=== PATIENT | female | born 1935 | race Asian ===

== ENCOUNTER 2016-10-10 00:41 | Inpatient (IN) | payer MEDICARE, MEDICAID ==
[~2016-10-10] VITALS: Ht 160 cm; Wt 68.0 kg
[2016-10-10] VITALS (8 sets, daily range): BP systolic 123–155; BP diastolic 56–77
[2016-10-10] MEDS ORDERED: MONTELUKAST SOD10 MG ORAL (00:53)
[2016-10-10] MEDS ORDERED: LABETALOL HCL100 MG ORAL (00:53)
[2016-10-10] MEDS ORDERED: VALSARTAN-HCTZ1 EAC1 ORAL (00:53)
[2016-10-10] MEDS ORDERED: AMLODIPINE BESYL5 MG ORAL (00:53)
[2016-10-10] MEDS ORDERED: DEXILANT60 MG ORAL (00:53)
[2016-10-10] MEDS ORDERED: ATORVASTATIN CA20 MG ORAL (00:53)
[2016-10-10] MEDS ORDERED: LEVOCETIRIZINE D5 MG ORAL (00:53)
[2016-10-10] MEDS ORDERED: PHENYTOIN SODI100 MG ORAL (00:53)
[2016-10-10] MEDS ORDERED: Solu-MEDROL 125mg Inj IVP ONE (01:00)
[2016-10-10] MEDS ORDERED: Albuterol ud Inhalation HHN ONE ×2 (01:00→06:00)
[2016-10-10] MEDS ORDERED: Ipratropium 0.02% Inh Soln 2.5ml UD HHN ONE (01:00)
--- NOTE | 2016-10-10 01:02 | Emergency Room Report ---
History of Present Illness General Chief Complaint: Upper Respiratory Illness Source: Patient Present Illness HPI The patient presents with one month of upper respiratory symptomatology. She's had a productive cough wheezing. She states she saw her Dr. last couple days. In addition to that she been vomiting and feels dehydrated this time. She denies any diabetes. She is not taking medication for the wheezing. She has not been eating and getting weak. No chest pain, palpitations, rashes. No headache. Some dizziness. No depression. H/O seizures. Allergies: Coded Allergies: VANCOMYCIN (Verified Allergy, Unknown, red eyes, itchying, 10/10/16) Patient History Past Medical History: see triage record Social History: Denies: smoking Social History Narrative from home Reviewed Nursing Documentation: PMH: Agreed, PSxH: Agreed Nursing Documentation-PMH Hx Hypertension: Yes Hx Asthma: Yes Hx Seizures: Yes Review of Systems All Other Systems: negative except mentioned in HPI Physical Exam Vital Signs Date Time Temp Pulse Resp B/P Pulse Ox O2 Delivery O2 Flow Rate FiO2 10/10/16 00:41 98.8 80 18 155/77 94 Room Air Sp02 EP Interpretation: reviewed, abnormal - Low as interpreted by me General Appearance: well appearing, no apparent distress, GCS 15 Head: normocephalic Eyes: bilateral eye PERRL, bilateral eye normal inspection ENT: dry mucus membranes Neck: supple Respiratory: chest non-tender, rales - L base, wheezing, expiration, inspiration Cardiovascular #1: regular rate, rhythm Cardiovascular #2: 2+ radial (R) Gastrointestinal: normal inspection, normal bowel sounds, non tender, no mass, non-distended Musculoskeletal: back normal, gait/station normal, normal range of motion Neurologic: alert, oriented x3, grossly normal Psychiatric: mood/affect normal Skin: normal inspection, warm/dry Medical Decision Making Diagnostic Impression: Primary Impression: Pneumonia with L effusion Additional Impressions: Bronchospasm Hypokalemia UTI (urinary tract infection) Qualified Codes: N30.00 - Acute cystitis without hematuria Dehydration ER Course The patient presents with several months worth of upper respiratory symptomatology. She has evidence of bronchospasm now. Differential includes pneumonia, COPD with exacerbation, asthma, bronchiolitis amongst others. Emergent evaluation is undertaken to exclude acute myocardial infarction. Vision said to be treated with breathing treatments Symmetrel and we will evaluate her for possible pneumonia. Will also check a dilantin level. Chest x-ray shows left-sided effusion and possible infiltrate. Patient will be treated with antibiotics. EKG is unremarkable. K low. Treated with oral potassium. Improved with treatment. Admit telemetry Dr. Ferrer. Wheezing again. Will repeat albuterol. Laboratory Tests Test 10/10/16 01:30 10/10/16 01:42 Urine Color Yellow Urine Appearance Clear Urine pH 5.0 (4.5-8.0) Urine Specific [place] 1.010 (1.005-1.035) Urine Protein Negative (NEGATIVE) Urine Glucose (UA) Negative (NEGATIVE) Urine Ketones Negative (NEGATIVE) Urine Occult Blood 1+ (NEGATIVE) H Urine Nitrite Negative (NEGATIVE) Urine Bilirubin Negative (NEGATIVE) Urine Urobilinogen Normal MG/DL (0.0-1.0) Urine Leukocyte Esterase 1+ (NEGATIVE) H Urine RBC 2-4 /HPF (0 - 2) H Urine WBC 5-10 /HPF (0 - 2) H Urine Squamous Epithelial Cells Many /LPF (NONE/OCC) H Urine Bacteria Few /HPF (NONE) White Blood Count 9.0 K/UL (4.8-10.8) Red Blood Count 4.26 M/UL (4.20-5.40) Hemoglobin 13.3 G/DL (12.0-16.0) Hematocrit 38.5 % (37.0-47.0) Mean Corpuscular Volume 91 FL (80-99) Mean Corpuscular Hemoglobin 31.1 PG (27.0-31.0) H Mean Corpuscular Hemoglobin Concent 34.4 G/DL (32.0-36.0) Red Cell Distribution Width 12.6 % (11.6-14.8) Platelet Count 173 K/UL (150-450) Mean Platelet Volume 7.5 FL (6.5-10.1) Neutrophils (%) (Auto) 69.0 % (45.0-75.0) Lymphocytes (%) (Auto) 19.9 % (20.0-45.0) L Monocytes (%) (Auto) 6.9 % (1.0-10.0) Eosinophils (%) (Auto) 4.0 % (0.0-3.0) H Basophils (%) (Auto) 0.3 % (0.0-2.0) Prothrombin Time 10.2 SEC (9.30-11.50) Prothrombin Time INR 1.0 (0.9-1.1) PTT 25 SEC (23-33) Sodium Level 134 mEQ/L (135-145) L Potassium Level 3.1 mEQ/L (3.4-4.9) L Chloride Level 92 mEQ/L (98-107) L Carbon Dioxide Level 26 mEQ/L (20-30) Anion Gap 16 (5-15) H Blood Urea Nitrogen 21 mg/dL (7-23) Creatinine 0.7 mg/dL (0.5-0.9) Estimate Glomerular Filtration Rate mL/min (>60) Glucose Level 104 mg/dL (74-106) Lactic Acid Level 1.40 mmol/L (0.66-2.22) Calcium Level 7.9 mg/dL (8.6-10.2) L Total Bilirubin 0.4 mg/dL (0.0-1.2) Aspartate Amino Transferase (AST) 16 U/L (5-40) Alanine Aminotransferase (ALT) 17 U/L (3-33) Alkaline Phosphatase 84 U/L (35-104) Total Creatine Kinase 202 U/L (26-140) H Troponin I < 0.30 ng/mL (<=0.30) Pro-B-Type Natriuretic Peptide 36 pg/mL (0-450) Total Protein 6.9 g/dL (6.6-8.7) Albumin 4.0 g/dL (3.5-5.2) Globulin 2.9 g/dL Albumin/Globulin Ratio 1.3 (1.0-2.7) Phenytoin (Dilantin) Level 9.4 ug/mL (10-20) L Microbiology Date/Time Source Procedure Growth Status 10/10/16 01:45 Nasal Nares Influenza Types A,B Antigen (LOWELL) - Final Complete EKG Diagnostic Results Rate: normal Rhythm: NSR ST Segments: no acute changes Rhythm Strip Diag. Results EP Interpretation: yes Rhythm: NSR, no PVC's, no ectopy Chest X-Ray Diagnostic Results EP Interpretation: Yes Findings: no pneumothorax, other - L effusion and possible infiltrate Number of Views: 1 Status: improved Reevaluation Impression Last Vital Signs Date Time Temp Pulse Resp B/P Pulse Ox O2 Delivery O2 Flow Rate FiO2 10/10/16 16:00 98.0 69 20 123/57 97 Room Air Disposition: ADMITTED INPATIENT Condition: Serious David Balderas M.D. Oct 10, 2016 01:02
[2016-10-10 01:50] LABS: APPEARANCE,URINE CLEAR; KETONES,URINE NEGATIVE (NEGATIVE); LEUKOCYTE ESTERASE ,URINE 1+ (NEGATIVE); NITRITE,URINE NEGATIVE (NEGATIVE); PROTEIN,URINE NEGATIVE (NEGATIVE); UROBILINOGEN,URINE NORMAL MG/DL (0.0-1.0)
[2016-10-10 01:51] LABS: BACTERIA,URINE FEW /HPF; SQUAMOUS EPITHELIAL CELL,UR MANY /LPF (NONE/OCC)
[2016-10-10] MEDS ORDERED: Azithromycin 500 MG in D5W 275 ML IVPB ONE (02:00)
[2016-10-10] MEDS ORDERED: cefTRIAXone 1 GM in NS 55 ML IVPB ONE (02:00)
[2016-10-10 02:06] LABS: BASOPHILS % (AUTO) 0.3 % (0.0-2.0); LYMPHOCYTES % (AUTO) 19.9 % (20.0-45.0); MEAN CORPUSCULAR HEMOGLOBIN 31.1 PG (27.0-31.0); MEAN CORPUSCULAR HGB CONC 34.4 G/DL (32.0-36.0); MEAN CORPUSCULAR VOLUME 91 FL (80-99); MEAN PLATELET VOLUME 7.5 FL (6.5-10.1); MONOCYTES % (AUTO) 6.9 % (1.0-10.0); PLATELET COUNT 173 K/UL (150-450); RED BLOOD COUNT 4.26 M/UL (4.20-5.40); RED CELL DISTRIBUTION WIDTH 12.6 % (11.6-14.8)
[2016-10-10 02:16] LABS: PROTHROMBIN TIME 10.2 SEC (9.30-11.50)
[2016-10-10 02:20] LABS: ALANINE AMINOTRANSFERASE 17 U/L (3-33); ALBUMIN/GLOBULIN RATIO 1.3 (1.0-2.7); ANION GAP 16 (5-15); ASPARTATE AMINO TRANSFERASE 16 U/L (5-40); CALCIUM 7.9 mg/dL (8.6-10.2); CARBON DIOXIDE 26 mEQ/L (20-30); CHLORIDE 92 mEQ/L (98-107); CREATININE 0.7 mg/dL (0.5-0.9); HEMOLYSIS 60; POTASSIUM 3.1 mEQ/L (3.4-4.9); SODIUM 134 mEQ/L (135-145); TOTAL PROTEIN 6.9 g/dL (6.6-8.7); TROPONIN I < 0.30 ng/mL (<=0.30)
[2016-10-10] MEDS ORDERED: KCl 10% 40mEq/30ml liquid ORAL STA (02:24)
[2016-10-10] MEDS ORDERED: Azithromycin Inj IV ONE (02:56)
[2016-10-10] MEDS ORDERED: Promethazine/Codeine 5ml UD ORAL PRN (08:30)
[2016-10-10] MEDS ORDERED: Nitroglycerin Subl 0.4mg tab (Bottle Of 25) SL PRN (08:30)
[2016-10-10] MEDS ORDERED: Miralax 17gm pkt ORAL PRN (08:30)
[2016-10-10] MEDS ORDERED: DuoNeb 0.5-3(2.5)mg/3ml neb HHN PRN (08:30)
[2016-10-10] MEDS ORDERED: Mylanta II UD 30ml ORAL PRN (08:30)
[2016-10-10] MEDS: Phenytoin 100mg cap ORAL SCH ×3 (09:11→17:10)
[2016-10-10] MEDS: Heparin 5000 units/ml inj SUBQ SCH ×2 (09:12→20:22)
--- NOTE | 2016-10-10 10:16 | Diagnostic Imaging Report ---
Indication: COPD shortness of breath Technique: One view of the chest Comparison: none Findings: The heart is mildly enlarged. There is some atelectasis at the right lung base. No definite acute infiltrates, effusions, congestion. Left basilar opacity likely reflects prominent pericardial fat. The aorta is tortuous calcified and slightly ectatic Impression: Bibasilar atelectasis No acute process otherwise. Borderline cardiomegaly
[2016-10-10] MEDS ORDERED: Cefepime HCl 1 GM in D5W 55 ML IV SCH (11:00)
[2016-10-10] MEDS ORDERED: Vancomycin 1250mg/D5W 275ml IVPB ONE ×2 (12:00)
--- NOTE | 2016-10-10 13:28 | Consultation ---
History of Present Illness General Date patient seen: Oct 10, 2016 Chief Complaint: Upper Respiratory Illness Referring physician: Dr. Ferrer Reason for Consultation: dyspnea Present Illness HPI 81 year old female with hx of Asthma, HTN, presented to ER with CC of increasing shortness of breath, pt has taken some antibiotics without any effect. She was diagnosed to have acute exacerbation of asthma and bronchitis and is admitted for further work up. Allergies: Coded Allergies: No Known Allergies (Unverified , 10/10/16) Medication History Scheduled Amlodipine Besylate* (Amlodipine Besylate*), 5 MG ORAL DAILY, (Reported) Atorvastatin Calcium* (Atorvastatin Calcium*), 20 MG ORAL BEDTIME, (Reported) Dexlansoprazole (Dexilant), 60 MG ORAL DAILY, (Reported) Labetalol Hcl* (Normodyne*), 100 MG ORAL EVERY 12 HOURS, (Reported) Levocetirizine Dihydrochloride (Levocetirizine Dihydrochloride), 5 MG ORAL DAILY , (Reported) Montelukast Sodium* (Montelukast Sodium*), 10 MG ORAL DAILY, (Reported) Phenytoin Sodium Extended* (Phenytoin Sodium Extended*), 100 MG ORAL THREE TIMES A DAY, (Reported) Valsartan/Hydrochlorothiazide 160-12.5 (Valsartan-Hctz 160-12.5 Mg Tab), 1 TAB ORAL DAILY, (Reported) Patient History Healthcare decision maker pt alert and oriented Resuscitation status Full Code Advanced Directive on File Past Medical/Surgical History Past Medical/Surgical History: (1) HTN (hypertension) (2) Asthma Review of Systems Constitutional: Reports: no symptoms Eye: Reports: no symptoms Respiratory: Reports: no symptoms Physical Exam General Appearance: WD/WN, no apparent distress Lines, tubes and drains: peripheral, central line HEENT: normocephalic, atraumatic Neck: non-tender, normal alignment Respiratory/Chest: chest wall non-tender, lungs clear Cardiovascular/Chest: normal peripheral pulses Abdomen: normal bowel sounds Genitourinary/Rectal: normal genital exam Extremities: normal range of motion Skin Exam: normal pigmentation Last 24 Hour Vital Signs Date Time Temp Pulse Resp B/P Pulse Ox O2 Delivery O2 Flow Rate FiO2 10/10/16 11:23 98.2 73 18 124/56 94 Room Air 10/10/16 10:18 72 16 98 Room Air 10/10/16 09:10 82 127/64 10/10/16 09:10 82 127/64 10/10/16 08:13 97.9 82 18 127/64 92 Room Air 10/10/16 07:35 98.2 75 16 130/62 96 Room Air 10/10/16 06:32 98.2 75 16 130/62 96 Room Air 10/10/16 06:30 72 16 95 Room Air 10/10/16 06:30 72 16 Room Air 10/10/16 05:00 97.8 75 20 128/61 96 Room Air 10/10/16 03:00 97.8 70 16 128/58 96 Room Air 10/10/16 01:30 69 16 96 Room Air 10/10/16 01:29 72 16 Room Air 10/10/16 01:06 69 16 96 Room Air 10/10/16 01:05 69 16 Room Air 10/10/16 01:00 98.8 68 18 155/77 94 Room Air 10/10/16 01:00 68 18 Room Air 10/10/16 00:41 98.8 80 18 155/77 94 Room Air Intake and Output 10/09/16 10/10/16 19:00 07:00 Intake Total 1330 ml Balance 1330 ml Intake IV Total 1330 ml Laboratory Tests Test 10/10/16 01:30 10/10/16 01:42 Urine Color Yellow Urine Appearance Clear Urine pH 5.0 (4.5-8.0) Urine Specific [place] 1.010 (1.005-1.035) Urine Protein Negative (NEGATIVE) Urine Glucose (UA) Negative (NEGATIVE) Urine Ketones Negative (NEGATIVE) Urine Occult Blood 1+ (NEGATIVE) H Urine Nitrite Negative (NEGATIVE) Urine Bilirubin Negative (NEGATIVE) Urine Urobilinogen Normal MG/DL (0.0-1.0) Urine Leukocyte Esterase 1+ (NEGATIVE) H Urine RBC 2-4 /HPF (0 - 2) H Urine WBC 5-10 /HPF (0 - 2) H Urine Squamous Epithelial Cells Many /LPF (NONE/OCC) H Urine Bacteria Few /HPF (NONE) White Blood Count 9.0 K/UL (4.8-10.8) Red Blood Count 4.26 M/UL (4.20-5.40) Hemoglobin 13.3 G/DL (12.0-16.0) Hematocrit 38.5 % (37.0-47.0) Mean Corpuscular Volume 91 FL (80-99) Mean Corpuscular Hemoglobin 31.1 PG (27.0-31.0) H Mean Corpuscular Hemoglobin Concent 34.4 G/DL (32.0-36.0) Red Cell Distribution Width 12.6 % (11.6-14.8) Platelet Count 173 K/UL (150-450) Mean Platelet Volume 7.5 FL (6.5-10.1) Neutrophils (%) (Auto) 69.0 % (45.0-75.0) Lymphocytes (%) (Auto) 19.9 % (20.0-45.0) L Monocytes (%) (Auto) 6.9 % (1.0-10.0) Eosinophils (%) (Auto) 4.0 % (0.0-3.0) H Basophils (%) (Auto) 0.3 % (0.0-2.0) Prothrombin Time 10.2 SEC (9.30-11.50) Prothromb Time International Ratio 1.0 (0.9-1.1) Activated Partial Thromboplast Time 25 SEC (23-33) Sodium Level 134 mEQ/L (135-145) L Potassium Level 3.1 mEQ/L (3.4-4.9) L Chloride Level 92 mEQ/L (98-107) L Carbon Dioxide Level 26 mEQ/L (20-30) Anion Gap 16 (5-15) H Blood Urea Nitrogen 21 mg/dL (7-23) Creatinine 0.7 mg/dL (0.5-0.9) Estimat Glomerular Filtration Rate mL/min (>60) Glucose Level 104 mg/dL (74-106) Lactic Acid Level 1.40 mmol/L (0.66-2.22) Calcium Level 7.9 mg/dL (8.6-10.2) L Total Bilirubin 0.4 mg/dL (0.0-1.2) Aspartate Amino Transf (AST/SGOT) 16 U/L (5-40) Alanine Aminotransferase (ALT/SGPT) 17 U/L (3-33) Alkaline Phosphatase 84 U/L (35-104) Total Creatine Kinase 202 U/L (26-140) H Troponin I < 0.30 ng/mL (<=0.30) Pro-B-Type Natriuretic Peptide 36 pg/mL (0-450) Total Protein 6.9 g/dL (6.6-8.7) Albumin 4.0 g/dL (3.5-5.2) Globulin 2.9 g/dL Albumin/Globulin Ratio 1.3 (1.0-2.7) Phenytoin (Dilantin) Level 9.4 ug/mL (10-20) L Microbiology Date/Time Source Procedure Growth Status 10/10/16 01:45 Nasal Nares Influenza Types A,B Antigen (LOWELL) - Final Complete Height (Feet): 5 Height (Inches): 3.00 Weight (Pounds): 150 Medications Current Medications Medications (Trade) Dose Ordered Sig/[place] Route PRN Reason Start Time Stop Time Status Last Admin Dose Admin Acetaminophen (Tylenol) 650 mg Q4H PRN ORAL fever 10/10/16 08:30 11/09/16 08:29 Al Hydroxide/Mg Hydroxide (Mylanta II) 30 ml Q6H PRN ORAL dyspepsia 10/10/16 08:30 11/09/16 08:29 Albuterol/ Ipratropium 3 ml 3 ml EVERY 4 HOURS PRN HHN Shortness of Breath 10/10/16 08:30 10/15/16 08:29 Amlodipine Besylate (Norvasc) 5 mg DAILY ORAL 10/10/16 09:00 11/09/16 08:59 10/10/16 09:10 Atorvastatin Calcium (Lipitor) 20 mg BEDTIME ORAL 10/10/16 21:00 11/09/16 20:59 Cefepime HCl/ Dextrose (Maxipime/D5W) 55 ml @ 110 mls/hr EVERY 12 HOURS IV 10/10/16 11:00 10/17/16 10:59 10/10/16 11:39 Dextrose/ Electrolytes 1,000 ml @ 50 mls/hr Q20H IV 10/10/16 10:00 11/09/16 09:59 10/10/16 09:51 Heparin Sodium (Porcine) (Heparin 5000 units/ml) 5,000 units EVERY 12 HOURS SUBQ 10/10/16 09:00 11/09/16 08:59 10/10/16 09:12 Labetalol HCl (Normodyne) 100 mg EVERY 12 HOURS ORAL 10/10/16 09:00 11/09/16 08:59 10/10/16 09:10 Nitroglycerin (Ntg) 0.4 mg Q5M PRN SL Prn Chest Pain 10/10/16 08:30 11/09/16 08:29 Ondansetron HCl (Zofran) 4 mg Q6H PRN IVP Nausea & Vomiting 10/10/16 08:30 11/09/16 08:29 Phenytoin (Dilantin) 100 mg THREE TIMES A DAY ORAL 10/10/16 09:00 11/09/16 08:59 10/10/16 12:35 Polyethylene Glycol (Miralax) 17 gm DAILYPRN PRN ORAL Constipation 10/10/16 08:30 11/09/16 08:29 Promethazine HCl/ Codeine (Phenergan with Codeine) 5 ml Q4H PRN ORAL For Cough 10/10/16 08:30 11/09/16 08:29 Temazepam (Restoril) 15 mg HSPRN PRN ORAL Insomnia 10/10/16 08:30 10/17/16 08:29 Vancomycin HCl 1.25 gm/Dextrose 275 ml @ 183.333 mls/hr ONCE ONCE IVPB 10/10/16 12:00 10/10/16 13:29 10/10/16 12:32 Vancomycin HCl 1 ea 1 ea DAILY PRN MISC Per rx protocol 10/10/16 08:30 11/09/16 08:29 Vancomycin HCl/ Dextrose (Vancomycin/D5W) 275 ml @ 183.708 mls/hr Q24H IVPB 10/11/16 10:00 10/16/16 09:59 Assessment/Plan Problem List: (1) Acute asthma exacerbation ICD Codes: J45.901 - Unspecified asthma with (acute) exacerbation SNOMED: 873862197 (2) Bronchitis ICD Codes: J40 - Bronchitis, not specified as acute or chronic SNOMED: 43519944 (3) HTN (hypertension) ICD Codes: I10 - Essential (primary) hypertension SNOMED: 69837070 Assessment/Plan respiratory treatment check sputum Iv steroids IV antibiotics monitor BP dvt prophylaxis DEEPAK VALERIO Oct 10, 2016 13:28
[2016-10-10] MEDS: DiphenhydrAMINE 50mg/ml Inj IVP PRN (15:09)
--- NOTE | 2016-10-10 16:10 | History & Physical ---
History and Physical History & Physicial H&P dictated # [id number] JESS LONG M.D. Oct 10, 2016 16:10
[2016-10-10] MEDS ORDERED: Solu-MEDROL 125mg Inj IVP SCH (18:00)
[2016-10-10] MEDS: Albuterol ud Inhalation HHN SCH (19:45)
[2016-10-10] MEDS ORDERED: Atorvastatin 20mg tab ORAL SCH (21:00)
--- NOTE | 2016-10-10 21:19 | History and Physical Report ---
DATE OF ADMISSION: 10/10/2016 REASON FOR ADMISSION: Shortness of breath/upper respiratory infection. HISTORY OF PRESENT ILLNESS: This is an 81-year-old female with history of asthma and hemorrhagic CVA, who presented to the emergency room with shortness of breath, productive cough, and wheezing. The patient states that over the last month her asthma has been getting worse. She has a lot of allergic reactions including itchiness and congestion. She states that yesterday she was having worsening cough with shortness of breath. She does not take any albuterol for her asthma. She denies any chest pain, palpitations, or rashes. She does complain of shortness of breath. Upon arrival to the emergency room, she had a chest x-ray does nonrevealing. She was admitted for asthma exacerbation, started initially on vancomycin and cefepime. However, developed allergic reaction, so vancomycin was held. PAST MEDICAL HISTORY: Includes hemorrhagic CVA, hypertension, hyperlipidemia, GERD, asthma, and hemorrhoids. PAST SURGICAL HISTORY: Appendectomy. MEDICATIONS: Include amlodipine 5 mg daily, atorvastatin 20 mg daily, labetalol 100 mg p.o. b.i.d., Dilantin 100 mg t.i.d., valsartan/hydrochlorothiazide 160/12.5 mg, Dexilant 60 mg daily, and montelukast 10 mg daily. SOCIAL HISTORY: The patient does not smoke, drink alcohol, or use any drugs. FAMILY HISTORY: Noncontributory. PHYSICAL EXAMINATION: VITAL SIGNS: Temperature today is 98.2 degrees, pulse 73, respiratory rate 18, blood pressure 124/56, and O2 saturation 94% on room air. GENERAL: No acute distress. The patient is alert, awake, and oriented. She is coughing. HEENT: Normocephalic/atraumatic. NECK: Supple. No JVD. LUNGS: Bilateral mild wheezing expiratory. No rhonchi, crackles, rales. CARDIOVASCULAR: Regular rate and rhythm. Normal S1, S2. ABDOMEN: Soft, nontender, and nondistended. EXTREMITIES: A+1 lower extremity edema. No clubbing or cyanosis. SKIN: The patient has onychomycosis of the toenails. There is no rash. NEUROLOGIC: The patient move all extremities without any focal deficits. PSYCHIATRIC: Appropriate mood and affect. LABORATORY AND DIAGNOSTIC DATA: Chest x-ray shows no infiltrate. CBC, white count is 9, hemoglobin 13.3, and platelet count 173,000. Chemistry, sodium 134, potassium 3.1, chloride 92, CO2 26, anion gap 16, BUN 21, and creatinine 0.7. LFTs are within normal limits. Phenytoin 9.4. UA is negative. Influenza nares is negative. ASSESSMENT AND PLAN: 1. Asthma exacerbation. 2. History of cerebrovascular accident, hemorrhagic. 3. Hypertension. 4. Hyperlipidemia. 5. Gastroesophageal reflux disease. 6. Hemorrhoids. PLAN: 1. Admit the patient to inpatient telemetry for today and possibly med/surg tomorrow. 2. Influenza screen was negative. 3. We will stop her cefepime and vancomycin even there is no clear infiltrate in her lungs are all wheezy. She has no white count or fever. Therefore, I doubt patient has pneumonia. This is most likely viral in etiology. 4. Solu-Medrol 60 mg IV daily. 5. Pulmonary consult with Dr. Juares. 6. Albuterol nebulizers q.6 hours PRN sob 7. Resume home medications. 8. Podiatry to see the patient for onychomycosis. TIME SPENT: Time spent on dictation greater than 35 minutes. David Ferrer MD DR: Hayden JOB#: [id number] CC: RANULFO
[2016-10-11 00:33] VITALS: BP 144/78
[2016-10-11 04:15] VITALS: BP 143/76
[2016-10-11] MEDS ORDERED: PHENYTOIN SODI100 MG ORAL ×2 (07:30)
[2016-10-11] MEDS ORDERED: VALSARTAN-HCTZ1 EAC1 ORAL (07:30)
[2016-10-11] MEDS ORDERED: LYRICA50 MG ORAL (07:30)
[2016-10-11] MEDS ORDERED: DEXILANT60 MG ORAL (07:30)
[2016-10-11] MEDS: Albuterol ud Inhalation HHN SCH ×2 (07:55→13:24)
[2016-10-11 08:05] VITALS: BP 141/79
[2016-10-11] MEDS: Phenytoin 100mg cap ORAL SCH ×2 (08:38→14:00)
[2016-10-11] MEDS: Heparin 5000 units/ml inj SUBQ SCH (08:39)
[2016-10-11] MEDS ORDERED: Solu-MEDROL 125mg Inj IVP SCH (09:00)
[2016-10-11] MEDS ORDERED: Vancomycin 1gm/D5W 275ml IVPB SCH ×2 (10:00)
[2016-10-11] MEDS: DiphenhydrAMINE 50mg/ml Inj IVP PRN (10:32)
[2016-10-11 11:29] VITALS: BP 151/93
--- NOTE | 2016-10-11 12:16 | Pulmonology Progress Note ---
Assessment/Plan Problems: (1) Acute asthma exacerbation (2) Bronchitis (3) HTN (hypertension) Assessment/Plan improving wants to go home couldn't sleep well last night less cough, less phlegmn Subjective ROS Limited/Unobtainable: No Interval Events: less short of breath Allergies: Coded Allergies: VANCOMYCIN (Verified Allergy, Unknown, red eyes, itchying, 10/10/16) Objective Last 24 Hour Vital Signs Date Time Temp Pulse Resp B/P Pulse Ox O2 Delivery O2 Flow Rate FiO2 10/11/16 11:29 97.9 70 18 151/93 93 Room Air 10/11/16 08:38 73 141/79 10/11/16 08:38 73 141/79 10/11/16 08:05 97.9 73 18 141/79 95 Room Air 10/11/16 08:00 74 10/11/16 07:57 87 18 100 Room Air 10/11/16 07:46 84 18 95 Room Air 10/11/16 04:15 97.2 68 20 143/76 95 Room Air 10/11/16 04:00 74 10/11/16 00:33 97.9 71 20 144/78 95 Room Air 10/11/16 00:00 71 10/10/16 20:20 74 115/62 10/10/16 20:00 98.1 68 20 127/60 96 Room Air 10/10/16 20:00 68 10/10/16 19:48 69 18 100 Room Air 10/10/16 19:47 71 18 Room Air 10/10/16 19:47 65 18 99 Room Air 10/10/16 16:00 70 10/10/16 16:00 98.0 69 20 123/57 97 Room Air Intake and Output 10/10/16 10/11/16 19:00 07:00 Intake Total 1076.6 ml 810 ml Balance 1076.6 ml 810 ml Intake Oral 200 ml 260 ml IV Total 876.6 ml 550 ml # Voids 3 General Appearance: WD/WN HEENT: normocephalic, atraumatic Respiratory/Chest: chest wall non-tender, lungs clear Breasts: no masses Cardiovascular: normal peripheral pulses, normal rate Abdomen: normal bowel sounds, soft, non tender Genitourinary: normal external genitalia Extremities: no clubbing Neurologic/Psychiatric: 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 grossly normal, no motor/sensory deficits Microbiology Date/Time Source Procedure Growth Status 10/10/16 01:45 Blood Blood Culture - Preliminary NO GROWTH AFTER 24 HOURS Resulted 10/10/16 01:45 Blood Blood Culture - Preliminary NO GROWTH AFTER 24 HOURS Resulted 10/10/16 08:45 Sputum Gram Stain - Final Resulted 10/10/16 08:45 Sputum Culture - Preliminary Gram Negative Bacillus 1 Resulted 10/10/16 01:45 Nasal Nares Influenza Types A,B Antigen (LOWELL) - Final Complete Laboratory Tests 10/11/16 04:30: Urine Legionella Antigen [Pending] Current Medications Medications (Trade) Dose Ordered Sig/[place] Route PRN Reason Start Time Stop Time Status Last Admin Dose Admin Acetaminophen (Tylenol) 650 mg Q4H PRN ORAL fever 10/10/16 08:30 11/09/16 08:29 Al Hydroxide/Mg Hydroxide (Mylanta II) 30 ml Q6H PRN ORAL dyspepsia 10/10/16 08:30 11/09/16 08:29 10/11/16 04:16 Albuterol Sulfate (Proventil) 2.5 mg TIDRT HHN 10/10/16 19:00 10/15/16 18:59 10/11/16 07:55 Albuterol/ Ipratropium (DuoNeb 0.5-3(2.5)mg/3ml) 3 ml EVERY 4 HOURS PRN HHN Shortness of Breath 10/10/16 08:30 10/15/16 08:29 Amlodipine Besylate (Norvasc) 5 mg DAILY ORAL 10/10/16 09:00 11/09/16 08:59 10/11/16 08:38 Atorvastatin Calcium (Lipitor) 20 mg BEDTIME ORAL 10/10/16 21:00 11/09/16 20:59 10/10/16 20:20 Azithromycin (Zithromax) 500 mg QPM ORAL 10/11/16 16:30 10/18/16 16:29 Dextrose/ Electrolytes (D5NS W/KCl 20meq 1000ml) 1,000 ml @ 50 mls/hr Q20H IV 10/10/16 10:00 11/09/16 09:59 10/11/16 06:31 Diphenhydramine HCl (Benadryl) 25 mg Q6H PRN IVP Itching 10/10/16 15:00 11/09/16 14:59 10/11/16 10:32 Heparin Sodium (Porcine) (Heparin 5000 units/ml) 5,000 units EVERY 12 HOURS SUBQ 10/10/16 09:00 11/09/16 08:59 10/11/16 08:39 Labetalol HCl (Normodyne) 100 mg EVERY 12 HOURS ORAL 10/10/16 09:00 11/09/16 08:59 10/11/16 08:38 Methylprednisolone Sodium Succinate (Solu-MEDROL) 60 mg DAILY IVP 10/11/16 09:00 11/10/16 08:59 10/11/16 08:37 Nitroglycerin (Ntg) 0.4 mg Q5M PRN SL Prn Chest Pain 10/10/16 08:30 11/09/16 08:29 Ondansetron HCl (Zofran) 4 mg Q6H PRN IVP Nausea & Vomiting 10/10/16 08:30 11/09/16 08:29 Phenytoin (Dilantin) 100 mg THREE TIMES A DAY ORAL 10/10/16 09:00 11/09/16 08:59 10/11/16 08:38 Polyethylene Glycol (Miralax) 17 gm DAILYPRN PRN ORAL Constipation 10/10/16 08:30 11/09/16 08:29 Promethazine HCl/ Codeine (Phenergan with Codeine) 5 ml Q4H PRN ORAL For Cough 10/10/16 08:30 11/09/16 08:29 Temazepam 15 mg 15 mg HSPRN PRN ORAL Insomnia 10/10/16 08:30 10/17/16 08:29 DEEPAK VALERIO Oct 11, 2016 12:16
[2016-10-11] MEDS ORDERED: PREDNISONE5 M4 PO (12:18)
--- NOTE | 2016-10-11 13:14 | Discharge Summary ---
Discharge Summary Hospital Course Date of Admission Oct 10, 2016 at 01:58 Date of Discharge Admitting Diagnosis pneumonia HPI Megan Harmon is a 81 year old female who was admitted on Oct 10, 2016 at 01:58 for Asthma exacerbation [id number] Discharge Condition Upon Discharge: stable Discharge Disposition Patient was discharged to HOME Discharge Diagnoses: JESS LONG M.D. Oct 11, 2016 13:14
[2016-10-11] MEDS ORDERED: Azithromycin 250mg tab ORAL SCH (16:30)
--- NOTE | 2016-10-11 20:19 | Cardiology Report ---
APPROVED REPORT EKG Measurement Heart [id number] [place] [id number] Normal sinus rhythm Normal ECG
--- NOTE | 2016-10-12 03:37 | Discharge Summary ---
DATE OF ADMISSION: 10/10/2016 DATE OF DISCHARGE: 10/11/2016 REASON FOR ADMISSION: Asthma exacerbation. PROCEDURES DONE HERE: None. SIGNIFICANT FINDINGS: None. BRIEF HOSPITAL COURSE AND SUMMARY: This is an 81-year-old female with history of asthma and hemorrhagic CVA who presented to the emergency room with shortness of breath, cough, and wheezing. Her chest x-ray is unrevealing. She was started on Solu-Medrol as well as azithromycin. She initially had vancomycin, which she had allergic reaction to. Her shortness of breath has significantly improved. She is stable for discharge. DISCHARGE CONDITION: Stable. DISCHARGE INSTRUCTIONS: The patient to follow up with PCP. The patient to return to the hospital for worsening condition. The patient to ambulate as tolerated. The patient to be on albuterol as well as prednisone taper as well as Protonix. DISCHARGE DIAGNOSES: 1. Asthma exacerbation. 2. History of cerebrovascular accident. 3. Hypertension. 4. Hyperlipidemia. 5. Gastroesophageal reflux disease. TIME SPENT ON DISCHARGE: Greater than 35 minutes. David Ferrer MD DR: DIANA JOB#: [id number] CC:
== END 2016-10-11 14:58 | disposition home or self-care (01) | DRG 203 ==
LOC: EDBD 00:41 → EMR 01:16 → 2E 01:58 → EDBEDREQ 05:47 → 2E 09:14
DX: J45.901 Unspecified asthma with (acute) exacerbation (principal); E86.0 Dehydration; E87.6 Hypokalemia; K21.9 Gastro-esophageal reflux disease without esophagitis; I10 Essential (primary) hypertension; E78.5 Hyperlipidemia, unspecified; B35.1 Tinea unguium; Z86.73 Personal history of transient ischemic attack (TIA), and cerebral infarction without residual deficits; T78.40XA Allergy, unspecified, initial encounter; T36.8X5A Adverse effect of other systemic antibiotics, initial encounter; Y92.238 Other place in hospital as the place of occurrence of the external cause
CPT/HCPCS: 36415; 71010; 80053; 80185; 81003; 82164; 82550; 83605; 83880; 84484; 85025; 85610; 85730; 86710; 87040; 87070; 87181; 87205; 93005; 94640; 94664

== ENCOUNTER 2017-09-27 17:52 | Emergency (ER) | payer MEDICARE, MEDICAID ==
[~2017-09-27] VITALS: Ht 160 cm; Wt 59.0 kg
[~2017-09-27 17:52] MED LIST: AMLODIPINE BESYL5 MG ORAL; ATORVASTATIN CA20 MG ORAL; DEXILANT60 MG ORAL; LABETALOL HCL100 MG ORAL; LEVOCETIRIZINE D5 MG ORAL; LYRICA50 MG ORAL; MONTELUKAST SOD10 MG ORAL; PHENYTOIN SODI100 MG ORAL; PREDNISONE5 M4 PO; VALSARTAN-HCTZ1 EAC1 ORAL
[2017-09-27 18:15] VITALS: BP 147/76
[2017-09-27] MEDS ORDERED: Ipratropium 0.02% Inh Soln 2.5ml UD HHN ONE (18:30)
[2017-09-27] MEDS ORDERED: Albuterol ud Inhalation HHN ONE ×2 (18:30→20:15)
--- NOTE | 2017-09-27 18:34 | Emergency Room Report ---
History of Present Illness General Chief Complaint: Upper Respiratory Illness Source: Patient, EMS Present Illness HPI 82-year-old female but in by ambulance for shortness of breath for one day, history of asthma. Patient was using home nebulizer medication without much improvement. Denies recent fever, chills, chest pain. Allergies: Coded Allergies: VANCOMYCIN (Verified Allergy, Unknown, red eyes, itchying, 10/10/16) Patient History Past Medical History: asthma Past Surgical History: none Pertinent Family History: none Social History: Denies: smoking, alcohol use, drug use Now: No Immunizations: UTD Reviewed Nursing Documentation: PMH: Agreed, PSxH: Agreed Nursing Documentation-PMH Past Medical History: No History, Except For Hx Hypertension: Yes Hx Asthma: Yes Hx Cancer: No Hx Gastrointestinal Problems: No Hx Cerebrovascular Accident: Yes Hx Seizures: Yes Review of Systems All Other Systems: negative except mentioned in HPI Physical Exam Vital Signs Date Time Temp Pulse Resp B/P (MAP) Pulse Ox O2 Delivery O2 Flow Rate FiO2 09/27/17 17:49 98.4 90 22 150/90 100 Room Air Sp02 EP Interpretation: reviewed, normal General Appearance: normal inspection, well appearing, no apparent distress, alert, GCS 15, non-toxic Head: normocephalic, atraumatic Eyes: bilateral eye PERRL, bilateral eye EOMI ENT: normal ENT inspection, hearing grossly normal, normal pharynx, no angioedema, normal voice, TMs + canals normal, uvula midline, moist mucus membranes Neck: normal inspection, full range of motion, supple, thyroid normal, no meningismus, no bony tend Respiratory: normal inspection, lungs clear, normal breath sounds, no rhonchi, no respiratory distress, no retraction, no accessory muscle use, decreased breath sounds, speaking full sentences, wheezing Cardiovascular #1: regular rate, rhythm, no edema, no JVD, normal capillary refill Gastrointestinal: normal inspection, normal bowel sounds, non tender, soft, no mass, no peritonitis, non-distended, no guarding, no hernia, no pulsatile mass Genitourinary: no CVA tenderness Musculoskeletal: normal inspection, back normal, normal range of motion, no calf tenderness, pelvis stable, Sea's Sign negative Neurologic: normal inspection, alert, oriented x3, responsive, insurance investigator III-XII nml as tested, motor strength/tone normal, cerebellar normal, normal gait, speech normal Psychiatric: normal inspection, judgement/insight normal, mood/affect normal, no suicidal/homicidal ideation, no delusions Skin: normal inspection, normal color, no rash Lymphatic: normal inspection, no adenopathy Medical Decision Making Diagnostic Impression: Primary Impression: Acute asthma exacerbation Qualified Codes: J45.21 - Mild intermittent asthma with (acute) exacerbation Additional Impression: Hypokalemia ER Course patient with mild acute asthma exacerbation Vital signs stable, afebrile, not tachypnea, not tachycardic, not hypoxic Chest x-ray negative for pneumonia Improved after duo nebs and prednisone no leukocytosis or evidence of acute pneumonia mild hypokalemia was repleted orally serial vital signs stable Likely acute bronchitis as exacerbating asthma Refilled medications ER course: Patient has remained stable during ED stay. Disposition: Patient is to be discharged to home. Prescriptions given are ventolin, prednisone Patient is instructed to follow up with their primary care doctor within 1-2 days. Strict return precautions discussed with patient such as fever, chills, worsening/severe pain, nausea, vomiting, which may indicate severe illness. Patient verbalizes understanding and agrees with plan. Please note that this Emergency Department Report was dictated using [employer] developer technology software, occasionally this can lead to erroneous entry secondary to interpretation by the dictation equipment Rhythm Strip Diag. Results EP Interpretation: yes Rate: 69 Rhythm: NSR, no PVC's, no ectopy Chest X-Ray Diagnostic Results Chest X-Ray Diagnostic Results : Chest X-Ray Ordered: Yes # of Views/Limited/Complete: 1 View Indication: Shortness of Breath EP Interpretation: Yes Interpretation: no consolidation, no effusion, no pneumothorax, no acute cardiopulmonary disease Impression: No acute disease Electronically Signed by: Dr Cristina Sharif MD Last Vital Signs Date Time Temp Pulse Resp B/P (MAP) Pulse Ox O2 Delivery O2 Flow Rate FiO2 09/27/17 18:30 76 25 Room Air 09/27/17 17:49 98.4 150/90 100 Status: improved Disposition: HOME, SELF-CARE Scripts Prednisone* (PREDNISONE*) 20 Mg Tablet 20 MG ORAL DAILY for 3 Days, #6 TAB 0 Refills Prov: CRISTINA SHARIF M.D. 09/27/17 Albuterol Sulfate (VENTOLIN HFA) 18 Gm Hfa.aer.ad 1 PUFF INH EVERY 6 HOURS for cough, SOB, #18 GM 0 Refills Prov: CRISTINA SHARIF M.D. 09/27/17 CRISTINA SHARIF M.D. Sep 27, 2017 18:34
[2017-09-27 19:20] LABS: BASOPHILS % (AUTO) 0.5 % (0.0-2.0); EOSINOPHILS % (AUTO) 12.5 % (0.0-3.0); HEMOGLOBIN 13.3 G/DL (12.0-16.0); LYMPHOCYTES % (AUTO) 29.3 % (20.0-45.0); MEAN CORPUSCULAR VOLUME 90 FL (80-99); MONOCYTES % (AUTO) 8.1 % (1.0-10.0); NEUTROPHILS % (AUTO) 49.6 % (45.0-75.0); PLATELET COUNT 222 K/UL (150-450); RED BLOOD COUNT 4.34 M/UL (4.20-5.40); RED CELL DISTRIBUTION WIDTH 11.9 % (11.6-14.8); WHITE BLOOD COUNT 9.3 K/UL (4.8-10.8)
[2017-09-27 19:22] LABS: ANION GAP 8 mmol/L (5-15); BLOOD UREA NITROGEN 15 mg/dL (7-18); CALCIUM 9.1 MG/DL (8.5-10.1); CARBON DIOXIDE 31 MMOL/L (21-32); CHLORIDE 98 MMOL/L (98-107); CREATININE 0.7 MG/DL (0.55-1.30); POTASSIUM 3.3 MMOL/L (3.5-5.1); SODIUM 137 MMOL/L (136-145)
[2017-09-27 19:37] LABS: ALANINE AMINOTRANSFERASE 20 U/L (12-78); ALBUMIN 3.5 G/DL (3.4-5.0); ALBUMIN/GLOBULIN RATIO 0.9 (1.0-2.7); ALKALINE PHOSPHATASE 74 U/L (46-116); ASPARTATE AMINO TRANSFERASE 12 U/L (15-37); BILIRUBIN,TOTAL 0.2 MG/DL (0.2-1.0); CKMB 2.2 NG/ML (0.0-3.6); CREATINE KINASE 228 U/L (26-308)
[2017-09-27] MEDS ORDERED: VENTOLIN HFA18 GM INH (20:00)
[2017-09-27] MEDS ORDERED: PREDNISONE20 MG ORAL (20:00)
[2017-09-27 21:05] VITALS: BP 145/78
[2017-09-27 21:25] VITALS: BP 145/78
--- NOTE | 2017-09-28 09:05 | Diagnostic Imaging Report ---
Indication: Reason For Exam: SOB Technique: One view of the chest Comparison: 10/10/2016 Findings: No acute infiltrates, effusions, or congestion. Tortuous calcified aorta. Normal heart size. Upper mediastinum unremarkable. No significant interim change Impression: No acute process.
--- NOTE | 2017-10-08 16:57 | Cardiology Report ---
APPROVED REPORT EKG Measurement Heart [id number] [id number] Normal sinus rhythm with sinus arrhythmia Septal infarct, age undetermined Abnormal ECG
== END 2017-09-27 21:25 | disposition home or self-care (01) ==
LOC: EDBD 17:52 → EMR 18:25
DX: J45.901 Unspecified asthma with (acute) exacerbation (principal); E87.6 Hypokalemia; I10 Essential (primary) hypertension; Z86.73 Personal history of transient ischemic attack (TIA), and cerebral infarction without residual deficits
CPT/HCPCS: 36415; 71045; 80053; 82550; 82553; 84484; 85025; 93005; 94640; 94664; 99284; J7512; J8499

== ENCOUNTER 2017-10-05 09:56 | Inpatient (IN) | payer MEDICARE, MEDICAID ==
[~2017-10-05] VITALS: Ht 160 cm; Wt 66.7 kg
[~2017-10-05 09:56] MED LIST changes: +PREDNISONE20 MG ORAL; +VENTOLIN HFA18 GM INH
[2017-10-05] MEDS: Ipratropium 0.02% Inh Soln 2.5ml UD HHN SCH ×3 (10:08→10:28)
[2017-10-05] MEDS: Albuterol ud Inhalation HHN SCH ×3 (10:08→10:28)
[2017-10-05 10:45] LABS: EOSINOPHILS % (AUTO) 8.8 % (0.0-3.0); HEMATOCRIT 41.6 % (37.0-47.0); HEMOGLOBIN 14.2 G/DL (12.0-16.0); LYMPHOCYTES % (AUTO) 24.6 % (20.0-45.0); MEAN CORPUSCULAR VOLUME 91 FL (80-99); MONOCYTES % (AUTO) 8.7 % (1.0-10.0); PLATELET COUNT 242 K/UL (150-450); RED BLOOD COUNT 4.55 M/UL (4.20-5.40); RED CELL DISTRIBUTION WIDTH 12.5 % (11.6-14.8); WHITE BLOOD COUNT 10.1 K/UL (4.8-10.8)
[2017-10-05 11:08] LABS: ANION GAP 5 mmol/L (5-15); BLOOD UREA NITROGEN 14 mg/dL (7-18); CALCIUM 8.9 MG/DL (8.5-10.1); CARBON DIOXIDE 30 MMOL/L (21-32); CHLORIDE 99 MMOL/L (98-107); CREATININE 0.5 MG/DL (0.55-1.30); POTASSIUM 3.8 MMOL/L (3.5-5.1); SODIUM 134 MMOL/L (136-145)
[2017-10-05 11:24] LABS: ALANINE AMINOTRANSFERASE 24 U/L (12-78); ALBUMIN 3.6 G/DL (3.4-5.0); ALBUMIN/GLOBULIN RATIO 0.9 (1.0-2.7); ALKALINE PHOSPHATASE 93 U/L (46-116); ASPARTATE AMINO TRANSFERASE 17 U/L (15-37); BILIRUBIN,TOTAL 0.5 MG/DL (0.2-1.0); CKMB 1.8 NG/ML (0.0-3.6); CREATINE KINASE 198 U/L (26-308)
[2017-10-05 11:43] VITALS: BP_SYST 106; BP_DIAS 25; BP_DIAS 52
--- NOTE | 2017-10-05 12:16 | Diagnostic Imaging Report ---
Indication: Dyspnea Technique: XRAY Chest 1v Comparison: 09/27/2017 Findings: Heart size and mediastinal contours are stable. Atherosclerotic calcification and tortuosity of the aorta again noted. There is no definite focal airspace consolidation, pleural effusion or pneumothorax. Nodular densities in the left upper lung may be related to overlying ribs versus calcified granulomas. Remote fracture deformities of some right-sided ribs. No acute osseous abnormality is seen. Impression: No radiographic evidence of acute cardiopulmonary disease. No significant change compared to the prior exam. Stable nodular densities in the left upper lung may be related to overlying ribs or calcified granulomas.
--- NOTE | 2017-10-05 12:31 | Emergency Room Report ---
History of Present Illness General Chief Complaint: Dyspnea/Respdistress Source: Patient, Medical Record, EMS Present Illness HPI 82-year-old female brought in by EMS for shortness of breath since this morning per EMS, patient had reduced air movement and wheezing on exam Was given an albuterol and Epi injection prior to arrival with improvement She has history of asthma states home medications were working Denies recent cough, fever chills Allergies: Coded Allergies: VANCOMYCIN (Verified Allergy, Unknown, red eyes, itchying, 10/10/16) Patient History Past Medical History: asthma Past Surgical History: none Pertinent Family History: none Social History: Denies: smoking, alcohol use, drug use Now: No Immunizations: UTD Reviewed Nursing Documentation: PMH: Agreed, PSxH: Agreed Nursing Documentation-PMH Hx Hypertension: Yes Hx Asthma: Yes Hx Cancer: No Hx Gastrointestinal Problems: No Hx Cerebrovascular Accident: Yes Hx Seizures: Yes Review of Systems All Other Systems: negative except mentioned in HPI Physical Exam Vital Signs Date Time Temp Pulse Resp B/P (MAP) Pulse Ox O2 Delivery O2 Flow Rate FiO2 10/05/17 09:50 72 20 98 Facial 15.0 35 10/05/17 09:52 98.1 155/80 Sp02 EP Interpretation: reviewed, normal General Appearance: normal inspection, well appearing, alert, GCS 15, non-toxic , mild distress Head: normocephalic, atraumatic Eyes: bilateral eye PERRL, bilateral eye EOMI ENT: normal ENT inspection, hearing grossly normal, normal pharynx, no angioedema, normal voice, TMs + canals normal, uvula midline, moist mucus membranes Neck: normal inspection, full range of motion, supple, thyroid normal, no meningismus, no bony tend Respiratory: normal inspection, no retraction, no accessory muscle use, speaking full sentences, wheezing Cardiovascular #1: regular rate, rhythm, no edema, no JVD, normal capillary refill Gastrointestinal: normal inspection, normal bowel sounds, non tender, soft, no mass, no peritonitis, non-distended, no guarding, no hernia, no pulsatile mass Genitourinary: no CVA tenderness Musculoskeletal: normal inspection, back normal, normal range of motion, no calf tenderness, pelvis stable, Sea's Sign negative Neurologic: normal inspection, alert, oriented x3, responsive, sorter upholstery parts III-XII nml as tested, motor strength/tone normal, cerebellar normal, normal gait, speech normal Psychiatric: normal inspection, judgement/insight normal, mood/affect normal, no suicidal/homicidal ideation, no delusions Skin: normal inspection, normal color, no rash Lymphatic: normal inspection, no adenopathy Medical Decision Making Diagnostic Impression: Primary Impression: Acute asthma exacerbation Qualified Codes: J45.41 - Moderate persistent asthma with (acute) exacerbation ER Course 82-year-old female with asthma exacerbation Vital signs stable, not hypoxic Was wheezing on arrival likely improvement from initial assessment by EMS Improved further with BiPAP, albuterol and magnesium ABG shows normal pH, mild hypercapnia at 50, no hypoxia Labs: No leukocytosis, no metabolic abnormalities ECG is nonischemic Chest x-ray does not show pneumonia or other infectious process Admission offer to Dr. Ferrer as previous admitting hospitalist in Oct 2016 at noon. he responded at 1230pm to endorsed to Dr Garcia which was done EKG Diagnostic Results Rate: normal Rhythm: NSR ST Segments: no acute changes ASA given to the pt in ED: No Rhythm Strip Diag. Results EP Interpretation: yes Rate: 65 Rhythm: NSR, no PVC's, no ectopy Chest X-Ray Diagnostic Results Chest X-Ray Diagnostic Results : Chest X-Ray Ordered: Yes # of Views/Limited/Complete: 1 View Indication: Shortness of Breath EP Interpretation: Yes Interpretation: no consolidation, no effusion, no pneumothorax, no acute cardiopulmonary disease Impression: No acute disease Electronically Signed by: Dr Cristina Sharif MD Last Vital Signs Date Time Temp Pulse Resp B/P (MAP) Pulse Ox O2 Delivery O2 Flow Rate FiO2 10/05/17 12:15 98.1 68 18 106/52 97 Bi-pap 15.0 35 Status: improved Disposition: ADMITTED INPATIENT Condition: Serious Referrals: NON PHYSICIAN (PCP) CRISTINA SHARIF M.D. Oct 05, 2017 12:31
[2017-10-05 13:00] VITALS: BP 142/87
[2017-10-05] MEDS ORDERED: LORazepam Inj 2mg/ml 1ml IV PRN (13:00)
[2017-10-05] MEDS ORDERED: Albuterol/Ipratropium 3ml neb HHN PRN (13:00)
[2017-10-05] MEDS ORDERED: Ketorolac 30mg Inj IV PRN (13:00)
[2017-10-05] MEDS ORDERED: Promethazine/Codeine 5ml UD ORAL PRN (13:00)
[2017-10-05] MEDS ORDERED: Nitroglycerin Subl 0.4mg tab SL PRN (13:00)
[2017-10-05] MEDS ORDERED: Morphine Sulfate 2mg/ml Inj IVP PRN (13:00)
[2017-10-05 13:02] LABS: APPEARANCE,URINE CLEAR; BILIRUBIN, URINE NEGATIVE (NEGATIVE); COLOR,URINE PALE YELLOW; GLUCOSE, URINE (UA) 1+ (NEGATIVE); KETONES,URINE NEGATIVE (NEGATIVE); LEUKOCYTE ESTERASE ,URINE NEGATIVE (NEGATIVE); NITRITE,URINE NEGATIVE (NEGATIVE); PH,URINE 7 (4.5-8.0); PROTEIN,URINE NEGATIVE (NEGATIVE); UROBILINOGEN,URINE NORMAL MG/DL (0.0-1.0)
[2017-10-05] MEDS ORDERED: Piperacillin/Tazobactam 2.25 GM in D5W 55 ML IV SCH (15:00)
[2017-10-05] MEDS ORDERED: Pneumococcal Vaccine 25mcg/0.5ml IM ONE (15:00)
[2017-10-05] MEDS ORDERED: Flu Vaccine Quadrivalent 0.5ml IM ONE (15:00)
[2017-10-05] MEDS: Piperacillin/Tazobactam 2.25 GM in NS 55 ML IV SCH ×2 (15:44→21:18)
[2017-10-05 16:00] VITALS: BP 131/69
[2017-10-05] MEDS: Solu-MEDROL 125mg Inj IV SCH (17:29)
--- NOTE | 2017-10-05 18:22 | History & Physical ---
History and Physical History & Physicial Dictated for Int Med-Dr Garcia no. [id number]. RICKIE SERRATO Oct 05, 2017 18:21
[2017-10-05 20:00] VITALS: BP 133/67
[2017-10-05] MEDS ORDERED: Atorvastatin 20mg tab ORAL SCH (21:00)
[2017-10-05] MEDS: Theophylline ER 100mg ORAL SCH (21:20)
[2017-10-05] MEDS: Lyrica 50mg cap ORAL SCH (21:20)
[2017-10-05] MEDS: Heparin 5000 units/ml inj SUBQ SCH (21:21)
--- NOTE | 2017-10-05 21:56 | Consultation ---
History of Present Illness General Date patient seen: Oct 05, 2017 Chief Complaint: Dyspnea/Respdistress Referring physician: Dr. levy Reason for Consultation: dyspnea Present Illness HPI 82-year-old female wth hx of asthma, HTN, brought in by EMS for shortness of breath by EMS, patient had reduced air movement and wheezing on exam Was given an albuterol and Epi injection prior to arrival with some improvement. she was in respiratory distress and needed to be admitted to [facility] for further management. Allergies: Coded Allergies: VANCOMYCIN (Verified Allergy, Unknown, red eyes, itchying, 10/10/16) Medication History Scheduled Albuterol Sulfate (Ventolin Hfa), 1 PUFF INH EVERY 6 HOURS Amlodipine Besylate* (Amlodipine Besylate*), 5 MG ORAL DAILY, (Reported) Aspirin* (Aspir 81*), 81 MG ORAL DAILY, (Reported) Atorvastatin Calcium* (Atorvastatin Calcium*), 20 MG ORAL BEDTIME, (Reported) Clopidogrel* (Clopidogrel*), 75 MG ORAL DAILY, (Reported) Dexlansoprazole (Dexilant), 60 MG ORAL QHS, (Reported) Labetalol Hcl* (Normodyne*), 100 MG ORAL EVERY 12 HOURS, (Reported) Levocetirizine Dihydrochloride (Levocetirizine Dihydrochloride), 5 MG ORAL DAILY , (Reported) Montelukast Sodium* (Montelukast Sodium*), 10 MG ORAL DAILY, (Reported) Phenytoin Sodium Extended* (Phenytoin Sodium Extended*), 100 MG ORAL DAILY, ( Reported) Phenytoin Sodium Extended* (Phenytoin Sodium Extended*), 200 MG ORAL BEDTIME, ( Reported) Prednisone (Prednisone), 20 MG PO DAILY Prednisone* (Prednisone*), 20 MG ORAL DAILY Pregabalin (Lyrica), 50 MG ORAL Q12HR, (Reported) Valsartan/Hydrochlorothiazide 160-12.5 (Valsartan-Hctz 160-12.5 Mg Tab), 1 TAB ORAL Q12HR, (Reported) Patient History Healthcare decision maker Resuscitation status Full Code Advanced Directive on File N/A Past Medical/Surgical History Past Medical/Surgical History: (1) HTN (hypertension) (2) Asthma Review of Systems Respiratory: Reports: wheezing All Other Systems: negative except mentioned in HPI Physical Exam General Appearance: WD/WN Lines, tubes and drains: peripheral HEENT: normocephalic, atraumatic, PERRL Neck: non-tender Respiratory/Chest: chest wall non-tender, lungs clear Breasts: no masses Cardiovascular/Chest: normal rate Abdomen: normal bowel sounds, non tender Genitourinary/Rectal: normal genital exam Extremities: normal range of motion, no calf tenderness Skin Exam: normal pigmentation Neurologic: career development facilitator II-XII grossly normal Last 24 Hour Vital Signs Date Time Temp Pulse Resp B/P (MAP) Pulse Ox O2 Delivery O2 Flow Rate FiO2 10/05/17 16:00 65 10/05/17 16:00 97.3 65 20 131/69 98 Nasal Cannula 2.0 10/05/17 13:00 98.2 64 20 142/87 96 Nasal Cannula 2.0 10/05/17 12:15 98.1 68 18 106/52 97 Bi-pap 15.0 35 10/05/17 12:13 15.0 35 10/05/17 11:44 65 18 Bi-pap 15.0 35 10/05/17 11:43 98.1 68 20 106/52 97 Bi-pap 15.0 35 10/05/17 10:50 65 18 98 Bi-pap 15.0 35 10/05/17 10:30 68 16 99 Facial 15.0 35 10/05/17 09:55 35 10/05/17 09:55 77 22 99 Bi-pap 15.0 35 10/05/17 09:55 77 22 Bi-pap 15.0 35 10/05/17 09:52 98.1 78 16 155/80 98 Non-Rebreather 10/05/17 09:50 72 20 98 Facial 15.0 35 Laboratory Tests Test 10/05/17 10:13 10/05/17 11:25 10/05/17 19:13 White Blood Count 10.1 K/UL (4.8-10.8) Red Blood Count 4.55 M/UL (4.20-5.40) Hemoglobin 14.2 G/DL (12.0-16.0) Hematocrit 41.6 % (37.0-47.0) Mean Corpuscular Volume 91 FL (80-99) Mean Corpuscular Hemoglobin 31.2 PG (27.0-31.0) H Mean Corpuscular Hemoglobin Concent 34.2 G/DL (32.0-36.0) Red Cell Distribution Width 12.5 % (11.6-14.8) Platelet Count 242 K/UL (150-450) Mean Platelet Volume 7.3 FL (6.5-10.1) Neutrophils (%) (Auto) 57.0 % (45.0-75.0) Lymphocytes (%) (Auto) 24.6 % (20.0-45.0) Monocytes (%) (Auto) 8.7 % (1.0-10.0) Eosinophils (%) (Auto) 8.8 % (0.0-3.0) H Basophils (%) (Auto) 1.0 % (0.0-2.0) Urine Color Pale yellow Urine Appearance Clear Urine pH 7 (4.5-8.0) Urine Specific [place] 1.005 (1.005-1.035) Urine Protein Negative (NEGATIVE) Urine Glucose (UA) 1+ (NEGATIVE) H Urine Ketones Negative (NEGATIVE) Urine Occult Blood Negative (NEGATIVE) Urine Nitrite Negative (NEGATIVE) Urine Bilirubin Negative (NEGATIVE) Urine Urobilinogen Normal MG/DL (0.0-1.0) Urine Leukocyte Esterase Negative (NEGATIVE) Urine RBC 0-2 /HPF (0 - 2) Urine WBC 0 /HPF (0 - 2) Urine Squamous Epithelial Cells Occasional /LPF Urine Bacteria Occasional /HPF (NONE) Sodium Level 134 MMOL/L (136-145) L Potassium Level 3.8 MMOL/L (3.5-5.1) Chloride Level 99 MMOL/L (98-107) Carbon Dioxide Level 30 MMOL/L (21-32) Anion Gap 5 mmol/L (5-15) Blood Urea Nitrogen 14 mg/dL (7-18) Creatinine 0.5 MG/DL (0.55-1.30) L Estimat Glomerular Filtration Rate mL/min (>60) Glucose Level 189 MG/DL (74-106) H Calcium Level 8.9 MG/DL (8.5-10.1) Total Bilirubin 0.5 MG/DL (0.2-1.0) Aspartate Amino Transf (AST/SGOT) 17 U/L (15-37) Alanine Aminotransferase (ALT/SGPT) 24 U/L (12-78) Alkaline Phosphatase 93 U/L (46-116) Total Creatine Kinase 198 U/L (26-308) Creatine Kinase MB 1.8 NG/ML (0.0-3.6) Creatine Kinase MB Relative Index 0.9 Troponin I 0.000 ng/mL (0.000-0.056) Pro-B-Type Natriuretic Peptide 37 pg/mL (0-125) Total Protein 7.6 G/DL (6.4-8.2) Albumin 3.6 G/DL (3.4-5.0) Globulin 4.0 g/dL Albumin/Globulin Ratio 0.9 (1.0-2.7) L Arterial Blood pH 7.358 (7.350-7.450) 7.413 (7.350-7.450) Arterial Blood Partial Pressure CO2 56.1 mmHg (35.0-45.0) *H 44.6 mmHg (35.0-45.0) Arterial Blood Partial Pressure O2 110.3 mmHg (75.0-100.0) H 113.7 mmHg (75.0-100.0) H Arterial Blood HCO3 30.8 mmol/L (22.0-26.0) H 27.8 mmol/L (22.0-26.0) H Arterial Blood Oxygen Saturation 97.7 % (92.0-98.0) 98.1 % (92.0-98.0) H Arterial Blood Base Excess 4.0 2.7 Mk Test Positive Positive Height (Feet): 5 Height (Inches): 3.00 Weight (Pounds): 147 Medications Current Medications Medications (Trade) Dose Ordered Sig/[place] Route PRN Reason Start Time Stop Time Status Last Admin Dose Admin Albuterol/ Ipratropium (Albuterol/ Ipratropium) 3 ml Q4H PRN HHN dyspnea 10/05/17 13:00 10/10/17 12:59 Amlodipine Besylate (Norvasc) 5 mg DAILY ORAL 10/06/17 09:00 11/05/17 08:59 Atorvastatin Calcium (Lipitor) 20 mg BEDTIME ORAL 10/05/17 21:00 11/04/17 20:59 10/05/17 21:20 Dextrose (Dextrose 50%) STAT PRN IV Hypoglycemia 10/05/17 13:00 11/04/17 12:59 Heparin Sodium (Porcine) (Heparin 5000 units/ml) 5,000 units EVERY 12 HOURS SUBQ 10/05/17 21:00 11/04/17 20:59 10/05/17 21:21 Ketorolac Tromethamine (Toradol 30mg) 30 mg Q8H PRN IV moderate pain 4-6 10/05/17 13:00 10/10/17 12:59 Lorazepam (Ativan 2mg/ml 1ml) 0.5 mg Q4H PRN IV For Anxiety 10/05/17 13:00 10/12/17 12:59 Methylprednisolone Sodium Succinate (Solu-MEDROL) 60 mg EVERY 6 HOURS IV 10/05/17 18:00 11/04/17 17:59 10/05/17 17:29 Morphine Sulfate (Morphine Sulfate) 2 mg Q4H PRN IVP severe pain 7-10 10/05/17 13:00 10/12/17 12:59 Nitroglycerin (Ntg) 0.4 mg Q5M X 3 DOSES PRN SL Prn Chest Pain 10/05/17 13:00 11/04/17 12:59 Ondansetron HCl (Zofran) 4 mg Q6H PRN IVP Nausea & Vomiting 10/05/17 13:00 11/04/17 12:59 Phenytoin (Dilantin) 100 mg DAILY ORAL 10/06/17 09:00 11/05/17 08:59 Piperacillin Sod/ Tazobactam Sod 2.25 gm/Sodium Chloride 55 ml @ 110 mls/hr EVERY 8 HOURS IV 10/05/17 16:00 10/12/17 15:59 10/05/17 21:18 Pregabalin (Lyrica) 50 mg Q12HR ORAL 10/05/17 21:00 11/04/17 20:59 10/05/17 21:20 Promethazine HCl/ Codeine (Phenergan with Codeine) 5 ml Q6H PRN ORAL cough 10/05/17 13:00 11/04/17 12:59 Temazepam (Restoril) 15 mg HSPRN PRN ORAL Insomnia 10/05/17 13:00 10/12/17 12:59 Theophylline (Fabrice-Dur) 100 mg EVERY 12 HOURS ORAL 10/05/17 21:00 11/04/17 20:59 10/05/17 21:20 Assessment/Plan Problem List: (1) Acute asthma exacerbation ICD Codes: J45.901 - Unspecified asthma with (acute) exacerbation SNOMED: 698918554 Qualifiers: Qualified Codes: J45.41 - Moderate persistent asthma with (acute) exacerbation (2) Bronchitis ICD Codes: J40 - Bronchitis, not specified as acute or chronic SNOMED: 85858414 (3) HTN (hypertension) ICD Codes: I10 - Essential (primary) hypertension SNOMED: 86164539 Assessment/Plan respiratory treatment IV steroids/ IV abx check sputum f/u pulse oximeter monitor BP DEEPAK VALERIO Oct 05, 2017 21:56
[2017-10-05] MEDS ORDERED: Piperacillin/Tazobactam 2.25 GM in NS 55 ML IV SCH (22:00)
[2017-10-06] VITALS: BP 124/66
[2017-10-06] MEDS: Solu-MEDROL 125mg Inj IV SCH ×4 (00:02→18:36)
[2017-10-06 04:00] VITALS: BP 163/88
[2017-10-06] MEDS: Piperacillin/Tazobactam 2.25 GM in NS 55 ML IV SCH ×3 (05:19→22:03)
[2017-10-06 06:03] LABS: BASOPHILS % (AUTO) 0.2 % (0.0-2.0); EOSINOPHILS % (AUTO) 0.1 % (0.0-3.0); HEMATOCRIT 40.3 % (37.0-47.0); HEMOGLOBIN 13.8 G/DL (12.0-16.0); LYMPHOCYTES % (AUTO) 13.4 % (20.0-45.0); MEAN CORPUSCULAR VOLUME 92 FL (80-99); MONOCYTES % (AUTO) 1.5 % (1.0-10.0); NEUTROPHILS % (AUTO) 84.8 % (45.0-75.0); PLATELET COUNT 205 K/UL (150-450); RED BLOOD COUNT 4.39 M/UL (4.20-5.40); RED CELL DISTRIBUTION WIDTH 12.3 % (11.6-14.8); WHITE BLOOD COUNT 7.4 K/UL (4.8-10.8)
[2017-10-06 06:20] LABS: ANION GAP 3 mmol/L (5-15); BLOOD UREA NITROGEN 16 mg/dL (7-18); CALCIUM 8.8 MG/DL (8.5-10.1); CARBON DIOXIDE 34 MMOL/L (21-32); CHLORIDE 100 MMOL/L (98-107); CREATININE 0.8 MG/DL (0.55-1.30); POTASSIUM 3.9 MMOL/L (3.5-5.1); SODIUM 137 MMOL/L (136-145)
[2017-10-06 08:00] VITALS: BP 151/79
[2017-10-06] MEDS: Theophylline ER 100mg ORAL SCH ×2 (08:57→22:13)
[2017-10-06] MEDS: Lyrica 50mg cap ORAL SCH ×2 (08:58→22:02)
[2017-10-06] MEDS: Heparin 5000 units/ml inj SUBQ SCH ×2 (08:59→22:04)
[2017-10-06] MEDS ORDERED: Phenytoin 100mg cap ORAL SCH ×3 (09:00→21:00)
[2017-10-06] MEDS ORDERED: ASPIR 8181 MG ORAL (09:58)
[2017-10-06] MEDS ORDERED: CLOPIDOGREL75 MG ORAL (09:58)
[2017-10-06 12:00] VITALS: BP 139/69
--- NOTE | 2017-10-06 12:56 | History and Physical Report ---
DATE OF ADMISSION: 10/05/2017 CHIEF COMPLAINT: The patient is an 82-year-old female, who presents with chief complaint of shortness of breath. HISTORY OF PRESENT ILLNESS: The patient was admitted to [facility] from for asthma exacerbation. Please see history and physical and discharge summary dictated at that time. The patient complains of two-day history of shortness of breath. The patient presented to [facility] today, 10/05/2017. The patient complained of one-day history of shortness of breath. The patient denied cough or fever. The patient was admitted for probable asthma exacerbation. REVIEW OF SYSTEMS: CONSTITUTIONAL: The patient denies weight loss or weight gain. The patient denies fevers or chills. HEENT: The patient denies ear or throat pain. The patient denies headache. CARDIOVASCULAR: The patient denies palpitations or chest pain. CHEST: The patient complains of shortness of breath as above. The patient complains of wheezes. ABDOMEN: The patient denies nausea, vomiting, diarrhea, or constipation. GENITOURINARY: The patient denies dysuria or increased frequency of urination. NEUROMUSCULAR: The patient denies seizures or generalized weakness. PAST MEDICAL HISTORY: Significant for: 1. Asthma. 2. Hemorrhagic cerebrovascular accident. 3. Hypertension. 4. Hypercholesterolemia. 5. Gastroesophageal reflux disease. 6. Hemorrhoids. PAST SURGICAL HISTORY: Significant for appendectomy. CURRENT MEDICATIONS: 1. Albuterol metered-dose inhaler two puffs p.o. q.6 hours p.r.n. 2. Amlodipine 5 mg p.o. daily. 3. Atorvastatin 20 mg p.o. nightly. 4. Dexilant 60 mg p.o. daily. 5. Labetalol 100 mg one tablet p.o. twice daily. 6. Zyrtec 5 mg p.o. daily. 7. Singulair 10 mg p.o. daily. 8. Dilantin 100 mg p.o. daily, Dilantin 100 mg 2 tablets p.o. nightly. 9. Prednisone 20 mg p.o. daily. 10. Lyrica 50 mg p.o. twice daily. 11. Valsartan/hydrochlorothiazide 160/12.5 one tablet p.o. twice daily. ALLERGIES: VANCOMYCIN. SOCIAL HISTORY: The patient is single. The patient denies tobacco or alcohol use. PHYSICAL EXAMINATION: VITAL SIGNS: Temperature 98.1, respirations 18, pulse 68, blood pressure 106/52. GENERAL: The patient is a well-developed and well-nourished female, who is in moderate respiratory distress. HEENT: Eyes, pupils equal and responsive to light and accommodation. Extraocular movements are intact. NECK: Supple without lymphadenopathy. CHEST: Diffuse wheezes bilaterally with crackles in bilateral bases. CARDIOVASCULAR: Regular rhythm and rate. S1, S2 normal without murmurs, rubs, or gallops. ABDOMEN: Soft, nontender, nondistended. Positive bowel sounds. No evidence of hepatosplenomegaly. Currently, no rebound or guarding noted. EXTREMITIES: Negative for clubbing, cyanosis, or edema. RECTAL: Refused. GENITAL: Refused. NEUROLOGIC: Cranial nerves II trough XII are grossly intact without focal deficits. Motor strength is 5/5 bilaterally intact. Deep tendon reflexes are 2+, plantar. LABORATORY STUDIES: WBC 10.1, hemoglobin 14.2, hematocrit 41.6, platelets 142,000. Sodium 134, potassium 3.8, chloride 99, CO2 30, BUN 14, creatinine 0.5, glucose 189. Troponin 0.0. Chest x-ray revealed no evidence of acute cardiopulmonary disease. Arterial blood gases revealed pH 7.358, pCO2 56.1, pO2 110.3, bicarbonate 30.8, oxygen saturation 97.7, and base excess positive 4.0. ASSESSMENT: This is an 82-year-old female with: 1. Shortness of breath. 2. Probable asthma exacerbation. 3. Cerebrovascular disease. 4. Hypertension. 5. Hypercholesterolemia. 6. Gastroesophageal reflux disease. TREATMENT: 1. Shortness of breath/asthma exacerbation. Pulmonary consultation has been obtained with Dr. Luis A Juares. The patient has been placed empirically on intravenous Zosyn. The patient is also receiving Solu-Medrol intravenously q.6 hours. The patient is currently on DuoNeb nebulized q.4 hours p.r.n. 2. Cerebrovascular disease. The patient is status post hemorrhagic cerebrovascular accident. 3. Hypertension. Continue amlodipine and valsartan/hydrochlorothiazide as above. 4. Hypercholesterolemia. Continue atorvastatin as above. 5. Gastroesophageal reflux disease. Continue Dexilant as above. 6. History of seizure disorder. Continue Dilantin as above. Hank Toure M.D. DR: Roxy JOB#: [id number] CC:
--- NOTE | 2017-10-06 13:25 | Pulmonology Progress Note ---
Assessment/Plan Problems: (1) Acute asthma exacerbation (2) Bronchitis (3) HTN (hypertension) Assessment/Plan improving taper steroids check electroltyes titrate fio2 check cultures dvt prophylaxis med/surg Subjective ROS Limited/Unobtainable: No Constitutional: Reports: no symptoms HEENT: Repors: no symptoms Allergies: Coded Allergies: VANCOMYCIN (Verified Allergy, Unknown, red eyes, itchying, 10/10/16) Objective Last 24 Hour Vital Signs Date Time Temp Pulse Resp B/P (MAP) Pulse Ox O2 Delivery O2 Flow Rate FiO2 10/06/17 12:10 77 18 99 Nasal Cannula 2.0 28 10/06/17 12:05 75 20 97 Nasal Cannula 2.0 28 10/06/17 12:00 97.0 76 20 139/69 98 Nasal Cannula 2.0 10/06/17 12:00 88 10/06/17 08:57 79 151/79 10/06/17 08:00 97.7 83 20 151/79 99 Nasal Cannula 2.0 10/06/17 08:00 79 10/06/17 05:11 83 10/06/17 04:00 96.3 82 18 163/88 97 Nasal Cannula 2.0 10/06/17 00:00 97.9 73 17 124/66 98 Nasal Cannula 2.0 10/05/17 22:40 69 19 97 Facial 35 10/05/17 22:00 15.0 35 10/05/17 20:00 97.9 69 20 133/67 98 Nasal Cannula 2.0 10/05/17 20:00 69 10/05/17 16:00 65 10/05/17 16:00 97.3 65 20 131/69 98 Nasal Cannula 2.0 Intake and Output 10/05/17 10/06/17 19:00 07:00 Intake Total 395 ml 110 ml Output Total 800 ml Balance -405 ml 110 ml Intake Oral 240 ml IV Total 55 ml 110 ml Other 100 ml Output Urine Total 800 ml # Voids 1 General Appearance: WD/WN HEENT: normocephalic Breasts: no masses Cardiovascular: normal peripheral pulses Abdomen: normal bowel sounds, no organomegaly Genitourinary: normal external genitalia Extremities: no clubbing Laboratory Tests 10/05/17 19:13: Arterial Blood pH 7.413, Arterial Blood Partial Pressure CO2 44.6, Arterial Blood Partial Pressure O2 113.7H, Arterial Blood HCO3 27.8H, Arterial Blood Oxygen Saturation 98.1H, Arterial Blood Base Excess 2.7, Mk Test Positive 10/06/17 04:55: White Blood Count 7.4, Red Blood Count 4.39, Hemoglobin 13.8, Hematocrit 40.3, Mean Corpuscular Volume 92, Mean Corpuscular Hemoglobin 31.5H, Mean Corpuscular Hemoglobin Concent 34.3, Red Cell Distribution Width 12.3, Platelet Count 205, Mean Platelet Volume 7.5, Neutrophils (%) (Auto) 84.8H, Lymphocytes (%) (Auto) 13.4L, Monocytes (%) (Auto) 1.5, Eosinophils (%) (Auto) 0.1, Basophils (%) (Auto ) 0.2, Sodium Level 137, Potassium Level 3.9, Chloride Level 100, Carbon Dioxide Level 34H, Anion Gap 3L, Blood Urea Nitrogen 16, Creatinine 0.8#, Estimat Glomerular Filtration Rate , Glucose Level 131H, Calcium Level 8.8 Current Medications Medications (Trade) Dose Ordered Sig/Mecca Route PRN Reason Start Time Stop Time Status Last Admin Dose Admin Albuterol/ Ipratropium (Albuterol/ Ipratropium) 3 ml Q4H PRN HHN dyspnea 10/05/17 13:00 10/10/17 12:59 10/06/17 12:05 Amlodipine Besylate (Norvasc) 5 mg DAILY ORAL 10/06/17 09:00 11/05/17 08:59 10/06/17 08:57 Atorvastatin Calcium (Lipitor) 20 mg BEDTIME ORAL 10/05/17 21:00 11/04/17 20:59 10/05/17 21:20 Dextrose (Dextrose 50%) STAT PRN IV Hypoglycemia 10/05/17 13:00 11/04/17 12:59 Heparin Sodium (Porcine) (Heparin 5000 units/ml) 5,000 units EVERY 12 HOURS SUBQ 10/05/17 21:00 11/04/17 20:59 10/06/17 08:59 Ketorolac Tromethamine (Toradol 30mg) 30 mg Q8H PRN IV moderate pain 4-6 10/05/17 13:00 10/10/17 12:59 Lorazepam (Ativan 2mg/ml 1ml) 0.5 mg Q4H PRN IV For Anxiety 10/05/17 13:00 10/12/17 12:59 Methylprednisolone Sodium Succinate (Solu-MEDROL) 60 mg EVERY 6 HOURS IV 10/05/17 18:00 11/04/17 17:59 10/06/17 11:45 Morphine Sulfate (Morphine Sulfate) 2 mg Q4H PRN IVP severe pain 7-10 10/05/17 13:00 10/12/17 12:59 Nitroglycerin (Ntg) 0.4 mg Q5M X 3 DOSES PRN SL Prn Chest Pain 10/05/17 13:00 11/04/17 12:59 Ondansetron HCl (Zofran) 4 mg Q6H PRN IVP Nausea & Vomiting 10/05/17 13:00 11/04/17 12:59 Phenytoin (Dilantin) 100 mg DAILY ORAL 10/06/17 09:00 11/05/17 08:59 10/06/17 08:57 Piperacillin Sod/ Tazobactam Sod 2.25 gm/Sodium Chloride 55 ml @ 110 mls/hr EVERY 8 HOURS IV 10/05/17 16:00 10/12/17 15:59 10/06/17 05:19 Pregabalin (Lyrica) 50 mg Q12HR ORAL 10/05/17 21:00 11/04/17 20:59 10/06/17 08:58 Promethazine HCl/ Codeine (Phenergan with Codeine) 5 ml Q6H PRN ORAL cough 10/05/17 13:00 11/04/17 12:59 Temazepam (Restoril) 15 mg HSPRN PRN ORAL Insomnia 10/05/17 13:00 10/12/17 12:59 Theophylline (Fabrice-Dur) 100 mg EVERY 12 HOURS ORAL 10/05/17 21:00 11/04/17 20:59 10/06/17 08:57 DEEPAK VALERIO Oct 06, 2017 13:25
[2017-10-06 16:00] VITALS: BP 133/71
[2017-10-06] MEDS ORDERED: Nitroglycerin Subl 0.4mg tab SL PRN (17:30)
--- NOTE | 2017-10-06 18:06 | Internal Med Progress Note ---
Subjective Date of Service: Oct 06, 2017 Physician Name Rickie Toure Attending Physician Shlomo Garcia MD Current Medications Medications (Trade) Dose Ordered Sig/Mecca Route PRN Reason Start Time Stop Time Status Last Admin Dose Admin Albuterol/ Ipratropium (Albuterol/ Ipratropium) 3 ml Q4H PRN HHN dyspnea 10/06/17 21:00 10/10/17 12:59 UNV Amlodipine Besylate (Norvasc) 5 mg DAILY ORAL 10/07/17 09:00 11/05/17 08:59 UNV Atorvastatin Calcium (Lipitor) 20 mg BEDTIME ORAL 10/06/17 21:00 11/04/17 20:59 UNV Dextrose (Dextrose 50%) STAT PRN IV Hypoglycemia 10/07/17 13:00 11/04/17 12:59 UNV Heparin Sodium (Porcine) (Heparin 5000 units/ml) 5,000 units EVERY 12 HOURS SUBQ 10/06/17 21:00 11/04/17 20:59 UNV Ketorolac Tromethamine (Toradol 30mg) 30 mg Q8H PRN IV moderate pain 4-6 10/06/17 21:00 10/10/17 12:59 UNV Lorazepam (Ativan 2mg/ml 1ml) 0.5 mg Q4H PRN IV For Anxiety 10/06/17 21:00 10/12/17 12:59 UNV Methylprednisolone Sodium Succinate (Solu-MEDROL) 60 mg EVERY 6 HOURS IV 10/06/17 18:00 11/04/17 17:59 UNV Morphine Sulfate (Morphine Sulfate) 2 mg Q4H PRN IVP severe pain 7-10 10/06/17 21:00 10/12/17 12:59 UNV Nitroglycerin (Ntg) 0.4 mg Q5M X 3 DOSES PRN SL Prn Chest Pain 10/06/17 17:30 11/04/17 12:59 UNV Ondansetron HCl (Zofran) 4 mg Q6H PRN IVP Nausea & Vomiting 10/06/17 19:00 11/04/17 12:59 UNV Phenytoin (Dilantin) 100 mg Q12HR ORAL 10/06/17 21:00 11/05/17 20:59 UNV Piperacillin Sod/ Tazobactam Sod 2.25 gm/Sodium Chloride 55 ml @ 110 mls/hr EVERY 8 HOURS IV 10/06/17 22:00 10/13/17 21:59 UNV Pregabalin (Lyrica) 50 mg Q12HR ORAL 10/06/17 21:00 11/04/17 20:59 UNV Promethazine HCl/ Codeine (Phenergan with Codeine) 5 ml Q6H PRN ORAL cough 10/06/17 19:00 11/04/17 12:59 UNV Temazepam (Restoril) 15 mg HSPRN PRN ORAL Insomnia 10/07/17 13:00 10/12/17 12:59 UNV Theophylline (Fabrice-Dur) 100 mg EVERY 12 HOURS ORAL 10/06/17 21:00 11/04/17 20:59 UNV Allergies: Coded Allergies: VANCOMYCIN (Verified Allergy, Unknown, red eyes, itchying, 10/10/16) ROS Limited/Unobtainable: No Constitutional: Reports: no symptoms HEENT: Reports: no symptoms Cardiovascular: Reports: no symptoms Respiratory: Reports: shortness of breath Gastrointestinal/Abdominal: Reports: no symptoms Genitourinary: Reports: no symptoms Neurologic/Psychiatric: Reports: no symptoms Subjective 82 YO F admitted with shortness of breath. Now asthma exacerbation. Cover for Int Med-Dr Garcia. WALTER Objective Last Vital Signs Date Time Temp Pulse Resp B/P (MAP) Pulse Ox O2 Delivery O2 Flow Rate FiO2 10/06/17 16:00 97.7 88 20 133/71 97 Nasal Cannula 2.0 10/06/17 12:10 28 General Appearance: WD/WN, alert, mild distress EENT: PERRL/EOMI, normal ENT inspection Neck: non-tender, normal alignment, supple Cardiovascular: normal peripheral pulses, normal rate, regular rhythm, no gallop/murmur, no JVD Respiratory/Chest: chest wall non-tender, respiratory distress, crackles/rales , rhonchi - bilaterally, expiratory wheezing Abdomen: normal bowel sounds, non tender, soft, no organomegaly, no mass Extremities: normal range of motion, non-tender 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, no motor/sensory deficits Skin: normal pigmentation, warm/dry Laboratory Tests Test 10/05/17 19:13 10/06/17 04:55 Arterial Blood pH 7.413 (7.350-7.450) Arterial Blood Partial Pressure CO2 44.6 mmHg (35.0-45.0) Arterial Blood Partial Pressure O2 113.7 mmHg (75.0-100.0) H Arterial Blood HCO3 27.8 mmol/L (22.0-26.0) H Arterial Blood Oxygen Saturation 98.1 % (92.0-98.0) H Arterial Blood Base Excess 2.7 Mk Test Positive White Blood Count 7.4 K/UL (4.8-10.8) Red Blood Count 4.39 M/UL (4.20-5.40) Hemoglobin 13.8 G/DL (12.0-16.0) Hematocrit 40.3 % (37.0-47.0) Mean Corpuscular Volume 92 FL (80-99) Mean Corpuscular Hemoglobin 31.5 PG (27.0-31.0) H Mean Corpuscular Hemoglobin Concent 34.3 G/DL (32.0-36.0) Red Cell Distribution Width 12.3 % (11.6-14.8) Platelet Count 205 K/UL (150-450) Mean Platelet Volume 7.5 FL (6.5-10.1) Neutrophils (%) (Auto) 84.8 % (45.0-75.0) H Lymphocytes (%) (Auto) 13.4 % (20.0-45.0) L Monocytes (%) (Auto) 1.5 % (1.0-10.0) Eosinophils (%) (Auto) 0.1 % (0.0-3.0) Basophils (%) (Auto) 0.2 % (0.0-2.0) Sodium Level 137 MMOL/L (136-145) Potassium Level 3.9 MMOL/L (3.5-5.1) Chloride Level 100 MMOL/L (98-107) Carbon Dioxide Level 34 MMOL/L (21-32) H Anion Gap 3 mmol/L (5-15) L Blood Urea Nitrogen 16 mg/dL (7-18) Creatinine 0.8 MG/DL (0.55-1.30) # Estimat Glomerular Filtration Rate mL/min (>60) Glucose Level 131 MG/DL (74-106) H Calcium Level 8.8 MG/DL (8.5-10.1) Microbiology Date/Time Source Procedure Growth Status 10/06/17 03:00 Sputum Gram Stain - Final Resulted 10/06/17 03:00 Sputum Sputum Culture Pending Resulted Intake and Output 10/05/17 10/06/17 19:00 07:00 Intake Total 395 ml 110 ml Output Total 800 ml Balance -405 ml 110 ml Intake Oral 240 ml IV Total 55 ml 110 ml Other 100 ml Output Urine Total 800 ml # Voids 1 Assessment/Plan Problem List: (1) SOB (shortness of breath) (2) Hypercholesteremia Assessment & Plan: Cont atorvastatin (3) GERD (gastroesophageal reflux disease) (4) Seizure disorder (5) Acute asthma exacerbation Assessment & Plan: See pulmonary note. Cont IV steroids and theodur (6) HTN (hypertension) Assessment & Plan: Cont RICKIE Shields Oct 06, 2017 18:06
[2017-10-06] MEDS: Promethazine/Codeine 5ml UD ORAL PRN (18:34)
[2017-10-06 20:20] VITALS: BP 132/69
[2017-10-06] MEDS ORDERED: Morphine Sulfate 2mg/ml Inj IVP PRN (21:00)
[2017-10-06] MEDS ORDERED: Atorvastatin 20mg tab ORAL SCH (21:00)
[2017-10-06] MEDS ORDERED: LORazepam Inj 2mg/ml 1ml IV PRN (21:00)
[2017-10-06] MEDS ORDERED: Ketorolac 30mg Inj IV PRN (21:00)
[2017-10-06] MEDS: Phenytoin 100mg cap ORAL SCH (22:01)
[2017-10-07] VITALS: BP 112/55
[2017-10-07] MEDS: Solu-MEDROL 125mg Inj IV SCH ×2 (01:13→06:00)
[2017-10-07] MEDS: Albuterol/Ipratropium 3ml neb HHN PRN ×3 (01:50→23:07)
[2017-10-07 04:00] VITALS: BP 155/65
[2017-10-07] MEDS: Piperacillin/Tazobactam 2.25 GM in NS 55 ML IV SCH ×3 (06:00→21:47)
[2017-10-07 08:00] VITALS: BP 157/76
--- NOTE | 2017-10-07 09:03 | Pulmonology Progress Note ---
Assessment/Plan Assessment/Plan ASSESSMENT Acute hypercapnic hypoxemic RF requiring BiPAP-initially, resolved Acute asthma exacerbation acute bronchitis HTN GERD high cholesterol cerebrovascular disease, with hx of hemorrhagic stroke seizure disorder PLAN OF CARE [place] floor O2 titrate, HHN and CPT IV steroids and taper empiric abx sputum cx negative fup with CXR trial of Theophylline a/tussive prn BP management with CCB continue statin DVT prophylaxis seizure precautions continue Dilantin slowly improving on dc will need inhaler maintenance and prn case discussed and evaluated by supervising physician Subjective Allergies: Coded Allergies: VANCOMYCIN (Verified Allergy, Unknown, red eyes, itchying, 10/10/16) Subjective afebrile, no leukocytosis, still cough and some wheezing Objective Last 24 Hour Vital Signs Date Time Temp Pulse Resp B/P (MAP) Pulse Ox O2 Delivery O2 Flow Rate FiO2 10/07/17 08:00 97.6 91 20 157/76 96 10/07/17 04:00 97.3 81 18 155/65 97 Nasal Cannula 2.0 10/07/17 02:07 81 20 97 Nasal Cannula 2.0 28 10/07/17 01:49 81 20 97 Nasal Cannula 2.0 28 10/07/17 01:49 28 10/07/17 00:00 98.3 76 18 112/55 97 Nasal Cannula 2.0 10/06/17 20:20 97.9 81 20 132/69 97 Nasal Cannula 2.0 10/06/17 20:01 88 20 97 Facial 2.0 28 10/06/17 16:00 97.7 88 20 133/71 97 Nasal Cannula 2.0 10/06/17 12:10 77 18 99 Nasal Cannula 2.0 28 10/06/17 12:05 75 20 97 Nasal Cannula 2.0 28 10/06/17 12:00 97.0 76 20 139/69 98 Nasal Cannula 2.0 10/06/17 12:00 88 Intake and Output 10/06/17 10/07/17 19:00 07:00 Intake Total 415 ml 240 ml Output Total 600 ml Balance -185 ml 240 ml Intake Oral 360 ml 240 ml IV Total 55 ml Output Urine Total 600 ml # Voids 3 General Appearance: no acute distress, other - Awake, alert, elderly female in NAD HEENT: normocephalic, atraumatic, mucous membranes moist, PERRL Respiratory/Chest: chest wall non-tender, expiratory wheezing - fewexp wheezes Cardiovascular: normal rate, no JVD Abdomen: normal bowel sounds, soft, non tender Extremities: no edema, pedal pulses normal Neurologic/Psychiatric: no motor/sensory deficits, alert, responsive Musculoskeletal: atrophy - BLE Microbiology Date/Time Source Procedure Growth Status 10/06/17 03:00 Sputum Gram Stain - Final Resulted 10/06/17 03:00 Sputum Sputum Culture Pending Resulted Current Medications Medications (Trade) Dose Ordered Sig/Mecca Route PRN Reason Start Time Stop Time Status Last Admin Dose Admin Albuterol/ Ipratropium (Albuterol/ Ipratropium) 3 ml Q4H PRN HHN dyspnea 10/06/17 18:30 10/10/17 18:29 10/07/17 01:50 Amlodipine Besylate (Norvasc) 5 mg DAILY ORAL 10/07/17 09:00 11/05/17 08:59 Atorvastatin Calcium (Lipitor) 20 mg BEDTIME ORAL 10/06/17 21:00 11/04/17 20:59 10/06/17 22:02 Dextrose (Dextrose 50%) STAT PRN IV Hypoglycemia 10/06/17 18:56 11/05/17 18:55 Heparin Sodium (Porcine) (Heparin 5000 units/ml) 5,000 units EVERY 12 HOURS SUBQ 10/06/17 21:00 11/04/17 20:59 10/06/17 22:04 Ketorolac Tromethamine (Toradol 30mg) 30 mg Q8H PRN IV moderate pain 4-6 10/06/17 21:00 10/10/17 12:59 Lorazepam (Ativan 2mg/ml 1ml) 0.5 mg Q4H PRN IV For Anxiety 10/06/17 21:00 10/12/17 12:59 Methylprednisolone Sodium Succinate (Solu-MEDROL) 60 mg EVERY 6 HOURS IV 10/06/17 18:30 11/04/17 18:29 10/07/17 06:00 Morphine Sulfate (Morphine Sulfate) 2 mg Q4H PRN IVP severe pain 7-10 10/06/17 21:00 10/12/17 12:59 Nitroglycerin (Ntg) 0.4 mg Q5M X 3 DOSES PRN SL Prn Chest Pain 10/06/17 17:30 11/04/17 12:59 Ondansetron HCl (Zofran) 4 mg Q6H PRN IVP Nausea & Vomiting 10/06/17 19:00 11/04/17 12:59 Phenytoin (Dilantin) 100 mg Q12HR ORAL 10/06/17 21:00 11/05/17 20:59 10/06/17 22:01 Piperacillin Sod/ Tazobactam Sod 2.25 gm/Sodium Chloride 55 ml @ 110 mls/hr EVERY 8 HOURS IV 10/06/17 22:00 10/13/17 23:59 10/07/17 06:00 Pregabalin (Lyrica) 50 mg Q12HR ORAL 10/06/17 21:00 11/04/17 20:59 10/06/17 22:02 Promethazine HCl/ Codeine (Phenergan with Codeine) 5 ml Q6H PRN ORAL cough 10/06/17 18:30 11/04/17 18:29 10/06/17 18:34 Temazepam (Restoril) 15 mg HSPRN PRN ORAL Insomnia 10/07/17 13:00 10/12/17 12:59 Theophylline (Fabrice-Dur) 100 mg EVERY 12 HOURS ORAL 10/06/17 21:00 11/04/17 20:59 10/06/17 22:13 Frantz MolinaJessica jordan NP Oct 07, 2017 09:02
[2017-10-07] MEDS: Phenytoin 100mg cap ORAL SCH ×2 (09:09→21:47)
[2017-10-07] MEDS: Theophylline ER 100mg ORAL SCH ×2 (09:09→20:28)
[2017-10-07] MEDS: Lyrica 50mg cap ORAL SCH ×2 (09:10→20:30)
[2017-10-07] MEDS: Heparin 5000 units/ml inj SUBQ SCH ×2 (09:16→20:34)
[2017-10-07] MEDS: Promethazine/Codeine 5ml UD ORAL PRN ×2 (09:22→21:47)
[2017-10-07 12:00] VITALS: BP 159/67
[2017-10-07] MEDS ORDERED: Solu-MEDROL 40mg Inj IVP SCH (14:00)
--- NOTE | 2017-10-07 14:39 | Internal Med Progress Note ---
Subjective Date of Service: Oct 07, 2017 Physician Name Rickie Toure Attending Physician Shlomo Garcia MD Current Medications Medications (Trade) Dose Ordered Sig/Mecca Route PRN Reason Start Time Stop Time Status Last Admin Dose Admin Albuterol/ Ipratropium (Albuterol/ Ipratropium) 3 ml Q4H PRN HHN dyspnea 10/06/17 18:30 10/10/17 18:29 10/07/17 01:50 Amlodipine Besylate (Norvasc) 5 mg DAILY ORAL 10/07/17 09:00 11/05/17 08:59 10/07/17 09:09 Atorvastatin Calcium (Lipitor) 20 mg BEDTIME ORAL 10/06/17 21:00 11/04/17 20:59 10/06/17 22:02 Dextrose (Dextrose 50%) STAT PRN IV Hypoglycemia 10/06/17 18:56 11/05/17 18:55 Docusate Sodium (Colace) 100 mg TWICE A DAY ORAL 10/07/17 18:00 11/06/17 17:59 Heparin Sodium (Porcine) (Heparin 5000 units/ml) 5,000 units EVERY 12 HOURS SUBQ 10/06/17 21:00 11/04/17 20:59 10/07/17 09:16 Ketorolac Tromethamine (Toradol 30mg) 30 mg Q8H PRN IV moderate pain 4-6 10/06/17 21:00 10/10/17 12:59 Lorazepam (Ativan 2mg/ml 1ml) 0.5 mg Q4H PRN IV For Anxiety 10/06/17 21:00 10/12/17 12:59 Methylprednisolone Sodium Succinate (Solu-MEDROL) 60 mg EVERY 8 HOURS IVP 10/07/17 14:00 11/04/17 18:29 Morphine Sulfate (Morphine Sulfate) 2 mg Q4H PRN IVP severe pain 7-10 10/06/17 21:00 10/12/17 12:59 Nitroglycerin (Ntg) 0.4 mg Q5M X 3 DOSES PRN SL Prn Chest Pain 10/06/17 17:30 11/04/17 12:59 Ondansetron HCl (Zofran) 4 mg Q6H PRN IVP Nausea & Vomiting 10/06/17 19:00 11/04/17 12:59 Phenytoin (Dilantin) 100 mg Q12HR ORAL 10/06/17 21:00 11/05/17 20:59 10/07/17 09:09 Piperacillin Sod/ Tazobactam Sod 2.25 gm/Sodium Chloride 55 ml @ 110 mls/hr EVERY 8 HOURS IV 10/06/17 22:00 10/13/17 23:59 10/07/17 06:00 Pregabalin (Lyrica) 50 mg Q12HR ORAL 10/06/17 21:00 11/04/17 20:59 10/07/17 09:10 Promethazine HCl/ Codeine (Phenergan with Codeine) 5 ml Q6H PRN ORAL cough 10/06/17 18:30 11/04/17 18:29 10/07/17 09:22 Temazepam (Restoril) 15 mg HSPRN PRN ORAL Insomnia 10/07/17 13:00 10/12/17 12:59 Theophylline (Fabrice-Dur) 100 mg EVERY 12 HOURS ORAL 10/06/17 21:00 11/04/17 20:59 10/07/17 09:09 Allergies: Coded Allergies: VANCOMYCIN (Verified Allergy, Unknown, red eyes, itchying, 10/10/16) ROS Limited/Unobtainable: No Constitutional: Reports: no symptoms HEENT: Reports: no symptoms Cardiovascular: Reports: no symptoms Respiratory: Reports: shortness of breath, wheezing Gastrointestinal/Abdominal: Reports: no symptoms Genitourinary: Reports: no symptoms Neurologic/Psychiatric: Reports: no symptoms Subjective 82 YO F admitted with shortness of breath. Now asthma exacerbation. Cover for Int Med-Dr Garcia. WALTER Objective Last Vital Signs Date Time Temp Pulse Resp B/P (MAP) Pulse Ox O2 Delivery O2 Flow Rate FiO2 10/07/17 12:00 97.7 78 19 159/67 97 10/07/17 04:00 Nasal Cannula 2.0 10/07/17 02:07 28 Microbiology Date/Time Source Procedure Growth Status 10/06/17 03:00 Sputum Gram Stain - Final Resulted 10/06/17 03:00 Sputum Sputum Culture - Preliminary NORMAL UPPER RESPIRATORY SRUTHI AT 24 ... Resulted 10/05/17 12:20 Nasal Nares MRSA Culture - Final NO METHICILLIN RESISTANT STAPH AUREUS... Complete 10/05/17 12:20 Rectum VRE Culture - Final NO VANCOMYCIN RESISTANT ENTEROCOCCUS ... Complete Intake and Output 10/06/17 10/07/17 19:00 07:00 Intake Total 415 ml 240 ml Output Total 600 ml Balance -185 ml 240 ml Intake Oral 360 ml 240 ml IV Total 55 ml Output Urine Total 600 ml # Voids 3 Objective General Appearance: WD/WN, alert, mild distress EENT: PERRL/EOMI, normal ENT inspection Neck: non-tender, normal alignment, supple Cardiovascular: normal peripheral pulses, normal rate, regular rhythm, no gallop/murmur, no JVD Respiratory/Chest: chest wall non-tender, respiratory distress, crackles/rales , rhonchi - bilaterally, expiratory wheezing Abdomen: normal bowel sounds, non tender, soft, no organomegaly, no mass Extremities: normal range of motion, non-tender 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 Cont IV steroids and theodur (6) HTN (hypertension) Assessment & Plan: Cont norvasc (7) Bronchitis Assessment & Plan: Continue RICKIE Giles Oct 07, 2017 14:39
[2017-10-07] MEDS ORDERED: Imdur 30mg tab ORAL SCH (15:15)
[2017-10-07 16:00] VITALS: BP 148/70
[2017-10-07] MEDS: hydroCHLOROthiazide 12.5mg TAB ORAL SCH (16:00)
[2017-10-07] MEDS ORDERED: Tubing IV Secondary IV ONE (16:18)
[2017-10-07] MEDS: Imdur 30mg tab ORAL SCH (16:27)
[2017-10-07] MEDS: Montelukast 10mg tablet ORAL SCH (16:27)
[2017-10-07] MEDS: Docusate 100mg cap ORAL SCH (18:02)
[2017-10-07 20:18] VITALS: BP 133/79
[2017-10-07] MEDS: Atorvastatin 20mg tab ORAL SCH (20:29)
[2017-10-08 00:24] VITALS: BP 130/82
[2017-10-08] MEDS ORDERED: Solu-MEDROL 40mg Inj IVP SCH (03:00)
[2017-10-08] MEDS: Albuterol/Ipratropium 3ml neb HHN PRN ×3 (03:12→16:25)
[2017-10-08 04:30] VITALS: BP 134/67
[2017-10-08] MEDS: Promethazine/Codeine 5ml UD ORAL PRN ×2 (05:53→20:05)
[2017-10-08] MEDS: Piperacillin/Tazobactam 2.25 GM in NS 55 ML IV SCH ×3 (05:53→22:13)
[2017-10-08 08:22] VITALS: BP 114/69
[2017-10-08] MEDS: hydroCHLOROthiazide 12.5mg TAB ORAL SCH (08:27)
[2017-10-08] MEDS: Docusate 100mg cap ORAL SCH ×2 (08:28→18:00)
[2017-10-08] MEDS: Irbesartan 150mg tablet ORAL SCH (08:28)
[2017-10-08] MEDS: Phenytoin 100mg cap ORAL SCH ×2 (08:32→20:01)
[2017-10-08] MEDS: Lyrica 50mg cap ORAL SCH ×2 (08:36→20:02)
[2017-10-08] MEDS: Theophylline ER 100mg ORAL SCH ×2 (08:42→20:02)
[2017-10-08] MEDS: Heparin 5000 units/ml inj SUBQ SCH ×2 (08:44→20:02)
[2017-10-08] MEDS: Imdur 30mg tab ORAL SCH (11:35)
[2017-10-08 12:04] VITALS: BP 149/73
[2017-10-08] MEDS ORDERED: NS 275ml ONE (13:50)
[2017-10-08] MEDS ORDERED: Tubing IV Secondary IV ONE (13:50)
--- NOTE | 2017-10-08 14:00 | Pulmonology Progress Note ---
Assessment/Plan Assessment/Plan ASSESSMENT Acute hypercapnic hypoxemic RF requiring BiPAP-initially, resolved Acute asthma exacerbation acute bronchitis HTN GERD high cholesterol cerebrovascular disease, with hx of hemorrhagic stroke seizure disorder PLAN OF CARE [place] floor O2 titrate, HHN and CPT IV steroids and taper empiric abx sputum cx negative fup with CXR trial of Theophylline a/tussive prn BP management with CCB continue statin DVT prophylaxis seizure precautions continue Dilantin slowly improving on dc will need inhalers maintenance and prn dc plan for tomorrow scripts left in the chart case discussed and evaluated by supervising physician Subjective Allergies: Coded Allergies: VANCOMYCIN (Verified Allergy, Unknown, red eyes, itchying, 10/10/16) Subjective afebrile, no leukocytosis, still cough and occasional wheezing Objective Last 24 Hour Vital Signs Date Time Temp Pulse Resp B/P (MAP) Pulse Ox O2 Delivery O2 Flow Rate FiO2 10/08/17 12:04 98.3 90 18 149/73 97 10/08/17 11:36 90 139/69 10/08/17 11:35 139/69 10/08/17 10:26 83 20 97 Nasal Cannula 3.0 32 10/08/17 10:25 32 10/08/17 10:25 89 20 96 Room Air 3.0 32 10/08/17 08:33 89 114/69 10/08/17 08:28 114/69 10/08/17 08:22 98.1 89 21 114/69 96 10/08/17 04:30 97.9 82 20 134/67 94 10/08/17 03:12 81 20 96 Nasal Cannula 2.0 28 10/08/17 03:07 35 10/08/17 03:07 92 20 95 Room Air 21 10/08/17 00:24 97.7 90 19 130/82 95 10/07/17 23:06 21 10/07/17 23:05 93 19 97 Room Air 21 10/07/17 20:18 97.5 93 19 133/79 95 10/07/17 16:27 81 148/70 10/07/17 16:27 148/70 10/07/17 16:17 79 18 98 Nasal Cannula 2.0 28 10/07/17 16:07 81 20 97 Nasal Cannula 2.0 28 10/07/17 16:00 98.1 84 19 148/70 97 Intake and Output 10/07/17 10/08/17 19:00 07:00 Intake Total 830 ml 775 ml Balance 830 ml 775 ml Intake Oral 830 ml 720 ml IV Total 55 ml # Voids 4 4 # Bowel Movements 1 Objective General Appearance: no acute distress, other - Awake, alert, elderly female in NAD HEENT: normocephalic, atraumatic, mucous membranes moist, PERRL Respiratory/Chest: chest wall non-tender, expiratory wheezing - fewexp wheezes Cardiovascular: normal rate, no JVD Abdomen: normal bowel sounds, soft, non tender Extremities: no edema, pedal pulses normal Neurologic/Psychiatric: no motor/sensory deficits, alert, responsive Musculoskeletal: atrophy - BLE Microbiology Date/Time Source Procedure Growth Status 10/06/17 03:00 Sputum Gram Stain - Final Complete 10/06/17 03:00 Sputum Sputum Culture - Final NORMAL UPPER RESPIRATORY SRUTHI PRESENT Complete Current Medications Medications (Trade) Dose Ordered Sig/[place] Route PRN Reason Start Time Stop Time Status Last Admin Dose Admin Albuterol/ Ipratropium (Albuterol/ Ipratropium) 3 ml Q4H PRN HHN dyspnea 10/06/17 18:30 10/10/17 18:29 10/08/17 10:24 Amlodipine Besylate (Norvasc) 5 mg DAILY ORAL 10/07/17 09:00 11/05/17 08:59 10/08/17 08:33 Atorvastatin Calcium (Lipitor) 40 mg BEDTIME ORAL 10/07/17 21:00 11/06/17 20:59 10/07/17 20:29 Dextrose (Dextrose 50%) STAT PRN IV Hypoglycemia 10/06/17 18:56 11/05/17 18:55 Docusate Sodium (Colace) 100 mg TWICE A DAY ORAL 10/07/17 18:00 11/06/17 17:59 10/08/17 08:28 Heparin Sodium (Porcine) (Heparin 5000 units/ml) 5,000 units EVERY 12 HOURS SUBQ 10/06/17 21:00 11/04/17 20:59 10/08/17 08:44 Hydrochlorothiazide (Hydrodiuril) 12.5 mg DAILY ORAL 10/07/17 16:00 11/06/17 15:59 10/08/17 08:27 Irbesartan (Avapro) 150 mg DAILY ORAL 10/08/17 09:00 11/07/17 08:59 10/08/17 08:28 Isosorbide Mononitrate (Imdur) 30 mg DAILY@1100 ORAL 10/07/17 15:21 11/06/17 15:20 10/08/17 11:35 Ketorolac Tromethamine (Toradol 30mg) 30 mg Q8H PRN IV moderate pain 4-6 10/06/17 21:00 10/10/17 12:59 Labetalol HCl (Normodyne) 100 mg DAILY@1100 ORAL 10/07/17 15:21 11/06/17 15:20 10/08/17 11:36 Lorazepam (Ativan 2mg/ml 1ml) 0.5 mg Q4H PRN IV For Anxiety 10/06/17 21:00 10/12/17 12:59 Methylprednisolone Sodium Succinate (Solu-MEDROL) 60 mg Q12H IVP 10/08/17 03:00 11/07/17 02:59 10/08/17 02:51 Montelukast Sodium (Singulair) 10 mg QPM ORAL 10/07/17 16:30 11/06/17 16:29 10/07/17 16:27 Morphine Sulfate (Morphine Sulfate) 2 mg Q4H PRN IVP severe pain 7-10 10/06/17 21:00 10/12/17 12:59 Nitroglycerin (Ntg) 0.4 mg Q5M X 3 DOSES PRN SL Prn Chest Pain 10/06/17 17:30 11/04/17 12:59 Ondansetron HCl (Zofran) 4 mg Q6H PRN IVP Nausea & Vomiting 10/06/17 19:00 11/04/17 12:59 Pantoprazole (Protonix) 40 mg DAILY ORAL 10/08/17 09:00 11/07/17 08:59 10/08/17 08:32 Phenytoin (Dilantin) 100 mg Q12HR ORAL 10/06/17 21:00 11/05/17 20:59 10/08/17 08:32 Piperacillin Sod/ Tazobactam Sod 2.25 gm/Sodium Chloride 55 ml @ 110 mls/hr EVERY 8 HOURS IV 10/06/17 22:00 10/13/17 23:59 10/08/17 05:53 Pregabalin (Lyrica) 50 mg Q12HR ORAL 10/06/17 21:00 11/04/17 20:59 10/08/17 08:36 Promethazine HCl/ Codeine (Phenergan with Codeine) 5 ml Q6H PRN ORAL cough 10/06/17 18:30 11/04/17 18:29 10/08/17 05:53 Temazepam (Restoril) 15 mg HSPRN PRN ORAL Insomnia 10/07/17 13:00 10/12/17 12:59 Theophylline (Fabrice-Dur) 100 mg EVERY 12 HOURS ORAL 10/06/17 21:00 11/04/17 20:59 10/08/17 08:42 [facility]New[facility]Jessica Salcedo NP Oct 08, 2017 14:00
--- NOTE | 2017-10-08 16:12 | Internal Med Progress Note ---
Subjective Date of Service: Oct 08, 2017 Physician Name Serrato,Rickie Attending Physician Shlomo Garcia MD Current Medications Medications (Trade) Dose Ordered Sig/Mecca Route PRN Reason Start Time Stop Time Status Last Admin Dose Admin Albuterol/ Ipratropium (Albuterol/ Ipratropium) 3 ml Q4H PRN HHN dyspnea 10/06/17 18:30 10/10/17 18:29 10/08/17 10:24 Amlodipine Besylate (Norvasc) 5 mg DAILY ORAL 10/07/17 09:00 11/05/17 08:59 10/08/17 08:33 Atorvastatin Calcium (Lipitor) 40 mg BEDTIME ORAL 10/07/17 21:00 11/06/17 20:59 10/07/17 20:29 Dextrose (Dextrose 50%) STAT PRN IV Hypoglycemia 10/06/17 18:56 11/05/17 18:55 Diphenhydramine HCl (Benadryl) 25 mg Q6H PRN ORAL Itching 10/08/17 14:45 11/07/17 14:44 10/08/17 14:58 Docusate Sodium (Colace) 100 mg TWICE A DAY ORAL 10/07/17 18:00 11/06/17 17:59 10/08/17 08:28 Heparin Sodium (Porcine) (Heparin 5000 units/ml) 5,000 units EVERY 12 HOURS SUBQ 10/06/17 21:00 11/04/17 20:59 10/08/17 08:44 Hydrochlorothiazide (Hydrodiuril) 12.5 mg DAILY ORAL 10/07/17 16:00 11/06/17 15:59 10/08/17 08:27 Irbesartan (Avapro) 150 mg DAILY ORAL 10/08/17 09:00 11/07/17 08:59 10/08/17 08:28 Isosorbide Mononitrate (Imdur) 30 mg DAILY@1100 ORAL 10/07/17 15:21 11/06/17 15:20 10/08/17 11:35 Ketorolac Tromethamine (Toradol 30mg) 30 mg Q8H PRN IV moderate pain 4-6 10/06/17 21:00 10/10/17 12:59 Labetalol HCl (Normodyne) 100 mg DAILY@1100 ORAL 10/07/17 15:21 3/5/18 15:20 10/08/17 11:36 Lorazepam (Ativan 2mg/ml 1ml) 0.5 mg Q4H PRN IV For Anxiety 10/06/17 21:00 10/12/17 12:59 Methylprednisolone Sodium Succinate (Solu-MEDROL) 60 mg DAILY IVP 10/09/17 09:00 11/07/17 02:59 Montelukast Sodium (Singulair) 10 mg QPM ORAL 10/07/17 16:30 11/06/17 16:29 10/07/17 16:27 Morphine Sulfate (Morphine Sulfate) 2 mg Q4H PRN IVP severe pain 7-10 10/06/17 21:00 10/12/17 12:59 Nitroglycerin (Ntg) 0.4 mg Q5M X 3 DOSES PRN SL Prn Chest Pain 10/06/17 17:30 11/04/17 12:59 Ondansetron HCl (Zofran) 4 mg Q6H PRN IVP Nausea & Vomiting 10/06/17 19:00 11/04/17 12:59 Pantoprazole (Protonix) 40 mg DAILY ORAL 10/08/17 09:00 11/07/17 08:59 10/08/17 08:32 Phenytoin (Dilantin) 100 mg Q12HR ORAL 10/06/17 21:00 11/05/17 20:59 10/08/17 08:32 Piperacillin Sod/ Tazobactam Sod 2.25 gm/Sodium Chloride 55 ml @ 110 mls/hr EVERY 8 HOURS IV 10/06/17 22:00 10/13/17 23:59 10/08/17 13:54 Pregabalin (Lyrica) 50 mg Q12HR ORAL 10/06/17 21:00 11/04/17 20:59 10/08/17 08:36 Promethazine HCl/ Codeine (Phenergan with Codeine) 5 ml Q6H PRN ORAL cough 10/06/17 18:30 11/04/17 18:29 10/08/17 05:53 Temazepam (Restoril) 15 mg HSPRN PRN ORAL Insomnia 10/07/17 13:00 10/12/17 12:59 Theophylline (Fabrice-Dur) 100 mg EVERY 12 HOURS ORAL 10/06/17 21:00 11/04/17 20:59 10/08/17 08:42 Allergies: Coded Allergies: VANCOMYCIN (Verified Allergy, Unknown, red eyes, itchying, 10/10/16) ROS Limited/Unobtainable: No Constitutional: Reports: no symptoms HEENT: Reports: no symptoms Cardiovascular: Reports: no symptoms Respiratory: Reports: shortness of breath Gastrointestinal/Abdominal: Reports: no symptoms Genitourinary: Reports: no symptoms Neurologic/Psychiatric: Reports: no symptoms Subjective 82 YO F admitted with shortness of breath. Now asthma exacerbation. Cover for Int Med-Dr Garcia. Objective Last Vital Signs Date Time Temp Pulse Resp B/P (MAP) Pulse Ox O2 Delivery O2 Flow Rate FiO2 10/08/17 12:04 98.3 90 18 149/73 97 10/08/17 10:26 Nasal Cannula 3.0 32 Microbiology Date/Time Source Procedure Growth Status 10/06/17 03:00 Sputum Gram Stain - Final Complete 10/06/17 03:00 Sputum Sputum Culture - Final NORMAL UPPER RESPIRATORY SRUTHI PRESENT Complete Intake and Output 10/07/17 10/08/17 19:00 07:00 Intake Total 830 ml 775 ml Balance 830 ml 775 ml Intake Oral 830 ml 720 ml IV Total 55 ml # Voids 4 4 # Bowel Movements 1 Objective General Appearance: WD/WN, alert, mild distress EENT: PERRL/EOMI, normal ENT inspection Neck: non-tender, normal alignment, supple Cardiovascular: normal peripheral pulses, normal rate, regular rhythm, no gallop/murmur, no JVD Respiratory/Chest: chest wall non-tender, respiratory distress, crackles/rales , rhonchi - bilaterally, expiratory wheezing Abdomen: normal bowel sounds, non tender, soft, no organomegaly, no mass Extremities: normal range of motion, non-tender 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 Cont IV steroids and theodur (6) HTN (hypertension) Assessment & Plan: Cont norvasc (7) Bronchitis Assessment & Plan: Continue zosyn Status: progressing Assessment/Plan Discharge planning RICKIE SERRATO Oct 08, 2017 16:12
[2017-10-08 16:23] VITALS: BP 138/71
[2017-10-08] MEDS: Montelukast 10mg tablet ORAL SCH (16:43)
--- NOTE | 2017-10-08 16:56 | Cardiology Report ---
APPROVED REPORT EKG Measurement Heart [id number] [place] 148P40 [id number] Normal sinus rhythm Septal infarct, age undetermined Rightward axis Abnormal ECG
[2017-10-08 20:00] VITALS: BP 139/65
[2017-10-08] MEDS: Atorvastatin 20mg tab ORAL SCH (20:01)
[2017-10-09] VITALS: BP 137/74
[2017-10-09 04:00] VITALS: BP 138/67
[2017-10-09] MEDS: Piperacillin/Tazobactam 2.25 GM in NS 55 ML IV SCH (06:42)
[2017-10-09 08:00] VITALS: BP 160/81
[2017-10-09] MEDS: Theophylline ER 100mg ORAL SCH ×2 (08:16→08:35)
[2017-10-09] MEDS: Phenytoin 100mg cap ORAL SCH (08:17)
[2017-10-09] MEDS: Docusate 100mg cap ORAL SCH ×2 (08:17→08:34)
[2017-10-09] MEDS: hydroCHLOROthiazide 12.5mg TAB ORAL SCH (08:17)
[2017-10-09] MEDS: Lyrica 50mg cap ORAL SCH (08:18)
[2017-10-09 08:19] VITALS: BP 160/81
[2017-10-09] MEDS: Solu-MEDROL 40mg Inj IVP SCH ×2 (08:19→08:34)
[2017-10-09] MEDS: Irbesartan 150mg tablet ORAL SCH (08:19)
[2017-10-09] MEDS: Heparin 5000 units/ml inj SUBQ SCH (08:20)
--- NOTE | 2017-10-09 09:47 | Diagnostic Imaging Report ---
Indication: Shortness of breath Technique: One view of the chest Comparison: none Findings: Granulomas consultations are seen in both lung apices. There is slight chronic-appearing thickening of the left lateral pleural space. No definite acute infiltrates, effusions, or congestion. Normal heart size. Tortuous calcified aorta. Old healed right rib fracture deformities are again demonstrated. Findings are unchanged Impression: Evidence of old granulomatous disease No definite acute process
[2017-10-09] MEDS ORDERED: ADVAIR 250-501 EACH INH (10:50)
[2017-10-09] MEDS ORDERED: MEDROL4 MG ORAL (10:50)
[2017-10-09] MEDS ORDERED: LEVAQUIN250 M1 ORAL (10:50)
[2017-10-09] MEDS ORDERED: RA COUGH-COLD237 ML PO (10:50)
[2017-10-09] MEDS: Imdur 30mg tab ORAL SCH (11:00)
--- NOTE | 2017-10-09 11:38 | Internal Med Progress Note ---
Subjective Date of Service: Oct 09, 2017 Physician Name SerratoRickie Attending Physician Shlomo Garcia MD Current Medications Medications (Trade) Dose Ordered Sig/Mecca Route PRN Reason Start Time Stop Time Status Last Admin Dose Admin Albuterol/ Ipratropium (Albuterol/ Ipratropium) 3 ml Q4H PRN HHN dyspnea 10/06/17 18:30 10/10/17 18:29 10/08/17 16:25 Amlodipine Besylate (Norvasc) 5 mg DAILY ORAL 10/07/17 09:00 11/05/17 08:59 10/09/17 08:19 Atorvastatin Calcium (Lipitor) 40 mg BEDTIME ORAL 10/07/17 21:00 11/06/17 20:59 10/08/17 20:01 Dextrose (Dextrose 50%) STAT PRN IV Hypoglycemia 10/06/17 18:56 11/05/17 18:55 Diphenhydramine HCl (Benadryl) 25 mg Q6H PRN ORAL Itching 10/08/17 14:45 11/07/17 14:44 10/08/17 14:58 Docusate Sodium (Colace) 100 mg TWICE A DAY ORAL 10/07/17 18:00 11/06/17 17:59 10/08/17 08:28 Heparin Sodium (Porcine) (Heparin 5000 units/ml) 5,000 units EVERY 12 HOURS SUBQ 10/06/17 21:00 11/04/17 20:59 10/08/17 20:02 Hydrochlorothiazide (Hydrodiuril) 12.5 mg DAILY ORAL 10/07/17 16:00 11/06/17 15:59 10/09/17 08:17 Irbesartan (Avapro) 150 mg DAILY ORAL 10/08/17 09:00 11/07/17 08:59 10/09/17 08:19 Isosorbide Mononitrate (Imdur) 30 mg DAILY@1100 ORAL 10/07/17 15:21 11/06/17 15:20 10/08/17 11:35 Ketorolac Tromethamine (Toradol 30mg) 30 mg Q8H PRN IV moderate pain 4-6 10/06/17 21:00 10/10/17 12:59 Labetalol HCl (Normodyne) 100 mg DAILY@1100 ORAL 10/07/17 15:21 3/5/18 15:20 10/08/17 11:36 Lorazepam (Ativan 2mg/ml 1ml) 0.5 mg Q4H PRN IV For Anxiety 10/06/17 21:00 10/12/17 12:59 Methylprednisolone Sodium Succinate (Solu-MEDROL) 60 mg DAILY IVP 10/09/17 09:00 11/07/17 02:59 Montelukast Sodium (Singulair) 10 mg QPM ORAL 10/07/17 16:30 11/06/17 16:29 10/08/17 16:43 Morphine Sulfate (Morphine Sulfate) 2 mg Q4H PRN IVP severe pain 7-10 10/06/17 21:00 10/12/17 12:59 Nitroglycerin (Ntg) 0.4 mg Q5M X 3 DOSES PRN SL Prn Chest Pain 10/06/17 17:30 11/04/17 12:59 Ondansetron HCl (Zofran) 4 mg Q6H PRN IVP Nausea & Vomiting 10/06/17 19:00 11/04/17 12:59 Pantoprazole (Protonix) 40 mg DAILY ORAL 10/08/17 09:00 11/07/17 08:59 10/08/17 08:32 Phenytoin (Dilantin) 100 mg Q12HR ORAL 10/06/17 21:00 11/05/17 20:59 10/09/17 08:17 Piperacillin Sod/ Tazobactam Sod 2.25 gm/Sodium Chloride 55 ml @ 110 mls/hr EVERY 8 HOURS IV 10/06/17 22:00 10/13/17 23:59 10/09/17 06:42 Pregabalin (Lyrica) 50 mg Q12HR ORAL 10/06/17 21:00 11/04/17 20:59 10/09/17 08:18 Promethazine HCl/ Codeine (Phenergan with Codeine) 5 ml Q6H PRN ORAL cough 10/06/17 18:30 11/04/17 18:29 10/08/17 20:05 Temazepam (Restoril) 15 mg HSPRN PRN ORAL Insomnia 10/07/17 13:00 10/12/17 12:59 Theophylline (Fabrice-Dur) 100 mg EVERY 12 HOURS ORAL 10/06/17 21:00 11/04/17 20:59 10/08/17 20:02 Allergies: Coded Allergies: VANCOMYCIN (Verified Allergy, Unknown, red eyes, itchying, 10/10/16) ROS Limited/Unobtainable: No Constitutional: Reports: no symptoms HEENT: Reports: no symptoms Cardiovascular: Reports: no symptoms Respiratory: Reports: no symptoms Gastrointestinal/Abdominal: Reports: no symptoms Genitourinary: Reports: no symptoms Neurologic/Psychiatric: Reports: no symptoms Subjective 82 YO F admitted with shortness of breath. Now asthma exacerbation. Cover for Int Med-Dr Garcia. Await discharge home today Objective Last Vital Signs Date Time Temp Pulse Resp B/P (MAP) Pulse Ox O2 Delivery O2 Flow Rate FiO2 10/09/17 08:19 160/81 10/09/17 08:19 96 10/09/17 08:00 98.7 18 98 10/08/17 16:26 Nasal Cannula 3.0 32 Intake and Output 10/08/17 10/09/17 19:00 07:00 Intake Total 480 ml Balance 480 ml Intake Oral 480 ml # Voids 3 Objective General Appearance: WD/WN, alert, mild distress EENT: PERRL/EOMI, normal ENT inspection Neck: non-tender, normal alignment, supple Cardiovascular: normal peripheral pulses, normal rate, regular rhythm, no gallop/murmur, no JVD Respiratory/Chest: chest wall non-tender, respiratory distress, crackles/rales , rhonchi - bilaterally, expiratory wheezing Abdomen: normal bowel sounds, non tender, soft, no organomegaly, no mass Extremities: normal range of motion, non-tender 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 Cont IV steroids and theodur (6) HTN (hypertension) Assessment & Plan: Cont norvasc (7) Bronchitis Assessment & Plan: Continue oral levaquin on discharge Status: stable Assessment/Plan Discharge home today [facility] RICKIE SERRATO Oct 09, 2017 11:38
--- NOTE | 2017-10-09 15:35 | Pulmonology Progress Note ---
Assessment/Plan Problems: (1) Acute asthma exacerbation (2) Bronchitis (3) HTN (hypertension) Assessment/Plan improving titrate fio2 check cultures dvt prophylaxis med/surg dc home today Subjective ROS Limited/Unobtainable: No Constitutional: Reports: no symptoms HEENT: Repors: no symptoms Allergies: Coded Allergies: VANCOMYCIN (Verified Allergy, Unknown, red eyes, itchying, 10/10/16) Objective Last 24 Hour Vital Signs Date Time Temp Pulse Resp B/P (MAP) Pulse Ox O2 Delivery O2 Flow Rate FiO2 10/09/17 08:19 160/81 10/09/17 08:19 96 160/81 10/09/17 08:00 98.7 96 18 160/81 98 10/09/17 04:00 98.0 71 18 138/67 100 10/09/17 00:00 98.1 76 20 137/74 98 10/08/17 20:00 98.0 81 21 139/65 97 10/08/17 16:26 86 20 98 Nasal Cannula 3.0 32 10/08/17 16:26 32 10/08/17 16:23 98.3 80 22 138/71 97 10/08/17 16:23 86 20 96 Nasal Cannula 3.0 32 Intake and Output 10/08/17 10/09/17 19:00 07:00 Intake Total 480 ml Balance 480 ml Intake Oral 480 ml # Voids 3 General Appearance: WD/WN HEENT: normocephalic Respiratory/Chest: chest wall non-tender, lungs clear Breasts: no masses Cardiovascular: normal peripheral pulses Abdomen: normal bowel sounds, soft, non tender Genitourinary: normal external genitalia Extremities: no cyanosis Skin: no rash 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
--- NOTE | 2017-10-11 13:42 | Discharge Summary ---
Discharge Summary Hospital Course Date of Admission Oct 05, 2017 at 10:42 Date of Discharge Oct 09, 2017 at 11:45 Admitting Diagnosis ASTHMA EXACERBATION HPI Megan Harmon is a 82 year old female who was admitted on Oct 05, 2017 at 10:42 for Asthma Exacerbation Hospital Course dc summary #[id number] Discharge Medications New Medications: Fluticasone/Salmeterol (Advair 250-50 Diskus) 1 Each Blst.w.dev 1 PUFF INH EVERY 12 HOURS, #1 EA Guaifen/Dextromethorphan/PE (Ra Cough-Cold Mucus Rlf Cf Liq) 237 Ml Liquid 10 ML PO Q6HR PRN, #1 ML Levofloxacin* (Levaquin*) 250 Mg Tablet 250 MG ORAL DAILY, #4 TAB Methylprednisolone* (Medrol*) 4 Mg Tablet 4 MG ORAL DAILY, #10 TAB 0 Refills Continued Medications: Albuterol Sulfate (Ventolin Hfa) 18 Gm Hfa.aer.ad 1 PUFF INH EVERY 6 HOURS for cough, SOB, #18 GM 0 Refills Amlodipine Besylate* (Amlodipine Besylate*) 5 Mg Tablet 5 MG ORAL DAILY, TAB Aspirin* (Aspir 81*) 81 Mg Tablet. 81 MG ORAL DAILY, TAB Atorvastatin Calcium* (Atorvastatin Calcium*) 20 Mg Tablet 20 MG ORAL BEDTIME, TAB Clopidogrel* (Clopidogrel*) 75 Mg Tablet 75 MG ORAL DAILY, TAB Dexlansoprazole (Dexilant) 60 Mg Cap.bp 60 MG ORAL QHS, CAP Montelukast Sodium* (Montelukast Sodium*) 10 Mg Tablet 10 MG ORAL DAILY, TAB Phenytoin Sodium Extended* (Phenytoin Sodium Extended*) 100 Mg Capsule 100 MG ORAL BEDTIME, #60 CAP 0 Refills Pregabalin (Lyrica) 50 Mg Capsule 50 MG ORAL Q12HR, CAP Discharge Condition Upon Discharge: stable Discharge Disposition Patient was discharged to Home with Home Health(06) Discharge Diagnoses: Frantz (Abel)Jessica NP Oct 11, 2017 13:42
--- NOTE | 2017-10-12 03:02 | Discharge Summary 2 SIG ---
DATE OF ADMISSION: 10/05/2017 DATE OF DISCHARGE: 10/09/2017 REASON FOR ADMISSION: 82 years old female with a history of asthma and hypertension, presented to the emergency department by paramedics due to the shortness of breath. The patient had wheezing on exam and reduced air movement. She was given epinephrine injection as well as the bronchodilator prior to arrival by assistant wrestling coach with some improvement. However, she still was in respiratory distress upon arrival and needed to be admitted to [facility] for further management. The patient initially with acute hypercapnic hypoxemic respiratory failure requiring BiPAP. There was no leukocytosis. Stable vital signs. Troponin negative. Chest x-ray revealed stable nodular density in the left upper lung, possibly related to calcified granuloma. The patient was admitted with diagnosis of acute respiratory failure, asthma exacerbation, bronchitis, and hypertension. HOSPITAL COURSE: The patient admitted. Pulmonary consult was requested. The patient initially presented with acute hypercapnic hypoxemic respiratory failure requiring BiPAP, which resolved. The patient was able to be weaned from the BiPAP down to initially oxygen via nasal cannula and then to the room air. The patient was on the IV steroids, which were gradually tapered and changed to Medrol Dosepak upon discharge. The patient was on empiric antibiotics. Sputum culture was negative. Antitussives provided as needed. The patient was followed up with chest x-ray. Trial of theophylline started. Follow up chest x-ray revealed evidence of old granulomatous disease, but no acute changes. Blood pressure was managed with calcium-channel steph. Statin was continued. DVT prophylaxis provided. Seizure precautions provided. The patient was observed for any paroxysmal event. Dilantin was continued. No seizure activity noted. The patient was slowly improving. The patient was stable for discharge home. Follow up with the primary care provider. FINAL DIAGNOSES: 1. Acute hypercapnic hypoxemic respiratory failure requiring BiPAP initially, resolved. 2. Acute asthma exacerbation. 3. Acute bronchitis. 4. Hypertension. 5. Gastroesophageal reflux disease. 6. High cholesterol. 7. 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 8. Seizure disorder. DISCHARGE MEDICATIONS: See medication reconciliation list. DISCHARGE INSTRUCTIONS: The patient was discharged home with home health services. Follow up with primary medical doctor next week. Shlomo Garcia M.D. Jessica Landry N.P. (Vanchtein) DR: GWEN JOB#: [id number] CC: RANULFO
== END 2017-10-09 11:45 | disposition home health service (06) | DRG 202 ==
LOC: EDBD 09:56 → EDBEDREQ 10:24 → EMR 10:37 → 2W 10:42 → EDBEDREQ 11:08 → 2W 12:52 → 3E 10-06 17:39
PROC: 5A09357 Assistance with Respiratory Ventilation, Less than 24 Consecutive Hours, Continuous Positive Airway Pressure (ICD-10-PCS; principal; 2017-10-05)
DX: J45.901 Unspecified asthma with (acute) exacerbation (principal); J96.01 Acute respiratory failure with hypoxia; J96.02 Acute respiratory failure with hypercapnia; J20.9 Acute bronchitis, unspecified; G40.909 Epilepsy, unspecified, not intractable, without status epilepticus; I10 Essential (primary) hypertension; Z86.73 Personal history of transient ischemic attack (TIA), and cerebral infarction without residual deficits; E78.00 Pure hypercholesterolemia, unspecified; K21.9 Gastro-esophageal reflux disease without esophagitis; Z88.1 Allergy status to other antibiotic agents; Z23 Encounter for immunization
CPT/HCPCS: 36415; 36600; 71045; 80048; 80053; 81001; 82550; 82553; 82803; 83880; 84484; 85025; 87070; 87081; 87205; 90630; 90732; 93005; 94640; 94660; 94664; 99285; J7620

== ENCOUNTER 2018-02-03 00:22 | Inpatient (IN) | payer MEDICARE, MEDICAID ==
[2018-02-03] VITALS (8 sets, daily range): BP systolic 119–146; BP diastolic 50–81
[~2018-02-03] VITALS: Ht 157.5 cm; Wt 65.3 kg
[~2018-02-03 00:22] MED LIST changes: +ADVAIR 250-501 EACH INH; +ASPIR 8181 MG ORAL; +CLOPIDOGREL75 MG ORAL; +LEVAQUIN250 M1 ORAL; +MEDROL4 MG ORAL; +RA COUGH-COLD237 ML PO
[2018-02-03] MEDS ORDERED: Solu-MEDROL 125mg Inj IVP ONE (00:30)
[2018-02-03] MEDS ORDERED: Albuterol ud Inhalation HHN ONE ×2 (00:30→01:45)
[2018-02-03] MEDS ORDERED: Ipratropium 0.02% Inh Soln 2.5ml UD HHN ONE (00:30)
[2018-02-03 00:48] LABS: BASOPHILS % (AUTO) 0.4 % (0.0-2.0); EOSINOPHILS % (AUTO) 11.2 % (0.0-3.0); HEMOGLOBIN 13.7 G/DL (12.0-16.0); LYMPHOCYTES % (AUTO) 36.4 % (20.0-45.0); MEAN CORPUSCULAR VOLUME 89 FL (80-99); MONOCYTES % (AUTO) 8.8 % (1.0-10.0); NEUTROPHILS % (AUTO) 43.2 % (45.0-75.0); PLATELET COUNT 177 K/UL (150-450); RED BLOOD COUNT 4.39 M/UL (4.20-5.40); RED CELL DISTRIBUTION WIDTH 11.6 % (11.6-14.8); WHITE BLOOD COUNT 5.9 K/UL (4.8-10.8)
[2018-02-03 00:59] LABS: ANION GAP 4 mmol/L (5-15); BLOOD UREA NITROGEN 22 mg/dL (7-18); CALCIUM 8.8 MG/DL (8.5-10.1); CARBON DIOXIDE 34 MMOL/L (21-32); CHLORIDE 101 MMOL/L (98-107); CREATININE 0.8 MG/DL (0.55-1.30); POTASSIUM 3.6 MMOL/L (3.5-5.1); SODIUM 139 MMOL/L (136-145)
[2018-02-03 01:13] LABS: APPEARANCE,URINE CLEAR; BILIRUBIN, URINE NEGATIVE (NEGATIVE); COLOR,URINE PALE YELLOW; GLUCOSE, URINE (UA) NEGATIVE (NEGATIVE); KETONES,URINE NEGATIVE (NEGATIVE); LEUKOCYTE ESTERASE ,URINE NEGATIVE (NEGATIVE); NITRITE,URINE NEGATIVE (NEGATIVE); PH,URINE 7 (4.5-8.0); PROTEIN,URINE 3+ (NEGATIVE); UROBILINOGEN,URINE NORMAL MG/DL (0.0-1.0)
[2018-02-03 01:21] LABS: ALANINE AMINOTRANSFERASE 27 U/L (12-78); ALBUMIN 3.5 G/DL (3.4-5.0); ALBUMIN/GLOBULIN RATIO 0.8 (1.0-2.7); ALKALINE PHOSPHATASE 97 U/L (46-116); ASPARTATE AMINO TRANSFERASE 17 U/L (15-37); BILIRUBIN,TOTAL 0.3 MG/DL (0.2-1.0); CKMB 1.7 NG/ML (0.0-3.6); CREATINE KINASE 226 U/L (26-308)
--- NOTE | 2018-02-03 02:13 | Emergency Room Report ---
History of Present Illness General Chief Complaint: Dyspnea/Respdistress Source: Patient, Medical Record, EMS Present Illness HPI Is an 83-year-old Croatian speaking female presents with chief complaint shortness of breath and respiratory distress. She has a history of asthma and was admitted here in October for the same. She presents with shortness of breath that started tonight. No relief with her inhaler. Worse with exertion. Better with rest. EMS gave her breathing treatment and put on oxygen. Per team leader, she was saturating at high 80 percentile. Allergies: Coded Allergies: VANCOMYCIN (Verified Allergy, Unknown, red eyes, itchying, 10/10/16) Patient History Past Medical History: see triage record, old chart reviewed, HTN, asthma Past Surgical History: other Pertinent Family History: none Social History: Denies: smoking Now: No Immunizations: other Reviewed Nursing Documentation: PMH: Agreed; PSxH: Agreed Nursing Documentation-PMH Hx Cardiac Problems: Yes Hx Hypertension: Yes Hx Asthma: Yes Hx Cancer: No Hx Gastrointestinal Problems: No Hx Neurological Problems: Yes Hx Cerebrovascular Accident: Yes - 1995 Hx Seizures: Yes Review of Systems Eye: Denies: eye pain, blurred vision ENT: Denies: ear pain, nose congestion, throat swelling Respiratory: Reports: cough, shortness of breath, wheezing Cardiovascular: Denies: chest pain, palpitations Gastrointestinal: Denies: abdominal pain, diarrhea, nausea, vomiting Musculoskeletal: Denies: back pain, joint pain Skin: Denies: rash Neurological: Denies: headache, numbness Endocrine: Denies: increased thirst, increased urine Hematologic/Lymphatic: Denies: easy bruising All Other Systems: negative except mentioned in HPI Physical Exam Vital Signs Date Time Temp Pulse Resp B/P (MAP) Pulse Ox O2 Delivery O2 Flow Rate FiO2 02/03/18 00:11 98.0 72 24 168/84 93 Room Air 98.1 02/03/18 00:26 2.0 28 vitals with high blood pressure Sp02 EP Interpretation: abnormal General Appearance: moderate distress Head: normocephalic, atraumatic Eyes: bilateral eye PERRL, bilateral eye EOMI ENT: hearing grossly normal, normal pharynx Neck: full range of motion, supple, no meningismus Respiratory: chest non-tender, respiratory distress, decreased breath sounds, wheezing Cardiovascular #1: regular rate, rhythm, no murmur Gastrointestinal: normal bowel sounds, non tender, no mass, no organomegaly, no bruit, non-distended Musculoskeletal: back normal, normal range of motion Psychiatric: mood/affect normal Skin: warm/dry Procedures Critical Care Time Critical Care Time Critical care is mandated in this patient who presented with respiratory distress secondary to status asthmaticus. Patient require my urgent intervention to attenuate the risks of respiratory collapse which may lead to cardiovascular collapse and . Critical care time is 35 minutes excluding any reportable procedure. Critical care time included evaluation, multiple reevaluation, looking at old charts, interpreting laboratory and diagnostic data , discussing case with patient and family and consultants, and charting. Medical Decision Making Diagnostic Impression: Primary Impression: Status asthmaticus Qualified Codes: J45.52 - Severe persistent asthma with status asthmaticus Additional Impressions: Hypertension Qualified Codes: I10 - Essential (primary) hypertension Proteinuria Qualified Codes: R80.9 - Proteinuria, unspecified ER Course This patient presents with status asthmaticus. No evidence of bacterial infection. No evidence of ACS, PE, dissection at this moment in time. Labs unremarkable. She is improved greatly but still slightly wheezing. Will admit for further treatment. I contacted Dr. Garcia for admission. Lab Results Impression labs unremarkable EKG Diagnostic Results Rate: normal Rhythm: NSR ST Segments: no acute changes Rhythm Strip Diag. Results Rhythm Strip Time: 02:13 EP Interpretation: yes Rate: 79 Rhythm: NSR, no PVC's, no ectopy Chest X-Ray Diagnostic Results Chest X-Ray Diagnostic Results : Chest X-Ray Ordered: Yes # of Views/Limited/Complete: 1 View Indication: Shortness of Breath EP Interpretation: Yes Interpretation: no consolidation, no effusion, no pneumothorax, no acute cardiopulmonary disease Impression: No acute disease Electronically Signed by: Dandre Brown MD Last Vital Signs Date Time Temp Pulse Resp B/P (MAP) Pulse Ox O2 Delivery O2 Flow Rate FiO2 02/03/18 01:50 68 18 98 Nasal Cannula 2.0 28 02/03/18 00:30 98.2 143/54 98.2 Status: improved Disposition: ADMITTED INPATIENT Condition: Serious DANDRE BROWN M.D. Feb 03, 2018 02:13
[2018-02-03] MEDS ORDERED: UNOBMED (02:56)
--- NOTE | 2018-02-03 05:37 | Diagnostic Imaging Report ---
EXAM: XR Chest, 1 View CLINICAL HISTORY: SOB TECHNIQUE: Frontal view of the chest. COMPARISON: 10/09/17 FINDINGS: Cardiac and mediastinal silhouette appear stable in appearance. No interval consolidation, overt edema or other significant interval change. Old fractures, old granulomatous disease and other unchanged findings. IMPRESSION: No consolidation or other significant interval change allowing for differences in technique.
[2018-02-03] MEDS ORDERED: Morphine Sulfate 4mg/ml Inj IVP PRN (06:15)
[2018-02-03] MEDS ORDERED: Miralax 17gm pkt ORAL PRN (06:15)
[2018-02-03] MEDS ORDERED: Milk of Magnesia 30ml Ud ORAL PRN (06:15)
[2018-02-03] MEDS ORDERED: Acetaminophen 650 MG SUPP RECTAL PRN ×2 (06:15)
[2018-02-03] MEDS ORDERED: Zolpidem 5mg tab ORAL PRN (06:15)
[2018-02-03] MEDS ORDERED: Albuterol/Ipratropium 3ml neb INH PRN (06:15)
[2018-02-03] MEDS ORDERED: Albuterol/Ipratropium 3ml neb INH SCH (07:00)
[2018-02-03] MEDS: Aspirin EC 81mg tab ORAL SCH (08:40)
[2018-02-03] MEDS: Phenytoin 100mg cap ORAL SCH (08:41)
[2018-02-03] MEDS: Montelukast 10mg tablet ORAL SCH (08:41)
[2018-02-03] MEDS: Solu-MEDROL 125mg Inj IV SCH ×3 (08:44→21:40)
[2018-02-03] MEDS: Docusate 100mg cap ORAL SCH ×2 (08:44→20:31)
[2018-02-03] MEDS: Lyrica 50mg cap ORAL SCH ×2 (08:45→20:48)
[2018-02-03] MEDS ORDERED: Advair 250/50 Inhaler - 14 dose INH SCH (09:00)
[2018-02-03] MEDS ORDERED: Aspirin Baby 81mg ORAL SCH (09:00)
--- NOTE | 2018-02-03 09:54 | Consultation ---
History of Present Illness General Date patient seen: Feb 03, 2018 Chief Complaint: Dyspnea/Respdistress Present Illness HPI 83-year-old Khmer speaking female with hx of asthma, HTN presented to ER with chief complaint shortness of breath and respiratory distress that started last night. No relief with her inhaler. Worse with exertion. Better with rest. EMS gave her breathing treatment and put on oxygen. 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 On arrival to ER she was in respiratory distress. She received Solumedrol 125 mg and Magnesium. She improved somewhat. She is admitted to telemetry for further w/u. Allergies: Coded Allergies: VANCOMYCIN (Verified Allergy, Unknown, red eyes, itchying, 10/10/16) Medication History Scheduled Albuterol Sulfate (Ventolin Hfa), 1 PUFF INH EVERY 6 HOURS Amlodipine Besylate* (Amlodipine Besylate*), 5 MG ORAL DAILY, (Reported) Aspirin* (Aspir 81*), 81 MG ORAL DAILY, (Reported) Atorvastatin Calcium* (Atorvastatin Calcium*), 20 MG ORAL BEDTIME, (Reported) Clopidogrel* (Clopidogrel*), 75 MG ORAL DAILY, (Reported) Dexlansoprazole (Dexilant), 60 MG ORAL QHS, (Reported) Fluticasone/Salmeterol (Advair 250-50 Diskus), 1 PUFF INH EVERY 12 HOURS Labetalol Hcl* (Normodyne*), 100 MG ORAL EVERY 12 HOURS, (Reported) Levocetirizine Dihydrochloride (Levocetirizine Dihydrochloride), 5 MG ORAL DAILY , (Reported) Levofloxacin* (Levaquin*), 250 MG ORAL DAILY Methylprednisolone* (Medrol*), 4 MG ORAL DAILY Montelukast Sodium* (Montelukast Sodium*), 10 MG ORAL DAILY, (Reported) Phenytoin Sodium Extended* (Phenytoin Sodium Extended*), 100 MG ORAL DAILY, ( Reported) Phenytoin Sodium Extended* (Phenytoin Sodium Extended*), 100 MG ORAL BEDTIME, ( Reported) Pregabalin (Lyrica), 50 MG ORAL Q12HR, (Reported) Valsartan/Hydrochlorothiazide 160-12.5 (Valsartan-Hctz 160-12.5 Mg Tab), 1 TAB ORAL Q12HR, (Reported) Scheduled PRN Guaifen/Dextromethorphan/PE (Ra Cough-Cold Mucus Rlf Cf Liq), 10 ML PO Q6HR PRN Miscellaneous Medications Unable to Obtain Medications (Unable To Obtain Meds), (Reported) Patient History Healthcare decision maker Resuscitation status Full Code Advanced Directive on File No Past Medical/Surgical History Past Medical/Surgical History: (1) Hypertension (2) Status asthmaticus Review of Systems Respiratory: Reports: cough, shortness of breath, wheezing All Other Systems: negative except mentioned in HPI Physical Exam General Appearance: WD/WN, mild distress HEENT: normocephalic, atraumatic Neck: non-tender, normal alignment Respiratory/Chest: chest wall non-tender, lungs clear Cardiovascular/Chest: normal peripheral pulses Abdomen: normal bowel sounds Skin Exam: normal pigmentation Neurologic: 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 II-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 grossly normal Last 24 Hour Vital Signs Date Time Temp Pulse Resp B/P (MAP) Pulse Ox O2 Delivery O2 Flow Rate FiO2 02/03/18 08:45 76 134/73 02/03/18 08:45 76 134/73 02/03/18 08:44 79 16 99 Nasal Cannula 2.0 28 02/03/18 08:34 76 16 96 Nasal Cannula 2.0 28 02/03/18 08:11 98.1 76 20 134/73 96 Nasal Cannula 2.0 98.1 02/03/18 04:47 97.9 73 20 146/81 98 Nasal Cannula 2.0 97.9 02/03/18 03:55 98.2 72 18 128/61 97 Nasal Cannula 2.0 98.2 02/03/18 03:40 98.2 72 18 128/61 97 Nasal Cannula 2.0 98.2 02/03/18 02:05 98.1 74 17 130/68 99 Nasal Cannula 2.0 98.1 02/03/18 01:50 68 18 98 Nasal Cannula 2.0 28 02/03/18 01:40 61 19 96 Nasal Cannula 2.0 28 02/03/18 00:49 79 22 99 Nasal Cannula 2.0 28 02/03/18 00:32 72 21 97 Nasal Cannula 2.0 28 02/03/18 00:30 72 21 Nasal Cannula 2.0 02/03/18 00:30 98.2 72 21 143/54 93 Nasal Cannula 2.0 98.2 02/03/18 00:26 72 21 Nasal Cannula 2.0 28 02/03/18 00:11 98.0 72 24 168/84 93 Room Air 98.1 Intake and Output 02/02/18 02/03/18 19:00 07:00 Intake Total 200 ml Balance 200 ml IV Total 200 ml # Voids 2 Laboratory Tests Test 02/03/18 00:35 02/03/18 01:00 White Blood Count 5.9 K/UL (4.8-10.8) Red Blood Count 4.39 M/UL (4.20-5.40) Hemoglobin 13.7 G/DL (12.0-16.0) Hematocrit 39.0 % (37.0-47.0) Mean Corpuscular Volume 89 FL (80-99) Mean Corpuscular Hemoglobin 31.2 PG (27.0-31.0) H Mean Corpuscular Hemoglobin Concent 35.1 G/DL (32.0-36.0) Red Cell Distribution Width 11.6 % (11.6-14.8) Platelet Count 177 K/UL (150-450) Mean Platelet Volume 7.0 FL (6.5-10.1) Neutrophils (%) (Auto) 43.2 % (45.0-75.0) L Lymphocytes (%) (Auto) 36.4 % (20.0-45.0) Monocytes (%) (Auto) 8.8 % (1.0-10.0) Eosinophils (%) (Auto) 11.2 % (0.0-3.0) H Basophils (%) (Auto) 0.4 % (0.0-2.0) Sodium Level 139 MMOL/L (136-145) Potassium Level 3.6 MMOL/L (3.5-5.1) Chloride Level 101 MMOL/L (98-107) Carbon Dioxide Level 34 MMOL/L (21-32) H Anion Gap 4 mmol/L (5-15) L Blood Urea Nitrogen 22 mg/dL (7-18) H Creatinine 0.8 MG/DL (0.55-1.30) Estimat Glomerular Filtration Rate mL/min (>60) Glucose Level 120 MG/DL (74-106) H Calcium Level 8.8 MG/DL (8.5-10.1) Total Bilirubin 0.3 MG/DL (0.2-1.0) Aspartate Amino Transf (AST/SGOT) 17 U/L (15-37) Alanine Aminotransferase (ALT/SGPT) 27 U/L (12-78) Alkaline Phosphatase 97 U/L (46-116) Total Creatine Kinase 226 U/L (26-308) Creatine Kinase MB 1.7 NG/ML (0.0-3.6) Creatine Kinase MB Relative Index 0.7 Troponin I 0.000 ng/mL (0.000-0.056) Pro-B-Type Natriuretic Peptide 73 pg/mL (0-125) Total Protein 7.9 G/DL (6.4-8.2) Albumin 3.5 G/DL (3.4-5.0) Globulin 4.4 g/dL Albumin/Globulin Ratio 0.8 (1.0-2.7) L Urine Color Pale yellow Urine Appearance Clear Urine pH 7 (4.5-8.0) Urine Specific [place] 1.010 (1.005-1.035) Urine Protein 3+ (NEGATIVE) H Urine Glucose (UA) Negative (NEGATIVE) Urine Ketones Negative (NEGATIVE) Urine Occult Blood 1+ (NEGATIVE) H Urine Nitrite Negative (NEGATIVE) Urine Bilirubin Negative (NEGATIVE) Urine Urobilinogen Normal MG/DL (0.0-1.0) Urine Leukocyte Esterase Negative (NEGATIVE) Urine RBC 0-2 /HPF (0 - 2) Urine WBC 0-2 /HPF (0 - 2) Urine Squamous Epithelial Cells Occasional /LPF Urine Bacteria Occasional /HPF (NONE) Height (Feet): 5 Height (Inches): 2.00 Weight (Pounds): 144 Medications Current Medications Medications (Trade) Dose Ordered Sig/[place] Route PRN Reason Start Time Stop Time Status Last Admin Dose Admin Acetaminophen (Tylenol) 650 mg Q4H PRN ORAL Mild Pain (Pain Scale 1-3) 02/03/18 06:15 03/05/18 06:14 Acetaminophen (Tylenol) 650 mg Q4H PRN ORAL fever 02/03/18 06:15 03/05/18 06:14 Acetaminophen (Tylenol) 650 mg Q4H PRN RECTAL Mild Pain (Pain Scale 1-3) 02/03/18 06:15 03/05/18 06:14 Acetaminophen (Tylenol) 650 mg Q4H PRN RECTAL fever 02/03/18 06:15 03/05/18 06:14 Albuterol/ Ipratropium (Albuterol/ Ipratropium) 3 ml Q4H PRN INH Shortness of Breath 02/03/18 06:15 02/08/18 06:14 Albuterol/ Ipratropium (Albuterol/ Ipratropium) 3 ml Q8HRT INH 02/03/18 07:00 02/08/18 06:59 02/03/18 08:34 Amlodipine Besylate (Norvasc) 5 mg DAILY ORAL 02/03/18 09:00 03/05/18 08:59 02/03/18 08:45 Aspirin (Ecotrin) 81 mg DAILY ORAL 02/03/18 09:00 03/05/18 08:59 02/03/18 08:40 Atorvastatin Calcium (Lipitor) 20 mg BEDTIME ORAL 02/03/18 21:00 03/05/18 20:59 Bisacodyl (Dulcolax) 10 mg DAILYPRN PRN RECTAL Constipation 02/03/18 06:15 03/05/18 06:14 Clopidogrel Bisulfate (Plavix) 75 mg DAILY ORAL 02/03/18 09:00 03/05/18 08:59 02/03/18 08:43 Dextrose (Dextrose 50%) 25 ml STAT PRN IV Hypoglycemia 02/03/18 06:15 03/05/18 06:14 Dextrose (Dextrose 50%) 50 ml STAT PRN IV Hypoglycemia 02/03/18 06:15 03/05/18 06:14 Docusate Sodium (Colace) 100 mg EVERY 12 HOURS ORAL 02/03/18 09:00 03/05/18 08:59 02/03/18 08:44 Heparin Sodium (Porcine) (Heparin 5000 units/ml) 5,000 units EVERY 8 HOURS SUBQ 02/03/18 14:00 03/05/18 13:59 Insulin Aspart (NovoLOG) BEFORE MEALS AND HS SUBQ 02/03/18 11:30 03/05/18 11:29 Labetalol HCl (Normodyne) 100 mg EVERY 12 HOURS ORAL 02/03/18 09:00 03/05/18 08:59 02/03/18 08:45 Levofloxacin 50 ml @ 50 mls/hr Q24H IVPB 02/04/18 08:00 02/11/18 07:59 Magnesium Hydroxide (Mom) 30 ml HSPRN PRN ORAL Constipation 02/03/18 06:15 03/05/18 06:14 Methylprednisolone Sodium Succinate (Solu-MEDROL) 80 mg EVERY 8 HOURS IV 02/03/18 07:30 03/05/18 07:29 02/03/18 08:44 Montelukast Sodium (Singulair) 10 mg DAILY ORAL 02/03/18 09:00 03/05/18 08:59 02/03/18 08:41 Morphine Sulfate (Morphine Sulfate) 4 mg Q4H PRN IVP Severe Pain (Pain Scale 7-10) 02/03/18 06:15 02/10/18 06:14 Ondansetron HCl (Zofran) 4 mg Q6H PRN IVP Nausea & Vomiting 02/03/18 06:15 03/05/18 06:14 Pantoprazole (Protonix) 40 mg DAILY ORAL 02/03/18 09:00 03/05/18 08:59 02/03/18 08:43 Phenytoin (Dilantin) 100 mg BEDTIME ORAL 02/03/18 21:00 03/05/18 20:59 Phenytoin (Dilantin) 100 mg DAILY ORAL 02/03/18 09:00 03/05/18 08:59 02/03/18 08:41 Polyethylene Glycol (Miralax) 17 gm DAILYPRN PRN ORAL Constipation 02/03/18 06:15 03/05/18 06:14 Pregabalin (Lyrica) 50 mg Q12HR ORAL 02/03/18 09:00 03/05/18 08:59 02/03/18 08:45 Salmeterol Xinafoate/ Fluticasone (Advair 250/50 Diskus) 1 puffs EVERY 12 HOURS INH 02/03/18 09:00 03/05/18 08:59 UNV Zolpidem Tartrate (Ambien) 5 mg DAILYPRN PRN ORAL Insomnia 02/03/18 06:15 02/10/18 06:14 Assessment/Plan Problem List: (1) Acute respiratory failure ICD Codes: J96.00 - Acute respiratory failure, unspecified whether with hypoxia or hypercapnia SNOMED: 95956249 (2) Acute asthma exacerbation ICD Codes: J45.901 - Unspecified asthma with (acute) exacerbation SNOMED: 035997920 (3) HTN (hypertension) ICD Codes: I10 - Essential (primary) hypertension SNOMED: 44644135 Assessment/Plan respiratory treatment IV steroids check sputum iv abx titrate fio2 to sat of 92% avoid B-blockers for BP control, dc Labetolol. dvt prophylaxis sputum induction for c/s Luis A Juares MD Feb 03, 2018 09:54
[2018-02-03] MEDS ORDERED: Promethazine/Codeine 5ml UD ORAL PRN (10:00)
[2018-02-03] MEDS: Albuterol/Ipratropium 3ml neb HHN SCH ×4 (12:02→20:38)
[2018-02-03] MEDS: NovoLOG Insulin Flexpen SUBQ SCH ×3 (12:39→20:50)
--- NOTE | 2018-02-03 13:25 | History & Physical ---
History and Physical History & Physicial Dictated for Int Med-Dr Garcia no. [id number]. Hank Toure MD Feb 03, 2018 13:25
[2018-02-03] MEDS: Heparin 5000 units/ml inj SUBQ SCH ×2 (14:27→21:42)
--- NOTE | 2018-02-03 16:22 | Consultation ---
History of Present Illness General Date patient seen: Feb 03, 2018 Chief Complaint: Dyspnea/Respdistress Present Illness HPI 83-year-old Portuguese speaking female with hx of asthma, HTN presented to ER with chief complaint shortness of breath and respiratory distress Initial troponin negative, CXR clear. Allergies: Coded Allergies: VANCOMYCIN (Verified Allergy, Unknown, red eyes, itchying, 10/10/16) Medication History Scheduled Albuterol Sulfate (Ventolin Hfa), 1 PUFF INH EVERY 6 HOURS Amlodipine Besylate* (Amlodipine Besylate*), 5 MG ORAL DAILY, (Reported) Aspirin* (Aspir 81*), 81 MG ORAL DAILY, (Reported) Atorvastatin Calcium* (Atorvastatin Calcium*), 20 MG ORAL BEDTIME, (Reported) Clopidogrel* (Clopidogrel*), 75 MG ORAL DAILY, (Reported) Dexlansoprazole (Dexilant), 60 MG ORAL QHS, (Reported) Fluticasone/Salmeterol (Advair 250-50 Diskus), 1 PUFF INH EVERY 12 HOURS Labetalol Hcl* (Normodyne*), 100 MG ORAL EVERY 12 HOURS, (Reported) Levocetirizine Dihydrochloride (Levocetirizine Dihydrochloride), 5 MG ORAL DAILY , (Reported) Levofloxacin* (Levaquin*), 250 MG ORAL DAILY Methylprednisolone* (Medrol*), 4 MG ORAL DAILY Montelukast Sodium* (Montelukast Sodium*), 10 MG ORAL DAILY, (Reported) Phenytoin Sodium Extended* (Phenytoin Sodium Extended*), 100 MG ORAL DAILY, ( Reported) Phenytoin Sodium Extended* (Phenytoin Sodium Extended*), 100 MG ORAL BEDTIME, ( Reported) Pregabalin (Lyrica), 50 MG ORAL Q12HR, (Reported) Valsartan/Hydrochlorothiazide 160-12.5 (Valsartan-Hctz 160-12.5 Mg Tab), 1 TAB ORAL Q12HR, (Reported) Scheduled PRN Guaifen/Dextromethorphan/PE (Ra Cough-Cold Mucus Rlf Cf Liq), 10 ML PO Q6HR PRN Miscellaneous Medications Unable to Obtain Medications (Unable To Obtain Meds), (Reported) Patient History Limited by: language barrier History Provided By: Medical Record Healthcare decision maker Resuscitation status Full Code Advanced Directive on File No Review of Systems Constitutional: Reports: no symptoms Eye: Reports: no symptoms ENT: Reports: no symptoms Respiratory: Reports: shortness of breath Cardiovascular: Reports: no symptoms Gastrointestinal: Reports: no symptoms Genitourinary: Reports: no symptoms Musculoskeletal: Reports: no symptoms Skin: Reports: no symptoms Psychiatric: Reports: no symptoms Neurological: Reports: no symptoms Endocrine: Reports: no symptoms Hematologic/Lymphatic: Reports: no symptoms Physical Exam General Appearance: no apparent distress Lines, tubes and drains: peripheral HEENT: normocephalic Neck: non-tender Respiratory/Chest: chest wall non-tender, expiratory wheezing Breasts: no masses Cardiovascular/Chest: normal peripheral pulses Abdomen: normal bowel sounds Last 24 Hour Vital Signs Date Time Temp Pulse Resp B/P (MAP) Pulse Ox O2 Delivery O2 Flow Rate FiO2 02/03/18 16:05 76 20 98 Room Air 2.0 28 02/03/18 16:00 98.2 84 20 135/65 97 Nasal Cannula 2.0 98.2 02/03/18 15:57 72 16 95 Nasal Cannula 288.0 28 02/03/18 12:11 70 16 98 Nasal Cannula 28 02/03/18 12:00 98.2 74 20 119/51 95 Nasal Cannula 2.0 98.2 02/03/18 11:57 69 16 96 Nasal Cannula 2.0 02/03/18 08:45 76 134/73 02/03/18 08:45 76 134/73 02/03/18 08:44 79 16 99 Nasal Cannula 2.0 02/03/18 08:34 76 16 96 Nasal Cannula 2.0 02/03/18 08:11 98.1 76 20 134/73 96 Nasal Cannula 2.0 98.1 02/03/18 08:00 69 02/03/18 04:47 97.9 73 20 146/81 98 Nasal Cannula 2.0 97.9 02/03/18 03:55 98.2 72 18 128/61 97 Nasal Cannula 2.0 98.2 02/03/18 03:40 98.2 72 18 128/61 97 Nasal Cannula 2.0 98.2 02/03/18 02:05 98.1 74 17 130/68 99 Nasal Cannula 2.0 98.1 02/03/18 01:50 68 18 98 Nasal Cannula 2.0 28 6/2/18 01:40 61 19 96 Nasal Cannula 2.0 28 02/03/18 00:49 79 22 99 Nasal Cannula 2.0 28 02/03/18 00:32 72 21 97 Nasal Cannula 2.0 28 02/03/18 00:30 72 21 Nasal Cannula 2.0 02/03/18 00:30 98.2 72 21 143/54 93 Nasal Cannula 2.0 98.2 02/03/18 00:26 72 21 Nasal Cannula 2.0 28 02/03/18 00:11 98.0 72 24 168/84 93 Room Air 98.1 Intake and Output 02/02/18 02/03/18 19:00 07:00 Intake Total 200 ml Balance 200 ml IV Total 200 ml # Voids 2 Laboratory Tests Test 02/03/18 00:35 02/03/18 01:00 White Blood Count 5.9 K/UL (4.8-10.8) Red Blood Count 4.39 M/UL (4.20-5.40) Hemoglobin 13.7 G/DL (12.0-16.0) Hematocrit 39.0 % (37.0-47.0) Mean Corpuscular Volume 89 FL (80-99) Mean Corpuscular Hemoglobin 31.2 PG (27.0-31.0) H Mean Corpuscular Hemoglobin Concent 35.1 G/DL (32.0-36.0) Red Cell Distribution Width 11.6 % (11.6-14.8) Platelet Count 177 K/UL (150-450) Mean Platelet Volume 7.0 FL (6.5-10.1) Neutrophils (%) (Auto) 43.2 % (45.0-75.0) L Lymphocytes (%) (Auto) 36.4 % (20.0-45.0) Monocytes (%) (Auto) 8.8 % (1.0-10.0) Eosinophils (%) (Auto) 11.2 % (0.0-3.0) H Basophils (%) (Auto) 0.4 % (0.0-2.0) Sodium Level 139 MMOL/L (136-145) Potassium Level 3.6 MMOL/L (3.5-5.1) Chloride Level 101 MMOL/L (98-107) Carbon Dioxide Level 34 MMOL/L (21-32) H Anion Gap 4 mmol/L (5-15) L Blood Urea Nitrogen 22 mg/dL (7-18) H Creatinine 0.8 MG/DL (0.55-1.30) Estimat Glomerular Filtration Rate mL/min (>60) Glucose Level 120 MG/DL (74-106) H Calcium Level 8.8 MG/DL (8.5-10.1) Total Bilirubin 0.3 MG/DL (0.2-1.0) Aspartate Amino Transf (AST/SGOT) 17 U/L (15-37) Alanine Aminotransferase (ALT/SGPT) 27 U/L (12-78) Alkaline Phosphatase 97 U/L (46-116) Total Creatine Kinase 226 U/L (26-308) Creatine Kinase MB 1.7 NG/ML (0.0-3.6) Creatine Kinase MB Relative Index 0.7 Troponin I 0.000 ng/mL (0.000-0.056) Pro-B-Type Natriuretic Peptide 73 pg/mL (0-125) Total Protein 7.9 G/DL (6.4-8.2) Albumin 3.5 G/DL (3.4-5.0) Globulin 4.4 g/dL Albumin/Globulin Ratio 0.8 (1.0-2.7) L Urine Color Pale yellow Urine Appearance Clear Urine pH 7 (4.5-8.0) Urine Specific [place] 1.010 (1.005-1.035) Urine Protein 3+ (NEGATIVE) H Urine Glucose (UA) Negative (NEGATIVE) Urine Ketones Negative (NEGATIVE) Urine Occult Blood 1+ (NEGATIVE) H Urine Nitrite Negative (NEGATIVE) Urine Bilirubin Negative (NEGATIVE) Urine Urobilinogen Normal MG/DL (0.0-1.0) Urine Leukocyte Esterase Negative (NEGATIVE) Urine RBC 0-2 /HPF (0 - 2) Urine WBC 0-2 /HPF (0 - 2) Urine Squamous Epithelial Cells Occasional /LPF Urine Bacteria Occasional /HPF (NONE) Height (Feet): 5 Height (Inches): 2.00 Weight (Pounds): 144 Medications Current Medications Medications (Trade) Dose Ordered Sig/[place] Route PRN Reason Start Time Stop Time Status Last Admin Dose Admin Acetaminophen (Tylenol) 650 mg Q4H PRN RECTAL Mild Pain (Pain Scale 1-3) 02/03/18 06:15 03/05/18 06:14 Acetaminophen (Tylenol) 650 mg Q4H PRN RECTAL fever 02/03/18 06:15 03/05/18 06:14 Albuterol/ Ipratropium (Albuterol/ Ipratropium) 3 ml Q4H PRN INH Shortness of Breath 02/03/18 06:15 02/08/18 06:14 Albuterol/ Ipratropium (Albuterol/ Ipratropium) 3 ml Q6HRT HHN 02/03/18 13:00 02/08/18 12:59 02/03/18 15:56 Amlodipine Besylate (Norvasc) 5 mg DAILY ORAL 02/03/18 09:00 03/05/18 08:59 02/03/18 08:45 Aspirin (Ecotrin) 81 mg DAILY ORAL 02/03/18 09:00 03/05/18 08:59 02/03/18 08:40 Atorvastatin Calcium (Lipitor) 20 mg BEDTIME ORAL 02/03/18 21:00 03/05/18 20:59 Bisacodyl (Dulcolax) 10 mg DAILYPRN PRN RECTAL Constipation 02/03/18 06:15 03/05/18 06:14 Clopidogrel Bisulfate (Plavix) 75 mg DAILY ORAL 02/03/18 09:00 03/05/18 08:59 02/03/18 08:43 Dextrose (Dextrose 50%) 25 ml STAT PRN IV Hypoglycemia 02/03/18 06:15 03/05/18 06:14 Dextrose (Dextrose 50%) 50 ml STAT PRN IV Hypoglycemia 02/03/18 06:15 03/05/18 06:14 Docusate Sodium (Colace) 100 mg EVERY 12 HOURS ORAL 02/03/18 09:00 03/05/18 08:59 02/03/18 08:44 Heparin Sodium (Porcine) (Heparin 5000 units/ml) 5,000 units EVERY 8 HOURS SUBQ 02/03/18 14:00 03/05/18 13:59 02/03/18 14:27 Insulin Aspart (NovoLOG) BEFORE MEALS AND HS SUBQ 02/03/18 11:30 03/05/18 11:29 02/03/18 12:39 Levalbuterol HCl (Xopenex) 1.25 mg TIDRT HHN 02/03/18 13:00 02/08/18 12:59 Levofloxacin 50 ml @ 50 mls/hr Q24H IVPB 02/04/18 08:00 02/11/18 07:59 Magnesium Hydroxide (Mom) 30 ml HSPRN PRN ORAL Constipation 02/03/18 06:15 03/05/18 06:14 Methylprednisolone Sodium Succinate (Solu-MEDROL) 80 mg EVERY 8 HOURS IV 02/03/18 07:30 03/05/18 07:29 02/03/18 14:26 Montelukast Sodium (Singulair) 10 mg DAILY ORAL 02/03/18 09:00 03/05/18 08:59 02/03/18 08:41 Morphine Sulfate (Morphine Sulfate) 4 mg Q4H PRN IVP Severe Pain (Pain Scale 7-10) 02/03/18 06:15 02/10/18 06:14 Ondansetron HCl (Zofran) 4 mg Q6H PRN IVP Nausea & Vomiting 02/03/18 06:15 03/05/18 06:14 Pantoprazole (Protonix) 40 mg DAILY ORAL 02/03/18 09:00 03/05/18 08:59 02/03/18 08:43 Phenytoin (Dilantin) 100 mg BEDTIME ORAL 02/03/18 21:00 03/05/18 20:59 Phenytoin (Dilantin) 100 mg DAILY ORAL 02/03/18 09:00 03/05/18 08:59 02/03/18 08:41 Polyethylene Glycol (Miralax) 17 gm DAILYPRN PRN ORAL Constipation 02/03/18 06:15 03/05/18 06:14 Pregabalin (Lyrica) 50 mg Q12HR ORAL 02/03/18 09:00 03/05/18 08:59 02/03/18 08:45 Promethazine HCl/ Codeine (Phenergan with Codeine) 5 ml Q4H PRN ORAL For Cough 02/03/18 10:00 03/05/18 09:59 02/03/18 12:38 Theophylline (Fabrice-Dur) 100 mg EVERY 12 HOURS ORAL 02/03/18 21:00 03/05/18 20:59 Zolpidem Tartrate (Ambien) 5 mg DAILYPRN PRN ORAL Insomnia 02/03/18 06:15 02/10/18 06:14 Assessment/Plan Status: stable Assessment/Plan Aggressive pulmonary toilet Steroids Albutero/atrovent Azithromycin No evidence of ACS - troponin negative, no chest pain currently Recommend outpatient echocardiogram to evaluate for hypertensive heart disease and diastolic dysfunction NO signs of acute heart failure to warrant diuretics Continue anti - hypertensive therapy David Hollingsworth M.D. Feb 03, 2018 16:22
--- NOTE | 2018-02-03 17:31 | History and Physical Report ---
DATE OF ADMISSION: 02/03/2018 CHIEF COMPLAINT: The patient is an 83-year-old female who presents with chief complaint of shortness of breath. HISTORY OF PRESENT ILLNESS: The patient was admitted to [facility] in October 2017. The patient was diagnosed with acute asthma exacerbation. The patient was in respiratory failure at that time. The patient was placed on BiPAP and was subsequently discharged. The patient states history of present illness began yesterday. The patient began to experience shortness of breath. The patient denies cough. The patient states she has been short of breath since the last time she was admitted to [facility]. The patient presented to [facility]. Oxygen saturation was found to be 80%. The patient was admitted with acute on chronic asthma exacerbation. PAST MEDICAL HISTORY: CONSTITUTIONAL: The patient denies weight loss or weight gain. The patient denies fevers or chills. HEENT: The patient denies ear or throat pain. The patient denies headache. CARDIOVASCULAR: The patient denies palpitations or chest pain. CHEST: The patient complains of wheezes as above. The patient complains of shortness of breath as above. The patient denies cough. ABDOMEN: The patient denies nausea, vomiting, diarrhea, or constipation. GENITOURINARY: The patient denies dysuria or increased frequency of urination. NEUROMUSCULAR: The patient denies seizures or generalized weakness. PAST MEDICAL HISTORY: Significant for 1. Asthma. 2. History of hemorrhagic cerebrovascular accident. 3. Hypertension. 4. Hypercholesterolemia. 5. Gastroesophageal reflux disease. 6. History of hemorrhoid. 7. Seizure disorder. 8. Coronary artery disease, status post stent placement in November 2017 per the patient. PAST SURGICAL HISTORY: Significant for: 1. Appendectomy. 2. Cardiac catheterization in November 2017 as above with stent placement x1. CURRENT MEDICATIONS: 1. Amlodipine 5 mg one tablet p.o. daily. 2. Aspirin 81 mg one tablet p.o. daily. 3. Atorvastatin 20 mg p.o. daily. 4. Clopidogrel 75 mg p.o. daily. 5. Dexilant 60 mg p.o. at bedtime. 6. Advair 250/50 one puff p.o. twice daily. 7. Labetalol 100 mg p.o. twice daily. 8. Medrol Dosepak. 9. Singulair 10 mg p.o. daily. 10. Dilantin 100 mg p.o. daily. 11. 12. Lyrica 50 mg p.o. twice daily. 13. Valsartan/hydrochlorothiazide 160/12.5 one tab p.o. twice daily. ALLERGIES: Vancomycin. SOCIAL HISTORY: The patient is single. The patient lives alone. The patient denies tobacco or alcohol use. PHYSICAL EXAMINATION: VITAL SIGNS: Temperature 98.1, respirations 20, pulse 76, blood pressure 134/73. GENERAL: The patient is well-developed and well-nourished female, in no apparent distress. HEENT: Eyes are pupils are equal and responsive to light and accommodation. Extraocular movements are intact. NECK: Supple without lymphadenopathy. CHEST: Scattered wheezes heard bilateral in lung perez. Otherwise, without rales. CARDIOVASCULAR: Regular rhythm and rate. S1 and S2 normal without murmurs, rubs, or gallops. ABDOMEN: Soft, nontender, and nondistended. Positive bowel sounds. No evidence of hepatosplenomegaly. Currently no rebound or guarding noted. EXTREMITIES: Negative for clubbing, cyanosis, or edema. RECTAL/GENITAL: Refused. NEUROLOGIC: Cranial nerves II to XII are grossly intact without focal deficits. Motor strength is 5/5 bilaterally. Deep tendon reflexes are 2+ plantar. LABORATORY STUDIES: WBC 5.9, hemoglobin 13.7, hematocrit 39.0, platelets 177,000. Sodium 139, potassium 3.6, chloride 101, CO2 34, BUN 22, creatinine 0.8, glucose 120. Troponin 0.0. Urinalysis was within normal limits. A chest x-ray was reported as no acute disease. ASSESSMENT: This is an 83-year-old female. 1. Shortness of breath. 2. Hypoxia. 3. Hypertension. 4. Asthma. 5. Coronary artery disease. 6. Cerebrovascular disease. 7. Hypercholesterolemia. 8. Gastroesophageal reflux disease. 9. Seizure disorder. TREATMENT: 1. Shortness of breath/hypoxia. A Pulmonary consultation has been obtained with Dr. Luis A Juares. The patient has been placed empirically on albuterol nebulized q.4 h p.r.n. The patient has been placed empirically on intravenous Levaquin for possible acute bronchitis. Continue albuterol as above. The patient will be offered DuoNeb nebulized q.4 h p.r.n. 2. Coronary artery disease. The patient is status post stent placement in November 2017 as above. 3. Cerebrovascular disease, status post hemorrhagic stroke. 4. Hypercholesterolemia. Continue Lipitor as above. 5. Gastroesophageal reflux disease. Continue Protonix as above. 6. Seizure disorder. Continue Dilantin as above. Dilantin level is pending. Hank Toure M.D. DR: Guanako JOB#: [id number] CC:
[2018-02-03] MEDS: Theophylline ER 100mg ORAL SCH (20:31)
[2018-02-03] MEDS: Levalbuterol Inh UD 1.25mg/0.5ml HHN SCH ×2 (20:38→20:39)
[2018-02-03] MEDS ORDERED: Phenytoin 100mg cap ORAL SCH (21:00)
[2018-02-03] MEDS ORDERED: Atorvastatin 20mg tab ORAL SCH (21:00)
--- NOTE | 2018-02-03 23:13 | Consultation ---
History of Present Illness General Date patient seen: Feb 03, 2018 Chief Complaint: Dyspnea/Respdistress Present Illness HPI 83-year-old female with hx of anxiety and episodes of panic attacks who was admitted with chief complaint of shortness of breath. The pt has anxiety and stated that she gets chest tightness and inability to breath at times. the pt has hx of asthma. the pt is croatian however speaks pashto. the pt stated that she gets more chest pain at night and arm numbness Allergies: Coded Allergies: VANCOMYCIN (Verified Allergy, Unknown, red eyes, itchying, 10/10/16) Medication History Scheduled Albuterol Sulfate (Ventolin Hfa), 1 PUFF INH EVERY 6 HOURS Amlodipine Besylate* (Amlodipine Besylate*), 5 MG ORAL DAILY, (Reported) Aspirin* (Aspir 81*), 81 MG ORAL DAILY, (Reported) Atorvastatin Calcium* (Atorvastatin Calcium*), 20 MG ORAL BEDTIME, (Reported) Clopidogrel* (Clopidogrel*), 75 MG ORAL DAILY, (Reported) Dexlansoprazole (Dexilant), 60 MG ORAL QHS, (Reported) Fluticasone/Salmeterol (Advair 250-50 Diskus), 1 PUFF INH EVERY 12 HOURS Labetalol Hcl* (Normodyne*), 100 MG ORAL EVERY 12 HOURS, (Reported) Levocetirizine Dihydrochloride (Levocetirizine Dihydrochloride), 5 MG ORAL DAILY , (Reported) Levofloxacin* (Levaquin*), 250 MG ORAL DAILY Methylprednisolone* (Medrol*), 4 MG ORAL DAILY Montelukast Sodium* (Montelukast Sodium*), 10 MG ORAL DAILY, (Reported) Phenytoin Sodium Extended* (Phenytoin Sodium Extended*), 100 MG ORAL DAILY, ( Reported) Phenytoin Sodium Extended* (Phenytoin Sodium Extended*), 100 MG ORAL BEDTIME, ( Reported) Pregabalin (Lyrica), 50 MG ORAL Q12HR, (Reported) Valsartan/Hydrochlorothiazide 160-12.5 (Valsartan-Hctz 160-12.5 Mg Tab), 1 TAB ORAL Q12HR, (Reported) Scheduled PRN Guaifen/Dextromethorphan/PE (Ra Cough-Cold Mucus Rlf Cf Liq), 10 ML PO Q6HR PRN Miscellaneous Medications Unable to Obtain Medications (Unable To Obtain Meds), (Reported) Patient History Limited by: medical condition History Provided By: Patient, Medical Record, PMD Healthcare decision maker Resuscitation status Full Code Advanced Directive on File No Past Medical/Surgical History Past Medical/Surgical History: (1) Hypercholesteremia (2) Proteinuria (3) Status asthmaticus (4) Hypertension (5) Acute respiratory failure (6) HTN (hypertension) (7) Acute asthma exacerbation (8) Hypoxemia (9) CAD (coronary artery disease) (10) SOB (shortness of breath) (11) Seizure disorder (12) GERD (gastroesophageal reflux disease) (13) Bronchitis (14) Hemorrhagic stroke (15) Asthma (16) Hemoptysis Review of Systems Psychiatric: Reports: prior hx, anxiety, depressed feelings, emotional problems Physical Exam General Appearance: no apparent distress, alert Neurologic: oriented x 3, responsive, depressed affect Last 24 Hour Vital Signs Date Time Temp Pulse Resp B/P (MAP) Pulse Ox O2 Delivery O2 Flow Rate FiO2 02/03/18 20:00 80 02/03/18 20:00 76 20 96 Nasal Cannula 2.0 28 02/03/18 20:00 Nasal Cannula 2.0 28 02/03/18 20:00 78 20 97 Nasal Cannula 2.0 28 02/03/18 20:00 78 20 98 Nasal Cannula 2.0 28 02/03/18 20:00 76 18 95 Nasal Cannula 2.0 28 02/03/18 20:00 98.5 79 24 125/50 94 Nasal Cannula 2.0 98.5 02/03/18 20:00 97 Nasal Cannula 2.0 28 02/03/18 16:05 76 20 98 Room Air 2.0 28 02/03/18 16:00 81 02/03/18 16:00 98.2 84 20 135/65 97 Nasal Cannula 2.0 98.2 02/03/18 15:57 72 16 95 Nasal Cannula 288.0 28 02/03/18 12:11 70 16 98 Nasal Cannula 28 02/03/18 12:00 74 02/03/18 12:00 98.2 74 20 119/51 95 Nasal Cannula 2.0 98.2 02/03/18 11:57 69 16 96 Nasal Cannula 2.0 28 02/03/18 08:45 76 134/73 02/03/18 08:45 76 134/73 02/03/18 08:44 79 16 99 Nasal Cannula 2.0 28 02/03/18 08:34 76 16 96 Nasal Cannula 2.0 28 02/03/18 08:11 98.1 76 20 134/73 96 Nasal Cannula 2.0 98.1 02/03/18 08:00 69 02/03/18 04:47 97.9 73 20 146/81 98 Nasal Cannula 2.0 97.9 02/03/18 03:55 98.2 72 18 128/61 97 Nasal Cannula 2.0 98.2 02/03/18 03:40 98.2 72 18 128/61 97 Nasal Cannula 2.0 98.2 02/03/18 02:05 98.1 74 17 130/68 99 Nasal Cannula 2.0 98.1 02/03/18 01:50 68 18 98 Nasal Cannula 2.0 28 02/03/18 01:40 61 19 96 Nasal Cannula 2.0 28 02/03/18 00:49 79 22 99 Nasal Cannula 2.0 28 02/03/18 00:32 72 21 97 Nasal Cannula 2.0 28 02/03/18 00:30 72 21 Nasal Cannula 2.0 02/03/18 00:30 98.2 72 21 143/54 93 Nasal Cannula 2.0 98.2 02/03/18 00:26 72 21 Nasal Cannula 2.0 28 02/03/18 00:11 98.0 72 24 168/84 93 Room Air 98.1 Intake and Output 02/02/18 02/03/18 19:00 07:00 Intake Total 200 ml Balance 200 ml IV Total 200 ml # Voids 2 Laboratory Tests Test 02/03/18 00:35 02/03/18 01:00 White Blood Count 5.9 K/UL (4.8-10.8) Red Blood Count 4.39 M/UL (4.20-5.40) Hemoglobin 13.7 G/DL (12.0-16.0) Hematocrit 39.0 % (37.0-47.0) Mean Corpuscular Volume 89 FL (80-99) Mean Corpuscular Hemoglobin 31.2 PG (27.0-31.0) H Mean Corpuscular Hemoglobin Concent 35.1 G/DL (32.0-36.0) Red Cell Distribution Width 11.6 % (11.6-14.8) Platelet Count 177 K/UL (150-450) Mean Platelet Volume 7.0 FL (6.5-10.1) Neutrophils (%) (Auto) 43.2 % (45.0-75.0) L Lymphocytes (%) (Auto) 36.4 % (20.0-45.0) Monocytes (%) (Auto) 8.8 % (1.0-10.0) Eosinophils (%) (Auto) 11.2 % (0.0-3.0) H Basophils (%) (Auto) 0.4 % (0.0-2.0) Sodium Level 139 MMOL/L (136-145) Potassium Level 3.6 MMOL/L (3.5-5.1) Chloride Level 101 MMOL/L (98-107) Carbon Dioxide Level 34 MMOL/L (21-32) H Anion Gap 4 mmol/L (5-15) L Blood Urea Nitrogen 22 mg/dL (7-18) H Creatinine 0.8 MG/DL (0.55-1.30) Estimat Glomerular Filtration Rate mL/min (>60) Glucose Level 120 MG/DL (74-106) H Calcium Level 8.8 MG/DL (8.5-10.1) Total Bilirubin 0.3 MG/DL (0.2-1.0) Aspartate Amino Transf (AST/SGOT) 17 U/L (15-37) Alanine Aminotransferase (ALT/SGPT) 27 U/L (12-78) Alkaline Phosphatase 97 U/L (46-116) Total Creatine Kinase 226 U/L (26-308) Creatine Kinase MB 1.7 NG/ML (0.0-3.6) Creatine Kinase MB Relative Index 0.7 Troponin I 0.000 ng/mL (0.000-0.056) Pro-B-Type Natriuretic Peptide 73 pg/mL (0-125) Total Protein 7.9 G/DL (6.4-8.2) Albumin 3.5 G/DL (3.4-5.0) Globulin 4.4 g/dL Albumin/Globulin Ratio 0.8 (1.0-2.7) L Urine Color Pale yellow Urine Appearance Clear Urine pH 7 (4.5-8.0) Urine Specific [place] 1.010 (1.005-1.035) Urine Protein 3+ (NEGATIVE) H Urine Glucose (UA) Negative (NEGATIVE) Urine Ketones Negative (NEGATIVE) Urine Occult Blood 1+ (NEGATIVE) H Urine Nitrite Negative (NEGATIVE) Urine Bilirubin Negative (NEGATIVE) Urine Urobilinogen Normal MG/DL (0.0-1.0) Urine Leukocyte Esterase Negative (NEGATIVE) Urine RBC 0-2 /HPF (0 - 2) Urine WBC 0-2 /HPF (0 - 2) Urine Squamous Epithelial Cells Occasional /LPF Urine Bacteria Occasional /HPF (NONE) Height (Feet): 5 Height (Inches): 2.00 Weight (Pounds): 144 Medications Current Medications Medications (Trade) Dose Ordered Sig/Mecca Route PRN Reason Start Time Stop Time Status Last Admin Dose Admin Acetaminophen (Tylenol) 650 mg Q4H PRN RECTAL Mild Pain (Pain Scale 1-3) 02/03/18 06:15 03/05/18 06:14 Acetaminophen (Tylenol) 650 mg Q4H PRN RECTAL fever 02/03/18 06:15 03/05/18 06:14 Albuterol/ Ipratropium (Albuterol/ Ipratropium) 3 ml Q4H PRN INH Shortness of Breath 02/03/18 06:15 02/08/18 06:14 Albuterol/ Ipratropium (Albuterol/ Ipratropium) 3 ml Q6HRT HHN 02/03/18 13:00 02/08/18 12:59 02/03/18 20:38 Amlodipine Besylate (Norvasc) 5 mg DAILY ORAL 02/03/18 09:00 03/05/18 08:59 02/03/18 08:45 Aspirin (Ecotrin) 81 mg DAILY ORAL 02/03/18 09:00 03/05/18 08:59 02/03/18 08:40 Atorvastatin Calcium (Lipitor) 20 mg BEDTIME ORAL 02/03/18 21:00 03/05/18 20:59 02/03/18 20:31 Bisacodyl (Dulcolax) 10 mg DAILYPRN PRN RECTAL Constipation 02/03/18 06:15 03/05/18 06:14 Clopidogrel Bisulfate (Plavix) 75 mg DAILY ORAL 02/03/18 09:00 03/05/18 08:59 02/03/18 08:43 Dextrose (Dextrose 50%) 25 ml STAT PRN IV Hypoglycemia 02/03/18 06:15 03/05/18 06:14 Dextrose (Dextrose 50%) 50 ml STAT PRN IV Hypoglycemia 02/03/18 06:15 03/05/18 06:14 Docusate Sodium (Colace) 100 mg EVERY 12 HOURS ORAL 02/03/18 09:00 03/05/18 08:59 02/03/18 20:31 Heparin Sodium (Porcine) (Heparin 5000 units/ml) 5,000 units EVERY 8 HOURS SUBQ 02/03/18 14:00 03/05/18 13:59 02/03/18 21:42 Insulin Aspart (NovoLOG) BEFORE MEALS AND HS SUBQ 02/03/18 11:30 03/05/18 11:29 02/03/18 20:50 Levalbuterol HCl (Xopenex) 1.25 mg TIDRT HHN 02/03/18 13:00 02/08/18 12:59 02/03/18 20:39 Levofloxacin 50 ml @ 50 mls/hr Q24H IVPB 02/04/18 08:00 02/11/18 07:59 Magnesium Hydroxide (Mom) 30 ml HSPRN PRN ORAL Constipation 02/03/18 06:15 03/05/18 06:14 Methylprednisolone Sodium Succinate (Solu-MEDROL) 80 mg EVERY 8 HOURS IV 02/03/18 07:30 03/05/18 07:29 02/03/18 21:40 Montelukast Sodium (Singulair) 10 mg DAILY ORAL 02/03/18 09:00 03/05/18 08:59 02/03/18 08:41 Morphine Sulfate (Morphine Sulfate) 4 mg Q4H PRN IVP Severe Pain (Pain Scale 7-10) 02/03/18 06:15 02/10/18 06:14 Ondansetron HCl (Zofran) 4 mg Q6H PRN IVP Nausea & Vomiting 02/03/18 06:15 03/05/18 06:14 Pantoprazole (Protonix) 40 mg DAILY ORAL 02/03/18 09:00 03/05/18 08:59 02/03/18 08:43 Phenytoin (Dilantin) 100 mg BEDTIME ORAL 02/03/18 21:00 03/05/18 20:59 02/03/18 20:31 Phenytoin (Dilantin) 100 mg DAILY ORAL 02/03/18 09:00 03/05/18 08:59 02/03/18 08:41 Polyethylene Glycol (Miralax) 17 gm DAILYPRN PRN ORAL Constipation 02/03/18 06:15 03/05/18 06:14 Pregabalin (Lyrica) 50 mg Q12HR ORAL 02/03/18 09:00 03/05/18 08:59 02/03/18 20:48 Promethazine HCl/ Codeine (Phenergan with Codeine) 5 ml Q4H PRN ORAL For Cough 02/03/18 10:00 03/05/18 09:59 02/03/18 12:38 Theophylline (Fabrice-Dur) 100 mg EVERY 12 HOURS ORAL 02/03/18 21:00 03/05/18 20:59 02/03/18 20:31 Zolpidem Tartrate (Ambien) 5 mg DAILYPRN PRN ORAL Insomnia 02/03/18 06:15 02/10/18 06:14 Assessment/Plan Assessment/Plan Panic attack anxiety d/o Prozac 20mg qam Ativan prn Sherin Holm M.D. Feb 03, 2018 23:13
[2018-02-04] VITALS (7 sets, daily range): BP systolic 108–165; BP diastolic 66–95
[2018-02-04] MEDS: Albuterol/Ipratropium 3ml neb HHN SCH ×4 (03:08→19:43)
[2018-02-04] MEDS: Solu-MEDROL 125mg Inj IV SCH ×3 (05:46→21:53)
[2018-02-04] MEDS: NovoLOG Insulin Flexpen SUBQ SCH ×3 (05:47→21:54)
[2018-02-04] MEDS: Heparin 5000 units/ml inj SUBQ SCH ×3 (05:49→22:00)
[2018-02-04] MEDS ORDERED: Levofloxacin 250mg/D5W 50ml IVPB SCH (08:00)
[2018-02-04] MEDS: Levalbuterol Inh UD 1.25mg/0.5ml HHN SCH (08:17)
[2018-02-04] MEDS: Aspirin EC 81mg tab ORAL SCH (08:40)
[2018-02-04] MEDS: Lyrica 50mg cap ORAL SCH ×2 (08:40→21:52)
[2018-02-04] MEDS: Theophylline ER 100mg ORAL SCH ×2 (08:40→21:51)
[2018-02-04] MEDS: Docusate 100mg cap ORAL SCH ×2 (08:40→21:50)
[2018-02-04] MEDS: Montelukast 10mg tablet ORAL SCH (08:40)
[2018-02-04] MEDS: Phenytoin 100mg cap ORAL SCH ×2 (08:41→21:50)
--- NOTE | 2018-02-04 10:00 | Pulmonology Progress Note ---
Assessment/Plan Problems: (1) Acute respiratory failure (2) Acute asthma exacerbation (3) HTN (hypertension) Assessment/Plan keep the same dose of sterids 80 q8 respiratory therapy sputum has GNR, sensitivity pending monitor BP med/surg dvt prophylaxis. Subjective ROS Limited/Unobtainable: No Interval Events: still coughing a lot Allergies: Coded Allergies: VANCOMYCIN (Verified Allergy, Unknown, red eyes, itchying, 10/10/16) Objective Last 24 Hour Vital Signs Date Time Temp Pulse Resp B/P (MAP) Pulse Ox O2 Delivery O2 Flow Rate FiO2 02/04/18 08:41 85 165/83 02/04/18 08:27 86 18 98 Nasal Cannula 2.0 28 02/04/18 08:27 86 18 98 Nasal Cannula 2.0 28 02/04/18 08:17 85 18 95 Room Air 02/04/18 08:17 85 18 95 Room Air 02/04/18 08:15 95 Room Air 02/04/18 04:00 76 02/04/18 04:00 97.7 72 20 149/75 96 Nasal Cannula 2.0 97.7 02/04/18 01:30 78 18 97 Nasal Cannula 2.0 28 02/04/18 01:30 82 20 99 Nasal Cannula 2.0 28 02/04/18 00:00 97.6 99 20 108/66 97 Nasal Cannula 2.0 97.6 02/04/18 00:00 73 02/03/18 20:00 80 02/03/18 20:00 76 20 96 Nasal Cannula 2.0 28 02/03/18 20:00 Nasal Cannula 2.0 28 02/03/18 20:00 78 20 97 Nasal Cannula 2.0 28 02/03/18 20:00 78 20 98 Nasal Cannula 2.0 28 02/03/18 20:00 76 18 95 Nasal Cannula 2.0 28 02/03/18 20:00 98.5 79 24 125/50 94 Nasal Cannula 2.0 98.5 02/03/18 20:00 97 Nasal Cannula 2.0 28 02/03/18 16:05 76 20 98 Room Air 2.0 28 02/03/18 16:00 81 02/03/18 16:00 98.2 84 20 135/65 97 Nasal Cannula 2.0 98.2 02/03/18 15:57 72 16 95 Nasal Cannula 288.0 28 02/03/18 12:11 70 16 98 Nasal Cannula 28 02/03/18 12:00 74 02/03/18 12:00 98.2 74 20 119/51 95 Nasal Cannula 2.0 98.2 02/03/18 11:57 69 16 96 Nasal Cannula 2.0 28 Intake and Output 02/03/18 02/04/18 19:00 07:00 Intake Total 720 ml 300 ml Balance 720 ml 300 ml Intake Oral 720 ml 300 ml # Voids 2 General Appearance: WD/WN HEENT: normocephalic, atraumatic Respiratory/Chest: lungs clear, normal breath sounds, crackles/rales Breasts: no masses Cardiovascular: normal peripheral pulses, normal rate Abdomen: normal bowel sounds, soft, non tender Skin: no rash Neurologic/Psychiatric: supervisor tubing II-XII grossly normal Microbiology Date/Time Source Procedure Growth Status 02/03/18 12:00 Sputum Gram Stain Pending Resulted 02/03/18 12:00 Sputum Culture - Preliminary Gram Negative Bacillus 1 Usual Respiratory Vandana Resulted Current Medications Medications (Trade) Dose Ordered Sig/Mecca Route PRN Reason Start Time Stop Time Status Last Admin Dose Admin Acetaminophen (Tylenol) 650 mg Q4H PRN RECTAL Mild Pain (Pain Scale 1-3) 02/03/18 06:15 03/05/18 06:14 Acetaminophen (Tylenol) 650 mg Q4H PRN RECTAL fever 02/03/18 06:15 03/05/18 06:14 Albuterol/ Ipratropium (Albuterol/ Ipratropium) 3 ml Q4H PRN INH Shortness of Breath 02/03/18 06:15 02/08/18 06:14 Albuterol/ Ipratropium (Albuterol/ Ipratropium) 3 ml Q6HRT HHN 02/03/18 13:00 02/08/18 12:59 02/04/18 08:17 Amlodipine Besylate (Norvasc) 5 mg DAILY ORAL 02/03/18 09:00 03/05/18 08:59 02/04/18 08:41 Aspirin (Ecotrin) 81 mg DAILY ORAL 02/03/18 09:00 03/05/18 08:59 02/04/18 08:40 Atorvastatin Calcium (Lipitor) 20 mg BEDTIME ORAL 02/03/18 21:00 03/05/18 20:59 02/03/18 20:31 Bisacodyl (Dulcolax) 10 mg DAILYPRN PRN RECTAL Constipation 02/03/18 06:15 03/05/18 06:14 Clopidogrel Bisulfate (Plavix) 75 mg DAILY ORAL 02/03/18 09:00 03/05/18 08:59 02/04/18 08:41 Dextrose (Dextrose 50%) 25 ml STAT PRN IV Hypoglycemia 02/03/18 06:15 03/05/18 06:14 Dextrose (Dextrose 50%) 50 ml STAT PRN IV Hypoglycemia 02/03/18 06:15 03/05/18 06:14 Docusate Sodium (Colace) 100 mg EVERY 12 HOURS ORAL 02/03/18 09:00 03/05/18 08:59 02/04/18 08:40 Heparin Sodium (Porcine) (Heparin 5000 units/ml) 5,000 units EVERY 8 HOURS SUBQ 02/03/18 14:00 03/05/18 13:59 02/04/18 05:49 Insulin Aspart (NovoLOG) BEFORE MEALS AND HS SUBQ 02/03/18 11:30 03/05/18 11:29 02/04/18 05:47 Levalbuterol HCl (Xopenex) 1.25 mg TIDRT HHN 02/03/18 13:00 02/08/18 12:59 02/04/18 08:17 Levofloxacin 50 ml @ 50 mls/hr Q24H IVPB 02/04/18 08:00 02/11/18 07:59 02/04/18 08:43 Magnesium Hydroxide (Mom) 30 ml HSPRN PRN ORAL Constipation 02/03/18 06:15 03/05/18 06:14 Methylprednisolone Sodium Succinate (Solu-MEDROL) 80 mg EVERY 8 HOURS IV 02/03/18 07:30 03/05/18 07:29 02/04/18 05:46 Montelukast Sodium (Singulair) 10 mg DAILY ORAL 02/03/18 09:00 03/05/18 08:59 02/04/18 08:40 Morphine Sulfate (Morphine Sulfate) 4 mg Q4H PRN IVP Severe Pain (Pain Scale 7-10) 02/03/18 06:15 02/10/18 06:14 Ondansetron HCl (Zofran) 4 mg Q6H PRN IVP Nausea & Vomiting 02/03/18 06:15 03/05/18 06:14 Pantoprazole (Protonix) 40 mg DAILY ORAL 02/03/18 09:00 03/05/18 08:59 02/04/18 08:40 Phenytoin (Dilantin) 100 mg BEDTIME ORAL 02/03/18 21:00 03/05/18 20:59 02/03/18 20:31 Phenytoin (Dilantin) 100 mg DAILY ORAL 02/03/18 09:00 03/05/18 08:59 02/04/18 08:41 Polyethylene Glycol (Miralax) 17 gm DAILYPRN PRN ORAL Constipation 02/03/18 06:15 03/05/18 06:14 Pregabalin (Lyrica) 50 mg Q12HR ORAL 02/03/18 09:00 03/05/18 08:59 02/04/18 08:40 Promethazine HCl/ Codeine (Phenergan with Codeine) 5 ml Q4H PRN ORAL For Cough 02/03/18 10:00 03/05/18 09:59 02/03/18 12:38 Theophylline (Fabrice-Dur) 100 mg EVERY 12 HOURS ORAL 02/03/18 21:00 03/05/18 20:59 02/04/18 08:40 Zolpidem Tartrate (Ambien) 5 mg DAILYPRN PRN ORAL Insomnia 02/03/18 06:15 02/10/18 06:14 Luis A Juares MD Feb 04, 2018 10:00
[2018-02-04] MEDS ORDERED: Miralax 17gm pkt ORAL PRN (12:00)
[2018-02-04] MEDS ORDERED: Acetaminophen 650 MG SUPP RECTAL PRN ×2 (12:00)
[2018-02-04] MEDS ORDERED: Promethazine/Codeine 5ml UD ORAL PRN (12:00)
[2018-02-04] MEDS ORDERED: Morphine Sulfate 4mg/ml Inj IVP PRN (12:00)
[2018-02-04] MEDS ORDERED: Levalbuterol Inh UD 1.25mg/0.5ml HHN SCH (13:00)
--- NOTE | 2018-02-04 15:03 | Internal Med Progress Note ---
Subjective Date of Service: Feb 04, 2018 Physician Name Hank Toure Attending Physician Shlomo Garcia MD Current Medications Medications (Trade) Dose Ordered Sig/Mecca Route PRN Reason Start Time Stop Time Status Last Admin Dose Admin Acetaminophen (Tylenol) 650 mg Q4H PRN RECTAL Mild Pain (Pain Scale 1-3) 02/04/18 12:00 03/05/18 11:59 Acetaminophen (Tylenol) 650 mg Q4H PRN RECTAL T>100.5 02/04/18 12:00 03/05/18 11:59 Albuterol/ Ipratropium (Albuterol/ Ipratropium) 3 ml Q4H PRN INH Shortness of Breath 02/04/18 12:00 02/08/18 11:59 Albuterol/ Ipratropium (Albuterol/ Ipratropium) 3 ml Q6HRT HHN 02/04/18 13:00 02/08/18 12:59 02/04/18 13:57 Amlodipine Besylate (Norvasc) 5 mg DAILY ORAL 02/05/18 09:00 03/05/18 08:59 Aspirin (Ecotrin) 81 mg DAILY ORAL 02/05/18 09:00 03/05/18 08:59 Atorvastatin Calcium (Lipitor) 20 mg BEDTIME ORAL 02/04/18 21:00 03/05/18 20:59 Bisacodyl (Dulcolax) 10 mg DAILYPRN PRN RECTAL Constipation 02/04/18 12:00 03/06/18 11:59 Clopidogrel Bisulfate (Plavix) 75 mg DAILY ORAL 02/05/18 09:00 03/05/18 08:59 Dextrose (Dextrose 50%) 25 ml STAT PRN IV Hypoglycemia 02/04/18 12:00 03/06/18 11:59 Dextrose (Dextrose 50%) 50 ml STAT PRN IV Hypoglycemia 02/04/18 12:00 03/06/18 11:59 Docusate Sodium (Colace) 100 mg EVERY 12 HOURS ORAL 02/04/18 21:00 03/05/18 08:59 Heparin Sodium (Porcine) (Heparin 5000 units/ml) 5,000 units EVERY 8 HOURS SUBQ 02/04/18 14:00 03/05/18 13:59 02/04/18 14:54 Insulin Aspart (NovoLOG) BEFORE MEALS AND HS SUBQ 02/04/18 16:30 03/05/18 11:29 Levofloxacin 50 ml @ 50 mls/hr Q24H IVPB 02/05/18 08:00 02/11/18 07:59 Magnesium Hydroxide (Mom) 30 ml HSPRN PRN ORAL Constipation 02/04/18 21:00 03/06/18 20:59 Methylprednisolone Sodium Succinate (Solu-MEDROL) 80 mg EVERY 8 HOURS IV 02/04/18 14:00 03/05/18 07:29 02/04/18 14:52 Montelukast Sodium (Singulair) 10 mg DAILY ORAL 02/05/18 09:00 03/05/18 08:59 Morphine Sulfate (Morphine Sulfate) 4 mg Q4H PRN IVP Severe Pain (Pain Scale 7-10) 02/04/18 12:00 02/10/18 11:59 Ondansetron HCl (Zofran) 4 mg Q6H PRN IVP Nausea & Vomiting 02/04/18 12:15 03/05/18 06:14 Pantoprazole (Protonix) 40 mg DAILY ORAL 02/05/18 09:00 03/05/18 08:59 Phenytoin (Dilantin) 100 mg Q12HR ORAL 02/04/18 21:00 03/06/18 20:59 Polyethylene Glycol (Miralax) 17 gm DAILYPRN PRN ORAL Constipation 02/04/18 12:00 03/06/18 11:59 Pregabalin (Lyrica) 50 mg Q12HR ORAL 02/04/18 21:00 03/05/18 08:59 Promethazine HCl/ Codeine (Phenergan with Codeine) 5 ml Q4H PRN ORAL For Cough 02/04/18 12:00 03/05/18 11:59 Theophylline (Fabrice-Dur) 100 mg EVERY 12 HOURS ORAL 02/04/18 21:00 03/05/18 20:59 Zolpidem Tartrate (Ambien) 5 mg HSPRN PRN ORAL Insomnia 02/04/18 21:00 02/11/18 20:59 Allergies: Coded Allergies: VANCOMYCIN (Verified Allergy, Unknown, red eyes, itchying, 10/10/16) ROS Limited/Unobtainable: No Constitutional: Reports: no symptoms HEENT: Reports: no symptoms Cardiovascular: Reports: no symptoms Respiratory: Reports: shortness of breath Gastrointestinal/Abdominal: Reports: no symptoms Genitourinary: Reports: no symptoms Neurologic/Psychiatric: Reports: no symptoms Subjective 83 YO F admitted with shortness of breath and hypoxia. Now asthma exacerbation with bronchitis. Cover for Int Med-Dr Garcia Objective Last Vital Signs Date Time Temp Pulse Resp B/P (MAP) Pulse Ox O2 Delivery O2 Flow Rate FiO2 02/04/18 13:57 96 20 96 Nasal Cannula 2.0 02/04/18 12:00 97.7 151/74 97.7 02/04/18 08:27 28 General Appearance: WD/WN, no apparent distress, alert EENT: PERRL/EOMI, normal ENT inspection Neck: non-tender, normal alignment, supple, normal inspection Cardiovascular: normal peripheral pulses, normal rate, regular rhythm, no gallop/murmur, no JVD Respiratory/Chest: chest wall non-tender, respiratory distress, crackles/rales , expiratory wheezing Abdomen: normal bowel sounds, non tender, soft, no organomegaly, no mass Extremities: normal range of motion, non-tender Neurologic: cognos architect II-XII grossly normal, no motor/sensory deficits Skin: normal pigmentation, warm/dry Microbiology Date/Time Source Procedure Growth Status 02/03/18 12:00 Sputum Gram Stain - Final Resulted 02/03/18 12:00 Sputum Culture - Preliminary Gram Negative Bacillus 1 Usual Respiratory Vandana Resulted Intake and Output 02/03/18 02/04/18 19:00 07:00 Intake Total 720 ml 300 ml Balance 720 ml 300 ml Intake Oral 720 ml 300 ml # Voids 2 Assessment/Plan Problem List: (1) Hemorrhagic stroke (2) Hypoxemia (3) CAD (coronary artery disease) (4) SOB (shortness of breath) Assessment & Plan: Due to asthma (5) Asthma (6) HTN (hypertension) (7) Acute asthma exacerbation Assessment & Plan: See pulmonary note. Cont IV solumedrol (8) Bronchitis Assessment & Plan: Continue levaquin (9) GERD (gastroesophageal reflux disease) (10) Seizure disorder Assessment & Plan: Continue dilantin Status: progressing Hank Toure MD Feb 04, 2018 15:03
--- NOTE | 2018-02-04 16:53 | Cardiology Report ---
APPROVED REPORT EKG Measurement Heart [id number] FL [id number] Normal sinus rhythm Normal ECG
--- NOTE | 2018-02-04 19:09 | Cardiology Progress Note ---
Assessment/Plan Assessment/Plan Aggressive pulmonary toilet Steroids Albutero/atrovent Azithromycin No evidence of ACS - troponin negative, no chest pain currently Recommend outpatient echocardiogram to evaluate for hypertensive heart disease and diastolic dysfunction NO signs of acute heart failure to warrant diuretics Continue anti - hypertensive therapy Subjective Respiratory: Reports: no symptoms Gastrointestinal/Abdominal: Reports: no symptoms Genitourinary: Reports: no symptoms Subjective No acute events overnight Objective Last 24 Hour Vital Signs Date Time Temp Pulse Resp B/P (MAP) Pulse Ox O2 Delivery O2 Flow Rate FiO2 02/04/18 17:06 78 155/85 02/04/18 16:00 97.3 84 20 162/95 94 Room Air 97.3 02/04/18 14:07 92 20 96 Nasal Cannula 2.0 28 02/04/18 13:57 96 20 96 Nasal Cannula 2.0 02/04/18 12:00 97.7 86 20 151/74 96 Room Air 97.7 02/04/18 08:41 85 165/83 02/04/18 08:27 86 18 98 Nasal Cannula 2.0 28 02/04/18 08:27 86 18 98 Nasal Cannula 2.0 28 02/04/18 08:17 85 18 95 Room Air 02/04/18 08:17 85 18 95 Room Air 02/04/18 08:15 95 Room Air 02/04/18 08:00 97.3 71 20 165/80 96 Nasal Cannula 2.0 97.3 02/04/18 08:00 70 02/04/18 04:00 76 02/04/18 04:00 97.7 72 20 149/75 96 Nasal Cannula 2.0 97.7 02/04/18 01:30 78 18 97 Nasal Cannula 2.0 28 02/04/18 01:30 82 20 99 Nasal Cannula 2.0 28 02/04/18 00:00 97.6 99 20 108/66 97 Nasal Cannula 2.0 97.6 02/04/18 00:00 73 02/03/18 20:00 80 02/03/18 20:00 76 20 96 Nasal Cannula 2.0 28 02/03/18 20:00 Nasal Cannula 2.0 28 02/03/18 20:00 78 20 97 Nasal Cannula 2.0 28 02/03/18 20:00 78 20 98 Nasal Cannula 2.0 28 02/03/18 20:00 76 18 95 Nasal Cannula 2.0 28 02/03/18 20:00 98.5 79 24 125/50 94 Nasal Cannula 2.0 98.5 02/03/18 20:00 97 Nasal Cannula 2.0 28 General Appearance: no apparent distress EENT: PERRL/EOMI Neck: non-tender Cardiovascular: normal peripheral pulses Respiratory/Chest: chest wall non-tender Abdomen: normal bowel sounds Extremities: normal range of motion 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 Feb 04, 2018 19:09
[2018-02-04] MEDS ORDERED: Phenytoin 100mg cap ORAL SCH (21:00)
[2018-02-04] MEDS ORDERED: Zolpidem 5mg tab ORAL PRN (21:00)
[2018-02-04] MEDS: Atorvastatin 20mg tab ORAL SCH (21:51)
[2018-02-05 00:10] VITALS: BP 135/75
[2018-02-05] MEDS: Albuterol/Ipratropium 3ml neb HHN SCH ×4 (01:00→18:00)
[2018-02-05] MEDS: Albuterol/Ipratropium 3ml neb INH PRN (03:14)
[2018-02-05] MEDS: NovoLOG Insulin Flexpen SUBQ SCH ×4 (06:30→21:23)
[2018-02-05] MEDS: Solu-MEDROL 125mg Inj IV SCH ×3 (06:39→21:14)
[2018-02-05] MEDS: Milk of Magnesia 30ml Ud ORAL PRN (06:39)
[2018-02-05 08:00] VITALS: BP 154/74
[2018-02-05] MEDS: Docusate 100mg cap ORAL SCH ×2 (08:29→21:14)
[2018-02-05] MEDS: Phenytoin 100mg cap ORAL SCH ×2 (08:29→21:13)
[2018-02-05] MEDS: Theophylline ER 100mg ORAL SCH ×2 (08:29→21:13)
[2018-02-05] MEDS: Montelukast 10mg tablet ORAL SCH (08:30)
[2018-02-05] MEDS: Lyrica 50mg cap ORAL SCH ×2 (08:31→21:13)
[2018-02-05] MEDS ORDERED: Aspirin EC 81mg tab ORAL SCH (09:00)
--- NOTE | 2018-02-05 11:35 | Internal Med Progress Note ---
Subjective Date of Service: Feb 05, 2018 Physician Name Hank Toure Attending Physician Shlomo Garcia MD Current Medications Medications (Trade) Dose Ordered Sig/Mecca Route PRN Reason Start Time Stop Time Status Last Admin Dose Admin Acetaminophen (Tylenol) 650 mg Q4H PRN RECTAL Mild Pain (Pain Scale 1-3) 02/04/18 12:00 03/05/18 11:59 Acetaminophen (Tylenol) 650 mg Q4H PRN RECTAL T>100.5 02/04/18 12:00 03/05/18 11:59 Albuterol/ Ipratropium (Albuterol/ Ipratropium) 3 ml Q4H PRN INH Shortness of Breath 02/04/18 12:00 02/08/18 11:59 02/05/18 03:14 Albuterol/ Ipratropium (Albuterol/ Ipratropium) 3 ml Q6HRT HHN 02/04/18 13:00 02/08/18 12:59 02/05/18 07:29 Amlodipine Besylate (Norvasc) 5 mg DAILY ORAL 02/05/18 09:00 03/05/18 08:59 02/05/18 08:30 Aspirin (Ecotrin) 81 mg DAILY ORAL 02/05/18 09:00 03/05/18 08:59 Atorvastatin Calcium (Lipitor) 20 mg BEDTIME ORAL 02/04/18 21:00 03/05/18 20:59 02/04/18 21:51 Bisacodyl (Dulcolax) 10 mg DAILYPRN PRN RECTAL Constipation 02/04/18 12:00 03/06/18 11:59 Dextrose (Dextrose 50%) 25 ml STAT PRN IV Hypoglycemia 02/04/18 12:00 03/06/18 11:59 Dextrose (Dextrose 50%) 50 ml STAT PRN IV Hypoglycemia 02/04/18 12:00 03/06/18 11:59 Docusate Sodium (Colace) 100 mg EVERY 12 HOURS ORAL 02/04/18 21:00 03/05/18 08:59 02/05/18 08:29 Insulin Aspart (NovoLOG) BEFORE MEALS AND HS SUBQ 02/04/18 16:30 03/05/18 11:29 02/04/18 21:54 Levofloxacin 50 ml @ 50 mls/hr Q24H IVPB 02/05/18 08:00 02/11/18 07:59 02/05/18 08:29 Magnesium Hydroxide (Mom) 30 ml HSPRN PRN ORAL Constipation 02/04/18 21:00 03/06/18 20:59 02/05/18 06:39 Methylprednisolone Sodium Succinate (Solu-MEDROL) 80 mg EVERY 8 HOURS IV 02/04/18 14:00 03/05/18 07:29 02/05/18 06:39 Montelukast Sodium (Singulair) 10 mg DAILY ORAL 02/05/18 09:00 03/05/18 08:59 02/05/18 08:30 Morphine Sulfate (Morphine Sulfate) 4 mg Q4H PRN IVP Severe Pain (Pain Scale 7-10) 02/04/18 12:00 02/10/18 11:59 Ondansetron HCl (Zofran) 4 mg Q6H PRN IVP Nausea & Vomiting 02/04/18 12:15 03/05/18 06:14 Pantoprazole (Protonix) 40 mg DAILY ORAL 02/05/18 09:00 03/05/18 08:59 02/05/18 08:30 Phenytoin (Dilantin) 100 mg Q12HR ORAL 02/04/18 21:00 03/06/18 20:59 02/05/18 08:29 Polyethylene Glycol (Miralax) 17 gm DAILYPRN PRN ORAL Constipation 02/04/18 12:00 03/06/18 11:59 Pregabalin (Lyrica) 50 mg Q12HR ORAL 02/04/18 21:00 03/05/18 08:59 02/05/18 08:31 Promethazine HCl/ Codeine (Phenergan with Codeine) 5 ml Q4H PRN ORAL For Cough 02/04/18 12:00 03/05/18 11:59 Theophylline (Fabrice-Dur) 100 mg EVERY 12 HOURS ORAL 02/04/18 21:00 03/05/18 20:59 02/05/18 08:29 Zolpidem Tartrate (Ambien) 5 mg HSPRN PRN ORAL Insomnia 02/04/18 21:00 02/11/18 20:59 Allergies: Coded Allergies: VANCOMYCIN (Verified Allergy, Unknown, red eyes, itchying, 10/10/16) ROS Limited/Unobtainable: No Constitutional: Reports: no symptoms HEENT: Reports: no symptoms Cardiovascular: Reports: no symptoms Respiratory: Reports: shortness of breath, other - hemoptysis Gastrointestinal/Abdominal: Reports: no symptoms Genitourinary: Reports: no symptoms Neurologic/Psychiatric: Reports: no symptoms Subjective 83 YO F admitted with shortness of breath and hypoxia. Now asthma exacerbation with bronchitis. Staff reports hemoptysis. Cover for Int Med-Dr Garcia Objective Last Vital Signs Date Time Temp Pulse Resp B/P (MAP) Pulse Ox O2 Delivery O2 Flow Rate FiO2 02/05/18 08:30 84 154/74 02/05/18 08:00 98.6 18 96 Room Air 98.6 02/05/18 07:40 2.0 28 Microbiology Date/Time Source Procedure Growth Status 02/03/18 12:00 Sputum Gram Stain - Final Complete 02/03/18 12:00 Sputum Culture - Final Escherichia Coli Usual Upper Respiratory Vandana Complete Intake and Output 02/04/18 02/05/18 19:00 07:00 Intake Total 460 ml Balance 460 ml Intake Oral 460 ml # Voids 1 2 Objective General Appearance: WD/WN, no apparent distress, alert EENT: PERRL/EOMI, normal ENT inspection Neck: non-tender, normal alignment, supple, normal inspection Cardiovascular: normal peripheral pulses, normal rate, regular rhythm, no gallop/murmur, no JVD Respiratory/Chest: chest wall non-tender, respiratory distress, crackles/rales , expiratory wheezing Abdomen: normal bowel sounds, non tender, soft, no organomegaly, no mass Extremities: normal range of motion, non-tender 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 See cardiology note. (4) SOB (shortness of breath) Assessment & Plan: Due to asthma (5) Asthma (6) HTN (hypertension) (7) Acute asthma exacerbation Assessment & Plan: See pulmonary note. Cont IV solumedrol (8) Bronchitis Assessment & Plan: Sputum culture=E. Coli. .Discontinue levaquin-resistant. Start ceftriaxone. Await ID consult. Repeat CXR (9) GERD (gastroesophageal reflux disease) (10) Seizure disorder Assessment & Plan: Continue dilantin (11) Hemoptysis Assessment & Plan: Repeat CXR. D/C levaquin; start ceftriaxone Status: not improved Hank Toure MD Feb 05, 2018 11:35
[2018-02-05 11:49] VITALS: BP 127/90
--- NOTE | 2018-02-05 12:44 | General Progress Note ---
Assessment/Plan Assessment/Plan Panic attack anxiety d/o Prozac 20mg qam Ativan pr Subjective Date patient seen: Feb 05, 2018 Neurologic/Psychiatric: Reports: anxiety, depressed, emotional problems Allergies: Coded Allergies: VANCOMYCIN (Verified Allergy, Unknown, red eyes, itchying, 10/10/16) Objective Last 24 Hour Vital Signs Date Time Temp Pulse Resp B/P (MAP) Pulse Ox O2 Delivery O2 Flow Rate FiO2 02/05/18 11:49 98.3 79 18 127/90 97 Nasal Cannula 2.0 98.3 02/05/18 08:30 84 154/74 02/05/18 08:00 98.6 84 18 154/74 96 Room Air 98.6 02/05/18 07:40 87 20 98 Nasal Cannula 2.0 02/05/18 07:29 95 Nasal Cannula 2.0 02/05/18 07:29 85 18 95 Nasal Cannula 2.0 02/05/18 03:28 87 20 97 Nasal Cannula 2.0 02/05/18 03:27 28 02/05/18 03:15 85 20 95 Nasal Cannula 2.0 02/05/18 01:30 Room Air 02/05/18 01:30 Room Air 02/05/18 00:10 98.3 74 18 135/75 93 Room Air 98.3 02/04/18 20:00 98.1 78 19 149/74 94 98.1 02/04/18 19:54 86 18 97 Nasal Cannula 2.0 02/04/18 19:44 85 18 96 Room Air 02/04/18 19:44 95 Room Air 02/04/18 17:06 78 155/85 02/04/18 16:00 97.3 84 20 162/95 94 Room Air 97.3 02/04/18 14:07 92 20 96 Nasal Cannula 2.0 02/04/18 13:57 96 20 96 Nasal Cannula 2.0 Intake and Output 02/04/18 02/05/18 19:00 07:00 Intake Total 460 ml Balance 460 ml Intake Oral 460 ml # Voids 1 2 Height (Feet): 5 Height (Inches): 2.00 Weight (Pounds): 144 General Appearance: no apparent distress, alert Neurologic: oriented x 3, responsive, depressed affect Sherin Holm M.D. Feb 05, 2018 12:44
[2018-02-05] MEDS ORDERED: LORazepam 1mg tab ORAL PRN (13:00)
[2018-02-05] MEDS: cefTRIAXone 1 GM in D5W 110 ML IVPB SCH (13:58)
--- NOTE | 2018-02-05 14:24 | Pulmonology Progress Note ---
Assessment/Plan Problems: (1) Acute respiratory failure (2) Acute asthma exacerbation (3) HTN (hypertension) Assessment/Plan keep the same dose of sterids 80 q8 respiratory therapy add lidocain inhalation sputum has GNR, sensitivity pending monitor BP med/surg dvt prophylaxis. Subjective ROS Limited/Unobtainable: No Interval Events: still lots of cough with hemoptysis Allergies: Coded Allergies: VANCOMYCIN (Verified Allergy, Unknown, red eyes, itchying, 10/10/16) Objective Last 24 Hour Vital Signs Date Time Temp Pulse Resp B/P (MAP) Pulse Ox O2 Delivery O2 Flow Rate FiO2 02/05/18 13:26 Nasal Cannula 2.0 28 02/05/18 13:26 Nasal Cannula 2.0 28 02/05/18 11:49 98.3 79 18 127/90 97 Nasal Cannula 2.0 98.3 02/05/18 08:30 84 154/74 02/05/18 08:00 98.6 84 18 154/74 96 Room Air 98.6 02/05/18 07:40 87 20 98 Nasal Cannula 2.0 28 02/05/18 07:29 95 Nasal Cannula 2.0 28 02/05/18 07:29 85 18 95 Nasal Cannula 2.0 28 02/05/18 03:28 87 20 97 Nasal Cannula 2.0 28 02/05/18 03:27 28 02/05/18 03:15 85 20 95 Nasal Cannula 2.0 28 02/05/18 01:30 Room Air 02/05/18 01:30 Room Air 02/05/18 00:10 98.3 74 18 135/75 93 Room Air 98.3 02/04/18 20:00 98.1 78 19 149/74 94 98.1 02/04/18 19:54 86 18 97 Nasal Cannula 2.0 28 02/04/18 19:44 85 18 96 Room Air 02/04/18 19:44 95 Room Air 02/04/18 17:06 78 155/85 02/04/18 16:00 97.3 84 20 162/95 94 Room Air 97.3 Intake and Output 02/04/18 02/05/18 19:00 07:00 Intake Total 460 ml Balance 460 ml Intake Oral 460 ml # Voids 1 2 General Appearance: WD/WN HEENT: normocephalic, atraumatic Respiratory/Chest: chest wall non-tender, crackles/rales, expiratory wheezing Cardiovascular: normal peripheral pulses, normal rate Abdomen: normal bowel sounds, soft, non tender Genitourinary: normal external genitalia Extremities: no clubbing Skin: no rash Microbiology Date/Time Source Procedure Growth Status 02/03/18 12:00 Sputum Gram Stain - Final Complete 02/03/18 12:00 Sputum Culture - Final Escherichia Coli Usual Upper Respiratory Vandana Complete Current Medications Medications (Trade) Dose Ordered Sig/Mecca Route PRN Reason Start Time Stop Time Status Last Admin Dose Admin Acetaminophen (Tylenol) 650 mg Q4H PRN RECTAL Mild Pain (Pain Scale 1-3) 02/04/18 12:00 03/05/18 11:59 Acetaminophen (Tylenol) 650 mg Q4H PRN RECTAL T>100.5 02/04/18 12:00 03/05/18 11:59 Albuterol/ Ipratropium (Albuterol/ Ipratropium) 3 ml Q4H PRN INH Shortness of Breath 02/04/18 12:00 02/08/18 11:59 02/05/18 03:14 Albuterol/ Ipratropium (Albuterol/ Ipratropium) 3 ml Q6HRT HHN 02/04/18 13:00 02/08/18 12:59 02/05/18 07:29 Amlodipine Besylate (Norvasc) 5 mg DAILY ORAL 02/05/18 09:00 03/05/18 08:59 02/05/18 08:30 Aspirin (Ecotrin) 81 mg DAILY ORAL 02/05/18 09:00 03/05/18 08:59 Atorvastatin Calcium (Lipitor) 20 mg BEDTIME ORAL 02/04/18 21:00 03/05/18 20:59 02/04/18 21:51 Bisacodyl (Dulcolax) 10 mg DAILYPRN PRN RECTAL Constipation 02/04/18 12:00 03/06/18 11:59 Ceftriaxone Sodium 1 gm/ Dextrose 110 ml @ 220 mls/hr Q24H IVPB 02/05/18 14:00 02/12/18 13:59 02/05/18 13:58 Dextrose (Dextrose 50%) 25 ml STAT PRN IV Hypoglycemia 02/04/18 12:00 03/06/18 11:59 Dextrose (Dextrose 50%) 50 ml STAT PRN IV Hypoglycemia 02/04/18 12:00 03/06/18 11:59 Docusate Sodium (Colace) 100 mg EVERY 12 HOURS ORAL 02/04/18 21:00 03/05/18 08:59 02/05/18 08:29 Fluoxetine HCl (PROzac) 20 mg DAILY ORAL 02/05/18 13:00 03/07/18 12:59 Insulin Aspart (NovoLOG) BEFORE MEALS AND HS SUBQ 02/04/18 16:30 03/05/18 11:29 02/05/18 11:39 Lorazepam (Ativan) 1 mg Q6H PRN ORAL For Anxiety 02/05/18 13:00 02/12/18 12:59 Magnesium Hydroxide (Mom) 30 ml HSPRN PRN ORAL Constipation 02/04/18 21:00 03/06/18 20:59 02/05/18 06:39 Methylprednisolone Sodium Succinate (Solu-MEDROL) 80 mg EVERY 8 HOURS IV 02/04/18 14:00 03/05/18 07:29 02/05/18 13:57 Montelukast Sodium (Singulair) 10 mg DAILY ORAL 02/05/18 09:00 03/05/18 08:59 02/05/18 08:30 Morphine Sulfate (Morphine Sulfate) 4 mg Q4H PRN IVP Severe Pain (Pain Scale 7-10) 02/04/18 12:00 02/10/18 11:59 Ondansetron HCl (Zofran) 4 mg Q6H PRN IVP Nausea & Vomiting 02/04/18 12:15 03/05/18 06:14 Pantoprazole (Protonix) 40 mg DAILY ORAL 02/05/18 09:00 03/05/18 08:59 02/05/18 08:30 Phenytoin (Dilantin) 100 mg Q12HR ORAL 02/04/18 21:00 03/06/18 20:59 02/05/18 08:29 Polyethylene Glycol (Miralax) 17 gm DAILYPRN PRN ORAL Constipation 02/04/18 12:00 03/06/18 11:59 Pregabalin (Lyrica) 50 mg Q12HR ORAL 02/04/18 21:00 03/05/18 08:59 02/05/18 08:31 Promethazine HCl/ Codeine (Phenergan with Codeine) 5 ml Q4H PRN ORAL For Cough 02/04/18 12:00 03/05/18 11:59 Theophylline (Fabrice-Dur) 100 mg EVERY 12 HOURS ORAL 02/04/18 21:00 03/05/18 20:59 02/05/18 08:29 Zolpidem Tartrate (Ambien) 5 mg HSPRN PRN ORAL Insomnia 02/04/18 21:00 02/11/18 20:59 Luis A Juares MD Feb 05, 2018 14:24
[2018-02-05] MEDS ORDERED: Lidocaine 1% MPF 10mg/ml 5ml HHN PRN (14:30)
--- NOTE | 2018-02-05 14:40 | Diagnostic Imaging Report ---
Indication: Shortness of breath Technique: One view of the chest Comparison: 02/03/2018 Findings: There is scalloping of the right hemidiaphragm. Better inspiration currently. The heart size is upper limits normal. The aorta is tortuous and calcified. Calcific fibronodular scarring is again demonstrated in the left lung apex Impression: No acute process
[2018-02-05 16:00] VITALS: BP 161/90
--- NOTE | 2018-02-05 18:54 | Infectious Diseases Prog Note ---
Assessment/Plan Assessment/Plan Full consult dictated: A) 1) e.coli uri/bronchitis, no pna on chest x-ray 2) copd/asthma 3) pmh noted P) 1) change to rocephin 2) can change to oral once clinically improves 3) thank you Subjective Allergies: Coded Allergies: VANCOMYCIN (Verified Allergy, Unknown, red eyes, itchying, 10/10/16) Objective Vital Signs Last 24 Hour Vital Signs Date Time Temp Pulse Resp B/P (MAP) Pulse Ox O2 Delivery O2 Flow Rate FiO2 02/05/18 18:11 84 20 98 Nasal Cannula 2.0 28 02/05/18 18:00 82 20 92 Room Air 21 02/05/18 16:00 98.5 76 18 161/90 92 Room Air 98.5 02/05/18 13:26 Nasal Cannula 2.0 28 02/05/18 13:26 Nasal Cannula 2.0 28 02/05/18 11:49 98.3 79 18 127/90 97 Nasal Cannula 2.0 98.3 02/05/18 08:30 84 154/74 02/05/18 08:00 98.6 84 18 154/74 96 Room Air 98.6 02/05/18 07:40 87 20 98 Nasal Cannula 2.0 28 02/05/18 07:29 95 Nasal Cannula 2.0 28 02/05/18 07:29 85 18 95 Nasal Cannula 2.0 28 02/05/18 03:28 87 20 97 Nasal Cannula 2.0 28 02/05/18 03:27 28 02/05/18 03:15 85 20 95 Nasal Cannula 2.0 28 02/05/18 01:30 Room Air 02/05/18 01:30 Room Air 02/05/18 00:10 98.3 74 18 135/75 93 Room Air 98.3 02/04/18 20:00 98.1 78 19 149/74 94 98.1 02/04/18 19:54 86 18 97 Nasal Cannula 2.0 28 02/04/18 19:44 85 18 96 Room Air 02/04/18 19:44 95 Room Air Height (Feet): 5 Height (Inches): 2.00 Weight (Pounds): 144 Microbiology Date/Time Source Procedure Growth Status 02/03/18 12:00 Sputum Gram Stain - Final Complete 02/03/18 12:00 Sputum Culture - Final Escherichia Coli Usual Upper Respiratory Vandana Complete Current Medications Medications (Trade) Dose Ordered Sig/Mecca Route PRN Reason Start Time Stop Time Status Last Admin Dose Admin Acetaminophen (Tylenol) 650 mg Q4H PRN RECTAL Mild Pain (Pain Scale 1-3) 02/04/18 12:00 03/05/18 11:59 Acetaminophen (Tylenol) 650 mg Q4H PRN RECTAL T>100.5 02/04/18 12:00 03/05/18 11:59 Albuterol/ Ipratropium (Albuterol/ Ipratropium) 3 ml Q4H PRN INH Shortness of Breath 02/04/18 12:00 02/08/18 11:59 02/05/18 03:14 Albuterol/ Ipratropium (Albuterol/ Ipratropium) 3 ml Q6HRT HHN 02/04/18 13:00 02/08/18 12:59 02/05/18 18:00 Amlodipine Besylate (Norvasc) 5 mg DAILY ORAL 02/05/18 09:00 03/05/18 08:59 02/05/18 08:30 Atorvastatin Calcium (Lipitor) 20 mg BEDTIME ORAL 02/04/18 21:00 03/05/18 20:59 02/04/18 21:51 Bisacodyl (Dulcolax) 10 mg DAILYPRN PRN RECTAL Constipation 02/04/18 12:00 03/06/18 11:59 Ceftriaxone Sodium 1 gm/ Dextrose 110 ml @ 220 mls/hr Q24H IVPB 02/05/18 14:00 02/12/18 13:59 02/05/18 13:58 Clonidine HCl (Catapres Tab) 0.1 mg Q6H PRN ORAL SBP>160 02/05/18 17:30 03/07/18 17:29 Dextrose (Dextrose 50%) 25 ml STAT PRN IV Hypoglycemia 02/04/18 12:00 03/06/18 11:59 Dextrose (Dextrose 50%) 50 ml STAT PRN IV Hypoglycemia 02/04/18 12:00 03/06/18 11:59 Docusate Sodium (Colace) 100 mg EVERY 12 HOURS ORAL 02/04/18 21:00 03/05/18 08:59 02/05/18 08:29 Fluoxetine HCl (PROzac) 20 mg DAILY ORAL 02/05/18 13:00 03/07/18 12:59 Insulin Aspart (NovoLOG) BEFORE MEALS AND HS SUBQ 02/04/18 16:30 03/05/18 11:29 02/05/18 16:58 Lidocaine (Xylocaine 1% MPF 5ml) 10 ml EVERY 4 HOURS PRN HHN cough 02/05/18 14:30 03/07/18 14:29 Lorazepam (Ativan) 1 mg Q6H PRN ORAL For Anxiety 02/05/18 13:00 02/12/18 12:59 Magnesium Hydroxide (Mom) 30 ml HSPRN PRN ORAL Constipation 02/04/18 21:00 03/06/18 20:59 02/05/18 06:39 Methylprednisolone Sodium Succinate (Solu-MEDROL) 80 mg EVERY 8 HOURS IV 02/04/18 14:00 03/05/18 07:29 02/05/18 13:57 Montelukast Sodium (Singulair) 10 mg DAILY ORAL 02/05/18 09:00 03/05/18 08:59 02/05/18 08:30 Morphine Sulfate (Morphine Sulfate) 4 mg Q4H PRN IVP Severe Pain (Pain Scale 7-10) 02/04/18 12:00 02/10/18 11:59 Ondansetron HCl (Zofran) 4 mg Q6H PRN IVP Nausea & Vomiting 02/04/18 12:15 03/05/18 06:14 Pantoprazole (Protonix) 40 mg DAILY ORAL 02/05/18 09:00 03/05/18 08:59 02/05/18 08:30 Phenytoin (Dilantin) 100 mg Q12HR ORAL 02/04/18 21:00 03/06/18 20:59 02/05/18 08:29 Polyethylene Glycol (Miralax) 17 gm DAILYPRN PRN ORAL Constipation 02/04/18 12:00 03/06/18 11:59 Pregabalin (Lyrica) 50 mg Q12HR ORAL 02/04/18 21:00 03/05/18 08:59 02/05/18 08:31 Promethazine HCl/ Codeine (Phenergan with Codeine) 5 ml Q4H PRN ORAL For Cough 02/04/18 12:00 03/05/18 11:59 Theophylline (Fabrice-Dur) 100 mg EVERY 12 HOURS ORAL 02/04/18 21:00 03/05/18 20:59 02/05/18 08:29 Zolpidem Tartrate (Ambien) 5 mg HSPRN PRN ORAL Insomnia 02/04/18 21:00 02/11/18 20:59 Teofilo Rosenberg MD Feb 05, 2018 18:54
[2018-02-05 21:00] VITALS: BP 152/93
[2018-02-05] MEDS: Atorvastatin 20mg tab ORAL SCH (21:14)
--- NOTE | 2018-02-05 22:30 | Consultation ---
DATE OF CONSULTATION: 02/05/2018 INFECTIOUS DISEASE CONSULTATION ATTENDING PHYSICIAN: Shlomo Garcia M.D. CONSULTING PHYSICIAN: Teofilo Rosenberg M.D. REFERRING PHYSICIAN: Hank Toure M.D. REASON FOR CONSULTATION: Respiratory infection secondary to E. coli, hemoptysis, cough and congestion. The patient's chief complaint coming into the hospital is status asthmaticus. HISTORY OF PRESENT ILLNESS: This is a 83-year-old female, who comes into [facility] with congestion and shortness of breath. The patient's chest x-ray shows no obvious pneumonia. She has had 2 chest x-rays with no consolidation. Sputum culture was obtained and it was noted that she has E. coli. She was initially I believe on Levaquin, which E. coli is resistant to. Because of the respiratory infection, Infectious Disease consultation was requested. The patient was started on Rocephin 1 g IV q.24 h. today and case was communicated with Dr. Toure. Case was discussed with the patient and the RN. MAR was noted. Orders were noted. Notes were reviewed. PAST MEDICAL HISTORY: The patient has a past medical history of asthma, hemorrhagic CVA, hypertension, hypercholesteremia, GERD, history of hemorrhoids, seizures, coronary artery disease, history of appendectomy, and history of cardiac catheterization. MEDICATIONS: Outside medications were noted and reconciliated. She was on amlodipine, aspirin, atorvastatin, clopidogrel, Dexilant, Advair, labetalol, Medrol, singular, Dilantin, Lyrica, losartan and hydrochlorothiazide. Medications here upon reviewing the MAR, she is on following medications. She is on Rocephin. She was on Levaquin. She is on clonidine, Prozac, Ativan, Norvasc, Singulair, Lipitor and Protonix. She is on Colace, MOM, Dilantin, Lyrica, theophylline, Ambien, NovoLog insulin, methylprednisolone, Zofran, Tylenol, bisacodyl and albuterol. ALLERGIES: Vancomycin. SOCIAL HISTORY: Negative for smoking, alcohol, or drug abuse. FAMILY HISTORY: Noncontributory. Negative for exposure to tuberculosis or cancer. REVIEW OF SYSTEMS: CONSTITUTIONAL: She has generalized fatigue, but no focal weakness. She has no fever, chills, or night sweats. No mention of weight loss. HEAD AND NECK: No head pain, neck pain, thrush, dysphagia, sinus tenderness, or neck stiffness. CARDIAC: No chest pain or palpitations. GASTROINTESTINAL: No nausea, vomiting, or diarrhea. PULMONARY: She came with cough, congestion, shortness of breath, and some hemoptysis. SKIN: No rash or itching. EXTREMITIES: No extremity pain. NEUROLOGIC: No seizures. No dysuria or frequency. Antonio. No CVA tenderness. PHYSICAL EXAMINATION: GENERAL: Alert, responsive, no acute distress. VITAL SIGNS: Temperature is 98.5 degrees, pulse rate 84, respiratory rate 20, saturation 98% on room air and blood pressure 161/90. HEAD AND NECK: Oral, no thrush. Eye exam, no icterus. Neck is supple. No JVD. Normocephalic. No facial droop. No neck stiffness. Neck is supple. HEART: Regular. No gallop or murmur. No friction rub. ABDOMEN: Soft. Positive bowel sounds. Nontender. No organomegaly. LUNGS: Few bilateral rhonchi. No definite rales. She has some wheezing. SKIN: No rash. MUSCULOSKELETAL: No effusion. Legs are without cellulitis. PERIPHERAL VASCULAR: No cyanosis or gangrene. GENITOURINARY: She has no Antonio. No CVA tenderness. LINE SITES: Without phlebitis. NEUROLOGIC: Intact. Nonfocal. Alert and oriented. LABORATORY AND DIAGNOSTIC DATA: Creatinine is 0.8. White count is 5.9 and hemoglobin 13.7. UA was leukocyte esterase negative. Sputum culture grew out E. coli, sensitivities were noted. It was sensitive to Rocephin, cefazolin and Bactrim, resistant to Levaquin. Chest x-ray was done twice on 02/03/2018 and 02/05/2018, both showed no acute process. No consolidation. No acute disease. Notes reviewed. Report was noted. ASSESSMENT AND PLAN: 1. The patient has upper respiratory infection, bronchitis secondary to Escherichia coli with congestion, shortness of breath and hemoptysis. She also has exacerbation of asthma and respiratory failure and asthma exacerbation. It is unclear if she has history of underlying chronic obstructive pulmonary disease. She is on theophylline, but per the records, there is no chronic obstructive pulmonary disease. It is more definitive diagnosis of asthma at this time. At this time, based on the Escherichia coli upper respiratory infection, bronchitis, and respiratory infection, the patient will be transitioned to Rocephin and Levaquin was discontinued since the Escherichia coli was resistant to Levaquin. Continue Rocephin 1 g IV q.24 h. Continue steroids and pulmonary treatment. If the patient continues to improve, at that time can transition to oral antibiotics. Because of her age, I favor something like Ceftin 500 mg p.o. b.i.d. for another 5 days upon discharge. One can also give Bactrim or Keflex, however, Keflex's frequent dosing and Bactrim can have [employer] side effects in the elderly and also can cause hyperkalemia and renal insufficiency in elderly. Continue Rocephin for now. Continue pulmonary treatment. Continue steroids. This is day #1 of Rocephin. 2. The patient has asthma exacerbation. Continue pulmonary treatment. 3. The patient has a history of hypertension. Blood pressure treatment per primary and consultants. 4. History of hemorrhagic cerebrovascular accident. 5. Hypercholesteremia and hyperlipidemia. 6. History of hemorrhoids. 7. Seizures. 8. Coronary artery disease. 9. History of cardiac catheterization. 10. History of appendectomy. 11. Gastroesophageal reflux disease. 12. Past medical history as noted. 13. Allergies to vancomycin. 14. Social history is negative. 15. Family history noncontributory. 16. MAR was noted. 17. Case discussed with RN. 18. Case communicated with Dr. Toure. 19. Continue treatment per primary consultants. 20. Notes and records were noted . Orders were entered. ADDENDUM: The patient looks like she does have history of psychiatric disease and is being seen by Psychiatry for panic attacks and anxiety. Teofilo Rosenberg M.D. DR: AJIDA JOB#: [id number] CC:
[2018-02-06] VITALS: BP 153/84
[2018-02-06] MEDS: Albuterol/Ipratropium 3ml neb HHN SCH ×4 (00:52→20:01)
[2018-02-06] MEDS: Albuterol/Ipratropium 3ml neb INH PRN (01:55)
[2018-02-06] MEDS: NovoLOG Insulin Flexpen SUBQ SCH ×4 (06:30→20:02)
[2018-02-06 08:00] VITALS: BP 151/79
[2018-02-06] MEDS: Montelukast 10mg tablet ORAL SCH (08:40)
[2018-02-06] MEDS: Lyrica 50mg cap ORAL SCH ×2 (08:40→20:00)
[2018-02-06] MEDS: Docusate 100mg cap ORAL SCH ×2 (08:40→19:59)
[2018-02-06] MEDS: Theophylline ER 100mg ORAL SCH ×2 (08:40→19:59)
[2018-02-06] MEDS: Phenytoin 100mg cap ORAL SCH ×2 (08:40→19:59)
--- NOTE | 2018-02-06 11:05 | Diagnostic Imaging Report ---
Indication: Dyspnea Technique: One view of the chest Comparison: 02/05/2018 Findings: There is fibronodular scarring in the left lung apex again demonstrated. Lungs and pleural spaces otherwise remain clear. Heart size is normal. Hiatal hernia, scalloping of the right hemidiaphragm are unchanged. Impression: No acute process
[2018-02-06] MEDS: HydrOXYzine tab 25 MG TAB ORAL PRN (11:41)
[2018-02-06 12:00] VITALS: BP 156/76
[2018-02-06] MEDS: cefTRIAXone 1 GM in D5W 110 ML IVPB SCH (14:21)
--- NOTE | 2018-02-06 14:32 | Pulmonology Progress Note ---
Assessment/Plan Problems: (1) Acute respiratory failure (2) Acute asthma exacerbation (3) HTN (hypertension) Assessment/Plan taper sterids respiratory therapy on lidocain inhalation sputum has GNR, E. Coli, sensitive to Ceftriaxone. monitor BP med/surg dvt prophylaxis. Subjective ROS Limited/Unobtainable: No Interval Events: less cough Constitutional: Reports: no symptoms HEENT: Repors: no symptoms Respiratory: Reports: other Allergies: Coded Allergies: VANCOMYCIN (Verified Allergy, Unknown, red eyes, itchying, 10/10/16) Objective Last 24 Hour Vital Signs Date Time Temp Pulse Resp B/P (MAP) Pulse Ox O2 Delivery O2 Flow Rate FiO2 02/06/18 13:18 95 20 98 Nasal Cannula 2.0 28 02/06/18 13:07 99 21 96 Nasal Cannula 2.0 28 02/06/18 08:41 102 151/79 02/06/18 08:00 98.0 102 19 151/79 93 Room Air 98.0 02/06/18 06:57 87 20 100 Room Air 02/06/18 06:46 93 Room Air 02/06/18 06:45 Room Air 21 02/06/18 06:45 96 21 93 Room Air 21 02/06/18 01:50 88 20 97 Room Air 02/06/18 01:50 36 02/06/18 00:52 Room Air 21 02/06/18 00:52 Room Air 21 02/06/18 00:00 98.4 87 17 153/84 93 Room Air 98.4 02/05/18 21:00 98.0 76 18 152/93 92 Room Air 98.0 02/05/18 19:07 97 Room Air 02/05/18 18:11 84 20 98 Nasal Cannula 2.0 28 02/05/18 18:00 82 20 92 Room Air 21 02/05/18 16:00 98.5 76 18 161/90 92 Room Air 98.5 Intake and Output 02/05/18 02/06/18 19:00 07:00 Intake Total 880 ml Balance 880 ml Intake Oral 720 ml IV Total 160 ml # Voids 5 2 # Bowel Movements 1 General Appearance: cachetic HEENT: normocephalic, atraumatic Respiratory/Chest: chest wall non-tender, lungs clear Cardiovascular: normal peripheral pulses, no JVD Abdomen: normal bowel sounds Genitourinary: normal external genitalia Extremities: no cyanosis Skin: no rash Current Medications Medications (Trade) Dose Ordered Sig/Mecca Route PRN Reason Start Time Stop Time Status Last Admin Dose Admin Acetaminophen (Tylenol) 650 mg Q4H PRN RECTAL Mild Pain (Pain Scale 1-3) 02/04/18 12:00 03/05/18 11:59 Acetaminophen (Tylenol) 650 mg Q4H PRN RECTAL T>100.5 02/04/18 12:00 03/05/18 11:59 Albuterol/ Ipratropium (Albuterol/ Ipratropium) 3 ml Q4H PRN INH Shortness of Breath 02/04/18 12:00 02/08/18 11:59 02/06/18 01:55 Albuterol/ Ipratropium (Albuterol/ Ipratropium) 3 ml Q6HRT HHN 02/04/18 13:00 02/08/18 12:59 02/06/18 13:07 Amlodipine Besylate (Norvasc) 5 mg DAILY ORAL 02/05/18 09:00 03/05/18 08:59 02/06/18 08:41 Atorvastatin Calcium (Lipitor) 20 mg BEDTIME ORAL 02/04/18 21:00 03/05/18 20:59 02/05/18 21:14 Bisacodyl (Dulcolax) 10 mg DAILYPRN PRN RECTAL Constipation 02/04/18 12:00 03/06/18 11:59 Ceftriaxone Sodium 1 gm/ Dextrose 110 ml @ 220 mls/hr Q24H IVPB 02/05/18 14:00 02/12/18 13:59 02/06/18 14:21 Clonidine HCl (Catapres Tab) 0.1 mg Q6H PRN ORAL SBP>160 02/05/18 17:30 03/07/18 17:29 Dextrose (Dextrose 50%) 25 ml STAT PRN IV Hypoglycemia 02/04/18 12:00 03/06/18 11:59 Dextrose (Dextrose 50%) 50 ml STAT PRN IV Hypoglycemia 02/04/18 12:00 03/06/18 11:59 Docusate Sodium (Colace) 100 mg EVERY 12 HOURS ORAL 02/04/18 21:00 03/05/18 08:59 02/06/18 08:40 Fluoxetine HCl (PROzac) 20 mg DAILY ORAL 02/05/18 13:00 03/07/18 12:59 02/06/18 08:41 Hydroxyzine HCl (Atarax) 25 mg Q6H PRN ORAL Itching 02/06/18 12:00 03/08/18 11:59 02/06/18 11:41 Insulin Aspart (NovoLOG) BEFORE MEALS AND HS SUBQ 02/04/18 16:30 03/05/18 11:29 02/05/18 21:23 Lidocaine (Xylocaine 1% MPF 5ml) 10 ml EVERY 4 HOURS PRN HHN cough 02/05/18 14:30 03/07/18 14:29 Lorazepam (Ativan) 1 mg Q6H PRN ORAL For Anxiety 02/05/18 13:00 02/12/18 12:59 02/05/18 21:30 Magnesium Hydroxide (Mom) 30 ml HSPRN PRN ORAL Constipation 02/04/18 21:00 03/06/18 20:59 02/05/18 06:39 Montelukast Sodium (Singulair) 10 mg DAILY ORAL 02/05/18 09:00 03/05/18 08:59 02/06/18 08:40 Morphine Sulfate (Morphine Sulfate) 4 mg Q4H PRN IVP Severe Pain (Pain Scale 7-10) 02/04/18 12:00 02/10/18 11:59 Ondansetron HCl (Zofran) 4 mg Q6H PRN IVP Nausea & Vomiting 02/04/18 12:15 03/05/18 06:14 Pantoprazole (Protonix) 40 mg DAILY ORAL 02/05/18 09:00 03/05/18 08:59 02/06/18 08:40 Phenytoin (Dilantin) 100 mg Q12HR ORAL 02/04/18 21:00 03/06/18 20:59 02/06/18 08:40 Polyethylene Glycol (Miralax) 17 gm DAILYPRN PRN ORAL Constipation 02/04/18 12:00 03/06/18 11:59 Prednisone (predniSONE) 40 mg DAILY ORAL 02/06/18 09:00 03/08/18 08:59 02/06/18 08:41 Pregabalin (Lyrica) 50 mg Q12HR ORAL 02/04/18 21:00 03/05/18 08:59 02/06/18 08:40 Promethazine HCl/ Codeine (Phenergan with Codeine) 5 ml Q4H PRN ORAL For Cough 02/04/18 12:00 03/05/18 11:59 Theophylline (Fabrice-Dur) 100 mg EVERY 12 HOURS ORAL 02/04/18 21:00 03/05/18 20:59 02/06/18 08:40 Zolpidem Tartrate (Ambien) 5 mg HSPRN PRN ORAL Insomnia 02/04/18 21:00 02/11/18 20:59 Luis A Juares MD Feb 06, 2018 14:32
--- NOTE | 2018-02-06 15:01 | General Progress Note ---
Assessment/Plan Status: stable, progressing Assessment/Plan Panic attack anxiety d/o Prozac 20mg qam Ativan pr Subjective Date patient seen: Feb 06, 2018 Neurologic/Psychiatric: Reports: anxiety, depressed, emotional problems Allergies: Coded Allergies: VANCOMYCIN (Verified Allergy, Unknown, red eyes, itchying, 10/10/16) Subjective the pt is less anxious took all her meds Objective Last 24 Hour Vital Signs Date Time Temp Pulse Resp B/P (MAP) Pulse Ox O2 Delivery O2 Flow Rate FiO2 02/06/18 13:18 95 20 98 Nasal Cannula 2.0 28 02/06/18 13:07 99 21 96 Nasal Cannula 2.0 28 02/06/18 08:41 102 151/79 02/06/18 08:00 98.0 102 19 151/79 93 Room Air 98.0 02/06/18 06:57 87 20 100 Room Air 02/06/18 06:46 93 Room Air 02/06/18 06:45 Room Air 02/06/18 06:45 96 21 93 Room Air 02/06/18 01:50 88 20 97 Room Air 02/06/18 01:50 36 02/06/18 00:52 Room Air 21 02/06/18 00:52 Room Air 02/06/18 00:00 98.4 87 17 153/84 93 Room Air 98.4 02/05/18 21:00 98.0 76 18 152/93 92 Room Air 98.0 02/05/18 19:07 97 Room Air 02/05/18 18:11 84 20 98 Nasal Cannula 2.0 28 02/05/18 18:00 82 20 92 Room Air 02/05/18 16:00 98.5 76 18 161/90 92 Room Air 98.5 Intake and Output 02/05/18 02/06/18 19:00 07:00 Intake Total 880 ml Balance 880 ml Intake Oral 720 ml IV Total 160 ml # Voids 5 2 # Bowel Movements 1 Height (Feet): 5 Height (Inches): 2.00 Weight (Pounds): 144 General Appearance: no apparent distress, alert Neurologic: oriented x 3, responsive, depressed affect Sherin Holm M.D. Feb 06, 2018 15:01
[2018-02-06 16:00] VITALS: BP 154/77
--- NOTE | 2018-02-06 17:32 | Internal Med Progress Note ---
Subjective Date of Service: Feb 06, 2018 Physician Name TejalHank Attending Physician Shlomo Garcia MD Current Medications Medications (Trade) Dose Ordered Sig/Mecca Route PRN Reason Start Time Stop Time Status Last Admin Dose Admin Acetaminophen (Tylenol) 650 mg Q4H PRN RECTAL Mild Pain (Pain Scale 1-3) 02/04/18 12:00 03/05/18 11:59 Acetaminophen (Tylenol) 650 mg Q4H PRN RECTAL T>100.5 02/04/18 12:00 03/05/18 11:59 Albuterol/ Ipratropium (Albuterol/ Ipratropium) 3 ml Q4H PRN INH Shortness of Breath 02/04/18 12:00 02/08/18 11:59 02/06/18 01:55 Albuterol/ Ipratropium (Albuterol/ Ipratropium) 3 ml Q6HRT HHN 02/04/18 13:00 02/08/18 12:59 02/06/18 13:07 Amlodipine Besylate (Norvasc) 5 mg DAILY ORAL 02/05/18 09:00 03/05/18 08:59 02/06/18 08:41 Atorvastatin Calcium (Lipitor) 20 mg BEDTIME ORAL 02/04/18 21:00 03/05/18 20:59 02/05/18 21:14 Bisacodyl (Dulcolax) 10 mg DAILYPRN PRN RECTAL Constipation 02/04/18 12:00 03/06/18 11:59 Ceftriaxone Sodium 1 gm/ Dextrose 110 ml @ 220 mls/hr Q24H IVPB 02/05/18 14:00 02/12/18 13:59 02/06/18 14:21 Clonidine HCl (Catapres Tab) 0.1 mg Q6H PRN ORAL SBP>160 02/05/18 17:30 03/07/18 17:29 Dextrose (Dextrose 50%) 25 ml STAT PRN IV Hypoglycemia 02/04/18 12:00 03/06/18 11:59 Dextrose (Dextrose 50%) 50 ml STAT PRN IV Hypoglycemia 02/04/18 12:00 03/06/18 11:59 Docusate Sodium (Colace) 100 mg EVERY 12 HOURS ORAL 02/04/18 21:00 03/05/18 08:59 02/06/18 08:40 Fluoxetine HCl (PROzac) 20 mg DAILY ORAL 02/05/18 13:00 03/07/18 12:59 02/06/18 08:41 Hydroxyzine HCl (Atarax) 25 mg Q6H PRN ORAL Itching 02/06/18 12:00 03/08/18 11:59 02/06/18 11:41 Insulin Aspart (NovoLOG) BEFORE MEALS AND HS SUBQ 02/04/18 16:30 03/05/18 11:29 02/05/18 21:23 Lidocaine (Xylocaine 1% MPF 5ml) 10 ml EVERY 4 HOURS PRN HHN cough 02/05/18 14:30 03/07/18 14:29 Lorazepam (Ativan) 1 mg Q6H PRN ORAL For Anxiety 02/05/18 13:00 02/12/18 12:59 02/05/18 21:30 Magnesium Hydroxide (Mom) 30 ml HSPRN PRN ORAL Constipation 02/04/18 21:00 03/06/18 20:59 02/05/18 06:39 Montelukast Sodium (Singulair) 10 mg DAILY ORAL 02/05/18 09:00 03/05/18 08:59 02/06/18 08:40 Morphine Sulfate (Morphine Sulfate) 4 mg Q4H PRN IVP Severe Pain (Pain Scale 7-10) 02/04/18 12:00 02/10/18 11:59 Ondansetron HCl (Zofran) 4 mg Q6H PRN IVP Nausea & Vomiting 02/04/18 12:15 03/05/18 06:14 Pantoprazole (Protonix) 40 mg DAILY ORAL 02/05/18 09:00 03/05/18 08:59 02/06/18 08:40 Phenytoin (Dilantin) 100 mg Q12HR ORAL 02/04/18 21:00 03/06/18 20:59 02/06/18 08:40 Polyethylene Glycol (Miralax) 17 gm DAILYPRN PRN ORAL Constipation 02/04/18 12:00 03/06/18 11:59 Prednisone (predniSONE) 40 mg DAILY ORAL 02/06/18 09:00 03/08/18 08:59 02/06/18 08:41 Pregabalin (Lyrica) 50 mg Q12HR ORAL 02/04/18 21:00 03/05/18 08:59 02/06/18 08:40 Promethazine HCl/ Codeine (Phenergan with Codeine) 5 ml Q4H PRN ORAL For Cough 02/04/18 12:00 03/05/18 11:59 Theophylline (Fabrice-Dur) 100 mg EVERY 12 HOURS ORAL 02/04/18 21:00 03/05/18 20:59 02/06/18 08:40 Zolpidem Tartrate (Ambien) 5 mg HSPRN PRN ORAL Insomnia 02/04/18 21:00 02/11/18 20:59 Allergies: Coded Allergies: VANCOMYCIN (Verified Allergy, Unknown, red eyes, itchying, 10/10/16) ROS Limited/Unobtainable: No Constitutional: Reports: no symptoms HEENT: Reports: no symptoms Cardiovascular: Reports: no symptoms Respiratory: Reports: no symptoms Gastrointestinal/Abdominal: Reports: no symptoms Genitourinary: Reports: no symptoms Neurologic/Psychiatric: Reports: no symptoms Subjective 83 YO F admitted with shortness of breath and hypoxia. Now asthma exacerbation with bronchitis. Staff reports hemoptysis. Cover for Int Alex-Dr Garcia Objective Last Vital Signs Date Time Temp Pulse Resp B/P (MAP) Pulse Ox O2 Delivery O2 Flow Rate FiO2 02/06/18 13:18 95 20 98 Nasal Cannula 2.0 28 02/06/18 12:00 98.9 156/76 98.9 Intake and Output 02/05/18 02/06/18 19:00 07:00 Intake Total 880 ml Balance 880 ml Intake Oral 720 ml IV Total 160 ml # Voids 5 2 # Bowel Movements 1 Objective General Appearance: WD/WN, no apparent distress, alert EENT: PERRL/EOMI, normal ENT inspection Neck: non-tender, normal alignment, supple, normal inspection Cardiovascular: normal peripheral pulses, normal rate, regular rhythm, no gallop/murmur, no JVD Respiratory/Chest: chest wall non-tender, respiratory distress, crackles/rales , expiratory wheezing Abdomen: normal bowel sounds, non tender, soft, no organomegaly, no mass Extremities: normal range of motion, non-tender 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 See cardiology note. (4) SOB (shortness of breath) Assessment & Plan: Due to asthma (5) Asthma (6) HTN (hypertension) (7) Acute asthma exacerbation Assessment & Plan: See pulmonary note. Cont IV solumedrol (8) Bronchitis Assessment & Plan: Sputum culture=E. Coli. Discontinue levaquin-resistant. Continueceftriaxone-see ID consult. Repeat CXR (9) GERD (gastroesophageal reflux disease) (10) Seizure disorder Assessment & Plan: Continue dilantin (11) Hemoptysis Assessment & Plan: Repeat CXR. Continue ceftriaxone per ID Status: progressing Assessment/Plan discharge planning: home health Hank Toure MD Feb 06, 2018 17:32
[2018-02-06 20:00] VITALS: BP 166/91
[2018-02-06] MEDS: Atorvastatin 20mg tab ORAL SCH (20:01)
[2018-02-07] MEDS: Albuterol/Ipratropium 3ml neb HHN SCH ×3 (01:00→11:57)
[2018-02-07] MEDS: Milk of Magnesia 30ml Ud ORAL PRN (01:43)
[2018-02-07] MEDS: Albuterol/Ipratropium 3ml neb INH PRN (04:39)
[2018-02-07] MEDS: NovoLOG Insulin Flexpen SUBQ SCH ×2 (06:09→12:16)
[2018-02-07 08:00] VITALS: BP 149/85
[2018-02-07] MEDS: Theophylline ER 100mg ORAL SCH (08:25)
[2018-02-07] MEDS: Docusate 100mg cap ORAL SCH (08:26)
[2018-02-07] MEDS: Montelukast 10mg tablet ORAL SCH (08:26)
[2018-02-07] MEDS: Lyrica 50mg cap ORAL SCH (08:26)
[2018-02-07] MEDS: Phenytoin 100mg cap ORAL SCH (08:26)
--- NOTE | 2018-02-07 10:49 | Internal Med Progress Note ---
Subjective Date of Service: Feb 07, 2018 Physician Name Toure,Hank Attending Physician Shlomo Garcia MD Current Medications Medications (Trade) Dose Ordered Sig/Mecca Route PRN Reason Start Time Stop Time Status Last Admin Dose Admin Acetaminophen (Tylenol) 650 mg Q4H PRN RECTAL Mild Pain (Pain Scale 1-3) 02/04/18 12:00 03/05/18 11:59 Acetaminophen (Tylenol) 650 mg Q4H PRN RECTAL T>100.5 02/04/18 12:00 03/05/18 11:59 Albuterol/ Ipratropium (Albuterol/ Ipratropium) 3 ml Q4H PRN INH Shortness of Breath 02/04/18 12:00 02/08/18 11:59 02/07/18 04:39 Albuterol/ Ipratropium (Albuterol/ Ipratropium) 3 ml Q6HRT HHN 02/04/18 13:00 02/08/18 12:59 02/07/18 01:00 Amlodipine Besylate (Norvasc) 5 mg DAILY ORAL 02/05/18 09:00 03/05/18 08:59 02/07/18 08:26 Atorvastatin Calcium (Lipitor) 20 mg BEDTIME ORAL 02/04/18 21:00 03/05/18 20:59 02/06/18 20:01 Bisacodyl (Dulcolax) 10 mg DAILYPRN PRN RECTAL Constipation 02/04/18 12:00 03/06/18 11:59 Ceftriaxone Sodium 1 gm/ Dextrose 110 ml @ 220 mls/hr Q24H IVPB 02/05/18 14:00 02/12/18 13:59 02/06/18 14:21 Clonidine HCl (Catapres Tab) 0.1 mg Q6H PRN ORAL SBP>160 02/05/18 17:30 03/07/18 17:29 Dextrose (Dextrose 50%) 25 ml STAT PRN IV Hypoglycemia 02/04/18 12:00 03/06/18 11:59 Dextrose (Dextrose 50%) 50 ml STAT PRN IV Hypoglycemia 02/04/18 12:00 03/06/18 11:59 Docusate Sodium (Colace) 100 mg EVERY 12 HOURS ORAL 02/04/18 21:00 03/05/18 08:59 02/07/18 08:26 Fluoxetine HCl (PROzac) 20 mg DAILY ORAL 02/05/18 13:00 03/07/18 12:59 02/07/18 08:26 Hydroxyzine HCl (Atarax) 25 mg Q6H PRN ORAL Itching 02/06/18 12:00 03/08/18 11:59 02/06/18 11:41 Insulin Aspart (NovoLOG) BEFORE MEALS AND HS SUBQ 02/04/18 16:30 03/05/18 11:29 02/06/18 17:38 Lidocaine (Xylocaine 1% MPF 5ml) 10 ml EVERY 4 HOURS PRN HHN cough 02/05/18 14:30 03/07/18 14:29 Lorazepam (Ativan) 1 mg Q6H PRN ORAL For Anxiety 02/05/18 13:00 02/12/18 12:59 02/05/18 21:30 Magnesium Hydroxide (Mom) 30 ml HSPRN PRN ORAL Constipation 02/04/18 21:00 03/06/18 20:59 02/07/18 01:43 Montelukast Sodium (Singulair) 10 mg DAILY ORAL 02/05/18 09:00 03/05/18 08:59 02/07/18 08:26 Morphine Sulfate (Morphine Sulfate) 4 mg Q4H PRN IVP Severe Pain (Pain Scale 7-10) 02/04/18 12:00 02/10/18 11:59 Ondansetron HCl (Zofran) 4 mg Q6H PRN IVP Nausea & Vomiting 02/04/18 12:15 03/05/18 06:14 Pantoprazole (Protonix) 40 mg DAILY ORAL 02/05/18 09:00 03/05/18 08:59 02/07/18 08:25 Phenytoin (Dilantin) 100 mg Q12HR ORAL 02/04/18 21:00 03/06/18 20:59 02/07/18 08:26 Polyethylene Glycol (Miralax) 17 gm DAILYPRN PRN ORAL Constipation 02/04/18 12:00 03/06/18 11:59 02/06/18 19:44 Prednisone (predniSONE) 40 mg DAILY ORAL 02/06/18 09:00 03/08/18 08:59 02/07/18 08:27 Pregabalin (Lyrica) 50 mg Q12HR ORAL 02/04/18 21:00 03/05/18 08:59 02/07/18 08:26 Promethazine HCl/ Codeine (Phenergan with Codeine) 5 ml Q4H PRN ORAL For Cough 02/04/18 12:00 03/05/18 11:59 Theophylline (Fabrice-Dur) 100 mg EVERY 12 HOURS ORAL 02/04/18 21:00 03/05/18 20:59 02/07/18 08:25 Zolpidem Tartrate (Ambien) 5 mg HSPRN PRN ORAL Insomnia 02/04/18 21:00 02/11/18 20:59 Allergies: Coded Allergies: VANCOMYCIN (Verified Allergy, Unknown, red eyes, itchying, 10/10/16) ROS Limited/Unobtainable: No Constitutional: Reports: no symptoms HEENT: Reports: no symptoms Cardiovascular: Reports: no symptoms Respiratory: Reports: no symptoms Gastrointestinal/Abdominal: Reports: no symptoms Genitourinary: Reports: no symptoms Neurologic/Psychiatric: Reports: no symptoms Subjective 83 YO F admitted with shortness of breath and hypoxia. Now asthma exacerbation with bronchitis. Staff reports hemoptysis. Cover for Int Med-Dr Garcia. Await discharge home Objective Last Vital Signs Date Time Temp Pulse Resp B/P (MAP) Pulse Ox O2 Delivery O2 Flow Rate FiO2 02/07/18 08:26 92 149/85 02/07/18 07:58 Nasal Cannula 2.0 28 02/07/18 07:58 94 02/07/18 07:58 20 02/06/18 20:00 98.6 98.6 Intake and Output 02/06/18 02/07/18 19:00 07:00 Intake Total 110 ml Balance 110 ml IV Total 110 ml # Voids 2 Objective General Appearance: WD/WN, no apparent distress, alert EENT: PERRL/EOMI, normal ENT inspection Neck: non-tender, normal alignment, supple, normal inspection Cardiovascular: normal peripheral pulses, normal rate, regular rhythm, no gallop/murmur, no JVD Respiratory/Chest: chest wall non-tender, respiratory distress, crackles/rales , expiratory wheezing Abdomen: normal bowel sounds, non tender, soft, no organomegaly, no mass Extremities: normal range of motion, non-tender 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 See cardiology note. (4) SOB (shortness of breath) Assessment & Plan: Due to asthma (5) Asthma (6) HTN (hypertension) (7) Acute asthma exacerbation Assessment & Plan: See pulmonary note. Cont IV solumedrol (8) Bronchitis Assessment & Plan: Sputum culture=E. Coli. Discontinue levaquin-resistant. Continueceftriaxone-see ID consult. Repeat CXR (9) GERD (gastroesophageal reflux disease) (10) Seizure disorder Assessment & Plan: Continue dilantin (11) Hemoptysis Assessment & Plan: Repeat CXR. Continue ceftriaxone per ID Status: progressing Assessment/Plan discharge planning: home health. Ceftin 500 mg BID Hank Toure MD Feb 07, 2018 10:49
[2018-02-07] MEDS ORDERED: CEFUROXIME500 MG PO (11:19)
[2018-02-07] MEDS ORDERED: ATARAX25 MG ORAL (11:19)
[2018-02-07 12:00] VITALS: BP 154/91
--- NOTE | 2018-02-07 12:22 | General Progress Note ---
Assessment/Plan Status: stable, progressing Assessment/Plan Panic attack anxiety d/o Prozac 20mg qam Ativan prn Subjective Date patient seen: Feb 07, 2018 Neurologic/Psychiatric: Reports: anxiety, depressed, emotional problems Allergies: Coded Allergies: VANCOMYCIN (Verified Allergy, Unknown, red eyes, itchying, 10/10/16) Subjective the pt is less anxious took all her meds however not sleeping well Objective Last 24 Hour Vital Signs Date Time Temp Pulse Resp B/P (MAP) Pulse Ox O2 Delivery O2 Flow Rate FiO2 02/07/18 12:05 81 20 95 Nasal Cannula 2.0 28 02/07/18 11:57 79 18 95 Room Air 21 02/07/18 08:26 92 149/85 02/07/18 08:00 98.1 78 19 149/85 94 Room Air 98.1 02/07/18 07:58 Nasal Cannula 2.0 28 02/07/18 07:58 94 Nasal Cannula 2.0 28 02/07/18 07:58 Nasal Cannula 2.0 02/07/18 07:58 75 20 94 Nasal Cannula 2.0 02/07/18 04:47 95 20 97 Nasal Cannula 2.0 28 02/07/18 04:38 28 02/07/18 04:37 96 22 95 Nasal Cannula 2.0 28 02/07/18 01:18 84 20 96 Nasal Cannula 2.0 02/07/18 01:07 78 22 94 Nasal Cannula 2.0 02/06/18 20:45 Nasal Cannula 2.0 28 02/06/18 20:20 85 18 96 Room Air 2.0 02/06/18 20:08 96 Nasal Cannula 2.0 02/06/18 20:07 82 20 93 Room Air 02/06/18 20:00 98.6 81 19 166/91 94 Room Air 98.6 02/06/18 16:00 98.1 92 18 154/77 98 Room Air 98.1 02/06/18 13:18 95 20 98 Nasal Cannula 2.0 02/06/18 13:07 99 21 96 Nasal Cannula 2.0 28 Intake and Output 02/06/18 02/07/18 19:00 07:00 Intake Total 110 ml Balance 110 ml IV Total 110 ml # Voids 2 Height (Feet): 5 Height (Inches): 2.00 Weight (Pounds): 144 General Appearance: no apparent distress, alert Neurologic: oriented x 3, responsive, depressed affect Sherin Holm M.D. Feb 07, 2018 12:22
--- NOTE | 2018-02-07 12:40 | Pulmonology Progress Note ---
Assessment/Plan Problems: (1) Acute respiratory failure (2) Acute asthma exacerbation (3) HTN (hypertension) Assessment/Plan taper sterids change to oral check sputum titrate fio2 to sat of 92% respiratory therapy on lidocain inhalation sputum has GNR, E. Coli, sensitive to Ceftriaxone. monitor BP med/surg dvt prophylaxis. Subjective ROS Limited/Unobtainable: No Interval Events: less cough Constitutional: Reports: no symptoms HEENT: Repors: no symptoms Respiratory: Reports: no symptoms Allergies: Coded Allergies: VANCOMYCIN (Verified Allergy, Unknown, red eyes, itchying, 10/10/16) Objective Last 24 Hour Vital Signs Date Time Temp Pulse Resp B/P (MAP) Pulse Ox O2 Delivery O2 Flow Rate FiO2 02/07/18 12:05 81 20 95 Nasal Cannula 2.0 28 02/07/18 11:57 79 18 95 Room Air 21 02/07/18 08:26 92 149/85 02/07/18 08:00 98.1 78 19 149/85 94 Room Air 98.1 02/07/18 07:58 Nasal Cannula 2.0 28 02/07/18 07:58 94 Nasal Cannula 2.0 28 02/07/18 07:58 Nasal Cannula 2.0 02/07/18 07:58 75 20 94 Nasal Cannula 2.0 28 02/07/18 04:47 95 20 97 Nasal Cannula 2.0 02/07/18 04:38 28 02/07/18 04:37 96 22 95 Nasal Cannula 2.0 28 02/07/18 01:18 84 20 96 Nasal Cannula 2.0 28 02/07/18 01:07 78 22 94 Nasal Cannula 2.0 02/06/18 20:45 Nasal Cannula 2.0 28 02/06/18 20:20 85 18 96 Room Air 2.0 02/06/18 20:08 96 Nasal Cannula 2.0 28 02/06/18 20:07 82 20 93 Room Air 21 02/06/18 20:00 98.6 81 19 166/91 94 Room Air 98.6 02/06/18 16:00 98.1 92 18 154/77 98 Room Air 98.1 02/06/18 13:18 95 20 98 Nasal Cannula 2.0 28 02/06/18 13:07 99 21 96 Nasal Cannula 2.0 28 Intake and Output 02/06/18 02/07/18 19:00 07:00 Intake Total 110 ml Balance 110 ml IV Total 110 ml # Voids 2 General Appearance: WD/WN HEENT: atraumatic Respiratory/Chest: chest wall non-tender Cardiovascular: normal peripheral pulses, normal rate Abdomen: soft, non tender, no organomegaly, no scars Genitourinary: normal external genitalia Extremities: no clubbing Skin: no rash Current Medications Medications (Trade) Dose Ordered Sig/[place] Route PRN Reason Start Time Stop Time Status Last Admin Dose Admin Acetaminophen (Tylenol) 650 mg Q4H PRN RECTAL Mild Pain (Pain Scale 1-3) 02/04/18 12:00 03/05/18 11:59 Acetaminophen (Tylenol) 650 mg Q4H PRN RECTAL T>100.5 02/04/18 12:00 03/05/18 11:59 Albuterol/ Ipratropium (Albuterol/ Ipratropium) 3 ml Q4H PRN INH Shortness of Breath 02/04/18 12:00 02/08/18 11:59 02/07/18 04:39 Albuterol/ Ipratropium (Albuterol/ Ipratropium) 3 ml Q6HRT HHN 02/04/18 13:00 02/08/18 12:59 02/07/18 11:57 Amlodipine Besylate (Norvasc) 5 mg DAILY ORAL 02/05/18 09:00 03/05/18 08:59 02/07/18 08:26 Atorvastatin Calcium (Lipitor) 20 mg BEDTIME ORAL 02/04/18 21:00 03/05/18 20:59 02/06/18 20:01 Bisacodyl (Dulcolax) 10 mg DAILYPRN PRN RECTAL Constipation 02/04/18 12:00 03/06/18 11:59 Ceftriaxone Sodium 1 gm/ Dextrose 110 ml @ 220 mls/hr Q24H IVPB 02/05/18 14:00 02/12/18 13:59 02/06/18 14:21 Clonidine HCl (Catapres Tab) 0.1 mg Q6H PRN ORAL SBP>160 02/05/18 17:30 03/07/18 17:29 Dextrose (Dextrose 50%) 25 ml STAT PRN IV Hypoglycemia 02/04/18 12:00 03/06/18 11:59 Dextrose (Dextrose 50%) 50 ml STAT PRN IV Hypoglycemia 02/04/18 12:00 03/06/18 11:59 Docusate Sodium (Colace) 100 mg EVERY 12 HOURS ORAL 02/04/18 21:00 03/05/18 08:59 02/07/18 08:26 Fluoxetine HCl (PROzac) 20 mg DAILY ORAL 02/05/18 13:00 03/07/18 12:59 02/07/18 08:26 Hydroxyzine HCl (Atarax) 25 mg Q6H PRN ORAL Itching 02/06/18 12:00 03/08/18 11:59 02/06/18 11:41 Insulin Aspart (NovoLOG) BEFORE MEALS AND HS SUBQ 02/04/18 16:30 03/05/18 11:29 02/07/18 12:16 Lidocaine (Xylocaine 1% MPF 5ml) 10 ml EVERY 4 HOURS PRN HHN cough 02/05/18 14:30 03/07/18 14:29 Lorazepam (Ativan) 1 mg Q6H PRN ORAL For Anxiety 02/05/18 13:00 02/12/18 12:59 02/05/18 21:30 Magnesium Hydroxide (Mom) 30 ml HSPRN PRN ORAL Constipation 02/04/18 21:00 03/06/18 20:59 02/07/18 01:43 Montelukast Sodium (Singulair) 10 mg DAILY ORAL 02/05/18 09:00 03/05/18 08:59 02/07/18 08:26 Morphine Sulfate (Morphine Sulfate) 4 mg Q4H PRN IVP Severe Pain (Pain Scale 7-10) 02/04/18 12:00 02/10/18 11:59 Ondansetron HCl (Zofran) 4 mg Q6H PRN IVP Nausea & Vomiting 02/04/18 12:15 03/05/18 06:14 Pantoprazole (Protonix) 40 mg DAILY ORAL 02/05/18 09:00 03/05/18 08:59 02/07/18 08:25 Phenytoin (Dilantin) 100 mg Q12HR ORAL 02/04/18 21:00 03/06/18 20:59 02/07/18 08:26 Polyethylene Glycol (Miralax) 17 gm DAILYPRN PRN ORAL Constipation 02/04/18 12:00 03/06/18 11:59 02/06/18 19:44 Prednisone (predniSONE) 40 mg DAILY ORAL 02/06/18 09:00 03/08/18 08:59 02/07/18 08:27 Pregabalin (Lyrica) 50 mg Q12HR ORAL 02/04/18 21:00 03/05/18 08:59 02/07/18 08:26 Promethazine HCl/ Codeine (Phenergan with Codeine) 5 ml Q4H PRN ORAL For Cough 02/04/18 12:00 03/05/18 11:59 Theophylline (Fabrice-Dur) 100 mg EVERY 12 HOURS ORAL 02/04/18 21:00 03/05/18 20:59 02/07/18 08:25 Zolpidem Tartrate (Ambien) 5 mg HSPRN PRN ORAL Insomnia 02/04/18 21:00 02/11/18 20:59 Luis A Juares MD Feb 07, 2018 12:40
[2018-02-07] MEDS ORDERED: PREDNISONE10 M2 PO (13:34)
[2018-02-07] MEDS ORDERED: PROZAC20 MG ORAL (13:35)
--- NOTE | 2018-02-07 13:52 | Infectious Diseases Prog Note ---
Assessment/Plan Assessment/Plan ASSESSMENT AND PLAN: 1. e.coli uri/bronchitis, some congestion, no pna on chest x-ray - rocephin - day # 3 - watch clinically - can change to oral ceftin soon - plan on 7 day treatment course 2. The patient has asthma exacerbation. Continue pulmonary treatment. 3. The patient has a history of hypertension. Blood pressure treatment per primary and consultants. 4. History of hemorrhagic cerebrovascular accident. 5. Hypercholesteremia and hyperlipidemia. 6. History of hemorrhoids. 7. Seizures. 8. Coronary artery disease. 9. History of cardiac catheterization. 10. History of appendectomy. 11. Gastroesophageal reflux disease. 12. Past medical history as noted, anxiety, panic attacks 13. Allergies to vancomycin. 14. Social history is negative. 15. Family history noncontributory. 16. MAR was noted. 17. Case discussed with RN. 18. Case communicated with Dr. Toure. 19. Continue treatment per primary consultants. 20. Notes and records were noted . Orders were entered. Subjective Constitutional: Denies: fever, fatigue HEENT: Denies: dysphagia, congestion Respiratory: Denies: shortness of breath Cardiovascular: Denies: chest pain Gastrointestinal/Abdominal: Denies: nausea, vomiting, diarrhea Genitourinary: Reports: other - no castellanos, no cva pain; Denies: dysuria, hematuria, frequency Neurologic: Denies: headache Psychiatric: Denies: depression Skin: Denies: rash Hematologic: Denies: bleeding Musculoskeletal: Denies: pain Allergies: Coded Allergies: VANCOMYCIN (Verified Allergy, Unknown, red eyes, itchying, 10/10/16) Objective Vital Signs Last 24 Hour Vital Signs Date Time Temp Pulse Resp B/P (MAP) Pulse Ox O2 Delivery O2 Flow Rate FiO2 02/07/18 12:05 81 20 95 Nasal Cannula 2.0 28 02/07/18 12:00 98.8 92 20 154/91 95 Room Air 98.8 02/07/18 11:57 79 18 95 Room Air 21 02/07/18 08:26 92 149/85 02/07/18 08:00 98.1 78 19 149/85 94 Room Air 98.1 02/07/18 07:58 Nasal Cannula 2.0 28 02/07/18 07:58 94 Nasal Cannula 2.0 28 02/07/18 07:58 Nasal Cannula 2.0 02/07/18 07:58 75 20 94 Nasal Cannula 2.0 02/07/18 04:47 95 20 97 Nasal Cannula 2.0 02/07/18 04:38 28 02/07/18 04:37 96 22 95 Nasal Cannula 2.0 02/07/18 01:18 84 20 96 Nasal Cannula 2.0 02/07/18 01:07 78 22 94 Nasal Cannula 2.0 02/06/18 20:45 Nasal Cannula 2.0 02/06/18 20:20 85 18 96 Room Air 2.0 02/06/18 20:08 96 Nasal Cannula 2.0 02/06/18 20:07 82 20 93 Room Air 02/06/18 20:00 98.6 81 19 166/91 94 Room Air 98.6 02/06/18 16:00 98.1 92 18 154/77 98 Room Air 98.1 Height (Feet): 5 Height (Inches): 2.00 Weight (Pounds): 144 General Appearance: no acute distress HEENT: normocephalic, atraumatic, anicteric, mucous membranes moist Respiratory/Chest: lungs clear, normal breath sounds, no respiratory distress, no accessory muscle use Cardiovascular: normal rate, regular rhythm, no gallop/murmur, no JVD Abdomen: normal bowel sounds, soft, non tender, no organomegaly, non distended Genitourinary: other - no castellanos Extremities: no cyanosis Skin: no rash 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 Lungs and pleural spaces otherwise remain clear. Heart size is normal. Hiatal hernia, scalloping of the right hemidiaphragm are unchanged. Impression: No acute process Microbiology Date/Time Source Procedure Growth Status 02/03/18 12:00 Sputum Gram Stain - Final Complete 02/03/18 12:00 Sputum Culture - Final Escherichia Coli Usual Upper Respiratory Vandana Complete wbc - 5.9 hgb - 13.7 cr - 0.8 Current Medications Medications (Trade) Dose Ordered Sig/[place] Route PRN Reason Start Time Stop Time Status Last Admin Dose Admin Acetaminophen (Tylenol) 650 mg Q4H PRN RECTAL Mild Pain (Pain Scale 1-3) 02/04/18 12:00 03/05/18 11:59 Acetaminophen (Tylenol) 650 mg Q4H PRN RECTAL T>100.5 02/04/18 12:00 03/05/18 11:59 Albuterol/ Ipratropium (Albuterol/ Ipratropium) 3 ml Q4H PRN INH Shortness of Breath 02/04/18 12:00 02/08/18 11:59 02/07/18 04:39 Albuterol/ Ipratropium (Albuterol/ Ipratropium) 3 ml Q6HRT HHN 02/04/18 13:00 02/08/18 12:59 02/07/18 11:57 Amlodipine Besylate (Norvasc) 5 mg DAILY ORAL 02/05/18 09:00 03/05/18 08:59 02/07/18 08:26 Atorvastatin Calcium (Lipitor) 20 mg BEDTIME ORAL 02/04/18 21:00 03/05/18 20:59 02/06/18 20:01 Bisacodyl (Dulcolax) 10 mg DAILYPRN PRN RECTAL Constipation 02/04/18 12:00 03/06/18 11:59 Ceftriaxone Sodium 1 gm/ Dextrose 110 ml @ 220 mls/hr Q24H IVPB 02/05/18 14:00 02/12/18 13:59 02/06/18 14:21 Clonidine HCl (Catapres Tab) 0.1 mg Q6H PRN ORAL SBP>160 02/05/18 17:30 03/07/18 17:29 Dextrose (Dextrose 50%) 25 ml STAT PRN IV Hypoglycemia 02/04/18 12:00 03/06/18 11:59 Dextrose (Dextrose 50%) 50 ml STAT PRN IV Hypoglycemia 02/04/18 12:00 03/06/18 11:59 Docusate Sodium (Colace) 100 mg EVERY 12 HOURS ORAL 02/04/18 21:00 03/05/18 08:59 02/07/18 08:26 Fluoxetine HCl (PROzac) 20 mg DAILY ORAL 02/05/18 13:00 03/07/18 12:59 02/07/18 08:26 Hydroxyzine HCl (Atarax) 25 mg Q6H PRN ORAL Itching 02/06/18 12:00 03/08/18 11:59 02/06/18 11:41 Insulin Aspart (NovoLOG) BEFORE MEALS AND HS SUBQ 02/04/18 16:30 03/05/18 11:29 02/07/18 12:16 Lidocaine (Xylocaine 1% MPF 5ml) 10 ml EVERY 4 HOURS PRN HHN cough 02/05/18 14:30 03/07/18 14:29 Lorazepam (Ativan) 1 mg Q6H PRN ORAL For Anxiety 02/05/18 13:00 02/12/18 12:59 02/05/18 21:30 Magnesium Hydroxide (Mom) 30 ml HSPRN PRN ORAL Constipation 02/04/18 21:00 03/06/18 20:59 02/07/18 01:43 Montelukast Sodium (Singulair) 10 mg DAILY ORAL 02/05/18 09:00 03/05/18 08:59 02/07/18 08:26 Morphine Sulfate (Morphine Sulfate) 4 mg Q4H PRN IVP Severe Pain (Pain Scale 7-10) 02/04/18 12:00 02/10/18 11:59 Ondansetron HCl (Zofran) 4 mg Q6H PRN IVP Nausea & Vomiting 02/04/18 12:15 03/05/18 06:14 Pantoprazole (Protonix) 40 mg DAILY ORAL 02/05/18 09:00 03/05/18 08:59 02/07/18 08:25 Phenytoin (Dilantin) 100 mg Q12HR ORAL 02/04/18 21:00 03/06/18 20:59 02/07/18 08:26 Polyethylene Glycol (Miralax) 17 gm DAILYPRN PRN ORAL Constipation 02/04/18 12:00 03/06/18 11:59 02/06/18 19:44 Prednisone (predniSONE) 40 mg DAILY ORAL 02/06/18 09:00 03/08/18 08:59 02/07/18 08:27 Pregabalin (Lyrica) 50 mg Q12HR ORAL 02/04/18 21:00 03/05/18 08:59 02/07/18 08:26 Promethazine HCl/ Codeine (Phenergan with Codeine) 5 ml Q4H PRN ORAL For Cough 02/04/18 12:00 03/05/18 11:59 Theophylline (Fabrice-Dur) 100 mg EVERY 12 HOURS ORAL 02/04/18 21:00 03/05/18 20:59 02/07/18 08:25 Zolpidem Tartrate (Ambien) 5 mg HSPRN PRN ORAL Insomnia 02/04/18 21:00 02/11/18 20:59 Teofilo Rosenberg MD Feb 07, 2018 13:52
[2018-02-07] MEDS: cefTRIAXone 1 GM in D5W 110 ML IVPB SCH (14:02)
[2018-02-07] MEDS: HydrOXYzine tab 25 MG TAB ORAL PRN (14:02)
--- NOTE | 2018-02-08 07:41 | Discharge Summary ---
Discharge Summary Discharge Summary _ DATE OF ADMISSION: 02/03/2018 DATE OF DISCHARGE: 02/07/2018 CONSULTANTS: Dr. Teofilo Juares BRIEF HOSPITAL COURSE: Patient is an 83-year-old female, who presented to ED with chief complaint of shortness of breath. She was admitted to [facility] on October 2017 and at that time, she was in respiratory failure and was placed on BiPAP. She was diagnosed with acute asthma exacerbation and was subsequently discharged. Her current symptoms started the day prior to admission, when she began to experience shortness of breath. She denied cough. There was no relief with use of inhaler, dyspnea was worse with exertion. She denied any shortness of breath since last admission to [place]. Per paramedics, O2 saturation was found to be low at 80%, she was given nebulizer treatments. On arrival to ED, she was still slightly wheezing, O2 saturation was 93% on room air. She had a chest x-ray done that showed no acute disease, no consolidation, no effusion, no pneumothorax, no acute cardiopulmonary disease. EKG was in normal sinus rhythm. Blood work was unremarkable. She was then admitted for evaluation of shortness of breath. She was seen by medical records custodian, she was continued on nebulizer treatments and was started empirically on intravenous Levaquin for possible acute bronchitis. She was started on IV Solu-Medrol 80 mg every 8 hours. She was given morphine 10 mg daily and was continued on Advair twice a day and Fabrice-Dur Patient has history of anxiety and panic attacks. Psychiatric evaluation was done she was given Prozac 20 mg every morning and Ativan prn. Sputum culture with growth of Escherichia coli. Infectious disease specialist was consulted. Levaquin was discontinued and she was given Rocephin. There was noted hemoptysis reported by staff, aspirin was discontinued. She was also given lidocaine inhalation. Sputum culture was sensitive to ceftriaxone. There was no evidence of acute coronary syndrome, troponins were negative and there was no chest pain. She was recommended outpatient echocardiogram to evaluate for hypertensive heart disease and diastolic dysfunction. There was no sign of acute heart failure No indication for diuretics. She was continued on amlodipine and Lipitor. Repeat chest x-ray showed improvement. IV steroids was tapered to oral. She was eventually cleared for discharge home to continue antibiotics. FINAL DIAGNOSES: Acute asthma exacerbation Acute bronchitis with Escherichia coli Coronary artery disease Hypertension Hemorrhagic stroke Seizure disorder Hemoptysis DISPOSITION: Patient was discharged home with home health. DISCHARGE MEDICATIONS: Refer to Discharge Medication List. Continue with cefuroxime 500 mg every 12 hours for 5 more days. DISCHARGE INSTRUCTIONS: Follow up with PCP in a week. I have been assigned to dictate discharge summary on this account, and I was not involved in the patient's management. Vernell Russo NP Feb 08, 2018 07:41
== END 2018-02-07 16:40 | disposition home health service (06) | DRG 189 ==
LOC: EDBD 00:22 → EMR 02:13 → 2E 02:18 → EDBEDREQ 02:52 → 4E 02-04 11:40
DX: J96.01 Acute respiratory failure with hypoxia (principal); J45.901 Unspecified asthma with (acute) exacerbation; R04.2 Hemoptysis; I10 Essential (primary) hypertension; J20.9 Acute bronchitis, unspecified; I25.10 Atherosclerotic heart disease of native coronary artery without angina pectoris; G40.909 Epilepsy, unspecified, not intractable, without status epilepticus; F41.0 Panic disorder [episodic paroxysmal anxiety]; K21.9 Gastro-esophageal reflux disease without esophagitis; E78.00 Pure hypercholesterolemia, unspecified; B96.20 Unspecified Escherichia coli [E. coli] as the cause of diseases classified elsewhere; Z16.39 Resistance to other specified antimicrobial drug; Z95.5 Presence of coronary angioplasty implant and graft; Z86.73 Personal history of transient ischemic attack (TIA), and cerebral infarction without residual deficits
CPT/HCPCS: 36415; 71045; 80053; 81003; 82550; 82553; 82962; 83880; 84484; 85025; 87070; 87181; 87205; 93005; 94640; 94664; 94760; J1815; J7620

== ENCOUNTER 2018-03-21 20:40 | Inpatient (IN) | payer MEDICARE, MEDICAID ==
[~2018-03-21] VITALS: Ht 154.9 cm; Wt 68.9 kg
[~2018-03-21 20:40] MED LIST changes: +ATARAX25 MG ORAL; +CEFUROXIME500 MG PO; +PREDNISONE10 M2 PO; +PROZAC20 MG ORAL; +UNOBMED
[2018-03-21 20:45] VITALS: BP 188/98
[2018-03-21] MEDS ORDERED: Albuterol ud Inhalation HHN ONE (21:00)
[2018-03-21] MEDS ORDERED: Ipratropium 0.02% Inh Soln 2.5ml UD HHN ONE (21:00)
[2018-03-21 21:44] LABS: BASOPHILS % (AUTO) 0.4 % (0.0-2.0); EOSINOPHILS % (AUTO) 2.8 % (0.0-3.0); HEMATOCRIT 37.3 % (37.0-47.0); HEMOGLOBIN 12.7 G/DL (12.0-16.0); LYMPHOCYTES % (AUTO) 18.2 % (20.0-45.0); MEAN CORPUSCULAR VOLUME 91 FL (80-99); MONOCYTES % (AUTO) 6.2 % (1.0-10.0); NEUTROPHILS % (AUTO) 72.5 % (45.0-75.0); PLATELET COUNT 188 K/UL (150-450); RED BLOOD COUNT 4.12 M/UL (4.20-5.40); RED CELL DISTRIBUTION WIDTH 12.4 % (11.6-14.8); WHITE BLOOD COUNT 10.2 K/UL (4.8-10.8)
[2018-03-21 21:57] LABS: ANION GAP 5 mmol/L (5-15); BLOOD UREA NITROGEN 21 mg/dL (7-18); CALCIUM 8.7 MG/DL (8.5-10.1); CARBON DIOXIDE 32 MMOL/L (21-32); CHLORIDE 101 MMOL/L (98-107); CREATININE 0.8 MG/DL (0.55-1.30); POTASSIUM 3.1 MMOL/L (3.5-5.1); SODIUM 138 MMOL/L (136-145)
[2018-03-21 22:02] LABS: ALANINE AMINOTRANSFERASE 29 U/L (12-78); ALBUMIN 3.5 G/DL (3.4-5.0); ALBUMIN/GLOBULIN RATIO 0.9 (1.0-2.7); ALKALINE PHOSPHATASE 92 U/L (46-116); ASPARTATE AMINO TRANSFERASE 15 U/L (15-37); BILIRUBIN,TOTAL 0.4 MG/DL (0.2-1.0)
--- NOTE | 2018-03-21 22:24 | Emergency Room Report ---
History of Present Illness General Chief Complaint: Dyspnea/Respdistress Source: Patient, EMS Present Illness HPI This patient has a history of severe asthma/COPD. She states that about 4 days ago she developed a cough and congestion. She states that she has progressively become short of breath over the past 4 days. She states she has tried her inhalers and nebulizer machine without relief. She has a history of severe asthma and respiratory failure. She denies fever or chills. She denies nausea or vomiting. She has no other complaints. Allergies: Coded Allergies: VANCOMYCIN (Verified Allergy, Unknown, red eyes, itchying, 10/10/16) Patient History Past Medical History: see triage record, HTN, asthma, seizures Social History: Denies: smoking, alcohol use, drug use Last Menstrual Period: NA Reviewed Nursing Documentation: PMH: Agreed; PSxH: Agreed Nursing Documentation-PMH Hx Cardiac Problems: Yes Hx Hypertension: Yes Hx Asthma: Yes Hx Cancer: No Hx Gastrointestinal Problems: No Hx Neurological Problems: Yes Hx Cerebrovascular Accident: Yes Hx Seizures: Yes Review of Systems All Other Systems: negative except mentioned in HPI Physical Exam Vital Signs Date Time Temp Pulse Resp B/P (MAP) Pulse Ox O2 Delivery O2 Flow Rate FiO2 03/21/18 20:29 98.1 89 18 188/98 99 Room Air 98.1 03/21/18 21:00 21 Sp02 EP Interpretation: reviewed, normal General Appearance: alert, GCS 15, non-toxic, moderate distress Head: normocephalic, atraumatic Eyes: bilateral eye normal inspection, bilateral eye PERRL ENT: hearing grossly normal, normal pharynx, no angioedema, normal voice Neck: full range of motion, supple/symm/no masses Respiratory: chest non-tender, respiratory distress, accessory muscle use, wheezing, expiration Cardiovascular #1: regular rate, rhythm, no edema Gastrointestinal: normal bowel sounds, non tender, soft, non-distended, no guarding, no rebound Rectal: deferred Musculoskeletal: back normal, gait/station normal, normal range of motion, non- tender Neurologic: alert, oriented x3, responsive, motor strength/tone normal, sensory intact, speech normal Psychiatric: judgement/insight normal, memory normal, mood/affect normal, no suicidal/homicidal ideation Skin: normal color, no rash, warm/dry, well hydrated Medical Decision Making Diagnostic Impression: Primary Impression: Acute asthma exacerbation ER Course This patient presents with a severe asthma exacerbation and status asthmaticus. She is a history of respiratory failure. On arrival, the patient was in respiratory distress using accessory muscles and hypoxemic. The patient was given albuterol, Atrovent and steroids and placed on oxygen. She did improve but continued to have wheezing on exam. I'm concerned that this patient historically has decompensated and developed respiratory failure, so I felt that this patient should be admitted to the ICU step down for very close respiratory monitoring. This patient is critically ill. This patient required complex medical decision- making, aggressive intervention, extensive laboratory workup and monitoring. Critical care time: 40 minutes. Laboratory Tests Test 03/21/18 21:24 03/21/18 22:03 White Blood Count 10.2 K/UL (4.8-10.8) Red Blood Count 4.12 M/UL (4.20-5.40) L Hemoglobin 12.7 G/DL (12.0-16.0) Hematocrit 37.3 % (37.0-47.0) Mean Corpuscular Volume 91 FL (80-99) Mean Corpuscular Hemoglobin 30.9 PG (27.0-31.0) Mean Corpuscular Hemoglobin Concent 34.2 G/DL (32.0-36.0) Red Cell Distribution Width 12.4 % (11.6-14.8) Platelet Count 188 K/UL (150-450) Mean Platelet Volume 6.3 FL (6.5-10.1) L Neutrophils (%) (Auto) 72.5 % (45.0-75.0) Lymphocytes (%) (Auto) 18.2 % (20.0-45.0) L Monocytes (%) (Auto) 6.2 % (1.0-10.0) Eosinophils (%) (Auto) 2.8 % (0.0-3.0) Basophils (%) (Auto) 0.4 % (0.0-2.0) Sodium Level 138 MMOL/L (136-145) Potassium Level 3.1 MMOL/L (3.5-5.1) L Chloride Level 101 MMOL/L (98-107) Carbon Dioxide Level 32 MMOL/L (21-32) Anion Gap 5 mmol/L (5-15) Blood Urea Nitrogen 21 mg/dL (7-18) H Creatinine 0.8 MG/DL (0.55-1.30) Estimate Glomerular Filtration Rate mL/min (>60) Glucose Level 116 MG/DL (74-106) H Calcium Level 8.7 MG/DL (8.5-10.1) Total Bilirubin 0.4 MG/DL (0.2-1.0) Aspartate Amino Transferase (AST) 15 U/L (15-37) Alanine Aminotransferase (ALT) 29 U/L (12-78) Alkaline Phosphatase 92 U/L (46-116) Total Protein 7.6 G/DL (6.4-8.2) Albumin 3.5 G/DL (3.4-5.0) Globulin 4.1 g/dL Albumin/Globulin Ratio 0.9 (1.0-2.7) L Urine Color Pending Urine Appearance Pending Urine pH Pending Urine Specific [place] Pending Urine Protein Pending Urine Glucose (UA) Pending Urine Ketones Pending Urine Occult Blood Pending Urine Nitrite Pending Urine Bilirubin Pending Urine Urobilinogen Pending Urine Leukocyte Esterase Pending EKG Diagnostic Results Rate: normal Rhythm: NSR ST Segments: no acute changes Rhythm Strip Diag. Results EP Interpretation: yes Rate: 80's Rhythm: NSR, no PVC's, no ectopy Chest X-Ray Diagnostic Results Chest X-Ray Diagnostic Results : Chest X-Ray Ordered: Yes # of Views/Limited/Complete: 1 View Indication: Shortness of Breath Interpretation: no consolidation, no effusion, no pneumothorax, no acute cardiopulmonary disease Impression: No acute disease Last Vital Signs Date Time Temp Pulse Resp B/P (MAP) Pulse Ox O2 Delivery O2 Flow Rate FiO2 03/21/18 21:01 86 18 98 Room Air 21 03/21/18 20:45 98.1 188/98 98.1 Disposition: ADMITTED INPATIENT Condition: Critical Referrals: NON PHYSICIAN (PCP) Tammy Tam DO Mar 21, 2018 22:24
[2018-03-21 22:31] VITALS: BP 120/58
[2018-03-21 22:35] LABS: APPEARANCE,URINE CLEAR; BILIRUBIN, URINE NEGATIVE (NEGATIVE); COLOR,URINE PALE YELLOW; GLUCOSE, URINE (UA) NEGATIVE (NEGATIVE); KETONES,URINE NEGATIVE (NEGATIVE); LEUKOCYTE ESTERASE ,URINE 1+ (NEGATIVE); NITRITE,URINE NEGATIVE (NEGATIVE); PH,URINE 5 (4.5-8.0); PROTEIN,URINE 3+ (NEGATIVE); UROBILINOGEN,URINE NORMAL MG/DL (0.0-1.0)
[2018-03-21] MEDS ORDERED: MONTELUKAST SODI4 M1 ORAL (22:41)
[2018-03-21] MEDS ORDERED: LORATADINE10 M1 PO (22:41)
[2018-03-21] MEDS ORDERED: DIOVAN80 MG ORAL (22:41)
[2018-03-21] MEDS ORDERED: LABETALOL H5 MG/1 M1 IV (22:41)
[2018-03-21] MEDS ORDERED: LIPITOR80 MG ORAL (22:41)
[2018-03-21] MEDS ORDERED: DEXILANT60 MG ORAL (22:41)
[2018-03-21] MEDS ORDERED: ISOSORBIDE1 G1 MC (22:41)
[2018-03-21 23:45] VITALS: BP 140/77
[2018-03-22 04:00] VITALS: BP 158/75
[2018-03-22] MEDS ORDERED: Ketorolac 30mg Inj IV PRN (07:30)
[2018-03-22] MEDS ORDERED: Morphine Sulfate 2mg/ml Inj IVP PRN (07:30)
[2018-03-22] MEDS ORDERED: LORazepam Inj 2mg/ml 1ml IV PRN (07:30)
[2018-03-22] MEDS ORDERED: Nitroglycerin Subl 0.4mg tab SL PRN (07:30)
[2018-03-22 08:00] VITALS: BP 159/79
--- NOTE | 2018-03-22 09:11 | Diagnostic Imaging Report ---
Indication: Shortness of breath Technique: One view of the chest Comparison: 02/06/2018 Findings: The heart is borderline enlarged. The aorta is tortuous. There are degenerative changes of the thoracic spine. There is scarring are seen in the left lung apex, unchanged. There is mild central bronchial wall thickening. There is slight blunting of left costophrenic sulcus again demonstrated. Retrocardiac opacity probably represents a hiatal hernia. Impression: Small left pleural effusion versus scarring of the left costophrenic sulcus, unchanged since 02/06/2018 No acute process otherwise Chronic changes, as described Borderline cardiomegaly Hiatal hernia
[2018-03-22] MEDS: Promethazine/Codeine 5ml UD ORAL PRN ×2 (09:22→21:58)
[2018-03-22] MEDS: Lyrica 50mg cap ORAL SCH ×2 (09:23→20:52)
[2018-03-22] MEDS: Theophylline ER 100mg ORAL SCH ×2 (09:23→20:50)
[2018-03-22] MEDS: Heparin 5000 units/ml inj SUBQ SCH ×2 (09:24→20:53)
[2018-03-22] MEDS: Albuterol/Ipratropium 3ml neb HHN PRN ×2 (09:27→16:04)
--- NOTE | 2018-03-22 10:11 | Consultation ---
History of Present Illness General Date patient seen: Mar 22, 2018 Chief Complaint: Dyspnea/Respdistress Present Illness HPI 83-year-old Kiswahili speaking female with hx of asthma, HTN, with recent hospitalization at [facility] presented to ER with chief complaint shortness of breath and respiratory distress No relief with her inhaler. Worse with exertion. EMS gave her breathing treatment and put on oxygen. Per target developer, she was saturating at high 80 percentile. On arrival to ER she was in respiratory distress. She received prednisone. She improved somewhat. She is admitted to telemetry for further w/u. Allergies: Coded Allergies: VANCOMYCIN (Verified Allergy, Unknown, red eyes, itchying, 10/10/16) Medication History Scheduled Albuterol Sulfate (Ventolin Hfa), 1 PUFF INH EVERY 6 HOURS Amlodipine Besylate* (Amlodipine Besylate*), 2.5 MG ORAL DAILY, (Reported) Atorvastatin (Lipitor), 40 MG ORAL DAILY, (Reported) Cefuroxime Axetil* (Cefuroxime*), 500 MG PO Q12HR Clopidogrel* (Clopidogrel*), 75 MG ORAL DAILY, (Reported) Dexlansoprazole (Dexilant), 60 MG ORAL QHS, (Reported) Dexlansoprazole (Dexilant), 60 MG ORAL DAILY, (Reported) Fluoxetine Hcl* (Prozac*), 20 MG ORAL DAILY, (Reported) Fluticasone/Salmeterol (Advair 250-50 Diskus), 1 PUFF INH EVERY 12 HOURS Labetalol Hcl* (Labetalol Hcl*), 100 MG IV DAILY, (Reported) Levocetirizine Dihydrochloride (Levocetirizine Dihydrochloride), 5 MG ORAL DAILY , (Reported) Loratadine (Loratadine), 10 MG PO DAILY, (Reported) Montelukast Sodium (Montelukast Sodium), 10 MG ORAL DAILY, (Reported) Montelukast Sodium* (Montelukast Sodium*), 10 MG ORAL DAILY, (Reported) Phenytoin Sodium Extended* (Phenytoin Sodium Extended*), 100 MG ORAL DAILY, ( Reported) Phenytoin Sodium Extended* (Phenytoin Sodium Extended*), 100 MG ORAL BEDTIME, ( Reported) Pregabalin (Lyrica), 50 MG ORAL Q12HR, (Reported) Valsartan (Diovan), 12.5 MG ORAL DAILY, (Reported) Valsartan/Hydrochlorothiazide 160-12.5 (Valsartan-Hctz 160-12.5 Mg Tab), 1 TAB ORAL Q12HR, (Reported) Scheduled PRN Hydroxyzine HCl (Hydroxyzine HCl), 25 MG ORAL Q6H PRN Miscellaneous Medications Isosorbide (Isosorbide), 30 MG MC, (Reported) Prednisone (Prednisone), 40 MG PO, (Reported) Patient History Healthcare decision maker Resuscitation status Full Code Advanced Directive on File Past Medical/Surgical History Past Medical/Surgical History: (1) HTN (hypertension) (2) CAD (coronary artery disease) (3) Hemorrhagic stroke Review of Systems All Other Systems: negative except mentioned in HPI Physical Exam General Appearance: WD/WN Lines, tubes and drains: peripheral HEENT: normocephalic Neck: non-tender, normal alignment Respiratory/Chest: chest wall non-tender, lungs clear Cardiovascular/Chest: normal peripheral pulses, normal rate Abdomen: normal bowel sounds Genitourinary/Rectal: normal genital exam Extremities: normal range of motion Skin Exam: normal pigmentation Neurologic: exercise manager II-XII grossly normal Last 24 Hour Vital Signs Date Time Temp Pulse Resp B/P (MAP) Pulse Ox O2 Delivery O2 Flow Rate FiO2 03/22/18 09:38 84 18 95 Room Air 21 03/22/18 09:27 84 18 95 Room Air 21 03/22/18 09:23 77 159/79 03/22/18 08:00 Room Air 03/22/18 08:00 98.6 82 19 159/79 (105) 95 98.6 03/22/18 08:00 77 03/22/18 04:00 Room Air 03/22/18 04:00 78 03/22/18 04:00 98.2 96 20 158/75 (102) 93 98.2 03/22/18 00:56 Room Air 03/22/18 00:00 92 03/22/18 00:00 Room Air 03/21/18 23:45 98.1 85 20 140/77 (98) 94 98.1 03/21/18 23:43 97.2 89 19 120/58 96 Room Air 21 97.2 03/21/18 22:31 97.2 89 19 120/58 96 Room Air 21 97.2 03/21/18 21:01 86 18 98 Room Air 21 03/21/18 21:00 86 20 Room Air 21 03/21/18 20:45 89 18 Room Air 03/21/18 20:45 98.1 84 18 188/98 99 Room Air 98.1 03/21/18 20:29 98.1 89 18 188/98 99 Room Air 98.1 Intake and Output 03/21/18 03/22/18 19:00 07:00 Intake Total 110 ml Balance 110 ml Intake Oral 110 ml # Voids 5 Laboratory Tests Test 03/21/18 21:24 03/21/18 22:03 White Blood Count 10.2 K/UL (4.8-10.8) Red Blood Count 4.12 M/UL (4.20-5.40) L Hemoglobin 12.7 G/DL (12.0-16.0) Hematocrit 37.3 % (37.0-47.0) Mean Corpuscular Volume 91 FL (80-99) Mean Corpuscular Hemoglobin 30.9 PG (27.0-31.0) Mean Corpuscular Hemoglobin Concent 34.2 G/DL (32.0-36.0) Red Cell Distribution Width 12.4 % (11.6-14.8) Platelet Count 188 K/UL (150-450) Mean Platelet Volume 6.3 FL (6.5-10.1) L Neutrophils (%) (Auto) 72.5 % (45.0-75.0) Lymphocytes (%) (Auto) 18.2 % (20.0-45.0) L Monocytes (%) (Auto) 6.2 % (1.0-10.0) Eosinophils (%) (Auto) 2.8 % (0.0-3.0) Basophils (%) (Auto) 0.4 % (0.0-2.0) Sodium Level 138 MMOL/L (136-145) Potassium Level 3.1 MMOL/L (3.5-5.1) L Chloride Level 101 MMOL/L (98-107) Carbon Dioxide Level 32 MMOL/L (21-32) Anion Gap 5 mmol/L (5-15) Blood Urea Nitrogen 21 mg/dL (7-18) H Creatinine 0.8 MG/DL (0.55-1.30) Estimat Glomerular Filtration Rate mL/min (>60) Glucose Level 116 MG/DL (74-106) H Calcium Level 8.7 MG/DL (8.5-10.1) Total Bilirubin 0.4 MG/DL (0.2-1.0) Aspartate Amino Transf (AST/SGOT) 15 U/L (15-37) Alanine Aminotransferase (ALT/SGPT) 29 U/L (12-78) Alkaline Phosphatase 92 U/L (46-116) Total Protein 7.6 G/DL (6.4-8.2) Albumin 3.5 G/DL (3.4-5.0) Globulin 4.1 g/dL Albumin/Globulin Ratio 0.9 (1.0-2.7) L Urine Color Pale yellow Urine Appearance Clear Urine pH 5 (4.5-8.0) Urine Specific [place] 1.020 (1.005-1.035) Urine Protein 3+ (NEGATIVE) H Urine Glucose (UA) Negative (NEGATIVE) Urine Ketones Negative (NEGATIVE) Urine Occult Blood 2+ (NEGATIVE) H Urine Nitrite Negative (NEGATIVE) Urine Bilirubin Negative (NEGATIVE) Urine Urobilinogen Normal MG/DL (0.0-1.0) Urine Leukocyte Esterase 1+ (NEGATIVE) H Urine RBC 2-4 /HPF (0 - 2) H Urine WBC 2-4 /HPF (0 - 2) Urine Squamous Epithelial Cells Occasional /LPF Urine Bacteria Few /HPF (NONE) Height (Feet): 5 Height (Inches): 1.00 Weight (Pounds): 152 Medications Current Medications Medications (Trade) Dose Ordered Sig/[place] Route PRN Reason Start Time Stop Time Status Last Admin Dose Admin Albuterol/ Ipratropium (Albuterol/ Ipratropium) 3 ml Q4H PRN HHN dyspnea 03/22/18 07:30 03/27/18 07:29 03/22/18 09:27 Amlodipine Besylate (Norvasc) 2.5 mg DAILY ORAL 03/22/18 09:00 04/21/18 08:59 03/22/18 09:23 Clopidogrel Bisulfate (Plavix) 75 mg DAILY ORAL 03/22/18 09:00 04/21/18 08:59 03/22/18 09:23 Dextrose (Dextrose 50%) 25 ml STAT PRN IV Hypoglycemia 03/22/18 07:30 04/21/18 07:29 Dextrose (Dextrose 50%) 50 ml STAT PRN IV Hypoglycemia 03/22/18 07:45 04/21/18 07:44 Heparin Sodium (Porcine) (Heparin 5000 units/ml) 5,000 units EVERY 12 HOURS SUBQ 03/22/18 09:00 04/21/18 08:59 03/22/18 09:24 Lorazepam (Ativan 2mg/ml 1ml) 0.5 mg Q4H PRN IV For Anxiety 03/22/18 07:30 03/29/18 07:29 Methylprednisolone Sodium Succinate (Solu-MEDROL) 60 mg EVERY 6 HOURS IV 03/22/18 12:00 04/21/18 11:59 Nitroglycerin (Ntg) 0.4 mg Q5M X 3 DOSES PRN SL Prn Chest Pain 03/22/18 07:30 04/21/18 07:29 Ondansetron HCl (Zofran) 4 mg Q6H PRN IVP Nausea & Vomiting 03/22/18 07:30 04/21/18 07:29 Phenytoin (Dilantin) 100 mg BEDTIME ORAL 03/22/18 21:00 04/21/18 20:59 Piperacillin Sod/ Tazobactam Sod 3.375 gm/Dextrose 110 ml @ 27.5 mls/hr EVERY 8 HOURS IVPB 03/22/18 14:00 03/29/18 13:59 Pregabalin (Lyrica) 50 mg Q12HR ORAL 03/22/18 09:00 04/21/18 08:59 03/22/18 09:23 Promethazine HCl/ Codeine (Phenergan with Codeine) 5 ml Q6H PRN ORAL cough 03/22/18 07:30 04/21/18 07:29 03/22/18 09:22 Temazepam (Restoril) 15 mg HSPRN PRN ORAL Insomnia 03/22/18 07:30 03/29/18 07:29 Theophylline (Fabrice-Dur) 100 mg EVERY 12 HOURS ORAL 03/22/18 09:00 04/21/18 08:59 03/22/18 09:23 Assessment/Plan Problem List: (1) Acute respiratory failure ICD Codes: J96.00 - Acute respiratory failure, unspecified whether with hypoxia or hypercapnia SNOMED: 81145052 (2) Acute asthma exacerbation ICD Codes: J45.901 - Unspecified asthma with (acute) exacerbation SNOMED: 909133527 (3) CAD (coronary artery disease) ICD Codes: I25.10 - Atherosclerotic heart disease of [place] coronary artery without angina pectoris SNOMED: 62460225 (4) HTN (hypertension) ICD Codes: I10 - Essential (primary) hypertension SNOMED: 09169703 Assessment/Plan respiratory treatment iv steroids iv abx check sputum check electrolytes antitussives check electrolytes. dvt prophylaxis Luis A Juares MD Mar 22, 2018 10:11
[2018-03-22 11:52] VITALS: BP 128/67
[2018-03-22] MEDS ORDERED: Sennosides 8.6mg ORAL SCH (12:00)
[2018-03-22] MEDS: Solu-MEDROL 125mg Inj IV SCH ×3 (12:03→23:50)
--- NOTE | 2018-03-22 12:27 | Consultation ---
History of Present Illness General Date patient seen: Mar 22, 2018 Chief Complaint: Dyspnea/Respdistress Present Illness HPI 83 female with history of severe asthma/COPD and anxiety she is taking Prozac outside of the hospital . She states that about 4 days ago she developed a cough and congestion. The pt was pacing all night the pt sitting in chair and stated that she is forgetful however was able to answer the questions appropriately Allergies: Coded Allergies: VANCOMYCIN (Verified Allergy, Unknown, red eyes, itchying, 10/10/16) Medication History Scheduled Albuterol Sulfate (Ventolin Hfa), 1 PUFF INH EVERY 6 HOURS Amlodipine Besylate* (Amlodipine Besylate*), 2.5 MG ORAL DAILY, (Reported) Atorvastatin (Lipitor), 40 MG ORAL DAILY, (Reported) Cefuroxime Axetil* (Cefuroxime*), 500 MG PO Q12HR Clopidogrel* (Clopidogrel*), 75 MG ORAL DAILY, (Reported) Dexlansoprazole (Dexilant), 60 MG ORAL QHS, (Reported) Dexlansoprazole (Dexilant), 60 MG ORAL DAILY, (Reported) Fluoxetine Hcl* (Prozac*), 20 MG ORAL DAILY, (Reported) Fluticasone/Salmeterol (Advair 250-50 Diskus), 1 PUFF INH EVERY 12 HOURS Labetalol Hcl* (Labetalol Hcl*), 100 MG IV DAILY, (Reported) Levocetirizine Dihydrochloride (Levocetirizine Dihydrochloride), 5 MG ORAL DAILY , (Reported) Loratadine (Loratadine), 10 MG PO DAILY, (Reported) Montelukast Sodium (Montelukast Sodium), 10 MG ORAL DAILY, (Reported) Montelukast Sodium* (Montelukast Sodium*), 10 MG ORAL DAILY, (Reported) Phenytoin Sodium Extended* (Phenytoin Sodium Extended*), 100 MG ORAL DAILY, ( Reported) Phenytoin Sodium Extended* (Phenytoin Sodium Extended*), 100 MG ORAL BEDTIME, ( Reported) Pregabalin (Lyrica), 50 MG ORAL Q12HR, (Reported) Valsartan (Diovan), 12.5 MG ORAL DAILY, (Reported) Valsartan/Hydrochlorothiazide 160-12.5 (Valsartan-Hctz 160-12.5 Mg Tab), 1 TAB ORAL Q12HR, (Reported) Scheduled PRN Hydroxyzine HCl (Hydroxyzine HCl), 25 MG ORAL Q6H PRN Miscellaneous Medications Isosorbide (Isosorbide), 30 MG MC, (Reported) Prednisone (Prednisone), 40 MG PO, (Reported) Patient History Limited by: medical condition History Provided By: Patient, Medical Record, PMD Healthcare decision maker Resuscitation status Full Code Advanced Directive on File Past Medical/Surgical History Past Medical/Surgical History: (1) Hypoxemia (2) SOB (shortness of breath) (3) Seizure disorder (4) GERD (gastroesophageal reflux disease) (5) Bronchitis (6) Asthma (7) Hemoptysis (8) Hypercholesteremia (9) Acute asthma exacerbation (10) COPD exacerbation (11) CAD (coronary artery disease) (12) Hemorrhagic stroke (13) HTN (hypertension) (14) Acute respiratory failure Review of Systems Psychiatric: Reports: prior hx, anxiety, depressed feelings, emotional problems Physical Exam General Appearance: no apparent distress, alert Neurologic: oriented x 3, responsive, depressed affect Last 24 Hour Vital Signs Date Time Temp Pulse Resp B/P (MAP) Pulse Ox O2 Delivery O2 Flow Rate FiO2 03/22/18 11:52 98.1 86 19 128/67 (87) 96 98.1 03/22/18 09:38 84 18 95 Room Air 21 03/22/18 09:27 84 18 95 Room Air 21 03/22/18 09:23 77 159/79 03/22/18 08:00 Room Air 03/22/18 08:00 98.6 82 19 159/79 (105) 95 98.6 03/22/18 08:00 77 03/22/18 04:00 Room Air 03/22/18 04:00 78 03/22/18 04:00 98.2 96 20 158/75 (102) 93 98.2 03/22/18 00:56 Room Air 03/22/18 00:00 92 03/22/18 00:00 Room Air 03/21/18 23:45 98.1 85 20 140/77 (98) 94 98.1 03/21/18 23:43 97.2 89 19 120/58 96 Room Air 21 97.2 03/21/18 22:31 97.2 89 19 120/58 96 Room Air 21 97.2 03/21/18 21:01 86 18 98 Room Air 21 03/21/18 21:00 86 20 Room Air 21 03/21/18 20:45 89 18 Room Air 03/21/18 20:45 98.1 84 18 188/98 99 Room Air 98.1 03/21/18 20:29 98.1 89 18 188/98 99 Room Air 98.1 Intake and Output 03/21/18 03/22/18 19:00 07:00 Intake Total 110 ml Balance 110 ml Intake Oral 110 ml # Voids 5 Laboratory Tests Test 03/21/18 21:24 03/21/18 22:03 White Blood Count 10.2 K/UL (4.8-10.8) Red Blood Count 4.12 M/UL (4.20-5.40) L Hemoglobin 12.7 G/DL (12.0-16.0) Hematocrit 37.3 % (37.0-47.0) Mean Corpuscular Volume 91 FL (80-99) Mean Corpuscular Hemoglobin 30.9 PG (27.0-31.0) Mean Corpuscular Hemoglobin Concent 34.2 G/DL (32.0-36.0) Red Cell Distribution Width 12.4 % (11.6-14.8) Platelet Count 188 K/UL (150-450) Mean Platelet Volume 6.3 FL (6.5-10.1) L Neutrophils (%) (Auto) 72.5 % (45.0-75.0) Lymphocytes (%) (Auto) 18.2 % (20.0-45.0) L Monocytes (%) (Auto) 6.2 % (1.0-10.0) Eosinophils (%) (Auto) 2.8 % (0.0-3.0) Basophils (%) (Auto) 0.4 % (0.0-2.0) Sodium Level 138 MMOL/L (136-145) Potassium Level 3.1 MMOL/L (3.5-5.1) L Chloride Level 101 MMOL/L (98-107) Carbon Dioxide Level 32 MMOL/L (21-32) Anion Gap 5 mmol/L (5-15) Blood Urea Nitrogen 21 mg/dL (7-18) H Creatinine 0.8 MG/DL (0.55-1.30) Estimat Glomerular Filtration Rate mL/min (>60) Glucose Level 116 MG/DL (74-106) H Calcium Level 8.7 MG/DL (8.5-10.1) Total Bilirubin 0.4 MG/DL (0.2-1.0) Aspartate Amino Transf (AST/SGOT) 15 U/L (15-37) Alanine Aminotransferase (ALT/SGPT) 29 U/L (12-78) Alkaline Phosphatase 92 U/L (46-116) Total Protein 7.6 G/DL (6.4-8.2) Albumin 3.5 G/DL (3.4-5.0) Globulin 4.1 g/dL Albumin/Globulin Ratio 0.9 (1.0-2.7) L Urine Color Pale yellow Urine Appearance Clear Urine pH 5 (4.5-8.0) Urine Specific [place] 1.020 (1.005-1.035) Urine Protein 3+ (NEGATIVE) H Urine Glucose (UA) Negative (NEGATIVE) Urine Ketones Negative (NEGATIVE) Urine Occult Blood 2+ (NEGATIVE) H Urine Nitrite Negative (NEGATIVE) Urine Bilirubin Negative (NEGATIVE) Urine Urobilinogen Normal MG/DL (0.0-1.0) Urine Leukocyte Esterase 1+ (NEGATIVE) H Urine RBC 2-4 /HPF (0 - 2) H Urine WBC 2-4 /HPF (0 - 2) Urine Squamous Epithelial Cells Occasional /LPF Urine Bacteria Few /HPF (NONE) Microbiology Date/Time Source Procedure Growth Status 03/22/18 00:00 Rectum Received Height (Feet): 5 Height (Inches): 1.00 Weight (Pounds): 152 Medications Current Medications Medications (Trade) Dose Ordered Sig/[place] Route PRN Reason Start Time Stop Time Status Last Admin Dose Admin Albuterol/ Ipratropium (Albuterol/ Ipratropium) 3 ml Q4H PRN HHN dyspnea 03/22/18 07:30 03/27/18 07:29 03/22/18 09:27 Amlodipine Besylate (Norvasc) 2.5 mg DAILY ORAL 03/22/18 09:00 04/21/18 08:59 03/22/18 09:23 Cetirizine HCl (ZyrTEC) 10 mg DAILY ORAL 03/23/18 09:00 04/22/18 08:59 Cetirizine HCl (ZyrTEC) 10 mg ONCE ORAL 03/22/18 12:00 03/22/18 13:00 03/22/18 12:03 Clopidogrel Bisulfate (Plavix) 75 mg DAILY ORAL 03/22/18 09:00 04/21/18 08:59 03/22/18 09:23 Dextrose (Dextrose 50%) 25 ml STAT PRN IV Hypoglycemia 03/22/18 07:30 04/21/18 07:29 Dextrose (Dextrose 50%) 50 ml STAT PRN IV Hypoglycemia 03/22/18 07:45 04/21/18 07:44 Docusate Sodium (Colace) 100 mg THREE TIMES A DAY ORAL 03/22/18 13:00 04/21/18 12:59 Heparin Sodium (Porcine) (Heparin 5000 units/ml) 5,000 units EVERY 12 HOURS SUBQ 03/22/18 09:00 04/21/18 08:59 03/22/18 09:24 Lactulose (Cephulac) 30 gm THREE TIMES A DAY ORAL 03/22/18 13:00 04/21/18 12:59 Lorazepam (Ativan 2mg/ml 1ml) 0.5 mg Q4H PRN IV For Anxiety 03/22/18 07:30 03/29/18 07:29 Methylprednisolone Sodium Succinate (Solu-MEDROL) 60 mg EVERY 6 HOURS IV 03/22/18 12:00 04/21/18 11:59 03/22/18 12:03 Mineral Oil (Fleet's Mineral Oil Enema) 133 ml EVERY OTHER DAY RECTAL 03/24/18 09:00 04/23/18 08:59 Nitroglycerin (Ntg) 0.4 mg Q5M X 3 DOSES PRN SL Prn Chest Pain 03/22/18 07:30 04/21/18 07:29 Ondansetron HCl (Zofran) 4 mg Q6H PRN IVP Nausea & Vomiting 03/22/18 07:30 04/21/18 07:29 Phenytoin (Dilantin) 100 mg BEDTIME ORAL 03/22/18 21:00 04/21/18 20:59 Piperacillin Sod/ Tazobactam Sod 3.375 gm/Dextrose 110 ml @ 27.5 mls/hr EVERY 8 HOURS IVPB 03/22/18 14:00 03/29/18 13:59 Polyethylene Glycol (Miralax) 17 gm BEDTIME ORAL 03/22/18 21:00 04/21/18 20:59 Pregabalin (Lyrica) 50 mg Q12HR ORAL 03/22/18 09:00 04/21/18 08:59 03/22/18 09:23 Promethazine HCl/ Codeine (Phenergan with Codeine) 5 ml Q6H PRN ORAL cough 03/22/18 07:30 04/21/18 07:29 03/22/18 09:22 Sennosides (Senokot) 1 tab DAILY ORAL 03/23/18 09:00 04/22/18 08:59 Sennosides (Senokot) 1 tab ONCE ORAL 03/22/18 12:00 03/22/18 13:00 03/22/18 12:03 Temazepam (Restoril) 15 mg HSPRN PRN ORAL Insomnia 03/22/18 07:30 03/29/18 07:29 Theophylline (Fabrice-Dur) 100 mg EVERY 12 HOURS ORAL 03/22/18 09:00 04/21/18 08:59 03/22/18 09:23 Assessment/Plan Assessment/Plan Anxiety d/o MDD prozac 20mg qam ativan prn Sherin Holm MD Mar 22, 2018 12:27
[2018-03-22] MEDS: Docusate 100mg cap ORAL SCH ×2 (12:57→17:49)
[2018-03-22] MEDS: Lactulose 20gm/30ml UDC ORAL SCH ×2 (12:58→17:50)
[2018-03-22] MEDS: Piperacillin/Tazobactam 3.375 GM in D5W 110 ML IVPB SCH ×2 (13:59→21:58)
[2018-03-22 16:00] VITALS: BP 147/75
--- NOTE | 2018-03-22 16:11 | History & Physical ---
History and Physical History & Physicial Dictated for Int Med-Dr Garcia no. [id number]. Hank Toure MD Mar 22, 2018 16:11
[2018-03-22] MEDS: Albuterol/Ipratropium 3ml neb HHN SCH ×2 (19:37→23:12)
[2018-03-22 20:00] VITALS: BP 165/88
--- NOTE | 2018-03-22 20:15 | History and Physical Report ---
DATE OF ADMISSION: 03/21/2018 CHIEF COMPLAINT: The patient is an 83-year-old, female, with history of asthma who presents with chief complaint of shortness of breath. HISTORY OF PRESENT ILLNESS: Began in 02/2018. The patient was admitted to [facility] from 02/03/2018 through 02/07/2018. Please see history and physical and discharge summary dictated at that time. The patient presented to [place] emergency room complaining of a four-day history of cough and congestion. The patient denies fevers or chills. The patient has a history of asthma. The patient is admitted for cough and congestion and asthma exacerbation. PAST MEDICAL HISTORY: Significant for 1. Asthma. 2. History of hemorrhagic cerebrovascular accident. 3. Hypertension. 4. Hypercholesterolemia. 5. Gastroesophageal reflux disease. 6. History of hemorrhoids. 7. Seizure disorder. 8. Coronary artery disease, status post stent placement in 11/2017. PAST SURGICAL HISTORY: Significant for 1. Appendectomy. 2. Cardiac catheterization in 11/2017 with one stent placed. CURRENT MEDICATIONS: 1. Albuterol metered-dose inhaler two puffs p.o. q.i.d. p.r.n. 2. Amlodipine 2.5 mg p.o. daily. 3. Atorvastatin 40 mg p.o. daily. 4. Clopidogrel 75 mg p.o. daily. 5. Dexilant 60 mg p.o. daily. 6. Prozac 20 mg p.o. daily. 7. Advair 250/50 one puff p.o. twice daily. 8. Atarax 25 mg p.o. q.6 h. p.r.n. itching. 9. Labetalol 100 mg. 10. Zyrtec 5 mg p.o. daily. 11. Singulair 10 mg p.o. daily. 12. Dilantin 100 mg p.o. twice daily. 13. Prednisone taper. 14. Lyrica 50 mg p.o. twice daily. 15. Valsartan 80 mg p.o. daily. 16. Hydrochlorothiazide 12.5 mg p.o. daily. ALLERGIES: Vancomycin. SOCIAL HISTORY: The patient is single. The patient lives alone. The patient denies tobacco or alcohol use. REVIEW OF SYSTEMS: CONSTITUTIONAL: The patient denies weight loss or weight gain. The patient denies fevers or chills. HEENT: The patient denies ear or throat pain. The patient denies headache. CARDIOVASCULAR: The patient denies palpitations or chest pain. CHEST: The patient complains of shortness of breath as above. The patient denies wheezes. ABDOMEN: The patient denies nausea, vomiting, diarrhea, or constipation. GENITOURINARY: The patient denies dysuria or increased frequency of urination. NEUROMUSCULAR: The patient denies seizures or generalized weakness. PHYSICAL EXAMINATION: GENERAL: The patient is a well-developed and well-nourished female, in no apparent distress. VITAL SIGNS: Temperature 98.6 degrees, respirations 19, pulse 82, and blood pressure 159/79. HEENT: Eyes, pupils equal and responsive to light and accommodation. Extraocular movements are intact. NECK: Supple without lymphadenopathy. CHEST: Lungs are clear to auscultation bilaterally without wheezes or rales. CARDIOVASCULAR: Regular rhythm and rate. S1 and S2 are normal without murmurs, rubs, or gallops. ABDOMEN: Soft, nontender, and nondistended. Positive bowel sounds. No evidence of hepatosplenomegaly. Currently, no rebound or guarding noted. EXTREMITIES: Negative for clubbing, cyanosis, or edema. RECTAL: Refused. GENITAL: Refused. NEUROLOGIC: Cranial nerves II through XII are grossly intact without focal deficits. Motor strength is 5/5 bilaterally. Deep tendon reflexes are 2+ plantar. LABORATORY AND DIAGNOSTIC DATA: WBC 10.3, hemoglobin 12.7, hematocrit 37.3 and platelets 188,000. Sodium 138, potassium 3.1, chloride 101, CO2 32, BUN 29, creatinine 0.8 and glucose 116. Chest x-ray was reported as no acute disease. ASSESSMENT: This is an 83-year-old female. 1. Dyspnea. 2. Asthma, acute exacerbation. 3. Hypertension. 4. Coronary artery disease. 5. Cerebrovascular disease. 6. Hypercholesterolemia. 7. Gastroesophageal reflux disease. 8. Seizure disorder. TREATMENT: 1. Dyspnea/asthma exacerbation. A Pulmonary consultation has been obtained with Dr. Luis A Juares. The patient is currently receiving DuoNeb scheduled every four hours. The patient is currently on intravenous Solu-Medrol. We will follow recommendations of Pulmonary, Dr. Luis A Juares. 2. Hypertension. Continue amlodipine as above. 3. History of coronary artery disease, status post stent placement. 4. Cerebrovascular disease. 5. Hypercholesterolemia. Continue Lipitor as above. 6. Gastroesophageal reflux disease. 7. Seizure disorder. Continue Dilantin as above. Hank Toure M.D. DR: NICOLE JOB#: [id number] CC:
[2018-03-22] MEDS ORDERED: Miralax 17gm pkt ORAL SCH (21:00)
[2018-03-22] MEDS ORDERED: Phenytoin 100mg cap ORAL SCH (21:00)
[2018-03-23] VITALS: BP 149/77
[2018-03-23] MEDS: Albuterol/Ipratropium 3ml neb HHN SCH ×7 (03:00→22:32)
[2018-03-23 04:00] VITALS: BP 147/102
[2018-03-23] MEDS: Promethazine/Codeine 5ml UD ORAL PRN ×3 (06:06→22:50)
[2018-03-23] MEDS: Solu-MEDROL 125mg Inj IV SCH ×4 (06:06→23:42)
[2018-03-23] MEDS: Piperacillin/Tazobactam 3.375 GM in D5W 110 ML IVPB SCH ×3 (06:06→22:33)
[2018-03-23 08:00] VITALS: BP 152/89
[2018-03-23] MEDS: Lyrica 50mg cap ORAL SCH ×2 (08:57→22:29)
[2018-03-23] MEDS: Theophylline ER 100mg ORAL SCH ×2 (08:58→22:27)
[2018-03-23] MEDS: Docusate 100mg cap ORAL SCH ×3 (08:58→17:04)
[2018-03-23] MEDS: Heparin 5000 units/ml inj SUBQ SCH ×2 (08:59→22:32)
[2018-03-23] MEDS: Lactulose 20gm/30ml UDC ORAL SCH ×3 (08:59→17:04)
[2018-03-23] MEDS ORDERED: Sennosides 8.6mg ORAL SCH (09:00)
--- NOTE | 2018-03-23 10:29 | Pulmonology Progress Note ---
Assessment/Plan Problems: (1) Acute respiratory failure (2) Acute asthma exacerbation (3) CAD (coronary artery disease) (4) HTN (hypertension) Assessment/Plan add lidocain inhalation for persistent cough continue steroids check sputum monitor respiratory rate check cxr Subjective ROS Limited/Unobtainable: No Constitutional: Reports: no symptoms HEENT: Repors: no symptoms Respiratory: Reports: no symptoms Cardiovascular: Reports: no symptoms Allergies: Coded Allergies: VANCOMYCIN (Verified Allergy, Unknown, red eyes, itchying, 10/10/16) Uncoded Allergies: Canned Food (Allergy, Unknown, 03/22/18) Nausea/Vomitting/Indigestion Objective Last 24 Hour Vital Signs Date Time Temp Pulse Resp B/P (MAP) Pulse Ox O2 Delivery O2 Flow Rate FiO2 03/23/18 08:56 89 152/89 03/23/18 07:17 86 20 99 Room Air 21 03/23/18 07:06 84 20 96 Room Air 21 03/23/18 04:00 Room Air 03/23/18 04:00 98.3 80 20 147/102 (117) 95 98.3 03/23/18 03:44 78 03/23/18 03:30 89 20 97 Room Air 21 03/23/18 03:30 88 18 94 Room Air 21 03/23/18 00:00 97.8 74 20 149/77 (101) 95 97.8 03/23/18 00:00 Room Air 03/22/18 23:53 90 03/22/18 23:16 91 18 98 Room Air 21 03/22/18 23:15 85 18 95 Room Air 21 03/22/18 20:00 97.6 80 20 165/88 (113) 97 97.6 03/22/18 20:00 Room Air 03/22/18 19:52 88 03/22/18 19:38 87 18 97 Room Air 21 03/22/18 19:38 89 18 98 Room Air 21 03/22/18 16:17 83 03/22/18 16:11 86 18 96 Room Air 21 03/22/18 16:06 86 18 96 Room Air 21 03/22/18 16:00 Room Air 03/22/18 16:00 98.1 89 18 147/75 (99) 96 98.1 03/22/18 12:00 80 7/19/18 12:00 Room Air 03/22/18 11:52 98.1 86 19 128/67 (87) 96 98.1 Intake and Output 03/22/18 03/23/18 19:00 07:00 Intake Total 660.0 ml 310.0 ml Balance 660.0 ml 310.0 ml Intake Oral 550 ml 200 ml IV Total 110.0 ml 110.0 ml # Voids 6 2 # Bowel Movements 2 General Appearance: WD/WN HEENT: normocephalic, atraumatic Respiratory/Chest: chest wall non-tender, lungs clear Breasts: no masses Cardiovascular: normal peripheral pulses Abdomen: normal bowel sounds, soft, non tender Genitourinary: normal external genitalia Extremities: no cyanosis Skin: no rash 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 Lymphatic: no neck adenopathy Microbiology Date/Time Source Procedure Growth Status 03/21/18 21:24 Blood Blood Culture - Preliminary NO GROWTH AFTER 24 HOURS Resulted 03/21/18 21:18 Blood Blood Culture - Preliminary NO GROWTH AFTER 24 HOURS Resulted 03/22/18 00:00 Rectum Received Current Medications Medications (Trade) Dose Ordered Sig/Mecca Route PRN Reason Start Time Stop Time Status Last Admin Dose Admin Albuterol/ Ipratropium (Albuterol/ Ipratropium) 3 ml Q4HRT HHN 03/22/18 19:00 03/27/18 18:59 03/23/18 07:06 Amlodipine Besylate (Norvasc) 2.5 mg DAILY ORAL 03/22/18 09:00 04/21/18 08:59 03/23/18 08:56 Cetirizine HCl (ZyrTEC) 10 mg DAILY ORAL 03/23/18 09:00 04/22/18 08:59 03/23/18 08:58 Clopidogrel Bisulfate (Plavix) 75 mg DAILY ORAL 03/22/18 09:00 04/21/18 08:59 03/23/18 08:56 Dextrose (Dextrose 50%) 25 ml STAT PRN IV Hypoglycemia 03/22/18 07:30 04/21/18 07:29 Dextrose (Dextrose 50%) 50 ml STAT PRN IV Hypoglycemia 03/22/18 07:45 04/21/18 07:44 Docusate Sodium (Colace) 100 mg THREE TIMES A DAY ORAL 03/22/18 13:00 04/21/18 12:59 03/23/18 08:58 Fluoxetine HCl (PROzac) 20 mg DAILY ORAL 03/22/18 12:30 04/21/18 12:29 03/23/18 08:57 Heparin Sodium (Porcine) (Heparin 5000 units/ml) 5,000 units EVERY 12 HOURS SUBQ 03/22/18 09:00 04/21/18 08:59 03/23/18 08:59 Lactulose (Cephulac) 30 gm THREE TIMES A DAY ORAL 03/22/18 13:00 04/21/18 12:59 03/23/18 08:59 Lidocaine (Xylocaine 1% MPF 5ml) 10 ml EVERY 4 HOURS PRN HHN cough 03/23/18 10:30 04/22/18 10:29 UNV Lorazepam (Ativan 2mg/ml 1ml) 0.5 mg Q4H PRN IV For Anxiety 03/22/18 07:30 03/29/18 07:29 Methylprednisolone Sodium Succinate (Solu-MEDROL) 60 mg EVERY 6 HOURS IV 03/22/18 12:00 04/21/18 11:59 03/23/18 06:06 Mineral Oil (Fleet's Mineral Oil Enema) 133 ml EVERY OTHER DAY RECTAL 03/24/18 09:00 04/23/18 08:59 Nitroglycerin (Ntg) 0.4 mg Q5M X 3 DOSES PRN SL Prn Chest Pain 03/22/18 07:30 04/21/18 07:29 Ondansetron HCl (Zofran) 4 mg Q6H PRN IVP Nausea & Vomiting 03/22/18 07:30 04/21/18 07:29 Phenytoin (Dilantin) 100 mg BEDTIME ORAL 03/22/18 21:00 04/21/18 20:59 03/22/18 20:50 Piperacillin Sod/ Tazobactam Sod 3.375 gm/Dextrose 110 ml @ 27.5 mls/hr EVERY 8 HOURS IVPB 03/22/18 14:00 03/29/18 13:59 03/23/18 06:06 Polyethylene Glycol (Miralax) 17 gm BEDTIME ORAL 03/22/18 21:00 04/21/18 20:59 03/22/18 20:52 Pregabalin (Lyrica) 50 mg Q12HR ORAL 03/22/18 09:00 04/21/18 08:59 03/23/18 08:57 Promethazine HCl/ Codeine (Phenergan with Codeine) 5 ml Q6H PRN ORAL cough 03/22/18 07:30 04/21/18 07:29 03/23/18 06:06 Sennosides (Senokot) 1 tab DAILY ORAL 03/23/18 09:00 04/22/18 08:59 03/23/18 08:56 Temazepam (Restoril) 15 mg HSPRN PRN ORAL Insomnia 03/22/18 07:30 03/29/18 07:29 Theophylline (Fabrice-Dur) 100 mg EVERY 12 HOURS ORAL 03/22/18 09:00 04/21/18 08:59 03/23/18 08:58 Luis A Juares MD Mar 23, 2018 10:29
[2018-03-23 12:13] VITALS: BP 151/84
[2018-03-23] MEDS ORDERED: Lidocaine 1% MPF 10mg/ml 5ml HHN PRN ×2 (13:00→14:00)
--- NOTE | 2018-03-23 13:01 | General Progress Note ---
Assessment/Plan Status: stable Assessment/Plan Anxiety d/o MDD prozac 20mg qam ativan prn Subjective Date patient seen: Mar 23, 2018 Neurologic/Psychiatric: Reports: anxiety, depressed, emotional problems Allergies: Coded Allergies: VANCOMYCIN (Verified Allergy, Unknown, red eyes, itchying, 10/10/16) Uncoded Allergies: Canned Food (Allergy, Unknown, 03/22/18) Nausea/Vomitting/Indigestion Objective Last 24 Hour Vital Signs Date Time Temp Pulse Resp B/P (MAP) Pulse Ox O2 Delivery O2 Flow Rate FiO2 03/23/18 12:13 98.3 84 20 151/84 (106) 95 98.3 03/23/18 12:00 Room Air 03/23/18 11:22 88 18 99 Room Air 21 03/23/18 11:12 86 20 92 Room Air 21 03/23/18 08:56 89 152/89 03/23/18 08:00 98.2 89 20 152/89 (110) 95 98.2 03/23/18 08:00 84 03/23/18 08:00 Room Air 03/23/18 07:17 86 20 99 Room Air 21 03/23/18 07:06 84 20 96 Room Air 21 03/23/18 04:00 Room Air 03/23/18 04:00 98.3 80 20 147/102 (117) 95 98.3 03/23/18 03:44 78 03/23/18 03:30 89 20 97 Room Air 21 03/23/18 03:30 88 18 94 Room Air 21 03/23/18 00:00 97.8 74 20 149/77 (101) 95 97.8 03/23/18 00:00 Room Air 03/22/18 23:53 90 03/22/18 23:16 91 18 98 Room Air 21 03/22/18 23:15 85 18 95 Room Air 21 03/22/18 20:00 97.6 80 20 165/88 (113) 97 97.6 03/22/18 20:00 Room Air 03/22/18 19:52 88 03/22/18 19:38 87 18 97 Room Air 21 03/22/18 19:38 89 18 98 Room Air 21 03/22/18 16:17 83 03/22/18 16:11 86 18 96 Room Air 21 03/22/18 16:06 86 18 96 Room Air 21 03/22/18 16:00 Room Air 03/22/18 16:00 98.1 89 18 147/75 (99) 96 98.1 Intake and Output 03/22/18 03/23/18 19:00 07:00 Intake Total 660.0 ml 310.0 ml Balance 660.0 ml 310.0 ml Intake Oral 550 ml 200 ml IV Total 110.0 ml 110.0 ml # Voids 6 2 # Bowel Movements 2 Height (Feet): 5 Height (Inches): 1.00 Weight (Pounds): 152 General Appearance: no apparent distress, alert Neurologic: oriented x 3, responsive, depressed affect Sherin Holm MD Mar 23, 2018 13:01
[2018-03-23] MEDS ORDERED: LORazepam Inj 2mg/ml 1ml IV PRN (14:00)
[2018-03-23] MEDS ORDERED: Nitroglycerin Subl 0.4mg tab SL PRN (14:00)
--- NOTE | 2018-03-23 14:41 | Diagnostic Imaging Report ---
Indication: Cough Technique: One view of the chest Comparison: 03/21/2018 Findings: Normal heart size. There is retrocardiac hiatal hernia again demonstrated. The lungs and pleural spaces are clear. There are degenerative changes of the thoracic spine. There is a calcified granuloma in the left lung apex. There is no significant interim change Impression: No acute process. Findings as noted
[2018-03-23 16:00] VITALS: BP 177/89
--- NOTE | 2018-03-23 16:32 | Internal Med Progress Note ---
Subjective Date of Service: Mar 23, 2018 Physician Name Hank Toure Attending Physician Shlomo Garcia MD Current Medications Medications (Trade) Dose Ordered Sig/Mecca Route PRN Reason Start Time Stop Time Status Last Admin Dose Admin Albuterol/ Ipratropium (Albuterol/ Ipratropium) 3 ml Q4HRT HHN 03/23/18 15:00 03/27/18 18:59 Amlodipine Besylate (Norvasc) 2.5 mg DAILY ORAL 03/24/18 09:00 04/21/18 08:59 Cetirizine HCl (ZyrTEC) 10 mg DAILY ORAL 03/24/18 09:00 04/22/18 08:59 Clopidogrel Bisulfate (Plavix) 75 mg DAILY ORAL 03/24/18 09:00 04/21/18 08:59 Dextrose (Dextrose 50%) 25 ml STAT PRN IV Hypoglycemia 03/23/18 14:00 04/22/18 13:59 Dextrose (Dextrose 50%) 50 ml STAT PRN IV Hypoglycemia 03/23/18 14:00 04/22/18 13:59 Docusate Sodium (Colace) 100 mg THREE TIMES A DAY ORAL 03/23/18 14:00 04/21/18 13:59 03/23/18 14:52 Fluoxetine HCl (PROzac) 20 mg DAILY ORAL 03/24/18 09:00 04/21/18 12:29 Heparin Sodium (Porcine) (Heparin 5000 units/ml) 5,000 units EVERY 12 HOURS SUBQ 03/23/18 21:00 04/21/18 08:59 Lactulose (Cephulac) 30 gm THREE TIMES A DAY ORAL 03/23/18 14:00 04/21/18 13:59 Lidocaine (Xylocaine 1% MPF 5ml) 10 ml Q4H PRN HHN cough 03/23/18 14:00 04/22/18 13:59 Lorazepam (Ativan 2mg/ml 1ml) 0.5 mg Q4H PRN IV For Anxiety 03/23/18 14:00 03/29/18 13:59 Methylprednisolone Sodium Succinate (Solu-MEDROL) 60 mg EVERY 6 HOURS IV 03/23/18 18:00 04/21/18 11:59 Mineral Oil (Fleet's Mineral Oil Enema) 133 ml EVERY OTHER DAY RECTAL 03/24/18 09:00 04/23/18 08:59 Nitroglycerin (Ntg) 0.4 mg Q5M X 3 DOSES PRN SL Prn Chest Pain 03/23/18 14:00 04/21/18 13:59 Ondansetron HCl (Zofran) 4 mg Q6H PRN IVP Nausea & Vomiting 03/23/18 14:00 04/21/18 13:59 Phenytoin (Dilantin) 100 mg BEDTIME ORAL 03/23/18 21:00 04/21/18 20:59 Piperacillin Sod/ Tazobactam Sod 3.375 gm/Dextrose 110 ml @ 27.5 mls/hr EVERY 8 HOURS IVPB 03/23/18 14:00 03/29/18 13:59 03/23/18 14:55 Polyethylene Glycol (Miralax) 17 gm BEDTIME ORAL 03/23/18 21:00 04/21/18 20:59 Pregabalin (Lyrica) 50 mg Q12HR ORAL 03/23/18 21:00 04/21/18 08:59 Promethazine HCl/ Codeine (Phenergan with Codeine) 5 ml Q6H PRN ORAL cough 03/23/18 14:00 04/21/18 13:59 03/23/18 15:05 Sennosides (Senokot) 1 tab DAILY ORAL 03/24/18 09:00 04/22/18 08:59 Temazepam (Restoril) 15 mg HSPRN PRN ORAL Insomnia 03/24/18 21:00 03/29/18 20:59 Theophylline (Fabrice-Dur) 100 mg EVERY 12 HOURS ORAL 03/23/18 21:00 04/21/18 08:59 Allergies: Coded Allergies: VANCOMYCIN (Verified Allergy, Unknown, red eyes, itchying, 10/10/16) Uncoded Allergies: Canned Food (Allergy, Unknown, 03/22/18) Nausea/Vomitting/Indigestion ROS Limited/Unobtainable: No Constitutional: Reports: no symptoms HEENT: Reports: no symptoms Cardiovascular: Reports: no symptoms Respiratory: Reports: shortness of breath Gastrointestinal/Abdominal: Reports: no symptoms Genitourinary: Reports: no symptoms Neurologic/Psychiatric: Reports: no symptoms Subjective 83 YO F admitted with asthma exacerbation. Cover for Int Med-Dr Garcia Objective Last Vital Signs Date Time Temp Pulse Resp B/P (MAP) Pulse Ox O2 Delivery O2 Flow Rate FiO2 03/23/18 12:13 98.3 84 20 151/84 (106) 95 98.3 03/23/18 12:00 Room Air 03/23/18 11:22 21 General Appearance: WD/WN, no apparent distress, alert EENT: PERRL/EOMI, normal ENT inspection Neck: non-tender, normal alignment, supple, normal inspection Cardiovascular: normal peripheral pulses, normal rate, regular rhythm, no gallop/murmur, no JVD Respiratory/Chest: chest wall non-tender, respiratory distress, crackles/rales , rhonchi - bilaterally, expiratory wheezing Abdomen: normal bowel sounds, non tender, soft, no organomegaly, no mass Extremities: normal range of motion 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, no motor/sensory deficits Skin: normal pigmentation, warm/dry Microbiology Date/Time Source Procedure Growth Status 03/21/18 21:24 Blood Blood Culture - Preliminary NO GROWTH AFTER 24 HOURS Resulted 03/21/18 21:18 Blood Blood Culture - Preliminary NO GROWTH AFTER 24 HOURS Resulted 03/22/18 00:00 Rectum Received Intake and Output 03/22/18 03/23/18 19:00 07:00 Intake Total 660.0 ml 310.0 ml Balance 660.0 ml 310.0 ml Intake Oral 550 ml 200 ml IV Total 110.0 ml 110.0 ml # Voids 6 2 # Bowel Movements 2 Assessment/Plan Problem List: (1) Cerebral vascular disease (2) Acute asthma exacerbation (3) HTN (hypertension) Assessment & Plan: Uncontrolled. (4) CAD (coronary artery disease) (5) SOB (shortness of breath) Assessment & Plan: Asthma exacerbation-See pulmonary note. (6) GERD (gastroesophageal reflux disease) (7) Hypercholesteremia (8) Bronchitis Assessment & Plan: Continue zosyn. (9) Seizure Assessment & Plan: Continue Dilantin. Status: progressing Hank Toure MD Mar 23, 2018 16:32
--- NOTE | 2018-03-23 16:58 | Cardiology Report ---
APPROVED REPORT EKG Measurement Heart [id number] Normal sinus rhythm Normal ECG
[2018-03-23 20:00] VITALS: BP 149/87
[2018-03-23] MEDS: Miralax 17gm pkt ORAL SCH (22:29)
[2018-03-23] MEDS: Phenytoin 100mg cap ORAL SCH (22:29)
[2018-03-24] VITALS (7 sets, daily range): BP systolic 146–180; BP diastolic 76–98
[2018-03-24] MEDS: Albuterol/Ipratropium 3ml neb HHN SCH ×5 (03:25→19:17)
[2018-03-24] MEDS: Solu-MEDROL 125mg Inj IV SCH ×4 (06:03→23:28)
[2018-03-24] MEDS: Piperacillin/Tazobactam 3.375 GM in D5W 110 ML IVPB SCH ×3 (06:04→21:38)
[2018-03-24] MEDS: Docusate 100mg cap ORAL SCH ×3 (08:21→18:05)
[2018-03-24] MEDS: Heparin 5000 units/ml inj SUBQ SCH ×2 (08:23→20:43)
[2018-03-24] MEDS: Sennosides 8.6mg ORAL SCH (08:27)
[2018-03-24] MEDS: Theophylline ER 100mg ORAL SCH ×2 (08:28→20:39)
[2018-03-24] MEDS: Lyrica 50mg cap ORAL SCH ×2 (08:35→20:39)
[2018-03-24] MEDS: Fleet's Mineral Oil Enema RECTAL SCH (08:37)
[2018-03-24] MEDS: Lactulose 20gm/30ml UDC ORAL SCH ×3 (08:40→17:01)
[2018-03-24] MEDS ORDERED: Fleet's Mineral Oil Enema RECTAL SCH (09:00)
[2018-03-24] MEDS: Promethazine/Codeine 5ml UD ORAL PRN ×2 (12:35→20:38)
--- NOTE | 2018-03-24 13:26 | Internal Med Progress Note ---
Subjective Date of Service: Mar 24, 2018 Physician Name Hank Toure Attending Physician Shlomo Garcia MD Current Medications Medications (Trade) Dose Ordered Sig/Mecca Route PRN Reason Start Time Stop Time Status Last Admin Dose Admin Albuterol/ Ipratropium (Albuterol/ Ipratropium) 3 ml Q4HRT HHN 03/23/18 15:00 03/27/18 18:59 03/24/18 10:58 Amlodipine Besylate (Norvasc) 2.5 mg DAILY ORAL 03/24/18 09:00 04/21/18 08:59 03/24/18 08:35 Cetirizine HCl (ZyrTEC) 10 mg DAILY ORAL 03/24/18 09:00 04/22/18 08:59 03/24/18 08:37 Clonidine HCl (Catapres Tab) 0.1 mg Q6H PRN ORAL For High Blood Pressure 03/23/18 16:58 04/22/18 16:57 03/23/18 17:08 Clopidogrel Bisulfate (Plavix) 75 mg DAILY ORAL 03/24/18 09:00 04/21/18 08:59 03/24/18 08:22 Dextrose (Dextrose 50%) 25 ml STAT PRN IV Hypoglycemia 03/23/18 14:00 04/22/18 13:59 Dextrose (Dextrose 50%) 50 ml STAT PRN IV Hypoglycemia 03/23/18 14:00 04/22/18 13:59 Docusate Sodium (Colace) 100 mg THREE TIMES A DAY ORAL 03/23/18 14:00 04/21/18 13:59 03/24/18 12:35 Fluoxetine HCl (PROzac) 20 mg DAILY ORAL 03/24/18 09:00 04/21/18 12:29 03/24/18 08:27 Heparin Sodium (Porcine) (Heparin 5000 units/ml) 5,000 units EVERY 12 HOURS SUBQ 03/23/18 21:00 04/21/18 08:59 03/24/18 08:23 Lactulose (Cephulac) 30 gm THREE TIMES A DAY ORAL 03/23/18 14:00 04/21/18 13:59 Lidocaine (Xylocaine 1% MPF 5ml) 10 ml Q4H PRN HHN cough 03/23/18 14:00 04/22/18 13:59 Lorazepam (Ativan 2mg/ml 1ml) 0.5 mg Q4H PRN IV For Anxiety 03/23/18 14:00 03/29/18 13:59 Methylprednisolone Sodium Succinate (Solu-MEDROL) 60 mg EVERY 6 HOURS IV 03/23/18 18:00 04/21/18 11:59 03/24/18 12:35 Mineral Oil (Fleet's Mineral Oil Enema) 133 ml EVERY OTHER DAY RECTAL 03/24/18 09:00 04/23/18 08:59 Nitroglycerin (Ntg) 0.4 mg Q5M X 3 DOSES PRN SL Prn Chest Pain 03/23/18 14:00 04/21/18 13:59 Ondansetron HCl (Zofran) 4 mg Q6H PRN IVP Nausea & Vomiting 03/23/18 14:00 04/21/18 13:59 Phenytoin (Dilantin) 100 mg BEDTIME ORAL 03/23/18 21:00 04/21/18 20:59 03/23/18 22:29 Piperacillin Sod/ Tazobactam Sod 3.375 gm/Dextrose 110 ml @ 27.5 mls/hr EVERY 8 HOURS IVPB 03/23/18 14:00 03/29/18 13:59 03/24/18 13:05 Polyethylene Glycol (Miralax) 17 gm BEDTIME ORAL 03/23/18 21:00 04/21/18 20:59 03/23/18 22:29 Pregabalin (Lyrica) 50 mg Q12HR ORAL 03/23/18 21:00 04/21/18 08:59 03/24/18 08:35 Promethazine HCl/ Codeine (Phenergan with Codeine) 5 ml Q6H PRN ORAL cough 03/23/18 14:00 04/21/18 13:59 03/24/18 12:35 Sennosides (Senokot) 1 tab DAILY ORAL 03/24/18 09:00 04/22/18 08:59 03/24/18 08:27 Temazepam (Restoril) 15 mg HSPRN PRN ORAL Insomnia 03/24/18 21:00 03/29/18 20:59 Theophylline (Fabrice-Dur) 100 mg EVERY 12 HOURS ORAL 03/23/18 21:00 04/21/18 08:59 03/24/18 08:28 Allergies: Coded Allergies: VANCOMYCIN (Verified Allergy, Unknown, red eyes, itchying, 10/10/16) Uncoded Allergies: Canned Food (Allergy, Unknown, 03/22/18) Nausea/Vomitting/Indigestion ROS Limited/Unobtainable: No Constitutional: Reports: no symptoms HEENT: Reports: no symptoms Cardiovascular: Reports: no symptoms Respiratory: Reports: cough, shortness of breath Gastrointestinal/Abdominal: Reports: no symptoms Genitourinary: Reports: no symptoms Neurologic/Psychiatric: Reports: no symptoms Subjective 83 YO F admitted with asthma exacerbation. Cover for Int Med-Dr Garcia Objective Last Vital Signs Date Time Temp Pulse Resp B/P (MAP) Pulse Ox O2 Delivery O2 Flow Rate FiO2 03/24/18 11:42 98.4 20 146/98 (114) 92 98.4 03/24/18 11:05 80 Room Air 21 Microbiology Date/Time Source Procedure Growth Status 03/21/18 21:24 Blood Blood Culture - Preliminary NO GROWTH AFTER 48 HOURS Resulted 03/21/18 21:18 Blood Blood Culture - Preliminary NO GROWTH AFTER 48 HOURS Resulted 03/22/18 08:15 Sputum Induced Gram Stain - Final Resulted 03/22/18 08:15 Sputum Induced Sputum Culture - Preliminary NORMAL UPPER RESPIRATORY SRUTHI AT 24 ... Resulted 03/22/18 00:00 Nasal Nares MRSA Culture - Final NO METHICILLIN RESISTANT STAPH AUREUS... Complete 03/22/18 10:46 Rectum - Final NO CARBAPENEM-RESISTANT ENTEROBACTERI... Complete 03/22/18 00:00 Rectum VRE Culture - Final NO VANCOMYCIN RESISTANT ENTEROCOCCUS ... Complete Intake and Output 03/23/18 03/24/18 19:00 07:00 Intake Total 915.0 ml Balance 915.0 ml Intake Oral 860 ml IV Total 55.0 ml # Voids 3 # Bowel Movements 1 Objective General Appearance: WD/WN, no apparent distress, alert EENT: PERRL/EOMI, normal ENT inspection Neck: non-tender, normal alignment, supple, normal inspection Cardiovascular: normal peripheral pulses, normal rate, regular rhythm, no gallop/murmur, no JVD Respiratory/Chest: chest wall non-tender, respiratory distress, crackles/rales , rhonchi - bilaterally, expiratory wheezing Abdomen: normal bowel sounds, non tender, soft, no organomegaly, no mass Extremities: normal range of motion 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 (6) GERD (gastroesophageal reflux disease) (7) Hypercholesteremia (8) Bronchitis Assessment & Plan: Continue zosyn. (9) Seizure Assessment & Plan: Continue Dilantin. Status: not improved Hank Toure MD Mar 24, 2018 13:26
--- NOTE | 2018-03-24 18:23 | Pulmonology Progress Note ---
Assessment/Plan Problems: (1) Acute respiratory failure (2) Acute asthma exacerbation (3) CAD (coronary artery disease) (4) HTN (hypertension) Assessment/Plan doing better on lidocain inhalation for persistent cough continue steroids check sputum monitor respiratory rate Subjective ROS Limited/Unobtainable: No Constitutional: Reports: no symptoms HEENT: Repors: no symptoms Respiratory: Reports: no symptoms Allergies: Coded Allergies: VANCOMYCIN (Verified Allergy, Unknown, red eyes, itchying, 10/10/16) Uncoded Allergies: Canned Food (Allergy, Unknown, 03/22/18) Nausea/Vomitting/Indigestion Objective Last 24 Hour Vital Signs Date Time Temp Pulse Resp B/P (MAP) Pulse Ox O2 Delivery O2 Flow Rate FiO2 03/24/18 15:26 82 20 98 Room Air 21 03/24/18 15:21 98.6 84 20 146/83 (104) 95 98.6 03/24/18 15:19 80 20 93 Room Air 21 03/24/18 11:42 98.4 20 146/98 (114) 92 98.4 03/24/18 11:05 80 20 99 Room Air 21 03/24/18 10:58 82 20 94 Room Air 21 03/24/18 09:00 Room Air 03/24/18 08:35 103 150/79 03/24/18 08:02 98.8 103 20 150/79 (102) 93 98.8 103 03/24/18 08:01 78 20 98 Room Air 21 03/24/18 08:00 78 20 Room Air 03/24/18 07:52 78 20 93 Room Air 21 03/24/18 04:00 99.4 72 21 160/79 (106) 93 99.4 03/24/18 03:37 79 20 99 Room Air 21 03/24/18 03:25 84 20 92 Room Air 03/24/18 00:00 98.7 72 18 156/76 (102) 94 98.7 03/23/18 22:42 77 20 96 Room Air 21 03/23/18 22:32 79 20 93 Room Air 21 03/23/18 21:00 Room Air 03/23/18 20:00 98.4 87 21 149/87 (107) 93 98.4 03/23/18 19:32 89 22 96 Room Air 21 03/23/18 19:23 89 25 94 Room Air 21 Intake and Output 03/23/18 03/24/18 19:00 07:00 Intake Total 915.0 ml Balance 915.0 ml Intake Oral 860 ml IV Total 55.0 ml # Voids 3 # Bowel Movements 1 Objective General Appearance: WD/WN HEENT: normocephalic, atraumatic Respiratory/Chest: chest wall non-tender, lungs clear Breasts: no masses Cardiovascular: normal peripheral pulses Abdomen: normal bowel sounds, soft, non tender Genitourinary: normal external genitalia Extremities: no cyanosis Skin: no rash 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 Resulted 03/22/18 00:00 Nasal Nares MRSA Culture - Final NO METHICILLIN RESISTANT STAPH AUREUS... Complete 03/22/18 10:46 Rectum - Final NO CARBAPENEM-RESISTANT ENTEROBACTERI... Complete 03/22/18 00:00 Rectum VRE Culture - Final NO VANCOMYCIN RESISTANT ENTEROCOCCUS ... Complete Current Medications Medications (Trade) Dose Ordered Sig/Mecca Route PRN Reason Start Time Stop Time Status Last Admin Dose Admin Albuterol/ Ipratropium (Albuterol/ Ipratropium) 3 ml Q4HRT HHN 03/23/18 15:00 03/27/18 18:59 03/24/18 15:19 Amlodipine Besylate (Norvasc) 2.5 mg DAILY ORAL 03/24/18 09:00 04/21/18 08:59 03/24/18 08:35 Cetirizine HCl (ZyrTEC) 10 mg DAILY ORAL 03/24/18 09:00 04/22/18 08:59 03/24/18 08:37 Clonidine HCl (Catapres Tab) 0.1 mg Q6H PRN ORAL For High Blood Pressure 03/23/18 16:58 04/22/18 16:57 03/23/18 17:08 Clopidogrel Bisulfate (Plavix) 75 mg DAILY ORAL 03/24/18 09:00 04/21/18 08:59 03/24/18 08:22 Dextrose (Dextrose 50%) 25 ml STAT PRN IV Hypoglycemia 03/23/18 14:00 04/22/18 13:59 Dextrose (Dextrose 50%) 50 ml STAT PRN IV Hypoglycemia 03/23/18 14:00 04/22/18 13:59 Docusate Sodium (Colace) 100 mg THREE TIMES A DAY ORAL 03/23/18 14:00 04/21/18 13:59 03/24/18 18:05 Fluoxetine HCl (PROzac) 20 mg DAILY ORAL 03/24/18 09:00 04/21/18 12:29 03/24/18 08:27 Heparin Sodium (Porcine) (Heparin 5000 units/ml) 5,000 units EVERY 12 HOURS SUBQ 03/23/18 21:00 04/21/18 08:59 03/24/18 08:23 Lactulose (Cephulac) 30 gm THREE TIMES A DAY ORAL 03/23/18 14:00 04/21/18 13:59 Lidocaine (Xylocaine 1% MPF 5ml) 10 ml Q4H PRN HHN cough 03/23/18 14:00 04/22/18 13:59 Lorazepam (Ativan 2mg/ml 1ml) 0.5 mg Q4H PRN IV For Anxiety 03/23/18 14:00 03/29/18 13:59 Methylprednisolone Sodium Succinate (Solu-MEDROL) 60 mg EVERY 6 HOURS IV 03/23/18 18:00 04/21/18 11:59 03/24/18 18:05 Mineral Oil (Fleet's Mineral Oil Enema) 133 ml EVERY OTHER DAY RECTAL 03/24/18 09:00 04/23/18 08:59 Nitroglycerin (Ntg) 0.4 mg Q5M X 3 DOSES PRN SL Prn Chest Pain 03/23/18 14:00 04/21/18 13:59 Ondansetron HCl (Zofran) 4 mg Q6H PRN IVP Nausea & Vomiting 03/23/18 14:00 04/21/18 13:59 Phenytoin (Dilantin) 100 mg BEDTIME ORAL 03/23/18 21:00 04/21/18 20:59 03/23/18 22:29 Piperacillin Sod/ Tazobactam Sod 3.375 gm/Dextrose 110 ml @ 27.5 mls/hr EVERY 8 HOURS IVPB 03/23/18 14:00 03/29/18 13:59 03/24/18 13:05 Polyethylene Glycol (Miralax) 17 gm BEDTIME ORAL 03/23/18 21:00 04/21/18 20:59 03/23/18 22:29 Pregabalin (Lyrica) 50 mg Q12HR ORAL 03/23/18 21:00 04/21/18 08:59 03/24/18 08:35 Promethazine HCl/ Codeine (Phenergan with Codeine) 5 ml Q6H PRN ORAL cough 03/23/18 14:00 04/21/18 13:59 03/24/18 12:35 Sennosides (Senokot) 1 tab DAILY ORAL 03/24/18 09:00 04/22/18 08:59 03/24/18 08:27 Temazepam (Restoril) 15 mg HSPRN PRN ORAL Insomnia 03/24/18 21:00 03/29/18 20:59 Theophylline (Fabrice-Dur) 100 mg EVERY 12 HOURS ORAL 03/23/18 21:00 04/21/18 08:59 03/24/18 08:28 Luis A Juares MD Mar 24, 2018 18:23
[2018-03-24] MEDS: Phenytoin 100mg cap ORAL SCH (20:39)
[2018-03-24] MEDS: Miralax 17gm pkt ORAL SCH (20:39)
[2018-03-25] VITALS: BP 155/78
[2018-03-25] MEDS: Albuterol/Ipratropium 3ml neb HHN SCH ×7 (00:02→23:41)
[2018-03-25 04:00] VITALS: BP 149/67
[2018-03-25] MEDS: Piperacillin/Tazobactam 3.375 GM in D5W 110 ML IVPB SCH ×3 (05:40→21:23)
[2018-03-25] MEDS: Solu-MEDROL 125mg Inj IV SCH ×4 (05:40→23:21)
[2018-03-25 07:44] VITALS: BP 139/76
[2018-03-25] MEDS: Promethazine/Codeine 5ml UD ORAL PRN (08:23)
[2018-03-25] MEDS: Docusate 100mg cap ORAL SCH ×3 (08:24→16:53)
[2018-03-25] MEDS: Lyrica 50mg cap ORAL SCH ×2 (08:24→21:23)
[2018-03-25] MEDS: Lactulose 20gm/30ml UDC ORAL SCH ×3 (08:25→16:52)
[2018-03-25] MEDS: Heparin 5000 units/ml inj SUBQ SCH ×2 (08:28→21:24)
[2018-03-25] MEDS: Sennosides 8.6mg ORAL SCH (08:30)
[2018-03-25] MEDS: Theophylline ER 100mg ORAL SCH ×2 (08:30→21:23)
[2018-03-25 11:15] VITALS: BP 147/77
--- NOTE | 2018-03-25 12:25 | Pulmonology Progress Note ---
Assessment/Plan Problems: (1) Acute respiratory failure (2) Acute asthma exacerbation (3) CAD (coronary artery disease) (4) HTN (hypertension) Assessment/Plan no new complains lidocain inhalation for persistent cough doing better check sputum monitor respiratory rate check cxr Subjective ROS Limited/Unobtainable: No Constitutional: Reports: no symptoms HEENT: Repors: no symptoms Respiratory: Reports: no symptoms Allergies: Coded Allergies: VANCOMYCIN (Verified Allergy, Unknown, red eyes, itchying, 10/10/16) Uncoded Allergies: Canned Food (Allergy, Unknown, 03/22/18) Nausea/Vomitting/Indigestion Objective Last 24 Hour Vital Signs Date Time Temp Pulse Resp B/P (MAP) Pulse Ox O2 Delivery O2 Flow Rate FiO2 03/25/18 11:15 98.3 105 20 147/77 (100) 94 98.3 03/25/18 08:59 Room Air 03/25/18 08:24 91 139/76 03/25/18 08:14 91 22 98 Room Air 21 03/25/18 07:59 102 20 91 Room Air 21 03/25/18 07:44 99.1 101 20 139/76 (97) 95 99.1 03/25/18 04:00 98.5 98 21 149/67 (94) 96 98.5 03/25/18 03:29 87 22 100 Room Air 21 03/25/18 03:20 91 22 98 Room Air 21 03/25/18 00:00 97.9 101 20 155/78 (103) 94 97.9 03/24/18 23:29 82 18 98 Room Air 21 03/24/18 23:21 88 20 96 Room Air 21 03/24/18 21:10 78 150/78 (102) 03/24/18 21:00 Room Air 03/24/18 20:00 97.9 90 19 180/92 (121) 94 97.9 03/24/18 20:00 180/92 03/24/18 19:18 89 18 98 Room Air 21 03/24/18 19:12 94 22 97 Room Air 21 03/24/18 15:26 82 20 98 Room Air 21 03/24/18 15:21 98.6 84 20 146/83 (104) 95 98.6 03/24/18 15:19 80 20 93 Room Air 21 Intake and Output 03/24/18 03/25/18 19:00 07:00 Intake Total 1125.0 ml 310.0 ml Balance 1125.0 ml 310.0 ml Intake Oral 960 ml 200 ml IV Total 165.0 ml 110.0 ml # Voids 3 4 Objective General Appearance: WD/WN HEENT: normocephalic, atraumatic Respiratory/Chest: chest wall non-tender, lungs clear Breasts: no masses Cardiovascular: normal peripheral pulses Abdomen: normal bowel sounds, soft, non tender Genitourinary: normal external genitalia Extremities: no cyanosis Skin: no rash 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 Lymphatic: no neck adenopathy Current Medications Medications (Trade) Dose Ordered Sig/Mecca Route PRN Reason Start Time Stop Time Status Last Admin Dose Admin Albuterol/ Ipratropium (Albuterol/ Ipratropium) 3 ml Q4HRT HHN 03/23/18 15:00 03/27/18 18:59 03/25/18 07:58 Amlodipine Besylate (Norvasc) 2.5 mg DAILY ORAL 03/24/18 09:00 04/21/18 08:59 03/25/18 08:24 Cetirizine HCl (ZyrTEC) 10 mg DAILY ORAL 03/24/18 09:00 04/22/18 08:59 03/25/18 08:24 Clonidine HCl (Catapres Tab) 0.1 mg Q6H PRN ORAL For High Blood Pressure 03/23/18 16:58 04/22/18 16:57 03/24/18 20:00 Clopidogrel Bisulfate (Plavix) 75 mg DAILY ORAL 03/24/18 09:00 04/21/18 08:59 03/25/18 08:24 Dextrose (Dextrose 50%) 25 ml STAT PRN IV Hypoglycemia 03/23/18 14:00 04/22/18 13:59 Dextrose (Dextrose 50%) 50 ml STAT PRN IV Hypoglycemia 03/23/18 14:00 04/22/18 13:59 Docusate Sodium (Colace) 100 mg THREE TIMES A DAY ORAL 03/23/18 14:00 04/21/18 13:59 03/25/18 11:55 Fluoxetine HCl (PROzac) 20 mg DAILY ORAL 03/24/18 09:00 04/21/18 12:29 03/25/18 08:25 Heparin Sodium (Porcine) (Heparin 5000 units/ml) 5,000 units EVERY 12 HOURS SUBQ 03/23/18 21:00 04/21/18 08:59 03/25/18 08:28 Lactulose (Cephulac) 30 gm THREE TIMES A DAY ORAL 03/23/18 14:00 04/21/18 13:59 03/25/18 11:55 Lidocaine (Xylocaine 1% MPF 5ml) 10 ml Q4H PRN HHN cough 03/23/18 14:00 04/22/18 13:59 Lorazepam (Ativan 2mg/ml 1ml) 0.5 mg Q4H PRN IV For Anxiety 03/23/18 14:00 03/29/18 13:59 Methylprednisolone Sodium Succinate (Solu-MEDROL) 60 mg EVERY 6 HOURS IV 03/23/18 18:00 04/21/18 11:59 03/25/18 11:56 Mineral Oil (Fleet's Mineral Oil Enema) 133 ml EVERY OTHER DAY RECTAL 03/24/18 09:00 04/23/18 08:59 Nitroglycerin (Ntg) 0.4 mg Q5M X 3 DOSES PRN SL Prn Chest Pain 03/23/18 14:00 04/21/18 13:59 Ondansetron HCl (Zofran) 4 mg Q6H PRN IVP Nausea & Vomiting 03/23/18 14:00 04/21/18 13:59 03/25/18 04:09 Phenytoin (Dilantin) 100 mg BEDTIME ORAL 03/23/18 21:00 04/21/18 20:59 03/24/18 20:39 Piperacillin Sod/ Tazobactam Sod 3.375 gm/Dextrose 110 ml @ 27.5 mls/hr EVERY 8 HOURS IVPB 03/23/18 14:00 03/29/18 13:59 03/25/18 05:40 Polyethylene Glycol (Miralax) 17 gm BEDTIME ORAL 03/23/18 21:00 04/21/18 20:59 03/23/18 22:29 Pregabalin (Lyrica) 50 mg Q12HR ORAL 03/23/18 21:00 04/21/18 08:59 03/25/18 08:24 Promethazine HCl/ Codeine (Phenergan with Codeine) 5 ml Q6H PRN ORAL cough 03/23/18 14:00 04/21/18 13:59 03/25/18 08:23 Sennosides (Senokot) 1 tab DAILY ORAL 03/24/18 09:00 04/22/18 08:59 03/25/18 08:30 Temazepam (Restoril) 15 mg HSPRN PRN ORAL Insomnia 03/24/18 21:00 03/29/18 20:59 Theophylline (Fabrice-Dur) 100 mg EVERY 12 HOURS ORAL 03/23/18 21:00 04/21/18 08:59 03/25/18 08:30 Luis A Juares MD Mar 25, 2018 12:25
--- NOTE | 2018-03-25 15:29 | Internal Med Progress Note ---
Subjective Date of Service: Mar 25, 2018 Physician Name Hank Toure Attending Physician Shlomo Garcia MD Current Medications Medications (Trade) Dose Ordered Sig/Mecca Route PRN Reason Start Time Stop Time Status Last Admin Dose Admin Albuterol/ Ipratropium (Albuterol/ Ipratropium) 3 ml Q4HRT HHN 03/23/18 15:00 03/27/18 18:59 03/25/18 13:45 Amlodipine Besylate (Norvasc) 2.5 mg DAILY ORAL 03/24/18 09:00 04/21/18 08:59 03/25/18 08:24 Cetirizine HCl (ZyrTEC) 10 mg DAILY ORAL 03/24/18 09:00 04/22/18 08:59 03/25/18 08:24 Clonidine HCl (Catapres Tab) 0.1 mg Q6H PRN ORAL For High Blood Pressure 03/23/18 16:58 04/22/18 16:57 03/24/18 20:00 Clopidogrel Bisulfate (Plavix) 75 mg DAILY ORAL 03/24/18 09:00 04/21/18 08:59 03/25/18 08:24 Dextrose (Dextrose 50%) 25 ml STAT PRN IV Hypoglycemia 03/23/18 14:00 04/22/18 13:59 Dextrose (Dextrose 50%) 50 ml STAT PRN IV Hypoglycemia 03/23/18 14:00 04/22/18 13:59 Docusate Sodium (Colace) 100 mg THREE TIMES A DAY ORAL 03/23/18 14:00 04/21/18 13:59 03/25/18 11:55 Fluoxetine HCl (PROzac) 20 mg DAILY ORAL 03/24/18 09:00 04/21/18 12:29 03/25/18 08:25 Heparin Sodium (Porcine) (Heparin 5000 units/ml) 5,000 units EVERY 12 HOURS SUBQ 03/23/18 21:00 04/21/18 08:59 03/25/18 08:28 Lactulose (Cephulac) 30 gm THREE TIMES A DAY ORAL 03/23/18 14:00 04/21/18 13:59 03/25/18 11:55 Lidocaine (Xylocaine 1% MPF 5ml) 10 ml Q4H PRN HHN cough 03/23/18 14:00 04/22/18 13:59 Lorazepam (Ativan 2mg/ml 1ml) 0.5 mg Q4H PRN IV For Anxiety 03/23/18 14:00 03/29/18 13:59 Methylprednisolone Sodium Succinate (Solu-MEDROL) 60 mg EVERY 6 HOURS IV 03/23/18 18:00 04/21/18 11:59 03/25/18 11:56 Mineral Oil (Fleet's Mineral Oil Enema) 133 ml EVERY OTHER DAY RECTAL 03/24/18 09:00 04/23/18 08:59 Nitroglycerin (Ntg) 0.4 mg Q5M X 3 DOSES PRN SL Prn Chest Pain 03/23/18 14:00 04/21/18 13:59 Ondansetron HCl (Zofran) 4 mg Q6H PRN IVP Nausea & Vomiting 03/23/18 14:00 04/21/18 13:59 03/25/18 04:09 Phenytoin (Dilantin) 100 mg BEDTIME ORAL 03/23/18 21:00 04/21/18 20:59 03/24/18 20:39 Piperacillin Sod/ Tazobactam Sod 3.375 gm/Dextrose 110 ml @ 27.5 mls/hr EVERY 8 HOURS IVPB 03/23/18 14:00 03/29/18 13:59 03/25/18 13:17 Polyethylene Glycol (Miralax) 17 gm BEDTIME ORAL 03/23/18 21:00 04/21/18 20:59 03/23/18 22:29 Pregabalin (Lyrica) 50 mg Q12HR ORAL 03/23/18 21:00 04/21/18 08:59 03/25/18 08:24 Promethazine HCl/ Codeine (Phenergan with Codeine) 5 ml Q6H PRN ORAL cough 03/23/18 14:00 04/21/18 13:59 03/25/18 08:23 Sennosides (Senokot) 1 tab DAILY ORAL 03/24/18 09:00 04/22/18 08:59 03/25/18 08:30 Temazepam (Restoril) 15 mg HSPRN PRN ORAL Insomnia 03/24/18 21:00 03/29/18 20:59 Theophylline (Fabrice-Dur) 100 mg EVERY 12 HOURS ORAL 03/23/18 21:00 8/18/18 08:59 03/25/18 08:30 Allergies: Coded Allergies: VANCOMYCIN (Verified Allergy, Unknown, red eyes, itchying, 10/10/16) Uncoded Allergies: Canned Food (Allergy, Unknown, 03/22/18) Nausea/Vomitting/Indigestion ROS Limited/Unobtainable: No Constitutional: Reports: no symptoms HEENT: Reports: no symptoms Cardiovascular: Reports: no symptoms Respiratory: Reports: cough, shortness of breath Gastrointestinal/Abdominal: Reports: no symptoms Genitourinary: Reports: no symptoms Neurologic/Psychiatric: Reports: no symptoms Subjective 83 YO F admitted with asthma exacerbation. Cover for Int Med-Dr Garcia Objective Last Vital Signs Date Time Temp Pulse Resp B/P (MAP) Pulse Ox O2 Delivery O2 Flow Rate FiO2 03/25/18 13:45 92 22 92 Room Air 21 03/25/18 11:15 98.3 147/77 (100) 98.3 Intake and Output 03/24/18 03/25/18 19:00 07:00 Intake Total 1125.0 ml 310.0 ml Balance 1125.0 ml 310.0 ml Intake Oral 960 ml 200 ml IV Total 165.0 ml 110.0 ml # Voids 3 4 Objective General Appearance: WD/WN, no apparent distress, alert EENT: PERRL/EOMI, normal ENT inspection Neck: non-tender, normal alignment, supple, normal inspection Cardiovascular: normal peripheral pulses, normal rate, regular rhythm, no gallop/murmur, no JVD Respiratory/Chest: chest wall non-tender, respiratory distress, crackles/rales , rhonchi - bilaterally, expiratory wheezing Abdomen: normal bowel sounds, non tender, soft, no organomegaly, no mass Extremities: normal range of motion 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 (6) GERD (gastroesophageal reflux disease) (7) Hypercholesteremia (8) Bronchitis Assessment & Plan: Continue zosyn. (9) Seizure Assessment & Plan: Continue Dilantin. Status: progressing Hank Toure MD Mar 25, 2018 15:29
[2018-03-25 16:00] VITALS: BP 154/84
[2018-03-25 20:00] VITALS: BP 158/91
[2018-03-25] MEDS: Miralax 17gm pkt ORAL SCH (21:00)
[2018-03-25] MEDS: Phenytoin 100mg cap ORAL SCH (21:23)
[2018-03-26] VITALS (7 sets, daily range): BP systolic 136–168; BP diastolic 69–91
[2018-03-26] MEDS: Albuterol/Ipratropium 3ml neb HHN SCH ×5 (04:01→19:47)
[2018-03-26] MEDS: Solu-MEDROL 125mg Inj IV SCH ×4 (06:06→23:43)
[2018-03-26] MEDS: Piperacillin/Tazobactam 3.375 GM in D5W 110 ML IVPB SCH ×3 (06:06→22:25)
[2018-03-26] MEDS: Theophylline ER 100mg ORAL SCH ×2 (08:13→20:28)
[2018-03-26] MEDS: Lyrica 50mg cap ORAL SCH ×2 (08:14→20:29)
[2018-03-26] MEDS: Heparin 5000 units/ml inj SUBQ SCH ×2 (08:18→20:31)
[2018-03-26] MEDS: Fleet's Mineral Oil Enema RECTAL SCH (08:19)
[2018-03-26] MEDS: Docusate 100mg cap ORAL SCH ×3 (08:20→17:00)
[2018-03-26] MEDS: Sennosides 8.6mg ORAL SCH (08:20)
[2018-03-26] MEDS: Lactulose 20gm/30ml UDC ORAL SCH ×3 (08:20→17:00)
[2018-03-26] MEDS: Promethazine/Codeine 5ml UD ORAL PRN (08:23)
--- NOTE | 2018-03-26 12:33 | Internal Med Progress Note ---
Subjective Date of Service: Mar 26, 2018 Physician Name Hank Toure Attending Physician Shlomo Garcia MD Current Medications Medications (Trade) Dose Ordered Sig/Mecca Route PRN Reason Start Time Stop Time Status Last Admin Dose Admin Albuterol/ Ipratropium (Albuterol/ Ipratropium) 3 ml Q4HRT HHN 03/23/18 15:00 03/27/18 18:59 03/26/18 09:18 Amlodipine Besylate (Norvasc) 2.5 mg DAILY ORAL 03/24/18 09:00 04/21/18 08:59 03/26/18 08:13 Cetirizine HCl (ZyrTEC) 10 mg DAILY ORAL 03/24/18 09:00 04/22/18 08:59 03/26/18 08:23 Clonidine HCl (Catapres Tab) 0.1 mg Q6H PRN ORAL For High Blood Pressure 03/23/18 16:58 04/22/18 16:57 03/24/18 20:00 Clopidogrel Bisulfate (Plavix) 75 mg DAILY ORAL 03/24/18 09:00 04/21/18 08:59 03/26/18 08:14 Dextrose (Dextrose 50%) 25 ml STAT PRN IV Hypoglycemia 03/23/18 14:00 04/22/18 13:59 Dextrose (Dextrose 50%) 50 ml STAT PRN IV Hypoglycemia 03/23/18 14:00 04/22/18 13:59 Docusate Sodium (Colace) 100 mg THREE TIMES A DAY ORAL 03/23/18 14:00 04/21/18 13:59 03/25/18 11:55 Fluoxetine HCl (PROzac) 20 mg DAILY ORAL 03/24/18 09:00 04/21/18 12:29 03/26/18 08:14 Heparin Sodium (Porcine) (Heparin 5000 units/ml) 5,000 units EVERY 12 HOURS SUBQ 03/23/18 21:00 04/21/18 08:59 03/26/18 08:18 Lactulose (Cephulac) 30 gm THREE TIMES A DAY ORAL 03/23/18 14:00 04/21/18 13:59 03/25/18 11:55 Lidocaine (Xylocaine 1% MPF 5ml) 10 ml Q4H PRN HHN cough 03/23/18 14:00 04/22/18 13:59 Lorazepam (Ativan 2mg/ml 1ml) 0.5 mg Q4H PRN IV For Anxiety 03/23/18 14:00 03/29/18 13:59 Methylprednisolone Sodium Succinate (Solu-MEDROL) 60 mg EVERY 6 HOURS IV 03/23/18 18:00 04/21/18 11:59 03/26/18 06:06 Mineral Oil (Fleet's Mineral Oil Enema) 133 ml EVERY OTHER DAY RECTAL 03/24/18 09:00 04/23/18 08:59 Nitroglycerin (Ntg) 0.4 mg Q5M X 3 DOSES PRN SL Prn Chest Pain 03/23/18 14:00 04/21/18 13:59 Ondansetron HCl (Zofran) 4 mg Q6H PRN IVP Nausea & Vomiting 03/23/18 14:00 04/21/18 13:59 03/25/18 04:09 Phenytoin (Dilantin) 100 mg BEDTIME ORAL 03/23/18 21:00 04/21/18 20:59 03/25/18 21:23 Piperacillin Sod/ Tazobactam Sod 3.375 gm/Dextrose 110 ml @ 27.5 mls/hr EVERY 8 HOURS IVPB 03/23/18 14:00 03/29/18 13:59 03/26/18 06:06 Polyethylene Glycol (Miralax) 17 gm BEDTIME ORAL 03/23/18 21:00 04/21/18 20:59 03/23/18 22:29 Pregabalin (Lyrica) 50 mg Q12HR ORAL 03/23/18 21:00 04/21/18 08:59 03/26/18 08:14 Promethazine HCl/ Codeine (Phenergan with Codeine) 5 ml Q6H PRN ORAL cough 03/23/18 14:00 04/21/18 13:59 03/26/18 08:23 Sennosides (Senokot) 1 tab DAILY ORAL 03/24/18 09:00 04/22/18 08:59 03/25/18 08:30 Temazepam (Restoril) 15 mg HSPRN PRN ORAL Insomnia 03/24/18 21:00 03/29/18 20:59 Theophylline (Fabrice-Dur) 100 mg EVERY 12 HOURS ORAL 03/23/18 21:00 8/18/18 08:59 03/26/18 08:13 Allergies: Coded Allergies: VANCOMYCIN (Verified Allergy, Unknown, red eyes, itchying, 10/10/16) Uncoded Allergies: Canned Food (Allergy, Unknown, 03/22/18) Nausea/Vomitting/Indigestion ROS Limited/Unobtainable: No Constitutional: Reports: no symptoms HEENT: Reports: no symptoms Cardiovascular: Reports: no symptoms Respiratory: Reports: cough, shortness of breath Gastrointestinal/Abdominal: Reports: no symptoms Genitourinary: Reports: no symptoms Neurologic/Psychiatric: Reports: no symptoms Subjective 83 YO F admitted with asthma exacerbation. Cover for Int Med-Dr Garcia Objective Last Vital Signs Date Time Temp Pulse Resp B/P (MAP) Pulse Ox O2 Delivery O2 Flow Rate FiO2 03/26/18 12:00 99.5 100 20 168/89 (115) 100 99.5 03/26/18 08:00 Room Air 03/26/18 07:10 21 Intake and Output 03/25/18 03/26/18 19:00 07:00 Intake Total 720 ml 497.5 ml Balance 720 ml 497.5 ml Intake Oral 720 ml 360 ml IV Total 137.5 ml # Voids 6 3 # Bowel Movements 2 4 Objective General Appearance: WD/WN, no apparent distress, alert EENT: PERRL/EOMI, normal ENT inspection Neck: non-tender, normal alignment, supple, normal inspection Cardiovascular: normal peripheral pulses, normal rate, regular rhythm, no gallop/murmur, no JVD Respiratory/Chest: chest wall non-tender, respiratory distress, crackles/rales , rhonchi - bilaterally, expiratory wheezing Abdomen: normal bowel sounds, non tender, soft, no organomegaly, no mass Extremities: normal range of motion 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 (6) GERD (gastroesophageal reflux disease) (7) Hypercholesteremia (8) Bronchitis Assessment & Plan: Continue zosyn. (9) Seizure Assessment & Plan: Continue Dilantin. Status: stable Assessment/Plan Discharge planning: Home with home health today Hank Toure MD Mar 26, 2018 12:33
[2018-03-26] MEDS ORDERED: LEVAQUIN500 MG ORAL (12:37)
--- NOTE | 2018-03-26 14:28 | Pulmonology Progress Note ---
Assessment/Plan Problems: (1) Acute respiratory failure (2) Acute asthma exacerbation (3) CAD (coronary artery disease) (4) HTN (hypertension) Assessment/Plan dc planning no new complains lidocain inhalation for persistent cough doing better check sputum monitor respiratory rate Subjective ROS Limited/Unobtainable: No Constitutional: Reports: no symptoms HEENT: Repors: no symptoms Respiratory: Reports: no symptoms Allergies: Coded Allergies: VANCOMYCIN (Verified Allergy, Unknown, red eyes, itchying, 10/10/16) Uncoded Allergies: Canned Food (Allergy, Unknown, 03/22/18) Nausea/Vomitting/Indigestion Objective Last 24 Hour Vital Signs Date Time Temp Pulse Resp B/P (MAP) Pulse Ox O2 Delivery O2 Flow Rate FiO2 03/26/18 12:51 102 20 92 Room Air 21 03/26/18 12:20 168/89 03/26/18 12:00 99.5 100 20 168/89 (115) 100 99.5 03/26/18 08:13 83 154/91 03/26/18 08:00 Room Air 03/26/18 08:00 98.2 97 20 150/89 (109) 98 98.2 03/26/18 07:10 100 20 99 Room Air 21 03/26/18 07:00 104 20 99 Room Air 21 03/26/18 04:00 98.6 83 19 154/91 (112) 92 98.6 03/26/18 03:59 94 22 99 Room Air 21 03/26/18 03:53 92 22 96 Room Air 21 03/26/18 00:00 98.3 79 19 136/78 (97) 91 98.3 03/25/18 23:51 90 20 100 Room Air 21 03/25/18 23:41 98 22 96 Room Air 21 03/25/18 21:00 Room Air 03/25/18 20:00 98.8 93 20 158/91 (113) 92 98.8 03/25/18 19:39 93 20 99 Room Air 21 03/25/18 19:32 97 22 96 Room Air 21 03/25/18 16:00 99.0 106 20 154/84 (107) 92 99.0 Intake and Output 03/25/18 03/26/18 19:00 07:00 Intake Total 720 ml 497.5 ml Balance 720 ml 497.5 ml Intake Oral 720 ml 360 ml IV Total 137.5 ml # Voids 6 3 # Bowel Movements 2 4 Objective General Appearance: WD/WN HEENT: normocephalic, atraumatic Respiratory/Chest: chest wall non-tender, lungs clear Breasts: no masses Cardiovascular: normal peripheral pulses Abdomen: normal bowel sounds, soft, non tender Genitourinary: normal external genitalia Extremities: no cyanosis Skin: no rash 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 Lymphatic: no neck adenopathy Current Medications Medications (Trade) Dose Ordered Sig/Mecca Route PRN Reason Start Time Stop Time Status Last Admin Dose Admin Albuterol/ Ipratropium (Albuterol/ Ipratropium) 3 ml Q4HRT HHN 03/23/18 15:00 03/27/18 18:59 03/26/18 12:53 Amlodipine Besylate (Norvasc) 2.5 mg DAILY ORAL 03/24/18 09:00 04/21/18 08:59 03/26/18 08:13 Cetirizine HCl (ZyrTEC) 10 mg DAILY ORAL 03/24/18 09:00 04/22/18 08:59 03/26/18 08:23 Clonidine HCl (Catapres Tab) 0.1 mg Q6H PRN ORAL For High Blood Pressure 03/23/18 16:58 04/22/18 16:57 03/26/18 12:20 Clopidogrel Bisulfate (Plavix) 75 mg DAILY ORAL 03/24/18 09:00 04/21/18 08:59 03/26/18 08:14 Dextrose (Dextrose 50%) 25 ml STAT PRN IV Hypoglycemia 03/23/18 14:00 04/22/18 13:59 Dextrose (Dextrose 50%) 50 ml STAT PRN IV Hypoglycemia 03/23/18 14:00 04/22/18 13:59 Docusate Sodium (Colace) 100 mg THREE TIMES A DAY ORAL 03/23/18 14:00 04/21/18 13:59 03/25/18 11:55 Fluoxetine HCl (PROzac) 20 mg DAILY ORAL 03/24/18 09:00 04/21/18 12:29 03/26/18 08:14 Heparin Sodium (Porcine) (Heparin 5000 units/ml) 5,000 units EVERY 12 HOURS SUBQ 03/23/18 21:00 04/21/18 08:59 03/26/18 08:18 Lactulose (Cephulac) 30 gm THREE TIMES A DAY ORAL 03/23/18 14:00 04/21/18 13:59 03/25/18 11:55 Lidocaine (Xylocaine 1% MPF 5ml) 10 ml Q4H PRN HHN cough 03/23/18 14:00 04/22/18 13:59 Lorazepam (Ativan 2mg/ml 1ml) 0.5 mg Q4H PRN IV For Anxiety 03/23/18 14:00 03/29/18 13:59 Methylprednisolone Sodium Succinate (Solu-MEDROL) 60 mg EVERY 6 HOURS IV 03/23/18 18:00 04/21/18 11:59 03/26/18 12:20 Mineral Oil (Fleet's Mineral Oil Enema) 133 ml EVERY OTHER DAY RECTAL 03/24/18 09:00 04/23/18 08:59 Nitroglycerin (Ntg) 0.4 mg Q5M X 3 DOSES PRN SL Prn Chest Pain 03/23/18 14:00 04/21/18 13:59 Ondansetron HCl (Zofran) 4 mg Q6H PRN IVP Nausea & Vomiting 03/23/18 14:00 04/21/18 13:59 03/25/18 04:09 Phenytoin (Dilantin) 100 mg BEDTIME ORAL 03/23/18 21:00 04/21/18 20:59 03/25/18 21:23 Piperacillin Sod/ Tazobactam Sod 3.375 gm/Dextrose 110 ml @ 27.5 mls/hr EVERY 8 HOURS IVPB 03/23/18 14:00 03/29/18 13:59 03/26/18 13:37 Polyethylene Glycol (Miralax) 17 gm BEDTIME ORAL 03/23/18 21:00 04/21/18 20:59 03/23/18 22:29 Pregabalin (Lyrica) 50 mg Q12HR ORAL 03/23/18 21:00 04/21/18 08:59 03/26/18 08:14 Promethazine HCl/ Codeine (Phenergan with Codeine) 5 ml Q6H PRN ORAL cough 03/23/18 14:00 04/21/18 13:59 03/26/18 08:23 Sennosides (Senokot) 1 tab DAILY ORAL 03/24/18 09:00 04/22/18 08:59 03/25/18 08:30 Temazepam (Restoril) 15 mg HSPRN PRN ORAL Insomnia 03/24/18 21:00 03/29/18 20:59 Theophylline (Fabrice-Dur) 100 mg EVERY 12 HOURS ORAL 03/23/18 21:00 04/21/18 08:59 03/26/18 08:13 Luis A Juares MD Mar 26, 2018 14:28
--- NOTE | 2018-03-26 16:11 | General Progress Note ---
Assessment/Plan Status: stable, progressing Assessment/Plan Anxiety d/o MDD prozac 20mg qam ativan prn Subjective Date patient seen: Mar 26, 2018 Neurologic/Psychiatric: Reports: anxiety, depressed, emotional problems Allergies: Coded Allergies: VANCOMYCIN (Verified Allergy, Unknown, red eyes, itchying, 10/10/16) Uncoded Allergies: Canned Food (Allergy, Unknown, 03/22/18) Nausea/Vomitting/Indigestion Objective Last 24 Hour Vital Signs Date Time Temp Pulse Resp B/P (MAP) Pulse Ox O2 Delivery O2 Flow Rate FiO2 03/26/18 13:00 149/69 (95) 03/26/18 12:51 102 20 92 Room Air 21 03/26/18 12:20 168/89 03/26/18 12:00 99.5 100 20 168/89 (115) 100 99.5 03/26/18 08:13 83 154/91 03/26/18 08:00 Room Air 03/26/18 08:00 98.2 97 20 150/89 (109) 98 98.2 03/26/18 07:10 100 20 99 Room Air 21 03/26/18 07:00 104 20 99 Room Air 21 03/26/18 04:00 98.6 83 19 154/91 (112) 92 98.6 03/26/18 03:59 94 22 99 Room Air 21 03/26/18 03:53 92 22 96 Room Air 21 03/26/18 00:00 98.3 79 19 136/78 (97) 91 98.3 03/25/18 23:51 90 20 100 Room Air 21 03/25/18 23:41 98 22 96 Room Air 21 03/25/18 21:00 Room Air 03/25/18 20:00 98.8 93 20 158/91 (113) 92 98.8 03/25/18 19:39 93 20 99 Room Air 21 03/25/18 19:32 97 22 96 Room Air 21 Intake and Output 03/25/18 03/26/18 19:00 07:00 Intake Total 720 ml 497.5 ml Balance 720 ml 497.5 ml Intake Oral 720 ml 360 ml IV Total 137.5 ml # Voids 6 3 # Bowel Movements 2 4 Height (Feet): 5 Height (Inches): 1.00 Weight (Pounds): 152 General Appearance: no apparent distress, alert Neurologic: oriented x 3, responsive, depressed affect Sherin Holm MD Mar 26, 2018 16:11
[2018-03-26] MEDS: Miralax 17gm pkt ORAL SCH (20:27)
[2018-03-26] MEDS: Phenytoin 100mg cap ORAL SCH (20:28)
[2018-03-27] VITALS: BP 165/89
[2018-03-27] MEDS: Albuterol/Ipratropium 3ml neb HHN SCH ×5 (00:01→15:48)
[2018-03-27 04:00] VITALS: BP 158/91
[2018-03-27] MEDS: Piperacillin/Tazobactam 3.375 GM in D5W 110 ML IVPB SCH ×2 (05:59→13:49)
[2018-03-27 08:00] VITALS: BP 130/67
[2018-03-27] MEDS: Theophylline ER 100mg ORAL SCH (08:28)
[2018-03-27] MEDS: Lactulose 20gm/30ml UDC ORAL SCH ×2 (08:29→13:00)
[2018-03-27] MEDS: Lyrica 50mg cap ORAL SCH (08:29)
[2018-03-27] MEDS: Docusate 100mg cap ORAL SCH ×2 (08:29→13:00)
[2018-03-27] MEDS: Solu-MEDROL 125mg Inj IV SCH ×2 (08:30→13:46)
[2018-03-27] MEDS: Sennosides 8.6mg ORAL SCH (08:31)
[2018-03-27] MEDS: Heparin 5000 units/ml inj SUBQ SCH (08:31)
[2018-03-27 12:00] VITALS: BP 157/88
--- NOTE | 2018-03-27 13:51 | Pulmonology Progress Note ---
Assessment/Plan Problems: (1) Acute respiratory failure (2) Acute asthma exacerbation (3) CAD (coronary artery disease) (4) HTN (hypertension) Assessment/Plan dc planning for tday no new complains lidocain inhalation for persistent cough doing better check sputum monitor respiratory rate Subjective ROS Limited/Unobtainable: No Constitutional: Reports: no symptoms HEENT: Repors: no symptoms Respiratory: Reports: no symptoms Allergies: Coded Allergies: VANCOMYCIN (Verified Allergy, Unknown, red eyes, itchying, 10/10/16) Uncoded Allergies: Canned Food (Allergy, Unknown, 03/22/18) Nausea/Vomitting/Indigestion Objective Last 24 Hour Vital Signs Date Time Temp Pulse Resp B/P (MAP) Pulse Ox O2 Delivery O2 Flow Rate FiO2 03/27/18 12:00 98.1 82 18 157/88 (111) 96 98.1 03/27/18 11:29 85 18 99 Room Air 21 03/27/18 11:20 93 18 98 Room Air 21 03/27/18 09:00 Room Air 03/27/18 08:28 91 130/67 03/27/18 08:04 88 20 99 Room Air 21 03/27/18 08:00 98.1 91 18 130/67 (88) 95 98.1 03/27/18 07:52 90 18 97 Room Air 21 03/27/18 04:00 98.8 83 19 158/91 (113) 92 98.8 03/27/18 03:29 Room Air 21 03/27/18 03:29 Room Air 21 03/27/18 00:00 97.9 80 20 165/89 (114) 96 97.9 03/26/18 23:29 101 20 100 Room Air 21 03/26/18 23:24 93 18 98 Room Air 21 03/26/18 21:00 Room Air 03/26/18 20:00 98.0 85 19 156/85 (108) 98 98.0 03/26/18 19:20 95 22 100 Room Air 21 03/26/18 19:11 88 18 99 Room Air 21 03/26/18 16:14 98.6 92 20 152/80 (104) 97 98.6 03/26/18 15:20 99 20 100 Room Air 21 03/26/18 15:20 89 20 99 Room Air 21 Intake and Output 03/26/18 03/27/18 19:00 07:00 Intake Total 1392.5 ml 137.5 ml Balance 1392.5 ml 137.5 ml Intake Oral 1200 ml IV Total 192.5 ml 137.5 ml # Voids 6 3 # Bowel Movements 3 Objective General Appearance: WD/WN HEENT: normocephalic, atraumatic Respiratory/Chest: chest wall non-tender, lungs clear Breasts: no masses Cardiovascular: normal peripheral pulses Abdomen: normal bowel sounds, soft, non tender Genitourinary: normal external genitalia Extremities: no cyanosis Skin: no rash 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 Lymphatic: no neck adenopathy Current Medications Medications (Trade) Dose Ordered Sig/Mecca Route PRN Reason Start Time Stop Time Status Last Admin Dose Admin Al Hydroxide/Mg Hydroxide (Mylanta) 30 ml Q8H PRN ORAL Abdominal cramps 03/27/18 03:15 04/26/18 03:14 Albuterol/ Ipratropium (Albuterol/ Ipratropium) 3 ml Q4HRT HHN 03/23/18 15:00 03/27/18 18:59 03/27/18 11:28 Amlodipine Besylate (Norvasc) 2.5 mg DAILY ORAL 03/24/18 09:00 04/21/18 08:59 03/27/18 08:28 Cetirizine HCl (ZyrTEC) 10 mg DAILY ORAL 03/24/18 09:00 04/22/18 08:59 03/27/18 08:27 Clonidine HCl (Catapres Tab) 0.1 mg Q6H PRN ORAL For High Blood Pressure 03/23/18 16:58 04/22/18 16:57 03/26/18 12:20 Clopidogrel Bisulfate (Plavix) 75 mg DAILY ORAL 03/24/18 09:00 04/21/18 08:59 03/27/18 08:29 Dextrose (Dextrose 50%) 25 ml STAT PRN IV Hypoglycemia 03/23/18 14:00 04/22/18 13:59 Dextrose (Dextrose 50%) 50 ml STAT PRN IV Hypoglycemia 03/23/18 14:00 04/22/18 13:59 Docusate Sodium (Colace) 100 mg THREE TIMES A DAY ORAL 03/23/18 14:00 04/21/18 13:59 03/27/18 08:29 Fluoxetine HCl (PROzac) 20 mg DAILY ORAL 03/24/18 09:00 04/21/18 12:29 03/27/18 08:28 Heparin Sodium (Porcine) (Heparin 5000 units/ml) 5,000 units EVERY 12 HOURS SUBQ 03/23/18 21:00 04/21/18 08:59 03/27/18 08:31 Lactulose (Cephulac) 30 gm THREE TIMES A DAY ORAL 03/23/18 14:00 04/21/18 13:59 03/25/18 11:55 Lidocaine (Xylocaine 1% MPF 5ml) 10 ml Q4H PRN HHN cough 03/23/18 14:00 04/22/18 13:59 Lorazepam (Ativan 2mg/ml 1ml) 0.5 mg Q4H PRN IV For Anxiety 03/23/18 14:00 03/29/18 13:59 Methylprednisolone Sodium Succinate (Solu-MEDROL) 60 mg EVERY 6 HOURS IV 03/23/18 18:00 04/21/18 11:59 03/27/18 13:46 Mineral Oil (Fleet's Mineral Oil Enema) 133 ml EVERY OTHER DAY RECTAL 03/24/18 09:00 04/23/18 08:59 Nitroglycerin (Ntg) 0.4 mg Q5M X 3 DOSES PRN SL Prn Chest Pain 03/23/18 14:00 04/21/18 13:59 Ondansetron HCl (Zofran) 4 mg Q6H PRN IVP Nausea & Vomiting 03/23/18 14:00 04/21/18 13:59 03/25/18 04:09 Pantoprazole (Protonix) 40 mg DAILY ORAL 03/27/18 09:00 04/26/18 08:59 03/27/18 08:28 Phenytoin (Dilantin) 100 mg BEDTIME ORAL 03/23/18 21:00 04/21/18 20:59 03/26/18 20:28 Piperacillin Sod/ Tazobactam Sod 3.375 gm/Dextrose 110 ml @ 27.5 mls/hr EVERY 8 HOURS IVPB 03/23/18 14:00 03/29/18 13:59 03/27/18 13:49 Polyethylene Glycol (Miralax) 17 gm BEDTIME ORAL 03/23/18 21:00 04/21/18 20:59 03/23/18 22:29 Pregabalin (Lyrica) 50 mg Q12HR ORAL 03/23/18 21:00 04/21/18 08:59 03/27/18 08:29 Promethazine HCl/ Codeine (Phenergan with Codeine) 5 ml Q6H PRN ORAL cough 03/23/18 14:00 04/21/18 13:59 03/26/18 08:23 Sennosides (Senokot) 1 tab DAILY ORAL 03/24/18 09:00 04/22/18 08:59 03/27/18 08:31 Temazepam (Restoril) 15 mg HSPRN PRN ORAL Insomnia 03/24/18 21:00 03/29/18 20:59 Theophylline (Fabrice-Dur) 100 mg EVERY 12 HOURS ORAL 03/23/18 21:00 04/21/18 08:59 03/27/18 08:28 Luis A Juares MD Mar 27, 2018 13:51
[2018-03-27] MEDS ORDERED: PROTONIX40 MG ORAL (15:22)
[2018-03-27] MEDS ORDERED: MEDROL4 M1 PO (15:24)
[2018-03-27] MEDS ORDERED: PROMETHAZINE-C118 M1 ORAL (15:24)
--- NOTE | 2018-03-27 15:51 | General Progress Note ---
Assessment/Plan Status: stable, progressing Assessment/Plan Anxiety d/o MDD prozac 20mg qam ativan prn Subjective Date patient seen: Mar 27, 2018 Neurologic/Psychiatric: Reports: anxiety, emotional problems Allergies: Coded Allergies: VANCOMYCIN (Verified Allergy, Unknown, red eyes, itchying, 10/10/16) Uncoded Allergies: Canned Food (Allergy, Unknown, 03/22/18) Nausea/Vomitting/Indigestion Subjective the pt is forgetful. she came with prozac and was agitated in [place]. tajik speaking speaks some bengali Objective Last 24 Hour Vital Signs Date Time Temp Pulse Resp B/P (MAP) Pulse Ox O2 Delivery O2 Flow Rate FiO2 03/27/18 12:00 98.1 82 18 157/88 (111) 96 98.1 03/27/18 11:29 85 18 99 Room Air 03/27/18 11:20 93 18 98 Room Air 03/27/18 09:00 Room Air 03/27/18 08:28 91 130/67 03/27/18 08:04 88 20 99 Room Air 03/27/18 08:00 98.1 91 18 130/67 (88) 95 98.1 03/27/18 07:52 90 18 97 Room Air 03/27/18 04:00 98.8 83 19 158/91 (113) 92 98.8 03/27/18 03:29 Room Air 21 03/27/18 03:29 Room Air 03/27/18 00:00 97.9 80 20 165/89 (114) 96 97.9 03/26/18 23:29 101 20 100 Room Air 03/26/18 23:24 93 18 98 Room Air 21 03/26/18 21:00 Room Air 03/26/18 20:00 98.0 85 19 156/85 (108) 98 98.0 03/26/18 19:20 95 22 100 Room Air 03/26/18 19:11 88 18 99 Room Air 03/26/18 16:14 98.6 92 20 152/80 (104) 97 98.6 Intake and Output 03/26/18 03/27/18 19:00 07:00 Intake Total 1392.5 ml 137.5 ml Balance 1392.5 ml 137.5 ml Intake Oral 1200 ml IV Total 192.5 ml 137.5 ml # Voids 6 3 # Bowel Movements 3 Height (Feet): 5 Height (Inches): 1.00 Weight (Pounds): 152 General Appearance: no apparent distress, alert Neurologic: oriented x 3, responsive, depressed affect Sherin Holm MD Mar 27, 2018 15:51
[2018-03-27 16:00] VITALS: BP 144/82
[2018-03-27 16:03] VITALS: BP 157/88
--- NOTE | 2018-03-27 16:43 | Internal Med Progress Note ---
Subjective Date of Service: Mar 27, 2018 Physician Name Hank Toure Attending Physician Shlomo Garcia MD Current Medications Medications (Trade) Dose Ordered Sig/Mecca Route PRN Reason Start Time Stop Time Status Last Admin Dose Admin Al Hydroxide/Mg Hydroxide (Mylanta) 30 ml Q8H PRN ORAL Abdominal cramps 03/27/18 03:15 04/26/18 03:14 Albuterol/ Ipratropium (Albuterol/ Ipratropium) 3 ml Q4HRT HHN 03/23/18 15:00 03/27/18 18:59 03/27/18 15:48 Amlodipine Besylate (Norvasc) 2.5 mg DAILY ORAL 03/24/18 09:00 04/21/18 08:59 03/27/18 08:28 Clonidine HCl (Catapres Tab) 0.1 mg Q6H PRN ORAL For High Blood Pressure 03/23/18 16:58 04/22/18 16:57 03/27/18 16:03 Clopidogrel Bisulfate (Plavix) 75 mg DAILY ORAL 03/24/18 09:00 04/21/18 08:59 03/27/18 08:29 Dextrose (Dextrose 50%) 25 ml STAT PRN IV Hypoglycemia 03/23/18 14:00 04/22/18 13:59 Dextrose (Dextrose 50%) 50 ml STAT PRN IV Hypoglycemia 03/23/18 14:00 04/22/18 13:59 Docusate Sodium (Colace) 100 mg THREE TIMES A DAY ORAL 03/23/18 14:00 04/21/18 13:59 03/27/18 08:29 Fluoxetine HCl (PROzac) 20 mg DAILY ORAL 03/24/18 09:00 04/21/18 12:29 03/27/18 08:28 Heparin Sodium (Porcine) (Heparin 5000 units/ml) 5,000 units EVERY 12 HOURS SUBQ 03/23/18 21:00 04/21/18 08:59 03/27/18 08:31 Hydroxyzine HCl (Atarax) 25 mg Q6H PRN ORAL Itching 03/27/18 16:45 04/26/18 16:44 UNV Lactulose (Cephulac) 30 gm THREE TIMES A DAY ORAL 03/23/18 14:00 04/21/18 13:59 03/25/18 11:55 Lidocaine (Xylocaine 1% MPF 5ml) 10 ml Q4H PRN HHN cough 03/23/18 14:00 04/22/18 13:59 Lorazepam (Ativan 2mg/ml 1ml) 0.5 mg Q4H PRN IV For Anxiety 03/23/18 14:00 03/29/18 13:59 Methylprednisolone Sodium Succinate (Solu-MEDROL) 60 mg EVERY 6 HOURS IV 03/23/18 18:00 04/21/18 11:59 03/27/18 13:46 Mineral Oil (Fleet's Mineral Oil Enema) 133 ml EVERY OTHER DAY RECTAL 03/24/18 09:00 04/23/18 08:59 Nitroglycerin (Ntg) 0.4 mg Q5M X 3 DOSES PRN SL Prn Chest Pain 03/23/18 14:00 04/21/18 13:59 Ondansetron HCl (Zofran) 4 mg Q6H PRN IVP Nausea & Vomiting 03/23/18 14:00 04/21/18 13:59 03/25/18 04:09 Pantoprazole (Protonix) 40 mg DAILY ORAL 03/27/18 09:00 04/26/18 08:59 03/27/18 08:28 Phenytoin (Dilantin) 100 mg BEDTIME ORAL 03/23/18 21:00 04/21/18 20:59 03/26/18 20:28 Piperacillin Sod/ Tazobactam Sod 3.375 gm/Dextrose 110 ml @ 27.5 mls/hr EVERY 8 HOURS IVPB 03/23/18 14:00 03/29/18 13:59 03/27/18 13:49 Polyethylene Glycol (Miralax) 17 gm BEDTIME ORAL 03/23/18 21:00 04/21/18 20:59 03/23/18 22:29 Pregabalin (Lyrica) 50 mg Q12HR ORAL 03/23/18 21:00 04/21/18 08:59 03/27/18 08:29 Promethazine HCl/ Codeine (Phenergan with Codeine) 5 ml Q6H PRN ORAL cough 03/23/18 14:00 04/21/18 13:59 03/26/18 08:23 Sennosides (Senokot) 1 tab DAILY ORAL 03/24/18 09:00 04/22/18 08:59 03/27/18 08:31 Temazepam (Restoril) 15 mg HSPRN PRN ORAL Insomnia 03/24/18 21:00 03/29/18 20:59 Theophylline (Fabrice-Dur) 100 mg EVERY 12 HOURS ORAL 03/23/18 21:00 04/21/18 08:59 03/27/18 08:28 Allergies: Coded Allergies: VANCOMYCIN (Verified Allergy, Unknown, red eyes, itchying, 10/10/16) Uncoded Allergies: Canned Food (Allergy, Unknown, 03/22/18) Nausea/Vomitting/Indigestion ROS Limited/Unobtainable: No Constitutional: Reports: no symptoms HEENT: Reports: no symptoms Cardiovascular: Reports: no symptoms Respiratory: Reports: shortness of breath Gastrointestinal/Abdominal: Reports: no symptoms Genitourinary: Reports: no symptoms Neurologic/Psychiatric: Reports: no symptoms Subjective 83 YO F admitted with asthma exacerbation. Cover for Int Med-Dr Garcia. Await discharge home Objective Last Vital Signs Date Time Temp Pulse Resp B/P (MAP) Pulse Ox O2 Delivery O2 Flow Rate FiO2 03/27/18 16:03 157/88 03/27/18 15:46 89 18 99 Room Air 21 03/27/18 12:00 98.1 98.1 Intake and Output 03/26/18 03/27/18 19:00 07:00 Intake Total 1392.5 ml 137.5 ml Balance 1392.5 ml 137.5 ml Intake Oral 1200 ml IV Total 192.5 ml 137.5 ml # Voids 6 3 # Bowel Movements 3 Objective General Appearance: WD/WN, no apparent distress, alert EENT: PERRL/EOMI, normal ENT inspection Neck: non-tender, normal alignment, supple, normal inspection Cardiovascular: normal peripheral pulses, normal rate, regular rhythm, no gallop/murmur, no JVD Respiratory/Chest: chest wall non-tender, respiratory distress, crackles/rales , rhonchi - bilaterally, expiratory wheezing Abdomen: normal bowel sounds, non tender, soft, no organomegaly, no mass Extremities: normal range of motion 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 (6) GERD (gastroesophageal reflux disease) (7) Hypercholesteremia (8) Bronchitis Assessment & Plan: Continue zosyn. (9) Seizure Assessment & Plan: Continue Dilantin. Assessment/Plan Discharge planning: Home with home health today Hank Toure MD Mar 27, 2018 16:43
[2018-03-27] MEDS ORDERED: HydrOXYzine tab 25 MG TAB ORAL PRN (16:45)
--- NOTE | 2018-03-28 11:37 | Discharge Summary ---
Discharge Summary Discharge Summary _ DATE OF ADMISSION: 03/21/2018 DATE OF DISCHARGE: 03/27/2018 REASON FOR ADMISSION: 83 years old female with past medical history significant for asthma/COPD, hypertension, coronary artery disease, seizure disorder, CVA, GERD presented with cough and congestion as well as shortness of breath. Shortness of breath got progressively worse over the last 4 days. Patient tried home inhalers and nebulizing machine without relief. Upon examination patient demonstrated expiratory wheezes, moderate respiratory distress, and use of accessory muscles. Blood pressure was elevated 188/94. Laboratory workup revealed no leukocytosis stable hemoglobin and hematocrit ECG revealed normal sinus rhythm, no acute ischemic changes. Chest x-ray revealed no acute cardiopulmonary pathology. Patient admitted with diagnoses of acute respiratory failure, asthma exacerbation, hypertension, coronary artery disease, cerebrovascular disease seizure disorder [facility]: pulmonary Dr. Juares psychiatrist [facility]: Patient admitted. Irrigation System Operator closely followed. Supplemental oxygen provided as needed to keep pulse oximetry above 92%. Pulmonary toilet provided around the clock and as needed. Patient started on IV steroids with gradual tapering. Patient started on empiric antibiotic. Trial of theophylline was initiated. Sputum culture was negative , blood culture were negative . Follow-up chest x-ray revealed no acute cardiopulmonary pathology . Patient provided with antitussive as needed. Lidocaine inhalation as needed was added to oral antitussive for persistent cough. DVT and GI prophylaxis provided. Antiplatelet therapy with Plavix was continued. Blood pressure was managed with calcium channel steph and clonidine on as needed basis. Blood pressure stabilized. Bowel regimen instituted. Supportive care provided. Seizure precautions were maintained. No evidence of seizure activity while in the hospital. Dilantin was continued. Psychiatrist seen and evaluated the patient , and diagnosed patient with major depressive disorder and anxiety disorder . Patient was started on Prozac. Patient clinically improved and was stable for discharge home with home health services to follow FINAL DIAGNOSES: Acute respiratory failure Acute asthma exacerbation Hypertension Coronary artery disease GERD Seizure disorder Cerebrovascular disease with history of CVA Major depressive disorder Anxiety DISCHARGE MEDICATIONS: See Medication Reconciliation list. DISCHARGE INSTRUCTIONS: Patient was discharged home with home health services; follow-up with primary care provider in one week I have been assigned to dictate discharge summary for this account. I was not involved in the patient's management. Jessica Landry NP Mar 28, 2018 11:36
== END 2018-03-27 18:10 | disposition home health service (06) | DRG 202 ==
LOC: EDBD 20:40 → EMR 21:00 → 2W 21:41 → EDBEDREQ 21:43 → 2W 03-22 02:03 → 4W 03-23 12:30
DX: J45.901 Unspecified asthma with (acute) exacerbation (principal); J96.00 Acute respiratory failure, unspecified whether with hypoxia or hypercapnia; Z88.1 Allergy status to other antibiotic agents; G40.909 Epilepsy, unspecified, not intractable, without status epilepticus; I10 Essential (primary) hypertension; I25.10 Atherosclerotic heart disease of native coronary artery without angina pectoris; Z95.5 Presence of coronary angioplasty implant and graft; E78.00 Pure hypercholesterolemia, unspecified; K21.9 Gastro-esophageal reflux disease without esophagitis; Z86.73 Personal history of transient ischemic attack (TIA), and cerebral infarction without residual deficits; F41.9 Anxiety disorder, unspecified; F32.9 Major depressive disorder, single episode, unspecified; Z66 Do not resuscitate
CPT/HCPCS: 36415; 71045; 80053; 81003; 85025; 87040; 87070; 87081; 87205; 93005; 94640; 94664; 99285; J2405; J7620

== ENCOUNTER 2018-05-22 03:15 | Inpatient (IN) | payer MEDICARE, MEDICAID ==
[~2018-05-22] VITALS: Ht 147.3 cm; Wt 54.4 kg
[~2018-05-22 03:15] MED LIST changes: +DIOVAN80 MG ORAL; +ISOSORBIDE1 G1 MC; +LABETALOL H5 MG/1 M1 IV; +LEVAQUIN500 MG ORAL; +LIPITOR80 MG ORAL; +LORATADINE10 M1 PO; +MEDROL4 M1 PO; +MONTELUKAST SODI4 M1 ORAL; +PROMETHAZINE-C118 M1 ORAL; +PROTONIX40 MG ORAL
[2018-05-22] MEDS ORDERED: Sodium Chloride 500ML 500 ML IV ONE (03:22)
[2018-05-22] MEDS ORDERED: Solu-MEDROL 125mg Inj IVP ONE (03:30)
[2018-05-22 03:55] LABS: BASOPHILS % (AUTO) 0.7 % (0.0-2.0); EOSINOPHILS % (AUTO) 5.8 % (0.0-3.0); HEMATOCRIT 40.3 % (37.0-47.0); HEMOGLOBIN 13.8 G/DL (12.0-16.0); LYMPHOCYTES % (AUTO) 27.3 % (20.0-45.0); MEAN CORPUSCULAR VOLUME 91 FL (80-99); MONOCYTES % (AUTO) 9.7 % (1.0-10.0); NEUTROPHILS % (AUTO) 56.5 % (45.0-75.0); PLATELET COUNT 225 K/UL (150-450); RED BLOOD COUNT 4.45 M/UL (4.20-5.40); RED CELL DISTRIBUTION WIDTH 11.9 % (11.6-14.8); WHITE BLOOD COUNT 7.2 K/UL (4.8-10.8)
[2018-05-22 03:57] VITALS: BP 179/64
[2018-05-22] MEDS: Albuterol ud Inhalation HHN SCH ×2 (04:01→04:02)
[2018-05-22] MEDS: Ipratropium 0.02% Inh Soln 2.5ml UD HHN SCH ×2 (04:01→04:02)
[2018-05-22 04:06] LABS: ANION GAP 10 mmol/L (5-15); BLOOD UREA NITROGEN 29 mg/dL (7-18); CALCIUM 9.2 MG/DL (8.5-10.1); CARBON DIOXIDE 28 MMOL/L (21-32); CHLORIDE 104 MMOL/L (98-107); CREATININE 0.7 MG/DL (0.55-1.30); POTASSIUM 3.5 MMOL/L (3.5-5.1); SODIUM 142 MMOL/L (136-145)
--- NOTE | 2018-05-22 04:09 | Emergency Room Report ---
History of Present Illness General Chief Complaint: Dyspnea/Respdistress Source: Patient, EMS Present Illness HPI 83-year-old female presents to ED for evaluation for shortness of breath. History of asthma. Per EMS patient was wheezing and he started breathing treatments. Patient states she feels a little better but still feels very short of breath. States symptoms started yesterday. States she's been using her inhaler at home without significant relief. Denies cough. Denies chest pain. Denies fevers or chills. Denies sick contacts or recent travel. No other aggravating relieving factors. Denies any other associated symptoms Allergies: Coded Allergies: VANCOMYCIN (Verified Allergy, Unknown, red eyes, itchying, 10/10/16) Uncoded Allergies: Canned Food (Allergy, Unknown, 03/22/18) Nausea/Vomitting/Indigestion Patient History Past Medical History: HTN, asthma, CVA/TIA Past Surgical History: none Pertinent Family History: none Social History: Denies: smoking, alcohol use, drug use Now: No Immunizations: UTD Reviewed Nursing Documentation: PMH: Agreed; PSxH: Agreed Nursing Documentation-PMH Hx Cardiac Problems: Yes Hx Hypertension: Yes Hx Asthma: Yes Hx Cancer: No Hx Gastrointestinal Problems: No Hx Neurological Problems: Yes Hx Cerebrovascular Accident: Yes Hx Seizures: Yes Review of Systems All Other Systems: negative except mentioned in HPI Physical Exam Vital Signs Date Time Temp Pulse Resp B/P (MAP) Pulse Ox O2 Delivery O2 Flow Rate FiO2 05/22/18 03:15 80 22 Room Air 05/22/18 03:15 97.8 188/86 91 97.9 05/22/18 03:45 21 Sp02 EP Interpretation: reviewed, normal General Appearance: alert, GCS 15, non-toxic, mild distress Head: normocephalic, atraumatic Eyes: bilateral eye normal inspection, bilateral eye PERRL ENT: hearing grossly normal, normal pharynx, no angioedema, normal voice Neck: full range of motion, supple/symm/no masses Respiratory: chest non-tender, normal breath sounds, speaking full sentences, wheezing Cardiovascular #1: regular rate, rhythm, no edema Cardiovascular #2: 2+ carotid (R), 2+ carotid (L), 2+ radial (R), 2+ radial (L) , 2+ dorsalis pedis (R), 2+ dorsalis pedis (L) Gastrointestinal: normal bowel sounds, non tender, soft, non-distended, no guarding, no rebound Rectal: deferred Genitourinary: normal inspection, no CVA tenderness Musculoskeletal: back normal, gait/station normal, normal range of motion, non- tender Neurologic: alert, oriented x3, responsive, motor strength/tone normal, sensory intact, speech normal Psychiatric: judgement/insight normal, memory normal, mood/affect normal, no suicidal/homicidal ideation Reflexes: 3+ bicep (R), 3+ bicep (L), 3+ tricep (R), 3+ tricep (L), 3+ knee (R) , 3+ knee (L) Skin: normal color, no rash, warm/dry, well hydrated Lymphatic: no adenopathy Medical Decision Making Diagnostic Impression: Primary Impression: Acute asthma exacerbation Qualified Codes: J45.901 - Unspecified asthma with (acute) exacerbation ER Course Hospital Course 83-year-old F presenting to ED with SOB. h/o asthma Differential diagnoses include: Pneumonia, CHF exacerbation, pneumothorax, fluid overload Clinical course Patient placed on stretcher. 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 After initial history and physical, I ordered nebulizer treatments. I ordered labs, IV fluids, EKG, chest x-ray, blood cultures, UA. Labs - no leukocytosis noted, hemoglobin/hematocrit stable, electrolytes okay, lactate okay, troponins negative ABG - no acidosis, no hypoxemia or hypercapnia CXR - hyperinflated lungs. no infiltrates EKG - NSR, no acute ischemic changes interpreted by me patient continues to feel SOB. given magnesium Case discussed with Dr. Garcia and he agreed to the patient to his service for further care and support I feel this is a highly complex case requiring extensive working including EKG/ Rhythm strip, Xray/CT/US, Blood/urine lab work, repeat exams while in ED, and administration of strong opiates/narcotics for pain control, admission to hospital or close patient follow up. Diagnosis - acute asthma exacerbation Patient admitted to telemetry in serious condition Labs Test 05/22/18 03:29 05/22/18 03:30 Arterial Blood pH 7.404 (7.350-7.450) Arterial Blood Partial Pressure CO2 46.8 mmHg (35.0-45.0) Arterial Blood Partial Pressure O2 213.0 mmHg (75.0-100.0) Arterial Blood HCO3 28.6 mmol/L (22.0-26.0) Arterial Blood Oxygen Saturation 99.0 % (92.0-98.0) Arterial Blood Base Excess 3.2 Mk Test Positive White Blood Count 7.2 K/UL (4.8-10.8) Red Blood Count 4.45 M/UL (4.20-5.40) Hemoglobin 13.8 G/DL (12.0-16.0) Hematocrit 40.3 % (37.0-47.0) Mean Corpuscular Volume 91 FL (80-99) Mean Corpuscular Hemoglobin 31.0 PG (27.0-31.0) Mean Corpuscular Hemoglobin Concent 34.2 G/DL (32.0-36.0) Red Cell Distribution Width 11.9 % (11.6-14.8) Platelet Count 225 K/UL (150-450) Mean Platelet Volume 6.4 FL (6.5-10.1) Neutrophils (%) (Auto) 56.5 % (45.0-75.0) Lymphocytes (%) (Auto) 27.3 % (20.0-45.0) Monocytes (%) (Auto) 9.7 % (1.0-10.0) Eosinophils (%) (Auto) 5.8 % (0.0-3.0) Basophils (%) (Auto) 0.7 % (0.0-2.0) Sodium Level 142 MMOL/L (136-145) Potassium Level 3.5 MMOL/L (3.5-5.1) Chloride Level 104 MMOL/L (98-107) Carbon Dioxide Level 28 MMOL/L (21-32) Anion Gap 10 mmol/L (5-15) Blood Urea Nitrogen 29 mg/dL (7-18) Creatinine 0.7 MG/DL (0.55-1.30) Estimat Glomerular Filtration Rate mL/min (>60) Glucose Level 124 MG/DL (74-106) Lactic Acid Level 0.50 mmol/L (0.4-2.0) Calcium Level 9.2 MG/DL (8.5-10.1) Total Bilirubin 0.2 MG/DL (0.2-1.0) Aspartate Amino Transf (AST/SGOT) 14 U/L (15-37) Alanine Aminotransferase (ALT/SGPT) 25 U/L (12-78) Alkaline Phosphatase 101 U/L (46-116) Total Creatine Kinase 145 U/L (26-308) Creatine Kinase MB 2.3 NG/ML (0.0-3.6) Creatine Kinase MB Relative Index 1.5 Troponin I 0.006 ng/mL (0.000-0.056) Pro-B-Type Natriuretic Peptide 51 pg/mL (0-125) Total Protein 7.4 G/DL (6.4-8.2) Albumin 3.4 G/DL (3.4-5.0) Globulin 4.0 g/dL Albumin/Globulin Ratio 0.9 (1.0-2.7) EKG Diagnostic Results Rate: normal Rhythm: NSR ST Segments: no acute changes ASA given to the pt in ED: No Rhythm Strip Diag. Results EP Interpretation: yes Rhythm: NSR, no PVC's, no ectopy Chest X-Ray Diagnostic Results Chest X-Ray Diagnostic Results : Chest X-Ray Ordered: Yes # of Views/Limited/Complete: 1 View Indication: Shortness of Breath EP Interpretation: Yes Interpretation: no consolidation, no effusion, no pneumothorax, no acute cardiopulmonary disease Impression: No acute disease Electronically Signed by: Electronically signed by Bhavesh Roldan MD Last Vital Signs Date Time Temp Pulse Resp B/P (MAP) Pulse Ox O2 Delivery O2 Flow Rate FiO2 05/22/18 04:04 74 20 Room Air 21 05/22/18 03:57 98.0 179/64 100 98.0 Status: improved Disposition: ADMITTED INPATIENT Condition: Serious Referrals: NON PHYSICIAN (PCP) Bhavesh Roldan MD May 22, 2018 04:09
[2018-05-22 04:33] LABS: ALANINE AMINOTRANSFERASE 25 U/L (12-78); ALBUMIN 3.4 G/DL (3.4-5.0); ALBUMIN/GLOBULIN RATIO 0.9 (1.0-2.7); ALKALINE PHOSPHATASE 101 U/L (46-116); ASPARTATE AMINO TRANSFERASE 14 U/L (15-37); BILIRUBIN,TOTAL 0.2 MG/DL (0.2-1.0); CKMB 2.3 NG/ML (0.0-3.6); CREATINE KINASE 145 U/L (26-308)
[2018-05-22 04:40] VITALS: BP 194/112
[2018-05-22] MEDS ORDERED: Promethazine/Codeine 5ml UD ORAL PRN ×2 (07:30)
[2018-05-22] MEDS ORDERED: Albuterol/Ipratropium 3ml neb HHN PRN ×2 (07:30→19:30)
[2018-05-22] MEDS ORDERED: LORazepam Inj 2mg/ml 1ml IV PRN ×2 (07:30→18:00)
[2018-05-22] MEDS ORDERED: Nitroglycerin Subl 0.4mg tab SL PRN ×2 (07:30→17:30)
[2018-05-22] MEDS ORDERED: Morphine Sulfate 2mg/ml Inj IVP PRN ×2 (07:30→18:00)
[2018-05-22] MEDS ORDERED: Ketorolac 30mg Inj IV PRN ×2 (07:30→18:00)
[2018-05-22 08:00] VITALS: BP 172/90
[2018-05-22] MEDS ORDERED: HydrOXYzine tab 25mg tab ORAL PRN ×2 (08:15→18:00)
[2018-05-22] MEDS ORDERED: Norco 5mg/325mg tab ORAL PRN ×2 (08:15→18:00)
[2018-05-22] MEDS ORDERED: Lyrica 50mg cap ORAL SCH (09:00)
[2018-05-22] MEDS ORDERED: Montelukast 10mg tablet ORAL SCH (09:00)
[2018-05-22] MEDS ORDERED: Theophylline ER 100mg ORAL SCH (09:00)
[2018-05-22] MEDS ORDERED: Piperacillin/Tazobactam 3.375 GM in D5W 110 ML IVPB SCH (09:00)
[2018-05-22] MEDS ORDERED: Heparin 5000 units/ml inj SUBQ SCH (09:00)
--- NOTE | 2018-05-22 10:22 | Consultation ---
History of Present Illness General Date patient seen: May 22, 2018 Chief Complaint: Dyspnea/Respdistress Present Illness HPI 83-year-old female with history of HTN, asthma, CVA/TIA presents to ED for evaluation for shortness of breath. Per EMS patient was wheezing and he started breathing treatments. Patient states she feels a little better but still feels very short of breath. States she's been using her inhaler at home without significant relief. Denies cough. Denies chest pain. Denies fevers or chills. Denies sick contacts or recent travel. Pt is admitted to telemetry for further treatment. Allergies: Coded Allergies: VANCOMYCIN (Verified Allergy, Unknown, red eyes, itchying, 10/10/16) Uncoded Allergies: Canned Food (Allergy, Unknown, 03/22/18) Nausea/Vomitting/Indigestion Medication History Scheduled Albuterol Sulfate (Ventolin Hfa), 1 PUFF INH EVERY 6 HOURS Amlodipine Besylate* (Amlodipine Besylate*), 2.5 MG ORAL DAILY, (Reported) Atorvastatin (Lipitor), 40 MG ORAL DAILY, (Reported) Clopidogrel* (Clopidogrel*), 75 MG ORAL DAILY, (Reported) Dexlansoprazole (Dexilant), 60 MG ORAL QHS, (Reported) Dexlansoprazole (Dexilant), 60 MG ORAL DAILY, (Reported) Fluoxetine Hcl* (Prozac*), 20 MG ORAL DAILY, (Reported) Fluticasone/Salmeterol (Advair 250-50 Diskus), 1 PUFF INH EVERY 12 HOURS Labetalol Hcl* (Labetalol Hcl*), 100 MG IV DAILY, (Reported) Levocetirizine Dihydrochloride (Levocetirizine Dihydrochloride), 5 MG ORAL DAILY , (Reported) Levofloxacin* (Levaquin*), 500 MG ORAL DAILY Loratadine (Loratadine), 10 MG PO DAILY, (Reported) Montelukast Sodium (Montelukast Sodium), 10 MG ORAL DAILY, (Reported) Montelukast Sodium* (Montelukast Sodium*), 10 MG ORAL DAILY, (Reported) Pantoprazole* (Protonix*), 40 MG ORAL DAILY, (Reported) Phenytoin Sodium Extended* (Phenytoin Sodium Extended*), 100 MG ORAL DAILY, ( Reported) Phenytoin Sodium Extended* (Phenytoin Sodium Extended*), 100 MG ORAL BEDTIME, ( Reported) Pregabalin (Lyrica), 50 MG ORAL Q12HR, (Reported) Valsartan/Hydrochlorothiazide 160-12.5 (Valsartan-Hctz 160-12.5 Mg Tab), 1 TAB ORAL Q12HR, (Reported) Scheduled PRN Codeine/Promethazine Hcl* (Promethazine-Codeine Syrup*), 5 ML ORAL Q8HR PRN for For Cough, (Reported) Hydroxyzine HCl (Hydroxyzine HCl), 25 MG ORAL Q6H PRN Miscellaneous Medications Isosorbide (Isosorbide), 30 MG MC, (Reported) Methylprednisolone (Medrol), 4 MG PO, (Reported) Prednisone (Prednisone), 40 MG PO, (Reported) Patient History Healthcare decision maker Resuscitation status Full Code Advanced Directive on File Past Medical/Surgical History Past Medical/Surgical History: (1) Cerebral vascular disease (2) Seizure disorder (3) CAD (coronary artery disease) (4) Hemorrhagic stroke Review of Systems Respiratory: Reports: shortness of breath, wheezing All Other Systems: negative except mentioned in HPI Physical Exam General Appearance: WD/WN Lines, tubes and drains: peripheral HEENT: normocephalic, atraumatic Neck: non-tender, normal alignment Respiratory/Chest: chest wall non-tender, lungs clear, decreased breath sounds , expiratory wheezing, inspiratory wheezing Cardiovascular/Chest: normal peripheral pulses, normal rate Abdomen: normal bowel sounds Genitourinary/Rectal: normal genital exam Extremities: normal range of motion Last 24 Hour Vital Signs Date Time Temp Pulse Resp B/P (MAP) Pulse Ox O2 Delivery O2 Flow Rate FiO2 05/22/18 09:23 82 172/90 05/22/18 08:00 97.7 82 20 172/90 (117) 94 97.7 05/22/18 06:49 Nasal Cannula 2.0 05/22/18 04:59 98.0 72 20 179/64 100 Room Air 21 98.0 05/22/18 04:40 96.8 80 24 194/112 (139) 94 96.8 05/22/18 04:40 Nasal Cannula 2.0 05/22/18 04:20 82 20 100 Room Air 21 05/22/18 04:10 80 20 98 Room Air 21 05/22/18 04:10 80 20 99 Room Air 21 05/22/18 04:04 74 20 Room Air 21 05/22/18 03:57 98.0 72 22 179/64 100 Simple Mask 98.0 05/22/18 03:55 76 20 97 Room Air 21 05/22/18 03:55 76 20 98 Room Air 21 05/22/18 03:45 74 20 95 Room Air 21 05/22/18 03:15 97.8 80 22 188/86 91 Room Air 97.9 05/22/18 03:15 80 22 Room Air Intake and Output 05/21/18 05/22/18 19:00 07:00 Output Total 0 ml Balance 0 ml Output Urine Total 0 ml Laboratory Tests Test 05/22/18 03:29 05/22/18 03:30 Arterial Blood pH 7.404 (7.350-7.450) Arterial Blood Partial Pressure CO2 46.8 mmHg (35.0-45.0) H Arterial Blood Partial Pressure O2 213.0 mmHg (75.0-100.0) H Arterial Blood HCO3 28.6 mmol/L (22.0-26.0) H Arterial Blood Oxygen Saturation 99.0 % (92.0-98.0) H Arterial Blood Base Excess 3.2 Mk Test Positive White Blood Count 7.2 K/UL (4.8-10.8) Red Blood Count 4.45 M/UL (4.20-5.40) Hemoglobin 13.8 G/DL (12.0-16.0) Hematocrit 40.3 % (37.0-47.0) Mean Corpuscular Volume 91 FL (80-99) Mean Corpuscular Hemoglobin 31.0 PG (27.0-31.0) Mean Corpuscular Hemoglobin Concent 34.2 G/DL (32.0-36.0) Red Cell Distribution Width 11.9 % (11.6-14.8) Platelet Count 225 K/UL (150-450) Mean Platelet Volume 6.4 FL (6.5-10.1) L Neutrophils (%) (Auto) 56.5 % (45.0-75.0) Lymphocytes (%) (Auto) 27.3 % (20.0-45.0) Monocytes (%) (Auto) 9.7 % (1.0-10.0) Eosinophils (%) (Auto) 5.8 % (0.0-3.0) H Basophils (%) (Auto) 0.7 % (0.0-2.0) Sodium Level 142 MMOL/L (136-145) Potassium Level 3.5 MMOL/L (3.5-5.1) Chloride Level 104 MMOL/L (98-107) Carbon Dioxide Level 28 MMOL/L (21-32) Anion Gap 10 mmol/L (5-15) Blood Urea Nitrogen 29 mg/dL (7-18) H Creatinine 0.7 MG/DL (0.55-1.30) Estimat Glomerular Filtration Rate mL/min (>60) Glucose Level 124 MG/DL (74-106) H Lactic Acid Level 0.50 mmol/L (0.4-2.0) Calcium Level 9.2 MG/DL (8.5-10.1) Total Bilirubin 0.2 MG/DL (0.2-1.0) Aspartate Amino Transf (AST/SGOT) 14 U/L (15-37) L Alanine Aminotransferase (ALT/SGPT) 25 U/L (12-78) Alkaline Phosphatase 101 U/L (46-116) Total Creatine Kinase 145 U/L (26-308) Creatine Kinase MB 2.3 NG/ML (0.0-3.6) Creatine Kinase MB Relative Index 1.5 Troponin I 0.006 ng/mL (0.000-0.056) Pro-B-Type Natriuretic Peptide 51 pg/mL (0-125) Total Protein 7.4 G/DL (6.4-8.2) Albumin 3.4 G/DL (3.4-5.0) Globulin 4.0 g/dL Albumin/Globulin Ratio 0.9 (1.0-2.7) L Height (Feet): 4 Height (Inches): 10.00 Weight (Pounds): 120 Medications Current Medications Medications (Trade) Dose Ordered Sig/[place] Route PRN Reason Start Time Stop Time Status Last Admin Dose Admin Acetaminophen (Tylenol) 650 mg Q6H PRN ORAL Mild Pain/Temp > 100.5 05/22/18 08:15 06/21/18 08:14 Acetaminophen/ Hydrocodone Bitart ([place] 5/325) 1 tab Q6H PRN ORAL Breakthrough Pain 05/22/18 08:15 05/29/18 08:14 Albuterol/ Ipratropium (Albuterol/ Ipratropium) 3 ml Q4H PRN HHN dyspnea 05/22/18 07:30 05/27/18 07:29 Albuterol/ Ipratropium (Albuterol/ Ipratropium) 3 ml Q8HRT HHN 05/22/18 15:00 05/27/18 14:59 Amlodipine Besylate (Norvasc) 2.5 mg DAILY ORAL 05/22/18 09:00 06/21/18 08:59 05/22/18 09:23 Atorvastatin Calcium (Lipitor) 40 mg QHS ORAL 05/22/18 21:00 06/21/18 20:59 Clonidine HCl (Catapres Tab) 0.1 mg Q4H PRN ORAL For High Blood Pressure 05/22/18 08:15 06/21/18 08:14 Clopidogrel Bisulfate (Plavix) 75 mg DAILY ORAL 05/22/18 09:00 06/21/18 08:59 05/22/18 09:23 Dextrose (Dextrose 50%) 25 ml STAT PRN IV Hypoglycemia 05/22/18 07:30 06/21/18 07:29 Dextrose (Dextrose 50%) 50 ml STAT PRN IV Hypoglycemia 05/22/18 07:45 06/21/18 07:44 Heparin Sodium (Porcine) (Heparin 5000 units/ml) 5,000 units EVERY 12 HOURS SUBQ 05/22/18 09:00 06/21/18 08:59 05/22/18 09:25 Hydroxyzine HCl (Atarax) 25 mg Q6H PRN ORAL Itching 05/22/18 08:15 06/21/18 08:14 Ketorolac Tromethamine (Toradol 30mg) 30 mg Q8H PRN IV moderate pain 4-6 05/22/18 07:30 05/27/18 07:29 Lorazepam (Ativan 2mg/ml 1ml) 0.5 mg Q4H PRN IV For Anxiety 05/22/18 07:30 05/29/18 07:29 Methylprednisolone Sodium Succinate (Solu-MEDROL) 60 mg EVERY 6 HOURS IV 05/22/18 12:00 06/21/18 11:59 Montelukast Sodium (Singulair) 10 mg DAILY ORAL 05/22/18 09:00 06/21/18 08:59 05/22/18 09:22 Morphine Sulfate (Morphine Sulfate) 2 mg Q4H PRN IVP severe pain 7-10 05/22/18 07:30 05/29/18 07:29 Nitroglycerin (Ntg) 0.4 mg Q5M X 3 DOSES PRN SL Prn Chest Pain 05/22/18 07:30 06/21/18 07:29 Non-Formulary Medication (Non-Formulary Med) 1 ea DAILY ORAL 05/22/18 09:00 06/21/18 08:59 UNV Ondansetron HCl (Zofran) 4 mg Q6H PRN IVP Nausea & Vomiting 05/22/18 07:30 06/21/18 07:29 Pantoprazole (Protonix) 40 mg DAILY ORAL 05/22/18 09:00 06/21/18 08:59 05/22/18 09:22 Phenytoin (Dilantin) 100 mg BEDTIME ORAL 05/22/18 21:00 06/21/18 20:59 Piperacillin Sod/ Tazobactam Sod 3.375 gm/Dextrose 110 ml @ 27.5 mls/hr EVERY 8 HOURS IVPB 05/22/18 09:00 05/27/18 08:59 05/22/18 09:23 Pregabalin (Lyrica) 50 mg Q12HR ORAL 05/22/18 09:00 06/21/18 08:59 05/22/18 09:22 Promethazine HCl/ Codeine (Phenergan with Codeine) 5 ml Q6H PRN ORAL cough 05/22/18 07:30 06/21/18 07:29 Temazepam (Restoril) 15 mg HSPRN PRN ORAL Insomnia 05/22/18 07:30 05/29/18 07:29 Theophylline (Fabrice-Dur) 100 mg EVERY 12 HOURS ORAL 05/22/18 09:00 06/21/18 08:59 05/22/18 09:22 Assessment/Plan Problem List: (1) Acute respiratory failure ICD Codes: J96.00 - Acute respiratory failure, unspecified whether with hypoxia or hypercapnia SNOMED: 99374289 (2) Acute asthma exacerbation ICD Codes: J45.901 - Unspecified asthma with (acute) exacerbation SNOMED: 728445198 Qualifiers: Qualified Codes: J45.901 - Unspecified asthma with (acute) exacerbation (3) CAD (coronary artery disease) ICD Codes: I25.10 - Atherosclerotic heart disease of [place] coronary artery without angina pectoris SNOMED: 11579581 (4) Cerebral vascular disease ICD Codes: I67.9 - Cerebrovascular disease, unspecified SNOMED: 74919571 Assessment/Plan respiratory treatment iv steroids check sputum check electrolytes iv abx dvt prophylaxis watch BP symptomatic treatment Luis A Juares MD May 22, 2018 10:22
--- NOTE | 2018-05-22 10:26 | Diagnostic Imaging Report ---
Indication: Shortness of breath Technique: One view of the chest Comparison: 03/23/2018 Findings: There is some scarring in the left lung apex. The heart size is normal. There is mild blunting of the bilateral costophrenic sulci. The lungs and pleural spaces otherwise clear. Impression: Possible small bilateral pleural effusions No acute process otherwise
--- NOTE | 2018-05-22 11:05 | Consultation ---
History of Present Illness General Date patient seen: May 22, 2018 Chief Complaint: Dyspnea/Respdistress Present Illness HPI 83-year-old female presents to ED for evaluation for shortness of breath. the pt has hx of anxiety and depression. the pt is A[place]i speaking understands Sami. the pt has anxiety and forgetfulness. Allergies: Coded Allergies: VANCOMYCIN (Verified Allergy, Unknown, red eyes, itchying, 10/10/16) Uncoded Allergies: Canned Food (Allergy, Unknown, 03/22/18) Nausea/Vomitting/Indigestion Medication History Scheduled Albuterol Sulfate (Ventolin Hfa), 1 PUFF INH EVERY 6 HOURS Amlodipine Besylate* (Amlodipine Besylate*), 2.5 MG ORAL DAILY, (Reported) Atorvastatin (Lipitor), 40 MG ORAL DAILY, (Reported) Clopidogrel* (Clopidogrel*), 75 MG ORAL DAILY, (Reported) Dexlansoprazole (Dexilant), 60 MG ORAL QHS, (Reported) Dexlansoprazole (Dexilant), 60 MG ORAL DAILY, (Reported) Fluoxetine Hcl* (Prozac*), 20 MG ORAL DAILY, (Reported) Fluticasone/Salmeterol (Advair 250-50 Diskus), 1 PUFF INH EVERY 12 HOURS Labetalol Hcl* (Labetalol Hcl*), 100 MG IV DAILY, (Reported) Levocetirizine Dihydrochloride (Levocetirizine Dihydrochloride), 5 MG ORAL DAILY , (Reported) Levofloxacin* (Levaquin*), 500 MG ORAL DAILY Loratadine (Loratadine), 10 MG PO DAILY, (Reported) Montelukast Sodium (Montelukast Sodium), 10 MG ORAL DAILY, (Reported) Montelukast Sodium* (Montelukast Sodium*), 10 MG ORAL DAILY, (Reported) Pantoprazole* (Protonix*), 40 MG ORAL DAILY, (Reported) Phenytoin Sodium Extended* (Phenytoin Sodium Extended*), 100 MG ORAL DAILY, ( Reported) Phenytoin Sodium Extended* (Phenytoin Sodium Extended*), 100 MG ORAL BEDTIME, ( Reported) Pregabalin (Lyrica), 50 MG ORAL Q12HR, (Reported) Valsartan/Hydrochlorothiazide 160-12.5 (Valsartan-Hctz 160-12.5 Mg Tab), 1 TAB ORAL Q12HR, (Reported) Scheduled PRN Codeine/Promethazine Hcl* (Promethazine-Codeine Syrup*), 5 ML ORAL Q8HR PRN for For Cough, (Reported) Hydroxyzine HCl (Hydroxyzine HCl), 25 MG ORAL Q6H PRN Miscellaneous Medications Isosorbide (Isosorbide), 30 MG MC, (Reported) Methylprednisolone (Medrol), 4 MG PO, (Reported) Prednisone (Prednisone), 40 MG PO, (Reported) Patient History Limited by: medical condition History Provided By: Patient, Medical Record, PMD Healthcare decision maker Resuscitation status Full Code Advanced Directive on File Past Medical/Surgical History Past Medical/Surgical History: (1) HTN (hypertension) (2) Acute respiratory failure (3) GERD (gastroesophageal reflux disease) (4) Hemoptysis (5) Hypercholesteremia (6) Bronchitis (7) COPD exacerbation (8) Acute asthma exacerbation (9) CAD (coronary artery disease) (10) Seizure disorder (11) Hemorrhagic stroke (12) Cerebral vascular disease Review of Systems Psychiatric: Reports: prior hx, anxiety, depressed feelings, emotional problems Physical Exam General Appearance: alert, mild distress Neurologic: oriented x 3, responsive, depressed affect Last 24 Hour Vital Signs Date Time Temp Pulse Resp B/P (MAP) Pulse Ox O2 Delivery O2 Flow Rate FiO2 05/22/18 10:55 76 20 Nasal Cannula 4.0 36 05/22/18 10:54 76 20 98 Nasal Cannula 4.0 36 05/22/18 09:23 82 172/90 05/22/18 08:00 97.7 82 20 172/90 (117) 94 97.7 05/22/18 08:00 81 05/22/18 06:49 Nasal Cannula 2.0 05/22/18 04:59 98.0 72 20 179/64 100 Room Air 21 98.0 05/22/18 04:40 96.8 80 24 194/112 (139) 94 96.8 05/22/18 04:40 Nasal Cannula 2.0 05/22/18 04:20 82 20 100 Room Air 21 05/22/18 04:10 80 20 98 Room Air 21 05/22/18 04:10 80 20 99 Room Air 21 05/22/18 04:04 74 20 Room Air 21 05/22/18 03:57 98.0 72 22 179/64 100 Simple Mask 98.0 05/22/18 03:55 76 20 97 Room Air 21 05/22/18 03:55 76 20 98 Room Air 21 05/22/18 03:45 74 20 95 Room Air 21 05/22/18 03:15 97.8 80 22 188/86 91 Room Air 97.9 05/22/18 03:15 80 22 Room Air Intake and Output 05/21/18 05/22/18 19:00 07:00 Output Total 0 ml Balance 0 ml Output Urine Total 0 ml Laboratory Tests Test 05/22/18 03:29 05/22/18 03:30 Arterial Blood pH 7.404 (7.350-7.450) Arterial Blood Partial Pressure CO2 46.8 mmHg (35.0-45.0) H Arterial Blood Partial Pressure O2 213.0 mmHg (75.0-100.0) H Arterial Blood HCO3 28.6 mmol/L (22.0-26.0) H Arterial Blood Oxygen Saturation 99.0 % (92.0-98.0) H Arterial Blood Base Excess 3.2 Mk Test Positive White Blood Count 7.2 K/UL (4.8-10.8) Red Blood Count 4.45 M/UL (4.20-5.40) Hemoglobin 13.8 G/DL (12.0-16.0) Hematocrit 40.3 % (37.0-47.0) Mean Corpuscular Volume 91 FL (80-99) Mean Corpuscular Hemoglobin 31.0 PG (27.0-31.0) Mean Corpuscular Hemoglobin Concent 34.2 G/DL (32.0-36.0) Red Cell Distribution Width 11.9 % (11.6-14.8) Platelet Count 225 K/UL (150-450) Mean Platelet Volume 6.4 FL (6.5-10.1) L Neutrophils (%) (Auto) 56.5 % (45.0-75.0) Lymphocytes (%) (Auto) 27.3 % (20.0-45.0) Monocytes (%) (Auto) 9.7 % (1.0-10.0) Eosinophils (%) (Auto) 5.8 % (0.0-3.0) H Basophils (%) (Auto) 0.7 % (0.0-2.0) Sodium Level 142 MMOL/L (136-145) Potassium Level 3.5 MMOL/L (3.5-5.1) Chloride Level 104 MMOL/L (98-107) Carbon Dioxide Level 28 MMOL/L (21-32) Anion Gap 10 mmol/L (5-15) Blood Urea Nitrogen 29 mg/dL (7-18) H Creatinine 0.7 MG/DL (0.55-1.30) Estimat Glomerular Filtration Rate mL/min (>60) Glucose Level 124 MG/DL (74-106) H Lactic Acid Level 0.50 mmol/L (0.4-2.0) Calcium Level 9.2 MG/DL (8.5-10.1) Total Bilirubin 0.2 MG/DL (0.2-1.0) Aspartate Amino Transf (AST/SGOT) 14 U/L (15-37) L Alanine Aminotransferase (ALT/SGPT) 25 U/L (12-78) Alkaline Phosphatase 101 U/L (46-116) Total Creatine Kinase 145 U/L (26-308) Creatine Kinase MB 2.3 NG/ML (0.0-3.6) Creatine Kinase MB Relative Index 1.5 Troponin I 0.006 ng/mL (0.000-0.056) Pro-B-Type Natriuretic Peptide 51 pg/mL (0-125) Total Protein 7.4 G/DL (6.4-8.2) Albumin 3.4 G/DL (3.4-5.0) Globulin 4.0 g/dL Albumin/Globulin Ratio 0.9 (1.0-2.7) L Height (Feet): 4 Height (Inches): 10.00 Weight (Pounds): 120 Medications Current Medications Medications (Trade) Dose Ordered Sig/[place] Route PRN Reason Start Time Stop Time Status Last Admin Dose Admin Acetaminophen (Tylenol) 650 mg Q6H PRN ORAL Mild Pain/Temp > 100.5 05/22/18 08:15 06/21/18 08:14 Acetaminophen/ Hydrocodone Bitart ([place] 5/325) 1 tab Q6H PRN ORAL Breakthrough Pain 05/22/18 08:15 05/29/18 08:14 Albuterol/ Ipratropium (Albuterol/ Ipratropium) 3 ml Q4H PRN HHN dyspnea 05/22/18 07:30 05/27/18 07:29 Albuterol/ Ipratropium (Albuterol/ Ipratropium) 3 ml Q8HRT HHN 05/22/18 15:00 05/27/18 14:59 05/22/18 10:50 Amlodipine Besylate (Norvasc) 2.5 mg DAILY ORAL 05/22/18 09:00 06/21/18 08:59 05/22/18 09:23 Atorvastatin Calcium (Lipitor) 40 mg QHS ORAL 05/22/18 21:00 06/21/18 20:59 Clonidine HCl (Catapres Tab) 0.1 mg Q4H PRN ORAL For High Blood Pressure 05/22/18 08:15 06/21/18 08:14 Clopidogrel Bisulfate (Plavix) 75 mg DAILY ORAL 05/22/18 09:00 06/21/18 08:59 05/22/18 09:23 Dextrose (Dextrose 50%) 25 ml STAT PRN IV Hypoglycemia 05/22/18 07:30 06/21/18 07:29 Dextrose (Dextrose 50%) 50 ml STAT PRN IV Hypoglycemia 05/22/18 07:45 06/21/18 07:44 Heparin Sodium (Porcine) (Heparin 5000 units/ml) 5,000 units EVERY 12 HOURS SUBQ 05/22/18 09:00 06/21/18 08:59 05/22/18 09:25 Hydroxyzine HCl (Atarax) 25 mg Q6H PRN ORAL Itching 05/22/18 08:15 06/21/18 08:14 Ketorolac Tromethamine (Toradol 30mg) 30 mg Q8H PRN IV moderate pain 4-6 05/22/18 07:30 05/27/18 07:29 Lorazepam (Ativan 2mg/ml 1ml) 0.5 mg Q4H PRN IV For Anxiety 05/22/18 07:30 05/29/18 07:29 Methylprednisolone Sodium Succinate (Solu-MEDROL) 60 mg EVERY 6 HOURS IV 05/22/18 12:00 06/21/18 11:59 Montelukast Sodium (Singulair) 10 mg DAILY ORAL 05/22/18 09:00 06/21/18 08:59 05/22/18 09:22 Morphine Sulfate (Morphine Sulfate) 2 mg Q4H PRN IVP severe pain 7-10 05/22/18 07:30 05/29/18 07:29 Nitroglycerin (Ntg) 0.4 mg Q5M X 3 DOSES PRN SL Prn Chest Pain 05/22/18 07:30 06/21/18 07:29 Non-Formulary Medication (Non-Formulary Med) 1 ea DAILY ORAL 05/22/18 09:00 06/21/18 08:59 UNV Ondansetron HCl (Zofran) 4 mg Q6H PRN IVP Nausea & Vomiting 05/22/18 07:30 06/21/18 07:29 Pantoprazole (Protonix) 40 mg DAILY ORAL 05/22/18 09:00 06/21/18 08:59 05/22/18 09:22 Phenytoin (Dilantin) 100 mg BEDTIME ORAL 05/22/18 21:00 06/21/18 20:59 Piperacillin Sod/ Tazobactam Sod 3.375 gm/Dextrose 110 ml @ 27.5 mls/hr EVERY 8 HOURS IVPB 05/22/18 09:00 05/27/18 08:59 05/22/18 09:23 Pregabalin (Lyrica) 50 mg Q12HR ORAL 05/22/18 09:00 06/21/18 08:59 05/22/18 09:22 Promethazine HCl/ Codeine (Phenergan with Codeine) 5 ml Q6H PRN ORAL cough 05/22/18 07:30 06/21/18 07:29 Temazepam (Restoril) 15 mg HSPRN PRN ORAL Insomnia 05/22/18 07:30 05/29/18 07:29 Theophylline (Fabrice-Dur) 100 mg EVERY 12 HOURS ORAL 05/22/18 09:00 06/21/18 08:59 05/22/18 09:22 Assessment/Plan Problem List: (1) Anxiety ICD Codes: F41.9 - Anxiety disorder, unspecified SNOMED: 01226098 (2) MDD (major depressive disorder), recurrent episode, moderate ICD Codes: F33.1 - Major depressive disorder, recurrent, moderate SNOMED: 53681518, 302461133 (3) Vascular dementia ICD Codes: F01.50 - Vascular dementia without behavioral disturbance SNOMED: 852124230 Assessment/Plan Prozac 20mg qam the pt has capacity to make decisions provided raven/Sherin Mcfarland MD May 22, 2018 11:05
[2018-05-22 12:00] VITALS: BP 139/79
[2018-05-22] MEDS: Solu-MEDROL 125mg Inj IV SCH ×4 (13:18→23:36)
[2018-05-22] MEDS ORDERED: Piperacillin/Tazobactam 2.25 GM in D5W 55 ML IV SCH (14:00)
--- NOTE | 2018-05-22 14:13 | Cardiology Report ---
APPROVED REPORT EKG Measurement Heart [id number] Normal sinus rhythm with sinus arrhythmia Rightward axis Borderline ECG
[2018-05-22] MEDS ORDERED: Albuterol/Ipratropium 3ml neb HHN SCH (15:00)
[2018-05-22 16:00] VITALS: BP 142/72
--- NOTE | 2018-05-22 17:04 | History & Physical ---
History and Physical History & Physicial Dictated for Int Med-Dr Garcia no. [id number]. Hank Toure MD May 22, 2018 17:04
--- NOTE | 2018-05-22 18:30 | History and Physical Report ---
DATE OF ADMISSION: 05/22/2018 CHIEF COMPLAINT: The patient is an 83-year-old [place] female, who presents with a chief complaint of shortness of breath. HISTORY OF PRESENT ILLNESS: The patient was admitted to [facility] in March of 2018. Please see history and physical and discharge summary dictated at that time. The patient has a history of asthma. The patient states she began to experience shortness of breath yesterday, 05/21/2018. The patient states "my oxygen machine was not working." The patient dialed 911. The patient was transported to [facility] via EMS. The patient is admitted for shortness of breath and acute exacerbation of asthma. PAST MEDICAL HISTORY: Significant for, 1. Asthma. 2. History of hemorrhagic cerebrovascular accident. 3. Hypertension. 4. Hypercholesterolemia. 5. Gastroesophageal reflux disease. 6. Seizure disorder. 7. Coronary artery disease, status post stent placement in November of 2017. PAST SURGICAL HISTORY: Significant for, 1. Appendectomy. 2. Cardiac catheterization in November of 2017 with one stent placed. CURRENT MEDICATIONS: 1. Albuterol metered-dose inhaler two puffs p.o. q.i.d. p.r.n. 2. Amlodipine 5 mg p.o. daily. 3. Atorvastatin 80 mg p.o. daily. 4. Clopidogrel 75 mg p.o. daily. 5. Dexilant 60 mg p.o. daily. 6. Prozac 20 mg p.o. daily. 7. Advair 250/50 one puff p.o. twice daily. 8. Hydroxyzine 25 mg p.o. q.6 hours. 9. Isosorbide 30 mg daily. 10. Labetalol, Zyrtec, and Xyzal 5 mg p.o. daily. 11. Singulair 10 mg p.o. daily. 12. Protonix 40 mg p.o. daily. 13. Dilantin 100 mg p.o. at bedtime. 14. Prednisone p.r.n. 15. Lyrica 50 mg p.o. twice daily. 16. Valsartan/hydrochlorothiazide 160/12.5 one tab p.o. q.12 hours. ALLERGIES: Vancomycin. SOCIAL HISTORY: The patient is a . The patient is single. The patient lives alone. The patient denies tobacco or alcohol use. REVIEW OF SYSTEMS: CONSTITUTIONAL: The patient denies weight loss or weight gain. The patient denies fevers or chills. HEENT: The patient denies ear or throat pain. The patient denies headache. CARDIOVASCULAR: The patient denies palpitations or chest pain. CHEST: The patient complains of shortness of breath as above. The patient complains of wheezes. ABDOMEN: The patient denies nausea, vomiting, diarrhea, or constipation. GENITOURINARY: The patient denies dysuria or increased frequency of urination. NEUROMUSCULAR: The patient denies seizures or generalized weakness. PHYSICAL EXAMINATION: VITAL SIGNS: Temperature 97.5, respirations 20, pulse 85, and blood pressure 139/79. GENERAL: The patient is a well-developed and well-nourished female, in no apparent distress. HEENT: Eyes, pupils equal and responsive to light and accommodation. Extraocular movements are intact. NECK: Supple without lymphadenopathy. CHEST: Few scattered wheezes in bilateral bases. Otherwise, clear to auscultation without wheezes or rales. CARDIOVASCULAR: Regular rhythm and rate. S1 and S2 are normal without murmurs, rubs, or gallops. ABDOMEN: Soft, nontender, and nondistended. Positive bowel sounds. No evidence of hepatosplenomegaly. Currently, no rebound or guarding noted. EXTREMITIES: Negative for clubbing, cyanosis, or edema. RECTAL/GENITAL: Refused. NEUROLOGIC: Cranial nerves II through XII are grossly intact without focal deficits. Motor strength is 5/5 bilaterally. Deep tendon reflexes are 2+ plantar. LABORATORY STUDIES: WBC 7.3, hemoglobin 13.8, hematocrit 40.3, and platelets 225,000. Sodium 142, potassium 3.5, chloride 104, CO2 20, BUN 29, creatinine 0.7, and glucose 124. Troponin 0.006. Chest x-ray is reported as no acute disease. ASSESSMENT: This is an 83-year-old female. 1. Shortness of breath. 2. Asthma exacerbation. 3. Cerebrovascular disease. 4. Hypertension. 5. Hypercholesterolemia. 6. Gastroesophageal reflux disease. 7. Seizure disorder. 8. Coronary artery disease. TREATMENT: 1. Shortness of breath/asthma exacerbation. The patient has been placed empirically on intravenous Zosyn. The patient will receive albuterol nebulized q.6 hours p.r.n. We will follow recommendations of Pulmonary, Dr. Luis A Juares. 2. Hypertension. Continue valsartan/hydrochlorothiazide as above. 3. Hypercholesterolemia. Continue Lipitor as above. 4. Gastroesophageal reflux disease. Continue Protonix as above. 5. Seizure disorder. Continue Dilantin as above. Dilantin level is pending. 6. Coronary artery disease. Continue isosorbide mononitrate as above. Hank Toure M.D. DR: YAO JOB#: [id number] CC:
[2018-05-22 20:00] VITALS: BP 140/58
[2018-05-22] MEDS ORDERED: Atorvastatin 20mg tab ORAL SCH (21:00)
[2018-05-22] MEDS ORDERED: Phenytoin 100mg cap ORAL SCH (21:00)
[2018-05-22] MEDS: Phenytoin 100mg cap ORAL SCH (21:02)
[2018-05-22] MEDS: Lyrica 50mg cap ORAL SCH (21:18)
[2018-05-22] MEDS: Theophylline ER 100mg ORAL SCH (21:18)
[2018-05-22] MEDS: Atorvastatin 20mg tab ORAL SCH (21:19)
[2018-05-22] MEDS: Heparin 5000 units/ml inj SUBQ SCH (21:21)
[2018-05-22] MEDS: Piperacillin/Tazobactam 3.375 GM in D5W 110 ML IVPB SCH (22:11)
[2018-05-22] MEDS: Albuterol/Ipratropium 3ml neb HHN SCH (23:29)
[2018-05-23] VITALS (7 sets, daily range): BP systolic 124–161; BP diastolic 65–84
[2018-05-23] MEDS: Promethazine/Codeine 5ml UD ORAL PRN ×3 (01:23→20:07)
[2018-05-23] MEDS: Solu-MEDROL 125mg Inj IV SCH ×3 (06:25→21:13)
[2018-05-23] MEDS: Piperacillin/Tazobactam 3.375 GM in D5W 110 ML IVPB SCH ×3 (06:25→21:13)
[2018-05-23] MEDS: Albuterol/Ipratropium 3ml neb HHN SCH ×3 (07:43→23:15)
[2018-05-23] MEDS ORDERED: Imdur 30mg tab ORAL SCH (09:00)
[2018-05-23] MEDS: Montelukast 10mg tablet ORAL SCH (10:03)
[2018-05-23] MEDS: Lyrica 50mg cap ORAL SCH ×2 (10:04→20:06)
[2018-05-23] MEDS: Imdur 30mg tab ORAL SCH (10:05)
[2018-05-23] MEDS: Theophylline ER 100mg ORAL SCH ×2 (10:06→20:05)
[2018-05-23] MEDS: Heparin 5000 units/ml inj SUBQ SCH ×2 (10:18→20:07)
--- NOTE | 2018-05-23 12:51 | Pulmonology Progress Note ---
Assessment/Plan Problems: (1) Acute respiratory failure (2) Acute asthma exacerbation (3) CAD (coronary artery disease) (4) Cerebral vascular disease Assessment/Plan improving slowly taper steroids slowly check sputum cultures on Theophylline dvt prophylaxis check labs in am Subjective ROS Limited/Unobtainable: No Constitutional: Reports: no symptoms HEENT: Repors: no symptoms Respiratory: Reports: no symptoms Allergies: Coded Allergies: VANCOMYCIN (Verified Allergy, Unknown, red eyes, itchying, 10/10/16) Uncoded Allergies: Canned Food (Allergy, Unknown, 03/22/18) Nausea/Vomitting/Indigestion Objective Last 24 Hour Vital Signs Date Time Temp Pulse Resp B/P (MAP) Pulse Ox O2 Delivery O2 Flow Rate FiO2 05/23/18 10:05 159/82 05/23/18 10:05 77 159/82 05/23/18 08:00 98.2 77 20 159/82 (107) 97 98.2 05/23/18 07:55 83 18 98 Nasal Cannula 2.0 28 05/23/18 07:48 84 18 96 Nasal Cannula 2.0 28 05/23/18 07:48 Nasal Cannula 2.0 28 05/23/18 07:48 96 Nasal Cannula 2.0 28 05/23/18 04:00 97.5 82 18 155/83 (107) 96 97.5 05/23/18 00:00 98.1 80 18 124/65 (84) 98 98.1 05/22/18 23:30 80 20 99 Nasal Cannula 2.0 28 05/22/18 23:29 78 18 98 Nasal Cannula 2.0 28 05/22/18 21:00 Nasal Cannula 2.0 05/22/18 20:00 98.0 90 18 140/58 (85) 98 98.0 05/22/18 19:19 Nasal Cannula 2.0 28 05/22/18 19:19 95 Nasal Cannula 2.0 28 05/22/18 19:17 70 20 Nasal Cannula 2.0 28 05/22/18 16:00 97.9 76 20 142/72 (95) 95 97.9 05/22/18 16:00 77 05/22/18 15:27 84 20 98 Nasal Cannula 2.0 28 05/22/18 15:16 81 20 98 Nasal Cannula 2.0 28 Intake and Output 05/22/18 05/23/18 19:00 07:00 Intake Total 710.0 ml 410.0 ml Balance 710.0 ml 410.0 ml Intake Oral 600 ml 300 ml IV Total 110.0 ml 110.0 ml # Voids 3 General Appearance: WD/WN HEENT: normocephalic, atraumatic Respiratory/Chest: crackles/rales, expiratory wheezing Breasts: no masses Cardiovascular: normal peripheral pulses, normal rate Abdomen: normal bowel sounds, soft, non tender Genitourinary: normal external genitalia Extremities: no clubbing Microbiology Date/Time Source Procedure Growth Status 05/22/18 03:40 Blood Blood Culture - Preliminary NO GROWTH AFTER 24 HOURS Resulted 05/22/18 03:30 Blood Blood Culture - Preliminary NO GROWTH AFTER 24 HOURS Resulted 05/22/18 10:45 Sputum Gram Stain - Final Resulted 05/22/18 10:45 Sputum Sputum Culture Pending Resulted Current Medications Medications (Trade) Dose Ordered Sig/[place] Route PRN Reason Start Time Stop Time Status Last Admin Dose Admin Acetaminophen (Tylenol) 650 mg Q6H PRN ORAL Mild Pain/Temp > 100.5 05/22/18 18:00 06/21/18 17:59 Acetaminophen/ Hydrocodone Bitart ([place] 5/325) 1 tab Q6H PRN ORAL Breakthrough Pain 05/22/18 18:00 05/29/18 17:59 Albuterol/ Ipratropium (Albuterol/ Ipratropium) 3 ml Q4H PRN HHN dyspnea 05/22/18 19:30 05/27/18 07:29 Albuterol/ Ipratropium (Albuterol/ Ipratropium) 3 ml Q8HRT HHN 05/22/18 23:00 05/27/18 14:59 05/23/18 07:43 Amlodipine Besylate (Norvasc) 2.5 mg DAILY ORAL 05/23/18 09:00 06/21/18 08:59 05/23/18 10:05 Atorvastatin Calcium (Lipitor) 40 mg QHS ORAL 05/22/18 21:00 06/21/18 20:59 05/22/18 21:19 Clonidine HCl (Catapres Tab) 0.1 mg Q4H PRN ORAL For High Blood Pressure 05/22/18 18:00 06/21/18 17:59 Clopidogrel Bisulfate (Plavix) 75 mg DAILY ORAL 05/23/18 09:00 06/21/18 08:59 05/23/18 10:05 Dextrose (Dextrose 50%) 25 ml STAT PRN IV Hypoglycemia 05/22/18 18:00 06/21/18 17:59 Dextrose (Dextrose 50%) 50 ml STAT PRN IV Hypoglycemia 05/22/18 18:00 06/21/18 17:59 Heparin Sodium (Porcine) (Heparin 5000 units/ml) 5,000 units EVERY 12 HOURS SUBQ 05/22/18 21:00 06/21/18 08:59 05/23/18 10:18 Hydroxyzine HCl (Atarax) 25 mg Q6H PRN ORAL Itching 05/22/18 18:00 06/21/18 17:59 Isosorbide Mononitrate (Imdur) 30 mg DAILY ORAL 05/23/18 09:00 06/22/18 08:59 05/23/18 10:05 Ketorolac Tromethamine (Toradol 30mg) 30 mg Q8H PRN IV moderate pain 4-6 05/22/18 18:00 05/27/18 17:59 Lorazepam (Ativan 2mg/ml 1ml) 0.5 mg Q4H PRN IV For Anxiety 05/22/18 18:00 05/29/18 17:59 Methylprednisolone Sodium Succinate (Solu-MEDROL) 60 mg EVERY 6 HOURS IV 05/22/18 18:00 06/21/18 11:59 05/23/18 06:25 Montelukast Sodium (Singulair) 10 mg DAILY ORAL 05/23/18 09:00 06/21/18 08:59 05/23/18 10:03 Morphine Sulfate (Morphine Sulfate) 2 mg Q4H PRN IVP severe pain 7-10 05/22/18 18:00 05/29/18 17:59 Nitroglycerin (Ntg) 0.4 mg Q5M X 3 DOSES PRN SL Prn Chest Pain 05/22/18 17:30 06/21/18 07:29 Ondansetron HCl (Zofran) 4 mg Q6H PRN IVP Nausea & Vomiting 05/22/18 18:00 06/21/18 17:59 Pantoprazole (Protonix) 40 mg DAILY ORAL 05/23/18 09:00 06/21/18 08:59 05/23/18 10:05 Phenytoin (Dilantin) 100 mg BEDTIME ORAL 05/22/18 21:00 06/21/18 20:59 05/22/18 21:02 Piperacillin Sod/ Tazobactam Sod 3.375 gm/Dextrose 110 ml @ 27.5 mls/hr EVERY 8 HOURS IVPB 05/22/18 22:00 05/27/18 08:59 05/23/18 06:25 Pregabalin (Lyrica) 50 mg Q12HR ORAL 05/22/18 21:00 06/21/18 08:59 05/23/18 10:04 Promethazine HCl/ Codeine (Phenergan with Codeine) 5 ml Q6H PRN ORAL cough 05/22/18 18:00 06/21/18 17:59 05/23/18 01:23 Temazepam (Restoril) 15 mg HSPRN PRN ORAL Insomnia 05/22/18 21:00 05/29/18 20:59 Theophylline (Fabrice-Dur) 100 mg EVERY 12 HOURS ORAL 05/22/18 21:00 06/21/18 08:59 05/23/18 10:06 Luis A Juares MD May 23, 2018 12:51
--- NOTE | 2018-05-23 18:05 | Internal Med Progress Note ---
Subjective Date of Service: May 23, 2018 Physician Name Toure,Hank Attending Physician Shlomo Garcia MD Current Medications Medications (Trade) Dose Ordered Sig/[place] Route PRN Reason Start Time Stop Time Status Last Admin Dose Admin Acetaminophen (Tylenol) 650 mg Q6H PRN ORAL Mild Pain/Temp > 100.5 05/22/18 18:00 06/21/18 17:59 Acetaminophen/ Hydrocodone Bitart ([place] 5/325) 1 tab Q6H PRN ORAL Breakthrough Pain 05/22/18 18:00 05/29/18 17:59 Albuterol/ Ipratropium (Albuterol/ Ipratropium) 3 ml Q4H PRN HHN dyspnea 05/22/18 19:30 05/27/18 07:29 Albuterol/ Ipratropium (Albuterol/ Ipratropium) 3 ml Q8HRT HHN 05/22/18 23:00 05/27/18 14:59 05/23/18 15:15 Amlodipine Besylate (Norvasc) 2.5 mg DAILY ORAL 05/23/18 09:00 06/21/18 08:59 05/23/18 10:05 Atorvastatin Calcium (Lipitor) 40 mg QHS ORAL 05/22/18 21:00 06/21/18 20:59 05/22/18 21:19 Clonidine HCl (Catapres Tab) 0.1 mg Q4H PRN ORAL For High Blood Pressure 05/22/18 18:00 06/21/18 17:59 Clopidogrel Bisulfate (Plavix) 75 mg DAILY ORAL 05/23/18 09:00 06/21/18 08:59 05/23/18 10:05 Dextrose (Dextrose 50%) 25 ml STAT PRN IV Hypoglycemia 05/22/18 18:00 06/21/18 17:59 Dextrose (Dextrose 50%) 50 ml STAT PRN IV Hypoglycemia 05/22/18 18:00 06/21/18 17:59 Heparin Sodium (Porcine) (Heparin 5000 units/ml) 5,000 units EVERY 12 HOURS SUBQ 05/22/18 21:00 06/21/18 08:59 05/23/18 10:18 Hydroxyzine HCl (Atarax) 25 mg Q6H PRN ORAL Itching 05/22/18 18:00 06/21/18 17:59 Isosorbide Mononitrate (Imdur) 30 mg DAILY ORAL 05/23/18 09:00 06/22/18 08:59 05/23/18 10:05 Lorazepam (Ativan 2mg/ml 1ml) 0.5 mg Q4H PRN IV For Anxiety 05/22/18 18:00 05/29/18 17:59 Methylprednisolone Sodium Succinate (Solu-MEDROL) 60 mg EVERY 8 HOURS IV 05/23/18 14:00 06/21/18 11:59 05/23/18 14:02 Montelukast Sodium (Singulair) 10 mg DAILY ORAL 05/23/18 09:00 06/21/18 08:59 05/23/18 10:03 Morphine Sulfate (Morphine Sulfate) 2 mg Q4H PRN IVP severe pain 7-10 05/22/18 18:00 05/29/18 17:59 Nitroglycerin (Ntg) 0.4 mg Q5M X 3 DOSES PRN SL Prn Chest Pain 05/22/18 17:30 06/21/18 07:29 Ondansetron HCl (Zofran) 4 mg Q6H PRN IVP Nausea & Vomiting 05/22/18 18:00 06/21/18 17:59 Pantoprazole (Protonix) 40 mg DAILY ORAL 05/23/18 09:00 06/21/18 08:59 05/23/18 10:05 Phenytoin (Dilantin) 100 mg BEDTIME ORAL 05/22/18 21:00 06/21/18 20:59 05/22/18 21:02 Piperacillin Sod/ Tazobactam Sod 3.375 gm/Dextrose 110 ml @ 27.5 mls/hr EVERY 8 HOURS IVPB 05/22/18 22:00 05/27/18 08:59 05/23/18 14:06 Pregabalin (Lyrica) 50 mg Q12HR ORAL 05/22/18 21:00 06/21/18 08:59 05/23/18 10:04 Promethazine HCl/ Codeine (Phenergan with Codeine) 5 ml Q6H PRN ORAL cough 05/22/18 18:00 06/21/18 17:59 05/23/18 14:02 Temazepam (Restoril) 15 mg HSPRN PRN ORAL Insomnia 05/22/18 21:00 05/29/18 20:59 Theophylline (Fabrice-Dur) 100 mg EVERY 12 HOURS ORAL 05/22/18 21:00 06/21/18 08:59 05/23/18 10:06 Allergies: Coded Allergies: VANCOMYCIN (Verified Allergy, Unknown, red eyes, itchying, 10/10/16) Uncoded Allergies: Canned Food (Allergy, Unknown, 03/22/18) Nausea/Vomitting/Indigestion ROS Limited/Unobtainable: No Constitutional: Reports: no symptoms HEENT: Reports: no symptoms Cardiovascular: Reports: no symptoms Respiratory: Reports: shortness of breath Gastrointestinal/Abdominal: Reports: no symptoms Genitourinary: Reports: no symptoms Neurologic/Psychiatric: Reports: no symptoms Subjective 83 YO F admitted with shortness of breath. Now asthma exacerbation with bronchitis. Cover for [facility]-Dr Garcia. Objective Last Vital Signs Date Time Temp Pulse Resp B/P (MAP) Pulse Ox O2 Delivery O2 Flow Rate FiO2 05/23/18 16:00 98.7 79 19 149/69 (95) 95 98.7 05/23/18 15:23 Nasal Cannula 2.0 28 Microbiology Date/Time Source Procedure Growth Status 05/22/18 03:40 Blood Blood Culture - Preliminary NO GROWTH AFTER 24 HOURS Resulted 05/22/18 03:30 Blood Blood Culture - Preliminary NO GROWTH AFTER 24 HOURS Resulted 05/22/18 10:45 Sputum Gram Stain - Final Resulted 05/22/18 10:45 Sputum Sputum Culture Pending Resulted Intake and Output 05/22/18 05/23/18 19:00 07:00 Intake Total 710.0 ml 410.0 ml Balance 710.0 ml 410.0 ml Intake Oral 600 ml 300 ml IV Total 110.0 ml 110.0 ml # Voids 3 Objective PHYSICAL EXAMINATION: GENERAL: The patient is a well-developed and well-nourished female, in no apparent distress. HEENT: Eyes, pupils equal and responsive to light and accommodation. Extraocular movements are intact. NECK: Supple without lymphadenopathy. CHEST: Few scattered wheezes in bilateral bases. Otherwise, clear to auscultation without wheezes or rales. CARDIOVASCULAR: Regular rhythm and rate. S1 and S2 are normal without murmurs, rubs, or gallops. ABDOMEN: Soft, nontender, and nondistended. Positive bowel sounds. No evidence of hepatosplenomegaly. Currently, no rebound or guarding noted. EXTREMITIES: Negative for clubbing, cyanosis, or edema. RECTAL/GENITAL: Refused. NEUROLOGIC: Cranial nerves II through XII are grossly intact without focal deficits. Motor strength is 5/5 bilaterally. Deep tendon reflexes are 2+ plantar Assessment/Plan Problem List: (1) Hypercholesterolemia (2) Shortness of breath (3) Bronchitis Assessment & Plan: See pulmonary note. Continue zosyn (4) Cerebral vascular disease (5) Hemorrhagic stroke (6) HTN (hypertension) Assessment & Plan: stable on amlodipine (7) Acute asthma exacerbation Assessment & Plan: continue albuterol nebs and IV solumedrol-see pulmonary note. (8) GERD (gastroesophageal reflux disease) (9) Seizure disorder Assessment & Plan: Continur dilantin (10) CAD (coronary artery disease) Assessment & Plan: continue isosorbide Status: progressing Hank Toure MD May 23, 2018 18:05
[2018-05-23] MEDS: Atorvastatin 20mg tab ORAL SCH (20:05)
[2018-05-23] MEDS: Phenytoin 100mg cap ORAL SCH (20:05)
--- NOTE | 2018-05-23 22:02 | General Progress Note ---
Assessment/Plan Problem List: (1) Anxiety ICD Codes: F41.9 - Anxiety disorder, unspecified SNOMED: 76211570 (2) MDD (major depressive disorder), recurrent episode, moderate ICD Codes: F33.1 - Major depressive disorder, recurrent, moderate SNOMED: 22908952, 353103468 (3) Vascular dementia ICD Codes: F01.50 - Vascular dementia without behavioral disturbance SNOMED: 546080120 Status: stable, progressing Assessment/Plan Prozac 20mg qam the pt has capacity to make decisions provided ro/st Subjective Neurologic/Psychiatric: Reports: anxiety, depressed, emotional problems Allergies: Coded Allergies: VANCOMYCIN (Verified Allergy, Unknown, red eyes, itchying, 10/10/16) Uncoded Allergies: Canned Food (Allergy, Unknown, 03/22/18) Nausea/Vomitting/Indigestion Objective Last 24 Hour Vital Signs Date Time Temp Pulse Resp B/P (MAP) Pulse Ox O2 Delivery O2 Flow Rate FiO2 05/23/18 20:23 98.3 88 20 153/77 (102) 96 98.3 05/23/18 19:06 Nasal Cannula 2.0 28 05/23/18 19:06 97 Nasal Cannula 2.0 28 05/23/18 16:00 98.7 79 19 149/69 (95) 95 98.7 05/23/18 15:23 82 18 99 Nasal Cannula 2.0 28 05/23/18 15:15 79 18 97 Nasal Cannula 2.0 28 05/23/18 12:50 83 147/84 (105) 05/23/18 12:00 98.5 84 20 161/81 (107) 96 98.5 05/23/18 10:05 159/82 05/23/18 10:05 77 159/82 05/23/18 09:00 Nasal Cannula 2.0 05/23/18 08:00 98.2 77 20 159/82 (107) 97 98.2 05/23/18 07:55 83 18 98 Nasal Cannula 2.0 28 05/23/18 07:48 84 18 96 Nasal Cannula 2.0 28 05/23/18 07:48 Nasal Cannula 2.0 28 05/23/18 07:48 96 Nasal Cannula 2.0 28 05/23/18 04:00 97.5 82 18 155/83 (107) 96 97.5 05/23/18 00:00 98.1 80 18 124/65 (84) 98 98.1 05/22/18 23:30 80 20 99 Nasal Cannula 2.0 28 05/22/18 23:29 78 18 98 Nasal Cannula 2.0 28 Intake and Output 05/22/18 05/23/18 19:00 07:00 Intake Total 710.0 ml 410.0 ml Balance 710.0 ml 410.0 ml Intake Oral 600 ml 300 ml IV Total 110.0 ml 110.0 ml # Voids 3 Height (Feet): 4 Height (Inches): 10.00 Weight (Pounds): 120 General Appearance: no apparent distress, alert Neurologic: oriented x 3, responsive, depressed affect Sherin Holm MD May 23, 2018 22:02
[2018-05-24 00:36] VITALS: BP 158/79
[2018-05-24] MEDS: Promethazine/Codeine 5ml UD ORAL PRN ×3 (03:56→18:17)
[2018-05-24 04:36] VITALS: BP 157/82
[2018-05-24] MEDS: Piperacillin/Tazobactam 3.375 GM in D5W 110 ML IVPB SCH ×3 (05:05→20:55)
[2018-05-24] MEDS: Solu-MEDROL 125mg Inj IV SCH ×2 (05:06→20:54)
[2018-05-24] MEDS ORDERED: Miralax 17gm pkt ORAL PRN (07:00)
[2018-05-24] MEDS: Albuterol/Ipratropium 3ml neb HHN SCH ×3 (07:55→23:38)
[2018-05-24 08:00] VITALS: BP 173/86
[2018-05-24] MEDS: Imdur 30mg tab ORAL SCH (09:07)
[2018-05-24] MEDS: Heparin 5000 units/ml inj SUBQ SCH ×2 (09:07→20:56)
[2018-05-24] MEDS: Lyrica 50mg cap ORAL SCH ×2 (09:08→20:53)
[2018-05-24] MEDS: Theophylline ER 100mg ORAL SCH ×2 (09:08→20:53)
[2018-05-24] MEDS: Montelukast 10mg tablet ORAL SCH (09:08)
[2018-05-24] MEDS ORDERED: Fleet's Enema 133ml RECTAL SCH (10:00)
--- NOTE | 2018-05-24 11:06 | Pulmonology Progress Note ---
Assessment/Plan Problems: (1) Acute respiratory failure (2) Acute asthma exacerbation (3) CAD (coronary artery disease) (4) Cerebral vascular disease Assessment/Plan improving slowly taper steroids slowly, further check sputum cultures, michele and normal carol on Theophylline dvt prophylaxis check labs in am Subjective ROS Limited/Unobtainable: No Constitutional: Reports: no symptoms HEENT: Repors: no symptoms Respiratory: Reports: no symptoms Allergies: Coded Allergies: VANCOMYCIN (Verified Allergy, Unknown, red eyes, itchying, 10/10/16) Uncoded Allergies: Canned Food (Allergy, Unknown, 03/22/18) Nausea/Vomitting/Indigestion Objective Last 24 Hour Vital Signs Date Time Temp Pulse Resp B/P (MAP) Pulse Ox O2 Delivery O2 Flow Rate FiO2 05/24/18 09:08 94 169/95 05/24/18 09:07 169/95 05/24/18 09:00 Nasal Cannula 2.0 05/24/18 08:01 85 20 97 Nasal Cannula 2.0 28 05/24/18 08:00 98.6 88 20 173/86 (115) 94 98.6 05/24/18 07:58 173/86 05/24/18 07:56 84 20 94 Room Air 21 05/24/18 07:56 Room Air 21 05/24/18 07:55 94 Room Air 21 05/24/18 04:36 98.0 87 20 157/82 (107) 96 98.0 05/24/18 00:36 98.0 86 19 158/79 (105) 94 98.0 05/23/18 23:24 83 18 99 Nasal Cannula 2.0 28 05/23/18 23:15 86 18 94 Nasal Cannula 2.0 28 05/23/18 21:00 Nasal Cannula 2.0 05/23/18 20:23 98.3 88 20 153/77 (102) 96 98.3 05/23/18 19:06 Nasal Cannula 2.0 28 05/23/18 19:06 97 Nasal Cannula 2.0 28 05/23/18 16:00 98.7 79 19 149/69 (95) 95 98.7 05/23/18 15:23 82 18 99 Nasal Cannula 2.0 28 05/23/18 15:15 79 18 97 Nasal Cannula 2.0 28 05/23/18 12:50 83 147/84 (105) 05/23/18 12:00 98.5 84 20 161/81 (107) 96 98.5 Intake and Output 05/23/18 05/24/18 19:00 07:00 Intake Total 910.0 ml 360 ml Output Total 0 ml Balance 910.0 ml 360 ml Intake Oral 800 ml 360 ml IV Total 110.0 ml Stool Total 0 ml # Voids 5 3 # Bowel Movements 1 1 General Appearance: WD/WN HEENT: normocephalic, atraumatic Respiratory/Chest: chest wall non-tender, lungs clear Breasts: no masses Cardiovascular: normal peripheral pulses, normal rate Abdomen: normal bowel sounds, soft, non tender Extremities: no cyanosis Microbiology Date/Time Source Procedure Growth Status 05/22/18 03:40 Blood Blood Culture - Preliminary NO GROWTH AFTER 48 HOURS Resulted 05/22/18 03:30 Blood Blood Culture - Preliminary NO GROWTH AFTER 48 HOURS Resulted 05/22/18 10:45 Sputum Gram Stain - Final Complete 05/22/18 10:45 Sputum Culture - Final Michele Albicans Usual Respiratory Carol Complete Current Medications Medications (Trade) Dose Ordered Sig/[place] Route PRN Reason Start Time Stop Time Status Last Admin Dose Admin Acetaminophen (Tylenol) 650 mg Q6H PRN ORAL Mild Pain/Temp > 100.5 05/22/18 18:00 06/21/18 17:59 Acetaminophen/ Hydrocodone Bitart ([place] 5/325) 1 tab Q6H PRN ORAL Breakthrough Pain 05/22/18 18:00 05/29/18 17:59 Albuterol/ Ipratropium (Albuterol/ Ipratropium) 3 ml Q4H PRN HHN dyspnea 05/22/18 19:30 05/27/18 07:29 Albuterol/ Ipratropium (Albuterol/ Ipratropium) 3 ml Q8HRT HHN 05/22/18 23:00 05/27/18 14:59 05/24/18 07:55 Amlodipine Besylate (Norvasc) 2.5 mg DAILY ORAL 05/23/18 09:00 06/21/18 08:59 05/24/18 09:08 Atorvastatin Calcium (Lipitor) 40 mg QHS ORAL 05/22/18 21:00 06/21/18 20:59 05/23/18 20:05 Clonidine HCl (Catapres Tab) 0.1 mg Q4H PRN ORAL For High Blood Pressure 05/22/18 18:00 06/21/18 17:59 05/24/18 07:58 Clopidogrel Bisulfate (Plavix) 75 mg DAILY ORAL 05/23/18 09:00 06/21/18 08:59 05/24/18 09:07 Dextrose (Dextrose 50%) 25 ml STAT PRN IV Hypoglycemia 05/22/18 18:00 06/21/18 17:59 Dextrose (Dextrose 50%) 50 ml STAT PRN IV Hypoglycemia 05/22/18 18:00 06/21/18 17:59 Heparin Sodium (Porcine) (Heparin 5000 units/ml) 5,000 units EVERY 12 HOURS SUBQ 05/22/18 21:00 06/21/18 08:59 05/24/18 09:07 Hydroxyzine HCl (Atarax) 25 mg Q6H PRN ORAL Itching 05/22/18 18:00 06/21/18 17:59 Isosorbide Mononitrate (Imdur) 30 mg DAILY ORAL 05/23/18 09:00 06/22/18 08:59 05/24/18 09:07 Lorazepam (Ativan 2mg/ml 1ml) 0.5 mg Q4H PRN IV For Anxiety 05/22/18 18:00 05/29/18 17:59 Methylprednisolone Sodium Succinate (Solu-MEDROL) 60 mg EVERY 8 HOURS IV 05/23/18 14:00 06/21/18 11:59 05/24/18 05:06 Montelukast Sodium (Singulair) 10 mg DAILY ORAL 05/23/18 09:00 06/21/18 08:59 05/24/18 09:08 Morphine Sulfate (Morphine Sulfate) 2 mg Q4H PRN IVP severe pain 7-10 05/22/18 18:00 05/29/18 17:59 Nitroglycerin (Ntg) 0.4 mg Q5M X 3 DOSES PRN SL Prn Chest Pain 05/22/18 17:30 06/21/18 07:29 Ondansetron HCl (Zofran) 4 mg Q6H PRN IVP Nausea & Vomiting 05/22/18 18:00 06/21/18 17:59 Pantoprazole (Protonix) 40 mg DAILY ORAL 05/23/18 09:00 06/21/18 08:59 05/24/18 09:07 Phenytoin (Dilantin) 100 mg BEDTIME ORAL 05/22/18 21:00 06/21/18 20:59 05/23/18 20:05 Piperacillin Sod/ Tazobactam Sod 3.375 gm/Dextrose 110 ml @ 27.5 mls/hr EVERY 8 HOURS IVPB 05/22/18 22:00 05/27/18 08:59 05/24/18 05:05 Polyethylene Glycol (Miralax) 17 gm DAILY PRN ORAL Constipation 05/24/18 07:00 06/23/18 06:59 05/24/18 07:51 Pregabalin (Lyrica) 50 mg Q12HR ORAL 05/22/18 21:00 06/21/18 08:59 05/24/18 09:08 Promethazine HCl/ Codeine (Phenergan with Codeine) 5 ml Q6H PRN ORAL cough 05/22/18 18:00 06/21/18 17:59 05/24/18 10:33 Sodium Phosphate (Fleet's Sodium Phosl Enema) 133 ml ONCE RECTAL 05/24/18 10:00 05/24/18 12:00 05/24/18 09:49 Temazepam (Restoril) 15 mg HSPRN PRN ORAL Insomnia 05/22/18 21:00 05/29/18 20:59 Theophylline (Fabrice-Dur) 100 mg EVERY 12 HOURS ORAL 05/22/18 21:00 06/21/18 08:59 05/24/18 09:08 Luis A Juares MD May 24, 2018 11:06
[2018-05-24 12:00] VITALS: BP 132/69
[2018-05-24] MEDS: Sennosides 8.6mg ORAL SCH (14:11)
[2018-05-24 16:00] VITALS: BP 118/70
--- NOTE | 2018-05-24 16:10 | Internal Med Progress Note ---
Subjective Date of Service: May 24, 2018 Physician Name TejalHank Attending Physician Shlomo Garcia MD Current Medications Medications (Trade) Dose Ordered Sig/[place] Route PRN Reason Start Time Stop Time Status Last Admin Dose Admin Acetaminophen (Tylenol) 650 mg Q6H PRN ORAL Mild Pain/Temp > 100.5 05/22/18 18:00 06/21/18 17:59 Acetaminophen/ Hydrocodone Bitart ([place] 5/325) 1 tab Q6H PRN ORAL Breakthrough Pain 05/22/18 18:00 05/29/18 17:59 Albuterol/ Ipratropium (Albuterol/ Ipratropium) 3 ml Q4H PRN HHN dyspnea 05/22/18 19:30 05/27/18 07:29 Albuterol/ Ipratropium (Albuterol/ Ipratropium) 3 ml Q8HRT HHN 05/22/18 23:00 05/27/18 14:59 05/24/18 14:54 Amlodipine Besylate (Norvasc) 2.5 mg DAILY ORAL 05/23/18 09:00 06/21/18 08:59 05/24/18 09:08 Atorvastatin Calcium (Lipitor) 40 mg QHS ORAL 05/22/18 21:00 06/21/18 20:59 05/23/18 20:05 Clonidine HCl (Catapres Tab) 0.1 mg Q4H PRN ORAL For High Blood Pressure 05/22/18 18:00 06/21/18 17:59 05/24/18 07:58 Clopidogrel Bisulfate (Plavix) 75 mg DAILY ORAL 05/23/18 09:00 06/21/18 08:59 05/24/18 09:07 Dextrose (Dextrose 50%) 25 ml STAT PRN IV Hypoglycemia 05/22/18 18:00 06/21/18 17:59 Dextrose (Dextrose 50%) 50 ml STAT PRN IV Hypoglycemia 05/22/18 18:00 06/21/18 17:59 Heparin Sodium (Porcine) (Heparin 5000 units/ml) 5,000 units EVERY 12 HOURS SUBQ 05/22/18 21:00 06/21/18 08:59 05/24/18 09:07 Hydroxyzine HCl (Atarax) 25 mg Q6H PRN ORAL Itching 05/22/18 18:00 06/21/18 17:59 Isosorbide Mononitrate (Imdur) 30 mg DAILY ORAL 05/23/18 09:00 06/22/18 08:59 05/24/18 09:07 Lorazepam (Ativan 2mg/ml 1ml) 0.5 mg Q4H PRN IV For Anxiety 05/22/18 18:00 05/29/18 17:59 Methylprednisolone Sodium Succinate (Solu-MEDROL) 60 mg EVERY 12 HOURS IV 05/24/18 21:00 06/21/18 11:59 Montelukast Sodium (Singulair) 10 mg DAILY ORAL 05/23/18 09:00 06/21/18 08:59 05/24/18 09:08 Morphine Sulfate (Morphine Sulfate) 2 mg Q4H PRN IVP severe pain 7-10 05/22/18 18:00 05/29/18 17:59 Nitroglycerin (Ntg) 0.4 mg Q5M X 3 DOSES PRN SL Prn Chest Pain 05/22/18 17:30 06/21/18 07:29 Ondansetron HCl (Zofran) 4 mg Q6H PRN IVP Nausea & Vomiting 05/22/18 18:00 06/21/18 17:59 Pantoprazole (Protonix) 40 mg DAILY ORAL 05/23/18 09:00 06/21/18 08:59 05/24/18 09:07 Phenytoin (Dilantin) 100 mg BEDTIME ORAL 05/22/18 21:00 06/21/18 20:59 05/23/18 20:05 Piperacillin Sod/ Tazobactam Sod 3.375 gm/Dextrose 110 ml @ 27.5 mls/hr EVERY 8 HOURS IVPB 05/22/18 22:00 05/27/18 08:59 05/24/18 14:57 Polyethylene Glycol (Miralax) 17 gm DAILY PRN ORAL Constipation 05/24/18 07:00 06/23/18 06:59 05/24/18 07:51 Pregabalin (Lyrica) 50 mg Q12HR ORAL 05/22/18 21:00 06/21/18 08:59 05/24/18 09:08 Promethazine HCl/ Codeine (Phenergan with Codeine) 5 ml Q6H PRN ORAL cough 05/22/18 18:00 06/21/18 17:59 05/24/18 10:33 Sennosides (Senokot) 1 tab DAILY ORAL 05/24/18 13:00 06/23/18 12:59 05/24/18 14:11 Temazepam (Restoril) 15 mg HSPRN PRN ORAL Insomnia 05/22/18 21:00 05/29/18 20:59 Theophylline (Fabrice-Dur) 100 mg EVERY 12 HOURS ORAL 05/22/18 21:00 06/21/18 08:59 05/24/18 09:08 Allergies: Coded Allergies: VANCOMYCIN (Verified Allergy, Unknown, red eyes, itchying, 10/10/16) Uncoded Allergies: Canned Food (Allergy, Unknown, 03/22/18) Nausea/Vomitting/Indigestion ROS Limited/Unobtainable: No Constitutional: Reports: no symptoms HEENT: Reports: no symptoms Cardiovascular: Reports: no symptoms Respiratory: Reports: shortness of breath Gastrointestinal/Abdominal: Reports: no symptoms Genitourinary: Reports: no symptoms Neurologic/Psychiatric: Reports: no symptoms Subjective 83 YO F admitted with shortness of breath. Now asthma exacerbation with bronchitis. Cover for Int Med-Dr Garcia. Objective Last Vital Signs Date Time Temp Pulse Resp B/P (MAP) Pulse Ox O2 Delivery O2 Flow Rate FiO2 05/24/18 15:01 86 20 98 Nasal Cannula 2.0 28 05/24/18 12:00 98.4 132/69 (90) 98.4 Microbiology Date/Time Source Procedure Growth Status 05/22/18 03:40 Blood Blood Culture - Preliminary NO GROWTH AFTER 48 HOURS Resulted 05/22/18 03:30 Blood Blood Culture - Preliminary NO GROWTH AFTER 48 HOURS Resulted 05/22/18 10:45 Sputum Gram Stain - Final Complete 05/22/18 10:45 Sputum Culture - Final Suha Albicans Usual Respiratory Vandana Complete Intake and Output 05/23/18 05/24/18 19:00 07:00 Intake Total 910.0 ml 360 ml Output Total 0 ml Balance 910.0 ml 360 ml Intake Oral 800 ml 360 ml IV Total 110.0 ml Stool Total 0 ml # Voids 5 3 # Bowel Movements 1 1 Objective PHYSICAL EXAMINATION: GENERAL: The patient is a well-developed and well-nourished female, in no apparent distress. HEENT: Eyes, pupils equal and responsive to light and accommodation. Extraocular movements are intact. NECK: Supple without lymphadenopathy. CHEST: Few scattered wheezes in bilateral bases. Otherwise, clear to auscultation without wheezes or rales. CARDIOVASCULAR: Regular rhythm and rate. S1 and S2 are normal without murmurs, rubs, or gallops. ABDOMEN: Soft, nontender, and nondistended. Positive bowel sounds. No evidence of hepatosplenomegaly. Currently, no rebound or guarding noted. EXTREMITIES: Negative for clubbing, cyanosis, or edema. RECTAL/GENITAL: Refused. NEUROLOGIC: Cranial nerves II through XII are grossly intact without focal deficits. Motor strength is 5/5 bilaterally. Deep tendon reflexes are 2+ plantar Assessment/Plan Problem List: (1) Hypercholesterolemia (2) Shortness of breath (3) Bronchitis Assessment & Plan: See pulmonary note. Continue zosyn (4) Cerebral vascular disease (5) Hemorrhagic stroke (6) HTN (hypertension) Assessment & Plan: stable on amlodipine (7) Acute asthma exacerbation Assessment & Plan: continue albuterol nebs and IV solumedrol-see pulmonary note. (8) GERD (gastroesophageal reflux disease) (9) Seizure disorder Assessment & Plan: Continur dilantin (10) CAD (coronary artery disease) Assessment & Plan: continue isosorbide Status: progressing Hank Toure MD May 24, 2018 16:10
[2018-05-24 20:00] VITALS: BP 131/74
[2018-05-24] MEDS: Atorvastatin 20mg tab ORAL SCH (20:54)
[2018-05-24] MEDS: Phenytoin 100mg cap ORAL SCH (20:54)
[2018-05-25] VITALS: BP 154/89
[2018-05-25] MEDS: Promethazine/Codeine 5ml UD ORAL PRN ×3 (00:03→13:56)
[2018-05-25 04:00] VITALS: BP 172/89
[2018-05-25] MEDS: Piperacillin/Tazobactam 3.375 GM in D5W 110 ML IVPB SCH ×3 (06:17→22:08)
[2018-05-25 08:00] VITALS: BP 129/73
[2018-05-25] MEDS: Albuterol/Ipratropium 3ml neb HHN SCH ×3 (08:01→22:38)
[2018-05-25] MEDS: Montelukast 10mg tablet ORAL SCH (08:36)
[2018-05-25] MEDS: Lyrica 50mg cap ORAL SCH ×2 (08:37→22:08)
[2018-05-25] MEDS: Theophylline ER 100mg ORAL SCH ×2 (08:37→22:10)
[2018-05-25] MEDS: Imdur 30mg tab ORAL SCH (08:37)
[2018-05-25] MEDS: Sennosides 8.6mg ORAL SCH (08:37)
[2018-05-25] MEDS: Heparin 5000 units/ml inj SUBQ SCH ×2 (08:38→22:11)
[2018-05-25] MEDS: Solu-MEDROL 125mg Inj IV SCH (08:38)
[2018-05-25 12:00] VITALS: BP 126/80
--- NOTE | 2018-05-25 12:19 | Pulmonology Progress Note ---
Assessment/Plan Problems: (1) Bacteremia (2) Acute respiratory failure (3) Acute asthma exacerbation (4) CAD (coronary artery disease) (5) Cerebral vascular disease Assessment/Plan ID evaluation for bacteremia improving slowly taper steroids slowly, further to 40 today IV check sputum cultures, michele and normal carol on Theophylline dvt prophylaxis check labs in am Subjective ROS Limited/Unobtainable: No Interval Events: still coughin, Allergies: Coded Allergies: VANCOMYCIN (Verified Allergy, Unknown, red eyes, itchying, 10/10/16) Uncoded Allergies: Canned Food (Allergy, Unknown, 03/22/18) Nausea/Vomitting/Indigestion Objective Last 24 Hour Vital Signs Date Time Temp Pulse Resp B/P (MAP) Pulse Ox O2 Delivery O2 Flow Rate FiO2 05/25/18 09:00 Nasal Cannula 2.0 05/25/18 08:37 129/73 05/25/18 08:37 76 129/73 05/25/18 08:10 76 20 100 Nasal Cannula 2.0 28 05/25/18 08:08 Nasal Cannula 2.0 28 05/25/18 08:08 97 Nasal Cannula 2.0 28 05/25/18 08:02 83 20 97 Nasal Cannula 2.0 28 05/25/18 08:00 97.7 81 18 129/73 (91) 100 97.7 05/25/18 06:17 172/89 05/25/18 04:00 98.1 79 18 172/89 (116) 95 98.1 05/25/18 00:00 97.4 86 18 154/89 (110) 97 97.4 05/24/18 23:42 75 20 99 Nasal Cannula 2.0 28 05/24/18 23:39 89 20 96 Nasal Cannula 2.0 28 05/24/18 21:00 Nasal Cannula 2.0 05/24/18 20:00 98.1 90 18 131/74 (93) 94 98.1 05/24/18 18:55 Nasal Cannula 2.0 28 05/24/18 18:55 97 Nasal Cannula 2.0 28 05/24/18 16:00 98.8 87 20 118/70 (86) 97 98.8 05/24/18 15:01 86 20 98 Nasal Cannula 2.0 28 05/24/18 15:00 85 20 97 Nasal Cannula 2.0 28 Intake and Output 05/24/18 05/25/18 19:00 07:00 Intake Total 1170.0 ml 420 ml Balance 1170.0 ml 420 ml Intake Oral 1060 ml 420 ml IV Total 110.0 ml # Voids 6 4 # Bowel Movements 2 General Appearance: WD/WN HEENT: normocephalic, atraumatic Respiratory/Chest: chest wall non-tender, lungs clear Cardiovascular: normal peripheral pulses, normal rate Abdomen: normal bowel sounds, soft, non tender Genitourinary: normal external genitalia Extremities: no clubbing Neurologic/Psychiatric: domain architect II-XII grossly normal Lymphatic: no groin adenopathy Current Medications Medications (Trade) Dose Ordered Sig/[place] Route PRN Reason Start Time Stop Time Status Last Admin Dose Admin Acetaminophen (Tylenol) 650 mg Q6H PRN ORAL Mild Pain/Temp > 100.5 05/22/18 18:00 06/21/18 17:59 Acetaminophen/ Hydrocodone Bitart ([place] 5/325) 1 tab Q6H PRN ORAL Breakthrough Pain 05/22/18 18:00 05/29/18 17:59 Albuterol/ Ipratropium (Albuterol/ Ipratropium) 3 ml Q4H PRN HHN dyspnea 05/22/18 19:30 05/27/18 07:29 Albuterol/ Ipratropium (Albuterol/ Ipratropium) 3 ml Q8HRT HHN 05/22/18 23:00 05/27/18 14:59 05/25/18 08:01 Amlodipine Besylate (Norvasc) 2.5 mg DAILY ORAL 05/23/18 09:00 06/21/18 08:59 05/25/18 08:37 Atorvastatin Calcium (Lipitor) 40 mg QHS ORAL 05/22/18 21:00 06/21/18 20:59 05/24/18 20:54 Clonidine HCl (Catapres Tab) 0.1 mg Q4H PRN ORAL For High Blood Pressure 05/22/18 18:00 06/21/18 17:59 05/25/18 06:17 Clopidogrel Bisulfate (Plavix) 75 mg DAILY ORAL 05/23/18 09:00 06/21/18 08:59 05/25/18 08:36 Dextrose (Dextrose 50%) 25 ml STAT PRN IV Hypoglycemia 05/22/18 18:00 06/21/18 17:59 Dextrose (Dextrose 50%) 50 ml STAT PRN IV Hypoglycemia 05/22/18 18:00 06/21/18 17:59 Heparin Sodium (Porcine) (Heparin 5000 units/ml) 5,000 units EVERY 12 HOURS SUBQ 05/22/18 21:00 06/21/18 08:59 05/25/18 08:38 Hydroxyzine HCl (Atarax) 25 mg Q6H PRN ORAL Itching 05/22/18 18:00 06/21/18 17:59 Isosorbide Mononitrate (Imdur) 30 mg DAILY ORAL 05/23/18 09:00 06/22/18 08:59 05/25/18 08:37 Lorazepam (Ativan 2mg/ml 1ml) 0.5 mg Q4H PRN IV For Anxiety 05/22/18 18:00 05/29/18 17:59 Methylprednisolone Sodium Succinate (Solu-MEDROL) 60 mg EVERY 12 HOURS IV 05/24/18 21:00 06/21/18 11:59 05/25/18 08:38 Montelukast Sodium (Singulair) 10 mg DAILY ORAL 05/23/18 09:00 06/21/18 08:59 05/25/18 08:36 Morphine Sulfate (Morphine Sulfate) 2 mg Q4H PRN IVP severe pain 7-10 05/22/18 18:00 05/29/18 17:59 Nitroglycerin (Ntg) 0.4 mg Q5M X 3 DOSES PRN SL Prn Chest Pain 05/22/18 17:30 06/21/18 07:29 Ondansetron HCl (Zofran) 4 mg Q6H PRN IVP Nausea & Vomiting 05/22/18 18:00 06/21/18 17:59 Pantoprazole (Protonix) 40 mg DAILY ORAL 05/23/18 09:00 06/21/18 08:59 05/25/18 08:37 Phenytoin (Dilantin) 100 mg BEDTIME ORAL 05/22/18 21:00 06/21/18 20:59 05/24/18 20:54 Piperacillin Sod/ Tazobactam Sod 3.375 gm/Dextrose 110 ml @ 27.5 mls/hr EVERY 8 HOURS IVPB 05/22/18 22:00 05/27/18 08:59 05/25/18 06:17 Polyethylene Glycol (Miralax) 17 gm DAILY PRN ORAL Constipation 05/24/18 07:00 06/23/18 06:59 05/24/18 07:51 Pregabalin (Lyrica) 50 mg Q12HR ORAL 05/22/18 21:00 06/21/18 08:59 05/25/18 08:37 Promethazine HCl/ Codeine (Phenergan with Codeine) 5 ml Q6H PRN ORAL cough 05/22/18 18:00 06/21/18 17:59 05/25/18 06:17 Sennosides (Senokot) 1 tab DAILY ORAL 05/24/18 13:00 06/23/18 12:59 05/25/18 08:37 Temazepam (Restoril) 15 mg HSPRN PRN ORAL Insomnia 05/22/18 21:00 05/29/18 20:59 Theophylline (Fabrice-Dur) 100 mg EVERY 12 HOURS ORAL 05/22/18 21:00 06/21/18 08:59 05/25/18 08:37 Luis A Juares MD May 25, 2018 12:19
--- NOTE | 2018-05-25 12:59 | General Progress Note ---
Assessment/Plan Problem List: (1) Anxiety ICD Codes: F41.9 - Anxiety disorder, unspecified SNOMED: 56347318 (2) MDD (major depressive disorder), recurrent episode, moderate ICD Codes: F33.1 - Major depressive disorder, recurrent, moderate SNOMED: 56322177, 285591135 (3) Vascular dementia ICD Codes: F01.50 - Vascular dementia without behavioral disturbance SNOMED: 213627680 Assessment/Plan Prozac 20mg qam the pt has capacity to make decisions provided ro/st Subjective Date patient seen: May 25, 2018 Neurologic/Psychiatric: Reports: anxiety, depressed, emotional problems Allergies: Coded Allergies: VANCOMYCIN (Verified Allergy, Unknown, red eyes, itchying, 10/10/16) Uncoded Allergies: Canned Food (Allergy, Unknown, 03/22/18) Nausea/Vomitting/Indigestion Objective Last 24 Hour Vital Signs Date Time Temp Pulse Resp B/P (MAP) Pulse Ox O2 Delivery O2 Flow Rate FiO2 05/25/18 12:00 98.2 87 18 126/80 (95) 95 98.2 05/25/18 09:00 Nasal Cannula 2.0 05/25/18 08:37 129/73 05/25/18 08:37 76 129/73 05/25/18 08:10 76 20 100 Nasal Cannula 2.0 05/25/18 08:08 Nasal Cannula 2.0 28 05/25/18 08:08 97 Nasal Cannula 2.0 05/25/18 08:02 83 20 97 Nasal Cannula 2.0 05/25/18 08:00 97.7 81 18 129/73 (91) 100 97.7 05/25/18 06:17 172/89 05/25/18 04:00 98.1 79 18 172/89 (116) 95 98.1 05/25/18 00:00 97.4 86 18 154/89 (110) 97 97.4 05/24/18 23:42 75 20 99 Nasal Cannula 2.0 28 05/24/18 23:39 89 20 96 Nasal Cannula 2.0 28 05/24/18 21:00 Nasal Cannula 2.0 05/24/18 20:00 98.1 90 18 131/74 (93) 94 98.1 05/24/18 18:55 Nasal Cannula 2.0 28 05/24/18 18:55 97 Nasal Cannula 2.0 28 05/24/18 16:00 98.8 87 20 118/70 (86) 97 98.8 05/24/18 15:01 86 20 98 Nasal Cannula 2.0 28 05/24/18 15:00 85 20 97 Nasal Cannula 2.0 28 Intake and Output 05/24/18 05/25/18 19:00 07:00 Intake Total 1170.0 ml 420 ml Balance 1170.0 ml 420 ml Intake Oral 1060 ml 420 ml IV Total 110.0 ml # Voids 6 4 # Bowel Movements 2 Height (Feet): 4 Height (Inches): 10.00 Weight (Pounds): 120 General Appearance: no apparent distress, alert Neurologic: oriented x 3, responsive, depressed affect Sherin Holm MD May 25, 2018 12:59
--- NOTE | 2018-05-25 13:00 | Psych Consult Progress Note ---
Psych Consult Progress Note Consult (1) Anxiety ICD Codes: F41.9 - Anxiety disorder, unspecified SNOMED: 70027139 (2) MDD (major depressive disorder), recurrent episode, moderate ICD Codes: F33.1 - Major depressive disorder, recurrent, moderate SNOMED: 48989134, 090741709 (3) Vascular dementia ICD Codes: F01.50 - Vascular dementia without behavioral disturbance SNOMED: 789448027 Assessment/Plan Prozac 20mg qam the pt has capacity to make decisions provided ro/st Vital Signs Last 24 Hour Vital Signs Date Time Temp Pulse Resp B/P (MAP) Pulse Ox O2 Delivery O2 Flow Rate FiO2 05/25/18 12:00 98.2 87 18 126/80 (95) 95 98.2 05/25/18 09:00 Nasal Cannula 2.0 05/25/18 08:37 129/73 05/25/18 08:37 76 129/73 05/25/18 08:10 76 20 100 Nasal Cannula 2.0 28 05/25/18 08:08 Nasal Cannula 2.0 28 05/25/18 08:08 97 Nasal Cannula 2.0 28 05/25/18 08:02 83 20 97 Nasal Cannula 2.0 28 05/25/18 08:00 97.7 81 18 129/73 (91) 100 97.7 05/25/18 06:17 172/89 05/25/18 04:00 98.1 79 18 172/89 (116) 95 98.1 05/25/18 00:00 97.4 86 18 154/89 (110) 97 97.4 05/24/18 23:42 75 20 99 Nasal Cannula 2.0 28 05/24/18 23:39 89 20 96 Nasal Cannula 2.0 28 05/24/18 21:00 Nasal Cannula 2.0 05/24/18 20:00 98.1 90 18 131/74 (93) 94 98.1 05/24/18 18:55 Nasal Cannula 2.0 28 05/24/18 18:55 97 Nasal Cannula 2.0 28 05/24/18 16:00 98.8 87 20 118/70 (86) 97 98.8 05/24/18 15:01 86 20 98 Nasal Cannula 2.0 28 05/24/18 15:00 85 20 97 Nasal Cannula 2.0 28 Medications Current Medications Medications (Trade) Dose Ordered Sig/[place] Route PRN Reason Start Time Stop Time Status Last Admin Dose Admin Acetaminophen (Tylenol) 650 mg Q6H PRN ORAL Mild Pain/Temp > 100.5 05/22/18 18:00 06/21/18 17:59 Acetaminophen/ Hydrocodone Bitart ([place] 5/325) 1 tab Q6H PRN ORAL Breakthrough Pain 05/22/18 18:00 05/29/18 17:59 Albuterol/ Ipratropium (Albuterol/ Ipratropium) 3 ml Q4H PRN HHN dyspnea 05/22/18 19:30 05/27/18 07:29 Albuterol/ Ipratropium (Albuterol/ Ipratropium) 3 ml Q8HRT HHN 05/22/18 23:00 05/27/18 14:59 05/25/18 08:01 Amlodipine Besylate (Norvasc) 2.5 mg DAILY ORAL 05/23/18 09:00 06/21/18 08:59 05/25/18 08:37 Atorvastatin Calcium (Lipitor) 40 mg QHS ORAL 05/22/18 21:00 06/21/18 20:59 05/24/18 20:54 Clonidine HCl (Catapres Tab) 0.1 mg Q4H PRN ORAL For High Blood Pressure 05/22/18 18:00 06/21/18 17:59 05/25/18 06:17 Clopidogrel Bisulfate (Plavix) 75 mg DAILY ORAL 05/23/18 09:00 06/21/18 08:59 05/25/18 08:36 Dextrose (Dextrose 50%) 25 ml STAT PRN IV Hypoglycemia 05/22/18 18:00 06/21/18 17:59 Dextrose (Dextrose 50%) 50 ml STAT PRN IV Hypoglycemia 05/22/18 18:00 06/21/18 17:59 Heparin Sodium (Porcine) (Heparin 5000 units/ml) 5,000 units EVERY 12 HOURS SUBQ 05/22/18 21:00 06/21/18 08:59 05/25/18 08:38 Hydroxyzine HCl (Atarax) 25 mg Q6H PRN ORAL Itching 05/22/18 18:00 06/21/18 17:59 Isosorbide Mononitrate (Imdur) 30 mg DAILY ORAL 05/23/18 09:00 06/22/18 08:59 05/25/18 08:37 Lorazepam (Ativan 2mg/ml 1ml) 0.5 mg Q4H PRN IV For Anxiety 05/22/18 18:00 05/29/18 17:59 Methylprednisolone Sodium Succinate (Solu-MEDROL) 40 mg EVERY 12 HOURS IVP 05/25/18 21:00 06/21/18 11:59 Montelukast Sodium (Singulair) 10 mg DAILY ORAL 05/23/18 09:00 06/21/18 08:59 05/25/18 08:36 Morphine Sulfate (Morphine Sulfate) 2 mg Q4H PRN IVP severe pain 7-10 05/22/18 18:00 05/29/18 17:59 Nitroglycerin (Ntg) 0.4 mg Q5M X 3 DOSES PRN SL Prn Chest Pain 05/22/18 17:30 06/21/18 07:29 Ondansetron HCl (Zofran) 4 mg Q6H PRN IVP Nausea & Vomiting 05/22/18 18:00 06/21/18 17:59 Pantoprazole (Protonix) 40 mg DAILY ORAL 05/23/18 09:00 06/21/18 08:59 05/25/18 08:37 Phenytoin (Dilantin) 100 mg BEDTIME ORAL 05/22/18 21:00 06/21/18 20:59 05/24/18 20:54 Piperacillin Sod/ Tazobactam Sod 3.375 gm/Dextrose 110 ml @ 27.5 mls/hr EVERY 8 HOURS IVPB 05/22/18 22:00 05/27/18 08:59 05/25/18 06:17 Polyethylene Glycol (Miralax) 17 gm DAILY PRN ORAL Constipation 05/24/18 07:00 06/23/18 06:59 05/24/18 07:51 Pregabalin (Lyrica) 50 mg Q12HR ORAL 05/22/18 21:00 06/21/18 08:59 05/25/18 08:37 Promethazine HCl/ Codeine (Phenergan with Codeine) 5 ml Q6H PRN ORAL cough 05/22/18 18:00 06/21/18 17:59 05/25/18 06:17 Promethazine HCl/ Codeine (Phenergan with Codeine) 10 ml BEDTIME ORAL 05/25/18 21:00 06/24/18 20:59 Sennosides (Senokot) 1 tab DAILY ORAL 05/24/18 13:00 06/23/18 12:59 05/25/18 08:37 Temazepam (Restoril) 15 mg HSPRN PRN ORAL Insomnia 05/22/18 21:00 05/29/18 20:59 Theophylline (Fabrice-Dur) 100 mg EVERY 12 HOURS ORAL 05/22/18 21:00 06/21/18 08:59 05/25/18 08:37 Problems: (1) Anxiety (2) MDD (major depressive disorder), recurrent episode, moderate (3) Vascular dementia Sherin Holm MD May 25, 2018 13:00
--- NOTE | 2018-05-25 17:48 | Internal Med Progress Note ---
Subjective Date of Service: May 25, 2018 Physician Name TejalHank Attending Physician Shlomo Garcia MD Current Medications Medications (Trade) Dose Ordered Sig/[place] Route PRN Reason Start Time Stop Time Status Last Admin Dose Admin Acetaminophen (Tylenol) 650 mg Q6H PRN ORAL Mild Pain/Temp > 100.5 05/22/18 18:00 06/21/18 17:59 Acetaminophen/ Hydrocodone Bitart ([place] 5/325) 1 tab Q6H PRN ORAL Breakthrough Pain 05/22/18 18:00 05/29/18 17:59 Albuterol/ Ipratropium (Albuterol/ Ipratropium) 3 ml Q4H PRN HHN dyspnea 05/22/18 19:30 05/27/18 07:29 Albuterol/ Ipratropium (Albuterol/ Ipratropium) 3 ml Q8HRT HHN 05/22/18 23:00 05/27/18 14:59 05/25/18 14:22 Amlodipine Besylate (Norvasc) 2.5 mg DAILY ORAL 05/23/18 09:00 06/21/18 08:59 05/25/18 08:37 Atorvastatin Calcium (Lipitor) 40 mg QHS ORAL 05/22/18 21:00 06/21/18 20:59 05/24/18 20:54 Clonidine HCl (Catapres Tab) 0.1 mg Q4H PRN ORAL For High Blood Pressure 05/22/18 18:00 06/21/18 17:59 05/25/18 06:17 Clopidogrel Bisulfate (Plavix) 75 mg DAILY ORAL 05/23/18 09:00 06/21/18 08:59 05/25/18 08:36 Dextrose (Dextrose 50%) 25 ml STAT PRN IV Hypoglycemia 05/22/18 18:00 06/21/18 17:59 Dextrose (Dextrose 50%) 50 ml STAT PRN IV Hypoglycemia 05/22/18 18:00 06/21/18 17:59 Heparin Sodium (Porcine) (Heparin 5000 units/ml) 5,000 units EVERY 12 HOURS SUBQ 05/22/18 21:00 06/21/18 08:59 05/25/18 08:38 Hydroxyzine HCl (Atarax) 25 mg Q6H PRN ORAL Itching 05/22/18 18:00 06/21/18 17:59 Isosorbide Mononitrate (Imdur) 30 mg DAILY ORAL 05/23/18 09:00 06/22/18 08:59 05/25/18 08:37 Lorazepam (Ativan 2mg/ml 1ml) 0.5 mg Q4H PRN IV For Anxiety 05/22/18 18:00 05/29/18 17:59 Methylprednisolone Sodium Succinate (Solu-MEDROL) 40 mg EVERY 12 HOURS IVP 05/25/18 21:00 06/21/18 11:59 Montelukast Sodium (Singulair) 10 mg DAILY ORAL 05/23/18 09:00 06/21/18 08:59 05/25/18 08:36 Morphine Sulfate (Morphine Sulfate) 2 mg Q4H PRN IVP severe pain 7-10 05/22/18 18:00 05/29/18 17:59 Nitroglycerin (Ntg) 0.4 mg Q5M X 3 DOSES PRN SL Prn Chest Pain 05/22/18 17:30 06/21/18 07:29 Ondansetron HCl (Zofran) 4 mg Q6H PRN IVP Nausea & Vomiting 05/22/18 18:00 06/21/18 17:59 Pantoprazole (Protonix) 40 mg DAILY ORAL 05/23/18 09:00 06/21/18 08:59 05/25/18 08:37 Phenytoin (Dilantin) 100 mg BEDTIME ORAL 05/22/18 21:00 06/21/18 20:59 05/24/18 20:54 Piperacillin Sod/ Tazobactam Sod 3.375 gm/Dextrose 110 ml @ 27.5 mls/hr EVERY 8 HOURS IVPB 05/22/18 22:00 05/27/18 08:59 05/25/18 13:56 Polyethylene Glycol (Miralax) 17 gm DAILY PRN ORAL Constipation 05/24/18 07:00 06/23/18 06:59 05/24/18 07:51 Pregabalin (Lyrica) 50 mg Q12HR ORAL 05/22/18 21:00 06/21/18 08:59 05/25/18 08:37 Promethazine HCl/ Codeine (Phenergan with Codeine) 5 ml Q6H PRN ORAL cough 05/22/18 18:00 06/21/18 17:59 05/25/18 13:56 Promethazine HCl/ Codeine (Phenergan with Codeine) 10 ml BEDTIME ORAL 05/25/18 21:00 06/24/18 20:59 Sennosides (Senokot) 1 tab DAILY ORAL 05/24/18 13:00 06/23/18 12:59 05/25/18 08:37 Temazepam (Restoril) 15 mg HSPRN PRN ORAL Insomnia 05/22/18 21:00 05/29/18 20:59 Theophylline (Fabrice-Dur) 100 mg EVERY 12 HOURS ORAL 05/22/18 21:00 06/21/18 08:59 05/25/18 08:37 Allergies: Coded Allergies: VANCOMYCIN (Verified Allergy, Unknown, red eyes, itchying, 10/10/16) Uncoded Allergies: Canned Food (Allergy, Unknown, 03/22/18) Nausea/Vomitting/Indigestion ROS Limited/Unobtainable: No Constitutional: Reports: no symptoms HEENT: Reports: no symptoms Cardiovascular: Reports: no symptoms Respiratory: Reports: shortness of breath Gastrointestinal/Abdominal: Reports: no symptoms Genitourinary: Reports: no symptoms Neurologic/Psychiatric: Reports: no symptoms Subjective 83 YO F admitted with shortness of breath. Now asthma exacerbation with bronchitis. Cover for [facility] Alex-Dr Garcia. Objective Last Vital Signs Date Time Temp Pulse Resp B/P (MAP) Pulse Ox O2 Delivery O2 Flow Rate FiO2 05/25/18 14:32 84 20 100 Nasal Cannula 2.0 28 05/25/18 12:00 98.2 126/80 (95) 98.2 Intake and Output 05/24/18 05/25/18 19:00 07:00 Intake Total 1170.0 ml 420 ml Balance 1170.0 ml 420 ml Intake Oral 1060 ml 420 ml IV Total 110.0 ml # Voids 6 4 # Bowel Movements 2 Objective PHYSICAL EXAMINATION: GENERAL: The patient is a well-developed and well-nourished female, in no apparent distress. HEENT: Eyes, pupils equal and responsive to light and accommodation. Extraocular movements are intact. NECK: Supple without lymphadenopathy. CHEST: Few scattered wheezes in bilateral bases. Otherwise, clear to auscultation without wheezes or rales. CARDIOVASCULAR: Regular rhythm and rate. S1 and S2 are normal without murmurs, rubs, or gallops. ABDOMEN: Soft, nontender, and nondistended. Positive bowel sounds. No evidence of hepatosplenomegaly. Currently, no rebound or guarding noted. EXTREMITIES: Negative for clubbing, cyanosis, or edema. RECTAL/GENITAL: Refused. NEUROLOGIC: Cranial nerves II through XII are grossly intact without focal deficits. Motor strength is 5/5 bilaterally. Deep tendon reflexes are 2+ plantar Assessment/Plan Problem List: (1) Hypercholesterolemia (2) Shortness of breath (3) Bronchitis Assessment & Plan: See pulmonary note. Continue zosyn (4) Cerebral vascular disease (5) Hemorrhagic stroke (6) HTN (hypertension) Assessment & Plan: stable on amlodipine (7) Acute asthma exacerbation Assessment & Plan: continue albuterol nebs and IV solumedrol-see pulmonary note. (8) GERD (gastroesophageal reflux disease) (9) Seizure disorder Assessment & Plan: Continue dilantin (10) CAD (coronary artery disease) Assessment & Plan: continue isosorbide Status: progressing Hank Toure MD May 25, 2018 17:48
[2018-05-25 20:00] VITALS: BP 158/86
[2018-05-25] MEDS: Phenytoin 100mg cap ORAL SCH (22:07)
[2018-05-25] MEDS: Promethazine/Codeine 5ml UD ORAL SCH (22:07)
[2018-05-25] MEDS: Atorvastatin 20mg tab ORAL SCH (22:08)
[2018-05-25] MEDS: Solu-MEDROL 40mg Inj IVP SCH (22:09)
[2018-05-26] VITALS: BP 169/82
[2018-05-26 04:00] VITALS: BP 180/85
[2018-05-26] MEDS: Piperacillin/Tazobactam 3.375 GM in D5W 110 ML IVPB SCH (05:51)
[2018-05-26] MEDS: Albuterol/Ipratropium 3ml neb HHN SCH ×3 (07:18→23:05)
--- NOTE | 2018-05-26 07:49 | Consultation ---
History of Present Illness General Date patient seen: May 26, 2018 Chief Complaint: Dyspnea/Respdistress Reason for Consultation: Bacteremia Present Illness HPI Ms Harmon is a 83 yo female with PMHx of Asthma and CVA who presented from home on 05/22/18 with SOB. She was treated with solumedrol, breathing treatments and abx. He CXR and sputum cultures show no evidence of PNA and she has been on minimal O2. Currently she reports CP, N/V/D or fever. She says that she is at her breathing baseline which is intermittent O2 at home. She does say that the cough has continued and that she still has some sputum. ID consulted for positive blood culture PMHx/PSHx Asthma. Hx of CVA Hypertension. Hypercholesterolemia. GERD Seizure disorder. CAD SP stent in November of 2017. Appendectomy. SocHx No E/T/D FamHx Not contributory Allergies: Coded Allergies: VANCOMYCIN (Verified Allergy, Unknown, red eyes, itchying, 10/10/16) Uncoded Allergies: Canned Food (Allergy, Unknown, 03/22/18) Nausea/Vomitting/Indigestion Medication History Scheduled Albuterol Sulfate (Ventolin Hfa), 1 PUFF INH EVERY 6 HOURS Amlodipine Besylate* (Amlodipine Besylate*), 2.5 MG ORAL DAILY, (Reported) Atorvastatin (Lipitor), 40 MG ORAL DAILY, (Reported) Clopidogrel* (Clopidogrel*), 75 MG ORAL DAILY, (Reported) Dexlansoprazole (Dexilant), 60 MG ORAL QHS, (Reported) Dexlansoprazole (Dexilant), 60 MG ORAL DAILY, (Reported) Fluoxetine Hcl* (Prozac*), 20 MG ORAL DAILY, (Reported) Fluticasone/Salmeterol (Advair 250-50 Diskus), 1 PUFF INH EVERY 12 HOURS Labetalol Hcl* (Labetalol Hcl*), 100 MG IV DAILY, (Reported) Levocetirizine Dihydrochloride (Levocetirizine Dihydrochloride), 5 MG ORAL DAILY , (Reported) Levofloxacin* (Levaquin*), 500 MG ORAL DAILY Loratadine (Loratadine), 10 MG PO DAILY, (Reported) Montelukast Sodium (Montelukast Sodium), 10 MG ORAL DAILY, (Reported) Montelukast Sodium* (Montelukast Sodium*), 10 MG ORAL DAILY, (Reported) Pantoprazole* (Protonix*), 40 MG ORAL DAILY, (Reported) Phenytoin Sodium Extended* (Phenytoin Sodium Extended*), 100 MG ORAL DAILY, ( Reported) Phenytoin Sodium Extended* (Phenytoin Sodium Extended*), 100 MG ORAL BEDTIME, ( Reported) Pregabalin (Lyrica), 50 MG ORAL Q12HR, (Reported) Valsartan/Hydrochlorothiazide 160-12.5 (Valsartan-Hctz 160-12.5 Mg Tab), 1 TAB ORAL Q12HR, (Reported) Scheduled PRN Codeine/Promethazine Hcl* (Promethazine-Codeine Syrup*), 5 ML ORAL Q8HR PRN for For Cough, (Reported) Hydroxyzine HCl (Hydroxyzine HCl), 25 MG ORAL Q6H PRN Miscellaneous Medications Isosorbide (Isosorbide), 30 MG MC, (Reported) Methylprednisolone (Medrol), 4 MG PO, (Reported) Prednisone (Prednisone), 40 MG PO, (Reported) Patient History Healthcare decision maker Resuscitation status Full Code Advanced Directive on File Review of Systems All Other Systems: negative except mentioned in HPI Physical Exam Last 24 Hour Vital Signs Date Time Temp Pulse Resp B/P (MAP) Pulse Ox O2 Delivery O2 Flow Rate FiO2 05/26/18 07:28 84 16 98 Nasal Cannula 2.0 05/26/18 07:19 Nasal Cannula 2.0 05/26/18 07:19 79 18 97 Nasal Cannula 2.0 05/26/18 07:19 97 Nasal Cannula 2.0 05/26/18 04:49 180/85 05/26/18 04:00 97.1 83 17 180/85 (116) 96 97.1 05/26/18 00:22 169/82 05/26/18 00:00 97.6 80 17 169/82 (111) 95 97.6 05/25/18 22:48 83 16 98 Room Air 21 05/25/18 22:38 81 18 95 Room Air 21 05/25/18 21:00 Nasal Cannula 2.0 05/25/18 20:00 97.4 75 18 158/86 (110) 95 97.4 05/25/18 19:42 Nasal Cannula 2.0 28 05/25/18 19:42 97 Nasal Cannula 2.0 28 05/25/18 14:32 84 20 100 Nasal Cannula 2.0 28 05/25/18 14:23 89 20 96 Nasal Cannula 2.0 28 05/25/18 12:00 98.2 87 18 126/80 (95) 95 98.2 05/25/18 09:00 Nasal Cannula 2.0 05/25/18 08:37 129/73 05/25/18 08:37 76 129/73 05/25/18 08:10 76 20 100 Nasal Cannula 2.0 28 05/25/18 08:08 Nasal Cannula 2.0 28 05/25/18 08:08 97 Nasal Cannula 2.0 28 05/25/18 08:02 83 20 97 Nasal Cannula 2.0 05/25/18 08:00 97.7 81 18 129/73 (91) 100 97.7 Intake and Output 05/25/18 05/26/18 19:00 07:00 Intake Total 820.0 ml Balance 820.0 ml Intake Oral 600 ml IV Total 220.0 ml # Voids 4 Height (Feet): 4 Height (Inches): 10.00 Weight (Pounds): 120 Medications Current Medications Medications (Trade) Dose Ordered Sig/[place] Route PRN Reason Start Time Stop Time Status Last Admin Dose Admin Acetaminophen (Tylenol) 650 mg Q6H PRN ORAL Mild Pain/Temp > 100.5 05/22/18 18:00 06/21/18 17:59 Acetaminophen/ Hydrocodone Bitart ([place] 5/325) 1 tab Q6H PRN ORAL Breakthrough Pain 05/22/18 18:00 05/29/18 17:59 Albuterol/ Ipratropium (Albuterol/ Ipratropium) 3 ml Q4H PRN HHN dyspnea 05/22/18 19:30 05/27/18 07:29 Albuterol/ Ipratropium (Albuterol/ Ipratropium) 3 ml Q8HRT HHN 05/22/18 23:00 05/27/18 14:59 05/26/18 07:18 Amlodipine Besylate (Norvasc) 2.5 mg DAILY ORAL 05/23/18 09:00 06/21/18 08:59 05/25/18 08:37 Atorvastatin Calcium (Lipitor) 40 mg QHS ORAL 05/22/18 21:00 06/21/18 20:59 05/25/18 22:08 Clonidine HCl (Catapres Tab) 0.1 mg Q4H PRN ORAL For High Blood Pressure 05/22/18 18:00 06/21/18 17:59 05/26/18 04:49 Clopidogrel Bisulfate (Plavix) 75 mg DAILY ORAL 05/23/18 09:00 06/21/18 08:59 05/25/18 08:36 Dextrose (Dextrose 50%) 25 ml STAT PRN IV Hypoglycemia 05/22/18 18:00 06/21/18 17:59 Dextrose (Dextrose 50%) 50 ml STAT PRN IV Hypoglycemia 05/22/18 18:00 06/21/18 17:59 Heparin Sodium (Porcine) (Heparin 5000 units/ml) 5,000 units EVERY 12 HOURS SUBQ 05/22/18 21:00 06/21/18 08:59 05/25/18 22:11 Hydroxyzine HCl (Atarax) 25 mg Q6H PRN ORAL Itching 05/22/18 18:00 06/21/18 17:59 Isosorbide Mononitrate (Imdur) 30 mg DAILY ORAL 05/23/18 09:00 06/22/18 08:59 05/25/18 08:37 Lorazepam (Ativan 2mg/ml 1ml) 0.5 mg Q4H PRN IV For Anxiety 05/22/18 18:00 05/29/18 17:59 05/26/18 04:49 Methylprednisolone Sodium Succinate (Solu-MEDROL) 40 mg EVERY 12 HOURS IVP 05/25/18 21:00 06/21/18 11:59 05/25/18 22:09 Montelukast Sodium (Singulair) 10 mg DAILY ORAL 05/23/18 09:00 06/21/18 08:59 05/25/18 08:36 Morphine Sulfate (Morphine Sulfate) 2 mg Q4H PRN IVP severe pain 7-10 05/22/18 18:00 05/29/18 17:59 Nitroglycerin (Ntg) 0.4 mg Q5M X 3 DOSES PRN SL Prn Chest Pain 05/22/18 17:30 06/21/18 07:29 Ondansetron HCl (Zofran) 4 mg Q6H PRN IVP Nausea & Vomiting 05/22/18 18:00 06/21/18 17:59 Pantoprazole (Protonix) 40 mg DAILY ORAL 05/23/18 09:00 06/21/18 08:59 05/25/18 08:37 Phenytoin (Dilantin) 100 mg BEDTIME ORAL 05/22/18 21:00 06/21/18 20:59 05/25/18 22:07 Piperacillin Sod/ Tazobactam Sod 3.375 gm/Dextrose 110 ml @ 27.5 mls/hr EVERY 8 HOURS IVPB 05/22/18 22:00 05/27/18 08:59 05/26/18 05:51 Polyethylene Glycol (Miralax) 17 gm DAILY PRN ORAL Constipation 05/24/18 07:00 06/23/18 06:59 05/24/18 07:51 Pregabalin (Lyrica) 50 mg Q12HR ORAL 05/22/18 21:00 06/21/18 08:59 05/25/18 22:08 Promethazine HCl/ Codeine (Phenergan with Codeine) 5 ml Q6H PRN ORAL cough 05/22/18 18:00 06/21/18 17:59 05/25/18 13:56 Promethazine HCl/ Codeine (Phenergan with Codeine) 10 ml BEDTIME ORAL 05/25/18 21:00 06/24/18 20:59 05/25/18 22:07 Sennosides (Senokot) 1 tab DAILY ORAL 05/24/18 13:00 06/23/18 12:59 05/25/18 08:37 Temazepam (Restoril) 15 mg HSPRN PRN ORAL Insomnia 05/22/18 21:00 05/29/18 20:59 Theophylline (Fabrice-Dur) 100 mg EVERY 12 HOURS ORAL 05/22/18 21:00 06/21/18 08:59 05/25/18 22:10 Objective Narrative Gen: NAD, well appearing, alert HEENT: NCAT, MMM, EOMI, PERRL, No Oral lesion, no scleral icterus NECK: full range of motion, supple, no meningismus, No LAD, No JVD LUNGS: Tight lung with poor air flow. Some wheezing B/L CARDS: RRR, S1, S2, No M/R/G ABD: Soft, NT, ND, No R/G, + BS, No HSM, No Masses : Deferred Ext: C/C/E, Pulses 2+ B/L (DP, Rad): NEURO: A/O x 4, Strength and Sensation Grossly intact PSYCH: mood/affect normal SKIN: warm/dry, erythema of right aaron where patient has been scratching Assessment/Plan Assessment/Plan 83 yo female with PMHx of Asthma and CVA who presented from home on 05/22/18 with SOB. Bacteremia Likely contaminant 05/22/18 Blood Cx GPC sets Respiratory distress Resolved Likely Asthma exacerbation +/- Bronchitis or viral URI vs less likely CXR Possible small bilateral pleural effusions. No acute process otherwise Asthma. Hx of CVA Hypertension. Hypercholesterolemia. GERD Seizure disorder. CAD SP stent in November of 2017. Plan: - D/C Zosyn #4 - Start Azithromycin and Ceftriaxone Could D/C on short course of Levofloxacin to cover any bacterial infection - (End date 05/30/18) - f/u Blood Cultures - Breathing Treatments - Supportive care Thank you for this consult. We will continue to follow the patient during this hospitalization. David Temple MD May 26, 2018 07:48
[2018-05-26 08:00] VITALS: BP 156/89
[2018-05-26] MEDS: Heparin 5000 units/ml inj SUBQ SCH (09:00)
[2018-05-26] MEDS: Solu-MEDROL 40mg Inj IVP SCH (09:00)
[2018-05-26] MEDS: Theophylline ER 100mg ORAL SCH ×2 (09:00→20:14)
[2018-05-26] MEDS: Montelukast 10mg tablet ORAL SCH (09:01)
[2018-05-26] MEDS: Sennosides 8.6mg ORAL SCH (09:02)
[2018-05-26] MEDS: Lyrica 50mg cap ORAL SCH ×2 (09:02→20:14)
[2018-05-26] MEDS: Imdur 30mg tab ORAL SCH (09:02)
--- NOTE | 2018-05-26 09:53 | Pulmonology Progress Note ---
Assessment/Plan Assessment/Plan ASSESSMENT acute respiratory failure acute asthma exacerbation cerebrovascular disease with history of hemorrhagic stroke Seizure disorder Hypertension Hypercholesterolemia CAD vascular dementia major depressive disorder anxiety disorder PLAN OF CARE Med Surg floor O2 to keep pulse ox above 92%, pulmonary toilet, IV steroids taper down HHN with bronchodilators ATC + prn add Budesonide inh q 12 abx, sputum cx+ Suha CXR negative trial of theophylline antitussive prn fup with CXR DVT prophylaxis BP with CCB a/PLT Rx with Plavix + statin GI prophylaxis seizure precautions , Dilantin bowel regimen supportive care psych follows , Prozac case discussed and evaluated by supervising physician Subjective Allergies: Coded Allergies: VANCOMYCIN (Verified Allergy, Unknown, red eyes, itchying, 10/10/16) Uncoded Allergies: Canned Food (Allergy, Unknown, 03/22/18) Nausea/Vomitting/Indigestion Subjective still with cough, congestion, wheezing on supplemental oxygem no chest pain, no fever Objective Last 24 Hour Vital Signs Date Time Temp Pulse Resp B/P (MAP) Pulse Ox O2 Delivery O2 Flow Rate FiO2 05/26/18 09:02 156/89 05/26/18 09:01 76 156/89 05/26/18 08:00 97.6 76 22 156/89 (111) 98 97.6 05/26/18 07:28 84 16 98 Nasal Cannula 2.0 05/26/18 07:19 Nasal Cannula 2.0 28 05/26/18 07:19 79 18 97 Nasal Cannula 2.0 28 05/26/18 07:19 97 Nasal Cannula 2.0 05/26/18 04:49 180/85 05/26/18 04:00 97.1 83 17 180/85 (116) 96 97.1 05/26/18 00:22 169/82 05/26/18 00:00 97.6 80 17 169/82 (111) 95 97.6 05/25/18 22:48 83 16 98 Room Air 21 05/25/18 22:38 81 18 95 Room Air 21 05/25/18 21:00 Nasal Cannula 2.0 05/25/18 20:00 97.4 75 18 158/86 (110) 95 97.4 05/25/18 19:42 Nasal Cannula 2.0 05/25/18 19:42 97 Nasal Cannula 2.0 05/25/18 14:32 84 20 100 Nasal Cannula 2.0 28 05/25/18 14:23 89 20 96 Nasal Cannula 2.0 28 05/25/18 12:00 98.2 87 18 126/80 (95) 95 98.2 Intake and Output 05/25/18 05/26/18 19:00 07:00 Intake Total 820.0 ml Balance 820.0 ml Intake Oral 600 ml IV Total 220.0 ml # Voids 4 General Appearance: no acute distress, other - elderly alert predominantly Indonesian with some [place] speaking female HEENT: normocephalic, atraumatic, anicteric, mucous membranes moist Respiratory/Chest: expiratory wheezing - bilaterallly Cardiovascular: normal rate Abdomen: normal bowel sounds, soft, non tender, non distended Extremities: no edema, pedal pulses normal Neurologic/Psychiatric: alert, responsive, normal mood/affect Current Medications Medications (Trade) Dose Ordered Sig/[place] Route PRN Reason Start Time Stop Time Status Last Admin Dose Admin Acetaminophen (Tylenol) 650 mg Q6H PRN ORAL Mild Pain/Temp > 100.5 05/22/18 18:00 06/21/18 17:59 Acetaminophen/ Hydrocodone Bitart ([place] 5/325) 1 tab Q6H PRN ORAL Breakthrough Pain 05/22/18 18:00 05/29/18 17:59 Albuterol/ Ipratropium (Albuterol/ Ipratropium) 3 ml Q4H PRN HHN dyspnea 05/22/18 19:30 05/27/18 07:29 Albuterol/ Ipratropium (Albuterol/ Ipratropium) 3 ml Q8HRT HHN 05/22/18 23:00 05/27/18 14:59 05/26/18 07:18 Amlodipine Besylate (Norvasc) 2.5 mg DAILY ORAL 05/23/18 09:00 06/21/18 08:59 05/26/18 09:01 Atorvastatin Calcium (Lipitor) 40 mg QHS ORAL 05/22/18 21:00 06/21/18 20:59 05/25/18 22:08 Clonidine HCl (Catapres Tab) 0.1 mg Q4H PRN ORAL For High Blood Pressure 05/22/18 18:00 06/21/18 17:59 05/26/18 04:49 Clopidogrel Bisulfate (Plavix) 75 mg DAILY ORAL 05/23/18 09:00 06/21/18 08:59 05/26/18 09:01 Dextrose (Dextrose 50%) 25 ml STAT PRN IV Hypoglycemia 05/22/18 18:00 06/21/18 17:59 Dextrose (Dextrose 50%) 50 ml STAT PRN IV Hypoglycemia 05/22/18 18:00 06/21/18 17:59 Heparin Sodium (Porcine) (Heparin 5000 units/ml) 5,000 units EVERY 12 HOURS SUBQ 05/22/18 21:00 06/21/18 08:59 05/25/18 22:11 Hydroxyzine HCl (Atarax) 25 mg Q6H PRN ORAL Itching 05/22/18 18:00 06/21/18 17:59 Isosorbide Mononitrate (Imdur) 30 mg DAILY ORAL 05/23/18 09:00 06/22/18 08:59 05/26/18 09:02 Lorazepam (Ativan 2mg/ml 1ml) 0.5 mg Q4H PRN IV For Anxiety 05/22/18 18:00 05/29/18 17:59 05/26/18 04:49 Methylprednisolone Sodium Succinate (Solu-MEDROL) 40 mg EVERY 12 HOURS IVP 05/25/18 21:00 06/21/18 11:59 05/26/18 09:00 Montelukast Sodium (Singulair) 10 mg DAILY ORAL 05/23/18 09:00 06/21/18 08:59 05/26/18 09:01 Morphine Sulfate (Morphine Sulfate) 2 mg Q4H PRN IVP severe pain 7-10 05/22/18 18:00 05/29/18 17:59 Nitroglycerin (Ntg) 0.4 mg Q5M X 3 DOSES PRN SL Prn Chest Pain 05/22/18 17:30 06/21/18 07:29 Ondansetron HCl (Zofran) 4 mg Q6H PRN IVP Nausea & Vomiting 05/22/18 18:00 06/21/18 17:59 Pantoprazole (Protonix) 40 mg DAILY ORAL 05/23/18 09:00 06/21/18 08:59 05/26/18 09:01 Phenytoin (Dilantin) 100 mg BEDTIME ORAL 05/22/18 21:00 06/21/18 20:59 05/25/18 22:07 Piperacillin Sod/ Tazobactam Sod 3.375 gm/Dextrose 110 ml @ 27.5 mls/hr EVERY 8 HOURS IVPB 05/22/18 22:00 05/27/18 08:59 05/26/18 05:51 Polyethylene Glycol (Miralax) 17 gm DAILY PRN ORAL Constipation 05/24/18 07:00 06/23/18 06:59 05/24/18 07:51 Pregabalin (Lyrica) 50 mg Q12HR ORAL 05/22/18 21:00 06/21/18 08:59 05/26/18 09:02 Promethazine HCl/ Codeine (Phenergan with Codeine) 5 ml Q6H PRN ORAL cough 05/22/18 18:00 06/21/18 17:59 05/25/18 13:56 Promethazine HCl/ Codeine (Phenergan with Codeine) 10 ml BEDTIME ORAL 05/25/18 21:00 06/24/18 20:59 05/25/18 22:07 Sennosides (Senokot) 1 tab DAILY ORAL 05/24/18 13:00 06/23/18 12:59 05/26/18 09:02 Temazepam (Restoril) 15 mg HSPRN PRN ORAL Insomnia 05/22/18 21:00 05/29/18 20:59 Theophylline (Fabrice-Dur) 100 mg EVERY 12 HOURS ORAL 05/22/18 21:00 06/21/18 08:59 05/26/18 09:00 Jessica Landry NP May 26, 2018 09:53
[2018-05-26] MEDS: cefTRIAXone 1 GM in D5W 55 ML IVPB SCH (11:59)
[2018-05-26 12:00] VITALS: BP 144/68
--- NOTE | 2018-05-26 15:02 | Internal Med Progress Note ---
Subjective Date of Service: May 26, 2018 Physician Name Toure,Hank Attending Physician Shlomo Garcia MD Current Medications Medications (Trade) Dose Ordered Sig/[place] Route PRN Reason Start Time Stop Time Status Last Admin Dose Admin Acetaminophen (Tylenol) 650 mg Q6H PRN ORAL Mild Pain/Temp > 100.5 05/22/18 18:00 06/21/18 17:59 Acetaminophen/ Hydrocodone Bitart ([place] 5/325) 1 tab Q6H PRN ORAL Breakthrough Pain 05/22/18 18:00 05/29/18 17:59 Albuterol/ Ipratropium (Albuterol/ Ipratropium) 3 ml Q4H PRN HHN dyspnea 05/22/18 19:30 05/27/18 07:29 Albuterol/ Ipratropium (Albuterol/ Ipratropium) 3 ml Q8HRT HHN 05/22/18 23:00 05/27/18 14:59 05/26/18 07:18 Amlodipine Besylate (Norvasc) 2.5 mg DAILY ORAL 05/23/18 09:00 06/21/18 08:59 05/26/18 09:01 Atorvastatin Calcium (Lipitor) 40 mg QHS ORAL 05/22/18 21:00 06/21/18 20:59 05/25/18 22:08 Budesonide (Pulmicort) 0.25 mg Q12HRT HHN 05/26/18 22:00 06/25/18 21:59 Ceftriaxone Sodium 1 gm/ Dextrose 55 ml @ 110 mls/hr Q24H IVPB 05/26/18 12:00 06/02/18 11:59 05/26/18 11:59 Clonidine HCl (Catapres Tab) 0.1 mg Q4H PRN ORAL For High Blood Pressure 05/22/18 18:00 06/21/18 17:59 05/26/18 04:49 Clopidogrel Bisulfate (Plavix) 75 mg DAILY ORAL 05/23/18 09:00 06/21/18 08:59 05/26/18 09:01 Dextrose (Dextrose 50%) 25 ml STAT PRN IV Hypoglycemia 05/22/18 18:00 06/21/18 17:59 Dextrose (Dextrose 50%) 50 ml STAT PRN IV Hypoglycemia 05/22/18 18:00 06/21/18 17:59 Doxycycline Monohydrate (Vibramycin) 100 mg EVERY 12 HOURS ORAL 05/26/18 21:00 06/02/18 20:59 Heparin Sodium (Porcine) (Heparin 5000 units/ml) 5,000 units EVERY 12 HOURS SUBQ 05/22/18 21:00 06/21/18 08:59 05/25/18 22:11 Hydroxyzine HCl (Atarax) 25 mg Q6H PRN ORAL Itching 05/22/18 18:00 06/21/18 17:59 05/26/18 11:04 Isosorbide Mononitrate (Imdur) 30 mg DAILY ORAL 05/23/18 09:00 06/22/18 08:59 05/26/18 09:02 Lorazepam (Ativan 2mg/ml 1ml) 0.5 mg Q4H PRN IV For Anxiety 05/22/18 18:00 05/29/18 17:59 05/26/18 04:49 Methylprednisolone Sodium Succinate (Solu-MEDROL) 40 mg DAILY IVP 05/27/18 09:00 06/21/18 11:59 Montelukast Sodium (Singulair) 10 mg DAILY ORAL 05/23/18 09:00 06/21/18 08:59 05/26/18 09:01 Morphine Sulfate (Morphine Sulfate) 2 mg Q4H PRN IVP severe pain 7-10 05/22/18 18:00 05/29/18 17:59 Nitroglycerin (Ntg) 0.4 mg Q5M X 3 DOSES PRN SL Prn Chest Pain 05/22/18 17:30 06/21/18 07:29 Ondansetron HCl (Zofran) 4 mg Q6H PRN IVP Nausea & Vomiting 05/22/18 18:00 06/21/18 17:59 Pantoprazole (Protonix) 40 mg DAILY ORAL 05/23/18 09:00 06/21/18 08:59 05/26/18 09:01 Phenytoin (Dilantin) 100 mg BEDTIME ORAL 05/22/18 21:00 06/21/18 20:59 05/25/18 22:07 Polyethylene Glycol (Miralax) 17 gm DAILY PRN ORAL Constipation 05/24/18 07:00 06/23/18 06:59 05/24/18 07:51 Pregabalin (Lyrica) 50 mg Q12HR ORAL 05/22/18 21:00 06/21/18 08:59 05/26/18 09:02 Promethazine HCl/ Codeine (Phenergan with Codeine) 5 ml Q6H PRN ORAL cough 05/22/18 18:00 06/21/18 17:59 05/25/18 13:56 Promethazine HCl/ Codeine (Phenergan with Codeine) 10 ml BEDTIME ORAL 05/25/18 21:00 06/24/18 20:59 05/25/18 22:07 Sennosides (Senokot) 1 tab DAILY ORAL 05/24/18 13:00 06/23/18 12:59 05/26/18 09:02 Temazepam (Restoril) 15 mg HSPRN PRN ORAL Insomnia 05/22/18 21:00 05/29/18 20:59 Theophylline (Fabrice-Dur) 100 mg EVERY 12 HOURS ORAL 05/22/18 21:00 06/21/18 08:59 05/26/18 09:00 Allergies: Coded Allergies: VANCOMYCIN (Verified Allergy, Unknown, red eyes, itchying, 10/10/16) Uncoded Allergies: Canned Food (Allergy, Unknown, 03/22/18) Nausea/Vomitting/Indigestion ROS Limited/Unobtainable: No Constitutional: Reports: no symptoms HEENT: Reports: no symptoms Cardiovascular: Reports: no symptoms Respiratory: Reports: shortness of breath Gastrointestinal/Abdominal: Reports: no symptoms Genitourinary: Reports: no symptoms Neurologic/Psychiatric: Reports: no symptoms Subjective 83 YO F admitted with shortness of breath. Now asthma exacerbation with bronchitis. Cover for Int Alex-Dr Garcia. Objective Last Vital Signs Date Time Temp Pulse Resp B/P (MAP) Pulse Ox O2 Delivery O2 Flow Rate FiO2 05/26/18 12:00 97.9 82 22 144/68 (93) 95 97.9 05/26/18 09:00 Nasal Cannula 2.0 05/26/18 07:28 28 Intake and Output 05/25/18 05/26/18 19:00 07:00 Intake Total 820.0 ml Balance 820.0 ml Intake Oral 600 ml IV Total 220.0 ml # Voids 4 Objective PHYSICAL EXAMINATION: GENERAL: The patient is a well-developed and well-nourished female, in no apparent distress. HEENT: Eyes, pupils equal and responsive to light and accommodation. Extraocular movements are intact. NECK: Supple without lymphadenopathy. CHEST: Few scattered wheezes in bilateral bases. Otherwise, clear to auscultation without wheezes or rales. CARDIOVASCULAR: Regular rhythm and rate. S1 and S2 are normal without murmurs, rubs, or gallops. ABDOMEN: Soft, nontender, and nondistended. Positive bowel sounds. No evidence of hepatosplenomegaly. Currently, no rebound or guarding noted. EXTREMITIES: Negative for clubbing, cyanosis, or edema. RECTAL/GENITAL: Refused. NEUROLOGIC: Cranial nerves II through XII are grossly intact without focal deficits. Motor strength is 5/5 bilaterally. Deep tendon reflexes are 2+ plantar Assessment/Plan Problem List: (1) Hypercholesterolemia (2) Shortness of breath (3) Bronchitis Assessment & Plan: See pulmonary note. Continue zosyn (4) Cerebral vascular disease (5) Hemorrhagic stroke (6) HTN (hypertension) Assessment & Plan: stable on amlodipine (7) Acute asthma exacerbation Assessment & Plan: continue albuterol nebs and IV solumedrol-see pulmonary note. (8) GERD (gastroesophageal reflux disease) (9) Seizure disorder Assessment & Plan: Continue dilantin (10) CAD (coronary artery disease) Assessment & Plan: continue isosorbide Status: progressing Hank Toure MD May 26, 2018 15:02
[2018-05-26 16:00] VITALS: BP 142/70
[2018-05-26 20:00] VITALS: BP 129/77
[2018-05-26] MEDS: Phenytoin 100mg cap ORAL SCH (20:14)
[2018-05-26] MEDS: Atorvastatin 20mg tab ORAL SCH (20:15)
[2018-05-26] MEDS: Promethazine/Codeine 5ml UD ORAL SCH (20:15)
[2018-05-26] MEDS: Budesonide HHN 0.25mg/2ml ud HHN SCH (23:05)
[2018-05-27] VITALS: BP 124/64
[2018-05-27 04:00] VITALS: BP 155/91
[2018-05-27] MEDS: Albuterol/Ipratropium 3ml neb HHN SCH ×2 (07:56→22:53)
[2018-05-27 08:00] VITALS: BP 164/81
--- NOTE | 2018-05-27 08:16 | Pulmonology Progress Note ---
Assessment/Plan Assessment/Plan ASSESSMENT acute respiratory failure acute asthma exacerbation cerebrovascular disease with history of hemorrhagic stroke Seizure disorder Hypertension Hypercholesterolemia CAD vascular dementia major depressive disorder anxiety disorder PLAN OF CARE Med Surg floor O2 to keep pulse ox above 92%, pulmonary toilet, IV steroids taper down and change to oral medrol dose pack in am HHN with bronchodilators ATC + prn continue Budesonide inh q 12 abx, sputum cx+ Suha CXR negative trial of theophylline antitussive prn fup CXR this am - no acute CP disease DVT prophylaxis BP with CCB a/PLT Rx with Plavix + statin GI prophylaxis seizure precautions , Dilantin bowel regimen supportive care psych follows , Prozac dc plan case discussed and evaluated by supervising physician Subjective Allergies: Coded Allergies: VANCOMYCIN (Verified Allergy, Unknown, red eyes, itchying, 10/10/16) Uncoded Allergies: Canned Food (Allergy, Unknown, 03/22/18) Nausea/Vomitting/Indigestion Subjective still with congestion and wheezing, but improving on supplemental oxygem no chest pain, no fever Objective Last 24 Hour Vital Signs Date Time Temp Pulse Resp B/P (MAP) Pulse Ox O2 Delivery O2 Flow Rate FiO2 05/27/18 08:08 79 20 99 Nasal Cannula 2.0 28 05/27/18 08:00 91 20 98 Nasal Cannula 2.0 28 05/27/18 07:58 Nasal Cannula 2.0 28 05/27/18 07:57 98 Nasal Cannula 2.0 28 05/27/18 04:00 97.5 85 18 155/91 (112) 97 97.5 05/27/18 00:00 98.0 81 19 124/64 (84) 97 98.0 05/26/18 23:37 86 20 99 Nasal Cannula 2.0 28 05/26/18 23:30 84 18 97 Nasal Cannula 2.0 28 05/26/18 23:16 78 18 99 Nasal Cannula 2.0 28 05/26/18 23:12 28 05/26/18 23:08 74 18 96 Nasal Cannula 2.0 28 05/26/18 21:00 Nasal Cannula 2.0 05/26/18 20:00 98.7 81 22 129/77 (94) 97 98.7 05/26/18 19:15 97 Room Air 21 05/26/18 19:15 Room Air 21 9/22/18 16:00 97.9 87 22 142/70 (94) 94 97.9 05/26/18 15:26 85 20 99 Room Air 21 05/26/18 15:17 85 20 96 Room Air 21 05/26/18 12:00 97.9 82 22 144/68 (93) 95 97.9 05/26/18 09:02 156/89 05/26/18 09:01 76 156/89 05/26/18 09:00 Nasal Cannula 2.0 Intake and Output 05/26/18 05/27/18 19:00 07:00 Intake Total 840 ml 200 ml Balance 840 ml 200 ml Intake Oral 840 ml 200 ml # Voids 6 2 # Bowel Movements 1 1 Objective General Appearance: no acute distress, elderly alert predominantly Green[place]ic with some Albanian speaking female HEENT: normocephalic, atraumatic, anicteric, mucous membranes moist Respiratory/Chest: bilateral expiratory wheezes Cardiovascular: normal rate Abdomen: normal bowel sounds, soft, non tender, non distended Extremities: no edema, pedal pulses normal Neurologic/Psychiatric: alert, oriented , responsive, normal mood/affect Current Medications Medications (Trade) Dose Ordered Sig/[place] Route PRN Reason Start Time Stop Time Status Last Admin Dose Admin Acetaminophen (Tylenol) 650 mg Q6H PRN ORAL Mild Pain/Temp > 100.5 05/22/18 18:00 06/21/18 17:59 Acetaminophen/ Hydrocodone Bitart ([place] 5/325) 1 tab Q6H PRN ORAL Breakthrough Pain 05/22/18 18:00 05/29/18 17:59 Albuterol/ Ipratropium (Albuterol/ Ipratropium) 3 ml Q8HRT [facility] 05/22/18 23:00 05/27/18 14:59 05/27/18 07:56 Amlodipine Besylate (Norvasc) 2.5 mg DAILY ORAL 05/23/18 09:00 06/21/18 08:59 05/26/18 09:01 Atorvastatin Calcium (Lipitor) 40 mg QHS ORAL 05/22/18 21:00 06/21/18 20:59 05/26/18 20:15 Budesonide (Pulmicort) 0.25 mg Q12HRT [facility] 05/26/18 22:00 06/25/18 21:59 05/26/18 23:05 Ceftriaxone Sodium 1 gm/ Dextrose 55 ml @ 110 mls/hr Q24H IVPB 05/26/18 12:00 06/02/18 11:59 05/26/18 11:59 Clonidine HCl (Catapres Tab) 0.1 mg Q4H PRN ORAL For High Blood Pressure 05/22/18 18:00 06/21/18 17:59 05/26/18 04:49 Clopidogrel Bisulfate (Plavix) 75 mg DAILY ORAL 05/23/18 09:00 06/21/18 08:59 05/26/18 09:01 Dextrose (Dextrose 50%) 25 ml STAT PRN IV Hypoglycemia 05/22/18 18:00 06/21/18 17:59 Dextrose (Dextrose 50%) 50 ml STAT PRN IV Hypoglycemia 05/22/18 18:00 06/21/18 17:59 Doxycycline Monohydrate (Vibramycin) 100 mg EVERY 12 HOURS ORAL 05/26/18 21:00 06/02/18 20:59 05/26/18 20:15 Hydroxyzine HCl (Atarax) 25 mg Q6H PRN ORAL Itching 05/22/18 18:00 06/21/18 17:59 05/26/18 11:04 Isosorbide Mononitrate (Imdur) 30 mg DAILY ORAL 05/23/18 09:00 06/22/18 08:59 05/26/18 09:02 Lorazepam (Ativan 2mg/ml 1ml) 0.5 mg Q4H PRN IV For Anxiety 05/22/18 18:00 05/29/18 17:59 05/26/18 04:49 Methylprednisolone Sodium Succinate (Solu-MEDROL) 40 mg DAILY IVP 05/27/18 09:00 06/21/18 11:59 Montelukast Sodium (Singulair) 10 mg DAILY ORAL 05/23/18 09:00 06/21/18 08:59 05/26/18 09:01 Morphine Sulfate (Morphine Sulfate) 2 mg Q4H PRN IVP severe pain 7-10 05/22/18 18:00 05/29/18 17:59 Nitroglycerin (Ntg) 0.4 mg Q5M X 3 DOSES PRN SL Prn Chest Pain 05/22/18 17:30 06/21/18 07:29 Ondansetron HCl (Zofran) 4 mg Q6H PRN IVP Nausea & Vomiting 05/22/18 18:00 06/21/18 17:59 Pantoprazole (Protonix) 40 mg DAILY ORAL 05/23/18 09:00 06/21/18 08:59 05/26/18 09:01 Phenytoin (Dilantin) 100 mg BEDTIME ORAL 05/22/18 21:00 06/21/18 20:59 05/26/18 20:14 Polyethylene Glycol (Miralax) 17 gm DAILY PRN ORAL Constipation 05/24/18 07:00 06/23/18 06:59 05/24/18 07:51 Pregabalin (Lyrica) 50 mg Q12HR ORAL 05/22/18 21:00 06/21/18 08:59 05/26/18 20:14 Promethazine HCl/ Codeine (Phenergan with Codeine) 5 ml Q6H PRN ORAL cough 05/22/18 18:00 06/21/18 17:59 05/25/18 13:56 Promethazine HCl/ Codeine (Phenergan with Codeine) 10 ml BEDTIME ORAL 05/25/18 21:00 06/24/18 20:59 05/26/18 20:15 Sennosides (Senokot) 1 tab DAILY ORAL 05/24/18 13:00 06/23/18 12:59 05/26/18 09:02 Temazepam (Restoril) 15 mg HSPRN PRN ORAL Insomnia 05/22/18 21:00 05/29/18 20:59 Theophylline (Fabrice-Dur) 100 mg EVERY 12 HOURS ORAL 05/22/18 21:00 06/21/18 08:59 05/26/18 20:14 Jessica Landry [id number] ADMINISTRATOR May 27, 2018 08:15
[2018-05-27] MEDS: Montelukast 10mg tablet ORAL SCH (08:59)
[2018-05-27] MEDS: Imdur 30mg tab ORAL SCH (09:00)
[2018-05-27] MEDS ORDERED: Solu-MEDROL 40mg Inj IVP SCH (09:00)
[2018-05-27] MEDS: Sennosides 8.6mg ORAL SCH (09:00)
[2018-05-27] MEDS: Lyrica 50mg cap ORAL SCH ×2 (09:01→20:54)
[2018-05-27] MEDS: Theophylline ER 100mg ORAL SCH ×2 (09:04→20:55)
--- NOTE | 2018-05-27 09:28 | Diagnostic Imaging Report ---
INDICATION: Shortness of breath COMPARISON: Chest x-ray dated 05/12/18 FINDINGS: Single frontal view demonstrates prominent heart size. Atherosclerotic vascular disease. The lungs are clear. No pleural effusions. The visualized osseous structures are within normal limits. IMPRESSION: Prominent heart size. Atherosclerotic vascular disease.
[2018-05-27] MEDS: Budesonide HHN 0.25mg/2ml ud HHN SCH ×2 (09:50→22:52)
[2018-05-27] MEDS: cefTRIAXone 1 GM in D5W 55 ML IVPB SCH (11:27)
[2018-05-27 12:00] VITALS: BP 149/80
--- NOTE | 2018-05-27 14:08 | Internal Med Progress Note ---
Subjective Physician Name Shlomo Garcia Attending Physician Shlomo Garcia MD Current Medications Medications (Trade) Dose Ordered Sig/[place] Route PRN Reason Start Time Stop Time Status Last Admin Dose Admin Acetaminophen (Tylenol) 650 mg Q6H PRN ORAL Mild Pain/Temp > 100.5 05/22/18 18:00 06/21/18 17:59 Acetaminophen/ Hydrocodone Bitart ([place] 5/325) 1 tab Q6H PRN ORAL Breakthrough Pain 05/22/18 18:00 05/29/18 17:59 Albuterol/ Ipratropium (Albuterol/ Ipratropium) 3 ml Q8HRT HHN 05/22/18 23:00 05/27/18 14:59 05/27/18 07:56 Amlodipine Besylate (Norvasc) 2.5 mg DAILY ORAL 05/23/18 09:00 06/21/18 08:59 05/27/18 09:00 Atorvastatin Calcium (Lipitor) 40 mg QHS ORAL 05/22/18 21:00 06/21/18 20:59 05/26/18 20:15 Budesonide (Pulmicort) 0.25 mg Q12HRT HHN 05/26/18 22:00 06/25/18 21:59 05/27/18 09:50 Ceftriaxone Sodium 1 gm/ Dextrose 55 ml @ 110 mls/hr Q24H IVPB 05/26/18 12:00 06/02/18 11:59 05/27/18 11:27 Clonidine HCl (Catapres Tab) 0.1 mg Q4H PRN ORAL For High Blood Pressure 05/22/18 18:00 06/21/18 17:59 05/26/18 04:49 Clopidogrel Bisulfate (Plavix) 75 mg DAILY ORAL 05/23/18 09:00 06/21/18 08:59 05/27/18 09:00 Dextrose (Dextrose 50%) 25 ml STAT PRN IV Hypoglycemia 05/22/18 18:00 06/21/18 17:59 Dextrose (Dextrose 50%) 50 ml STAT PRN IV Hypoglycemia 05/22/18 18:00 06/21/18 17:59 Doxycycline Monohydrate (Vibramycin) 100 mg EVERY 12 HOURS ORAL 05/26/18 21:00 06/02/18 20:59 05/27/18 09:00 Hydroxyzine HCl (Atarax) 25 mg Q6H PRN ORAL Itching 05/22/18 18:00 06/21/18 17:59 05/26/18 11:04 Isosorbide Mononitrate (Imdur) 30 mg DAILY ORAL 05/23/18 09:00 06/22/18 08:59 05/27/18 09:00 Lorazepam (Ativan 2mg/ml 1ml) 0.5 mg Q4H PRN IV For Anxiety 05/22/18 18:00 05/29/18 17:59 05/26/18 04:49 Methylprednisolone (Medrol) 4 mg ACBREAKFAST ORAL 05/28/18 06:30 06/27/18 06:29 Montelukast Sodium (Singulair) 10 mg DAILY ORAL 05/23/18 09:00 06/21/18 08:59 05/27/18 08:59 Morphine Sulfate (Morphine Sulfate) 2 mg Q4H PRN IVP severe pain 7-10 05/22/18 18:00 05/29/18 17:59 Nitroglycerin (Ntg) 0.4 mg Q5M X 3 DOSES PRN SL Prn Chest Pain 05/22/18 17:30 06/21/18 07:29 Ondansetron HCl (Zofran) 4 mg Q6H PRN IVP Nausea & Vomiting 05/22/18 18:00 06/21/18 17:59 Pantoprazole (Protonix) 40 mg DAILY ORAL 05/23/18 09:00 06/21/18 08:59 05/27/18 09:00 Phenytoin (Dilantin) 100 mg BEDTIME ORAL 05/22/18 21:00 06/21/18 20:59 05/26/18 20:14 Polyethylene Glycol (Miralax) 17 gm DAILY PRN ORAL Constipation 05/24/18 07:00 06/23/18 06:59 05/24/18 07:51 Pregabalin (Lyrica) 50 mg Q12HR ORAL 05/22/18 21:00 06/21/18 08:59 05/27/18 09:01 Promethazine HCl/ Codeine (Phenergan with Codeine) 5 ml Q6H PRN ORAL cough 05/22/18 18:00 06/21/18 17:59 05/25/18 13:56 Promethazine HCl/ Codeine (Phenergan with Codeine) 10 ml BEDTIME ORAL 05/25/18 21:00 06/24/18 20:59 05/26/18 20:15 Sennosides (Senokot) 1 tab DAILY ORAL 05/24/18 13:00 06/23/18 12:59 05/27/18 09:00 Temazepam (Restoril) 15 mg HSPRN PRN ORAL Insomnia 05/22/18 21:00 05/29/18 20:59 Theophylline (Fabrice-Dur) 100 mg EVERY 12 HOURS ORAL 05/22/18 21:00 06/21/18 08:59 05/27/18 09:04 Allergies: Coded Allergies: VANCOMYCIN (Verified Allergy, Unknown, red eyes, itchying, 10/10/16) Uncoded Allergies: Canned Food (Allergy, Unknown, 03/22/18) Nausea/Vomitting/Indigestion Subjective awake, alert, responsive, sitting up on chair, + coughing Objective Last Vital Signs Date Time Temp Pulse Resp B/P (MAP) Pulse Ox O2 Delivery O2 Flow Rate FiO2 05/27/18 09:58 89 20 98 Nasal Cannula 2.0 28 05/27/18 09:00 164/81 05/27/18 08:00 98.4 98.4 Intake and Output 05/26/18 05/27/18 19:00 07:00 Intake Total 840 ml 200 ml Balance 840 ml 200 ml Intake Oral 840 ml 200 ml # Voids 6 2 # Bowel Movements 1 1 Objective General: No acute distress, awake and alert HEENT: NCAT, sclera anicteric, PERRL, EOMI. Neck: Supple, no significant jugular venous distention, Lungs: Good inspiratory effort, Decrease breath sound at bases, no Wheeze or Rales. Heart: Regular rate and rhythm, normal S1/S2, no murmurs Abdomen: soft, nontender, nondistended. Normoactive bowel sounds. / Rectal: Refused and deferred. Extremities: No Cyanosis , clubbing or edema. Neuro: A&O x 3, Able to move all extremities Skin: warm, no rashes or lesions Psych: Normal mood and affect Assessment/Plan Assessment/Plan (1) Hypercholesterolemia (2) Shortness of breath (3) Bronchitis (4) Cerebral vascular disease (5) Hemorrhagic stroke (6) HTN (hypertension) (7) Acute asthma exacerbation (8) GERD (gastroesophageal reflux disease) (9) Seizure disorder (10) CAD (coronary artery disease) Plan: switch Solumedral IV to prednisone Abx: Rocephin and Doxycycline DC home in AM with HH. refuse blood work Shlomo Garcia MD May 27, 2018 14:08
[2018-05-27 16:00] VITALS: BP 135/65
[2018-05-27] MEDS: Albuterol/Ipratropium 3ml neb HHN PRN (17:55)
[2018-05-27 20:00] VITALS: BP 123/61
[2018-05-27] MEDS: Promethazine/Codeine 5ml UD ORAL SCH (20:54)
[2018-05-27] MEDS: Phenytoin 100mg cap ORAL SCH (20:54)
[2018-05-27] MEDS: Atorvastatin 20mg tab ORAL SCH (20:55)
--- NOTE | 2018-05-27 21:26 | General Progress Note ---
Assessment/Plan Problem List: (1) Anxiety ICD Codes: F41.9 - Anxiety disorder, unspecified SNOMED: 43096610 (2) MDD (major depressive disorder), recurrent episode, moderate ICD Codes: F33.1 - Major depressive disorder, recurrent, moderate SNOMED: 62768778, 982822233 (3) Vascular dementia ICD Codes: F01.50 - Vascular dementia without behavioral disturbance SNOMED: 196723041 Assessment/Plan Prozac 20mg qam the pt has capacity to make decisions provided ro/st Subjective Date patient seen: May 27, 2018 Neurologic/Psychiatric: Reports: anxiety, depressed, emotional problems Allergies: Coded Allergies: VANCOMYCIN (Verified Allergy, Unknown, red eyes, itchying, 10/10/16) Uncoded Allergies: Canned Food (Allergy, Unknown, 03/22/18) Nausea/Vomitting/Indigestion Objective Last 24 Hour Vital Signs Date Time Temp Pulse Resp B/P (MAP) Pulse Ox O2 Delivery O2 Flow Rate FiO2 05/27/18 19:23 85 20 Room Air 21 05/27/18 19:22 95 Room Air 21 05/27/18 19:22 Room Air 21 05/27/18 18:01 92 20 97 Room Air 05/27/18 17:54 86 20 97 Nasal Cannula 2.0 05/27/18 16:00 98.1 88 18 135/65 (88) 98 98.1 05/27/18 15:03 Nasal Cannula 2.0 05/27/18 15:02 Nasal Cannula 2.0 05/27/18 12:00 98.4 89 18 149/80 (103) 95 98.4 05/27/18 09:58 89 20 98 Nasal Cannula 2.0 28 05/27/18 09:51 88 20 98 Nasal Cannula 2.0 28 05/27/18 09:00 164/81 05/27/18 09:00 79 164/81 05/27/18 09:00 Nasal Cannula 2.0 05/27/18 08:08 79 20 99 Nasal Cannula 2.0 28 05/27/18 08:00 91 20 98 Nasal Cannula 2.0 28 05/27/18 08:00 98.4 89 18 164/81 (108) 96 98.4 05/27/18 07:58 Nasal Cannula 2.0 28 05/27/18 07:57 98 Nasal Cannula 2.0 28 05/27/18 04:00 97.5 85 18 155/91 (112) 97 97.5 05/27/18 00:00 98.0 81 19 124/64 (84) 97 98.0 05/26/18 23:37 86 20 99 Nasal Cannula 2.0 28 05/26/18 23:30 84 18 97 Nasal Cannula 2.0 28 05/26/18 23:16 78 18 99 Nasal Cannula 2.0 28 05/26/18 23:12 28 05/26/18 23:08 74 18 96 Nasal Cannula 2.0 28 Intake and Output 05/26/18 05/27/18 19:00 07:00 Intake Total 840 ml 200 ml Balance 840 ml 200 ml Intake Oral 840 ml 200 ml # Voids 6 2 # Bowel Movements 1 1 Height (Feet): 4 Height (Inches): 10.00 Weight (Pounds): 120 General Appearance: no apparent distress, alert Neurologic: oriented x 3, responsive, depressed affect Sherin Holm MD May 27, 2018 21:26
[2018-05-28] VITALS: BP 134/71
[2018-05-28 05:20] VITALS: BP 174/99
[2018-05-28] MEDS: Albuterol/Ipratropium 3ml neb HHN PRN (05:42)
[2018-05-28 06:26] VITALS: BP 129/67
[2018-05-28] MEDS: Albuterol/Ipratropium 3ml neb HHN SCH (07:08)
[2018-05-28 08:00] VITALS: BP 146/77
--- NOTE | 2018-05-28 08:28 | Infectious Diseases Prog Note ---
Assessment/Plan Assessment/Plan 83 yo female with PMHx of Asthma and CVA who presented from home on 05/22/18 with SOB. Bacteremia Likely contaminant 05/22/18 Blood Cx GPC sets Respiratory distress Resolved Likely Asthma exacerbation +/- Bronchitis or viral URI vs less likely CXR Possible small bilateral pleural effusions. No acute process otherwise Asthma. Hx of CVA Hypertension. Hypercholesterolemia. GERD Seizure disorder. CAD SP stent in November of 2017. Plan: - Doxycycline #2/5 and Ceftriaxone #2/5 Could D/C on short course of Levofloxacin to cover any bacterial infection - (End date 05/30/18) - 05/26 Zosyn #4 - Breathing Treatments - Supportive care We will continue to follow the patient during this hospitalization. Subjective Allergies: Coded Allergies: VANCOMYCIN (Verified Allergy, Unknown, red eyes, itchying, 10/10/16) Uncoded Allergies: Canned Food (Allergy, Unknown, 03/22/18) Nausea/Vomitting/Indigestion Subjective Patient on RA No new complaints Objective Vital Signs Last 24 Hour Vital Signs Date Time Temp Pulse Resp B/P (MAP) Pulse Ox O2 Delivery O2 Flow Rate FiO2 05/28/18 08:09 Room Air 05/28/18 08:00 97.4 91 19 146/77 (100) 97.4 05/28/18 07:16 87 18 98 Room Air 21 05/28/18 07:14 Room Air 21 05/28/18 07:14 94 Room Air 21 05/28/18 07:08 89 20 94 Room Air 21 05/28/18 06:26 88 18 129/67 (87) 97 05/28/18 05:43 94 22 99 Nasal Cannula 3.0 36 05/28/18 05:40 174/99 05/28/18 05:35 92 20 97 Nasal Cannula 2.0 28 05/28/18 05:20 98.0 90 21 174/99 (124) 96 98.0 05/28/18 00:00 97.2 87 18 134/71 (92) 100 97.2 05/27/18 22:57 88 20 99 Nasal Cannula 2.0 28 05/27/18 22:56 86 20 99 Nasal Cannula 2.0 28 05/27/18 22:43 86 20 98 Nasal Cannula 2.0 28 05/27/18 22:42 76 20 97 Nasal Cannula 2.0 28 05/27/18 21:00 Nasal Cannula 2.0 05/27/18 20:00 98.1 90 18 123/61 (81) 99 98.1 05/27/18 19:23 85 20 Room Air 21 05/27/18 19:22 95 Room Air 21 05/27/18 19:22 Room Air 21 05/27/18 18:01 92 20 97 Room Air 21 05/27/18 17:54 86 20 97 Nasal Cannula 2.0 28 05/27/18 16:00 98.1 88 18 135/65 (88) 98 98.1 05/27/18 15:03 Nasal Cannula 2.0 28 05/27/18 15:02 Nasal Cannula 2.0 28 05/27/18 12:00 98.4 89 18 149/80 (103) 95 98.4 05/27/18 09:58 89 20 98 Nasal Cannula 2.0 28 05/27/18 09:51 88 20 98 Nasal Cannula 2.0 28 05/27/18 09:00 164/81 05/27/18 09:00 79 164/81 05/27/18 09:00 Nasal Cannula 2.0 Height (Feet): 4 Height (Inches): 10.00 Weight (Pounds): 120 Objective Gen: NAD, well appearing HEENT: NCAT, MMM, EOMI, LUNGS: Tight lung with poor air flow. Mild wheezing B/L CARDS: RRR, S1, S2, No M/R/G ABD: Soft, NT, ND, No R/G, + BS, No HSM, No Masses Ext: C/C/E, Pulses 2+ B/L (DP, Rad): NEURO: A/O x 4, Strength and Sensation Grossly intact PSYCH: mood/affect normal Current Medications Medications (Trade) Dose Ordered Sig/[place] Route PRN Reason Start Time Stop Time Status Last Admin Dose Admin Acetaminophen (Tylenol) 650 mg Q6H PRN ORAL Mild Pain/Temp > 100.5 05/22/18 18:00 06/21/18 17:59 Acetaminophen/ Hydrocodone Bitart ([place] 5/325) 1 tab Q6H PRN ORAL Breakthrough Pain 05/22/18 18:00 05/29/18 17:59 Albuterol/ Ipratropium (Albuterol/ Ipratropium) 3 ml Q4H PRN HHN Shortness of Breath 05/27/18 17:45 06/01/18 17:44 05/28/18 05:42 Albuterol/ Ipratropium (Albuterol/ Ipratropium) 3 ml Q8HRT HHN 05/27/18 23:00 06/01/18 22:59 05/28/18 07:08 Amlodipine Besylate (Norvasc) 2.5 mg DAILY ORAL 05/23/18 09:00 06/21/18 08:59 05/27/18 09:00 Atorvastatin Calcium (Lipitor) 40 mg QHS ORAL 05/22/18 21:00 06/21/18 20:59 05/27/18 20:55 Budesonide (Pulmicort) 0.25 mg Q12HRT HHN 05/26/18 22:00 06/25/18 21:59 05/27/18 22:52 Ceftriaxone Sodium 1 gm/ Dextrose 55 ml @ 110 mls/hr Q24H IVPB 05/26/18 12:00 06/02/18 11:59 05/27/18 11:27 Clonidine HCl (Catapres Tab) 0.1 mg Q4H PRN ORAL For High Blood Pressure 05/22/18 18:00 06/21/18 17:59 05/28/18 05:40 Clopidogrel Bisulfate (Plavix) 75 mg DAILY ORAL 05/23/18 09:00 06/21/18 08:59 05/27/18 09:00 Dextrose (Dextrose 50%) 25 ml STAT PRN IV Hypoglycemia 05/22/18 18:00 06/21/18 17:59 Dextrose (Dextrose 50%) 50 ml STAT PRN IV Hypoglycemia 05/22/18 18:00 06/21/18 17:59 Doxycycline Monohydrate (Vibramycin) 100 mg EVERY 12 HOURS ORAL 05/26/18 21:00 06/02/18 20:59 05/27/18 20:54 Hydroxyzine HCl (Atarax) 25 mg Q6H PRN ORAL Itching 05/22/18 18:00 06/21/18 17:59 05/26/18 11:04 Isosorbide Mononitrate (Imdur) 30 mg DAILY ORAL 05/23/18 09:00 06/22/18 08:59 05/27/18 09:00 Lorazepam (Ativan 2mg/ml 1ml) 0.5 mg Q4H PRN IV For Anxiety 05/22/18 18:00 05/29/18 17:59 05/26/18 04:49 Montelukast Sodium (Singulair) 10 mg DAILY ORAL 05/23/18 09:00 06/21/18 08:59 05/27/18 08:59 Morphine Sulfate (Morphine Sulfate) 2 mg Q4H PRN IVP severe pain 7-10 05/22/18 18:00 05/29/18 17:59 Nitroglycerin (Ntg) 0.4 mg Q5M X 3 DOSES PRN SL Prn Chest Pain 05/22/18 17:30 06/21/18 07:29 Ondansetron HCl (Zofran) 4 mg Q6H PRN IVP Nausea & Vomiting 05/22/18 18:00 06/21/18 17:59 Pantoprazole (Protonix) 40 mg DAILY ORAL 05/23/18 09:00 06/21/18 08:59 05/27/18 09:00 Phenytoin (Dilantin) 100 mg BEDTIME ORAL 05/22/18 21:00 06/21/18 20:59 05/27/18 20:54 Polyethylene Glycol (Miralax) 17 gm DAILY PRN ORAL Constipation 05/24/18 07:00 06/23/18 06:59 05/24/18 07:51 Prednisone (predniSONE) 40 mg DAILY ORAL 05/28/18 09:00 06/27/18 08:59 Pregabalin (Lyrica) 50 mg Q12HR ORAL 05/22/18 21:00 06/21/18 08:59 05/27/18 20:54 Promethazine HCl/ Codeine (Phenergan with Codeine) 5 ml Q6H PRN ORAL cough 05/22/18 18:00 06/21/18 17:59 05/25/18 13:56 Promethazine HCl/ Codeine (Phenergan with Codeine) 10 ml BEDTIME ORAL 05/25/18 21:00 06/24/18 20:59 05/27/18 20:54 Sennosides (Senokot) 1 tab DAILY ORAL 05/24/18 13:00 06/23/18 12:59 05/27/18 09:00 Temazepam (Restoril) 15 mg HSPRN PRN ORAL Insomnia 05/22/18 21:00 05/29/18 20:59 Theophylline (Fabrice-Dur) 100 mg EVERY 12 HOURS ORAL 05/22/18 21:00 06/21/18 08:59 05/27/18 20:55 David Temple MD May 28, 2018 08:27
[2018-05-28] MEDS: Sennosides 8.6mg ORAL SCH (08:33)
[2018-05-28] MEDS: Lyrica 50mg cap ORAL SCH (08:33)
[2018-05-28] MEDS: Montelukast 10mg tablet ORAL SCH (08:33)
[2018-05-28] MEDS: Theophylline ER 100mg ORAL SCH (08:34)
[2018-05-28 08:35] VITALS: BP 146/76
[2018-05-28] MEDS: Imdur 30mg tab ORAL SCH (08:35)
[2018-05-28] MEDS: Budesonide HHN 0.25mg/2ml ud HHN SCH (09:35)
[2018-05-28] MEDS ORDERED: LEVOFLOXACIN250 MG ORAL ×2 (10:43→10:44)
--- NOTE | 2018-05-28 11:47 | Pulmonology Progress Note ---
Assessment/Plan Problems: (1) Bacteremia (2) Acute respiratory failure (3) Acute asthma exacerbation (4) CAD (coronary artery disease) (5) Cerebral vascular disease Assessment/Plan wants to go home improving slowly taper steroids slowly, further to 40 today IV check sputum cultures, michele and normal carol on Theophylline dvt prophylaxis dc planning Subjective ROS Limited/Unobtainable: No Constitutional: Reports: no symptoms HEENT: Repors: no symptoms Respiratory: Reports: no symptoms Allergies: Coded Allergies: VANCOMYCIN (Verified Allergy, Unknown, red eyes, itchying, 10/10/16) Uncoded Allergies: Canned Food (Allergy, Unknown, 03/22/18) Nausea/Vomitting/Indigestion Objective Last 24 Hour Vital Signs Date Time Temp Pulse Resp B/P (MAP) Pulse Ox O2 Delivery O2 Flow Rate FiO2 05/28/18 09:49 84 20 100 Nasal Cannula 2.0 05/28/18 09:35 86 20 95 Nasal Cannula 2.0 05/28/18 08:35 146/76 05/28/18 08:34 91 146/77 05/28/18 08:09 Room Air 05/28/18 08:00 97.4 91 19 146/77 (100) 97.4 05/28/18 07:16 87 18 98 Room Air 21 05/28/18 07:14 Room Air 21 05/28/18 07:14 94 Room Air 21 05/28/18 07:08 89 20 94 Room Air 21 05/28/18 06:26 88 18 129/67 (87) 97 05/28/18 05:43 94 22 99 Nasal Cannula 3.0 36 05/28/18 05:40 174/99 05/28/18 05:35 92 20 97 Nasal Cannula 2.0 28 05/28/18 05:20 98.0 90 21 174/99 (124) 96 98.0 05/28/18 00:00 97.2 87 18 134/71 (92) 100 97.2 05/27/18 22:57 88 20 99 Nasal Cannula 2.0 28 05/27/18 22:56 86 20 99 Nasal Cannula 2.0 28 05/27/18 22:43 86 20 98 Nasal Cannula 2.0 28 05/27/18 22:42 76 20 97 Nasal Cannula 2.0 28 05/27/18 21:00 Nasal Cannula 2.0 05/27/18 20:00 98.1 90 18 123/61 (81) 99 98.1 05/27/18 19:23 85 20 Room Air 21 05/27/18 19:22 95 Room Air 21 05/27/18 19:22 Room Air 21 05/27/18 18:01 92 20 97 Room Air 21 05/27/18 17:54 86 20 97 Nasal Cannula 2.0 28 05/27/18 16:00 98.1 88 18 135/65 (88) 98 98.1 05/27/18 15:03 Nasal Cannula 2.0 28 05/27/18 15:02 Nasal Cannula 2.0 28 05/27/18 12:00 98.4 89 18 149/80 (103) 95 98.4 Intake and Output 05/27/18 05/28/18 19:00 07:00 Intake Total 400 ml 300 ml Balance 400 ml 300 ml Intake Oral 400 ml 300 ml # Voids 2 2 General Appearance: WD/WN HEENT: normocephalic Respiratory/Chest: chest wall non-tender, lungs clear Cardiovascular: normal peripheral pulses, normal rate Abdomen: normal bowel sounds, soft, non tender Genitourinary: normal external genitalia 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 Current Medications Medications (Trade) Dose Ordered Sig/[place] Route PRN Reason Start Time Stop Time Status Last Admin Dose Admin Acetaminophen (Tylenol) 650 mg Q6H PRN ORAL Mild Pain/Temp > 100.5 05/22/18 18:00 06/21/18 17:59 Acetaminophen/ Hydrocodone Bitart ([place] 5/325) 1 tab Q6H PRN ORAL Breakthrough Pain 05/22/18 18:00 05/29/18 17:59 Albuterol/ Ipratropium (Albuterol/ Ipratropium) 3 ml Q4H PRN HHN Shortness of Breath 05/27/18 17:45 06/01/18 17:44 05/28/18 05:42 Albuterol/ Ipratropium (Albuterol/ Ipratropium) 3 ml Q8HRT HHN 05/27/18 23:00 06/01/18 22:59 05/28/18 07:08 Amlodipine Besylate (Norvasc) 2.5 mg DAILY ORAL 05/23/18 09:00 06/21/18 08:59 05/28/18 08:34 Atorvastatin Calcium (Lipitor) 40 mg QHS ORAL 05/22/18 21:00 06/21/18 20:59 05/27/18 20:55 Budesonide (Pulmicort) 0.25 mg Q12HRT HHN 05/26/18 22:00 06/25/18 21:59 05/28/18 09:35 Ceftriaxone Sodium 1 gm/ Dextrose 55 ml @ 110 mls/hr Q24H IVPB 05/26/18 12:00 06/02/18 11:59 05/27/18 11:27 Clonidine HCl (Catapres Tab) 0.1 mg Q4H PRN ORAL For High Blood Pressure 05/22/18 18:00 06/21/18 17:59 05/28/18 05:40 Clopidogrel Bisulfate (Plavix) 75 mg DAILY ORAL 05/23/18 09:00 06/21/18 08:59 05/28/18 08:35 Dextrose (Dextrose 50%) 25 ml STAT PRN IV Hypoglycemia 05/22/18 18:00 06/21/18 17:59 Dextrose (Dextrose 50%) 50 ml STAT PRN IV Hypoglycemia 05/22/18 18:00 06/21/18 17:59 Doxycycline Monohydrate (Vibramycin) 100 mg EVERY 12 HOURS ORAL 05/26/18 21:00 06/02/18 20:59 05/28/18 08:33 Hydroxyzine HCl (Atarax) 25 mg Q6H PRN ORAL Itching 05/22/18 18:00 06/21/18 17:59 05/26/18 11:04 Isosorbide Mononitrate (Imdur) 30 mg DAILY ORAL 05/23/18 09:00 06/22/18 08:59 05/28/18 08:35 Lorazepam (Ativan 2mg/ml 1ml) 0.5 mg Q4H PRN IV For Anxiety 05/22/18 18:00 05/29/18 17:59 05/26/18 04:49 Montelukast Sodium (Singulair) 10 mg DAILY ORAL 05/23/18 09:00 06/21/18 08:59 05/28/18 08:33 Morphine Sulfate (Morphine Sulfate) 2 mg Q4H PRN IVP severe pain 7-10 05/22/18 18:00 05/29/18 17:59 Nitroglycerin (Ntg) 0.4 mg Q5M X 3 DOSES PRN SL Prn Chest Pain 05/22/18 17:30 06/21/18 07:29 Ondansetron HCl (Zofran) 4 mg Q6H PRN IVP Nausea & Vomiting 05/22/18 18:00 06/21/18 17:59 Pantoprazole (Protonix) 40 mg DAILY ORAL 05/23/18 09:00 06/21/18 08:59 05/28/18 08:33 Phenytoin (Dilantin) 100 mg BEDTIME ORAL 05/22/18 21:00 06/21/18 20:59 05/27/18 20:54 Polyethylene Glycol (Miralax) 17 gm DAILY PRN ORAL Constipation 05/24/18 07:00 06/23/18 06:59 05/24/18 07:51 Prednisone (predniSONE) 40 mg DAILY ORAL 05/28/18 09:00 06/27/18 08:59 05/28/18 08:35 Pregabalin (Lyrica) 50 mg Q12HR ORAL 05/22/18 21:00 06/21/18 08:59 05/28/18 08:33 Promethazine HCl/ Codeine (Phenergan with Codeine) 5 ml Q6H PRN ORAL cough 05/22/18 18:00 06/21/18 17:59 05/25/18 13:56 Promethazine HCl/ Codeine (Phenergan with Codeine) 10 ml BEDTIME ORAL 05/25/18 21:00 06/24/18 20:59 05/27/18 20:54 Sennosides (Senokot) 1 tab DAILY ORAL 05/24/18 13:00 06/23/18 12:59 05/28/18 08:33 Temazepam (Restoril) 15 mg HSPRN PRN ORAL Insomnia 05/22/18 21:00 05/29/18 20:59 Theophylline (Fabrice-Dur) 100 mg EVERY 12 HOURS ORAL 05/22/18 21:00 06/21/18 08:59 05/28/18 08:34 Luis A Juares MD May 28, 2018 11:47
[2018-05-28] MEDS: cefTRIAXone 1 GM in D5W 55 ML IVPB SCH (12:00)
--- NOTE | 2018-05-28 12:00 | General Progress Note ---
Assessment/Plan Problem List: (1) Anxiety ICD Codes: F41.9 - Anxiety disorder, unspecified SNOMED: 95108521 (2) MDD (major depressive disorder), recurrent episode, moderate ICD Codes: F33.1 - Major depressive disorder, recurrent, moderate SNOMED: 49099334, 001127257 (3) Vascular dementia ICD Codes: F01.50 - Vascular dementia without behavioral disturbance SNOMED: 142973016 Status: stable Assessment/Plan Prozac 20mg qam the pt has capacity to make decisions provided ro/st Subjective Date patient seen: May 28, 2018 Neurologic/Psychiatric: Reports: anxiety, depressed, emotional problems Allergies: Coded Allergies: VANCOMYCIN (Verified Allergy, Unknown, red eyes, itchying, 10/10/16) Uncoded Allergies: Canned Food (Allergy, Unknown, 03/22/18) Nausea/Vomitting/Indigestion Subjective the pt cont to have anxiety and worried about her medical condition Objective Last 24 Hour Vital Signs Date Time Temp Pulse Resp B/P (MAP) Pulse Ox O2 Delivery O2 Flow Rate FiO2 05/28/18 09:49 84 20 100 Nasal Cannula 2.0 28 05/28/18 09:35 86 20 95 Nasal Cannula 2.0 05/28/18 08:35 146/76 05/28/18 08:34 91 146/77 05/28/18 08:09 Room Air 05/28/18 08:00 97.4 91 19 146/77 (100) 97.4 05/28/18 07:16 87 18 98 Room Air 21 05/28/18 07:14 Room Air 21 05/28/18 07:14 94 Room Air 05/28/18 07:08 89 20 94 Room Air 21 05/28/18 06:26 88 18 129/67 (87) 97 05/28/18 05:43 94 22 99 Nasal Cannula 3.0 36 05/28/18 05:40 174/99 05/28/18 05:35 92 20 97 Nasal Cannula 2.0 28 05/28/18 05:20 98.0 90 21 174/99 (124) 96 98.0 05/28/18 00:00 97.2 87 18 134/71 (92) 100 97.2 05/27/18 22:57 88 20 99 Nasal Cannula 2.0 28 05/27/18 22:56 86 20 99 Nasal Cannula 2.0 28 9/23/18 22:43 86 20 98 Nasal Cannula 2.0 05/27/18 22:42 76 20 97 Nasal Cannula 2.0 05/27/18 21:00 Nasal Cannula 2.0 05/27/18 20:00 98.1 90 18 123/61 (81) 99 98.1 05/27/18 19:23 85 20 Room Air 05/27/18 19:22 95 Room Air 05/27/18 19:22 Room Air 05/27/18 18:01 92 20 97 Room Air 05/27/18 17:54 86 20 97 Nasal Cannula 2.0 05/27/18 16:00 98.1 88 18 135/65 (88) 98 98.1 05/27/18 15:03 Nasal Cannula 2.0 05/27/18 15:02 Nasal Cannula 2.0 05/27/18 12:00 98.4 89 18 149/80 (103) 95 98.4 Intake and Output 05/27/18 05/28/18 19:00 07:00 Intake Total 400 ml 300 ml Balance 400 ml 300 ml Intake Oral 400 ml 300 ml # Voids 2 2 Height (Feet): 4 Height (Inches): 10.00 Weight (Pounds): 120 General Appearance: no apparent distress, alert Neurologic: oriented x 3, responsive, depressed affect Sherin Homl MD May 28, 2018 12:00
[2018-05-28] MEDS ORDERED: LEVOFLOXACIN500 MG ORAL ×2 (12:50→12:52)
--- NOTE | 2018-05-28 16:59 | Internal Med Progress Note ---
Subjective Physician Name Shlomo Garcia Attending Physician Shlomo Garcia MD Allergies: Coded Allergies: VANCOMYCIN (Verified Allergy, Unknown, red eyes, itchying, 10/10/16) Uncoded Allergies: Canned Food (Allergy, Unknown, 03/22/18) Nausea/Vomitting/Indigestion Subjective awake, alert, responsive, sitting up on chair, less coughing Objective Last Vital Signs Date Time Temp Pulse Resp B/P (MAP) Pulse Ox O2 Delivery O2 Flow Rate FiO2 05/28/18 09:49 84 20 100 Nasal Cannula 2.0 28 05/28/18 08:35 146/76 05/28/18 08:00 97.4 97.4 Intake and Output 05/27/18 05/28/18 19:00 07:00 Intake Total 400 ml 300 ml Balance 400 ml 300 ml Intake Oral 400 ml 300 ml # Voids 2 2 Objective General: No acute distress, awake and alert HEENT: NCAT, sclera anicteric, PERRL, EOMI. Neck: Supple, no significant jugular venous distention, Lungs: Good inspiratory effort, Decrease breath sound at bases, no Wheeze or Rales. Heart: Regular rate and rhythm, normal S1/S2, no murmurs Abdomen: soft, nontender, nondistended. Normoactive bowel sounds. / Rectal: Refused and deferred. Extremities: No Cyanosis , clubbing or edema. Neuro: A&O x 3, Able to move all extremities Skin: warm, no rashes or lesions Psych: Normal mood and affect Assessment/Plan Assessment/Plan (1) Hypercholesterolemia (2) Shortness of breath (3) Bronchitis (4) Cerebral vascular disease (5) Hemorrhagic stroke (6) HTN (hypertension) (7) Acute asthma exacerbation (8) GERD (gastroesophageal reflux disease) (9) Seizure disorder (10) CAD (coronary artery disease) Plan: On prednisone Abx: Rocephin and Doxycycline DC home today with HH. Shlomo Garcia MD May 28, 2018 16:59
--- NOTE | 2018-05-30 10:01 | Discharge Summary ---
Discharge Summary Discharge Summary _ DATE OF ADMISSION: 05/22/2018 DATE OF DISCHARGE: 05/28/2018 REASON FOR ADMISSION: 83 years old female with past medical history of hypertension, asthma, cerebrovascular disease with history of hemorrhagic stroke, hypertension, seizure disorder, hypercholesterolemia, coronary artery disease, status post stent placement in November 2017, GERD, presented to emergency department for evaluation due to shortness of breath. Per felt washing machine tender patient was wheezing. Nebulizing treatment with bronchodilator was started en route. Patient reported feeling slightly better , however she continued to be short of breath. Patient also reported using inhaler at home without significant relief. She reports occasional dry cough, but no chest pain, no fever, no chills. Upon evaluation patient required supplemental oxygen. Blood pressure was elevated 188/86. No fever . Laboratory workup revealed no leukocytosis ,stable hemoglobin and hematocrit. Troponin negative. EKG revealed normal sinus rhythm, no acute ischemic changes. Lactic acid 0.5. Stable electrolytes , renal parameters and LFT. Chest x-ray revealed hyperinflated lungs , no acute process, possible small bilateral pleural effusion. Patient admitted with diagnoses of acute respiratory failure, acute asthma exacerbation, coronary artery disease, hypertension, cerebrovascular disease, seizure disorder, GERD, hypercholesterolemia. CONSULTANTS: pulmonary Dr. Juares ID specialist Dr. Prado psychiatrist [facility] COURSE: Patient initially admitted to telemetry floor. Supplemental oxygen provided to keep pulse oximetry above 92%. Patient started on IV steroids , which gradually tapered down and changed to oral Medrol Dosepak upon discharge Nebulizing treatment provided with bronchodilators around the clock and as needed. Patient started on inhaled steroids with budesonide every 12 hours. Patient started on empiric antibiotics. Trial of theophylline was started. Antitussive provided as needed. Singular was continued. Sputum culture was positive for Suha. Blood culture revealed 1 out of 4 Staphylococcus coagulase negative. Infectious disease specialist and apple checker closely followed. According to infectious disease specialist, blood culture was likely contaminant. Recommended continue prophylactic antibiotics upon discharge to complete the course. Follow-up chest x-ray revealed no acute process. DVT prophylaxis provided. Blood pressure was managed with calcium channel steph and remained stable. Antiplatelet therapy with Plavix provided . Statin was continued. Seizure precautions were maintained. Dilantin was continued. No evidence of seizure activity while in the hospital. GI prophylaxis provided. Bowel regimen instituted. Supportive care provided. Psychiatrist closely followed and diagnosed patient with major depressive disorder and anxiety . Psychiatrist started patient on Prozac. Patient slowly improved. Patient was stable and for discharge home with home health services to follow FINAL DIAGNOSES: Acute respiratory failure-resolved Acute asthma exacerbation Bronchitis Cerebrovascular disease with history of hemorrhagic stroke Hypertension Seizure disorder Hypercholesterolemia Coronary artery disease with history of stent placement in November 2017 GERD Vascular dementia Major depressive disorder Anxiety disorder DISCHARGE MEDICATIONS: See Medication Reconciliation list. DISCHARGE INSTRUCTIONS: Patient was discharged home with home health services. Follow up with primary care provider in one week. I have been assigned to dictate discharge summary for this account. I was not involved in the patient's management. Jessica Landry NP May 30, 2018 10:01
== END 2018-05-28 14:47 | disposition home or self-care (01) | DRG 202 ==
LOC: EDBD 03:15 → EMR 03:20 → 2E 03:42 → EDBEDREQ 03:59 → 3E 17:25
DX: J45.901 Unspecified asthma with (acute) exacerbation (principal); J96.00 Acute respiratory failure, unspecified whether with hypoxia or hypercapnia; I10 Essential (primary) hypertension; Z88.1 Allergy status to other antibiotic agents; Z86.73 Personal history of transient ischemic attack (TIA), and cerebral infarction without residual deficits; K21.9 Gastro-esophageal reflux disease without esophagitis; E78.00 Pure hypercholesterolemia, unspecified; G40.909 Epilepsy, unspecified, not intractable, without status epilepticus; I25.10 Atherosclerotic heart disease of native coronary artery without angina pectoris; Z95.5 Presence of coronary angioplasty implant and graft; J40 Bronchitis, not specified as acute or chronic; F01.50 Vascular dementia, unspecified severity, without behavioral disturbance, psychotic disturbance, mood disturbance, and anxiety; F32.9 Major depressive disorder, single episode, unspecified; F41.9 Anxiety disorder, unspecified
CPT/HCPCS: 36415; 36600; 71045; 80053; 82550; 82553; 82803; 83605; 83880; 84484; 85025; 87040; 87070; 87181; 87205; 93005; 94640; 94664; 94760; 96365; 96375; 99285; J7620

== ENCOUNTER 2018-08-15 11:37 | Inpatient (IN) | payer MEDICARE, MEDICAID ==
[~2018-08-15] VITALS: Ht 157.5 cm; Wt 68.0 kg
[~2018-08-15 11:37] MED LIST changes: +LEVOFLOXACIN250 MG ORAL; +LEVOFLOXACIN500 MG ORAL
[2018-08-15] MEDS ORDERED: Ipratropium 0.02% Inh Soln 2.5ml UD HHN ONE (11:45)
[2018-08-15] MEDS ORDERED: Solu-MEDROL 125mg Inj IVP ONE (11:45)
[2018-08-15] MEDS ORDERED: Albuterol ud Inhalation HHN ONE (11:45)
[2018-08-15 11:47] VITALS: BP 159/95
[2018-08-15] MEDS ORDERED: LOSARTAN-HCTZ1 EACH ORAL (11:52)
[2018-08-15 12:12] LABS: BASOPHILS % (AUTO) 0.5 % (0.0-2.0); EOSINOPHILS % (AUTO) 4.9 % (0.0-3.0); HEMATOCRIT 38.6 % (37.0-47.0); HEMOGLOBIN 13.2 G/DL (12.0-16.0); LYMPHOCYTES % (AUTO) 28.1 % (20.0-45.0); MEAN CORPUSCULAR VOLUME 89 FL (80-99); MONOCYTES % (AUTO) 8.6 % (1.0-10.0); PLATELET COUNT 246 K/UL (150-450); RED BLOOD COUNT 4.32 M/UL (4.20-5.40); RED CELL DISTRIBUTION WIDTH 12.1 % (11.6-14.8); WHITE BLOOD COUNT 6.6 K/UL (4.8-10.8)
--- NOTE | 2018-08-15 12:12 | Emergency Room Report ---
History of Present Illness General Chief Complaint: Asthma Source: Patient, Medical Record Present Illness HPI Patient presents with complaints of shortness of breath Reports chest heaviness as well Patient has significant asthma and has had previous hospitalizations Denies any vomiting or diarrhea and eyes any fevers chills she has had some increased cough Heaviness on the chest is 3 out of 10 denies any radiation Denies any change with her inhaler at home Allergies: Coded Allergies: VANCOMYCIN (Verified Allergy, Unknown, red eyes, itchying, 10/10/16) Uncoded Allergies: Canned Food (Allergy, Unknown, 03/22/18) Nausea/Vomitting/Indigestion Patient History Past Medical History: see triage record Pertinent Family History: none Reviewed Nursing Documentation: PMH: Agreed; PSxH: Agreed Nursing Documentation-PMH Past Medical History: No History, Except For Hx Cardiac Problems: Yes - cardiomegaly, ribs fx Hx Hypertension: Yes Hx Asthma: Yes Hx Cancer: No Hx Gastrointestinal Problems: No Hx Neurological Problems: Yes Hx Cerebrovascular Accident: Yes Hx Seizures: Yes Review of Systems All Other Systems: negative except mentioned in HPI Physical Exam Vital Signs Date Time Temp Pulse Resp B/P (MAP) Pulse Ox O2 Delivery O2 Flow Rate FiO2 08/15/18 11:47 97.7 98 24 159/95 94 Room Air 08/15/18 12:02 21 Sp02 EP Interpretation: reviewed, normal General Appearance: moderate distress - Short of breath Head: normocephalic, atraumatic Eyes: bilateral eye PERRL, bilateral eye EOMI ENT: hearing grossly normal, normal pharynx Neck: supple Respiratory: wheezing - And tachypneic Cardiovascular #1: regular rate, rhythm, no edema Gastrointestinal: soft, no mass Musculoskeletal: normal inspection Neurologic: alert, oriented x3, responsive Skin: normal color, no rash Procedures Critical Care Time Critical Care Time 40 minutes for multiple re-evaluations initial presentation concerning for respiratory failure, not including any procedural time Medical Decision Making Diagnostic Impression: Primary Impression: Dyspnea Additional Impressions: Acute asthma Acute asthma exacerbation ER Course Patient is a fairly complex patient with multiple differential to consideration including but not limited to cardiac cardiopulmonary and vascular emergencies Patient upon arrival initially is mildly tachypneic and appears short of breath given the wheezing and history of asthma acute breathing treatments are initiated EKG does not show any obvious ST elevations Consideration for pulmonary embolism is made however patient has a history of asthma After acute intervention patient has started to feel better And at this time will require further inpatient care Labs Test 08/15/18 11:55 08/16/18 05:15 White Blood Count 6.6 K/UL (4.8-10.8) Red Blood Count 4.32 M/UL (4.20-5.40) Hemoglobin 13.2 G/DL (12.0-16.0) Hematocrit 38.6 % (37.0-47.0) Mean Corpuscular Volume 89 FL (80-99) Mean Corpuscular Hemoglobin 30.5 PG (27.0-31.0) Mean Corpuscular Hemoglobin Concent 34.1 G/DL (32.0-36.0) Red Cell Distribution Width 12.1 % (11.6-14.8) Platelet Count 246 K/UL (150-450) Mean Platelet Volume 6.3 FL (6.5-10.1) Neutrophils (%) (Auto) 58.0 % (45.0-75.0) Lymphocytes (%) (Auto) 28.1 % (20.0-45.0) Monocytes (%) (Auto) 8.6 % (1.0-10.0) Eosinophils (%) (Auto) 4.9 % (0.0-3.0) Basophils (%) (Auto) 0.5 % (0.0-2.0) Sodium Level 140 MMOL/L (136-145) Potassium Level 3.0 MMOL/L (3.5-5.1) Chloride Level 100 MMOL/L (98-107) Carbon Dioxide Level 33 MMOL/L (21-32) Anion Gap 8 mmol/L (5-15) Blood Urea Nitrogen 15 mg/dL (7-18) Creatinine 0.9 MG/DL (0.55-1.30) Estimat Glomerular Filtration Rate mL/min (>60) Glucose Level 189 MG/DL (74-106) Calcium Level 8.7 MG/DL (8.5-10.1) Total Bilirubin 0.3 MG/DL (0.2-1.0) Aspartate Amino Transf (AST/SGOT) 11 U/L (15-37) Alanine Aminotransferase (ALT/SGPT) 27 U/L (12-78) Alkaline Phosphatase 136 U/L (46-116) Total Creatine Kinase 125 U/L (26-308) Creatine Kinase MB 2.1 NG/ML (0.0-3.6) Creatine Kinase MB Relative Index 1.6 Troponin I 0.032 ng/mL (0.000-0.056) Pro-B-Type Natriuretic Peptide 76 pg/mL (0-125) Total Protein 7.7 G/DL (6.4-8.2) Albumin 3.5 G/DL (3.4-5.0) Globulin 4.2 g/dL Albumin/Globulin Ratio 0.8 (1.0-2.7) Lipase 86 U/L (73-393) EKG Diagnostic Results Rate: tachycardiac Rhythm: other ST Segments: other - Nonspecific ST T-wave changes Rhythm Strip Diag. Results EP Interpretation: yes Rate: 88 Rhythm: NSR, no PVC's, no ectopy Chest X-Ray Diagnostic Results Chest X-Ray Diagnostic Results : Chest X-Ray Ordered: Yes # of Views/Limited/Complete: 1 View Indication: Chest Pain EP Interpretation: Yes Interpretation: no consolidation, no pneumothorax, other - Small right effusion Impression: Other - Small right effusion Electronically Signed by: Epifanio Lebron DO Last Vital Signs Date Time Temp Pulse Resp B/P (MAP) Pulse Ox O2 Delivery O2 Flow Rate FiO2 08/15/18 12:02 88 12 97 Room Air 21 08/15/18 11:47 97.7 159/95 Status: improved Disposition: ADMITTED INPATIENT Condition: Serious Epifanio Lebron DO Aug 15, 2018 12:12
[2018-08-15 12:22] LABS: ANION GAP 8 mmol/L (5-15); BLOOD UREA NITROGEN 15 mg/dL (7-18); CALCIUM 8.7 MG/DL (8.5-10.1); CARBON DIOXIDE 33 MMOL/L (21-32); CHLORIDE 100 MMOL/L (98-107); CREATININE 0.9 MG/DL (0.55-1.30); SODIUM 140 MMOL/L (136-145)
[2018-08-15 12:35] LABS: ALANINE AMINOTRANSFERASE 27 U/L (12-78); ALBUMIN 3.5 G/DL (3.4-5.0); ALBUMIN/GLOBULIN RATIO 0.8 (1.0-2.7); ALKALINE PHOSPHATASE 136 U/L (46-116); ASPARTATE AMINO TRANSFERASE 11 U/L (15-37); BILIRUBIN,TOTAL 0.3 MG/DL (0.2-1.0); CKMB 2.1 NG/ML (0.0-3.6); CREATINE KINASE 125 U/L (26-308)
[2018-08-15 12:40] VITALS: BP 132/64
--- NOTE | 2018-08-15 12:44 | Diagnostic Imaging Report ---
Indication: Shortness of breath Technique: One view of the chest Comparison: 05/27/2018 Findings: There is currently slight blunting of right costophrenic sulcus. Lungs and pleural spaces are otherwise clear. The heart is borderline enlarged. The aorta is tortuous and calcified. There is suggestion of some scarring at the left lung apex. Retrocardiac hiatal hernia is again demonstrated. Impression: Likely small right pleural effusion Cardiomegaly Hiatal hernia
[2018-08-15 15:10] VITALS: BP 153/79
[2018-08-15 16:00] VITALS: BP 157/85
[2018-08-15] MEDS ORDERED: Ketorolac 30mg Inj IV PRN (17:15)
[2018-08-15] MEDS ORDERED: Nitroglycerin Subl 0.4mg tab SL PRN (17:15)
[2018-08-15] MEDS ORDERED: LORazepam Inj 2mg/ml 1ml IV PRN (17:15)
[2018-08-15] MEDS ORDERED: Morphine Sulfate 2mg/ml Inj IVP PRN (17:15)
[2018-08-15] MEDS: Solu-MEDROL 125mg Inj IV SCH ×2 (18:04→23:20)
[2018-08-15] MEDS: Piperacillin/Tazobactam 3.375 GM in D5W 110 ML IVPB SCH (18:21)
--- NOTE | 2018-08-15 19:52 | History & Physical ---
History and Physical History & Physicial Dictated for Int Med-Dr Garcia no. [id number]. Hank Toure MD Aug 15, 2018 19:52
[2018-08-15 20:00] VITALS: BP 148/78
[2018-08-15] MEDS: Theophylline ER 100mg ORAL SCH (21:20)
[2018-08-15] MEDS: Heparin 5000 units/ml inj SUBQ SCH (21:21)
[2018-08-15] MEDS: Promethazine/Codeine 5ml UD ORAL PRN (22:48)
[2018-08-15] MEDS: Albuterol/Ipratropium 3ml neb HHN PRN (23:01)
[2018-08-15 23:18] VITALS: BP 131/70
--- NOTE | 2018-08-16 01:45 | History and Physical Report ---
DATE OF ADMISSION: 08/15/2018 CHIEF COMPLAINT: The patient is an 83-year-old Telugu female, who presents with complaint of shortness of breath. HISTORY OF PRESENT ILLNESS: The patient was admitted to [facility] from 05/22/2018 to 05/28/2018. The patient was admitted for asthma exacerbation. The patient presented to [facility] emergency room complaining of a two-day history of shortness of breath. The patient states she had some chest tightness and heaviness as well. The patient denies any fevers or chills. The patient does complain of cough. The patient is admitted for shortness of breath to rule out acute exacerbation of asthma versus pneumonia. REVIEW OF SYSTEMS: CONSTITUTIONAL: The patient denies weight loss or weight gain. The patient denies fevers or chills. HEENT: The patient denies ear or throat pain. The patient denies headache. CARDIOVASCULAR: The patient complains of chest tightness as above. The patient denies palpitations. CHEST: The patient complains of shortness of breath as above. The patient denies wheezes. ABDOMEN: The patient denies nausea, vomiting, diarrhea, or constipation. GENITOURINARY: The patient denies dysuria or increased frequency of urination. NEUROMUSCULAR: The patient denies seizures or generalized weakness. PAST MEDICAL HISTORY: Significant for: 1. Asthma. 2. History of hemorrhagic cerebrovascular accident. 3. Hypertension. 4. Hypercholesterolemia. 5. Gastroesophageal reflux disease. 6. Seizure disorder. 7. Coronary artery disease, status post stent placement in November of 2017. PAST SURGICAL HISTORY: Significant for: 1. Appendectomy. 2. Cardiac catheterization in November 2017 with one stent placed. CURRENT MEDICATIONS: 1. Albuterol metered-dose inhaler two puffs p.o. q.i.d. p.r.n. 2. Amlodipine 2.5 mg p.o. daily. 3. Atorvastatin 40 mg p.o. daily. 4. Clopidogrel 75 mg p.o. daily. 5. Dexilant 60 mg p.o. daily. 6. Prozac 20 mg p.o. daily. 7. Advair 250/50 one puff p.o. twice daily. 8. Hydroxyzine 25 mg p.o. q.6 hours p.r.n. 9. Labetalol. 10. Isosorbide 30 mg p.o. daily. 11. Zyrtec 5 mg p.o. daily. 12. Losartan/hydrochlorothiazide 100/12.5 one tablet p.o. daily. 13. Singulair 10 mg p.o. daily. 14. Protonix 40 mg p.o. daily. 15. Dilantin 100 mg p.o. twice daily. 16. Prednisone as needed p.r.n. 17. Lyrica 50 mg p.o. twice daily. 18. Valsartan/hydrochlorothiazide 160/12.5 one tablet p.o. q.12 hours. ALLERGIES: Vancomycin. SOCIAL HISTORY: The patient is a . The patient is single. The patient lives alone. The patient denies tobacco or alcohol use. PHYSICAL EXAMINATION: VITAL SIGNS: Temperature 98.0, respirations 14 to 25, pulse 90 to 96, blood pressure 132/64, and pulse ox 95% on room air. GENERAL: The patient is well-developed, well-nourished, thin appearing female, in no apparent distress. HEENT: Eyes, pupils equal and responsive to light and accommodation. Extraocular movements are intact. NECK: Supple without lymphadenopathy. CHEST: Diffuse wheezes in bilateral bases. Otherwise, clear to auscultation without rales. CARDIOVASCULAR: Regular rhythm and rate. S1-S2 are normal without murmurs, rubs, or gallops. ABDOMEN: Soft, nontender, and nondistended. Positive bowel sounds. No evidence of hepatosplenomegaly. Currently, no rebound or guarding noted. EXTREMITIES: Negative for clubbing, cyanosis, or edema. RECTAL/GENITAL: Refused. NEUROLOGIC: Cranial nerves II through XII are grossly intact without focal deficits. Motor strength is 5/5 bilaterally. Deep tendon reflexes are 2+ plantar. LABORATORY STUDIES: WBC 6.6, hemoglobin 13.2, hematocrit 38.6, and platelets 246,000. Sodium 140, potassium decreased 3.0, chloride 100, CO2 33, BUN 15, creatinine 0.9, and glucose 189. Troponin 0.032. Chest x-ray showed cardiomegaly and a small right pleural effusion. Otherwise, no acute disease. ASSESSMENT: This is an 83-year-old female. 1. Shortness of breath. 2. Pleuritic chest pain. 3. Acute exacerbation of asthma. 4. Cerebrovascular disease. 5. Hypertension. 6. Hypercholesterolemia. 7. Gastroesophageal reflux disease. 8. History of seizure disorder. 9. Coronary artery disease. TREATMENT: 1. Shortness of breath/asthma exacerbation. Pulmonary consultation will be obtained with Dr. Luis A Juares. The patient has been started on intravenous Solu-Medrol. The patient is currently receiving DuoNeb. We will follow recommendations of Pulmonary. 2. Cerebrovascular disease. The patient is status post hemorrhagic stroke. 3. Hypertension. Continue amlodipine as above. 4. Hypercholesteremia. Continue Lipitor as above. 5. Gastroesophageal reflux disease. Dexilant is non formulary at [facility]. The patient has been started on Protonix. 6. Seizure disorder. Continue Dilantin as above. 7. Coronary artery disease. Hank Toure M.D. DR: THERESA JOB#: [id number] CC:
[2018-08-16] MEDS: Piperacillin/Tazobactam 3.375 GM in D5W 110 ML IVPB SCH ×3 (02:06→17:58)
[2018-08-16] MEDS: Albuterol/Ipratropium 3ml neb HHN PRN ×2 (03:51→09:36)
[2018-08-16 04:00] VITALS: BP 135/66
[2018-08-16] MEDS: Promethazine/Codeine 5ml UD ORAL PRN (05:45)
[2018-08-16] MEDS: Solu-MEDROL 125mg Inj IV SCH ×3 (05:45→17:58)
[2018-08-16 07:25] LABS: ANION GAP 10 mmol/L (5-15); BLOOD UREA NITROGEN 20 mg/dL (7-18); CALCIUM 9.1 MG/DL (8.5-10.1); CARBON DIOXIDE 30 MMOL/L (21-32); CHLORIDE 100 MMOL/L (98-107); CREATININE 0.7 MG/DL (0.55-1.30); POTASSIUM 3.1 MMOL/L (3.5-5.1); SODIUM 140 MMOL/L (136-145)
[2018-08-16 07:31] LABS: BASOPHILS % (AUTO) 0.3 % (0.0-2.0); EOSINOPHILS % (AUTO) 0.1 % (0.0-3.0); HEMATOCRIT 39.6 % (37.0-47.0); HEMOGLOBIN 13.8 G/DL (12.0-16.0); LYMPHOCYTES % (AUTO) 21.4 % (20.0-45.0); MEAN CORPUSCULAR VOLUME 89 FL (80-99); MONOCYTES % (AUTO) 2.7 % (1.0-10.0); NEUTROPHILS % (AUTO) 75.6 % (45.0-75.0); PLATELET COUNT 243 K/UL (150-450); RED BLOOD COUNT 4.44 M/UL (4.20-5.40); RED CELL DISTRIBUTION WIDTH 12.3 % (11.6-14.8); WHITE BLOOD COUNT 6.3 K/UL (4.8-10.8)
[2018-08-16 08:00] VITALS: BP 146/72
[2018-08-16] MEDS: Theophylline ER 100mg ORAL SCH ×2 (08:10→21:38)
[2018-08-16] MEDS: Heparin 5000 units/ml inj SUBQ SCH ×2 (08:14→21:38)
[2018-08-16] MEDS ORDERED: Lyrica 50mg cap ORAL SCH ×2 (09:10→21:00)
[2018-08-16] MEDS ORDERED: Phenytoin 100mg cap ORAL SCH ×4 (09:30→21:00)
[2018-08-16] MEDS ORDERED: Imdur 30mg tab ORAL SCH (09:32)
--- NOTE | 2018-08-16 10:28 | Consultation ---
History of Present Illness General Date patient seen: Aug 16, 2018 Chief Complaint: Asthma Present Illness HPI 83-year-old female with history of HTN, asthma, CVA/TIA presents to ED for evaluation for shortness of breath. Per EMS patient was wheezing and they started her on breathing treatments. Patient states she feels a little better but still feels very short of breath. States she's been using her inhaler at home without significant relief. Denies cough. Denies chest pain. Denies fevers or chills. Denies sick contacts or recent travel. Pt is admitted to telemetry for further treatment. Allergies: Coded Allergies: VANCOMYCIN (Verified Allergy, Unknown, red eyes, itchying, 10/10/16) Uncoded Allergies: Canned Food (Allergy, Unknown, 03/22/18) Nausea/Vomitting/Indigestion Medication History Scheduled Albuterol Sulfate (Ventolin Hfa), 1 PUFF INH EVERY 6 HOURS Amlodipine Besylate* (Amlodipine Besylate*), 2.5 MG ORAL DAILY, (Reported) Atorvastatin (Lipitor), 40 MG ORAL DAILY, (Reported) Clopidogrel* (Clopidogrel*), 75 MG ORAL DAILY, (Reported) Dexlansoprazole (Dexilant), 60 MG ORAL QHS, (Reported) Dexlansoprazole (Dexilant), 60 MG ORAL DAILY, (Reported) Fluoxetine Hcl* (Prozac*), 20 MG ORAL DAILY, (Reported) Fluticasone/Salmeterol (Advair 250-50 Diskus), 1 PUFF INH EVERY 12 HOURS Labetalol Hcl* (Labetalol Hcl*), 100 MG IV DAILY, (Reported) Levocetirizine Dihydrochloride (Levocetirizine Dihydrochloride), 5 MG ORAL DAILY , (Reported) Levofloxacin (Levofloxacin*), 750 MG ORAL DAILY, (Reported) Loratadine (Loratadine), 10 MG PO DAILY, (Reported) Losartan/Hydrochlorothiazide (Losartan-Hctz 100-12.5 Mg Tab), 1 TAB ORAL DAILY, (Reported) Montelukast Sodium (Montelukast Sodium), 10 MG ORAL DAILY, (Reported) Montelukast Sodium* (Montelukast Sodium*), 10 MG ORAL DAILY, (Reported) Pantoprazole* (Protonix*), 40 MG ORAL DAILY, (Reported) Phenytoin Sodium Extended* (Phenytoin Sodium Extended*), 100 MG ORAL DAILY, ( Reported) Phenytoin Sodium Extended* (Phenytoin Sodium Extended*), 100 MG ORAL BEDTIME, ( Reported) Pregabalin (Lyrica), 50 MG ORAL Q12HR, (Reported) Valsartan/Hydrochlorothiazide 160-12.5 (Valsartan-Hctz 160-12.5 Mg Tab), 1 TAB ORAL Q12HR, (Reported) Scheduled PRN Codeine/Promethazine Hcl* (Promethazine-Codeine Syrup*), 5 ML ORAL Q8HR PRN for For Cough, (Reported) Hydroxyzine HCl (Hydroxyzine HCl), 25 MG ORAL Q6H PRN Miscellaneous Medications Isosorbide (Isosorbide), 30 MG MC, (Reported) Methylprednisolone (Medrol), 4 MG PO, (Reported) Prednisone (Prednisone), 40 MG PO, (Reported) Patient History Healthcare decision maker Resuscitation status Advanced Directive on File Past Medical/Surgical History Past Medical/Surgical History: (1) Anxiety (2) Vascular dementia (3) Cerebral vascular disease (4) CAD (coronary artery disease) (5) HTN (hypertension) Review of Systems All Other Systems: negative except mentioned in HPI Physical Exam General Appearance: WD/WN Lines, tubes and drains: peripheral HEENT: normocephalic, atraumatic Neck: non-tender, normal alignment Respiratory/Chest: rhonchi - left, rhonchi - right, expiratory wheezing, inspiratory wheezing Cardiovascular/Chest: normal peripheral pulses, normal rate Abdomen: normal bowel sounds, non tender Extremities: normal range of motion, non-tender Skin Exam: normal pigmentation Last 24 Hour Vital Signs Date Time Temp Pulse Resp B/P (MAP) Pulse Ox O2 Delivery O2 Flow Rate FiO2 08/16/18 10:04 92 20 Room Air 3.0 32 08/16/18 09:39 90 18 95 Nasal Cannula 3.0 32 08/16/18 09:34 146/72 08/16/18 09:14 96 146/72 08/16/18 09:00 Nasal Cannula 3.0 Nasal Cannula 3.0 08/16/18 08:00 98.7 96 20 146/72 (96) 98 08/16/18 04:02 103 18 99 Room Air 21 08/16/18 04:00 97.7 81 18 135/66 (89) 98 08/16/18 03:52 105 22 94 Room Air 21 08/16/18 03:42 105 08/15/18 23:23 87 08/15/18 23:18 98.0 85 18 131/70 (90) 97 08/15/18 23:11 97 18 99 Room Air 21 08/15/18 23:01 86 18 98 Room Air 21 08/15/18 21:00 Nasal Cannula 3.0 08/15/18 20:00 98.0 93 18 148/78 (101) 98 08/15/18 19:47 94 12 Room Air 21 08/15/18 19:00 89 08/15/18 16:00 97.9 97 21 157/85 (109) 94 08/15/18 16:00 96 08/15/18 15:38 Room Air Room Air 08/15/18 15:10 98.1 96 18 153/79 (103) 97 08/15/18 13:35 89 22 148/80 95 Room Air 08/15/18 12:40 98.0 96 25 132/64 95 Room Air 08/15/18 12:30 90 14 98 Room Air 21 08/15/18 12:02 88 12 97 Room Air 21 08/15/18 12:02 88 12 Room Air 21 08/15/18 11:47 98 24 Room Air 08/15/18 11:47 97.7 92 24 159/95 94 Room Air 08/15/18 11:47 97.7 98 24 159/95 94 Room Air Intake and Output 08/15/18 08/16/18 19:00 07:00 Intake Total 200 ml Output Total 0 ml Balance 200 ml Intake Oral 200 ml Output Urine Total 0 ml # Voids 3 # Bowel Movements 1 1 Laboratory Tests Test 08/15/18 11:55 08/16/18 05:15 White Blood Count 6.6 K/UL (4.8-10.8) 6.3 K/UL (4.8-10.8) Red Blood Count 4.32 M/UL (4.20-5.40) 4.44 M/UL (4.20-5.40) Hemoglobin 13.2 G/DL (12.0-16.0) 13.8 G/DL (12.0-16.0) Hematocrit 38.6 % (37.0-47.0) 39.6 % (37.0-47.0) Mean Corpuscular Volume 89 FL (80-99) 89 FL (80-99) Mean Corpuscular Hemoglobin 30.5 PG (27.0-31.0) 31.1 PG (27.0-31.0) H Mean Corpuscular Hemoglobin Concent 34.1 G/DL (32.0-36.0) 34.8 G/DL (32.0-36.0) Red Cell Distribution Width 12.1 % (11.6-14.8) 12.3 % (11.6-14.8) Platelet Count 246 K/UL (150-450) 243 K/UL (150-450) Mean Platelet Volume 6.3 FL (6.5-10.1) L 7.3 FL (6.5-10.1) Neutrophils (%) (Auto) 58.0 % (45.0-75.0) 75.6 % (45.0-75.0) H Lymphocytes (%) (Auto) 28.1 % (20.0-45.0) 21.4 % (20.0-45.0) Monocytes (%) (Auto) 8.6 % (1.0-10.0) 2.7 % (1.0-10.0) Eosinophils (%) (Auto) 4.9 % (0.0-3.0) H 0.1 % (0.0-3.0) Basophils (%) (Auto) 0.5 % (0.0-2.0) 0.3 % (0.0-2.0) Sodium Level 140 MMOL/L (136-145) 140 MMOL/L (136-145) Potassium Level 3.0 MMOL/L (3.5-5.1) L 3.1 MMOL/L (3.5-5.1) L Chloride Level 100 MMOL/L (98-107) 100 MMOL/L (98-107) Carbon Dioxide Level 33 MMOL/L (21-32) H 30 MMOL/L (21-32) Anion Gap 8 mmol/L (5-15) 10 mmol/L (5-15) Blood Urea Nitrogen 15 mg/dL (7-18) 20 mg/dL (7-18) H Creatinine 0.9 MG/DL (0.55-1.30) 0.7 MG/DL (0.55-1.30) Estimat Glomerular Filtration Rate mL/min (>60) mL/min (>60) Glucose Level 189 MG/DL (74-106) H 141 MG/DL (74-106) H Calcium Level 8.7 MG/DL (8.5-10.1) 9.1 MG/DL (8.5-10.1) Total Bilirubin 0.3 MG/DL (0.2-1.0) Aspartate Amino Transf (AST/SGOT) 11 U/L (15-37) L Alanine Aminotransferase (ALT/SGPT) 27 U/L (12-78) Alkaline Phosphatase 136 U/L (46-116) H Total Creatine Kinase 125 U/L (26-308) Creatine Kinase MB 2.1 NG/ML (0.0-3.6) Creatine Kinase MB Relative Index 1.6 Troponin I 0.032 ng/mL (0.000-0.056) Pro-B-Type Natriuretic Peptide 76 pg/mL (0-125) Total Protein 7.7 G/DL (6.4-8.2) Albumin 3.5 G/DL (3.4-5.0) Globulin 4.2 g/dL Albumin/Globulin Ratio 0.8 (1.0-2.7) L Lipase 86 U/L (73-393) Height (Feet): 5 Height (Inches): 2.00 Weight (Pounds): 150 Medications Current Medications Medications (Trade) Dose Ordered Sig/Mecca Route PRN Reason Start Time Stop Time Status Last Admin Dose Admin Albuterol/ Ipratropium (Albuterol/ Ipratropium) 3 ml Q4HRT HHN 08/16/18 11:00 08/21/18 10:59 Amlodipine Besylate (Norvasc) 2.5 mg DAILY ORAL 08/16/18 09:10 09/15/18 09:09 08/16/18 09:14 Atorvastatin Calcium (Lipitor) 40 mg BEDTIME ORAL 08/16/18 21:00 09/15/18 20:59 Dextrose (Dextrose 50%) 25 ml Q30M PRN IV Hypoglycemia 08/15/18 17:15 09/14/18 17:14 Dextrose (Dextrose 50%) 50 ml Q30M PRN IV Hypoglycemia 08/15/18 17:15 09/14/18 17:14 Heparin Sodium (Porcine) (Heparin 5000 units/ml) 5,000 units EVERY 12 HOURS SUBQ 08/15/18 21:00 09/14/18 20:59 08/16/18 08:14 Isosorbide Mononitrate (Imdur) 30 mg DAILY ORAL 08/16/18 09:32 09/15/18 09:31 08/16/18 09:34 Ketorolac Tromethamine (Toradol 30mg) 30 mg Q8H PRN IV moderate pain 4-6 08/15/18 17:15 08/20/18 17:14 08/16/18 03:49 Lorazepam (Ativan 2mg/ml 1ml) 0.5 mg Q4H PRN IV For Anxiety 08/15/18 17:15 08/22/18 17:14 Methylprednisolone Sodium Succinate (Solu-MEDROL) 60 mg EVERY 6 HOURS IV 08/15/18 18:00 09/14/18 17:59 08/16/18 05:45 Morphine Sulfate (Morphine Sulfate) 2 mg Q4H PRN IVP severe pain 7-10 08/15/18 17:15 08/22/18 17:14 Nitroglycerin (Ntg) 0.4 mg Q5M X 3 DOSES PRN SL Prn Chest Pain 08/15/18 17:15 09/14/18 17:14 Ondansetron HCl (Zofran) 4 mg Q6H PRN IVP Nausea & Vomiting 08/15/18 17:15 09/14/18 17:14 Phenytoin (Dilantin) 100 mg DAILY ORAL 08/16/18 09:30 09/15/18 09:29 08/16/18 09:34 Phenytoin (Dilantin) 200 mg QHS ORAL 08/16/18 21:00 09/15/18 20:59 Piperacillin Sod/ Tazobactam Sod 3.375 gm/Dextrose 110 ml @ 27.5 mls/hr Q8H IVPB 08/15/18 18:00 08/22/18 17:59 08/16/18 09:15 Pregabalin (Lyrica) 50 mg Q12HR ORAL 08/16/18 09:10 09/15/18 09:09 08/16/18 09:15 Promethazine HCl/ Codeine (Phenergan with Codeine) 5 ml Q6H PRN ORAL cough 08/15/18 17:15 09/14/18 17:14 08/16/18 05:45 Temazepam (Restoril) 15 mg HSPRN PRN ORAL Insomnia 08/15/18 17:15 08/22/18 17:14 Theophylline (Fabrice-Dur) 100 mg EVERY 12 HOURS ORAL 08/15/18 21:00 09/14/18 20:59 08/16/18 08:10 Assessment/Plan Problem List: (1) Acute asthma exacerbation ICD Codes: J45.901 - Unspecified asthma with (acute) exacerbation SNOMED: 262481574 (2) Acute respiratory failure ICD Codes: J96.00 - Acute respiratory failure, unspecified whether with hypoxia or hypercapnia SNOMED: 00968597 (3) HTN (hypertension) ICD Codes: I10 - Essential (primary) hypertension SNOMED: 60496421 (4) Seizure disorder ICD Codes: G40.909 - Epilepsy, unspecified, not intractable, without status epilepticus SNOMED: 156978646 (5) Vascular dementia ICD Codes: F01.50 - Vascular dementia without behavioral disturbance SNOMED: 556341966 (6) Anxiety ICD Codes: F41.9 - Anxiety disorder, unspecified SNOMED: 86536753 Assessment/Plan respiratory treatment Iv steroids iv abx check sputum check electrolytes dvt prophylaxis symptomatic treatment Luis A Juares MD Aug 16, 2018 10:28
[2018-08-16 12:00] VITALS: BP 124/58
[2018-08-16] MEDS: Albuterol/Ipratropium 3ml neb HHN SCH ×4 (12:11→23:48)
--- NOTE | 2018-08-16 12:24 | Consultation ---
History of Present Illness General Chief Complaint: Asthma Present Illness HPI 83-year-old [place] female, who presents with complaint of shortness of breath. the pt cont with anxiety and depressive sxs Allergies: Coded Allergies: VANCOMYCIN (Verified Allergy, Unknown, red eyes, itchying, 10/10/16) Uncoded Allergies: Canned Food (Allergy, Unknown, 03/22/18) Nausea/Vomitting/Indigestion Medication History Scheduled Albuterol Sulfate (Ventolin Hfa), 1 PUFF INH EVERY 6 HOURS Amlodipine Besylate* (Amlodipine Besylate*), 2.5 MG ORAL DAILY, (Reported) Atorvastatin (Lipitor), 40 MG ORAL DAILY, (Reported) Clopidogrel* (Clopidogrel*), 75 MG ORAL DAILY, (Reported) Dexlansoprazole (Dexilant), 60 MG ORAL QHS, (Reported) Dexlansoprazole (Dexilant), 60 MG ORAL DAILY, (Reported) Fluoxetine Hcl* (Prozac*), 20 MG ORAL DAILY, (Reported) Fluticasone/Salmeterol (Advair 250-50 Diskus), 1 PUFF INH EVERY 12 HOURS Labetalol Hcl* (Labetalol Hcl*), 100 MG IV DAILY, (Reported) Levocetirizine Dihydrochloride (Levocetirizine Dihydrochloride), 5 MG ORAL DAILY , (Reported) Levofloxacin (Levofloxacin*), 750 MG ORAL DAILY, (Reported) Loratadine (Loratadine), 10 MG PO DAILY, (Reported) Losartan/Hydrochlorothiazide (Losartan-Hctz 100-12.5 Mg Tab), 1 TAB ORAL DAILY, (Reported) Montelukast Sodium (Montelukast Sodium), 10 MG ORAL DAILY, (Reported) Montelukast Sodium* (Montelukast Sodium*), 10 MG ORAL DAILY, (Reported) Pantoprazole* (Protonix*), 40 MG ORAL DAILY, (Reported) Phenytoin Sodium Extended* (Phenytoin Sodium Extended*), 100 MG ORAL DAILY, ( Reported) Phenytoin Sodium Extended* (Phenytoin Sodium Extended*), 100 MG ORAL BEDTIME, ( Reported) Pregabalin (Lyrica), 50 MG ORAL Q12HR, (Reported) Valsartan/Hydrochlorothiazide 160-12.5 (Valsartan-Hctz 160-12.5 Mg Tab), 1 TAB ORAL Q12HR, (Reported) Scheduled PRN Codeine/Promethazine Hcl* (Promethazine-Codeine Syrup*), 5 ML ORAL Q8HR PRN for For Cough, (Reported) Hydroxyzine HCl (Hydroxyzine HCl), 25 MG ORAL Q6H PRN Miscellaneous Medications Isosorbide (Isosorbide), 30 MG MC, (Reported) Methylprednisolone (Medrol), 4 MG PO, (Reported) Prednisone (Prednisone), 40 MG PO, (Reported) Patient History Healthcare decision maker Resuscitation status Advanced Directive on File Review of Systems Psychiatric: Reports: prior hx, anxiety, depressed feelings, emotional problems Physical Exam General Appearance: no apparent distress, alert, overweight Neurologic: oriented x 3, responsive, depressed affect Last 24 Hour Vital Signs Date Time Temp Pulse Resp B/P (MAP) Pulse Ox O2 Delivery O2 Flow Rate FiO2 08/16/18 12:17 Nasal Cannula 2.0 28 08/16/18 12:17 96 Nasal Cannula 2.0 28 08/16/18 12:17 90 18 96 Nasal Cannula 28 08/16/18 10:04 92 20 Room Air 3.0 32 08/16/18 09:39 90 18 95 Nasal Cannula 3.0 32 08/16/18 09:34 146/72 08/16/18 09:14 96 146/72 08/16/18 09:00 Nasal Cannula 3.0 Nasal Cannula 3.0 08/16/18 08:00 98.7 96 20 146/72 (96) 98 08/16/18 04:02 103 18 99 Room Air 21 08/16/18 04:00 97.7 81 18 135/66 (89) 98 08/16/18 03:52 105 22 94 Room Air 21 08/16/18 03:42 105 08/15/18 23:23 87 08/15/18 23:18 98.0 85 18 131/70 (90) 97 08/15/18 23:11 97 18 99 Room Air 21 08/15/18 23:01 86 18 98 Room Air 21 08/15/18 21:00 Nasal Cannula 3.0 08/15/18 20:00 98.0 93 18 148/78 (101) 98 08/15/18 19:47 94 12 Room Air 21 08/15/18 19:00 89 08/15/18 16:00 97.9 97 21 157/85 (109) 94 08/15/18 16:00 96 08/15/18 15:38 Room Air Room Air 08/15/18 15:10 98.1 96 18 153/79 (103) 97 08/15/18 13:35 89 22 148/80 95 Room Air 08/15/18 12:40 98.0 96 25 132/64 95 Room Air 08/15/18 12:30 90 14 98 Room Air 21 Intake and Output 08/15/18 08/16/18 19:00 07:00 Intake Total 200 ml Output Total 0 ml Balance 200 ml Intake Oral 200 ml Output Urine Total 0 ml # Voids 3 # Bowel Movements 1 1 Laboratory Tests Test 08/16/18 05:15 White Blood Count 6.3 K/UL (4.8-10.8) Red Blood Count 4.44 M/UL (4.20-5.40) Hemoglobin 13.8 G/DL (12.0-16.0) Hematocrit 39.6 % (37.0-47.0) Mean Corpuscular Volume 89 FL (80-99) Mean Corpuscular Hemoglobin 31.1 PG (27.0-31.0) H Mean Corpuscular Hemoglobin Concent 34.8 G/DL (32.0-36.0) Red Cell Distribution Width 12.3 % (11.6-14.8) Platelet Count 243 K/UL (150-450) Mean Platelet Volume 7.3 FL (6.5-10.1) Neutrophils (%) (Auto) 75.6 % (45.0-75.0) H Lymphocytes (%) (Auto) 21.4 % (20.0-45.0) Monocytes (%) (Auto) 2.7 % (1.0-10.0) Eosinophils (%) (Auto) 0.1 % (0.0-3.0) Basophils (%) (Auto) 0.3 % (0.0-2.0) Sodium Level 140 MMOL/L (136-145) Potassium Level 3.1 MMOL/L (3.5-5.1) L Chloride Level 100 MMOL/L (98-107) Carbon Dioxide Level 30 MMOL/L (21-32) Anion Gap 10 mmol/L (5-15) Blood Urea Nitrogen 20 mg/dL (7-18) H Creatinine 0.7 MG/DL (0.55-1.30) Estimat Glomerular Filtration Rate mL/min (>60) Glucose Level 141 MG/DL (74-106) H Calcium Level 9.1 MG/DL (8.5-10.1) Phenytoin (Dilantin) Level 9.0 ug/mL (10-20) L Height (Feet): 5 Height (Inches): 2.00 Weight (Pounds): 150 Medications Current Medications Medications (Trade) Dose Ordered Sig/Mecca Route PRN Reason Start Time Stop Time Status Last Admin Dose Admin Albuterol/ Ipratropium (Albuterol/ Ipratropium) 3 ml Q4HRT HHN 08/16/18 11:00 08/21/18 10:59 08/16/18 12:11 Amlodipine Besylate (Norvasc) 2.5 mg DAILY ORAL 08/16/18 09:10 09/15/18 09:09 08/16/18 09:14 Atorvastatin Calcium (Lipitor) 40 mg BEDTIME ORAL 08/16/18 21:00 09/15/18 20:59 Clopidogrel Bisulfate (Plavix) 75 mg DAILY ORAL 08/17/18 09:00 09/16/18 08:59 Dextrose (Dextrose 50%) 25 ml Q30M PRN IV Hypoglycemia 08/15/18 17:15 09/14/18 17:14 Dextrose (Dextrose 50%) 50 ml Q30M PRN IV Hypoglycemia 08/15/18 17:15 09/14/18 17:14 Fluoxetine HCl (PROzac) 20 mg DAILY ORAL 08/17/18 09:00 09/16/18 08:59 Heparin Sodium (Porcine) (Heparin 5000 units/ml) 5,000 units EVERY 12 HOURS SUBQ 08/15/18 21:00 09/14/18 20:59 08/16/18 08:14 Isosorbide Mononitrate (Imdur) 30 mg DAILY ORAL 08/16/18 09:32 09/15/18 09:31 08/16/18 09:34 Ketorolac Tromethamine (Toradol 30mg) 30 mg Q8H PRN IV moderate pain 4-6 08/15/18 17:15 08/20/18 17:14 08/16/18 03:49 Lorazepam (Ativan 2mg/ml 1ml) 0.5 mg Q4H PRN IV For Anxiety 08/15/18 17:15 08/22/18 17:14 Methylprednisolone Sodium Succinate (Solu-MEDROL) 60 mg EVERY 6 HOURS IV 08/15/18 18:00 09/14/18 17:59 08/16/18 11:12 Montelukast Sodium (Singulair) 10 mg Q24H ORAL 08/17/18 16:00 09/16/18 15:59 Morphine Sulfate (Morphine Sulfate) 2 mg Q4H PRN IVP severe pain 7-10 08/15/18 17:15 08/22/18 17:14 Nitroglycerin (Ntg) 0.4 mg Q5M X 3 DOSES PRN SL Prn Chest Pain 08/15/18 17:15 09/14/18 17:14 Ondansetron HCl (Zofran) 4 mg Q6H PRN IVP Nausea & Vomiting 08/15/18 17:15 09/14/18 17:14 Phenytoin (Dilantin) 100 mg DAILY ORAL 08/16/18 09:30 09/15/18 09:29 08/16/18 09:34 Phenytoin (Dilantin) 200 mg QHS ORAL 08/16/18 21:00 09/15/18 20:59 Piperacillin Sod/ Tazobactam Sod 3.375 gm/Dextrose 110 ml @ 27.5 mls/hr Q8H IVPB 08/15/18 18:00 08/22/18 17:59 08/16/18 09:15 Pregabalin (Lyrica) 50 mg Q12HR ORAL 08/16/18 09:10 09/15/18 09:09 08/16/18 09:15 Promethazine HCl/ Codeine (Phenergan with Codeine) 5 ml Q6H PRN ORAL cough 08/15/18 17:15 09/14/18 17:14 08/16/18 05:45 Temazepam (Restoril) 15 mg HSPRN PRN ORAL Insomnia 08/15/18 17:15 08/22/18 17:14 Theophylline (Fabrice-Dur) 100 mg EVERY 12 HOURS ORAL 08/15/18 21:00 09/14/18 20:59 08/16/18 08:10 Assessment/Plan Problem List: (1) Anxiety ICD Codes: F41.9 - Anxiety disorder, unspecified SNOMED: 13334539 (2) MDD (major depressive disorder), recurrent episode, moderate ICD Codes: F33.1 - Major depressive disorder, recurrent, moderate SNOMED: 84599984, [id number] Assessment/Plan Prozac 20mg qam provided christal/Sherin Garcia MD Aug 16, 2018 12:24
--- NOTE | 2018-08-16 15:11 | Internal Med Progress Note ---
Subjective Physician Name Shlomo Garcia Attending Physician Shlomo Garcia MD Current Medications Medications (Trade) Dose Ordered Sig/Mecca Route PRN Reason Start Time Stop Time Status Last Admin Dose Admin Albuterol/ Ipratropium (Albuterol/ Ipratropium) 3 ml Q4HRT HHN 08/16/18 11:00 08/21/18 10:59 08/16/18 12:11 Amlodipine Besylate (Norvasc) 2.5 mg DAILY ORAL 08/16/18 09:10 09/15/18 09:09 08/16/18 09:14 Atorvastatin Calcium (Lipitor) 40 mg BEDTIME ORAL 08/16/18 21:00 09/15/18 20:59 Clopidogrel Bisulfate (Plavix) 75 mg DAILY ORAL 08/17/18 09:00 09/16/18 08:59 Dextrose (Dextrose 50%) 25 ml Q30M PRN IV Hypoglycemia 08/15/18 17:15 09/14/18 17:14 Dextrose (Dextrose 50%) 50 ml Q30M PRN IV Hypoglycemia 08/15/18 17:15 09/14/18 17:14 Fluoxetine HCl (PROzac) 20 mg DAILY ORAL 08/17/18 09:00 09/16/18 08:59 Heparin Sodium (Porcine) (Heparin 5000 units/ml) 5,000 units EVERY 12 HOURS SUBQ 08/15/18 21:00 09/14/18 20:59 08/16/18 08:14 Isosorbide Mononitrate (Imdur) 30 mg DAILY ORAL 08/16/18 09:32 09/15/18 09:31 08/16/18 09:34 Ketorolac Tromethamine (Toradol 30mg) 30 mg Q8H PRN IV moderate pain 4-6 08/15/18 17:15 08/20/18 17:14 08/16/18 03:49 Lorazepam (Ativan 2mg/ml 1ml) 0.5 mg Q4H PRN IV For Anxiety 08/15/18 17:15 08/22/18 17:14 Methylprednisolone Sodium Succinate (Solu-MEDROL) 60 mg EVERY 6 HOURS IV 08/15/18 18:00 09/14/18 17:59 08/16/18 11:12 Montelukast Sodium (Singulair) 10 mg Q24H ORAL 08/17/18 16:00 09/16/18 15:59 Morphine Sulfate (Morphine Sulfate) 2 mg Q4H PRN IVP severe pain 7-10 08/15/18 17:15 08/22/18 17:14 Nitroglycerin (Ntg) 0.4 mg Q5M X 3 DOSES PRN SL Prn Chest Pain 08/15/18 17:15 09/14/18 17:14 Ondansetron HCl (Zofran) 4 mg Q6H PRN IVP Nausea & Vomiting 08/15/18 17:15 09/14/18 17:14 Phenytoin (Dilantin) 100 mg DAILY ORAL 08/16/18 09:30 09/15/18 09:29 08/16/18 09:34 Phenytoin (Dilantin) 200 mg QHS ORAL 08/16/18 21:00 09/15/18 20:59 Piperacillin Sod/ Tazobactam Sod 3.375 gm/Dextrose 110 ml @ 27.5 mls/hr Q8H IVPB 08/15/18 18:00 08/22/18 17:59 08/16/18 09:15 Pregabalin (Lyrica) 50 mg Q12HR ORAL 08/16/18 09:10 09/15/18 09:09 08/16/18 09:15 Promethazine HCl/ Codeine (Phenergan with Codeine) 5 ml Q6H PRN ORAL cough 08/15/18 17:15 09/14/18 17:14 08/16/18 05:45 Temazepam (Restoril) 15 mg HSPRN PRN ORAL Insomnia 08/15/18 17:15 08/22/18 17:14 Theophylline (Fabrice-Dur) 100 mg EVERY 12 HOURS ORAL 08/15/18 21:00 09/14/18 20:59 08/16/18 08:10 Allergies: Coded Allergies: VANCOMYCIN (Verified Allergy, Unknown, red eyes, itchying, 10/10/16) Uncoded Allergies: Canned Food (Allergy, Unknown, 03/22/18) Nausea/Vomitting/Indigestion Subjective awake, alert, responsive, + SOB, + dry cough, C/O chest wall pain Objective Last Vital Signs Date Time Temp Pulse Resp B/P (MAP) Pulse Ox O2 Delivery O2 Flow Rate FiO2 12/13/18 12:24 99 18 97 Nasal Cannula 2.0 28 08/16/18 12:00 97.9 124/58 (80) Laboratory Tests Test 08/16/18 05:15 White Blood Count 6.3 K/UL (4.8-10.8) Red Blood Count 4.44 M/UL (4.20-5.40) Hemoglobin 13.8 G/DL (12.0-16.0) Hematocrit 39.6 % (37.0-47.0) Mean Corpuscular Volume 89 FL (80-99) Mean Corpuscular Hemoglobin 31.1 PG (27.0-31.0) H Mean Corpuscular Hemoglobin Concent 34.8 G/DL (32.0-36.0) Red Cell Distribution Width 12.3 % (11.6-14.8) Platelet Count 243 K/UL (150-450) Mean Platelet Volume 7.3 FL (6.5-10.1) Neutrophils (%) (Auto) 75.6 % (45.0-75.0) H Lymphocytes (%) (Auto) 21.4 % (20.0-45.0) Monocytes (%) (Auto) 2.7 % (1.0-10.0) Eosinophils (%) (Auto) 0.1 % (0.0-3.0) Basophils (%) (Auto) 0.3 % (0.0-2.0) Sodium Level 140 MMOL/L (136-145) Potassium Level 3.1 MMOL/L (3.5-5.1) L Chloride Level 100 MMOL/L (98-107) Carbon Dioxide Level 30 MMOL/L (21-32) Anion Gap 10 mmol/L (5-15) Blood Urea Nitrogen 20 mg/dL (7-18) H Creatinine 0.7 MG/DL (0.55-1.30) Estimat Glomerular Filtration Rate mL/min (>60) Glucose Level 141 MG/DL (74-106) H Calcium Level 9.1 MG/DL (8.5-10.1) Phenytoin (Dilantin) Level 9.0 ug/mL (10-20) L Intake and Output 08/15/18 08/16/18 19:00 07:00 Intake Total 200 ml Output Total 0 ml Balance 200 ml Intake Oral 200 ml Output Urine Total 0 ml # Voids 3 # Bowel Movements 1 1 Objective General: No acute distress, awake and alert HEENT: NCAT, sclera anicteric, PERRL, EOMI. Neck: Supple, no significant jugular venous distention, Lungs: Good inspiratory effort, Decrease breath sound on bases, + Wheeze or Rales. Heart: Regular rate and rhythm, normal S1/S2, no murmurs. Abdomen: soft, nontender, nondistended. Normoactive bowel sounds. / Rectal: Refused and deferred. Extremities: No Cyanosis , clubbing or edema. Neuro: A&O x 3, Able to move all extremities Skin: warm, no rashes or lesions Psych: Normal mood and affect Assessment/Plan Assessment/Plan 1. Shortness of breath with acute hypemia respiratory failure.. 2. Pleuritic chest pain. 3. Acute exacerbation of asthma. 4. Cerebrovascular disease. 5. Hypertension. 6. Hypercholesterolemia. 7. Gastroesophageal reflux disease. 8. History of seizure disorder. 9. Coronary artery disease. Plan: on Telemetry Neb Tx Abx: Zosyn Solumedral IV Pain control Full code Heparin SQ Shlomo Garcia MD Aug 16, 2018 15:11
[2018-08-16 16:00] VITALS: BP 105/61
[2018-08-16 18:50] VITALS: BP 123/70
[2018-08-16] MEDS ORDERED: Nitroglycerin Subl 0.4mg tab SL PRN (19:00)
[2018-08-16 20:00] VITALS: BP 124/72
[2018-08-16] MEDS ORDERED: LORazepam Inj 2mg/ml 1ml IV PRN (20:30)
[2018-08-16] MEDS ORDERED: Morphine Sulfate 2mg/ml Inj IVP PRN (20:30)
[2018-08-16] MEDS ORDERED: Ketorolac 30mg Inj IV PRN (20:30)
[2018-08-16] MEDS ORDERED: Atorvastatin 20mg tab ORAL SCH (21:00)
[2018-08-16] MEDS: Phenytoin 100mg cap ORAL SCH (21:36)
[2018-08-16] MEDS: Lyrica 50mg cap ORAL SCH (21:37)
[2018-08-16] MEDS: Atorvastatin 20mg tab ORAL SCH (21:39)
[2018-08-17] VITALS: BP 141/77
[2018-08-17] MEDS: Solu-MEDROL 125mg Inj IV SCH ×4 (00:47→22:00)
[2018-08-17] MEDS: Piperacillin/Tazobactam 3.375 GM in D5W 110 ML IVPB SCH ×3 (01:11→17:22)
[2018-08-17] MEDS: Albuterol/Ipratropium 3ml neb HHN SCH ×6 (03:25→23:16)
[2018-08-17 04:00] VITALS: BP 134/67
[2018-08-17 08:00] VITALS: BP 147/80
[2018-08-17] MEDS: Theophylline ER 100mg ORAL SCH ×2 (08:30→20:54)
[2018-08-17] MEDS: Imdur 30mg tab ORAL SCH (08:30)
[2018-08-17] MEDS: Lyrica 50mg cap ORAL SCH ×2 (08:30→20:54)
[2018-08-17] MEDS: Phenytoin 100mg cap ORAL SCH ×2 (08:31→20:55)
[2018-08-17] MEDS: Heparin 5000 units/ml inj SUBQ SCH ×2 (08:32→20:56)
[2018-08-17] MEDS ORDERED: Atorvastatin 80mg tab ORAL SCH (09:00)
[2018-08-17 11:14] LABS: ALANINE AMINOTRANSFERASE 28 U/L (12-78); ALBUMIN 3.6 G/DL (3.4-5.0); ALBUMIN/GLOBULIN RATIO 0.9 (1.0-2.7); ALKALINE PHOSPHATASE 113 U/L (46-116); ANION GAP 9 mmol/L (5-15); ASPARTATE AMINO TRANSFERASE 12 U/L (15-37); BILIRUBIN,TOTAL 0.2 MG/DL (0.2-1.0); BLOOD UREA NITROGEN 25 mg/dL (7-18); CALCIUM 8.8 MG/DL (8.5-10.1); CARBON DIOXIDE 29 MMOL/L (21-32); CHLORIDE 100 MMOL/L (98-107); CREATININE 0.9 MG/DL (0.55-1.30); POTASSIUM 3.5 MMOL/L (3.5-5.1); SODIUM 138 MMOL/L (136-145)
[2018-08-17 12:00] VITALS: BP 146/77
--- NOTE | 2018-08-17 15:00 | Internal Med Progress Note ---
Subjective Physician Name Shlomo Garcia Attending Physician Shlomo Garcia MD Current Medications Medications (Trade) Dose Ordered Sig/Mecca Route PRN Reason Start Time Stop Time Status Last Admin Dose Admin Albuterol/ Ipratropium (Albuterol/ Ipratropium) 3 ml Q4HRT HHN 08/16/18 20:30 08/21/18 20:29 08/17/18 10:59 Amlodipine Besylate (Norvasc) 2.5 mg DAILY ORAL 08/17/18 09:00 09/15/18 09:09 08/17/18 08:30 Atorvastatin Calcium (Lipitor) 40 mg BEDTIME ORAL 08/16/18 21:00 09/15/18 20:59 08/16/18 21:39 Clopidogrel Bisulfate (Plavix) 75 mg DAILY ORAL 08/17/18 09:00 09/16/18 08:59 08/17/18 08:30 Dextrose (Dextrose 50%) 25 ml Q30M PRN IV Hypoglycemia 08/16/18 19:15 09/14/18 17:14 Dextrose (Dextrose 50%) 50 ml Q30M PRN IV Hypoglycemia 08/16/18 19:15 09/14/18 17:14 Fluoxetine HCl (PROzac) 20 mg DAILY ORAL 08/17/18 09:00 09/16/18 08:59 08/17/18 08:29 Heparin Sodium (Porcine) (Heparin 5000 units/ml) 5,000 units EVERY 12 HOURS SUBQ 08/16/18 21:00 09/14/18 20:59 08/17/18 08:32 Isosorbide Mononitrate (Imdur) 30 mg DAILY ORAL 08/17/18 09:00 09/15/18 09:31 08/17/18 08:30 Ketorolac Tromethamine (Toradol 30mg) 30 mg Q8H PRN IV moderate pain 4-6 08/16/18 20:30 08/21/18 20:29 08/17/18 01:12 Lorazepam (Ativan 2mg/ml 1ml) 0.5 mg Q4H PRN IV For Anxiety 08/16/18 20:30 08/22/18 20:29 Methylprednisolone Sodium Succinate (Solu-MEDROL) 60 mg EVERY 6 HOURS IV 08/17/18 00:00 09/14/18 17:59 08/17/18 11:19 Montelukast Sodium (Singulair) 10 mg QPM ORAL 08/17/18 16:30 09/16/18 16:29 Morphine Sulfate (Morphine Sulfate) 2 mg Q4H PRN IVP severe pain 7-10 08/16/18 20:30 08/22/18 20:29 Nitroglycerin (Ntg) 0.4 mg Q5M X 3 DOSES PRN SL Prn Chest Pain 08/16/18 19:00 09/14/18 17:14 Ondansetron HCl (Zofran) 4 mg Q6H PRN IVP Nausea & Vomiting 08/16/18 20:30 09/14/18 20:29 08/17/18 01:11 Pantoprazole (Protonix) 40 mg DAILY ORAL 08/17/18 09:00 09/16/18 08:59 08/17/18 08:31 Phenytoin (Dilantin) 100 mg DAILY ORAL 08/17/18 09:00 09/15/18 09:29 08/17/18 08:31 Phenytoin (Dilantin) 200 mg QHS ORAL 08/16/18 21:00 09/15/18 20:59 08/16/18 21:36 Piperacillin Sod/ Tazobactam Sod 3.375 gm/Dextrose 110 ml @ 27.5 mls/hr Q8H IVPB 08/17/18 02:00 08/22/18 17:59 08/17/18 09:25 Pregabalin (Lyrica) 50 mg Q12HR ORAL 08/16/18 21:00 09/15/18 09:09 08/17/18 08:30 Promethazine HCl/ Codeine (Phenergan with Codeine) 5 ml Q6H PRN ORAL cough 08/16/18 20:30 09/14/18 20:29 Temazepam (Restoril) 15 mg HSPRN PRN ORAL Insomnia 08/16/18 20:30 08/23/18 20:29 Theophylline (Fabrice-Dur) 100 mg EVERY 12 HOURS ORAL 08/16/18 21:00 09/14/18 20:59 08/17/18 08:30 Allergies: Coded Allergies: VANCOMYCIN (Verified Allergy, Unknown, red eyes, itchying, 10/10/16) Uncoded Allergies: Canned Food (Allergy, Unknown, 03/22/18) Nausea/Vomitting/Indigestion Subjective awake, alert, responsive, + SOB, less dry cough, C/O less chest wall pain Objective Last Vital Signs Date Time Temp Pulse Resp B/P (MAP) Pulse Ox O2 Delivery O2 Flow Rate FiO2 08/17/18 11:01 96 17 93 Room Air 21 08/17/18 09:00 2.0 2.0 08/17/18 08:30 147/80 08/17/18 08:00 97.5 Laboratory Tests Test 08/17/18 10:30 Sodium Level 138 MMOL/L (136-145) Potassium Level 3.5 MMOL/L (3.5-5.1) Chloride Level 100 MMOL/L (98-107) Carbon Dioxide Level 29 MMOL/L (21-32) Anion Gap 9 mmol/L (5-15) Blood Urea Nitrogen 25 mg/dL (7-18) H Creatinine 0.9 MG/DL (0.55-1.30) Estimat Glomerular Filtration Rate mL/min (>60) Glucose Level 193 MG/DL (74-106) H Calcium Level 8.8 MG/DL (8.5-10.1) Phosphorus Level 3.0 MG/DL (2.5-4.9) Magnesium Level 1.9 MG/DL (1.8-2.4) Total Bilirubin 0.2 MG/DL (0.2-1.0) Aspartate Amino Transf (AST/SGOT) 12 U/L (15-37) L Alanine Aminotransferase (ALT/SGPT) 28 U/L (12-78) Alkaline Phosphatase 113 U/L (46-116) Total Protein 7.6 G/DL (6.4-8.2) Albumin 3.6 G/DL (3.4-5.0) Globulin 4.0 g/dL Albumin/Globulin Ratio 0.9 (1.0-2.7) L Microbiology Date/Time Source Procedure Growth Status 08/15/18 12:15 Blood Blood Culture - Preliminary NO GROWTH AFTER 24 HOURS Resulted 08/15/18 12:10 Blood Blood Culture - Preliminary NO GROWTH AFTER 24 HOURS Resulted 08/15/18 23:10 Sputum Gram Stain - Final Resulted 08/15/18 23:10 Sputum Sputum Culture - Preliminary Resulted Intake and Output 08/16/18 08/17/18 19:00 07:00 Intake Total 500 ml 350.0 ml Balance 500 ml 350.0 ml Intake Oral 500 ml 240 ml IV Total 110.0 ml # Voids 4 2 # Bowel Movements 1 1 Objective General: No acute distress, awake and alert HEENT: NCAT, sclera anicteric, PERRL, EOMI. Neck: Supple, no significant jugular venous distention, Lungs: Good inspiratory effort, Decrease breath sound on bases, + Wheeze / Coarse breath sound, No Rales. Heart: Regular rate and rhythm, normal S1/S2, no murmurs. Abdomen: soft, nontender, nondistended. Normoactive bowel sounds. / Rectal: Refused and deferred. Extremities: No Cyanosis , clubbing or edema. Neuro: A&O x 3, Able to move all extremities Skin: warm, no rashes or lesions Psych: Normal mood and affect Assessment/Plan Assessment/Plan 1. Shortness of breath with acute hypemia respiratory failure.. 2. Pleuritic chest pain. 3. Acute exacerbation of asthma. 4. Cerebrovascular disease. 5. Hypertension. 6. Hypercholesterolemia. 7. Gastroesophageal reflux disease. 8. History of seizure disorder. 9. Coronary artery disease. Plan: DC Telemetry yesterday Neb Tx Abx: Zosyn Solumedral IV Pain control Full code Heparin SQ Start Claritin and Mucinex Shlomo Garcia MD Aug 17, 2018 15:00
--- NOTE | 2018-08-17 15:37 | Pulmonology Progress Note ---
Assessment/Plan Problems: (1) Acute asthma exacerbation (2) Acute respiratory failure (3) HTN (hypertension) (4) Seizure disorder (5) Vascular dementia (6) Anxiety Assessment/Plan increase steroids to 120 Q8 add lidocan inhalation for persistent cough check electrolytes on Montelucast symptomatic treatment check wbc continue abx Subjective ROS Limited/Unobtainable: No Constitutional: Reports: no symptoms HEENT: Repors: no symptoms Respiratory: Reports: no symptoms Allergies: Coded Allergies: VANCOMYCIN (Verified Allergy, Unknown, red eyes, itchying, 10/10/16) Uncoded Allergies: Canned Food (Allergy, Unknown, 03/22/18) Nausea/Vomitting/Indigestion Objective Last 24 Hour Vital Signs Date Time Temp Pulse Resp B/P (MAP) Pulse Ox O2 Delivery O2 Flow Rate FiO2 08/17/18 11:01 96 17 93 Room Air 21 08/17/18 09:00 Nasal Cannula 2.0 Nasal Cannula 2.0 08/17/18 08:30 147/80 08/17/18 08:30 96 147/80 08/17/18 08:00 97.5 96 18 147/80 (102) 94 08/17/18 07:04 90 19 97 Room Air 21 08/17/18 06:53 89 17 93 Room Air 21 08/17/18 06:53 Room Air 21 08/17/18 06:53 93 Room Air 21 08/17/18 04:00 97.7 87 18 134/67 (89) 94 08/17/18 03:38 91 20 99 Nasal Cannula 2.0 08/17/18 03:27 103 20 96 Nasal Cannula 2.0 08/17/18 00:00 97.9 87 20 141/77 (98) 98 08/16/18 23:59 87 18 98 Nasal Cannula 2.0 28 08/16/18 23:48 88 18 95 Nasal Cannula 2.0 08/16/18 21:00 Nasal Cannula 2.0 Nasal Cannula 2.0 08/16/18 20:29 88 18 99 Nasal Cannula 2.0 28 08/16/18 20:19 87 18 98 Nasal Cannula 2.0 28 08/16/18 20:19 98 Nasal Cannula 2.0 28 08/16/18 20:19 Nasal Cannula 2.0 28 08/16/18 20:00 97.7 89 18 124/72 (89) 98 08/16/18 19:06 Nasal Cannula 22.0 Nasal Cannula 2.0 08/16/18 18:50 98.0 93 123/70 (87) 93 08/16/18 16:10 88 18 99 Nasal Cannula 2.0 28 08/16/18 16:00 84 08/16/18 16:00 97.8 96 22 105/61 (76) 98 08/16/18 15:50 83 18 98 Nasal Cannula 28 Intake and Output 08/16/18 08/17/18 19:00 07:00 Intake Total 500 ml 350.0 ml Balance 500 ml 350.0 ml Intake Oral 500 ml 240 ml IV Total 110.0 ml # Voids 4 2 # Bowel Movements 1 1 General Appearance: WD/WN HEENT: normocephalic, anicteric Respiratory/Chest: chest wall non-tender, lungs clear Breasts: no masses Cardiovascular: normal rate Abdomen: normal bowel sounds, no organomegaly Skin: no rash, no lesions Microbiology Date/Time Source Procedure Growth Status 08/15/18 12:15 Blood Blood Culture - Preliminary NO GROWTH AFTER 24 HOURS Resulted 08/15/18 12:10 Blood Blood Culture - Preliminary NO GROWTH AFTER 24 HOURS Resulted 08/15/18 23:10 Sputum Gram Stain - Final Resulted 08/15/18 23:10 Sputum Sputum Culture - Preliminary Resulted Laboratory Tests 08/17/18 10:30: Sodium Level 138, Potassium Level 3.5, Chloride Level 100, Carbon Dioxide Level 29, Anion Gap 9, Blood Urea Nitrogen 25H, Creatinine 0.9, Estimat Glomerular Filtration Rate , Glucose Level 193H, Calcium Level 8.8, Phosphorus Level 3.0, Magnesium Level 1.9, Total Bilirubin 0.2, Aspartate Amino Transf (AST/SGOT) 12L , Alanine Aminotransferase (ALT/SGPT) 28, Alkaline Phosphatase 113, Total Protein 7.6, Albumin 3.6, Globulin 4.0, Albumin/Globulin Ratio 0.9L Current Medications Medications (Trade) Dose Ordered Sig/[place] Route PRN Reason Start Time Stop Time Status Last Admin Dose Admin Albuterol/ Ipratropium (Albuterol/ Ipratropium) 3 ml Q4HRT HHN 08/16/18 20:30 08/21/18 20:29 08/17/18 10:59 Amlodipine Besylate (Norvasc) 2.5 mg DAILY ORAL 08/17/18 09:00 09/15/18 09:09 08/17/18 08:30 Atorvastatin Calcium (Lipitor) 40 mg BEDTIME ORAL 08/16/18 21:00 09/15/18 20:59 08/16/18 21:39 Clopidogrel Bisulfate (Plavix) 75 mg DAILY ORAL 08/17/18 09:00 09/16/18 08:59 08/17/18 08:30 Dextrose (Dextrose 50%) 25 ml Q30M PRN IV Hypoglycemia 08/16/18 19:15 09/14/18 17:14 Dextrose (Dextrose 50%) 50 ml Q30M PRN IV Hypoglycemia 08/16/18 19:15 09/14/18 17:14 Fluoxetine HCl (PROzac) 20 mg DAILY ORAL 08/17/18 09:00 09/16/18 08:59 08/17/18 08:29 Guaifenesin (Mucinex ER) 600 mg TWICE A DAY ORAL 08/17/18 18:00 09/16/18 17:59 Heparin Sodium (Porcine) (Heparin 5000 units/ml) 5,000 units EVERY 12 HOURS SUBQ 08/16/18 21:00 09/14/18 20:59 08/17/18 08:32 Isosorbide Mononitrate (Imdur) 30 mg DAILY ORAL 08/17/18 09:00 09/15/18 09:31 08/17/18 08:30 Ketorolac Tromethamine (Toradol 30mg) 30 mg Q8H PRN IV moderate pain 4-6 08/16/18 20:30 08/21/18 20:29 08/17/18 01:12 Loratadine (Claritin 10mg) 10 mg DAILY ORAL 08/17/18 14:54 09/16/18 14:53 Lorazepam (Ativan 2mg/ml 1ml) 0.5 mg Q4H PRN IV For Anxiety 08/16/18 20:30 08/22/18 20:29 Methylprednisolone Sodium Succinate (Solu-MEDROL) 60 mg EVERY 6 HOURS IV 08/17/18 00:00 09/14/18 17:59 08/17/18 11:19 Montelukast Sodium (Singulair) 10 mg QPM ORAL 08/17/18 16:30 09/16/18 16:29 Morphine Sulfate (Morphine Sulfate) 2 mg Q4H PRN IVP severe pain 7-10 08/16/18 20:30 08/22/18 20:29 Nitroglycerin (Ntg) 0.4 mg Q5M X 3 DOSES PRN SL Prn Chest Pain 08/16/18 19:00 09/14/18 17:14 Ondansetron HCl (Zofran) 4 mg Q6H PRN IVP Nausea & Vomiting 08/16/18 20:30 09/14/18 20:29 08/17/18 01:11 Pantoprazole (Protonix) 40 mg DAILY ORAL 08/17/18 09:00 09/16/18 08:59 08/17/18 08:31 Phenytoin (Dilantin) 100 mg DAILY ORAL 08/17/18 09:00 09/15/18 09:29 08/17/18 08:31 Phenytoin (Dilantin) 200 mg QHS ORAL 08/16/18 21:00 09/15/18 20:59 08/16/18 21:36 Piperacillin Sod/ Tazobactam Sod 3.375 gm/Dextrose 110 ml @ 27.5 mls/hr Q8H IVPB 08/17/18 02:00 08/22/18 17:59 08/17/18 09:25 Potassium Chloride (K-Dur) 40 meq ONCE ORAL 08/17/18 14:55 08/17/18 15:55 Pregabalin (Lyrica) 50 mg Q12HR ORAL 08/16/18 21:00 09/15/18 09:09 08/17/18 08:30 Promethazine HCl/ Codeine (Phenergan with Codeine) 5 ml Q6H PRN ORAL cough 08/16/18 20:30 09/14/18 20:29 Temazepam (Restoril) 15 mg HSPRN PRN ORAL Insomnia 08/16/18 20:30 08/23/18 20:29 Theophylline (Fabrice-Dur) 100 mg EVERY 12 HOURS ORAL 08/16/18 21:00 09/14/18 20:59 08/17/18 08:30 Luis A Juares MD Aug 17, 2018 15:37
[2018-08-17 16:00] VITALS: BP 142/77
[2018-08-17] MEDS ORDERED: Montelukast 10mg tablet ORAL SCH (16:00)
[2018-08-17] MEDS: Montelukast 10mg tablet ORAL SCH (17:23)
[2018-08-17] MEDS: guaiFENesin ER 600mg tab ORAL SCH (17:23)
[2018-08-17 20:00] VITALS: BP 149/81
[2018-08-17] MEDS: Atorvastatin 20mg tab ORAL SCH (20:54)
[2018-08-17] MEDS: Promethazine/Codeine 5ml UD ORAL PRN (22:18)
[2018-08-17] MEDS: Lidocaine 1% MPF 10mg/ml 5ml HHN SCH (23:00)
--- NOTE | 2018-08-17 23:28 | General Progress Note ---
Assessment/Plan Problem List: (1) Anxiety ICD Codes: F41.9 - Anxiety disorder, unspecified SNOMED: 73342760 (2) MDD (major depressive disorder), recurrent episode, moderate ICD Codes: F33.1 - Major depressive disorder, recurrent, moderate SNOMED: 66292336, [id number] Assessment/Plan prozac 20mg qam provided ro/st Subjective Date patient seen: Aug 17, 2018 Neurologic/Psychiatric: Reports: anxiety, depressed, emotional problems Allergies: Coded Allergies: VANCOMYCIN (Verified Allergy, Unknown, red eyes, itchying, 10/10/16) Uncoded Allergies: Canned Food (Allergy, Unknown, 03/22/18) Nausea/Vomitting/Indigestion Objective Last 24 Hour Vital Signs Date Time Temp Pulse Resp B/P (MAP) Pulse Ox O2 Delivery O2 Flow Rate FiO2 08/17/18 23:23 92 20 98 Room Air 21 08/17/18 23:15 90 18 96 Room Air 08/17/18 20:49 96 Room Air 21 08/17/18 20:49 Room Air 21 08/17/18 20:48 98 20 99 Room Air 21 08/17/18 20:37 94 18 97 Room Air 21 08/17/18 20:00 96.9 95 18 149/81 (103) 95 08/17/18 16:00 97.7 89 18 142/77 (98) 94 08/17/18 15:47 93 20 98 Room Air 21 08/17/18 15:36 92 18 94 Room Air 21 08/17/18 12:00 97.8 95 18 146/77 (100) 94 08/17/18 11:12 97 18 98 Room Air 08/17/18 11:01 96 17 93 Room Air 08/17/18 09:00 Nasal Cannula 2.0 Nasal Cannula 2.0 08/17/18 08:30 147/80 08/17/18 08:30 96 147/80 08/17/18 08:00 97.5 96 18 147/80 (102) 94 08/17/18 07:04 90 19 97 Room Air 08/17/18 06:53 89 17 93 Room Air 08/17/18 06:53 Room Air 08/17/18 06:53 93 Room Air 08/17/18 04:00 97.7 87 18 134/67 (89) 94 08/17/18 03:38 91 20 99 Nasal Cannula 2.0 28 08/17/18 03:27 103 20 96 Nasal Cannula 2.0 28 08/17/18 00:00 97.9 87 20 141/77 (98) 98 08/16/18 23:59 87 18 98 Nasal Cannula 2.0 28 08/16/18 23:48 88 18 95 Nasal Cannula 2.0 28 Intake and Output 08/16/18 08/17/18 19:00 07:00 Intake Total 500 ml 350.0 ml Balance 500 ml 350.0 ml Intake Oral 500 ml 240 ml IV Total 110.0 ml # Voids 4 2 # Bowel Movements 1 1 Laboratory Tests 08/17/18 10:30: Sodium Level 138, Potassium Level 3.5, Chloride Level 100, Carbon Dioxide Level 29, Anion Gap 9, Blood Urea Nitrogen 25H, Creatinine 0.9, Estimat Glomerular Filtration Rate , Glucose Level 193H, Calcium Level 8.8, Phosphorus Level 3.0, Magnesium Level 1.9, Total Bilirubin 0.2, Aspartate Amino Transf (AST/SGOT) 12L , Alanine Aminotransferase (ALT/SGPT) 28, Alkaline Phosphatase 113, Total Protein 7.6, Albumin 3.6, Globulin 4.0, Albumin/Globulin Ratio 0.9L Height (Feet): 5 Height (Inches): 2.00 Weight (Pounds): 150 General Appearance: alert Neurologic: oriented x 3, responsive, depressed affect Sherin Holm MD Aug 17, 2018 23:28
[2018-08-18] VITALS: BP 128/69
[2018-08-18] MEDS: Piperacillin/Tazobactam 3.375 GM in D5W 110 ML IVPB SCH ×3 (02:05→17:18)
[2018-08-18] MEDS: Albuterol/Ipratropium 3ml neb HHN SCH ×6 (03:00→23:00)
[2018-08-18 04:00] VITALS: BP 155/88
[2018-08-18] MEDS: Solu-MEDROL 125mg Inj IV SCH ×3 (05:20→21:47)
--- NOTE | 2018-08-18 07:07 | Pulmonology Progress Note ---
Assessment/Plan Assessment/Plan ASSESSMENT acute resp failure acute asthma exacerbation HTN seizure disorder vascular dementia hypokalemia anxiety disorder PLAN OF CARE MS floor O2 HHN IV steroids and taper Lidocaine for persistent cough empiric abx sputum cx negative blood cx negative CXR no acute CP pathology trial of theophylline a/tussive prn BP management with CCB continue a/PLT therapy with Plavix and statin DVT, GI prophylaxis seizure precautions, continue Dilantin fup with psych recs case discussed and evaluated by supervising physician Subjective Allergies: Coded Allergies: VANCOMYCIN (Verified Allergy, Unknown, red eyes, itchying, 10/10/16) Uncoded Allergies: Canned Food (Allergy, Unknown, 03/22/18) Nausea/Vomitting/Indigestion Subjective still wheezing and coughing mild leukocytosis Objective Last 24 Hour Vital Signs Date Time Temp Pulse Resp B/P (MAP) Pulse Ox O2 Delivery O2 Flow Rate FiO2 08/18/18 04:00 98.2 93 18 155/88 (110) 95 08/18/18 03:42 Room Air 21 08/18/18 03:41 Room Air 21 08/18/18 00:00 97.6 96 18 128/69 (88) 94 08/17/18 23:23 92 20 98 Room Air 21 08/17/18 23:15 90 18 96 Room Air 21 08/17/18 21:00 Nasal Cannula 2.0 Nasal Cannula 2.0 08/17/18 20:49 96 Room Air 21 08/17/18 20:49 Room Air 21 08/17/18 20:48 98 20 99 Room Air 21 08/17/18 20:37 94 18 97 Room Air 21 08/17/18 20:00 96.9 95 18 149/81 (103) 95 08/17/18 16:00 97.7 89 18 142/77 (98) 94 08/17/18 15:47 93 20 98 Room Air 21 08/17/18 15:36 92 18 94 Room Air 21 08/17/18 12:00 97.8 95 18 146/77 (100) 94 08/17/18 11:12 97 18 98 Room Air 21 08/17/18 11:01 96 17 93 Room Air 21 08/17/18 09:00 Nasal Cannula 2.0 Nasal Cannula 2.0 08/17/18 08:30 147/80 12/14/18 08:30 96 147/80 08/17/18 08:00 97.5 96 18 147/80 (102) 94 Intake and Output 08/17/18 08/18/18 18:59 06:59 Intake Total 575 ml 220.0 ml Balance 575 ml 220.0 ml Intake Oral 575 ml IV Total 220.0 ml # Voids 3 3 General Appearance: WD/WN, other - awake, alert, responsive elderly Amharic speaking female, able to speak in full sentences, but wheezing HEENT: normocephalic, atraumatic, anicteric, mucous membranes moist Respiratory/Chest: rhonchi - scattered rhonchi , expiratory wheezing Cardiovascular: normal rate, no JVD Abdomen: normal bowel sounds, soft, non tender Extremities: no edema Skin: rash Neurologic/Psychiatric: no motor/sensory deficits, alert, responsive Microbiology Date/Time Source Procedure Growth Status 08/15/18 12:15 Blood Blood Culture - Preliminary NO GROWTH AFTER 48 HOURS Resulted 08/15/18 12:10 Blood Blood Culture - Preliminary NO GROWTH AFTER 48 HOURS Resulted 08/15/18 23:10 Sputum Gram Stain - Final Resulted 08/15/18 23:10 Sputum Sputum Culture - Preliminary Resulted Laboratory Tests 08/17/18 10:30: Sodium Level 138, Potassium Level 3.5, Chloride Level 100, Carbon Dioxide Level 29, Anion Gap 9, Blood Urea Nitrogen 25H, Creatinine 0.9, Estimat Glomerular Filtration Rate , Glucose Level 193H, Calcium Level 8.8, Phosphorus Level 3.0, Magnesium Level 1.9, Total Bilirubin 0.2, Aspartate Amino Transf (AST/SGOT) 12L , Alanine Aminotransferase (ALT/SGPT) 28, Alkaline Phosphatase 113, Total Protein 7.6, Albumin 3.6, Globulin 4.0, Albumin/Globulin Ratio 0.9L 08/18/18 05:00: Sodium Level [Pending], Potassium Level [Pending], Chloride Level [Pending], Carbon Dioxide Level [Pending], Blood Urea Nitrogen [Pending], Creatinine [ Pending], Estimat Glomerular Filtration Rate [Pending], Glucose Level [Pending] , Calcium Level [Pending], Phosphorus Level [Pending], Magnesium Level [Pending] , Total Bilirubin [Pending], Aspartate Amino Transf (AST/SGOT) [Pending], Alanine Aminotransferase (ALT/SGPT) [Pending], Alkaline Phosphatase [Pending], Total Protein [Pending], Albumin [Pending], Globulin [Pending], White Blood Count [Pending], Red Blood Count [Pending], Hemoglobin [Pending], Hematocrit [ Pending], Mean Corpuscular Volume [Pending], Mean Corpuscular Hemoglobin [ Pending], Mean Corpuscular Hemoglobin Concent [Pending], Red Cell Distribution Width [Pending], Platelet Count [Pending], Mean Platelet Volume [Pending], Neutrophils (%) (Auto) [Pending], Lymphocytes (%) (Auto) [Pending], Monocytes (% ) (Auto) [Pending], Eosinophils (%) (Auto) [Pending], Basophils (%) (Auto) [ Pending] Current Medications Medications (Trade) Dose Ordered Sig/Mecca Route PRN Reason Start Time Stop Time Status Last Admin Dose Admin Albuterol/ Ipratropium (Albuterol/ Ipratropium) 3 ml Q4HRT HHN 08/16/18 20:30 08/21/18 20:29 08/17/18 23:16 Amlodipine Besylate (Norvasc) 2.5 mg DAILY ORAL 08/17/18 09:00 09/15/18 09:09 08/17/18 08:30 Atorvastatin Calcium (Lipitor) 40 mg BEDTIME ORAL 08/16/18 21:00 09/15/18 20:59 08/17/18 20:54 Clopidogrel Bisulfate (Plavix) 75 mg DAILY ORAL 08/17/18 09:00 09/16/18 08:59 08/17/18 08:30 Dextrose (Dextrose 50%) 25 ml Q30M PRN IV Hypoglycemia 08/16/18 19:15 09/14/18 17:14 Dextrose (Dextrose 50%) 50 ml Q30M PRN IV Hypoglycemia 08/16/18 19:15 09/14/18 17:14 Fluoxetine HCl (PROzac) 20 mg DAILY ORAL 08/17/18 09:00 09/16/18 08:59 08/17/18 08:29 Guaifenesin (Mucinex ER) 600 mg TWICE A DAY ORAL 08/17/18 18:00 09/16/18 17:59 08/17/18 17:23 Heparin Sodium (Porcine) (Heparin 5000 units/ml) 5,000 units EVERY 12 HOURS SUBQ 08/16/18 21:00 09/14/18 20:59 08/17/18 20:56 Isosorbide Mononitrate (Imdur) 30 mg DAILY ORAL 08/17/18 09:00 09/15/18 09:31 08/17/18 08:30 Lidocaine (Xylocaine 1% MPF 5ml) 10 ml Q8HRT HHN 08/17/18 23:00 09/16/18 22:59 Loratadine (Claritin 10mg) 10 mg DAILY ORAL 08/17/18 14:54 09/16/18 14:53 08/17/18 15:44 Lorazepam (Ativan 2mg/ml 1ml) 0.5 mg Q4H PRN IV For Anxiety 08/16/18 20:30 08/22/18 20:29 Methylprednisolone Sodium Succinate (Solu-MEDROL) 120 mg EVERY 8 HOURS IV 08/17/18 22:00 09/14/18 17:59 08/18/18 05:20 Montelukast Sodium (Singulair) 10 mg QPM ORAL 08/17/18 16:30 09/16/18 16:29 08/17/18 17:23 Morphine Sulfate (Morphine Sulfate) 2 mg Q4H PRN IVP severe pain 7-10 08/16/18 20:30 08/22/18 20:29 Nitroglycerin (Ntg) 0.4 mg Q5M X 3 DOSES PRN SL Prn Chest Pain 08/16/18 19:00 09/14/18 17:14 Ondansetron HCl (Zofran) 4 mg Q6H PRN IVP Nausea & Vomiting 08/16/18 20:30 09/14/18 20:29 08/17/18 01:11 Pantoprazole (Protonix) 40 mg DAILY ORAL 08/17/18 09:00 09/16/18 08:59 08/17/18 08:31 Phenytoin (Dilantin) 100 mg DAILY ORAL 08/17/18 09:00 09/15/18 09:29 08/17/18 08:31 Phenytoin (Dilantin) 200 mg QHS ORAL 08/16/18 21:00 09/15/18 20:59 08/17/18 20:55 Piperacillin Sod/ Tazobactam Sod 3.375 gm/Dextrose 110 ml @ 27.5 mls/hr Q8H IVPB 08/17/18 02:00 08/22/18 17:59 08/18/18 02:05 Pregabalin (Lyrica) 50 mg Q12HR ORAL 08/16/18 21:00 09/15/18 09:09 08/17/18 20:54 Promethazine HCl/ Codeine (Phenergan with Codeine) 5 ml Q6H PRN ORAL cough 08/16/18 20:30 09/14/18 20:29 08/17/18 22:18 Temazepam (Restoril) 15 mg HSPRN PRN ORAL Insomnia 08/16/18 20:30 08/23/18 20:29 Theophylline (Fabrice-Dur) 100 mg EVERY 12 HOURS ORAL 08/16/18 21:00 09/14/18 20:59 08/17/18 20:54 Jessica Landry NP Aug 18, 2018 07:07
[2018-08-18] MEDS: Lidocaine 1% MPF 10mg/ml 5ml HHN SCH ×3 (07:42→23:00)
[2018-08-18 07:55] LABS: ALANINE AMINOTRANSFERASE 35 U/L (12-78); ALBUMIN 3.5 G/DL (3.4-5.0); ALBUMIN/GLOBULIN RATIO 0.8 (1.0-2.7); ALKALINE PHOSPHATASE 106 U/L (46-116); ANION GAP 9 mmol/L (5-15); ASPARTATE AMINO TRANSFERASE 13 U/L (15-37); BILIRUBIN,TOTAL 0.3 MG/DL (0.2-1.0); BLOOD UREA NITROGEN 25 mg/dL (7-18); CALCIUM 8.7 MG/DL (8.5-10.1); CARBON DIOXIDE 27 MMOL/L (21-32); CHLORIDE 105 MMOL/L (98-107); CREATININE 0.9 MG/DL (0.55-1.30); PHOSPHORUS 2.9 MG/DL (2.5-4.9); POTASSIUM 4.3 MMOL/L (3.5-5.1); SODIUM 141 MMOL/L (136-145)
[2018-08-18 07:58] LABS: HEMATOCRIT 36.7 % (37.0-47.0); HEMOGLOBIN 12.7 G/DL (12.0-16.0); MEAN CORPUSCULAR VOLUME 90 FL (80-99); PLATELET COUNT 236 K/UL (150-450); RED BLOOD COUNT 4.06 M/UL (4.20-5.40); RED CELL DISTRIBUTION WIDTH 12.8 % (11.6-14.8); WHITE BLOOD COUNT 11.4 K/UL (4.8-10.8)
[2018-08-18 08:00] VITALS: BP 163/81
[2018-08-18] MEDS: guaiFENesin ER 600mg tab ORAL SCH ×2 (08:32→17:17)
[2018-08-18] MEDS: Imdur 30mg tab ORAL SCH (08:32)
[2018-08-18] MEDS: Lyrica 50mg cap ORAL SCH ×2 (08:32→21:46)
[2018-08-18] MEDS: Theophylline ER 100mg ORAL SCH ×2 (08:32→21:45)
[2018-08-18] MEDS: Phenytoin 100mg cap ORAL SCH ×2 (08:33→21:44)
[2018-08-18] MEDS: Heparin 5000 units/ml inj SUBQ SCH ×2 (08:44→21:53)
[2018-08-18] MEDS: Promethazine/Codeine 5ml UD ORAL PRN ×2 (10:30→17:17)
[2018-08-18 12:00] VITALS: BP 149/81
--- NOTE | 2018-08-18 14:41 | Internal Med Progress Note ---
Subjective Physician Name Shlomo Garcia Attending Physician Shlomo Garcia MD Current Medications Medications (Trade) Dose Ordered Sig/Mecca Route PRN Reason Start Time Stop Time Status Last Admin Dose Admin Albuterol/ Ipratropium (Albuterol/ Ipratropium) 3 ml Q4HRT N 08/16/18 20:30 08/21/18 20:29 08/18/18 10:13 Amlodipine Besylate (Norvasc) 2.5 mg DAILY ORAL 08/17/18 09:00 09/15/18 09:09 08/18/18 08:31 Atorvastatin Calcium (Lipitor) 40 mg BEDTIME ORAL 08/16/18 21:00 09/15/18 20:59 08/17/18 20:54 Clopidogrel Bisulfate (Plavix) 75 mg DAILY ORAL 08/17/18 09:00 09/16/18 08:59 08/18/18 08:32 Dextrose (Dextrose 50%) 25 ml Q30M PRN IV Hypoglycemia 08/16/18 19:15 09/14/18 17:14 Dextrose (Dextrose 50%) 50 ml Q30M PRN IV Hypoglycemia 08/16/18 19:15 09/14/18 17:14 Fluoxetine HCl (PROzac) 20 mg DAILY ORAL 08/17/18 09:00 09/16/18 08:59 08/18/18 08:32 Guaifenesin (Mucinex ER) 600 mg TWICE A DAY ORAL 08/17/18 18:00 09/16/18 17:59 08/18/18 08:32 Heparin Sodium (Porcine) (Heparin 5000 units/ml) 5,000 units EVERY 12 HOURS SUBQ 08/16/18 21:00 09/14/18 20:59 08/18/18 08:44 Isosorbide Mononitrate (Imdur) 30 mg DAILY ORAL 08/17/18 09:00 09/15/18 09:31 08/18/18 08:32 Lidocaine (Xylocaine 1% MPF 5ml) 10 ml Q8HRT N 08/17/18 23:00 09/16/18 22:59 Loratadine (Claritin 10mg) 10 mg DAILY ORAL 08/17/18 14:54 09/16/18 14:53 08/18/18 08:32 Lorazepam (Ativan 2mg/ml 1ml) 0.5 mg Q4H PRN IV For Anxiety 08/16/18 20:30 08/22/18 20:29 Methylprednisolone Sodium Succinate (Solu-MEDROL) 80 mg EVERY 8 HOURS IV 08/18/18 22:00 09/14/18 17:59 Montelukast Sodium (Singulair) 10 mg QPM ORAL 08/17/18 16:30 09/16/18 16:29 08/17/18 17:23 Morphine Sulfate (Morphine Sulfate) 2 mg Q4H PRN IVP severe pain 7-10 08/16/18 20:30 08/22/18 20:29 Nitroglycerin (Ntg) 0.4 mg Q5M X 3 DOSES PRN SL Prn Chest Pain 08/16/18 19:00 09/14/18 17:14 Ondansetron HCl (Zofran) 4 mg Q6H PRN IVP Nausea & Vomiting 08/16/18 20:30 09/14/18 20:29 08/17/18 01:11 Pantoprazole (Protonix) 40 mg DAILY ORAL 08/17/18 09:00 09/16/18 08:59 08/18/18 08:32 Phenytoin (Dilantin) 100 mg DAILY ORAL 08/17/18 09:00 09/15/18 09:29 08/18/18 08:33 Phenytoin (Dilantin) 200 mg QHS ORAL 08/16/18 21:00 09/15/18 20:59 08/17/18 20:55 Piperacillin Sod/ Tazobactam Sod 3.375 gm/Dextrose 110 ml @ 27.5 mls/hr Q8H IVPB 08/17/18 02:00 08/22/18 17:59 08/18/18 10:25 Pregabalin (Lyrica) 50 mg Q12HR ORAL 08/16/18 21:00 09/15/18 09:09 08/18/18 08:32 Promethazine HCl/ Codeine (Phenergan with Codeine) 5 ml Q6H PRN ORAL cough 08/16/18 20:30 09/14/18 20:29 08/18/18 10:30 Temazepam (Restoril) 15 mg HSPRN PRN ORAL Insomnia 08/16/18 20:30 08/23/18 20:29 Theophylline (Fabrice-Dur) 100 mg EVERY 12 HOURS ORAL 08/16/18 21:00 09/14/18 20:59 08/18/18 08:32 Allergies: Coded Allergies: VANCOMYCIN (Verified Allergy, Unknown, red eyes, itchying, 10/10/16) Uncoded Allergies: Canned Food (Allergy, Unknown, 03/22/18) Nausea/Vomitting/Indigestion Subjective awake, alert, responsive, less SOB, less dry cough, No chest wall pain Objective Last Vital Signs Date Time Temp Pulse Resp B/P (MAP) Pulse Ox O2 Delivery O2 Flow Rate FiO2 08/18/18 12:00 98.0 96 18 149/81 (103) 96 08/18/18 10:24 Room Air 21 08/18/18 09:00 2.0 2.0 Laboratory Tests Test 08/18/18 05:00 White Blood Count 11.4 K/UL (4.8-10.8) H Red Blood Count 4.06 M/UL (4.20-5.40) L Hemoglobin 12.7 G/DL (12.0-16.0) Hematocrit 36.7 % (37.0-47.0) L Mean Corpuscular Volume 90 FL (80-99) Mean Corpuscular Hemoglobin 31.2 PG (27.0-31.0) H Mean Corpuscular Hemoglobin Concent 34.6 G/DL (32.0-36.0) Red Cell Distribution Width 12.8 % (11.6-14.8) Platelet Count 236 K/UL (150-450) Mean Platelet Volume 6.7 FL (6.5-10.1) Neutrophils (%) (Auto) % (45.0-75.0) Lymphocytes (%) (Auto) % (20.0-45.0) Monocytes (%) (Auto) % (1.0-10.0) Eosinophils (%) (Auto) % (0.0-3.0) Basophils (%) (Auto) % (0.0-2.0) Differential Total Cells Counted 100 Neutrophils % (Manual) 88 % (45-75) H Lymphocytes % (Manual) 8 % (20-45) L Monocytes % (Manual) 4 % (1-10) Eosinophils % (Manual) 0 % (0-3) Basophils % (Manual) 0 % (0-2) Band Neutrophils 0 % (0-8) Platelet Estimate Adequate Platelet Morphology Normal Red Blood Cell Morphology Normal Sodium Level 141 MMOL/L (136-145) Potassium Level 4.3 MMOL/L (3.5-5.1) Chloride Level 105 MMOL/L (98-107) Carbon Dioxide Level 27 MMOL/L (21-32) Anion Gap 9 mmol/L (5-15) Blood Urea Nitrogen 25 mg/dL (7-18) H Creatinine 0.9 MG/DL (0.55-1.30) Estimat Glomerular Filtration Rate mL/min (>60) Glucose Level 146 MG/DL (74-106) H Calcium Level 8.7 MG/DL (8.5-10.1) Phosphorus Level 2.9 MG/DL (2.5-4.9) Magnesium Level 2.2 MG/DL (1.8-2.4) Total Bilirubin 0.3 MG/DL (0.2-1.0) Aspartate Amino Transf (AST/SGOT) 13 U/L (15-37) L Alanine Aminotransferase (ALT/SGPT) 35 U/L (12-78) Alkaline Phosphatase 106 U/L (46-116) Total Protein 7.8 G/DL (6.4-8.2) Albumin 3.5 G/DL (3.4-5.0) Globulin 4.3 g/dL Albumin/Globulin Ratio 0.8 (1.0-2.7) L Microbiology Date/Time Source Procedure Growth Status 08/15/18 23:10 Sputum Gram Stain - Final Complete 08/15/18 23:10 Sputum Sputum Culture - Final NORMAL UPPER RESPIRATORY SRUTHI PRESENT Complete Intake and Output 08/17/18 08/18/18 19:00 07:00 Intake Total 602.5 ml 192.5 ml Balance 602.5 ml 192.5 ml Intake Oral 575 ml IV Total 27.5 ml 192.5 ml # Voids 3 3 Objective General: No acute distress, awake and alert HEENT: NCAT, sclera anicteric, PERRL, EOMI. Neck: Supple, no significant jugular venous distention, Lungs: Good inspiratory effort, Decrease breath sound on bases, + Wheeze / Coarse breath sound, No Rales. Heart: Regular rate and rhythm, normal S1/S2, no murmurs. Abdomen: soft, nontender, nondistended. Normoactive bowel sounds. / Rectal: Refused and deferred. Extremities: No Cyanosis , clubbing or edema. Neuro: A&O x 3, Able to move all extremities Skin: warm, no rashes or lesions Psych: Normal mood and affect Assessment/Plan Assessment/Plan 1. Shortness of breath with acute hypemia respiratory failure.. 2. Pleuritic chest pain. 3. Acute exacerbation of asthma. 4. Cerebrovascular disease. 5. Hypertension. 6. Hypercholesterolemia. 7. Gastroesophageal reflux disease. 8. History of seizure disorder. 9. Coronary artery disease. Plan: Neb Tx Abx: Zosyn Solumedral IV Pain control Full code Heparin SQ On Claritin and Mucinex DC Home in AM Shlomo Garcia MD Aug 18, 2018 14:41
[2018-08-18 16:00] VITALS: BP 155/82
[2018-08-18] MEDS: Montelukast 10mg tablet ORAL SCH (17:17)
[2018-08-18 20:00] VITALS: BP 150/84
[2018-08-18] MEDS: Atorvastatin 20mg tab ORAL SCH (21:45)
[2018-08-19] VITALS: BP 146/84
[2018-08-19] MEDS: Piperacillin/Tazobactam 3.375 GM in D5W 110 ML IVPB SCH ×2 (02:34→10:34)
[2018-08-19] MEDS: Promethazine/Codeine 5ml UD ORAL PRN ×2 (02:47→08:26)
[2018-08-19] MEDS: Albuterol/Ipratropium 3ml neb HHN SCH ×3 (03:00→11:26)
[2018-08-19 04:00] VITALS: BP 156/89
[2018-08-19] MEDS: Solu-MEDROL 125mg Inj IV SCH (05:25)
[2018-08-19 07:29] LABS: HEMATOCRIT 37.9 % (37.0-47.0); MEAN CORPUSCULAR VOLUME 90 FL (80-99); PLATELET COUNT 241 K/UL (150-450); RED BLOOD COUNT 4.21 M/UL (4.20-5.40); RED CELL DISTRIBUTION WIDTH 12.4 % (11.6-14.8); WHITE BLOOD COUNT 10.6 K/UL (4.8-10.8)
[2018-08-19] MEDS: Lidocaine 1% MPF 10mg/ml 5ml HHN SCH (07:33)
[2018-08-19 08:00] VITALS: BP 161/79
[2018-08-19 08:03] LABS: ANION GAP 11 mmol/L (5-15); BLOOD UREA NITROGEN 17 mg/dL (7-18); CALCIUM 8.5 MG/DL (8.5-10.1); CARBON DIOXIDE 27 MMOL/L (21-32); CHLORIDE 103 MMOL/L (98-107); CREATININE 0.7 MG/DL (0.55-1.30); POTASSIUM 3.6 MMOL/L (3.5-5.1); SODIUM 141 MMOL/L (136-145)
[2018-08-19] MEDS: guaiFENesin ER 600mg tab ORAL SCH (08:16)
[2018-08-19] MEDS: Phenytoin 100mg cap ORAL SCH (08:16)
[2018-08-19] MEDS: Theophylline ER 100mg ORAL SCH (08:16)
[2018-08-19] MEDS: Lyrica 50mg cap ORAL SCH (08:17)
[2018-08-19] MEDS: Imdur 30mg tab ORAL SCH (08:17)
[2018-08-19] MEDS: Heparin 5000 units/ml inj SUBQ SCH (08:21)
--- NOTE | 2018-08-19 08:22 | Pulmonology Progress Note ---
Assessment/Plan Assessment/Plan ASSESSMENT acute resp failure acute asthma exacerbation HTN seizure disorder vascular dementia hypokalemia anxiety disorder PLAN OF CARE MS floor O2 HHN IV steroids and taper Lidocaine for persistent cough empiric abx sputum cx negative blood cx negative CXR no acute CP pathology trial of theophylline a/tussive prn BP management with CCB continue a/PLT therapy with Plavix and statin DVT, GI prophylaxis seizure precautions, continue Dilantin fup with psych recs case discussed and evaluated by supervising physician Subjective Allergies: Coded Allergies: VANCOMYCIN (Verified Allergy, Unknown, red eyes, itchying, 10/10/16) Uncoded Allergies: Canned Food (Allergy, Unknown, 03/22/18) Nausea/Vomitting/Indigestion Subjective still wheezing and coughing no leukocytosis, no fevers Objective Last 24 Hour Vital Signs Date Time Temp Pulse Resp B/P (MAP) Pulse Ox O2 Delivery O2 Flow Rate FiO2 08/19/18 07:43 Nasal Cannula 28 08/19/18 07:42 Nasal Cannula 2.0 08/19/18 07:41 96 Nasal Cannula 2.0 28 08/19/18 07:40 Nasal Cannula 2.0 28 08/19/18 04:00 97.8 80 20 156/89 (111) 96 08/19/18 03:22 Nasal Cannula 2.0 28 08/19/18 03:22 Nasal Cannula 2.0 28 08/19/18 00:00 97.8 81 19 146/84 (104) 94 08/18/18 23:00 Nasal Cannula 2.0 28 08/18/18 23:00 Nasal Cannula 2.0 28 08/18/18 20:00 97.0 89 19 150/84 (106) 97 08/18/18 19:46 Nasal Cannula 2.0 Nasal Cannula 2.0 08/18/18 19:45 83 18 99 Nasal Cannula 2.0 28 08/18/18 19:33 Room Air 21 08/18/18 19:33 88 18 94 Room Air 21 08/18/18 19:33 94 Room Air 21 08/18/18 16:00 99.0 92 18 155/82 (106) 97 08/18/18 15:27 Room Air 08/18/18 15:26 Room Air 08/18/18 12:00 98.0 96 18 149/81 (103) 96 08/18/18 10:24 80 18 98 Room Air 21 08/18/18 10:13 88 20 95 Room Air 21 08/18/18 09:00 Nasal Cannula 2.0 Nasal Cannula 2.0 08/18/18 08:32 163/81 08/18/18 08:31 95 163/81 Intake and Output 08/18/18 08/19/18 19:00 07:00 Intake Total 737.5 ml 565.0 ml Balance 737.5 ml 565.0 ml Intake Oral 600 ml 400 ml IV Total 137.5 ml 165.0 ml # Voids 3 2 Objective General Appearance: WD/WN, other - awake, alert, responsive elderly Spanish speaking female, able to speak in full sentences, but wheezing HEENT: normocephalic, atraumatic, anicteric, mucous membranes moist Respiratory/Chest: few scattered rhonchi , expiratory wheezes Cardiovascular: normal rate, no JVD Abdomen: normal bowel sounds, soft, non tender Extremities: no edema Skin: rash Neurologic/Psychiatric: no motor/sensory deficits, alert, responsive Laboratory Tests 08/19/18 05:25: White Blood Count 10.6, Red Blood Count 4.21, Hemoglobin 13.0, Hematocrit 37.9, Mean Corpuscular Volume 90, Mean Corpuscular Hemoglobin 31.0, Mean Corpuscular Hemoglobin Concent 34.4, Red Cell Distribution Width 12.4, Platelet Count 241, Mean Platelet Volume 7.2, Neutrophils (%) (Auto) , Lymphocytes (%) (Auto) , Monocytes (%) (Auto) , Eosinophils (%) (Auto) , Basophils (%) (Auto) , Neutrophils % (Manual) [Pending], Lymphocytes % (Manual) [Pending], Platelet Estimate [Pending], Platelet Morphology [Pending], Sodium Level 141, Potassium Level 3.6, Chloride Level 103, Carbon Dioxide Level 27, Anion Gap 11, Blood Urea Nitrogen 17, Creatinine 0.7, Estimat Glomerular Filtration Rate , Glucose Level 159H, Calcium Level 8.5 Current Medications Medications (Trade) Dose Ordered Sig/[place] Route PRN Reason Start Time Stop Time Status Last Admin Dose Admin Albuterol/ Ipratropium (Albuterol/ Ipratropium) 3 ml Q4HRT HHN 08/16/18 20:30 08/21/18 20:29 08/18/18 19:33 Amlodipine Besylate (Norvasc) 2.5 mg DAILY ORAL 08/17/18 09:00 09/15/18 09:09 08/18/18 08:31 Atorvastatin Calcium (Lipitor) 40 mg BEDTIME ORAL 08/16/18 21:00 09/15/18 20:59 08/18/18 21:45 Clopidogrel Bisulfate (Plavix) 75 mg DAILY ORAL 08/17/18 09:00 09/16/18 08:59 08/18/18 08:32 Dextrose (Dextrose 50%) 25 ml Q30M PRN IV Hypoglycemia 08/16/18 19:15 09/14/18 17:14 Dextrose (Dextrose 50%) 50 ml Q30M PRN IV Hypoglycemia 08/16/18 19:15 09/14/18 17:14 Fluoxetine HCl (PROzac) 20 mg DAILY ORAL 08/17/18 09:00 09/16/18 08:59 08/18/18 08:32 Guaifenesin (Mucinex ER) 600 mg TWICE A DAY ORAL 08/17/18 18:00 09/16/18 17:59 08/18/18 17:17 Heparin Sodium (Porcine) (Heparin 5000 units/ml) 5,000 units EVERY 12 HOURS SUBQ 08/16/18 21:00 09/14/18 20:59 08/18/18 21:53 Isosorbide Mononitrate (Imdur) 30 mg DAILY ORAL 08/17/18 09:00 09/15/18 09:31 08/18/18 08:32 Lidocaine (Xylocaine 1% MPF 5ml) 10 ml Q8HRT HHN 08/17/18 23:00 09/16/18 22:59 Loratadine (Claritin 10mg) 10 mg DAILY ORAL 08/17/18 14:54 09/16/18 14:53 08/18/18 08:32 Lorazepam (Ativan 2mg/ml 1ml) 0.5 mg Q4H PRN IV For Anxiety 08/16/18 20:30 08/22/18 20:29 Methylprednisolone Sodium Succinate (Solu-MEDROL) 80 mg EVERY 8 HOURS IV 08/18/18 22:00 09/14/18 17:59 08/19/18 05:25 Montelukast Sodium (Singulair) 10 mg QPM ORAL 08/17/18 16:30 09/16/18 16:29 08/18/18 17:17 Morphine Sulfate (Morphine Sulfate) 2 mg Q4H PRN IVP severe pain 7-10 08/16/18 20:30 08/22/18 20:29 Nitroglycerin (Ntg) 0.4 mg Q5M X 3 DOSES PRN SL Prn Chest Pain 08/16/18 19:00 09/14/18 17:14 Ondansetron HCl (Zofran) 4 mg Q6H PRN IVP Nausea & Vomiting 08/16/18 20:30 09/14/18 20:29 08/17/18 01:11 Pantoprazole (Protonix) 40 mg DAILY ORAL 08/17/18 09:00 09/16/18 08:59 08/18/18 08:32 Phenytoin (Dilantin) 100 mg DAILY ORAL 08/17/18 09:00 09/15/18 09:29 08/18/18 08:33 Phenytoin (Dilantin) 200 mg QHS ORAL 08/16/18 21:00 09/15/18 20:59 08/18/18 21:44 Piperacillin Sod/ Tazobactam Sod 3.375 gm/Dextrose 110 ml @ 27.5 mls/hr Q8H IVPB 08/17/18 02:00 08/22/18 17:59 08/19/18 02:34 Pregabalin (Lyrica) 50 mg Q12HR ORAL 08/16/18 21:00 09/15/18 09:09 08/18/18 21:46 Promethazine HCl/ Codeine (Phenergan with Codeine) 5 ml Q6H PRN ORAL cough 08/16/18 20:30 09/14/18 20:29 08/19/18 02:47 Temazepam (Restoril) 15 mg HSPRN PRN ORAL Insomnia 08/16/18 20:30 08/23/18 20:29 Theophylline (Fabrice-Dur) 100 mg EVERY 12 HOURS ORAL 08/16/18 21:00 09/14/18 20:59 08/18/18 21:45 Jessica Landry NP Aug 19, 2018 08:22
[2018-08-19 12:00] VITALS: BP 140/81
[2018-08-19] MEDS ORDERED: THEOPHYLLINE A100 MG ORAL (12:22)
[2018-08-19] MEDS ORDERED: DOXYCYCLINE HY100 M6 PO (12:22)
--- NOTE | 2018-08-19 12:24 | Internal Med Progress Note ---
Subjective Physician Name Shlomo Garcia Attending Physician Shlomo Garcia MD Current Medications Medications (Trade) Dose Ordered Sig/[place] Route PRN Reason Start Time Stop Time Status Last Admin Dose Admin Albuterol/ Ipratropium (Albuterol/ Ipratropium) 3 ml Q4HRT N 08/16/18 20:30 08/21/18 20:29 08/19/18 11:26 Amlodipine Besylate (Norvasc) 2.5 mg DAILY ORAL 08/17/18 09:00 09/15/18 09:09 08/19/18 08:16 Atorvastatin Calcium (Lipitor) 40 mg BEDTIME ORAL 08/16/18 21:00 09/15/18 20:59 08/18/18 21:45 Clopidogrel Bisulfate (Plavix) 75 mg DAILY ORAL 08/17/18 09:00 09/16/18 08:59 08/19/18 08:16 Dextrose (Dextrose 50%) 25 ml Q30M PRN IV Hypoglycemia 08/16/18 19:15 09/14/18 17:14 Dextrose (Dextrose 50%) 50 ml Q30M PRN IV Hypoglycemia 08/16/18 19:15 09/14/18 17:14 Fluoxetine HCl (PROzac) 20 mg DAILY ORAL 08/17/18 09:00 09/16/18 08:59 08/19/18 08:17 Guaifenesin (Mucinex ER) 600 mg TWICE A DAY ORAL 08/17/18 18:00 09/16/18 17:59 08/19/18 08:16 Heparin Sodium (Porcine) (Heparin 5000 units/ml) 5,000 units EVERY 12 HOURS SUBQ 08/16/18 21:00 09/14/18 20:59 08/19/18 08:21 Isosorbide Mononitrate (Imdur) 30 mg DAILY ORAL 08/17/18 09:00 09/15/18 09:31 08/19/18 08:17 Lidocaine (Xylocaine 1% MPF 5ml) 10 ml Q8HRT N 08/17/18 23:00 09/16/18 22:59 Loratadine (Claritin 10mg) 10 mg DAILY ORAL 08/17/18 14:54 09/16/18 14:53 08/19/18 08:16 Lorazepam (Ativan 2mg/ml 1ml) 0.5 mg Q4H PRN IV For Anxiety 08/16/18 20:30 08/22/18 20:29 Methylprednisolone Sodium Succinate (Solu-MEDROL) 60 mg EVERY 8 HOURS IV 08/19/18 14:00 09/14/18 17:59 Montelukast Sodium (Singulair) 10 mg QPM ORAL 08/17/18 16:30 09/16/18 16:29 08/18/18 17:17 Morphine Sulfate (Morphine Sulfate) 2 mg Q4H PRN IVP severe pain 7-10 08/16/18 20:30 08/22/18 20:29 Nitroglycerin (Ntg) 0.4 mg Q5M X 3 DOSES PRN SL Prn Chest Pain 08/16/18 19:00 09/14/18 17:14 Ondansetron HCl (Zofran) 4 mg Q6H PRN IVP Nausea & Vomiting 08/16/18 20:30 09/14/18 20:29 08/17/18 01:11 Pantoprazole (Protonix) 40 mg DAILY ORAL 08/17/18 09:00 09/16/18 08:59 08/19/18 08:16 Phenytoin (Dilantin) 100 mg DAILY ORAL 08/17/18 09:00 09/15/18 09:29 08/19/18 08:16 Phenytoin (Dilantin) 200 mg QHS ORAL 08/16/18 21:00 09/15/18 20:59 08/18/18 21:44 Piperacillin Sod/ Tazobactam Sod 3.375 gm/Dextrose 110 ml @ 27.5 mls/hr Q8H IVPB 08/17/18 02:00 08/22/18 17:59 08/19/18 10:34 Pregabalin (Lyrica) 50 mg Q12HR ORAL 08/16/18 21:00 09/15/18 09:09 08/19/18 08:17 Promethazine HCl/ Codeine (Phenergan with Codeine) 5 ml Q6H PRN ORAL cough 08/16/18 20:30 09/14/18 20:29 08/19/18 08:26 Temazepam (Restoril) 15 mg HSPRN PRN ORAL Insomnia 08/16/18 20:30 08/23/18 20:29 Theophylline (Fabrice-Dur) 100 mg EVERY 12 HOURS ORAL 08/16/18 21:00 09/14/18 20:59 08/19/18 08:16 Allergies: Coded Allergies: VANCOMYCIN (Verified Allergy, Unknown, red eyes, itchying, 10/10/16) Uncoded Allergies: Canned Food (Allergy, Unknown, 03/22/18) Nausea/Vomitting/Indigestion Subjective awake, alert, responsive, less SOB, less dry cough, C/O itching Objective Last Vital Signs Date Time Temp Pulse Resp B/P (MAP) Pulse Ox O2 Delivery O2 Flow Rate FiO2 08/19/18 11:40 73 18 100 Nasal Cannula 2.0 28 08/19/18 08:17 161/79 08/19/18 08:00 97.8 Laboratory Tests Test 08/19/18 05:25 White Blood Count 10.6 K/UL (4.8-10.8) Red Blood Count 4.21 M/UL (4.20-5.40) Hemoglobin 13.0 G/DL (12.0-16.0) Hematocrit 37.9 % (37.0-47.0) Mean Corpuscular Volume 90 FL (80-99) Mean Corpuscular Hemoglobin 31.0 PG (27.0-31.0) Mean Corpuscular Hemoglobin Concent 34.4 G/DL (32.0-36.0) Red Cell Distribution Width 12.4 % (11.6-14.8) Platelet Count 241 K/UL (150-450) Mean Platelet Volume 7.2 FL (6.5-10.1) Neutrophils (%) (Auto) % (45.0-75.0) Lymphocytes (%) (Auto) % (20.0-45.0) Monocytes (%) (Auto) % (1.0-10.0) Eosinophils (%) (Auto) % (0.0-3.0) Basophils (%) (Auto) % (0.0-2.0) Differential Total Cells Counted 100 Neutrophils % (Manual) 86 % (45-75) H Lymphocytes % (Manual) 10 % (20-45) L Monocytes % (Manual) 4 % (1-10) Eosinophils % (Manual) 0 % (0-3) Basophils % (Manual) 0 % (0-2) Band Neutrophils 0 % (0-8) Platelet Estimate Adequate Platelet Morphology Normal Red Blood Cell Morphology Normal Sodium Level 141 MMOL/L (136-145) Potassium Level 3.6 MMOL/L (3.5-5.1) Chloride Level 103 MMOL/L (98-107) Carbon Dioxide Level 27 MMOL/L (21-32) Anion Gap 11 mmol/L (5-15) Blood Urea Nitrogen 17 mg/dL (7-18) Creatinine 0.7 MG/DL (0.55-1.30) Estimat Glomerular Filtration Rate mL/min (>60) Glucose Level 159 MG/DL (74-106) H Calcium Level 8.5 MG/DL (8.5-10.1) Intake and Output 08/18/18 08/19/18 18:59 06:59 Intake Total 737.5 ml 565.0 ml Balance 737.5 ml 565.0 ml Intake Oral 600 ml 400 ml IV Total 137.5 ml 165.0 ml # Voids 3 2 Objective General: No acute distress, awake and alert HEENT: NCAT, sclera anicteric, PERRL, EOMI. Neck: Supple, no significant jugular venous distention, Lungs: Good inspiratory effort, Decrease breath sound on bases, less Wheeze / no more Coarse breath sound, No Rales. Heart: Regular rate and rhythm, normal S1/S2, no murmurs. Abdomen: soft, nontender, nondistended. Normoactive bowel sounds. / Rectal: Refused and deferred. Extremities: No Cyanosis , clubbing or edema. Neuro: A&O x 3, Able to move all extremities Skin: warm, no rashes or lesions Psych: Normal mood and affect Assessment/Plan Assessment/Plan 1. Shortness of breath with acute hypemia respiratory failure.. 2. Pleuritic chest pain. 3. Acute exacerbation of asthma. 4. Cerebrovascular disease. 5. Hypertension. 6. Hypercholesterolemia. 7. Gastroesophageal reflux disease. 8. History of seizure disorder. 9. Coronary artery disease. Plan: Neb Tx Abx: DC Zosyn, start Doxycycline Solumedral IV switch to Medrol dose pack Pain control Full code Heparin SQ On Claritin and Mucinex DC Home today Shlomo Garcia MD Aug 19, 2018 12:24
[2018-08-19] MEDS ORDERED: Solu-MEDROL 125mg Inj IV SCH (14:00)
--- NOTE | 2018-08-21 09:07 | Discharge Summary ---
Discharge Summary Discharge Summary _ Primary DATE OF ADMISSION: 08/15/2018 DATE OF DISCHARGE: 08/19/2018 DISCHARGED BY: Dr. Garcia REASON FOR ADMISSION: 83 years old female with past medical history of hypertension, asthma, CVA/TIA, seizure disorder, presented to emergency department for evaluation of shortness of breath. Per paramedics, patient was wheezing and started on breathing treatment with bronchodilator. In the emergency department the patient reported being very short of breath. She reported using her inhaler at home without significant relief. She denied chest pain. She denies fever chills. She denied cough. Upon evaluation patient was tachypneic and wheezing. Patient required supplemental oxygen to maintain proper oxygenation. Laboratory workup revealed no leukocytosis, stable hemoglobin and hematocrit. Troponin was negative. EKG revealed sinus rhythm, no acute ischemic changes. Potassium 3.0. Glucose 189. Chest x-ray revealed small right pleural effusion. Cardiomegaly. Hiatal hernia. No evidence of acute cardiopulmonary pathology. Patient admitted with diagnoses of respiratory failure, acute asthma exacerbation, hypertension, seizure disorder, vascular dementia, anxiety. CONSULTANTS: pulmonary Dr. Juares psychiatrist the [facility] COURSE: Patient admitted to medical surgical floor. Reshipping Clerk closely followed. Supplemental oxygen provided to keep pulse oximetry above 90%. Pulmonary toilet provided with nebulizing therapy around the clock and as needed. Patient was started on intravenous steroids with gradual tapering down. Patient was started on empiric antibiotic. Sputum culture was negative. Blood culture were negative. Lidocaine inhalation provided for persistent cough. Trial of theophylline started Antitussive provided as needed. Potassium was replaced. Magnesium was stable. Renal parameters and electrolytes were closely monitored. Blood pressure was managed with calcium channel steph. Antiplatelet therapy with Plavix and statin were continued. DVT and GI prophylaxis provided. Pain management was addressed as needed. Seizure precaution maintained. Dilantin continued. No evidence of seizure activity while in the hospital. Psychiatrist seen and evaluated the patietn, and started patient on Prozac. Reality orientation supportive therapy provided. Patient was slowly improving . Patietn was stable for discharge home with home health services. IV steroids changed to Medrol Dosepak upon discharge. FINAL DIAGNOSES: Acute respiratory failure Acute exacerbation of asthma Pleuritic chest pain Hypertension Hypercholesteremia GERD History of seizure disorder Hypokalemia Vascular dementia Anxiety disorder Major depressive disorder DISCHARGE MEDICATIONS: See Medication Reconciliation list. DISCHARGE INSTRUCTIONS: Patient was discharged home with home health services. Follow up with primary care provider in one week. Jessica Landry NP Aug 21, 2018 09:07
== END 2018-08-19 14:30 | disposition home or self-care (01) | DRG 202 ==
LOC: EMR 12:25 → 2E 12:32 → EDBEDREQ 13:03 → 2E 08-16 05:10 → 4E 08-16 18:59
DX: J45.901 Unspecified asthma with (acute) exacerbation (principal); J96.01 Acute respiratory failure with hypoxia; E78.00 Pure hypercholesterolemia, unspecified; K21.9 Gastro-esophageal reflux disease without esophagitis; Z86.73 Personal history of transient ischemic attack (TIA), and cerebral infarction without residual deficits; G40.909 Epilepsy, unspecified, not intractable, without status epilepticus; I10 Essential (primary) hypertension; I25.10 Atherosclerotic heart disease of native coronary artery without angina pectoris; Z95.5 Presence of coronary angioplasty implant and graft; Z88.1 Allergy status to other antibiotic agents; Z60.2 Problems related to living alone; R07.81 Pleurodynia; E87.6 Hypokalemia; F01.50 Vascular dementia, unspecified severity, without behavioral disturbance, psychotic disturbance, mood disturbance, and anxiety; F41.9 Anxiety disorder, unspecified
CPT/HCPCS: 36415; 71045; 80048; 80053; 80185; 82550; 82553; 82962; 83690; 83735; 83880; 84100; 84484; 85007; 85025; 87040; 87070; 87205; 93005; 94640; 94664; 94760; 96374; 99291; J2405; J7620; J8499

== ENCOUNTER 2018-09-18 15:31 | Inpatient (IN) | payer MEDICARE, MEDICAID ==
[~2018-09-18] VITALS: Ht 165.1 cm; Wt 62.6 kg
--- NOTE | 2018-09-18 15:25 | NUR ---
RESPIRATORY NOTE: Patient came into ER for respiratory distress. Audible wheezing was heard and use of accessory muscle. Patient was put on BIPAP 12/5, back up rate 16, FiO2: 100%. Tape is in place to prevent skin breakdown, patient is on face mask. Will continue to monitor patient.
[2018-09-18 15:31] VITALS: BP 150/79
[~2018-09-18 15:31] MED LIST changes: +DOXYCYCLINE HY100 M6 PO; +LOSARTAN-HCTZ1 EACH ORAL; +THEOPHYLLINE A100 MG ORAL
--- NOTE | 2018-09-18 15:35 | NUR ---
ED Nurse Note: patient biba from home c/o of respiratory distress, at time of arrival, patent is actively wheezing, patient was immediately put in trauma, patient was put on a bipap 12/5 back up rate of 16 at 100%. patient is alert and oriented x4, states that she does receive continous o2 treatment at home and today got worse.
--- NOTE | 2018-09-18 15:39 | Emergency Room Report ---
History of Present Illness General Chief Complaint: Dyspnea/Respdistress Source: Patient, EMS Present Illness HPI 83-year-old female with history of asthma, presenting with shortness of breath Per EMS, patient lives alone, had a physical therapist there who called 911 as patient having shortness of breath. Patient not giving clear history, reportedly the physical therapist says that she does not think that she uses her albuterol inhaler correctly. Patient not giving clear history at this time so no other history able to be obtained. No history of any heart attacks or heart disease in the past reportedly.. Patient now stating that she became acutely short of breath today, she is normally on oxygen at home, possible fever, and coughing. No chest pain currently Allergies: Coded Allergies: VANCOMYCIN (Verified Allergy, Unknown, red eyes, itchying, 10/10/16) Uncoded Allergies: Canned Food (Allergy, Unknown, 03/22/18) Nausea/Vomitting/Indigestion Patient History Past Medical History: see triage record Past Surgical History: none Pertinent Family History: none Reviewed Nursing Documentation: PMH: Agreed; PSxH: Agreed Nursing Documentation-PMH Hx Cardiac Problems: Yes - cardiomegaly, ribs fx Hx Hypertension: Yes Hx Asthma: Yes Hx Cancer: No Hx Gastrointestinal Problems: No Hx Neurological Problems: Yes Hx Cerebrovascular Accident: Yes Hx Seizures: Yes Review of Systems All Other Systems: negative except mentioned in HPI Physical Exam Vital Signs Date Time Temp Pulse Resp B/P (MAP) Pulse Ox O2 Delivery O2 Flow Rate FiO2 09/18/18 15:27 118 28 162/83 92 Room Air Sp02 EP Interpretation: reviewed, normal General Appearance: alert, severe distress, other - Appears extremity short of breath and unable to speak any sentences to give history Head: normocephalic, atraumatic Eyes: bilateral eye normal inspection, bilateral eye PERRL, bilateral eye EOMI ENT: normal ENT inspection, normal pharynx, normal voice, moist mucus membranes Neck: normal inspection, full range of motion, supple Respiratory: respiratory distress, accessory muscle use, wheezing Cardiovascular #1: no edema, tachycardia Cardiovascular #2: 2+ radial (R), 2+ radial (L) Gastrointestinal: normal inspection, non tender, soft, non-distended, no guarding Musculoskeletal: normal inspection, back normal, normal range of motion, non- tender Neurologic: alert, responsive Psychiatric: normal inspection, judgement/insight normal, memory normal Skin: normal inspection, normal color, no rash, warm/dry, well hydrated, normal turgor Procedures Critical Care Time Critical Care Time 40 minutes of critical care time performed in order to assess and manage the high probability of imminent of lifethreatening deterioration secondary to resp function excludes all billable procedures Medical Decision Making Diagnostic Impression: Primary Impression: Acute asthma exacerbation Additional Impression: Pleural effusion, left ER Course 83-year-old female with history of asthma p/w SOB DDX: Asthma exacerbation, pneumonia, upper respiratory infection/viral syndrome, ACS , CHF Plan: Combivent nebulizer treatment x 3, steroids, EKG, CXR ER Course: Patient's respiratory status has been closely monitored in the ED. Patient has been treated with combivent x 3, steroids. on bipap, now continuous albuterol Repeat lung auscultation reveals persistent wheezing. Disposition: Patient will be admitted to SDU Dw Dr Garcia Please note that this Emergency Department Report was dictated using [employer] forklift driver truck driver technology software, occasionally this can lead to erroneous entry secondary to interpretation by the dictation equipment. EKG Diagnostic Results EP Interpretation: Yes Rate tachycardic Rhythm: NSR ST Segments: No acute changes ASA given to patient: No Rhythm Strip EP Interpretation: Yes Rate:110 Rhythm: NSR, no PVCs, no ectopy Chest X-ray CXR: Ordered: Yes 1 view Indication: SOB EP interpretation: Yes Interpretation: L pleural effusion mild/mod Impression: L pleural effusion mild/mod Electronically signed by Darin Carpio MD Laboratory Tests Test 09/18/18 15:35 09/18/18 16:00 White Blood Count 11.7 K/UL (4.8-10.8) H Red Blood Count 4.47 M/UL (4.20-5.40) Hemoglobin 14.2 G/DL (12.0-16.0) Hematocrit 41.8 % (37.0-47.0) Mean Corpuscular Volume 94 FL (80-99) Mean Corpuscular Hemoglobin 31.7 PG (27.0-31.0) H Mean Corpuscular Hemoglobin Concent 33.9 G/DL (32.0-36.0) Red Cell Distribution Width 12.7 % (11.6-14.8) Platelet Count 272 K/UL (150-450) Mean Platelet Volume 6.2 FL (6.5-10.1) L Neutrophils (%) (Auto) 37.8 % (45.0-75.0) L Lymphocytes (%) (Auto) 46.7 % (20.0-45.0) H Monocytes (%) (Auto) 8.1 % (1.0-10.0) Eosinophils (%) (Auto) 6.7 % (0.0-3.0) H Basophils (%) (Auto) 0.8 % (0.0-2.0) Sodium Level 140 MMOL/L (136-145) Potassium Level 3.4 MMOL/L (3.5-5.1) L Chloride Level 103 MMOL/L (98-107) Carbon Dioxide Level 29 MMOL/L (21-32) Anion Gap 8 mmol/L (5-15) Blood Urea Nitrogen 22 mg/dL (7-18) H Creatinine 0.7 MG/DL (0.55-1.30) Estimate Glomerular Filtration Rate mL/min (>60) Glucose Level 192 MG/DL (74-106) H Lactic Acid Level 1.40 mmol/L (0.4-2.0) Calcium Level 9.0 MG/DL (8.5-10.1) Total Bilirubin Pending Aspartate Amino Transferase (AST) Pending Alanine Aminotransferase (ALT) Pending Alkaline Phosphatase Pending Total Creatine Kinase Pending Troponin I 0.015 ng/mL (0.000-0.056) Pro-B-Type Natriuretic Peptide Pending Total Protein Pending Albumin Pending Globulin Pending Urine Color Pale yellow Urine Appearance Clear Urine pH 6 (4.5-8.0) Urine Specific [place] 1.015 (1.005-1.035) Urine Protein 3+ (NEGATIVE) H Urine Glucose (UA) Negative (NEGATIVE) Urine Ketones Negative (NEGATIVE) Urine Blood 1+ (NEGATIVE) H Urine Nitrite Negative (NEGATIVE) Urine Bilirubin Negative (NEGATIVE) Urine Urobilinogen Normal MG/DL (0.0-1.0) Urine Leukocyte Esterase 1+ (NEGATIVE) H Urine RBC 2-4 /HPF (0 - 2) H Urine WBC 2-4 /HPF (0 - 2) Urine Squamous Epithelial Cells Occasional /LPF Urine Bacteria Occasional /HPF (NONE) Last Vital Signs Date Time Temp Pulse Resp B/P (MAP) Pulse Ox O2 Delivery O2 Flow Rate FiO2 09/18/18 15:27 118 28 162/83 92 Room Air Darin Carpio M.D. Sep 18, 2018 15:39
[2018-09-18] MEDS ORDERED: Solu-MEDROL 125mg Inj IVP ONE (15:45)
[2018-09-18] MEDS ORDERED: PAZEO2.5 ML OP (15:46)
[2018-09-18] MEDS ORDERED: VENTOLIN HFA18 GM INH (15:46)
[2018-09-18] MEDS ORDERED: RESTASIS1 EACH BOTH EYES (15:46)
[2018-09-18] MEDS ORDERED: bevespi (15:46)
[2018-09-18] MEDS: Albuterol/Ipratropium 3ml neb HHN SCH ×6 (15:51→19:00)
[2018-09-18 16:02] LABS: BASOPHILS % (AUTO) 0.8 % (0.0-2.0); EOSINOPHILS % (AUTO) 6.7 % (0.0-3.0); HEMATOCRIT 41.8 % (37.0-47.0); HEMOGLOBIN 14.2 G/DL (12.0-16.0); LYMPHOCYTES % (AUTO) 46.7 % (20.0-45.0); MEAN CORPUSCULAR VOLUME 94 FL (80-99); MONOCYTES % (AUTO) 8.1 % (1.0-10.0); NEUTROPHILS % (AUTO) 37.8 % (45.0-75.0); PLATELET COUNT 272 K/UL (150-450); RED BLOOD COUNT 4.47 M/UL (4.20-5.40); RED CELL DISTRIBUTION WIDTH 12.7 % (11.6-14.8); WHITE BLOOD COUNT 11.7 K/UL (4.8-10.8)
[2018-09-18 16:22] LABS: APPEARANCE,URINE CLEAR; BILIRUBIN, URINE NEGATIVE (NEGATIVE); COLOR,URINE PALE YELLOW; GLUCOSE, URINE (UA) NEGATIVE (NEGATIVE); KETONES,URINE NEGATIVE (NEGATIVE); LEUKOCYTE ESTERASE ,URINE 1+ (NEGATIVE); NITRITE,URINE NEGATIVE (NEGATIVE); PH,URINE 6 (4.5-8.0); PROTEIN,URINE 3+ (NEGATIVE); UROBILINOGEN,URINE NORMAL MG/DL (0.0-1.0)
[2018-09-18 16:24] LABS: ANION GAP 8 mmol/L (5-15); BLOOD UREA NITROGEN 22 mg/dL (7-18); CARBON DIOXIDE 29 MMOL/L (21-32); CHLORIDE 103 MMOL/L (98-107); CREATININE 0.7 MG/DL (0.55-1.30); POTASSIUM 3.4 MMOL/L (3.5-5.1); SODIUM 140 MMOL/L (136-145)
[2018-09-18 16:41] LABS: ALANINE AMINOTRANSFERASE 33 U/L (12-78); ALKALINE PHOSPHATASE 144 U/L (46-116); ASPARTATE AMINO TRANSFERASE 16 U/L (15-37); BILIRUBIN,TOTAL 0.2 MG/DL (0.2-1.0); CREATINE KINASE 143 U/L (26-308)
--- NOTE | 2018-09-18 17:10 | Diagnostic Imaging Report ---
Indication: Dyspnea Comparison: 08/15/2018 A single view chest radiograph was obtained. Findings: Cardiomegaly is again noted. Hiatal hernia is present. Lungs are clear. Bones are osteopenic. IMPRESSION: No acute findings. No change from the prior study.
--- NOTE | 2018-09-18 17:30 | NUR ---
TRANSFER TO FLOOR: Patient transferred to SDU as ordered, per Dr. Garcia . Report given to AMMY Barrios.
--- NOTE | 2018-09-18 17:35 | NUR ---
NURSE NOTES: Received report from Ignacio. pt sitting up in bed. c/o of SOB,wheezing, patient was placed on bipap12/5. patient was put on a bipap 12/5 100%, 02sat at 100%. patient is alert and oriented x3, wheezing and diminished breath sounds lower lobes. bed alarm on. call light in reach
[2018-09-18] MEDS ORDERED: LORazepam Inj 2mg/ml 1ml IV PRN (18:15)
[2018-09-18] MEDS ORDERED: Insulin Human Regular 100units/ml 3ml IV ONE (18:15)
[2018-09-18] MEDS ORDERED: Nitroglycerin Subl 0.4mg tab SL PRN (18:15)
[2018-09-18] MEDS ORDERED: Albuterol/Ipratropium 3ml neb HHN PRN (18:15)
[2018-09-18] MEDS ORDERED: Ketorolac 30mg Inj IV PRN (18:15)
[2018-09-18] MEDS ORDERED: Sodium Polystyrene Sulfonate 15gm Powder ORAL ONE (18:15)
[2018-09-18] MEDS ORDERED: Calcium Gluconate 1gm/10ml vial IVP ONE (18:15)
[2018-09-18] MEDS ORDERED: Morphine Sulfate 4mg/ml Inj (IV/IM USE ONLY) IVP PRN (18:15)
[2018-09-18] MEDS ORDERED: Promethazine/Codeine 5ml UD ORAL PRN ×2 (18:15→20:45)
[2018-09-18 20:00] VITALS: BP 112/61
--- NOTE | 2018-09-18 20:20 | NUR ---
NURSE NOTES: Received patient from AMMY Barrios. Will continue plan of care.
--- NOTE | 2018-09-18 20:27 | NUR ---
NURSE NOTES: MD Garcia here to see pt. ok to place order for doppler of lower extremities.
--- NOTE | 2018-09-18 20:27 | NUR ---
NURSE NOTES: pt resting in bed. repositioned. no c/o distress
--- NOTE | 2018-09-18 20:41 | History & Physical ---
History and Physical History & Physicial HISTORY AND PHYSICAL Patient: NA DELEON [facility] Rec #: [id number] Date of Service: 09/18/18 DATE OF ADMISSION: 09/18/18 CHIEF COMPLAINT: The patient is an 83-year-old [place] female, who presents with complaint of severe shortness of breath. HISTORY OF PRESENT ILLNESS: The patient was admitted to [facility] from 05/22/2018 to 05/28/2018. The patient was admitted for asthma exacerbation. The patient presented to [place] emergency room complaining of a day history of shortness of breath. The patient states she had some chest tightness and heaviness as well. The patient denies any fevers or chills. The patient does complain of cough. The patient is admitted for shortness of breath due to acute exacerbation of asthma. REVIEW OF SYSTEMS: CONSTITUTIONAL: The patient denies weight loss or weight gain. The patient denies fevers or chills. HEENT: The patient denies ear or throat pain. The patient denies headache. CARDIOVASCULAR: The patient complains of chest tightness as above. The patient denies palpitations. CHEST: The patient complains of shortness of breath as above. The patient denies wheezes. ABDOMEN: The patient denies nausea, vomiting, diarrhea, or constipation. GENITOURINARY: The patient denies dysuria or increased frequency of urination. NEUROMUSCULAR: The patient denies seizures or generalized weakness. PAST MEDICAL HISTORY: Significant for: 1. Asthma. 2. History of hemorrhagic cerebrovascular accident. 3. Hypertension. 4. Hypercholesterolemia. 5. Gastroesophageal reflux disease. 6. Seizure disorder. 7. Coronary artery disease, status post stent placement in November of 2017. PAST SURGICAL HISTORY: Significant for: 1. Appendectomy. 2. Cardiac catheterization in November 2017 with one stent placed. CURRENT MEDICATIONS: 1. Albuterol metered-dose inhaler two puffs p.o. q.i.d. p.r.n. 2. Amlodipine 2.5 mg p.o. daily. 3. Atorvastatin 40 mg p.o. daily. 4. Clopidogrel 75 mg p.o. daily. 5. Dexilant 60 mg p.o. daily. 6. Prozac 20 mg p.o. daily. 7. Advair 250/50 one puff p.o. twice daily. 8. Hydroxyzine 25 mg p.o. q.6 hours p.r.n. 9. Labetalol. 10. Isosorbide 30 mg p.o. daily. 11. Zyrtec 5 mg p.o. daily. 12. Losartan/hydrochlorothiazide 100/12.5 one tablet p.o. daily. 13. Singulair 10 mg p.o. daily. 14. Protonix 40 mg p.o. daily. 15. Dilantin 100 mg p.o. twice daily. 16. Prednisone as needed p.r.n. 17. Lyrica 50 mg p.o. twice daily. 18. Valsartan/hydrochlorothiazide 160/12.5 one tablet p.o. q.12 hours. ALLERGIES: Vancomycin. SOCIAL HISTORY: The patient is a . The patient is single. The patient lives alone. The patient denies tobacco or alcohol use. PHYSICAL EXAMINATION: Date Time Temp Pulse Resp B/P (MAP) Pulse Ox O2 Delivery O2 Flow Rate FiO2 09/18/18 19:27 7 18 96 Facial 40 09/18/18 18:02 Bi-pap 09/18/18 17:29 98.5 83 27 128/73 100 Bi-pap 09/18/18 17:00 90 24 98 Bi-pap 100 09/18/18 16:54 86 24 98 Facial 100 09/18/18 15:45 110 28 96 Bi-pap 100 09/18/18 15:33 101 29 Bi-pap 8.0 100 09/18/18 15:31 118 29 150/79 96 Bi-pap 100 09/18/18 15:27 118 28 162/83 92 Room Air 09/18/18 15:25 108 32 97 Facial 100 09/18/18 15:25 110 28 Simple Mask 8.0 GENERAL: The patient is well-developed, well-nourished, female, on BiPAP. HEENT: Eyes, pupils equal and responsive to light and accommodation. Extraocular movements are intact. Facial full mask. NECK: Supple without lymphadenopathy. CHEST: Diffuse wheezes in bilateral bases. decrease air at bases. CARDIOVASCULAR: Regular rhythm and rate. S1-S2 are normal without murmurs or gallops. ABDOMEN: Soft, nontender, and nondistended. Positive bowel sounds. no rebound or guarding noted. EXTREMITIES: Negative for clubbing, cyanosis, or edema. RECTAL/GENITAL: Refused. NEUROLOGIC: Cranial nerves II through XII are grossly intact without focal deficits. Motor strength is 5/5 bilaterally. LABORATORY STUDIES: Test 09/18/18 15:35 09/18/18 16:00 09/18/18 17:05 White Blood Count 11.7 K/UL (4.8-10.8) Red Blood Count 4.47 M/UL (4.20-5.40) Hemoglobin 14.2 G/DL (12.0-16.0) Hematocrit 41.8 % (37.0-47.0) Mean Corpuscular Volume 94 FL (80-99) Mean Corpuscular Hemoglobin 31.7 PG (27.0-31.0) Mean Corpuscular Hemoglobin Concent 33.9 G/DL (32.0-36.0) Red Cell Distribution Width 12.7 % (11.6-14.8) Platelet Count 272 K/UL (150-450) Mean Platelet Volume 6.2 FL (6.5-10.1) Neutrophils (%) (Auto) 37.8 % (45.0-75.0) Lymphocytes (%) (Auto) 46.7 % (20.0-45.0) Monocytes (%) (Auto) 8.1 % (1.0-10.0) Eosinophils (%) (Auto) 6.7 % (0.0-3.0) Basophils (%) (Auto) 0.8 % (0.0-2.0) Sodium Level 140 MMOL/L (136-145) Potassium Level 3.4 MMOL/L (3.5-5.1) Chloride Level 103 MMOL/L (98-107) Carbon Dioxide Level 29 MMOL/L (21-32) Anion Gap 8 mmol/L (5-15) Blood Urea Nitrogen 22 mg/dL (7-18) Creatinine 0.7 MG/DL (0.55-1.30) Estimat Glomerular Filtration Rate mL/min (>60) Glucose Level 192 MG/DL (74-106) Lactic Acid Level 1.40 mmol/L (0.4-2.0) Calcium Level 9.0 MG/DL (8.5-10.1) Total Bilirubin 0.2 MG/DL (0.2-1.0) Aspartate Amino Transf (AST/SGOT) 16 U/L (15-37) Alanine Aminotransferase (ALT/SGPT) 33 U/L (12-78) Alkaline Phosphatase 144 U/L (46-116) Total Creatine Kinase 143 U/L (26-308) Troponin I 0.015 ng/mL (0.000-0.056) Pro-B-Type Natriuretic Peptide 55 pg/mL (0-125) Total Protein 8.1 G/DL (6.4-8.2) Albumin 4.0 G/DL (3.4-5.0) Globulin 4.1 g/dL Albumin/Globulin Ratio 1.0 (1.0-2.7) Urine Color Pale yellow Urine Appearance Clear Urine pH 6 (4.5-8.0) Urine Specific [place] 1.015 (1.005-1.035) Urine Protein 3+ (NEGATIVE) Urine Glucose (UA) Negative (NEGATIVE) Urine Ketones Negative (NEGATIVE) Urine Blood 1+ (NEGATIVE) Urine Nitrite Negative (NEGATIVE) Urine Bilirubin Negative (NEGATIVE) Urine Urobilinogen Normal MG/DL (0.0-1.0) Urine Leukocyte Esterase 1+ (NEGATIVE) Urine RBC 2-4 /HPF (0 - 2) Urine WBC 2-4 /HPF (0 - 2) Urine Squamous Epithelial Cells Occasional /LPF Urine Bacteria Occasional /HPF (NONE) Arterial Blood pH 7.350 (7.350-7.450) Arterial Blood Partial Pressure CO2 51.7 mmHg (35.0-45.0) Arterial Blood Partial Pressure O2 489.7 mmHg (75.0-100.0) Arterial Blood HCO3 27.9 mmol/L (22.0-26.0) Arterial Blood Oxygen Saturation 99.5 % (95-100) Arterial Blood Base Excess 1.3 (-2-2) Mk Test Positive CXR: Findings: Cardiomegaly is again noted. Hiatal hernia is present. Lungs are clear. Bones are osteopenic. IMPRESSION: No acute findings. No change from the prior study. ASSESSMENT: This is an 83-year-old female. 1. Shortness of breath. 2. Acute Respiratory Failure on BiPAP. 3. Acute exacerbation of asthma. 4. Cerebrovascular disease. 5. Hypertension. 6. Hypercholesterolemia. 7. Gastroesophageal reflux disease. 8. History of seizure disorder. 9. Coronary artery disease. TREATMENT: 1. Shortness of breath most likely due to acute asthma exacerbation. Pulmonary consultation will be obtained with Dr. Luis A Juares. The patient has been started on intravenous Solu-Medrol. The patient is currently receiving DuoNeb. We will follow recommendations of Pulmonary. 2. Cerebrovascular disease. The patient is status post hemorrhagic stroke. 3. Hypertension. Continue amlodipine as above. 4. Hypercholesteremia. Continue Lipitor as above. 5. Gastroesophageal reflux disease. Dexilant is non formulary at [facility]. The patient has been started on Protonix. 6. Seizure disorder. Continue Dilantin as above. 7. Coronary artery disease. Shlomo Garcia M.D. Shlomo Garcia MD Sep 18, 2018 20:41
[2018-09-18] MEDS ORDERED: HydrOXYzine tab 25mg tab ORAL PRN (20:45)
[2018-09-18] MEDS ORDERED: Phenytoin 100mg cap ORAL SCH (21:00)
[2018-09-18] MEDS: Advair 250/50 Inhaler - 14 dose INH SCH (21:00)
[2018-09-18] MEDS: Lyrica 50mg cap ORAL SCH ×3 (21:00→23:54)
[2018-09-18] MEDS: Heparin 5000 units/ml inj SUBQ SCH (21:00)
[2018-09-18] MEDS: Theophylline ER 100mg ORAL SCH (21:00)
[2018-09-18] MEDS ORDERED: Piperacillin/Tazobactam 2.25 GM in D5W 55 ML IV SCH (22:00)
[2018-09-18] MEDS: Zoysn 3.37gm in NS 100ML IVPB SCH (22:19)
[2018-09-18] MEDS: Solu-MEDROL 125mg Inj IV SCH (23:56)
[2018-09-19] VITALS: BP 112/63
--- NOTE | 2018-09-19 02:11 | NUR ---
NURSE NOTES: Patient refuses bed bath and linen change, would like to do it later in the day. Will endorse to incoming nurse.
[2018-09-19 04:00] VITALS: BP 140/61
--- NOTE | 2018-09-19 04:16 | NUR ---
NURSE NOTES: Patient refuses lab draw this AM. Will endorse to the incoming nurse.
[2018-09-19] MEDS: Solu-MEDROL 125mg Inj IV SCH ×3 (05:45→17:41)
[2018-09-19] MEDS: Zoysn 3.37gm in NS 100ML IVPB SCH ×2 (05:45→14:00)
--- NOTE | 2018-09-19 06:29 | NUR ---
NURSE NOTES: Patient has been calling throughout the night. Attempted to move closer to nursing station for closer monitoring but she refused and insisted to stay in current room. All needs are met. Adivsed patient to keep calm and to limited movement due to shortness of breath upon exertion. Will keep monitoring.
--- NOTE | 2018-09-19 07:08 | NUR ---
HAND-OFF: Report given to AMMY HINOJOSA.
--- NOTE | 2018-09-19 07:09 | NUR ---
NURSE NOTES: Received patient from AMMY Churchill. Patient awake and sitting on the edge of the bed. Patient was on bipap 12/5 40%, but asked to be removed 5 minutes later. lunchroom monitor in placed. Able to ambulate to the bathroom. IV site Left Arm 22G asymptomatic. Per PM nurse, patient refuses AM labs. Will try to ask again later. Bed in lowest position with side rails up. Will continue to follow plan of care.
--- NOTE | 2018-09-19 07:28 | NUR ---
Patient alert and awake. Asked to be placed on BIPAP because SOB. Placed on BIPAP 12/5 40% FIO2. Asked to be taken off 5 minutes later. Placed on NC 4LPM.
[2018-09-19 08:00] VITALS: BP 147/81
--- NOTE | 2018-09-19 08:30 | NUR ---
NURSE NOTES: Attempted to ask patient again if we can draw labs from her, but she still refused.
--- NOTE | 2018-09-19 08:55 | NUR ---
NURSE NOTES: Informed Dr. Juares for patient's potassium of 3.4 from yesterday and patient did not receive anything for potassium. No new order. Also aware that patient refused AM labs today.
[2018-09-19] MEDS ORDERED: Montelukast 10mg tablet ORAL SCH (09:00)
[2018-09-19] MEDS ORDERED: Phenytoin 100mg cap ORAL SCH (09:00)
[2018-09-19] MEDS ORDERED: Atorvastatin 20mg tab ORAL SCH (09:00)
[2018-09-19] MEDS: Advair 250/50 Inhaler - 14 dose INH SCH ×2 (09:11→22:26)
[2018-09-19] MEDS: Theophylline ER 100mg ORAL SCH ×2 (09:18→21:26)
[2018-09-19] MEDS: Lyrica 50mg cap ORAL SCH ×3 (09:18→21:30)
[2018-09-19] MEDS: Heparin 5000 units/ml inj SUBQ SCH ×2 (09:22→21:30)
[2018-09-19 12:00] VITALS: BP 130/75
--- NOTE | 2018-09-19 12:57 | Internal Med Progress Note ---
Subjective Date of Service: Sep 19, 2018 Physician Name Hank Toure Attending Physician Shlomo Garcia MD Current Medications Medications (Trade) Dose Ordered Sig/[place] Route PRN Reason Start Time Stop Time Status Last Admin Dose Admin Albuterol/ Ipratropium (Albuterol/ Ipratropium) 3 ml Q4H PRN HHN dyspnea 09/18/18 18:15 09/23/18 18:14 09/19/18 02:55 Amlodipine Besylate (Norvasc) 2.5 mg DAILY ORAL 09/18/18 20:45 10/18/18 20:44 09/19/18 09:18 Atorvastatin Calcium (Lipitor) 40 mg DAILY ORAL 09/19/18 09:00 10/19/18 08:59 09/19/18 09:18 Clopidogrel Bisulfate (Plavix) 75 mg DAILY ORAL 09/19/18 09:00 10/19/18 08:59 09/19/18 09:18 Dextrose (Dextrose 50%) 25 ml Q30M PRN IV Hypoglycemia 09/18/18 18:15 10/18/18 18:14 Dextrose (Dextrose 50%) 50 ml Q30M PRN IV Hypoglycemia 09/18/18 18:15 10/18/18 18:14 Fluoxetine HCl (PROzac) 20 mg DAILY ORAL 09/19/18 09:00 10/19/18 08:59 09/19/18 09:18 Heparin Sodium (Porcine) (Heparin 5000 units/ml) 5,000 units EVERY 12 HOURS SUBQ 09/18/18 21:00 10/18/18 20:59 09/19/18 09:22 Hydroxyzine HCl (Atarax) 25 mg Q6H PRN ORAL Itching/Pruritis 09/18/18 20:45 10/18/18 20:44 Ketorolac Tromethamine (Toradol 30mg) 30 mg Q8H PRN IV moderate pain 4-6 09/18/18 18:15 09/23/18 18:14 Lorazepam (Ativan 2mg/ml 1ml) 0.5 mg Q4H PRN IV For Anxiety 09/18/18 18:15 09/25/18 18:14 Methylprednisolone Sodium Succinate (Solu-MEDROL) 60 mg EVERY 6 HOURS IV 09/19/18 00:00 10/19/18 00:00 09/19/18 11:24 Montelukast Sodium (Singulair) 10 mg DAILY ORAL 09/19/18 09:00 10/19/18 08:59 09/19/18 09:18 Morphine Sulfate (Morphine Sulfate) 2 mg Q4H PRN IVP severe pain 7-10 09/18/18 18:15 09/25/18 18:14 Nitroglycerin (Ntg) 0.4 mg Q5M X 3 DOSES PRN SL Prn Chest Pain 09/18/18 18:15 10/18/18 18:14 Ondansetron HCl (Zofran) 4 mg Q6H PRN IVP Nausea & Vomiting 09/18/18 18:15 10/18/18 18:14 Pantoprazole (Protonix) 40 mg DAILY ORAL 09/19/18 09:00 10/19/18 08:59 09/19/18 09:16 Phenytoin (Dilantin) 100 mg BEDTIME ORAL 09/18/18 21:00 10/18/18 20:59 09/18/18 22:21 Phenytoin (Dilantin) 100 mg DAILY ORAL 09/19/18 09:00 10/19/18 08:59 09/19/18 09:16 Piperacillin Sod/ Tazobactam Sod 3.375 gm/Sodium Chloride 110 ml @ 27.5 mls/hr EVERY 8 HOURS IVPB 09/18/18 22:00 09/23/18 21:59 09/19/18 05:45 Pregabalin (Lyrica) 50 mg Q12HR ORAL 09/18/18 21:00 10/18/18 20:59 09/19/18 09:18 Promethazine HCl/ Codeine (Phenergan with Codeine) 5 ml Q8H PRN ORAL For Cough 09/18/18 20:45 10/18/18 20:44 09/19/18 04:13 Salmeterol Xinafoate/ Fluticasone (Advair 250/50 Diskus) 1 puffs EVERY 12 HOURS INH 09/18/18 21:00 10/18/18 20:59 09/19/18 09:11 Temazepam (Restoril) 15 mg HSPRN PRN ORAL Insomnia 09/18/18 18:15 09/25/18 18:14 Theophylline (Fabrice-Dur) 100 mg EVERY 12 HOURS ORAL 09/18/18 21:00 10/18/18 20:59 09/19/18 09:18 Allergies: Coded Allergies: VANCOMYCIN (Verified Allergy, Unknown, red eyes, itchying, 10/10/16) Uncoded Allergies: Canned Food (Allergy, Unknown, 03/22/18) Nausea/Vomitting/Indigestion ROS Limited/Unobtainable: No Constitutional: Reports: no symptoms HEENT: Reports: no symptoms Cardiovascular: Reports: no symptoms Respiratory: Reports: shortness of breath Gastrointestinal/Abdominal: Reports: no symptoms Genitourinary: Reports: no symptoms Neurologic/Psychiatric: Reports: no symptoms Subjective 83 YO F with history of asthma admitted with shortness of breath. Cover for Int Med-Dr Garcia. WALTER Objective Last Vital Signs Date Time Temp Pulse Resp B/P (MAP) Pulse Ox O2 Delivery O2 Flow Rate FiO2 09/19/18 09:18 78 147/81 09/19/18 08:00 Nasal Cannula 5.0 09/19/18 08:00 98.4 25 94 09/19/18 06:51 40 General Appearance: WD/WN, no apparent distress, alert EENT: PERRL/EOMI, normal ENT inspection Neck: non-tender, normal alignment, supple, normal inspection Cardiovascular: normal peripheral pulses, normal rate, regular rhythm, no gallop/murmur, no JVD Respiratory/Chest: respiratory distress, crackles/rales, rhonchi - bilaterally , expiratory wheezing Abdomen: normal bowel sounds, non tender, soft, no organomegaly, no mass Extremities: normal range of motion, non-tender Neurologic: academic support assistant II-XII grossly normal, no motor/sensory deficits Skin: normal pigmentation, warm/dry Laboratory Tests Test 09/18/18 15:35 09/18/18 16:00 09/18/18 17:05 09/18/18 20:28 White Blood Count 11.7 K/UL (4.8-10.8) H Red Blood Count 4.47 M/UL (4.20-5.40) Hemoglobin 14.2 G/DL (12.0-16.0) Hematocrit 41.8 % (37.0-47.0) Mean Corpuscular Volume 94 FL (80-99) Mean Corpuscular Hemoglobin 31.7 PG (27.0-31.0) H Mean Corpuscular Hemoglobin Concent 33.9 G/DL (32.0-36.0) Red Cell Distribution Width 12.7 % (11.6-14.8) Platelet Count 272 K/UL (150-450) Mean Platelet Volume 6.2 FL (6.5-10.1) L Neutrophils (%) (Auto) 37.8 % (45.0-75.0) L Lymphocytes (%) (Auto) 46.7 % (20.0-45.0) H Monocytes (%) (Auto) 8.1 % (1.0-10.0) Eosinophils (%) (Auto) 6.7 % (0.0-3.0) H Basophils (%) (Auto) 0.8 % (0.0-2.0) Sodium Level 140 MMOL/L (136-145) Potassium Level 3.4 MMOL/L (3.5-5.1) L Chloride Level 103 MMOL/L (98-107) Carbon Dioxide Level 29 MMOL/L (21-32) Anion Gap 8 mmol/L (5-15) Blood Urea Nitrogen 22 mg/dL (7-18) H Creatinine 0.7 MG/DL (0.55-1.30) Estimat Glomerular Filtration Rate mL/min (>60) Glucose Level 192 MG/DL (74-106) H Lactic Acid Level 1.40 mmol/L (0.4-2.0) Calcium Level 9.0 MG/DL (8.5-10.1) Total Bilirubin 0.2 MG/DL (0.2-1.0) Aspartate Amino Transf (AST/SGOT) 16 U/L (15-37) Alanine Aminotransferase (ALT/SGPT) 33 U/L (12-78) Alkaline Phosphatase 144 U/L (46-116) H Total Creatine Kinase 143 U/L (26-308) Troponin I 0.015 ng/mL (0.000-0.056) Pro-B-Type Natriuretic Peptide 55 pg/mL (0-125) Total Protein 8.1 G/DL (6.4-8.2) Albumin 4.0 G/DL (3.4-5.0) Globulin 4.1 g/dL Albumin/Globulin Ratio 1.0 (1.0-2.7) Urine Color Pale yellow Urine Appearance Clear Urine pH 6 (4.5-8.0) Urine Specific [place] 1.015 (1.005-1.035) Urine Protein 3+ (NEGATIVE) H Urine Glucose (UA) Negative (NEGATIVE) Urine Ketones Negative (NEGATIVE) Urine Blood 1+ (NEGATIVE) H Urine Nitrite Negative (NEGATIVE) Urine Bilirubin Negative (NEGATIVE) Urine Urobilinogen Normal MG/DL (0.0-1.0) Urine Leukocyte Esterase 1+ (NEGATIVE) H Urine RBC 2-4 /HPF (0 - 2) H Urine WBC 2-4 /HPF (0 - 2) Urine Squamous Epithelial Cells Occasional /LPF Urine Bacteria Occasional /HPF (NONE) Arterial Blood pH 7.350 (7.350-7.450) 7.331 (7.350-7.450) Arterial Blood Partial Pressure CO2 51.7 mmHg (35.0-45.0) H 49.3 mmHg (35.0-45.0) H Arterial Blood Partial Pressure O2 489.7 mmHg (75.0-100.0) H 133.1 mmHg (75.0-100.0) H Arterial Blood HCO3 27.9 mmol/L (22.0-26.0) H 25.5 mmol/L (22.0-26.0) Arterial Blood Oxygen Saturation 99.5 % (95-100) 98.4 % (95-100) Arterial Blood Base Excess 1.3 (-2-2) -0.9 (-2-2) Mk Test Positive Positive Microbiology Date/Time Source Procedure Growth Status 09/18/18 16:00 Nasal Nares Influenza Types A,B Antigen (LOWELL) - Final Complete Intake and Output 09/18/18 09/19/18 19:00 07:00 Intake Total 144.40 ml Balance 144.40 ml Intake IV Total 144.40 ml # Voids 1 Assessment/Plan Problem List: (1) Dyspnea (2) Acute asthma exacerbation Assessment & Plan: See pulmonary note. Continue albuterol nebs, theophylline, singulair and solumedrol (3) HTN (hypertension) Assessment & Plan: continue norvasc (4) GERD (gastroesophageal reflux disease) Assessment & Plan: Continue protonix (5) Seizure disorder Assessment & Plan: Continue Dilantin (6) Hemorrhagic stroke (7) Cerebral vascular disease (8) MDD (major depressive disorder), recurrent episode, moderate Assessment & Plan: continue prozac (9) Bronchitis Assessment & Plan: Continue zosyn Status: progressing Hank Toure MD Sep 19, 2018 12:57
[2018-09-19] MEDS ORDERED: Lidocaine 1% MPF 10mg/ml 5ml HHN PRN ×2 (13:15→17:15)
--- NOTE | 2018-09-19 13:29 | Consultation ---
History of Present Illness General Date patient seen: Sep 19, 2018 Chief Complaint: Dyspnea/Respdistress Present Illness HPI 83-year-old female with history of HTN, asthma, CVA/TIA presents to ED for evaluation for shortness of breath. Per EMS patient was wheezing and they started her on breathing treatments. Patient states she feels a little better but still feels very short of breath. States she's been using her inhaler at home without significant relief. Denies cough. Denies chest pain. Denies fevers or chills. Denies sick contacts or recent travel. Pt is admitted to telemetry for further treatment. Allergies: Coded Allergies: VANCOMYCIN (Verified Allergy, Unknown, red eyes, itchying, 10/10/16) Uncoded Allergies: Canned Food (Allergy, Unknown, 03/22/18) Nausea/Vomitting/Indigestion Medication History Scheduled Albuterol Sulfate (Ventolin Hfa), 1 PUFF INH EVERY 6 HOURS Albuterol Sulfate (Ventolin Hfa), 1 PUFF INH EVERY 6 HOURS, (Reported) Amlodipine Besylate* (Amlodipine Besylate*), 2.5 MG ORAL DAILY, (Reported) Atorvastatin (Lipitor), 40 MG ORAL DAILY, (Reported) Clopidogrel* (Clopidogrel*), 75 MG ORAL DAILY, (Reported) Cyclosporine (Restasis), 1 DROP BOTH EYES EVERY 12 HOURS, (Reported) Dexlansoprazole (Dexilant), 60 MG ORAL QHS, (Reported) Dexlansoprazole (Dexilant), 60 MG ORAL DAILY, (Reported) Doxycycline Hyclate (Doxycycline Hyclate), 100 MG PO BID Fluoxetine Hcl* (Prozac*), 20 MG ORAL DAILY, (Reported) Fluticasone/Salmeterol (Advair 250-50 Diskus), 1 PUFF INH EVERY 12 HOURS Labetalol Hcl* (Labetalol Hcl*), 100 MG IV DAILY, (Reported) Levocetirizine Dihydrochloride (Levocetirizine Dihydrochloride), 5 MG ORAL DAILY , (Reported) Levofloxacin (Levofloxacin*), 750 MG ORAL DAILY, (Reported) Loratadine (Loratadine), 10 MG PO DAILY, (Reported) Losartan/Hydrochlorothiazide (Losartan-Hctz 100-12.5 Mg Tab), 1 TAB ORAL DAILY, (Reported) Montelukast Sodium (Montelukast Sodium), 10 MG ORAL DAILY, (Reported) Montelukast Sodium* (Montelukast Sodium*), 10 MG ORAL DAILY, (Reported) Pantoprazole* (Protonix*), 40 MG ORAL DAILY, (Reported) Phenytoin Sodium Extended* (Phenytoin Sodium Extended*), 100 MG ORAL DAILY, ( Reported) Phenytoin Sodium Extended* (Phenytoin Sodium Extended*), 100 MG ORAL BEDTIME, ( Reported) Pregabalin (Lyrica), 50 MG ORAL Q12HR, (Reported) Theophylline (Theodur*), 100 MG ORAL EVERY 12 HOURS Valsartan/Hydrochlorothiazide 160-12.5 (Valsartan-Hctz 160-12.5 Mg Tab), 1 TAB ORAL Q12HR, (Reported) Scheduled PRN Codeine/Promethazine Hcl* (Promethazine-Codeine Syrup*), 5 ML ORAL Q8HR PRN for For Cough, (Reported) Hydroxyzine HCl (Hydroxyzine HCl), 25 MG ORAL Q6H PRN Miscellaneous Medications Isosorbide (Isosorbide), 30 MG MC, (Reported) Methylprednisolone (Medrol), 4 MG PO, (Reported) Olopatadine HCl (Pazeo), 2.5 ML OP, (Reported) [bevespi], (Reported) Patient History Healthcare decision maker Resuscitation status Full Code Advanced Directive on File Past Medical/Surgical History Past Medical/Surgical History: (1) MDD (major depressive disorder), recurrent episode, moderate (2) Anxiety (3) Cerebral vascular disease (4) Seizure disorder (5) HTN (hypertension) Review of Systems All Other Systems: negative except mentioned in HPI Physical Exam General Appearance: WD/WN, no apparent distress Lines, tubes and drains: peripheral HEENT: normocephalic, atraumatic Neck: non-tender, normal alignment Respiratory/Chest: chest wall non-tender, rhonchi - left, rhonchi - right, expiratory wheezing Cardiovascular/Chest: normal peripheral pulses, normal rate Abdomen: normal bowel sounds, non tender Genitourinary/Rectal: normal genital exam Extremities: normal range of motion 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 grossly normal Lymphatic: anterior cervical Last 24 Hour Vital Signs Date Time Temp Pulse Resp B/P (MAP) Pulse Ox O2 Delivery O2 Flow Rate FiO2 1/16/19 12:00 Nasal Cannula 5.0 09/19/18 12:00 5.0 09/19/18 12:00 98.9 87 24 130/75 (93) 98 87 09/19/18 09:18 78 147/81 09/19/18 08:00 Nasal Cannula 5.0 09/19/18 08:00 98.4 78 25 147/81 (103) 94 78 09/19/18 08:00 5.0 09/19/18 07:33 82 09/19/18 06:51 86 27 96 Facial 40 09/19/18 04:00 98.8 83 20 140/61 (87) 95 83 09/19/18 04:00 Bi-pap 100.0 09/19/18 04:00 100 09/19/18 03:22 91 09/19/18 02:58 85 23 96 Bi-pap 40 09/19/18 02:50 120 32 96 Facial 42 09/19/18 02:50 120 32 96 Bi-pap 40 09/19/18 00:00 98.4 88 16 112/63 (79) 94 88 09/19/18 00:00 Bi-pap 100.0 09/18/18 23:25 104 09/18/18 20:45 7 128/73 09/18/18 20:01 84 09/18/18 20:00 98.0 79 16 112/61 (78) 95 79 09/18/18 20:00 100 09/18/18 20:00 Bi-pap 100.0 09/18/18 19:27 7 18 96 Facial 40 09/18/18 18:02 Bi-pap 09/18/18 17:29 98.5 83 27 128/73 100 Bi-pap 09/18/18 17:00 90 24 98 Bi-pap 100 09/18/18 16:54 86 24 98 Facial 100 09/18/18 15:45 110 28 96 Bi-pap 100 09/18/18 15:33 101 29 Bi-pap 8.0 100 09/18/18 15:31 118 29 150/79 96 Bi-pap 100 09/18/18 15:27 118 28 162/83 92 Room Air 09/18/18 15:25 108 32 97 Facial 100 09/18/18 15:25 110 28 Simple Mask 8.0 Intake and Output 09/18/18 09/19/18 19:00 07:00 Intake Total 144.40 ml Balance 144.40 ml Intake IV Total 144.40 ml # Voids 1 Laboratory Tests Test 09/18/18 15:35 09/18/18 16:00 09/18/18 17:05 09/18/18 20:28 White Blood Count 11.7 K/UL (4.8-10.8) H Red Blood Count 4.47 M/UL (4.20-5.40) Hemoglobin 14.2 G/DL (12.0-16.0) Hematocrit 41.8 % (37.0-47.0) Mean Corpuscular Volume 94 FL (80-99) Mean Corpuscular Hemoglobin 31.7 PG (27.0-31.0) H Mean Corpuscular Hemoglobin Concent 33.9 G/DL (32.0-36.0) Red Cell Distribution Width 12.7 % (11.6-14.8) Platelet Count 272 K/UL (150-450) Mean Platelet Volume 6.2 FL (6.5-10.1) L Neutrophils (%) (Auto) 37.8 % (45.0-75.0) L Lymphocytes (%) (Auto) 46.7 % (20.0-45.0) H Monocytes (%) (Auto) 8.1 % (1.0-10.0) Eosinophils (%) (Auto) 6.7 % (0.0-3.0) H Basophils (%) (Auto) 0.8 % (0.0-2.0) Sodium Level 140 MMOL/L (136-145) Potassium Level 3.4 MMOL/L (3.5-5.1) L Chloride Level 103 MMOL/L (98-107) Carbon Dioxide Level 29 MMOL/L (21-32) Anion Gap 8 mmol/L (5-15) Blood Urea Nitrogen 22 mg/dL (7-18) H Creatinine 0.7 MG/DL (0.55-1.30) Estimat Glomerular Filtration Rate mL/min (>60) Glucose Level 192 MG/DL (74-106) H Lactic Acid Level 1.40 mmol/L (0.4-2.0) Calcium Level 9.0 MG/DL (8.5-10.1) Total Bilirubin 0.2 MG/DL (0.2-1.0) Aspartate Amino Transf (AST/SGOT) 16 U/L (15-37) Alanine Aminotransferase (ALT/SGPT) 33 U/L (12-78) Alkaline Phosphatase 144 U/L (46-116) H Total Creatine Kinase 143 U/L (26-308) Troponin I 0.015 ng/mL (0.000-0.056) Pro-B-Type Natriuretic Peptide 55 pg/mL (0-125) Total Protein 8.1 G/DL (6.4-8.2) Albumin 4.0 G/DL (3.4-5.0) Globulin 4.1 g/dL Albumin/Globulin Ratio 1.0 (1.0-2.7) Urine Color Pale yellow Urine Appearance Clear Urine pH 6 (4.5-8.0) Urine Specific [place] 1.015 (1.005-1.035) Urine Protein 3+ (NEGATIVE) H Urine Glucose (UA) Negative (NEGATIVE) Urine Ketones Negative (NEGATIVE) Urine Blood 1+ (NEGATIVE) H Urine Nitrite Negative (NEGATIVE) Urine Bilirubin Negative (NEGATIVE) Urine Urobilinogen Normal MG/DL (0.0-1.0) Urine Leukocyte Esterase 1+ (NEGATIVE) H Urine RBC 2-4 /HPF (0 - 2) H Urine WBC 2-4 /HPF (0 - 2) Urine Squamous Epithelial Cells Occasional /LPF Urine Bacteria Occasional /HPF (NONE) Arterial Blood pH 7.350 (7.350-7.450) 7.331 (7.350-7.450) Arterial Blood Partial Pressure CO2 51.7 mmHg (35.0-45.0) H 49.3 mmHg (35.0-45.0) H Arterial Blood Partial Pressure O2 489.7 mmHg (75.0-100.0) H 133.1 mmHg (75.0-100.0) H Arterial Blood HCO3 27.9 mmol/L (22.0-26.0) H 25.5 mmol/L (22.0-26.0) Arterial Blood Oxygen Saturation 99.5 % (95-100) 98.4 % (95-100) Arterial Blood Base Excess 1.3 (-2-2) -0.9 (-2-2) Mk Test Positive Positive Microbiology Date/Time Source Procedure Growth Status 09/18/18 16:00 Nasal Nares Influenza Types A,B Antigen (LOWELL) - Final Complete Height (Feet): 5 Height (Inches): 5.00 Weight (Pounds): 138 Medications Current Medications Medications (Trade) Dose Ordered Sig/Mecca Route PRN Reason Start Time Stop Time Status Last Admin Dose Admin Albuterol/ Ipratropium (Albuterol/ Ipratropium) 3 ml Q4H PRN HHN dyspnea 09/18/18 18:15 09/23/18 18:14 09/19/18 02:55 Amlodipine Besylate (Norvasc) 2.5 mg DAILY ORAL 09/18/18 20:45 10/18/18 20:44 09/19/18 09:18 Atorvastatin Calcium (Lipitor) 40 mg DAILY ORAL 09/19/18 09:00 10/19/18 08:59 09/19/18 09:18 Clopidogrel Bisulfate (Plavix) 75 mg DAILY ORAL 09/19/18 09:00 10/19/18 08:59 09/19/18 09:18 Dextrose (Dextrose 50%) 25 ml Q30M PRN IV Hypoglycemia 09/18/18 18:15 10/18/18 18:14 Dextrose (Dextrose 50%) 50 ml Q30M PRN IV Hypoglycemia 09/18/18 18:15 10/18/18 18:14 Fluoxetine HCl (PROzac) 20 mg DAILY ORAL 09/19/18 09:00 10/19/18 08:59 09/19/18 09:18 Heparin Sodium (Porcine) (Heparin 5000 units/ml) 5,000 units EVERY 12 HOURS SUBQ 09/18/18 21:00 10/18/18 20:59 09/19/18 09:22 Hydroxyzine HCl (Atarax) 25 mg Q6H PRN ORAL Itching/Pruritis 09/18/18 20:45 10/18/18 20:44 Lidocaine (Xylocaine 1% MPF 5ml) 10 ml Q4H PRN HHN cough 09/19/18 13:15 10/19/18 13:14 Lorazepam (Ativan 2mg/ml 1ml) 0.5 mg Q4H PRN IV For Anxiety 09/18/18 18:15 09/25/18 18:14 Methylprednisolone Sodium Succinate (Solu-MEDROL) 60 mg EVERY 6 HOURS IV 09/19/18 00:00 10/19/18 00:00 09/19/18 11:24 Montelukast Sodium (Singulair) 10 mg DAILY ORAL 09/19/18 09:00 10/19/18 08:59 09/19/18 09:18 Nitroglycerin (Ntg) 0.4 mg Q5M X 3 DOSES PRN SL Prn Chest Pain 09/18/18 18:15 10/18/18 18:14 Ondansetron HCl (Zofran) 4 mg Q6H PRN IVP Nausea & Vomiting 09/18/18 18:15 10/18/18 18:14 Pantoprazole (Protonix) 40 mg DAILY ORAL 09/19/18 09:00 10/19/18 08:59 09/19/18 09:16 Phenytoin (Dilantin) 100 mg BEDTIME ORAL 09/18/18 21:00 10/18/18 20:59 09/18/18 22:21 Phenytoin (Dilantin) 100 mg DAILY ORAL 09/19/18 09:00 10/19/18 08:59 09/19/18 09:16 Piperacillin Sod/ Tazobactam Sod 3.375 gm/Sodium Chloride 110 ml @ 27.5 mls/hr EVERY 8 HOURS IVPB 09/18/18 22:00 09/23/18 21:59 09/19/18 05:45 Pregabalin (Lyrica) 50 mg Q12HR ORAL 09/18/18 21:00 10/18/18 20:59 09/19/18 09:18 Promethazine HCl/ Codeine (Phenergan with Codeine) 5 ml Q8H PRN ORAL For Cough 09/18/18 20:45 10/18/18 20:44 09/19/18 04:13 Salmeterol Xinafoate/ Fluticasone (Advair 250/50 Diskus) 1 puffs EVERY 12 HOURS INH 09/18/18 21:00 10/18/18 20:59 09/19/18 09:11 Temazepam (Restoril) 15 mg HSPRN PRN ORAL Insomnia 09/18/18 18:15 09/25/18 18:14 Theophylline (Fabrice-Dur) 100 mg EVERY 12 HOURS ORAL 09/18/18 21:00 10/18/18 20:59 09/19/18 09:18 Assessment/Plan Problem List: (1) Acute respiratory failure ICD Codes: J96.00 - Acute respiratory failure, unspecified whether with hypoxia or hypercapnia SNOMED: 28737380 (2) Acute asthma exacerbation ICD Codes: J45.901 - Unspecified asthma with (acute) exacerbation SNOMED: 328732994 (3) Bronchitis ICD Codes: J40 - Bronchitis, not specified as acute or chronic SNOMED: 76118426 (4) Seizure disorder ICD Codes: G40.909 - Epilepsy, unspecified, not intractable, without status epilepticus SNOMED: 404341119 (5) Anxiety ICD Codes: F41.9 - Anxiety disorder, unspecified SNOMED: 13966518 (6) HTN (hypertension) ICD Codes: I10 - Essential (primary) hypertension SNOMED: 94160263 Assessment/Plan Respiratory treatment check sputum IV steroids iv abx symptomatic treatment check electrolytes Luis A Juares MD Sep 19, 2018 13:29
--- NOTE | 2018-09-19 14:47 | NUR ---
CASE MANAGEMENT: REVIEW 83/F BIBA FROM HOME CC: DYSPNEA . RESP DISTRESS SI: ASTHMA EXACERBATION T 98.5 HR 110 BP 32 BP 162/83 SAT 96% BIPAP FIO2 100 WBC 11.7 K 3.4 ABG: PH 7.350 PCO2 51.7 PO2 489.7 HCO3 27.9 IS: SOLU MEDROL IV Q6HR PROTONIX PO QD PLAVIX PO QD INTERQUAL CRITERIA MET: PATIENT ADMITTED TO STEP DOWN 09/18/2018 DCP: PATIENT IS FROM HOME CASE MANAGEMENT: REVIEW SI: ASTHMA EXACERBATION T 98.9 HR 87 RR 24 BP 147/81 SAT 94% NC/5L IS: SOLU MEDROL IV Q6HR PROTONIX PO QD PLAVIX PO QD STEP DOWN STATUS DCP: PATIENT IS FROM HOME
--- NOTE | 2018-09-19 16:16 | Cardiology Report ---
APPROVED REPORT EKG Measurement Heart [id number] Sinus tachycardia Possible Left atrial enlargement Borderline ECG
[2018-09-19] MEDS ORDERED: Nitroglycerin Subl 0.4mg tab SL PRN (16:30)
--- NOTE | 2018-09-19 16:45 | NUR ---
TRANSFER TO FLOOR: Patient transferred to Telemetry , per Dr. Juares. Report given to AMMY Vega. Belongings given to patient and medications given to AMMY Vega. Patient stable and in no distress.
[2018-09-19 17:00] VITALS: BP 160/70
[2018-09-19] MEDS ORDERED: LORazepam Inj 2mg/ml 1ml IV PRN (18:15)
--- NOTE | 2018-09-19 19:21 | NUR ---
HAND-OFF: Report given to AMMY JONES.
--- NOTE | 2018-09-19 19:22 | NUR ---
NURSE NOTES: Received report from AMMY Vega. Patient in bed resting with no signs of acute distress noted. Respiration even and non labored on 3L NC. AOx4. Vitals signs stable. Bed in lowest position. Call light within reach. Will continue to monitor.
[2018-09-19 20:00] VITALS: BP 144/75
[2018-09-19] MEDS ORDERED: HydrOXYzine tab 25mg tab ORAL PRN (20:45)
--- NOTE | 2018-09-19 21:01 | Consultation ---
History of Present Illness General Chief Complaint: Dyspnea/Respdistress Present Illness HPI 83-year-old female with history of depression, anxiety and asthma, presenting with shortness of breath. The pt lives at home and while she was doing pt she started having sob. the pt endorses anxiety and depressive sxs. she takes prozac and ativan. the pt is forgetful however was able to answer the question, the pt is suicidal. compliant with meds Allergies: Coded Allergies: VANCOMYCIN (Verified Allergy, Unknown, red eyes, itchying, 10/10/16) Uncoded Allergies: Canned Food (Allergy, Unknown, 03/22/18) Nausea/Vomitting/Indigestion Medication History Scheduled Albuterol Sulfate (Ventolin Hfa), 1 PUFF INH EVERY 6 HOURS Albuterol Sulfate (Ventolin Hfa), 1 PUFF INH EVERY 6 HOURS, (Reported) Amlodipine Besylate* (Amlodipine Besylate*), 2.5 MG ORAL DAILY, (Reported) Atorvastatin (Lipitor), 40 MG ORAL DAILY, (Reported) Clopidogrel* (Clopidogrel*), 75 MG ORAL DAILY, (Reported) Cyclosporine (Restasis), 1 DROP BOTH EYES EVERY 12 HOURS, (Reported) Dexlansoprazole (Dexilant), 60 MG ORAL QHS, (Reported) Dexlansoprazole (Dexilant), 60 MG ORAL DAILY, (Reported) Doxycycline Hyclate (Doxycycline Hyclate), 100 MG PO BID Fluoxetine Hcl* (Prozac*), 20 MG ORAL DAILY, (Reported) Fluticasone/Salmeterol (Advair 250-50 Diskus), 1 PUFF INH EVERY 12 HOURS Labetalol Hcl* (Labetalol Hcl*), 100 MG IV DAILY, (Reported) Levocetirizine Dihydrochloride (Levocetirizine Dihydrochloride), 5 MG ORAL DAILY , (Reported) Levofloxacin (Levofloxacin*), 750 MG ORAL DAILY, (Reported) Loratadine (Loratadine), 10 MG PO DAILY, (Reported) Losartan/Hydrochlorothiazide (Losartan-Hctz 100-12.5 Mg Tab), 1 TAB ORAL DAILY, (Reported) Montelukast Sodium (Montelukast Sodium), 10 MG ORAL DAILY, (Reported) Montelukast Sodium* (Montelukast Sodium*), 10 MG ORAL DAILY, (Reported) Pantoprazole* (Protonix*), 40 MG ORAL DAILY, (Reported) Phenytoin Sodium Extended* (Phenytoin Sodium Extended*), 100 MG ORAL DAILY, ( Reported) Phenytoin Sodium Extended* (Phenytoin Sodium Extended*), 100 MG ORAL BEDTIME, ( Reported) Pregabalin (Lyrica), 50 MG ORAL Q12HR, (Reported) Theophylline (Theodur*), 100 MG ORAL EVERY 12 HOURS Valsartan/Hydrochlorothiazide 160-12.5 (Valsartan-Hctz 160-12.5 Mg Tab), 1 TAB ORAL Q12HR, (Reported) Scheduled PRN Codeine/Promethazine Hcl* (Promethazine-Codeine Syrup*), 5 ML ORAL Q8HR PRN for For Cough, (Reported) Hydroxyzine HCl (Hydroxyzine HCl), 25 MG ORAL Q6H PRN Miscellaneous Medications Isosorbide (Isosorbide), 30 MG MC, (Reported) Methylprednisolone (Medrol), 4 MG PO, (Reported) Olopatadine HCl (Pazeo), 2.5 ML OP, (Reported) [bevespi], (Reported) Patient History History Provided By: Patient, Medical Record, PMD Healthcare decision maker Resuscitation status Full Code Advanced Directive on File Past Medical/Surgical History Past Medical/Surgical History: (1) HTN (hypertension) (2) Acute respiratory failure (3) GERD (gastroesophageal reflux disease) (4) Hemoptysis (5) COPD exacerbation (6) Acute asthma exacerbation (7) CAD (coronary artery disease) (8) Seizure disorder (9) Hemorrhagic stroke (10) Cerebral vascular disease (11) Vascular dementia (12) Anxiety (13) MDD (major depressive disorder), recurrent episode, moderate (14) Bacteremia (15) Pleural effusion, left (16) Bronchitis Review of Systems Psychiatric: Reports: prior hx, anxiety, depressed feelings Physical Exam General Appearance: WD/WN, no apparent distress, alert Neurologic: oriented x 3, responsive, depressed affect Last 24 Hour Vital Signs Date Time Temp Pulse Resp B/P (MAP) Pulse Ox O2 Delivery O2 Flow Rate FiO2 09/19/18 20:36 98 Nasal Cannula 4.0 36 09/19/18 20:36 Nasal Cannula 4.0 36 09/19/18 17:01 Nasal Cannula 5.0 09/19/18 17:01 5.0 09/19/18 17:00 97.9 91 18 160/70 (100) 98 09/19/18 15:31 85 09/19/18 12:00 Nasal Cannula 5.0 09/19/18 12:00 5.0 09/19/18 12:00 98.9 87 24 130/75 (93) 98 87 09/19/18 11:24 84 09/19/18 09:18 78 147/81 09/19/18 08:00 Nasal Cannula 5.0 09/19/18 08:00 98.4 78 25 147/81 (103) 94 78 09/19/18 08:00 5.0 09/19/18 07:33 82 09/19/18 06:51 86 27 96 Facial 40 09/19/18 04:00 98.8 83 20 140/61 (87) 95 83 09/19/18 04:00 Bi-pap 100.0 09/19/18 04:00 100 09/19/18 03:22 91 09/19/18 02:58 85 23 96 Bi-pap 40 09/19/18 02:50 120 32 96 Facial 42 09/19/18 02:50 120 32 96 Bi-pap 40 09/19/18 00:00 98.4 88 16 112/63 (79) 94 88 09/19/18 00:00 Bi-pap 100.0 09/18/18 23:25 104 Intake and Output 09/18/18 09/19/18 19:00 07:00 Intake Total 144.40 ml Balance 144.40 ml IV Total 144.40 ml # Voids 1 Height (Feet): 5 Height (Inches): 5.00 Weight (Pounds): 138 Medications Current Medications Medications (Trade) Dose Ordered Sig/[place]cca Route PRN Reason Start Time Stop Time Status Last Admin Dose Admin Albuterol/ Ipratropium (Albuterol/ Ipratropium) 3 ml Q4H PRN HHN dyspnea 09/19/18 18:15 09/23/18 18:14 Amlodipine Besylate (Norvasc) 2.5 mg DAILY ORAL 09/20/18 09:00 10/18/18 20:44 Atorvastatin Calcium (Lipitor) 40 mg DAILY ORAL 09/20/18 09:00 10/19/18 08:59 Clopidogrel Bisulfate (Plavix) 75 mg DAILY ORAL 09/20/18 09:00 10/19/18 08:59 Dextrose (Dextrose 50%) 25 ml Q30M PRN IV Hypoglycemia 09/19/18 16:45 10/18/18 18:14 Dextrose (Dextrose 50%) 50 ml Q30M PRN IV Hypoglycemia 09/19/18 16:45 10/18/18 18:14 Fluoxetine HCl (PROzac) 20 mg DAILY ORAL 09/20/18 09:00 10/19/18 08:59 Heparin Sodium (Porcine) (Heparin 5000 units/ml) 5,000 units EVERY 12 HOURS SUBQ 09/19/18 21:00 10/18/18 20:59 Hydroxyzine HCl (Atarax) 25 mg Q6H PRN ORAL Itching/Pruritis 09/19/18 20:45 10/18/18 20:44 Lidocaine (Xylocaine 1% MPF 5ml) 10 ml Q4H PRN HHN cough 09/19/18 17:15 10/19/18 13:14 Lorazepam (Ativan 2mg/ml 1ml) 0.5 mg Q4H PRN IV For Anxiety 09/19/18 18:15 09/25/18 18:14 Methylprednisolone Sodium Succinate (Solu-MEDROL) 60 mg EVERY 6 HOURS IV 09/19/18 18:00 10/19/18 00:00 09/19/18 17:41 Montelukast Sodium (Singulair) 10 mg DAILY ORAL 09/20/18 09:00 10/19/18 08:59 Nitroglycerin (Ntg) 0.4 mg Q5M X 3 DOSES PRN SL Prn Chest Pain 09/19/18 16:30 10/18/18 18:14 Ondansetron HCl (Zofran) 4 mg Q6H PRN IVP Nausea & Vomiting 09/19/18 18:15 10/18/18 18:14 Pantoprazole (Protonix) 40 mg DAILY ORAL 09/20/18 09:00 10/19/18 08:59 Phenytoin (Dilantin) 100 mg BEDTIME ORAL 09/19/18 21:00 10/18/18 20:59 Phenytoin (Dilantin) 100 mg DAILY ORAL 09/20/18 09:00 10/19/18 08:59 Piperacillin Sod/ Tazobactam Sod 3.375 gm/Sodium Chloride 110 ml @ 27.5 mls/hr EVERY 8 HOURS IVPB 09/19/18 22:00 09/23/18 21:59 Pregabalin (Lyrica) 50 mg Q12HR ORAL 09/19/18 21:00 10/18/18 20:59 Promethazine HCl/ Codeine (Phenergan with Codeine) 5 ml Q8H PRN ORAL For Cough 09/19/18 20:45 10/18/18 20:44 Salmeterol Xinafoate/ Fluticasone (Advair 250/50 Diskus) 1 puffs EVERY 12 HOURS INH 09/19/18 21:00 10/18/18 20:59 Temazepam (Restoril) 15 mg HSPRN PRN ORAL Insomnia 09/19/18 18:15 09/25/18 18:14 Theophylline (Fabrice-Dur) 100 mg EVERY 12 HOURS ORAL 09/19/18 21:00 10/18/18 20:59 Assessment/Plan Problem List: (1) MDD (major depressive disorder), recurrent episode, moderate ICD Codes: F33.1 - Major depressive disorder, recurrent, moderate SNOMED: 31711851, [id number] (2) Anxiety ICD Codes: F41.9 - Anxiety disorder, unspecified SNOMED: 10856043 Assessment/Plan prozac 20mg qam ativan prn provided Sherin Corea MD Sep 19, 2018 21:01
[2018-09-19] MEDS: Phenytoin 100mg cap ORAL SCH (21:29)
[2018-09-19] MEDS: Piperacillin/Tazobactam 3.375 GM in NS 110 ML IVPB SCH (21:32)
--- NOTE | 2018-09-19 22:00 | NUR ---
NURSE NOTES: Patient demands to keep her home medication in her bedside. Dr. Garcia made aware and allowed the patient to keep her meds. Also, informed Dr. Garcia that patient demands to continue her home eye drops(Cyclosporine Q12H), and Albuterol sulfate 18gm inhaler Q6HR, Dr. Garcia allowed to continue requested home med.
[2018-09-20] VITALS: BP 138/77
[2018-09-20] MEDS: Solu-MEDROL 125mg Inj IV SCH ×4 (00:12→17:36)
[2018-09-20] MEDS ORDERED: Albuterol 90mcg Inhaler 8gm INH SCH (01:00)
[2018-09-20] MEDS: Albuterol/Ipratropium 3ml neb HHN PRN ×2 (03:45→14:18)
[2018-09-20 04:00] VITALS: BP 145/90
[2018-09-20] MEDS: Piperacillin/Tazobactam 3.375 GM in NS 110 ML IVPB SCH ×3 (05:53→22:00)
--- NOTE | 2018-09-20 07:10 | NUR ---
HAND-OFF: Report given to AMMY Burger.
--- NOTE | 2018-09-20 07:15 | NUR ---
NURSE NOTES: Pt received from AMMY Rodriguez alert and oriented x3 with no complaints or s/s of pain, SOB, or n/v. IV site asymptomatic and patent, running to Zosyn as per order. Per night nurse and anaesthesiologist, pt refused AM labs. Bed in lowest position, call light and belongings within reach.
[2018-09-20 08:00] VITALS: BP 148/69
[2018-09-20] MEDS: Advair 250/50 Inhaler - 14 dose INH SCH ×2 (08:56→21:45)
[2018-09-20] MEDS ORDERED: Cyclopentolate 1% Opth Sol 2ml BOTH EYES SCH (09:00)
[2018-09-20] MEDS ORDERED: Atorvastatin 20mg tab ORAL SCH ×2 (09:00→21:30)
[2018-09-20] MEDS ORDERED: Montelukast 10mg tablet ORAL SCH ×2 (09:00→21:30)
[2018-09-20] MEDS: Lyrica 50mg cap ORAL SCH (09:33)
[2018-09-20] MEDS: Theophylline ER 100mg ORAL SCH ×2 (09:33→20:52)
[2018-09-20] MEDS: Phenytoin 100mg cap ORAL SCH ×2 (09:34→20:52)
[2018-09-20] MEDS: Heparin 5000 units/ml inj SUBQ SCH ×2 (09:41→20:52)
[2018-09-20 12:00] VITALS: BP 134/64
--- NOTE | 2018-09-20 12:38 | Pulmonology Progress Note ---
Assessment/Plan Problems: (1) Acute respiratory failure (2) Acute asthma exacerbation (3) Bronchitis (4) Seizure disorder (5) Anxiety (6) HTN (hypertension) Assessment/Plan improving same dose steroids check sputum Lidocain inhalation check electrolytes Subjective ROS Limited/Unobtainable: No Constitutional: Reports: no symptoms HEENT: Repors: no symptoms Respiratory: Reports: no symptoms Allergies: Coded Allergies: VANCOMYCIN (Verified Allergy, Unknown, red eyes, itchying, 10/10/16) Uncoded Allergies: Canned Food (Allergy, Unknown, 03/22/18) Nausea/Vomitting/Indigestion Objective Last 24 Hour Vital Signs Date Time Temp Pulse Resp B/P (MAP) Pulse Ox O2 Delivery O2 Flow Rate FiO2 09/20/18 09:34 86 148/69 09/20/18 09:02 95 22 98 Nasal Cannula 3.0 32 09/20/18 09:00 Nasal Cannula 3.0 32 09/20/18 09:00 96 22 96 Room Air 21 09/20/18 09:00 98 Nasal Cannula 3.0 32 09/20/18 08:00 91 09/20/18 04:00 97.6 93 19 145/90 (108) 95 09/20/18 04:00 87 09/20/18 04:00 3.0 09/20/18 03:55 90 18 99 Nasal Cannula 3.0 32 09/20/18 03:45 93 18 99 Nasal Cannula 3.0 32 09/20/18 01:38 Nasal Cannula 3.0 32 09/20/18 01:38 Nasal Cannula 3.0 32 09/20/18 00:00 85 09/20/18 00:00 98.2 68 18 138/77 (97) 97 09/20/18 00:00 3.0 09/19/18 22:28 90 18 99 Nasal Cannula 3.0 32 09/19/18 22:26 86 18 99 Nasal Cannula 3.0 32 09/19/18 21:00 Nasal Cannula 3.0 09/19/18 20:36 98 Nasal Cannula 4.0 36 09/19/18 20:36 Nasal Cannula 4.0 36 09/19/18 20:00 79 09/19/18 20:00 3.0 09/19/18 20:00 98.3 73 18 144/75 (98) 97 09/19/18 17:01 Nasal Cannula 5.0 09/19/18 17:01 5.0 09/19/18 17:00 97.9 91 18 160/70 (100) 98 09/19/18 15:31 85 Intake and Output 09/19/18 09/20/18 18:59 06:59 Intake Total 603.1 ml 480 ml Balance 603.1 ml 480 ml Intake Oral 500 ml 480 ml IV Total 103.1 ml # Voids 2 HEENT: normocephalic, atraumatic Respiratory/Chest: chest wall non-tender, lungs clear Breasts: no masses Cardiovascular: normal peripheral pulses, normal rate Abdomen: normal bowel sounds, soft, non tender Genitourinary: normal external genitalia Extremities: no clubbing 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 Microbiology Date/Time Source Procedure Growth Status 09/18/18 15:35 Blood Blood Culture - Preliminary NO GROWTH AFTER 24 HOURS Resulted 09/18/18 15:20 Blood Blood Culture - Preliminary NO GROWTH AFTER 24 HOURS Resulted 09/18/18 16:00 Nasal Nares Influenza Types A,B Antigen (LOWELL) - Final Complete Current Medications Medications (Trade) Dose Ordered Sig/Mecca Route PRN Reason Start Time Stop Time Status Last Admin Dose Admin Albuterol/ Ipratropium (Albuterol/ Ipratropium) 3 ml Q4H PRN HHN dyspnea 09/19/18 18:15 09/23/18 18:14 09/20/18 03:45 Amlodipine Besylate (Norvasc) 2.5 mg DAILY ORAL 09/20/18 09:00 10/18/18 20:44 09/20/18 09:34 Atorvastatin Calcium (Lipitor) 40 mg DAILY ORAL 09/20/18 09:00 10/19/18 08:59 Clopidogrel Bisulfate (Plavix) 75 mg DAILY ORAL 09/20/18 09:00 10/19/18 08:59 09/20/18 09:33 Dextrose (Dextrose 50%) 25 ml Q30M PRN IV Hypoglycemia 09/19/18 16:45 10/18/18 18:14 Dextrose (Dextrose 50%) 50 ml Q30M PRN IV Hypoglycemia 09/19/18 16:45 10/18/18 18:14 Fluoxetine HCl (PROzac) 20 mg DAILY ORAL 09/20/18 09:00 10/19/18 08:59 09/20/18 09:33 Heparin Sodium (Porcine) (Heparin 5000 units/ml) 5,000 units EVERY 12 HOURS SUBQ 09/19/18 21:00 10/18/18 20:59 09/20/18 09:41 Hydroxyzine HCl (Atarax) 25 mg Q6H PRN ORAL Itching/Pruritis 09/19/18 20:45 10/18/18 20:44 Lidocaine (Xylocaine 1% MPF 5ml) 10 ml Q4H PRN HHN cough 09/19/18 17:15 10/19/18 13:14 Lorazepam (Ativan 2mg/ml 1ml) 0.5 mg Q4H PRN IV For Anxiety 09/19/18 18:15 09/25/18 18:14 Methylprednisolone Sodium Succinate (Solu-MEDROL) 60 mg EVERY 6 HOURS IV 09/19/18 18:00 10/19/18 00:00 09/20/18 05:53 Montelukast Sodium (Singulair) 10 mg DAILY ORAL 09/20/18 09:00 10/19/18 08:59 Nitroglycerin (Ntg) 0.4 mg Q5M X 3 DOSES PRN SL Prn Chest Pain 09/19/18 16:30 10/18/18 18:14 Ondansetron HCl (Zofran) 4 mg Q6H PRN IVP Nausea & Vomiting 09/19/18 18:15 10/18/18 18:14 Pantoprazole (Protonix) 40 mg DAILY ORAL 09/20/18 09:00 10/19/18 08:59 09/20/18 09:34 Phenytoin (Dilantin) 100 mg BEDTIME ORAL 09/19/18 21:00 10/18/18 20:59 09/19/18 21:29 Phenytoin (Dilantin) 100 mg DAILY ORAL 09/20/18 09:00 10/19/18 08:59 09/20/18 09:34 Piperacillin Sod/ Tazobactam Sod 3.375 gm/Sodium Chloride 110 ml @ 27.5 mls/hr EVERY 8 HOURS IVPB 09/19/18 22:00 09/23/18 21:59 09/20/18 05:53 Pregabalin (Lyrica) 50 mg Q12HR ORAL 09/19/18 21:00 10/18/18 20:59 09/20/18 09:33 Promethazine HCl/ Codeine (Phenergan with Codeine) 5 ml Q8H PRN ORAL For Cough 09/19/18 20:45 10/18/18 20:44 Salmeterol Xinafoate/ Fluticasone (Advair 250/50 Diskus) 1 puffs EVERY 12 HOURS INH 09/19/18 21:00 10/18/18 20:59 09/20/18 08:56 Temazepam (Restoril) 15 mg HSPRN PRN ORAL Insomnia 09/19/18 18:15 09/25/18 18:14 Theophylline (Fabrice-Dur) 100 mg EVERY 12 HOURS ORAL 09/19/18 21:00 10/18/18 20:59 09/20/18 09:33 Luis A Juares MD Sep 20, 2018 12:38
[2018-09-20 16:00] VITALS: BP 138/92
--- NOTE | 2018-09-20 16:40 | Internal Med Progress Note ---
Subjective Date of Service: Sep 20, 2018 Physician Name Hank Toure Attending Physician Shlomo Garcia MD Current Medications Medications (Trade) Dose Ordered Sig/Mecca Route PRN Reason Start Time Stop Time Status Last Admin Dose Admin Albuterol/ Ipratropium (Albuterol/ Ipratropium) 3 ml Q4H PRN HHN dyspnea 09/19/18 18:15 09/23/18 18:14 09/20/18 14:18 Amlodipine Besylate (Norvasc) 2.5 mg DAILY ORAL 09/20/18 09:00 10/18/18 20:44 09/20/18 09:34 Atorvastatin Calcium (Lipitor) 40 mg DAILY ORAL 09/20/18 09:00 10/19/18 08:59 Clopidogrel Bisulfate (Plavix) 75 mg DAILY ORAL 09/20/18 09:00 10/19/18 08:59 09/20/18 09:33 Dextrose (Dextrose 50%) 25 ml Q30M PRN IV Hypoglycemia 09/19/18 16:45 10/18/18 18:14 Dextrose (Dextrose 50%) 50 ml Q30M PRN IV Hypoglycemia 09/19/18 16:45 10/18/18 18:14 Fluoxetine HCl (PROzac) 20 mg DAILY ORAL 09/20/18 09:00 10/19/18 08:59 09/20/18 09:33 Heparin Sodium (Porcine) (Heparin 5000 units/ml) 5,000 units EVERY 12 HOURS SUBQ 09/19/18 21:00 10/18/18 20:59 09/20/18 09:41 Hydroxyzine HCl (Atarax) 25 mg Q6H PRN ORAL Itching/Pruritis 09/19/18 20:45 10/18/18 20:44 Lidocaine (Xylocaine 1% MPF 5ml) 10 ml Q4H PRN HHN cough 09/19/18 17:15 10/19/18 13:14 Lorazepam (Ativan 2mg/ml 1ml) 0.5 mg Q4H PRN IV For Anxiety 09/19/18 18:15 09/25/18 18:14 Methylprednisolone Sodium Succinate (Solu-MEDROL) 60 mg EVERY 6 HOURS IV 09/19/18 18:00 10/19/18 00:00 09/20/18 13:09 Montelukast Sodium (Singulair) 10 mg DAILY ORAL 09/20/18 09:00 10/19/18 08:59 Nitroglycerin (Ntg) 0.4 mg Q5M X 3 DOSES PRN SL Prn Chest Pain 09/19/18 16:30 10/18/18 18:14 Ondansetron HCl (Zofran) 4 mg Q6H PRN IVP Nausea & Vomiting 09/19/18 18:15 10/18/18 18:14 Pantoprazole (Protonix) 40 mg DAILY ORAL 09/20/18 09:00 10/19/18 08:59 09/20/18 09:34 Phenytoin (Dilantin) 100 mg BEDTIME ORAL 09/19/18 21:00 10/18/18 20:59 09/19/18 21:29 Phenytoin (Dilantin) 100 mg DAILY ORAL 09/20/18 09:00 10/19/18 08:59 09/20/18 09:34 Piperacillin Sod/ Tazobactam Sod 3.375 gm/Sodium Chloride 110 ml @ 27.5 mls/hr EVERY 8 HOURS IVPB 09/19/18 22:00 09/23/18 21:59 09/20/18 15:00 Pregabalin (Lyrica) 50 mg Q12HR ORAL 09/19/18 21:00 10/18/18 20:59 09/20/18 09:33 Promethazine HCl/ Codeine (Phenergan with Codeine) 5 ml Q8H PRN ORAL For Cough 09/19/18 20:45 10/18/18 20:44 Salmeterol Xinafoate/ Fluticasone (Advair 250/50 Diskus) 1 puffs EVERY 12 HOURS INH 09/19/18 21:00 10/18/18 20:59 09/20/18 08:56 Temazepam (Restoril) 15 mg HSPRN PRN ORAL Insomnia 09/19/18 18:15 09/25/18 18:14 Theophylline (Fabrice-Dur) 100 mg EVERY 12 HOURS ORAL 09/19/18 21:00 10/18/18 20:59 09/20/18 09:33 Allergies: Coded Allergies: VANCOMYCIN (Verified Allergy, Unknown, red eyes, itchying, 10/10/16) Uncoded Allergies: Canned Food (Allergy, Unknown, 03/22/18) Nausea/Vomitting/Indigestion Subjective 83 YO F with history of asthma admitted with shortness of breath. Cover for Int Med-Dr Garcia. Objective Last Vital Signs Date Time Temp Pulse Resp B/P (MAP) Pulse Ox O2 Delivery O2 Flow Rate FiO2 09/20/18 14:19 74 22 96 Room Air 21 09/20/18 09:34 148/69 09/20/18 09:02 3.0 09/20/18 08:00 98.5 Microbiology Date/Time Source Procedure Growth Status 09/18/18 15:35 Blood Blood Culture - Preliminary NO GROWTH AFTER 24 HOURS Resulted 09/18/18 15:20 Blood Blood Culture - Preliminary NO GROWTH AFTER 24 HOURS Resulted 09/18/18 16:00 Nasal Nares Influenza Types A,B Antigen (LOWELL) - Final Complete Intake and Output 09/19/18 09/20/18 19:00 07:00 Intake Total 575.6 ml 480 ml Balance 575.6 ml 480 ml Intake Oral 500 ml 480 ml IV Total 75.6 ml # Voids 2 Objective General Appearance: WD/WN, no apparent distress, alert EENT: PERRL/EOMI, normal ENT inspection Neck: non-tender, normal alignment, supple, normal inspection Cardiovascular: normal peripheral pulses, normal rate, regular rhythm, no gallop/murmur, no JVD Respiratory/Chest: respiratory distress, crackles/rales, rhonchi - bilaterally , expiratory wheezing Abdomen: normal bowel sounds, non tender, soft, no organomegaly, no mass Extremities: normal range of motion, non-tender 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 Continue albuterol nebs, theophylline, singulair and solumedrol (2) HTN (hypertension) Assessment & Plan: continue norvasc (3) GERD (gastroesophageal reflux disease) Assessment & Plan: Continue protonix (4) Seizure disorder Assessment & Plan: Continue Dilantin (5) Hemorrhagic stroke (6) Cerebral vascular disease (7) MDD (major depressive disorder), recurrent episode, moderate Assessment & Plan: continue prozac (8) Bronchitis Assessment & Plan: Continue zosyn Status: progressing Hank Toure MD Sep 20, 2018 16:40
--- NOTE | 2018-09-20 19:15 | NUR ---
HAND-OFF: Report given to Ileana Duran RN. Upon rounds, pt was found in the bathroom, washing her feet with towels and water on the floor. RNs asked pt if they could be able to help the patient for her safety but pt refused to accept help.
--- NOTE | 2018-09-20 19:30 | NUR ---
NURSE NOTES: Report received from Tao GIMENEZ. Pt is found in bathroom upon entering room. Pt is attempting to wash feet with towels and some water on the floor. Both nurses attempted to help pt and patient refused help. Pt is awake, alert, and oriented x4. Pt is on room air and breathing is even and unlabored. No acute distress noted. IV site is asymptomatic, patent, and intact. Pt has non-slip socks in place. Bed placed in lowest position with brake engaged and side rails up x2. Call light and side table placed within reach. Will continue to monitor.
[2018-09-20 20:00] VITALS: BP 164/104
--- NOTE | 2018-09-20 21:14 | NUR ---
NURSE NOTES: Pt stating that home medication reconciliation was not done correctly. Per patient, she takes Montelukast 10mg PO QHS, atorvastatin 40mg PO QHS, and phenytoin 200mg QHS and 100mg in AM. Pt is requesting that MD Garcia is contacted regarding ordering medications. MD Garcia notified of pt request and per MD, okay to continue all home medications as requested by patient. Orders noted and carried out.
[2018-09-20] MEDS ORDERED: Phenytoin 100mg cap ORAL SCH (21:30)
[2018-09-21] VITALS: BP 147/88
--- NOTE | 2018-09-21 00:13 | General Progress Note ---
Assessment/Plan Problem List: (1) MDD (major depressive disorder), recurrent episode, moderate ICD Codes: F33.1 - Major depressive disorder, recurrent, moderate SNOMED: 10323951, [id number] (2) Anxiety ICD Codes: F41.9 - Anxiety disorder, unspecified SNOMED: 33741880 Assessment/Plan prozac 20mg qam ativan prn provided ro.st Subjective Date patient seen: Sep 20, 2018 Neurologic/Psychiatric: Reports: anxiety, depressed, emotional problems Allergies: Coded Allergies: VANCOMYCIN (Verified Allergy, Unknown, red eyes, itchying, 10/10/16) Uncoded Allergies: Canned Food (Allergy, Unknown, 03/22/18) Nausea/Vomitting/Indigestion Objective Last 24 Hour Vital Signs Date Time Temp Pulse Resp B/P (MAP) Pulse Ox O2 Delivery O2 Flow Rate FiO2 09/20/18 21:46 88 20 96 Nasal Cannula 3.0 32 09/20/18 21:44 Nasal Cannula 3.0 32 09/20/18 21:44 88 20 96 Nasal Cannula 3.0 32 09/20/18 21:42 97 Nasal Cannula 3.0 32 09/20/18 21:00 Nasal Cannula 3.0 09/20/18 20:00 97.5 87 18 164/104 (124) 95 09/20/18 20:00 102 09/20/18 16:00 92 09/20/18 16:00 98.5 99 24 138/92 (107) 96 09/20/18 14:19 74 22 96 Room Air 21 09/20/18 12:00 101 09/20/18 12:00 98.5 91 20 134/64 (87) 98 09/20/18 09:34 86 148/69 09/20/18 09:02 95 22 98 Nasal Cannula 3.0 32 09/20/18 09:00 Nasal Cannula 3.0 32 09/20/18 09:00 Nasal Cannula 3.0 09/20/18 09:00 96 22 96 Room Air 21 09/20/18 09:00 98 Nasal Cannula 3.0 32 09/20/18 08:00 98.5 95 21 148/69 (95) 95 09/20/18 08:00 91 09/20/18 04:00 97.6 93 19 145/90 (108) 95 09/20/18 04:00 87 09/20/18 04:00 3.0 09/20/18 03:55 90 18 99 Nasal Cannula 3.0 32 09/20/18 03:45 93 18 99 Nasal Cannula 3.0 32 09/20/18 01:38 Nasal Cannula 3.0 32 09/20/18 01:38 Nasal Cannula 3.0 32 Intake and Output 09/20/18 09/21/18 19:00 07:00 Intake Total 137.5 ml Balance 137.5 ml IV Total 137.5 ml # Voids 3 Height (Feet): 5 Height (Inches): 5.00 Weight (Pounds): 138 General Appearance: no apparent distress, alert Neurologic: oriented x 3, responsive, depressed affect Sherin Holm MD Sep 21, 2018 00:13
--- NOTE | 2018-09-21 00:16 | NUR ---
HAND-OFF: Report given to Brigitte Monterroso RN. Pt is resting in bed in stable condition. No acute distress noted. Endorsed plan of care.
[2018-09-21] MEDS: Solu-MEDROL 125mg Inj IV SCH ×3 (00:30→13:31)
--- NOTE | 2018-09-21 00:54 | NUR ---
NURSE NOTES: patient received. patient in no acute distress at this time. patient resting at this time. patient A&O x4. patient appears to be in no pain at this time. patient IV intact and asymptomatic. bed in lowest position and locked. call light within reach will continue to monitor.
[2018-09-21] MEDS: Promethazine/Codeine 5ml UD ORAL PRN ×2 (01:04→13:31)
[2018-09-21 04:00] VITALS: BP 153/97
[2018-09-21] MEDS: Albuterol/Ipratropium 3ml neb HHN PRN ×2 (04:36→11:12)
[2018-09-21] MEDS: Piperacillin/Tazobactam 3.375 GM in NS 110 ML IVPB SCH ×2 (05:38→13:31)
--- NOTE | 2018-09-21 07:06 | NUR ---
HAND-OFF: Report given to AMMY hunt.
--- NOTE | 2018-09-21 07:23 | NUR ---
NURSE NOTES: Received report from AMMY Briggs. Patient sitting on chair, SR with HR 77, AO x4. No active s/s cardiac, respiratory distress noticed at this time. Denies pain at this time. Bed in lowest position, side rails up x2, call light within reach. IV site asymptomatic, patent, intact. Will continue to monitor.
[2018-09-21 08:00] VITALS: BP 170/82
[2018-09-21] MEDS: Lyrica 50mg cap ORAL SCH (08:18)
[2018-09-21] MEDS: Phenytoin 100mg cap ORAL SCH (08:20)
[2018-09-21] MEDS: Heparin 5000 units/ml inj SUBQ SCH (08:22)
[2018-09-21] MEDS: Theophylline ER 100mg ORAL SCH (08:24)
[2018-09-21] MEDS: Advair 250/50 Inhaler - 14 dose INH SCH (11:13)
--- NOTE | 2018-09-21 11:40 | General Progress Note ---
Assessment/Plan Problem List: (1) MDD (major depressive disorder), recurrent episode, moderate ICD Codes: F33.1 - Major depressive disorder, recurrent, moderate SNOMED: 65927074, 562231138 (2) Anxiety ICD Codes: F41.9 - Anxiety disorder, unspecified SNOMED: 82388789 Status: stable Assessment/Plan Prozac 20mg qam Ativan prn provided ro.st Subjective Neurologic/Psychiatric: Reports: anxiety, depressed Allergies: Coded Allergies: VANCOMYCIN (Verified Allergy, Unknown, red eyes, itchying, 10/10/16) Uncoded Allergies: Canned Food (Allergy, Unknown, 03/22/18) Nausea/Vomitting/Indigestion Subjective the pt is doing well. the pt is compliant with meds. has episodes of anxiety. walking around the room with IV pole Objective Last 24 Hour Vital Signs Date Time Temp Pulse Resp B/P (MAP) Pulse Ox O2 Delivery O2 Flow Rate FiO2 09/21/18 11:26 82 20 100 Room Air 21 09/21/18 11:20 81 20 98 Room Air 21 09/21/18 11:20 80 20 98 Nasal Cannula 3.0 32 09/21/18 11:18 Room Air 21 09/21/18 11:18 98 Room Air 21 09/21/18 11:18 80 20 98 Room Air 21 09/21/18 09:00 Nasal Cannula 3.0 09/21/18 08:19 89 171/82 09/21/18 08:00 98.8 89 20 170/82 (111) 93 09/21/18 04:43 77 20 99 Nasal Cannula 3.0 32 09/21/18 04:35 75 20 95 Room Air 21 09/21/18 04:00 79 09/21/18 04:00 97.0 72 16 153/97 (115) 92 09/21/18 00:00 99 09/21/18 00:00 98.1 82 17 147/88 (107) 98 09/20/18 21:46 88 20 96 Nasal Cannula 3.0 32 09/20/18 21:44 Nasal Cannula 3.0 32 09/20/18 21:44 88 20 96 Nasal Cannula 3.0 32 09/20/18 21:42 97 Nasal Cannula 3.0 32 09/20/18 21:00 Nasal Cannula 3.0 09/20/18 20:00 97.5 87 18 164/104 (124) 95 09/20/18 20:00 102 09/20/18 16:00 92 09/20/18 16:00 98.5 99 24 138/92 (107) 96 09/20/18 14:19 74 22 96 Room Air 21 09/20/18 12:00 101 09/20/18 12:00 98.5 91 20 134/64 (87) 98 Intake and Output 09/20/18 09/21/18 18:59 06:59 Intake Total 137.5 ml 300 ml Balance 137.5 ml 300 ml Intake Oral 300 ml IV Total 137.5 ml # Voids 3 3 Height (Feet): 5 Height (Inches): 5.00 Weight (Pounds): 138 General Appearance: no apparent distress, alert Neurologic: oriented x 3, responsive, depressed affect Sherin Holm MD Sep 21, 2018 11:39
[2018-09-21 12:00] VITALS: BP 155/79
--- NOTE | 2018-09-21 12:46 | Pulmonology Progress Note ---
Assessment/Plan Problems: (1) Acute respiratory failure (2) Acute asthma exacerbation (3) Bronchitis (4) Seizure disorder (5) Anxiety (6) HTN (hypertension) Assessment/Plan improving slowly, sttill wheezing same dose steroids check sputum still pending, Blood culture negative Lidocain inhalation check electrolytes med/surg Subjective ROS Limited/Unobtainable: No Interval Events: slightly better Allergies: Coded Allergies: VANCOMYCIN (Verified Allergy, Unknown, red eyes, itchying, 10/10/16) Uncoded Allergies: Canned Food (Allergy, Unknown, 03/22/18) Nausea/Vomitting/Indigestion Objective Last 24 Hour Vital Signs Date Time Temp Pulse Resp B/P (MAP) Pulse Ox O2 Delivery O2 Flow Rate FiO2 09/21/18 11:26 82 20 100 Room Air 21 09/21/18 11:20 81 20 98 Room Air 21 09/21/18 11:20 80 20 98 Nasal Cannula 3.0 32 09/21/18 11:18 Room Air 21 09/21/18 11:18 98 Room Air 21 09/21/18 11:18 80 20 98 Room Air 21 09/21/18 09:00 Nasal Cannula 3.0 09/21/18 08:19 89 171/82 09/21/18 08:00 98.8 89 20 170/82 (111) 93 09/21/18 04:43 77 20 99 Nasal Cannula 3.0 32 09/21/18 04:35 75 20 95 Room Air 21 09/21/18 04:00 79 09/21/18 04:00 97.0 72 16 153/97 (115) 92 09/21/18 00:00 99 09/21/18 00:00 98.1 82 17 147/88 (107) 98 09/20/18 21:46 88 20 96 Nasal Cannula 3.0 32 09/20/18 21:44 Nasal Cannula 3.0 32 09/20/18 21:44 88 20 96 Nasal Cannula 3.0 32 09/20/18 21:42 97 Nasal Cannula 3.0 32 09/20/18 21:00 Nasal Cannula 3.0 09/20/18 20:00 97.5 87 18 164/104 (124) 95 09/20/18 20:00 102 09/20/18 16:00 92 09/20/18 16:00 98.5 99 24 138/92 (107) 96 09/20/18 14:19 74 22 96 Room Air 21 Intake and Output 09/20/18 09/21/18 18:59 06:59 Intake Total 137.5 ml 300 ml Balance 137.5 ml 300 ml Intake Oral 300 ml IV Total 137.5 ml # Voids 3 3 General Appearance: WD/WN HEENT: normocephalic Respiratory/Chest: chest wall non-tender, lungs clear Cardiovascular: normal peripheral pulses, normal rate Abdomen: normal bowel sounds, soft, non tender Genitourinary: normal external genitalia Extremities: no cyanosis Microbiology Date/Time Source Procedure Growth Status 09/18/18 15:35 Blood Blood Culture - Preliminary NO GROWTH AFTER 48 HOURS Resulted 09/18/18 15:20 Blood Blood Culture - Preliminary NO GROWTH AFTER 48 HOURS Resulted 09/18/18 16:00 Nasal Nares Influenza Types A,B Antigen (LOWELL) - Final Complete Current Medications Medications (Trade) Dose Ordered Sig/[place] Route PRN Reason Start Time Stop Time Status Last Admin Dose Admin Albuterol/ Ipratropium (Albuterol/ Ipratropium) 3 ml Q4H PRN HHN dyspnea 09/19/18 18:15 09/23/18 18:14 09/21/18 11:12 Amlodipine Besylate (Norvasc) 2.5 mg DAILY ORAL 09/20/18 09:00 10/18/18 20:44 09/21/18 08:19 Atorvastatin Calcium (Lipitor) 40 mg BEDTIME ORAL 09/20/18 21:30 10/20/18 21:29 09/20/18 21:59 Clopidogrel Bisulfate (Plavix) 75 mg DAILY ORAL 09/20/18 09:00 10/19/18 08:59 09/21/18 08:19 Dextrose (Dextrose 50%) 25 ml Q30M PRN IV Hypoglycemia 09/19/18 16:45 10/18/18 18:14 Dextrose (Dextrose 50%) 50 ml Q30M PRN IV Hypoglycemia 09/19/18 16:45 10/18/18 18:14 Fluoxetine HCl (PROzac) 20 mg DAILY ORAL 09/20/18 09:00 10/19/18 08:59 09/21/18 08:19 Heparin Sodium (Porcine) (Heparin 5000 units/ml) 5,000 units EVERY 12 HOURS SUBQ 09/19/18 21:00 2/14/19 20:59 09/21/18 08:22 Hydroxyzine HCl (Atarax) 25 mg Q6H PRN ORAL Itching/Pruritis 09/19/18 20:45 10/18/18 20:44 Lidocaine (Xylocaine 1% MPF 5ml) 10 ml Q4H PRN HHN cough 09/19/18 17:15 10/19/18 13:14 Lorazepam (Ativan 2mg/ml 1ml) 0.5 mg Q4H PRN IV For Anxiety 09/19/18 18:15 09/25/18 18:14 Methylprednisolone Sodium Succinate (Solu-MEDROL) 60 mg EVERY 6 HOURS IV 09/19/18 18:00 10/19/18 00:00 09/21/18 05:38 Montelukast Sodium (Singulair) 10 mg QPM ORAL 09/20/18 21:30 10/20/18 21:29 09/20/18 21:59 Nitroglycerin (Ntg) 0.4 mg Q5M X 3 DOSES PRN SL Prn Chest Pain 09/19/18 16:30 10/18/18 18:14 Ondansetron HCl (Zofran) 4 mg Q6H PRN IVP Nausea & Vomiting 09/19/18 18:15 10/18/18 18:14 Pantoprazole (Protonix) 40 mg DAILY ORAL 09/20/18 09:00 10/19/18 08:59 09/21/18 08:19 Phenytoin (Dilantin) 100 mg DAILY ORAL 09/20/18 09:00 10/19/18 08:59 09/21/18 08:20 Phenytoin (Dilantin) 200 mg BEDTIME ORAL 09/21/18 21:00 10/18/18 20:59 Piperacillin Sod/ Tazobactam Sod 3.375 gm/Sodium Chloride 110 ml @ 27.5 mls/hr EVERY 8 HOURS IVPB 09/19/18 22:00 09/23/18 21:59 09/21/18 05:38 Pregabalin (Lyrica) 50 mg Q12HR ORAL 09/19/18 21:00 10/18/18 20:59 09/21/18 08:18 Promethazine HCl/ Codeine (Phenergan with Codeine) 5 ml Q8H PRN ORAL For Cough 09/19/18 20:45 10/18/18 20:44 09/21/18 01:04 Salmeterol Xinafoate/ Fluticasone (Advair 250/50 Diskus) 1 puffs EVERY 12 HOURS INH 09/19/18 21:00 10/18/18 20:59 09/21/18 11:13 Temazepam (Restoril) 15 mg HSPRN PRN ORAL Insomnia 09/19/18 18:15 09/25/18 18:14 Theophylline (Fabrice-Dur) 100 mg EVERY 12 HOURS ORAL 09/19/18 21:00 10/18/18 20:59 09/21/18 08:24 Luis A Juares MD Sep 21, 2018 12:46
[2018-09-21] MEDS ORDERED: Advair 250/50 Inhaler - 14 dose INH SCH (14:00)
--- NOTE | 2018-09-21 15:41 | Discharge Summary ---
Discharge Summary Hospital Course Date of Admission Sep 18, 2018 at 16:28 Date of Discharge Admitting Diagnosis ASTHMA EXACERBATION HPI Megan Harmon is a 83 year old female who was admitted on Sep 18, 2018 at 16: 28 for Asthma Exacerbation Hospital Course Last 24 Hour Vital Signs Date Time Temp Pulse Resp B/P (MAP) Pulse Ox O2 Delivery O2 Flow Rate FiO2 09/21/18 12:00 98.6 84 24 155/79 (104) 99 09/21/18 12:00 84 09/21/18 11:26 82 20 100 Room Air 21 09/21/18 11:20 81 20 98 Room Air 21 09/21/18 11:20 80 20 98 Nasal Cannula 3.0 32 09/21/18 11:18 Room Air 21 09/21/18 11:18 98 Room Air 21 09/21/18 11:18 80 20 98 Room Air 21 09/21/18 09:00 Nasal Cannula 3.0 09/21/18 08:19 89 171/82 09/21/18 08:00 92 09/21/18 08:00 98.8 89 20 170/82 (111) 93 09/21/18 04:43 77 20 99 Nasal Cannula 3.0 32 09/21/18 04:35 75 20 95 Room Air 21 09/21/18 04:00 79 09/21/18 04:00 97.0 72 16 153/97 (115) 92 09/21/18 00:00 99 09/21/18 00:00 98.1 82 17 147/88 (107) 98 09/20/18 21:46 88 20 96 Nasal Cannula 3.0 32 09/20/18 21:44 Nasal Cannula 3.0 32 09/20/18 21:44 88 20 96 Nasal Cannula 3.0 32 09/20/18 21:42 97 Nasal Cannula 3.0 32 09/20/18 21:00 Nasal Cannula 3.0 09/20/18 20:00 97.5 87 18 164/104 (124) 95 09/20/18 20:00 102 09/20/18 16:00 92 09/20/18 16:00 98.5 99 24 138/92 (107) 96 Physical Exam General: No acute distress, awake and alert HEENT: NCAT, sclera anicteric, PERRL, EOMI. Neck: Supple, no significant jugular venous distention, Lungs: Good inspiratory effort,, decrease Wheeze, No Rales. Heart: Regular rate and rhythm, normal S1/S2, no murmur Abdomen: soft, nontender, nondistended. Normoactive bowel sounds. / Rectal: Refused and deferred. Extremities: No Cyanosis , clubbing or edema. Neuro: A&O x 3, Able to move all extremities Skin: warm, no rashes or lesions Psych: Normal mood and affect Active Scripts Medications Dose Route/Sig Max Daily Dose Days Date Category Pazeo (Olopatadine HCl) 2.5 Ml Drops 2.5 Ml OP 09/18/18 Reported [bevespi] 09/18/18 Reported Ventolin Hfa (Albuterol Sulfate) 18 Gm Hfa.aer.ad 1 Puff INH EVERY 6 HOURS 09/18/18 Reported Restasis (Cyclosporine) 1 Each Droperette 1 Drop BOTH EYES EVERY 12 HOURS 09/18/18 Reported Doxycycline Hyclate 100 Mg Tablet 100 Mg PO BID 7 08/19/18 Rx Theodur* (Theophylline) 100 Mg Tab.er.12h 100 Mg ORAL EVERY 12 HOURS 30 08/19/18 Rx Losartan-Hctz 100-12.5 Mg Tab (HCTZ/Losartan Potassium) 1 Each Tablet 1 Tab ORAL DAILY 08/15/18 Reported Levofloxacin* (Levofloxacin) 500 Mg Tablet 750 Mg ORAL DAILY 05/28/18 Reported Medrol (Methylprednisolone) 4 Mg Tab.ds.pk 4 Mg PO 03/27/18 Reported Promethazine-Codeine Syrup* (Codeine/Promethazine Hcl*) 118 Ml Syrup 5 Ml ORAL Q8HR PRN 03/27/18 Reported Protonix* (Pantoprazole) 40 Mg Tablet.dr 40 Mg ORAL DAILY 03/27/18 Reported Loratadine 10 Mg Tab.rapdis 10 Mg PO DAILY 03/21/18 Reported Montelukast Sodium 4 Mg Gran.pack 10 Mg ORAL DAILY 03/21/18 Reported Dexilant (Dexlansoprazole) 60 Mg Cap.dr.bp 60 Mg ORAL DAILY 03/21/18 Reported Lipitor (Atorvastatin Calcium) 80 Mg Tablet 40 Mg ORAL DAILY 03/21/18 Reported Labetalol Hcl* (Labetalol HCl) 5 Mg/1 Ml Vial 100 Mg IV DAILY 03/21/18 Reported Isosorbide 1 Gm Powder 30 Mg MC 03/21/18 Reported Prozac* (Fluoxetine HCl) 20 Mg Capsule 20 Mg ORAL DAILY 02/07/18 Reported Hydroxyzine HCl 25 Mg Tablet 25 Mg ORAL Q6H PRN 30 02/07/18 Rx Advair 250-50 Diskus (Salmeterol Xinafoate/Fluticasone) 1 Each Blst.w.dev 1 Puff INH EVERY 12 HOURS 10/09/17 Rx Clopidogrel* (Clopidogrel Bisulfate) 75 Mg Tablet 75 Mg ORAL DAILY 10/06/17 Reported Ventolin Hfa (Albuterol Sulfate) 18 Gm Hfa.aer.ad 1 Puff INH EVERY 6 HOURS 09/27/17 Rx Dexilant (Dexlansoprazole) 60 Mg Cap.dr.bp 60 Mg ORAL QHS 10/11/16 Reported Valsartan-Hctz 160-12.5 Mg Tab (HCTZ/Valsartan) 1 Each Tablet 1 Tab ORAL Q12HR 10/11/16 Reported Lyrica (Pregabalin) 50 Mg Capsule 50 Mg ORAL Q12HR 10/11/16 Reported Phenytoin Sodium Extended* 100 Mg Capsule 100 Mg ORAL BEDTIME 10/11/16 Reported Phenytoin Sodium Extended* 100 Mg Capsule 100 Mg ORAL DAILY 10/11/16 Reported Levocetirizine Dihydrochloride (Levocetirizine) 5 Mg Tablet 5 Mg ORAL DAILY 10/10/16 Reported Montelukast Sodium* (Montelukast Sodium) 10 Mg Tablet 10 Mg ORAL DAILY 10/10/16 Reported Amlodipine Besylate* (Amlodipine Besylate) 5 Mg Tablet 2.5 Mg ORAL DAILY 10/10/16 Reported Discharge Discharge Disposition Patient was discharged to Shlomo Garcia MD Sep 21, 2018 15:41
[2018-09-21 16:00] VITALS: BP 150/78
--- NOTE | 2018-09-21 17:10 | NUR ---
NURSE NOTES: Patient discharged to home per Dr. Garcia. Patient's ID removed and placed in shredder. IV removed, cardiac technician returned to nurse monitoring. Patient taking taxi with voucher with lawn caretaker in stable condition. Patient discharged with all belongings, lawn caretaker at bed side.
[2018-09-21] MEDS ORDERED: Phenytoin 100mg cap ORAL SCH (21:00)
--- NOTE | 2018-09-21 22:15 | Discharge Summary ---
DATE OF ADMISSION: 09/18/2018 DATE OF DISCHARGE: 09/21/2018 BRIEF HISTORY AND HOSPITAL COURSE: This is an 83-year-old [place] female with past medical history significant for asthma, prior history of hemorrhagic CVA, hypertension, dyslipidemia, GERD, seizure disorder, coronary artery disease, who was presented to the hospital complaining about shortness of breath. Shortly after initial evaluation, the patient was admitted to the hospital with acute respiratory failure, on BiPAP. Throughout the hospital course, the patient was consulted with Dr. Juares from Pulmonary/Critical Care. Broad-spectrum antibiotics and Solu-Medrol were started. The patient's status gradually improved and was subsequently weaned off the BiPAP and discharged home today to be followed by as an outpatient. FINAL DIAGNOSES: 1. Acute respiratory failure. 2. Acute asthma exacerbation. 3. Hypertension. 4. GERD. 5. Seizure disorder. 6. Hemorrhagic stroke. 7. Major depression disorder. 8. Bronchitis. MEDICATIONS ON DISCHARGE: Continue discharge medication list. ACTIVITY: As tolerated. DIET: Would be cardiac diet. FOLLOWUP: The patient was advised to follow up with her primary doctor within one week. Shlomo Garcia M.D. DR: Abdirizak JOB#: [id number] CC:
--- NOTE | 2018-09-24 22:54 | Diagnostic Imaging Report ---
APPROVED REPORT CPT Code: 28167 Present Symptoms Shortness of breath RIGHT LEG: Venous imaging reveals a patent deep venous system. There is no evidence of thrombus within the femoral, popliteal or tibial segments. The greater saphenous vein is also within normal limits. Doppler indicates normal spontaneous flow within these segments. LEFT LEG: Venous imaging reveals recanalized chronic thrombus in the superficial femoral vein. Large collateral vein noted anterior to the superficial femoral artery. The remainder of the deep venous system is within normal limits. There is no evidence of thrombus in the common femoral, popliteal or calf veins. The greater saphenous vein is also within normal limits. Doppler indicates normal spontaneous flow within these segments. There is no evidence of acute deep vein thrombosis.
== END 2018-09-21 17:20 | disposition home or self-care (01) | DRG 202 ==
LOC: EDBD 15:31 → EMR 16:14 → 2W 16:28 → EDBEDREQ 16:45 → 2W 18:36 → 2E 09-19 16:32
PROC: 5A09357 Assistance with Respiratory Ventilation, Less than 24 Consecutive Hours, Continuous Positive Airway Pressure (ICD-10-PCS; principal; 2018-09-18)
DX: J45.901 Unspecified asthma with (acute) exacerbation (principal); J96.00 Acute respiratory failure, unspecified whether with hypoxia or hypercapnia; F33.1 Major depressive disorder, recurrent, moderate; I10 Essential (primary) hypertension; I25.10 Atherosclerotic heart disease of native coronary artery without angina pectoris; Z95.5 Presence of coronary angioplasty implant and graft; K21.9 Gastro-esophageal reflux disease without esophagitis; Z86.73 Personal history of transient ischemic attack (TIA), and cerebral infarction without residual deficits; E78.00 Pure hypercholesterolemia, unspecified; G40.909 Epilepsy, unspecified, not intractable, without status epilepticus; Z88.1 Allergy status to other antibiotic agents; Z60.2 Problems related to living alone; F32.9 Major depressive disorder, single episode, unspecified; J40 Bronchitis, not specified as acute or chronic
CPT/HCPCS: 36415; 36600; 71045; 80053; 81003; 82550; 82803; 83605; 83880; 84484; 85025; 86710; 87040; 93005; 93970; 94640; 94660; 94664; 94760; 96361; 96374; 99285; J7620

== ENCOUNTER 2018-11-18 20:06 | Inpatient (IN) | payer MEDICARE, MEDICAID ==
[~2018-11-18] VITALS: Ht 157.5 cm; Wt 65.3 kg
[~2018-11-18 20:06] MED LIST changes: +PAZEO2.5 ML OP; +RESTASIS1 EACH BOTH EYES; +bevespi
--- NOTE | 2018-11-18 20:13 | Emergency Room Report ---
History of Present Illness General Chief Complaint: Dyspnea/Respdistress Source: Patient Present Illness HPI Patient presents with one hour of dyspnea and chest pain. She history of COPD. Paramedics treated with albuterol and the field. She's doing somewhat better. She also complains about chest pain. Patient states the chest pain is more pleuritic. She does not rate serious it is. Nonradiating. He denies fevers or chills. She denies productive cough. No palpitations, diarrhea, dysuria, abdominal pain, depression, visual changes, headache. Patient has a history of seizures on Dilantin and Keppra. Status post hemorrhagic stroke. History of hypertension Allergies: Coded Allergies: VANCOMYCIN (Verified Allergy, Unknown, red eyes, itchying, 10/10/16) Uncoded Allergies: Canned Food (Allergy, Unknown, 03/22/18) Nausea/Vomitting/Indigestion Patient History Past Medical History: see triage record Past Surgical History: PTCA Social History: Denies: smoking Social History Narrative from home Now: No Reviewed Nursing Documentation: PMH: Agreed; PSxH: Agreed Nursing Documentation-PMH Hx Cardiac Problems: Yes Hx Hypertension: Yes Hx Asthma: Yes Hx Cancer: No Hx Gastrointestinal Problems: No Hx Neurological Problems: Yes Hx Cerebrovascular Accident: Yes Hx Seizures: Yes Review of Systems All Other Systems: negative except mentioned in HPI Physical Exam Vital Signs Date Time Temp Pulse Resp B/P (MAP) Pulse Ox O2 Delivery O2 Flow Rate FiO2 11/18/18 19:56 98.1 89 24 131/89 100 Room Air Sp02 EP Interpretation: reviewed, normal General Appearance: alert, GCS 15, mild distress, Chronically Ill Head: normocephalic Eyes: bilateral eye normal inspection, bilateral eye PERRL ENT: moist mucus membranes Neck: supple Respiratory: chest non-tender, wheezing, expiration Cardiovascular #1: regular rate, rhythm, no edema Cardiovascular #2: 2+ radial (R) Gastrointestinal: normal inspection, normal bowel sounds, non tender, no mass, non-distended Musculoskeletal: back normal, normal range of motion, no calf tenderness, Sea 's Sign negative Neurologic: alert, oriented x3, grossly normal Psychiatric: mood/affect normal Skin: normal inspection, warm/dry Medical Decision Making Diagnostic Impression: Primary Impression: COPD exacerbation Additional Impressions: Chest pain Qualified Codes: R07.9 - Chest pain, unspecified Hypokalemia ER Course Patient presents with dyspnea and bronchospasm and chest pain. Differential includes acute myocardial infarction, COPD exacerbation, pneumonia amongst others. She'll be evaluated with EKG, chest x-ray and labs. The patient will be treated with Solu-Medrol and breathing treatments. She may need to receive aspirin and nitrates. Patient feels better and refused breathing treatments here. EKG without injury. CXR COPD, no infiltrates. Normal WBC with eosinophilia. K is low. Dilantin slightly low. Troponin and lactate neg. Increased wheezing. Breathing treatments given. Some improvement. Admit tele Dr. Garcia. Laboratory Tests Test 11/18/18 20:35 White Blood Count 9.0 K/UL (4.8-10.8) Red Blood Count 4.27 M/UL (4.20-5.40) Hemoglobin 13.0 G/DL (12.0-16.0) Hematocrit 38.4 % (37.0-47.0) Mean Corpuscular Volume 90 FL (80-99) Mean Corpuscular Hemoglobin 30.5 PG (27.0-31.0) Mean Corpuscular Hemoglobin Concent 34.0 G/DL (32.0-36.0) Red Cell Distribution Width 12.4 % (11.6-14.8) Platelet Count 211 K/UL (150-450) Mean Platelet Volume 5.9 FL (6.5-10.1) L Neutrophils (%) (Auto) 52.9 % (45.0-75.0) Lymphocytes (%) (Auto) 33.0 % (20.0-45.0) Monocytes (%) (Auto) 8.1 % (1.0-10.0) Eosinophils (%) (Auto) 5.3 % (0.0-3.0) H Basophils (%) (Auto) 0.8 % (0.0-2.0) Prothrombin Time 10.1 SEC (9.30-11.50) Prothrombin Time INR 1.0 (0.9-1.1) PTT 26 SEC (23-33) Urine Color Pale yellow Urine Appearance Clear Urine pH 7 (4.5-8.0) Urine Specific Whiting 1.005 (1.005-1.035) Urine Protein 2+ (NEGATIVE) H Urine Glucose (UA) Negative (NEGATIVE) Urine Ketones Negative (NEGATIVE) Urine Blood 2+ (NEGATIVE) H Urine Nitrite Negative (NEGATIVE) Urine Bilirubin Negative (NEGATIVE) Urine Urobilinogen Normal MG/DL (0.0-1.0) Urine Leukocyte Esterase 1+ (NEGATIVE) H Urine RBC 5-10 /HPF (0 - 2) H Urine WBC 2-4 /HPF (0 - 2) Urine Squamous Epithelial Cells Few /LPF (NONE/OCC) Urine Bacteria Few /HPF (NONE) Sodium Level 140 MMOL/L (136-145) Potassium Level 2.9 MMOL/L (3.5-5.1) L Chloride Level 103 MMOL/L (98-107) Carbon Dioxide Level 29 MMOL/L (21-32) Anion Gap 8 mmol/L (5-15) Blood Urea Nitrogen 24 mg/dL (7-18) H Creatinine 0.7 MG/DL (0.55-1.30) Estimate Glomerular Filtration Rate mL/min (>60) Glucose Level 150 MG/DL (74-106) H Lactic Acid Level 1.70 mmol/L (0.4-2.0) Calcium Level 9.0 MG/DL (8.5-10.1) Total Bilirubin 0.2 MG/DL (0.2-1.0) Aspartate Amino Transferase (AST) 11 U/L (15-37) L Alanine Aminotransferase (ALT) 24 U/L (12-78) Alkaline Phosphatase 97 U/L (46-116) Total Creatine Kinase 168 U/L (26-308) Troponin I 0.040 ng/mL (0.000-0.056) Pro-B-Type Natriuretic Peptide 42 pg/mL (0-125) Total Protein 7.1 G/DL (6.4-8.2) Albumin 3.5 G/DL (3.4-5.0) Globulin 3.6 g/dL Albumin/Globulin Ratio 1.0 (1.0-2.7) Phenytoin (Dilantin) Level 7.4 ug/mL (10-20) L Microbiology Date/Time Source Procedure Growth Status 11/18/18 20:35 Nasal Nares Influenza Types A,B Antigen (LOWELL) - Final Complete EKG Diagnostic Results Rate: normal Rhythm: NSR ST Segments: no acute changes Rhythm Strip Diag. Results EP Interpretation: yes Rhythm: NSR, no PVC's, no ectopy Chest X-Ray Diagnostic Results Chest X-Ray Diagnostic Results : Chest X-Ray Ordered: Yes # of Views/Limited/Complete: 1 View Indication: Other EP Interpretation: Yes Interpretation: no consolidation, no effusion, no pneumothorax, other - COPD and inc cor Last Vital Signs Date Time Temp Pulse Resp B/P (MAP) Pulse Ox O2 Delivery O2 Flow Rate FiO2 11/19/18 01:48 72 20 96 Room Air 21 11/18/18 22:50 98.1 152/84 Status: improved Disposition: ADMITTED INPATIENT Condition: Serious David Balderas MD Nov 18, 2018 20:13
[2018-11-18] MEDS ORDERED: Ipratropium 0.02% Inh Soln 2.5ml UD HHN ONE (20:15)
[2018-11-18] MEDS ORDERED: Albuterol ud Inhalation HHN ONE (20:15)
[2018-11-18] MEDS ORDERED: Solu-MEDROL 125mg Inj IVP ONE (20:15)
[2018-11-18 20:20] VITALS: BP 131/89
--- NOTE | 2018-11-18 20:20 | NUR ---
ER Nurse Note: Pt BIBA from home c/o difficulty breathing since 1800. Pt stated she has hx of asthma and COPD but her medicaiton is not effective as before. Pt a&ox4, VSS, wheezes heard in lung with harsh wet cough. Pt on RA, O2 at 97%. ERMD at pt side, will continue to montior.
[2018-11-18] MEDS ORDERED: BACLOFEN10 MG ORAL (20:43)
[2018-11-18] MEDS ORDERED: ISOSORBIDE DINI30 MG ORAL (20:43)
[2018-11-18] MEDS ORDERED: BEVESPI (20:43)
[2018-11-18] MEDS ORDERED: CLOPIDOGREL75 MG ORAL (20:43)
[2018-11-18] MEDS ORDERED: LYRICA50 MG ORAL (20:43)
[2018-11-18] MEDS ORDERED: VENTOLIN HFA18 GM INH (20:43)
[2018-11-18 20:51] LABS: BASOPHILS % (AUTO) 0.8 % (0.0-2.0); EOSINOPHILS % (AUTO) 5.3 % (0.0-3.0); HEMATOCRIT 38.4 % (37.0-47.0); MEAN CORPUSCULAR VOLUME 90 FL (80-99); MONOCYTES % (AUTO) 8.1 % (1.0-10.0); NEUTROPHILS % (AUTO) 52.9 % (45.0-75.0); PLATELET COUNT 211 K/UL (150-450); RED BLOOD COUNT 4.27 M/UL (4.20-5.40); RED CELL DISTRIBUTION WIDTH 12.4 % (11.6-14.8)
--- NOTE | 2018-11-18 21:00 | NUR ---
ER Nurse Note: Pt refused breathing treatment; stating she has no difficulty breathing. ERMD aware. Pt calm, cooperative, VSS. Bedside commode provided; pt no difficulty voiding, urinated twice. [facility]
[2018-11-18 21:02] LABS: APPEARANCE,URINE CLEAR; BILIRUBIN, URINE NEGATIVE (NEGATIVE); COLOR,URINE PALE YELLOW; GLUCOSE, URINE (UA) NEGATIVE (NEGATIVE); KETONES,URINE NEGATIVE (NEGATIVE); LEUKOCYTE ESTERASE ,URINE 1+ (NEGATIVE); NITRITE,URINE NEGATIVE (NEGATIVE); PH,URINE 7 (4.5-8.0); PROTEIN,URINE 2+ (NEGATIVE); UROBILINOGEN,URINE NORMAL MG/DL (0.0-1.0)
[2018-11-18] MEDS ORDERED: Morphine Sulfate 2mg/ml Inj(IV/IM USE ONLY) IVP PRN (21:15)
[2018-11-18] MEDS ORDERED: LORazepam Inj 2mg/ml 1ml IV PRN (21:15)
[2018-11-18] MEDS ORDERED: Nitroglycerin Subl 0.4mg tab SL PRN (21:15)
[2018-11-18 21:20] LABS: ANION GAP 8 mmol/L (5-15); BLOOD UREA NITROGEN 24 mg/dL (7-18); CARBON DIOXIDE 29 MMOL/L (21-32); CHLORIDE 103 MMOL/L (98-107); CREATININE 0.7 MG/DL (0.55-1.30); POTASSIUM 2.9 MMOL/L (3.5-5.1); SODIUM 140 MMOL/L (136-145)
[2018-11-18 21:32] LABS: ALANINE AMINOTRANSFERASE 24 U/L (12-78); ALBUMIN 3.5 G/DL (3.4-5.0); ALKALINE PHOSPHATASE 97 U/L (46-116); ASPARTATE AMINO TRANSFERASE 11 U/L (15-37); BILIRUBIN,TOTAL 0.2 MG/DL (0.2-1.0); CREATINE KINASE 168 U/L (26-308)
[2018-11-18] MEDS ORDERED: Piperacillin/Tazobactam 2.25 GM in D5W 55 ML IV SCH (22:00)
--- NOTE | 2018-11-18 22:47 | NUR ---
NURSE NOTES: Kellie GIMENEZ called from ER to give report. Pending patient arrival to unit.
[2018-11-18 22:50] VITALS: BP 152/84
--- NOTE | 2018-11-18 22:50 | NUR ---
ER Nurse Note: Report given to Faustina GIMENEZ in tele for continuity of care. Pt a&ox4, VSS, no signs of distress. Pt left with all be belongings.
--- NOTE | 2018-11-18 23:30 | NUR ---
NURSE NOTES: Pt transferred from ER via gurney and independently ambulatory with staff supervision to [facility]. monitor technician applied. Belongings list checked with patient and transferring RN at bedside. Pt has $11 in fonseca that she declined to put in safe. Pt is awake, alert, and oriented x4. Pt is on room air and breathing is even and unlabored. No acute distress noted. IV site is asymptomatic, patent, and intact. Pt provided with orientation to surroundings and hospital policy. Bed placed in lowest position with brake engaged, side rails up x3, and bed alarm on. Call light and side table placed within reach.Will continue to monitor.
[2018-11-19] VITALS (7 sets, daily range): BP systolic 117–174; BP diastolic 65–99
[2018-11-19] MEDS: Solu-MEDROL 125mg Inj IV SCH ×4 (00:55→17:35)
[2018-11-19] MEDS: Albuterol/Ipratropium 3ml neb HHN PRN ×2 (01:32→15:15)
[2018-11-19] MEDS: Promethazine/Codeine 5ml UD ORAL PRN ×3 (03:23→22:52)
[2018-11-19] MEDS: Zoysn 3.37gm in NS 100ML IVPB SCH ×2 (05:52→14:32)
--- NOTE | 2018-11-19 07:29 | NUR ---
HAND-OFF: Report given to Corbin GIMENEZ. Pt is sitting up at bedside in stable condition. No acute distress noted. Endorsed plan of care.
--- NOTE | 2018-11-19 07:30 | NUR ---
NURSE NOTES: Received report from AMMY Tejeda. Patient is resting in bed and in semi- pierce position.No signs of acute distress at this time. Respiration even and non labored on room air. IV lines patent and intact. Bed in lowest position with two side rails up. Call light and bed side table within reach. Will continue to monitor.
[2018-11-19] MEDS ORDERED: Theophylline ER 100mg ORAL SCH ×2 (09:00→21:00)
[2018-11-19] MEDS ORDERED: Atorvastatin 20mg tab ORAL SCH (09:00)
[2018-11-19] MEDS ORDERED: Lyrica 50mg cap ORAL SCH (09:00)
[2018-11-19] MEDS ORDERED: Heparin 5000 units/ml inj SUBQ SCH (09:00)
[2018-11-19] MEDS: Phenytoin 100mg cap ORAL SCH ×2 (09:06→17:35)
--- NOTE | 2018-11-19 11:13 | Consultation ---
History of Present Illness General Date patient seen: Nov 19, 2018 Chief Complaint: Dyspnea/Respdistress Present Illness HPI 83-year-old female with history of HTN, asthma, CVA/TIA presents to ED for evaluation for shortness of breath. Per EMS patient was wheezing and they started her on breathing treatments. Patient states she feels a little better but still feels very short of breath. States she's been using her inhaler at home without significant relief. Denies cough. Denies chest pain. Denies fevers or chills. Denies sick contacts or recent travel. Pt is admitted to telemetry for further treatment. Allergies: Coded Allergies: VANCOMYCIN (Verified Allergy, Unknown, red eyes, itchying, 10/10/16) Uncoded Allergies: Canned Food (Allergy, Unknown, 03/22/18) Nausea/Vomitting/Indigestion Medication History Scheduled Albuterol Sulfate (Ventolin Hfa), 1 PUFF INH EVERY 6 HOURS Amlodipine Besylate* (Amlodipine Besylate*), 5 MG ORAL DAILY, (Reported) Atorvastatin (Lipitor), 40 MG ORAL DAILY, (Reported) Baclofen* (Baclofen*), 10 MG ORAL DAILY, (Reported) Clopidogrel* (Clopidogrel*), 75 MG ORAL DAILY, (Reported) Dexlansoprazole (Dexilant), 60 MG ORAL DAILY, (Reported) Isosorbide Dinitrate* (Isordil*), 30 MG ORAL DAILY, (Reported) Levocetirizine Dihydrochloride (Levocetirizine Dihydrochloride), 5 MG ORAL DAILY , (Reported) Levofloxacin (Levofloxacin*), 500 MG ORAL DAILY, (Reported) Losartan/Hydrochlorothiazide (Losartan-Hctz 100-12.5 Mg Tab), 1 TAB ORAL DAILY, (Reported) Montelukast Sodium* (Montelukast Sodium*), 10 MG ORAL DAILY, (Reported) Phenytoin Sodium Extended* (Phenytoin Sodium Extended*), 100 MG ORAL BID, ( Reported) Pregabalin (Lyrica), 50 MG ORAL DAILY, (Reported) Miscellaneous Medications [Bevespi], (Reported) Discontinued Medications Codeine/Promethazine Hcl* (Promethazine-Codeine Syrup*), 5 ML ORAL Q8HR PRN for For Cough, (Reported) Discontinued Reason: Pt stopped taking med Cyclosporine (Restasis), 1 DROP BOTH EYES EVERY 12 HOURS, (Reported) Discontinued Reason: Pt stopped taking med Fluoxetine Hcl* (Prozac*), 20 MG ORAL DAILY, (Reported) Discontinued Reason: Pt stopped taking med Fluticasone/Salmeterol (Advair 250-50 Diskus), 1 PUFF INH EVERY 12 HOURS Discontinued Reason: Pt stopped taking med Hydroxyzine HCl (Hydroxyzine HCl), 25 MG ORAL Q6H PRN Discontinued Reason: Pt stopped taking med Isosorbide (Isosorbide), 30 MG MC, (Reported) Discontinued Reason: Prescription changed Labetalol Hcl* (Labetalol Hcl*), 100 MG IV DAILY, (Reported) Discontinued Reason: Pt stopped taking med Loratadine (Loratadine), 10 MG PO DAILY, (Reported) Discontinued Reason: Pt stopped taking med Methylprednisolone (Medrol), 4 MG PO, (Reported) Discontinued Reason: Pt stopped taking med Olopatadine HCl (Pazeo), 2.5 ML OP, (Reported) Discontinued Reason: Pt stopped taking med Pantoprazole* (Protonix*), 40 MG ORAL DAILY, (Reported) Discontinued Reason: Pt stopped taking med Pregabalin (Lyrica), 50 MG ORAL Q12HR, (Reported) Discontinued Reason: Pt stopped taking med Theophylline (Theodur*), 100 MG ORAL EVERY 12 HOURS Discontinued Reason: Pt stopped taking med Valsartan/Hydrochlorothiazide 160-12.5 (Valsartan-Hctz 160-12.5 Mg Tab), 1 TAB ORAL Q12HR, (Reported) Discontinued Reason: Pt stopped taking med Patient History Healthcare decision maker N Resuscitation status Full Code Advanced Directive on File Past Medical/Surgical History Past Medical/Surgical History: (1) Allergic asthma (2) HTN (hypertension) (3) CAD (coronary artery disease) (4) Vascular dementia (5) Cerebral vascular disease (6) Hemorrhagic stroke Physical Exam General Appearance: WD/WN Lines, tubes and drains: peripheral HEENT: normocephalic, atraumatic Neck: non-tender, supple Respiratory/Chest: chest wall non-tender, rhonchi - left, rhonchi - right Breasts: no masses Cardiovascular/Chest: normal rate Abdomen: normal bowel sounds, non tender Genitourinary/Rectal: normal genital exam, normal rectal exam Extremities: normal range of motion Skin Exam: normal pigmentation Last 24 Hour Vital Signs Date Time Temp Pulse Resp B/P (MAP) Pulse Ox O2 Delivery O2 Flow Rate FiO2 11/19/18 09:05 101 174/99 11/19/18 08:00 98.0 101 18 174/99 (124) 95 11/19/18 04:00 92 11/19/18 04:00 98.4 90 18 128/65 (86) 94 11/19/18 01:48 72 20 96 Room Air 21 11/19/18 01:32 68 20 93 Room Air 21 11/19/18 00:00 97 11/19/18 00:00 98.2 91 16 117/72 (87) 93 11/19/18 00:00 Room Air 11/18/18 22:50 98.1 78 18 152/84 99 Room Air 11/18/18 22:50 98.1 78 18 152/86 99 Room Air 21 11/18/18 20:28 92 20 99 Room Air 21 11/18/18 20:21 94 22 Room Air 21 11/18/18 20:21 94 20 95 Room Air 21 11/18/18 20:20 98.1 78 22 131/89 100 Room Air 11/18/18 20:20 89 24 Room Air 11/18/18 19:56 98.1 89 24 131/89 100 Room Air Intake and Output 11/18/18 11/19/18 19:00 07:00 Intake Total 3100 ml Balance 3100 ml IV Total 3100 ml # Voids 4 Laboratory Tests Test 11/18/18 20:35 White Blood Count 9.0 K/UL (4.8-10.8) Red Blood Count 4.27 M/UL (4.20-5.40) Hemoglobin 13.0 G/DL (12.0-16.0) Hematocrit 38.4 % (37.0-47.0) Mean Corpuscular Volume 90 FL (80-99) Mean Corpuscular Hemoglobin 30.5 PG (27.0-31.0) Mean Corpuscular Hemoglobin Concent 34.0 G/DL (32.0-36.0) Red Cell Distribution Width 12.4 % (11.6-14.8) Platelet Count 211 K/UL (150-450) Mean Platelet Volume 5.9 FL (6.5-10.1) L Neutrophils (%) (Auto) 52.9 % (45.0-75.0) Lymphocytes (%) (Auto) 33.0 % (20.0-45.0) Monocytes (%) (Auto) 8.1 % (1.0-10.0) Eosinophils (%) (Auto) 5.3 % (0.0-3.0) H Basophils (%) (Auto) 0.8 % (0.0-2.0) Prothrombin Time 10.1 SEC (9.30-11.50) Prothromb Time International Ratio 1.0 (0.9-1.1) Activated Partial Thromboplast Time 26 SEC (23-33) Urine Color Pale yellow Urine Appearance Clear Urine pH 7 (4.5-8.0) Urine Specific [place] 1.005 (1.005-1.035) Urine Protein 2+ (NEGATIVE) H Urine Glucose (UA) Negative (NEGATIVE) Urine Ketones Negative (NEGATIVE) Urine Blood 2+ (NEGATIVE) H Urine Nitrite Negative (NEGATIVE) Urine Bilirubin Negative (NEGATIVE) Urine Urobilinogen Normal MG/DL (0.0-1.0) Urine Leukocyte Esterase 1+ (NEGATIVE) H Urine RBC 5-10 /HPF (0 - 2) H Urine WBC 2-4 /HPF (0 - 2) Urine Squamous Epithelial Cells Few /LPF (NONE/OCC) Urine Bacteria Few /HPF (NONE) Sodium Level 140 MMOL/L (136-145) Potassium Level 2.9 MMOL/L (3.5-5.1) L Chloride Level 103 MMOL/L (98-107) Carbon Dioxide Level 29 MMOL/L (21-32) Anion Gap 8 mmol/L (5-15) Blood Urea Nitrogen 24 mg/dL (7-18) H Creatinine 0.7 MG/DL (0.55-1.30) Estimat Glomerular Filtration Rate mL/min (>60) Glucose Level 150 MG/DL (74-106) H Lactic Acid Level 1.70 mmol/L (0.4-2.0) Calcium Level 9.0 MG/DL (8.5-10.1) Total Bilirubin 0.2 MG/DL (0.2-1.0) Aspartate Amino Transf (AST/SGOT) 11 U/L (15-37) L Alanine Aminotransferase (ALT/SGPT) 24 U/L (12-78) Alkaline Phosphatase 97 U/L (46-116) Total Creatine Kinase 168 U/L (26-308) Troponin I 0.040 ng/mL (0.000-0.056) Pro-B-Type Natriuretic Peptide 42 pg/mL (0-125) Total Protein 7.1 G/DL (6.4-8.2) Albumin 3.5 G/DL (3.4-5.0) Globulin 3.6 g/dL Albumin/Globulin Ratio 1.0 (1.0-2.7) Phenytoin (Dilantin) Level 7.4 ug/mL (10-20) L Microbiology Date/Time Source Procedure Growth Status 11/18/18 20:35 Nasal Nares Influenza Types A,B Antigen (LOWELL) - Final Complete Height (Feet): 5 Height (Inches): 2.00 Weight (Pounds): 138 Medications Current Medications Medications (Trade) Dose Ordered Sig/[place] Route PRN Reason Start Time Stop Time Status Last Admin Dose Admin Albuterol/ Ipratropium (Albuterol/ Ipratropium) 3 ml Q4H PRN HHN dyspnea 11/18/18 21:15 11/23/18 21:14 11/19/18 01:32 Amlodipine Besylate (Norvasc) 5 mg DAILY ORAL 11/19/18 09:00 12/19/18 08:59 11/19/18 09:05 Atorvastatin Calcium (Lipitor) 40 mg DAILY ORAL 11/19/18 09:00 12/19/18 08:59 11/19/18 09:06 Clopidogrel Bisulfate (Plavix) 75 mg DAILY ORAL 11/19/18 09:00 12/19/18 08:59 11/19/18 09:06 Dextrose (Dextrose 50%) 25 ml Q30M PRN IV Hypoglycemia 11/18/18 21:15 12/18/18 21:14 Dextrose (Dextrose 50%) 50 ml Q30M PRN IV Hypoglycemia 11/18/18 21:15 12/18/18 21:14 Heparin Sodium (Porcine) (Heparin 5000 units/ml) 5,000 units EVERY 12 HOURS SUBQ 11/19/18 09:00 12/19/18 08:59 11/19/18 09:12 Lorazepam (Ativan 2mg/ml 1ml) 0.5 mg Q4H PRN IV For Anxiety 11/18/18 21:15 11/25/18 21:14 Methylprednisolone Sodium Succinate (Solu-MEDROL) 60 mg EVERY 6 HOURS IV 11/19/18 00:00 12/19/18 00:00 11/19/18 05:51 Montelukast Sodium (Singulair) 10 mg QPM ORAL 11/19/18 16:30 12/19/18 16:29 Morphine Sulfate (Morphine Sulfate) 2 mg Q4H PRN IVP severe pain 7-10 11/18/18 21:15 11/25/18 21:14 Nitroglycerin (Ntg) 0.4 mg Q5M X 3 DOSES PRN SL Prn Chest Pain 11/18/18 21:15 12/18/18 21:14 Ondansetron HCl (Zofran) 4 mg Q6H PRN IVP Nausea & Vomiting 11/18/18 21:15 12/18/18 21:14 Phenytoin (Dilantin) 100 mg BID ORAL 11/19/18 09:00 12/19/18 08:59 11/19/18 09:06 Piperacillin Sod/ Tazobactam Sod 3.375 gm/Sodium Chloride 110 ml @ 27.5 mls/hr EVERY 8 HOURS IVPB 11/19/18 06:00 11/26/18 05:59 11/19/18 05:52 Pregabalin (Lyrica) 50 mg DAILY ORAL 11/19/18 09:00 12/19/18 08:59 11/19/18 09:07 Promethazine HCl/ Codeine (Phenergan with Codeine) 5 ml Q6H PRN ORAL cough 11/18/18 21:15 12/18/18 21:14 11/19/18 09:10 Temazepam (Restoril) 15 mg HSPRN PRN ORAL Insomnia 11/18/18 21:15 11/25/18 21:14 Theophylline (Fabrice-Dur) 100 mg EVERY 12 HOURS ORAL 11/19/18 09:00 12/19/18 08:59 11/19/18 09:05 Assessment/Plan Problem List: (1) Acute respiratory failure ICD Codes: J96.00 - Acute respiratory failure, unspecified whether with hypoxia or hypercapnia SNOMED: 66602064 (2) Acute asthma exacerbation ICD Codes: J45.901 - Unspecified asthma with (acute) exacerbation SNOMED: 262992884 (3) Allergic asthma ICD Codes: J45.909 - Unspecified asthma, uncomplicated SNOMED: 937943259, 576279404 (4) CAD (coronary artery disease) ICD Codes: I25.10 - Atherosclerotic heart disease of [place] coronary artery without angina pectoris SNOMED: 51465499 (5) HTN (hypertension) ICD Codes: I10 - Essential (primary) hypertension SNOMED: 33027554 (6) Cerebral vascular disease ICD Codes: I67.9 - Cerebrovascular disease, unspecified SNOMED: 30417011 Assessment/Plan respiratory treatment check sputum iv steroids iv abx lidocain inhalation to help wiht cough dvt prophylaxis med/surg Luis A Juares MD Nov 19, 2018 11:13
[2018-11-19] MEDS ORDERED: Lidocaine 1% MPF 10mg/ml 5ml HHN PRN ×3 (11:15→19:00)
[2018-11-19] MEDS ORDERED: Promethazine/Codeine 5ml UD ORAL PRN (11:30)
--- NOTE | 2018-11-19 11:58 | NUR ---
CASE MANAGEMENT:REVIEW 83 YR OLD FEMALE FROM HOME CC; SOB PMH: ASTHMA SI: COPD EXACERBATION. CHEST PAIN. 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
--- NOTE | 2018-11-19 14:29 | Diagnostic Imaging Report ---
Indication: Dyspnea Technique: One view of the chest Comparison: 09/18/2018 Findings: There is suggestion of 2 or more nodular opacities in the left midlung periphery, not clearly evident previously. Bilateral apical pleural and parenchymal scarring is again demonstrated. The heart is enlarged. Aorta is tortuous. The left pleural space, right lung and pleural space are clear other than the chronic appearing abnormalities. Impression: Questionable left lung nodules, not evident previously if real. Recommend follow-up chest radiographs, consideration for CT should lesion failed to resolve Biapical chronic pleural and parenchymal scarring Dr. Juares notified at the time of interpretation
[2018-11-19] MEDS ORDERED: Albuterol/Ipratropium 3ml neb HHN PRN (16:15)
[2018-11-19] MEDS ORDERED: Montelukast 10mg tablet ORAL SCH (16:30)
--- NOTE | 2018-11-19 16:47 | History & Physical ---
History and Physical History & Physicial Patient: NA [facility] Rec #: [id number] Date of Service: 11/18/18 DATE OF ADMISSION: 11/18/18 CHIEF COMPLAINT: The patient is an 83-year-old [place] female, who presents with complaint of severe shortness of breath and chest pain. HISTORY OF PRESENT ILLNESS: She has recurrent admission to [facility] due to asthma / COPD exacerbation. The patient presented to [place] emergency room complaining of shortness of breath and chest tightness for 0ne week. The patient states she had some chest congestion and heaviness. The patient denies any fevers or chills. The patient does complain of dry cough. The patient is admitted for shortness of breath due to acute exacerbation of COPD. REVIEW OF SYSTEMS: CONSTITUTIONAL: The patient denies weight loss or weight gain. The patient denies fevers or chills. HEENT: The patient denies ear or throat pain. The patient denies headache. CARDIOVASCULAR: The patient complains of chest tightness as above. The patient denies palpitations. CHEST: The patient complains of shortness of breath as above. The patient denies wheezes. ABDOMEN: The patient denies nausea, vomiting, diarrhea, or constipation. GENITOURINARY: The patient denies dysuria or increased frequency of urination. NEUROMUSCULAR: The patient denies seizures or generalized weakness. PAST MEDICAL HISTORY: Significant for: 1. Asthma. 2. History of hemorrhagic cerebrovascular accident. 3. Hypertension. 4. Hypercholesterolemia. 5. Gastroesophageal reflux disease. 6. Seizure disorder. 7. Coronary artery disease, status post stent placement in November of 2017. PAST SURGICAL HISTORY: Significant for: 1. Appendectomy. 2. Cardiac catheterization in November 2017 with one stent placed. CURRENT MEDICATIONS: 1. Albuterol metered-dose inhaler two puffs p.o. q.i.d. p.r.n. 2. Amlodipine 2.5 mg p.o. daily. 3. Atorvastatin 40 mg p.o. daily. 4. Clopidogrel 75 mg p.o. daily. 5. Dexilant 60 mg p.o. daily. 6. Prozac 20 mg p.o. daily. 7. Advair 250/50 one puff p.o. twice daily. 8. Hydroxyzine 25 mg p.o. q.6 hours p.r.n. 9. Labetalol. 10. Isosorbide 30 mg p.o. daily. 11. Zyrtec 5 mg p.o. daily. 12. Losartan/hydrochlorothiazide 100/12.5 one tablet p.o. daily. 13. Singulair 10 mg p.o. daily. 14. Protonix 40 mg p.o. daily. 15. Dilantin 100 mg p.o. twice daily. 16. Prednisone as needed p.r.n. 17. Lyrica 50 mg p.o. twice daily. 18. Valsartan/hydrochlorothiazide 160/12.5 one tablet p.o. q.12 hours. ALLERGIES: Vancomycin. SOCIAL HISTORY: The patient is a . The patient is single. The patient lives alone. The patient denies tobacco or alcohol use. PHYSICAL EXAMINATION: Last 24 Hour Vital Signs Date Time Temp Pulse Resp B/P (MAP) Pulse Ox O2 Delivery O2 Flow Rate FiO2 11/19/18 15:16 75 22 97 Room Air 11/19/18 15:04 71 18 94 Room Air 11/19/18 12:00 97.9 99 20 158/83 (108) 96 11/19/18 09:05 101 174/99 11/19/18 09:00 Room Air 11/19/18 08:00 98.0 101 18 174/99 (124) 95 11/19/18 08:00 94 11/19/18 04:00 92 11/19/18 04:00 98.4 90 18 128/65 (86) 94 11/19/18 01:48 72 20 96 Room Air 11/19/18 01:32 68 20 93 Room Air 11/19/18 00:00 97 11/19/18 00:00 98.2 91 16 117/72 (87) 93 11/19/18 00:00 Room Air 11/18/18 22:50 98.1 78 18 152/84 99 Room Air 11/18/18 22:50 98.1 78 18 152/86 99 Room Air 21 11/18/18 20:28 92 20 99 Room Air 21 11/18/18 20:21 94 22 Room Air 21 11/18/18 20:21 94 20 95 Room Air 21 11/18/18 20:20 98.1 78 22 131/89 100 Room Air 11/18/18 20:20 89 24 Room Air 11/18/18 19:56 98.1 89 24 131/89 100 Room Air GENERAL: The patient is well-developed, well-nourished, female, on BiPAP. HEENT: Eyes, pupils equal and responsive to light and accommodation. Extraocular movements are intact. Facial full mask. NECK: Supple without lymphadenopathy. CHEST: Diffuse wheezes in bilateral bases. decrease air at bases. CARDIOVASCULAR: Regular rhythm and rate. S1-S2 are normal without murmurs or gallops. ABDOMEN: Soft, nontender, and nondistended. Positive bowel sounds. no rebound or guarding noted. EXTREMITIES: Negative for clubbing, cyanosis, or edema. RECTAL/GENITAL: Refused. NEUROLOGIC: Cranial nerves II through XII are grossly intact without focal deficits. Motor strength is 5/5 bilaterally. LABORATORY STUDIES: Labs Test 11/18/18 20:35 White Blood Count 9.0 K/UL (4.8-10.8) Red Blood Count 4.27 M/UL (4.20-5.40) Hemoglobin 13.0 G/DL (12.0-16.0) Hematocrit 38.4 % (37.0-47.0) Mean Corpuscular Volume 90 FL (80-99) Mean Corpuscular Hemoglobin 30.5 PG (27.0-31.0) Mean Corpuscular Hemoglobin Concent 34.0 G/DL (32.0-36.0) Red Cell Distribution Width 12.4 % (11.6-14.8) Platelet Count 211 K/UL (150-450) Mean Platelet Volume 5.9 FL (6.5-10.1) Neutrophils (%) (Auto) 52.9 % (45.0-75.0) Lymphocytes (%) (Auto) 33.0 % (20.0-45.0) Monocytes (%) (Auto) 8.1 % (1.0-10.0) Eosinophils (%) (Auto) 5.3 % (0.0-3.0) Basophils (%) (Auto) 0.8 % (0.0-2.0) Prothrombin Time 10.1 SEC (9.30-11.50) Prothromb Time International Ratio 1.0 (0.9-1.1) Activated Partial Thromboplast Time 26 SEC (23-33) Urine Color Pale yellow Urine Appearance Clear Urine pH 7 (4.5-8.0) Urine Specific [place] 1.005 (1.005-1.035) Urine Protein 2+ (NEGATIVE) Urine Glucose (UA) Negative (NEGATIVE) Urine Ketones Negative (NEGATIVE) Urine Blood 2+ (NEGATIVE) Urine Nitrite Negative (NEGATIVE) Urine Bilirubin Negative (NEGATIVE) Urine Urobilinogen Normal MG/DL (0.0-1.0) Urine Leukocyte Esterase 1+ (NEGATIVE) Urine RBC 5-10 /HPF (0 - 2) Urine WBC 2-4 /HPF (0 - 2) Urine Squamous Epithelial Cells Few /LPF (NONE/OCC) Urine Bacteria Few /HPF (NONE) Sodium Level 140 MMOL/L (136-145) Potassium Level 2.9 MMOL/L (3.5-5.1) Chloride Level 103 MMOL/L (98-107) Carbon Dioxide Level 29 MMOL/L (21-32) Anion Gap 8 mmol/L (5-15) Blood Urea Nitrogen 24 mg/dL (7-18) Creatinine 0.7 MG/DL (0.55-1.30) Estimat Glomerular Filtration Rate mL/min (>60) Glucose Level 150 MG/DL (74-106) Lactic Acid Level 1.70 mmol/L (0.4-2.0) Calcium Level 9.0 MG/DL (8.5-10.1) Total Bilirubin 0.2 MG/DL (0.2-1.0) Aspartate Amino Transf (AST/SGOT) 11 U/L (15-37) Alanine Aminotransferase (ALT/SGPT) 24 U/L (12-78) Alkaline Phosphatase 97 U/L (46-116) Total Creatine Kinase 168 U/L (26-308) Troponin I 0.040 ng/mL (0.000-0.056) Pro-B-Type Natriuretic Peptide 42 pg/mL (0-125) Total Protein 7.1 G/DL (6.4-8.2) Albumin 3.5 G/DL (3.4-5.0) Globulin 3.6 g/dL Albumin/Globulin Ratio 1.0 (1.0-2.7) Phenytoin (Dilantin) Level 7.4 ug/mL (10-20) CXR: Impression: Questionable left lung nodules, not evident previously if real. Recommend follow-up chest radiographs, consideration for CT should lesion failed to resolve Biapical chronic pleural and parenchymal scarring ASSESSMENT: This is an 83-year-old female. Acute exacerbation of COPD. History of Cerebrovascular disease. Hypertension. Hypercholesterolemia. Gastroesophageal reflux disease. History of seizure disorder. Coronary artery disease. TREATMENT: 1. Shortness of breath most likely due to acute COPD exacerbation. Pulmonary consultation will be obtained with Dr. Luis A Juares. The patient has been started on intravenous Solu-Medrol and Zosyn IV. The patient is currently receiving DuoNeb. We will follow recommendations of Pulmonary. 2. Cerebrovascular disease. The patient is status post hemorrhagic stroke. 3. Hypertension. Continue amlodipine as above. 4. Hypercholesteremia. Continue Lipitor as above. 5. Gastroesophageal reflux disease. Dexilant is non formulary at [facility]. The patient has been started on Protonix. 6. Seizure disorder. Continue Dilantin as above. 7. Coronary artery disease. Shlomo Garcia M.D. Shlomo Garcia MD Nov 19, 2018 16:47
--- NOTE | 2018-11-19 18:00 | NUR ---
NURSE NOTES: Patient received from tele. Report received from Corbin GIMENEZ. Patient is awake alert and oriented x4, no acute distress noted. IV running Zosyn per order. Belongings checked and verified at bedside. Seizure and fall precautions maintained, bed rails padded. Side rails upx3, bed low and locked, call light in reach. Will continue to monitor.
--- NOTE | 2018-11-19 18:10 | NUR ---
TRANSFER TO FLOOR: Patient transferred to Med-surg, per Dr. Garcia's order. Report given to AMMY Diaz. Belongings checked with AMMY Diaz. Called the number given by family [phone] no answer, no answering service. Called the number for next of kin in chart was not correct number.Patient transferred in stable condition.
[2018-11-19] MEDS ORDERED: Nitroglycerin Subl 0.4mg tab SL PRN (18:30)
[2018-11-19] MEDS ORDERED: Albuterol/Ipratropium 3ml neb HHN SCH (19:00)
[2018-11-19] MEDS ORDERED: LORazepam Inj 2mg/ml 1ml IV PRN (19:00)
[2018-11-19] MEDS: Albuterol/Ipratropium 3ml neb HHN SCH (19:35)
--- NOTE | 2018-11-19 19:39 | NUR ---
HAND-OFF: Report given to Peggy AMAYA. Patient is in stable condition.
--- NOTE | 2018-11-19 19:39 | NUR ---
NURSE NOTES:Patent received from Emily Philip patient denies any pain at this time . no s/s of distress noted . RFA G#22 H/L Patent and intact . seizure precaution maintained side rails padded side rails up x3 . bed alarm on . call light within reach . bed in low position at all times . will continue to monitor .
[2018-11-19] MEDS: Theophylline ER 100mg ORAL SCH (21:11)
[2018-11-19] MEDS: Heparin 5000 units/ml inj SUBQ SCH (21:15)
[2018-11-19] MEDS: Piperacillin/Tazobactam 3.375 GM in NS 110 ML IVPB SCH (21:39)
[2018-11-19] MEDS: Morphine Sulfate 2mg/ml Inj(IV/IM USE ONLY) IVP PRN (21:40)
[2018-11-20] VITALS: BP 133/75
[2018-11-20] MEDS: Solu-MEDROL 125mg Inj IV SCH ×4 (00:55→17:14)
[2018-11-20] MEDS: Albuterol/Ipratropium 3ml neb HHN SCH ×4 (00:58→19:39)
[2018-11-20] MEDS: Morphine Sulfate 2mg/ml Inj(IV/IM USE ONLY) IVP PRN (02:41)
[2018-11-20] MEDS: Promethazine/Codeine 5ml UD ORAL PRN ×3 (03:24→22:06)
[2018-11-20 04:00] VITALS: BP 139/76
[2018-11-20] MEDS: Piperacillin/Tazobactam 3.375 GM in NS 110 ML IVPB SCH ×3 (07:31→21:05)
--- NOTE | 2018-11-20 07:45 | NUR ---
HAND-OFF: Report given to Alfreda PhilipPatient in stable condition .
[2018-11-20 08:00] VITALS: BP 138/63
[2018-11-20] MEDS: Phenytoin 100mg cap ORAL SCH ×2 (09:15→17:14)
[2018-11-20] MEDS: Theophylline ER 100mg ORAL SCH ×2 (09:15→21:05)
[2018-11-20] MEDS: Atorvastatin 20mg tab ORAL SCH (09:16)
[2018-11-20] MEDS: Lyrica 50mg cap ORAL SCH (09:18)
[2018-11-20] MEDS: Heparin 5000 units/ml inj SUBQ SCH ×2 (09:18→21:06)
--- NOTE | 2018-11-20 10:29 | NUR ---
NURSE NOTES: pt in bed with no sob nor in any form of distress noted. Breathing regular and unlabored. denies any pain at this time. will continue to monitor
--- NOTE | 2018-11-20 11:26 | Pulmonology Progress Note ---
Assessment/Plan Problems: (1) Acute respiratory failure (2) Acute asthma exacerbation (3) Allergic asthma (4) CAD (coronary artery disease) (5) HTN (hypertension) (6) Cerebral vascular disease Assessment/Plan slightly better same dose steroids on Lidocain inhalers to control cough respiratory treatment check sputum, still pending iv abx dvt prophylaxis med/surg Subjective ROS Limited/Unobtainable: No Constitutional: Reports: no symptoms Respiratory: Reports: no symptoms Allergies: Coded Allergies: VANCOMYCIN (Verified Allergy, Unknown, red eyes, itchying, 10/10/16) Uncoded Allergies: Canned Food (Allergy, Unknown, 03/22/18) Nausea/Vomitting/Indigestion Objective Last 24 Hour Vital Signs Date Time Temp Pulse Resp B/P (MAP) Pulse Ox O2 Delivery O2 Flow Rate FiO2 11/20/18 09:15 89 138/63 11/20/18 09:00 Room Air 11/20/18 08:21 89 19 97 Room Air 21 11/20/18 08:00 98.2 89 18 138/63 (88) 96 11/20/18 07:33 91 18 93 Room Air 21 11/20/18 04:00 98.2 88 18 139/76 (97) 96 11/20/18 03:11 98.3 11/20/18 01:08 96 18 99 Room Air 21 11/20/18 00:58 92 18 96 Room Air 21 11/20/18 00:00 98.0 84 18 133/75 (94) 95 11/19/18 21:00 Room Air 11/19/18 20:01 98.3 91 18 122/76 (91) 95 11/19/18 19:45 74 18 96 Room Air 21 11/19/18 19:35 76 18 93 Room Air 21 11/19/18 16:00 98.0 96 18 141/79 (99) 95 11/19/18 15:16 75 22 97 Room Air 21 11/19/18 15:04 71 18 94 Room Air 21 11/19/18 12:00 97.9 99 20 158/83 (108) 96 Intake and Output 11/19/18 11/20/18 18:59 06:59 Intake Total 480 ml 600 ml Balance 480 ml 600 ml Intake Oral 480 ml 600 ml # Voids 3 4 # Bowel Movements 1 General Appearance: WD/WN Respiratory/Chest: chest wall non-tender, crackles/rales, expiratory wheezing Cardiovascular: normal rate Abdomen: normal bowel sounds, no organomegaly Extremities: no clubbing Skin: no rash Microbiology Date/Time Source Procedure Growth Status 11/19/18 11:47 Sputum Gram Stain Pending Resulted 11/19/18 11:47 Sputum Sputum Culture - Preliminary NORMAL UPPER RESPIRATORY SRUTHI AT 24 ... Resulted 11/19/18 03:00 Sputum Gram Stain - Final Resulted 11/19/18 03:00 Sputum Sputum Culture - Preliminary NORMAL UPPER RESPIRATORY SRUTHI AT 24 ... Resulted 11/18/18 20:35 Nasal Nares Influenza Types A,B Antigen (LOWELL) - Final Complete Current Medications Medications (Trade) Dose Ordered Sig/Mecca Route PRN Reason Start Time Stop Time Status Last Admin Dose Admin Albuterol/ Ipratropium (Albuterol/ Ipratropium) 3 ml Q4H PRN HHN dyspnea 11/19/18 18:30 11/23/18 18:29 Albuterol/ Ipratropium (Albuterol/ Ipratropium) 3 ml Q6HRT HHN 11/19/18 19:00 11/24/18 18:59 11/20/18 07:33 Amlodipine Besylate (Norvasc) 5 mg DAILY ORAL 11/20/18 09:00 12/19/18 08:59 11/20/18 09:15 Atorvastatin Calcium (Lipitor) 40 mg DAILY ORAL 11/20/18 09:00 12/19/18 08:59 11/20/18 09:16 Clopidogrel Bisulfate (Plavix) 75 mg DAILY ORAL 11/20/18 09:00 12/19/18 08:59 11/20/18 09:15 Dextrose (Dextrose 50%) 25 ml Q30M PRN IV Hypoglycemia 11/19/18 18:45 12/18/18 21:14 Dextrose (Dextrose 50%) 50 ml Q30M PRN IV Hypoglycemia 11/19/18 18:45 12/18/18 21:14 Heparin Sodium (Porcine) (Heparin 5000 units/ml) 5,000 units EVERY 12 HOURS SUBQ 11/19/18 21:00 12/19/18 08:59 11/20/18 09:18 Lidocaine (Xylocaine 1% MPF 5ml) 10 ml Q6H PRN HHN cough 11/19/18 19:00 12/19/18 18:59 Lorazepam (Ativan 2mg/ml 1ml) 0.5 mg Q4H PRN IV For Anxiety 11/19/18 19:00 11/25/18 18:59 Methylprednisolone Sodium Succinate (Solu-MEDROL) 60 mg EVERY 6 HOURS IV 11/20/18 00:00 12/19/18 00:00 11/20/18 07:31 Montelukast Sodium (Singulair) 10 mg QPM ORAL 11/20/18 16:30 12/19/18 16:29 Morphine Sulfate (Morphine Sulfate) 2 mg Q4H PRN IVP Severe Pain (Pain Scale 7-10) 11/19/18 18:30 11/25/18 18:29 11/20/18 02:41 Nitroglycerin (Ntg) 0.4 mg Q5M X 3 DOSES PRN SL Prn Chest Pain 11/19/18 18:30 12/18/18 21:14 Ondansetron HCl (Zofran) 4 mg Q6H PRN IVP Nausea & Vomiting 11/19/18 18:30 12/18/18 18:29 Phenytoin (Dilantin) 100 mg BID ORAL 11/20/18 09:00 12/19/18 08:59 11/20/18 09:15 Piperacillin Sod/ Tazobactam Sod 3.375 gm/Sodium Chloride 110 ml @ 27.5 mls/hr EVERY 8 HOURS IVPB 11/19/18 22:00 11/26/18 05:59 11/20/18 07:31 Pregabalin (Lyrica) 50 mg DAILY ORAL 11/20/18 09:00 12/19/18 08:59 11/20/18 09:18 Promethazine HCl/ Codeine (Phenergan with Codeine) 5 ml Q4H PRN ORAL For Cough 11/19/18 18:30 12/19/18 18:29 11/20/18 03:24 Temazepam (Restoril) 15 mg HSPRN PRN ORAL Insomnia 11/19/18 21:15 11/25/18 21:14 11/19/18 21:11 Theophylline (Fabrice-Dur) 100 mg EVERY 12 HOURS ORAL 11/19/18 21:00 12/19/18 08:59 11/20/18 09:15 Luis A Juares MD 19, 2019 11:26
[2018-11-20 12:00] VITALS: BP 143/76
[2018-11-20 16:00] VITALS: BP 130/93
[2018-11-20] MEDS: Albuterol/Ipratropium 3ml neb HHN PRN (16:42)
[2018-11-20] MEDS: Montelukast 10mg tablet ORAL SCH (17:14)
--- NOTE | 2018-11-20 19:00 | NUR ---
NURSE NOTES: Received a report from AMMY Hewitt. Pt is in stable condition. AAOX4. Able to make needs known. No respiratory distress noted. No c/o pain/discomfort. IV site is patent and intact. Bed in lowest position. Call light within reach. Will continue to monitor.
--- NOTE | 2018-11-20 19:26 | NUR ---
HAND-OFF: Report given to AMMY Bean.
--- NOTE | 2018-11-20 19:40 | Internal Med Progress Note ---
Subjective Physician Name Shlomo Garcia Attending Physician Shlomo Garcia MD Current Medications Medications (Trade) Dose Ordered Sig/Mecca Route PRN Reason Start Time Stop Time Status Last Admin Dose Admin Albuterol/ Ipratropium (Albuterol/ Ipratropium) 3 ml Q4H PRN HHN dyspnea 11/19/18 18:30 11/23/18 18:29 11/20/18 16:42 Albuterol/ Ipratropium (Albuterol/ Ipratropium) 3 ml Q6HRT HHN 11/19/18 19:00 11/24/18 18:59 11/20/18 13:23 Amlodipine Besylate (Norvasc) 5 mg DAILY ORAL 11/20/18 09:00 12/19/18 08:59 11/20/18 09:15 Atorvastatin Calcium (Lipitor) 40 mg DAILY ORAL 11/20/18 09:00 12/19/18 08:59 11/20/18 09:16 Clopidogrel Bisulfate (Plavix) 75 mg DAILY ORAL 11/20/18 09:00 12/19/18 08:59 11/20/18 09:15 Dextrose (Dextrose 50%) 25 ml Q30M PRN IV Hypoglycemia 11/19/18 18:45 12/18/18 21:14 Dextrose (Dextrose 50%) 50 ml Q30M PRN IV Hypoglycemia 11/19/18 18:45 12/18/18 21:14 Heparin Sodium (Porcine) (Heparin 5000 units/ml) 5,000 units EVERY 12 HOURS SUBQ 11/19/18 21:00 12/19/18 08:59 11/20/18 09:18 Lidocaine (Xylocaine 1% MPF 5ml) 10 ml Q8HRT N 11/20/18 15:00 12/20/18 14:59 Lorazepam (Ativan 2mg/ml 1ml) 0.5 mg Q4H PRN IV For Anxiety 11/19/18 19:00 11/25/18 18:59 Methylprednisolone Sodium Succinate (Solu-MEDROL) 60 mg EVERY 6 HOURS IV 11/20/18 00:00 12/19/18 00:00 11/20/18 17:14 Montelukast Sodium (Singulair) 10 mg QPM ORAL 11/20/18 16:30 12/19/18 16:29 11/20/18 17:14 Morphine Sulfate (Morphine Sulfate) 2 mg Q4H PRN IVP Severe Pain (Pain Scale 7-10) 11/19/18 18:30 11/25/18 18:29 11/20/18 02:41 Nitroglycerin (Ntg) 0.4 mg Q5M X 3 DOSES PRN SL Prn Chest Pain 11/19/18 18:30 12/18/18 21:14 Ondansetron HCl (Zofran) 4 mg Q6H PRN IVP Nausea & Vomiting 11/19/18 18:30 12/18/18 18:29 Phenytoin (Dilantin) 100 mg BID ORAL 11/20/18 09:00 12/19/18 08:59 11/20/18 17:14 Piperacillin Sod/ Tazobactam Sod 3.375 gm/Sodium Chloride 110 ml @ 27.5 mls/hr EVERY 8 HOURS IVPB 11/19/18 22:00 11/26/18 05:59 11/20/18 13:44 Pregabalin (Lyrica) 50 mg DAILY ORAL 11/20/18 09:00 12/19/18 08:59 11/20/18 09:18 Promethazine HCl/ Codeine (Phenergan with Codeine) 5 ml Q4H PRN ORAL For Cough 11/19/18 18:30 12/19/18 18:29 11/20/18 17:14 Temazepam (Restoril) 15 mg HSPRN PRN ORAL Insomnia 11/19/18 21:15 11/25/18 21:14 11/19/18 21:11 Theophylline (Fabrice-Dur) 100 mg EVERY 12 HOURS ORAL 11/19/18 21:00 12/19/18 08:59 11/20/18 09:15 Allergies: Coded Allergies: VANCOMYCIN (Verified Allergy, Unknown, red eyes, itchying, 10/10/16) Uncoded Allergies: Canned Food (Allergy, Unknown, 03/22/18) Nausea/Vomitting/Indigestion Subjective Awake, alert, responsive, complained about shortness of breath, complaining about cough. Objective Last Vital Signs Date Time Temp Pulse Resp B/P (MAP) Pulse Ox O2 Delivery O2 Flow Rate FiO2 11/20/18 16:53 90 21 98 Room Air 21 11/20/18 16:00 98.5 130/93 (105) Microbiology Date/Time Source Procedure Growth Status 11/19/18 11:47 Sputum Gram Stain Pending Resulted 11/19/18 11:47 Sputum Sputum Culture - Preliminary NORMAL UPPER RESPIRATORY SRUTHI AT 24 ... Resulted 11/19/18 03:00 Sputum Gram Stain - Final Resulted 11/19/18 03:00 Sputum Sputum Culture - Preliminary NORMAL UPPER RESPIRATORY SRUTHI AT 24 ... Resulted 11/18/18 20:35 Nasal Nares Influenza Types A,B Antigen (LOWELL) - Final Complete Intake and Output 11/19/18 11/20/18 19:00 07:00 Intake Total 480 ml 600 ml Balance 480 ml 600 ml Intake Oral 480 ml 600 ml # Voids 3 4 # Bowel Movements 1 Objective General: No acute distress, awake and alert HEENT: NCAT, sclera anicteric, PERRL, EOMI. Neck: Supple, no significant jugular venous distention, Lungs: Good inspiratory effort, decreased air in the bases, expiratory wheezes in anterior as well as posterior field of the lung, no Rales. Heart: Regular rate and rhythm, normal S1/S2, no murmur. Abdomen: soft, nontender, nondistended. Normoactive bowel sounds. / Rectal: Refused and deferred. Extremities: No Cyanosis , clubbing or edema. Neuro: A&O x 3, Able to move all extremities Skin: warm, no rash. Assessment/Plan Assessment/Plan Acute asthma exacerbation. History of Cerebrovascular disease. Hypertension. Hypercholesterolemia. Gastroesophageal reflux disease. History of seizure disorder. Coronary artery disease. TREATMENT: 1. Shortness of breath most likely due to acute asthma exacerbation. Pulmonary recommendation with Dr. Luis A Juares. intravenous Solu-Medrol and Zosyn IV. The patient is currently receiving DuoNeb. 2. Cerebrovascular disease. The patient is status post hemorrhagic stroke. 3. Hypertension. Continue amlodipine. 4. Hypercholesteremia. Continue Lipitor.. 5. Gastroesophageal reflux disease. Continue Protonix. 6. Seizure disorder. Continue Dilantin as above. 7. Coronary artery disease. Start the patient on Mucinex 600 mg twice a day. Follow-up with the laboratory in AM. Prophylaxis with heparin subcu twice a day. CODE STATUS is full code. Shlomo Garcia MD Nov 20, 2018 19:40
[2018-11-20 20:00] VITALS: BP 144/72
[2018-11-20] MEDS: guaiFENesin ER 600mg tab ORAL SCH (21:05)
[2018-11-21] MEDS: Lidocaine 1% MPF 10mg/ml 5ml HHN SCH ×4 (00:02→23:08)
[2018-11-21] MEDS: Solu-MEDROL 125mg Inj IV SCH ×5 (00:15→23:30)
[2018-11-21] MEDS: Albuterol/Ipratropium 3ml neb HHN SCH ×4 (03:30→20:22)
[2018-11-21] MEDS: Piperacillin/Tazobactam 3.375 GM in NS 110 ML IVPB SCH ×3 (06:03→21:25)
--- NOTE | 2018-11-21 07:29 | NUR ---
HAND-OFF: Report given to AMMY Krause.
--- NOTE | 2018-11-21 07:39 | NUR ---
NURSE NOTES: Report received from AMMY Bean. Pt sitting in chair, eating breakfast, awake and talkative, A/O x4, no complaints of pain, call light within reach.
[2018-11-21 08:00] VITALS: BP 154/74
[2018-11-21] MEDS: guaiFENesin ER 600mg tab ORAL SCH ×2 (08:33→16:59)
[2018-11-21] MEDS: Theophylline ER 100mg ORAL SCH ×2 (08:33→21:24)
[2018-11-21] MEDS: Phenytoin 100mg cap ORAL SCH ×2 (08:33→16:59)
[2018-11-21] MEDS: Atorvastatin 20mg tab ORAL SCH (08:33)
[2018-11-21] MEDS: Lyrica 50mg cap ORAL SCH (08:35)
[2018-11-21] MEDS: Heparin 5000 units/ml inj SUBQ SCH ×2 (08:38→21:29)
[2018-11-21] MEDS: Promethazine/Codeine 5ml UD ORAL PRN (11:07)
[2018-11-21 12:00] VITALS: BP 152/77
--- NOTE | 2018-11-21 12:08 | Pulmonology Progress Note ---
Assessment/Plan Problems: (1) Acute respiratory failure (2) Acute asthma exacerbation (3) Allergic asthma (4) CAD (coronary artery disease) (5) HTN (hypertension) (6) Cerebral vascular disease Assessment/Plan sputum has michele repeatedly, she has been on steroids repeatedly, will start Diflucan and ask ID to see. slightly better same dose steroids on Lidocain inhalers to control cough respiratory treatment check sputum, still pending iv abx dvt prophylaxis med/surg Subjective ROS Limited/Unobtainable: No Interval Events: still coughing , slowly better Allergies: Coded Allergies: VANCOMYCIN (Verified Allergy, Unknown, red eyes, itchying, 10/10/16) Uncoded Allergies: Canned Food (Allergy, Unknown, 03/22/18) Nausea/Vomitting/Indigestion Objective Last 24 Hour Vital Signs Date Time Temp Pulse Resp B/P (MAP) Pulse Ox O2 Delivery O2 Flow Rate FiO2 11/21/18 09:00 Room Air 11/21/18 08:45 83 14 92 Room Air 21 11/21/18 08:33 94 154/74 11/21/18 08:20 Room Air 11/21/18 08:20 Room Air 11/21/18 08:00 97.8 94 16 154/74 (100) 95 11/21/18 03:40 82 20 98 Room Air 21 11/21/18 03:30 80 20 96 Room Air 21 11/21/18 01:00 87 18 99 Room Air 21 11/21/18 00:15 21 11/21/18 00:03 84 18 97 Room Air 21 11/20/18 21:00 Room Air 11/20/18 20:00 97.9 93 19 144/72 (96) 94 11/20/18 19:51 90 20 96 Room Air 21 11/20/18 19:39 86 20 95 Room Air 21 11/20/18 16:53 90 21 98 Room Air 21 11/20/18 16:42 92 24 97 Room Air 21 11/20/18 16:00 98.5 80 18 130/93 (105) 97 11/20/18 13:35 91 21 96 Room Air 21 11/20/18 13:24 93 21 94 Room Air 21 Intake and Output 11/20/18 11/21/18 18:59 06:59 Intake Total 672.5 ml 1110.0 ml Balance 672.5 ml 1110.0 ml Intake Oral 480 ml 1000 ml IV Total 192.5 ml 110.0 ml # Voids 4 5 # Bowel Movements 1 General Appearance: WD/WN HEENT: normocephalic, anicteric Respiratory/Chest: chest wall non-tender, normal breath sounds Breasts: no masses Cardiovascular: normal rate Abdomen: soft, non tender, non distended Extremities: no clubbing Skin: no rash 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 Lymphatic: no neck adenopathy Microbiology Date/Time Source Procedure Growth Status 11/19/18 11:47 Sputum Gram Stain - Final Resulted 11/19/18 11:47 Sputum Culture - Preliminary Michele Albicans Usual Respiratory Vandana Resulted 11/19/18 03:00 Sputum Gram Stain - Final Complete 11/19/18 03:00 Sputum Culture - Final Michele Albicans Usual Respiratory Vandana Complete 11/18/18 20:35 Nasal Nares Influenza Types A,B Antigen (LOWELL) - Final Complete Current Medications Medications (Trade) Dose Ordered Sig/Mecca Route PRN Reason Start Time Stop Time Status Last Admin Dose Admin Albuterol/ Ipratropium (Albuterol/ Ipratropium) 3 ml Q4H PRN HHN dyspnea 11/19/18 18:30 11/23/18 18:29 11/20/18 16:42 Albuterol/ Ipratropium (Albuterol/ Ipratropium) 3 ml Q6HRT HHN 11/19/18 19:00 11/24/18 18:59 11/21/18 03:30 Amlodipine Besylate (Norvasc) 5 mg DAILY ORAL 11/20/18 09:00 12/19/18 08:59 11/21/18 08:33 Atorvastatin Calcium (Lipitor) 40 mg DAILY ORAL 11/20/18 09:00 12/19/18 08:59 11/21/18 08:33 Clopidogrel Bisulfate (Plavix) 75 mg DAILY ORAL 11/20/18 09:00 12/19/18 08:59 11/21/18 08:33 Dextrose (Dextrose 50%) 25 ml Q30M PRN IV Hypoglycemia 11/19/18 18:45 12/18/18 21:14 Dextrose (Dextrose 50%) 50 ml Q30M PRN IV Hypoglycemia 11/19/18 18:45 12/18/18 21:14 Guaifenesin (Mucinex ER) 600 mg TWICE A DAY ORAL 11/20/18 19:45 12/20/18 19:44 11/21/18 08:33 Heparin Sodium (Porcine) (Heparin 5000 units/ml) 5,000 units EVERY 12 HOURS SUBQ 11/19/18 21:00 12/19/18 08:59 11/21/18 08:38 Lidocaine (Xylocaine 1% MPF 5ml) 10 ml Q8HRT HHN 11/20/18 15:00 12/20/18 14:59 11/21/18 08:39 Lorazepam (Ativan 2mg/ml 1ml) 0.5 mg Q4H PRN IV For Anxiety 11/19/18 19:00 11/25/18 18:59 Methylprednisolone Sodium Succinate (Solu-MEDROL) 60 mg EVERY 6 HOURS IV 11/20/18 00:00 12/19/18 00:00 11/21/18 11:07 Montelukast Sodium (Singulair) 10 mg QPM ORAL 11/20/18 16:30 12/19/18 16:29 11/20/18 17:14 Morphine Sulfate (Morphine Sulfate) 2 mg Q4H PRN IVP Severe Pain (Pain Scale 7-10) 11/19/18 18:30 11/25/18 18:29 11/20/18 02:41 Nitroglycerin (Ntg) 0.4 mg Q5M X 3 DOSES PRN SL Prn Chest Pain 11/19/18 18:30 12/18/18 21:14 Ondansetron HCl (Zofran) 4 mg Q6H PRN IVP Nausea & Vomiting 11/19/18 18:30 12/18/18 18:29 Phenytoin (Dilantin) 100 mg BID ORAL 11/20/18 09:00 12/19/18 08:59 11/21/18 08:33 Piperacillin Sod/ Tazobactam Sod 3.375 gm/Sodium Chloride 110 ml @ 27.5 mls/hr EVERY 8 HOURS IVPB 11/19/18 22:00 11/26/18 05:59 11/21/18 06:03 Pregabalin (Lyrica) 50 mg DAILY ORAL 11/20/18 09:00 12/19/18 08:59 11/21/18 08:35 Promethazine HCl/ Codeine (Phenergan with Codeine) 5 ml Q4H PRN ORAL For Cough 11/19/18 18:30 12/19/18 18:29 11/21/18 11:07 Temazepam (Restoril) 15 mg HSPRN PRN ORAL Insomnia 11/19/18 21:15 11/25/18 21:14 11/19/18 21:11 Theophylline (Fabrice-Dur) 100 mg EVERY 12 HOURS ORAL 11/19/18 21:00 12/19/18 08:59 11/21/18 08:33 Luis A Juares MD Nov 21, 2018 12:08
--- NOTE | 2018-11-21 14:06 | NUR ---
NURSE NOTES: Pt has home med Levocetirizine, our pharmacy does not carry this specific medication. Our pharmacy carries Centirizine instead. Pt stated she is willing to take the alternative. Asked Dr. Garcia, if he would like to order.
--- NOTE | 2018-11-21 15:54 | Diagnostic Imaging Report ---
Clinical Indication: Shortness of breath, asthma Technique: Spiral acquisition obtained through the chest. No IV contrast utilized, per high resolution protocol. Axial 5 x 5 mm slices were reconstructed. Axial 1 mm thick slices were reconstructed using high resolution algorithm at 10 mm intervals. Multiplanar reconstructions generated. Total dose length product 630.79 mGycm. CTDIvol(s) 18.33 mGy. Dose reduction achieved using automated exposure control Comparison: none Findings: Exam is limited due to respiratory motion artifact. Scarring with calcification is seen in the left lung apex. Subpleural calcified 3 mm nodule is seen in the periphery of the right upper lobe. There is minimal bronchial wall thickening involving the perihilar bronchi bilaterally. There is some calcific peribronchial scarring in the right lower lobe. On the high-resolution images, no generalized interstitial septal thickening, bronchiectasis, nodularity, or groundglass opacity demonstrated. There is no evidence of infiltrate, effusion, congestion, or mass demonstrated. The main pulmonary artery is ectatic, measuring up to 4 cm in diameter. The heart size is normal. No pericardial effusion. No mediastinal or hilar mass or adenopathy. Calcified granulomatous lymph nodes are noted. There is questionably a subcentimeter nodule in the right thyroid lobe. 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 There are coronary artery calcifications. No axillary or chest wall mass or adenopathy demonstrated. There is a 3.4 cm subcutaneous lesion in the upper posterior thoracic region midline, demonstrating high fluid attenuation. There are degenerative changes of the thoracic spine noted. The bones are otherwise unremarkable. There is a small hiatal hernia and equivocal minimal distal esophageal wall thickening. The included upper abdominal anatomy is remarkable for one or more granulomatous calcifications within the right hepatic lobe. Multiple right renal cysts are noted. The stomach appears to be filled with food Impression: Mild central bronchial wall thickening. Areas of parenchymal scarring with calcification as described above. Generalized interstitial process, bronchiectasis, or chronic fibrotic changes are not demonstrated. No acute pulmonary process demonstrated Ectatic main pulmonary artery, raises concern for pulmonary arterial hypertension In addition to the parenchymal calcifications, there is evidence of granulomas calcification within multiple the spinal lymph nodes in the right hepatic lobe 3.4 cm subcutaneous lesion in the upper posterior thoracic region, likely a sebaceous cyst. Correlate with clinical findings. Small hiatal hernia. Possible minimal distal esophageal wall thickening, could indicate esophagitis Subcentimeter right lobe thyroid nodule. 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
[2018-11-21 16:00] VITALS: BP 141/73
--- NOTE | 2018-11-21 16:15 | NUR ---
CASE MANAGEMENT:REVIEW 11/21/18 SI; RESPIRATORY FAILURE ASTHMA EXACERBATION. SPUTUM(+) CHRIS 98.2 87 20 138/84 98% ON RA IS: IV SOLUMEDROL Q6HRS IV ZOSYN Q8HRS ZYRTEC PO QD MUCINEX PO BID SINGULAR PO QPM NORVASC PO QD PLAVIX PO QD LYRICA PO QD MARCIAL-DUR PO Q12 DUONEB HHN Q6HRS RTC : MED/SURG STATUS 3 EAST DCP: PATIENT IS FROM HOME
[2018-11-21] MEDS: Montelukast 10mg tablet ORAL SCH (17:00)
[2018-11-21] MEDS ORDERED: XYLOCAINE MPF INJ (17:22)
--- NOTE | 2018-11-21 17:22 | NUR ---
NURSE NOTES: PT is requesting to have Lidocaine at home, same as she get here. Spoke to Dr. Garcia regarding pt's request. Dr. Garcia ordered for pt to have lidocaine vial at home. Order entered on [employer].
--- NOTE | 2018-11-21 18:01 | Internal Med Progress Note ---
Subjective Physician Name Shlomo Garcia Attending Physician Shlomo Garcia MD Current Medications Medications (Trade) Dose Ordered Sig/Mecca Route PRN Reason Start Time Stop Time Status Last Admin Dose Admin Albuterol/ Ipratropium (Albuterol/ Ipratropium) 3 ml Q4H PRN HHN dyspnea 11/19/18 18:30 11/23/18 18:29 11/20/18 16:42 Albuterol/ Ipratropium (Albuterol/ Ipratropium) 3 ml Q6HRT N 11/19/18 19:00 11/24/18 18:59 11/21/18 03:30 Amlodipine Besylate (Norvasc) 5 mg DAILY ORAL 11/20/18 09:00 12/19/18 08:59 11/21/18 08:33 Atorvastatin Calcium (Lipitor) 40 mg DAILY ORAL 11/20/18 09:00 12/19/18 08:59 11/21/18 08:33 Cetirizine HCl (ZyrTEC) 5 mg DAILY ORAL 11/22/18 09:00 12/22/18 08:59 Clopidogrel Bisulfate (Plavix) 75 mg DAILY ORAL 11/20/18 09:00 12/19/18 08:59 11/21/18 08:33 Dextrose (Dextrose 50%) 25 ml Q30M PRN IV Hypoglycemia 11/19/18 18:45 12/18/18 21:14 Dextrose (Dextrose 50%) 50 ml Q30M PRN IV Hypoglycemia 11/19/18 18:45 12/18/18 21:14 Guaifenesin (Mucinex ER) 600 mg TWICE A DAY ORAL 11/20/18 19:45 12/20/18 19:44 11/21/18 16:59 Heparin Sodium (Porcine) (Heparin 5000 units/ml) 5,000 units EVERY 12 HOURS SUBQ 11/19/18 21:00 12/19/18 08:59 11/21/18 08:38 Lidocaine (Xylocaine 1% MPF 5ml) 10 ml Q8HRT N 11/20/18 15:00 12/20/18 14:59 11/21/18 15:20 Lorazepam (Ativan 2mg/ml 1ml) 0.5 mg Q4H PRN IV For Anxiety 11/19/18 19:00 11/25/18 18:59 Methylprednisolone Sodium Succinate (Solu-MEDROL) 60 mg EVERY 6 HOURS IV 11/20/18 00:00 12/19/18 00:00 11/21/18 16:59 Montelukast Sodium (Singulair) 10 mg QPM ORAL 11/20/18 16:30 12/19/18 16:29 11/21/18 17:00 Morphine Sulfate (Morphine Sulfate) 2 mg Q4H PRN IVP Severe Pain (Pain Scale 7-10) 11/19/18 18:30 11/25/18 18:29 11/20/18 02:41 Nitroglycerin (Ntg) 0.4 mg Q5M X 3 DOSES PRN SL Prn Chest Pain 11/19/18 18:30 12/18/18 21:14 Ondansetron HCl (Zofran) 4 mg Q6H PRN IVP Nausea & Vomiting 11/19/18 18:30 12/18/18 18:29 Phenytoin (Dilantin) 100 mg BID ORAL 11/20/18 09:00 12/19/18 08:59 11/21/18 16:59 Piperacillin Sod/ Tazobactam Sod 3.375 gm/Sodium Chloride 110 ml @ 27.5 mls/hr EVERY 8 HOURS IVPB 11/19/18 22:00 11/26/18 05:59 11/21/18 13:02 Pregabalin (Lyrica) 50 mg DAILY ORAL 11/20/18 09:00 12/19/18 08:59 11/21/18 08:35 Promethazine HCl/ Codeine (Phenergan with Codeine) 5 ml Q4H PRN ORAL For Cough 11/19/18 18:30 12/19/18 18:29 11/21/18 11:07 Temazepam (Restoril) 15 mg HSPRN PRN ORAL Insomnia 11/19/18 21:15 11/25/18 21:14 11/19/18 21:11 Theophylline (Fabrice-Dur) 100 mg EVERY 12 HOURS ORAL 11/19/18 21:00 12/19/18 08:59 11/21/18 08:33 Allergies: Coded Allergies: VANCOMYCIN (Verified Allergy, Unknown, red eyes, itchying, 10/10/16) Uncoded Allergies: Canned Food (Allergy, Unknown, 03/22/18) Nausea/Vomitting/Indigestion Subjective Awake, alert, responsive, complained about less shortness of breath and cough, sitting up in a chair eating dinner, no acute distress. Objective Last Vital Signs Date Time Temp Pulse Resp B/P (MAP) Pulse Ox O2 Delivery O2 Flow Rate FiO2 11/21/18 16:20 75 16 98 Room Air 21 11/21/18 16:00 98.8 141/73 (95) 11/21/18 15:25 2.0 Microbiology Date/Time Source Procedure Growth Status 11/19/18 11:47 Sputum Gram Stain - Final Resulted 11/19/18 11:47 Sputum Culture - Preliminary Suha Albicans Usual Respiratory Vandana Resulted 11/19/18 03:00 Sputum Gram Stain - Final Complete 11/19/18 03:00 Sputum Culture - Final Suha Albicans Usual Respiratory Vandana Complete 11/18/18 20:35 Nasal Nares Influenza Types A,B Antigen (LOWELL) - Final Complete Intake and Output 11/20/18 11/21/18 19:00 07:00 Intake Total 672.5 ml 1110.0 ml Balance 672.5 ml 1110.0 ml Intake Oral 480 ml 1000 ml IV Total 192.5 ml 110.0 ml # Voids 4 5 # Bowel Movements 1 Objective General: No acute distress, awake and alert HEENT: NCAT, sclera anicteric, PERRL, EOMI. Neck: Supple, no significant jugular venous distention, Lungs: Good inspiratory effort, decreased air in the bases, expiratory wheezes in anterior as well as posterior field of the lung, no Rales. Heart: Regular rate and rhythm, normal S1/S2, no murmur. Abdomen: soft, nontender, nondistended. Normoactive bowel sounds. / Rectal: Refused and deferred. Extremities: No Cyanosis , clubbing or edema. Neuro: A&O x 3, Able to move all extremities Skin: warm, no rash. Assessment/Plan Assessment/Plan Acute asthma exacerbation. History of Cerebrovascular disease. Hypertension. Hypercholesterolemia. Gastroesophageal reflux disease. History of seizure disorder. Coronary artery disease. TREATMENT: 1. Shortness of breath most likely due to acute asthma exacerbation. Pulmonary recommendation with Dr. Luis A Juares. intravenous Solu-Medrol and Zosyn IV. The patient is currently receiving DuoNeb. 2. Cerebrovascular disease. The patient is status post hemorrhagic stroke. 3. Hypertension. Continue amlodipine. 4. Hypercholesteremia. Continue Lipitor.. 5. Gastroesophageal reflux disease. Continue Protonix. 6. Seizure disorder. Continue Dilantin as above. 7. Coronary artery disease. on Mucinex 600 mg twice a day. Follow-up with the laboratory in AM. Prophylaxis with heparin subcu twice a day. CODE STATUS is full code. DC Planning for Monday Shlomo Garcia MD Nov 21, 2018 18:01
--- NOTE | 2018-11-21 19:42 | NUR ---
HAND-OFF: Report given to AMMY Guzman.
--- NOTE | 2018-11-21 19:45 | NUR ---
NURSE NOTES: Received report from AMMY Krause. Received pt sitting in chair, AOX4, denies pain, no SOB at this time. no distress noted. IV R FA #24 patent and intact. Call light within reach. Will continue to monitor.
[2018-11-21 20:00] VITALS: BP 150/79
[2018-11-22] VITALS: BP 138/84
[2018-11-22] MEDS: Albuterol/Ipratropium 3ml neb HHN SCH ×4 (01:23→20:43)
[2018-11-22 04:00] VITALS: BP 158/80
[2018-11-22] MEDS: Piperacillin/Tazobactam 3.375 GM in NS 110 ML IVPB SCH ×2 (05:19→13:31)
[2018-11-22] MEDS: Solu-MEDROL 125mg Inj IV SCH ×3 (05:20→17:03)
--- NOTE | 2018-11-22 05:42 | NUR ---
NURSE NOTES: Pt refused am lab draw.
--- NOTE | 2018-11-22 07:00 | NUR ---
HAND-OFF: Report given to AMMY Krause. Pt in stable condition.
--- NOTE | 2018-11-22 07:16 | NUR ---
NURSE NOTES: Report received from AMMY Guzman. Pt in bathroom doing self-grooming care, talkative, no complaints of pain.
[2018-11-22 08:00] VITALS: BP 190/99
[2018-11-22] MEDS: Atorvastatin 20mg tab ORAL SCH (08:06)
[2018-11-22] MEDS: Theophylline ER 100mg ORAL SCH ×2 (08:06→20:40)
[2018-11-22] MEDS: Lyrica 50mg cap ORAL SCH (08:07)
[2018-11-22] MEDS: guaiFENesin ER 600mg tab ORAL SCH ×2 (08:07→17:03)
[2018-11-22] MEDS: Phenytoin 100mg cap ORAL SCH ×2 (08:07→17:03)
[2018-11-22] MEDS: Heparin 5000 units/ml inj SUBQ SCH ×2 (08:10→20:46)
[2018-11-22] MEDS: Lidocaine 1% MPF 10mg/ml 5ml HHN SCH ×3 (08:12→23:00)
[2018-11-22 12:00] VITALS: BP 143/75
--- NOTE | 2018-11-22 12:00 | Pulmonology Progress Note ---
Assessment/Plan Problems: (1) Acute respiratory failure (2) Acute asthma exacerbation (3) Allergic asthma (4) CAD (coronary artery disease) (5) HTN (hypertension) (6) Cerebral vascular disease Assessment/Plan CT chest reviewed, Central bronchial wall thickening slightly better same dose steroids, very responsive to steroids on Lidocain inhalers to control cough respiratory treatment check sputum, still pending iv abx dvt prophylaxis med/surg Subjective ROS Limited/Unobtainable: No Interval Events: less cough Constitutional: Reports: no symptoms HEENT: Repors: no symptoms Allergies: Coded Allergies: VANCOMYCIN (Verified Allergy, Unknown, red eyes, itchying, 10/10/16) Uncoded Allergies: Canned Food (Allergy, Unknown, 03/22/18) Nausea/Vomitting/Indigestion Objective Last 24 Hour Vital Signs Date Time Temp Pulse Resp B/P (MAP) Pulse Ox O2 Delivery O2 Flow Rate FiO2 11/22/18 09:40 100 22 98 Room Air 21 11/22/18 09:40 101 22 98 Room Air 21 11/22/18 09:00 Room Air 11/22/18 08:16 96 Nasal Cannula 2.0 28 11/22/18 08:16 Nasal Cannula 2.0 28 11/22/18 08:15 100 22 95 Room Air 21 11/22/18 08:14 101 22 96 Room Air 21 11/22/18 08:07 75 158/80 11/22/18 08:00 98.8 81 19 190/99 (129) 99 11/22/18 04:00 98.1 75 20 158/80 (106) 97 11/22/18 01:33 91 20 98 Room Air 21 11/22/18 01:23 81 20 95 Room Air 21 11/22/18 00:00 98.2 87 20 138/84 (102) 98 11/22/18 00:00 93 20 99 Room Air 21 11/21/18 23:08 78 18 93 Room Air 21 11/21/18 21:00 Room Air 11/21/18 20:32 88 20 98 Nasal Cannula 2.0 28 11/21/18 20:22 90 20 95 Nasal Cannula 2.0 28 11/21/18 20:22 Nasal Cannula 2.0 28 11/21/18 20:22 95 Nasal Cannula 2.0 28 11/21/18 20:00 98.1 81 20 150/79 (102) 97 11/21/18 16:20 75 16 98 Room Air 21 11/21/18 16:00 98.8 86 16 141/73 (95) 92 11/21/18 15:25 80 18 93 Nasal Cannula 2.0 28 11/21/18 12:30 Room Air 11/21/18 12:30 Room Air 11/21/18 12:00 97.2 94 18 152/77 (102) 94 Intake and Output 11/21/18 11/22/18 19:00 07:00 Intake Total 300 ml 377.5 ml Balance 300 ml 377.5 ml Intake Oral 300 ml 240 ml IV Total 137.5 ml # Voids 2 3 Objective General Appearance: WD/WN HEENT: normocephalic, anicteric Respiratory/Chest: chest wall non-tender, less rhonchi, small wheezing Breasts: no masses Cardiovascular: normal rate Abdomen: soft, non tender, non distended Extremities: no clubbing Skin: no rash 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 Lymphatic: no neck adenopathy Current Medications Medications (Trade) Dose Ordered Sig/Mecca Route PRN Reason Start Time Stop Time Status Last Admin Dose Admin Albuterol/ Ipratropium (Albuterol/ Ipratropium) 3 ml Q4H PRN HHN dyspnea 11/19/18 18:30 11/23/18 18:29 11/20/18 16:42 Albuterol/ Ipratropium (Albuterol/ Ipratropium) 3 ml Q6HRT HHN 11/19/18 19:00 11/24/18 18:59 11/22/18 08:12 Amlodipine Besylate (Norvasc) 5 mg DAILY ORAL 11/20/18 09:00 12/19/18 08:59 11/22/18 08:07 Atorvastatin Calcium (Lipitor) 40 mg DAILY ORAL 11/20/18 09:00 12/19/18 08:59 11/22/18 08:06 Cetirizine HCl (ZyrTEC) 5 mg DAILY ORAL 11/22/18 09:00 12/22/18 08:59 11/22/18 08:55 Clopidogrel Bisulfate (Plavix) 75 mg DAILY ORAL 11/20/18 09:00 12/19/18 08:59 11/22/18 08:06 Dextrose (Dextrose 50%) 25 ml Q30M PRN IV Hypoglycemia 11/19/18 18:45 12/18/18 21:14 Dextrose (Dextrose 50%) 50 ml Q30M PRN IV Hypoglycemia 11/19/18 18:45 12/18/18 21:14 Guaifenesin (Mucinex ER) 600 mg TWICE A DAY ORAL 11/20/18 19:45 12/20/18 19:44 11/22/18 08:07 Heparin Sodium (Porcine) (Heparin 5000 units/ml) 5,000 units EVERY 12 HOURS SUBQ 11/19/18 21:00 12/19/18 08:59 11/22/18 08:10 Lidocaine (Xylocaine 1% MPF 5ml) 10 ml Q8HRT HHN 11/20/18 15:00 12/20/18 14:59 11/22/18 08:12 Lorazepam (Ativan 2mg/ml 1ml) 0.5 mg Q4H PRN IV For Anxiety 11/19/18 19:00 11/25/18 18:59 Methylprednisolone Sodium Succinate (Solu-MEDROL) 60 mg EVERY 6 HOURS IV 11/20/18 00:00 12/19/18 00:00 11/22/18 11:50 Montelukast Sodium (Singulair) 10 mg QPM ORAL 11/20/18 16:30 12/19/18 16:29 11/21/18 17:00 Morphine Sulfate (Morphine Sulfate) 2 mg Q4H PRN IVP Severe Pain (Pain Scale 7-10) 11/19/18 18:30 11/25/18 18:29 11/20/18 02:41 Nitroglycerin (Ntg) 0.4 mg Q5M X 3 DOSES PRN SL Prn Chest Pain 11/19/18 18:30 12/18/18 21:14 Ondansetron HCl (Zofran) 4 mg Q6H PRN IVP Nausea & Vomiting 11/19/18 18:30 12/18/18 18:29 Phenytoin (Dilantin) 100 mg BID ORAL 11/20/18 09:00 12/19/18 08:59 11/22/18 08:07 Piperacillin Sod/ Tazobactam Sod 3.375 gm/Sodium Chloride 110 ml @ 27.5 mls/hr EVERY 8 HOURS IVPB 11/19/18 22:00 11/26/18 05:59 11/22/18 05:19 Pregabalin (Lyrica) 50 mg DAILY ORAL 11/20/18 09:00 12/19/18 08:59 11/22/18 08:07 Promethazine HCl/ Codeine (Phenergan with Codeine) 5 ml Q4H PRN ORAL For Cough 11/19/18 18:30 12/19/18 18:29 11/21/18 11:07 Temazepam (Restoril) 15 mg HSPRN PRN ORAL Insomnia 11/19/18 21:15 11/25/18 21:14 11/19/18 21:11 Theophylline (Fabrice-Dur) 100 mg EVERY 12 HOURS ORAL 11/19/18 21:00 12/19/18 08:59 11/22/18 08:06 Luis A Juares MD Nov 22, 2018 12:00
--- NOTE | 2018-11-22 13:15 | Consultation ---
History of Present Illness General Date patient seen: Nov 22, 2018 Chief Complaint: Dyspnea/Respdistress Present Illness HPI 83 y/o F with hx of HTN, asthma, HLD, GERD, Appendectomy, CAD s/p stent November 2017, seizures disorder, hemorriagic CVA, TIA presents to ED on 11/18 with SOB, wheezing with no relief at home with rescue inhaler. Denied cough, CP, f/c, sick contacts, recent travel, dysuria, TRAN. Allergies: Coded Allergies: VANCOMYCIN (Verified Allergy, Unknown, red eyes, itchying, 10/10/16) Uncoded Allergies: Canned Food (Allergy, Unknown, 03/22/18) Nausea/Vomitting/Indigestion Medication History Scheduled Albuterol Sulfate (Ventolin Hfa), 1 PUFF INH EVERY 6 HOURS Amlodipine Besylate* (Amlodipine Besylate*), 5 MG ORAL DAILY, (Reported) Atorvastatin (Lipitor), 40 MG ORAL DAILY, (Reported) Baclofen* (Baclofen*), 10 MG ORAL DAILY, (Reported) Clopidogrel* (Clopidogrel*), 75 MG ORAL DAILY, (Reported) Dexlansoprazole (Dexilant), 60 MG ORAL DAILY, (Reported) Isosorbide Dinitrate* (Isordil*), 30 MG ORAL DAILY, (Reported) Levocetirizine Dihydrochloride (Levocetirizine Dihydrochloride), 5 MG ORAL DAILY , (Reported) Levofloxacin (Levofloxacin*), 500 MG ORAL DAILY, (Reported) Lidocaine (Xylocaine-Mpf 1% Vial), 10 ML INJ Q8HR, (Reported) Losartan/Hydrochlorothiazide (Losartan-Hctz 100-12.5 Mg Tab), 1 TAB ORAL DAILY, (Reported) Montelukast Sodium* (Montelukast Sodium*), 10 MG ORAL DAILY, (Reported) Phenytoin Sodium Extended* (Phenytoin Sodium Extended*), 100 MG ORAL BID, ( Reported) Pregabalin (Lyrica), 50 MG ORAL DAILY, (Reported) Miscellaneous Medications [Bevespi], (Reported) Discontinued Medications Codeine/Promethazine Hcl* (Promethazine-Codeine Syrup*), 5 ML ORAL Q8HR PRN for For Cough, (Reported) Discontinued Reason: Pt stopped taking med Cyclosporine (Restasis), 1 DROP BOTH EYES EVERY 12 HOURS, (Reported) Discontinued Reason: Pt stopped taking med Fluoxetine Hcl* (Prozac*), 20 MG ORAL DAILY, (Reported) Discontinued Reason: Pt stopped taking med Fluticasone/Salmeterol (Advair 250-50 Diskus), 1 PUFF INH EVERY 12 HOURS Discontinued Reason: Pt stopped taking med Hydroxyzine HCl (Hydroxyzine HCl), 25 MG ORAL Q6H PRN Discontinued Reason: Pt stopped taking med Isosorbide (Isosorbide), 30 MG MC, (Reported) Discontinued Reason: Prescription changed Labetalol Hcl* (Labetalol Hcl*), 100 MG IV DAILY, (Reported) Discontinued Reason: Pt stopped taking med Loratadine (Loratadine), 10 MG PO DAILY, (Reported) Discontinued Reason: Pt stopped taking med Methylprednisolone (Medrol), 4 MG PO, (Reported) Discontinued Reason: Pt stopped taking med Olopatadine HCl (Pazeo), 2.5 ML OP, (Reported) Discontinued Reason: Pt stopped taking med Pantoprazole* (Protonix*), 40 MG ORAL DAILY, (Reported) Discontinued Reason: Pt stopped taking med Pregabalin (Lyrica), 50 MG ORAL Q12HR, (Reported) Discontinued Reason: Pt stopped taking med Theophylline (Theodur*), 100 MG ORAL EVERY 12 HOURS Discontinued Reason: Pt stopped taking med Valsartan/Hydrochlorothiazide 160-12.5 (Valsartan-Hctz 160-12.5 Mg Tab), 1 TAB ORAL Q12HR, (Reported) Discontinued Reason: Pt stopped taking med Patient History Healthcare decision maker N Resuscitation status Full Code Advanced Directive on File Patient History Narrative Pmhx: as above Shx: The patient is a . The patient is single. The patient lives alone. The patient denies tobacco or alcohol use. Fhx non contributory Review of Systems All Other Systems: negative except mentioned in HPI Physical Exam Physical Exam Narrative General Appearance: WD/WN Lines, tubes and drains: peripheral HEENT: normocephalic, atraumatic Neck: non-tender, supple Respiratory/Chest: chest wall non-tender, rhonchi - left, rhonchi - right Breasts: no masses Cardiovascular/Chest: normal rate Abdomen: normal bowel sounds, non tender Genitourinary/Rectal: normal genital exam, normal rectal exam Extremities: normal range of motion Skin Exam: normal pigmentation Last 24 Hour Vital Signs Date Time Temp Pulse Resp B/P (MAP) Pulse Ox O2 Delivery O2 Flow Rate FiO2 11/22/18 09:40 100 22 98 Room Air 21 11/22/18 09:40 101 22 98 Room Air 21 11/22/18 09:00 Room Air 11/22/18 08:16 96 Nasal Cannula 2.0 28 11/22/18 08:16 Nasal Cannula 2.0 28 11/22/18 08:15 100 22 95 Room Air 21 11/22/18 08:14 101 22 96 Room Air 21 11/22/18 08:07 75 158/80 11/22/18 08:00 98.8 81 19 190/99 (129) 99 11/22/18 04:00 98.1 75 20 158/80 (106) 97 11/22/18 01:33 91 20 98 Room Air 21 11/22/18 01:23 81 20 95 Room Air 11/22/18 00:00 98.2 87 20 138/84 (102) 98 11/22/18 00:00 93 20 99 Room Air 21 11/21/18 23:08 78 18 93 Room Air 21 11/21/18 21:00 Room Air 11/21/18 20:32 88 20 98 Nasal Cannula 2.0 28 11/21/18 20:22 90 20 95 Nasal Cannula 2.0 28 11/21/18 20:22 Nasal Cannula 2.0 28 11/21/18 20:22 95 Nasal Cannula 2.0 28 11/21/18 20:00 98.1 81 20 150/79 (102) 97 11/21/18 16:20 75 16 98 Room Air 21 11/21/18 16:00 98.8 86 16 141/73 (95) 92 11/21/18 15:25 80 18 93 Nasal Cannula 2.0 28 Intake and Output 11/21/18 11/22/18 18:59 06:59 Intake Total 300 ml 377.5 ml Balance 300 ml 377.5 ml Intake Oral 300 ml 240 ml IV Total 137.5 ml # Voids 2 3 Height (Feet): 5 Height (Inches): 2.00 Weight (Pounds): 144 Medications Current Medications Medications (Trade) Dose Ordered Sig/Mecca Route PRN Reason Start Time Stop Time Status Last Admin Dose Admin Albuterol/ Ipratropium (Albuterol/ Ipratropium) 3 ml Q4H PRN HHN dyspnea 11/19/18 18:30 11/23/18 18:29 11/20/18 16:42 Albuterol/ Ipratropium (Albuterol/ Ipratropium) 3 ml Q6HRT HHN 11/19/18 19:00 11/24/18 18:59 11/22/18 08:12 Amlodipine Besylate (Norvasc) 5 mg DAILY ORAL 11/20/18 09:00 12/19/18 08:59 11/22/18 08:07 Atorvastatin Calcium (Lipitor) 40 mg DAILY ORAL 11/20/18 09:00 12/19/18 08:59 11/22/18 08:06 Cetirizine HCl (ZyrTEC) 5 mg DAILY ORAL 11/22/18 09:00 12/22/18 08:59 11/22/18 08:55 Clopidogrel Bisulfate (Plavix) 75 mg DAILY ORAL 11/20/18 09:00 12/19/18 08:59 11/22/18 08:06 Dextrose (Dextrose 50%) 25 ml Q30M PRN IV Hypoglycemia 11/19/18 18:45 12/18/18 21:14 Dextrose (Dextrose 50%) 50 ml Q30M PRN IV Hypoglycemia 11/19/18 18:45 12/18/18 21:14 Guaifenesin (Mucinex ER) 600 mg TWICE A DAY ORAL 11/20/18 19:45 12/20/18 19:44 11/22/18 08:07 Heparin Sodium (Porcine) (Heparin 5000 units/ml) 5,000 units EVERY 12 HOURS SUBQ 11/19/18 21:00 12/19/18 08:59 11/22/18 08:10 Lidocaine (Xylocaine 1% MPF 5ml) 10 ml Q8HRT N 11/20/18 15:00 12/20/18 14:59 11/22/18 08:12 Lorazepam (Ativan 2mg/ml 1ml) 0.5 mg Q4H PRN IV For Anxiety 11/19/18 19:00 11/25/18 18:59 Methylprednisolone Sodium Succinate (Solu-MEDROL) 60 mg EVERY 6 HOURS IV 11/20/18 00:00 12/19/18 00:00 11/22/18 11:50 Montelukast Sodium (Singulair) 10 mg QPM ORAL 11/20/18 16:30 12/19/18 16:29 11/21/18 17:00 Morphine Sulfate (Morphine Sulfate) 2 mg Q4H PRN IVP Severe Pain (Pain Scale 7-10) 11/19/18 18:30 11/25/18 18:29 11/20/18 02:41 Nitroglycerin (Ntg) 0.4 mg Q5M X 3 DOSES PRN SL Prn Chest Pain 11/19/18 18:30 12/18/18 21:14 Ondansetron HCl (Zofran) 4 mg Q6H PRN IVP Nausea & Vomiting 11/19/18 18:30 12/18/18 18:29 Phenytoin (Dilantin) 100 mg BID ORAL 11/20/18 09:00 12/19/18 08:59 11/22/18 08:07 Piperacillin Sod/ Tazobactam Sod 3.375 gm/Sodium Chloride 110 ml @ 27.5 mls/hr EVERY 8 HOURS IVPB 11/19/18 22:00 11/26/18 05:59 11/22/18 05:19 Pregabalin (Lyrica) 50 mg DAILY ORAL 11/20/18 09:00 12/19/18 08:59 11/22/18 08:07 Promethazine HCl/ Codeine (Phenergan with Codeine) 5 ml Q4H PRN ORAL For Cough 11/19/18 18:30 12/19/18 18:29 11/21/18 11:07 Temazepam (Restoril) 15 mg HSPRN PRN ORAL Insomnia 11/19/18 21:15 11/25/18 21:14 11/19/18 21:11 Theophylline (Fabrice-Dur) 100 mg EVERY 12 HOURS ORAL 11/19/18 21:00 12/19/18 08:59 11/22/18 08:06 Assessment/Plan Assessment/Plan Abx: Zosyn 11/18- Assessment: Asthma exacerbation/acute bronchitis -CT chest: Mild central bronchial wall thickening. Areas of parenchymal scarring with calcification as described above. Generalized interstitial process , bronchiectasis, or chronic fibrotic changes are not demonstrated. No acute pulmonary process demonstrated. Ectatic main pulmonary artery, raises concern for pulmonary arterial hypertension. In addition to the parenchymal calcifications, there is evidence of granulomas calcification within multiple the spinal lymph nodes in the right hepatic lobe. 3.4 cm subcutaneous lesion in the upper posterior thoracic region, likely a sebaceous cyst. Correlate with clinical findings. -CXR: Questionable left lung nodules, not evident previously if real. Recommend follow-up chest radiographs, consideration for CT should lesion failed to resolve. Biapical chronic pleural and parenchymal scarring - -sp cx C. albicans; colonizer -Influenza sc neg Afebrile No leukocytosis -u/a neg HTN asthma HLD GERD Appendectomy CAD s/p stent November 2017 seizures disorder hemorrhagic CVA TIA Plan: -Switch Zosyn #5/7 to PO Levaquin -f.u cx -Monitor CBC/CMP, temperatures Thank you for this consultation. Will continue to follow along with you. Gilda Keene M.D. Nov 22, 2018 13:15
[2018-11-22] MEDS: Albuterol/Ipratropium 3ml neb HHN PRN (15:46)
[2018-11-22 16:00] VITALS: BP 158/85
[2018-11-22] MEDS: Montelukast 10mg tablet ORAL SCH (17:03)
--- NOTE | 2018-11-22 18:26 | Internal Med Progress Note ---
Subjective Date of Service: Nov 22, 2018 Physician Name Hank Toure Attending Physician Shlmoo Garcia MD Current Medications Medications (Trade) Dose Ordered Sig/Mecca Route PRN Reason Start Time Stop Time Status Last Admin Dose Admin Albuterol/ Ipratropium (Albuterol/ Ipratropium) 3 ml Q4H PRN HHN dyspnea 11/19/18 18:30 11/23/18 18:29 11/22/18 15:46 Albuterol/ Ipratropium (Albuterol/ Ipratropium) 3 ml Q6HRT HHN 11/19/18 19:00 11/24/18 18:59 11/22/18 08:12 Amlodipine Besylate (Norvasc) 5 mg DAILY ORAL 11/20/18 09:00 12/19/18 08:59 11/22/18 08:07 Atorvastatin Calcium (Lipitor) 40 mg DAILY ORAL 11/20/18 09:00 12/19/18 08:59 11/22/18 08:06 Cetirizine HCl (ZyrTEC) 5 mg DAILY ORAL 11/22/18 09:00 12/22/18 08:59 11/22/18 08:55 Clopidogrel Bisulfate (Plavix) 75 mg DAILY ORAL 11/20/18 09:00 12/19/18 08:59 11/22/18 08:06 Dextrose (Dextrose 50%) 25 ml Q30M PRN IV Hypoglycemia 11/19/18 18:45 12/18/18 21:14 Dextrose (Dextrose 50%) 50 ml Q30M PRN IV Hypoglycemia 11/19/18 18:45 12/18/18 21:14 Guaifenesin (Mucinex ER) 600 mg TWICE A DAY ORAL 11/20/18 19:45 12/20/18 19:44 11/22/18 17:03 Heparin Sodium (Porcine) (Heparin 5000 units/ml) 5,000 units EVERY 12 HOURS SUBQ 11/19/18 21:00 12/19/18 08:59 11/22/18 08:10 Levofloxacin (Levaquin) 250 mg DAILY ORAL 11/23/18 09:00 11/30/18 08:59 Lidocaine (Xylocaine 1% MPF 5ml) 10 ml Q8HRT HHN 11/20/18 15:00 12/20/18 14:59 11/22/18 15:46 Lorazepam (Ativan 2mg/ml 1ml) 0.5 mg Q4H PRN IV For Anxiety 11/19/18 19:00 11/25/18 18:59 Methylprednisolone Sodium Succinate (Solu-MEDROL) 60 mg EVERY 6 HOURS IV 11/20/18 00:00 12/19/18 00:00 11/22/18 17:03 Montelukast Sodium (Singulair) 10 mg QPM ORAL 11/20/18 16:30 12/19/18 16:29 11/22/18 17:03 Morphine Sulfate (Morphine Sulfate) 2 mg Q4H PRN IVP Severe Pain (Pain Scale 7-10) 11/19/18 18:30 11/25/18 18:29 11/20/18 02:41 Nitroglycerin (Ntg) 0.4 mg Q5M X 3 DOSES PRN SL Prn Chest Pain 11/19/18 18:30 12/18/18 21:14 Ondansetron HCl (Zofran) 4 mg Q6H PRN IVP Nausea & Vomiting 11/19/18 18:30 12/18/18 18:29 Phenytoin (Dilantin) 100 mg BID ORAL 11/20/18 09:00 12/19/18 08:59 11/22/18 17:03 Pregabalin (Lyrica) 50 mg DAILY ORAL 11/20/18 09:00 12/19/18 08:59 11/22/18 08:07 Promethazine HCl/ Codeine (Phenergan with Codeine) 5 ml Q4H PRN ORAL For Cough 11/19/18 18:30 12/19/18 18:29 11/21/18 11:07 Temazepam (Restoril) 15 mg HSPRN PRN ORAL Insomnia 11/19/18 21:15 11/25/18 21:14 11/19/18 21:11 Theophylline (Fabrice-Dur) 100 mg EVERY 12 HOURS ORAL 11/19/18 21:00 12/19/18 08:59 11/22/18 08:06 Allergies: Coded Allergies: VANCOMYCIN (Verified Allergy, Unknown, red eyes, itchying, 10/10/16) Uncoded Allergies: Canned Food (Allergy, Unknown, 03/22/18) Nausea/Vomitting/Indigestion ROS Limited/Unobtainable: No Constitutional: Reports: no symptoms HEENT: Reports: no symptoms Cardiovascular: Reports: no symptoms Respiratory: Reports: shortness of breath, wheezing Gastrointestinal/Abdominal: Reports: no symptoms Genitourinary: Reports: no symptoms Neurologic/Psychiatric: Reports: no symptoms Subjective 83 YO F admitted with shortness of breath, now acute asthma exacerbation. Cover for Int Med-Dr Garcia Objective Last Vital Signs Date Time Temp Pulse Resp B/P (MAP) Pulse Ox O2 Delivery O2 Flow Rate FiO2 11/22/18 17:10 89 22 98 Room Air 21 11/22/18 16:00 97.4 158/85 (109) 11/22/18 15:48 2.0 Intake and Output 11/21/18 11/22/18 19:00 07:00 Intake Total 300 ml 377.5 ml Balance 300 ml 377.5 ml Intake Oral 300 ml 240 ml IV Total 137.5 ml # Voids 2 3 Objective Objective General: No acute distress, awake and alert HEENT: NCAT, sclera anicteric, PERRL, EOMI. Neck: Supple, no significant jugular venous distention, Lungs: Good inspiratory effort, decreased air in the bases, expiratory wheezes in anterior as well as posterior field of the lung, no Rales. Heart: Regular rate and rhythm, normal S1/S2, no murmur. Abdomen: soft, nontender, nondistended. Normoactive bowel sounds. / Rectal: Refused and deferred. Extremities: No Cyanosis , clubbing or edema. Neuro: A&O x 3, Able to move all extremities Skin: warm, no rash. Assessment/Plan Assessment/Plan Assessment/Plan Assessment/Plan Assessment/Plan Acute asthma exacerbation. History of Cerebrovascular disease. Hypertension. Hypercholesterolemia. Gastroesophageal reflux disease. History of seizure disorder. Coronary artery disease. TREATMENT: 1. Shortness of breath most likely due to acute asthma exacerbation. Pulmonary recommendation with Dr. Luis A Juares. intravenous Solu-Medrol and Zosyn IV. The patient is currently receiving DuoNeb. 2. Cerebrovascular disease. The patient is status post hemorrhagic stroke. 3. Hypertension. Continue amlodipine. 4. Hypercholesteremia. Continue Lipitor.. 5. Gastroesophageal reflux disease. Continue Protonix. 6. Seizure disorder. Continue Dilantin as above. 7. Coronary artery disease. on Mucinex 600 mg twice a day. Follow-up with the laboratory in AM. Prophylaxis with heparin subcu twice a day. CODE STATUS is full code. DC Planning for Monday Hank Toure MD Nov 22, 2018 18:26
--- NOTE | 2018-11-22 19:13 | NUR ---
HAND-OFF: Report given to AMMY Guzman. Pt stable.
[2018-11-22 20:00] VITALS: BP 133/84
[2018-11-23] VITALS: BP 146/80
[2018-11-23] MEDS: Albuterol/Ipratropium 3ml neb HHN SCH ×3 (01:00→13:43)
[2018-11-23 04:00] VITALS: BP 148/93
[2018-11-23] MEDS: Solu-MEDROL 125mg Inj IV SCH ×3 (05:34→12:23)
--- NOTE | 2018-11-23 06:30 | NUR ---
NURSE NOTES: Pt refused am lab today.
--- NOTE | 2018-11-23 07:15 | NUR ---
NURSE NOTES: Report received from AMMY Guzman. Pt sitting in chair, able to ambulate to the bathroom with a walker. eating breakfast independently, awake and talkative, A/O x4, no complaints of pain/discomfort noted. unhappy with breakfast, ordered another meal for her. call light within reach.
--- NOTE | 2018-11-23 07:45 | NUR ---
HAND-OFF: Report given to MONIQUE Rodriguez. Pt in stable condition.
[2018-11-23 08:00] VITALS: BP 163/81
[2018-11-23] MEDS: Theophylline ER 100mg ORAL SCH (08:51)
[2018-11-23] MEDS: Phenytoin 100mg cap ORAL SCH (08:53)
[2018-11-23] MEDS: Atorvastatin 20mg tab ORAL SCH (08:53)
[2018-11-23] MEDS: guaiFENesin ER 600mg tab ORAL SCH (08:53)
[2018-11-23] MEDS: Lyrica 50mg cap ORAL SCH (08:55)
[2018-11-23 09:00] VITALS: BP 156/83
[2018-11-23] MEDS: Heparin 5000 units/ml inj SUBQ SCH (09:01)
[2018-11-23] MEDS: Lidocaine 1% MPF 10mg/ml 5ml HHN SCH ×2 (10:55→13:49)
[2018-11-23] MEDS ORDERED: MEDROL DOSEPAK4 MG ORAL (13:02)
[2018-11-23] MEDS ORDERED: Levofloxacin 250mg ORAL (13:03)
--- NOTE | 2018-11-23 13:04 | Pulmonology Progress Note ---
Assessment/Plan Problems: (1) Acute respiratory failure (2) Acute asthma exacerbation (3) Allergic asthma (4) CAD (coronary artery disease) (5) HTN (hypertension) (6) Cerebral vascular disease Assessment/Plan CT chest reviewed, Central bronchial wall thickening slightly better same dose steroids, very responsive to steroids on Lidocain inhalers to control cough respiratory treatment check sputum, still pending dvt prophylaxis med/surg Subjective ROS Limited/Unobtainable: No Constitutional: Reports: no symptoms HEENT: Repors: no symptoms Respiratory: Reports: no symptoms Allergies: Coded Allergies: VANCOMYCIN (Verified Allergy, Unknown, red eyes, itchying, 10/10/16) Uncoded Allergies: Canned Food (Allergy, Unknown, 03/22/18) Nausea/Vomitting/Indigestion Objective Last 24 Hour Vital Signs Date Time Temp Pulse Resp B/P (MAP) Pulse Ox O2 Delivery O2 Flow Rate FiO2 11/23/18 12:14 80 20 98 Room Air 21 11/23/18 12:14 80 20 98 Room Air 21 11/23/18 10:57 86 16 98 Nasal Cannula 2.0 28 11/23/18 10:55 Nasal Cannula 2.0 28 11/23/18 10:55 96 Nasal Cannula 2.0 28 11/23/18 09:05 Room Air 11/23/18 09:00 156/83 (107) 11/23/18 08:54 88 163/81 11/23/18 08:00 97.1 88 18 163/81 (108) 92 11/23/18 04:00 97.3 86 20 148/93 (111) 97 11/23/18 00:00 97.8 87 20 146/80 (102) 96 11/22/18 21:00 Room Air 11/22/18 20:40 75 20 97 Room Air 21 11/22/18 20:25 Nasal Cannula 2.0 28 11/22/18 20:24 96 Room Air 21 11/22/18 20:23 55 20 96 Room Air 21 11/22/18 20:00 97.8 90 20 133/84 (100) 95 11/22/18 17:10 89 22 98 Room Air 21 11/22/18 17:10 87 22 98 Room Air 21 11/22/18 16:00 97.4 91 16 158/85 (109) 93 3/21/19 15:48 89 22 98 Nasal Cannula 2.0 28 11/22/18 15:48 86 22 98 Nasal Cannula 28.0 28 Intake and Output 11/22/18 11/23/18 19:00 07:00 Intake Total 1092.5 ml 240 ml Balance 1092.5 ml 240 ml Intake Oral 900 ml 240 ml IV Total 192.5 ml # Voids 4 Objective General Appearance: WD/WN HEENT: normocephalic, anicteric Respiratory/Chest: chest wall non-tender, less rhonchi, small wheezing Breasts: no masses Cardiovascular: normal rate Abdomen: soft, non tender, non distended Extremities: no clubbing Skin: no rash Neurologic/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 II-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 grossly normal Lymphatic: no neck adenopathy Current Medications Medications (Trade) Dose Ordered Sig/Mecca Route PRN Reason Start Time Stop Time Status Last Admin Dose Admin Albuterol/ Ipratropium (Albuterol/ Ipratropium) 3 ml Q4H PRN HHN dyspnea 11/19/18 18:30 11/23/18 18:29 11/22/18 15:46 Albuterol/ Ipratropium (Albuterol/ Ipratropium) 3 ml Q6HRT HHN 11/19/18 19:00 11/24/18 18:59 11/23/18 10:55 Amlodipine Besylate (Norvasc) 5 mg DAILY ORAL 11/20/18 09:00 12/19/18 08:59 11/23/18 08:54 Atorvastatin Calcium (Lipitor) 40 mg DAILY ORAL 11/20/18 09:00 12/19/18 08:59 11/23/18 08:53 Cetirizine HCl (ZyrTEC) 5 mg DAILY ORAL 11/22/18 09:00 12/22/18 08:59 11/23/18 08:52 Clopidogrel Bisulfate (Plavix) 75 mg DAILY ORAL 11/20/18 09:00 12/19/18 08:59 11/23/18 08:53 Dextrose (Dextrose 50%) 25 ml Q30M PRN IV Hypoglycemia 11/19/18 18:45 12/18/18 21:14 Dextrose (Dextrose 50%) 50 ml Q30M PRN IV Hypoglycemia 11/19/18 18:45 12/18/18 21:14 Guaifenesin (Mucinex ER) 600 mg TWICE A DAY ORAL 11/20/18 19:45 12/20/18 19:44 11/23/18 08:53 Heparin Sodium (Porcine) (Heparin 5000 units/ml) 5,000 units EVERY 12 HOURS SUBQ 11/19/18 21:00 12/19/18 08:59 11/23/18 09:01 Levofloxacin (Levaquin) 250 mg DAILY ORAL 11/23/18 09:00 11/30/18 08:59 11/23/18 08:53 Lidocaine (Xylocaine 1% MPF 5ml) 10 ml Q8HRT HHN 11/20/18 15:00 12/20/18 14:59 11/23/18 10:55 Lorazepam (Ativan 2mg/ml 1ml) 0.5 mg Q4H PRN IV For Anxiety 11/19/18 19:00 11/25/18 18:59 Methylprednisolone Sodium Succinate (Solu-MEDROL) 60 mg EVERY 6 HOURS IV 11/20/18 00:00 12/19/18 00:00 11/23/18 12:23 Montelukast Sodium (Singulair) 10 mg QPM ORAL 11/20/18 16:30 12/19/18 16:29 11/22/18 17:03 Morphine Sulfate (Morphine Sulfate) 2 mg Q4H PRN IVP Severe Pain (Pain Scale 7-10) 11/19/18 18:30 11/25/18 18:29 11/20/18 02:41 Nitroglycerin (Ntg) 0.4 mg Q5M X 3 DOSES PRN SL Prn Chest Pain 11/19/18 18:30 12/18/18 21:14 Ondansetron HCl (Zofran) 4 mg Q6H PRN IVP Nausea & Vomiting 11/19/18 18:30 12/18/18 18:29 Phenytoin (Dilantin) 100 mg BID ORAL 11/20/18 09:00 12/19/18 08:59 11/23/18 08:53 Pregabalin (Lyrica) 50 mg DAILY ORAL 11/20/18 09:00 12/19/18 08:59 11/23/18 08:55 Promethazine HCl/ Codeine (Phenergan with Codeine) 5 ml Q4H PRN ORAL For Cough 11/19/18 18:30 12/19/18 18:29 11/21/18 11:07 Temazepam (Restoril) 15 mg HSPRN PRN ORAL Insomnia 11/19/18 21:15 11/25/18 21:14 11/19/18 21:11 Theophylline (Fabrice-Dur) 100 mg EVERY 12 HOURS ORAL 11/19/18 21:00 12/19/18 08:59 11/23/18 08:51 Luis A Juares MD Nov 23, 2018 13:04
--- NOTE | 2018-11-23 14:52 | Internal Med Progress Note ---
Subjective Physician Name Shlomo Garcia Attending Physician Shlomo Garcia MD Current Medications Medications (Trade) Dose Ordered Sig/Mecca Route PRN Reason Start Time Stop Time Status Last Admin Dose Admin Albuterol/ Ipratropium (Albuterol/ Ipratropium) 3 ml Q4H PRN HHN dyspnea 11/19/18 18:30 11/23/18 18:29 11/22/18 15:46 Albuterol/ Ipratropium (Albuterol/ Ipratropium) 3 ml Q6HRT HHN 11/19/18 19:00 11/24/18 18:59 11/23/18 13:43 Amlodipine Besylate (Norvasc) 5 mg DAILY ORAL 11/20/18 09:00 12/19/18 08:59 11/23/18 08:54 Atorvastatin Calcium (Lipitor) 40 mg DAILY ORAL 11/20/18 09:00 12/19/18 08:59 11/23/18 08:53 Cetirizine HCl (ZyrTEC) 5 mg DAILY ORAL 11/22/18 09:00 12/22/18 08:59 11/23/18 08:52 Clopidogrel Bisulfate (Plavix) 75 mg DAILY ORAL 11/20/18 09:00 12/19/18 08:59 11/23/18 08:53 Dextrose (Dextrose 50%) 25 ml Q30M PRN IV Hypoglycemia 11/19/18 18:45 12/18/18 21:14 Dextrose (Dextrose 50%) 50 ml Q30M PRN IV Hypoglycemia 11/19/18 18:45 12/18/18 21:14 Guaifenesin (Mucinex ER) 600 mg TWICE A DAY ORAL 11/20/18 19:45 12/20/18 19:44 11/23/18 08:53 Heparin Sodium (Porcine) (Heparin 5000 units/ml) 5,000 units EVERY 12 HOURS SUBQ 11/19/18 21:00 12/19/18 08:59 11/23/18 09:01 Levofloxacin (Levaquin) 250 mg DAILY ORAL 11/23/18 09:00 11/30/18 08:59 11/23/18 08:53 Lidocaine (Xylocaine 1% MPF 5ml) 10 ml Q8HRT HHN 11/20/18 15:00 12/20/18 14:59 11/23/18 10:55 Lorazepam (Ativan 2mg/ml 1ml) 0.5 mg Q4H PRN IV For Anxiety 11/19/18 19:00 11/25/18 18:59 Methylprednisolone Sodium Succinate (Solu-MEDROL) 60 mg EVERY 6 HOURS IV 11/20/18 00:00 12/19/18 00:00 11/23/18 12:23 Montelukast Sodium (Singulair) 10 mg QPM ORAL 11/20/18 16:30 12/19/18 16:29 11/22/18 17:03 Morphine Sulfate (Morphine Sulfate) 2 mg Q4H PRN IVP Severe Pain (Pain Scale 7-10) 11/19/18 18:30 11/25/18 18:29 11/20/18 02:41 Nitroglycerin (Ntg) 0.4 mg Q5M X 3 DOSES PRN SL Prn Chest Pain 11/19/18 18:30 12/18/18 21:14 Ondansetron HCl (Zofran) 4 mg Q6H PRN IVP Nausea & Vomiting 11/19/18 18:30 12/18/18 18:29 Phenytoin (Dilantin) 100 mg BID ORAL 11/20/18 09:00 12/19/18 08:59 11/23/18 08:53 Pregabalin (Lyrica) 50 mg DAILY ORAL 11/20/18 09:00 12/19/18 08:59 11/23/18 08:55 Promethazine HCl/ Codeine (Phenergan with Codeine) 5 ml Q4H PRN ORAL For Cough 11/19/18 18:30 12/19/18 18:29 11/21/18 11:07 Temazepam (Restoril) 15 mg HSPRN PRN ORAL Insomnia 11/19/18 21:15 11/25/18 21:14 11/19/18 21:11 Theophylline (Fabrice-Dur) 100 mg EVERY 12 HOURS ORAL 11/19/18 21:00 12/19/18 08:59 11/23/18 08:51 Allergies: Coded Allergies: VANCOMYCIN (Verified Allergy, Unknown, red eyes, itchying, 10/10/16) Uncoded Allergies: Canned Food (Allergy, Unknown, 03/22/18) Nausea/Vomitting/Indigestion Subjective Awake, alert, responsive, complained about less shortness of breath and cough, sitting up in a chair, no acute distress. Objective Last Vital Signs Date Time Temp Pulse Resp B/P (MAP) Pulse Ox O2 Delivery O2 Flow Rate FiO2 11/23/18 13:48 86 22 98 Nasal Cannula 28.0 28 11/23/18 09:00 156/83 (107) 11/23/18 08:00 97.1 Intake and Output 11/22/18 11/23/18 18:59 06:59 Intake Total 1092.5 ml 240 ml Balance 1092.5 ml 240 ml Intake Oral 900 ml 240 ml IV Total 192.5 ml # Voids 4 Objective General: No acute distress, awake and alert HEENT: NCAT, sclera anicteric, PERRL, EOMI. Neck: Supple, no significant jugular venous distention, Lungs: Good inspiratory effort, decreased air in the bases, less expiratory wheezes, no Rales. Heart: Regular rate and rhythm, normal S1/S2, no murmur. Abdomen: soft, nontender, nondistended. Normoactive bowel sounds. Extremities: No Cyanosis , clubbing or edema. Neuro: A&O x 3, Able to move all extremities Skin: warm, no rash. Assessment/Plan Assessment/Plan Acute asthma exacerbation. History of Cerebrovascular disease. Hypertension. Hypercholesterolemia. Gastroesophageal reflux disease. History of seizure disorder. Coronary artery disease. TREATMENT: 1. Shortness of breath most likely due to acute asthma exacerbation. Pulmonary recommendation with Dr. Luis A Juares. intravenous Solu-Medrol and Zosyn IV. The patient is currently receiving DuoNeb. 2. Cerebrovascular disease. The patient is status post hemorrhagic stroke. 3. Hypertension. Continue amlodipine. 4. Hypercholesteremia. Continue Lipitor.. 5. Gastroesophageal reflux disease. Continue Protonix. 6. Seizure disorder. Continue Dilantin as above. 7. Coronary artery disease. on Mucinex 600 mg twice a day. Follow-up with the laboratory in AM. Prophylaxis with heparin subcu twice a day. CODE STATUS is full code. DC home today. Shlomo Garcia MD Nov 23, 2018 14:52
--- NOTE | 2018-11-23 14:58 | NUR ---
NURSE NOTES: d/c home with instructions. picked up by caregiver, Whit Kahn. removed IV heplock. In stable condition. personal belongings noted. will cont to monitor.
--- NOTE | 2018-11-24 00:11 | Cardiology Report ---
APPROVED REPORT EKG Measurement Heart [id number] Normal sinus rhythm Septal infarct, age undetermined Abnormal ECG
--- NOTE | 2018-11-25 13:52 | Discharge Summary ---
Discharge Summary Discharge Summary _ DATE OF ADMISSION: 11/18/2018 DATE OF DISCHARGE: 11/23/2018 DISCHARGED BY: Dr. Garcia REASON FOR ADMISSION: 83 years old female with past medical history significant for asthma, hypertension, hypercholesterolemia, history of hemorrhagic cerebrovascular accident, GERD, seizure disorder, coronary artery disease, status post stent placement in November 2017, presented with complaint of severe shortness of breath and chest pain. Patient had recurrent admission for asthma /COPD exacerbation. Patient reported chest congestion, heaviness and tightness for 1 week. She denied fever and chills. She complained of dry cough. Laboratory workup revealed no leukocytosis, stable hemoglobin and hematocrit. Elevated eosinophil level noted. Potassium 2.9. Glucose 150. Troponin negative. EKG revealed normal sinus rhythm, no acute ischemic changes. Lactic acid within normal limits. Urinalysis revealed no evidence of UTI. Chest x-ray revealed questionable, if real, left lung nodules, not demonstrated previously. Biapical chronic pleural and parenchymal scaring demonstrated. After initial evaluation in emergency department, patient was admitted for acute asthma/COPD exacerbation. CONSULTANTS: pulmonary Dr. Juares ID specialist Dr. Keene [facility] COURSE: Patient admitted initially to telemetry floor. Supplemental oxygen provided to keep pulse oximetry above 90%. Pulmonary toilet provided with nebulizing therapy around the clock and as needed. Patient also received lidocaine inhalers for control of cough. CT of the chest revealed mild central bronchial wall thickening. Areas of parenchymal scaring with calcification noted. Bronchiectasis or chronic fibrotic changes were not demonstrated. No acute pulmonary process demonstrated. Patient was started on intravenous steroids with gradual tapering down. Patient was started on empiric antibiotics. Rapid influenza screen test was negative. Sputum culture revealed Suha. CXR revealed no acute cardiopulmonary pathology. Trial of theophylline started. DVT prophylaxis provided. Antitussive provided as needed. Zyrtec and Singulair continued. Patient also started on Mucinex. Patient was on PPI with Protonix Statin along with antiplatelet therapy continued. Blood pressure was managed with calcium channel steph and remained stable. Seizure precaution maintained. No evidence of seizure activity while in the hospital. Dilantin was continued. Hypokalemia was initially corrected. Renal parameters and electrolytes were closely monitored and remained stable. Patient slowly improved. Patient was stable for discharge home on Medrol Dosepak and oral antibiotic to complete the course as per ID specialist recommendation. FINAL DIAGNOSES: Acute respiratory failure Acute exacerbation of asthma /COPD Allergic asthma History of cerebrovascular disease Hypertension Hypercholesterolemia GERD Seizure disorder Coronary artery disease ,status post stent Hypokalemia -resolved DISCHARGE MEDICATIONS: See Medication Reconciliation list. DISCHARGE INSTRUCTIONS: Patient was discharged home. Follow up with primary care provider in one week. I have been assigned to dictate discharge summary for this account. I was not involved in the patient's management. Jessica Landry NP Nov 25, 2018 13:52
== END 2018-11-23 14:55 | disposition home or self-care (01) | DRG 190 ==
LOC: EDBD 20:06 → EMR 20:19 → EDBEDREQ 21:14 → 2E 21:34 → 3E 11-19 18:10
DX: J44.1 Chronic obstructive pulmonary disease with (acute) exacerbation (principal); J96.00 Acute respiratory failure, unspecified whether with hypoxia or hypercapnia; E87.6 Hypokalemia; Z86.73 Personal history of transient ischemic attack (TIA), and cerebral infarction without residual deficits; I10 Essential (primary) hypertension; E78.00 Pure hypercholesterolemia, unspecified; K21.9 Gastro-esophageal reflux disease without esophagitis; G40.909 Epilepsy, unspecified, not intractable, without status epilepticus; I25.10 Atherosclerotic heart disease of native coronary artery without angina pectoris; Z95.5 Presence of coronary angioplasty implant and graft; Z88.1 Allergy status to other antibiotic agents
CPT/HCPCS: 36415; 71045; 71250; 80053; 80185; 81003; 82550; 83605; 83880; 84484; 85025; 85610; 85730; 86710; 87070; 87205; 93005; 94640; 94664; 94760; 96361; 96374; 99285; J7620; J8499

== ENCOUNTER 2018-12-04 14:50 | Inpatient (IN) | payer MEDICARE, MEDICAID ==
[~2018-12-04] VITALS: Ht 157.5 cm; Wt 66.7 kg
[~2018-12-04 14:50] MED LIST changes: +BACLOFEN10 MG ORAL; +BEVESPI; +ISOSORBIDE DINI30 MG ORAL; +Levofloxacin 250mg ORAL; +MEDROL DOSEPAK4 MG ORAL; +XYLOCAINE MPF INJ
--- NOTE | 2018-12-04 15:01 | NUR ---
ED Nurse Note: PT WALKED IN TO ER TODAY FROM HOME. AOX4. PT C/O LEFT SIDED HEAD AND NECK PAIN, 06/13 AFTER A FALL X 3 DAYS AGO. PT STATES SHE DID HAVE HEAD TRAUMA BUT DENIES LOC. PT ALSO C/O LEFT SIDED ELBOW AND KNEE PAIN. SKIN CLEAN, DRY, AND INTACT BUT BRUISING NOTED TO LEFT ELBOW AND KNEE. FULL ROM OF EXTREMITIES, 5/5 MUSCLE STRENGTH, CIRCULATION AND SENSATION INTACT, CAP REFILL <3 SECONDS.
[2018-12-04 15:03] VITALS: BP 140/66
[2018-12-04] MEDS ORDERED: Acetaminophen 500mg (ES) tab ORAL ONE (15:15)
[2018-12-04] MEDS ORDERED: Albuterol/Ipratropium 3ml neb HHN ONE (15:15)
--- NOTE | 2018-12-04 15:18 | NUR ---
ED Nurse Note: RT CALLED FOR BREATHING TX.
--- NOTE | 2018-12-04 15:18 | Emergency Room Report ---
History of Present Illness General Chief Complaint: General Complaint Source: Patient Present Illness HPI Patient is an 83-year-old female brought in by family member after increased difficulty with breathing. Patient had recent fall approximately 3 days ago. Patient had prior history of stent placement and takes Plavix. She reports having pain to her head as well as to her neck. Patient additionally had some pain to her left knee. Patient reported tripping after walking downstairs. She denies any loss of consciousness. Patient prior history of asthma and reports having some increased difficulty with breathing.She was noted to be taking Dilantin for seizures. Allergies: Coded Allergies: VANCOMYCIN (Verified Allergy, Unknown, red eyes, itchying, 10/10/16) Uncoded Allergies: Canned Food (Allergy, Unknown, 03/22/18) Nausea/Vomitting/Indigestion Patient History Past Medical History: see triage record Now: No Reviewed Nursing Documentation: PMH: Agreed; PSxH: Agreed Nursing Documentation-PMH Past Medical History: No History, Except For Hx Cardiac Problems: Yes Hx Hypertension: Yes Hx Asthma: Yes Hx COPD: Yes Hx Cancer: No Hx Gastrointestinal Problems: Yes Hx Neurological Problems: Yes Hx Cerebrovascular Accident: Yes - Hemorrhagic stroke Hx Transient Ischemic Attacks: Yes Hx Seizures: Yes Hx Epilepsy: Yes Review of Systems All Other Systems: negative except mentioned in HPI Physical Exam Vital Signs Date Time Temp Pulse Resp B/P (MAP) Pulse Ox O2 Delivery O2 Flow Rate FiO2 12/04/18 14:55 98.4 87 20 139/80 95 12/04/18 15:03 Room Air Sp02 EP Interpretation: reviewed, normal General Appearance: normal inspection, well appearing, no apparent distress, alert, Chronically Ill Head: atraumatic ENT: normal ENT inspection, hearing grossly normal, normal voice Neck: normal inspection, supple, no bony tend, limited range of motion Respiratory: normal inspection, normal breath sounds, no respiratory distress, no retraction, wheezing Cardiovascular #1: regular rate, rhythm, no edema Gastrointestinal: normal inspection, normal bowel sounds, non tender, soft, no guarding, no hernia Genitourinary: no CVA tenderness Musculoskeletal: normal inspection, back normal, normal range of motion Neurologic: normal inspection, alert, oriented x3, responsive, 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 Differential diagnosis included was not limited to neck fracture, CVA, close head injury, syncopal episode, basilar ischemia. Because of complexity of patient's case laboratory testing and imaging studies were ordered.Laboratory studies were unremarkable. Patient was noted to have some cardiomegaly and vascular congestion on chest x-ray without evident fracture. Patient was noted to have some difficulty breathing was started on breathing treatment as well as given Lasix. EKG interpreted by me showed normal sinus rhythm with a rate of [address] or T wave changes. Patient's was given Tylenol for pain. She was noted to have some improvement difficulty breathing after Lasix. CT of the head read by radiology showed no evidence of acute intracranial hemorrhage CT of cervical spine showed multiple level degenerative changes without evident fracture. Left knee x-ray 3 views interpreted by radiology showed normal bony alignment without evident fracture and degenerative changes.Dr. Shlomo Garcia was contacted for inpatient management due to prior admission Labs Test 12/04/18 15:13 White Blood Count 8.9 K/UL (4.8-10.8) Red Blood Count 4.23 M/UL (4.20-5.40) Hemoglobin 12.6 G/DL (12.0-16.0) Hematocrit 37.4 % (37.0-47.0) Mean Corpuscular Volume 89 FL (80-99) Mean Corpuscular Hemoglobin 29.9 PG (27.0-31.0) Mean Corpuscular Hemoglobin Concent 33.7 G/DL (32.0-36.0) Red Cell Distribution Width 12.7 % (11.6-14.8) Platelet Count 217 K/UL (150-450) Mean Platelet Volume 5.7 FL (6.5-10.1) Neutrophils (%) (Auto) 68.7 % (45.0-75.0) Lymphocytes (%) (Auto) 20.1 % (20.0-45.0) Monocytes (%) (Auto) 7.3 % (1.0-10.0) Eosinophils (%) (Auto) 3.4 % (0.0-3.0) Basophils (%) (Auto) 0.5 % (0.0-2.0) Prothrombin Time 9.7 SEC (9.30-11.50) Prothromb Time International Ratio 0.9 (0.9-1.1) Activated Partial Thromboplast Time 25 SEC (23-33) Sodium Level 141 MMOL/L (136-145) Potassium Level 3.5 MMOL/L (3.5-5.1) Chloride Level 102 MMOL/L (98-107) Carbon Dioxide Level 30 MMOL/L (21-32) Anion Gap 9 mmol/L (5-15) Blood Urea Nitrogen 19 mg/dL (7-18) Creatinine 0.6 MG/DL (0.55-1.30) Estimat Glomerular Filtration Rate mL/min (>60) Glucose Level 116 MG/DL (74-106) Calcium Level 9.1 MG/DL (8.5-10.1) Total Bilirubin 0.2 MG/DL (0.2-1.0) Aspartate Amino Transf (AST/SGOT) 12 U/L (15-37) Alanine Aminotransferase (ALT/SGPT) 27 U/L (12-78) Alkaline Phosphatase 89 U/L (46-116) Troponin I 0.010 ng/mL (0.000-0.056) Total Protein 7.0 G/DL (6.4-8.2) Albumin 3.3 G/DL (3.4-5.0) Globulin 3.7 g/dL Albumin/Globulin Ratio 0.9 (1.0-2.7) Phenytoin (Dilantin) Level 10.7 ug/mL (10-20) EKG Diagnostic Results Rate: normal - 85 Rhythm: NSR ST Segments: no acute changes Last Vital Signs Date Time Temp Pulse Resp B/P (MAP) Pulse Ox O2 Delivery O2 Flow Rate FiO2 12/04/18 15:03 98.2 88 12 140/66 96 Room Air Status: improved Disposition: ADMITTED INPATIENT Condition: Stable Referrals: NON PHYSICIAN (PCP) Miko Pyle MD Dec 04, 2018 15:18
--- NOTE | 2018-12-04 15:25 | NUR ---
ED Nurse Note: RT AT BEDSIDE
[2018-12-04 15:39] LABS: ANION GAP 9 mmol/L (5-15); BASOPHILS % (AUTO) 0.5 % (0.0-2.0); BLOOD UREA NITROGEN 19 mg/dL (7-18); CALCIUM 9.1 MG/DL (8.5-10.1); CARBON DIOXIDE 30 MMOL/L (21-32); CHLORIDE 102 MMOL/L (98-107); CREATININE 0.6 MG/DL (0.55-1.30); EOSINOPHILS % (AUTO) 3.4 % (0.0-3.0); HEMATOCRIT 37.4 % (37.0-47.0); HEMOGLOBIN 12.6 G/DL (12.0-16.0); LYMPHOCYTES % (AUTO) 20.1 % (20.0-45.0); MEAN CORPUSCULAR VOLUME 89 FL (80-99); MONOCYTES % (AUTO) 7.3 % (1.0-10.0); NEUTROPHILS % (AUTO) 68.7 % (45.0-75.0); PLATELET COUNT 217 K/UL (150-450); POTASSIUM 3.5 MMOL/L (3.5-5.1); RED BLOOD COUNT 4.23 M/UL (4.20-5.40); RED CELL DISTRIBUTION WIDTH 12.7 % (11.6-14.8); SODIUM 141 MMOL/L (136-145); WHITE BLOOD COUNT 8.9 K/UL (4.8-10.8)
--- NOTE | 2018-12-04 15:41 | NUR ---
ED Nurse Note: PT TO CT AND XRAY VIA PAYAMRDEVORA.
[2018-12-04 15:44] LABS: ALANINE AMINOTRANSFERASE 27 U/L (12-78); ALBUMIN 3.3 G/DL (3.4-5.0); ALBUMIN/GLOBULIN RATIO 0.9 (1.0-2.7); ALKALINE PHOSPHATASE 89 U/L (46-116); ASPARTATE AMINO TRANSFERASE 12 U/L (15-37); BILIRUBIN,TOTAL 0.2 MG/DL (0.2-1.0); INR 0.9 (0.9-1.1)
--- NOTE | 2018-12-04 16:10 | NUR ---
ED Nurse Note: PT BACK FROM CT AND XRAY VIA AURY.
--- NOTE | 2018-12-04 16:37 | Diagnostic Imaging Report ---
Indications: Trauma, status post fall Technique: Spiral acquisitions obtained through the brain. Angled axial and coronal 5 x 5 mm slices were reconstructed. Total dose length product 1743.58 mGycm. CTDI vol(s) 70.38,15.88 mGy. Dose reduction achieved using automated exposure control Comparison: None. Findings: There is mild age-related enlargement of the ventricles and extra axial CSF spaces. There is minimal periventricular deep white matter low-attenuation consistent with chronic ischemic change. Old lacunar infarcts are seen in the bilateral basal ganglia. No acute intracranial hemorrhage or edema, mass effect, nor midline shift. Otherwise normal gutierrez-white differentiation. Unusual soft tissue calcifications are seen anterior to the upper nose. There is evidence of prior bilateral cataract surgery. There is minimal sinus mucosal disease noted. Intact calvarium Impression: Chronic and age-related changes, as described Old lacunar infarcts in the bilateral basal ganglia Negative for acute intracranial bleed or mass effect Unusual densities in the anterior upper nasal soft tissues. Could reflect posttraumatic foreign bodies but could be related to prior cosmetic procedures. Correlate with clinical history and findings Minimal sinus disease The CT scanner at [facility] is accredited by the [employer] and the scans are performed using protocols designed to limit radiation exposure to as low as reasonably achievable to attain images of sufficient resolution adequate for diagnostic evaluation.
--- NOTE | 2018-12-04 16:43 | Diagnostic Imaging Report ---
Indication: Trauma, Status post fall Technique: Spiral acquisitions obtained through the cervical spine. No IV contrast utilized. Multiplanar reconstructions were generated. Total dose length product 1743.58 mGycm. CTDIvol(s) 70.38,15.88 mGy. Dose reduction achieved using automated exposure control. Comparison: none Findings: There is some image degradation due to motion artifact. This could obscure pathology. There is slight posterior offset of C4 on C5. Otherwise normal bony alignment. The vertebral body heights are preserved. No acute fractures. No dislocations. At C3-4, there is mild to moderate degenerative disc narrowing. Posterior osteophytes result in borderline narrowing of the spinal canal. There is severe bilateral neural foraminal stenosis. At C4-5, there is moderate degenerative disc narrowing. Posterior osteophytes result in moderate narrowing of the spinal canal. There is severe narrowing of the bilateral neural foramina. At C5-6, the disc space is preserved. There is severe right and mild left neural foraminal stenosis. There is bilateral facet arthrosis at this level. At C6-7, the disc space is preserved. There is broad-based posterior disc protrusion results results in borderline narrowing of the spinal canal. The neural foramina are preserved. At C7-T1, there is a posterior osteophyte on the right which could impinge upon the right lateral recess. No significant disc bulge or protrusion, spinal stenosis, or neural foraminal narrowing. The included extraspinal soft tissues demonstrate a subcentimeter nodule in the right thyroid lobe Impression: Limited exam due to motion artifact. No gross acute bony trauma Fairly extensive degenerative changes as detailed on a level by level basis above Subcentimeter right lobe thyroid nodule. No further follow-up necessary. The CT scanner at [facility] is accredited by the [employer] and the scans are performed using protocols designed to limit radiation exposure to as low as reasonably achievable to attain images of sufficient resolution adequate for diagnostic evaluation.
--- NOTE | 2018-12-04 16:49 | Diagnostic Imaging Report ---
Indication: Shortness of breath Technique: One view of the chest Comparison: 11/18/2018 Findings: Heart is enlarged. There is mild interstitial congestion. Reticular chronic interstitial opacities are seen at the lung apices bilaterally, left greater than right. Impression: Cardiomegaly with evidence of mild interstitial congestion.
--- NOTE | 2018-12-04 16:50 | Diagnostic Imaging Report ---
Indication: Pain, 3 days status post fall Technique: 3 views of the left knee Comparison: None Findings: No acute fractures. No dislocations. No suprapatellar effusion. There is a superior pole patellar osteophyte. The joint spaces are preserved. There are vascular calcifications. Impression: No acute bony trauma Mild degenerative changes as described
--- NOTE | 2018-12-04 17:58 | NUR ---
ED Nurse Note: TELE UNIT CALLED FOR PT TRANSFER. REPORT GIVEN TO AMMY CHUN. ROOM STILL NEEDS TO BE CLEANED. TELE UNIT TO CALL BACK ONCE ROOM IS READY.
[2018-12-04] MEDS ORDERED: Solu-MEDROL 125mg Inj IVP ONE (18:00)
--- NOTE | 2018-12-04 18:20 | NUR ---
ED Nurse Note: TELE UNIT CALLED FOR ROOM STATUS. ROOM STILL NOT READY. TELE UNIT WILL CALL BACK WHEN ROOM IS READY.
[2018-12-04] MEDS ORDERED: Morphine Sulfate 2mg/ml Inj(IV/IM USE ONLY) IVP PRN (18:45)
[2018-12-04] MEDS ORDERED: LORazepam Inj 2mg/ml 1ml IV PRN (18:45)
[2018-12-04] MEDS ORDERED: Nitroglycerin Subl 0.4mg tab SL PRN (18:45)
--- NOTE | 2018-12-04 19:16 | NUR ---
ED Nurse Note: PT TAKEN UP TO TELE UNIT VIA GURNEY ON [employer] COMPENSATION SPECIALIST WITH ALL BELONGINGS ACCOMPANIED BY PRIMARY RN AND AMMY SCHULZ. VSS.
--- NOTE | 2018-12-04 19:17 | NUR ---
NURSE NOTES: Received patient from AMMY August. Patient VS stable at this time. Patient ambulatory with no assist. Patient alert and oriented and english speaking but understands cymraes. Patient denies pain at this time. Monitor placed on patient. Patient sitting in the chair at this time. Belongings verified.
--- NOTE | 2018-12-04 19:20 | NUR ---
HAND-OFF: Report given to AMMY Saini. Patient VS stable at this time with no sign of acute distress.
--- NOTE | 2018-12-04 19:23 | NUR ---
NURSE NOTES: Received report from AMMY Mckee. Patient sitting in bed awake showing no signs of acute distress. Respiration even and non labored on 2L nc. No SOB noted. IV line patent and intact. Bed in lowest position. Call light within reach. All needs attended and met. Will continue plan of care.
[2018-12-04 19:30] VITALS: BP 147/73
[2018-12-04] MEDS: Theophylline ER 100mg ORAL SCH (22:52)
[2018-12-04] MEDS: Piperacillin/Tazobactam 3.375 GM in D5W 110 ML IVPB SCH (22:52)
[2018-12-04] MEDS: Heparin 5000 units/ml inj SUBQ SCH (22:53)
[2018-12-05] VITALS: BP 136/66
[2018-12-05] MEDS: Solu-MEDROL 125mg Inj IV SCH ×4 (00:36→17:31)
[2018-12-05] MEDS: Piperacillin/Tazobactam 3.375 GM in D5W 110 ML IVPB SCH ×3 (06:10→21:34)
--- NOTE | 2018-12-05 07:05 | NUR ---
HAND-OFF: Report given to AMMY Grider.
--- NOTE | 2018-12-05 07:39 | NUR ---
NURSE NOTES: Received report from AMMY Rodriguez. Patient in bed resting, no active s/s cardiac, respiratory distress noticed at this time, denies pain at this time. Patient on room air, SR with HR 84, AOx4. Endorsed sputum culture collected. IV on left AC 20G asymptomatic, patent, intact. Bed in lowest position, side rails upx2, call light within reach. Will continue to monitor.
[2018-12-05 08:00] VITALS: BP 156/87
[2018-12-05] MEDS: Promethazine/Codeine 5ml UD ORAL PRN ×2 (08:39→21:09)
[2018-12-05] MEDS: Theophylline ER 100mg ORAL SCH ×2 (08:39→21:09)
[2018-12-05] MEDS: Montelukast 10mg tablet ORAL SCH (08:40)
[2018-12-05] MEDS: Lyrica 50mg cap ORAL SCH (08:41)
[2018-12-05] MEDS: Phenytoin 100mg cap ORAL SCH ×2 (08:41→17:31)
[2018-12-05] MEDS: Heparin 5000 units/ml inj SUBQ SCH ×2 (08:43→21:09)
--- NOTE | 2018-12-05 09:00 | NUR ---
NURSE NOTES: Asked patient regarding bruises on back. Per patient, patient got acupuncture and cupping on back left with bruises. No bleeding, no c/o pain. Will continue to monitor.
--- NOTE | 2018-12-05 11:26 | Consultation ---
History of Present Illness General Date patient seen: Dec 05, 2018 Chief Complaint: General Complaint Present Illness HPI 83-year-old female with history of HTN, asthma, CVA/TIA presents to ED for evaluation for shortness of breath. She had an episode of fall af few days ago which lead to severe back pain. she also had a Acupuncture procedure done on her back with sucking out some blood "cupping". Patient states she feels a little better but still feels very short of breath. States she's been using her inhaler at home without significant relief. Denies cough. Denies chest pain. she received one dose of Lasix and solumedrol in ER and admitted for further management. Allergies: Coded Allergies: VANCOMYCIN (Verified Allergy, Unknown, red eyes, itchying, 10/10/16) Uncoded Allergies: Canned Food (Allergy, Unknown, 03/22/18) Nausea/Vomitting/Indigestion Medication History Scheduled Albuterol Sulfate (Ventolin Hfa), 1 PUFF INH EVERY 6 HOURS Amlodipine Besylate* (Amlodipine Besylate*), 5 MG ORAL DAILY, (Reported) Atorvastatin (Lipitor), 40 MG ORAL DAILY, (Reported) Baclofen* (Baclofen*), 10 MG ORAL DAILY, (Reported) Clopidogrel* (Clopidogrel*), 75 MG ORAL DAILY, (Reported) Dexlansoprazole (Dexilant), 60 MG ORAL DAILY, (Reported) Isosorbide Dinitrate* (Isordil*), 30 MG ORAL DAILY, (Reported) Levocetirizine Dihydrochloride (Levocetirizine Dihydrochloride), 5 MG ORAL DAILY , (Reported) Levofloxacin (Levofloxacin*), 500 MG ORAL DAILY, (Reported) Lidocaine (Xylocaine-Mpf 1% Vial), 10 ML INJ Q8HR, (Reported) Losartan/Hydrochlorothiazide (Losartan-Hctz 100-12.5 Mg Tab), 1 TAB ORAL DAILY, (Reported) Methylprednisolone (Methylprednisolone*), 4 MG ORAL DIRECTED Montelukast Sodium* (Montelukast Sodium*), 10 MG ORAL DAILY, (Reported) Phenytoin Sodium Extended* (Phenytoin Sodium Extended*), 100 MG ORAL BID, ( Reported) Pregabalin (Lyrica), 50 MG ORAL DAILY, (Reported) [Levofloxacin 250mg], 250 MG ORAL DAILY Miscellaneous Medications [Bevespi], (Reported) Patient History Healthcare decision maker N Resuscitation status Full Code Advanced Directive on File Past Medical/Surgical History Past Medical/Surgical History: (1) Cerebral vascular disease (2) Hemorrhagic stroke (3) Seizure disorder (4) CAD (coronary artery disease) (5) GERD (gastroesophageal reflux disease) (6) HTN (hypertension) Review of Systems All Other Systems: negative except mentioned in HPI Physical Exam General Appearance: WD/WN Lines, tubes and drains: peripheral HEENT: normocephalic, atraumatic Neck: non-tender, normal alignment Respiratory/Chest: chest wall non-tender, lungs clear Breasts: no masses Cardiovascular/Chest: normal rate Abdomen: normal bowel sounds, non tender Extremities: normal range of motion Skin Exam: normal pigmentation Last 24 Hour Vital Signs Date Time Temp Pulse Resp B/P (MAP) Pulse Ox O2 Delivery O2 Flow Rate FiO2 12/05/18 09:00 Nasal Cannula 2.0 12/05/18 08:40 95 156/87 12/05/18 08:00 98.4 95 23 156/87 (110) 97 12/05/18 08:00 92 12/05/18 07:42 91 20 Nasal Cannula 2.0 28 12/05/18 04:00 84 12/05/18 00:00 98.2 91 18 136/66 (89) 98 12/05/18 00:00 86 12/04/18 21:00 Nasal Cannula 2.0 12/04/18 20:00 Nasal Cannula 2.0 12/04/18 20:00 84 18 Room Air 21 12/04/18 19:53 86 12/04/18 19:30 97.0 92 20 147/73 (97) 96 12/04/18 17:58 98.3 90 20 146/72 98 Room Air 12/04/18 15:38 80 16 100 Room Air 21 12/04/18 15:28 82 20 98 Room Air 21 12/04/18 15:03 98.2 88 12 140/66 96 Room Air 12/04/18 15:03 88 12 Room Air 12/04/18 14:55 98.4 87 20 139/80 95 Laboratory Tests Test 12/04/18 15:13 12/04/18 15:15 White Blood Count 8.9 K/UL (4.8-10.8) Red Blood Count 4.23 M/UL (4.20-5.40) Hemoglobin 12.6 G/DL (12.0-16.0) Hematocrit 37.4 % (37.0-47.0) Mean Corpuscular Volume 89 FL (80-99) Mean Corpuscular Hemoglobin 29.9 PG (27.0-31.0) Mean Corpuscular Hemoglobin Concent 33.7 G/DL (32.0-36.0) Red Cell Distribution Width 12.7 % (11.6-14.8) Platelet Count 217 K/UL (150-450) Mean Platelet Volume 5.7 FL (6.5-10.1) L Neutrophils (%) (Auto) 68.7 % (45.0-75.0) Lymphocytes (%) (Auto) 20.1 % (20.0-45.0) Monocytes (%) (Auto) 7.3 % (1.0-10.0) Eosinophils (%) (Auto) 3.4 % (0.0-3.0) H Basophils (%) (Auto) 0.5 % (0.0-2.0) Prothrombin Time 9.7 SEC (9.30-11.50) Prothromb Time International Ratio 0.9 (0.9-1.1) Activated Partial Thromboplast Time 25 SEC (23-33) Sodium Level 141 MMOL/L (136-145) Potassium Level 3.5 MMOL/L (3.5-5.1) Chloride Level 102 MMOL/L (98-107) Carbon Dioxide Level 30 MMOL/L (21-32) Anion Gap 9 mmol/L (5-15) Blood Urea Nitrogen 19 mg/dL (7-18) H Creatinine 0.6 MG/DL (0.55-1.30) Estimat Glomerular Filtration Rate mL/min (>60) Glucose Level 116 MG/DL (74-106) H Calcium Level 9.1 MG/DL (8.5-10.1) Total Bilirubin 0.2 MG/DL (0.2-1.0) Aspartate Amino Transf (AST/SGOT) 12 U/L (15-37) L Alanine Aminotransferase (ALT/SGPT) 27 U/L (12-78) Alkaline Phosphatase 89 U/L (46-116) Troponin I 0.010 ng/mL (0.000-0.056) Total Protein 7.0 G/DL (6.4-8.2) Albumin 3.3 G/DL (3.4-5.0) L Globulin 3.7 g/dL Albumin/Globulin Ratio 0.9 (1.0-2.7) L Phenytoin (Dilantin) Level 10.7 ug/mL (10-20) Pro-B-Type Natriuretic Peptide 70 pg/mL (0-125) Microbiology Date/Time Source Procedure Growth Status 12/04/18 17:41 Rectum Received Height (Feet): 5 Height (Inches): 2.00 Weight (Pounds): 147 Medications Current Medications Medications (Trade) Dose Ordered Sig/[place] Route PRN Reason Start Time Stop Time Status Last Admin Dose Admin Albuterol/ Ipratropium (Albuterol/ Ipratropium) 3 ml Q4H PRN HHN dyspnea 12/04/18 18:45 12/09/18 18:44 Amlodipine Besylate (Norvasc) 5 mg DAILY ORAL 12/05/18 09:00 01/04/19 08:59 12/05/18 08:40 Baclofen (Lioresal) 10 mg DAILY ORAL 12/05/18 09:00 01/04/19 08:59 12/05/18 08:39 Clopidogrel Bisulfate (Plavix) 75 mg DAILY ORAL 12/05/18 09:00 01/04/19 08:59 12/05/18 08:40 Dextrose (Dextrose 50%) 25 ml Q30M PRN IV Hypoglycemia 12/04/18 18:45 01/03/19 18:44 Dextrose (Dextrose 50%) 50 ml Q30M PRN IV Hypoglycemia 12/04/18 18:45 01/03/19 18:44 Heparin Sodium (Porcine) (Heparin 5000 units/ml) 5,000 units EVERY 12 HOURS SUBQ 12/04/18 21:00 01/03/19 20:59 12/05/18 08:43 Lorazepam (Ativan 2mg/ml 1ml) 0.5 mg Q4H PRN IV For Anxiety 12/04/18 18:45 12/11/18 18:44 Methylprednisolone Sodium Succinate (Solu-MEDROL) 60 mg EVERY 6 HOURS IV 12/05/18 00:00 01/04/19 00:00 12/05/18 06:10 Montelukast Sodium (Singulair) 10 mg DAILY ORAL 12/05/18 09:00 01/04/19 08:59 12/05/18 08:40 Morphine Sulfate (Morphine Sulfate) 2 mg Q4H PRN IVP severe pain 7-10 12/04/18 18:45 12/11/18 18:44 Nitroglycerin (Ntg) 0.4 mg Q5M X 3 DOSES PRN SL Prn Chest Pain 12/04/18 18:45 01/03/19 18:44 Ondansetron HCl (Zofran) 4 mg Q6H PRN IVP Nausea & Vomiting 12/04/18 18:45 01/03/19 18:44 Phenytoin (Dilantin) 100 mg BID ORAL 12/05/18 09:00 01/04/19 08:59 12/05/18 08:41 Piperacillin Sod/ Tazobactam Sod 3.375 gm/Dextrose 110 ml @ 27.5 mls/hr EVERY 8 HOURS IVPB 12/04/18 22:00 12/11/18 21:59 12/05/18 06:10 Pregabalin (Lyrica) 50 mg DAILY ORAL 12/05/18 09:00 01/04/19 08:59 12/05/18 08:41 Promethazine HCl/ Codeine (Phenergan with Codeine) 5 ml Q6H PRN ORAL cough 12/04/18 18:45 01/03/19 18:44 12/05/18 08:39 Temazepam (Restoril) 15 mg HSPRN PRN ORAL Insomnia 12/04/18 18:45 12/11/18 18:44 Theophylline (Fabrice-Dur) 100 mg EVERY 12 HOURS ORAL 12/04/18 21:00 01/03/19 20:59 12/05/18 08:39 Assessment/Plan Problem List: (1) Acute respiratory failure ICD Codes: J96.00 - Acute respiratory failure, unspecified whether with hypoxia or hypercapnia SNOMED: 82931682 (2) Acute asthma exacerbation ICD Codes: J45.901 - Unspecified asthma with (acute) exacerbation SNOMED: 840014734 (3) Seizure disorder ICD Codes: G40.909 - Epilepsy, unspecified, not intractable, without status epilepticus SNOMED: 750256413 (4) Cerebral vascular disease ICD Codes: I67.9 - Cerebrovascular disease, unspecified SNOMED: 43040519 (5) HTN (hypertension) ICD Codes: I10 - Essential (primary) hypertension SNOMED: 05680468 (6) CAD (coronary artery disease) ICD Codes: I25.10 - Atherosclerotic heart disease of [place] coronary artery without angina pectoris SNOMED: 74536676 Assessment/Plan respiratory treatment IV steroids iv abx titrate fio2 to sat of 92% continue theophylline. ID evaluation for the cellulitis of her back after "cupping" procedure. Luis A Juares MD Dec 05, 2018 11:26
--- NOTE | 2018-12-05 11:47 | NUR ---
CASE MANAGEMENT:REVIEW 83 YR OLD FEMALE FROM HOME TO ER CC: HEADACHE. LT KNEE PAIN. SOB. S/P FALL 3 DAYS AGO SI: CHF. KNEE CONTUSION 98.5 87 20 139/80 95% ON RA GLUCOSE+116 IS: DUONEB HHN TYLENOL PO X1 IV LASIX X1 IV SOLUMEDROL X1 CT HEAD AND C-SPINE : TO TELEMETRY PLAN: NEURO CHECKS Q4HRS
[2018-12-05 12:00] VITALS: BP 152/79
--- NOTE | 2018-12-05 12:57 | History & Physical ---
History and Physical History & Physicial Dictated for Int Med-Dr Garcia no. [id number]. Hank Toure MD Dec 05, 2018 12:57
[2018-12-05] MEDS: Albuterol/Ipratropium 3ml neb HHN PRN (15:30)
[2018-12-05 16:00] VITALS: BP 133/70
--- NOTE | 2018-12-05 19:41 | NUR ---
HAND-OFF: Report given to AMMY Ryan.
--- NOTE | 2018-12-05 19:42 | NUR ---
NURSE NOTES: Got report from Marni GIMENEZ. Pt in stable condition. Denies any pain. No s/s of distress noted. Pt resting in bed comfortably. Bed in low and locked position, call light within reach, bedside table within reach. Continue to monitor.
[2018-12-05 20:00] VITALS: BP 149/86
--- NOTE | 2018-12-05 20:00 | History and Physical Report ---
DATE OF ADMISSION: 12/04/2018 CHIEF COMPLAINT: The patient is an 83-year-old female, who presents with chief complaint of head pain. 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 The patient fell down 8 steps. The patient did not go to the emergency room. The patient struck her head and her left shoulder. The patient states head pain has gotten worse for the last three days. The patient states it became intractable on Monday. The patient presented to [facility]. The patient was admitted for head pain, status post fall to rule out subdural hematoma. REVIEW OF SYSTEMS: CONSTITUTIONAL: The patient denies weight loss or weight gain. The patient denies fevers or chills. HEENT: The patient denies ear or throat pain. The patient denies loss of consciousness. The patient does complain of headache as above. CHEST: The patient denies wheeze or shortness of breath. CARDIOVASCULAR: The patient denies palpitations or chest pain. GENITOURINARY: The patient denies dysuria or increased frequency of urination. GASTROINTESTINAL: The patient denies nausea, vomiting, diarrhea, or constipation. NEUROMUSCULAR: The patient denies seizures or generalized weakness. PAST MEDICAL HISTORY: Significant for: 1. Asthma. 2. History of hemorrhagic cerebrovascular accident. 3. Hypertension. 4. Hypercholesterolemia. 5. Gastroesophageal reflux disease. 6. Seizure disorder. 7. Coronary artery disease, status post stent placement in November of 2017. PAST SURGICAL HISTORY: Significant for: 1. Appendectomy. 2. Cardiac catheterization in November of 2017 with stent placement. CURRENT MEDICATIONS: 1. Albuterol metered-dose inhaler two puffs p.o. four times a day p.r.n. 2. Amlodipine 5 mg p.o. daily. 3. Lipitor 40 mg p.o. daily. 4. Plavix 75 mg p.o. daily. 5. Dexilant 60 mg p.o. daily. 6. Isordil 30 mg p.o. daily. 7. Losartan/hydrochlorothiazide 100/12.5 mg one tablet p.o. daily. 8. Singulair 10 mg p.o. nightly. 9. Dilantin 100 mg p.o. twice daily. 10. Lyrica 50 mg p.o. daily. ALLERGIES: 1. Vancomycin. 2. "Canned food." SOCIAL HISTORY: The patient is single and lives alone. The patient denies tobacco or alcohol use. PHYSICAL EXAMINATION: VITAL SIGNS: Temperature 98.2, respirations 18, pulse 91, and blood pressure 136/66. GENERAL: The patient is a well-developed and well-nourished female, in no apparent distress. HEENT: Eyes, pupils are equal and responsive to light and accommodation. Extraocular movements are intact. NECK: Supple without lymphadenopathy. CHEST: Lungs are clear to auscultation bilaterally without wheezes or rales. CARDIOVASCULAR: Regular rhythm and rate. S1 and S2 normal without murmurs, rubs, or gallops. ABDOMEN: Soft, nontender, and nondistended. Positive bowel sounds. No evidence of hepatosplenomegaly. Currently, no rebound or guarding noted. EXTREMITIES: Negative for clubbing, cyanosis, or edema. RECTAL/GENITAL: Refused. NEUROLOGIC: Cranial nerves II through XII are grossly intact without focal deficits. Motor strength is 5/5 bilaterally. Deep tendon reflexes are 2+ plantar. LABORATORY STUDIES: WBC 8.9, hemoglobin 12.6, hematocrit 37.4, and platelets 217,000. Sodium 141, potassium 3.5, chloride 102, CO2 30, BUN 19, and creatinine 0.6. Glucose 116. CT scan of the brain was reported as negative for acute intracranial bleed or mass effect. ASSESSMENT: This is an 83-year-old female with: 1. Headache. 2. Fall injury. 3. Asthma. 4. Hypertension. 5. Hypercholesterolemia. 6. Gastroesophageal reflux disease. 7. Seizure disorder. 8. Coronary artery disease. TREATMENT: 1. Headache. This probably is secondary to fall injury as above. A CT scan of the brain was reported as no acute disease. The patient is currently receiving pain medication. We will follow recommendations of Neurology. 2. Fall injury. 3. Asthma. Continue albuterol metered-dose inhaler as above. 4. Hypertension. Continue amlodipine and losartan/hydrochlorothiazide as above. 5. Hypercholesterolemia. Continue Lipitor as above. 6. Gastroesophageal reflux disease. Continue Protonix. 7. Seizure disorder. Continue Dilantin as above. 8. Coronary artery disease. The patient is status post stent placement. Hank Toure M.D. DR: MARKO JOB#: [id number] CC:
[2018-12-06 04:20] VITALS: BP 157/86
[2018-12-06] MEDS: Solu-MEDROL 125mg Inj IV SCH ×4 (06:31→17:25)
[2018-12-06] MEDS: Piperacillin/Tazobactam 3.375 GM in D5W 110 ML IVPB SCH ×3 (06:31→22:15)
--- NOTE | 2018-12-06 07:00 | NUR ---
HAND-OFF: Report given to Yung GIMENEZ. Endorsed plan of care.
--- NOTE | 2018-12-06 07:05 | NUR ---
NURSE NOTES: Report received from AMMY Ryan. Pt is sitting on the chair and eating breakfast. No signs and symptoms of distress at this time. she is on 2 liter Nasal Cannula, breathing even and unlabored. IV patent and zosyn is running. Bed is at lowest position, brakes engaged, side rails x2, bed alarm on, call light and bed side table within reach. Will continue to monitor and follow plan of care.
[2018-12-06 08:00] VITALS: BP 145/71
[2018-12-06] MEDS: Promethazine/Codeine 5ml UD ORAL PRN ×2 (08:58→22:15)
[2018-12-06] MEDS: Phenytoin 100mg cap ORAL SCH ×2 (08:59→17:25)
[2018-12-06] MEDS: Lyrica 50mg cap ORAL SCH (08:59)
[2018-12-06] MEDS: Montelukast 10mg tablet ORAL SCH (09:00)
[2018-12-06] MEDS: Theophylline ER 100mg ORAL SCH ×2 (09:00→20:17)
[2018-12-06] MEDS: Heparin 5000 units/ml inj SUBQ SCH ×2 (09:04→20:18)
--- NOTE | 2018-12-06 09:37 | Consultation ---
History of Present Illness General Date patient seen: Dec 06, 2018 Chief Complaint: General Complaint Referring physician: Asked to see patient by Dr. Juares Reason for Consultation: Back wounds Present Illness HPI Ms. Harmon is an 83 yo female with PMHx Asthma, CVA, HTN, HLD, GERD, CAD s/p stent and Seizures who presented to the ED on 12/04/18 after a fall. Her CT of her head and spine showed no fractures or bleeds. ID was consulted for back rash. The patient reports that she went for acupuncture and cupping on 12/01/18. The lesions are not painful. She is afebrile and had no leukocytosis. ID consulted for rash PMHx/PSHx CVA HTN HLD GERD CAD s/p stent Seizures SocHx No E/T/D FamHx Not contributory Allergies: Coded Allergies: VANCOMYCIN (Verified Allergy, Unknown, red eyes, itchying, 10/10/16) Uncoded Allergies: Canned Food (Allergy, Unknown, 03/22/18) Nausea/Vomitting/Indigestion Medication History Scheduled Albuterol Sulfate (Ventolin Hfa), 1 PUFF INH EVERY 6 HOURS Amlodipine Besylate* (Amlodipine Besylate*), 5 MG ORAL DAILY, (Reported) Atorvastatin (Lipitor), 40 MG ORAL DAILY, (Reported) Baclofen* (Baclofen*), 10 MG ORAL DAILY, (Reported) Clopidogrel* (Clopidogrel*), 75 MG ORAL DAILY, (Reported) Dexlansoprazole (Dexilant), 60 MG ORAL DAILY, (Reported) Isosorbide Dinitrate* (Isordil*), 30 MG ORAL DAILY, (Reported) Levocetirizine Dihydrochloride (Levocetirizine Dihydrochloride), 5 MG ORAL DAILY , (Reported) Levofloxacin (Levofloxacin*), 500 MG ORAL DAILY, (Reported) Lidocaine (Xylocaine-Mpf 1% Vial), 10 ML INJ Q8HR, (Reported) Losartan/Hydrochlorothiazide (Losartan-Hctz 100-12.5 Mg Tab), 1 TAB ORAL DAILY, (Reported) Methylprednisolone (Methylprednisolone*), 4 MG ORAL DIRECTED Montelukast Sodium* (Montelukast Sodium*), 10 MG ORAL DAILY, (Reported) Phenytoin Sodium Extended* (Phenytoin Sodium Extended*), 100 MG ORAL BID, ( Reported) Pregabalin (Lyrica), 50 MG ORAL DAILY, (Reported) [Levofloxacin 250mg], 250 MG ORAL DAILY Miscellaneous Medications [Bevespi], (Reported) Patient History Healthcare decision maker N Resuscitation status Full Code Advanced Directive on File Review of Systems ROS Narrative 12 point ROS negative except as note in the HPI. Physical Exam Last 24 Hour Vital Signs Date Time Temp Pulse Resp B/P (MAP) Pulse Ox O2 Delivery O2 Flow Rate FiO2 12/06/18 08:58 88 145/71 12/06/18 08:05 Nasal Cannula 2.0 28 12/06/18 08:04 98 Nasal Cannula 2.0 28 12/06/18 08:03 86 20 Nasal Cannula 2.0 28 12/06/18 08:00 97.3 88 23 145/71 (95) 98 12/06/18 04:20 82 12/06/18 04:20 97.5 87 20 157/86 (109) 95 12/06/18 00:00 86 12/05/18 21:00 Nasal Cannula 2.0 12/05/18 20:00 97.7 88 20 149/86 (107) 96 12/05/18 20:00 94 12/05/18 18:51 Nasal Cannula 2.0 28 12/05/18 18:51 88 18 Nasal Cannula 2.0 28 12/05/18 18:51 98 Nasal Cannula 2.0 28 12/05/18 16:00 98.3 93 22 133/70 (91) 94 12/05/18 16:00 82 12/05/18 15:30 88 18 97 Nasal Cannula 2.0 28 12/05/18 12:00 88 12/05/18 12:00 98.5 103 22 152/79 (103) 96 Height (Feet): 5 Height (Inches): 2.00 Weight (Pounds): 147 Medications Current Medications Medications (Trade) Dose Ordered Sig/Mecca Route PRN Reason Start Time Stop Time Status Last Admin Dose Admin Albuterol/ Ipratropium (Albuterol/ Ipratropium) 3 ml Q4H PRN HHN dyspnea 12/04/18 18:45 12/09/18 18:44 12/05/18 15:30 Amlodipine Besylate (Norvasc) 5 mg DAILY ORAL 12/05/18 09:00 01/04/19 08:59 12/06/18 08:58 Baclofen (Lioresal) 10 mg DAILY ORAL 12/05/18 09:00 01/04/19 08:59 12/06/18 09:00 Clopidogrel Bisulfate (Plavix) 75 mg DAILY ORAL 12/05/18 09:00 01/04/19 08:59 12/06/18 08:58 Dextrose (Dextrose 50%) 25 ml Q30M PRN IV Hypoglycemia 12/04/18 18:45 01/03/19 18:44 Dextrose (Dextrose 50%) 50 ml Q30M PRN IV Hypoglycemia 12/04/18 18:45 01/03/19 18:44 Heparin Sodium (Porcine) (Heparin 5000 units/ml) 5,000 units EVERY 12 HOURS SUBQ 12/04/18 21:00 01/03/19 20:59 12/06/18 09:04 Lorazepam (Ativan 2mg/ml 1ml) 0.5 mg Q4H PRN IV For Anxiety 12/04/18 18:45 12/11/18 18:44 Methylprednisolone Sodium Succinate (Solu-MEDROL) 60 mg EVERY 6 HOURS IV 12/05/18 00:00 01/04/19 00:00 12/06/18 06:31 Montelukast Sodium (Singulair) 10 mg DAILY ORAL 12/05/18 09:00 01/04/19 08:59 12/06/18 09:00 Morphine Sulfate (Morphine Sulfate) 2 mg Q4H PRN IVP severe pain 7-10 12/04/18 18:45 12/11/18 18:44 Nitroglycerin (Ntg) 0.4 mg Q5M X 3 DOSES PRN SL Prn Chest Pain 12/04/18 18:45 01/03/19 18:44 Ondansetron HCl (Zofran) 4 mg Q6H PRN IVP Nausea & Vomiting 12/04/18 18:45 01/03/19 18:44 Phenytoin (Dilantin) 100 mg BID ORAL 12/05/18 09:00 01/04/19 08:59 12/06/18 08:59 Piperacillin Sod/ Tazobactam Sod 3.375 gm/Dextrose 110 ml @ 27.5 mls/hr EVERY 8 HOURS IVPB 12/04/18 22:00 12/11/18 21:59 12/06/18 06:31 Pregabalin (Lyrica) 50 mg DAILY ORAL 12/05/18 09:00 01/04/19 08:59 12/06/18 08:59 Promethazine HCl/ Codeine (Phenergan with Codeine) 5 ml Q6H PRN ORAL cough 12/04/18 18:45 01/03/19 18:44 12/06/18 08:58 Temazepam (Restoril) 15 mg HSPRN PRN ORAL Insomnia 12/04/18 18:45 12/11/18 18:44 Theophylline (Fabrice-Dur) 100 mg EVERY 12 HOURS ORAL 12/04/18 21:00 01/03/19 20:59 12/06/18 09:00 Objective Narrative Gen: NAD, well appearing, alert HEENT: NCAT, MMM, EOMI, PERRL, No Oral lesion, no scleral icterus NECK: full range of motion, supple, no meningismus, No LAD, No JVD LUNGS: CTAB, No W/C, No Accessory muscle use CARDS: RRR, S1, S2, No M/R/G, ABD: Soft, NT, ND, No R/G, + BS, No HSM, No Masses : Deferred Ext: C/C/E, Pulses 2+ B/L (DP, Rad): NEURO: A/O x 4, Strength and Sensation Grossly intact PSYCH: Mood/affect normal SKIN: Warm/dry, Patient with multiple about 15 1cm scabs/skin lesions on her stomach and back. Not vesicular, No purulent drainage or cellulitis. Assessment/Plan Assessment/Plan 83 yo female with PMHx Asthma, CVA, HTN, HLD, GERD, CAD s/p stent and Seizures who presnted to the ED on 12/04/18 after a fall. Cupping and acupuncture lesions back and stomach Likely secondary to cupping and acupuncture Does not appear to be consistent in distribution or character with herpes infection. Does not appear to be infected Afebrile No leukocytosis Fall Hx of CVA HTN HLD GERD CAD s/p stent Hx of Seizures PLNA - Continue to monitor off abs - OK to D/C from an ID perspective Thank you for this consult. We will continue to follow the patient during this hospitalization. David Temple MD Dec 06, 2018 09:37
--- NOTE | 2018-12-06 11:58 | Pulmonology Progress Note ---
Assessment/Plan Problems: (1) Acute respiratory failure (2) Acute asthma exacerbation (3) Seizure disorder (4) Cerebral vascular disease (5) HTN (hypertension) (6) CAD (coronary artery disease) Assessment/Plan getting better c/o acid gastric pain ID recommendations continue same dose of steroids check sputum cultures start Carafate and Protonix dvt prophylaxis. Subjective ROS Limited/Unobtainable: No Constitutional: Reports: no symptoms HEENT: Repors: no symptoms Respiratory: Reports: no symptoms Allergies: Coded Allergies: VANCOMYCIN (Verified Allergy, Unknown, red eyes, itchying, 10/10/16) Uncoded Allergies: Canned Food (Allergy, Unknown, 03/22/18) Nausea/Vomitting/Indigestion Objective Last 24 Hour Vital Signs Date Time Temp Pulse Resp B/P (MAP) Pulse Ox O2 Delivery O2 Flow Rate FiO2 12/06/18 09:00 Nasal Cannula 2.0 12/06/18 08:58 88 145/71 12/06/18 08:05 Nasal Cannula 2.0 28 12/06/18 08:04 98 Nasal Cannula 2.0 28 12/06/18 08:03 86 20 Nasal Cannula 2.0 28 12/06/18 08:00 97.3 88 23 145/71 (95) 98 12/06/18 08:00 86 12/06/18 04:20 82 12/06/18 04:20 97.5 87 20 157/86 (109) 95 12/06/18 00:00 86 12/05/18 21:00 Nasal Cannula 2.0 12/05/18 20:00 97.7 88 20 149/86 (107) 96 12/05/18 20:00 94 12/05/18 18:51 Nasal Cannula 2.0 28 12/05/18 18:51 88 18 Nasal Cannula 2.0 28 12/05/18 18:51 98 Nasal Cannula 2.0 28 12/05/18 16:00 98.3 93 22 133/70 (91) 94 12/05/18 16:00 82 12/05/18 15:30 88 18 97 Nasal Cannula 2.0 28 12/05/18 12:00 88 12/05/18 12:00 98.5 103 22 152/79 (103) 96 General Appearance: WD/WN HEENT: normocephalic, atraumatic Respiratory/Chest: chest wall non-tender, lungs clear, normal breath sounds Breasts: no masses Cardiovascular: normal peripheral pulses Abdomen: normal bowel sounds, soft, non tender Extremities: no cyanosis, no clubbing Skin: no lesions 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 Lymphatic: no neck adenopathy Microbiology Date/Time Source Procedure Growth Status 12/04/18 17:41 Rectum Received Current Medications Medications (Trade) Dose Ordered Sig/Mecca Route PRN Reason Start Time Stop Time Status Last Admin Dose Admin Albuterol/ Ipratropium (Albuterol/ Ipratropium) 3 ml Q4H PRN HHN dyspnea 12/04/18 18:45 12/09/18 18:44 12/05/18 15:30 Amlodipine Besylate (Norvasc) 5 mg DAILY ORAL 12/05/18 09:00 01/04/19 08:59 12/06/18 08:58 Baclofen (Lioresal) 10 mg DAILY ORAL 12/05/18 09:00 01/04/19 08:59 12/06/18 09:00 Clopidogrel Bisulfate (Plavix) 75 mg DAILY ORAL 12/05/18 09:00 01/04/19 08:59 12/06/18 08:58 Dextrose (Dextrose 50%) 25 ml Q30M PRN IV Hypoglycemia 12/04/18 18:45 01/03/19 18:44 Dextrose (Dextrose 50%) 50 ml Q30M PRN IV Hypoglycemia 12/04/18 18:45 01/03/19 18:44 Heparin Sodium (Porcine) (Heparin 5000 units/ml) 5,000 units EVERY 12 HOURS SUBQ 12/04/18 21:00 01/03/19 20:59 12/06/18 09:04 Lorazepam (Ativan 2mg/ml 1ml) 0.5 mg Q4H PRN IV For Anxiety 12/04/18 18:45 12/11/18 18:44 Methylprednisolone Sodium Succinate (Solu-MEDROL) 60 mg EVERY 6 HOURS IV 12/05/18 00:00 01/04/19 00:00 12/06/18 06:31 Montelukast Sodium (Singulair) 10 mg DAILY ORAL 12/05/18 09:00 01/04/19 08:59 12/06/18 09:00 Morphine Sulfate (Morphine Sulfate) 2 mg Q4H PRN IVP severe pain 7-10 12/04/18 18:45 12/11/18 18:44 Nitroglycerin (Ntg) 0.4 mg Q5M X 3 DOSES PRN SL Prn Chest Pain 12/04/18 18:45 01/03/19 18:44 Ondansetron HCl (Zofran) 4 mg Q6H PRN IVP Nausea & Vomiting 12/04/18 18:45 01/03/19 18:44 Pantoprazole (Protonix) 40 mg EVERY 12 HOURS ORAL 12/06/18 21:00 01/05/19 20:59 UNV Phenytoin (Dilantin) 100 mg BID ORAL 12/05/18 09:00 01/04/19 08:59 12/06/18 08:59 Piperacillin Sod/ Tazobactam Sod 3.375 gm/Dextrose 110 ml @ 27.5 mls/hr EVERY 8 HOURS IVPB 12/04/18 22:00 12/11/18 21:59 12/06/18 06:31 Pregabalin (Lyrica) 50 mg DAILY ORAL 12/05/18 09:00 01/04/19 08:59 12/06/18 08:59 Promethazine HCl/ Codeine (Phenergan with Codeine) 5 ml Q6H PRN ORAL cough 12/04/18 18:45 01/03/19 18:44 12/06/18 08:58 Sucralfate (Carafate) 1 gm FOUR TIMES A DAY ORAL 12/06/18 13:00 01/05/19 12:59 UNV Temazepam (Restoril) 15 mg HSPRN PRN ORAL Insomnia 12/04/18 18:45 12/11/18 18:44 Theophylline (Fabrice-Dur) 100 mg EVERY 12 HOURS ORAL 12/04/18 21:00 01/03/19 20:59 12/06/18 09:00 Luis A Juares MD Dec 06, 2018 11:58
[2018-12-06 12:00] VITALS: BP 143/74
--- NOTE | 2018-12-06 12:00 | NUR ---
NURSE NOTES: Patient refused blood drawn (lab) three times, Dr. Juares aware.
[2018-12-06] MEDS: Sucralfate 1gm tab ORAL SCH ×3 (12:15→20:17)
--- NOTE | 2018-12-06 15:59 | Cardiology Report ---
APPROVED REPORT EXAM: Two-dimensional and M-mode echocardiogram with Doppler and color Doppler. INDICATION Left ventricular function M-Mode DIMENSIONS IVSd1.3 (0.7-1.1cm)Left Atrium (MM)3.9 (1.6-4.0cm) LVDd4.2 (3.5-5.6cm)Aortic Root3.4 (2.0-3.7cm) PWd1.2 (0.7-1.1cm)Aortic Cusp Exc.2.0 (1.5-2.0cm) LVDs2.6 (2.5-4.0cm) PWs1.3 cm Normal left ventricular chamber size, systolic function and wall motion. Left ventricular ejection fraction estimated to be 70 %. Mild left ventricular hypertrophy by 2D. Anterior Echo-free space, may be due to pericardial fat or effusion. Mild left atrial enlargement. Right cardiac chamber sizes are within normal limits. Focal aortic valve sclerosis with adequate cusp excursion. Thickened mitral valve leaflets with normal excursion. Mitral annulus and aortic root calcification. Pulmonic valve not well visualized. Normal tricuspid valve structure. IVC measured at 2.2 cm with physiologic collapse A color flow and spectral Doppler study was performed and revealed: Trace aortic regurgitation. tracemitral regurgitation. Mitral diastolic velocities suggest reduced left ventricular relaxation c/w mild LV diastolic dysfunction (Grade I). Trace tricuspid regurgitation. Tricuspid systolic velocities suggests peak right ventricular systolic pressure of 17 mmHg Modertae pulmonic regurgitation present.
[2018-12-06 16:00] VITALS: BP 133/77
[2018-12-06] MEDS: Albuterol/Ipratropium 3ml neb HHN PRN ×2 (16:08→20:07)
--- NOTE | 2018-12-06 18:59 | Internal Med Progress Note ---
Subjective Date of Service: Dec 06, 2018 Physician Name Hank Toure Attending Physician Shlomo Garcia MD Current Medications Medications (Trade) Dose Ordered Sig/Mecca Route PRN Reason Start Time Stop Time Status Last Admin Dose Admin Albuterol/ Ipratropium (Albuterol/ Ipratropium) 3 ml Q4H PRN HHN dyspnea 12/04/18 18:45 12/09/18 18:44 12/06/18 16:08 Amlodipine Besylate (Norvasc) 5 mg DAILY ORAL 12/05/18 09:00 01/04/19 08:59 12/06/18 08:58 Baclofen (Lioresal) 10 mg DAILY ORAL 12/05/18 09:00 01/04/19 08:59 12/06/18 09:00 Clopidogrel Bisulfate (Plavix) 75 mg DAILY ORAL 12/05/18 09:00 01/04/19 08:59 12/06/18 08:58 Dextrose (Dextrose 50%) 25 ml Q30M PRN IV Hypoglycemia 12/04/18 18:45 01/03/19 18:44 Dextrose (Dextrose 50%) 50 ml Q30M PRN IV Hypoglycemia 12/04/18 18:45 01/03/19 18:44 Heparin Sodium (Porcine) (Heparin 5000 units/ml) 5,000 units EVERY 12 HOURS SUBQ 12/04/18 21:00 01/03/19 20:59 12/06/18 09:04 Lorazepam (Ativan 2mg/ml 1ml) 0.5 mg Q4H PRN IV For Anxiety 12/04/18 18:45 12/11/18 18:44 Methylprednisolone Sodium Succinate (Solu-MEDROL) 60 mg EVERY 6 HOURS IV 12/05/18 00:00 01/04/19 00:00 12/06/18 17:25 Montelukast Sodium (Singulair) 10 mg DAILY ORAL 12/05/18 09:00 01/04/19 08:59 12/06/18 09:00 Morphine Sulfate (Morphine Sulfate) 2 mg Q4H PRN IVP severe pain 7-10 12/04/18 18:45 12/11/18 18:44 Nitroglycerin (Ntg) 0.4 mg Q5M X 3 DOSES PRN SL Prn Chest Pain 12/04/18 18:45 01/03/19 18:44 Ondansetron HCl (Zofran) 4 mg Q6H PRN IVP Nausea & Vomiting 12/04/18 18:45 01/03/19 18:44 Pantoprazole (Protonix) 40 mg EVERY 12 HOURS ORAL 12/06/18 21:00 01/05/19 20:59 Phenytoin (Dilantin) 100 mg BID ORAL 12/05/18 09:00 01/04/19 08:59 12/06/18 17:25 Piperacillin Sod/ Tazobactam Sod 3.375 gm/Dextrose 110 ml @ 27.5 mls/hr EVERY 8 HOURS IVPB 12/04/18 22:00 12/11/18 21:59 12/06/18 13:41 Pregabalin (Lyrica) 50 mg DAILY ORAL 12/05/18 09:00 01/04/19 08:59 12/06/18 08:59 Promethazine HCl/ Codeine (Phenergan with Codeine) 5 ml Q6H PRN ORAL cough 12/04/18 18:45 01/03/19 18:44 12/06/18 08:58 Sucralfate (Carafate) 1 gm FOUR TIMES A DAY ORAL 12/06/18 13:00 01/05/19 12:59 12/06/18 17:25 Temazepam (Restoril) 15 mg HSPRN PRN ORAL Insomnia 12/04/18 18:45 12/11/18 18:44 Theophylline (Fabrice-Dur) 100 mg EVERY 12 HOURS ORAL 12/04/18 21:00 01/03/19 20:59 12/06/18 09:00 Allergies: Coded Allergies: VANCOMYCIN (Verified Allergy, Unknown, red eyes, itchying, 10/10/16) Uncoded Allergies: Canned Food (Allergy, Unknown, 03/22/18) Nausea/Vomitting/Indigestion ROS Limited/Unobtainable: No Constitutional: Reports: no symptoms HEENT: Reports: no symptoms Cardiovascular: Reports: no symptoms Respiratory: Reports: no symptoms Gastrointestinal/Abdominal: Reports: no symptoms Genitourinary: Reports: no symptoms Neurologic/Psychiatric: Reports: no symptoms Subjective 83 YO F admitted with headache and fall injury. Cover for Int Alex-Dr Garcia Objective Last Vital Signs Date Time Temp Pulse Resp B/P (MAP) Pulse Ox O2 Delivery O2 Flow Rate FiO2 12/06/18 16:10 85 18 95 Room Air 21 12/06/18 16:00 98.5 133/77 (95) 12/06/18 09:00 2.0 Microbiology Date/Time Source Procedure Growth Status 12/04/18 17:41 Rectum Received Objective PHYSICAL EXAMINATION: GENERAL: The patient is a well-developed and well-nourished female, in no apparent distress. HEENT: Eyes, pupils are equal and responsive to light and accommodation. Extraocular movements are intact. NECK: Supple without lymphadenopathy. CHEST: Lungs are clear to auscultation bilaterally without wheezes or rales. CARDIOVASCULAR: Regular rhythm and rate. S1 and S2 normal without murmurs, rubs, or gallops. ABDOMEN: Soft, nontender, and nondistended. Positive bowel sounds. No evidence of hepatosplenomegaly. Currently, no rebound or guarding noted. EXTREMITIES: Negative for clubbing, cyanosis, or edema. RECTAL/GENITAL: Refused. NEUROLOGIC: Cranial nerves II through XII are grossly intact without focal deficits. Motor strength is 5/5 bilaterally. Deep tendon reflexes are 2+ plantar. Assessment/Plan Problem List: (1) Headache, post-traumatic, acute Assessment & Plan: CT brain =WNL. (2) Hypercholesterolemia (3) Acute asthma exacerbation Assessment & Plan: see pulmonary note. (4) HTN (hypertension) (5) Seizure disorder Assessment & Plan: Continue dilantin (6) GERD (gastroesophageal reflux disease) (7) Skin lesions Assessment & Plan: Due to acupuncture cupping procedure-see ID note. Status: progressing Hank Toure MD Dec 06, 2018 18:59
--- NOTE | 2018-12-06 19:05 | NUR ---
HAND-OFF: Report given to AMMY Saini.
--- NOTE | 2018-12-06 19:10 | NUR ---
NURSE NOTES: Received report from AMMY Mendosa. Patient sitting in chair awake showing no signs of acute distress. Respiration even and non labored on 2L NC. No sob noted. IV line patent and intact. Call light within reach. All needs attended and met. Will continue plan of care.
[2018-12-06 20:00] VITALS: BP 136/64
--- NOTE | 2018-12-06 20:45 | NUR ---
HAND-OFF: Report given to AMMY Lechuga. Patient transferred to [facility]. Patient stable
--- NOTE | 2018-12-06 23:15 | NUR ---
NURSE NOTES: Received patient from tele floor. Patient awake and able to verbalize needs, no c/o pain at this time, no s/s of acute distress. Patient ambulatory, aox3. Pt oriented to room, bed on lowest position, call light and belongings within reach. Chart and abx transferred with patient.
[2018-12-07] VITALS: BP 142/64
[2018-12-07] MEDS: Solu-MEDROL 125mg Inj IV SCH ×4 (00:01→18:00)
[2018-12-07 04:00] VITALS: BP 149/72
[2018-12-07] MEDS: Piperacillin/Tazobactam 3.375 GM in D5W 110 ML IVPB SCH (05:41)
--- NOTE | 2018-12-07 07:13 | NUR ---
HAND-OFF: Report given to AMMY Cunha.
--- NOTE | 2018-12-07 07:15 | NUR ---
NURSE NOTES: Patient is sitting up in chair eating breakfast. Stable and able to verbalize needs. Denies pain and SOB. Patient encouraged to use call light for assistance, verbalized understanding. Patient is in good spirits with call light within reach. All safety measures provided. Seizure precautions provided. Will continue to monitor.
--- NOTE | 2018-12-07 07:39 | Infectious Diseases Prog Note ---
Assessment/Plan Assessment/Plan Gen: NAD, well appearing, alert HEENT: NCAT, MMM, EOMI, PERRL, No Oral lesion, no scleral icterus NECK: full range of motion, supple, no meningismus, No LAD, No JVD LUNGS: CTAB, No W/C, No Accessory muscle use CARDS: RRR, S1, S2, No M/R/G, ABD: Soft, NT, ND, No R/G, + BS, No HSM, No Masses : Deferred Ext: C/C/E, Pulses 2+ B/L (DP, Rad): NEURO: A/O x 4, Strength and Sensation Grossly intact PSYCH: Mood/affect normal SKIN: Warm/dry, Patient with multiple about 15 1cm scabs/skin lesions on her stomach and back. Not vesicular, No purulent drainage or cellulitis. Assessment/Plan Assessment/Plan Assessment/Plan 83 yo female with PMHx Asthma, CVA, HTN, HLD, GERD, CAD s/p stent and Seizures who presnted to the ED on 12/04/18 after a fall. Cupping and acupuncture lesions back and stomach Likely secondary to cupping and acupuncture Does not appear to be consistent in distribution or character with herpes infection. Does not appear to be infected Afebrile No leukocytosis Fall Hx of CVA HTN HLD GERD CAD s/p stent Hx of Seizures PLNA - Continue to monitor off abx - 12/07/18 S/P Zosyn #4 - OK to D/C from an ID perspective Thank you for this consult. We will continue to follow the patient during this hospitalization. Subjective Allergies: Coded Allergies: VANCOMYCIN (Verified Allergy, Unknown, red eyes, itchying, 10/10/16) Uncoded Allergies: Canned Food (Allergy, Unknown, 03/22/18) Nausea/Vomitting/Indigestion Subjective Afebrile Doing well AVINASH Objective Vital Signs Last 24 Hour Vital Signs Date Time Temp Pulse Resp B/P (MAP) Pulse Ox O2 Delivery O2 Flow Rate FiO2 12/07/18 04:00 97.5 80 18 149/72 (97) 100 12/07/18 00:00 98.3 82 18 142/64 (90) 99 12/06/18 21:00 Nasal Cannula 2.0 12/06/18 20:15 87 18 100 Nasal Cannula 2.0 28 12/06/18 20:07 Nasal Cannula 2.0 28 12/06/18 20:07 85 20 Nasal Cannula 2.0 28 12/06/18 20:07 85 20 98 Nasal Cannula 2.0 28 12/06/18 20:07 98 Nasal Cannula 2.0 28 12/06/18 20:00 98.0 92 20 136/64 (88) 96 12/06/18 16:10 85 18 95 Room Air 21 12/06/18 16:00 98.5 89 21 133/77 (95) 95 12/06/18 16:00 99 12/06/18 12:00 79 12/06/18 12:00 98.0 80 20 143/74 (97) 98 12/06/18 09:00 Nasal Cannula 2.0 12/06/18 08:58 88 145/71 12/06/18 08:05 Nasal Cannula 2.0 28 12/06/18 08:04 98 Nasal Cannula 2.0 28 12/06/18 08:03 86 20 Nasal Cannula 2.0 28 12/06/18 08:00 97.3 88 23 145/71 (95) 98 12/06/18 08:00 86 Height (Feet): 5 Height (Inches): 2.00 Weight (Pounds): 147 Objective Gen: NAD, well appearing, alert HEENT: NCAT, MMM, EOMI LUNGS: CTAB, No W CARDS: RRR, S1, S2, No M/R/G, ABD: Soft, NT, ND, + BS SKIN: Warm/dry, Patient with multiple about 15 1cm scabs/skin lesions on her stomach and back. Not vesicular, No purulent drainage or cellulitis. Microbiology Date/Time Source Procedure Growth Status 12/04/18 17:41 Rectum Received Current Medications Medications (Trade) Dose Ordered Sig/Mecca Route PRN Reason Start Time Stop Time Status Last Admin Dose Admin Albuterol/ Ipratropium (Albuterol/ Ipratropium) 3 ml Q4H PRN HHN dyspnea 12/04/18 18:45 12/09/18 18:44 12/06/18 20:07 Amlodipine Besylate (Norvasc) 5 mg DAILY ORAL 12/05/18 09:00 01/04/19 08:59 12/06/18 08:58 Baclofen (Lioresal) 10 mg DAILY ORAL 12/05/18 09:00 01/04/19 08:59 12/06/18 09:00 Clopidogrel Bisulfate (Plavix) 75 mg DAILY ORAL 12/05/18 09:00 01/04/19 08:59 12/06/18 08:58 Dextrose (Dextrose 50%) 25 ml Q30M PRN IV Hypoglycemia 12/04/18 18:45 01/03/19 18:44 Dextrose (Dextrose 50%) 50 ml Q30M PRN IV Hypoglycemia 12/04/18 18:45 01/03/19 18:44 Heparin Sodium (Porcine) (Heparin 5000 units/ml) 5,000 units EVERY 12 HOURS SUBQ 12/04/18 21:00 01/03/19 20:59 12/06/18 20:18 Lorazepam (Ativan 2mg/ml 1ml) 0.5 mg Q4H PRN IV For Anxiety 12/04/18 18:45 12/11/18 18:44 Methylprednisolone Sodium Succinate (Solu-MEDROL) 60 mg EVERY 6 HOURS IV 12/05/18 00:00 01/04/19 00:00 12/07/18 05:13 Montelukast Sodium (Singulair) 10 mg DAILY ORAL 12/05/18 09:00 01/04/19 08:59 12/06/18 09:00 Morphine Sulfate (Morphine Sulfate) 2 mg Q4H PRN IVP severe pain 7-10 12/04/18 18:45 12/11/18 18:44 Nitroglycerin (Ntg) 0.4 mg Q5M X 3 DOSES PRN SL Prn Chest Pain 12/04/18 18:45 01/03/19 18:44 Ondansetron HCl (Zofran) 4 mg Q6H PRN IVP Nausea & Vomiting 12/04/18 18:45 01/03/19 18:44 Pantoprazole (Protonix) 40 mg EVERY 12 HOURS ORAL 12/06/18 21:00 01/05/19 20:59 12/06/18 20:17 Phenytoin (Dilantin) 100 mg BID ORAL 12/05/18 09:00 01/04/19 08:59 12/06/18 17:25 Piperacillin Sod/ Tazobactam Sod 3.375 gm/Dextrose 110 ml @ 27.5 mls/hr EVERY 8 HOURS IVPB 12/04/18 22:00 12/11/18 21:59 12/07/18 05:41 Pregabalin (Lyrica) 50 mg DAILY ORAL 12/05/18 09:00 01/04/19 08:59 12/06/18 08:59 Promethazine HCl/ Codeine (Phenergan with Codeine) 5 ml Q6H PRN ORAL cough 12/04/18 18:45 01/03/19 18:44 12/06/18 22:15 Sucralfate (Carafate) 1 gm FOUR TIMES A DAY ORAL 12/06/18 13:00 01/05/19 12:59 12/06/18 20:17 Temazepam (Restoril) 15 mg HSPRN PRN ORAL Insomnia 12/04/18 18:45 12/11/18 18:44 Theophylline (Fabrice-Dur) 100 mg EVERY 12 HOURS ORAL 12/04/18 21:00 01/03/19 20:59 12/06/18 20:17 David Temple MD Dec 07, 2018 07:39
[2018-12-07 08:00] VITALS: BP 167/90
[2018-12-07] MEDS: Heparin 5000 units/ml inj SUBQ SCH (08:49)
[2018-12-07] MEDS: Montelukast 10mg tablet ORAL SCH (08:50)
[2018-12-07] MEDS: Theophylline ER 100mg ORAL SCH (08:50)
[2018-12-07] MEDS: Sucralfate 1gm tab ORAL SCH ×3 (08:50→18:00)
[2018-12-07] MEDS: Lyrica 50mg cap ORAL SCH (08:50)
[2018-12-07] MEDS: Phenytoin 100mg cap ORAL SCH ×2 (08:51→18:00)
[2018-12-07 12:00] VITALS: BP 142/107
[2018-12-07] MEDS: Promethazine/Codeine 5ml UD ORAL PRN (12:33)
--- NOTE | 2018-12-07 15:39 | Pulmonology Progress Note ---
Assessment/Plan Problems: (1) Acute respiratory failure (2) Acute asthma exacerbation (3) Seizure disorder (4) Cerebral vascular disease (5) HTN (hypertension) (6) CAD (coronary artery disease) Assessment/Plan less short of breathgetting better c/o acid gastric pain ID recommendations continue same dose of steroids check sputum cultures start Carafate and Protonix all reviewed dvt prophylaxis. dc home Subjective ROS Limited/Unobtainable: No Constitutional: Reports: no symptoms HEENT: Repors: no symptoms Allergies: Coded Allergies: VANCOMYCIN (Verified Allergy, Unknown, red eyes, itchying, 10/10/16) Uncoded Allergies: Canned Food (Allergy, Unknown, 03/22/18) Nausea/Vomitting/Indigestion Objective Last 24 Hour Vital Signs Date Time Temp Pulse Resp B/P (MAP) Pulse Ox O2 Delivery O2 Flow Rate FiO2 12/07/18 12:00 97.9 81 17 142/107 (119) 95 12/07/18 09:00 Nasal Cannula 2.0 12/07/18 08:51 81 167/90 12/07/18 08:00 97.7 81 17 167/90 (115) 95 12/07/18 07:30 98 Room Air 21 12/07/18 07:30 84 20 Nasal Cannula 21 12/07/18 07:30 Room Air 21 12/07/18 04:00 97.5 80 18 149/72 (97) 100 12/07/18 00:00 98.3 82 18 142/64 (90) 99 12/06/18 21:00 Nasal Cannula 2.0 12/06/18 20:15 87 18 100 Nasal Cannula 2.0 28 12/06/18 20:07 Nasal Cannula 2.0 28 12/06/18 20:07 85 20 Nasal Cannula 2.0 28 12/06/18 20:07 85 20 98 Nasal Cannula 2.0 28 12/06/18 20:07 98 Nasal Cannula 2.0 28 12/06/18 20:00 98.0 92 20 136/64 (88) 96 12/06/18 16:10 85 18 95 Room Air 21 12/06/18 16:00 98.5 89 21 133/77 (95) 95 12/06/18 16:00 99 General Appearance: WD/WN HEENT: normocephalic, anicteric Respiratory/Chest: chest wall non-tender, lungs clear Breasts: no masses Cardiovascular: regular rhythm Abdomen: soft, non tender, no organomegaly Extremities: no clubbing Skin: no rash Microbiology Date/Time Source Procedure Growth Status 12/06/18 08:45 Sputum Gram Stain - Final Resulted 12/06/18 08:45 Sputum Sputum Culture - Preliminary NORMAL UPPER RESPIRATORY SRUTHI AT 24 ... Resulted 12/04/18 17:41 Nasal Nares MRSA Culture - Final NO METHICILLIN RESISTANT STAPH AUREUS... Complete 12/05/18 17:41 Rectum - Final NO CARBAPENEM-RESISTANT ENTEROBACTERI... Complete 12/04/18 17:41 Rectum VRE Culture - Final NO VANCOMYCIN RESISTANT ENTEROCOCCUS ... Complete Current Medications Medications (Trade) Dose Ordered Sig/Mecca Route PRN Reason Start Time Stop Time Status Last Admin Dose Admin Albuterol/ Ipratropium (Albuterol/ Ipratropium) 3 ml Q4H PRN HHN dyspnea 12/04/18 18:45 12/09/18 18:44 12/06/18 20:07 Amlodipine Besylate (Norvasc) 5 mg DAILY ORAL 12/05/18 09:00 01/04/19 08:59 12/07/18 08:51 Baclofen (Lioresal) 10 mg DAILY ORAL 12/05/18 09:00 01/04/19 08:59 12/07/18 08:50 Clopidogrel Bisulfate (Plavix) 75 mg DAILY ORAL 12/05/18 09:00 01/04/19 08:59 12/07/18 08:50 Dextrose (Dextrose 50%) 25 ml Q30M PRN IV Hypoglycemia 12/04/18 18:45 01/03/19 18:44 Dextrose (Dextrose 50%) 50 ml Q30M PRN IV Hypoglycemia 12/04/18 18:45 01/03/19 18:44 Heparin Sodium (Porcine) (Heparin 5000 units/ml) 5,000 units EVERY 12 HOURS SUBQ 12/04/18 21:00 01/03/19 20:59 12/07/18 08:49 Lorazepam (Ativan 2mg/ml 1ml) 0.5 mg Q4H PRN IV For Anxiety 12/04/18 18:45 12/11/18 18:44 Methylprednisolone Sodium Succinate (Solu-MEDROL) 60 mg EVERY 6 HOURS IV 12/05/18 00:00 01/04/19 00:00 12/07/18 12:31 Montelukast Sodium (Singulair) 10 mg DAILY ORAL 12/05/18 09:00 01/04/19 08:59 12/07/18 08:50 Morphine Sulfate (Morphine Sulfate) 2 mg Q4H PRN IVP severe pain 7-10 12/04/18 18:45 12/11/18 18:44 Nitroglycerin (Ntg) 0.4 mg Q5M X 3 DOSES PRN SL Prn Chest Pain 12/04/18 18:45 01/03/19 18:44 Ondansetron HCl (Zofran) 4 mg Q6H PRN IVP Nausea & Vomiting 12/04/18 18:45 01/03/19 18:44 Pantoprazole (Protonix) 40 mg EVERY 12 HOURS ORAL 12/06/18 21:00 01/05/19 20:59 12/07/18 08:50 Phenytoin (Dilantin) 100 mg BID ORAL 12/05/18 09:00 01/04/19 08:59 12/07/18 08:51 Pregabalin (Lyrica) 50 mg DAILY ORAL 12/05/18 09:00 01/04/19 08:59 12/07/18 08:50 Promethazine HCl/ Codeine (Phenergan with Codeine) 5 ml Q6H PRN ORAL cough 12/04/18 18:45 01/03/19 18:44 12/07/18 12:33 Sucralfate (Carafate) 1 gm FOUR TIMES A DAY ORAL 12/06/18 13:00 01/05/19 12:59 12/07/18 12:31 Temazepam (Restoril) 15 mg HSPRN PRN ORAL Insomnia 12/04/18 18:45 12/11/18 18:44 Theophylline (Fabrice-Dur) 100 mg EVERY 12 HOURS ORAL 12/04/18 21:00 01/03/19 20:59 12/07/18 08:50 Luis A Juares MD Dec 07, 2018 15:39
[2018-12-07 16:00] VITALS: BP 151/78
--- NOTE | 2018-12-07 17:14 | Internal Med Progress Note ---
Subjective Physician Name Shlomo Garcia Attending Physician Shlomo Garcia MD Current Medications Medications (Trade) Dose Ordered Sig/Mecca Route PRN Reason Start Time Stop Time Status Last Admin Dose Admin Albuterol/ Ipratropium (Albuterol/ Ipratropium) 3 ml Q4H PRN HHN dyspnea 12/04/18 18:45 12/09/18 18:44 12/06/18 20:07 Amlodipine Besylate (Norvasc) 5 mg DAILY ORAL 12/05/18 09:00 01/04/19 08:59 12/07/18 08:51 Baclofen (Lioresal) 10 mg DAILY ORAL 12/05/18 09:00 01/04/19 08:59 12/07/18 08:50 Clopidogrel Bisulfate (Plavix) 75 mg DAILY ORAL 12/05/18 09:00 01/04/19 08:59 12/07/18 08:50 Dextrose (Dextrose 50%) 25 ml Q30M PRN IV Hypoglycemia 12/04/18 18:45 01/03/19 18:44 Dextrose (Dextrose 50%) 50 ml Q30M PRN IV Hypoglycemia 12/04/18 18:45 01/03/19 18:44 Heparin Sodium (Porcine) (Heparin 5000 units/ml) 5,000 units EVERY 12 HOURS SUBQ 12/04/18 21:00 01/03/19 20:59 12/07/18 08:49 Lorazepam (Ativan 2mg/ml 1ml) 0.5 mg Q4H PRN IV For Anxiety 12/04/18 18:45 12/11/18 18:44 Methylprednisolone Sodium Succinate (Solu-MEDROL) 60 mg EVERY 6 HOURS IV 12/05/18 00:00 01/04/19 00:00 12/07/18 12:31 Montelukast Sodium (Singulair) 10 mg DAILY ORAL 12/05/18 09:00 01/04/19 08:59 12/07/18 08:50 Morphine Sulfate (Morphine Sulfate) 2 mg Q4H PRN IVP severe pain 7-10 12/04/18 18:45 12/11/18 18:44 Nitroglycerin (Ntg) 0.4 mg Q5M X 3 DOSES PRN SL Prn Chest Pain 12/04/18 18:45 01/03/19 18:44 Ondansetron HCl (Zofran) 4 mg Q6H PRN IVP Nausea & Vomiting 12/04/18 18:45 01/03/19 18:44 Pantoprazole (Protonix) 40 mg EVERY 12 HOURS ORAL 12/06/18 21:00 01/05/19 20:59 12/07/18 08:50 Phenytoin (Dilantin) 100 mg BID ORAL 12/05/18 09:00 01/04/19 08:59 12/07/18 08:51 Pregabalin (Lyrica) 50 mg DAILY ORAL 12/05/18 09:00 01/04/19 08:59 12/07/18 08:50 Promethazine HCl/ Codeine (Phenergan with Codeine) 5 ml Q6H PRN ORAL cough 12/04/18 18:45 01/03/19 18:44 12/07/18 12:33 Sucralfate (Carafate) 1 gm FOUR TIMES A DAY ORAL 12/06/18 13:00 01/05/19 12:59 12/07/18 12:31 Temazepam (Restoril) 15 mg HSPRN PRN ORAL Insomnia 12/04/18 18:45 12/11/18 18:44 Theophylline (Fabrice-Dur) 100 mg EVERY 12 HOURS ORAL 12/04/18 21:00 01/03/19 20:59 12/07/18 08:50 Allergies: Coded Allergies: VANCOMYCIN (Verified Allergy, Unknown, red eyes, itchying, 10/10/16) Uncoded Allergies: Canned Food (Allergy, Unknown, 03/22/18) Nausea/Vomitting/Indigestion Subjective awake, alert, responsive, NAD, less SOB, Less cough. Objective Last Vital Signs Date Time Temp Pulse Resp B/P (MAP) Pulse Ox O2 Delivery O2 Flow Rate FiO2 12/07/18 16:00 98.2 79 16 151/78 (102) 95 12/07/18 09:00 Nasal Cannula 2.0 12/07/18 07:30 21 Microbiology Date/Time Source Procedure Growth Status 12/06/18 08:45 Sputum Gram Stain - Final Resulted 12/06/18 08:45 Sputum Sputum Culture - Preliminary NORMAL UPPER RESPIRATORY SRUTHI AT 24 ... Resulted 12/04/18 17:41 Nasal Nares MRSA Culture - Final NO METHICILLIN RESISTANT STAPH AUREUS... Complete 12/05/18 17:41 Rectum - Final NO CARBAPENEM-RESISTANT ENTEROBACTERI... Complete 12/04/18 17:41 Rectum VRE Culture - Final NO VANCOMYCIN RESISTANT ENTEROCOCCUS ... Complete Intake and Output 12/06/18 12/07/18 19:00 07:00 # Voids 5 2 # Bowel Movements 1 1 Objective General: No acute distress, awake and alert HEENT: NCAT, sclera anicteric, PERRL, EOMI. Neck: Supple, no significant jugular venous distention, Lungs: Good inspiratory effort, less Wheeze No Rales. Heart: Regular rate and rhythm, normal S1/S2, no murmur. Abdomen: soft, nontender, nondistended. Normoactive bowel sounds, obesity. / Rectal: Refused and deferred. Extremities: No Cyanosis , clubbing or edema. Neuro: A&O x 3, Able to move all extremities Skin: warm, no rashes or lesions Psych: Normal mood and affect Assessment/Plan Assessment/Plan (1) Headache, post-traumatic, acute Assessment & Plan: CT brain =WNL. (2) Hypercholesterolemia (3) Acute asthma exacerbation Assessment & Plan: see pulmonary note. (4) HTN (hypertension) (5) Seizure disorder Assessment & Plan: Continue dilantin (6) GERD (gastroesophageal reflux disease) (7) Skin lesions Assessment & Plan: Due to acupuncture cupping procedure-see ID note. Plan: DC home today. Shlomo Garcia MD Dec 07, 2018 17:14
--- NOTE | 2018-12-07 18:30 | NUR ---
NURSE NOTES: Patient discharged home as ordered. Patient is AOx4, stable, denies pain or SOB. Patient was given thorough discharge instructions, verbalized understanding. No IV access. All belongings given to patient. Skin is clean, dry, and intact. Same bruising noted since admission. Patient assisted into private vehicle by RN without complications.
--- NOTE | 2018-12-10 10:35 | Discharge Summary ---
Discharge Summary Discharge Summary _ DATE OF ADMISSION: 12/2018 DATE OF DISCHARGE: 12/07/2018 DISCHARGED BY: Dr. Garcia REASON FOR ADMISSION: 83 years old female with past medical history of asthma/COPD, hypertension, history of CVA, seizure disorder, presented to the emergency department accompanied by the family member with increased difficulty of breathing. Patient reported recent fall about 3 days ago. Patient had a history of coronary artery disease, status post stent placement, currently on Plavix. Patient reported pain in her head and neck. Additionally patient reported pain in her left knee. Patient denied loss of consciousness or blackouts. She stated that she tripped while walking downstairs. Upon evaluation patient. N t required supplemental oxygen CT of the head revealed chronic age-related changes. Old lacunar infarcts in the bilateral basal ganglia. No acute intracranial bleeding or mass-effect noted. Cervical spine CT scan revealed evidence of fairly extensive degenerative changes. Subcentimeter right lobe thyroid nodules. No acute injury. X-ray of the left knee revealed no acute bony trauma. Mild degenerative changes noted. Chest x-ray revealed cardiomegaly with evidence of mild interstitial congestion. Laboratory workup revealed no leukocytosis, stable hemoglobin and hematocrit. BUN 19, creatinine 0.6. Glucose 116. Stable LFT. Albumin 3.3. Troponin negative. BNP 70. EKG revealed normal sinus rhythm no acute ischemic changes. Dilantin level therapeutic -10.7. Patient was admitted for further management. CONSULTANTS: pulmonary Dr. Blanquita GONZALEZ specialist Dr. Prado [facility]: Patient admitted. Supplemental oxygen provided as needed to keep pulse oximetry above 90%. Pulmonary toilet with bronchodilator provided. Patient started on IV steroids and empiric antibiotic. Singular at night continued. Antitussive provided as needed. DVT prophylaxis provided. Sputum culture was negative. Respiratory status was slowly improving. Patient will need to complete Medrol Dosepak at home upon discharge. Echocardiogram revealed preserved ejection fraction of 70% with mild left ventricular hypertrophy. No evidence of wall motion abnormality. Right ventricular systolic pressure of 17. Moderate pulmonic regurgitation. Pain management was addressed as needed. Fall precautions were maintained. Seizure precautions maintained. No evidence of seizure activity while in the hospital. Dilantin was continued. Blood pressure was managed with calcium channel steph and remained stable. Plavix continued. Stable hemoglobin and hematocrit. GI prophylaxis and Carafate continued. Supportive care provided. Infectious disease specialist closely followed. Patient with skin lesions on the back and stomach, likely secondary to cupping and acupuncture. Skin lesions did not appear to be consistent in distribution or characteristic of herpes infection and not seemed to be infected. Patient remained afebrile. No leukocytosis. Patient clinically stabilized. Patient was able to be weaned from the supplemental oxygen. Pulse oximetry stable on room air prior to discharge. Pain was controlled. Patient was stable for discharge home. FINAL DIAGNOSES: Acute asthma exacerbation Acute respiratory failure-resolved Left knee contusion, secondary to mechanical fall Acute posttraumatic headache. Hypercholesterolemia Hypertension Coronary artery disease, status post stent Seizure disorder Cerebrovascular disease GERD Skin lesions . DISCHARGE MEDICATIONS: See Medication Reconciliation list. DISCHARGE INSTRUCTIONS: Patient was discharged home . Follow up with primary care provider in one week. I have been assigned to dictate discharge summary for this account. I was not involved in the patient's management. Jessica Landry NP Dec 10, 2018 10:35
== END 2018-12-07 18:25 | disposition home or self-care (01) | DRG 202 ==
LOC: EMR 15:07 → 2E 17:25 → EDBEDREQ 17:41 → 2E 19:57 → 3E 12-06 20:40
DX: J45.901 Unspecified asthma with (acute) exacerbation (principal); J96.00 Acute respiratory failure, unspecified whether with hypoxia or hypercapnia; Z88.1 Allergy status to other antibiotic agents; K21.9 Gastro-esophageal reflux disease without esophagitis; I25.10 Atherosclerotic heart disease of native coronary artery without angina pectoris; Z95.5 Presence of coronary angioplasty implant and graft; E78.00 Pure hypercholesterolemia, unspecified; G40.909 Epilepsy, unspecified, not intractable, without status epilepticus; Z79.02 Long term (current) use of antithrombotics/antiplatelets; S80.02XA Contusion of left knee, initial encounter; W19.XXXA Unspecified fall, initial encounter; G44.309 Post-traumatic headache, unspecified, not intractable; Z86.73 Personal history of transient ischemic attack (TIA), and cerebral infarction without residual deficits; R21 Rash and other nonspecific skin eruption
CPT/HCPCS: 36415; 70450; 71045; 72125; 80053; 80185; 83880; 84484; 85025; 85610; 85730; 87070; 87081; 87205; 93005; 93306; 94640; 94664; 94760; 96374; 96375; 99285; J7620

== ENCOUNTER 2019-01-17 09:09 | Inpatient (IN) | payer MEDICARE, MEDICAID ==
[~2019-01-17] VITALS: Ht 157.5 cm; Wt 72.6 kg
[2019-01-17 09:10] VITALS: BP 125/72
[2019-01-17] MEDS ORDERED: Solu-MEDROL 125mg Inj IVP ONE (09:15)
[2019-01-17] MEDS: Albuterol ud Inhalation HHN SCH ×3 (09:21→10:12)
[2019-01-17] MEDS: Ipratropium 0.02% Inh Soln 2.5ml UD HHN SCH ×3 (09:21→10:12)
--- NOTE | 2019-01-17 09:23 | Emergency Room Report ---
History of Present Illness General Chief Complaint: Dyspnea/Respdistress Source: Patient, Medical Record Present Illness HPI 84yo F with h/o asthma, htn, sz, presents with dry cough, SOB since last night, minimal relief with home nebs. Denies f/c, chest pain, abdominal pain but does report abdominal and B/L LE swelling. She also reports L knee pain when standing for long periods. Allergies: Uncoded Allergies: Canned Food (Allergy, Unknown, 03/22/18) Nausea/Vomitting/Indigestion Patient History Past Medical History: see triage record Reviewed Nursing Documentation: PMH: Agreed; PSxH: Agreed Nursing Documentation-PMH Past Medical History: No History, Except For Hx Cardiac Problems: Yes Hx Hypertension: Yes Hx Asthma: Yes Hx COPD: Yes Hx Cancer: No Hx Gastrointestinal Problems: Yes Hx Neurological Problems: Yes Hx Cerebrovascular Accident: Yes Hx Transient Ischemic Attacks: Yes Hx Seizures: Yes Hx Epilepsy: Yes Review of Systems All Other Systems: negative except mentioned in HPI Physical Exam Vital Signs Date Time Temp Pulse Resp B/P (MAP) Pulse Ox O2 Delivery O2 Flow Rate FiO2 01/17/19 09:07 98.2 89 16 98 Room Air Sp02 EP Interpretation: reviewed, normal General Appearance: no apparent distress, alert, non-toxic Head: normocephalic Eyes: bilateral eye normal inspection, bilateral eye PERRL, bilateral eye EOMI ENT: normal ENT inspection, hearing grossly normal, normal pharynx, no angioedema, normal voice, moist mucus membranes Neck: normal inspection, full range of motion, supple, supple/symm/no masses Respiratory: chest non-tender, decreased breath sounds - diminished at B/L bases, accessory muscle use - + tachypnea, SCM prominence, supraclavicular retractions, wheezing, chest symmetrical, palpation of chest normal Cardiovascular #1: normal peripheral pulses, regular rate, rhythm, no gallop, no murmur, no rub, edema - 1+ B/L LE edema Cardiovascular #2: 2+ radial (R), 2+ radial (L), 2+ dorsalis pedis (R), 2+ dorsalis pedis (L) Gastrointestinal: normal inspection, non tender, soft, no mass, no guarding, no rebound Rectal: deferred Genitourinary: normal inspection, no CVA tenderness Musculoskeletal: back normal, gait/station normal, normal range of motion, non- tender, no calf tenderness, Sea's Sign negative, other - mild b/L knee effusions, no overlying erythema, +FROM Neurologic: alert, responsive, media monitor III-XII nml as tested, motor strength/tone normal, sensory intact, speech normal Psychiatric: judgement/insight normal, memory normal, mood/affect normal, no suicidal/homicidal ideation Skin: normal color, no rash, warm/dry, normal turgor Lymphatic: no adenopathy Medical Decision Making Diagnostic Impression: Primary Impression: Acute asthma exacerbation ER Course Patient given nebs, iv solumedrol, and still wheezy, but feels improvement. Presentation concerning for possible fluid overload, but mainly asthma as CXR shows no pulmonary edema. Patient also has chronic L knee pain, but likely arthritic in nature, exam with only small effusion, no sign of infection or fx/ dislocation. Will admit to Dr. Garcia on tele. EKG Diagnostic Results EKG Time: 09:18 EP Interpretation: no stemi Rate: normal Rhythm: NSR ST Segments: no acute changes ASA given to the pt in ED: Yes Rhythm Strip Diag. Results Rhythm Strip Time: 09:22 EP Interpretation: yes Rate: 91 Rhythm: NSR, no PVC's, no ectopy Chest X-Ray Diagnostic Results Chest X-Ray Diagnostic Results : Chest X-Ray Ordered: Yes # of Views/Limited/Complete: 1 View Indication: Shortness of Breath EP Interpretation: Yes Interpretation: no consolidation, no effusion, no pneumothorax, no acute cardiopulmonary disease Impression: No acute disease Electronically Signed by: Nicholas Francis MD Last Vital Signs Date Time Temp Pulse Resp B/P (MAP) Pulse Ox O2 Delivery O2 Flow Rate FiO2 01/17/19 09:07 98.2 89 16 98 Room Air Disposition: ADMITTED INPATIENT Condition: Stable NICHOLAS FRANCIS M.D January 17, 2019 09:23
[2019-01-17 09:55] LABS: BASOPHILS % (AUTO) 0.5 % (0.0-2.0); EOSINOPHILS % (AUTO) 2.3 % (0.0-3.0); HEMATOCRIT 41.6 % (37.0-47.0); HEMOGLOBIN 14.1 G/DL (12.0-16.0); LYMPHOCYTES % (AUTO) 21.3 % (20.0-45.0); MEAN CORPUSCULAR VOLUME 90 FL (80-99); NEUTROPHILS % (AUTO) 68.9 % (45.0-75.0); PLATELET COUNT 246 K/UL (150-450); RED BLOOD COUNT 4.64 M/UL (4.20-5.40); RED CELL DISTRIBUTION WIDTH 13.3 % (11.6-14.8)
[2019-01-17 10:18] LABS: ANION GAP 9 mmol/L (5-15); BLOOD UREA NITROGEN 18 mg/dL (7-18); CALCIUM 9.2 MG/DL (8.5-10.1); CARBON DIOXIDE 30 MMOL/L (21-32); CHLORIDE 101 MMOL/L (98-107); CREATININE 0.6 MG/DL (0.55-1.30); POTASSIUM 3.4 MMOL/L (3.5-5.1); SODIUM 140 MMOL/L (136-145)
[2019-01-17 10:29] LABS: ALANINE AMINOTRANSFERASE 30 U/L (12-78); ALBUMIN 3.8 G/DL (3.4-5.0); ALKALINE PHOSPHATASE 99 U/L (46-116); ASPARTATE AMINO TRANSFERASE 13 U/L (15-37); BILIRUBIN,TOTAL 0.3 MG/DL (0.2-1.0)
[2019-01-17] MEDS ORDERED: UNOBMED (10:38)
[2019-01-17] MEDS ORDERED: Nitroglycerin Subl 0.4mg tab SL PRN (10:45)
[2019-01-17] MEDS ORDERED: LORazepam Inj 2mg/ml 1ml IV PRN (10:45)
[2019-01-17] MEDS ORDERED: Morphine Sulfate 2mg/ml Inj(IV/IM USE ONLY) IVP PRN (10:45)
[2019-01-17] MEDS ORDERED: Promethazine/Codeine 5ml UD ORAL PRN (10:45)
--- NOTE | 2019-01-17 11:02 | Diagnostic Imaging Report ---
INDICATION: Knee Pain COMPARISON: None 3 views of the left knee were obtained. FINDINGS: No acute fracture, malalignment, or joint effusion are identified. Joint space is relatively well-maintained. Impression: Negative for acute injury
--- NOTE | 2019-01-17 11:05 | Diagnostic Imaging Report ---
Indication: Dyspnea Comparison: None A single view chest radiograph was obtained. Findings: Interstitium of the lung is prominent. Vascularity is prominent. The lungs are hyperinflated. There is suggestion of scarring in the apex of the left lung. The heart is enlarged. There is a hiatal hernia. Aorta is calcified. IMPRESSION: Mild CHF may be present. Correlate clinically COPD
[2019-01-17] MEDS: Solu-MEDROL 125mg Inj IV SCH ×3 (12:00→23:22)
--- NOTE | 2019-01-17 13:01 | Consultation ---
History of Present Illness General Date patient seen: January 17, 2019 Chief Complaint: Dyspnea/Respdistress Present Illness HPI 84-year-old female with history of HTN, asthma, CVA/TIA presents to ED for evaluation for shortness of breath. Patient states she feels a little better but still feels very short of breath. States she's been using her inhaler at home without significant relief. she has persistent cough. Denies chest pain. she received one dose of solumedrol in ER and admitted for further management. Allergies: Uncoded Allergies: Canned Food (Allergy, Unknown, 03/22/18) Nausea/Vomitting/Indigestion Medication History Scheduled Albuterol Sulfate (Ventolin Hfa), 1 PUFF INH EVERY 6 HOURS Amlodipine Besylate* (Amlodipine Besylate*), 5 MG ORAL DAILY, (Reported) Atorvastatin (Lipitor), 40 MG ORAL DAILY, (Reported) Baclofen* (Baclofen*), 10 MG ORAL DAILY, (Reported) Clopidogrel* (Clopidogrel*), 75 MG ORAL DAILY, (Reported) Dexlansoprazole (Dexilant), 60 MG ORAL DAILY, (Reported) Isosorbide Dinitrate* (Isordil*), 30 MG ORAL DAILY, (Reported) Levocetirizine Dihydrochloride (Levocetirizine Dihydrochloride), 5 MG ORAL DAILY , (Reported) Levofloxacin (Levofloxacin*), 500 MG ORAL DAILY, (Reported) Lidocaine (Xylocaine-Mpf 1% Vial), 10 ML INJ Q8HR, (Reported) Losartan/Hydrochlorothiazide (Losartan-Hctz 100-12.5 Mg Tab), 1 TAB ORAL DAILY, (Reported) Methylprednisolone (Methylprednisolone*), 4 MG ORAL DIRECTED Montelukast Sodium* (Montelukast Sodium*), 10 MG ORAL DAILY, (Reported) Phenytoin Sodium Extended* (Phenytoin Sodium Extended*), 100 MG ORAL BID, ( Reported) Pregabalin (Lyrica), 50 MG ORAL DAILY, (Reported) [Levofloxacin 250mg], 250 MG ORAL DAILY Miscellaneous Medications Unable to Obtain Medications (Unable To Obtain Meds), (Reported) [Bevespi], (Reported) Patient History Healthcare decision maker Resuscitation status Advanced Directive on File Past Medical/Surgical History Past Medical/Surgical History: (1) Allergic asthma (2) Vascular dementia (3) Cerebral vascular disease (4) Seizure disorder (5) CAD (coronary artery disease) (6) HTN (hypertension) Review of Systems All Other Systems: negative except mentioned in HPI Physical Exam General Appearance: WD/WN Lines, tubes and drains: peripheral HEENT: normocephalic, atraumatic Neck: non-tender, normal alignment Respiratory/Chest: chest wall non-tender, accessory muscle use, expiratory wheezing, inspiratory wheezing Cardiovascular/Chest: normal peripheral pulses, normal rate, regular rhythm Abdomen: normal bowel sounds, non tender Genitourinary/Rectal: normal genital exam, normal rectal exam Extremities: normal range of motion, non-tender Last 24 Hour Vital Signs Date Time Temp Pulse Resp B/P (MAP) Pulse Ox O2 Delivery O2 Flow Rate FiO2 01/17/19 10:51 101 20 100 Room Air 21 01/17/19 10:11 102 20 98 Room Air 21 01/17/19 10:08 104 20 100 Room Air 01/17/19 09:43 98 20 97 Room Air 21 01/17/19 09:39 95 20 97 Room Air 21 01/17/19 09:21 93 18 94 Room Air 21 01/17/19 09:21 96 18 Room Air 21 01/17/19 09:10 98.4 90 34 125/72 95 Room Air 01/17/19 09:10 90 34 Room Air 01/17/19 09:07 98.2 89 16 98 Room Air Laboratory Tests Test 01/17/19 09:25 White Blood Count 10.0 K/UL (4.8-10.8) Red Blood Count 4.64 M/UL (4.20-5.40) Hemoglobin 14.1 G/DL (12.0-16.0) Hematocrit 41.6 % (37.0-47.0) Mean Corpuscular Volume 90 FL (80-99) Mean Corpuscular Hemoglobin 30.3 PG (27.0-31.0) Mean Corpuscular Hemoglobin Concent 33.8 G/DL (32.0-36.0) Red Cell Distribution Width 13.3 % (11.6-14.8) Platelet Count 246 K/UL (150-450) Mean Platelet Volume 7.1 FL (6.5-10.1) Neutrophils (%) (Auto) 68.9 % (45.0-75.0) Lymphocytes (%) (Auto) 21.3 % (20.0-45.0) Monocytes (%) (Auto) 7.0 % (1.0-10.0) Eosinophils (%) (Auto) 2.3 % (0.0-3.0) Basophils (%) (Auto) 0.5 % (0.0-2.0) Sodium Level 140 MMOL/L (136-145) Potassium Level 3.4 MMOL/L (3.5-5.1) L Chloride Level 101 MMOL/L (98-107) Carbon Dioxide Level 30 MMOL/L (21-32) Anion Gap 9 mmol/L (5-15) Blood Urea Nitrogen 18 mg/dL (7-18) Creatinine 0.6 MG/DL (0.55-1.30) Estimat Glomerular Filtration Rate mL/min (>60) Glucose Level 102 MG/DL (74-106) Calcium Level 9.2 MG/DL (8.5-10.1) Total Bilirubin 0.3 MG/DL (0.2-1.0) Aspartate Amino Transf (AST/SGOT) 13 U/L (15-37) L Alanine Aminotransferase (ALT/SGPT) 30 U/L (12-78) Alkaline Phosphatase 99 U/L (46-116) Troponin I 0.000 ng/mL (0.000-0.056) Pro-B-Type Natriuretic Peptide 52 pg/mL (0-125) Total Protein 7.6 G/DL (6.4-8.2) Albumin 3.8 G/DL (3.4-5.0) Globulin 3.8 g/dL Albumin/Globulin Ratio 1.0 (1.0-2.7) Height (Feet): 5 Height (Inches): 2.00 Weight (Pounds): 160 Medications Current Medications Medications (Trade) Dose Ordered Sig/Mecca Route PRN Reason Start Time Stop Time Status Last Admin Dose Admin Albuterol/ Ipratropium (Albuterol/ Ipratropium) 3 ml Q4H PRN HHN dyspnea 01/17/19 10:45 01/22/19 10:44 Amlodipine Besylate (Norvasc) 5 mg DAILY ORAL 01/18/19 09:00 02/17/19 08:59 Baclofen (Lioresal) 10 mg DAILY ORAL 01/18/19 09:00 02/17/19 08:59 Clopidogrel Bisulfate (Plavix) 75 mg DAILY ORAL 01/18/19 09:00 02/17/19 08:59 Dextrose (Dextrose 50%) 25 ml Q30M PRN IV Hypoglycemia 01/17/19 10:45 02/16/19 10:44 Dextrose (Dextrose 50%) 50 ml Q30M PRN IV Hypoglycemia 01/17/19 10:45 02/16/19 10:44 Heparin Sodium (Porcine) (Heparin 5000 units/ml) 5,000 units EVERY 12 HOURS SUBQ 01/17/19 21:00 02/16/19 20:59 Lorazepam (Ativan 2mg/ml 1ml) 0.5 mg Q4H PRN IV For Anxiety 01/17/19 10:45 01/24/19 10:44 Methylprednisolone Sodium Succinate (Solu-MEDROL) 60 mg EVERY 6 HOURS IV 01/17/19 12:00 02/16/19 11:59 Montelukast Sodium (Singulair) 10 mg DAILY ORAL 01/18/19 09:00 02/17/19 08:59 Morphine Sulfate (Morphine Sulfate) 2 mg Q4H PRN IVP severe pain 7-10 01/17/19 10:45 01/24/19 10:44 Nitroglycerin (Ntg) 0.4 mg Q5M X 3 DOSES PRN SL Prn Chest Pain 01/17/19 10:45 02/16/19 10:44 Ondansetron HCl (Zofran) 4 mg Q6H PRN IVP Nausea & Vomiting 01/17/19 10:45 02/16/19 10:44 Phenytoin (Dilantin) 100 mg Q12HR ORAL 01/17/19 21:00 02/16/19 20:59 Piperacillin Sod/ Tazobactam Sod 3.375 gm/Dextrose 110 ml @ 27.5 mls/hr EVERY 8 HOURS IVPB 01/17/19 14:00 01/24/19 13:59 Pregabalin (Lyrica) 50 mg DAILY ORAL 01/18/19 09:00 02/17/19 08:59 Promethazine HCl/ Codeine (Phenergan with Codeine) 5 ml Q6H PRN ORAL cough 01/17/19 10:45 02/16/19 10:44 Temazepam (Restoril) 15 mg HSPRN PRN ORAL Insomnia 01/17/19 10:45 01/24/19 10:44 Theophylline (Fabrice-Dur) 100 mg EVERY 12 HOURS ORAL 01/17/19 21:00 02/16/19 20:59 Assessment/Plan Problem List: (1) Acute respiratory failure ICD Codes: J96.00 - Acute respiratory failure, unspecified whether with hypoxia or hypercapnia SNOMED: 19636266 (2) Acute asthma exacerbation ICD Codes: J45.901 - Unspecified asthma with (acute) exacerbation SNOMED: 040278317 (3) HTN (hypertension) ICD Codes: I10 - Essential (primary) hypertension SNOMED: 54995112 (4) GERD (gastroesophageal reflux disease) ICD Codes: K21.9 - Gastro-esophageal reflux disease without esophagitis SNOMED: 826153923 (5) Cerebral vascular disease ICD Codes: I67.9 - Cerebrovascular disease, unspecified SNOMED: 97958689 (6) CAD (coronary artery disease) ICD Codes: I25.10 - Atherosclerotic heart disease of [place] coronary artery without angina pectoris SNOMED: 45187928 Assessment/Plan: respiratory treatment high dose steroids with rapid taper check sputum antitussives iv abx monitor BP dvt prophylaxis. Luis A Juares MD January 17, 2019 13:01
[2019-01-17] MEDS: Piperacillin/Tazobactam 3.375 GM in D5W 110 ML IVPB SCH ×2 (15:20→21:33)
--- NOTE | 2019-01-17 18:10 | History & Physical ---
History and Physical History & Physicial Dictated for Int Med-Dr Garcia no. [id number]. Hank Toure MD January 17, 2019 18:10
[2019-01-17 20:00] VITALS: BP 129/59
[2019-01-17] MEDS: Phenytoin 100mg cap ORAL SCH (21:33)
[2019-01-17] MEDS: Theophylline ER 100mg ORAL SCH (21:33)
[2019-01-17] MEDS: Heparin 5000 units/ml inj SUBQ SCH (21:39)
[2019-01-18] VITALS: BP 109/51
--- NOTE | 2019-01-18 01:16 | History and Physical Report ---
DATE OF ADMISSION: 01/17/2019 CHIEF COMPLAINT: The patient is an 84-year-old [place] female, who presents with a chief complaint of cough and shortness of breath. HISTORY OF PRESENT ILLNESS: The patient was admitted to [facility] from 12/04/2018 to 12/05/2018. Please see history and physical and discharge summary dictated at that time. The patient has a history of asthma. The patient began to experience a nonproductive cough several days ago. The patient then began to develop shortness of breath on 01/16/2019. The patient tried home nebulizer treatments without relief. The patient presented to [place] emergency room. The patient is admitted for shortness of breath to rule out acute asthma exacerbation. REVIEW OF SYSTEMS: CONSTITUTIONAL: The patient denies weight loss or weight gain. The patient denies fever or chills. HEENT: The patient denies ear or throat pain. The patient denies headache. CARDIOVASCULAR: The patient denies palpitations or chest pain. CHEST: The patient complains of shortness of breath as above. The patient complains of nonproductive cough. The patient denies wheezes. ABDOMEN: The patient denies nausea, vomiting, diarrhea, or constipation. GENITOURINARY: The patient denies dysuria or increased frequency of urination. NEUROMUSCULAR: The patient denies seizures or generalized weakness. PAST MEDICAL HISTORY: Significant for, 1. Asthma. 2. History of hemorrhagic cerebrovascular accident. 3. Hypertension. 4. Hypercholesterolemia. 5. Gastroesophageal reflux disease. 6. Seizure disorder. 7. Coronary artery disease, status post stent placement in November of 2017. PAST SURGICAL HISTORY: Significant for, 1. Appendectomy. 2. Cardiac catheterization in November of 2017 with stent placement. CURRENT MEDICATIONS: 1. Albuterol metered-dose inhaler two puffs p.o. q.i.d. p.r.n. 2. Amlodipine 5 mg p.o. daily. 3. Atorvastatin 40 mg p.o. daily. 4. Baclofen 10 mg p.o. 3 times daily p.r.n.. 5. Clopidogrel 75 mg p.o. daily. 6. Dexilant 60 mg p.o. daily. 7. Isosorbide dinitrate 30 mg p.o. daily. 8. Xyzal 5 mg p.o. daily. 9. Losartan/hydrochlorothiazide 100/12.5 one tab p.o. daily. 10. Singulair 10 mg p.o. daily. 11. Phenytoin 100 mg p.o. twice daily. 12. Lyrica 50 mg p.o. daily. ALLERGIES: Vancomycin. SOCIAL HISTORY: The patient is single and lives alone. The patient denies tobacco or alcohol use. PHYSICAL EXAMINATION: VITAL SIGNS: Temperature 98.4, respirations 34, pulse 90, blood pressure 125/72, and oxygen saturation 95% on room air. GENERAL: The patient is well-developed and well-nourished female, in no apparent distress. HEENT: Eyes, pupils are equal and responsive to light and accommodation. Extraocular movements are intact. NECK: Supple without lymphadenopathy. CHEST: Lungs are clear to auscultation bilaterally without wheezes or rales. CARDIOVASCULAR: Regular rhythm and rate. S1 and S2 are normal without murmurs, rubs, or gallops. ABDOMEN: Soft, nontender, and nondistended. Positive bowel sounds. No evidence of hepatosplenomegaly. Currently, no rebound or guarding noted. EXTREMITIES: Negative for clubbing, cyanosis, or edema. RECTAL/GENITAL: Refused. NEUROLOGIC: Cranial nerves II through XII are grossly intact without focal deficits. Motor strength is 5/5 bilaterally. Deep tendon reflexes are 2+ plantar. IMAGING: Chest x-ray revealed prominent vascularity of the lungs consistent with congestive heart failure. LABORATORY STUDIES: WBC 10.0, hemoglobin 14.1, hematocrit 41.6, and platelets 246,000. Sodium 140, potassium 3.4, chloride 101, CO2 30, BUN 18, creatinine 0.6, and glucose 102. Troponin 0.0. ASSESSMENT: This is an 84-year-old female. 1. Shortness of breath. 2. Cough. 3. Acute exacerbation of asthma. 4. History of cerebrovascular accident. 5. Hypertension. 6. Hypercholesterolemia. 7. Gastroesophageal reflux disease. 8. Seizure disorder. 9. Coronary artery disease. TREATMENT: 1. Cough/shortness of breath/asthma. A Pulmonary consultation has been obtained with Dr. Luis A Juares. The patient has been placed empirically on Zosyn. The patient is also on intravenous Solu-Medrol. The patient is receiving DuoNeb every 4 hours p.r.n. 2. Hypertension. Continue amlodipine as above. 3. Hypercholesterolemia. Continue atorvastatin as above. 4. Gastroesophageal reflux disease. The patient has been continued on Protonix. 5. Seizure disorder. Continue Dilantin and Lyrica as above. 6. Coronary artery disease. Continue Plavix as above. Hank Toure M.D. DR: YAO JOB#: [id number] CC:
[2019-01-18] MEDS: Albuterol/Ipratropium 3ml neb HHN PRN ×2 (02:45→14:29)
[2019-01-18 03:58] VITALS: BP 152/81
[2019-01-18] MEDS: Piperacillin/Tazobactam 3.375 GM in D5W 110 ML IVPB SCH ×3 (06:12→22:00)
[2019-01-18] MEDS: Solu-MEDROL 125mg Inj IV SCH ×3 (06:16→19:11)
[2019-01-18 07:56] VITALS: BP 162/91
[2019-01-18] MEDS: Phenytoin 100mg cap ORAL SCH ×2 (08:15→20:07)
[2019-01-18] MEDS: Theophylline ER 100mg ORAL SCH ×2 (08:15→20:07)
[2019-01-18] MEDS: Heparin 5000 units/ml inj SUBQ SCH ×2 (08:18→20:07)
[2019-01-18] MEDS ORDERED: Lyrica 50mg cap ORAL SCH (09:00)
[2019-01-18] MEDS ORDERED: Montelukast 10mg tablet ORAL SCH (09:00)
--- NOTE | 2019-01-18 10:57 | Internal Med Progress Note ---
Subjective Physician Name Shlomo Garcia Attending Physician Shlomo Garcia MD Current Medications Medications (Trade) Dose Ordered Sig/Mecca Route PRN Reason Start Time Stop Time Status Last Admin Dose Admin Albuterol/ Ipratropium (Albuterol/ Ipratropium) 3 ml Q4H PRN HHN dyspnea 01/17/19 10:45 01/22/19 10:44 01/18/19 02:45 Amlodipine Besylate (Norvasc) 5 mg DAILY ORAL 01/18/19 09:00 02/17/19 08:59 01/18/19 08:15 Baclofen (Lioresal) 10 mg DAILY ORAL 01/18/19 09:00 02/17/19 08:59 01/18/19 08:14 Clopidogrel Bisulfate (Plavix) 75 mg DAILY ORAL 01/18/19 09:00 02/17/19 08:59 01/18/19 08:14 Dextrose (Dextrose 50%) 25 ml Q30M PRN IV Hypoglycemia 01/17/19 10:45 02/16/19 10:44 Dextrose (Dextrose 50%) 50 ml Q30M PRN IV Hypoglycemia 01/17/19 10:45 02/16/19 10:44 Heparin Sodium (Porcine) (Heparin 5000 units/ml) 5,000 units EVERY 12 HOURS SUBQ 01/17/19 21:00 02/16/19 20:59 01/18/19 08:18 Lorazepam (Ativan 2mg/ml 1ml) 0.5 mg Q4H PRN IV For Anxiety 01/17/19 10:45 01/24/19 10:44 Methylprednisolone Sodium Succinate (Solu-MEDROL) 60 mg EVERY 6 HOURS IV 01/17/19 12:00 02/16/19 11:59 01/18/19 06:16 Montelukast Sodium (Singulair) 10 mg DAILY ORAL 01/18/19 09:00 02/17/19 08:59 01/18/19 08:15 Morphine Sulfate (Morphine Sulfate) 2 mg Q4H PRN IVP severe pain 7-10 01/17/19 10:45 01/24/19 10:44 Nitroglycerin (Ntg) 0.4 mg Q5M X 3 DOSES PRN SL Prn Chest Pain 01/17/19 10:45 02/16/19 10:44 Ondansetron HCl (Zofran) 4 mg Q6H PRN IVP Nausea & Vomiting 01/17/19 10:45 02/16/19 10:44 Phenytoin (Dilantin) 100 mg Q12HR ORAL 01/17/19 21:00 02/16/19 20:59 01/18/19 08:15 Piperacillin Sod/ Tazobactam Sod 3.375 gm/Dextrose 110 ml @ 27.5 mls/hr EVERY 8 HOURS IVPB 01/17/19 14:00 01/24/19 13:59 01/18/19 06:12 Pregabalin (Lyrica) 50 mg DAILY ORAL 01/18/19 09:00 02/17/19 08:59 01/18/19 08:14 Promethazine HCl/ Codeine (Phenergan with Codeine) 5 ml Q6H PRN ORAL cough 01/17/19 10:45 02/16/19 10:44 Temazepam (Restoril) 15 mg HSPRN PRN ORAL Insomnia 01/17/19 10:45 01/24/19 10:44 Theophylline (Fabrice-Dur) 100 mg EVERY 12 HOURS ORAL 01/17/19 21:00 02/16/19 20:59 01/18/19 08:15 Allergies: Uncoded Allergies: Canned Food (Allergy, Unknown, 03/22/18) Nausea/Vomitting/Indigestion Subjective awake, alert, responsive, No CP, less SOB Objective Last Vital Signs Date Time Temp Pulse Resp B/P (MAP) Pulse Ox O2 Delivery O2 Flow Rate FiO2 01/18/19 09:11 97 Nasal Cannula 2.0 28 01/18/19 09:10 91 20 01/18/19 08:15 162/91 01/18/19 07:56 98.6 Intake and Output 01/17/19 01/18/19 18:59 06:59 Intake Total 240 ml Balance 240 ml Intake Oral 240 ml # Voids 3 3 Objective General: No acute distress, awake and alert HEENT: NCAT, sclera anicteric, PERRL, EOMI. Neck: Supple, no significant jugular venous distention, Lungs: Good inspiratory effort, decrease air at bases, no Wheeze or Rales. Heart: Regular rate and rhythm, normal S1/S2, no murmurs Abdomen: soft, nontender, nondistended. Normoactive bowel sounds. Extremities: No Cyanosis , clubbing or edema. Neuro: A&O x 3, Able to move all extremities Skin: warm, no rashes or lesions Psych: Normal mood and affect Assessment/Plan Assessment/Plan ASSESSMENT: This is an 84-year-old female. 1. Shortness of breath. 2. Cough. 3. Acute exacerbation of asthma. 4. History of cerebrovascular accident. 5. Hypertension. 6. Hypercholesterolemia. 7. Gastroesophageal reflux disease. 8. Seizure disorder. 9. Coronary artery disease. TREATMENT: 1. Cough/shortness of breath/asthma. A Pulmonary consultation has been obtained with Dr. Luis A Juares. The patient has been placed empirically on Zosyn. The patient is also on intravenous Solu-Medrol. The patient is receiving DuoNeb every 4 hours p.r.n. 2. Hypertension. Continue amlodipine as above. 3. Hypercholesterolemia. Continue atorvastatin as above. 4. Gastroesophageal reflux disease. The patient has been continued on Protonix. 5. Seizure disorder. Continue Dilantin and Lyrica as above. 6. Coronary artery disease. Continue Plavix as above. DC Telemetry, transfer to Med / surg Shlomo Garcia MD January 18, 2019 10:57
[2019-01-18 11:49] VITALS: BP 150/78
--- NOTE | 2019-01-18 12:07 | Pulmonology Progress Note ---
Assessment/Plan Problems: (1) Acute respiratory failure (2) Acute asthma exacerbation (3) HTN (hypertension) (4) GERD (gastroesophageal reflux disease) (5) Cerebral vascular disease (6) CAD (coronary artery disease) Assessment/Plan slightly better respiratory treatment high dose steroids with rapid taper check sputum antitussives iv abx monitor BP dvt prophylaxis. med/surg Subjective Constitutional: Reports: no symptoms HEENT: Repors: no symptoms Respiratory: Reports: no symptoms Allergies: Uncoded Allergies: Canned Food (Allergy, Unknown, 03/22/18) Nausea/Vomitting/Indigestion Objective Last 24 Hour Vital Signs Date Time Temp Pulse Resp B/P (MAP) Pulse Ox O2 Delivery O2 Flow Rate FiO2 01/18/19 11:49 98.3 89 18 150/78 (102) 94 01/18/19 09:11 97 Nasal Cannula 2.0 28 01/18/19 09:11 Nasal Cannula 2.0 28 01/18/19 09:10 91 20 Nasal Cannula 2.0 28 01/18/19 09:00 Room Air Room Air 01/18/19 08:15 96 162/91 01/18/19 08:00 87 01/18/19 07:56 98.6 96 18 162/91 (114) 94 01/18/19 04:00 84 01/18/19 03:58 98.6 84 20 152/81 (104) 100 01/18/19 02:51 82 20 100 Room Air 21 01/18/19 02:40 84 20 98 Room Air 21 01/18/19 00:00 97.8 85 20 109/51 (70) 100 01/18/19 00:00 86 01/17/19 21:52 89 20 Room Air 21 01/17/19 21:00 Room Air Room Air 01/17/19 20:00 95 01/17/19 20:00 98.9 89 20 129/59 (82) 98 01/17/19 15:17 88 01/17/19 12:19 103 Intake and Output 01/17/19 01/18/19 18:59 06:59 Intake Total 240 ml Balance 240 ml Intake Oral 240 ml # Voids 3 3 General Appearance: WD/WN HEENT: normocephalic, atraumatic Respiratory/Chest: chest wall non-tender, crackles/rales Cardiovascular: normal peripheral pulses, normal rate Abdomen: normal bowel sounds, soft, non tender Extremities: no cyanosis Skin: no lesions Neurologic/Psychiatric: diamond sizer and grader II-XII grossly normal Current Medications Medications (Trade) Dose Ordered Sig/Mecca Route PRN Reason Start Time Stop Time Status Last Admin Dose Admin Albuterol/ Ipratropium (Albuterol/ Ipratropium) 3 ml Q4H PRN HHN dyspnea 01/17/19 10:45 01/22/19 10:44 01/18/19 02:45 Amlodipine Besylate (Norvasc) 5 mg DAILY ORAL 01/18/19 09:00 02/17/19 08:59 01/18/19 08:15 Baclofen (Lioresal) 10 mg DAILY ORAL 01/18/19 09:00 02/17/19 08:59 01/18/19 08:14 Clopidogrel Bisulfate (Plavix) 75 mg DAILY ORAL 01/18/19 09:00 02/17/19 08:59 01/18/19 08:14 Dextrose (Dextrose 50%) 25 ml Q30M PRN IV Hypoglycemia 01/17/19 10:45 02/16/19 10:44 Dextrose (Dextrose 50%) 50 ml Q30M PRN IV Hypoglycemia 01/17/19 10:45 02/16/19 10:44 Heparin Sodium (Porcine) (Heparin 5000 units/ml) 5,000 units EVERY 12 HOURS SUBQ 01/17/19 21:00 02/16/19 20:59 01/18/19 08:18 Lorazepam (Ativan 2mg/ml 1ml) 0.5 mg Q4H PRN IV For Anxiety 01/17/19 10:45 01/24/19 10:44 Methylprednisolone Sodium Succinate (Solu-MEDROL) 60 mg EVERY 6 HOURS IV 01/17/19 12:00 02/16/19 11:59 01/18/19 11:39 Montelukast Sodium (Singulair) 10 mg DAILY ORAL 01/18/19 09:00 02/17/19 08:59 01/18/19 08:15 Morphine Sulfate (Morphine Sulfate) 2 mg Q4H PRN IVP severe pain 7-10 01/17/19 10:45 01/24/19 10:44 Nitroglycerin (Ntg) 0.4 mg Q5M X 3 DOSES PRN SL Prn Chest Pain 01/17/19 10:45 02/16/19 10:44 Ondansetron HCl (Zofran) 4 mg Q6H PRN IVP Nausea & Vomiting 01/17/19 10:45 02/16/19 10:44 Phenytoin (Dilantin) 100 mg Q12HR ORAL 01/17/19 21:00 02/16/19 20:59 01/18/19 08:15 Piperacillin Sod/ Tazobactam Sod 3.375 gm/Dextrose 110 ml @ 27.5 mls/hr EVERY 8 HOURS IVPB 01/17/19 14:00 01/24/19 13:59 01/18/19 06:12 Pregabalin (Lyrica) 50 mg DAILY ORAL 01/18/19 09:00 02/17/19 08:59 01/18/19 08:14 Promethazine HCl/ Codeine (Phenergan with Codeine) 5 ml Q6H PRN ORAL cough 01/17/19 10:45 02/16/19 10:44 Temazepam (Restoril) 15 mg HSPRN PRN ORAL Insomnia 01/17/19 10:45 01/24/19 10:44 Theophylline (Fabrice-Dur) 100 mg EVERY 12 HOURS ORAL 01/17/19 21:00 02/16/19 20:59 01/18/19 08:15 Luis A Juares MD January 18, 2019 12:06
[2019-01-18 15:38] VITALS: BP 147/74
[2019-01-18] MEDS ORDERED: Nitroglycerin Subl 0.4mg tab SL PRN (16:45)
[2019-01-18] MEDS ORDERED: LORazepam Inj 2mg/ml 1ml IV PRN (17:00)
[2019-01-18] MEDS ORDERED: Promethazine/Codeine 5ml UD ORAL PRN (17:00)
[2019-01-18] MEDS ORDERED: Albuterol/Ipratropium 3ml neb HHN PRN (18:45)
[2019-01-18] MEDS ORDERED: Albuterol/Ipratropium 3ml neb HHN SCH (19:00)
[2019-01-18] MEDS: Morphine Sulfate 2mg/ml Inj(IV/IM USE ONLY) IVP PRN (19:31)
[2019-01-18] MEDS: Albuterol/Ipratropium 3ml neb HHN SCH ×2 (19:35→23:00)
[2019-01-18 20:00] VITALS: BP 111/65
[2019-01-19] VITALS: BP 142/76
[2019-01-19] MEDS: Solu-MEDROL 125mg Inj IV SCH ×4 (00:24→22:03)
[2019-01-19] MEDS: Albuterol/Ipratropium 3ml neb HHN SCH ×6 (03:00→23:00)
[2019-01-19 04:00] VITALS: BP 154/78
[2019-01-19] MEDS: Piperacillin/Tazobactam 3.375 GM in D5W 110 ML IVPB SCH ×3 (05:08→22:03)
[2019-01-19 08:00] VITALS: BP 162/103
[2019-01-19] MEDS: Phenytoin 100mg cap ORAL SCH ×2 (08:07→20:19)
[2019-01-19] MEDS: Lyrica 50mg cap ORAL SCH (08:08)
[2019-01-19] MEDS: Theophylline ER 100mg ORAL SCH ×2 (08:08→20:19)
[2019-01-19] MEDS: Montelukast 10mg tablet ORAL SCH (08:09)
[2019-01-19] MEDS: Heparin 5000 units/ml inj SUBQ SCH ×2 (08:19→20:19)
[2019-01-19] MEDS ORDERED: Tubing IV Secondary IV ONE (10:33)
[2019-01-19] MEDS ORDERED: NS 275ml ONE (10:33)
--- NOTE | 2019-01-19 11:47 | Pulmonology Progress Note ---
Assessment/Plan Assessment/Plan ASSESSMENT Acute respiratory failure on admission -resolved Acute asthma exacerbation Cerebrovascular disease with history of CVA Seizure disorder Hypertensive urgency GERD Coronary artery disease PLAN OF CARE MS floor O2 to keep pulse oximetry above 90%. HHN ATC and prn CPT add inhaled steroid/Budesonide bid intravenous steroids with fast tapering down. sputum culture if able. empiric antibiotic. CXR revealed COPD, mild CHF may be present trial of theophylline started antitussive prn continue Singular GI prophylaxis BP management with amlodipine, increase to bid ( HTN urgency possibly due to steroids, monitor closely), holding parameters recent ECHO in December 2018 with pEF, no evidence of pulm HTN check lipid panel and HgA1c in am a/PLT therapy with Plavix seizure precaution , continue Dilantin bowel regimen supportive care case discussed and evaluated by supervising physician Subjective Allergies: Uncoded Allergies: Canned Food (Allergy, Unknown, 03/22/18) Nausea/Vomitting/Indigestion Subjective wheezing, no resp distress coughing BP elevated Objective Last 24 Hour Vital Signs Date Time Temp Pulse Resp B/P (MAP) Pulse Ox O2 Delivery O2 Flow Rate FiO2 01/19/19 10:58 87 18 99 Room Air 21 01/19/19 10:51 36 01/19/19 10:51 87 16 95 Room Air 21 01/19/19 09:00 Room Air Room Air 01/19/19 08:09 92 162/103 01/19/19 08:00 98.5 92 17 162/103 (122) 92 01/19/19 06:52 90 18 98 Room Air 21 01/19/19 06:50 86 18 Room Air 21 01/19/19 06:50 Room Air 21 01/19/19 06:50 96 Room Air 21 01/19/19 06:44 86 18 96 Room Air 21 01/19/19 06:44 36 01/19/19 04:00 97.8 70 20 154/78 (103) 96 01/19/19 03:06 Nasal Cannula 2.0 28 01/19/19 03:06 Nasal Cannula 2.0 28 01/19/19 00:00 97.8 83 20 142/76 (98) 96 01/18/19 23:10 Nasal Cannula 2.0 28 01/18/19 23:09 Nasal Cannula 2.0 28 01/18/19 21:00 Room Air Room Air 01/18/19 19:33 92 20 99 Room Air 21 01/18/19 19:24 Nasal Cannula 2.0 28 01/18/19 19:24 94 20 94 Room Air 21 01/18/19 19:23 94 Room Air 21 01/18/19 19:21 94 20 Room Air 01/18/19 16:00 96 01/18/19 15:38 98.8 94 18 147/74 (98) 96 01/18/19 14:47 102 20 100 Nasal Cannula 2.0 28 01/18/19 14:30 100 22 98 Nasal Cannula 2.0 28 01/18/19 12:00 86 01/18/19 11:49 98.3 89 18 150/78 (102) 94 Intake and Output 01/18/19 01/19/19 18:59 06:59 Intake Total 962.0 ml 350 ml Balance 962.0 ml 350 ml Intake Oral 797 ml 350 ml IV Total 165.0 ml # Voids 3 2 General Appearance: no acute distress, other - awake, alert, elderly female HEENT: normocephalic, atraumatic, anicteric, mucous membranes moist, PERRL Respiratory/Chest: expiratory wheezing - diffused exp wheezes Cardiovascular: normal peripheral pulses, normal rate, no JVD Abdomen: soft, non tender, non distended Extremities: no edema, pedal pulses normal Neurologic/Psychiatric: alert, responsive Musculoskeletal: atrophy - BLE Current Medications Medications (Trade) Dose Ordered Sig/Mecca Route PRN Reason Start Time Stop Time Status Last Admin Dose Admin Albuterol/ Ipratropium (Albuterol/ Ipratropium) 3 ml Q4H PRN N dyspnea 01/18/19 18:45 01/22/19 10:44 Albuterol/ Ipratropium (Albuterol/ Ipratropium) 3 ml Q4HRT HHN 01/18/19 19:00 01/23/19 18:59 01/19/19 10:58 Amlodipine Besylate (Norvasc) 5 mg DAILY ORAL 01/19/19 09:00 02/17/19 08:59 01/19/19 08:09 Baclofen (Lioresal) 10 mg DAILY ORAL 01/19/19 09:00 02/17/19 08:59 01/19/19 08:07 Clopidogrel Bisulfate (Plavix) 75 mg DAILY ORAL 01/19/19 09:00 02/17/19 08:59 01/19/19 08:07 Dextrose (Dextrose 50%) 25 ml Q30M PRN IV Hypoglycemia 01/18/19 16:45 02/16/19 10:44 Dextrose (Dextrose 50%) 50 ml Q30M PRN IV Hypoglycemia 01/18/19 16:45 02/16/19 10:44 Heparin Sodium (Porcine) (Heparin 5000 units/ml) 5,000 units EVERY 12 HOURS SUBQ 01/18/19 21:00 02/16/19 20:59 01/19/19 08:19 Lorazepam (Ativan 2mg/ml 1ml) 0.5 mg Q4H PRN IV For Anxiety 01/18/19 17:00 01/24/19 16:59 Methylprednisolone Sodium Succinate (Solu-MEDROL) 60 mg EVERY 6 HOURS IV 01/18/19 18:00 02/16/19 11:59 01/19/19 05:08 Montelukast Sodium (Singulair) 10 mg DAILY ORAL 01/19/19 09:00 02/17/19 08:59 01/19/19 08:09 Morphine Sulfate (Morphine Sulfate) 2 mg Q4H PRN IVP severe pain 7-10 01/18/19 17:00 01/24/19 16:59 01/18/19 19:31 Nitroglycerin (Ntg) 0.4 mg Q5M X 3 DOSES PRN SL Prn Chest Pain 01/18/19 16:45 02/16/19 10:44 Ondansetron HCl (Zofran) 4 mg Q6H PRN IVP Nausea & Vomiting 01/18/19 16:45 02/16/19 10:44 Phenytoin (Dilantin) 100 mg Q12HR ORAL 01/18/19 21:00 02/16/19 20:59 01/19/19 08:07 Piperacillin Sod/ Tazobactam Sod 3.375 gm/Dextrose 110 ml @ 27.5 mls/hr EVERY 8 HOURS IVPB 01/18/19 22:00 01/24/19 13:59 01/19/19 05:08 Pregabalin (Lyrica) 50 mg DAILY ORAL 01/19/19 09:00 02/17/19 08:59 5/18/19 08:08 Promethazine HCl/ Codeine (Phenergan with Codeine) 5 ml Q6H PRN ORAL cough 01/18/19 17:00 02/16/19 16:59 Temazepam (Restoril) 15 mg HSPRN PRN ORAL Insomnia 01/18/19 17:00 01/25/19 16:59 Theophylline (Fabrice-Dur) 100 mg EVERY 12 HOURS ORAL 01/18/19 21:00 02/16/19 20:59 01/19/19 08:08 Jessica Landry NP January 19, 2019 11:47
[2019-01-19 12:00] VITALS: BP 150/74
[2019-01-19] MEDS: Morphine Sulfate 2mg/ml Inj(IV/IM USE ONLY) IVP PRN ×3 (13:08→23:50)
--- NOTE | 2019-01-19 15:38 | Internal Med Progress Note ---
Subjective Date of Service: January 19, 2019 Physician Name Hank Toure Attending Physician Shlomo Garcia MD Current Medications Medications (Trade) Dose Ordered Sig/Mecca Route PRN Reason Start Time Stop Time Status Last Admin Dose Admin Albuterol/ Ipratropium (Albuterol/ Ipratropium) 3 ml Q4H PRN HHN dyspnea 01/18/19 18:45 01/22/19 10:44 Albuterol/ Ipratropium (Albuterol/ Ipratropium) 3 ml Q4HRT HHN 01/18/19 19:00 01/23/19 18:59 01/19/19 15:35 Amlodipine Besylate (Norvasc) 5 mg BID ORAL 01/19/19 18:00 02/17/19 08:59 Baclofen (Lioresal) 10 mg DAILY ORAL 01/19/19 09:00 02/17/19 08:59 01/19/19 08:07 Budesonide (Pulmicort) 0.25 mg EVERY 12 HOURS HHN 01/19/19 21:00 02/18/19 20:59 Clopidogrel Bisulfate (Plavix) 75 mg DAILY ORAL 01/19/19 09:00 02/17/19 08:59 01/19/19 08:07 Dextrose (Dextrose 50%) 25 ml Q30M PRN IV Hypoglycemia 01/18/19 16:45 02/16/19 10:44 Dextrose (Dextrose 50%) 50 ml Q30M PRN IV Hypoglycemia 01/18/19 16:45 02/16/19 10:44 Famotidine (Pepcid) 20 mg DAILY ORAL 01/20/19 09:00 02/19/19 08:59 Heparin Sodium (Porcine) (Heparin 5000 units/ml) 5,000 units EVERY 12 HOURS SUBQ 01/18/19 21:00 02/16/19 20:59 01/19/19 08:19 Lorazepam (Ativan 2mg/ml 1ml) 0.5 mg Q4H PRN IV For Anxiety 01/18/19 17:00 01/24/19 16:59 Methylprednisolone Sodium Succinate (Solu-MEDROL) 60 mg EVERY 8 HOURS IV 01/19/19 14:00 02/16/19 11:59 01/19/19 13:08 Montelukast Sodium (Singulair) 10 mg DAILY ORAL 01/19/19 09:00 02/17/19 08:59 01/19/19 08:09 Morphine Sulfate (Morphine Sulfate) 2 mg Q4H PRN IVP severe pain 7-10 01/18/19 17:00 01/24/19 16:59 01/19/19 13:08 Nitroglycerin (Ntg) 0.4 mg Q5M X 3 DOSES PRN SL Prn Chest Pain 01/18/19 16:45 02/16/19 10:44 Ondansetron HCl (Zofran) 4 mg Q6H PRN IVP Nausea & Vomiting 01/18/19 16:45 02/16/19 10:44 Phenytoin (Dilantin) 100 mg Q12HR ORAL 01/18/19 21:00 02/16/19 20:59 01/19/19 08:07 Piperacillin Sod/ Tazobactam Sod 3.375 gm/Dextrose 110 ml @ 27.5 mls/hr EVERY 8 HOURS IVPB 01/18/19 22:00 01/24/19 13:59 01/19/19 14:02 Pregabalin (Lyrica) 50 mg DAILY ORAL 01/19/19 09:00 02/17/19 08:59 01/19/19 08:08 Promethazine HCl/ Codeine (Phenergan with Codeine) 5 ml Q6H PRN ORAL cough 01/18/19 17:00 02/16/19 16:59 Temazepam (Restoril) 15 mg HSPRN PRN ORAL Insomnia 01/18/19 17:00 01/25/19 16:59 Theophylline (Fabrice-Dur) 100 mg EVERY 12 HOURS ORAL 01/18/19 21:00 02/16/19 20:59 01/19/19 08:08 Allergies: Uncoded Allergies: Canned Food (Allergy, Unknown, 03/22/18) Nausea/Vomitting/Indigestion ROS Limited/Unobtainable: No Constitutional: Reports: no symptoms HEENT: Reports: no symptoms Cardiovascular: Reports: no symptoms Respiratory: Reports: cough, shortness of breath Gastrointestinal/Abdominal: Reports: no symptoms Genitourinary: Reports: no symptoms Neurologic/Psychiatric: Reports: no symptoms Subjective 84 YO F admitted with shortness of breath and cough. Now asthma exacerbation and bronchitis. Cover for Int Med-DR Jsoe Objective Last Vital Signs Date Time Temp Pulse Resp B/P (MAP) Pulse Ox O2 Delivery O2 Flow Rate FiO2 01/19/19 15:34 88 18 99 Room Air 21 01/19/19 12:00 97.9 150/74 (99) 01/19/19 03:06 2.0 Intake and Output 01/18/19 01/19/19 18:59 06:59 Intake Total 962.0 ml 350 ml Balance 962.0 ml 350 ml Intake Oral 797 ml 350 ml IV Total 165.0 ml # Voids 3 2 Objective PHYSICAL EXAMINATION: GENERAL: The patient is well-developed and well-nourished female, in no apparent distress. HEENT: Eyes, pupils are equal and responsive to light and accommodation. Extraocular movements are intact. NECK: Supple without lymphadenopathy. CHEST: Lungs are clear to auscultation bilaterally without wheezes or rales. CARDIOVASCULAR: Regular rhythm and rate. S1 and S2 are normal without murmurs, rubs, or gallops. ABDOMEN: Soft, nontender, and nondistended. Positive bowel sounds. No evidence of hepatosplenomegaly. Currently, no rebound or guarding noted. EXTREMITIES: Negative for clubbing, cyanosis, or edema. RECTAL/GENITAL: Refused. NEUROLOGIC: Cranial nerves II through XII are grossly intact without focal deficits. Motor strength is 5/5 bilaterally. Deep tendon reflexes are 2+ plantar. Assessment/Plan Assessment/Plan Assessment/Plan ASSESSMENT: This is an 84-year-old female. 1. Shortness of breath. 2. Cough. 3. Acute exacerbation of asthma. 4. History of cerebrovascular accident. 5. Hypertension. 6. Hypercholesterolemia. 7. Gastroesophageal reflux disease. 8. Seizure disorder. 9. Coronary artery disease. TREATMENT: 1. Cough/shortness of breath/asthma. A Pulmonary consultation has been obtained with Dr. Luis A Juares. The patient has been placed empirically on Zosyn. The patient is also on intravenous Solu-Medrol. The patient is receiving DuoNeb every 4 hours p.r.n. 2. Hypertension. Continue amlodipine as above. 3. Hypercholesterolemia. Continue atorvastatin as above. 4. Gastroesophageal reflux disease. The patient has been continued on Protonix. 5. Seizure disorder. Continue Dilantin and Lyrica as above. 6. Coronary artery disease. Continue Plavix as above. January 18, 2019 10:57 Hank Toure MD January 19, 2019 15:38
[2019-01-19 16:00] VITALS: BP 115/84
[2019-01-19 20:00] VITALS: BP 156/81
[2019-01-19] MEDS: Budesonide HHN 0.25mg/2ml ud HHN SCH (21:00)
[2019-01-20] MEDS: Albuterol/Ipratropium 3ml neb HHN SCH ×6 (02:51→23:00)
[2019-01-20] MEDS: Solu-MEDROL 125mg Inj IV SCH ×2 (05:16→22:00)
[2019-01-20] MEDS: Piperacillin/Tazobactam 3.375 GM in D5W 110 ML IVPB SCH ×3 (05:18→22:00)
[2019-01-20 08:00] VITALS: BP 164/73
[2019-01-20] MEDS: Phenytoin 100mg cap ORAL SCH ×2 (08:43→21:59)
[2019-01-20] MEDS: Theophylline ER 100mg ORAL SCH ×2 (08:44→21:59)
[2019-01-20] MEDS: Lyrica 50mg cap ORAL SCH (08:44)
[2019-01-20] MEDS: Montelukast 10mg tablet ORAL SCH (08:44)
[2019-01-20] MEDS: DiphenhydrAMINE 50mg/ml Inj IVP PRN ×2 (08:45→17:14)
[2019-01-20] MEDS: Budesonide HHN 0.25mg/2ml ud HHN SCH ×2 (08:49→21:44)
--- NOTE | 2019-01-20 08:49 | Pulmonology Progress Note ---
Assessment/Plan Assessment/Plan ASSESSMENT Acute respiratory failure on admission -resolved Acute asthma exacerbation Cerebrovascular disease with history of CVA Seizure disorder Hypertensive urgency GERD Coronary artery disease PLAN OF CARE MS floor O2 to keep pulse oximetry above 90%. HHN ATC and prn CPT added inhaled steroid/Budesonide bid intravenous steroids with fast tapering down. sputum culture if able empiric antibiotic. CXR revealed COPD, mild CHF may be present trial of theophylline started antitussive prn continue Singular GI prophylaxis BP management with amlodipine, increase to bid ( HTN urgency possibly due to steroids, monitor closely), add Hydralazine prn recent ECHO in December 2018 with pEF, no evidence of pulm HTN check lipid panel and HgA1c in am-declined labs this am a/PLT therapy with Plavix seizure precaution , continue Dilantin bowel regimen supportive care case discussed and evaluated by supervising physician Subjective Allergies: Uncoded Allergies: Canned Food (Allergy, Unknown, 03/22/18) Nausea/Vomitting/Indigestion Subjective still wheezing, no resp distress coughing BP elevated Objective Last 24 Hour Vital Signs Date Time Temp Pulse Resp B/P (MAP) Pulse Ox O2 Delivery O2 Flow Rate FiO2 01/20/19 08:00 98.2 87 20 164/73 (103) 91 01/20/19 06:37 74 16 Room Air 21 01/20/19 06:33 Room Air 21 01/20/19 06:33 Room Air 21 01/20/19 06:32 Room Air 21 01/20/19 06:32 97 Room Air 21 01/20/19 02:51 Room Air 21 01/20/19 02:51 Room Air 21 01/19/19 23:01 Room Air 21 01/19/19 23:00 Room Air 21 01/19/19 21:38 Room Air 21 01/19/19 21:37 Room Air 21 01/19/19 21:00 Room Air Room Air 01/19/19 20:00 97.9 88 18 156/81 (106) 94 01/19/19 20:00 81 18 100 Room Air 21 01/19/19 19:57 Room Air 21 01/19/19 19:56 99 Room Air 21 01/19/19 19:49 78 18 98 Room Air 21 01/19/19 17:07 103 153/78 01/19/19 16:00 97.9 84 19 115/84 (94) 98 01/19/19 15:34 88 18 99 Room Air 21 01/19/19 15:26 86 18 96 Room Air 21 01/19/19 15:26 36 01/19/19 12:00 97.9 89 18 150/74 (99) 94 01/19/19 10:58 87 18 99 Room Air 21 01/19/19 10:51 36 01/19/19 10:51 87 16 95 Room Air 21 01/19/19 09:00 Room Air Room Air Intake and Output 01/19/19 01/20/19 19:00 07:00 Intake Total 465.0 ml 267.5 ml Balance 465.0 ml 267.5 ml Intake Oral 300 ml 240 ml IV Total 165.0 ml 27.5 ml # Voids 2 4 Objective General Appearance: no acute distress, other - awake, alert, elderly female HEENT: normocephalic, atraumatic, anicteric, mucous membranes moist, PERRL Respiratory/Chest: expiratory wheezing with diffused exp wheezes Cardiovascular: normal peripheral pulses, normal rate, no JVD Abdomen: soft, non tender, non distended Extremities: no edema, pedal pulses normal Neurologic/Psychiatric: alert, responsive Musculoskeletal: atrophy - BLE Current Medications Medications (Trade) Dose Ordered Sig/Mecca Route PRN Reason Start Time Stop Time Status Last Admin Dose Admin Albuterol/ Ipratropium (Albuterol/ Ipratropium) 3 ml Q4H PRN HHN dyspnea 01/18/19 18:45 01/22/19 10:44 Albuterol/ Ipratropium (Albuterol/ Ipratropium) 3 ml Q4HRT HHN 01/18/19 19:00 01/23/19 18:59 01/19/19 19:55 Amlodipine Besylate (Norvasc) 5 mg BID ORAL 01/19/19 18:00 02/17/19 08:59 01/19/19 17:07 Baclofen (Lioresal) 10 mg DAILY ORAL 01/19/19 09:00 02/17/19 08:59 01/19/19 08:07 Budesonide (Pulmicort) 0.25 mg EVERY 12 HOURS N 01/19/19 21:00 02/18/19 20:59 Clopidogrel Bisulfate (Plavix) 75 mg DAILY ORAL 01/19/19 09:00 02/17/19 08:59 01/19/19 08:07 Dextrose (Dextrose 50%) 25 ml Q30M PRN IV Hypoglycemia 01/18/19 16:45 02/16/19 10:44 Dextrose (Dextrose 50%) 50 ml Q30M PRN IV Hypoglycemia 01/18/19 16:45 02/16/19 10:44 Diphenhydramine HCl (Benadryl) 25 mg Q6H PRN IVP Itching 01/19/19 19:45 02/18/19 19:44 Famotidine (Pepcid) 20 mg DAILY ORAL 01/20/19 09:00 02/19/19 08:59 Heparin Sodium (Porcine) (Heparin 5000 units/ml) 5,000 units EVERY 12 HOURS SUBQ 01/18/19 21:00 02/16/19 20:59 01/19/19 20:19 Lorazepam (Ativan 2mg/ml 1ml) 0.5 mg Q4H PRN IV For Anxiety 01/18/19 17:00 01/24/19 16:59 Methylprednisolone Sodium Succinate (Solu-MEDROL) 60 mg EVERY 8 HOURS IV 01/19/19 14:00 02/16/19 11:59 01/20/19 05:16 Montelukast Sodium (Singulair) 10 mg DAILY ORAL 01/19/19 09:00 02/17/19 08:59 01/19/19 08:09 Morphine Sulfate (Morphine Sulfate) 2 mg Q4H PRN IVP severe pain 7-10 01/18/19 17:00 01/24/19 16:59 01/19/19 23:50 Nitroglycerin (Ntg) 0.4 mg Q5M X 3 DOSES PRN SL Prn Chest Pain 01/18/19 16:45 02/16/19 10:44 Ondansetron HCl (Zofran) 4 mg Q6H PRN IVP Nausea & Vomiting 01/18/19 16:45 02/16/19 10:44 Phenytoin (Dilantin) 100 mg Q12HR ORAL 01/18/19 21:00 02/16/19 20:59 01/19/19 20:19 Piperacillin Sod/ Tazobactam Sod 3.375 gm/Dextrose 110 ml @ 27.5 mls/hr EVERY 8 HOURS IVPB 01/18/19 22:00 01/24/19 13:59 01/20/19 05:18 Pregabalin (Lyrica) 50 mg DAILY ORAL 01/19/19 09:00 02/17/19 08:59 01/19/19 08:08 Promethazine HCl/ Codeine (Phenergan with Codeine) 5 ml Q6H PRN ORAL cough 01/18/19 17:00 02/16/19 16:59 Temazepam (Restoril) 15 mg HSPRN PRN ORAL Insomnia 01/18/19 17:00 01/25/19 16:59 Theophylline (Fabrice-Dur) 100 mg EVERY 12 HOURS ORAL 01/18/19 21:00 02/16/19 20:59 01/19/19 20:19 Jessica Landry NP January 20, 2019 08:49
[2019-01-20] MEDS: Heparin 5000 units/ml inj SUBQ SCH ×2 (08:55→22:08)
[2019-01-20] MEDS: Morphine Sulfate 2mg/ml Inj(IV/IM USE ONLY) IVP PRN (11:21)
[2019-01-20 12:00] VITALS: BP 150/81
--- NOTE | 2019-01-20 14:07 | Internal Med Progress Note ---
Subjective Date of Service: January 20, 2019 Physician Name Hank Toure Attending Physician Shlomo Garcia MD Current Medications Medications (Trade) Dose Ordered Sig/Mecca Route PRN Reason Start Time Stop Time Status Last Admin Dose Admin Albuterol/ Ipratropium (Albuterol/ Ipratropium) 3 ml Q4H PRN HHN dyspnea 01/18/19 18:45 01/22/19 10:44 Albuterol/ Ipratropium (Albuterol/ Ipratropium) 3 ml Q4HRT HHN 01/18/19 19:00 01/23/19 18:59 01/20/19 11:06 Amlodipine Besylate (Norvasc) 5 mg BID ORAL 01/19/19 18:00 02/17/19 08:59 01/20/19 08:45 Baclofen (Lioresal) 10 mg DAILY ORAL 01/19/19 09:00 02/17/19 08:59 01/20/19 08:44 Budesonide (Pulmicort) 0.25 mg EVERY 12 HOURS HHN 01/19/19 21:00 02/18/19 20:59 01/20/19 08:49 Clopidogrel Bisulfate (Plavix) 75 mg DAILY ORAL 01/19/19 09:00 02/17/19 08:59 01/20/19 08:43 Dextrose (Dextrose 50%) 25 ml Q30M PRN IV Hypoglycemia 01/18/19 16:45 02/16/19 10:44 Dextrose (Dextrose 50%) 50 ml Q30M PRN IV Hypoglycemia 01/18/19 16:45 02/16/19 10:44 Diphenhydramine HCl (Benadryl) 25 mg Q6H PRN IVP Itching 01/19/19 19:45 02/18/19 19:44 01/20/19 08:45 Famotidine (Pepcid) 20 mg DAILY ORAL 01/20/19 09:00 02/19/19 08:59 01/20/19 08:44 Heparin Sodium (Porcine) (Heparin 5000 units/ml) 5,000 units EVERY 12 HOURS SUBQ 01/18/19 21:00 02/16/19 20:59 01/20/19 08:55 Lorazepam (Ativan 2mg/ml 1ml) 0.5 mg Q4H PRN IV For Anxiety 01/18/19 17:00 01/24/19 16:59 Methylprednisolone Sodium Succinate (Solu-MEDROL) 60 mg EVERY 12 HOURS IV 01/20/19 21:00 02/19/19 20:59 Montelukast Sodium (Singulair) 10 mg DAILY ORAL 01/19/19 09:00 02/17/19 08:59 01/20/19 08:44 Morphine Sulfate (Morphine Sulfate) 2 mg Q4H PRN IVP severe pain 7-10 01/18/19 17:00 01/24/19 16:59 01/20/19 11:21 Nitroglycerin (Ntg) 0.4 mg Q5M X 3 DOSES PRN SL Prn Chest Pain 01/18/19 16:45 02/16/19 10:44 Ondansetron HCl (Zofran) 4 mg Q6H PRN IVP Nausea & Vomiting 01/18/19 16:45 02/16/19 10:44 Phenytoin (Dilantin) 100 mg Q12HR ORAL 01/18/19 21:00 02/16/19 20:59 01/20/19 08:43 Piperacillin Sod/ Tazobactam Sod 3.375 gm/Dextrose 110 ml @ 27.5 mls/hr EVERY 8 HOURS IVPB 01/18/19 22:00 01/24/19 13:59 01/20/19 05:18 Pregabalin (Lyrica) 50 mg DAILY ORAL 01/19/19 09:00 02/17/19 08:59 01/20/19 08:44 Promethazine HCl/ Codeine (Phenergan with Codeine) 5 ml Q6H PRN ORAL cough 01/18/19 17:00 02/16/19 16:59 Temazepam (Restoril) 15 mg HSPRN PRN ORAL Insomnia 01/18/19 17:00 01/25/19 16:59 Theophylline (Fabrice-Dur) 100 mg EVERY 12 HOURS ORAL 01/18/19 21:00 02/16/19 20:59 01/20/19 08:44 Allergies: Uncoded Allergies: Canned Food (Allergy, Unknown, 03/22/18) Nausea/Vomitting/Indigestion ROS Limited/Unobtainable: No Constitutional: Reports: no symptoms HEENT: Reports: no symptoms Cardiovascular: Reports: no symptoms Respiratory: Reports: shortness of breath Gastrointestinal/Abdominal: Reports: no symptoms Genitourinary: Reports: no symptoms Neurologic/Psychiatric: Reports: no symptoms Subjective 84 YO F admitted with shortness of breath and cough. Now asthma exacerbation and bronchitis. Cover for Int Med-DR Garcia Objective Last Vital Signs Date Time Temp Pulse Resp B/P (MAP) Pulse Ox O2 Delivery O2 Flow Rate FiO2 01/20/19 12:00 98.2 61 19 150/81 (104) 97 01/20/19 11:13 Room Air 21 01/19/19 03:06 2.0 Intake and Output 01/19/19 01/20/19 19:00 07:00 Intake Total 465.0 ml 267.5 ml Balance 465.0 ml 267.5 ml Intake Oral 300 ml 240 ml IV Total 165.0 ml 27.5 ml # Voids 2 4 Objective PHYSICAL EXAMINATION: GENERAL: The patient is well-developed and well-nourished female, in no apparent distress. HEENT: Eyes, pupils are equal and responsive to light and accommodation. Extraocular movements are intact. NECK: Supple without lymphadenopathy. CHEST: Lungs are clear to auscultation bilaterally without wheezes or rales. CARDIOVASCULAR: Regular rhythm and rate. S1 and S2 are normal without murmurs, rubs, or gallops. ABDOMEN: Soft, nontender, and nondistended. Positive bowel sounds. No evidence of hepatosplenomegaly. Currently, no rebound or guarding noted. EXTREMITIES: Negative for clubbing, cyanosis, or edema. RECTAL/GENITAL: Refused. NEUROLOGIC: Cranial nerves II through XII are grossly intact without focal deficits. Motor strength is 5/5 bilaterally. Deep tendon reflexes are 2+ plantar. Assessment/Plan Assessment/Plan Assessment/Plan ASSESSMENT: This is an 84-year-old female. 1. Shortness of breath. 2. Cough. 3. Acute exacerbation of asthma. 4. History of cerebrovascular accident. 5. Hypertension. 6. Hypercholesterolemia. 7. Gastroesophageal reflux disease. 8. Seizure disorder. 9. Coronary artery disease. TREATMENT: 1. Cough/shortness of breath/asthma. A Pulmonary consultation has been obtained with Dr. Luis A Juares. The patient has been placed empirically on Zosyn. The patient is also on intravenous Solu-Medrol. The patient is receiving DuoNeb every 4 hours p.r.n. 2. Hypertension. Continue amlodipine as above. 3. Hypercholesterolemia. Continue atorvastatin as above. 4. Gastroesophageal reflux disease. The patient has been continued on Protonix. 5. Seizure disorder. Continue Dilantin and Lyrica as above. 6. Coronary artery disease. Continue Plavix as above. January 18, 2019 10:57 Hank Toure MD January 20, 2019 14:07
[2019-01-20 16:00] VITALS: BP 146/75
[2019-01-20 20:00] VITALS: BP 155/86
[2019-01-20] MEDS: Atorvastatin 20mg tab ORAL SCH (21:59)
[2019-01-21] MEDS: DiphenhydrAMINE 50mg/ml Inj IVP PRN ×3 (00:11→20:46)
[2019-01-21] MEDS: Albuterol/Ipratropium 3ml neb HHN SCH ×6 (03:00→22:52)
[2019-01-21 04:00] VITALS: BP 153/78
[2019-01-21] MEDS: Piperacillin/Tazobactam 3.375 GM in D5W 110 ML IVPB SCH ×3 (06:55→22:00)
[2019-01-21 08:00] VITALS: BP 171/87
[2019-01-21] MEDS: Phenytoin 100mg cap ORAL SCH ×2 (08:30→20:46)
[2019-01-21] MEDS: Montelukast 10mg tablet ORAL SCH (08:30)
[2019-01-21] MEDS: Theophylline ER 100mg ORAL SCH ×2 (08:31→20:45)
[2019-01-21] MEDS: Lyrica 50mg cap ORAL SCH (08:31)
[2019-01-21] MEDS: Solu-MEDROL 125mg Inj IV SCH (08:32)
[2019-01-21] MEDS: Heparin 5000 units/ml inj SUBQ SCH ×2 (08:33→20:47)
[2019-01-21] MEDS: Budesonide HHN 0.25mg/2ml ud HHN SCH ×2 (09:41→21:26)
[2019-01-21] MEDS: Morphine Sulfate 2mg/ml Inj(IV/IM USE ONLY) IVP PRN (10:20)
[2019-01-21 12:00] VITALS: BP 153/103
--- NOTE | 2019-01-21 12:58 | Pulmonology Progress Note ---
Assessment/Plan Problems: (1) Chronic back pain (2) Acute respiratory failure (3) Acute asthma exacerbation (4) HTN (hypertension) (5) GERD (gastroesophageal reflux disease) (6) Cerebral vascular disease (7) CAD (coronary artery disease) Assessment/Plan slightly better respiratory treatment high dose steroids with rapid taper to qD today MRI of L spine today check sputum antitussives iv abx monitor BP dvt prophylaxis. med/surg Subjective ROS Limited/Unobtainable: No Constitutional: Reports: no symptoms HEENT: Repors: no symptoms Respiratory: Reports: no symptoms Allergies: Uncoded Allergies: Canned Food (Allergy, Unknown, 03/22/18) Nausea/Vomitting/Indigestion Objective Last 24 Hour Vital Signs Date Time Temp Pulse Resp B/P (MAP) Pulse Ox O2 Delivery O2 Flow Rate FiO2 01/21/19 11:53 88 22 100 Nasal Cannula 2.0 28 01/21/19 11:44 72 20 98 Nasal Cannula 2.0 28 01/21/19 09:43 94 20 100 Nasal Cannula 2.0 28 01/21/19 09:30 88 22 99 Room Air 21 01/21/19 09:00 Room Air Room Air 01/21/19 08:31 95 171/57 01/21/19 08:00 97.3 95 19 171/87 (115) 96 01/21/19 07:09 Nasal Cannula 2.0 28 01/21/19 07:09 Nasal Cannula 2.0 28 01/21/19 07:09 98 Nasal Cannula 2.0 28 01/21/19 07:09 68 18 Nasal Cannula 2.0 28 01/21/19 07:09 Nasal Cannula 2.0 28 01/21/19 04:00 98.6 98 20 153/78 (103) 97 01/21/19 03:34 Room Air 01/21/19 03:34 Room Air 01/20/19 23:46 Room Air 01/20/19 23:46 Room Air 21 01/20/19 21:54 92 18 99 Room Air 21 01/20/19 21:49 21 01/20/19 21:45 89 18 93 Room Air 21 01/20/19 21:00 Room Air Room Air 01/20/19 20:00 98.4 98 20 155/86 (109) 96 01/20/19 19:03 92 18 95 Room Air 21 01/20/19 19:03 Room Air 21 01/20/19 19:02 92 Room Air 21 01/20/19 19:01 90 18 Room Air 21 01/20/19 18:51 90 18 92 Room Air 21 01/20/19 17:14 76 146/75 01/20/19 16:00 97.9 76 18 146/75 (98) 96 01/20/19 15:39 Room Air 21 01/20/19 15:39 Room Air 21 Intake and Output 01/20/19 01/21/19 19:00 07:00 Intake Total 327.5 ml 450 ml Balance 327.5 ml 450 ml Intake Oral 300 ml 450 ml IV Total 27.5 ml # Voids 2 4 General Appearance: WD/WN HEENT: normocephalic, atraumatic Respiratory/Chest: chest wall non-tender, crackles/rales Breasts: no masses Cardiovascular: normal peripheral pulses, normal rate Abdomen: normal bowel sounds, soft, non tender Genitourinary: normal external genitalia Extremities: no clubbing Current Medications Medications (Trade) Dose Ordered Sig/Mecca Route PRN Reason Start Time Stop Time Status Last Admin Dose Admin Albuterol/ Ipratropium (Albuterol/ Ipratropium) 3 ml Q4H PRN HHN dyspnea 01/18/19 18:45 01/22/19 10:44 Albuterol/ Ipratropium (Albuterol/ Ipratropium) 3 ml Q4HRT HHN 01/18/19 19:00 01/23/19 18:59 01/21/19 11:44 Amlodipine Besylate (Norvasc) 5 mg BID ORAL 01/19/19 18:00 02/17/19 08:59 01/21/19 08:31 Atorvastatin Calcium (Lipitor) 40 mg BEDTIME ORAL 01/20/19 21:00 02/19/19 20:59 01/20/19 21:59 Baclofen (Lioresal) 10 mg DAILY ORAL 01/19/19 09:00 02/17/19 08:59 01/21/19 08:30 Budesonide (Pulmicort) 0.25 mg EVERY 12 HOURS HHN 01/19/19 21:00 02/18/19 20:59 01/21/19 09:41 Clopidogrel Bisulfate (Plavix) 75 mg DAILY ORAL 01/19/19 09:00 02/17/19 08:59 01/21/19 08:31 Dextrose (Dextrose 50%) 25 ml Q30M PRN IV Hypoglycemia 01/18/19 16:45 02/16/19 10:44 Dextrose (Dextrose 50%) 50 ml Q30M PRN IV Hypoglycemia 01/18/19 16:45 02/16/19 10:44 Diphenhydramine HCl (Benadryl) 25 mg Q6H PRN IVP Itching 01/19/19 19:45 02/18/19 19:44 01/21/19 10:47 Famotidine (Pepcid) 20 mg DAILY ORAL 01/20/19 09:00 02/19/19 08:59 01/21/19 08:30 Heparin Sodium (Porcine) (Heparin 5000 units/ml) 5,000 units EVERY 12 HOURS SUBQ 01/18/19 21:00 02/16/19 20:59 01/21/19 08:33 Lorazepam (Ativan 2mg/ml 1ml) 0.5 mg Q4H PRN IV For Anxiety 01/18/19 17:00 01/24/19 16:59 Methylprednisolone Sodium Succinate (Solu-MEDROL) 60 mg EVERY 12 HOURS IV 01/20/19 21:00 02/19/19 20:59 01/21/19 08:32 Montelukast Sodium (Singulair) 10 mg DAILY ORAL 01/19/19 09:00 02/17/19 08:59 01/21/19 08:30 Morphine Sulfate (Morphine Sulfate) 2 mg Q4H PRN IVP severe pain 7-10 01/18/19 17:00 01/24/19 16:59 01/21/19 10:20 Nitroglycerin (Ntg) 0.4 mg Q5M X 3 DOSES PRN SL Prn Chest Pain 01/18/19 16:45 02/16/19 10:44 Ondansetron HCl (Zofran) 4 mg Q6H PRN IVP Nausea & Vomiting 01/18/19 16:45 02/16/19 10:44 Phenytoin (Dilantin) 100 mg Q12HR ORAL 01/18/19 21:00 02/16/19 20:59 01/21/19 08:30 Piperacillin Sod/ Tazobactam Sod 3.375 gm/Dextrose 110 ml @ 27.5 mls/hr EVERY 8 HOURS IVPB 01/18/19 22:00 01/24/19 13:59 01/21/19 06:55 Pregabalin (Lyrica) 50 mg DAILY ORAL 01/19/19 09:00 02/17/19 08:59 01/21/19 08:31 Promethazine HCl/ Codeine (Phenergan with Codeine) 5 ml Q6H PRN ORAL cough 01/18/19 17:00 02/16/19 16:59 Temazepam (Restoril) 15 mg HSPRN PRN ORAL Insomnia 01/18/19 17:00 01/25/19 16:59 Theophylline (Fabrice-Dur) 100 mg EVERY 12 HOURS ORAL 01/18/19 21:00 02/16/19 20:59 01/21/19 08:31 Luis A Juares MD January 21, 2019 12:58
[2019-01-21] MEDS ORDERED: HYDROcodone/Acetamin 10/325 tab ORAL PRN (13:00)
--- NOTE | 2019-01-21 13:09 | Diagnostic Imaging Report ---
Indication: Dyspnea Comparison: 01/17/2019 A single view chest radiograph was obtained. Findings: Hiatal hernia is suspected. The heart is mildly enlarged. Lungs are hyperexpanded. No obvious infiltrate identified. Scarring in the left upper lobe suspected. Some calcifications in the left apex may be costal cartilage or calcified granulomata. Bones are osteopenic. Aorta is calcified. IMPRESSION: No acute findings. Old granulomatous disease versus cartilage calcification in the left lung apex Suspected COPD Hiatal hernia
--- NOTE | 2019-01-21 15:42 | Diagnostic Imaging Report ---
Indication: Back pain Technique: MRI examination of the lumbar spine was performed in a 1.5 Kady magnet. Sequences obtained include sagittal and axial T1 and T2 fast spin echo, and sagittal STIR. Comparison: none Findings: Conus medullaris is seen opposite L1. There is degenerative disc disease at multiple levels throughout the visualized lower thoracic and lumbar spine. This is characterized by narrowing and desiccation of the intervertebral discs, concentric wide-based disc bulges with accompanying endplate osteophytes. Hypertrophied facets at multiple levels demonstrated. There are cysts within the right kidney. Bone marrow signal normal. No paraspinous or paravertebral soft tissue edema or abnormal fluid collections identified. T12-L1 shows no significant central or neural foraminal stenosis. L1-2 shows a minimal retrolisthesis. Facet arthropathy is present. No significant central or foraminal stenosis appreciated. L2-3 shows mild central stenosis and narrowing of the lateral recess. There is mild bilateral foraminal stenosis. L3-4 shows narrowing of the central canal lateral recess. Mild to moderate foraminal stenosis demonstrated bilaterally. L4-5 shows a minimal anterolisthesis. There is central stenosis moderate in degree. There is a mild to moderate left foraminal stenosis and moderate to severe right foraminal stenosis. At S3 there is a ovoid cyst in the central part of the canal by 1.6 x 1 cm. L5-S1: Minimal anterolisthesis demonstrated. Mild to moderate bilateral foraminal stenosis demonstrated. No central canal narrowing identified. IMPRESSION: Moderate degenerative disease of the lumbar and visualized lower thoracic spine at the level the intervertebral discs and facets. L4-5 moderate central spinal stenosis and narrowing of the lateral recess. Moderate to severe right foraminal stenosis and mild to moderate left foraminal stenosis. L3-4: Mild central and lateral recess stenosis. Mild to moderate bilateral foraminal stenosis. L2-3: Mild central spinal stenosis and narrowed lateral recesses. Mild bilateral foraminal stenosis. L5-S1 mild to moderate bilateral foraminal stenosis. Multiple cysts in the right kidney S3 sacral Tarlov cyst
[2019-01-21 16:00] VITALS: BP 134/72
--- NOTE | 2019-01-21 19:09 | Internal Med Progress Note ---
Subjective Date of Service: January 21, 2019 Physician Name TejalHank Attending Physician Shlomo Garcia MD Current Medications Medications (Trade) Dose Ordered Sig/Mecca Route PRN Reason Start Time Stop Time Status Last Admin Dose Admin Acetaminophen/ Hydrocodone Bitart ([place] 10/325) 1 tab Q4H PRN ORAL For Pain 01/21/19 13:00 01/28/19 12:59 Albuterol/ Ipratropium (Albuterol/ Ipratropium) 3 ml Q4H PRN HHN dyspnea 01/18/19 18:45 01/22/19 10:44 Albuterol/ Ipratropium (Albuterol/ Ipratropium) 3 ml Q4HRT HHN 01/18/19 19:00 01/23/19 18:59 01/21/19 15:40 Amlodipine Besylate (Norvasc) 5 mg BID ORAL 01/19/19 18:00 02/17/19 08:59 01/21/19 18:05 Atorvastatin Calcium (Lipitor) 40 mg BEDTIME ORAL 01/20/19 21:00 02/19/19 20:59 01/20/19 21:59 Baclofen (Lioresal) 10 mg DAILY ORAL 01/19/19 09:00 02/17/19 08:59 01/21/19 08:30 Budesonide (Pulmicort) 0.25 mg EVERY 12 HOURS N 01/19/19 21:00 02/18/19 20:59 01/21/19 09:41 Clopidogrel Bisulfate (Plavix) 75 mg DAILY ORAL 01/19/19 09:00 02/17/19 08:59 01/21/19 08:31 Dextrose (Dextrose 50%) 25 ml Q30M PRN IV Hypoglycemia 01/18/19 16:45 02/16/19 10:44 Dextrose (Dextrose 50%) 50 ml Q30M PRN IV Hypoglycemia 01/18/19 16:45 02/16/19 10:44 Diphenhydramine HCl (Benadryl) 25 mg Q6H PRN IVP Itching 01/19/19 19:45 02/18/19 19:44 01/21/19 10:47 Famotidine (Pepcid) 20 mg DAILY ORAL 01/20/19 09:00 02/19/19 08:59 01/21/19 08:30 Heparin Sodium (Porcine) (Heparin 5000 units/ml) 5,000 units EVERY 12 HOURS SUBQ 01/18/19 21:00 02/16/19 20:59 01/21/19 08:33 Lorazepam (Ativan 2mg/ml 1ml) 0.5 mg Q4H PRN IV For Anxiety 01/18/19 17:00 01/24/19 16:59 Methylprednisolone Sodium Succinate (Solu-MEDROL) 60 mg DAILY IV 01/22/19 09:00 02/19/19 20:59 Montelukast Sodium (Singulair) 10 mg DAILY ORAL 01/19/19 09:00 02/17/19 08:59 01/21/19 08:30 Nitroglycerin (Ntg) 0.4 mg Q5M X 3 DOSES PRN SL Prn Chest Pain 01/18/19 16:45 02/16/19 10:44 Ondansetron HCl (Zofran) 4 mg Q6H PRN IVP Nausea & Vomiting 01/18/19 16:45 02/16/19 10:44 Phenytoin (Dilantin) 100 mg Q12HR ORAL 01/18/19 21:00 02/16/19 20:59 01/21/19 08:30 Piperacillin Sod/ Tazobactam Sod 3.375 gm/Dextrose 110 ml @ 27.5 mls/hr EVERY 8 HOURS IVPB 01/18/19 22:00 01/24/19 13:59 01/21/19 13:50 Pregabalin (Lyrica) 50 mg DAILY ORAL 01/19/19 09:00 02/17/19 08:59 01/21/19 08:31 Promethazine HCl/ Codeine (Phenergan with Codeine) 5 ml Q6H PRN ORAL cough 01/18/19 17:00 02/16/19 16:59 Temazepam (Restoril) 15 mg HSPRN PRN ORAL Insomnia 01/18/19 17:00 01/25/19 16:59 Theophylline (Fabrice-Dur) 100 mg EVERY 12 HOURS ORAL 01/18/19 21:00 02/16/19 20:59 01/21/19 08:31 Allergies: Uncoded Allergies: Canned Food (Allergy, Unknown, 03/22/18) Nausea/Vomitting/Indigestion ROS Limited/Unobtainable: No Constitutional: Reports: no symptoms HEENT: Reports: no symptoms Cardiovascular: Reports: no symptoms Respiratory: Reports: shortness of breath Gastrointestinal/Abdominal: Reports: no symptoms Genitourinary: Reports: no symptoms Neurologic/Psychiatric: Reports: no symptoms Subjective 84 YO F admitted with shortness of breath and cough. Now asthma exacerbation and bronchitis. Cover for Int Med-DR Garcia Objective Last Vital Signs Date Time Temp Pulse Resp B/P (MAP) Pulse Ox O2 Delivery O2 Flow Rate FiO2 01/21/19 18:05 94 151/114 01/21/19 16:00 99.2 18 96 01/21/19 15:55 Room Air 2.0 28 Intake and Output 01/20/19 01/21/19 18:59 06:59 Intake Total 327.5 ml 450 ml Balance 327.5 ml 450 ml Intake Oral 300 ml 450 ml IV Total 27.5 ml # Voids 2 4 Objective PHYSICAL EXAMINATION: GENERAL: The patient is well-developed and well-nourished female, in no apparent distress. HEENT: Eyes, pupils are equal and responsive to light and accommodation. Extraocular movements are intact. NECK: Supple without lymphadenopathy. CHEST: Lungs are clear to auscultation bilaterally without wheezes or rales. CARDIOVASCULAR: Regular rhythm and rate. S1 and S2 are normal without murmurs, rubs, or gallops. ABDOMEN: Soft, nontender, and nondistended. Positive bowel sounds. No evidence of hepatosplenomegaly. Currently, no rebound or guarding noted. EXTREMITIES: Negative for clubbing, cyanosis, or edema. RECTAL/GENITAL: Refused. NEUROLOGIC: Cranial nerves II through XII are grossly intact without focal deficits. Motor strength is 5/5 bilaterally. Deep tendon reflexes are 2+ plantar. Assessment/Plan Assessment/Plan Assessment/Plan ASSESSMENT: This is an 84-year-old female. 1. Shortness of breath. 2. Cough. 3. Acute exacerbation of asthma. 4. History of cerebrovascular accident. 5. Hypertension. 6. Hypercholesterolemia. 7. Gastroesophageal reflux disease. 8. Seizure disorder. 9. Coronary artery disease. TREATMENT: 1. Cough/shortness of breath/asthma. A Pulmonary consultation has been obtained with Dr. Luis A Juares. The patient has been placed empirically on Zosyn. The patient is on intravenous Solu-Medrol taper. The patient is receiving DuoNeb every 4 hours p.r.n. 2. Hypertension. Continue amlodipine as above. 3. Hypercholesterolemia. Continue atorvastatin as above. 4. Gastroesophageal reflux disease. The patient has been continued on Protonix. 5. Seizure disorder. Continue Dilantin and Lyrica as above. 6. Coronary artery disease. Continue Plavix as above. January 18, 2019 10:57 Hank Toure MD January 21, 2019 19:09
--- NOTE | 2019-01-21 19:48 | Cardiology Report ---
APPROVED REPORT EKG Measurement Heart [id number] Normal sinus rhythm with sinus arrhythmia Normal ECG
[2019-01-21] MEDS: Atorvastatin 20mg tab ORAL SCH (20:45)
[2019-01-22] MEDS: Albuterol/Ipratropium 3ml neb HHN SCH ×3 (03:42→11:45)
[2019-01-22] MEDS: Piperacillin/Tazobactam 3.375 GM in D5W 110 ML IVPB SCH ×2 (06:13→13:48)
[2019-01-22 07:56] VITALS: BP 165/75
[2019-01-22 08:00] VITALS: BP 125/70
[2019-01-22] MEDS: Lyrica 50mg cap ORAL SCH (08:21)
[2019-01-22] MEDS: Theophylline ER 100mg ORAL SCH (08:21)
[2019-01-22] MEDS: Montelukast 10mg tablet ORAL SCH (08:22)
[2019-01-22] MEDS: Phenytoin 100mg cap ORAL SCH (08:25)
[2019-01-22] MEDS: Heparin 5000 units/ml inj SUBQ SCH (08:30)
[2019-01-22] MEDS ORDERED: Solu-MEDROL 125mg Inj IV SCH (09:00)
[2019-01-22] MEDS: Budesonide HHN 0.25mg/2ml ud HHN SCH (09:29)
[2019-01-22 11:48] VITALS: BP 138/71
[2019-01-22] MEDS ORDERED: PULMICORT1 EA HHN (12:48)
--- NOTE | 2019-01-22 12:50 | Pulmonology Progress Note ---
Assessment/Plan Problems: (1) Chronic back pain (2) Acute respiratory failure (3) Acute asthma exacerbation (4) HTN (hypertension) (5) GERD (gastroesophageal reflux disease) (6) Cerebral vascular disease (7) CAD (coronary artery disease) Assessment/Plan slightly better respiratory treatment high dose steroids with rapid taper to qD today MRI of L spine done check sputum antitussives monitor BP dvt prophylaxis. med/surg dc home Subjective ROS Limited/Unobtainable: No Constitutional: Reports: no symptoms HEENT: Repors: no symptoms Respiratory: Reports: no symptoms Allergies: Uncoded Allergies: Canned Food (Allergy, Unknown, 03/22/18) Nausea/Vomitting/Indigestion Objective Last 24 Hour Vital Signs Date Time Temp Pulse Resp B/P (MAP) Pulse Ox O2 Delivery O2 Flow Rate FiO2 01/22/19 11:58 89 16 99 Nasal Cannula 2.0 01/22/19 11:48 98.0 93 15 138/71 (93) 95 01/22/19 11:45 81 16 95 Room Air 01/22/19 11:45 21 01/22/19 09:31 78 16 100 Room Air 21 01/22/19 09:19 75 16 98 Room Air 21 01/22/19 09:19 21 01/22/19 09:08 Room Air Room Air 01/22/19 08:24 100 125/70 01/22/19 08:17 98.1 01/22/19 08:00 98.1 100 15 125/70 (88) 95 01/22/19 07:44 81 18 98 Nasal Cannula 2.0 01/22/19 07:32 85 16 96 Room Air 01/22/19 07:32 96 Nasal Cannula 2.0 01/22/19 07:32 Room Air 21 01/22/19 07:32 21 01/22/19 03:52 87 18 98 Nasal Cannula 2.0 01/22/19 03:42 92 20 95 Room Air 01/21/19 22:53 Nasal Cannula 2.0 01/21/19 22:52 Nasal Cannula 2.0 01/21/19 21:36 83 20 100 Nasal Cannula 2.0 01/21/19 21:26 81 20 99 Nasal Cannula 2.0 01/21/19 21:00 Room Air Room Air 01/21/19 19:43 Nasal Cannula 2.0 01/21/19 19:43 84 20 97 Nasal Cannula 2.0 01/21/19 19:43 97 Nasal Cannula 2.0 01/21/19 19:38 84 18 99 Nasal Cannula 2.0 28 01/21/19 19:28 84 18 97 Nasal Cannula 2.0 28 01/21/19 18:05 94 151/114 01/21/19 16:00 99.2 87 18 134/72 (92) 96 01/21/19 15:55 94 18 100 Room Air 2.0 01/21/19 15:40 80 18 97 Room Air Intake and Output 01/21/19 01/22/19 19:00 07:00 Intake Total 800 ml 300 ml Balance 800 ml 300 ml Intake Oral 300 ml Other 800 ml # Voids 4 General Appearance: WD/WN HEENT: normocephalic, atraumatic, anicteric Respiratory/Chest: chest wall non-tender, lungs clear Breasts: no masses Cardiovascular: normal rate Genitourinary: normal external genitalia Extremities: no cyanosis 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 Lymphatic: no neck adenopathy Current Medications Medications (Trade) Dose Ordered Sig/[place] Route PRN Reason Start Time Stop Time Status Last Admin Dose Admin Acetaminophen/ Hydrocodone Bitart ([place] 10/325) 1 tab Q4H PRN ORAL For Pain 01/21/19 13:00 01/28/19 12:59 01/22/19 07:47 Albuterol/ Ipratropium (Albuterol/ Ipratropium) 3 ml Q4HRT N 01/18/19 19:00 01/23/19 18:59 01/22/19 11:45 Amlodipine Besylate (Norvasc) 5 mg BID ORAL 01/19/19 18:00 02/17/19 08:59 01/22/19 08:24 Atorvastatin Calcium (Lipitor) 40 mg BEDTIME ORAL 01/20/19 21:00 02/19/19 20:59 01/21/19 20:45 Baclofen (Lioresal) 10 mg DAILY ORAL 01/19/19 09:00 02/17/19 08:59 01/22/19 08:22 Budesonide (Pulmicort) 0.25 mg EVERY 12 HOURS N 01/19/19 21:00 6/17/19 20:59 01/22/19 09:29 Clopidogrel Bisulfate (Plavix) 75 mg DAILY ORAL 01/19/19 09:00 02/17/19 08:59 01/22/19 08:21 Dextrose (Dextrose 50%) 25 ml Q30M PRN IV Hypoglycemia 01/18/19 16:45 02/16/19 10:44 Dextrose (Dextrose 50%) 50 ml Q30M PRN IV Hypoglycemia 01/18/19 16:45 02/16/19 10:44 Diphenhydramine HCl (Benadryl) 25 mg Q6H PRN IVP Itching 01/19/19 19:45 02/18/19 19:44 01/21/19 20:46 Famotidine (Pepcid) 20 mg DAILY ORAL 01/20/19 09:00 02/19/19 08:59 01/22/19 08:22 Heparin Sodium (Porcine) (Heparin 5000 units/ml) 5,000 units EVERY 12 HOURS SUBQ 01/18/19 21:00 02/16/19 20:59 01/22/19 08:30 Lorazepam (Ativan 2mg/ml 1ml) 0.5 mg Q4H PRN IV For Anxiety 01/18/19 17:00 01/24/19 16:59 Methylprednisolone Sodium Succinate (Solu-MEDROL) 60 mg DAILY IV 01/22/19 09:00 02/19/19 20:59 01/22/19 08:22 Montelukast Sodium (Singulair) 10 mg DAILY ORAL 01/19/19 09:00 02/17/19 08:59 01/22/19 08:22 Nitroglycerin (Ntg) 0.4 mg Q5M X 3 DOSES PRN SL Prn Chest Pain 01/18/19 16:45 02/16/19 10:44 Ondansetron HCl (Zofran) 4 mg Q6H PRN IVP Nausea & Vomiting 01/18/19 16:45 02/16/19 10:44 Phenytoin (Dilantin) 100 mg Q12HR ORAL 01/18/19 21:00 02/16/19 20:59 01/22/19 08:25 Piperacillin Sod/ Tazobactam Sod 3.375 gm/Dextrose 110 ml @ 27.5 mls/hr EVERY 8 HOURS IVPB 01/18/19 22:00 01/24/19 13:59 01/22/19 06:13 Pregabalin (Lyrica) 50 mg DAILY ORAL 01/19/19 09:00 02/17/19 08:59 01/22/19 08:21 Promethazine HCl/ Codeine (Phenergan with Codeine) 5 ml Q6H PRN ORAL cough 01/18/19 17:00 02/16/19 16:59 Temazepam (Restoril) 15 mg HSPRN PRN ORAL Insomnia 01/18/19 17:00 01/25/19 16:59 Theophylline (Fabrice-Dur) 100 mg EVERY 12 HOURS ORAL 01/18/19 21:00 02/16/19 20:59 01/22/19 08:21 Luis A Juares MD January 22, 2019 12:50
[2019-01-22] MEDS ORDERED: NS 275ml ONE (14:41)
--- NOTE | 2019-01-25 07:50 | Discharge Summary ---
Discharge Summary Discharge Summary _ DATE OF ADMISSION: 01/17/2019 DATE OF DISCHARGE: 01/22/2019 DISCHARGED BY: Dr. Garcia REASON FOR ADMISSION: 84 years old female with past medical history of hypertension, asthma, cerebrovascular disease with history of CVA/TIA, presented to emergency department due to shortness of breath. Patient reported using inhaler at home/Ventolin without significant improvement. Patient reported persistent cough and wheezing, but no hemoptysis. She denied chest pain. Upon evaluation patient was placed on supplemental oxygen due to shortness of breath EKG revealed sinus rhythm, no acute ischemic changes. Chest x-ray revealed no acute cardiopulmonary pathology. Laboratory work-up revealed no leukocytosis, and stable hemoglobin hematocrit. Potassium 3.4. Troponin negative . Pro BNP 52 . Chest x-ray demonstrated COPD and possible mild CHF. X-ray of the left knee was done, since patient complained of pain in left knee , and revealed no evidence of acute injury . In ED patient received treatment with bronchodilator via HHN and loading dose of IV steroids. Patient subsequently was admitted for further management. CONSULTANTS: pulmonary Dr. Juares HOSPITAL COURSE: Patient admitted. Supplemental oxygen provided as needed to keep pulse oximetry above 90%. Pulmonary toilet provided with nebulizing therapy around the clock and as needed with bronchodilator. Inhaled budesonide added twice daily via HHN. Patient was started on intravenous steroids with tapering down and empiric antibiotics Sputum was not collected, since cough was nonproductive. Follow-up CXR revealed no acute findings. Old granulomatous disease versus cartilage calcification in the left lung apex. Suspected COPD. Hiatal hernia. Trial of theophylline started. Antitussive provided as needed. Singulair at nighttime continued. GI prophylaxis provided. Potassium repleted. Statin continued. Blood pressure was managed with calcium channel steph, and dose was uptitrated , since blood pressure was uncontrolled, possibly due to steroids. Hydralazine was added as needed. Blood pressure stabilized. Antiplatelet therapy with Plavix continued. Recent echo in December 2018 revealed preserved ejection fraction, no evidence of pulmonary hypertension. Seizure precautions maintained. Dilantin continued. No evidence of seizure activity while in the hospital. Bowel regimen instituted. Supportive care provided. Lumbar spine MRI revealed moderate degenerative disease of the lumbar and visualized lower thoracic spine. Pain management was addressed as needed. Patient clinically stabilized and was ready for discharge home. Prescription for Pulmicort provided. FINAL DIAGNOSES: Acute respiratory failure , on admission- resolved Acute asthma exacerbation Cerebrovascular disease with history of CVA Seizure disorder Hypertensive urgency -resolved GERD Coronary artery disease. Degenerative disease of the lumbar spine DISCHARGE MEDICATIONS: See Medication Reconciliation list. DISCHARGE INSTRUCTIONS: Patient was discharged home. Follow up with primary care provider in one week. Jessica Landry NP January 25, 2019 07:50
== END 2019-01-22 14:42 | disposition home or self-care (01) | DRG 189 ==
LOC: EDBD 09:09 → EMR 09:40 → 2E 10:11 → EDBEDREQ 10:37 → 3E 01-18 16:33
DX: J96.00 Acute respiratory failure, unspecified whether with hypoxia or hypercapnia (principal); J45.901 Unspecified asthma with (acute) exacerbation; I25.10 Atherosclerotic heart disease of native coronary artery without angina pectoris; Z95.5 Presence of coronary angioplasty implant and graft; I16.0 Hypertensive urgency; G40.909 Epilepsy, unspecified, not intractable, without status epilepticus; K21.9 Gastro-esophageal reflux disease without esophagitis; Z86.73 Personal history of transient ischemic attack (TIA), and cerebral infarction without residual deficits; E78.00 Pure hypercholesterolemia, unspecified; M47.9 Spondylosis, unspecified
CPT/HCPCS: 36415; 71045; 72148; 80053; 83880; 84484; 85025; 93005; 94640; 94664; 94760; 96374; 99285; J7620

== ENCOUNTER 2019-02-06 11:14 | Inpatient (IN) | payer MEDICARE, MEDICAID ==
[~2019-02-06] VITALS: Ht 162.6 cm; Wt 68.0 kg
[~2019-02-06 11:14] MED LIST changes: +NKM; +PULMICORT1 EA HHN
[2019-02-06] MEDS ORDERED: LABETALOL HCL100 MG ORAL (11:25)
[2019-02-06] MEDS ORDERED: AMOXAPINE25 MG ORAL (11:25)
[2019-02-06] MEDS ORDERED: Albuterol/Ipratropium 3ml neb HHN ONE ×2 (11:30→14:15)
[2019-02-06] MEDS ORDERED: Solu-MEDROL 125mg Inj IVP ONE (11:30)
--- NOTE | 2019-02-06 11:30 | NUR ---
ED Nurse Note: pt arrives from home with c/o feeling short of breath today. relates she is having a lot of congestion. white phlegm coughed up by pt. speaks full sentences well, but anxious affect. denies cp or n/v. pedal edema noted.
[2019-02-06 12:13] LABS: BASOPHILS % (AUTO) 0.7 % (0.0-2.0); EOSINOPHILS % (AUTO) 2.7 % (0.0-3.0); HEMATOCRIT 30.9 % (37.0-47.0); HEMOGLOBIN 10.6 G/DL (12.0-16.0); LYMPHOCYTES % (AUTO) 10.1 % (20.0-45.0); MEAN CORPUSCULAR VOLUME 90 FL (80-99); NEUTROPHILS % (AUTO) 81.6 % (45.0-75.0); PLATELET COUNT 135 K/UL (150-450); RED BLOOD COUNT 3.43 M/UL (4.20-5.40); RED CELL DISTRIBUTION WIDTH 12.5 % (11.6-14.8); WHITE BLOOD COUNT 8.1 K/UL (4.8-10.8)
[2019-02-06 12:22] LABS: ANION GAP 8 mmol/L (5-15); BLOOD UREA NITROGEN 26 mg/dL (7-18); CALCIUM 9.1 MG/DL (8.5-10.1); CARBON DIOXIDE 29 MMOL/L (21-32); CHLORIDE 102 MMOL/L (98-107); CREATININE 0.7 MG/DL (0.55-1.30); POTASSIUM 3.7 MMOL/L (3.5-5.1); SODIUM 139 MMOL/L (136-145)
--- NOTE | 2019-02-06 12:34 | Diagnostic Imaging Report ---
Indication: Dyspnea Comparison: 01/21/2019 A single view chest radiograph was obtained. Findings: The lungs are hyperexpanded. Cardiomegaly is present. No definite infiltrate identified. IMPRESSION: No change from prior study. Cardiomegaly. COPD
[2019-02-06 12:36] LABS: ALANINE AMINOTRANSFERASE 25 U/L (12-78); ALBUMIN 3.3 G/DL (3.4-5.0); ALBUMIN/GLOBULIN RATIO 0.8 (1.0-2.7); ALKALINE PHOSPHATASE 99 U/L (46-116); ASPARTATE AMINO TRANSFERASE 24 U/L (15-37); BILIRUBIN,TOTAL 0.4 MG/DL (0.2-1.0)
--- NOTE | 2019-02-06 13:00 | NUR ---
ED Nurse Note: RT here to administer hhn. pt remains without increased dyspnea.
--- NOTE | 2019-02-06 13:34 | Emergency Room Report ---
History of Present Illness General Chief Complaint: Dyspnea/Respdistress Source: Patient, Medical Record, EMS Present Illness HPI Patient is a 84-year-old female presented after increased difficulty with breathing. Patient acute onset of symptoms. Had prior history of COPD. Patient was noted to have shortness of breath at rest. She reports having some pain to her left knee. Patient was given a breathing treatment by EMS.Patient was noted to have worsening shortness of breath. She reports having some chest tightness. She denies any fever. Patient has been taking inhaler without improvement. Patient had worsening of symptoms this morning. Allergies: Uncoded Allergies: Canned Food (Allergy, Unknown, 03/22/18) Nausea/Vomitting/Indigestion Patient History Past Medical History: see triage record Reviewed Nursing Documentation: PMH: Agreed; PSxH: Agreed Nursing Documentation-PMH Past Medical History: No History, Except For Hx Cardiac Problems: Yes Hx Hypertension: Yes Hx Asthma: Yes Hx COPD: Yes Hx Cancer: No Hx Gastrointestinal Problems: Yes Hx Neurological Problems: Yes Hx Cerebrovascular Accident: Yes Hx Transient Ischemic Attacks: Yes Hx Seizures: Yes Hx Epilepsy: Yes Review of Systems All Other Systems: negative except mentioned in HPI Physical Exam Vital Signs Date Time Temp Pulse Resp B/P (MAP) Pulse Ox O2 Delivery O2 Flow Rate FiO2 02/06/19 11:07 98.4 92 20 136/72 (93) 99 Room Air 02/06/19 13:00 21 Sp02 EP Interpretation: reviewed, normal General Appearance: normal inspection, well appearing, no apparent distress, alert, GCS 15 Head: atraumatic ENT: normal ENT inspection, hearing grossly normal, normal voice Neck: normal inspection, full range of motion, supple, no bony tend Respiratory: normal inspection, no respiratory distress, no retraction, accessory muscle use, wheezing Cardiovascular #1: regular rate, rhythm, no edema Gastrointestinal: normal inspection, normal bowel sounds, non tender, soft, no guarding, no hernia Genitourinary: no CVA tenderness Musculoskeletal: normal inspection, back normal, normal range of motion Neurologic: normal inspection, alert, oriented x3, responsive, circuit manager III-XII nml as tested, speech normal Psychiatric: normal inspection, judgement/insight normal, mood/affect normal Skin: normal inspection, normal color, no rash Medical Decision Making Diagnostic Impression: Primary Impression: COPD exacerbation Additional Impressions: Chronic back pain Seizure disorder ER Course Presented for shortness of breath. Differential diagnosis include was not limited to COPD, pulmonary embolism, CHF among others. Because of complexity of patient's case laboratory testing and imaging studies were ordered. Chest x- ray 1 view read by radiology showed granulomatous disease versus cartilage calcification in the left lung apex as well as suspected COPD. Patient was given breathing treatments as well as IV steroids. She started on supple mental oxygen. She was noted to have some significant dyspnea. EKG interpreted by me showed normal sinus rhythm with a rate of [address] or T wave changes. Patient be admitted for further breathing treatments and management of COPD.Patient was discussed with Dr. Garcia for inpatient management due to continued difficulty breathing Labs Test 02/06/19 11:40 White Blood Count 8.1 K/UL (4.8-10.8) Red Blood Count 3.43 M/UL (4.20-5.40) Hemoglobin 10.6 G/DL (12.0-16.0) Hematocrit 30.9 % (37.0-47.0) Mean Corpuscular Volume 90 FL (80-99) Mean Corpuscular Hemoglobin 30.9 PG (27.0-31.0) Mean Corpuscular Hemoglobin Concent 34.3 G/DL (32.0-36.0) Red Cell Distribution Width 12.5 % (11.6-14.8) Platelet Count 135 K/UL (150-450) Mean Platelet Volume 6.1 FL (6.5-10.1) Neutrophils (%) (Auto) 81.6 % (45.0-75.0) Lymphocytes (%) (Auto) 10.1 % (20.0-45.0) Monocytes (%) (Auto) 5.0 % (1.0-10.0) Eosinophils (%) (Auto) 2.7 % (0.0-3.0) Basophils (%) (Auto) 0.7 % (0.0-2.0) Sodium Level 139 MMOL/L (136-145) Potassium Level 3.7 MMOL/L (3.5-5.1) Chloride Level 102 MMOL/L (98-107) Carbon Dioxide Level 29 MMOL/L (21-32) Anion Gap 8 mmol/L (5-15) Blood Urea Nitrogen 26 mg/dL (7-18) Creatinine 0.7 MG/DL (0.55-1.30) Estimat Glomerular Filtration Rate mL/min (>60) Glucose Level 100 MG/DL (74-106) Calcium Level 9.1 MG/DL (8.5-10.1) Total Bilirubin 0.4 MG/DL (0.2-1.0) Aspartate Amino Transf (AST/SGOT) 24 U/L (15-37) Alanine Aminotransferase (ALT/SGPT) 25 U/L (12-78) Alkaline Phosphatase 99 U/L (46-116) Troponin I 0.027 ng/mL (0.000-0.056) Pro-B-Type Natriuretic Peptide 91 pg/mL (0-125) Total Protein 7.4 G/DL (6.4-8.2) Albumin 3.3 G/DL (3.4-5.0) Globulin 4.1 g/dL Albumin/Globulin Ratio 0.8 (1.0-2.7) Last Vital Signs Date Time Temp Pulse Resp B/P (MAP) Pulse Ox O2 Delivery O2 Flow Rate FiO2 02/06/19 13:25 95 20 100 Room Air 21 02/06/19 11:07 98.4 136/72 (93) Status: unchanged Disposition: ADMITTED INPATIENT Condition: Serious Referrals: NON PHYSICIAN (PCP) Miko Pyle MD Feb 06, 2019 13:34
--- NOTE | 2019-02-06 14:07 | NUR ---
ED Nurse Note: PT reeval by , remains with wheezes throughout. pt anxious affect reassurance given. pt made aware of plan to be admit to hospital for further treatment.. remains a/ox4
[2019-02-06] MEDS ORDERED: LORazepam Inj 2mg/ml 1ml IV PRN (14:30)
[2019-02-06] MEDS ORDERED: Lidocaine 1% MPF 10mg/ml 5ml HHN PRN (14:30)
[2019-02-06] MEDS ORDERED: Nitroglycerin Subl 0.4mg tab SL PRN (14:30)
[2019-02-06] MEDS ORDERED: Morphine Sulfate 2mg/ml Inj(IV/IM USE ONLY) IVP PRN (14:30)
[2019-02-06 15:00] VITALS: BP 110/50
--- NOTE | 2019-02-06 15:00 | NUR ---
ED Nurse Note: pt given hhn by RT. pt tolerates well. remains at her normal mentation. pt desires to be sitting up at bs in chair as it feels easier for her.
[2019-02-06 16:00] VITALS: BP 113/55
[2019-02-06] MEDS: Zosyn 3.375gm q8h **Extended infusion IVPB SCH ×4 (16:41→23:43)
--- NOTE | 2019-02-06 16:52 | NUR ---
ED Nurse Note: report given to tele rn discharge. awaits pt. pt rleates iv site hurting with abx started. abx stopped and iv site d/c'd.
--- NOTE | 2019-02-06 17:15 | NUR ---
ED Nurse Note: pt transported to tele with acls protocol and rn.
--- NOTE | 2019-02-06 17:20 | NUR ---
NURSE NOTES: Patient transferred from Ed via gurney. Report received from Digna/AMMY. Patient awake and alert, No sign of distress/SOB noted at this time. Vitals are stable, Temp. 97.8, B/P 143/72, HR 101 RR 20, O2 stat 94%. Bed in low position and locked. Call light within reach. Will continue plan of care.
[2019-02-06] MEDS: Solu-MEDROL 125mg Inj IV SCH ×2 (18:44→23:42)
--- NOTE | 2019-02-06 19:40 | NUR ---
HAND-OFF: Report given to Yahir/RN, Patient awake and alert, No sign of distress, In stable condition. Endorsed plan of care.
--- NOTE | 2019-02-06 19:41 | NUR ---
NURSE NOTES: Got report from Love RN. Pt in stable condition. Denies any pain. No s/s of distress or discomfort noted. Pt resting in bed comfortably. Bed in low and locked position, call light within reach, bedside table within reach. Continue to monitor.
[2019-02-06 20:00] VITALS: BP 145/80
[2019-02-06] MEDS: Heparin 5000 units/ml inj SUBQ SCH (21:00)
[2019-02-06] MEDS: Theophylline ER 100mg ORAL SCH (21:07)
[2019-02-06] MEDS ORDERED: Piperacillin/Tazobactam 2.25 GM in D5W 55 ML IV SCH (22:00)
[2019-02-06] MEDS: Albuterol/Ipratropium 3ml neb HHN PRN (23:18)
[2019-02-07] VITALS (7 sets, daily range): BP systolic 121–179; BP diastolic 69–92
[2019-02-07] MEDS: Promethazine/Codeine 5ml UD ORAL PRN ×3 (04:10→20:41)
[2019-02-07] MEDS: Solu-MEDROL 125mg Inj IV SCH ×3 (06:22→18:13)
[2019-02-07] MEDS: Zosyn 3.375gm q8h **Extended infusion IVPB SCH ×6 (06:22→21:47)
[2019-02-07] MEDS: Albuterol/Ipratropium 3ml neb HHN PRN ×4 (06:55→20:02)
--- NOTE | 2019-02-07 07:00 | NUR ---
HAND-OFF: Report given to Rajinder GIMENEZ. Endorsed plan of care.
--- NOTE | 2019-02-07 07:15 | NUR ---
NURSE NOTES: Report received from Arin Garcia RN.Pt awake,alert oriented,,noted no resp distress on RA,no signs of pain or discomfort S-tach on the monitor,ambulates to the bathroom per self with steady gait,IV site to LFA inract,skin warm and dry,call muniz within reach at bedside,bed lock in lowest position,SR up will continue with plans of care.
[2019-02-07] MEDS: Theophylline ER 100mg ORAL SCH ×2 (08:26→20:33)
[2019-02-07] MEDS: Heparin 5000 units/ml inj SUBQ SCH ×2 (08:33→20:36)
--- NOTE | 2019-02-07 11:00 | NUR ---
NURSE NOTES: pt stable,sitting up on chair watching TV program,no resp distress noted .
--- NOTE | 2019-02-07 11:54 | Consultation ---
History of Present Illness General Chief Complaint: Dyspnea/Respdistress Present Illness HPI 84-year-old female with history of HTN, refractory asthma, CVA/TIA, seizures presents to ED for evaluation for shortness of breath. Her neighbor apparently called the paramedics. Patient states she feels a little better but still feels very short of breath. States she's been using her inhaler at home without significant relief. she has persistent cough. Denies chest pain. she received one dose of solumedrol in ER and admitted for further management. Allergies: Uncoded Allergies: Canned Food (Allergy, Unknown, 03/22/18) Nausea/Vomitting/Indigestion Medication History Scheduled Albuterol Sulfate (Ventolin Hfa), 1 PUFF INH EVERY 6 HOURS Amlodipine Besylate* (Amlodipine Besylate*), 5 MG ORAL DAILY, (Reported) Atorvastatin (Lipitor), 40 MG ORAL DAILY, (Reported) Baclofen* (Baclofen*), 10 MG ORAL DAILY, (Reported) Budesonide (Pulmicort), 0.25 MG HHN EVERY 12 HOURS Clopidogrel* (Clopidogrel*), 75 MG ORAL DAILY, (Reported) Dexlansoprazole (Dexilant), 60 MG ORAL DAILY, (Reported) Isosorbide Dinitrate* (Isordil*), 30 MG ORAL DAILY, (Reported) Labetalol Hcl* (Normodyne*), 100 MG ORAL EVERY 12 HOURS, (Reported) Levocetirizine Dihydrochloride (Levocetirizine Dihydrochloride), 5 MG ORAL DAILY , (Reported) Levofloxacin (Levofloxacin*), 500 MG ORAL DAILY, (Reported) Lidocaine (Xylocaine-Mpf 1% Vial), 10 ML INJ Q8HR, (Reported) Losartan/Hydrochlorothiazide (Losartan-Hctz 100-12.5 Mg Tab), 1 TAB ORAL DAILY, (Reported) Methylprednisolone (Methylprednisolone*), 4 MG ORAL DIRECTED Montelukast Sodium* (Montelukast Sodium*), 10 MG ORAL DAILY, (Reported) No Known Medications* (NKM - No Known Medications*), 0 ., (Reported) Phenytoin Sodium Extended* (Phenytoin Sodium Extended*), 100 MG ORAL BID, ( Reported) Pregabalin (Lyrica), 50 MG ORAL DAILY, (Reported) [Levofloxacin 250mg], 250 MG ORAL DAILY Miscellaneous Medications Amoxapine (Amoxapine), 25 MG ORAL, (Reported) Unable to Obtain Medications (Unable To Obtain Meds), (Reported) [Bevespi], (Reported) Patient History Healthcare decision maker N Resuscitation status Full Code Advanced Directive on File Past Medical/Surgical History Past Medical/Surgical History: (1) Chronic back pain (2) HTN (hypertension) (3) GERD (gastroesophageal reflux disease) (4) CAD (coronary artery disease) (5) Seizure disorder (6) Cerebral vascular disease (7) Vascular dementia (8) Allergic asthma Review of Systems Respiratory: Reports: shortness of breath, wheezing Physical Exam General Appearance: WD/WN, no apparent distress Lines, tubes and drains: peripheral HEENT: normocephalic, atraumatic Neck: non-tender, normal alignment Respiratory/Chest: chest wall non-tender, lungs clear Breasts: no masses Cardiovascular/Chest: normal peripheral pulses Abdomen: normal bowel sounds, non tender Genitourinary/Rectal: normal genital exam Extremities: normal range of motion Skin Exam: normal pigmentation Neurologic: research professor of biostatistics II-XII grossly normal Last 24 Hour Vital Signs Date Time Temp Pulse Resp B/P (MAP) Pulse Ox O2 Delivery O2 Flow Rate FiO2 02/07/19 11:02 80 20 95 Room Air 21 02/07/19 08:00 98.9 68 20 142/69 (93) 93 02/07/19 07:05 95 20 100 Room Air 21 02/07/19 06:56 84 20 95 Room Air 21 02/07/19 06:56 97 Room Air 21 02/07/19 04:20 98.0 85 20 137/85 (102) 96 02/07/19 04:19 98.1 93 20 156/78 (104) 96 02/07/19 04:00 84 02/07/19 00:58 Room Air 02/07/19 00:30 97.9 20 156/78 (104) 95 02/07/19 00:00 95 02/06/19 23:21 93 20 98 Nasal Cannula 2.0 28 02/06/19 23:18 97 Nasal Cannula 2.0 28 02/06/19 23:08 96 20 97 Nasal Cannula 2.0 28 02/06/19 20:00 99 02/06/19 20:00 98.0 20 145/80 (101) 96 02/06/19 17:51 Room Air 02/06/19 17:03 101 22 113/55 95 Room Air 02/06/19 16:00 101 22 113/55 95 Room Air 02/06/19 15:00 106 22 110/50 95 Simple Mask 10.0 02/06/19 13:25 95 20 100 Room Air 21 02/06/19 13:25 80 20 99 Room Air 21 02/06/19 13:15 84 20 95 Room Air 21 02/06/19 13:00 90 22 97 Room Air 21 02/06/19 13:00 90 22 97 Room Air 21 Intake and Output 02/06/19 02/07/19 19:00 07:00 Intake Total 350 ml Balance 350 ml Intake Oral 240 ml IV Total 110 ml # Voids 2 # Bowel Movements 1 Height (Feet): 5 Height (Inches): 4.00 Weight (Pounds): 150 Medications Current Medications Medications (Trade) Dose Ordered Sig/[place] Route PRN Reason Start Time Stop Time Status Last Admin Dose Admin Albuterol/ Ipratropium (Albuterol/ Ipratropium) 3 ml Q4H PRN HHN dyspnea 02/06/19 14:30 02/11/19 14:29 02/07/19 11:05 Dextrose (Dextrose 50%) 25 ml Q30M PRN IV Hypoglycemia 02/06/19 15:30 03/08/19 15:29 Dextrose (Dextrose 50%) 50 ml Q30M PRN IV Hypoglycemia 02/06/19 15:30 03/08/19 15:29 Heparin Sodium (Porcine) (Heparin 5000 units/ml) 5,000 units EVERY 12 HOURS SUBQ 02/06/19 21:00 03/08/19 20:59 02/07/19 08:33 Lidocaine (Xylocaine 1% MPF 5ml) 10 ml Q4H PRN HHN persistent cough 02/06/19 14:30 03/08/19 14:29 Lorazepam (Ativan 2mg/ml 1ml) 0.5 mg Q4H PRN IV For Anxiety 02/06/19 14:30 02/13/19 14:29 Methylprednisolone Sodium Succinate (Solu-MEDROL) 60 mg EVERY 6 HOURS IV 02/06/19 18:00 03/08/19 17:59 02/07/19 06:22 Morphine Sulfate (Morphine Sulfate) 2 mg Q4H PRN IVP Severe Pain (Pain Scale 7-10) 02/06/19 14:30 02/13/19 14:29 Nitroglycerin (Ntg) 0.4 mg Q5M X 3 DOSES PRN SL Prn Chest Pain 02/06/19 14:30 03/08/19 14:29 Ondansetron HCl (Zofran) 4 mg Q6H PRN IVP Nausea & Vomiting 02/06/19 14:30 03/08/19 14:29 Piperacillin Sod/ Tazobactam Sod 3.375 gm/Sodium Chloride 110 ml @ 27.5 mls/hr EVERY 8 HOURS IVPB 02/06/19 16:00 02/11/19 15:59 02/07/19 06:22 Promethazine HCl/ Codeine (Phenergan with Codeine) 5 ml Q6H PRN ORAL cough 02/06/19 14:30 03/08/19 14:29 02/07/19 04:10 Temazepam (Restoril) 15 mg HSPRN PRN ORAL Insomnia 02/06/19 21:00 02/13/19 20:59 02/06/19 21:07 Theophylline (Fabrice-Dur) 100 mg EVERY 12 HOURS ORAL 02/06/19 21:00 03/08/19 20:59 02/07/19 08:26 Assessment/Plan Problem List: (1) Acute asthma exacerbation ICD Codes: J45.901 - Unspecified asthma with (acute) exacerbation SNOMED: 507717800 (2) Acute respiratory failure ICD Codes: J96.00 - Acute respiratory failure, unspecified whether with hypoxia or hypercapnia SNOMED: 20089850 (3) Allergic asthma ICD Codes: J45.909 - Unspecified asthma, uncomplicated SNOMED: 011236040, 628005227 (4) Chronic back pain ICD Codes: M54.9 - Dorsalgia, unspecified; G89.29 - Other chronic pain SNOMED: 064898328 (5) Seizure disorder ICD Codes: G40.909 - Epilepsy, unspecified, not intractable, without status epilepticus SNOMED: 103217034 (6) Cerebral vascular disease ICD Codes: I67.9 - Cerebrovascular disease, unspecified SNOMED: 04570998 (7) GERD (gastroesophageal reflux disease) ICD Codes: K21.9 - Gastro-esophageal reflux disease without esophagitis SNOMED: 014170321 (8) CAD (coronary artery disease) ICD Codes: I25.10 - Atherosclerotic heart disease of [place] coronary artery without angina pectoris SNOMED: 03322663 (9) Vascular dementia ICD Codes: F01.50 - Vascular dementia without behavioral disturbance SNOMED: 620973456 (10) HTN (hypertension) ICD Codes: I10 - Essential (primary) hypertension SNOMED: 00907571 Assessment/Plan: respiratory treatment check sputum titrate fio2 to sat of 92% Lidocaine inhalation for severe cough taper steroids as pt improves dvt prophylaxis check electrolytes. Luis A Juares MD Feb 07, 2019 11:54
--- NOTE | 2019-02-07 13:41 | NUR ---
CASE MANAGEMENT:REVIEW 84 YR OLD FEMALE BIBA FROM HOME CC: SOB SI: COPD EXACERBATION 98.4 92 20 136/72 99% ON RA H/H-10.6/30.9 PLT-135 BUN+26 IS: HHN GIVEN EN ROUTE PLACED ON 10L/MASK DUONEB HHN X2 IV SOLUMEDROL CHEST XRAY : TO TELEMETRY UNIT INTERQUAL CRITERIA MET
--- NOTE | 2019-02-07 14:00 | NUR ---
NURSE NOTES: Pt c/o coughing, requested for a cough medic,no resp distress or sob noted,will continue to monitor pt.
--- NOTE | 2019-02-07 17:27 | NUR ---
NURSE NOTES: Pt taking a nap ,asleep in bed noted no resp distress.
--- NOTE | 2019-02-07 19:06 | NUR ---
: HAND-OFF: Report given to Myrtle Roldan RN,pt sitting up on chair no resp distress noted.
--- NOTE | 2019-02-07 19:07 | NUR ---
NURSE NOTES: Patient stable,no c/o pain,no respiratory distress noted,ambulatory stable,walking w/no assistance,SR on customer experience associate,tolerated r/air well,skin intact,IV on L wrist asymptomatic,intact 20 G SL,bed in a low safety position,call light within a reach,will continue to monitor and follow POC.
--- NOTE | 2019-02-07 19:07 | NUR ---
NURSE NOTES: Received bedside report from AMMY Dean.PAtient stable
--- NOTE | 2019-02-07 19:12 | History & Physical ---
History and Physical History & Physicial Dictated for Int Med-Dr Garcia no. [id number]. Hank Toure MD Feb 07, 2019 19:12
[2019-02-08] VITALS (7 sets, daily range): BP systolic 124–171; BP diastolic 63–91
--- NOTE | 2019-02-08 00:15 | History and Physical Report ---
DATE OF ADMISSION: 02/06/2019 CHIEF COMPLAINT: The patient is an 84-year-old female, who presents with a chief complaint of shortness of breath. HISTORY OF PRESENT ILLNESS: The patient has a history of asthma. The patient was admitted to [facility] on 01/17/2019 to 01/22/2019 for asthma exacerbation with bronchitis. The patient began to experience shortness of breath on 02/05/2019. It became worse on the morning of 02/06/2019. The patient presented to [place] emergency room. The patient was found to be short of breath at rest. The patient is admitted for shortness of breath and asthma exacerbation. REVIEW OF SYSTEMS: CONSTITUTIONAL: The patient denies weight loss or weight gain. The patient denies fevers or chills. HEENT: The patient denies ear or throat pain. The patient denies headache. CARDIOVASCULAR: The patient denies palpitations or chest pain. CHEST: The patient complains of shortness of breath as above. The patient complains of wheezing. ABDOMEN: The patient denies nausea, vomiting, diarrhea, or constipation. GENITOURINARY: The patient denies dysuria or increased frequency of urination. NEUROMUSCULAR: The patient denies seizures or generalized weakness. PAST MEDICAL HISTORY: Significant for: 1. Asthma. 2. History of hemorrhagic cerebrovascular accident. 3. Hypertension. 4. Hypercholesterolemia. 5. Gastroesophageal reflux disease. 6. Seizure disorder. 7. Coronary artery disease, status post stent placement in November of 2017. PAST SURGICAL HISTORY: Significant for: 1. Appendectomy. 2. Cardiac catheterization in November of 2017 with stent placement. CURRENT MEDICATIONS: 1. Albuterol metered-dose inhaler two puffs p.o. q.6 hours p.r.n. 2. Amlodipine 5 mg p.o. daily. 3. Amoxapine 25 mg p.o. daily. 4. Atorvastatin 40 mg p.o. daily. 5. Baclofen 10 mg p.o. daily. 6. Pulmicort nebulized twice daily. 7. Clopidogrel 75 mg p.o. daily. 8. Dexilant 60 mg p.o. daily. 9. Isordil 30 mg p.o. daily. 10. Labetalol 100 mg p.o. twice daily. 11. Zyrtec 5 mg p.o. daily. 12. Losartan/hydrochlorothiazide 100/12.5 one tablet p.o. daily. 13. Prednisone 4 mg p.o. daily. 14. Singulair 10 mg p.o. daily. 15. Dilantin 100 mg p.o. twice daily. 16. Lyrica 50 mg p.o. daily. ALLERGIES: No known drug allergies. SOCIAL HISTORY: The patient is single and lives alone. The patient denies tobacco use. The patient denies alcohol use. PHYSICAL EXAMINATION: VITAL SIGNS: Temperature 98.9, respirations 20, pulse 60, and blood pressure 142/69. GENERAL: The patient is a well-developed and well-nourished female, in no apparent distress. HEENT: Eyes, pupils are equal and responsive to light and accommodation. Extraocular movements are intact. NECK: Supple without lymphadenopathy. CHEST: Few diffuse wheezes in bilateral lung perez. Otherwise, clear to auscultation without rales. CARDIOVASCULAR: Regular rhythm and rate. S1, S2 are normal without murmurs, rubs, or gallops. ABDOMEN: Soft, nontender, and nondistended. Positive bowel sounds. No evidence of hepatosplenomegaly. Currently, no rebound or guarding noted. EXTREMITIES: Negative for clubbing, cyanosis, or edema. RECTAL/GENITAL: Refused. NEUROLOGIC: Cranial nerves II through XII are grossly intact without focal deficits. Motor strength is 5/5 bilaterally. Deep tendon reflexes are 2+ plantar. LABORATORY STUDIES: WBC 8.1, hemoglobin 10.6, hematocrit 30.9, and platelets 135,000. Sodium 139, potassium 3.7, chloride 102, CO2 29, BUN 26, creatinine 0.7, and glucose 100. Troponin 0.027. Chest x-ray is reported as no acute disease. ASSESSMENT: This is an 84-year-old female. 1. Shortness of breath. 2. Acute asthma exacerbation. 3. Cerebrovascular disease. 4. Hypertension. 5. Hypercholesterolemia. 6. Gastroesophageal reflux disease. 7. Seizure disorder. 8. Coronary artery disease. TREATMENT: 1. Shortness of breath/asthma. A Pulmonary consultation has been obtained with Dr. Luis A Juares. The patient is currently receiving Solu-Medrol intravenously. The patient has been placed on Zosyn for probable bronchitis. The patient is receiving albuterol/Atrovent nebulized q.4 hours p.r.n. We will follow recommendation of Pulmonary. 2. Cerebrovascular disease. 3. Hypertension. Continue losartan, hydrochlorothiazide, and amlodipine as above. 4. Hypercholesterolemia. Continue atorvastatin as above. 5. Gastroesophageal reflux disease. The patient has been placed on Protonix. 6. Seizure disorder. Continue Dilantin as above. 7. Coronary artery disease. Continue Plavix as above. Hank Toure M.D. DR: YAO JOB#: [id number] CC:
[2019-02-08] MEDS: Solu-MEDROL 125mg Inj IV SCH ×4 (00:17→17:32)
[2019-02-08] MEDS: Albuterol/Ipratropium 3ml neb HHN PRN ×5 (01:44→23:11)
--- NOTE | 2019-02-08 02:09 | NUR ---
RESPIRATORY NOTE: CPT was given to pt while on her breathing treatment. Did CPT on pt. dorsal side (upper, middle, lower) for 5 minutes. Pt. wanted 'CPT' on her butt and legs but was refused by RT. Explained to her what CPT means and how CPT is done. AMMY platt.
[2019-02-08] MEDS: Zosyn 3.375gm q8h **Extended infusion IVPB SCH ×2 (05:50)
--- NOTE | 2019-02-08 07:25 | NUR ---
HAND-OFF: Report given to AMMY Troy.Patient stable,sitting in a chair.
--- NOTE | 2019-02-08 07:47 | NUR ---
NURSE NOTES: Patient is alert and oriented. Patient is sitting up in chair. No reports of discomfort at the moment. Patient is on 2 liters oxygen via nasal cannula. Call light is within reach. Will continue to monitor.
[2019-02-08] MEDS: Theophylline ER 100mg ORAL SCH ×2 (08:25→20:49)
[2019-02-08] MEDS: Heparin 5000 units/ml inj SUBQ SCH ×2 (08:26→20:51)
--- NOTE | 2019-02-08 10:46 | NUR ---
NURSE NOTES: Patient noted with elevated BP 171/82. Dr. Juares notified. New order received.
--- NOTE | 2019-02-08 11:21 | NUR ---
NURSE NOTES: Patient transferred to 3E room 303-1. Report given to AMMY Villanueva for continuity of care.
--- NOTE | 2019-02-08 11:25 | NUR ---
NURSE NOTES: Patient transferred from [facility]. Patient a/o x 4, Frisian speaking lady. No respiratory distress noted. Pt keep O2 2l/min. Denies any pain at this time. Orientation for unit was given to pt. Bed in lowest position, call light within reach. Will continue to monitor.
[2019-02-08] MEDS ORDERED: Nitroglycerin Subl 0.4mg tab SL PRN (11:30)
[2019-02-08] MEDS ORDERED: LORazepam Inj 2mg/ml 1ml IV PRN (11:41)
[2019-02-08] MEDS ORDERED: Morphine Sulfate 2mg/ml Inj(IV/IM USE ONLY) IVP PRN (11:41)
[2019-02-08] MEDS ORDERED: Lidocaine 1% MPF 10mg/ml 5ml HHN PRN (11:41)
[2019-02-08] MEDS: Piperacillin/Tazobactam 3.375 GM in NS 110 ML IVPB SCH ×2 (14:06→22:04)
--- NOTE | 2019-02-08 15:03 | NUR ---
NURSE NOTES: Patient refused drawing lab and Dr. Juares is aware.
--- NOTE | 2019-02-08 15:04 | Pulmonology Progress Note ---
Assessment/Plan Problems: (1) Acute asthma exacerbation (2) Acute respiratory failure (3) Allergic asthma (4) Chronic back pain (5) Seizure disorder (6) Cerebral vascular disease (7) GERD (gastroesophageal reflux disease) (8) CAD (coronary artery disease) (9) Vascular dementia (10) HTN (hypertension) Assessment/Plan add dilantin and lyrica same dose of steroids respiratory treatment on theophylline titrate fio2 to sat of 92% dvt prophylaxis. Subjective ROS Limited/Unobtainable: No Constitutional: Reports: no symptoms HEENT: Repors: no symptoms Allergies: Uncoded Allergies: Canned Food (Allergy, Unknown, 03/22/18) Nausea/Vomitting/Indigestion Objective Last 24 Hour Vital Signs Date Time Temp Pulse Resp B/P (MAP) Pulse Ox O2 Delivery O2 Flow Rate FiO2 02/08/19 12:00 98.7 90 20 137/76 (96) 97 02/08/19 11:02 152/85 (107) 02/08/19 10:45 170/82 02/08/19 09:00 Room Air 02/08/19 08:30 98 18 100 Nasal Cannula 2.0 28 02/08/19 08:23 97 18 97 Nasal Cannula 2.0 28 02/08/19 08:22 97 Nasal Cannula 2.0 28 02/08/19 08:21 97 18 97 Nasal Cannula 2.0 28 02/08/19 08:00 98.7 97 20 171/84 (113) 98 02/08/19 08:00 98 02/08/19 04:05 82 02/08/19 04:00 98.4 89 18 165/91 (115) 97 02/08/19 01:59 72 20 98 Nasal Cannula 2.0 28 02/08/19 01:46 68 20 95 Nasal Cannula 2.0 28 02/08/19 00:00 95 02/08/19 00:00 97.4 92 18 153/87 (109) 98 02/07/19 20:04 95 Room Air 21 02/07/19 20:02 84 20 97 Nasal Cannula 2.0 28 02/07/19 20:00 98.6 95 20 179/92 (121) 97 02/07/19 19:07 95 02/07/19 16:00 105 02/07/19 16:00 98.9 84 20 152/79 (103) 93 02/07/19 15:05 92 20 100 Room Air 21 Intake and Output 02/07/19 02/08/19 19:00 07:00 Intake Total 280 ml 230.0 ml Balance 280 ml 230.0 ml Intake Oral 280 ml 120 ml IV Total 110.0 ml # Voids 3 General Appearance: WD/WN HEENT: normocephalic, atraumatic Respiratory/Chest: chest wall non-tender, lungs clear Breasts: no masses Cardiovascular: normal peripheral pulses Abdomen: normal bowel sounds, no organomegaly Genitourinary: normal external genitalia Skin: no rash 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 Complete 02/06/19 17:20 Rectal Mucosa VRE Culture - Final NO VANCOMYCIN RESISTANT ENTEROCOCCUS ... Complete 02/06/19 17:20 Rectal Mucosa - Final NO CARBAPENEM-RESISTANT ENTEROBACTERI... Complete Current Medications Medications (Trade) Dose Ordered Sig/Mecca Route PRN Reason Start Time Stop Time Status Last Admin Dose Admin Albuterol/ Ipratropium (Albuterol/ Ipratropium) 3 ml Q4H PRN HHN dyspnea 02/08/19 11:41 02/13/19 11:40 Clonidine HCl (Catapres Tab) 0.1 mg Q6H PRN ORAL For High Blood Pressure 02/08/19 11:40 03/10/19 11:39 Dextrose (Dextrose 50%) 25 ml Q30M PRN IV Hypoglycemia 02/08/19 11:30 03/08/19 15:29 Dextrose (Dextrose 50%) 50 ml Q30M PRN IV Hypoglycemia 02/08/19 11:30 03/08/19 15:29 Heparin Sodium (Porcine) (Heparin 5000 units/ml) 5,000 units EVERY 12 HOURS SUBQ 02/08/19 21:00 03/08/19 20:59 Lidocaine (Xylocaine 1% MPF 5ml) 10 ml Q4H PRN HHN persistent cough 02/08/19 11:41 03/10/19 11:40 Lorazepam (Ativan 2mg/ml 1ml) 0.5 mg Q4H PRN IV For Anxiety 02/08/19 11:41 02/15/19 11:40 Methylprednisolone Sodium Succinate (Solu-MEDROL) 60 mg EVERY 6 HOURS IV 02/08/19 12:00 03/08/19 17:59 02/08/19 12:03 Morphine Sulfate (Morphine Sulfate) 2 mg Q4H PRN IVP Severe Pain (Pain Scale 7-10) 02/08/19 11:41 02/15/19 11:40 Nitroglycerin (Ntg) 0.4 mg Q5M X 3 DOSES PRN SL Prn Chest Pain 02/08/19 11:30 03/08/19 14:29 Ondansetron HCl (Zofran) 4 mg Q6H PRN IVP Nausea & Vomiting 02/08/19 11:41 03/10/19 11:40 Piperacillin Sod/ Tazobactam Sod 3.375 gm/Sodium Chloride 110 ml @ 27.5 mls/hr EVERY 8 HOURS IVPB 02/08/19 14:00 02/11/19 15:59 02/08/19 14:06 Promethazine HCl/ Codeine (Phenergan with Codeine) 5 ml Q6H PRN ORAL cough 02/08/19 11:41 03/10/19 11:40 Temazepam (Restoril) 15 mg HSPRN PRN ORAL Insomnia 02/08/19 11:42 02/15/19 11:41 Theophylline (Fabrice-Dur) 100 mg EVERY 12 HOURS ORAL 02/08/19 21:00 03/08/19 20:59 Luis A Juares MD Feb 08, 2019 15:04
--- NOTE | 2019-02-08 15:31 | NUR ---
NURSE NOTES: Dr. Juares ordered artificial tear q4 prn for eye drop. Noted and carried out.
[2019-02-08] MEDS: Lyrica 50mg cap ORAL SCH (15:41)
--- NOTE | 2019-02-08 15:54 | NUR ---
NURSE NOTES: Patient wants to take montelukast 10mg daily, dexilant 60mg daily, plavix 75mg daily, amlodipine [address]mg daily[address] Juares was notified and ordered continue meds.
[2019-02-08] MEDS: Montelukast 10mg tablet ORAL SCH (16:24)
[2019-02-08] MEDS: Promethazine/Codeine 5ml UD ORAL PRN (16:24)
--- NOTE | 2019-02-08 16:27 | NUR ---
CASE MANAGEMENT:REVIEW 02/08/19 SI: ACUTE ASTHMA EXACERBATION 98.7 90 20 137/76 97% ON 2L/NC IS: IV ZOSYN Q8HRS IV SOLUMEDROL Q6HRS NORVASC PO QD PLAVIX PO QD PROTONIX PO QD HEPARIN SQ Q12 MARCIAL-DUR PO Q12 DILANTIN PO Q12 : TRANSFER FROM TELEMETRY TO MED[facility]
--- NOTE | 2019-02-08 19:35 | NUR ---
HAND-OFF: Report given to AMMY Gudino. Patient is stable.
[2019-02-08] MEDS: Phenytoin 100mg cap ORAL SCH (20:49)
[2019-02-09] VITALS (7 sets, daily range): BP systolic 125–165; BP diastolic 77–95
[2019-02-09] MEDS: Solu-MEDROL 125mg Inj IV SCH ×5 (00:49→23:28)
[2019-02-09] MEDS: Promethazine/Codeine 5ml UD ORAL PRN ×3 (01:33→18:30)
[2019-02-09] MEDS: Albuterol/Ipratropium 3ml neb HHN PRN ×5 (03:28→23:17)
[2019-02-09] MEDS: Piperacillin/Tazobactam 3.375 GM in NS 110 ML IVPB SCH ×3 (06:19→21:18)
--- NOTE | 2019-02-09 06:21 | Pulmonology Progress Note ---
Assessment/Plan Problems: (1) Acute asthma exacerbation (2) Acute respiratory failure (3) Allergic asthma (4) Chronic back pain (5) Seizure disorder (6) Cerebral vascular disease (7) GERD (gastroesophageal reflux disease) (8) CAD (coronary artery disease) (9) Vascular dementia (10) HTN (hypertension) Assessment/Plan still coughing on dilantin and lyrica same dose of steroids for now respiratory treatment on theophylline titrate fio2 to sat of 92% dvt prophylaxis. Subjective ROS Limited/Unobtainable: No Interval Events: still a lot of coughing Allergies: Uncoded Allergies: Canned Food (Allergy, Unknown, 03/22/18) Nausea/Vomitting/Indigestion Objective Last 24 Hour Vital Signs Date Time Temp Pulse Resp B/P (MAP) Pulse Ox O2 Delivery O2 Flow Rate FiO2 02/09/19 03:28 88 18 95 Nasal Cannula 2.0 28 02/09/19 00:00 98.3 84 20 156/84 (108) 98 02/08/19 23:18 75 20 99 Nasal Cannula 2.0 02/08/19 23:11 74 18 96 Nasal Cannula 2.0 28 02/08/19 21:00 Room Air 02/08/19 20:00 97.3 87 16 139/77 (97) 99 02/08/19 19:48 84 20 99 Nasal Cannula 2.0 02/08/19 19:45 86 18 97 Nasal Cannula 2.0 02/08/19 19:45 97 Nasal Cannula 2.0 28 02/08/19 19:41 86 18 97 Nasal Cannula 2.0 02/08/19 16:00 99.5 89 20 124/63 (83) 97 02/08/19 15:15 64 20 99 Nasal Cannula 2.0 28 02/08/19 15:08 58 20 97 Nasal Cannula 2.0 28 02/08/19 12:00 98.7 90 20 137/76 (96) 97 02/08/19 11:02 152/85 (107) 02/08/19 10:45 170/82 02/08/19 09:00 Room Air 02/08/19 08:30 98 18 100 Nasal Cannula 2.0 28 02/08/19 08:23 97 18 97 Nasal Cannula 2.0 02/08/19 08:22 97 Nasal Cannula 2.0 28 02/08/19 08:21 97 18 97 Nasal Cannula 2.0 28 02/08/19 08:00 98.7 97 20 171/84 (113) 98 02/08/19 08:00 98 Intake and Output 02/08/19 02/09/19 19:00 07:00 Intake Total 480.0 ml Balance 480.0 ml Intake Oral 370 ml IV Total 110.0 ml # Voids 2 General Appearance: WD/WN, no acute distress HEENT: normocephalic, atraumatic Respiratory/Chest: chest wall non-tender, crackles/rales, rhonchi, expiratory wheezing Breasts: no masses Cardiovascular: normal peripheral pulses, regular rhythm Abdomen: normal bowel sounds, no organomegaly Genitourinary: normal external genitalia Microbiology Date/Time Source Procedure Growth Status 02/06/19 17:20 Nasal Nares MRSA Culture - Final NO METHICILLIN RESISTANT STAPH AUREUS... Complete 02/06/19 17:20 Rectal Mucosa VRE Culture - Final NO VANCOMYCIN RESISTANT ENTEROCOCCUS ... Complete 02/06/19 17:20 Rectal Mucosa - Final NO CARBAPENEM-RESISTANT ENTEROBACTERI... Complete Current Medications Medications (Trade) Dose Ordered Sig/Mecca Route PRN Reason Start Time Stop Time Status Last Admin Dose Admin Albuterol/ Ipratropium (Albuterol/ Ipratropium) 3 ml Q4H PRN HHN dyspnea 02/08/19 11:41 02/13/19 11:40 02/09/19 03:28 Amlodipine Besylate (Norvasc) 5 mg DAILY ORAL 02/09/19 09:00 03/11/19 08:59 Artificial Tears (Akwa-Tears) 1 drop Q4H PRN BOTH EYES Dry Eyes 02/08/19 15:30 03/10/19 15:29 Clonidine HCl (Catapres Tab) 0.1 mg Q6H PRN ORAL For High Blood Pressure 02/08/19 11:40 03/10/19 11:39 Clopidogrel Bisulfate (Plavix) 75 mg DAILY ORAL 02/09/19 09:00 03/11/19 08:59 Dextrose (Dextrose 50%) 25 ml Q30M PRN IV Hypoglycemia 02/08/19 11:30 03/08/19 15:29 Dextrose (Dextrose 50%) 50 ml Q30M PRN IV Hypoglycemia 02/08/19 11:30 03/08/19 15:29 Heparin Sodium (Porcine) (Heparin 5000 units/ml) 5,000 units EVERY 12 HOURS SUBQ 02/08/19 21:00 03/08/19 20:59 02/08/19 20:51 Lidocaine (Xylocaine 1% MPF 5ml) 10 ml Q4H PRN HHN persistent cough 02/08/19 11:41 03/10/19 11:40 Lorazepam (Ativan 2mg/ml 1ml) 0.5 mg Q4H PRN IV For Anxiety 02/08/19 11:41 02/15/19 11:40 Methylprednisolone Sodium Succinate (Solu-MEDROL) 60 mg EVERY 6 HOURS IV 02/08/19 12:00 03/08/19 17:59 02/09/19 00:49 Montelukast Sodium (Singulair) 10 mg QPM ORAL 02/08/19 16:30 03/10/19 16:29 02/08/19 16:24 Morphine Sulfate (Morphine Sulfate) 2 mg Q4H PRN IVP Severe Pain (Pain Scale 7-10) 02/08/19 11:41 02/15/19 11:40 Nitroglycerin (Ntg) 0.4 mg Q5M X 3 DOSES PRN SL Prn Chest Pain 02/08/19 11:30 03/08/19 14:29 Ondansetron HCl (Zofran) 4 mg Q6H PRN IVP Nausea & Vomiting 02/08/19 11:41 03/10/19 11:40 Pantoprazole (Protonix) 40 mg DAILY ORAL 02/09/19 09:00 03/11/19 08:59 Phenytoin (Dilantin) 100 mg Q12HR ORAL 02/08/19 21:00 03/10/19 20:59 02/08/19 20:49 Piperacillin Sod/ Tazobactam Sod 3.375 gm/Sodium Chloride 110 ml @ 27.5 mls/hr EVERY 8 HOURS IVPB 02/08/19 14:00 02/11/19 15:59 02/08/19 22:04 Pregabalin (Lyrica) 50 mg DAILY ORAL 02/08/19 15:15 03/10/19 15:14 02/08/19 15:41 Promethazine HCl/ Codeine (Phenergan with Codeine) 5 ml Q6H PRN ORAL cough 02/08/19 11:41 03/10/19 11:40 02/09/19 01:33 Temazepam (Restoril) 15 mg HSPRN PRN ORAL Insomnia 02/08/19 11:42 02/15/19 11:41 Theophylline (Fabrice-Dur) 100 mg EVERY 12 HOURS ORAL 02/08/19 21:00 03/08/19 20:59 02/08/19 20:49 Luis A Juares MD Feb 09, 2019 06:21
--- NOTE | 2019-02-09 07:35 | NUR ---
pt refused am lab now,endorced to day nurse SAIRA GIMENEZ
--- NOTE | 2019-02-09 07:38 | NUR ---
HAND-OFF: Report given to SAIRA GIMENEZ.
--- NOTE | 2019-02-09 07:58 | NUR ---
LAB HERE FOR BLOOD DRAW PT STILL REFUSED PT STATED FELT DIZZY AFTER BLOOD DRAW.
[2019-02-09] MEDS: Phenytoin 100mg cap ORAL SCH ×2 (08:48→20:37)
[2019-02-09] MEDS: Theophylline ER 100mg ORAL SCH ×2 (08:48→20:37)
[2019-02-09] MEDS: Lyrica 50mg cap ORAL SCH (08:49)
[2019-02-09] MEDS: Heparin 5000 units/ml inj SUBQ SCH ×2 (08:50→20:38)
--- NOTE | 2019-02-09 11:38 | NUR ---
NURSE NOTES: Received report from Shahab GIMENEZ, pt a/a/o x4 laying in bed with no signs of distress or other issues at this time. pt is able to ambulate around the unit with staff assistance. IV on the right wrist gauge#22, running Zosyn IV. pt on a regular diet, able to tolerated well with no signs of n/v. call light within reach. bed in lowest position. side rales up x2. I will f/u as needed.
--- NOTE | 2019-02-09 12:30 | NUR ---
NURSE NOTES: During hourly rounds, RN noticed IV to be leaking. RN changed new Iv on the right wrist gauge #22 in order to continues her Iv abx. I will f/u as needed.
[2019-02-09] MEDS: Artificial Tears 1.4% Op Soln BOTH EYES PRN ×3 (14:27→23:43)
[2019-02-09] MEDS: Montelukast 10mg tablet ORAL SCH (17:27)
[2019-02-09] MEDS ORDERED: D5 1/2NS 1000ml IV ONE (17:50)
--- NOTE | 2019-02-09 18:28 | Internal Med Progress Note ---
Subjective Date of Service: Feb 09, 2019 Physician Name Hank Toure Attending Physician Shlomo Garcia MD Current Medications Medications (Trade) Dose Ordered Sig/Mecca Route PRN Reason Start Time Stop Time Status Last Admin Dose Admin Albuterol/ Ipratropium (Albuterol/ Ipratropium) 3 ml Q4H PRN HHN dyspnea 02/08/19 11:41 02/13/19 11:40 02/09/19 13:14 Amlodipine Besylate (Norvasc) 5 mg DAILY ORAL 02/09/19 09:00 03/11/19 08:59 02/09/19 08:45 Artificial Tears (Akwa-Tears) 1 drop Q4H PRN BOTH EYES Dry Eyes 02/08/19 15:30 03/10/19 15:29 02/09/19 14:27 Clonidine HCl (Catapres Tab) 0.1 mg Q6H PRN ORAL For High Blood Pressure 02/08/19 11:40 03/10/19 11:39 02/09/19 12:32 Clopidogrel Bisulfate (Plavix) 75 mg DAILY ORAL 02/09/19 09:00 03/11/19 08:59 02/09/19 08:49 Dextrose (Dextrose 50%) 25 ml Q30M PRN IV Hypoglycemia 02/08/19 11:30 03/08/19 15:29 Dextrose (Dextrose 50%) 50 ml Q30M PRN IV Hypoglycemia 02/08/19 11:30 03/08/19 15:29 Heparin Sodium (Porcine) (Heparin 5000 units/ml) 5,000 units EVERY 12 HOURS SUBQ 02/08/19 21:00 03/08/19 20:59 02/09/19 08:50 Lidocaine (Xylocaine 1% MPF 5ml) 10 ml Q4H PRN HHN persistent cough 02/08/19 11:41 03/10/19 11:40 Lorazepam (Ativan 2mg/ml 1ml) 0.5 mg Q4H PRN IV For Anxiety 02/08/19 11:41 02/15/19 11:40 Methylprednisolone Sodium Succinate (Solu-MEDROL) 60 mg EVERY 6 HOURS IV 02/08/19 12:00 03/08/19 17:59 02/09/19 17:27 Montelukast Sodium (Singulair) 10 mg QPM ORAL 02/08/19 16:30 03/10/19 16:29 02/09/19 17:27 Morphine Sulfate (Morphine Sulfate) 2 mg Q4H PRN IVP Severe Pain (Pain Scale 7-10) 02/08/19 11:41 02/15/19 11:40 Nitroglycerin (Ntg) 0.4 mg Q5M X 3 DOSES PRN SL Prn Chest Pain 02/08/19 11:30 03/08/19 14:29 Ondansetron HCl (Zofran) 4 mg Q6H PRN IVP Nausea & Vomiting 02/08/19 11:41 03/10/19 11:40 Pantoprazole (Protonix) 40 mg DAILY ORAL 02/09/19 09:00 03/11/19 08:59 02/09/19 08:48 Phenytoin (Dilantin) 100 mg Q12HR ORAL 02/08/19 21:00 03/10/19 20:59 02/09/19 08:48 Piperacillin Sod/ Tazobactam Sod 3.375 gm/Sodium Chloride 110 ml @ 27.5 mls/hr EVERY 8 HOURS IVPB 02/08/19 14:00 02/11/19 15:59 02/09/19 14:28 Pregabalin (Lyrica) 50 mg DAILY ORAL 02/08/19 15:15 03/10/19 15:14 02/09/19 08:49 Promethazine HCl/ Codeine (Phenergan with Codeine) 5 ml Q6H PRN ORAL cough 02/08/19 11:41 03/10/19 11:40 02/09/19 12:17 Temazepam (Restoril) 15 mg HSPRN PRN ORAL Insomnia 02/08/19 11:42 02/15/19 11:41 Theophylline (Fabrice-Dur) 100 mg EVERY 12 HOURS ORAL 02/08/19 21:00 03/08/19 20:59 02/09/19 08:48 Allergies: Uncoded Allergies: Canned Food (Allergy, Unknown, 03/22/18) Nausea/Vomitting/Indigestion ROS Limited/Unobtainable: No Constitutional: Reports: no symptoms HEENT: Reports: no symptoms Cardiovascular: Reports: no symptoms Respiratory: Reports: no symptoms Gastrointestinal/Abdominal: Reports: no symptoms Genitourinary: Reports: no symptoms Neurologic/Psychiatric: Reports: no symptoms Subjective 84 YO F admitted with shortness of breath. Now asthma exacerbation. Cover for Int Med-Dr Garcia Objective Last Vital Signs Date Time Temp Pulse Resp B/P (MAP) Pulse Ox O2 Delivery O2 Flow Rate FiO2 02/09/19 16:00 98.5 90 19 146/87 (106) 94 02/09/19 13:25 Nasal Cannula 2.0 28 Intake and Output 02/08/19 02/09/19 19:00 07:00 Intake Total 480.0 ml 410.0 ml Balance 480.0 ml 410.0 ml Intake Oral 370 ml 300 ml IV Total 110.0 ml 110.0 ml # Voids 2 3 Objective PHYSICAL EXAMINATION: GENERAL: The patient is a well-developed and well-nourished female, in no apparent distress. HEENT: Eyes, pupils are equal and responsive to light and accommodation. Extraocular movements are intact. NECK: Supple without lymphadenopathy. CHEST: Few diffuse wheezes in bilateral lung perez. Otherwise, clear to auscultation without rales. CARDIOVASCULAR: Regular rhythm and rate. S1, S2 are normal without murmurs, rubs, or gallops. ABDOMEN: Soft, nontender, and nondistended. Positive bowel sounds. No evidence of hepatosplenomegaly. Currently, no rebound or guarding noted. EXTREMITIES: Negative for clubbing, cyanosis, or edema. RECTAL/GENITAL: Refused. NEUROLOGIC: Cranial nerves II through XII are grossly intact without focal deficits. Motor strength is 5/5 bilaterally. Deep tendon reflexes are 2+ plant Assessment/Plan Assessment/Plan ASSESSMENT: This is an 84-year-old female. 1. Shortness of breath. 2. Acute asthma exacerbation. 3. Cerebrovascular disease. 4. Hypertension. 5. Hypercholesterolemia. 6. Gastroesophageal reflux disease. 7. Seizure disorder. 8. Coronary artery disease. TREATMENT: 1. Shortness of breath/asthma. A Pulmonary consultation has been obtained with Dr. Luis A Juares. The patient is currently receiving Solu-Medrol intravenously. The patient has been placed on Zosyn for probable bronchitis. The patient is receiving albuterol/Atrovent nebulized q.4 hours p.r.n. We will follow recommendation of Pulmonary. 2. Cerebrovascular disease. 3. Hypertension. Continue losartan, hydrochlorothiazide, and amlodipine as above. 4. Hypercholesterolemia. Continue atorvastatin as above. 5. Gastroesophageal reflux disease. The patient has been placed on Protonix. 6. Seizure disorder. Continue Dilantin as above. 7. Coronary artery disease. Continue Plavix as above. Hank Toure MD Feb 09, 2019 18:28
--- NOTE | 2019-02-09 19:38 | NUR ---
HAND-OFF: Report given to Susy GIMENEZ, pt in stable condition.
--- NOTE | 2019-02-09 19:40 | NUR ---
NURSE NOTES: Received report from RNFederico. Sitting on chair and orientation x4, verbally responsive in Arabic/Chadian. Breathing is even and non labored. No acute respiratory distress. On O2 2L nasal cannular inhalation. Inform pt for scheduled medication and prn breathing treatment. Leave call light within reach and educate fall precautions. Will continue to monitor.
[2019-02-10 00:45] VITALS: BP 142/86
[2019-02-10] MEDS: Promethazine/Codeine 5ml UD ORAL PRN ×4 (00:58→23:22)
[2019-02-10 04:59] VITALS: BP 166/100
[2019-02-10] MEDS: Piperacillin/Tazobactam 3.375 GM in NS 110 ML IVPB SCH ×3 (05:16→21:02)
[2019-02-10] MEDS: Solu-MEDROL 125mg Inj IV SCH ×4 (05:16→23:22)
--- NOTE | 2019-02-10 06:00 | NUR ---
NURSE NOTES: Pt refused AM lab draw.
[2019-02-10] MEDS: Artificial Tears 1.4% Op Soln BOTH EYES PRN ×2 (06:03→21:03)
[2019-02-10] MEDS: Albuterol/Ipratropium 3ml neb HHN PRN ×5 (06:35→23:08)
--- NOTE | 2019-02-10 07:30 | NUR ---
HAND-OFF: Report given to AMMY Diaz. Rounds done. Pt in stable condition.
--- NOTE | 2019-02-10 07:45 | NUR ---
NURSE NOTES: Received report from Susy GIMENEZ. Patient is awake alert and oriented x4, no acute distress noted, on 2L NC. Sitting at bedside. IV running Zosyn per order. Patient reporting no pain. Seizure precautions maintained with side rails padded. Patient updated on plan of care for the day. Side rails upx2, bed low and locked, call light in reach. Will continue to monitor.
[2019-02-10 08:00] VITALS: BP 147/78
[2019-02-10] MEDS: Theophylline ER 100mg ORAL SCH ×2 (08:41→21:01)
[2019-02-10] MEDS: Lyrica 50mg cap ORAL SCH (08:41)
[2019-02-10] MEDS: Phenytoin 100mg cap ORAL SCH ×2 (08:42→21:01)
[2019-02-10] MEDS: Heparin 5000 units/ml inj SUBQ SCH ×2 (08:43→21:03)
[2019-02-10 12:00] VITALS: BP 154/87
--- NOTE | 2019-02-10 14:42 | Pulmonology Progress Note ---
Assessment/Plan Problems: (1) Acute asthma exacerbation (2) Acute respiratory failure (3) Allergic asthma (4) Chronic back pain (5) Seizure disorder (6) Cerebral vascular disease (7) GERD (gastroesophageal reflux disease) (8) CAD (coronary artery disease) (9) Vascular dementia (10) HTN (hypertension) Assessment/Plan no new complaisn all reviewed still coughing on dilantin and lyrica same dose of steroids for now respiratory treatment on theophylline titrate fio2 to sat of 92% dvt prophylaxis. Subjective ROS Limited/Unobtainable: No Constitutional: Reports: no symptoms HEENT: Repors: no symptoms Respiratory: Reports: no symptoms Allergies: Uncoded Allergies: Canned Food (Allergy, Unknown, 03/22/18) Nausea/Vomitting/Indigestion Objective Last 24 Hour Vital Signs Date Time Temp Pulse Resp B/P (MAP) Pulse Ox O2 Delivery O2 Flow Rate FiO2 02/10/19 12:00 97.9 84 20 154/87 (109) 95 02/10/19 11:27 85 18 99 Nasal Cannula 2.0 28 02/10/19 11:27 28 02/10/19 11:16 81 20 97 Nasal Cannula 2.0 02/10/19 09:00 Nasal Cannula 3.0 02/10/19 08:42 91 147/78 02/10/19 08:00 98.2 91 21 147/78 (101) 95 02/10/19 06:45 90 18 99 Nasal Cannula 2.0 02/10/19 06:44 28 02/10/19 06:38 84 20 98 Nasal Cannula 2.0 02/10/19 06:38 98 Nasal Cannula 2.0 02/10/19 06:35 84 20 98 Nasal Cannula 2.0 02/10/19 06:18 166/100 02/10/19 04:59 98.3 96 17 166/100 (122) 93 02/10/19 00:45 142/86 (104) 02/09/19 23:58 97.5 104 18 165/94 (117) 93 02/09/19 23:42 165/94 02/09/19 23:29 87 18 99 Nasal Cannula 2.0 28 02/09/19 23:29 28 02/09/19 23:17 89 20 96 Nasal Cannula 2.0 02/09/19 21:00 Nasal Cannula 3.0 02/09/19 20:00 98.2 95 17 125/81 (96) 95 02/09/19 19:30 82 18 99 Nasal Cannula 2.0 28 02/09/19 19:30 28 02/09/19 19:22 97 Nasal Cannula 2.0 28 02/09/19 19:21 86 20 97 Nasal Cannula 2.0 28 02/09/19 19:18 86 20 97 Nasal Cannula 2.0 28 02/09/19 16:00 98.5 90 19 146/87 (106) 94 Intake and Output 02/09/19 02/10/19 19:00 07:00 Intake Total 327.5 ml 500 ml Balance 327.5 ml 500 ml Intake Oral 300 ml 500 ml IV Total 27.5 ml # Voids 2 3 General Appearance: WD/WN HEENT: normocephalic, atraumatic Respiratory/Chest: chest wall non-tender, lungs clear, normal breath sounds, crackles/rales, expiratory wheezing Cardiovascular: normal peripheral pulses, normal rate Abdomen: normal bowel sounds, no organomegaly Extremities: no cyanosis 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 Resulted Current Medications Medications (Trade) Dose Ordered Sig/Mecca Route PRN Reason Start Time Stop Time Status Last Admin Dose Admin Albuterol/ Ipratropium (Albuterol/ Ipratropium) 3 ml Q4H PRN HHN dyspnea 02/08/19 11:41 02/13/19 11:40 02/10/19 11:16 Amlodipine Besylate (Norvasc) 5 mg DAILY ORAL 02/09/19 09:00 03/11/19 08:59 02/10/19 08:42 Artificial Tears (Akwa-Tears) 1 drop Q4H PRN BOTH EYES Dry Eyes 02/08/19 15:30 03/10/19 15:29 02/10/19 06:03 Clonidine HCl (Catapres Tab) 0.1 mg Q6H PRN ORAL For High Blood Pressure 02/08/19 11:40 03/10/19 11:39 02/10/19 06:18 Clopidogrel Bisulfate (Plavix) 75 mg DAILY ORAL 02/09/19 09:00 03/11/19 08:59 02/10/19 08:42 Dextrose (Dextrose 50%) 25 ml Q30M PRN IV Hypoglycemia 02/08/19 11:30 03/08/19 15:29 Dextrose (Dextrose 50%) 50 ml Q30M PRN IV Hypoglycemia 02/08/19 11:30 03/08/19 15:29 Heparin Sodium (Porcine) (Heparin 5000 units/ml) 5,000 units EVERY 12 HOURS SUBQ 02/08/19 21:00 03/08/19 20:59 02/10/19 08:43 Lidocaine (Xylocaine 1% MPF 5ml) 10 ml Q4H PRN HHN persistent cough 02/08/19 11:41 03/10/19 11:40 Lorazepam (Ativan 2mg/ml 1ml) 0.5 mg Q4H PRN IV For Anxiety 02/08/19 11:41 02/15/19 11:40 Methylprednisolone Sodium Succinate (Solu-MEDROL) 60 mg EVERY 6 HOURS IV 02/08/19 12:00 03/08/19 17:59 02/10/19 12:26 Montelukast Sodium (Singulair) 10 mg QPM ORAL 02/08/19 16:30 03/10/19 16:29 02/09/19 17:27 Morphine Sulfate (Morphine Sulfate) 2 mg Q4H PRN IVP Severe Pain (Pain Scale 7-10) 02/08/19 11:41 02/15/19 11:40 Nitroglycerin (Ntg) 0.4 mg Q5M X 3 DOSES PRN SL Prn Chest Pain 02/08/19 11:30 03/08/19 14:29 Ondansetron HCl (Zofran) 4 mg Q6H PRN IVP Nausea & Vomiting 02/08/19 11:41 03/10/19 11:40 Pantoprazole (Protonix) 40 mg DAILY ORAL 02/09/19 09:00 03/11/19 08:59 02/10/19 08:41 Phenytoin (Dilantin) 100 mg Q12HR ORAL 02/08/19 21:00 03/10/19 20:59 02/10/19 08:42 Piperacillin Sod/ Tazobactam Sod 3.375 gm/Sodium Chloride 110 ml @ 27.5 mls/hr EVERY 8 HOURS IVPB 02/08/19 14:00 02/11/19 15:59 02/10/19 05:16 Pregabalin (Lyrica) 50 mg DAILY ORAL 02/08/19 15:15 03/10/19 15:14 02/10/19 08:41 Promethazine HCl/ Codeine (Phenergan with Codeine) 5 ml Q6H PRN ORAL cough 02/08/19 11:41 03/10/19 11:40 02/10/19 09:11 Temazepam (Restoril) 15 mg HSPRN PRN ORAL Insomnia 02/08/19 11:42 02/15/19 11:41 Theophylline (Fabrice-Dur) 100 mg EVERY 12 HOURS ORAL 02/08/19 21:00 03/08/19 20:59 02/10/19 08:41 Luis A Juares MD Feb 10, 2019 14:42
--- NOTE | 2019-02-10 16:00 | Internal Med Progress Note ---
Subjective Date of Service: Feb 10, 2019 Physician Name Hank Toure Attending Physician Shlomo Garcia MD Current Medications Medications (Trade) Dose Ordered Sig/Mecca Route PRN Reason Start Time Stop Time Status Last Admin Dose Admin Albuterol/ Ipratropium (Albuterol/ Ipratropium) 3 ml Q4H PRN HHN dyspnea 02/08/19 11:41 02/13/19 11:40 02/10/19 15:35 Amlodipine Besylate (Norvasc) 5 mg DAILY ORAL 02/09/19 09:00 03/11/19 08:59 02/10/19 08:42 Artificial Tears (Akwa-Tears) 1 drop Q4H PRN BOTH EYES Dry Eyes 02/08/19 15:30 03/10/19 15:29 02/10/19 06:03 Clonidine HCl (Catapres Tab) 0.1 mg Q6H PRN ORAL For High Blood Pressure 02/08/19 11:40 03/10/19 11:39 02/10/19 06:18 Clopidogrel Bisulfate (Plavix) 75 mg DAILY ORAL 02/09/19 09:00 03/11/19 08:59 02/10/19 08:42 Dextrose (Dextrose 50%) 25 ml Q30M PRN IV Hypoglycemia 02/08/19 11:30 03/08/19 15:29 Dextrose (Dextrose 50%) 50 ml Q30M PRN IV Hypoglycemia 02/08/19 11:30 03/08/19 15:29 Heparin Sodium (Porcine) (Heparin 5000 units/ml) 5,000 units EVERY 12 HOURS SUBQ 02/08/19 21:00 03/08/19 20:59 02/10/19 08:43 Lidocaine (Xylocaine 1% MPF 5ml) 10 ml Q4H PRN HHN persistent cough 02/08/19 11:41 03/10/19 11:40 Lorazepam (Ativan 2mg/ml 1ml) 0.5 mg Q4H PRN IV For Anxiety 02/08/19 11:41 02/15/19 11:40 Methylprednisolone Sodium Succinate (Solu-MEDROL) 60 mg EVERY 6 HOURS IV 02/08/19 12:00 03/08/19 17:59 02/10/19 12:26 Montelukast Sodium (Singulair) 10 mg QPM ORAL 02/08/19 16:30 03/10/19 16:29 02/09/19 17:27 Morphine Sulfate (Morphine Sulfate) 2 mg Q4H PRN IVP Severe Pain (Pain Scale 7-10) 02/08/19 11:41 02/15/19 11:40 Nitroglycerin (Ntg) 0.4 mg Q5M X 3 DOSES PRN SL Prn Chest Pain 02/08/19 11:30 03/08/19 14:29 Ondansetron HCl (Zofran) 4 mg Q6H PRN IVP Nausea & Vomiting 02/08/19 11:41 03/10/19 11:40 Pantoprazole (Protonix) 40 mg DAILY ORAL 02/09/19 09:00 03/11/19 08:59 02/10/19 08:41 Phenytoin (Dilantin) 100 mg Q12HR ORAL 02/08/19 21:00 03/10/19 20:59 02/10/19 08:42 Piperacillin Sod/ Tazobactam Sod 3.375 gm/Sodium Chloride 110 ml @ 27.5 mls/hr EVERY 8 HOURS IVPB 02/08/19 14:00 02/11/19 15:59 02/10/19 14:53 Pregabalin (Lyrica) 50 mg DAILY ORAL 02/08/19 15:15 03/10/19 15:14 02/10/19 08:41 Promethazine HCl/ Codeine (Phenergan with Codeine) 5 ml Q6H PRN ORAL cough 02/08/19 11:41 03/10/19 11:40 02/10/19 15:23 Temazepam (Restoril) 15 mg HSPRN PRN ORAL Insomnia 02/08/19 11:42 02/15/19 11:41 Theophylline (Fabrice-Dur) 100 mg EVERY 12 HOURS ORAL 02/08/19 21:00 03/08/19 20:59 02/10/19 08:41 Allergies: Uncoded Allergies: Canned Food (Allergy, Unknown, 03/22/18) Nausea/Vomitting/Indigestion ROS Limited/Unobtainable: No Constitutional: Reports: no symptoms HEENT: Reports: no symptoms Cardiovascular: Reports: no symptoms Respiratory: Reports: no symptoms Gastrointestinal/Abdominal: Reports: no symptoms Genitourinary: Reports: no symptoms Neurologic/Psychiatric: Reports: no symptoms Subjective 84 YO F admitted with shortness of breath. Now asthma exacerbation. Cover for Int Med-Dr Garcia Objective Last Vital Signs Date Time Temp Pulse Resp B/P (MAP) Pulse Ox O2 Delivery O2 Flow Rate FiO2 02/10/19 15:35 89 21 98 Nasal Cannula 2.0 28 02/10/19 12:00 97.9 154/87 (109) Microbiology Date/Time Source Procedure Growth Status 02/09/19 08:27 Sputum Gram Stain - Final Resulted 02/09/19 08:27 Sputum Sputum Culture - Preliminary NORMAL UPPER RESPIRATORY SRUTHI AT 24 ... Resulted Intake and Output 02/09/19 02/10/19 19:00 07:00 Intake Total 327.5 ml 500 ml Balance 327.5 ml 500 ml Intake Oral 300 ml 500 ml IV Total 27.5 ml # Voids 2 3 Objective PHYSICAL EXAMINATION: GENERAL: The patient is a well-developed and well-nourished female, in no apparent distress. HEENT: Eyes, pupils are equal and responsive to light and accommodation. Extraocular movements are intact. NECK: Supple without lymphadenopathy. CHEST: Few diffuse wheezes in bilateral lung perez. Otherwise, clear to auscultation without rales. CARDIOVASCULAR: Regular rhythm and rate. S1, S2 are normal without murmurs, rubs, or gallops. ABDOMEN: Soft, nontender, and nondistended. Positive bowel sounds. No evidence of hepatosplenomegaly. Currently, no rebound or guarding noted. EXTREMITIES: Negative for clubbing, cyanosis, or edema. RECTAL/GENITAL: Refused. NEUROLOGIC: Cranial nerves II through XII are grossly intact without focal deficits. Motor strength is 5/5 bilaterally. Deep tendon reflexes are 2+ plant Assessment/Plan Assessment/Plan ASSESSMENT: This is an 84-year-old female. 1. Shortness of breath. 2. Acute asthma exacerbation. 3. Cerebrovascular disease. 4. Hypertension. 5. Hypercholesterolemia. 6. Gastroesophageal reflux disease. 7. Seizure disorder. 8. Coronary artery disease. TREATMENT: 1. Shortness of breath/asthma. A Pulmonary consultation has been obtained with Dr. Luis A Juares. The patient is currently receiving Solu-Medrol intravenously. The patient has been placed on Zosyn for probable bronchitis. The patient is receiving albuterol/Atrovent nebulized q.4 hours p.r.n. We will follow recommendation of Pulmonary. 2. Cerebrovascular disease. 3. Hypertension. Continue losartan, hydrochlorothiazide, and amlodipine as above. 4. Hypercholesterolemia. Continue atorvastatin as above. 5. Gastroesophageal reflux disease. The patient has been placed on Protonix. 6. Seizure disorder. Continue Dilantin as above. 7. Coronary artery disease. Continue Plavix as above. Hank Toure MD Feb 10, 2019 16:00
[2019-02-10 16:11] VITALS: BP 158/73
[2019-02-10] MEDS: Montelukast 10mg tablet ORAL SCH (16:56)
--- NOTE | 2019-02-10 19:37 | NUR ---
HAND-OFF: Report given to Susy GIMENEZ. Patient is in stable condition.
--- NOTE | 2019-02-10 19:40 | NUR ---
NURSE NOTES: Received a report from AMMY Diaz. Pt is sitting on chair resting. Breathing is even and no acute distress noted. Verbally responsive in Vietnamese/Persian her own needs. Will continue to follow up.
[2019-02-10 20:00] VITALS: BP 156/77
--- NOTE | 2019-02-10 21:00 | NUR ---
NURSE NOTES: Pt states, " I have a lower tummy ache. I had a good amount of BM today but still don't feel comfortable." Pain level 7/10. Bowel sound intact in 4 quadrants. @2109 PRN Morphine 2mg/ml IV given as ordered. Explain medication effects and side effects. Leave call light within reach. Fall precautions given all the time. Clear cluster surroundings. Will continue to monitor.
[2019-02-11] VITALS (7 sets, daily range): BP systolic 145–165; BP diastolic 80–94
[2019-02-11] MEDS: Albuterol/Ipratropium 3ml neb HHN PRN ×3 (03:14→21:07)
[2019-02-11] MEDS: Solu-MEDROL 125mg Inj IV SCH ×4 (05:11→23:25)
[2019-02-11] MEDS: Piperacillin/Tazobactam 3.375 GM in NS 110 ML IVPB SCH ×2 (05:12→15:03)
[2019-02-11] MEDS: Artificial Tears 1.4% Op Soln BOTH EYES PRN ×3 (05:12→21:10)
--- NOTE | 2019-02-11 05:46 | NUR ---
NURSE NOTES: Pt is awake sitting on chair. Pt states that abdominal discomfort is gone. Intermittent cough tolerated with ordered prn cough medication. Encourage oral hydration as tolerated. Breathing treatment done as prn ordered. No wheezing or dyspnea noted during resting with O2 2L/min NC. No seizure movement overnight. Side rail padding are on for seizure precautions. No chilling/febrile sensation noted with Zosyn IV treatment as ordered. Will continue to monitor.
--- NOTE | 2019-02-11 06:00 | NUR ---
NURSE NOTES: Pt refused AM lab draw.
--- NOTE | 2019-02-11 07:18 | NUR ---
NURSE NOTES: Received report from AMMY Jain. Rounding done with outgoing nurse. Patient a/o x4, sitting on the chair, watching TV. No respiratory distress noted. Denies any pain at this time. Zosyn is running at this time. Call light within reach. Will continue to monitor.
--- NOTE | 2019-02-11 07:31 | NUR ---
HAND-OFF: Report given to AMMY Chavarria. Rounds done. Pt instable condition.
[2019-02-11] MEDS: Phenytoin 100mg cap ORAL SCH ×2 (08:45→21:07)
[2019-02-11] MEDS: Theophylline ER 100mg ORAL SCH ×2 (08:45→21:07)
[2019-02-11] MEDS: Lyrica 50mg cap ORAL SCH (08:46)
[2019-02-11] MEDS: Heparin 5000 units/ml inj SUBQ SCH ×2 (08:47→21:09)
[2019-02-11 11:04] LABS: BASOPHILS % (AUTO) 0.5 % (0.0-2.0); HEMATOCRIT 38.1 % (37.0-47.0); HEMOGLOBIN 12.9 G/DL (12.0-16.0); LYMPHOCYTES % (AUTO) 15.8 % (20.0-45.0); MEAN CORPUSCULAR VOLUME 90 FL (80-99); MONOCYTES % (AUTO) 3.7 % (1.0-10.0); PLATELET COUNT 210 K/UL (150-450); RED BLOOD COUNT 4.22 M/UL (4.20-5.40); RED CELL DISTRIBUTION WIDTH 12.7 % (11.6-14.8); WHITE BLOOD COUNT 9.6 K/UL (4.8-10.8)
[2019-02-11 11:33] LABS: ALANINE AMINOTRANSFERASE 37 U/L (12-78); ALBUMIN 3.2 G/DL (3.4-5.0); ALBUMIN/GLOBULIN RATIO 0.9 (1.0-2.7); ALKALINE PHOSPHATASE 70 U/L (46-116); ANION GAP 7 mmol/L (5-15); ASPARTATE AMINO TRANSFERASE 12 U/L (15-37); BILIRUBIN,TOTAL 0.2 MG/DL (0.2-1.0); BLOOD UREA NITROGEN 21 mg/dL (7-18); CALCIUM 8.5 MG/DL (8.5-10.1); CARBON DIOXIDE 31 MMOL/L (21-32); CHLORIDE 101 MMOL/L (98-107); CREATININE 0.8 MG/DL (0.55-1.30); PHOSPHORUS 4.2 MG/DL (2.5-4.9); POTASSIUM 3.7 MMOL/L (3.5-5.1); SODIUM 138 MMOL/L (136-145)
--- NOTE | 2019-02-11 12:05 | Pulmonology Progress Note ---
Assessment/Plan Problems: (1) Acute asthma exacerbation (2) Acute respiratory failure (3) Allergic asthma (4) Chronic back pain (5) Seizure disorder (6) Cerebral vascular disease (7) GERD (gastroesophageal reflux disease) (8) CAD (coronary artery disease) (9) Vascular dementia (10) HTN (hypertension) Assessment/Plan wants a MRI of right knee no new complains all reviewed still coughing on dilantin and lyrica same dose of steroids for now respiratory treatment on theophylline titrate fio2 to sat of 92% dvt prophylaxis. Subjective ROS Limited/Unobtainable: No Constitutional: Reports: no symptoms HEENT: Repors: no symptoms Respiratory: Reports: no symptoms Allergies: Uncoded Allergies: Canned Food (Allergy, Unknown, 03/22/18) Nausea/Vomitting/Indigestion Objective Last 24 Hour Vital Signs Date Time Temp Pulse Resp B/P (MAP) Pulse Ox O2 Delivery O2 Flow Rate FiO2 02/11/19 10:30 80 22 96 Nasal Cannula 2.0 28 02/11/19 09:00 Nasal Cannula 2.0 02/11/19 08:46 100 145/94 02/11/19 08:00 99.3 100 18 145/94 (111) 95 02/11/19 07:08 97 Nasal Cannula 2.0 28 02/11/19 07:08 74 16 97 Nasal Cannula 2.0 28 02/11/19 05:00 156/86 (109) 02/11/19 04:00 97.9 84 18 164/91 (115) 98 02/11/19 03:19 164/91 02/11/19 03:14 83 18 98 Nasal Cannula 2.0 28 02/11/19 00:00 97.8 86 17 157/85 (109) 97 02/10/19 23:18 82 18 99 Nasal Cannula 2.0 28 02/10/19 23:08 80 18 98 Nasal Cannula 2.0 28 02/10/19 21:00 Nasal Cannula 2.0 02/10/19 20:00 98.8 88 20 156/77 (103) 95 02/10/19 19:24 87 18 99 Nasal Cannula 2.0 28 02/10/19 19:23 87 20 99 Nasal Cannula 2.0 28 02/10/19 19:23 99 Nasal Cannula 2.0 28 02/10/19 19:08 86 20 99 Nasal Cannula 2.0 28 02/10/19 16:11 98.7 94 20 158/73 (101) 93 02/10/19 15:45 84 17 99 Nasal Cannula 2.0 28 02/10/19 15:35 89 21 98 Nasal Cannula 2.0 28 Intake and Output 02/10/19 02/11/19 18:59 06:59 Intake Total 950.0 ml 400 ml Balance 950.0 ml 400 ml Intake Oral 840 ml 400 ml IV Total 110.0 ml # Voids 3 3 # Bowel Movements 1 General Appearance: WD/WN HEENT: normocephalic, atraumatic Respiratory/Chest: chest wall non-tender, lungs clear Breasts: no masses Cardiovascular: normal rate Abdomen: soft, non tender, non distended Genitourinary: normal external genitalia Microbiology Date/Time Source Procedure Growth Status 02/09/19 08:27 Sputum Gram Stain - Final Resulted 02/09/19 08:27 Sputum Sputum Culture - Preliminary NORMAL UPPER RESPIRATORY SRUTHI AT 24 ... Resulted Laboratory Tests 02/11/19 10:45: White Blood Count 9.6, Red Blood Count 4.22, Hemoglobin 12.9, Hematocrit 38.1, Mean Corpuscular Volume 90, Mean Corpuscular Hemoglobin 30.7, Mean Corpuscular Hemoglobin Concent 33.9, Red Cell Distribution Width 12.7, Platelet Count 210, Mean Platelet Volume 5.9L, Neutrophils (%) (Auto) 80.0H, Lymphocytes (%) (Auto) 15.8L, Monocytes (%) (Auto) 3.7, Eosinophils (%) (Auto) 0.0, Basophils (%) (Auto ) 0.5, Erythrocyte Sedimentation Rate [Pending], Sodium Level 138, Potassium Level 3.7, Chloride Level 101, Carbon Dioxide Level 31, Anion Gap 7, Blood Urea Nitrogen 21H, Creatinine 0.8, Estimat Glomerular Filtration Rate , Glucose Level 151H, Calcium Level 8.5, Phosphorus Level 4.2, Magnesium Level 2.2, Total Bilirubin 0.2, Aspartate Amino Transf (AST/SGOT) 12L, Alanine Aminotransferase ( ALT/SGPT) 37, Alkaline Phosphatase 70, C-Reactive Protein, Quantitative < 0.4, Total Protein 6.7, Albumin 3.2L, Globulin 3.5, Albumin/Globulin Ratio 0.9L Current Medications Medications (Trade) Dose Ordered Sig/Mecca Route PRN Reason Start Time Stop Time Status Last Admin Dose Admin Albuterol/ Ipratropium (Albuterol/ Ipratropium) 3 ml Q4H PRN HHN dyspnea 02/08/19 11:41 02/13/19 11:40 02/11/19 03:14 Amlodipine Besylate (Norvasc) 5 mg DAILY ORAL 02/09/19 09:00 03/11/19 08:59 02/11/19 08:46 Artificial Tears (Akwa-Tears) 1 drop Q4H PRN BOTH EYES Dry Eyes 02/08/19 15:30 03/10/19 15:29 02/11/19 11:09 Clonidine HCl (Catapres Tab) 0.1 mg Q6H PRN ORAL For High Blood Pressure 02/08/19 11:40 03/10/19 11:39 02/11/19 03:19 Clopidogrel Bisulfate (Plavix) 75 mg DAILY ORAL 02/09/19 09:00 03/11/19 08:59 02/11/19 08:46 Dextrose (Dextrose 50%) 25 ml Q30M PRN IV Hypoglycemia 02/08/19 11:30 03/08/19 15:29 Dextrose (Dextrose 50%) 50 ml Q30M PRN IV Hypoglycemia 02/08/19 11:30 03/08/19 15:29 Heparin Sodium (Porcine) (Heparin 5000 units/ml) 5,000 units EVERY 12 HOURS SUBQ 02/08/19 21:00 03/08/19 20:59 02/10/19 21:03 Lidocaine (Xylocaine 1% MPF 5ml) 10 ml Q4H PRN HHN persistent cough 02/08/19 11:41 03/10/19 11:40 Lorazepam (Ativan 2mg/ml 1ml) 0.5 mg Q4H PRN IV For Anxiety 02/08/19 11:41 02/15/19 11:40 Methylprednisolone Sodium Succinate (Solu-MEDROL) 60 mg EVERY 6 HOURS IV 02/08/19 12:00 03/08/19 17:59 02/11/19 11:54 Montelukast Sodium (Singulair) 10 mg QPM ORAL 02/08/19 16:30 03/10/19 16:29 02/10/19 16:56 Morphine Sulfate (Morphine Sulfate) 2 mg Q4H PRN IVP Severe Pain (Pain Scale 7-10) 02/08/19 11:41 02/15/19 11:40 02/10/19 21:09 Nitroglycerin (Ntg) 0.4 mg Q5M X 3 DOSES PRN SL Prn Chest Pain 02/08/19 11:30 03/08/19 14:29 Ondansetron HCl (Zofran) 4 mg Q6H PRN IVP Nausea & Vomiting 02/08/19 11:41 03/10/19 11:40 Pantoprazole (Protonix) 40 mg DAILY ORAL 02/09/19 09:00 03/11/19 08:59 02/11/19 08:46 Phenytoin (Dilantin) 100 mg Q12HR ORAL 02/08/19 21:00 03/10/19 20:59 02/11/19 08:45 Piperacillin Sod/ Tazobactam Sod 3.375 gm/Sodium Chloride 110 ml @ 27.5 mls/hr EVERY 8 HOURS IVPB 02/08/19 14:00 02/11/19 15:59 02/11/19 05:12 Pregabalin (Lyrica) 50 mg DAILY ORAL 02/08/19 15:15 03/10/19 15:14 02/11/19 08:46 Promethazine HCl/ Codeine (Phenergan with Codeine) 5 ml Q6H PRN ORAL cough 02/08/19 11:41 03/10/19 11:40 02/10/19 23:22 Temazepam (Restoril) 15 mg HSPRN PRN ORAL Insomnia 02/08/19 11:42 02/15/19 11:41 Theophylline (Fabrice-Dur) 100 mg EVERY 12 HOURS ORAL 02/08/19 21:00 03/08/19 20:59 02/11/19 08:45 Luis A Juares MD Feb 11, 2019 12:05
--- NOTE | 2019-02-11 16:24 | Diagnostic Imaging Report ---
Indication: Left knee pain a 4 show female Technique: MRI of the left knee was imaged in a 1.5 Kady magnet. Pulse sequences obtained include coronal T1 fast spin-echo, STIR, sagittal coronal and axial proton fast spin-echo with fat saturation, sagittal proton fast spin-echo. Comparison: None Findings: There is a moderate osteoarthrosis of the medial compartment of the knee characterized by full-thickness absence of articular cartilage, subchondral edema on the tibial side. There is complex degenerative tear involving the posterior horn and body of the medial meniscus. This is characterized by a blunting of the free edge of the meniscus, distortion of the normal meniscal configuration and abnormal horizontal signal that extends both superior and inferior articular surfaces. Due to the joint space narrowing there is extrusion of a part of the meniscus medially. In addition the anterior fibers of the MCL as they cross and extend toward the patella to become the medial patellofemoral ligament demonstrate waviness, thickening and intermixed with abnormal T2 hyperintense edema indicative of a moderate sprain. There is a popliteal cyst between semimembranosus tendon and the medial head of gastrocnemius tendon measuring about 2 x 1.3 x 4 cm. Moderate joint effusion demonstrated. The lateral collateral ligamentous complex is normal including demonstration of the iliotibial band, fibular collateral ligament, biceps femoris tendon and popliteus tendons. There is no fracture. Other than the abnormal subchondral signal associated with arthrosis in the medial compartment, bone marrow signal is normal. Anterior and posterior cruciate ligaments appear normal. IMPRESSION: Moderate sprain of the medial patellofemoral ligament and the anterior fibers of MCL. Complex tear and degeneration of the medial meniscus involving the posterior horn and body. Associated moderate arthrosis of the medial compartment and grade 4 chondrosis noted. Moderate joint effusion Popliteal cyst
[2019-02-11] MEDS: Montelukast 10mg tablet ORAL SCH (16:47)
--- NOTE | 2019-02-11 16:56 | NUR ---
CASE MANAGEMENT:REVIEW 02/11/2019 SI: ACUTE ASTHMA EXACERBATION T 98.6 HR 90 RR 18 B/P 157/80 SATS 95% ON 2L/NC BUN 21 AST 12 IS: IV ZOSYN Q8HRS IV SOLUMEDROL Q6HRS NORVASC PO QD PLAVIX PO QD PROTONIX PO QD HEPARIN SQ Q12 MARCIAL-DUR PO Q12 DILANTIN PO Q12 MED/SURG STATUS
--- NOTE | 2019-02-11 19:22 | NUR ---
HAND-OFF: Report given to AMMY Jain. Patient is asleep.
--- NOTE | 2019-02-11 19:30 | NUR ---
Received a report from Jennifer Villanueva. Pt is asleep with elevated head for breathing expansion and O2 2L/min NC. No showing acute distress. Call light within reach. Both 1/2 side rails are up. Bed is low position with lock. Will continue to monitor.
--- NOTE | 2019-02-11 20:42 | Internal Med Progress Note ---
Subjective Date of Service: Feb 11, 2019 Physician Name Hank Toure Attending Physician Shlomo Garcia MD Current Medications Medications (Trade) Dose Ordered Sig/Mecca Route PRN Reason Start Time Stop Time Status Last Admin Dose Admin Albuterol/ Ipratropium (Albuterol/ Ipratropium) 3 ml Q4H PRN HHN dyspnea 02/08/19 11:41 02/13/19 11:40 02/11/19 15:24 Amlodipine Besylate (Norvasc) 5 mg DAILY ORAL 02/09/19 09:00 03/11/19 08:59 02/11/19 08:46 Artificial Tears (Akwa-Tears) 1 drop Q4H PRN BOTH EYES Dry Eyes 02/08/19 15:30 03/10/19 15:29 02/11/19 11:09 Clonidine HCl (Catapres Tab) 0.1 mg Q6H PRN ORAL For High Blood Pressure 02/08/19 11:40 03/10/19 11:39 02/11/19 03:19 Clopidogrel Bisulfate (Plavix) 75 mg DAILY ORAL 02/09/19 09:00 03/11/19 08:59 02/11/19 08:46 Dextrose (Dextrose 50%) 25 ml Q30M PRN IV Hypoglycemia 02/08/19 11:30 03/08/19 15:29 Dextrose (Dextrose 50%) 50 ml Q30M PRN IV Hypoglycemia 02/08/19 11:30 03/08/19 15:29 Heparin Sodium (Porcine) (Heparin 5000 units/ml) 5,000 units EVERY 12 HOURS SUBQ 02/08/19 21:00 03/08/19 20:59 02/10/19 21:03 Lidocaine (Xylocaine 1% MPF 5ml) 10 ml Q4H PRN HHN persistent cough 02/08/19 11:41 03/10/19 11:40 Lorazepam (Ativan 2mg/ml 1ml) 0.5 mg Q4H PRN IV For Anxiety 02/08/19 11:41 02/15/19 11:40 Methylprednisolone Sodium Succinate (Solu-MEDROL) 60 mg EVERY 6 HOURS IV 02/08/19 12:00 03/08/19 17:59 02/11/19 17:40 Montelukast Sodium (Singulair) 10 mg QPM ORAL 02/08/19 16:30 03/10/19 16:29 02/11/19 16:47 Morphine Sulfate (Morphine Sulfate) 2 mg Q4H PRN IVP Severe Pain (Pain Scale 7-10) 02/08/19 11:41 02/15/19 11:40 02/10/19 21:09 Nitroglycerin (Ntg) 0.4 mg Q5M X 3 DOSES PRN SL Prn Chest Pain 02/08/19 11:30 03/08/19 14:29 Ondansetron HCl (Zofran) 4 mg Q6H PRN IVP Nausea & Vomiting 02/08/19 11:41 03/10/19 11:40 Pantoprazole (Protonix) 40 mg DAILY ORAL 02/09/19 09:00 03/11/19 08:59 02/11/19 08:46 Phenytoin (Dilantin) 100 mg Q12HR ORAL 02/08/19 21:00 03/10/19 20:59 02/11/19 08:45 Pregabalin (Lyrica) 50 mg DAILY ORAL 02/08/19 15:15 03/10/19 15:14 02/11/19 08:46 Promethazine HCl/ Codeine (Phenergan with Codeine) 5 ml Q6H PRN ORAL cough 02/08/19 11:41 03/10/19 11:40 02/10/19 23:22 Temazepam (Restoril) 15 mg HSPRN PRN ORAL Insomnia 02/08/19 11:42 02/15/19 11:41 Theophylline (Fabrice-Dur) 100 mg EVERY 12 HOURS ORAL 02/08/19 21:00 03/08/19 20:59 02/11/19 08:45 Allergies: Uncoded Allergies: Canned Food (Allergy, Unknown, 03/22/18) Nausea/Vomitting/Indigestion ROS Limited/Unobtainable: No Constitutional: Reports: no symptoms HEENT: Reports: no symptoms Cardiovascular: Reports: no symptoms Respiratory: Reports: shortness of breath Gastrointestinal/Abdominal: Reports: no symptoms Genitourinary: Reports: no symptoms Neurologic/Psychiatric: Reports: no symptoms Subjective 84 YO F admitted with shortness of breath. Now asthma exacerbation. Cover for Int Alex-Dr Garcia Objective Last Vital Signs Date Time Temp Pulse Resp B/P (MAP) Pulse Ox O2 Delivery O2 Flow Rate FiO2 02/11/19 16:00 98.6 90 18 157/80 (105) 95 02/11/19 15:24 Nasal Cannula 2.0 28 Laboratory Tests Test 02/11/19 10:45 White Blood Count 9.6 K/UL (4.8-10.8) Red Blood Count 4.22 M/UL (4.20-5.40) Hemoglobin 12.9 G/DL (12.0-16.0) Hematocrit 38.1 % (37.0-47.0) Mean Corpuscular Volume 90 FL (80-99) Mean Corpuscular Hemoglobin 30.7 PG (27.0-31.0) Mean Corpuscular Hemoglobin Concent 33.9 G/DL (32.0-36.0) Red Cell Distribution Width 12.7 % (11.6-14.8) Platelet Count 210 K/UL (150-450) Mean Platelet Volume 5.9 FL (6.5-10.1) L Neutrophils (%) (Auto) 80.0 % (45.0-75.0) H Lymphocytes (%) (Auto) 15.8 % (20.0-45.0) L Monocytes (%) (Auto) 3.7 % (1.0-10.0) Eosinophils (%) (Auto) 0.0 % (0.0-3.0) Basophils (%) (Auto) 0.5 % (0.0-2.0) Erythrocyte Sedimentation Rate 9 MM/HR (0-30) Sodium Level 138 MMOL/L (136-145) Potassium Level 3.7 MMOL/L (3.5-5.1) Chloride Level 101 MMOL/L (98-107) Carbon Dioxide Level 31 MMOL/L (21-32) Anion Gap 7 mmol/L (5-15) Blood Urea Nitrogen 21 mg/dL (7-18) H Creatinine 0.8 MG/DL (0.55-1.30) Estimat Glomerular Filtration Rate mL/min (>60) Glucose Level 151 MG/DL (74-106) H Calcium Level 8.5 MG/DL (8.5-10.1) Phosphorus Level 4.2 MG/DL (2.5-4.9) Magnesium Level 2.2 MG/DL (1.8-2.4) Total Bilirubin 0.2 MG/DL (0.2-1.0) Aspartate Amino Transf (AST/SGOT) 12 U/L (15-37) L Alanine Aminotransferase (ALT/SGPT) 37 U/L (12-78) Alkaline Phosphatase 70 U/L (46-116) C-Reactive Protein, Quantitative < 0.4 mg/dL (0.00-0.90) Total Protein 6.7 G/DL (6.4-8.2) Albumin 3.2 G/DL (3.4-5.0) L Globulin 3.5 g/dL Albumin/Globulin Ratio 0.9 (1.0-2.7) L Microbiology Date/Time Source Procedure Growth Status 02/09/19 08:27 Sputum Gram Stain - Final Resulted 02/09/19 08:27 Sputum Sputum Culture - Preliminary NORMAL UPPER RESPIRATORY SRUTHI AT 24 ... Resulted Intake and Output 02/10/19 02/11/19 19:00 07:00 Intake Total 950.0 ml 400 ml Balance 950.0 ml 400 ml Intake Oral 840 ml 400 ml IV Total 110.0 ml # Voids 3 3 # Bowel Movements 1 Objective PHYSICAL EXAMINATION: GENERAL: The patient is a well-developed and well-nourished female, in no apparent distress. HEENT: Eyes, pupils are equal and responsive to light and accommodation. Extraocular movements are intact. NECK: Supple without lymphadenopathy. CHEST: Nasal canula; Few diffuse wheezes in bilateral lung perez. Otherwise, clear to auscultation without rales. CARDIOVASCULAR: Regular rhythm and rate. S1, S2 are normal without murmurs, rubs, or gallops. ABDOMEN: Soft, nontender, and nondistended. Positive bowel sounds. No evidence of hepatosplenomegaly. Currently, no rebound or guarding noted. EXTREMITIES: Negative for clubbing, cyanosis, or edema. RECTAL/GENITAL: Refused. NEUROLOGIC: Cranial nerves II through XII are grossly intact without focal deficits. Motor strength is 5/5 bilaterally. Deep tendon reflexes are 2+ plant Assessment/Plan Assessment/Plan ASSESSMENT: This is an 84-year-old female. 1. Shortness of breath. 2. Acute asthma exacerbation. 3. Cerebrovascular disease. 4. Hypertension. 5. Hypercholesterolemia. 6. Gastroesophageal reflux disease. 7. Seizure disorder. 8. Coronary artery disease. TREATMENT: 1. Shortness of breath/asthma. A Pulmonary consultation has been obtained with Dr. Luis A Juares. The patient is currently receiving Solu-Medrol intravenously. The patient has been placed on Zosyn for probable bronchitis. The patient is receiving albuterol/Atrovent nebulized q.4 hours p.r.n. We will follow recommendation of Pulmonary. 2. Cerebrovascular disease. 3. Hypertension. Continue losartan, hydrochlorothiazide, and amlodipine as above. 4. Hypercholesterolemia. Continue atorvastatin as above. 5. Gastroesophageal reflux disease. The patient has been placed on Protonix. 6. Seizure disorder. Continue Dilantin as above. 7. Coronary artery disease. Continue Plavix as above. Hank Toure MD Feb 11, 2019 20:42
[2019-02-12] VITALS: BP 157/87
[2019-02-12 04:00] VITALS: BP 175/96
[2019-02-12] MEDS: Albuterol/Ipratropium 3ml neb HHN PRN (04:50)
[2019-02-12] MEDS: Solu-MEDROL 125mg Inj IV SCH ×2 (05:58→12:18)
[2019-02-12 06:00] VITALS: BP 156/86
--- NOTE | 2019-02-12 07:30 | NUR ---
HAND-OFF: Report given to AMMY Caballero. Pt in stable condition. Rounds done.
[2019-02-12 08:00] VITALS: BP 150/93
--- NOTE | 2019-02-12 08:00 | NUR ---
NURSE NOTES: Received report from Susy GIMENEZ, pt a/a/o x4, pt laying in bed with no signs of distress or other issues at this time. pt was able to tolerate her regular diet with no signs of n/v. IV on the left FA gauge#22 heplock. call light within reach. bed in lowest position. side rales up x2. I will f/u as needed.
[2019-02-12] MEDS: Theophylline ER 100mg ORAL SCH (08:54)
[2019-02-12] MEDS: Phenytoin 100mg cap ORAL SCH (08:54)
[2019-02-12] MEDS: Lyrica 50mg cap ORAL SCH (08:55)
[2019-02-12] MEDS: Heparin 5000 units/ml inj SUBQ SCH (08:56)
--- NOTE | 2019-02-12 11:27 | Pulmonology Progress Note ---
Assessment/Plan Problems: (1) Acute asthma exacerbation (2) Acute respiratory failure (3) Allergic asthma (4) Chronic back pain (5) Seizure disorder (6) Cerebral vascular disease (7) GERD (gastroesophageal reflux disease) (8) CAD (coronary artery disease) (9) Vascular dementia (10) HTN (hypertension) Assessment/Plan mri done, showed very complex tear no new complains all reviewed still coughing on dilantin and lyrica same dose of steroids for now respiratory treatment on theophylline titrate fio2 to sat of 92% dvt prophylaxis. Subjective ROS Limited/Unobtainable: No Constitutional: Reports: no symptoms HEENT: Repors: no symptoms Respiratory: Reports: no symptoms Allergies: Uncoded Allergies: Canned Food (Allergy, Unknown, 03/22/18) Nausea/Vomitting/Indigestion Objective Last 24 Hour Vital Signs Date Time Temp Pulse Resp B/P (MAP) Pulse Ox O2 Delivery O2 Flow Rate FiO2 02/12/19 08:54 84 150/93 02/12/19 08:03 84 20 98 Nasal Cannula 2.0 28 02/12/19 08:03 97 Nasal Cannula 2.0 28 02/12/19 08:00 97.9 21 150/93 (112) 97 02/12/19 06:00 96 156/86 (109) 02/12/19 05:00 85 20 95 Nasal Cannula 2.0 28 02/12/19 04:50 80 20 95 Nasal Cannula 2.0 28 02/12/19 04:17 175/96 02/12/19 04:00 98.0 85 18 175/96 (122) 97 02/12/19 00:00 97.7 94 18 157/87 (110) 95 02/11/19 21:20 88 20 95 Nasal Cannula 2.0 28 02/11/19 21:07 82 16 96 Nasal Cannula 2.0 28 02/11/19 21:07 82 16 96 Nasal Cannula 2.0 28 02/11/19 21:07 165/90 02/11/19 21:07 97 Nasal Cannula 2.0 28 02/11/19 21:00 Nasal Cannula 2.0 02/11/19 20:00 97.4 90 17 165/90 (115) 93 02/11/19 16:00 98.6 90 18 157/80 (105) 95 02/11/19 15:24 90 24 100 Nasal Cannula 2.0 28 02/11/19 15:15 78 24 96 Nasal Cannula 2.0 28 02/11/19 12:00 98.4 84 18 156/86 (109) 97 Intake and Output 02/11/19 02/12/19 18:59 06:59 Intake Total 800 ml 400 ml Balance 800 ml 400 ml Intake Oral 800 ml 400 ml # Voids 5 2 # Bowel Movements 1 2 General Appearance: WD/WN HEENT: atraumatic Respiratory/Chest: chest wall non-tender, normal breath sounds Cardiovascular: normal rate Abdomen: normal bowel sounds, no organomegaly Skin: no lesions Current Medications Medications (Trade) Dose Ordered Sig/[place] Route PRN Reason Start Time Stop Time Status Last Admin Dose Admin Albuterol/ Ipratropium (Albuterol/ Ipratropium) 3 ml Q4H PRN HHN dyspnea 02/08/19 11:41 02/13/19 11:40 02/12/19 04:50 Amlodipine Besylate (Norvasc) 5 mg DAILY ORAL 02/09/19 09:00 03/11/19 08:59 02/12/19 08:54 Artificial Tears (Akwa-Tears) 1 drop Q4H PRN BOTH EYES Dry Eyes 02/08/19 15:30 03/10/19 15:29 02/11/19 21:10 Clonidine HCl (Catapres Tab) 0.1 mg Q6H PRN ORAL For High Blood Pressure 02/08/19 11:40 03/10/19 11:39 02/12/19 04:17 Clopidogrel Bisulfate (Plavix) 75 mg DAILY ORAL 02/09/19 09:00 03/11/19 08:59 02/12/19 08:54 Dextrose (Dextrose 50%) 25 ml Q30M PRN IV Hypoglycemia 02/08/19 11:30 03/08/19 15:29 Dextrose (Dextrose 50%) 50 ml Q30M PRN IV Hypoglycemia 02/08/19 11:30 03/08/19 15:29 Heparin Sodium (Porcine) (Heparin 5000 units/ml) 5,000 units EVERY 12 HOURS SUBQ 02/08/19 21:00 03/08/19 20:59 02/12/19 08:56 Lidocaine (Xylocaine 1% MPF 5ml) 10 ml Q4H PRN HHN persistent cough 02/08/19 11:41 03/10/19 11:40 Lorazepam (Ativan 2mg/ml 1ml) 0.5 mg Q4H PRN IV For Anxiety 02/08/19 11:41 02/15/19 11:40 Methylprednisolone Sodium Succinate (Solu-MEDROL) 60 mg EVERY 6 HOURS IV 02/08/19 12:00 03/08/19 17:59 02/12/19 05:58 Montelukast Sodium (Singulair) 10 mg QPM ORAL 02/08/19 16:30 03/10/19 16:29 02/11/19 16:47 Morphine Sulfate (Morphine Sulfate) 2 mg Q4H PRN IVP Severe Pain (Pain Scale 7-10) 02/08/19 11:41 02/15/19 11:40 02/10/19 21:09 Nitroglycerin (Ntg) 0.4 mg Q5M X 3 DOSES PRN SL Prn Chest Pain 02/08/19 11:30 03/08/19 14:29 Ondansetron HCl (Zofran) 4 mg Q6H PRN IVP Nausea & Vomiting 02/08/19 11:41 03/10/19 11:40 Pantoprazole (Protonix) 40 mg DAILY ORAL 02/09/19 09:00 03/11/19 08:59 02/12/19 08:54 Phenytoin (Dilantin) 100 mg Q12HR ORAL 02/08/19 21:00 03/10/19 20:59 02/12/19 08:54 Pregabalin (Lyrica) 50 mg DAILY ORAL 02/08/19 15:15 03/10/19 15:14 02/12/19 08:55 Promethazine HCl/ Codeine (Phenergan with Codeine) 5 ml Q6H PRN ORAL cough 02/08/19 11:41 03/10/19 11:40 02/10/19 23:22 Temazepam (Restoril) 15 mg HSPRN PRN ORAL Insomnia 02/08/19 11:42 02/15/19 11:41 Theophylline (Fabrice-Dur) 100 mg EVERY 12 HOURS ORAL 02/08/19 21:00 03/08/19 20:59 02/12/19 08:54 Luis A Juares MD Feb 12, 2019 11:27
[2019-02-12] MEDS ORDERED: MEDROL DOSEPAK4 MG ORAL (11:28)
[2019-02-12] MEDS: Artificial Tears 1.4% Op Soln BOTH EYES PRN (11:58)
[2019-02-12 12:00] VITALS: BP 150/87
[2019-02-12] MEDS: Promethazine/Codeine 5ml UD ORAL PRN (12:18)
--- NOTE | 2019-02-12 16:30 | NUR ---
NURSE NOTES: Received order for d/c. belonging and discharge instructions given to patient and pt's caregiver.also given RX. IV removed prior to d/c. pt left the floor with no signs of distress or other issues at this time. caregiver will provide transportation. I will f/u as needed.
--- NOTE | 2019-02-13 12:13 | Discharge Summary ---
Discharge Summary Discharge Summary _ DATE OF ADMISSION: 02/06/2019 DATE OF DISCHARGE: 02/12/2019 DISCHARGED BY: Dr. Garcia REASON FOR ADMISSION: 84 years old female with past medical history of hypertension, refractory asthma , seizure disorder, history of CVA/TIA, presented to emergency department for evaluation due to shortness of breath. Her neighbor called paramedics. Patient reported being very short of breath. She was using inhaler at home without significant relief. She had persistent cough with wheezing, no hemoptysis. She denied chest pain. She received a dose of Solu-Medrol in the emergency department along with handheld nebulizing treatment with bronchodilator and admitted for further management CONSULTANTS: pulmonary Dr. Juares [facility] COURSE: Patient admitted to medical surgical floor. Supplemental oxygen provided as needed to keep pulse oximetry above 90%. Pulmonary toilet provided with nebulizing therapy around the clock and as needed. Patient was started on intravenous steroids with gradual tapering down. Sputum culture revealed Suha. Patient was started on empiric antibiotic. CXR revealed cardiomegaly. COPD Trial of theophylline started . Antitussive provided as needed. Singulair provided at nighttime. Patient remained afebrile, no leukocytosis DVT and GI prophylaxis provided Blood pressure was managed with calcium channel steph Antiplatelet therapy with Plavix continued. Seizure precaution maintained. Dilantin continued. No evidence of seizure activity while in the hospital. Patient complained of left knee pain. MRI Left knee revealed moderate sprain of the medial patellofemoral ligament and the anterior fibers of MCL. Complex tear and degeneration of the medial meniscus involving the posterior horn and body. Associated moderate arthrosis of the medial compartment and grade 4 chondrosis noted. Moderate joint effusion. Popliteal cyst. Pain management was addressed. Pain was controlled. Patient to follow-up as outpatient with orthopedic surgeon for further management. Supportive care provided. Steroids were gradually tapered and changed to Medrol Dosepak upon discharge to complete. Patient clinically stabilized and was ready for discharge home. FINAL DIAGNOSES: Acute respiratory failure-resolved Acute asthma exacerbation Cerebrovascular disease with history of CVA Hypertension Seizure disorder GERD Coronary artery disease Hypercholesterolemia Left knee pain likely due to moderate sprain and extensive complex tear and degeneration of the medial meniscus , with associated arthrosis and chondrosis ( per MRI ) DISCHARGE MEDICATIONS: See Medication Reconciliation list. DISCHARGE INSTRUCTIONS: Patient was discharged home . Follow up with primary care provider in one week. I have been assigned to dictate discharge summary for this account. I was not involved in the patient's management. Jessica Landry NP Feb 13, 2019 12:13
== END 2019-02-12 16:06 | disposition home or self-care (01) | DRG 202 ==
LOC: EDBD 11:14 → EMR 12:06 → 2E 12:33 → EDBEDREQ 14:51 → 2E 18:12 → 3E 02-08 11:12
DX: J45.901 Unspecified asthma with (acute) exacerbation (principal); J96.00 Acute respiratory failure, unspecified whether with hypoxia or hypercapnia; I25.10 Atherosclerotic heart disease of native coronary artery without angina pectoris; Z95.5 Presence of coronary angioplasty implant and graft; G40.909 Epilepsy, unspecified, not intractable, without status epilepticus; I10 Essential (primary) hypertension; K21.9 Gastro-esophageal reflux disease without esophagitis; Z79.02 Long term (current) use of antithrombotics/antiplatelets; F01.50 Vascular dementia, unspecified severity, without behavioral disturbance, psychotic disturbance, mood disturbance, and anxiety; G89.29 Other chronic pain; M54.9 Dorsalgia, unspecified; I67.9 Cerebrovascular disease, unspecified; E78.00 Pure hypercholesterolemia, unspecified; S83.242A Other tear of medial meniscus, current injury, left knee, initial encounter; M17.32 Unilateral post-traumatic osteoarthritis, left knee; X58.XXXA Exposure to other specified factors, initial encounter
CPT/HCPCS: 36415; 71045; 80053; 80185; 83735; 83880; 84100; 84484; 85025; 85651; 86140; 87070; 87081; 87205; 93005; 94640; 94664; 96374; 99285; J7620

== ENCOUNTER 2019-02-24 20:44 | Inpatient (IN) | payer MEDICARE, MEDICAID ==
[~2019-02-24] VITALS: Ht 162.6 cm; Wt 72.2 kg
[~2019-02-24 20:44] MED LIST changes: +AMOXAPINE25 MG ORAL
[2019-02-24] MEDS ORDERED: Solu-MEDROL 125mg Inj IVP ONE (20:45)
[2019-02-24] MEDS ORDERED: Albuterol/Ipratropium 3ml neb HHN ONE (20:45)
--- NOTE | 2019-02-24 20:50 | NUR ---
ED Nurse Note: DUNCAN CROFT 27 D/T SOB FROM HOME PT RECEIVED TWO BREATHING TREATMENTS. AO4. NAD. VSS. SPO2 97% ROOMAIR
--- NOTE | 2019-02-24 20:55 | NUR ---
ED Nurse Note: IV ACCESS ESTABLISHED PRIOR TO ARRIVAL. BLOOD COLLECTED; SENT DOWN TO LAB.
--- NOTE | 2019-02-24 21:05 | Emergency Room Report ---
History of Present Illness General Chief Complaint: Dyspnea/Respdistress Source: Patient Present Illness HPI This is an 84-year-old Mongolian speaking female with a history of asthma/COPD and high blood pressure. She presents with shortness of breath. Onset tonight. She had multiple admission for the same symptoms. Just recently admitted 2 weeks ago. No fever chills but worse with exertion. Worse with coughing. Has wheezing. Denies any nausea or vomiting. Denies any abdominal pain. Does have chest tightness from shortness of breath. Allergies: Uncoded Allergies: Canned Food (Allergy, Unknown, 03/22/18) Nausea/Vomitting/Indigestion Patient History Past Medical History: see triage record, old chart reviewed, HTN, asthma Past Surgical History: other Pertinent Family History: none Social History: Denies: smoking Now: No Immunizations: other Reviewed Nursing Documentation: PMH: Agreed; PSxH: Agreed Nursing Documentation-PMH Past Medical History: No History, Except For Hx Cardiac Problems: Yes Hx Hypertension: Yes - CVA Hx Asthma: Yes Hx COPD: Yes Hx Cancer: No Hx Gastrointestinal Problems: Yes Hx Neurological Problems: Yes Hx Cerebrovascular Accident: Yes Hx Transient Ischemic Attacks: Yes Hx Seizures: Yes Hx Epilepsy: Yes Review of Systems Eye: Denies: eye pain, blurred vision ENT: Denies: ear pain, nose congestion, throat swelling Respiratory: Reports: shortness of breath; Denies: cough Cardiovascular: Denies: chest pain, palpitations Gastrointestinal: Denies: abdominal pain, diarrhea, nausea, vomiting Musculoskeletal: Denies: back pain, joint pain Skin: Denies: rash Neurological: Denies: headache, numbness Endocrine: Denies: increased thirst, increased urine Hematologic/Lymphatic: Denies: easy bruising All Other Systems: negative except mentioned in HPI Physical Exam Vital Signs Date Time Temp Pulse Resp B/P (MAP) Pulse Ox O2 Delivery O2 Flow Rate FiO2 02/24/19 20:45 98.1 100 26 174/82 (112) 97 Room Air Vitals with high blood pressure Sp02 EP Interpretation: reviewed, normal General Appearance: well appearing, alert, mild distress Head: normocephalic, atraumatic Eyes: bilateral eye PERRL, bilateral eye EOMI ENT: hearing grossly normal, normal pharynx Neck: full range of motion, supple, no meningismus Respiratory: chest non-tender, respiratory distress, decreased breath sounds, accessory muscle use, wheezing Cardiovascular #1: regular rate, rhythm, no murmur Gastrointestinal: normal bowel sounds, non tender, no mass, no organomegaly, no bruit, non-distended Musculoskeletal: back normal, gait/station normal, normal range of motion Psychiatric: mood/affect normal Skin: warm/dry Medical Decision Making Diagnostic Impression: Primary Impression: Acute asthma exacerbation Qualified Codes: J45.901 - Unspecified asthma with (acute) exacerbation Additional Impression: Acute hypokalemia ER Course She presents with acute asthma exacerbation. Symptoms improved after placing her on BiPAP and breathing treatment. Steroids also given. She is much better to the point that able to get off of BiPAP. No evidence of ACS, PE, dissection to name a few. Patient will be admitted for further work-up. I discussed the case with Dr. Juares and Dr. Garcia. EKG Diagnostic Results Rate: normal Rhythm: NSR ST Segments: no acute changes Rhythm Strip Diag. Results EP Interpretation: yes Rate: 98 Rhythm: NSR, no PVC's, no ectopy Chest X-Ray Diagnostic Results Chest X-Ray Diagnostic Results : Chest X-Ray Ordered: Yes # of Views/Limited/Complete: 1 View Indication: Shortness of Breath EP Interpretation: Yes Interpretation: no consolidation, no effusion, no pneumothorax, no acute cardiopulmonary disease Impression: No acute disease Electronically Signed by: Dandre Reyes MD Last Vital Signs Date Time Temp Pulse Resp B/P (MAP) Pulse Ox O2 Delivery O2 Flow Rate FiO2 02/24/19 20:45 98.1 100 26 174/82 (112) 97 Room Air Status: improved Disposition: ADMITTED INPATIENT Condition: Serious Dandre Reyes MD Feb 24, 2019 21:05
[2019-02-24 21:16] LABS: BASOPHILS % (AUTO) 0.6 % (0.0-2.0); EOSINOPHILS % (AUTO) 2.4 % (0.0-3.0); HEMATOCRIT 35.5 % (37.0-47.0); HEMOGLOBIN 12.7 G/DL (12.0-16.0); LYMPHOCYTES % (AUTO) 22.8 % (20.0-45.0); MEAN CORPUSCULAR VOLUME 87 FL (80-99); MONOCYTES % (AUTO) 7.4 % (1.0-10.0); NEUTROPHILS % (AUTO) 66.9 % (45.0-75.0); PLATELET COUNT 206 K/UL (150-450); RED CELL DISTRIBUTION WIDTH 12.1 % (11.6-14.8); WHITE BLOOD COUNT 10.2 K/UL (4.8-10.8)
[2019-02-24 21:20] VITALS: BP 174/82
--- NOTE | 2019-02-24 21:22 | NUR ---
RESPIRATORY NOTE: PT PLACED ON BIPAP DUE TO SOB PER DR SLATER ORDERS. CURRENT SETTINGS ARE 10/5, RATE OF 12, 21% FIO2. ALARMS WERE ADJUSTED AND ARE ON AND AUDIBLE. PT PLACED OF FACIAL MASK. NO FACIAL WOUNDS FOUND UPON INITIAL FACIAL INSPECTION. SPONGE TAPE PLACED ON PT'S FACE. BIPAP MASK AND CIRCUIT ARE SECURE AND OUT OF THE WAY. PT'S RR IS NOW WNL. PT IS TOLERATING BIPAP WELL. WILL CONTINUE TO MONITOR.
[2019-02-24 21:35] LABS: ANION GAP 12 mmol/L (5-15); BLOOD UREA NITROGEN 21 mg/dL (7-18); CALCIUM 9.1 MG/DL (8.5-10.1); CARBON DIOXIDE 29 MMOL/L (21-32); CHLORIDE 100 MMOL/L (98-107); CREATININE 0.7 MG/DL (0.55-1.30); POTASSIUM 3.1 MMOL/L (3.5-5.1); SODIUM 141 MMOL/L (136-145)
[2019-02-24] MEDS ORDERED: Albuterol ud Inhalation HHN ONE (21:45)
[2019-02-24 21:46] LABS: ALANINE AMINOTRANSFERASE 32 U/L (12-78); ALBUMIN 3.6 G/DL (3.4-5.0); ALBUMIN/GLOBULIN RATIO 1.1 (1.0-2.7); ALKALINE PHOSPHATASE 99 U/L (46-116); ASPARTATE AMINO TRANSFERASE 10 U/L (15-37); BILIRUBIN,TOTAL 0.2 MG/DL (0.2-1.0)
--- NOTE | 2019-02-24 21:55 | NUR ---
ED Nurse Note: MRSA SWAB COLLECTED; SENT DOWN TO LAB. PATIENT REFUSED VRE CRE SWAB
[2019-02-24 22:13] VITALS: BP 149/66
[2019-02-24] MEDS ORDERED: Morphine Sulfate 2mg/ml Inj(IV/IM USE ONLY) IVP PRN (22:15)
[2019-02-24] MEDS ORDERED: Nitroglycerin Subl 0.4mg tab SL PRN (22:15)
[2019-02-24] MEDS ORDERED: LORazepam Inj 2mg/ml 1ml IV PRN (22:15)
--- NOTE | 2019-02-24 22:35 | NUR ---
NURSE NOTES: Telephone report taken from DEBBIE Talley RN. RN Chrsi took report as well.
--- NOTE | 2019-02-24 22:40 | NUR ---
NURSE NOTES: Patient brought to floor by ER transport, Tristan. Patient able to ambulate from [facility] to room bed. A&Ox4, speaks both Ukrainian and French. Minimal signs of distress on room air, SOB onset with activity and long conversation. Saturation is within normal limits, but patient does have productive cough, clear/thin sputum. Difficulty with deep breaths. Skin is thin but intact. Has some pitting edema on left lower extremity, due to previous MRI and knee issue. IV c/d/i and patent, no fluids running currently. States she is comfortable sleeping in seated tripod position. Contacted MD to verify order, awaiting return call. Bed in lowest position, call light within reach.
--- NOTE | 2019-02-24 22:40 | NUR ---
TRANSFER TO FLOOR: Patient transferred to MED SURG 312-1 as ordered, per MD JUNIOR. Report given to AMMY MYLES. PATIENT INSTABLE CONDITION.BREATHING EVEN AND UNLABORED; SPO2 97%. BELONGINGS LIST COMPLETED WITH RECEIVING RN
[2019-02-25] VITALS (7 sets, daily range): BP systolic 134–165; BP diastolic 72–91
[2019-02-25] MEDS ORDERED: Zosyn 2.25gm inj ONE (02:01)
[2019-02-25] MEDS: Piperacillin/Tazobactam 2.25 GM in D5W 55 ML IV SCH ×2 (02:05→09:06)
--- NOTE | 2019-02-25 02:10 | NUR ---
NURSE NOTES: Patient is having headache and hypertension. Contacted MD for new orders, Awaiting return call.
[2019-02-25] MEDS: Solu-MEDROL 125mg Inj IV SCH ×4 (03:06→21:29)
[2019-02-25] MEDS: Albuterol/Ipratropium 3ml neb HHN PRN ×2 (04:55→10:56)
--- NOTE | 2019-02-25 07:29 | NUR ---
HAND-OFF: Report given to AMMY Villanueva. Patient is awake and seated at bedside, VS stable.
--- NOTE | 2019-02-25 07:50 | NUR ---
NURSE NOTES: Received report from AMMY Gilmore. Patient a/o x4, sitting on the chair. No respiratory distress noted. Denies any pain at this time. IV line is patent. Skin is intact. Bed in lowest position, call light within reach. Will continue to monitor.
[2019-02-25] MEDS: Theophylline ER 100mg ORAL SCH ×2 (09:00→21:29)
[2019-02-25] MEDS: Phenytoin 100mg cap ORAL SCH ×2 (09:00→17:28)
[2019-02-25] MEDS: Atorvastatin 80mg tab ORAL SCH (09:00)
[2019-02-25] MEDS: Montelukast 10mg tablet ORAL SCH (09:00)
[2019-02-25] MEDS: Lyrica 50mg cap ORAL SCH (09:01)
[2019-02-25] MEDS: Heparin 5000 units/ml inj SUBQ SCH ×2 (09:03→21:30)
--- NOTE | 2019-02-25 11:40 | NUR ---
NURSE NOTES: Dr. Juares ordered clonidine 0.1mg q6 prn for SBP>160, Tylenol 650mg q6 prn for headache, Artificial tear q4 prn for dry eye, PT Eval. Noted and carried out.
--- NOTE | 2019-02-25 11:41 | NUR ---
CASE MANAGEMENT:REVIEW 84 YR OLD FEMALE BIBA FROM HOME CC: SOB SI: ACUTE ASTHMA EXACERBATION ACUTE HYPOKALEMIA 98.0 100 26 174/82 95% ON RA K-3.1 GLUCOSE+188 IS: HHN X2 CHILD CARE COOK ALBUTEROL HHN X1 DUONEB HHN X1 K-DUR PO X1 IV SOLUMEDROL CHEST XRAY : TO MED/SURG 3 [facility] DCP: PATIENT IS FROM HOME INTERQUAL CRITERIA MET
--- NOTE | 2019-02-25 12:07 | Consultation ---
History of Present Illness General Date patient seen: Feb 25, 2019 Chief Complaint: Dyspnea/Respdistress Present Illness HPI 84-year-old female with history of HTN, refractory asthma, CVA/TIA, seizures presents to ED for evaluation for shortness of breath. Her neighbor apparently called the paramedics. Patient states she feels a little better but still feels very short of breath. States she's been using her inhaler at home without significant relief. she has persistent cough. Denies chest pain. she received one dose of solumedrol in ER and admitted for further management. Allergies: Uncoded Allergies: Canned Food (Allergy, Unknown, 03/22/18) Nausea/Vomitting/Indigestion Medication History Scheduled Albuterol Sulfate (Ventolin Hfa), 1 PUFF INH EVERY 6 HOURS Amlodipine Besylate* (Amlodipine Besylate*), 5 MG ORAL DAILY, (Reported) Atorvastatin (Lipitor), 40 MG ORAL DAILY, (Reported) Baclofen* (Baclofen*), 10 MG ORAL DAILY, (Reported) Budesonide (Pulmicort), 0.25 MG HHN EVERY 12 HOURS Clopidogrel* (Clopidogrel*), 75 MG ORAL DAILY, (Reported) Dexlansoprazole (Dexilant), 60 MG ORAL DAILY, (Reported) Isosorbide Dinitrate* (Isordil*), 30 MG ORAL DAILY, (Reported) Labetalol Hcl* (Normodyne*), 100 MG ORAL EVERY 12 HOURS, (Reported) Levocetirizine Dihydrochloride (Levocetirizine Dihydrochloride), 5 MG ORAL DAILY , (Reported) Levofloxacin (Levofloxacin*), 500 MG ORAL DAILY, (Reported) Lidocaine (Xylocaine-Mpf 1% Vial), 10 ML INJ Q8HR, (Reported) Losartan/Hydrochlorothiazide (Losartan-Hctz 100-12.5 Mg Tab), 1 TAB ORAL DAILY, (Reported) Methylprednisolone (Methylprednisolone*), 4 MG ORAL DIRECTED Methylprednisolone (Methylprednisolone*), 4 MG ORAL DIRECTED Montelukast Sodium* (Montelukast Sodium*), 10 MG ORAL DAILY, (Reported) No Known Medications* (NKM - No Known Medications*), 0 ., (Reported) Phenytoin Sodium Extended* (Phenytoin Sodium Extended*), 100 MG ORAL BID, ( Reported) Pregabalin (Lyrica), 50 MG ORAL DAILY, (Reported) [Levofloxacin 250mg], 250 MG ORAL DAILY Miscellaneous Medications Amoxapine (Amoxapine), 25 MG ORAL, (Reported) Unable to Obtain Medications (Unable To Obtain Meds), (Reported) [Bevespi], (Reported) Patient History Healthcare decision maker Resuscitation status Full Code Advanced Directive on File Past Medical/Surgical History Past Medical/Surgical History: (1) Allergic asthma (2) Vascular dementia (3) Seizure disorder (4) CAD (coronary artery disease) (5) HTN (hypertension) (6) Chronic back pain Review of Systems Respiratory: Reports: shortness of breath All Other Systems: negative except mentioned in HPI Physical Exam General Appearance: WD/WN Lines, tubes and drains: peripheral HEENT: normocephalic, atraumatic Neck: non-tender, normal alignment Respiratory/Chest: chest wall non-tender, lungs clear Breasts: no masses Cardiovascular/Chest: normal peripheral pulses, normal rate Abdomen: hyperactive bowel sounds Genitourinary/Rectal: normal prostate exam Extremities: normal range of motion Last 24 Hour Vital Signs Date Time Temp Pulse Resp B/P (MAP) Pulse Ox O2 Delivery O2 Flow Rate FiO2 02/25/19 11:01 94 18 100 Room Air 02/25/19 10:50 94 20 97 Room Air 02/25/19 09:00 Room Air 02/25/19 08:59 102 147/78 02/25/19 08:00 97.9 102 20 147/78 (101) 96 02/25/19 07:00 82 18 97 Room Air 02/25/19 05:05 91 20 98 Room Air 02/25/19 04:55 91 22 98 Room Air 02/25/19 04:31 98.1 86 16 141/80 (100) 96 02/25/19 04:00 98.1 86 16 165/91 (115) 96 02/25/19 00:00 97.5 93 22 134/83 (100) 96 02/24/19 23:17 Room Air 02/24/19 22:40 98.1 86 21 149/66 95 Room Air 21 02/24/19 22:13 98.1 86 21 149/66 95 Room Air 02/24/19 21:57 82 21 100 Room Air 21 02/24/19 21:50 103 24 95 Room Air 21 02/24/19 21:38 96 21 95 02/24/19 21:22 98 24 100 Facial 21 02/24/19 21:22 98 24 100 Bi-Pap 21 02/24/19 21:20 98.1 98 21 174/82 100 Room Air 21 02/24/19 21:20 83 21 Room Air 21 02/24/19 21:11 83 21 100 Room Air 21 02/24/19 21:00 100 22 98 Room Air 21 02/24/19 21:00 100 22 98 Room Air 21 02/24/19 20:45 98.1 100 26 174/82 (112) 97 Room Air Intake and Output 02/24/19 02/25/19 19:00 07:00 Intake Total 650 ml Balance 650 ml Intake Oral 650 ml # Voids 2 Laboratory Tests Test 02/24/19 20:15 White Blood Count 10.2 K/UL (4.8-10.8) Red Blood Count 4.10 M/UL (4.20-5.40) L Hemoglobin 12.7 G/DL (12.0-16.0) Hematocrit 35.5 % (37.0-47.0) L Mean Corpuscular Volume 87 FL (80-99) Mean Corpuscular Hemoglobin 31.0 PG (27.0-31.0) Mean Corpuscular Hemoglobin Concent 35.8 G/DL (32.0-36.0) Red Cell Distribution Width 12.1 % (11.6-14.8) Platelet Count 206 K/UL (150-450) Mean Platelet Volume 5.9 FL (6.5-10.1) L Neutrophils (%) (Auto) 66.9 % (45.0-75.0) Lymphocytes (%) (Auto) 22.8 % (20.0-45.0) Monocytes (%) (Auto) 7.4 % (1.0-10.0) Eosinophils (%) (Auto) 2.4 % (0.0-3.0) Basophils (%) (Auto) 0.6 % (0.0-2.0) Sodium Level 141 MMOL/L (136-145) Potassium Level 3.1 MMOL/L (3.5-5.1) L Chloride Level 100 MMOL/L (98-107) Carbon Dioxide Level 29 MMOL/L (21-32) Anion Gap 12 mmol/L (5-15) Blood Urea Nitrogen 21 mg/dL (7-18) H Creatinine 0.7 MG/DL (0.55-1.30) Estimat Glomerular Filtration Rate mL/min (>60) Glucose Level 188 MG/DL (74-106) H Calcium Level 9.1 MG/DL (8.5-10.1) Total Bilirubin 0.2 MG/DL (0.2-1.0) Aspartate Amino Transf (AST/SGOT) 10 U/L (15-37) L Alanine Aminotransferase (ALT/SGPT) 32 U/L (12-78) Alkaline Phosphatase 99 U/L (46-116) Troponin I 0.000 ng/mL (0.000-0.056) Pro-B-Type Natriuretic Peptide 83 pg/mL (0-125) Total Protein 7.0 G/DL (6.4-8.2) Albumin 3.6 G/DL (3.4-5.0) Globulin 3.4 g/dL Albumin/Globulin Ratio 1.1 (1.0-2.7) Height (Feet): 5 Height (Inches): 4.00 Weight (Pounds): 140 Medications Current Medications Medications (Trade) Dose Ordered Sig/[place] Route PRN Reason Start Time Stop Time Status Last Admin Dose Admin Acetaminophen (Tylenol) 650 mg Q6H PRN ORAL Mild Pain/Temp > 100.5 02/25/19 11:45 03/27/19 11:44 Albuterol/ Ipratropium (Albuterol/ Ipratropium) 3 ml EVERY 4 HOURS PRN HHN dyspnea 02/24/19 22:15 03/01/19 22:14 02/25/19 10:56 Amlodipine Besylate (Norvasc) 5 mg DAILY ORAL 02/25/19 09:00 03/27/19 08:59 02/25/19 08:59 Artificial Tears (Akwa-Tears) 1 drop Q4H PRN BOTH EYES Dry Eyes 02/25/19 11:45 03/27/19 11:44 Atorvastatin Calcium (Lipitor) 40 mg DAILY ORAL 02/25/19 09:00 03/27/19 08:59 02/25/19 09:00 Baclofen (Lioresal) 10 mg DAILY ORAL 02/25/19 09:00 03/27/19 08:59 02/25/19 08:59 Clonidine HCl (Catapres Tab) 0.1 mg Q6H PRN ORAL SBP > 160 02/25/19 11:45 03/27/19 11:44 Clopidogrel Bisulfate (Plavix) 75 mg DAILY ORAL 02/25/19 09:00 03/27/19 08:59 02/25/19 08:59 Dextrose (Dextrose 50%) 25 ml Q30M PRN IV Hypoglycemia 02/24/19 22:15 03/26/19 22:14 Dextrose (Dextrose 50%) 50 ml Q30M PRN IV Hypoglycemia 02/24/19 22:15 03/26/19 22:14 Heparin Sodium (Porcine) (Heparin 5000 units/ml) 5,000 units EVERY 12 HOURS SUBQ 02/25/19 09:00 03/27/19 08:59 02/25/19 09:03 Lorazepam (Ativan 2mg/ml 1ml) 0.5 mg Q4H PRN IV For Anxiety 02/24/19 22:15 03/03/19 22:14 Methylprednisolone Sodium Succinate (Solu-MEDROL) 60 mg Q6H IV 02/25/19 03:00 03/27/19 02:59 02/25/19 08:59 Montelukast Sodium (Singulair) 10 mg DAILY ORAL 02/25/19 09:00 03/27/19 08:59 02/25/19 09:00 Morphine Sulfate (Morphine Sulfate) 2 mg EVERY 4 HOURS PRN IVP severe pain 7-10 02/24/19 22:15 03/03/19 22:14 Nitroglycerin (Ntg) 0.4 mg Q5M X 3 DOSES PRN SL Prn Chest Pain 02/24/19 22:15 03/26/19 22:14 Ondansetron HCl (Zofran) 4 mg Q6H PRN IVP Nausea & Vomiting 02/24/19 22:15 03/26/19 22:14 Phenytoin (Dilantin) 100 mg BID ORAL 02/25/19 09:00 03/27/19 08:59 02/25/19 09:00 Piperacillin Sod/ Tazobactam Sod 3.375 gm/Sodium Chloride 110 ml @ 27.5 mls/hr EVERY 8 HOURS IVPB 02/25/19 15:00 03/02/19 14:59 Pregabalin (Lyrica) 50 mg DAILY ORAL 02/25/19 09:00 03/27/19 08:59 02/25/19 09:01 Temazepam (Restoril) 15 mg HSPRN PRN ORAL Insomnia 02/24/19 22:15 03/03/19 22:14 Theophylline (Fabrice-Dur) 100 mg EVERY 12 HOURS ORAL 02/25/19 09:00 03/27/19 08:59 02/25/19 09:00 Assessment/Plan Problem List: (1) Acute respiratory failure ICD Codes: J96.00 - Acute respiratory failure, unspecified whether with hypoxia or hypercapnia SNOMED: 18250618 (2) Acute asthma exacerbation ICD Codes: J45.901 - Unspecified asthma with (acute) exacerbation SNOMED: 157551048 Qualifiers: Qualified Codes: J45.901 - Unspecified asthma with (acute) exacerbation (3) Allergic asthma ICD Codes: J45.909 - Unspecified asthma, uncomplicated SNOMED: 529128405, 893818691 (4) CAD (coronary artery disease) ICD Codes: I25.10 - Atherosclerotic heart disease of [place] coronary artery without angina pectoris SNOMED: 09372301 (5) HTN (hypertension) ICD Codes: I10 - Essential (primary) hypertension SNOMED: 56952961 (6) Seizure disorder ICD Codes: G40.909 - Epilepsy, unspecified, not intractable, without status epilepticus SNOMED: 192605437 (7) GERD (gastroesophageal reflux disease) ICD Codes: K21.9 - Gastro-esophageal reflux disease without esophagitis SNOMED: 756122975 (8) Cerebral vascular disease ICD Codes: I67.9 - Cerebrovascular disease, unspecified SNOMED: 16687354 Assessment/Plan: respiratory treatment check sputum IV sterids iv abx symptomatic treatment dvt prophylaxis Luis A Juares MD Feb 25, 2019 12:07
--- NOTE | 2019-02-25 12:37 | Diagnostic Imaging Report ---
Indication: Dyspnea Comparison: 02/06/2019 A single view chest radiograph was obtained. Findings: Heart is enlarged. Pulmonary vascularity is mildly prominent as is pulmonary interstitium. Bones are osteopenic. IMPRESSION: Mild pulmonary vascular congestion suspected
--- NOTE | 2019-02-25 13:40 | NUR ---
PT EVALUATION NOTE Patient seen for initial evaluation, see complete evaluation for details. Patient presents with with painful L knee which interferes with patient's ability to perform transfers and ambulate. Patient also with decreased endurance and c/o SOB. Patient will benefit from skilled inpatient PT intervention to address strength, balance, safety, endurance and functional mobility. Recommend discharge to SNF for short term rehab vs home with home PT once medically cleared by MD depending on patient's progress. Patient will benefit from FWW for home use for gait stability. Addendum: 02/25/19 at 1416 by MANUELA ASH PT Amended: Links added.
--- NOTE | 2019-02-25 13:43 | NUR ---
NURSE NOTES: PT recommended using walker at home. Called Dr. Juares and ordered walker. Noted and carried out.
[2019-02-25] MEDS: Zosyn 3.375gm q8h **Extended infusion IVPB SCH ×4 (14:45→21:38)
[2019-02-25] MEDS: Artificial Tears 1.4% Op Soln BOTH EYES PRN (17:28)
--- NOTE | 2019-02-25 18:27 | History & Physical ---
History and Physical History & Physicial Dictated for Int Med-Dr Garcia no. [id number]. Hank Toure MD Feb 25, 2019 18:27
[2019-02-25] MEDS ORDERED: Albuterol/Ipratropium 3ml neb HHN SCH ×2 (19:15→21:00)
--- NOTE | 2019-02-25 19:27 | NUR ---
HAND-OFF: Report given to AMMY Cardona.
--- NOTE | 2019-02-25 19:28 | NUR ---
NURSE NOTES: Report taken from AMMY Villanueva. Patient is awake and seated at bedside, A&Ox4. No signs of distress on room air. No complaints of pain. IV site c/d/i and patent, no fluids running currently. Patients skin is thin but intact. Swelling noted on the left lower leg, pitting +1. Patient asked if she can skip 0400 vitals so she can sleep. Bed in lowest position, call light within reach.
--- NOTE | 2019-02-25 22:30 | History and Physical Report ---
DATE OF ADMISSION: 02/25/2019 CHIEF COMPLAINT: The patient is an 84-year-old female, who presents with complaint of shortness of breath. HISTORY OF PRESENT ILLNESS: The patient was admitted to [facility] from 02/06/2019 to 02/12/2019. Please see history and physical and discharge summary dictated at that time. The patient has a history of asthma. The patient has had multiple exacerbations over the past week. The patient states she never quite feels normal. The patient states she began to wheeze approximately a week ago. The patient also had a cough. The patient denies fever. The patient states cough is productive of a greenish phlegm. The patient presented to [facility] emergency room. The patient is admitted with acute exacerbation of asthma with purulent bronchitis. REVIEW OF SYSTEMS: CONSTITUTIONAL: The patient denies weight loss or weight gain. The patient denies fevers or chills. HEENT: The patient denies ear or throat pain. The patient denies headache. CARDIOVASCULAR: The patient denies palpitation or chest pain. CHEST: The patient complains of wheezes as above. The patient complains of shortness of breath as above. ABDOMEN: The patient denies nausea, vomiting, diarrhea, or constipation. GENITOURINARY: The patient denies dysuria or increased frequency of urination. NEUROMUSCULAR: The patient denies seizures or generalized weakness. PAST MEDICAL HISTORY: Significant for: 1. Asthma. 2. History of hemorrhagic cerebrovascular accident. 3. Hypertension. 4. Hypercholesterolemia. 5. Gastroesophageal reflux disease. 6. Seizure disorder. 7. Coronary artery disease, status post stent placement in November of 2017. PAST SURGICAL HISTORY: Significant for: 1. Appendectomy. 2. Cardiac catheterization in November of 2017 with stent placement. CURRENT MEDICATIONS: 1. Albuterol metered-dose inhaler two puffs p.o. 4 times a day p.r.n. 2. Amlodipine 5 mg p.o. daily. 3. Amoxapine 25 mg p.o. daily. 4. Atorvastatin 40 mg p.o. daily. 5. Baclofen 10 mg p.o. 3 times daily p.r.n. 6. Pulmicort hand-held nebulizer twice daily. 7. Plavix 75 mg p.o. daily. 8. Dexilant 60 mg p.o. daily. 9. Isordil 30 mg p.o. daily. 10. Labetalol 100 mg p.o. twice daily. 11. Xyzal 5 mg p.o. daily. 12. Losartan/hydrochlorothiazide 100/12.5 one tablet p.o. daily. 13. Singulair 10 mg p.o. daily. 14. Dilantin 100 mg p.o. twice daily. 15. Lyrica 50 mg p.o. daily. ALLERGIES: No known drug allergies. SOCIAL HISTORY: The patient is single and lives alone. The patient denies tobacco use. The patient denies alcohol use. PHYSICAL EXAMINATION: VITAL SIGNS: Temperature 98.1, respirations 26, pulse 100, blood pressure 174/82, and pulse ox 97% on room air. GENERAL: The patient is a well-developed and well-nourished female, in no apparent distress. HEENT: Eyes, pupils are equal and responsive to light and accommodation. Extraocular movements are intact. NECK: Supple without lymphadenopathy. CHEST: Diffuse expiratory wheezes in bilateral lung perez. Otherwise, clear to auscultation without rales. CARDIOVASCULAR: Slightly tachycardic, regular rhythm. S1 and S2 are normal without murmurs, rubs, or gallops. ABDOMEN: Soft, nontender, and nondistended. Positive bowel sounds. No evidence of hepatosplenomegaly. Currently, no rebound or guarding noted. EXTREMITIES: Negative for clubbing, cyanosis, or edema. RECTAL/GENITAL: Not performed. NEUROLOGIC: Cranial nerves II through XII are grossly intact without focal deficits. LABORATORY STUDIES: WBC 10.3, hemoglobin 12.7, hematocrit 35.5, and platelets 206,000. Sodium 141, potassium 3.1, chloride 100, CO2 29, BUN 21, creatinine 0.7, and glucose 188. Troponin 0.0. Chest x-ray was reported as a mild pulmonary vascular congestion. ASSESSMENT: This is an 84-year-old female. 1. Acute exacerbation of asthma. 2. Purulent bronchitis. 3. Respiratory distress. 4. Shortness of breath. 5. Hypertension. 6. Hypercholesterolemia. 7. Gastroesophageal reflux disease. 8. Seizure disorder. 9. Coronary artery disease. 10. Cerebrovascular disease. TREATMENT: 1. Respiratory distress/asthma exacerbation/purulent bronchitis. A Pulmonary consultation has been obtained with Dr. Luis A Juares. The patient has been started on intravenous Zosyn and Solu-Medrol. We will follow recommendations of Pulmonary. The patient is currently receiving DuoNebs nebulized q.4 hours. 2. Hypertension. Continue amlodipine and losartan/hydrochlorothiazide as above. 3. Hypercholesterolemia. Continue atorvastatin as above. 4. Gastroesophageal reflux disease. The patient has been started on Protonix as needed. 5. Seizure disorder. Continue Dilantin as above. 6. Coronary artery disease. 7. Cerebrovascular disease. Hank Toure M.D. DR: YAO JOB#: [id number] CC:
[2019-02-25] MEDS: Albuterol/Ipratropium 3ml neb HHN SCH (23:53)
[2019-02-26] VITALS: BP 130/75
[2019-02-26] MEDS: Solu-MEDROL 125mg Inj IV SCH ×4 (03:07→20:41)
[2019-02-26] MEDS: Albuterol/Ipratropium 3ml neb HHN SCH ×6 (03:28→22:55)
[2019-02-26 04:00] VITALS: BP 149/80
[2019-02-26] MEDS: Zosyn 3.375gm q8h **Extended infusion IVPB SCH ×6 (05:51→21:13)
[2019-02-26] MEDS ORDERED: guaiFENesin w/Codeine 5ml Liq ud ORAL PRN (06:30)
--- NOTE | 2019-02-26 07:41 | NUR ---
NURSE NOTES: AWAKE/ALERT. GETTING RESP.TREATMENT. IN NO ACUTE DISTRESS.
[2019-02-26 08:02] VITALS: BP 138/85
[2019-02-26] MEDS: Montelukast 10mg tablet ORAL SCH (08:28)
[2019-02-26] MEDS: Atorvastatin 80mg tab ORAL SCH (08:29)
[2019-02-26] MEDS: Phenytoin 100mg cap ORAL SCH ×2 (08:29→17:24)
[2019-02-26] MEDS: Theophylline ER 100mg ORAL SCH ×2 (08:30→20:41)
[2019-02-26] MEDS: Lyrica 50mg cap ORAL SCH (08:30)
[2019-02-26] MEDS: Heparin 5000 units/ml inj SUBQ SCH ×2 (08:33→20:42)
[2019-02-26 12:00] VITALS: BP 172/88
[2019-02-26] MEDS: Artificial Tears 1.4% Op Soln BOTH EYES PRN (12:50)
--- NOTE | 2019-02-26 14:29 | Pulmonology Progress Note ---
Assessment/Plan Problems: (1) Acute respiratory failure (2) Acute asthma exacerbation (3) Allergic asthma (4) CAD (coronary artery disease) (5) HTN (hypertension) (6) Seizure disorder (7) GERD (gastroesophageal reflux disease) (8) Cerebral vascular disease Assessment/Plan respiratory treatment check sputum IV sterids iv abx symptomatic treatment dvt prophylaxis Subjective ROS Limited/Unobtainable: No Constitutional: Reports: no symptoms HEENT: Repors: no symptoms Allergies: Uncoded Allergies: Canned Food (Allergy, Unknown, 03/22/18) Nausea/Vomitting/Indigestion Objective Last 24 Hour Vital Signs Date Time Temp Pulse Resp B/P (MAP) Pulse Ox O2 Delivery O2 Flow Rate FiO2 02/26/19 12:00 97.6 91 18 172/88 (116) 95 02/26/19 11:14 97 16 98 Room Air 21 02/26/19 11:04 99 20 96 Room Air 21 02/26/19 08:42 Room Air 02/26/19 08:31 107 138/85 02/26/19 08:02 99.8 107 19 138/85 (102) 96 02/26/19 07:18 83 16 98 Room Air 21 02/26/19 07:10 80 20 98 Room Air 21 02/26/19 07:10 78 22 97 Room Air 21 02/26/19 04:00 97.5 96 20 149/80 (103) 95 02/26/19 03:47 166/100 02/26/19 03:30 86 18 99 Room Air 21 02/26/19 03:18 83 18 99 Room Air 21 02/26/19 00:03 89 20 99 Room Air 21 02/26/19 00:00 97.8 90 22 130/75 (93) 97 02/25/19 23:53 90 20 96 Room Air 21 02/25/19 21:00 Room Air 02/25/19 20:00 97.7 95 17 144/76 (98) 94 02/25/19 19:29 89 20 98 Room Air 21 02/25/19 19:17 81 20 98 Room Air 21 02/25/19 19:17 81 20 98 Room Air 21 02/25/19 16:00 97.9 91 20 157/82 (107) 96 Intake and Output 02/25/19 02/26/19 19:00 07:00 Intake Total 400 ml 480 ml Balance 400 ml 480 ml Intake Oral 400 ml 480 ml # Voids 2 4 General Appearance: WD/WN HEENT: normocephalic, atraumatic Respiratory/Chest: chest wall non-tender, lungs clear, crackles/rales Breasts: no masses Cardiovascular: normal rate, regular rhythm, no JVD Abdomen: no organomegaly Genitourinary: normal external genitalia Skin: no rash Current Medications Medications (Trade) Dose Ordered Sig/Mecca Route PRN Reason Start Time Stop Time Status Last Admin Dose Admin Acetaminophen (Tylenol) 650 mg Q6H PRN ORAL Mild Pain/Temp > 100.5 02/25/19 11:45 03/27/19 11:44 Albuterol/ Ipratropium (Albuterol/ Ipratropium) 3 ml Q4H HHN 02/25/19 23:00 03/02/19 22:59 02/26/19 11:14 Amlodipine Besylate (Norvasc) 5 mg DAILY ORAL 02/25/19 09:00 03/27/19 08:59 02/26/19 08:31 Artificial Tears (Akwa-Tears) 1 drop Q4H PRN BOTH EYES Dry Eyes 02/25/19 11:45 03/27/19 11:44 02/26/19 12:50 Atorvastatin Calcium (Lipitor) 40 mg DAILY ORAL 02/25/19 09:00 03/27/19 08:59 02/26/19 08:29 Baclofen (Lioresal) 10 mg DAILY ORAL 02/25/19 09:00 03/27/19 08:59 02/26/19 08:29 Clonidine HCl (Catapres Tab) 0.1 mg Q6H PRN ORAL SBP > 160 02/25/19 11:45 03/27/19 11:44 02/26/19 03:47 Clopidogrel Bisulfate (Plavix) 75 mg DAILY ORAL 02/25/19 09:00 03/27/19 08:59 02/26/19 08:29 Dextrose (Dextrose 50%) 25 ml Q30M PRN IV Hypoglycemia 02/24/19 22:15 03/26/19 22:14 Dextrose (Dextrose 50%) 50 ml Q30M PRN IV Hypoglycemia 02/24/19 22:15 03/26/19 22:14 Guaifenesin/ Codeine Phosphate (Robitussin with codeine) 10 ml Q6H PRN ORAL For Cough 02/26/19 06:30 03/28/19 06:29 02/26/19 07:50 Heparin Sodium (Porcine) (Heparin 5000 units/ml) 5,000 units EVERY 12 HOURS SUBQ 02/25/19 09:00 03/27/19 08:59 02/26/19 08:33 Lorazepam (Ativan 2mg/ml 1ml) 0.5 mg Q4H PRN IV For Anxiety 02/24/19 22:15 03/03/19 22:14 Methylprednisolone Sodium Succinate (Solu-MEDROL) 60 mg Q6H IV 02/25/19 03:00 03/27/19 02:59 02/26/19 08:28 Montelukast Sodium (Singulair) 10 mg DAILY ORAL 02/25/19 09:00 03/27/19 08:59 02/26/19 08:28 Morphine Sulfate (Morphine Sulfate) 2 mg EVERY 4 HOURS PRN IVP severe pain 7-02/24/19 22:15 03/03/19 22:14 Nitroglycerin (Ntg) 0.4 mg Q5M X 3 DOSES PRN SL Prn Chest Pain 02/24/19 22:15 03/26/19 22:14 Ondansetron HCl (Zofran) 4 mg Q6H PRN IVP Nausea & Vomiting 02/24/19 22:15 03/26/19 22:14 Phenytoin (Dilantin) 100 mg BID ORAL 02/25/19 09:00 03/27/19 08:59 02/26/19 08:29 Piperacillin Sod/ Tazobactam Sod 3.375 gm/Sodium Chloride 110 ml @ 27.5 mls/hr EVERY 8 HOURS IVPB 02/25/19 15:00 03/02/19 14:59 02/26/19 14:27 Pregabalin (Lyrica) 50 mg DAILY ORAL 02/25/19 09:00 03/27/19 08:59 02/26/19 08:30 Temazepam (Restoril) 15 mg HSPRN PRN ORAL Insomnia 02/24/19 22:15 03/03/19 22:14 Theophylline (Fabrice-Dur) 100 mg EVERY 12 HOURS ORAL 02/25/19 09:00 03/27/19 08:59 02/26/19 08:30 Luis A Juares MD Feb 26, 2019 14:29
--- NOTE | 2019-02-26 14:33 | NUR ---
NURSE NOTES: left knee abrasion cleansed with ns and applied with betadine.open to air dry.
[2019-02-26 16:00] VITALS: BP 144/81
--- NOTE | 2019-02-26 17:01 | Internal Med Progress Note ---
Subjective Date of Service: Feb 26, 2019 Physician Name Hank Toure Attending Physician Sholmo Garcia MD Current Medications Medications (Trade) Dose Ordered Sig/Mecca Route PRN Reason Start Time Stop Time Status Last Admin Dose Admin Acetaminophen (Tylenol) 650 mg Q6H PRN ORAL Mild Pain/Temp > 100.5 02/25/19 11:45 03/27/19 11:44 Albuterol/ Ipratropium (Albuterol/ Ipratropium) 3 ml Q4H HHN 02/25/19 23:00 03/02/19 22:59 02/26/19 15:02 Amlodipine Besylate (Norvasc) 5 mg DAILY ORAL 02/25/19 09:00 03/27/19 08:59 02/26/19 08:31 Artificial Tears (Akwa-Tears) 1 drop Q4H PRN BOTH EYES Dry Eyes 02/25/19 11:45 03/27/19 11:44 02/26/19 12:50 Atorvastatin Calcium (Lipitor) 40 mg DAILY ORAL 02/25/19 09:00 03/27/19 08:59 02/26/19 08:29 Baclofen (Lioresal) 10 mg DAILY ORAL 02/25/19 09:00 03/27/19 08:59 02/26/19 08:29 Clonidine HCl (Catapres Tab) 0.1 mg Q6H PRN ORAL SBP > 160 02/25/19 11:45 03/27/19 11:44 02/26/19 03:47 Clopidogrel Bisulfate (Plavix) 75 mg DAILY ORAL 02/25/19 09:00 03/27/19 08:59 02/26/19 08:29 Dextrose (Dextrose 50%) 25 ml Q30M PRN IV Hypoglycemia 02/24/19 22:15 03/26/19 22:14 Dextrose (Dextrose 50%) 50 ml Q30M PRN IV Hypoglycemia 02/24/19 22:15 03/26/19 22:14 Guaifenesin/ Codeine Phosphate (Robitussin with codeine) 10 ml Q6H PRN ORAL For Cough 02/26/19 06:30 03/28/19 06:29 02/26/19 07:50 Heparin Sodium (Porcine) (Heparin 5000 units/ml) 5,000 units EVERY 12 HOURS SUBQ 02/25/19 09:00 03/27/19 08:59 02/26/19 08:33 Lorazepam (Ativan 2mg/ml 1ml) 0.5 mg Q4H PRN IV For Anxiety 02/24/19 22:15 03/03/19 22:14 Methylprednisolone Sodium Succinate (Solu-MEDROL) 60 mg Q6H IV 02/25/19 03:00 03/27/19 02:59 02/26/19 15:10 Montelukast Sodium (Singulair) 10 mg DAILY ORAL 02/25/19 09:00 03/27/19 08:59 02/26/19 08:28 Morphine Sulfate (Morphine Sulfate) 2 mg EVERY 4 HOURS PRN IVP severe pain 7-02/24/19 22:15 03/03/19 22:14 Nitroglycerin (Ntg) 0.4 mg Q5M X 3 DOSES PRN SL Prn Chest Pain 02/24/19 22:15 03/26/19 22:14 Ondansetron HCl (Zofran) 4 mg Q6H PRN IVP Nausea & Vomiting 02/24/19 22:15 03/26/19 22:14 Phenytoin (Dilantin) 100 mg BID ORAL 02/25/19 09:00 03/27/19 08:59 02/26/19 08:29 Piperacillin Sod/ Tazobactam Sod 3.375 gm/Sodium Chloride 110 ml @ 27.5 mls/hr EVERY 8 HOURS IVPB 02/25/19 15:00 03/02/19 14:59 02/26/19 14:27 Pregabalin (Lyrica) 50 mg DAILY ORAL 02/25/19 09:00 03/27/19 08:59 02/26/19 08:30 Temazepam (Restoril) 15 mg HSPRN PRN ORAL Insomnia 02/24/19 22:15 03/03/19 22:14 Theophylline (Fabrice-Dur) 100 mg EVERY 12 HOURS ORAL 02/25/19 09:00 03/27/19 08:59 02/26/19 08:30 Allergies: Uncoded Allergies: Canned Food (Allergy, Unknown, 03/22/18) Nausea/Vomitting/Indigestion Objective Last Vital Signs Date Time Temp Pulse Resp B/P (MAP) Pulse Ox O2 Delivery O2 Flow Rate FiO2 02/26/19 16:00 97.4 110 20 144/81 (102) 95 02/26/19 15:02 Room Air 21 Intake and Output 02/25/19 02/26/19 19:00 07:00 Intake Total 400 ml 480 ml Balance 400 ml 480 ml Intake Oral 400 ml 480 ml # Voids 2 4 Objective PHYSICAL EXAMINATION: GENERAL: The patient is a well-developed and well-nourished female, in no apparent distress. HEENT: Eyes, pupils are equal and responsive to light and accommodation. Extraocular movements are intact. NECK: Supple without lymphadenopathy. CHEST: Diffuse expiratory wheezes in bilateral lung perez. Otherwise, clear to auscultation without rales. CARDIOVASCULAR: Slightly tachycardic, regular rhythm. S1 and S2 are normal without murmurs, rubs, or gallops. ABDOMEN: Soft, nontender, and nondistended. Positive bowel sounds. No evidence of hepatosplenomegaly. Currently, no rebound or guarding noted. EXTREMITIES: Negative for clubbing, cyanosis, or edema. RECTAL/GENITAL: Not performed. NEUROLOGIC: Cranial nerves II through XII are grossly intact without focal deficits. Assessment/Plan Assessment/Plan ASSESSMENT: This is an 84-year-old female. 1. Acute exacerbation of asthma. 2. Purulent bronchitis. 3. Respiratory distress. 4. Shortness of breath. 5. Hypertension. 6. Hypercholesterolemia. 7. Gastroesophageal reflux disease. 8. Seizure disorder. 9. Coronary artery disease. 10. Cerebrovascular disease. TREATMENT: 1. Respiratory distress/asthma exacerbation/purulent bronchitis. A Pulmonary consultation has been obtained with Dr. Luis A Juares. The patient has been started on intravenous Zosyn and Solu-Medrol. We will follow recommendations of Pulmonary. The patient is currently receiving DuoNebs nebulized q.4 hours. 2. Hypertension. Continue amlodipine and losartan/hydrochlorothiazide as above. 3. Hypercholesterolemia. Continue atorvastatin as above. 4. Gastroesophageal reflux disease. The patient has been started on Protonix as needed. 5. Seizure disorder. Continue Dilantin as above. 6. Coronary artery disease. 7. Cerebrovascular disease. Hank Toure MD Feb 26, 2019 17:01
[2019-02-26] MEDS ORDERED: ATORVASTATIN CA40 MG ORAL (18:20)
[2019-02-26] MEDS ORDERED: CREON DR 36,001 EACH PO (18:20)
[2019-02-26] MEDS ORDERED: FLUOXETINE HCL20 MG ORAL (18:31)
[2019-02-26] MEDS ORDERED: ANTACID ANTI-G355 ML PO (18:31)
[2019-02-26] MEDS ORDERED: VITAMIN D35000 UNIT PO (18:31)
[2019-02-26] MEDS ORDERED: HYDROXYCHLOROQ200 M1 PO (18:31)
[2019-02-26] MEDS ORDERED: IBUPROFEN600 MG ORAL (18:31)
--- NOTE | 2019-02-26 19:04 | NUR ---
NURSE NOTES: QUIET IN BED. IN NO ACUTE DISTRESS.
[2019-02-26] MEDS ORDERED: ARTIFICIAL TEAR15 ML BOTH EYES (19:05)
--- NOTE | 2019-02-26 19:14 | NUR ---
HAND-OFF: Report given to THERESA GIMENEZ.
--- NOTE | 2019-02-26 19:53 | NUR ---
NURSE NOTES: RECEIVED PATIENT SITTING IN CHAIR, NO COMPLAINTS OF PAIN AT THIS TIME. FALL PRECAUTIONS IN PLACE: CALL LIGHT, BEDSIDE TABLE AND WALKER WITHIN REACH, BED IN LOW POSITION. PLAN OF CARE REVIEWED.
[2019-02-26 20:00] VITALS: BP 131/83
[2019-02-27] MEDS: Solu-MEDROL 125mg Inj IV SCH ×4 (02:31→20:25)
[2019-02-27] MEDS: Albuterol/Ipratropium 3ml neb HHN SCH ×6 (03:08→22:59)
[2019-02-27 04:00] VITALS: BP 176/105
--- NOTE | 2019-02-27 05:16 | NUR ---
NURSE NOTES: PATIENT ALERT AND ORIENTED X3, REFUSING TO CALL FOR ASSISTANCE WHEN AMBULATING TO [place]. WANTS TO SIT IN A CHAIR. CALL LIGHT AND WALKER WITHIN REACH. INSTRUCTED PATIENT MULTIPLE TIMES TO USE CALL LIGHT, PATIENT VERBALIZED UNDERSTANDING BUT REFUSING TO CALL.EXPLAINED PATIENT FALL PRECAUTIONS, PATIENT STILL REFUSING TO CALL FOR ASSISTANCE.
[2019-02-27] MEDS: Zosyn 3.375gm q8h **Extended infusion IVPB SCH ×6 (06:04→22:06)
[2019-02-27] MEDS: Artificial Tears 1.4% Op Soln BOTH EYES PRN ×2 (06:04→20:23)
--- NOTE | 2019-02-27 07:13 | NUR ---
HAND-OFF: Report given to Laura NICOLE RN. PATIENT SITTING IN CHAIR AND EATING BREAKFAST, NO SIGNS OF DISTRESS NOTED.
--- NOTE | 2019-02-27 07:15 | NUR ---
NURSE NOTES: Patient sitting in chair eating breakfast. No complain of pain or distress at this time. No complain of SOB. IV dressing intact and dry. Bed lowest position. Call light within reach. Will continue to monitor.
[2019-02-27 08:00] VITALS: BP 162/75
--- NOTE | 2019-02-27 08:48 | NUR ---
CASE MANAGEMENT:REVIEW 02/27/19 SI: ACUTE RESPIRATORY FAILURE ACUTE ASTHMA EXACERBATION 97.5 93 18 162/75 95% ON RA IS: IV ZOSYN Q8HRS IV SOLUMEDROL Q6HRS DUONEB HHN Q4HRS NORVASC PO QD PLAVIX PO QD SINGULAR PO QD DILANTIN PO BID LYRICA PO QD HEPARIN SQ Q12 THEOPHYLLINE PO Q12 : MED/SURG 3 EAST DCP: FROM HOME
--- NOTE | 2019-02-27 09:00 | NUR ---
NURSE NOTES: Spoke to regarding shower and new order received. Order read back and carried out.
[2019-02-27] MEDS: Theophylline ER 100mg ORAL SCH ×2 (09:09→20:24)
[2019-02-27] MEDS: Lyrica 50mg cap ORAL SCH (09:09)
[2019-02-27] MEDS: Phenytoin 100mg cap ORAL SCH ×2 (09:10→17:10)
[2019-02-27] MEDS: Montelukast 10mg tablet ORAL SCH (09:10)
[2019-02-27] MEDS: Atorvastatin 80mg tab ORAL SCH (09:10)
[2019-02-27] MEDS: Heparin 5000 units/ml inj SUBQ SCH ×2 (09:11→20:29)
--- NOTE | 2019-02-27 11:20 | Pulmonology Progress Note ---
Assessment/Plan Problems: (1) Acute respiratory failure (2) Acute asthma exacerbation (3) Allergic asthma (4) CAD (coronary artery disease) (5) HTN (hypertension) (6) Seizure disorder (7) GERD (gastroesophageal reflux disease) (8) Cerebral vascular disease Assessment/Plan getting better respiratory treatment check sputum IV sterids iv abx symptomatic treatment dvt prophylaxis Subjective ROS Limited/Unobtainable: No Constitutional: Reports: no symptoms HEENT: Repors: no symptoms Respiratory: Reports: no symptoms Allergies: Uncoded Allergies: Canned Food (Allergy, Unknown, 03/22/18) Nausea/Vomitting/Indigestion Objective Last 24 Hour Vital Signs Date Time Temp Pulse Resp B/P (MAP) Pulse Ox O2 Delivery O2 Flow Rate FiO2 02/27/19 10:46 78 20 99 Room Air 21 02/27/19 10:37 70 16 97 Room Air 21 02/27/19 09:09 93 162/75 02/27/19 09:00 Room Air 02/27/19 08:00 97.5 93 18 162/75 (104) 95 02/27/19 07:20 80 22 99 Room Air 21 02/27/19 07:00 74 20 98 Room Air 21 02/27/19 07:00 74 20 98 Room Air 21 02/27/19 05:00 176/105 02/27/19 04:00 97.7 99 18 176/105 (128) 95 02/27/19 03:24 80 16 99 Room Air 21 02/27/19 03:09 77 18 98 Room Air 21 02/26/19 23:05 77 16 99 Room Air 21 02/26/19 22:55 90 18 95 Room Air 21 02/26/19 21:00 Room Air 02/26/19 20:00 98.0 101 19 131/83 (99) 95 02/26/19 19:22 85 16 99 Room Air 21 02/26/19 19:16 100 18 95 Room Air 21 02/26/19 19:13 100 18 95 Room Air 21 02/26/19 16:00 97.4 110 20 144/81 (102) 95 02/26/19 15:02 77 16 99 Room Air 21 02/26/19 14:55 76 16 96 Room Air 21 02/26/19 12:00 97.6 91 18 172/88 (116) 95 Intake and Output 02/26/19 02/27/19 19:00 07:00 Intake Total 590 ml 1070.0 ml Balance 590 ml 1070.0 ml Intake Oral 480 ml 960 ml IV Total 110 ml 110.0 ml # Voids 6 # Bowel Movements 1 General Appearance: WD/WN HEENT: normocephalic, atraumatic Respiratory/Chest: chest wall non-tender, lungs clear Cardiovascular: normal peripheral pulses, normal rate, no JVD Abdomen: normal bowel sounds, soft, non tender Genitourinary: normal external genitalia Extremities: no cyanosis, no clubbing Skin: no rash Microbiology Date/Time Source Procedure Growth Status 02/24/19 21:55 Nasal Nares MRSA Culture - Final NO METHICILLIN RESISTANT STAPH AUREUS... Complete Current Medications Medications (Trade) Dose Ordered Sig/Mecca Route PRN Reason Start Time Stop Time Status Last Admin Dose Admin Acetaminophen (Tylenol) 650 mg Q6H PRN ORAL Mild Pain/Temp > 100.5 02/25/19 11:45 03/27/19 11:44 Albuterol/ Ipratropium (Albuterol/ Ipratropium) 3 ml Q4H HHN 02/25/19 23:00 03/02/19 22:59 02/27/19 10:39 Amlodipine Besylate (Norvasc) 5 mg DAILY ORAL 02/25/19 09:00 03/27/19 08:59 02/27/19 09:09 Artificial Tears (Akwa-Tears) 1 drop Q4H PRN BOTH EYES Dry Eyes 02/25/19 11:45 03/27/19 11:44 02/27/19 06:04 Atorvastatin Calcium (Lipitor) 40 mg DAILY ORAL 02/25/19 09:00 03/27/19 08:59 02/27/19 09:10 Baclofen (Lioresal) 10 mg DAILY ORAL 02/25/19 09:00 03/27/19 08:59 02/27/19 09:10 Clonidine HCl (Catapres Tab) 0.1 mg Q6H PRN ORAL SBP > 160 02/25/19 11:45 03/27/19 11:44 02/27/19 05:00 Clopidogrel Bisulfate (Plavix) 75 mg DAILY ORAL 02/25/19 09:00 03/27/19 08:59 02/27/19 09:09 Dextrose (Dextrose 50%) 25 ml Q30M PRN IV Hypoglycemia 02/24/19 22:15 03/26/19 22:14 Dextrose (Dextrose 50%) 50 ml Q30M PRN IV Hypoglycemia 02/24/19 22:15 03/26/19 22:14 Guaifenesin/ Codeine Phosphate (Robitussin with codeine) 10 ml Q6H PRN ORAL For Cough 02/26/19 06:30 03/28/19 06:29 02/26/19 07:50 Heparin Sodium (Porcine) (Heparin 5000 units/ml) 5,000 units EVERY 12 HOURS SUBQ 02/25/19 09:00 03/27/19 08:59 02/27/19 09:11 Lorazepam (Ativan 2mg/ml 1ml) 0.5 mg Q4H PRN IV For Anxiety 02/24/19 22:15 03/03/19 22:14 Methylprednisolone Sodium Succinate (Solu-MEDROL) 60 mg Q6H IV 02/25/19 03:00 03/27/19 02:59 02/27/19 09:10 Montelukast Sodium (Singulair) 10 mg DAILY ORAL 02/25/19 09:00 03/27/19 08:59 02/27/19 09:10 Morphine Sulfate (Morphine Sulfate) 2 mg EVERY 4 HOURS PRN IVP severe pain 7-10 02/24/19 22:15 03/03/19 22:14 Nitroglycerin (Ntg) 0.4 mg Q5M X 3 DOSES PRN SL Prn Chest Pain 02/24/19 22:15 03/26/19 22:14 Ondansetron HCl (Zofran) 4 mg Q6H PRN IVP Nausea & Vomiting 02/24/19 22:15 03/26/19 22:14 Phenytoin (Dilantin) 100 mg BID ORAL 02/25/19 09:00 03/27/19 08:59 02/27/19 09:10 Piperacillin Sod/ Tazobactam Sod 3.375 gm/Sodium Chloride 110 ml @ 27.5 mls/hr EVERY 8 HOURS IVPB 02/25/19 15:00 03/02/19 14:59 02/27/19 06:04 Pregabalin (Lyrica) 50 mg DAILY ORAL 02/25/19 09:00 03/27/19 08:59 02/27/19 09:09 Temazepam (Restoril) 15 mg HSPRN PRN ORAL Insomnia 02/24/19 22:15 03/03/19 22:14 Theophylline (Fabrice-Dur) 100 mg EVERY 12 HOURS ORAL 02/25/19 09:00 03/27/19 08:59 02/27/19 09:09 Luis A Juares MD Feb 27, 2019 11:20
[2019-02-27 12:00] VITALS: BP 148/85
--- NOTE | 2019-02-27 12:25 | Internal Med Progress Note ---
Subjective Date of Service: Feb 27, 2019 Physician Name Hank Toure Attending Physician Shlomo Garcia MD Current Medications Medications (Trade) Dose Ordered Sig/[place]cca Route PRN Reason Start Time Stop Time Status Last Admin Dose Admin Acetaminophen (Tylenol) 650 mg Q6H PRN ORAL Mild Pain/Temp > 100.5 02/25/19 11:45 03/27/19 11:44 Albuterol/ Ipratropium (Albuterol/ Ipratropium) 3 ml Q4H HHN 02/25/19 23:00 03/02/19 22:59 02/27/19 10:39 Amlodipine Besylate (Norvasc) 5 mg DAILY ORAL 02/25/19 09:00 03/27/19 08:59 02/27/19 09:09 Artificial Tears (Akwa-Tears) 1 drop Q4H PRN BOTH EYES Dry Eyes 02/25/19 11:45 03/27/19 11:44 02/27/19 06:04 Atorvastatin Calcium (Lipitor) 40 mg DAILY ORAL 02/25/19 09:00 03/27/19 08:59 02/27/19 09:10 Baclofen (Lioresal) 10 mg DAILY ORAL 02/25/19 09:00 03/27/19 08:59 02/27/19 09:10 Clonidine HCl (Catapres Tab) 0.1 mg Q6H PRN ORAL SBP > 160 02/25/19 11:45 03/27/19 11:44 02/27/19 05:00 Clopidogrel Bisulfate (Plavix) 75 mg DAILY ORAL 02/25/19 09:00 03/27/19 08:59 02/27/19 09:09 Dextrose (Dextrose 50%) 25 ml Q30M PRN IV Hypoglycemia 02/24/19 22:15 03/26/19 22:14 Dextrose (Dextrose 50%) 50 ml Q30M PRN IV Hypoglycemia 02/24/19 22:15 03/26/19 22:14 Guaifenesin/ Codeine Phosphate (Robitussin with codeine) 10 ml Q6H PRN ORAL For Cough 02/26/19 06:30 03/28/19 06:29 02/26/19 07:50 Heparin Sodium (Porcine) (Heparin 5000 units/ml) 5,000 units EVERY 12 HOURS SUBQ 02/25/19 09:00 03/27/19 08:59 02/27/19 09:11 Lorazepam (Ativan 2mg/ml 1ml) 0.5 mg Q4H PRN IV For Anxiety 02/24/19 22:15 03/03/19 22:14 Methylprednisolone Sodium Succinate (Solu-MEDROL) 60 mg Q6H IV 02/25/19 03:00 03/27/19 02:59 02/27/19 09:10 Montelukast Sodium (Singulair) 10 mg DAILY ORAL 02/25/19 09:00 03/27/19 08:59 02/27/19 09:10 Morphine Sulfate (Morphine Sulfate) 2 mg EVERY 4 HOURS PRN IVP severe pain 702/24/19 22:15 03/03/19 22:14 Nitroglycerin (Ntg) 0.4 mg Q5M X 3 DOSES PRN SL Prn Chest Pain 02/24/19 22:15 03/26/19 22:14 Ondansetron HCl (Zofran) 4 mg Q6H PRN IVP Nausea & Vomiting 02/24/19 22:15 03/26/19 22:14 Phenytoin (Dilantin) 100 mg BID ORAL 02/25/19 09:00 03/27/19 08:59 02/27/19 09:10 Piperacillin Sod/ Tazobactam Sod 3.375 gm/Sodium Chloride 110 ml @ 27.5 mls/hr EVERY 8 HOURS IVPB 02/25/19 15:00 03/02/19 14:59 02/27/19 06:04 Pregabalin (Lyrica) 50 mg DAILY ORAL 02/25/19 09:00 03/27/19 08:59 02/27/19 09:09 Temazepam (Restoril) 15 mg HSPRN PRN ORAL Insomnia 02/24/19 22:15 03/03/19 22:14 Theophylline (Fabrice-Dur) 100 mg EVERY 12 HOURS ORAL 02/25/19 09:00 03/27/19 08:59 02/27/19 09:09 Allergies: Uncoded Allergies: Canned Food (Allergy, Unknown, 03/22/18) Nausea/Vomitting/Indigestion ROS Limited/Unobtainable: No Constitutional: Reports: no symptoms HEENT: Reports: no symptoms Cardiovascular: Reports: no symptoms Respiratory: Reports: shortness of breath Gastrointestinal/Abdominal: Reports: no symptoms Genitourinary: Reports: no symptoms Neurologic/Psychiatric: Reports: no symptoms Subjective 84 YO F admitte with shortness of breath. Now asthma exacerbation with bronchitis. Cover for Int Med-Dr Garcia. "You're the only doctor that comes in the afternoon, all the other doctors come in the morning." Objective Last Vital Signs Date Time Temp Pulse Resp B/P (MAP) Pulse Ox O2 Delivery O2 Flow Rate FiO2 02/27/19 10:46 78 20 99 Room Air 21 02/27/19 09:09 162/75 02/27/19 08:00 97.5 Microbiology Date/Time Source Procedure Growth Status 02/24/19 21:55 Nasal Nares MRSA Culture - Final NO METHICILLIN RESISTANT STAPH AUREUS... Complete Intake and Output 02/26/19 02/27/19 19:00 07:00 Intake Total 590 ml 1070.0 ml Balance 590 ml 1070.0 ml Intake Oral 480 ml 960 ml IV Total 110 ml 110.0 ml # Voids 6 # Bowel Movements 1 Objective PHYSICAL EXAMINATION: GENERAL: The patient is a well-developed and well-nourished female, in no apparent distress. HEENT: Eyes, pupils are equal and responsive to light and accommodation. Extraocular movements are intact. NECK: Supple without lymphadenopathy. CHEST: Diffuse expiratory wheezes in bilateral lung perez. Otherwise, clear to auscultation without rales. CARDIOVASCULAR: Slightly tachycardic, regular rhythm. S1 and S2 are normal without murmurs, rubs, or gallops. ABDOMEN: Soft, nontender, and nondistended. Positive bowel sounds. No evidence of hepatosplenomegaly. Currently, no rebound or guarding noted. EXTREMITIES: Negative for clubbing, cyanosis, or edema. RECTAL/GENITAL: Not performed. NEUROLOGIC: Cranial nerves II through XII are grossly intact without focal deficits. Assessment/Plan Assessment/Plan ASSESSMENT: This is an 84-year-old female. 1. Acute exacerbation of asthma. 2. Purulent bronchitis. 3. Respiratory distress. 4. Shortness of breath. 5. Hypertension. 6. Hypercholesterolemia. 7. Gastroesophageal reflux disease. 8. Seizure disorder. 9. Coronary artery disease. 10. Cerebrovascular disease. TREATMENT: 1. Respiratory distress/asthma exacerbation/purulent bronchitis. A Pulmonary consultation has been obtained with Dr. Luis A Juares. The patient has been started on intravenous Zosyn and Solu-Medrol. We will follow recommendations of Pulmonary. The patient is currently receiving DuoNebs nebulized q.4 hours. 2. Hypertension. Continue amlodipine and losartan/hydrochlorothiazide as above. 3. Hypercholesterolemia. Continue atorvastatin as above. 4. Gastroesophageal reflux disease. The patient has been started on Protonix as needed. 5. Seizure disorder. Continue Dilantin as above. 6. Coronary artery disease. 7. Cerebrovascular disease. Hank Toure MD Feb 27, 2019 12:25
--- NOTE | 2019-02-27 15:22 | NUR ---
NURSE NOTES: Patient complained itching. Spoke to regarding itching and new order received. Order read back and carried out.
[2019-02-27 16:00] VITALS: BP 148/80
--- NOTE | 2019-02-27 19:20 | NUR ---
NURSE NOTES: Received report from AMMY Meehan. Received pt ambulating in the hallway with walker, gait steady, no distress noted. IV L hand patent and intact. Will continue to monitor.
--- NOTE | 2019-02-27 19:30 | NUR ---
HAND-OFF: Report given to Thomas GIMENEZ. Patient in stable condition.
[2019-02-27 20:00] VITALS: BP 153/73
[2019-02-28] MEDS: Albuterol/Ipratropium 3ml neb HHN SCH ×2 (02:29→07:55)
[2019-02-28] MEDS: Solu-MEDROL 125mg Inj IV SCH ×2 (02:53→09:00)
--- NOTE | 2019-02-28 04:00 | NUR ---
NURSE NOTES: Pt showered assisted by NOE Llanes. Safely back in room, no distress noted. Will continue to monitor.
[2019-02-28] MEDS: Zosyn 3.375gm q8h **Extended infusion IVPB SCH ×2 (05:27)
[2019-02-28 05:28] VITALS: BP 153/84
--- NOTE | 2019-02-28 07:19 | NUR ---
HAND-OFF: Report given to AMMY Meehan. Pt in stable condition.
--- NOTE | 2019-02-28 07:30 | NUR ---
NURSE NOTES: Patient lying in bed awake. No complain of pain or distress at this time. Skin intact and dry. IV dressing intact and dry. Bed lowest position. Call light within reach. Will continue to monitor.
[2019-02-28 07:43] LABS: HEMATOCRIT 37.3 % (37.0-47.0); MEAN CORPUSCULAR VOLUME 91 FL (80-99); PLATELET COUNT 236 K/UL (150-450); RED BLOOD COUNT 4.11 M/UL (4.20-5.40); RED CELL DISTRIBUTION WIDTH 13.3 % (11.6-14.8); WHITE BLOOD COUNT 10.8 K/UL (4.8-10.8)
[2019-02-28 07:51] LABS: ANION GAP 10 mmol/L (5-15); BLOOD UREA NITROGEN 30 mg/dL (7-18); CALCIUM 9.2 MG/DL (8.5-10.1); CARBON DIOXIDE 30 MMOL/L (21-32); CHLORIDE 101 MMOL/L (98-107); CREATININE 0.9 MG/DL (0.55-1.30); POTASSIUM 3.9 MMOL/L (3.5-5.1); SODIUM 141 MMOL/L (136-145)
[2019-02-28 08:00] VITALS: BP 154/83
[2019-02-28] MEDS: Lyrica 50mg cap ORAL SCH (09:05)
[2019-02-28] MEDS: Atorvastatin 80mg tab ORAL SCH (09:05)
[2019-02-28] MEDS: Theophylline ER 100mg ORAL SCH (09:05)
[2019-02-28 09:06] VITALS: BP 154/83
[2019-02-28] MEDS: Phenytoin 100mg cap ORAL SCH (09:06)
[2019-02-28] MEDS: Montelukast 10mg tablet ORAL SCH (09:06)
[2019-02-28] MEDS: Heparin 5000 units/ml inj SUBQ SCH (09:24)
[2019-02-28] MEDS ORDERED: NS 500ML ONE (11:04)
--- NOTE | 2019-02-28 11:05 | NUR ---
NURSE NOTES: Patient discharged in stable condition with adult care provider. Discharge instruction given to patient and verbalized understanding. All belonging given to patient. Instructed to follow up with MD and verbalized understanding. IV and ID removed. Patient ambulated out with all personal belongings with steady gait.
--- NOTE | 2019-03-01 08:57 | Discharge Summary ---
Discharge Summary Discharge Summary _ DATE OF ADMISSION: 02/24/2018 DATE OF DISCHARGE: 02/28/2019 ADMITTING MD: Dr. Shlomo Garcia DISCHARGED BY: Dr. Luis A Juares CONSULTANTS: Dr. Luis A Juares BRIEF HOSPITAL COURSE: Patient is an 84-year-old female, who presented to ED with complaints of shortness of breath. Patient has a history of asthma. Patient had multiple exacerbations over the past week. He stated he never quite felt normal. He began to wheeze approximately a week ago. He also had a cough. She denied fever. She had cough productive with greenish phlegm. She has medical history significant for asthma, history of hemorrhagic cerebrovascular accident, hypertension, hypercholesterolemia, GERD, seizure disorder, coronary artery disease status post stent placement in November 2017. On evaluation at the ED, blood pressure was elevated to 174/82, pulse rate 100, RR 26, she was saturating 97% on room air. Blood work did not show any leukocytosis. Hemoglobin and hematocrit were stable. Potassium was low at 3.1. Troponin negative. EKG was in sinus rhythm with no acute changes. Chest x -ray did not show any acute cardiopulmonary disease. She was given nebulizer treatment. She was given a dose of IV Solu-Medrol. She was given potassium supplements. She was then admitted for evaluation of acute exacerbation of asthma, purulent bronchitis. She was admitted to monitored floor. She was given respiratory treatment. She was continued on IV steroids. Blood pressure was monitored. She was continued on amlodipine and losartan/hydrochlorothiazide. She was given a atorvastatin. She was continued on Dilantin for seizure disorder. She was placed on GERD prophylaxis. She was started empirically on Zosyn. MRSA screen was negative. Potassium level improved. She was breathing better with less symptoms. She was eventually discharged home. FINAL DIAGNOSES: Respiratory distress/asthma exacerbation/purulent bronchitis Hypertension Hypercholesterolemia GERD Seizure disorder Coronary artery disease Cerebrovascular disease Allergic asthma DISPOSITION: Patient was discharged home. DISCHARGE MEDICATIONS: Refer to Discharge Medication List. DISCHARGE INSTRUCTIONS: Follow-up in a week. I have been assigned to complete a discharge summary on this account, I was not involved with the patient's management.--KALA Humphrey Jacqueline Robles NP Mar 01, 2019 08:57
--- NOTE | 2019-03-01 16:08 | Cardiology Report ---
APPROVED REPORT EKG Measurement Heart [id number] Sinus tachycardia Otherwise normal ECG
== END 2019-02-28 11:05 | disposition home or self-care (01) | DRG 202 ==
LOC: EDBD 20:44 → EMR 21:10 → 3E 21:16 → EDBEDREQ 21:55
DX: J45.901 Unspecified asthma with (acute) exacerbation (principal); J96.00 Acute respiratory failure, unspecified whether with hypoxia or hypercapnia; E87.6 Hypokalemia; G40.909 Epilepsy, unspecified, not intractable, without status epilepticus; J41.1 Mucopurulent chronic bronchitis; Z86.73 Personal history of transient ischemic attack (TIA), and cerebral infarction without residual deficits; K21.9 Gastro-esophageal reflux disease without esophagitis; I10 Essential (primary) hypertension; I25.10 Atherosclerotic heart disease of native coronary artery without angina pectoris; Z95.5 Presence of coronary angioplasty implant and graft; Z79.02 Long term (current) use of antithrombotics/antiplatelets; E78.00 Pure hypercholesterolemia, unspecified; I67.9 Cerebrovascular disease, unspecified
CPT/HCPCS: 36415; 71045; 80048; 80053; 83880; 84484; 85007; 85025; 87081; 93005; 94640; 94660; 94664; 96374; 99285; J7620; J8499

== ENCOUNTER 2019-11-10 14:13 | Inpatient (IN) | payer MEDICARE, MEDICAID ==
[~2019-11-10] VITALS: Ht 154.9 cm; Wt 71.9 kg
[~2019-11-10 14:13] MED LIST changes: +ANTACID ANTI-G355 ML PO; +ARTIFICIAL TEAR15 ML BOTH EYES; +ASPIRIN-LOW81 MG ORAL; +ATORVASTATIN CA40 MG ORAL; +CREON DR 36,001 EACH PO; +FLUOXETINE HCL20 MG ORAL; +HYDROXYCHLOROQ200 M1 PO; +IBUPROFEN600 MG ORAL; +NORVASC10 MG ORAL; +VALACYCLOVIR500 MG ORAL; +VITAMIN D-32000 UNI2 PO; +VITAMIN D35000 UNIT PO
--- NOTE | 2019-11-10 14:18 | Emergency Room Report ---
History of Present Illness General Chief Complaint: Shortness of breath Source: Patient, EMS Present Illness HPI Disclaimer: Please note that this report is being documented using [employer] technology. This can lead to erroneous entry secondary to incorrect interpretation by the dictating instrument. HPI: 84-year-old female with a history of severe asthma, CAD, CVA, hypertension , GERD, hyperlipidemia and seizure disorder presents for evaluation of shortness of breath. Symptoms started approximately 7 days ago but have been getting worse over the past 1 to 2 days. She called EMS for worsening wheezing and tightness in her chest is difficulty catching her breath. No help from breathing treatments at home. EMS found her saturating 92% on room air tripod position. She improved after receiving duo nebs en route. Oxygenation improved on route to 98%. Reports intermittent cough. Denies fever. Primarily she is Occitan speaking but does have some Urdu. Denying any chest pain currently. She has been admitted for asthma exacerbation in the past. PMH: Hypertension, hyperlipidemia, CAD, CVA, seizure disorder PSH: Reviewed Allergies: Reviewed Social Hx: Reviewed Allergies: Uncoded Allergies: Canned Food (Allergy, Unknown, 03/22/18) Nausea/Vomitting/Indigestion Nursing Documentation-PMH Hx Cardiac Problems: Yes Hx Hypertension: Yes Hx Asthma: Yes Hx COPD: Yes Hx Cancer: No Hx Gastrointestinal Problems: Yes Hx Neurological Problems: Yes Hx Cerebrovascular Accident: Yes Hx Transient Ischemic Attacks: Yes Hx Seizures: Yes Hx Epilepsy: Yes Review of Systems All Other Systems: negative except mentioned in HPI Physical Exam General: Awake and alert, no acute distress HEENT: NC/AT. EOMI. Neck: Supple, trachea midline. No JVD Chest Wall: No tenderness, no deformity Cardiovascular: RRR. S1 and S2 normal. No murmur appreciated Resp: Increased work of breathing. Persistent cough throughout the exam. Difficult to appreciate crackles due to persistent coughing. Expiratory wheezes bilaterally. Abdomen: Abdomen is soft, nondistended. Nontender Skin: Intact. No abrasions, laceration or rash over the exposed skin MSK: Normal tone and bulk. Moving all extremities. No obvious deformity. No lower extremity edema Neuro: Awake and alert. Mentating appropriately. Medical Decision Making Diagnostic Impression: Primary Impression: Acute asthma exacerbation ER Course 84-year-old female history of severe asthma presents for evaluation of 2 days worsening shortness of breath and cough. Differential includes was not limited to asthma exacerbation, pneumonia, bronchitis, viral syndrome, COPD, pulmonary edema, ACS, angina, GERD to name a few. Patient appears to improving after DuoNeb's originally reported as 92% on room air and in respiratory extremis by EMS. She appears to be doing better though has persistent cough. We will continue duo nebs, obtain chest x-ray, labs including ABG. Patient will require admission. Laboratory Tests Test 11/10/19 13:30 11/10/19 14:14 White Blood Count 9.5 K/UL (4.8-10.8) Red Blood Count 4.50 M/UL (4.20-5.40) Hemoglobin 13.9 G/DL (12.0-16.0) Hematocrit 39.9 % (37.0-47.0) Mean Corpuscular Volume 89 FL (80-99) Mean Corpuscular Hemoglobin 30.9 PG (27.0-31.0) Mean Corpuscular Hemoglobin Concent 34.9 G/DL (32.0-36.0) Red Cell Distribution Width 12.6 % (11.6-14.8) Platelet Count 217 K/UL (150-450) Mean Platelet Volume 6.7 FL (6.5-10.1) Neutrophils (%) (Auto) 60.8 % (45.0-75.0) Lymphocytes (%) (Auto) 21.4 % (20.0-45.0) Monocytes (%) (Auto) 7.3 % (1.0-10.0) Eosinophils (%) (Auto) 10.0 % (0.0-3.0) H Basophils (%) (Auto) 0.6 % (0.0-2.0) Sodium Level 143 MMOL/L (136-145) Potassium Level 3.4 MMOL/L (3.5-5.1) L Chloride Level 105 MMOL/L (98-107) Carbon Dioxide Level 26 MMOL/L (21-32) Anion Gap 12 mmol/L (5-15) Blood Urea Nitrogen 12 mg/dL (7-18) Creatinine 0.7 MG/DL (0.55-1.30) Estimate Glomerular Filtration Rate > 60 mL/min (>60) Glucose Level 124 MG/DL (74-106) H Calcium Level 9.0 MG/DL (8.5-10.1) Total Bilirubin 0.1 MG/DL (0.2-1.0) L Aspartate Amino Transferase (AST) 12 U/L (15-37) L Alanine Aminotransferase (ALT) 22 U/L (12-78) Alkaline Phosphatase 117 U/L (46-116) H Troponin I 0.000 ng/mL (0.000-0.056) Pro-B-Type Natriuretic Peptide 38 pg/mL (0-125) Total Protein 7.7 G/DL (6.4-8.2) Albumin 3.5 G/DL (3.4-5.0) Globulin 4.2 g/dL Albumin/Globulin Ratio 0.8 (1.0-2.7) L Arterial Blood pH 7.360 (7.350-7.450) Arterial Blood Partial Pressure CO2 55.3 mmHg (35.0-45.0) *H Arterial Blood Partial Pressure O2 83.8 mmHg (75.0-100.0) Arterial Blood HCO3 30.5 mmol/L (22.0-26.0) H Arterial Blood Oxygen Saturation 96.1 % (95-100) Arterial Blood Base Excess 3.8 (-2-2) H Mk Test Positive EKG Diagnostic Results EKG Time: 13:58 Rate: normal Rhythm: NSR ST Segments: no acute changes Other Impression Difficult to interpret due to irregular baseline but appears to be sinus rhythm with normal axis Rhythm Strip Diag. Results Rhythm Strip Time: 13:58 EP Interpretation: yes Rate: 90s Rhythm: NSR Chest X-Ray Diagnostic Results Chest X-Ray Diagnostic Results : Chest X-Ray Ordered: Yes # of Views/Limited/Complete: 1 View Indication: Shortness of Breath EP Interpretation: Yes Interpretation: other - No obvious effusion. Difficult to visualize the left lower lobe Impression: Other - Mild pulmonary congestion. Possible consolidation left lower lobe Electronically Signed by: Electronically signed by Dr. Saúl Moise Reevaluation Time: 17:00 Reevaluation Impression Difficult to fully visualize the left costophrenic angle. May be consolidation/ pneumonia and patient was treated with antibiotics. She is significantly improved after receiving 3 breathing treatments. Labs largely within normal limits though slight CO2 retention she has clinically much improved from her initial presentation. She will require admission for an asthma exacerbation. Disposition: ADMITTED INPATIENT Condition: Serious Saúl Moise MD 8, 2020 14:18
[2019-11-10] MEDS: Ipratropium 0.02% Inh Soln 2.5ml UD HHN SCH ×2 (14:30→14:31)
[2019-11-10] MEDS: Albuterol ud Inhalation HHN SCH ×2 (14:30→14:31)
[2019-11-10] MEDS ORDERED: Solu-MEDROL 125mg Inj IVP ONE (14:30)
[2019-11-10 14:40] VITALS: BP 145/86
--- NOTE | 2019-11-10 14:40 | NUR ---
ED Nurse Note: pt brought in by ambulance from home due to asthma attack x1 week, worsening today. pt aaox4, cooperative and calm. skin clean and intact. pt has bilateral lungs wheezing. pt able to ambulate with walker. pt placed on cardiac monitoring. ERMD speaking to pt by bedside. pt receiving breathing treatment per RT.
--- NOTE | 2019-11-10 14:44 | NUR ---
ED Nurse Note: x-ray at bedside.
[2019-11-10 15:02] LABS: BASOPHILS % (AUTO) 0.6 % (0.0-2.0); HEMATOCRIT 39.9 % (37.0-47.0); HEMOGLOBIN 13.9 G/DL (12.0-16.0); LYMPHOCYTES % (AUTO) 21.4 % (20.0-45.0); MEAN CORPUSCULAR VOLUME 89 FL (80-99); MONOCYTES % (AUTO) 7.3 % (1.0-10.0); NEUTROPHILS % (AUTO) 60.8 % (45.0-75.0); PLATELET COUNT 217 K/UL (150-450); RED CELL DISTRIBUTION WIDTH 12.6 % (11.6-14.8); WHITE BLOOD COUNT 9.5 K/UL (4.8-10.8)
[2019-11-10 15:11] LABS: ANION GAP 12 mmol/L (5-15); BLOOD UREA NITROGEN 12 mg/dL (7-18); CARBON DIOXIDE 26 MMOL/L (21-32); CHLORIDE 105 MMOL/L (98-107); CREATININE 0.7 MG/DL (0.55-1.30); POTASSIUM 3.4 MMOL/L (3.5-5.1); SODIUM 143 MMOL/L (136-145)
[2019-11-10] MEDS ORDERED: Azithromycin 500 MG in NS 275 ML IV ONE (15:15)
[2019-11-10] MEDS ORDERED: cefTRIAXone 1 GM in NS 55 ML IVPB ONE (15:15)
[2019-11-10 15:19] LABS: ALANINE AMINOTRANSFERASE 22 U/L (12-78); ALBUMIN 3.5 G/DL (3.4-5.0); ALBUMIN/GLOBULIN RATIO 0.8 (1.0-2.7); ALKALINE PHOSPHATASE 117 U/L (46-116); ASPARTATE AMINO TRANSFERASE 12 U/L (15-37); BILIRUBIN,TOTAL 0.1 MG/DL (0.2-1.0)
[2019-11-10] MEDS ORDERED: Nitroglycerin Subl 0.4mg tab SL PRN (16:00)
[2019-11-10] MEDS: Solu-MEDROL 125mg Inj IV SCH (18:03)
--- NOTE | 2019-11-10 18:54 | NUR ---
ED Nurse Note: Report given to AMMY Moise.
--- NOTE | 2019-11-10 19:17 | NUR ---
HAND-OFF: Report given to Bere. no orders to carry at this time.
--- NOTE | 2019-11-10 19:20 | NUR ---
ED Nurse Note: RECEIVED REPORT FROM TOI TERAN RN. PT VSS, NAD. WILL CONTINUE TO MONITOR PATIENT
[2019-11-10 19:36] VITALS: BP 143/81
--- NOTE | 2019-11-10 19:50 | NUR ---
TRANSFER TO FLOOR: Patient transferred to 202-2 via gurney accompanied by 1rn 1tech in stable condition as ordered, per dr. Garcia . Report given to Catrina GIMENEZ. Belongings sentwith patient.
[2019-11-10 21:00] VITALS: BP 165/98
[2019-11-10] MEDS: LORazepam Inj 2mg/ml 1ml IV PRN (21:00)
--- NOTE | 2019-11-10 21:00 | NUR ---
NURSE NOTES: Patient received from AMMY Mckinney in ED. Belongings checked at bedside, pt wants to keep them and declines to put valuables in safe. Pt is alert and oriented x4, speaks Tajik and some Setswana. Pt is on 2 L NC and has both inspiratory and expiratory wheezing. Pt is in bed, locked in lowest position side rails x2., bed alarm on, Pt has been oriented to room and unit, call light within reach, will continue to monitor
[2019-11-10] MEDS: Promethazine/Codeine 5ml UD ORAL PRN (21:01)
[2019-11-10] MEDS: Phenytoin 100mg cap ORAL SCH (21:02)
[2019-11-10] MEDS: Atorvastatin 20mg tab ORAL SCH (21:03)
[2019-11-10] MEDS: Theophylline ER 100mg ORAL SCH (21:03)
[2019-11-10] MEDS: Heparin 5000 units/ml inj SUBQ SCH (21:08)
[2019-11-10] MEDS: Albuterol/Ipratropium 3ml neb HHN PRN (21:15)
[2019-11-10] MEDS ORDERED: Piperacillin/Tazobactam 2.25 GM in D5W 55 ML IV SCH (22:00)
[2019-11-10] MEDS: Zoysn 3.37gm in NS 100ML IVPB SCH (22:00)
[2019-11-11] VITALS: BP 154/85
[2019-11-11] MEDS: Solu-MEDROL 125mg Inj IV SCH ×4 (00:54→17:36)
[2019-11-11] MEDS: Albuterol/Ipratropium 3ml neb HHN PRN ×3 (01:29→20:09)
[2019-11-11 04:00] VITALS: BP 152/88
[2019-11-11] MEDS: Promethazine/Codeine 5ml UD ORAL PRN ×2 (04:37→11:21)
[2019-11-11] MEDS: Zoysn 3.37gm in NS 100ML IVPB SCH ×3 (06:17→21:40)
[2019-11-11 08:00] VITALS: BP 155/89
--- NOTE | 2019-11-11 08:10 | NUR ---
NURSE NOTES: Received report from AMMY Lopez. Patient in chair resting, no active s/s cardiac, respiratory distress noticed at this time. Patient AOx4, SR with HR 92. Denies pain at this time. IV on left FA 22G, asymptomatic, patent, intact. Bed in lowest position, side rails upx2, call light within reach. Will continue to monitor.
--- NOTE | 2019-11-11 08:10 | NUR ---
HAND-OFF: Report given to AMMY Grider.
[2019-11-11] MEDS: Phenytoin 100mg cap ORAL SCH ×2 (08:32→20:55)
[2019-11-11] MEDS: Aspirin EC 81mg tab ORAL SCH (08:32)
[2019-11-11] MEDS: Theophylline ER 100mg ORAL SCH ×2 (08:33→20:55)
[2019-11-11] MEDS: Lyrica 50mg cap ORAL SCH (08:33)
[2019-11-11] MEDS: Montelukast 10mg tablet ORAL SCH (08:33)
[2019-11-11] MEDS: Heparin 5000 units/ml inj SUBQ SCH ×2 (08:34→20:55)
--- NOTE | 2019-11-11 11:35 | Consultation ---
History of Present Illness General Date patient seen: Nov 11, 2019 Chief Complaint: Asthma Present Illness HPI 84 year old with severe asthma, CVA, seizures, presented to ER with CC of shortness of breath. She says, her nebulizer stopped helping her. EMS noted audible wheezing. they treated her with albuterol. She is doing slightly better with treatment. She denies chest pain but states that she still is short of breath. She is admitted to telemetry for further management. Allergies: Uncoded Allergies: Canned Food (Allergy, Unknown, 03/22/18) Nausea/Vomitting/Indigestion Medication History Scheduled Amlodipine Besylate (Norvasc), 10 MG ORAL DAILY Amlodipine Besylate* (Amlodipine Besylate*), 5 MG ORAL DAILY, (Reported) Aspirin (Aspirin EC), 81 MG ORAL DAILY, (Reported) Atorvastatin Calcium* (Atorvastatin Calcium*), 40 MG ORAL BEDTIME, (Reported) Cholecalciferol (Vitamin D3) (Vitamin D-3), 2,000 UNIT PO DAILY, (Reported) Clopidogrel* (Clopidogrel*), 75 MG ORAL DAILY, (Reported) Dexlansoprazole (Dexilant), 60 MG ORAL DAILY, (Reported) Dextran 70/Hypromellose (Artificial Tears Eye Drops*), 1 DROP BOTH EYES PRN, ( Reported) Fluoxetine Hcl* (Fluoxetine Hcl*), 20 MG ORAL DAILY, (Reported) Levocetirizine Dihydrochloride (Levocetirizine Dihydrochloride), 5 MG ORAL DAILY , (Reported) Losartan/Hydrochlorothiazide (Losartan-Hctz 100-12.5 Mg Tab), 1 TAB ORAL DAILY, (Reported) Methylprednisolone (Methylprednisolone*), 4 MG ORAL DIRECTED Montelukast Sodium* (Montelukast Sodium*), 10 MG ORAL DAILY, (Reported) Phenytoin Sodium Extended* (Phenytoin Sodium Extended*), 100 MG ORAL BID, ( Reported) Pregabalin (Lyrica), 50 MG ORAL DAILY, (Reported) Valacyclovir Hcl* (Valtrex*), 1,000 MG ORAL TID, (Reported) Scheduled PRN Albuterol Sulfate (Ventolin Hfa), 2 PUFFS INH EVERY 6 HOURS PRN for Shortness of Breath, (Reported) Ibuprofen* (Motrin*), 600 MG ORAL Q6H PRN for For Pain, (Reported) Patient History Healthcare decision maker N Resuscitation status Full Code Advanced Directive on File Past Medical/Surgical History Past Medical/Surgical History: (1) HTN (hypertension) (2) CAD (coronary artery disease) (3) Seizure disorder (4) Hemorrhagic stroke (5) Chronic back pain Review of Systems All Other Systems: negative except mentioned in HPI Physical Exam General Appearance: WD/WN HEENT: normocephalic, atraumatic Neck: non-tender Respiratory/Chest: expiratory wheezing, inspiratory wheezing Cardiovascular/Chest: normal peripheral pulses, normal rate Abdomen: normal bowel sounds, non tender Genitourinary/Rectal: normal genital exam Skin Exam: normal pigmentation Neurologic: backer up II-XII grossly normal Last 24 Hour Vital Signs Date Time Temp Pulse Resp B/P (MAP) Pulse Ox O2 Delivery O2 Flow Rate FiO2 11/11/19 09:00 Room Air 11/11/19 08:32 95 155/89 11/11/19 08:00 99 11/11/19 08:00 97.7 95 18 155/89 (111) 92 11/11/19 05:07 Nasal Cannula 2.0 11/11/19 04:00 92 11/11/19 04:00 2.0 11/11/19 04:00 97.6 87 22 152/88 (109) 95 11/11/19 01:40 103 20 98 Nasal Cannula 2.0 28 11/11/19 01:29 104 22 95 Nasal Cannula 2.0 28 11/11/19 00:00 96 11/11/19 00:00 2.0 11/11/19 00:00 97.6 90 21 154/85 (108) 95 11/10/19 21:25 100 20 99 Nasal Cannula 2.0 28 11/10/19 21:15 105 22 96 Nasal Cannula 2.0 28 11/10/19 21:15 96 Nasal Cannula 2.0 28 11/10/19 21:14 105 22 96 Nasal Cannula 2.0 28 11/10/19 21:00 96 11/10/19 21:00 2.0 11/10/19 21:00 97.4 86 24 165/98 (120) 95 11/10/19 19:50 98.4 90 20 143/81 98 Room Air 94 92 11/10/19 19:36 98.4 92 20 143/81 98 Room Air 94 11/10/19 15:12 97 20 98 3/8/20 14:40 98.0 90 18 145/86 94 Room Air 11/10/19 14:40 87 18 Room Air 94 11/10/19 14:31 101 14 93 Room Air 21 11/10/19 14:19 98.1 87 18 177/101 (126) 97 Room Air Intake and Output 11/10/19 11/11/19 19:00 07:00 Intake Total 330 ml Balance 330 ml IV Total 330 ml # Voids 1 Laboratory Tests Test 11/10/19 13:30 11/10/19 14:14 White Blood Count 9.5 K/UL (4.8-10.8) Red Blood Count 4.50 M/UL (4.20-5.40) Hemoglobin 13.9 G/DL (12.0-16.0) Hematocrit 39.9 % (37.0-47.0) Mean Corpuscular Volume 89 FL (80-99) Mean Corpuscular Hemoglobin 30.9 PG (27.0-31.0) Mean Corpuscular Hemoglobin Concent 34.9 G/DL (32.0-36.0) Red Cell Distribution Width 12.6 % (11.6-14.8) Platelet Count 217 K/UL (150-450) Mean Platelet Volume 6.7 FL (6.5-10.1) Neutrophils (%) (Auto) 60.8 % (45.0-75.0) Lymphocytes (%) (Auto) 21.4 % (20.0-45.0) Monocytes (%) (Auto) 7.3 % (1.0-10.0) Eosinophils (%) (Auto) 10.0 % (0.0-3.0) H Basophils (%) (Auto) 0.6 % (0.0-2.0) Sodium Level 143 MMOL/L (136-145) Potassium Level 3.4 MMOL/L (3.5-5.1) L Chloride Level 105 MMOL/L (98-107) Carbon Dioxide Level 26 MMOL/L (21-32) Anion Gap 12 mmol/L (5-15) Blood Urea Nitrogen 12 mg/dL (7-18) Creatinine 0.7 MG/DL (0.55-1.30) Estimat Glomerular Filtration Rate > 60 mL/min (>60) Glucose Level 124 MG/DL (74-106) H Calcium Level 9.0 MG/DL (8.5-10.1) Total Bilirubin 0.1 MG/DL (0.2-1.0) L Aspartate Amino Transf (AST/SGOT) 12 U/L (15-37) L Alanine Aminotransferase (ALT/SGPT) 22 U/L (12-78) Alkaline Phosphatase 117 U/L (46-116) H Troponin I 0.000 ng/mL (0.000-0.056) Pro-B-Type Natriuretic Peptide 38 pg/mL (0-125) Total Protein 7.7 G/DL (6.4-8.2) Albumin 3.5 G/DL (3.4-5.0) Globulin 4.2 g/dL Albumin/Globulin Ratio 0.8 (1.0-2.7) L Arterial Blood pH 7.360 (7.350-7.450) Arterial Blood Partial Pressure CO2 55.3 mmHg (35.0-45.0) *H Arterial Blood Partial Pressure O2 83.8 mmHg (75.0-100.0) Arterial Blood HCO3 30.5 mmol/L (22.0-26.0) H Arterial Blood Oxygen Saturation 96.1 % (95-100) Arterial Blood Base Excess 3.8 (-2-2) H Mk Test Positive Microbiology Date/Time Source Procedure Growth Status 11/10/19 15:15 Sputum Gram Stain - Final Resulted 11/10/19 15:15 Sputum Sputum Culture Pending Resulted 11/10/19 15:45 Rectum Received Height (Feet): 5 Height (Inches): 1.00 Weight (Pounds): 160 Medications Current Medications Medications (Trade) Dose Ordered Sig/[place] Route PRN Reason Start Time Stop Time Status Last Admin Dose Admin Albuterol/ Ipratropium (Albuterol/ Ipratropium) 3 ml Q4H PRN HHN dyspnea 11/10/19 16:00 11/15/19 15:59 11/11/19 01:29 Amlodipine Besylate (Norvasc) 10 mg DAILY ORAL 11/11/19 09:00 12/11/19 08:59 11/11/19 08:32 Aspirin (Ecotrin) 81 mg DAILY ORAL 11/11/19 09:00 12/11/19 08:59 11/11/19 08:32 Atorvastatin Calcium (Lipitor) 40 mg BEDTIME ORAL 11/10/19 21:00 12/10/19 20:59 11/10/19 21:03 Clopidogrel Bisulfate (Plavix) 75 mg DAILY ORAL 11/11/19 09:00 12/11/19 08:59 11/11/19 08:32 Dextrose (Dextrose 50%) 25 ml Q30M PRN IV Hypoglycemia 11/10/19 16:00 12/10/19 15:59 Dextrose (Dextrose 50%) 50 ml Q30M PRN IV Hypoglycemia 11/10/19 16:00 12/10/19 15:59 Fluoxetine HCl (PROzac) 20 mg DAILY ORAL 11/11/19 09:00 12/11/19 08:59 11/11/19 08:32 Heparin Sodium (Porcine) (Heparin 5000 units/ml) 5,000 units EVERY 12 HOURS SUBQ 11/10/19 21:00 12/10/19 20:59 11/11/19 08:34 Lorazepam (Ativan 2mg/ml 1ml) 0.5 mg Q4H PRN IV For Anxiety 11/10/19 16:00 11/17/19 15:59 11/10/19 21:00 Methylprednisolone Sodium Succinate (Solu-MEDROL) 60 mg EVERY 6 HOURS IV 11/10/19 18:00 12/10/19 17:59 11/11/19 11:20 Montelukast Sodium (Singulair) 10 mg DAILY ORAL 11/11/19 09:00 12/11/19 08:59 11/11/19 08:33 Nitroglycerin (Ntg) 0.4 mg Q5M X 3 DOSES PRN SL Prn Chest Pain 11/10/19 16:00 12/10/19 15:59 Ondansetron HCl (Zofran) 4 mg Q6H PRN IVP Nausea & Vomiting 11/10/19 16:00 12/10/19 15:59 Phenytoin (Dilantin) 100 mg Q12HR ORAL 11/10/19 21:00 12/10/19 20:59 11/11/19 08:32 Piperacillin Sod/ Tazobactam Sod 3.375 gm/Sodium Chloride 110 ml @ 27.5 mls/hr EVERY 8 HOURS IVPB 11/10/19 22:00 3/13/20 21:59 11/11/19 06:17 Pregabalin (Lyrica) 50 mg DAILY ORAL 11/11/19 09:00 12/11/19 08:59 11/11/19 08:33 Promethazine HCl/ Codeine (Phenergan with Codeine) 5 ml Q6H PRN ORAL cough 11/10/19 16:00 12/10/19 15:59 11/11/19 11:21 Temazepam (Restoril) 15 mg HSPRN PRN ORAL Insomnia 11/10/19 16:00 11/17/19 15:59 Theophylline (Fabrice-Dur) 100 mg EVERY 12 HOURS ORAL 11/10/19 21:00 12/10/19 20:59 11/11/19 08:33 Assessment/Plan Problem List: (1) Acute respiratory failure ICD Codes: J96.00 - Acute respiratory failure, unspecified whether with hypoxia or hypercapnia SNOMED: 06652920 (2) Acute asthma exacerbation ICD Codes: J45.901 - Unspecified asthma with (acute) exacerbation SNOMED: 646032406 (3) Allergic asthma ICD Codes: J45.909 - Unspecified asthma, uncomplicated SNOMED: 579623238, 945506273 (4) Seizure disorder ICD Codes: G40.909 - Epilepsy, unspecified, not intractable, without status epilepticus SNOMED: 373081882 (5) CAD (coronary artery disease) ICD Codes: I25.10 - Atherosclerotic heart disease of [place] coronary artery without angina pectoris SNOMED: 89969183 (6) Chronic back pain ICD Codes: M54.9 - Dorsalgia, unspecified; G89.29 - Other chronic pain SNOMED: 316448057 Assessment/Plan: respiratory treatment check sputum iv steroids iv abx resume seizure meds titrate fio2 to sat of 92% dvt prophylaxis Pt states she is ready to go to her [facility]. I told her, the Lord will take her when He decides to do so. Luis A Juares MD Nov 11, 2019 11:35
[2019-11-11 12:00] VITALS: BP 150/79
--- NOTE | 2019-11-11 13:03 | Diagnostic Imaging Report ---
Indication: Dyspnea Comparison: 09/19/2019 A single view chest radiograph was obtained. Findings: Mild pulmonary vascular congestion may be present as there is prominence of the interstitium and vascularity. The heart is enlarged. Aorta is ectatic and calcified. IMPRESSION: Possible mild pulmonary vascular congestion. Correlate clinically
[2019-11-11] MEDS ORDERED: CREON DR 36,001 EACH PO (14:28)
[2019-11-11] MEDS ORDERED: TRADJENTA5 MG PO (14:28)
[2019-11-11] MEDS ORDERED: FUROSEMIDE40 MG ORAL (14:28)
[2019-11-11] MEDS ORDERED: ISOSORBIDE MONO30 M1 PO (14:28)
[2019-11-11] MEDS ORDERED: AMLODIPINE BES2.5 MG ORAL (14:28)
[2019-11-11] MEDS ORDERED: LOSARTAN POTAS100 MG ORAL (14:28)
[2019-11-11] MEDS ORDERED: ALBUTEROL2.5 MG/3 M INH (14:28)
[2019-11-11] MEDS ORDERED: FLUTICASONE PRO16 G1 NASAL (14:36)
[2019-11-11] MEDS ORDERED: DOCUSATE SODIU100 MG ORAL (14:42)
--- NOTE | 2019-11-11 15:05 | NUR ---
CASE MANAGEMENT:REVIEW 84 YR OLD FEMALE BIBA FROM HOME CC: SOB SI: ASTHMA EXACERBATION 98.1 87 18 177/101 97% ON RA PCO2+55.3 IS: DUONEB HHN Q15 IV SOLUMEDROL IV AZITHROMYCIN IV ROCEPHIN K-DUR CHEST XRAY : TO TELEMETRY DCP: FROM HOME
[2019-11-11 16:00] VITALS: BP 145/78
--- NOTE | 2019-11-11 19:07 | History & Physical ---
History and Physical History & Physicial Dictated for Int Med-DR Garcia no. [id number]. Hakn Toure MD Nov 11, 2019 19:07
--- NOTE | 2019-11-11 19:34 | NUR ---
HAND-OFF: Report given to AMMY Lopez. Endorsed plan of care.
[2019-11-11 20:00] VITALS: BP 168/90
--- NOTE | 2019-11-11 20:12 | NUR ---
NURSE NOTES: Patient received from AMMY Grider. Pt is alert and oriented x4, speaks Occitan and some [place] Islander. Pt is on 2 L NC and has both inspiratory and expiratory wheezing. Pt is complaining of not being able to breathe. I called respiratory therapy to come see the patient. Pt is in bed, sitting, bed is locked in lowest position side rails x2, bed alarm on, call light within reach, belongings at bedside , will continue to monitor
[2019-11-11] MEDS: Atorvastatin 20mg tab ORAL SCH (20:54)
--- NOTE | 2019-11-11 23:15 | History and Physical Report ---
DATE OF ADMISSION: 11/10/2019 CHIEF COMPLAINT: The patient is an 84-year-old female, who presents with a chief complaint of shortness of breath. HISTORY OF PRESENT ILLNESS: The patient was admitted to [facility] in September of 2019 with asthma exacerbation. Please see history and physical and discharge summary dictated at that time. The patient states history of present illness began three days prior to admission. The patient began to experience shortness of breath. The patient states history of present illness began approximately one week ago. The patient began to experience shortness of breath. This has been getting worse over the last 1 or 2 days. The patient complains of wheezing. The patient called EMS. The patient was found to have oxygen saturation of 92% on room air. The patient was transported to [facility]. The patient was admitted for shortness of breath and acute asthma exacerbation. REVIEW OF SYSTEMS: CONSTITUTIONAL: The patient denies weight loss or weight gain. The patient denies fevers or chills. HEENT: The patient denies ear or throat pain. The patient denies headache. CARDIOVASCULAR: The patient denies palpitations or chest pain. CHEST: The patient complains of shortness of breath as above. The patient complains of wheezes as above. The patient denies cough. ABDOMEN: The patient denies nausea, vomiting, diarrhea, or constipation. GENITOURINARY: The patient denies dysuria or increased frequency of urination. NEUROMUSCULAR: The patient denies seizures or generalized weakness. PAST MEDICAL HISTORY: Significant for, 1. Asthma. 2. History of hemorrhagic cerebrovascular accident. 3. Hypertension. 4. Hypercholesterolemia. 5. Gastroesophageal reflux disease. 6. Seizure disorder. 7. Coronary artery disease, status post stent placement in November of 2017. PAST SURGICAL HISTORY: Significant for, 1. Appendectomy. 2. Cardiac catheterization in November of 2017 with stent placement. CURRENT MEDICATIONS: 1. Albuterol metered-dose inhaler two puffs p.o. 4 times a day p.r.n. 2. Albuterol 2.5 mg nebulized q.6 hours p.r.n. 3. Amlodipine 2.5 mg p.o. daily. 4. Aspirin 81 mg p.o. daily. 5. Atorvastatin 40 mg p.o. at bedtime. 6. Clopidogrel 75 mg one tab p.o. daily. 7. Dexilant 60 mg p.o. daily. 8. Furosemide 40 mg p.o. daily. 9. Isosorbide mononitrate 30 mg p.o. daily. 10. Cetirizine 5 mg p.o. daily. 11. Tradjenta 5 mg p.o. daily. 12. Losartan 100 mg p.o. daily. 13. Dilantin 100 mg p.o. 3 times daily. 14. Lyrica 50 mg p.o. daily. ALLERGIES: No known drug allergies. SOCIAL HISTORY: The patient is single. Lives alone. The patient denies tobacco use. The patient denies alcohol use. PHYSICAL EXAMINATION: VITAL SIGNS: Temperature 98.1, respirations 18, pulse 87, blood pressure 177/101, and pulse ox 93% on room air. GENERAL: The patient is a well-developed and well-nourished female, who is in moderate respiratory distress. HEENT: Eyes, pupils are equal and responsive to light and accommodation. Extraocular movements are intact. NECK: Supple without lymphadenopathy. CHEST: Decreased breath sounds at bilateral bases with expiratory wheezes. Otherwise, without rales. CARDIOVASCULAR: Regular rhythm and rate. S1, S2 are normal without murmurs, rubs, or gallops. ABDOMEN: Soft, nontender, and nondistended. Positive bowel sounds. No evidence of hepatosplenomegaly. Currently, no rebound or guarding noted. EXTREMITIES: Negative for clubbing, cyanosis, or edema. RECTAL/GENITAL: Not performed. NEUROLOGICAL: Cranial nerves II through XII are grossly intact without focal deficits. Motor strength is 5/5 bilaterally. Deep tendon reflexes are 2+ plantar. IMAGING: A chest x-ray revealed mild pulmonary vascular congestion. Otherwise, without acute consolidation. LABORATORY STUDIES: WBC 9.5, hemoglobin 13.9, hematocrit 39.9, and platelets 217,000. Sodium 143, potassium 3.4, chloride 105, CO2 26, BUN 12, creatinine 0.7, and glucose 124. Troponin 0.0. ASSESSMENT: This is an 84-year-old female. 1. Shortness of breath. 2. Hypoxia. 3. Acute asthma exacerbation. 4. Purulent bronchitis. 5. Cerebrovascular disease. 6. Hypertension. 7. Hypercholesterolemia. 8. Gastroesophageal reflux disease. 9. Seizure disorder. 10. Coronary artery disease. TREATMENT: 1. Shortness of breath/acute asthma exacerbation. Pulmonary consultation has been obtained with Dr. Luis A Juares. The patient is currently receiving intravenous Solu-Medrol. The patient is currently receiving DuoNeb every 6 hours. 2. Purulent bronchitis. The patient has been started empirically on intravenous Zosyn. As above, a Pulmonary consultation has been obtained with Dr. Luis A Juares. 3. Cerebrovascular disease, status post hemorrhagic stroke. 4. Hypertension. Continue Norvasc as above. 5. Hypercholesterolemia. Continue atorvastatin as above. 6. Gastroesophageal reflux disease. Continue Protonix as above. 7. Seizure disorder. Continue Dilantin as above. 8. Coronary artery disease. Continue Plavix and aspirin as above. Hank Toure M.D. DR: YAO JOB#: [id number] CC:
[2019-11-12] VITALS: BP 159/87
[2019-11-12] MEDS: Solu-MEDROL 125mg Inj IV SCH ×4 (00:20→18:05)
[2019-11-12] MEDS: Albuterol/Ipratropium 3ml neb HHN PRN ×4 (01:11→21:21)
[2019-11-12] MEDS: Promethazine/Codeine 5ml UD ORAL PRN ×3 (01:41→21:29)
[2019-11-12] MEDS: LORazepam Inj 2mg/ml 1ml IV PRN (03:52)
[2019-11-12 04:00] VITALS: BP 154/85
[2019-11-12] MEDS: Zoysn 3.37gm in NS 100ML IVPB SCH ×3 (05:46→21:19)
--- NOTE | 2019-11-12 06:54 | NUR ---
HAND-OFF: Report given to AMMY Adams.
--- NOTE | 2019-11-12 07:15 | NUR ---
NURSE NOTES: Nurse report given by AMMY Lopez. Patient's sleeping in bed, supine position, breathing regular and unlabored, no s/s of distress or SOB. Bed low and locked, call light within reach, side rails x 2 and padded for seizure precaution, bed alarm is armed. IV is saline locked, patent and asymptomatic. Will continue to monitor.
[2019-11-12 07:21] LABS: HEMATOCRIT 36.8 % (37.0-47.0); HEMOGLOBIN 12.8 G/DL (12.0-16.0); MEAN CORPUSCULAR VOLUME 89 FL (80-99); PLATELET COUNT 206 K/UL (150-450); RED BLOOD COUNT 4.12 M/UL (4.20-5.40); RED CELL DISTRIBUTION WIDTH 12.7 % (11.6-14.8); WHITE BLOOD COUNT 17.3 K/UL (4.8-10.8)
[2019-11-12 07:59] LABS: ALANINE AMINOTRANSFERASE 21 U/L (12-78); ALBUMIN 3.2 G/DL (3.4-5.0); ALBUMIN/GLOBULIN RATIO 0.8 (1.0-2.7); ALKALINE PHOSPHATASE 83 U/L (46-116); ANION GAP 8 mmol/L (5-15); ASPARTATE AMINO TRANSFERASE 13 U/L (15-37); BILIRUBIN,TOTAL 0.1 MG/DL (0.2-1.0); BLOOD UREA NITROGEN 22 mg/dL (7-18); CALCIUM 8.6 MG/DL (8.5-10.1); CARBON DIOXIDE 30 MMOL/L (21-32); CHLORIDE 106 MMOL/L (98-107); CREATININE 0.7 MG/DL (0.55-1.30); PHOSPHORUS 3.3 MG/DL (2.5-4.9); POTASSIUM 3.9 MMOL/L (3.5-5.1); SODIUM 144 MMOL/L (136-145)
[2019-11-12 08:00] VITALS: BP 132/83
[2019-11-12] MEDS: Theophylline ER 100mg ORAL SCH ×2 (08:45→21:08)
[2019-11-12] MEDS: Montelukast 10mg tablet ORAL SCH (08:46)
[2019-11-12] MEDS: Phenytoin 100mg cap ORAL SCH ×2 (08:46→21:09)
[2019-11-12] MEDS: Aspirin EC 81mg tab ORAL SCH (08:46)
[2019-11-12] MEDS: Lyrica 50mg cap ORAL SCH (08:46)
[2019-11-12] MEDS: Heparin 5000 units/ml inj SUBQ SCH ×2 (08:47→21:12)
[2019-11-12 12:00] VITALS: BP 162/80
--- NOTE | 2019-11-12 12:21 | Pulmonology Progress Note ---
Assessment/Plan Problems: (1) Acute respiratory failure (2) Acute asthma exacerbation (3) Allergic asthma (4) Seizure disorder (5) CAD (coronary artery disease) (6) Chronic back pain Assessment/Plan respiratory treatment check sputum pt had multiple sputum showing michele in the past. I will start her on Diflucan , since she is on high dose steroids. antitussives titrate fio2 to sat of 92% dvt prophylaxis watch BP Subjective ROS Limited/Unobtainable: No Constitutional: Reports: no symptoms HEENT: Repors: no symptoms Allergies: Uncoded Allergies: Canned Food (Allergy, Unknown, 03/22/18) Nausea/Vomitting/Indigestion Objective Last 24 Hour Vital Signs Date Time Temp Pulse Resp B/P (MAP) Pulse Ox O2 Delivery O2 Flow Rate FiO2 11/12/19 12:00 97.3 106 22 162/80 (107) 100 11/12/19 12:00 2.0 11/12/19 09:00 Room Air 11/12/19 09:00 113 11/12/19 08:46 92 132/83 11/12/19 08:18 65 20 98 Nasal Cannula 2.0 28 61 20 93 11/12/19 08:00 97.1 92 18 132/83 (99) 93 11/12/19 08:00 2.0 11/12/19 07:49 96 Nasal Cannula 2.0 28 11/12/19 04:00 97.9 94 20 154/85 (108) 97 11/12/19 04:00 91 11/12/19 04:00 2.0 11/12/19 03:55 169/100 11/12/19 01:12 95 20 100 Nasal Cannula 2.0 28 97 20 98 11/12/19 00:00 94 11/12/19 00:00 97.7 93 20 159/87 (111) 94 11/12/19 00:00 2.0 11/11/19 21:00 Room Air 11/11/19 20:11 99 20 99 Nasal Cannula 2.0 28 94 22 97 11/11/19 20:00 96 11/11/19 20:00 98.1 100 20 168/90 (116) 95 11/11/19 20:00 2.0 11/11/19 19:44 97 Nasal Cannula 2.0 28 11/11/19 16:00 2.0 11/11/19 16:00 100 11/11/19 16:00 98.4 99 18 145/78 (100) 96 Intake and Output 11/11/19 11/12/19 19:00 07:00 Intake Total 730 ml Balance 730 ml Intake Oral 730 ml # Voids 6 4 HEENT: normocephalic, atraumatic Respiratory/Chest: chest wall non-tender, expiratory wheezing, inspiratory wheezing Cardiovascular: normal peripheral pulses, normal rate Abdomen: normal bowel sounds, soft, non tender Genitourinary: normal external genitalia Extremities: no clubbing Neurologic/Psychiatric: veterinary microbiologist II-XII grossly normal Lymphatic: no neck adenopathy Microbiology Date/Time Source Procedure Growth Status 11/10/19 15:45 Nasal Nares Left MRSA Culture - Final NO METHICILLIN RESISTANT STAPH AUREUS... Complete 11/10/19 15:15 Sputum Gram Stain - Final Complete 11/10/19 15:15 Sputum Sputum Culture - Final NORMAL UPPER RESPIRATORY SRUTHI PRESENT Complete 11/10/19 15:45 Rectum Received Laboratory Tests 11/12/19 06:46: White Blood Count 17.3H, Red Blood Count 4.12L, Hemoglobin 12.8, Hematocrit 36.8L, Mean Corpuscular Volume 89, Mean Corpuscular Hemoglobin 31.0, Mean Corpuscular Hemoglobin Concent 34.7, Red Cell Distribution Width 12.7, Platelet Count 206, Mean Platelet Volume 6.9, Neutrophils (%) (Auto) , Lymphocytes (%) ( Auto) , Monocytes (%) (Auto) , Eosinophils (%) (Auto) , Basophils (%) (Auto) , Differential Total Cells Counted 100, Neutrophils % (Manual) 91H, Lymphocytes % (Manual) 6L, Monocytes % (Manual) 3, Eosinophils % (Manual) 0, Basophils % ( Manual) 0, Band Neutrophils 0, Platelet Estimate Adequate, Platelet Morphology Normal, Red Blood Cell Morphology Normal, Erythrocyte Sedimentation Rate 30, Sodium Level 144, Potassium Level 3.9, Chloride Level 106, Carbon Dioxide Level 30, Anion Gap 8, Blood Urea Nitrogen 22H, Creatinine 0.7, Estimat Glomerular Filtration Rate > 60, Glucose Level 150H, Calcium Level 8.6, Phosphorus Level 3.3, Magnesium Level 2.0, Total Bilirubin 0.1L, Aspartate Amino Transf (AST/SGOT ) 13L, Alanine Aminotransferase (ALT/SGPT) 21, Alkaline Phosphatase 83, C- Reactive Protein, Quantitative < 0.4, Total Protein 7.0, Albumin 3.2L, Globulin 3.8, Albumin/Globulin Ratio 0.8L Current Medications Medications (Trade) Dose Ordered Sig/[place] Route PRN Reason Start Time Stop Time Status Last Admin Dose Admin Albuterol/ Ipratropium (Albuterol/ Ipratropium) 3 ml Q4H PRN HHN dyspnea 11/10/19 16:00 11/15/19 15:59 11/12/19 08:08 Amlodipine Besylate (Norvasc) 10 mg DAILY ORAL 11/11/19 09:00 12/11/19 08:59 11/12/19 08:46 Artificial Tears ([place]-Tears) 1 drop BID PRN BOTH EYES Dry Eyes 11/11/19 12:45 12/11/19 12:44 Aspirin (Ecotrin) 81 mg DAILY ORAL 11/11/19 09:00 12/11/19 08:59 11/12/19 08:46 Atorvastatin Calcium (Lipitor) 40 mg BEDTIME ORAL 11/10/19 21:00 12/10/19 20:59 11/11/19 20:54 Cetirizine HCl (ZyrTEC) 10 mg DAILY PRN ORAL ITCHING 11/11/19 12:45 12/11/19 12:44 11/11/19 17:35 Clopidogrel Bisulfate (Plavix) 75 mg DAILY ORAL 11/11/19 09:00 12/11/19 08:59 11/12/19 08:46 Dextrose (Dextrose 50%) 25 ml Q30M PRN IV Hypoglycemia 11/10/19 16:00 12/10/19 15:59 Dextrose (Dextrose 50%) 50 ml Q30M PRN IV Hypoglycemia 11/10/19 16:00 12/10/19 15:59 Fluconazole/ Sodium Chloride 100 ml @ 100 mls/hr Q24H IVPB 11/12/19 12:30 11/19/19 12:29 UNV Fluoxetine HCl (PROzac) 20 mg DAILY ORAL 11/11/19 09:00 12/11/19 08:59 11/12/19 08:46 Heparin Sodium (Porcine) (Heparin 5000 units/ml) 5,000 units EVERY 12 HOURS SUBQ 11/10/19 21:00 12/10/19 20:59 11/12/19 08:47 Lorazepam (Ativan 2mg/ml 1ml) 0.5 mg Q4H PRN IV For Anxiety 11/10/19 16:00 11/17/19 15:59 11/12/19 03:52 Methylprednisolone Sodium Succinate (Solu-MEDROL) 60 mg EVERY 6 HOURS IV 11/10/19 18:00 12/10/19 17:59 11/12/19 11:30 Montelukast Sodium (Singulair) 10 mg DAILY ORAL 11/11/19 09:00 12/11/19 08:59 11/12/19 08:46 Nitroglycerin (Ntg) 0.4 mg Q5M X 3 DOSES PRN SL Prn Chest Pain 11/10/19 16:00 12/10/19 15:59 11/12/19 03:55 Ondansetron HCl (Zofran) 4 mg Q6H PRN IVP Nausea & Vomiting 11/10/19 16:00 12/10/19 15:59 Phenytoin (Dilantin) 100 mg Q12HR ORAL 11/10/19 21:00 12/10/19 20:59 11/12/19 08:46 Piperacillin Sod/ Tazobactam Sod 3.375 gm/Sodium Chloride 110 ml @ 27.5 mls/hr EVERY 8 HOURS IVPB 11/10/19 22:00 11/15/19 21:59 11/12/19 05:46 Pregabalin (Lyrica) 50 mg DAILY ORAL 11/11/19 09:00 12/11/19 08:59 11/12/19 08:46 Promethazine HCl/ Codeine (Phenergan with Codeine) 5 ml Q6H PRN ORAL cough 11/10/19 16:00 12/10/19 15:59 11/12/19 08:46 Temazepam (Restoril) 15 mg HSPRN PRN ORAL Insomnia 11/10/19 16:00 11/17/19 15:59 Theophylline (Fabrice-Dur) 100 mg EVERY 12 HOURS ORAL 11/10/19 21:00 12/10/19 20:59 11/12/19 08:45 Luis A Juares MD Nov 12, 2019 12:21
[2019-11-12 16:03] VITALS: BP 139/68
--- NOTE | 2019-11-12 16:34 | Internal Med Progress Note ---
Subjective Date of Service: Nov 12, 2019 Physician Name Hank Toure Attending Physician Shlomo Garcia MD Current Medications Medications (Trade) Dose Ordered Sig/Mecca Route PRN Reason Start Time Stop Time Status Last Admin Dose Admin Albuterol/ Ipratropium (Albuterol/ Ipratropium) 3 ml Q4H PRN HHN dyspnea 11/10/19 16:00 11/15/19 15:59 11/12/19 13:04 Amlodipine Besylate (Norvasc) 10 mg DAILY ORAL 11/11/19 09:00 12/11/19 08:59 11/12/19 08:46 Artificial Tears (Akwa-Tears) 1 drop BID PRN BOTH EYES Dry Eyes 11/11/19 12:45 12/11/19 12:44 Aspirin (Ecotrin) 81 mg DAILY ORAL 11/11/19 09:00 12/11/19 08:59 11/12/19 08:46 Atorvastatin Calcium (Lipitor) 40 mg BEDTIME ORAL 11/10/19 21:00 12/10/19 20:59 11/11/19 20:54 Cetirizine HCl (ZyrTEC) 10 mg DAILY PRN ORAL ITCHING 11/11/19 12:45 12/11/19 12:44 11/11/19 17:35 Clopidogrel Bisulfate (Plavix) 75 mg DAILY ORAL 11/11/19 09:00 12/11/19 08:59 11/12/19 08:46 Dextrose (Dextrose 50%) 25 ml Q30M PRN IV Hypoglycemia 11/10/19 16:00 12/10/19 15:59 Dextrose (Dextrose 50%) 50 ml Q30M PRN IV Hypoglycemia 11/10/19 16:00 12/10/19 15:59 Fluconazole/ Sodium Chloride 100 ml @ 100 mls/hr Q24H IV 11/12/19 15:00 11/19/19 14:59 11/12/19 14:57 Fluoxetine HCl (PROzac) 20 mg DAILY ORAL 11/11/19 09:00 12/11/19 08:59 11/12/19 08:46 Heparin Sodium (Porcine) (Heparin 5000 units/ml) 5,000 units EVERY 12 HOURS SUBQ 11/10/19 21:00 12/10/19 20:59 11/12/19 08:47 Lorazepam (Ativan 2mg/ml 1ml) 0.5 mg Q4H PRN IV For Anxiety 11/10/19 16:00 11/17/19 15:59 11/12/19 03:52 Methylprednisolone Sodium Succinate (Solu-MEDROL) 60 mg EVERY 6 HOURS IV 11/10/19 18:00 12/10/19 17:59 11/12/19 11:30 Montelukast Sodium (Singulair) 10 mg DAILY ORAL 11/11/19 09:00 12/11/19 08:59 11/12/19 08:46 Nitroglycerin (Ntg) 0.4 mg Q5M X 3 DOSES PRN SL Prn Chest Pain 11/10/19 16:00 12/10/19 15:59 11/12/19 03:55 Ondansetron HCl (Zofran) 4 mg Q6H PRN IVP Nausea & Vomiting 11/10/19 16:00 12/10/19 15:59 Phenytoin (Dilantin) 100 mg Q12HR ORAL 11/10/19 21:00 12/10/19 20:59 11/12/19 08:46 Piperacillin Sod/ Tazobactam Sod 3.375 gm/Sodium Chloride 110 ml @ 27.5 mls/hr EVERY 8 HOURS IVPB 11/10/19 22:00 11/15/19 21:59 11/12/19 13:53 Pregabalin (Lyrica) 50 mg DAILY ORAL 11/11/19 09:00 12/11/19 08:59 11/12/19 08:46 Promethazine HCl/ Codeine (Phenergan with Codeine) 5 ml Q6H PRN ORAL cough 11/10/19 16:00 12/10/19 15:59 11/12/19 08:46 Temazepam (Restoril) 15 mg HSPRN PRN ORAL Insomnia 11/10/19 16:00 11/17/19 15:59 Theophylline (Fabrice-Dur) 100 mg EVERY 12 HOURS ORAL 11/10/19 21:00 12/10/19 20:59 11/12/19 08:45 Allergies: Uncoded Allergies: Canned Food (Allergy, Unknown, 03/22/18) Nausea/Vomitting/Indigestion ROS Limited/Unobtainable: No Constitutional: Reports: no symptoms HEENT: Reports: no symptoms Cardiovascular: Reports: no symptoms Respiratory: Reports: shortness of breath, wheezing Gastrointestinal/Abdominal: Reports: no symptoms Genitourinary: Reports: no symptoms Neurologic/Psychiatric: Reports: no symptoms Subjective 84 YO F admitted with asthma exacerbation. Now purulent bronchitis. Cover for Int Alex-Dr Garcia Objective Last Vital Signs Date Time Temp Pulse Resp B/P (MAP) Pulse Ox O2 Delivery O2 Flow Rate FiO2 11/12/19 16:03 98.2 103 21 139/68 (91) 100 11/12/19 13:14 Nasal Cannula 2.0 28 Laboratory Tests Test 11/12/19 06:46 White Blood Count 17.3 K/UL (4.8-10.8) H Red Blood Count 4.12 M/UL (4.20-5.40) L Hemoglobin 12.8 G/DL (12.0-16.0) Hematocrit 36.8 % (37.0-47.0) L Mean Corpuscular Volume 89 FL (80-99) Mean Corpuscular Hemoglobin 31.0 PG (27.0-31.0) Mean Corpuscular Hemoglobin Concent 34.7 G/DL (32.0-36.0) Red Cell Distribution Width 12.7 % (11.6-14.8) Platelet Count 206 K/UL (150-450) Mean Platelet Volume 6.9 FL (6.5-10.1) Neutrophils (%) (Auto) % (45.0-75.0) Lymphocytes (%) (Auto) % (20.0-45.0) Monocytes (%) (Auto) % (1.0-10.0) Eosinophils (%) (Auto) % (0.0-3.0) Basophils (%) (Auto) % (0.0-2.0) Differential Total Cells Counted 100 Neutrophils % (Manual) 91 % (45-75) H Lymphocytes % (Manual) 6 % (20-45) L Monocytes % (Manual) 3 % (1-10) Eosinophils % (Manual) 0 % (0-3) Basophils % (Manual) 0 % (0-2) Band Neutrophils 0 % (0-8) Platelet Estimate Adequate Platelet Morphology Normal Red Blood Cell Morphology Normal Erythrocyte Sedimentation Rate 30 MM/HR (0-30) Sodium Level 144 MMOL/L (136-145) Potassium Level 3.9 MMOL/L (3.5-5.1) Chloride Level 106 MMOL/L (98-107) Carbon Dioxide Level 30 MMOL/L (21-32) Anion Gap 8 mmol/L (5-15) Blood Urea Nitrogen 22 mg/dL (7-18) H Creatinine 0.7 MG/DL (0.55-1.30) Estimat Glomerular Filtration Rate > 60 mL/min (>60) Glucose Level 150 MG/DL (74-106) H Calcium Level 8.6 MG/DL (8.5-10.1) Phosphorus Level 3.3 MG/DL (2.5-4.9) Magnesium Level 2.0 MG/DL (1.8-2.4) Total Bilirubin 0.1 MG/DL (0.2-1.0) L Aspartate Amino Transf (AST/SGOT) 13 U/L (15-37) L Alanine Aminotransferase (ALT/SGPT) 21 U/L (12-78) Alkaline Phosphatase 83 U/L (46-116) C-Reactive Protein, Quantitative < 0.4 mg/dL (0.00-0.90) Total Protein 7.0 G/DL (6.4-8.2) Albumin 3.2 G/DL (3.4-5.0) L Globulin 3.8 g/dL Albumin/Globulin Ratio 0.8 (1.0-2.7) L Microbiology Date/Time Source Procedure Growth Status 11/10/19 15:45 Nasal Nares Left MRSA Culture - Final NO METHICILLIN RESISTANT STAPH AUREUS... Complete 11/10/19 15:15 Sputum Gram Stain - Final Complete 11/10/19 15:15 Sputum Sputum Culture - Final NORMAL UPPER RESPIRATORY SRUTHI PRESENT Complete 11/10/19 15:45 Rectum Received Intake and Output 11/11/19 11/12/19 19:00 07:00 Intake Total 730 ml Balance 730 ml Intake Oral 730 ml # Voids 6 4 Objective PHYSICAL EXAMINATION: GENERAL: The patient is a well-developed and well-nourished female, who is in moderate respiratory distress. HEENT: Eyes, pupils are equal and responsive to light and accommodation. Extraocular movements are intact. NECK: Supple without lymphadenopathy. CHEST: Decreased breath sounds at bilateral bases with expiratory wheezes. Otherwise, without rales. CARDIOVASCULAR: Regular rhythm and rate. S1, S2 are normal without murmurs, rubs, or gallops. ABDOMEN: Soft, nontender, and nondistended. Positive bowel sounds. No evidence of hepatosplenomegaly. Currently, no rebound or guarding noted. EXTREMITIES: Negative for clubbing, cyanosis, or edema. RECTAL/GENITAL: Not performed. NEUROLOGICAL: Cranial nerves II through XII are grossly intact without focal deficits. Motor strength is 5/5 bilaterally. Deep tendon reflexes are 2+ plantar. Assessment/Plan Assessment/Plan ASSESSMENT: This is an 84-year-old female. 1. Shortness of breath. 2. Hypoxia. 3. Acute asthma exacerbation. 4. Purulent bronchitis. 5. Cerebrovascular disease. 6. Hypertension. 7. Hypercholesterolemia. 8. Gastroesophageal reflux disease. 9. Seizure disorder. 10. Coronary artery disease. TREATMENT: 1. Shortness of breath/acute asthma exacerbation. A Pulmonary consultation has been obtained with Dr. Luis A Juares. The patient is currently receiving intravenous Solu-Medrol and DuoNeb every 6 hours. 2. Purulent bronchitis. ABX=Zosyn. As above, a Pulmonary consultation has been obtained with Dr. Luis A Juares. 3. Cerebrovascular disease, status post hemorrhagic stroke. 4. Hypertension. Continue Norvasc as above. 5. Hypercholesterolemia. Continue atorvastatin as above. 6. Gastroesophageal reflux disease. Continue Protonix as above. 7. Seizure disorder. Continue Dilantin as above. 8. Coronary artery disease. Continue Plavix and aspirin as above. Hank Toure MD Nov 12, 2019 16:34
--- NOTE | 2019-11-12 19:33 | NUR ---
HAND-OFF: Report given to AMMY Belle. Patient's stable, plan of care endorsed.
--- NOTE | 2019-11-12 19:35 | NUR ---
NURSE NOTES: Received patient report from AMMY Adams. Patient in bed sleeping. No signs of distress or pain noted at this time. AOx4. IV site checked, no signs of erythema, bleeding, or infiltration. IV site patent and flushed. Bed in the lowest position, call light within reach, side rails up x2. Will continue plan of care.
[2019-11-12 20:00] VITALS: BP 153/96
[2019-11-12] MEDS: Atorvastatin 20mg tab ORAL SCH (21:08)
[2019-11-13] VITALS: BP 152/69
[2019-11-13] MEDS: Solu-MEDROL 125mg Inj IV SCH ×4 (00:10→18:02)
[2019-11-13 04:00] VITALS: BP 163/88
[2019-11-13] MEDS: Zoysn 3.37gm in NS 100ML IVPB SCH ×3 (05:16→22:23)
--- NOTE | 2019-11-13 07:15 | NUR ---
NURSE NOTES: Nurse report given by AMMY Belle. Patient's awake and sitting in the chair, eyes open spontaneously, breathing regular and unlabored, denies pain, no s/s of distress or SOB, AO x 3. Bed low and locked, call light within reach, side rails x 2. IV is running Zosyn, no s/s of tenderness or infiltration. All needs met, will continue to monitor.
--- NOTE | 2019-11-13 07:24 | NUR ---
HAND-OFF: Report given to AMMY Adams. Patient in stable condition. No signs of distress or pain noted. Endorsed plan of care.
[2019-11-13 07:31] LABS: HEMATOCRIT 39.6 % (37.0-47.0); HEMOGLOBIN 13.7 G/DL (12.0-16.0); MEAN CORPUSCULAR VOLUME 90 FL (80-99); PLATELET COUNT 213 K/UL (150-450); RED BLOOD COUNT 4.41 M/UL (4.20-5.40); RED CELL DISTRIBUTION WIDTH 12.8 % (11.6-14.8); WHITE BLOOD COUNT 15.5 K/UL (4.8-10.8)
[2019-11-13 07:40] LABS: ANION GAP 18 mmol/L (5-15); BLOOD UREA NITROGEN 26 mg/dL (7-18); CALCIUM 9.1 MG/DL (8.5-10.1); CARBON DIOXIDE 21 MMOL/L (21-32); CHLORIDE 104 MMOL/L (98-107); CREATININE 0.9 MG/DL (0.55-1.30); POTASSIUM 4.4 MMOL/L (3.5-5.1); SODIUM 142 MMOL/L (136-145)
[2019-11-13 08:00] VITALS: BP 159/75
[2019-11-13] MEDS: Phenytoin 100mg cap ORAL SCH ×2 (08:49→22:18)
[2019-11-13] MEDS: Lyrica 50mg cap ORAL SCH (08:49)
[2019-11-13] MEDS: Aspirin EC 81mg tab ORAL SCH (08:49)
[2019-11-13] MEDS: Theophylline ER 100mg ORAL SCH ×2 (08:49→22:17)
--- NOTE | 2019-11-13 08:49 | NUR ---
CASE MANAGEMENT:REVIEW 11/13/19 SI: ACUTE ASTHMA EXACERBATION PURULENT BRONCHITIS 97.1 95 18 159/75 95% ON 2L/NC BUN+26 GLUCOSE+159 IS: IV DIFLUCAN Q24 IV ZOSYN Q8HRS IV SOLUMEDROL Q6HRS NORVASC PO QD ASA PO QD PLAVIX PO QD PROZAC PO QD SINGULAR PO QD LYRICA PO QD DILANTIN PO Q12 HEPARIN SQ Q12 MARCIAL-DUR PO Q12 : TELEMETRY STATUS DCP: FROM HOME PLAN: WEAN OXYGEN TOLERATED
[2019-11-13] MEDS: Montelukast 10mg tablet ORAL SCH (08:50)
[2019-11-13] MEDS: Heparin 5000 units/ml inj SUBQ SCH ×2 (08:54→22:22)
--- NOTE | 2019-11-13 09:04 | NUR ---
DISCHARGE PLANNING NURSING TO START WEANING OXYGEN TODAY IN ORDER TO CONFIRM OR DENY THE NEED FOR HOME OXYGEN.
[2019-11-13] MEDS: Promethazine/Codeine 5ml UD ORAL PRN (10:27)
[2019-11-13] MEDS ORDERED: Sucralfate 1gm tab ORAL SCH (10:30)
--- NOTE | 2019-11-13 11:13 | Internal Med Progress Note ---
Subjective Date of Service: Nov 13, 2019 Physician Name Hank Toure Attending Physician Shlomo Garcia MD Current Medications Medications (Trade) Dose Ordered Sig/Mecca Route PRN Reason Start Time Stop Time Status Last Admin Dose Admin Albuterol/ Ipratropium (Albuterol/ Ipratropium) 3 ml Q4H PRN HHN dyspnea 11/10/19 16:00 11/15/19 15:59 11/12/19 21:21 Amlodipine Besylate (Norvasc) 10 mg DAILY ORAL 11/11/19 09:00 12/11/19 08:59 11/13/19 08:50 Artificial Tears (Akwa-Tears) 1 drop BID PRN BOTH EYES Dry Eyes 11/11/19 12:45 12/11/19 12:44 11/12/19 22:51 Aspirin (Ecotrin) 81 mg DAILY ORAL 11/11/19 09:00 12/11/19 08:59 11/13/19 08:49 Atorvastatin Calcium (Lipitor) 40 mg BEDTIME ORAL 11/10/19 21:00 12/10/19 20:59 11/12/19 21:08 Cetirizine HCl (ZyrTEC) 10 mg DAILY PRN ORAL ITCHING 11/11/19 12:45 12/11/19 12:44 11/12/19 22:49 Clopidogrel Bisulfate (Plavix) 75 mg DAILY ORAL 11/11/19 09:00 12/11/19 08:59 11/13/19 08:50 Dextrose (Dextrose 50%) 25 ml Q30M PRN IV Hypoglycemia 11/10/19 16:00 12/10/19 15:59 Dextrose (Dextrose 50%) 50 ml Q30M PRN IV Hypoglycemia 11/10/19 16:00 12/10/19 15:59 Fluconazole/ Sodium Chloride 100 ml @ 100 mls/hr Q24H IV 11/12/19 15:00 11/19/19 14:59 11/12/19 14:57 Fluoxetine HCl (PROzac) 20 mg DAILY ORAL 11/11/19 09:00 12/11/19 08:59 11/13/19 08:49 Heparin Sodium (Porcine) (Heparin 5000 units/ml) 5,000 units EVERY 12 HOURS SUBQ 11/10/19 21:00 12/10/19 20:59 11/13/19 08:54 Lorazepam (Ativan 2mg/ml 1ml) 0.5 mg Q4H PRN IV For Anxiety 11/10/19 16:00 11/17/19 15:59 11/12/19 03:52 Methylprednisolone Sodium Succinate (Solu-MEDROL) 60 mg EVERY 6 HOURS IV 11/10/19 18:00 12/10/19 17:59 11/13/19 05:17 Montelukast Sodium (Singulair) 10 mg DAILY ORAL 11/11/19 09:00 12/11/19 08:59 11/13/19 08:50 Nitroglycerin (Ntg) 0.4 mg Q5M X 3 DOSES PRN SL Prn Chest Pain 11/10/19 16:00 12/10/19 15:59 11/12/19 03:55 Ondansetron HCl (Zofran) 4 mg Q6H PRN IVP Nausea & Vomiting 11/10/19 16:00 12/10/19 15:59 Pantoprazole (Protonix) 40 mg EVERY 12 HOURS ORAL 11/13/19 21:00 12/13/19 20:59 Phenytoin (Dilantin) 100 mg Q12HR ORAL 11/10/19 21:00 12/10/19 20:59 11/13/19 08:49 Piperacillin Sod/ Tazobactam Sod 3.375 gm/Sodium Chloride 110 ml @ 27.5 mls/hr EVERY 8 HOURS IVPB 11/10/19 22:00 11/15/19 21:59 11/13/19 05:16 Pregabalin (Lyrica) 50 mg DAILY ORAL 11/11/19 09:00 12/11/19 08:59 11/13/19 08:49 Promethazine HCl/ Codeine (Phenergan with Codeine) 5 ml Q6H PRN ORAL cough 11/10/19 16:00 12/10/19 15:59 11/13/19 10:27 Sucralfate (Carafate) 1 gm ONCE ORAL 11/13/19 10:30 11/13/19 11:30 11/13/19 10:27 Temazepam (Restoril) 15 mg HSPRN PRN ORAL Insomnia 11/10/19 16:00 11/17/19 15:59 Theophylline (Fabrice-Dur) 100 mg EVERY 12 HOURS ORAL 11/10/19 21:00 12/10/19 20:59 11/13/19 08:49 Allergies: Uncoded Allergies: Canned Food (Allergy, Unknown, 03/22/18) Nausea/Vomitting/Indigestion ROS Limited/Unobtainable: No Constitutional: Reports: no symptoms HEENT: Reports: no symptoms Cardiovascular: Reports: no symptoms Respiratory: Reports: no symptoms Gastrointestinal/Abdominal: Reports: no symptoms Genitourinary: Reports: no symptoms Neurologic/Psychiatric: Reports: no symptoms Subjective 84 YO F admitted with asthma exacerbation. Now purulent bronchitis. Cover for Int Med-Dr Garcia Objective Last Vital Signs Date Time Temp Pulse Resp B/P (MAP) Pulse Ox O2 Delivery O2 Flow Rate FiO2 11/13/19 09:00 Nasal Cannula 2.0 11/13/19 08:50 95 159/75 11/13/19 08:00 97.1 18 95 11/12/19 21:21 28 Laboratory Tests Test 11/13/19 06:35 White Blood Count 15.5 K/UL (4.8-10.8) H Red Blood Count 4.41 M/UL (4.20-5.40) Hemoglobin 13.7 G/DL (12.0-16.0) Hematocrit 39.6 % (37.0-47.0) Mean Corpuscular Volume 90 FL (80-99) Mean Corpuscular Hemoglobin 31.0 PG (27.0-31.0) Mean Corpuscular Hemoglobin Concent 34.5 G/DL (32.0-36.0) Red Cell Distribution Width 12.8 % (11.6-14.8) Platelet Count 213 K/UL (150-450) Mean Platelet Volume 6.6 FL (6.5-10.1) Neutrophils (%) (Auto) % (45.0-75.0) Lymphocytes (%) (Auto) % (20.0-45.0) Monocytes (%) (Auto) % (1.0-10.0) Eosinophils (%) (Auto) % (0.0-3.0) Basophils (%) (Auto) % (0.0-2.0) Differential Total Cells Counted 100 Neutrophils % (Manual) 90 % (45-75) H Lymphocytes % (Manual) 7 % (20-45) L Monocytes % (Manual) 3 % (1-10) Eosinophils % (Manual) 0 % (0-3) Basophils % (Manual) 0 % (0-2) Band Neutrophils 0 % (0-8) Platelet Estimate Adequate Platelet Morphology Normal Red Blood Cell Morphology Normal Sodium Level 142 MMOL/L (136-145) Potassium Level 4.4 MMOL/L (3.5-5.1) Chloride Level 104 MMOL/L (98-107) Carbon Dioxide Level 21 MMOL/L (21-32) Anion Gap 18 mmol/L (5-15) H Blood Urea Nitrogen 26 mg/dL (7-18) H Creatinine 0.9 MG/DL (0.55-1.30) Estimat Glomerular Filtration Rate 59.4 mL/min (>60) Glucose Level 159 MG/DL (74-106) H Calcium Level 9.1 MG/DL (8.5-10.1) Microbiology Date/Time Source Procedure Growth Status 11/10/19 15:45 Nasal Nares Left MRSA Culture - Final NO METHICILLIN RESISTANT STAPH AUREUS... Complete 11/10/19 15:15 Sputum Gram Stain - Final Complete 11/10/19 15:15 Sputum Sputum Culture - Final NORMAL UPPER RESPIRATORY SRUTHI PRESENT Complete 11/10/19 15:45 Rectum VRE Culture - Final NO VANCOMYCIN RESISTANT ENTEROCOCCUS ... Complete Intake and Output 11/12/19 11/13/19 19:00 07:00 Intake Total 250 ml 269.2 ml Balance 250 ml 269.2 ml Intake Oral 250 ml 120 ml IV Total 149.2 ml # Voids 4 2 # Bowel Movements 1 Objective PHYSICAL EXAMINATION: GENERAL: The patient is a well-developed and well-nourished female, who is in moderate respiratory distress. HEENT: Eyes, pupils are equal and responsive to light and accommodation. Extraocular movements are intact. NECK: Supple without lymphadenopathy. CHEST: Decreased breath sounds at bilateral bases with expiratory wheezes. Otherwise, without rales. CARDIOVASCULAR: Regular rhythm and rate. S1, S2 are normal without murmurs, rubs, or gallops. ABDOMEN: Soft, nontender, and nondistended. Positive bowel sounds. No evidence of hepatosplenomegaly. Currently, no rebound or guarding noted. EXTREMITIES: Negative for clubbing, cyanosis, or edema. RECTAL/GENITAL: Not performed. NEUROLOGICAL: Cranial nerves II through XII are grossly intact without focal deficits. Motor strength is 5/5 bilaterally. Deep tendon reflexes are 2+ plantar. Assessment/Plan Assessment/Plan ASSESSMENT: This is an 84-year-old female. 1. Shortness of breath. 2. Hypoxia. 3. Acute asthma exacerbation. 4. Purulent bronchitis. 5. Cerebrovascular disease. 6. Hypertension. 7. Hypercholesterolemia. 8. Gastroesophageal reflux disease. 9. Seizure disorder. 10. Coronary artery disease. TREATMENT: 1. Shortness of breath/acute asthma exacerbation. A Pulmonary consultation has been obtained with Dr. Luis A Juares. The patient is currently receiving intravenous Solu-Medrol and DuoNeb every 6 hours. 2. Purulent bronchitis. ABX=Zosyn. As above, a Pulmonary consultation has been obtained with Dr. Luis A Juares. 3. Cerebrovascular disease, status post hemorrhagic stroke. 4. Hypertension. Continue Norvasc as above. 5. Hypercholesterolemia. Continue atorvastatin as above. 6. Gastroesophageal reflux disease. Continue Protonix as above. 7. Seizure disorder. Continue Dilantin as above. 8. Coronary artery disease. Continue Plavix and aspirin as above. Hank Toure MD Nov 13, 2019 11:12
[2019-11-13] MEDS: Albuterol/Ipratropium 3ml neb HHN PRN ×2 (11:27→22:45)
[2019-11-13] MEDS ORDERED: Mylanta II UD 30ml ORAL PRN (11:45)
[2019-11-13] MEDS ORDERED: Albuterol 90mcg Inhaler 8gm INH PRN (11:45)
[2019-11-13 12:00] VITALS: BP 111/61
--- NOTE | 2019-11-13 12:50 | Pulmonology Progress Note ---
Assessment/Plan Problems: (1) Acute respiratory failure (2) Acute asthma exacerbation (3) Allergic asthma (4) Seizure disorder (5) CAD (coronary artery disease) (6) Chronic back pain Assessment/Plan minimally improved respiratory treatment check sputum pt had multiple sputum showing michele in the past. I will start her on Diflucan , since she is on high dose steroids. antitussives titrate fio2 to sat of 92% dvt prophylaxis watch BP Subjective Interval Events: minimally better Allergies: Uncoded Allergies: Canned Food (Allergy, Unknown, 03/22/18) Nausea/Vomitting/Indigestion Objective Last 24 Hour Vital Signs Date Time Temp Pulse Resp B/P (MAP) Pulse Ox O2 Delivery O2 Flow Rate FiO2 11/13/19 12:00 98.8 98 21 111/61 (78) 95 11/13/19 11:05 74 18 97 Nasal Cannula 2.0 28 90 22 94 11/13/19 09:00 Nasal Cannula 2.0 11/13/19 08:50 95 159/75 11/13/19 08:00 97.1 95 18 159/75 (103) 95 11/13/19 08:00 102 11/13/19 07:45 97 Nasal Cannula 2.0 28 11/13/19 04:00 88 11/13/19 04:00 97.5 92 20 163/88 (113) 95 11/13/19 00:00 100 11/13/19 00:00 98.2 104 20 152/69 (96) 94 11/12/19 21:21 82 20 99 Nasal Cannula 2.0 28 84 20 95 11/12/19 21:00 Nasal Cannula 2.0 11/12/19 20:00 96.8 98 20 153/96 (115) 97 11/12/19 20:00 93 11/12/19 19:08 96 Nasal Cannula 2.0 28 11/12/19 16:03 98.2 103 21 139/68 (91) 100 11/12/19 16:00 103 11/12/19 16:00 2.0 11/12/19 13:14 67 20 97 Nasal Cannula 2.0 28 64 20 93 Intake and Output 11/12/19 11/13/19 19:00 07:00 Intake Total 250 ml 269.2 ml Balance 250 ml 269.2 ml Intake Oral 250 ml 120 ml IV Total 149.2 ml # Voids 4 2 # Bowel Movements 1 General Appearance: WD/WN HEENT: normocephalic, atraumatic Respiratory/Chest: chest wall non-tender, expiratory wheezing, inspiratory wheezing Breasts: no masses Cardiovascular: normal peripheral pulses, normal rate Abdomen: normal bowel sounds, soft, non tender Genitourinary: normal external genitalia Extremities: no cyanosis Skin: no rash Neurologic/Psychiatric: powder carrier II-XII grossly normal Microbiology Date/Time Source Procedure Growth Status 11/10/19 15:45 Nasal Nares Left MRSA Culture - Final NO METHICILLIN RESISTANT STAPH AUREUS... Complete 11/10/19 15:15 Sputum Gram Stain - Final Complete 11/10/19 15:15 Sputum Sputum Culture - Final NORMAL UPPER RESPIRATORY SRUTHI PRESENT Complete 11/10/19 15:45 Rectum VRE Culture - Final NO VANCOMYCIN RESISTANT ENTEROCOCCUS ... Complete Laboratory Tests 11/13/19 06:35: White Blood Count 15.5H, Red Blood Count 4.41, Hemoglobin 13.7, Hematocrit 39.6 , Mean Corpuscular Volume 90, Mean Corpuscular Hemoglobin 31.0, Mean Corpuscular Hemoglobin Concent 34.5, Red Cell Distribution Width 12.8, Platelet Count 213, Mean Platelet Volume 6.6, Neutrophils (%) (Auto) , Lymphocytes (%) ( Auto) , Monocytes (%) (Auto) , Eosinophils (%) (Auto) , Basophils (%) (Auto) , Differential Total Cells Counted 100, Neutrophils % (Manual) 90H, Lymphocytes % (Manual) 7L, Monocytes % (Manual) 3, Eosinophils % (Manual) 0, Basophils % ( Manual) 0, Band Neutrophils 0, Platelet Estimate Adequate, Platelet Morphology Normal, Red Blood Cell Morphology Normal, Sodium Level 142, Potassium Level 4.4 , Chloride Level 104, Carbon Dioxide Level 21, Anion Gap 18H, Blood Urea Nitrogen 26H, Creatinine 0.9, Estimat Glomerular Filtration Rate 59.4, Glucose Level 159H, Calcium Level 9.1 Current Medications Medications (Trade) Dose Ordered Sig/Mecca Route PRN Reason Start Time Stop Time Status Last Admin Dose Admin Al Hydroxide/Mg Hydroxide (Mylanta II) 30 ml Q6H PRN ORAL stomach pain 11/13/19 11:45 12/13/19 11:44 Albuterol Sulfate (Proventil MDI) 2 puff Q4H PRN INH Shortness of Breath 3/11/20 11:45 12/13/19 11:44 Albuterol/ Ipratropium (Albuterol/ Ipratropium) 3 ml Q4H PRN HHN dyspnea 11/10/19 16:00 11/15/19 15:59 11/13/19 11:27 Amlodipine Besylate (Norvasc) 10 mg DAILY ORAL 11/11/19 09:00 12/11/19 08:59 11/13/19 08:50 Artificial Tears (Akwa-Tears) 1 drop BID PRN BOTH EYES Dry Eyes 11/11/19 12:45 12/11/19 12:44 11/12/19 22:51 Aspirin (Ecotrin) 81 mg DAILY ORAL 11/11/19 09:00 12/11/19 08:59 11/13/19 08:49 Atorvastatin Calcium (Lipitor) 40 mg BEDTIME ORAL 11/10/19 21:00 12/10/19 20:59 11/12/19 21:08 Cetirizine HCl (ZyrTEC) 10 mg DAILY PRN ORAL ITCHING 11/11/19 12:45 12/11/19 12:44 11/12/19 22:49 Cetylpyridinium Chloride (Cepacol) 1 lozg Q2H PRN SEDRICK For Cough 11/13/19 11:45 12/13/19 11:44 Clopidogrel Bisulfate (Plavix) 75 mg DAILY ORAL 11/11/19 09:00 12/11/19 08:59 11/13/19 08:50 Dextrose (Dextrose 50%) 25 ml Q30M PRN IV Hypoglycemia 11/10/19 16:00 12/10/19 15:59 Dextrose (Dextrose 50%) 50 ml Q30M PRN IV Hypoglycemia 11/10/19 16:00 12/10/19 15:59 Fluconazole/ Sodium Chloride 100 ml @ 100 mls/hr Q24H IV 11/12/19 15:00 11/19/19 14:59 11/12/19 14:57 Fluoxetine HCl (PROzac) 20 mg DAILY ORAL 11/11/19 09:00 12/11/19 08:59 11/13/19 08:49 Heparin Sodium (Porcine) (Heparin 5000 units/ml) 5,000 units EVERY 12 HOURS SUBQ 11/10/19 21:00 12/10/19 20:59 11/13/19 08:54 Lorazepam (Ativan 2mg/ml 1ml) 0.5 mg Q4H PRN IV For Anxiety 11/10/19 16:00 11/17/19 15:59 11/12/19 03:52 Methylprednisolone Sodium Succinate (Solu-MEDROL) 60 mg EVERY 6 HOURS IV 11/10/19 18:00 12/10/19 17:59 11/13/19 12:37 Montelukast Sodium (Singulair) 10 mg DAILY ORAL 11/11/19 09:00 12/11/19 08:59 11/13/19 08:50 Nitroglycerin (Ntg) 0.4 mg Q5M X 3 DOSES PRN SL Prn Chest Pain 11/10/19 16:00 12/10/19 15:59 11/12/19 03:55 Ondansetron HCl (Zofran) 4 mg Q6H PRN IVP Nausea & Vomiting 11/10/19 16:00 12/10/19 15:59 Pantoprazole (Protonix) 40 mg EVERY 12 HOURS ORAL 11/13/19 21:00 12/13/19 20:59 Phenytoin (Dilantin) 100 mg Q12HR ORAL 11/10/19 21:00 12/10/19 20:59 11/13/19 08:49 Piperacillin Sod/ Tazobactam Sod 3.375 gm/Sodium Chloride 110 ml @ 27.5 mls/hr EVERY 8 HOURS IVPB 11/10/19 22:00 11/15/19 21:59 11/13/19 05:16 Pregabalin (Lyrica) 50 mg DAILY ORAL 11/11/19 09:00 12/11/19 08:59 11/13/19 08:49 Promethazine HCl/ Codeine (Phenergan with Codeine) 5 ml Q6H PRN ORAL cough 11/10/19 16:00 12/10/19 15:59 11/13/19 10:27 Temazepam (Restoril) 15 mg HSPRN PRN ORAL Insomnia 11/10/19 16:00 11/17/19 15:59 Theophylline (Fabrice-Dur) 100 mg EVERY 12 HOURS ORAL 11/10/19 21:00 12/10/19 20:59 11/13/19 08:49 Luis A Juares MD Nov 13, 2019 12:50
[2019-11-13 16:00] VITALS: BP 126/72
--- NOTE | 2019-11-13 19:35 | NUR ---
HAND-OFF: Report given to AMMY Belle. Patient's stable, plan of care endorsed..
--- NOTE | 2019-11-13 19:40 | NUR ---
NURSE NOTES: Received report from AMMY Adams. Patient sitting in the chair comfortably. There are no signs of distress or pain at this time. AOx3 IV checked, patent and flushed. There are no signs of erythema, bleeding, or infiltration noted at this time. Bed in the lowest position, call light within reach, brakes on. Will continue plan of plan of care.
[2019-11-13 20:00] VITALS: BP 155/88
[2019-11-13] MEDS: Atorvastatin 20mg tab ORAL SCH (22:18)
[2019-11-14] VITALS: BP 154/86
[2019-11-14] MEDS: Solu-MEDROL 125mg Inj IV SCH ×5 (00:49→23:13)
[2019-11-14] MEDS: Promethazine/Codeine 5ml UD ORAL PRN ×2 (00:58→10:14)
[2019-11-14 04:00] VITALS: BP 165/87
[2019-11-14] MEDS: Albuterol/Ipratropium 3ml neb HHN PRN ×3 (04:50→20:56)
[2019-11-14] MEDS: Zoysn 3.37gm in NS 100ML IVPB SCH ×3 (06:18→21:25)
--- NOTE | 2019-11-14 07:34 | NUR ---
HAND-OFF: Report given to AMMY Reddy. Patient about to eat her breakfast. No signs of distress or pain noted at this time. Endorsed plan of care.
--- NOTE | 2019-11-14 07:43 | NUR ---
NURSE NOTES: Received report from AMMY Mendez and AMMY Belle. Pt A/O x4, Observed pt about to start eating breakfast, sitting in chair. denies any pain/discomfort. No s/sx of acute distress, breathing unlabored in RA. Bed on lowest position, call light within reach. Will continue to monitor.
[2019-11-14 08:00] VITALS: BP 156/72
[2019-11-14] MEDS: Phenytoin 100mg cap ORAL SCH ×2 (10:02→21:17)
[2019-11-14] MEDS: Montelukast 10mg tablet ORAL SCH (10:04)
[2019-11-14] MEDS: Theophylline ER 100mg ORAL SCH ×2 (10:04→21:17)
[2019-11-14] MEDS: Lyrica 50mg cap ORAL SCH (10:05)
[2019-11-14] MEDS: Heparin 5000 units/ml inj SUBQ SCH ×2 (10:06→21:18)
[2019-11-14] MEDS: Aspirin EC 81mg tab ORAL SCH (10:08)
[2019-11-14 12:00] VITALS: BP 156/91
--- NOTE | 2019-11-14 12:13 | Pulmonology Progress Note ---
Assessment/Plan Problems: (1) Acute respiratory failure (2) Acute asthma exacerbation (3) Allergic asthma (4) Seizure disorder (5) CAD (coronary artery disease) (6) Chronic back pain Assessment/Plan minimally improved respiratory treatment check sputum pt had multiple sputum showing michele in the past. I will start her on Diflucan , since she is on high dose steroids. antitussives titrate fio2 to sat of 92% dvt prophylaxis watch BP Id evaluation requested. Subjective ROS Limited/Unobtainable: No Interval Events: still short of breath, Allergies: Uncoded Allergies: Canned Food (Allergy, Unknown, 03/22/18) Nausea/Vomitting/Indigestion Objective Last 24 Hour Vital Signs Date Time Temp Pulse Resp B/P (MAP) Pulse Ox O2 Delivery O2 Flow Rate FiO2 11/14/19 10:04 101 165/87 11/14/19 09:00 Nasal Cannula 2.0 11/14/19 08:00 98.1 99 20 156/72 (100) 96 11/14/19 07:46 104 11/14/19 07:34 98 Nasal Cannula 2.0 28 11/14/19 07:34 101 19 98 Nasal Cannula 2.0 28 11/14/19 05:00 93 20 98 Nasal Cannula 2.0 28 11/14/19 04:50 92 20 96 Nasal Cannula 2.0 28 11/14/19 04:00 96.8 88 20 165/87 (113) 95 11/14/19 04:00 86 11/14/19 00:00 94 11/14/19 00:00 98.6 92 18 154/86 (108) 97 11/13/19 22:55 94 20 99 Nasal Cannula 2.0 28 11/13/19 22:45 93 20 97 Nasal Cannula 2.0 28 11/13/19 21:00 Nasal Cannula 2.0 11/13/19 20:00 96 11/13/19 20:00 98.4 96 20 155/88 (110) 97 11/13/19 19:30 92 20 97 Nasal Cannula 2.0 28 11/13/19 19:30 97 Nasal Cannula 2.0 28 11/13/19 16:00 98.6 69 19 126/72 (90) 95 11/13/19 16:00 101 Intake and Output 11/13/19 11/14/19 19:00 07:00 Intake Total 580 ml 396.3 ml Balance 580 ml 396.3 ml Intake Oral 580 ml IV Total 146.3 ml Other 250 ml # Voids 3 3 General Appearance: WD/WN Respiratory/Chest: chest wall non-tender, expiratory wheezing, inspiratory wheezing Cardiovascular: normal peripheral pulses, normal rate Genitourinary: normal external genitalia Skin: no rash Current Medications Medications (Trade) Dose Ordered Sig/Mecca Route PRN Reason Start Time Stop Time Status Last Admin Dose Admin Al Hydroxide/Mg Hydroxide (Mylanta II) 30 ml Q6H PRN ORAL stomach pain 11/13/19 11:45 12/13/19 11:44 Albuterol Sulfate (Proventil MDI) 2 puff Q4H PRN INH Shortness of Breath 11/13/19 11:45 12/13/19 11:44 Albuterol/ Ipratropium (Albuterol/ Ipratropium) 3 ml Q4H PRN HHN dyspnea 11/10/19 16:00 11/15/19 15:59 11/14/19 04:50 Amlodipine Besylate (Norvasc) 10 mg DAILY ORAL 11/11/19 09:00 12/11/19 08:59 11/14/19 10:04 Artificial Tears (Akwa-Tears) 1 drop BID PRN BOTH EYES Dry Eyes 11/11/19 12:45 12/11/19 12:44 11/12/19 22:51 Aspirin (Ecotrin) 81 mg DAILY ORAL 11/11/19 09:00 12/11/19 08:59 11/14/19 10:08 Atorvastatin Calcium (Lipitor) 40 mg BEDTIME ORAL 11/10/19 21:00 12/10/19 20:59 11/13/19 22:18 Cetirizine HCl (ZyrTEC) 10 mg DAILY PRN ORAL ITCHING 11/11/19 12:45 12/11/19 12:44 11/12/19 22:49 Cetylpyridinium Chloride (Cepacol) 1 lozg Q2H PRN SEDRICK For Cough 11/13/19 11:45 12/13/19 11:44 Clopidogrel Bisulfate (Plavix) 75 mg DAILY ORAL 11/11/19 09:00 12/11/19 08:59 11/14/19 10:02 Dextrose (Dextrose 50%) 25 ml Q30M PRN IV Hypoglycemia 11/10/19 16:00 12/10/19 15:59 Dextrose (Dextrose 50%) 50 ml Q30M PRN IV Hypoglycemia 11/10/19 16:00 12/10/19 15:59 Fluconazole/ Sodium Chloride 100 ml @ 100 mls/hr Q24H IV 11/12/19 15:00 11/19/19 14:59 11/13/19 15:09 Fluoxetine HCl (PROzac) 20 mg DAILY ORAL 11/11/19 09:00 12/11/19 08:59 11/14/19 10:02 Heparin Sodium (Porcine) (Heparin 5000 units/ml) 5,000 units EVERY 12 HOURS SUBQ 11/10/19 21:00 12/10/19 20:59 11/14/19 10:06 Lorazepam (Ativan 2mg/ml 1ml) 0.5 mg Q4H PRN IV For Anxiety 11/10/19 16:00 11/17/19 15:59 11/12/19 03:52 Methylprednisolone Sodium Succinate (Solu-MEDROL) 60 mg EVERY 6 HOURS IV 11/10/19 18:00 12/10/19 17:59 11/14/19 06:18 Montelukast Sodium (Singulair) 10 mg DAILY ORAL 11/11/19 09:00 12/11/19 08:59 11/14/19 10:04 Nitroglycerin (Ntg) 0.4 mg Q5M X 3 DOSES PRN SL Prn Chest Pain 11/10/19 16:00 12/10/19 15:59 11/12/19 03:55 Ondansetron HCl (Zofran) 4 mg Q6H PRN IVP Nausea & Vomiting 11/10/19 16:00 12/10/19 15:59 Pantoprazole (Protonix) 40 mg EVERY 12 HOURS ORAL 11/13/19 21:00 12/13/19 20:59 11/14/19 10:03 Phenytoin (Dilantin) 100 mg Q12HR ORAL 11/10/19 21:00 12/10/19 20:59 11/14/19 10:02 Piperacillin Sod/ Tazobactam Sod 3.375 gm/Sodium Chloride 110 ml @ 27.5 mls/hr EVERY 8 HOURS IVPB 11/10/19 22:00 11/15/19 21:59 11/14/19 06:18 Pregabalin (Lyrica) 50 mg DAILY ORAL 11/11/19 09:00 12/11/19 08:59 11/14/19 10:05 Promethazine HCl/ Codeine (Phenergan with Codeine) 5 ml Q6H PRN ORAL cough 11/10/19 16:00 12/10/19 15:59 11/14/19 10:14 Temazepam (Restoril) 15 mg HSPRN PRN ORAL Insomnia 11/10/19 16:00 11/17/19 15:59 Theophylline (Fabrice-Dur) 100 mg EVERY 12 HOURS ORAL 11/10/19 21:00 12/10/19 20:59 11/14/19 10:04 Luis A Juares MD Nov 14, 2019 12:13
--- NOTE | 2019-11-14 14:44 | Infectious Diseases Prog Note ---
Subjective Allergies: Uncoded Allergies: Canned Food (Allergy, Unknown, 03/22/18) Nausea/Vomitting/Indigestion Subjective # [id number] Objective Vital Signs Last 24 Hour Vital Signs Date Time Temp Pulse Resp B/P (MAP) Pulse Ox O2 Delivery O2 Flow Rate FiO2 11/14/19 14:12 99 20 99 Nasal Cannula 2.0 28 95 20 95 11/14/19 12:00 98.1 96 20 156/91 (112) 96 11/14/19 11:51 91 11/14/19 10:04 101 165/87 11/14/19 09:00 Nasal Cannula 2.0 11/14/19 08:00 98.1 99 20 156/72 (100) 96 11/14/19 07:46 104 11/14/19 07:34 98 Nasal Cannula 2.0 28 11/14/19 07:34 101 19 98 Nasal Cannula 2.0 28 11/14/19 05:00 93 20 98 Nasal Cannula 2.0 28 11/14/19 04:50 92 20 96 Nasal Cannula 2.0 28 11/14/19 04:00 96.8 88 20 165/87 (113) 95 11/14/19 04:00 86 11/14/19 00:00 94 11/14/19 00:00 98.6 92 18 154/86 (108) 97 11/13/19 22:55 94 20 99 Nasal Cannula 2.0 28 11/13/19 22:45 93 20 97 Nasal Cannula 2.0 28 11/13/19 21:00 Nasal Cannula 2.0 11/13/19 20:00 96 11/13/19 20:00 98.4 96 20 155/88 (110) 97 11/13/19 19:30 92 20 97 Nasal Cannula 2.0 28 11/13/19 19:30 97 Nasal Cannula 2.0 28 11/13/19 16:00 98.6 69 19 126/72 (90) 95 11/13/19 16:00 101 Height (Feet): 5 Height (Inches): 1.00 Weight (Pounds): 158 Current Medications Medications (Trade) Dose Ordered Sig/Mecca Route PRN Reason Start Time Stop Time Status Last Admin Dose Admin Al Hydroxide/Mg Hydroxide (Mylanta II) 30 ml Q6H PRN ORAL stomach pain 11/13/19 11:45 12/13/19 11:44 Albuterol Sulfate (Proventil MDI) 2 puff Q4H PRN INH Shortness of Breath 11/13/19 11:45 12/13/19 11:44 Albuterol/ Ipratropium (Albuterol/ Ipratropium) 3 ml Q4H PRN HHN dyspnea 11/10/19 16:00 11/15/19 15:59 11/14/19 14:16 Amlodipine Besylate (Norvasc) 10 mg DAILY ORAL 11/11/19 09:00 12/11/19 08:59 11/14/19 10:04 Artificial Tears (Akwa-Tears) 1 drop BID PRN BOTH EYES Dry Eyes 11/11/19 12:45 12/11/19 12:44 11/12/19 22:51 Aspirin (Ecotrin) 81 mg DAILY ORAL 11/11/19 09:00 12/11/19 08:59 11/14/19 10:08 Atorvastatin Calcium (Lipitor) 40 mg BEDTIME ORAL 11/10/19 21:00 12/10/19 20:59 11/13/19 22:18 Cetirizine HCl (ZyrTEC) 10 mg DAILY PRN ORAL ITCHING 11/11/19 12:45 12/11/19 12:44 11/12/19 22:49 Cetylpyridinium Chloride (Cepacol) 1 lozg Q2H PRN SEDRICK For Cough 11/13/19 11:45 12/13/19 11:44 Clopidogrel Bisulfate (Plavix) 75 mg DAILY ORAL 11/11/19 09:00 12/11/19 08:59 11/14/19 10:02 Dextrose (Dextrose 50%) 25 ml Q30M PRN IV Hypoglycemia 11/10/19 16:00 12/10/19 15:59 Dextrose (Dextrose 50%) 50 ml Q30M PRN IV Hypoglycemia 11/10/19 16:00 12/10/19 15:59 Fluconazole/ Sodium Chloride 100 ml @ 100 mls/hr Q24H IV 11/12/19 15:00 11/19/19 14:59 11/13/19 15:09 Fluoxetine HCl (PROzac) 20 mg DAILY ORAL 11/11/19 09:00 12/11/19 08:59 11/14/19 10:02 Heparin Sodium (Porcine) (Heparin 5000 units/ml) 5,000 units EVERY 12 HOURS SUBQ 11/10/19 21:00 12/10/19 20:59 11/14/19 10:06 Lorazepam (Ativan 2mg/ml 1ml) 0.5 mg Q4H PRN IV For Anxiety 11/10/19 16:00 11/17/19 15:59 11/12/19 03:52 Methylprednisolone Sodium Succinate (Solu-MEDROL) 60 mg EVERY 6 HOURS IV 11/10/19 18:00 12/10/19 17:59 11/14/19 12:44 Montelukast Sodium (Singulair) 10 mg DAILY ORAL 11/11/19 09:00 12/11/19 08:59 11/14/19 10:04 Nitroglycerin (Ntg) 0.4 mg Q5M X 3 DOSES PRN SL Prn Chest Pain 11/10/19 16:00 12/10/19 15:59 11/12/19 03:55 Ondansetron HCl (Zofran) 4 mg Q6H PRN IVP Nausea & Vomiting 11/10/19 16:00 12/10/19 15:59 Pantoprazole (Protonix) 40 mg EVERY 12 HOURS ORAL 11/13/19 21:00 12/13/19 20:59 11/14/19 10:03 Phenytoin (Dilantin) 100 mg Q12HR ORAL 11/10/19 21:00 12/10/19 20:59 11/14/19 10:02 Piperacillin Sod/ Tazobactam Sod 3.375 gm/Sodium Chloride 110 ml @ 27.5 mls/hr EVERY 8 HOURS IVPB 11/10/19 22:00 11/15/19 21:59 11/14/19 13:42 Pregabalin (Lyrica) 50 mg DAILY ORAL 11/11/19 09:00 12/11/19 08:59 11/14/19 10:05 Promethazine HCl/ Codeine (Phenergan with Codeine) 5 ml Q6H PRN ORAL cough 11/10/19 16:00 12/10/19 15:59 11/14/19 10:14 Temazepam (Restoril) 15 mg HSPRN PRN ORAL Insomnia 11/10/19 16:00 11/17/19 15:59 Theophylline (Fabrice-Dur) 100 mg EVERY 12 HOURS ORAL 11/10/19 21:00 12/10/19 20:59 11/14/19 10:04 Murray Prado MD Nov 14, 2019 14:44
--- NOTE | 2019-11-14 15:04 | NUR ---
CT HIGH RES CHEST COMPLETED
[2019-11-14 16:00] VITALS: BP 153/80
[2019-11-14] MEDS ORDERED: Azithromycin 500 MG in D5W 275 ML IV SCH ×2 (16:00→18:00)
--- NOTE | 2019-11-14 16:03 | Diagnostic Imaging Report ---
Clinical Indication: Shortness of breath, acute respiratory failure Technique: Spiral acquisition obtained through the chest. No IV contrast utilized, per high resolution protocol. Axial 5 x 5 mm slices were reconstructed. Axial 1 mm thick slices were reconstructed using high resolution algorithm at 10 mm intervals. Multiplanar reconstructions generated. Total dose length product 276 mGycm. CTDIvol(s) 7 mGy. Dose reduction achieved using automated exposure control Comparison: 09/19/2019 Findings: Calcified scarring is again demonstrated in the left lung apex. There is minimal faint groundglass opacity in the inferior left upper lobe. There is some scarring in the inferior lingula. Vague groundglass opacity in the left lower lobe is a new finding. There is some atelectasis in the anterior right lower lobe. There is also a single cystic space within the right lower lobe. No dense consolidation, masses, or nodules. High-resolution images demonstrate no evidence of generalized interstitial septal thickening. No evidence of bronchiectasis or honeycombing. The thyroid is unremarkable. 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 The right main pulmonary artery is somewhat ectatic, measuring 28 mm. No mediastinal or hilar mass or adenopathy. The heart size is normal. No pericardial effusion. No axillary or chest wall mass or adenopathy. The included thyroid appears somewhat heterogeneous. Included upper abdominal anatomy is remarkable for cysts in the upper pole of the right kidney. There is a calcification within the right hepatic lobe. Impression: Areas of parenchymal scarring, as described, tingling left upper lobe. There are also areas of atelectasis. Vague faint groundglass opacities are nonspecific, could represent areas of acute inflammation No generalized interstitial abnormality demonstrated. Mildly ectatic right main pulmonary artery, could indicate pulmonary arterial hypertension Somewhat heterogeneous thyroid. Consider sonography for further evaluation if clinically indicated Incidental finding of right upper pole renal cyst, right hepatic lobe calcification, aberrant right subclavian artery The CT scanner at [facility] is accredited by the [employer] and the scans are performed using protocols designed to limit radiation exposure to as low as reasonably achievable to attain images of sufficient resolution adequate for diagnostic evaluation.
--- NOTE | 2019-11-14 18:55 | Internal Med Progress Note ---
Subjective Date of Service: Nov 14, 2019 Physician Name Hank Toure Attending Physician Shlomo Garcia MD Current Medications Medications (Trade) Dose Ordered Sig/Mecca Route PRN Reason Start Time Stop Time Status Last Admin Dose Admin Al Hydroxide/Mg Hydroxide (Mylanta II) 30 ml Q6H PRN ORAL stomach pain 11/13/19 11:45 12/13/19 11:44 Albuterol Sulfate (Proventil MDI) 2 puff Q4H PRN INH Shortness of Breath 11/13/19 11:45 12/13/19 11:44 Albuterol/ Ipratropium (Albuterol/ Ipratropium) 3 ml Q4H PRN HHN dyspnea 11/10/19 16:00 11/15/19 15:59 11/14/19 14:16 Amlodipine Besylate (Norvasc) 10 mg DAILY ORAL 11/11/19 09:00 12/11/19 08:59 11/14/19 10:04 Artificial Tears (Akwa-Tears) 1 drop BID PRN BOTH EYES Dry Eyes 11/11/19 12:45 12/11/19 12:44 11/12/19 22:51 Aspirin (Ecotrin) 81 mg DAILY ORAL 11/11/19 09:00 12/11/19 08:59 11/14/19 10:08 Atorvastatin Calcium (Lipitor) 40 mg BEDTIME ORAL 11/10/19 21:00 12/10/19 20:59 11/13/19 22:18 Azithromycin 500 mg/Dextrose 275 ml @ 275 mls/hr Q24HRS IV 11/14/19 18:00 11/20/19 18:59 11/14/19 18:18 Cetirizine HCl (ZyrTEC) 10 mg DAILY PRN ORAL ITCHING 11/11/19 12:45 12/11/19 12:44 11/12/19 22:49 Cetylpyridinium Chloride (Cepacol) 1 lozg Q2H PRN SEDRICK For Cough 11/13/19 11:45 12/13/19 11:44 Clopidogrel Bisulfate (Plavix) 75 mg DAILY ORAL 11/11/19 09:00 12/11/19 08:59 11/14/19 10:02 Dextrose (Dextrose 50%) 25 ml Q30M PRN IV Hypoglycemia 11/10/19 16:00 12/10/19 15:59 Dextrose (Dextrose 50%) 50 ml Q30M PRN IV Hypoglycemia 11/10/19 16:00 12/10/19 15:59 Fluconazole/ Sodium Chloride 100 ml @ 100 mls/hr Q24H IV 11/12/19 15:00 11/19/19 14:59 11/14/19 15:13 Fluoxetine HCl (PROzac) 20 mg DAILY ORAL 11/11/19 09:00 12/11/19 08:59 11/14/19 10:02 Heparin Sodium (Porcine) (Heparin 5000 units/ml) 5,000 units EVERY 12 HOURS SUBQ 11/10/19 21:00 12/10/19 20:59 11/14/19 10:06 Lorazepam (Ativan 2mg/ml 1ml) 0.5 mg Q4H PRN IV For Anxiety 11/10/19 16:00 11/17/19 15:59 11/12/19 03:52 Methylprednisolone Sodium Succinate (Solu-MEDROL) 60 mg EVERY 6 HOURS IV 11/10/19 18:00 12/10/19 17:59 11/14/19 18:17 Montelukast Sodium (Singulair) 10 mg DAILY ORAL 11/11/19 09:00 12/11/19 08:59 11/14/19 10:04 Nitroglycerin (Ntg) 0.4 mg Q5M X 3 DOSES PRN SL Prn Chest Pain 11/10/19 16:00 12/10/19 15:59 11/12/19 03:55 Ondansetron HCl (Zofran) 4 mg Q6H PRN IVP Nausea & Vomiting 11/10/19 16:00 12/10/19 15:59 Pantoprazole (Protonix) 40 mg EVERY 12 HOURS ORAL 11/13/19 21:00 12/13/19 20:59 11/14/19 10:03 Phenytoin (Dilantin) 100 mg Q12HR ORAL 11/10/19 21:00 12/10/19 20:59 11/14/19 10:02 Piperacillin Sod/ Tazobactam Sod 3.375 gm/Sodium Chloride 110 ml @ 27.5 mls/hr EVERY 8 HOURS IVPB 11/10/19 22:00 11/15/19 21:59 11/14/19 13:42 Pregabalin (Lyrica) 50 mg DAILY ORAL 11/11/19 09:00 12/11/19 08:59 11/14/19 10:05 Promethazine HCl/ Codeine (Phenergan with Codeine) 5 ml Q6H PRN ORAL cough 11/10/19 16:00 12/10/19 15:59 11/14/19 10:14 Temazepam (Restoril) 15 mg HSPRN PRN ORAL Insomnia 11/10/19 16:00 11/17/19 15:59 Theophylline (Fabrice-Dur) 100 mg EVERY 12 HOURS ORAL 11/10/19 21:00 12/10/19 20:59 11/14/19 10:04 Allergies: Uncoded Allergies: Canned Food (Allergy, Unknown, 03/22/18) Nausea/Vomitting/Indigestion ROS Limited/Unobtainable: No Constitutional: Reports: no symptoms HEENT: Reports: no symptoms Cardiovascular: Reports: no symptoms Respiratory: Reports: cough, shortness of breath, wheezing Gastrointestinal/Abdominal: Reports: no symptoms Genitourinary: Reports: no symptoms Neurologic/Psychiatric: Reports: no symptoms Subjective 84 YO F admitted with asthma exacerbation. Now purulent bronchitis. Cover for Int Med-Dr Garcia Objective Last Vital Signs Date Time Temp Pulse Resp B/P (MAP) Pulse Ox O2 Delivery O2 Flow Rate FiO2 11/14/19 16:00 97.9 96 20 153/80 (104) 99 11/14/19 14:12 Nasal Cannula 2.0 28 Intake and Output 11/13/19 11/14/19 19:00 07:00 Intake Total 580 ml 396.3 ml Balance 580 ml 396.3 ml Intake Oral 580 ml IV Total 146.3 ml Other 250 ml # Voids 3 3 Objective PHYSICAL EXAMINATION: GENERAL: The patient is a well-developed and well-nourished female, who is in moderate respiratory distress. HEENT: Eyes, pupils are equal and responsive to light and accommodation. Extraocular movements are intact. NECK: Supple without lymphadenopathy. CHEST: Decreased breath sounds at bilateral bases with expiratory wheezes. Otherwise, without rales. CARDIOVASCULAR: Regular rhythm and rate. S1, S2 are normal without murmurs, rubs, or gallops. ABDOMEN: Soft, nontender, and nondistended. Positive bowel sounds. No evidence of hepatosplenomegaly. Currently, no rebound or guarding noted. EXTREMITIES: Negative for clubbing, cyanosis, or edema. RECTAL/GENITAL: Not performed. NEUROLOGICAL: Cranial nerves II through XII are grossly intact without focal deficits. Motor strength is 5/5 bilaterally. Deep tendon reflexes are 2+ plantar. Assessment/Plan Assessment/Plan ASSESSMENT: This is an 84-year-old female. 1. Shortness of breath. 2. Hypoxia. 3. Acute asthma exacerbation. 4. Purulent bronchitis. 5. Cerebrovascular disease. 6. Hypertension. 7. Hypercholesterolemia. 8. Gastroesophageal reflux disease. 9. Seizure disorder. 10. Coronary artery disease. TREATMENT: 1. Shortness of breath/acute asthma exacerbation. A Pulmonary consultation has been obtained with Dr. Luis A Juares. The patient is currently receiving intravenous Solu-Medrol and DuoNeb every 6 hours. 2. Purulent bronchitis. ABX=Zosyn. As above, a Pulmonary consultation has been obtained with Dr. Luis A Juares. 3. Cerebrovascular disease, status post hemorrhagic stroke. 4. Hypertension. Continue Norvasc as above. 5. Hypercholesterolemia. Continue atorvastatin as above. 6. Gastroesophageal reflux disease. Continue Protonix as above. 7. Seizure disorder. Continue Dilantin as above. 8. Coronary artery disease. Continue Plavix and aspirin as above. Hank Toure MD Nov 14, 2019 18:55
--- NOTE | 2019-11-14 19:08 | NUR ---
HAND-OFF: Report given to AMMY Flanagan. Pt in stable condition, endorsed plan of care.
--- NOTE | 2019-11-14 19:09 | NUR ---
NURSE NOTES: received pt from Maureen GIMENZE., pt is awake and resting on the bed, AOx4. pt has 2L of NC no SOB noted. pt states no pain at this moment. pt forearm 22G is intact, clean, and patent. pt refuse to have one side rail padded, pt is aware the benefit and risk of not having side rail padded. right now pt has only one side rail padded. call light within reach. bed at the lowest position, alarmed, and locked. will continue to monitor pt with plan of care.
[2019-11-14 20:00] VITALS: BP 149/84
--- NOTE | 2019-11-14 20:30 | Consultation ---
DATE OF CONSULTATION: 11/14/2019 INFECTIOUS DISEASE CONSULTATION CONSULTING PHYSICIAN: Murray Prado M.D. REFERRING PHYSICIAN: Luis A Juares M.D. REASON FOR CONSULTATION: Evaluation of patient for pneumonia, antibiotic management. HISTORY OF PRESENT ILLNESS: The patient is an 84-year-old female, who was admitted to this medical center due to shortness of breath. Infectious Disease consultation has been requested for further evaluation of the patient and antibiotic management. PAST MEDICAL HISTORY: 1. Asthma for over 30 years. 2. History of CVA. 3. Hypertension. 4. Hyperlipidemia. 5. GERD. 6. Seizure disorder. 7. CAD. PAST SURGICAL HISTORY: 1. History of appendectomy. 2. History of cardiac catheterization. ALLERGIES: No known drug allergies. MEDICATIONS: Diflucan and Zosyn. FAMILY HISTORY: Not contributing. SOCIAL HISTORY: The patient lives at home. PHYSICAL EXAMINATION: VITAL SIGNS: Temperature 98.1, pulse 86, respiratory rate 18, and blood pressure 153/91. HEENT: No pale conjunctivae. No icterus. NECK: No lymphadenopathy. CHEST: Coarse breathing sounds. HEART: S1-S2. ABDOMEN: Soft, nontender. EXTREMITIES: No cyanosis at this time. NEUROLOGIC: Awake. LABORATORY DATA: White blood cells 15, hemoglobin 13, platelets 213,000. BUN 26, creatinine 0.9. AST, ALT, alkaline phosphatase is unremarkable. Chest x-ray showed possible mild pulmonary vascular congestion. ASSESSMENT: The patient is an 84-year-old female with: 1. Leukocytosis (the patient is on steroids). 2. Bronchitis versus asthma exacerbation. 3. ? Pneumonia. 4. Afebrile. PLAN: 1. We will continue the patient on Zosyn, day #5, Diflucan day #3, (may stop soon). 2. Monitor CBC. 3. Monitor BMP. 4. Monitor cultures (sputum), we will repeat. 5. CT scan of the chest. 6. We will add Zithromax for atypical coverage. 7. Based on the patient's clinical course and labs, we will do further recommendations. Thank you, Dr. Juares, for allowing me to participate in the care of this patient. I will follow the patient with you during this hospitalization. Murray Prado M.D. DR: IVANNA JOB#: [id number] CC:
[2019-11-14] MEDS: Atorvastatin 20mg tab ORAL SCH (21:17)
[2019-11-15] VITALS (8 sets, daily range): BP systolic 131–173; BP diastolic 78–95
[2019-11-15] MEDS: Albuterol/Ipratropium 3ml neb HHN PRN ×3 (03:36→17:33)
[2019-11-15] MEDS: Zoysn 3.37gm in NS 100ML IVPB SCH ×2 (06:10→13:40)
[2019-11-15] MEDS: Solu-MEDROL 125mg Inj IV SCH ×4 (06:10→23:35)
--- NOTE | 2019-11-15 07:20 | NUR ---
HAND-OFF: Report given to Maureen GIMENEZ. pt remains stable condition, endorsed plan of care.
--- NOTE | 2019-11-15 07:21 | NUR ---
NURSE NOTES: Received report from AMMY Flanagan. Pt awake, A/O x4, in 2L NC, no SOB observed, no s/sx of acute distress. Pt denies any pain. IV site on R FA 22g intact and [id number], running IV antibiotics. Pt in seizure precautions, but continues to refuse one side of the bed rail to be padded. Bed on lowest position, call light within reach. Will continue plan of care.
[2019-11-15] MEDS: Phenytoin 100mg cap ORAL SCH ×2 (09:00→21:34)
[2019-11-15] MEDS: Montelukast 10mg tablet ORAL SCH (09:01)
[2019-11-15] MEDS: Theophylline ER 100mg ORAL SCH ×2 (09:01→21:33)
[2019-11-15] MEDS: Aspirin EC 81mg tab ORAL SCH (09:01)
[2019-11-15] MEDS: Lyrica 50mg cap ORAL SCH ×2 (09:02→09:32)
[2019-11-15] MEDS: Heparin 5000 units/ml inj SUBQ SCH ×2 (09:03→21:33)
--- NOTE | 2019-11-15 09:36 | NUR ---
CASE MANAGEMENT:REVIEW 11/14/19 SI: ACUTE ASTHMA EXACERBATION PURULENT BRONCHITIS 98.1 101 18 144/87 98% ON 2L/NC IS: IV DIFLUCAN Q24 IV AZITHROMYCIN Q24 IV ZOSYN Q8HRS IV SOLUMEDROL Q6HRS NORVASC PO QD ASA PO QD PLAVIX PO QD PROZAC PO QD SINGULAR PO QD LYRICA PO QD DILANTIN PO Q12 HEPARIN SQ Q12 MARCIAL-DUR PO Q12 : TELEMETRY STATUS DCP: FROM HOME PLAN: WEAN OXYGEN TOLERATED
--- NOTE | 2019-11-15 10:42 | Infectious Diseases Prog Note ---
Assessment/Plan Assessment/Plan PAST SURGICAL HISTORY: 1. History of appendectomy. 2. History of cardiac catheterization. ASSESSMENT: The patient is an 84-year-old female with: Leukocytosis (the patient is on steroids). Bronchitis versus asthma exacerbation. ? Pneumonia. CT: Areas of parenchymal scarring, as described, tingling left upper lobe.There are also areas of atelectasis. Vague faint groundglass opacities are nonspecific, could represent areas of acute inflammationAfebrile. Asthma for over 30 years. History of CVA. Hypertension. Hyperlipidemia. GERD. Seizure disorder. CAD PLAN: Cont Zithromax # 2/5 for atypical coverage. Cont on Zosyn, day #6 DC Diflucan day # 5 Monitor CBC. Monitor BMP. Monitor cultures (sputum) . Subjective Allergies: Uncoded Allergies: Canned Food (Allergy, Unknown, 03/22/18) Nausea/Vomitting/Indigestion Subjective comfortable WBC improving Objective Vital Signs Last 24 Hour Vital Signs Date Time Temp Pulse Resp B/P (MAP) Pulse Ox O2 Delivery O2 Flow Rate FiO2 11/15/19 10:27 Room Air 11/15/19 09:02 101 144/87 11/15/19 08:18 Nasal Cannula 2.0 11/15/19 07:58 98.1 101 18 144/87 (106) 96 11/15/19 07:31 98 Nasal Cannula 2.0 28 11/15/19 04:00 98.0 90 16 135/80 (98) 100 11/15/19 03:47 92 20 99 Nasal Cannula 2.0 28 11/15/19 03:36 90 20 97 Nasal Cannula 2.0 28 11/15/19 03:34 80 11/15/19 03:34 80 11/15/19 00:00 97.8 86 16 131/78 (95) 99 11/14/19 23:37 83 11/14/19 21:06 96 20 99 Nasal Cannula 2.0 28 11/14/19 21:00 Nasal Cannula 2.0 11/14/19 20:56 95 20 97 Nasal Cannula 2.0 28 11/14/19 20:00 97.3 92 16 149/84 (105) 99 11/14/19 19:51 98 Nasal Cannula 2.0 28 11/14/19 19:51 93 20 98 Nasal Cannula 2.0 28 11/14/19 19:28 98 11/14/19 16:00 97.9 96 20 153/80 (104) 99 11/14/19 15:44 106 11/14/19 14:12 99 20 99 Nasal Cannula 2.0 28 95 20 95 11/14/19 12:00 98.1 96 20 156/91 (112) 96 11/14/19 11:51 91 Height (Feet): 5 Height (Inches): 1.00 Weight (Pounds): 158 HEENT: anicteric Respiratory/Chest: normal breath sounds Cardiovascular: regularly irregular Abdomen: no organomegaly Microbiology Date/Time Source Procedure Growth Status 11/14/19 21:00 Sputum Gram Stain - Final Resulted 11/14/19 21:00 Sputum Sputum Culture Pending Resulted Current Medications Medications (Trade) Dose Ordered Sig/Mecca Route PRN Reason Start Time Stop Time Status Last Admin Dose Admin Al Hydroxide/Mg Hydroxide (Mylanta II) 30 ml Q6H PRN ORAL stomach pain 11/13/19 11:45 12/13/19 11:44 Albuterol Sulfate (Proventil MDI) 2 puff Q4H PRN INH Shortness of Breath 11/13/19 11:45 12/13/19 11:44 Albuterol/ Ipratropium (Albuterol/ Ipratropium) 3 ml Q4H PRN HHN dyspnea 11/10/19 16:00 11/15/19 15:59 11/15/19 03:36 Amlodipine Besylate (Norvasc) 10 mg DAILY ORAL 11/11/19 09:00 12/11/19 08:59 11/15/19 09:02 Artificial Tears (Akwa-Tears) 1 drop BID PRN BOTH EYES Dry Eyes 11/11/19 12:45 12/11/19 12:44 11/12/19 22:51 Aspirin (Ecotrin) 81 mg DAILY ORAL 11/11/19 09:00 12/11/19 08:59 11/15/19 09:01 Atorvastatin Calcium (Lipitor) 40 mg BEDTIME ORAL 11/10/19 21:00 12/10/19 20:59 11/14/19 21:17 Azithromycin 500 mg/Dextrose 275 ml @ 275 mls/hr Q24HRS IV 11/14/19 18:00 11/20/19 18:59 11/14/19 18:18 Cetirizine HCl (ZyrTEC) 10 mg DAILY PRN ORAL ITCHING 11/11/19 12:45 12/11/19 12:44 11/12/19 22:49 Cetylpyridinium Chloride (Cepacol) 1 lozg Q2H PRN SEDRICK For Cough 11/13/19 11:45 12/13/19 11:44 Clopidogrel Bisulfate (Plavix) 75 mg DAILY ORAL 11/11/19 09:00 12/11/19 08:59 11/15/19 09:02 Dextrose (Dextrose 50%) 25 ml Q30M PRN IV Hypoglycemia 11/10/19 16:00 12/10/19 15:59 Dextrose (Dextrose 50%) 50 ml Q30M PRN IV Hypoglycemia 11/10/19 16:00 12/10/19 15:59 Fluconazole/ Sodium Chloride 100 ml @ 100 mls/hr Q24H IV 11/12/19 15:00 11/19/19 14:59 11/14/19 15:13 Fluoxetine HCl (PROzac) 20 mg DAILY ORAL 11/11/19 09:00 12/11/19 08:59 11/15/19 09:01 Heparin Sodium (Porcine) (Heparin 5000 units/ml) 5,000 units EVERY 12 HOURS SUBQ 11/10/19 21:00 12/10/19 20:59 11/15/19 09:03 Lorazepam (Ativan 2mg/ml 1ml) 0.5 mg Q4H PRN IV For Anxiety 11/10/19 16:00 11/17/19 15:59 11/12/19 03:52 Methylprednisolone Sodium Succinate (Solu-MEDROL) 60 mg EVERY 6 HOURS IV 11/10/19 18:00 12/10/19 17:59 11/15/19 06:10 Montelukast Sodium (Singulair) 10 mg DAILY ORAL 11/11/19 09:00 12/11/19 08:59 11/15/19 09:01 Nitroglycerin (Ntg) 0.4 mg Q5M X 3 DOSES PRN SL Prn Chest Pain 11/10/19 16:00 12/10/19 15:59 11/12/19 03:55 Ondansetron HCl (Zofran) 4 mg Q6H PRN IVP Nausea & Vomiting 11/10/19 16:00 12/10/19 15:59 Pantoprazole (Protonix) 40 mg EVERY 12 HOURS ORAL 11/13/19 21:00 12/13/19 20:59 11/15/19 09:00 Phenytoin (Dilantin) 100 mg Q12HR ORAL 11/10/19 21:00 12/10/19 20:59 11/15/19 09:00 Piperacillin Sod/ Tazobactam Sod 3.375 gm/Sodium Chloride 110 ml @ 27.5 mls/hr EVERY 8 HOURS IVPB 11/10/19 22:00 11/17/19 21:59 11/15/19 06:10 Pregabalin (Lyrica) 50 mg DAILY ORAL 11/11/19 09:00 12/11/19 08:59 11/15/19 09:32 Promethazine HCl/ Codeine (Phenergan with Codeine) 5 ml Q6H PRN ORAL cough 11/10/19 16:00 12/10/19 15:59 11/14/19 10:14 Temazepam (Restoril) 15 mg HSPRN PRN ORAL Insomnia 11/10/19 16:00 11/17/19 15:59 Theophylline (Fabrice-Dur) 100 mg EVERY 12 HOURS ORAL 11/10/19 21:00 12/10/19 20:59 11/15/19 09:01 Murray Prado MD Nov 15, 2019 10:42
--- NOTE | 2019-11-15 11:26 | Pulmonology Progress Note ---
Assessment/Plan Problems: (1) Acute respiratory failure (2) Acute asthma exacerbation (3) Allergic asthma (4) Seizure disorder (5) CAD (coronary artery disease) (6) Chronic back pain Assessment/Plan CT chest reviewed: Vague faint groundglass opacities minimally improved respiratory treatment check sputum same dose steroids antitussives titrate fio2 to sat of 92% dvt prophylaxis watch BP Subjective ROS Limited/Unobtainable: No Interval Events: still coughing, short of breath Allergies: Uncoded Allergies: Canned Food (Allergy, Unknown, 03/22/18) Nausea/Vomitting/Indigestion Objective Last 24 Hour Vital Signs Date Time Temp Pulse Resp B/P (MAP) Pulse Ox O2 Delivery O2 Flow Rate FiO2 11/15/19 10:55 94 18 96 Nasal Cannula 2.0 28 91 18 91 11/15/19 10:27 Room Air 11/15/19 09:02 101 144/87 11/15/19 08:18 Nasal Cannula 2.0 11/15/19 07:58 98.1 101 18 144/87 (106) 96 11/15/19 07:48 102 11/15/19 07:31 98 Nasal Cannula 2.0 28 11/15/19 04:00 98.0 90 16 135/80 (98) 100 11/15/19 03:47 92 20 99 Nasal Cannula 2.0 28 11/15/19 03:36 90 20 97 Nasal Cannula 2.0 28 11/15/19 03:34 80 11/15/19 03:34 80 11/15/19 00:00 97.8 86 16 131/78 (95) 99 11/14/19 23:37 83 11/14/19 21:06 96 20 99 Nasal Cannula 2.0 28 11/14/19 21:00 Nasal Cannula 2.0 11/14/19 20:56 95 20 97 Nasal Cannula 2.0 28 11/14/19 20:00 97.3 92 16 149/84 (105) 99 11/14/19 19:51 98 Nasal Cannula 2.0 28 11/14/19 19:51 93 20 98 Nasal Cannula 2.0 28 11/14/19 19:28 98 11/14/19 16:00 97.9 96 20 153/80 (104) 99 11/14/19 15:44 106 11/14/19 14:12 99 20 99 Nasal Cannula 2.0 28 95 20 95 11/14/19 12:00 98.1 96 20 156/91 (112) 96 11/14/19 11:51 91 Intake and Output 11/14/19 11/15/19 19:00 07:00 Intake Total 720 ml Balance 720 ml Intake Oral 720 ml # Voids 4 General Appearance: WD/WN HEENT: normocephalic Respiratory/Chest: chest wall non-tender, lungs clear, normal breath sounds Cardiovascular: normal peripheral pulses, normal rate Abdomen: normal bowel sounds, soft, non tender Extremities: no cyanosis Microbiology Date/Time Source Procedure Growth Status 11/14/19 21:00 Sputum Gram Stain - Final Resulted 11/14/19 21:00 Sputum Sputum Culture Pending Resulted Current Medications Medications (Trade) Dose Ordered Sig/Mecca Route PRN Reason Start Time Stop Time Status Last Admin Dose Admin Al Hydroxide/Mg Hydroxide (Mylanta II) 30 ml Q6H PRN ORAL stomach pain 11/13/19 11:45 12/13/19 11:44 Albuterol Sulfate (Proventil MDI) 2 puff Q4H PRN INH Shortness of Breath 11/13/19 11:45 12/13/19 11:44 Albuterol/ Ipratropium (Albuterol/ Ipratropium) 3 ml Q4H PRN HHN dyspnea 11/10/19 16:00 11/15/19 15:59 11/15/19 10:53 Amlodipine Besylate (Norvasc) 10 mg DAILY ORAL 11/11/19 09:00 12/11/19 08:59 11/15/19 09:02 Artificial Tears (Akwa-Tears) 1 drop BID PRN BOTH EYES Dry Eyes 11/11/19 12:45 12/11/19 12:44 11/12/19 22:51 Aspirin (Ecotrin) 81 mg DAILY ORAL 11/11/19 09:00 12/11/19 08:59 11/15/19 09:01 Atorvastatin Calcium (Lipitor) 40 mg BEDTIME ORAL 11/10/19 21:00 12/10/19 20:59 11/14/19 21:17 Azithromycin 500 mg/Dextrose 275 ml @ 275 mls/hr Q24HRS IV 11/14/19 18:00 11/20/19 18:59 11/14/19 18:18 Cetirizine HCl (ZyrTEC) 10 mg DAILY PRN ORAL ITCHING 11/11/19 12:45 12/11/19 12:44 11/12/19 22:49 Cetylpyridinium Chloride (Cepacol) 1 lozg Q2H PRN SEDRICK For Cough 11/13/19 11:45 12/13/19 11:44 Clopidogrel Bisulfate (Plavix) 75 mg DAILY ORAL 11/11/19 09:00 12/11/19 08:59 11/15/19 09:02 Dextrose (Dextrose 50%) 25 ml Q30M PRN IV Hypoglycemia 11/10/19 16:00 12/10/19 15:59 Dextrose (Dextrose 50%) 50 ml Q30M PRN IV Hypoglycemia 11/10/19 16:00 12/10/19 15:59 Fluoxetine HCl (PROzac) 20 mg DAILY ORAL 11/11/19 09:00 12/11/19 08:59 11/15/19 09:01 Heparin Sodium (Porcine) (Heparin 5000 units/ml) 5,000 units EVERY 12 HOURS SUBQ 11/10/19 21:00 12/10/19 20:59 11/15/19 09:03 Lorazepam (Ativan 2mg/ml 1ml) 0.5 mg Q4H PRN IV For Anxiety 11/10/19 16:00 11/17/19 15:59 11/12/19 03:52 Methylprednisolone Sodium Succinate (Solu-MEDROL) 60 mg EVERY 6 HOURS IV 11/10/19 18:00 12/10/19 17:59 11/15/19 06:10 Montelukast Sodium (Singulair) 10 mg DAILY ORAL 11/11/19 09:00 12/11/19 08:59 11/15/19 09:01 Nitroglycerin (Ntg) 0.4 mg Q5M X 3 DOSES PRN SL Prn Chest Pain 11/10/19 16:00 12/10/19 15:59 11/12/19 03:55 Ondansetron HCl (Zofran) 4 mg Q6H PRN IVP Nausea & Vomiting 11/10/19 16:00 12/10/19 15:59 Pantoprazole (Protonix) 40 mg EVERY 12 HOURS ORAL 11/13/19 21:00 12/13/19 20:59 11/15/19 09:00 Phenytoin (Dilantin) 100 mg Q12HR ORAL 11/10/19 21:00 12/10/19 20:59 11/15/19 09:00 Piperacillin Sod/ Tazobactam Sod 3.375 gm/Sodium Chloride 110 ml @ 27.5 mls/hr EVERY 8 HOURS IVPB 11/10/19 22:00 11/17/19 21:59 11/15/19 06:10 Pregabalin (Lyrica) 50 mg DAILY ORAL 11/11/19 09:00 12/11/19 08:59 11/15/19 09:32 Promethazine HCl/ Codeine (Phenergan with Codeine) 5 ml Q6H PRN ORAL cough 11/10/19 16:00 12/10/19 15:59 11/14/19 10:14 Temazepam (Restoril) 15 mg HSPRN PRN ORAL Insomnia 11/10/19 16:00 11/17/19 15:59 Theophylline (Fabrice-Dur) 100 mg EVERY 12 HOURS ORAL 11/10/19 21:00 12/10/19 20:59 11/15/19 09:01 Luis A Juares MD Nov 15, 2019 11:26
[2019-11-15] MEDS ORDERED: Nitroglycerin Subl 0.4mg tab SL PRN (17:00)
--- NOTE | 2019-11-15 17:10 | NUR ---
NURSE NOTES: Received report from AMMY Reddy. Belongings checked and money counted with transferring RN. Patient A&Ox4. On room air. IV intact, patent, and saline locked. Patient's own walker at bedside. Bed in lowest position with call light in reach. Patient refuses to have both side rails padded for seizure precautions despite education on benefits and risks. Will continue with plan of care.
--- NOTE | 2019-11-15 17:22 | Internal Med Progress Note ---
Subjective Physician Name Shlomo Garcia Attending Physician Shlomo Garcia MD Current Medications Medications (Trade) Dose Ordered Sig/Mecca Route PRN Reason Start Time Stop Time Status Last Admin Dose Admin Al Hydroxide/Mg Hydroxide (Mylanta II) 30 ml Q6H PRN ORAL stomach pain 11/15/19 17:45 12/13/19 11:44 Albuterol Sulfate (Proventil MDI) 2 puff Q4H PRN INH Shortness of Breath 11/15/19 18:00 12/13/19 17:59 Amlodipine Besylate (Norvasc) 10 mg DAILY ORAL 11/16/19 09:00 12/11/19 08:59 Artificial Tears (Akwa-Tears) 1 drop BIDPRN PRN BOTH EYES Dry Eyes 11/15/19 18:00 12/15/19 17:59 Aspirin (Ecotrin) 81 mg DAILY ORAL 11/16/19 09:00 12/11/19 08:59 Atorvastatin Calcium (Lipitor) 40 mg BEDTIME ORAL 11/15/19 21:00 12/10/19 20:59 Azithromycin 500 mg/Dextrose 275 ml @ 275 mls/hr Q24HRS IV 11/15/19 18:00 11/20/19 18:59 Cetirizine HCl (ZyrTEC) 10 mg DAILYPRN PRN ORAL ITCHING 11/15/19 18:00 12/15/19 17:59 Cetylpyridinium Chloride (Cepacol) 1 lozg Q2H PRN SEDRICK For Cough 11/15/19 17:30 12/13/19 17:29 Clopidogrel Bisulfate (Plavix) 75 mg DAILY ORAL 11/16/19 09:00 12/11/19 08:59 Dextrose (Dextrose 50%) 25 ml Q30M PRN IV Hypoglycemia 11/15/19 17:00 12/10/19 15:59 Dextrose (Dextrose 50%) 50 ml Q30M PRN IV Hypoglycemia 11/15/19 17:00 12/10/19 15:59 Fluoxetine HCl (PROzac) 20 mg DAILY ORAL 11/16/19 09:00 12/11/19 08:59 Heparin Sodium (Porcine) (Heparin 5000 units/ml) 5,000 units EVERY 12 HOURS SUBQ 11/15/19 21:00 12/10/19 20:59 Lorazepam (Ativan 2mg/ml 1ml) 0.5 mg Q4H PRN IV For Anxiety 11/15/19 17:30 11/17/19 17:29 Methylprednisolone Sodium Succinate (Solu-MEDROL) 60 mg EVERY 6 HOURS IV 11/15/19 18:00 12/10/19 17:59 Montelukast Sodium (Singulair) 10 mg DAILY ORAL 11/16/19 09:00 12/11/19 08:59 Nitroglycerin (Ntg) 0.4 mg Q5M X 3 DOSES PRN SL Prn Chest Pain 11/15/19 17:00 12/10/19 15:59 Ondansetron HCl (Zofran) 4 mg Q6H PRN IVP Nausea & Vomiting 11/15/19 17:30 12/10/19 17:29 Pantoprazole (Protonix) 40 mg EVERY 12 HOURS ORAL 11/15/19 21:00 12/13/19 20:59 Phenytoin (Dilantin) 100 mg Q12HR ORAL 11/15/19 21:00 12/10/19 20:59 Piperacillin Sod/ Tazobactam Sod 3.375 gm/Sodium Chloride 110 ml @ 27.5 mls/hr EVERY 8 HOURS IVPB 11/15/19 22:00 11/17/19 21:59 Pregabalin (Lyrica) 50 mg DAILY ORAL 11/16/19 09:00 12/11/19 08:59 Promethazine HCl/ Codeine (Phenergan with Codeine) 5 ml Q6H PRN ORAL cough 11/15/19 18:00 12/10/19 17:59 Temazepam (Restoril) 15 mg HSPRN PRN ORAL Insomnia 11/16/19 21:00 11/17/19 20:59 Theophylline (Fabrice-Dur) 100 mg EVERY 12 HOURS ORAL 11/15/19 21:00 12/10/19 20:59 Allergies: Uncoded Allergies: Canned Food (Allergy, Unknown, 03/22/18) Nausea/Vomitting/Indigestion Subjective Alert, awake, responsive, complain about shortness of breath, denies any chest pain. Objective Last Vital Signs Date Time Temp Pulse Resp B/P (MAP) Pulse Ox O2 Delivery O2 Flow Rate FiO2 11/15/19 12:27 105 11/15/19 11:47 97.8 18 169/88 (115) 100 11/15/19 10:55 Nasal Cannula 2.0 28 Microbiology Date/Time Source Procedure Growth Status 11/14/19 21:00 Sputum Gram Stain - Final Resulted 11/14/19 21:00 Sputum Sputum Culture Pending Resulted Intake and Output 11/14/19 11/15/19 19:00 07:00 Intake Total 720 ml Balance 720 ml Intake Oral 720 ml # Voids 4 Objective General: No acute distress, awake and alert HEENT: NCAT, sclera anicteric, PERRL, EOMI. Neck: Supple, no significant jugular venous distention, Lungs: Fair inspiratory effort, Bilateral Expiratory wheeze or Rales. Heart: Regular rate and rhythm, normal S1/S2, no murmur. Abdomen: soft, nontender, nondistended. Normoactive bowel sounds. / Rectal: Refused and deferred. Extremities: No Cyanosis , clubbing or edema. Neuro: A&O x 3, Able to move all extremities Skin: warm, no rashes or lesions Psych: Normal mood and affect Assessment/Plan Assessment/Plan ASSESSMENT: This is an 84-year-old female. 1. Shortness of breath. 2. Acute Hypoxia Respiratory failure. 3. Acute asthma exacerbation. 4. Purulent bronchitis. 5. Cerebrovascular disease. 6. Hypertension. 7. Hypercholesterolemia. 8. Gastroesophageal reflux disease. 9. Seizure disorder. 10. Coronary artery disease. TREATMENT: 1. Shortness of breath/acute asthma exacerbation. A Pulmonary consultation has been obtained with Dr. Luis A Juares. The patient is currently receiving intravenous Solu-Medrol and DuoNeb 60 mg IV every 6 hours. 2. Purulent bronchitis. ABX=Zosyn and Zithromax. As above, a Pulmonary consultation has been obtained with Dr. Luis A Juares. 3. Cerebrovascular disease, status post hemorrhagic stroke. 4. Hypertension. Continue Norvasc as above. 5. Hypercholesterolemia. Continue atorvastatin as above. 6. Gastroesophageal reflux disease. Continue Protonix as above. 7. Seizure disorder. Continue Dilantin as above. 8. Coronary artery disease. Continue Plavix and aspirin as above. Shlomo Garcia MD Nov 15, 2019 17:22
--- NOTE | 2019-11-15 17:25 | NUR ---
HAND-OFF: Pt transferred to [facility]. Report given to AMMY Velez. Pt in stable condition, endorsed plan of care.
[2019-11-15] MEDS ORDERED: LORazepam Inj 2mg/ml 1ml IV PRN (17:30)
[2019-11-15] MEDS ORDERED: Mylanta II UD 30ml ORAL PRN (17:45)
[2019-11-15] MEDS ORDERED: Albuterol 90mcg Inhaler 8gm INH PRN (18:00)
[2019-11-15] MEDS: Azithromycin 500 MG in D5W 275 ML IV SCH (18:00)
--- NOTE | 2019-11-15 19:30 | NUR ---
HAND-OFF: Report given to AMMY Mancini.
--- NOTE | 2019-11-15 19:43 | NUR ---
NURSE NOTES: patient in bed, A&Ox4, verbally responsive. No respiratory distress noted on room air. No c/o pain or discomfort at this time. Fall precaution in place and pt refused to padded side rails. Sign on the door, bed alarm is on, bed in the lowest position and locked. call light within reach. will do frequent rounds and continue to monitor the pt
[2019-11-15] MEDS: Atorvastatin 20mg tab ORAL SCH (21:34)
[2019-11-15] MEDS: Piperacillin/Tazobactam 3.375 GM in NS 110 ML IVPB SCH (21:36)
[2019-11-16] MEDS: Promethazine/Codeine 5ml UD ORAL PRN (02:51)
[2019-11-16 04:00] VITALS: BP 168/99
[2019-11-16] MEDS: Solu-MEDROL 125mg Inj IV SCH ×3 (05:51→17:44)
[2019-11-16] MEDS: Piperacillin/Tazobactam 3.375 GM in NS 110 ML IVPB SCH ×3 (05:51→21:13)
--- NOTE | 2019-11-16 07:11 | Infectious Diseases Prog Note ---
Assessment/Plan Assessment/Plan PAST SURGICAL HISTORY: 1. History of appendectomy. 2. History of cardiac catheterization. ASSESSMENT: The patient is an 84-year-old female with: Leukocytosis (the patient is on steroids). Bronchitis versus asthma exacerbation. ? Pneumonia. CT: Areas of parenchymal scarring, as described, tingling left upper lobe.There are also areas of atelectasis. Vague faint groundglass opacities are nonspecific, could represent areas of acute inflammation Afebrile. Asthma for over 30 years. History of CVA. Hypertension. Hyperlipidemia. GERD. Seizure disorder. CAD PLAN: Cont Zithromax # 3/ for atypical coverage. Cont on Zosyn, day #7 11/14 sp Diflucan day # 5 Monitor CBC. Monitor BMP. Monitor cultures (sputum) . Subjective Allergies: Uncoded Allergies: Canned Food (Allergy, Unknown, 03/22/18) Nausea/Vomitting/Indigestion Subjective Afebrile. stable 2L. still feels sob Objective Vital Signs Last 24 Hour Vital Signs Date Time Temp Pulse Resp B/P (MAP) Pulse Ox O2 Delivery O2 Flow Rate FiO2 11/16/19 05:52 166/94 11/16/19 04:00 98.2 83 20 168/99 (122) 95 11/15/19 23:24 97.9 87 18 153/91 (111) 96 11/15/19 21:31 98 Nasal Cannula 2.0 28 11/15/19 21:00 Room Air 11/15/19 20:00 98.7 97 18 160/93 (115) 95 11/15/19 17:37 97.7 96 22 173/94 (120) 94 11/15/19 17:33 82 18 99 Nasal Cannula 2.0 28 75 18 98 11/15/19 16:00 98.1 81 19 161/95 (117) 100 11/15/19 12:27 105 11/15/19 11:47 97.8 78 18 169/88 (115) 100 11/15/19 10:55 94 18 96 Nasal Cannula 2.0 28 91 18 91 11/15/19 10:27 Room Air 11/15/19 09:02 101 144/87 11/15/19 08:18 Nasal Cannula 2.0 11/15/19 07:58 98.1 101 18 144/87 (106) 96 11/15/19 07:48 102 11/15/19 07:31 98 Nasal Cannula 2.0 28 Height (Feet): 5 Height (Inches): 1.00 Weight (Pounds): 158 General Appearance: no acute distress HEENT: normocephalic Respiratory/Chest: no respiratory distress, no accessory muscle use Cardiovascular: normal rate, regular rhythm Abdomen: soft, non tender, non distended Microbiology Date/Time Source Procedure Growth Status 11/14/19 21:00 Sputum Gram Stain - Final Resulted 11/14/19 21:00 Sputum Sputum Culture Pending Resulted Current Medications Medications (Trade) Dose Ordered Sig/Mecca Route PRN Reason Start Time Stop Time Status Last Admin Dose Admin Al Hydroxide/Mg Hydroxide (Mylanta II) 30 ml Q6H PRN ORAL stomach pain 11/15/19 17:45 12/13/19 11:44 Albuterol/ Ipratropium (Albuterol/ Ipratropium) 3 ml Q4H PRN HHN Shortness of Breath 11/15/19 17:30 11/20/19 17:29 11/15/19 17:33 Amlodipine Besylate (Norvasc) 10 mg DAILY ORAL 11/16/19 09:00 12/11/19 08:59 Artificial Tears (Akwa-Tears) 1 drop BIDPRN PRN BOTH EYES Dry Eyes 11/15/19 18:00 12/15/19 17:59 Aspirin (Ecotrin) 81 mg DAILY ORAL 11/16/19 09:00 12/11/19 08:59 Atorvastatin Calcium (Lipitor) 40 mg BEDTIME ORAL 11/15/19 21:00 12/10/19 20:59 11/15/19 21:34 Azithromycin 500 mg/Dextrose 275 ml @ 275 mls/hr Q24HRS IV 11/15/19 18:00 11/20/19 18:59 11/15/19 18:00 Cetirizine HCl (ZyrTEC) 10 mg DAILYPRN PRN ORAL ITCHING 11/15/19 18:00 12/15/19 17:59 Cetylpyridinium Chloride (Cepacol) 1 lozg Q2H PRN SEDRICK For Cough 11/15/19 17:30 12/13/19 17:29 11/16/19 01:44 Clonidine HCl (Catapres Tab) 0.1 mg Q4H PRN ORAL SBP above 160 11/15/19 20:30 12/15/19 20:29 11/16/19 05:52 Clopidogrel Bisulfate (Plavix) 75 mg DAILY ORAL 11/16/19 09:00 12/11/19 08:59 Dextrose (Dextrose 50%) 25 ml Q30M PRN IV Hypoglycemia 11/15/19 17:00 12/10/19 15:59 Dextrose (Dextrose 50%) 50 ml Q30M PRN IV Hypoglycemia 11/15/19 17:00 12/10/19 15:59 Fluoxetine HCl (PROzac) 20 mg DAILY ORAL 11/16/19 09:00 12/11/19 08:59 Heparin Sodium (Porcine) (Heparin 5000 units/ml) 5,000 units EVERY 12 HOURS SUBQ 11/15/19 21:00 12/10/19 20:59 11/15/19 21:33 Lorazepam (Ativan 2mg/ml 1ml) 0.5 mg Q4H PRN IV For Anxiety 11/15/19 17:30 11/17/19 17:29 Methylprednisolone Sodium Succinate (Solu-MEDROL) 60 mg EVERY 6 HOURS IV 11/15/19 18:00 12/10/19 17:59 11/16/19 05:51 Montelukast Sodium (Singulair) 10 mg DAILY ORAL 11/16/19 09:00 12/11/19 08:59 Nitroglycerin (Ntg) 0.4 mg Q5M X 3 DOSES PRN SL Prn Chest Pain 11/15/19 17:00 12/10/19 15:59 Ondansetron HCl (Zofran) 4 mg Q6H PRN IVP Nausea & Vomiting 11/15/19 17:30 12/10/19 17:29 Pantoprazole (Protonix) 40 mg EVERY 12 HOURS ORAL 11/15/19 21:00 12/13/19 20:59 11/15/19 21:33 Phenytoin (Dilantin) 100 mg Q12HR ORAL 11/15/19 21:00 12/10/19 20:59 11/15/19 21:34 Piperacillin Sod/ Tazobactam Sod 3.375 gm/Sodium Chloride 110 ml @ 27.5 mls/hr EVERY 8 HOURS IVPB 11/15/19 22:00 11/17/19 21:59 11/16/19 05:51 Pregabalin (Lyrica) 50 mg DAILY ORAL 11/16/19 09:00 12/11/19 08:59 Promethazine HCl/ Codeine (Phenergan with Codeine) 5 ml Q6H PRN ORAL cough 11/15/19 18:00 12/10/19 17:59 11/16/19 02:51 Temazepam (Restoril) 15 mg HSPRN PRN ORAL Insomnia 11/16/19 21:00 11/17/19 20:59 Theophylline (Fabrice-Dur) 100 mg EVERY 12 HOURS ORAL 11/15/19 21:00 12/10/19 20:59 11/15/19 21:33 Damon Trent MD Nov 16, 2019 07:10
--- NOTE | 2019-11-16 07:16 | Pulmonology Progress Note ---
Assessment/Plan Assessment/Plan ASSESSMENT Acute hypoxemic hypercapnic respiratory failure Acute asthma exacerbation Allergic asthma Purulent bronchitis Leukocytosis likely reactive due to steroids Peripheral edema Hypertension Coronary artery disease Seizure disorder Chronic back pain PLAN OF CARE MS floor O2 HHN steroids and start tapering empiric abx per ID SCX 38 NGT, SCX 12 p trial of theophylline a/tussive prn give Lasix 40 mg IV x1 resume oral maintenance Lasix in am, check pro BNP CT chest : Areas of parenchymal scarring, as described, tingling left upper lobe. There are also areas of atelectasis. Vague faint groundglass opacities are nonspecific, could represent areas of acute inflammation No generalized interstitial abnormality demonstrated. Mildly ectatic right main pulmonary artery, could indicate pulmonary arterial hypertension Somewhat heterogeneous thyroid. Consider sonography for further evaluation if clinically indicated leukocytosis likely reactive due to steroids, trend WBC continue Singulair and Zyrtec DVT prophylaxis BP management with current regimen continue DAP therapy and statin seizure precautions, continue Dilantin pain management prn supportive care case discussed and evaluated by supervising physician Subjective Allergies: Uncoded Allergies: Canned Food (Allergy, Unknown, 03/22/18) Nausea/Vomitting/Indigestion Subjective afebrile significant wheezing c/o swollen legs Objective Last 24 Hour Vital Signs Date Time Temp Pulse Resp B/P (MAP) Pulse Ox O2 Delivery O2 Flow Rate FiO2 11/16/19 05:52 166/94 11/16/19 04:00 98.2 83 20 168/99 (122) 95 11/15/19 23:24 97.9 87 18 153/91 (111) 96 11/15/19 21:31 98 Nasal Cannula 2.0 28 11/15/19 21:00 Room Air 11/15/19 20:00 98.7 97 18 160/93 (115) 95 11/15/19 17:37 97.7 96 22 173/94 (120) 94 11/15/19 17:33 82 18 99 Nasal Cannula 2.0 28 75 18 98 11/15/19 16:00 98.1 81 19 161/95 (117) 100 11/15/19 12:27 105 11/15/19 11:47 97.8 78 18 169/88 (115) 100 11/15/19 10:55 94 18 96 Nasal Cannula 2.0 28 91 18 91 11/15/19 10:27 Room Air 11/15/19 09:02 101 144/87 11/15/19 08:18 Nasal Cannula 2.0 11/15/19 07:58 98.1 101 18 144/87 (106) 96 11/15/19 07:48 102 11/15/19 07:31 98 Nasal Cannula 2.0 28 Intake and Output 11/15/19 11/16/19 19:00 07:00 Intake Total 720 ml 110.0 ml Output Total 1 ml 600 ml Balance 719 ml -490.0 ml Intake Oral 720 ml IV Total 110.0 ml Output Urine Total 600 ml Stool Total 1 ml # Voids 7 1 General Appearance: no acute distress, other - elderly female HEENT: normocephalic, atraumatic, anicteric, mucous membranes moist Respiratory/Chest: expiratory wheezing - diffuse throughout lungs Cardiovascular: normal peripheral pulses, normal rate, edema - +2 BLE Skin: no rash Neurologic/Psychiatric: no motor/sensory deficits, alert, responsive Musculoskeletal: atrophy - BLE Microbiology Date/Time Source Procedure Growth Status 11/14/19 21:00 Sputum Gram Stain - Final Resulted 11/14/19 21:00 Sputum Sputum Culture Pending Resulted Current Medications Medications (Trade) Dose Ordered Sig/Mecca Route PRN Reason Start Time Stop Time Status Last Admin Dose Admin Al Hydroxide/Mg Hydroxide (Mylanta II) 30 ml Q6H PRN ORAL stomach pain 11/15/19 17:45 12/13/19 11:44 Albuterol/ Ipratropium (Albuterol/ Ipratropium) 3 ml Q4H PRN HHN Shortness of Breath 11/15/19 17:30 11/20/19 17:29 11/15/19 17:33 Amlodipine Besylate (Norvasc) 10 mg DAILY ORAL 11/16/19 09:00 12/11/19 08:59 Artificial Tears (Akwa-Tears) 1 drop BIDPRN PRN BOTH EYES Dry Eyes 11/15/19 18:00 12/15/19 17:59 Aspirin (Ecotrin) 81 mg DAILY ORAL 11/16/19 09:00 12/11/19 08:59 Atorvastatin Calcium (Lipitor) 40 mg BEDTIME ORAL 11/15/19 21:00 12/10/19 20:59 11/15/19 21:34 Azithromycin 500 mg/Dextrose 275 ml @ 275 mls/hr Q24HRS IV 11/15/19 18:00 11/20/19 18:59 11/15/19 18:00 Cetirizine HCl (ZyrTEC) 10 mg DAILYPRN PRN ORAL ITCHING 11/15/19 18:00 12/15/19 17:59 Cetylpyridinium Chloride (Cepacol) 1 lozg Q2H PRN SEDRICK For Cough 11/15/19 17:30 12/13/19 17:29 11/16/19 01:44 Clonidine HCl (Catapres Tab) 0.1 mg Q4H PRN ORAL SBP above 160 11/15/19 20:30 12/15/19 20:29 11/16/19 05:52 Clopidogrel Bisulfate (Plavix) 75 mg DAILY ORAL 11/16/19 09:00 12/11/19 08:59 Dextrose (Dextrose 50%) 25 ml Q30M PRN IV Hypoglycemia 11/15/19 17:00 12/10/19 15:59 Dextrose (Dextrose 50%) 50 ml Q30M PRN IV Hypoglycemia 11/15/19 17:00 12/10/19 15:59 Fluoxetine HCl (PROzac) 20 mg DAILY ORAL 11/16/19 09:00 12/11/19 08:59 Heparin Sodium (Porcine) (Heparin 5000 units/ml) 5,000 units EVERY 12 HOURS SUBQ 11/15/19 21:00 12/10/19 20:59 11/15/19 21:33 Lorazepam (Ativan 2mg/ml 1ml) 0.5 mg Q4H PRN IV For Anxiety 11/15/19 17:30 11/17/19 17:29 Methylprednisolone Sodium Succinate (Solu-MEDROL) 60 mg EVERY 6 HOURS IV 11/15/19 18:00 12/10/19 17:59 11/16/19 05:51 Montelukast Sodium (Singulair) 10 mg DAILY ORAL 11/16/19 09:00 12/11/19 08:59 Nitroglycerin (Ntg) 0.4 mg Q5M X 3 DOSES PRN SL Prn Chest Pain 11/15/19 17:00 12/10/19 15:59 Ondansetron HCl (Zofran) 4 mg Q6H PRN IVP Nausea & Vomiting 11/15/19 17:30 4/7/20 17:29 Pantoprazole (Protonix) 40 mg EVERY 12 HOURS ORAL 11/15/19 21:00 12/13/19 20:59 11/15/19 21:33 Phenytoin (Dilantin) 100 mg Q12HR ORAL 11/15/19 21:00 12/10/19 20:59 11/15/19 21:34 Piperacillin Sod/ Tazobactam Sod 3.375 gm/Sodium Chloride 110 ml @ 27.5 mls/hr EVERY 8 HOURS IVPB 11/15/19 22:00 11/17/19 21:59 11/16/19 05:51 Pregabalin (Lyrica) 50 mg DAILY ORAL 11/16/19 09:00 12/11/19 08:59 Promethazine HCl/ Codeine (Phenergan with Codeine) 5 ml Q6H PRN ORAL cough 11/15/19 18:00 12/10/19 17:59 11/16/19 02:51 Temazepam (Restoril) 15 mg HSPRN PRN ORAL Insomnia 11/16/19 21:00 11/17/19 20:59 Theophylline (Fabrice-Dur) 100 mg EVERY 12 HOURS ORAL 11/15/19 21:00 12/10/19 20:59 11/15/19 21:33 Jessica Landry [employer]ER Nov 16, 2019 07:16
--- NOTE | 2019-11-16 07:47 | NUR ---
HAND-OFF: Report given to AMMY Webber.Endorsed fall risk status to oncoming shift. Fall precautionin place. Bed alarm is on, side rails two up,bed in low and locked position.
[2019-11-16 08:00] VITALS: BP 152/89
[2019-11-16] MEDS: Albuterol/Ipratropium 3ml neb HHN PRN ×2 (08:50→21:05)
[2019-11-16] MEDS: Montelukast 10mg tablet ORAL SCH (09:01)
[2019-11-16] MEDS: Theophylline ER 100mg ORAL SCH ×2 (09:02→20:50)
[2019-11-16] MEDS: Lyrica 50mg cap ORAL SCH (09:02)
[2019-11-16] MEDS: Phenytoin 100mg cap ORAL SCH ×2 (09:02→20:50)
[2019-11-16] MEDS: Aspirin EC 81mg tab ORAL SCH (09:03)
[2019-11-16] MEDS: Heparin 5000 units/ml inj SUBQ SCH ×2 (09:09→20:50)
--- NOTE | 2019-11-16 11:23 | NUR ---
NURSE NOTES: Patient seen on rounds sitting at edge of bed, AxOx4, able to make needs known. Not in distress. With mild SOB relieved with PRN nebulizer tx and rest. IV on right hand intact infusing ordered IVF. Patient on seizure precautions but refused padded side rails. Risks and benefits discussed and pt verbalized understanding. New orders received to give one-time dose of Lasix 40mg SIVP. BP 152/89. Orders noted and carried out. Call light placed within reach. Bed placed on lowest position. Advised patient to call nurse for assistance. Will continue to monitor.
[2019-11-16 12:00] VITALS: BP 159/81
[2019-11-16 16:00] VITALS: BP 152/86
--- NOTE | 2019-11-16 17:15 | Internal Med Progress Note ---
Subjective Physician Name TejalHank Attending Physician Shlomo Garcia MD Current Medications Medications (Trade) Dose Ordered Sig/Mecca Route PRN Reason Start Time Stop Time Status Last Admin Dose Admin Al Hydroxide/Mg Hydroxide (Mylanta II) 30 ml Q6H PRN ORAL stomach pain 11/15/19 17:45 12/13/19 11:44 Albuterol/ Ipratropium (Albuterol/ Ipratropium) 3 ml Q4H PRN HHN Shortness of Breath 11/15/19 17:30 11/20/19 17:29 11/16/19 08:50 Amlodipine Besylate (Norvasc) 10 mg DAILY ORAL 11/16/19 09:00 12/11/19 08:59 11/16/19 09:02 Artificial Tears (Akwa-Tears) 1 drop BIDPRN PRN BOTH EYES Dry Eyes 11/15/19 18:00 12/15/19 17:59 Aspirin (Ecotrin) 81 mg DAILY ORAL 11/16/19 09:00 12/11/19 08:59 11/16/19 09:03 Atorvastatin Calcium (Lipitor) 40 mg BEDTIME ORAL 11/15/19 21:00 12/10/19 20:59 11/15/19 21:34 Azithromycin 500 mg/Dextrose 275 ml @ 275 mls/hr Q24HRS IV 11/15/19 18:00 11/20/19 18:59 11/15/19 18:00 Cetirizine HCl (ZyrTEC) 10 mg DAILYPRN PRN ORAL ITCHING 11/15/19 18:00 12/15/19 17:59 Cetylpyridinium Chloride (Cepacol) 1 lozg Q2H PRN SEDRICK For Cough 11/15/19 17:30 12/13/19 17:29 11/16/19 01:44 Clonidine HCl (Catapres Tab) 0.1 mg Q4H PRN ORAL SBP above 160 11/15/19 20:30 12/15/19 20:29 11/16/19 05:52 Clopidogrel Bisulfate (Plavix) 75 mg DAILY ORAL 11/16/19 09:00 12/11/19 08:59 11/16/19 09:01 Dextrose (Dextrose 50%) 25 ml Q30M PRN IV Hypoglycemia 11/15/19 17:00 12/10/19 15:59 Dextrose (Dextrose 50%) 50 ml Q30M PRN IV Hypoglycemia 11/15/19 17:00 12/10/19 15:59 Fluoxetine HCl (PROzac) 20 mg DAILY ORAL 11/16/19 09:00 12/11/19 08:59 11/16/19 09:02 Heparin Sodium (Porcine) (Heparin 5000 units/ml) 5,000 units EVERY 12 HOURS SUBQ 11/15/19 21:00 12/10/19 20:59 11/16/19 09:09 Lorazepam (Ativan 2mg/ml 1ml) 0.5 mg Q4H PRN IV For Anxiety 11/15/19 17:30 11/17/19 17:29 Methylprednisolone Sodium Succinate (Solu-MEDROL) 60 mg Q8H IV 11/16/19 09:00 12/16/19 08:59 11/16/19 09:19 Montelukast Sodium (Singulair) 10 mg DAILY ORAL 11/16/19 09:00 12/11/19 08:59 11/16/19 09:01 Nitroglycerin (Ntg) 0.4 mg Q5M X 3 DOSES PRN SL Prn Chest Pain 11/15/19 17:00 12/10/19 15:59 Ondansetron HCl (Zofran) 4 mg Q6H PRN IVP Nausea & Vomiting 11/15/19 17:30 12/10/19 17:29 Pantoprazole (Protonix) 40 mg EVERY 12 HOURS ORAL 11/15/19 21:00 12/13/19 20:59 11/16/19 09:03 Phenytoin (Dilantin) 100 mg Q12HR ORAL 11/15/19 21:00 12/10/19 20:59 11/16/19 09:02 Piperacillin Sod/ Tazobactam Sod 3.375 gm/Sodium Chloride 110 ml @ 27.5 mls/hr EVERY 8 HOURS IVPB 11/15/19 22:00 11/20/19 21:59 11/16/19 14:32 Pregabalin (Lyrica) 50 mg DAILY ORAL 11/16/19 09:00 12/11/19 08:59 11/16/19 09:02 Promethazine HCl/ Codeine (Phenergan with Codeine) 5 ml Q6H PRN ORAL cough 11/15/19 18:00 4/7/20 17:59 11/16/19 02:51 Temazepam (Restoril) 15 mg HSPRN PRN ORAL Insomnia 11/16/19 21:00 11/17/19 20:59 Theophylline (Fabrice-Dur) 100 mg EVERY 12 HOURS ORAL 11/15/19 21:00 12/10/19 20:59 11/16/19 09:02 Allergies: Uncoded Allergies: Canned Food (Allergy, Unknown, 03/22/18) Nausea/Vomitting/Indigestion ROS Limited/Unobtainable: No Constitutional: Reports: no symptoms HEENT: Reports: no symptoms Cardiovascular: Reports: no symptoms Respiratory: Reports: shortness of breath, wheezing Gastrointestinal/Abdominal: Reports: no symptoms Genitourinary: Reports: no symptoms Neurologic/Psychiatric: Reports: no symptoms Subjective 84 YO F admitted with asthma exacerbation. Now purulent bronchitis. Cover for Int Med-Dr Garcia Objective Last Vital Signs Date Time Temp Pulse Resp B/P (MAP) Pulse Ox O2 Delivery O2 Flow Rate FiO2 11/16/19 16:00 98.4 85 18 152/86 (108) 98 11/16/19 09:00 Nasal Cannula 2.0 28 Microbiology Date/Time Source Procedure Growth Status 11/14/19 21:00 Sputum Gram Stain - Final Resulted 11/14/19 21:00 Sputum Sputum Culture Pending Resulted Intake and Output 11/15/19 11/16/19 19:00 07:00 Intake Total 720 ml 137.5 ml Output Total 1 ml 600 ml Balance 719 ml -462.5 ml Intake Oral 720 ml IV Total 137.5 ml Output Urine Total 600 ml Stool Total 1 ml # Voids 7 1 Objective PHYSICAL EXAMINATION: GENERAL: The patient is a well-developed and well-nourished female, who is in moderate respiratory distress. HEENT: Eyes, pupils are equal and responsive to light and accommodation. Extraocular movements are intact. NECK: Supple without lymphadenopathy. CHEST: Decreased breath sounds at bilateral bases with expiratory wheezes. Otherwise, without rales. CARDIOVASCULAR: Regular rhythm and rate. S1, S2 are normal without murmurs, rubs, or gallops. ABDOMEN: Soft, nontender, and nondistended. Positive bowel sounds. No evidence of hepatosplenomegaly. Currently, no rebound or guarding noted. EXTREMITIES: Negative for clubbing, cyanosis, or edema. RECTAL/GENITAL: Not performed. NEUROLOGICAL: Cranial nerves II through XII are grossly intact without focal deficits. Motor strength is 5/5 bilaterally. Deep tendon reflexes are 2+ plantar. Assessment/Plan Assessment/Plan ASSESSMENT: This is an 84-year-old female. 1. Shortness of breath. 2. Hypoxia. 3. Acute asthma exacerbation. 4. Purulent bronchitis. 5. Cerebrovascular disease. 6. Hypertension. 7. Hypercholesterolemia. 8. Gastroesophageal reflux disease. 9. Seizure disorder. 10. Coronary artery disease. TREATMENT: 1. Shortness of breath/acute asthma exacerbation. A Pulmonary consultation has been obtained with Dr. Luis A Juares. The patient is currently receiving intravenous Solu-Medrol and DuoNeb every 6 hours. 2. Purulent bronchitis. ABX=Zosyn. As above, a Pulmonary consultation has been obtained with Dr. Luis A Juares. 3. Cerebrovascular disease, status post hemorrhagic stroke. 4. Hypertension. Continue Norvasc as above. 5. Hypercholesterolemia. Continue atorvastatin as above. 6. Gastroesophageal reflux disease. Continue Protonix as above. 7. Seizure disorder. Continue Dilantin as above. 8. Coronary artery disease. Continue Plavix and aspirin as above. Hank Toure MD Nov 16, 2019 17:15
[2019-11-16] MEDS: Azithromycin 500 MG in D5W 275 ML IV SCH (17:44)
--- NOTE | 2019-11-16 19:02 | NUR ---
Patient requested room change to 405-1 due to room being too cold. Personal belongings transferred with patient. Addendum: 11/16/19 at 1904 by Sophie Whitfield RN NURSE NOTES: Addendum: Heading added
--- NOTE | 2019-11-16 19:04 | NUR ---
HAND-OFF: Report given to Simran Spence RN.
[2019-11-16 20:00] VITALS: BP 157/89
[2019-11-16] MEDS: Atorvastatin 20mg tab ORAL SCH (20:51)
[2019-11-17] VITALS (7 sets, daily range): BP systolic 146–178; BP diastolic 84–96
[2019-11-17] MEDS: Solu-MEDROL 125mg Inj IV SCH ×3 (00:14→17:07)
--- NOTE | 2019-11-17 00:25 | NUR ---
NURSE NOTES: Rechecked Vital signs with BP of 172/90. Administered Clonidine 0.1mg as ordered with SBP>160. Will recheck BP in an hour.
--- NOTE | 2019-11-17 02:02 | NUR ---
Rechecked BP after one hour 137/75.
[2019-11-17] MEDS: Piperacillin/Tazobactam 3.375 GM in NS 110 ML IVPB SCH ×3 (05:25→21:02)
--- NOTE | 2019-11-17 06:35 | NUR ---
NURSE NOTES: Pt refused her morning labs. Despite of education and encouragement pt refused blood draw this morning.
--- NOTE | 2019-11-17 07:19 | NUR ---
HAND-OFF: Report given to AMMY Webber. Endorsed fall risk status to oncoming shift. Fall precaution in place. Sign on the door, bed alarm is on, side rails two up,call light within reach and bed in low and locked position.
[2019-11-17 08:18] LABS: HEMATOCRIT 43.3 % (37.0-47.0); MEAN CORPUSCULAR VOLUME 88 FL (80-99); PLATELET COUNT 235 K/UL (150-450); RED CELL DISTRIBUTION WIDTH 12.6 % (11.6-14.8); WHITE BLOOD COUNT 15.5 K/UL (4.8-10.8)
[2019-11-17] MEDS: Albuterol/Ipratropium 3ml neb HHN PRN ×2 (08:19→15:04)
--- NOTE | 2019-11-17 08:27 | Pulmonology Progress Note ---
Assessment/Plan Assessment/Plan ASSESSMENT Acute hypoxemic hypercapnic respiratory failure Acute asthma exacerbation Allergic asthma Purulent bronchitis Leukocytosis likely reactive due to steroids Peripheral edema Hypertension Coronary artery disease Seizure disorder Chronic back pain PLAN OF CARE MS floor O2 HHN steroids and started tapering empiric abx per ID SCX 11/09 NGT, SCX 11/13 p trial of theophylline a/tussive prn CXR in am s/p Lasix 40 mg IV x1 11/15 resume oral maintenance Lasix after checking renal parameters, pro BNP pending CT chest : Areas of parenchymal scarring, as described, tingling left upper lobe. There are also areas of atelectasis. Vague faint groundglass opacities are nonspecific, could represent areas of acute inflammation No generalized interstitial abnormality demonstrated. Mildly ectatic right main pulmonary artery, could indicate pulmonary arterial hypertension Somewhat heterogeneous thyroid. Consider sonography for further evaluation if clinically indicated leukocytosis likely reactive due to steroids, trend WBC continue Singulair and Zyrtec DVT prophylaxis BP management with current regimen continue DAP therapy and statin seizure precautions, continue Dilantin pain management prn supportive care case discussed and evaluated by supervising physician Subjective Allergies: Uncoded Allergies: Canned Food (Allergy, Unknown, 03/22/18) Nausea/Vomitting/Indigestion Subjective afebrile less wheezing Objective Last 24 Hour Vital Signs Date Time Temp Pulse Resp B/P (MAP) Pulse Ox O2 Delivery O2 Flow Rate FiO2 11/17/19 04:00 98.1 90 19 151/88 (109) 96 11/17/19 00:14 172/90 11/17/19 00:00 97.9 79 19 172/92 (118) 94 11/16/19 21:04 87 18 100 Nasal Cannula 2.0 28 91 18 98 11/16/19 21:00 Room Air 2.0 11/16/19 20:10 91 20 98 Nasal Cannula 2.0 28 11/16/19 20:10 98 Nasal Cannula 2.0 28 11/16/19 20:00 98.2 88 18 157/89 (111) 94 11/16/19 16:00 98.4 85 18 152/86 (108) 98 11/16/19 12:00 98.2 82 18 159/81 (107) 98 11/16/19 09:02 86 152/89 11/16/19 09:00 82 18 100 Nasal Cannula 2.0 28 71 18 99 11/16/19 09:00 Room Air 2.0 Intake and Output 11/16/19 11/17/19 19:00 07:00 Intake Total 1467.5 ml 165.0 ml Balance 1467.5 ml 165.0 ml Intake Oral 1000 ml IV Total 467.5 ml 165.0 ml # Voids 5 4 Objective General Appearance: no acute distress, other - elderly female HEENT: normocephalic, atraumatic, anicteric, mucous membranes moist Respiratory/Chest: expiratory wheezing , decreasing Cardiovascular: normal peripheral pulses, normal rate, edema - +2 BLE Skin: no rash Neurologic/Psychiatric: no motor/sensory deficits, alert, responsive Musculoskeletal: atrophy - BLE Microbiology Date/Time Source Procedure Growth Status 11/14/19 21:00 Sputum Gram Stain - Final Complete 11/14/19 21:00 Sputum Culture - Final Suha Albicans Usual Respiratory Vandana Complete Laboratory Tests 11/17/19 06:40: White Blood Count [Pending], Red Blood Count [Pending], Hemoglobin [Pending], Hematocrit [Pending], Mean Corpuscular Volume [Pending], Mean Corpuscular Hemoglobin [Pending], Mean Corpuscular Hemoglobin Concent [Pending], Red Cell Distribution Width [Pending], Platelet Count [Pending], Mean Platelet Volume [ Pending], Neutrophils (%) (Auto) [Pending], Lymphocytes (%) (Auto) [Pending], Monocytes (%) (Auto) [Pending], Eosinophils (%) (Auto) [Pending], Basophils (%) (Auto) [Pending], Sodium Level [Pending], Potassium Level [Pending], Chloride Level [Pending], Carbon Dioxide Level [Pending], Blood Urea Nitrogen [Pending], Creatinine [Pending], Estimat Glomerular Filtration Rate [Pending], Glucose Level [Pending], Calcium Level [Pending], Pro-B-Type Natriuretic Peptide [ Pending] Current Medications Medications (Trade) Dose Ordered Sig/Mecca Route PRN Reason Start Time Stop Time Status Last Admin Dose Admin Al Hydroxide/Mg Hydroxide (Mylanta II) 30 ml Q6H PRN ORAL stomach pain 11/15/19 17:45 12/13/19 11:44 Albuterol/ Ipratropium (Albuterol/ Ipratropium) 3 ml Q4H PRN HHN Shortness of Breath 11/15/19 17:30 11/20/19 17:29 11/17/19 08:19 Amlodipine Besylate (Norvasc) 10 mg DAILY ORAL 11/16/19 09:00 12/11/19 08:59 11/16/19 09:02 Artificial Tears (Akwa-Tears) 1 drop BIDPRN PRN BOTH EYES Dry Eyes 11/15/19 18:00 12/15/19 17:59 Aspirin (Ecotrin) 81 mg DAILY ORAL 11/16/19 09:00 12/11/19 08:59 11/16/19 09:03 Atorvastatin Calcium (Lipitor) 40 mg BEDTIME ORAL 11/15/19 21:00 12/10/19 20:59 11/16/19 20:51 Azithromycin 500 mg/Dextrose 275 ml @ 275 mls/hr Q24HRS IV 11/15/19 18:00 11/20/19 18:59 11/16/19 17:44 Cetirizine HCl (ZyrTEC) 10 mg DAILYPRN PRN ORAL ITCHING 11/15/19 18:00 12/15/19 17:59 Cetylpyridinium Chloride (Cepacol) 1 lozg Q2H PRN SEDRICK For Cough 11/15/19 17:30 12/13/19 17:29 11/16/19 01:44 Clonidine HCl (Catapres Tab) 0.1 mg Q4H PRN ORAL SBP above 160 11/15/19 20:30 12/15/19 20:29 11/17/19 00:14 Clopidogrel Bisulfate (Plavix) 75 mg DAILY ORAL 11/16/19 09:00 12/11/19 08:59 11/16/19 09:01 Dextrose (Dextrose 50%) 25 ml Q30M PRN IV Hypoglycemia 11/15/19 17:00 12/10/19 15:59 Dextrose (Dextrose 50%) 50 ml Q30M PRN IV Hypoglycemia 11/15/19 17:00 12/10/19 15:59 Fluoxetine HCl (PROzac) 20 mg DAILY ORAL 11/16/19 09:00 12/11/19 08:59 11/16/19 09:02 Heparin Sodium (Porcine) (Heparin 5000 units/ml) 5,000 units EVERY 12 HOURS SUBQ 11/15/19 21:00 12/10/19 20:59 11/16/19 20:50 Lorazepam (Ativan 2mg/ml 1ml) 0.5 mg Q4H PRN IV For Anxiety 11/15/19 17:30 11/17/19 17:29 Methylprednisolone Sodium Succinate (Solu-MEDROL) 60 mg Q8H IV 11/16/19 09:00 12/16/19 08:59 11/17/19 00:14 Montelukast Sodium (Singulair) 10 mg DAILY ORAL 11/16/19 09:00 12/11/19 08:59 11/16/19 09:01 Nitroglycerin (Ntg) 0.4 mg Q5M X 3 DOSES PRN SL Prn Chest Pain 11/15/19 17:00 12/10/19 15:59 Ondansetron HCl (Zofran) 4 mg Q6H PRN IVP Nausea & Vomiting 11/15/19 17:30 12/10/19 17:29 Pantoprazole (Protonix) 40 mg EVERY 12 HOURS ORAL 11/15/19 21:00 12/13/19 20:59 11/16/19 20:50 Phenytoin (Dilantin) 100 mg Q12HR ORAL 11/15/19 21:00 12/10/19 20:59 11/16/19 20:50 Piperacillin Sod/ Tazobactam Sod 3.375 gm/Sodium Chloride 110 ml @ 27.5 mls/hr EVERY 8 HOURS IVPB 11/15/19 22:00 11/20/19 21:59 11/17/19 05:25 Pregabalin (Lyrica) 50 mg DAILY ORAL 11/16/19 09:00 12/11/19 08:59 11/16/19 09:02 Promethazine HCl/ Codeine (Phenergan with Codeine) 5 ml Q6H PRN ORAL cough 11/15/19 18:00 12/10/19 17:59 11/16/19 02:51 Temazepam (Restoril) 15 mg HSPRN PRN ORAL Insomnia 11/16/19 21:00 11/17/19 20:59 Theophylline (Fabrice-Dur) 100 mg EVERY 12 HOURS ORAL 11/15/19 21:00 12/10/19 20:59 11/16/19 20:50 Jessica Landry [employer] Nov 17, 2019 08:27
[2019-11-17 08:33] LABS: ANION GAP 9 mmol/L (5-15); BLOOD UREA NITROGEN 31 mg/dL (7-18); CALCIUM 8.7 MG/DL (8.5-10.1); CARBON DIOXIDE 31 MMOL/L (21-32); CHLORIDE 100 MMOL/L (98-107); CREATININE 0.7 MG/DL (0.55-1.30); SODIUM 140 MMOL/L (136-145)
[2019-11-17] MEDS: Montelukast 10mg tablet ORAL SCH (08:50)
[2019-11-17] MEDS: Aspirin EC 81mg tab ORAL SCH (08:50)
[2019-11-17] MEDS: Phenytoin 100mg cap ORAL SCH ×2 (08:50→20:59)
[2019-11-17] MEDS: Theophylline ER 100mg ORAL SCH ×2 (08:50→21:01)
[2019-11-17] MEDS: Lyrica 50mg cap ORAL SCH (08:51)
[2019-11-17] MEDS: Heparin 5000 units/ml inj SUBQ SCH ×2 (08:53→21:01)
[2019-11-17] MEDS ORDERED: LORazepam Inj 2mg/ml 1ml IV PRN (09:30)
--- NOTE | 2019-11-17 10:21 | NUR ---
NURSE NOTES: Patient seen on rounds, AxOx4, with some mild shortness of breath, alleviated with rest and PRN breathing tx. Wheezing noted on bilateral lung perez. RT administered PRN nebulization. PIV on right forearm intact. AMMY Webber educated patient on risks and benefits of blood draw for diagnostics. Patient agreed and AM labs drawn. Bed on lowest position. Call light within reach. Instructed to call nurse for assistance.
--- NOTE | 2019-11-17 16:57 | Internal Med Progress Note ---
Subjective Date of Service: Nov 17, 2019 Physician Name Hank Toure Attending Physician Shlomo Garcia MD Current Medications Medications (Trade) Dose Ordered Sig/Mecca Route PRN Reason Start Time Stop Time Status Last Admin Dose Admin Al Hydroxide/Mg Hydroxide (Mylanta II) 30 ml Q6H PRN ORAL stomach pain 11/15/19 17:45 12/13/19 11:44 Albuterol/ Ipratropium (Albuterol/ Ipratropium) 3 ml Q4H PRN HHN Shortness of Breath 11/15/19 17:30 11/20/19 17:29 11/17/19 15:04 Amlodipine Besylate (Norvasc) 10 mg DAILY ORAL 11/16/19 09:00 12/11/19 08:59 11/17/19 08:52 Artificial Tears (Akwa-Tears) 1 drop BIDPRN PRN BOTH EYES Dry Eyes 11/15/19 18:00 12/15/19 17:59 11/17/19 11:06 Aspirin (Ecotrin) 81 mg DAILY ORAL 11/16/19 09:00 12/11/19 08:59 11/17/19 08:50 Atorvastatin Calcium (Lipitor) 40 mg BEDTIME ORAL 11/15/19 21:00 12/10/19 20:59 11/16/19 20:51 Azithromycin 500 mg/Dextrose 275 ml @ 275 mls/hr Q24HRS IV 11/15/19 18:00 11/20/19 18:59 11/16/19 17:44 Cetirizine HCl (ZyrTEC) 10 mg DAILYPRN PRN ORAL ITCHING 11/15/19 18:00 12/15/19 17:59 Cetylpyridinium Chloride (Cepacol) 1 lozg Q2H PRN SEDRICK For Cough 11/15/19 17:30 12/13/19 17:29 11/16/19 01:44 Clonidine HCl (Catapres Tab) 0.1 mg Q4H PRN ORAL SBP above 160 11/15/19 20:30 12/15/19 20:29 11/17/19 00:14 Clopidogrel Bisulfate (Plavix) 75 mg DAILY ORAL 11/16/19 09:00 12/11/19 08:59 11/17/19 08:52 Dextrose (Dextrose 50%) 25 ml Q30M PRN IV Hypoglycemia 11/15/19 17:00 12/10/19 15:59 Dextrose (Dextrose 50%) 50 ml Q30M PRN IV Hypoglycemia 11/15/19 17:00 12/10/19 15:59 Fluoxetine HCl (PROzac) 20 mg DAILY ORAL 11/16/19 09:00 12/11/19 08:59 11/17/19 08:50 Heparin Sodium (Porcine) (Heparin 5000 units/ml) 5,000 units EVERY 12 HOURS SUBQ 11/15/19 21:00 12/10/19 20:59 11/17/19 08:53 Lorazepam (Ativan 2mg/ml 1ml) 0.5 mg Q4H PRN IV For Anxiety 11/17/19 09:30 11/19/19 09:29 Methylprednisolone Sodium Succinate (Solu-MEDROL) 60 mg Q8H IV 11/16/19 09:00 12/16/19 08:59 11/17/19 08:50 Montelukast Sodium (Singulair) 10 mg DAILY ORAL 11/16/19 09:00 12/11/19 08:59 11/17/19 08:50 Nitroglycerin (Ntg) 0.4 mg Q5M X 3 DOSES PRN SL Prn Chest Pain 11/15/19 17:00 12/10/19 15:59 Ondansetron HCl (Zofran) 4 mg Q6H PRN IVP Nausea & Vomiting 11/15/19 17:30 12/10/19 17:29 Pantoprazole (Protonix) 40 mg EVERY 12 HOURS ORAL 11/15/19 21:00 12/13/19 20:59 11/17/19 08:51 Phenytoin (Dilantin) 100 mg Q12HR ORAL 11/15/19 21:00 12/10/19 20:59 11/17/19 08:50 Piperacillin Sod/ Tazobactam Sod 3.375 gm/Sodium Chloride 110 ml @ 27.5 mls/hr EVERY 8 HOURS IVPB 11/15/19 22:00 11/20/19 21:59 11/17/19 14:12 Pregabalin (Lyrica) 50 mg DAILY ORAL 11/16/19 09:00 12/11/19 08:59 11/17/19 08:51 Promethazine HCl/ Codeine (Phenergan with Codeine) 5 ml Q6H PRN ORAL cough 11/15/19 18:00 12/10/19 17:59 11/16/19 02:51 Temazepam (Restoril) 15 mg HSPRN PRN ORAL Insomnia 11/17/19 21:00 11/18/19 20:59 Theophylline (Fabrice-Dur) 100 mg EVERY 12 HOURS ORAL 11/15/19 21:00 12/10/19 20:59 11/17/19 08:50 Allergies: Uncoded Allergies: Canned Food (Allergy, Unknown, 03/22/18) Nausea/Vomitting/Indigestion ROS Limited/Unobtainable: No Constitutional: Reports: no symptoms HEENT: Reports: no symptoms Cardiovascular: Reports: no symptoms Respiratory: Reports: shortness of breath Gastrointestinal/Abdominal: Reports: no symptoms Genitourinary: Reports: no symptoms Neurologic/Psychiatric: Reports: no symptoms Subjective 84 YO F admitted with asthma exacerbation. Now purulent bronchitis. Cover for Int Med-Dr Garcia Objective Last Vital Signs Date Time Temp Pulse Resp B/P (MAP) Pulse Ox O2 Delivery O2 Flow Rate FiO2 11/17/19 16:00 98.0 101 19 168/84 (112) 95 11/17/19 15:14 Nasal Cannula 2.0 28 Laboratory Tests Test 11/17/19 06:40 White Blood Count 15.5 K/UL (4.8-10.8) H Red Blood Count 4.90 M/UL (4.20-5.40) Hemoglobin 15.0 G/DL (12.0-16.0) Hematocrit 43.3 % (37.0-47.0) Mean Corpuscular Volume 88 FL (80-99) Mean Corpuscular Hemoglobin 30.6 PG (27.0-31.0) Mean Corpuscular Hemoglobin Concent 34.7 G/DL (32.0-36.0) Red Cell Distribution Width 12.6 % (11.6-14.8) Platelet Count 235 K/UL (150-450) Mean Platelet Volume 6.4 FL (6.5-10.1) L Neutrophils (%) (Auto) % (45.0-75.0) Lymphocytes (%) (Auto) % (20.0-45.0) Monocytes (%) (Auto) % (1.0-10.0) Eosinophils (%) (Auto) % (0.0-3.0) Basophils (%) (Auto) % (0.0-2.0) Differential Total Cells Counted 100 Neutrophils % (Manual) 86 % (45-75) H Lymphocytes % (Manual) 12 % (20-45) L Monocytes % (Manual) 2 % (1-10) Eosinophils % (Manual) 0 % (0-3) Basophils % (Manual) 0 % (0-2) Band Neutrophils 0 % (0-8) Platelet Estimate Adequate Platelet Morphology Normal Red Blood Cell Morphology Normal Sodium Level 140 MMOL/L (136-145) Potassium Level 4.0 MMOL/L (3.5-5.1) Chloride Level 100 MMOL/L (98-107) Carbon Dioxide Level 31 MMOL/L (21-32) Anion Gap 9 mmol/L (5-15) Blood Urea Nitrogen 31 mg/dL (7-18) H Creatinine 0.7 MG/DL (0.55-1.30) Estimat Glomerular Filtration Rate > 60 mL/min (>60) Glucose Level 245 MG/DL (74-106) H Calcium Level 8.7 MG/DL (8.5-10.1) Pro-B-Type Natriuretic Peptide 130 pg/mL (0-125) H Microbiology Date/Time Source Procedure Growth Status 11/14/19 21:00 Sputum Gram Stain - Final Complete 11/14/19 21:00 Sputum Culture - Final Suha Albicans Usual Respiratory Vandana Complete Intake and Output 11/16/19 11/17/19 19:00 07:00 Intake Total 1467.5 ml 165.0 ml Balance 1467.5 ml 165.0 ml Intake Oral 1000 ml IV Total 467.5 ml 165.0 ml # Voids 5 4 Objective PHYSICAL EXAMINATION: GENERAL: The patient is a well-developed and well-nourished female, who is in moderate respiratory distress. HEENT: Eyes, pupils are equal and responsive to light and accommodation. Extraocular movements are intact. NECK: Supple without lymphadenopathy. CHEST: Decreased breath sounds at bilateral bases with expiratory wheezes. Otherwise, without rales. CARDIOVASCULAR: Regular rhythm and rate. S1, S2 are normal without murmurs, rubs, or gallops. ABDOMEN: Soft, nontender, and nondistended. Positive bowel sounds. No evidence of hepatosplenomegaly. Currently, no rebound or guarding noted. EXTREMITIES: Negative for clubbing, cyanosis, or edema. RECTAL/GENITAL: Not performed. NEUROLOGICAL: Cranial nerves II through XII are grossly intact without focal deficits. Motor strength is 5/5 bilaterally. Deep tendon reflexes are 2+ plantar. Assessment/Plan Assessment/Plan ASSESSMENT: This is an 84-year-old female. 1. Shortness of breath. 2. Hypoxia. 3. Acute asthma exacerbation. 4. Purulent bronchitis. 5. Cerebrovascular disease. 6. Hypertension. 7. Hypercholesterolemia. 8. Gastroesophageal reflux disease. 9. Seizure disorder. 10. Coronary artery disease. TREATMENT: 1. Shortness of breath/acute asthma exacerbation. A Pulmonary consultation has been obtained with Dr. Luis A Juares. The patient is currently receiving intravenous Solu-Medrol and DuoNeb every 6 hours. 2. Purulent bronchitis. ABX=Zosyn. As above, a Pulmonary consultation has been obtained with Dr. Luis A Juares. 3. Cerebrovascular disease, status post hemorrhagic stroke. 4. Hypertension. Continue Norvasc as above. 5. Hypercholesterolemia. Continue atorvastatin as above. 6. Gastroesophageal reflux disease. Continue Protonix as above. 7. Seizure disorder. Continue Dilantin as above. 8. Coronary artery disease. Continue Plavix and aspirin as above. Hank Toure MD Nov 17, 2019 16:57
[2019-11-17] MEDS: Azithromycin 500 MG in D5W 275 ML IV SCH (18:03)
--- NOTE | 2019-11-17 19:17 | NUR ---
HAND-OFF: Report given to Simran Spence RN. Patient sitting up in chair at bedside. Not in distress. Endorsed for continuity of care.
--- NOTE | 2019-11-17 19:40 | NUR ---
NURSE NOTES: patient is sitting in chair, verbally responsive. No respiratory distress noted on room air. No c/o pain or discomfort at this time. Fall precaution in place and pt refused to padded side rails. Sign on the door, bed alarm is on, bed in the lowest position and locked. call light within reach. will do frequent rounds and continue to monitor the pt
[2019-11-17] MEDS: Atorvastatin 20mg tab ORAL SCH (21:01)
[2019-11-17] MEDS: Promethazine/Codeine 5ml UD ORAL PRN (21:01)
[2019-11-18] MEDS: Solu-MEDROL 125mg Inj IV SCH ×2 (01:00→10:29)
[2019-11-18 04:00] VITALS: BP 175/92
[2019-11-18] MEDS: Piperacillin/Tazobactam 3.375 GM in NS 110 ML IVPB SCH (05:03)
--- NOTE | 2019-11-18 05:32 | NUR ---
NURSE NOTES: Rechecked Vital signs with BP of 175/92. Administered Clonidine 0.1mg as ordered with SBP>160. Will recheck BP in an hour.
--- NOTE | 2019-11-18 07:20 | NUR ---
NURSE NOTES:handoff received from AMMY Khalil. Patient is high fall risk, staff aware for increased observation of patient. Patient received sleeping in bed, no acute signs of distress noted. Bed in the low and locked position with call light within reach. IV site is clean dry and intact, running prescribed antibiotic. will continue to monitor patient.
--- NOTE | 2019-11-18 07:26 | NUR ---
HAND-OFF: Report given to AMMY Esteban.Endorsed fall risk status to oncoming shift. Bed alarm is on, sign on the door, side rails two up, call light within reach and bed in low and locked position.
[2019-11-18 08:00] VITALS: BP 157/107
--- NOTE | 2019-11-18 10:20 | NUR ---
RD ASSESSMENT & RECOMMENDATIONS SEE CARE ACTIVITY FOR COMPLETE ASSESSMENT DAILY ESTIMATED NEEDS: Needs based on cardiac, DM/ 54kg abw 25-30 kcals/kg 2944-5080 total kcals 1-1.5 g protein/kg 54-81 g total protein 25-30 mL/kg 9717-9979 total fluid mLs NUTRITION DIAGNOSIS: Altered nutrition related lab values R/T h/o DM per pt, on steroidal med and HTN as evidenced by elev BGs (245, 159), pt on Solumedrol, elev BPs, on hypotensive med. CURRENT DIET:REGULAR PO DIET RECOMMENDATIONS: LOW NA, CCHO LOW/ texture as tolerated ADDITIONAL RECOMMENDATIONS: 1) Rec to obtain a standing wt 2) Obtain HgA1C-> pt w/ elev BG, pt reports h/o DM 3) Rec NISS
[2019-11-18] MEDS: Montelukast 10mg tablet ORAL SCH (10:21)
[2019-11-18] MEDS: Theophylline ER 100mg ORAL SCH (10:21)
--- NOTE | 2019-11-18 10:23 | Diagnostic Imaging Report ---
Indication: Shortness of breath Technique: One view of the chest Comparison: 11/22/2019 Findings: There is minimal blunting of the left costophrenic sulcus. Aorta is tortuous. There is some scarring in the left lung apex. No definite acute infiltrates. Impression: Filled blunting of left costophrenic sulcus, could reflect a small amount of fluid or atelectasis. No acute process otherwise
[2019-11-18 10:28] VITALS: BP 157/107
[2019-11-18] MEDS: Phenytoin 100mg cap ORAL SCH (10:28)
[2019-11-18] MEDS: Lyrica 50mg cap ORAL SCH (10:29)
[2019-11-18] MEDS: Heparin 5000 units/ml inj SUBQ SCH (10:30)
[2019-11-18] MEDS: Aspirin EC 81mg tab ORAL SCH (10:31)
--- NOTE | 2019-11-18 11:48 | Infectious Diseases Prog Note ---
Assessment/Plan Assessment/Plan ASSESSMENT: The patient is an 84-year-old female with: Leukocytosis (the patient is on steroids). Bronchitis versus asthma exacerbation. ? Pneumonia - SCx : Suha / nl carol CT: Areas of parenchymal scarring, as described, tingling left upper lobe.There are also areas of atelectasis. Vague faint groundglass opacities are nonspecific, could represent areas of acute inflammation Afebrile. Asthma for over 30 years. History of CVA. Hypertension. Hyperlipidemia. GERD. Seizure disorder. CAD History of appendectomy. History of cardiac catheterization. PLAN: will DC AB Rx in AM Cont Zithromax # 5/5 for atypical coverage. Cont on Zosyn, day # 9/10 3 sp Diflucan day # 5 Monitor CBC. Monitor BMP. Monitor cultures (sputum) . Subjective Allergies: Uncoded Allergies: Canned Food (Allergy, Unknown, 03/22/18) Nausea/Vomitting/Indigestion Subjective on steroids has elevated WBC Objective Vital Signs Last 24 Hour Vital Signs Date Time Temp Pulse Resp B/P (MAP) Pulse Ox O2 Delivery O2 Flow Rate FiO2 11/18/19 10:28 99 157/107 11/18/19 09:00 Room Air 2.0 11/18/19 08:00 98.4 99 17 157/107 (124) 95 11/18/19 07:38 97 Nasal Cannula 2.0 28 11/18/19 07:37 97 19 98 Nasal Cannula 2.0 28 11/18/19 05:02 175/92 11/18/19 04:00 98.1 88 18 175/92 (119) 94 11/17/19 23:47 98.2 82 18 147/86 (106) 95 11/17/19 21:00 178/96 11/17/19 21:00 Room Air 2.0 11/17/19 20:00 97.7 100 19 178/96 (123) 95 11/17/19 17:07 168/84 11/17/19 16:00 98.0 101 19 168/84 (112) 95 11/17/19 15:14 92 18 100 Nasal Cannula 2.0 28 106 18 97 11/17/19 12:00 98.5 90 20 149/92 (111) 98 Height (Feet): 5 Height (Inches): 1.00 Weight (Pounds): 158 HEENT: mucous membranes moist Respiratory/Chest: respiratory distress Cardiovascular: no JVD Abdomen: no mass Current Medications Medications (Trade) Dose Ordered Sig/[place]cca Route PRN Reason Start Time Stop Time Status Last Admin Dose Admin Al Hydroxide/Mg Hydroxide (Mylanta II) 30 ml Q6H PRN ORAL stomach pain 11/15/19 17:45 12/13/19 11:44 Albuterol/ Ipratropium (Albuterol/ Ipratropium) 3 ml Q4H PRN HHN Shortness of Breath 11/15/19 17:30 11/20/19 17:29 11/17/19 15:04 Amlodipine Besylate (Norvasc) 10 mg DAILY ORAL 11/16/19 09:00 12/11/19 08:59 11/18/19 10:28 Artificial Tears (Akwa-Tears) 1 drop BIDPRN PRN BOTH EYES Dry Eyes 11/15/19 18:00 12/15/19 17:59 11/17/19 11:06 Aspirin (Ecotrin) 81 mg DAILY ORAL 11/16/19 09:00 12/11/19 08:59 11/18/19 10:31 Atorvastatin Calcium (Lipitor) 40 mg BEDTIME ORAL 11/15/19 21:00 12/10/19 20:59 11/17/19 21:01 Azithromycin 500 mg/Dextrose 275 ml @ 275 mls/hr Q24HRS IV 11/15/19 18:00 11/20/19 18:59 11/17/19 18:03 Cetirizine HCl (ZyrTEC) 10 mg DAILYPRN PRN ORAL ITCHING 11/15/19 18:00 12/15/19 17:59 Cetylpyridinium Chloride (Cepacol) 1 lozg Q2H PRN SEDRICK For Cough 11/15/19 17:30 12/13/19 17:29 11/16/19 01:44 Clonidine HCl (Catapres Tab) 0.1 mg Q4H PRN ORAL SBP above 160 11/15/19 20:30 12/15/19 20:29 11/18/19 05:02 Clopidogrel Bisulfate (Plavix) 75 mg DAILY ORAL 11/16/19 09:00 12/11/19 08:59 11/18/19 10:22 Dextrose (Dextrose 50%) 25 ml Q30M PRN IV Hypoglycemia 11/15/19 17:00 12/10/19 15:59 Dextrose (Dextrose 50%) 50 ml Q30M PRN IV Hypoglycemia 11/15/19 17:00 12/10/19 15:59 Fluoxetine HCl (PROzac) 20 mg DAILY ORAL 11/16/19 09:00 12/11/19 08:59 11/18/19 10:22 Heparin Sodium (Porcine) (Heparin 5000 units/ml) 5,000 units EVERY 12 HOURS SUBQ 11/15/19 21:00 12/10/19 20:59 11/18/19 10:30 Lorazepam (Ativan 2mg/ml 1ml) 0.5 mg Q4H PRN IV For Anxiety 11/17/19 09:30 11/19/19 09:29 Methylprednisolone Sodium Succinate (Solu-MEDROL) 60 mg Q8H IV 11/16/19 09:00 12/16/19 08:59 11/18/19 10:29 Montelukast Sodium (Singulair) 10 mg DAILY ORAL 11/16/19 09:00 12/11/19 08:59 11/18/19 10:21 Nitroglycerin (Ntg) 0.4 mg Q5M X 3 DOSES PRN SL Prn Chest Pain 11/15/19 17:00 12/10/19 15:59 Ondansetron HCl (Zofran) 4 mg Q6H PRN IVP Nausea & Vomiting 11/15/19 17:30 12/10/19 17:29 Pantoprazole (Protonix) 40 mg EVERY 12 HOURS ORAL 11/15/19 21:00 12/13/19 20:59 11/18/19 10:21 Phenytoin (Dilantin) 100 mg Q12HR ORAL 11/15/19 21:00 12/10/19 20:59 11/18/19 10:28 Piperacillin Sod/ Tazobactam Sod 3.375 gm/Sodium Chloride 110 ml @ 27.5 mls/hr EVERY 8 HOURS IVPB 11/15/19 22:00 11/20/19 21:59 11/18/19 05:03 Pregabalin (Lyrica) 50 mg DAILY ORAL 11/16/19 09:00 12/11/19 08:59 11/18/19 10:29 Promethazine HCl/ Codeine (Phenergan with Codeine) 5 ml Q6H PRN ORAL cough 11/15/19 18:00 12/10/19 17:59 11/17/19 21:01 Temazepam (Restoril) 15 mg HSPRN PRN ORAL Insomnia 11/17/19 21:00 11/18/19 20:59 Theophylline (Fabrice-Dur) 100 mg EVERY 12 HOURS ORAL 11/15/19 21:00 12/10/19 20:59 11/18/19 10:21 Murray Prado MD Nov 18, 2019 11:48
--- NOTE | 2019-11-18 13:36 | Internal Med Progress Note ---
Subjective Date of Service: Nov 18, 2019 Physician Name Hank Toure Attending Physician Shlomo Garcia MD Current Medications Medications (Trade) Dose Ordered Sig/Mecca Route PRN Reason Start Time Stop Time Status Last Admin Dose Admin Al Hydroxide/Mg Hydroxide (Mylanta II) 30 ml Q6H PRN ORAL stomach pain 11/15/19 17:45 12/13/19 11:44 Albuterol/ Ipratropium (Albuterol/ Ipratropium) 3 ml Q4H PRN HHN Shortness of Breath 11/15/19 17:30 11/20/19 17:29 11/17/19 15:04 Amlodipine Besylate (Norvasc) 10 mg DAILY ORAL 11/16/19 09:00 12/11/19 08:59 11/18/19 10:28 Artificial Tears (Akwa-Tears) 1 drop BIDPRN PRN BOTH EYES Dry Eyes 11/15/19 18:00 12/15/19 17:59 11/17/19 11:06 Aspirin (Ecotrin) 81 mg DAILY ORAL 11/16/19 09:00 12/11/19 08:59 11/18/19 10:31 Atorvastatin Calcium (Lipitor) 40 mg BEDTIME ORAL 11/15/19 21:00 12/10/19 20:59 11/17/19 21:01 Azithromycin 500 mg/Dextrose 275 ml @ 275 mls/hr Q24HRS IV 11/15/19 18:00 11/20/19 18:59 11/17/19 18:03 Cetirizine HCl (ZyrTEC) 10 mg DAILYPRN PRN ORAL ITCHING 11/15/19 18:00 12/15/19 17:59 Cetylpyridinium Chloride (Cepacol) 1 lozg Q2H PRN SEDRICK For Cough 11/15/19 17:30 12/13/19 17:29 11/16/19 01:44 Clonidine HCl (Catapres Tab) 0.1 mg Q4H PRN ORAL SBP above 160 11/15/19 20:30 12/15/19 20:29 11/18/19 05:02 Clopidogrel Bisulfate (Plavix) 75 mg DAILY ORAL 11/16/19 09:00 12/11/19 08:59 11/18/19 10:22 Dextrose (Dextrose 50%) 25 ml Q30M PRN IV Hypoglycemia 11/15/19 17:00 12/10/19 15:59 Dextrose (Dextrose 50%) 50 ml Q30M PRN IV Hypoglycemia 11/15/19 17:00 12/10/19 15:59 Fluoxetine HCl (PROzac) 20 mg DAILY ORAL 11/16/19 09:00 12/11/19 08:59 11/18/19 10:22 Heparin Sodium (Porcine) (Heparin 5000 units/ml) 5,000 units EVERY 12 HOURS SUBQ 11/15/19 21:00 12/10/19 20:59 11/18/19 10:30 Lorazepam (Ativan 2mg/ml 1ml) 0.5 mg Q4H PRN IV For Anxiety 11/17/19 09:30 11/19/19 09:29 Methylprednisolone Sodium Succinate (Solu-MEDROL) 60 mg Q8H IV 11/16/19 09:00 12/16/19 08:59 11/18/19 10:29 Montelukast Sodium (Singulair) 10 mg DAILY ORAL 11/16/19 09:00 12/11/19 08:59 11/18/19 10:21 Nitroglycerin (Ntg) 0.4 mg Q5M X 3 DOSES PRN SL Prn Chest Pain 11/15/19 17:00 12/10/19 15:59 Ondansetron HCl (Zofran) 4 mg Q6H PRN IVP Nausea & Vomiting 11/15/19 17:30 12/10/19 17:29 Pantoprazole (Protonix) 40 mg EVERY 12 HOURS ORAL 11/15/19 21:00 12/13/19 20:59 11/18/19 10:21 Phenytoin (Dilantin) 100 mg Q12HR ORAL 11/15/19 21:00 12/10/19 20:59 11/18/19 10:28 Piperacillin Sod/ Tazobactam Sod 3.375 gm/Sodium Chloride 110 ml @ 27.5 mls/hr EVERY 8 HOURS IVPB 11/15/19 22:00 11/20/19 21:59 11/18/19 05:03 Pregabalin (Lyrica) 50 mg DAILY ORAL 11/16/19 09:00 12/11/19 08:59 11/18/19 10:29 Promethazine HCl/ Codeine (Phenergan with Codeine) 5 ml Q6H PRN ORAL cough 11/15/19 18:00 12/10/19 17:59 11/17/19 21:01 Temazepam (Restoril) 15 mg HSPRN PRN ORAL Insomnia 11/17/19 21:00 11/18/19 20:59 Theophylline (Fabrice-Dur) 100 mg EVERY 12 HOURS ORAL 11/15/19 21:00 12/10/19 20:59 11/18/19 10:21 Allergies: Uncoded Allergies: Canned Food (Allergy, Unknown, 03/22/18) Nausea/Vomitting/Indigestion ROS Limited/Unobtainable: No Constitutional: Reports: no symptoms HEENT: Reports: no symptoms Cardiovascular: Reports: no symptoms Respiratory: Reports: shortness of breath Gastrointestinal/Abdominal: Reports: no symptoms Genitourinary: Reports: no symptoms Neurologic/Psychiatric: Reports: no symptoms Subjective 84 YO F admitted with asthma exacerbation. Now purulent bronchitis. Cover for Int Med-Dr Garcia Objective Last Vital Signs Date Time Temp Pulse Resp B/P (MAP) Pulse Ox O2 Delivery O2 Flow Rate FiO2 11/18/19 10:28 99 157/107 11/18/19 09:00 Room Air 2.0 11/18/19 08:00 98.4 17 95 11/18/19 07:38 28 Intake and Output 11/17/19 11/18/19 19:00 07:00 Intake Total 1025.0 ml 589.5 ml Balance 1025.0 ml 589.5 ml Intake Oral 860 ml 480 ml IV Total 165.0 ml 109.5 ml # Voids 5 3 Objective PHYSICAL EXAMINATION: GENERAL: The patient is a well-developed and well-nourished female, who is in moderate respiratory distress. HEENT: Eyes, pupils are equal and responsive to light and accommodation. Extraocular movements are intact. NECK: Supple without lymphadenopathy. CHEST: Decreased breath sounds at bilateral bases with expiratory wheezes. Otherwise, without rales. CARDIOVASCULAR: Regular rhythm and rate. S1, S2 are normal without murmurs, rubs, or gallops. ABDOMEN: Soft, nontender, and nondistended. Positive bowel sounds. No evidence of hepatosplenomegaly. Currently, no rebound or guarding noted. EXTREMITIES: Negative for clubbing, cyanosis, or edema. RECTAL/GENITAL: Not performed. NEUROLOGICAL: Cranial nerves II through XII are grossly intact without focal deficits. Motor strength is 5/5 bilaterally. Deep tendon reflexes are 2+ plantar. Assessment/Plan Assessment/Plan ASSESSMENT: This is an 84-year-old female. 1. Shortness of breath. 2. Hypoxia. 3. Acute asthma exacerbation. 4. Purulent bronchitis. 5. Cerebrovascular disease. 6. Hypertension. 7. Hypercholesterolemia. 8. Gastroesophageal reflux disease. 9. Seizure disorder. 10. Coronary artery disease. TREATMENT: 1. Shortness of breath/acute asthma exacerbation. A Pulmonary consultation has been obtained with Dr. Luis A Juares. The patient is currently receiving intravenous Solu-Medrol and DuoNeb every 6 hours. 2. Purulent bronchitis. ABX=Zosyn. As above, a Pulmonary consultation has been obtained with Dr. Luis A Juares. 3. Cerebrovascular disease, status post hemorrhagic stroke. 4. Hypertension. Continue Norvasc as above. 5. Hypercholesterolemia. Continue atorvastatin as above. 6. Gastroesophageal reflux disease. Continue Protonix as above. 7. Seizure disorder. Continue Dilantin as above. 8. Coronary artery disease. Continue Plavix and aspirin as above. Hank Toure MD Nov 18, 2019 13:36
[2019-11-18] MEDS ORDERED: MEDROL DOSEPAK4 MG ORAL (14:14)
[2019-11-18] MEDS: Albuterol/Ipratropium 3ml neb HHN PRN (15:38)
[2019-11-18] MEDS ORDERED: NS 500ML ONE (16:39)
--- NOTE | 2019-11-18 16:41 | NUR ---
NURSE NOTES:Patient discharged and left stable. IV removed, no bleeding or hematoma noted. Patient left ambulatory with walker and left in a taxi with taxi voucher provided by hospital. Patient signed discharge paperwork. Patient had new prescription for methylprednisone, printed medication information for patient and educated on adverse reactions that require immediate medical attention, also told patient to follow up with primary MD within 7 days of discharge.
--- NOTE | 2019-11-19 12:46 | Discharge Summary ---
Discharge Summary Discharge Summary _ DATE OF ADMISSION: 11/10/2019 DATE OF DISCHARGE: 11/18/2019 DISCHARGED BY: Dr Oh REASON FOR ADMISSION: 84 years old female with past medical history of asthma/COPD, hypertension, seizure disorder, hyperlipidemia, CVA, coronary artery disease, presented due to shortness of breath. Symptoms started about 7 days ago , but were getting progressively worse over the last 2 days. Patient reported worsening wheezing and chest tightness along with difficulty catching her breath. No help from breathing treatment at home. Patient as in tripod position upon arrival of paramedics. En route to the hospital she received hand-held nebulizer therapy with DuoNeb. Oxygenation improved. She reported intermittent dry cough , but no fevers. She denied chest pain. No recent traveling. After short evaluation patient was admitted for COPD/asthma exacerbation. Laboratory work-up was significant for potassium 3.4, stable other electrolytes and renal parameters. Albumin 3.5. No leukocytosis , stable hemoglobin , hematocrit and platelet count. Chest x-ray revealed mild pulmonary vascular congestion. Troponin negative. EKG revealed sinus rhythm no acute changes. nitial ABG revealed hypercapnia CO2 57 and pH 7.36 . Patient subsequently admitted for further management. CONSULTANTS: pulmonary Dr Blanquita GONZALEZ specialist Dr Prado [facility] COURSE: Patient admitted to telemetry floor. Patient started on IV steroids and empiric antibiotics. Supplemental oxygen provided and titrated to keep pulse oximetry above 92%. Bronchodilator therapy provided [id number] and as needed. Trial of theophylline instituted. Antitussive provided as needed. DVT prophylaxis provided. Troponin was negative. pro BNP 130. CT scan of the chest demonstrated calcified scaring in the left lung apex. Very faint ground-glass opacities, nonspecific ,likely representing areas of acute inflammation Sputum culture was negative. Repeated sputum culture revealed Suha and usual respiratory carol. Leukocytosis was likely reactive due to steroids. Home medication continued, included dual antiplatelet therapy with aspirin and Plavix and statin . GI prophylaxis provided. Seizure precaution maintained. No evidence of seizure activity while in the hospital. Pain management was addressed. Supportive care provided. Chest x-ray prior to discharge revealed no acute process. Patient clinically improved and was ready for discharge home . FINAL DIAGNOSES: Acute hypoxemic hypercapnic respiratory failure -resolved Acute asthma exacerbation/purulent bronchitis Allergic asthma Probably pneumonia Peripheral edema Hypertension Coronary artery disease Hypercholesterolemia GERD History of CVA Seizure disorder Chronic back pain DISCHARGE MEDICATIONS: See Medication Reconciliation list. DISCHARGE INSTRUCTIONS: Patient was discharged home. Follow-up with a primary care provider in 1 week. Jessica Landry NP Nov 19, 2019 12:46
--- NOTE | 2019-11-19 12:46 | Discharge Summary ---
Discharge Summary Hospital Course Date of Admission Nov 10, 2019 at 14:48 Date of Discharge Nov 18, 2019 at 16:40 Admitting Diagnosis asthma exacerbation HPI Megan Harmon is a 84 year old female who was admitted on Nov 10, 2019 at 14:48 for Asthma Exacerbation Discharge Discharge Vital Signs Last Vital Signs Date Time Temp Pulse Resp B/P (MAP) Pulse Ox O2 Delivery O2 Flow Rate FiO2 11/18/19 15:39 84 20 100 Nasal Cannula 3.0 32 88 22 98 11/18/19 10:28 157/107 11/18/19 08:00 98.4 Discharge Disposition Patient was discharged to Jessica Landry NP Nov 19, 2019 12:46
== END 2019-11-18 16:40 | disposition home or self-care (01) | DRG 189 ==
LOC: EDBD 14:13 → EMR 14:31 → 2E 14:48 → EDBEDREQ 18:48 → EDBEDREQSVC 18:55 → EDBEDREQ 18:58 → 2E 11-11 19:27 → 4E 11-15 16:56
DX: J96.00 Acute respiratory failure, unspecified whether with hypoxia or hypercapnia (principal); J18.9 Pneumonia, unspecified organism; J45.901 Unspecified asthma with (acute) exacerbation; J96.02 Acute respiratory failure with hypercapnia; G40.909 Epilepsy, unspecified, not intractable, without status epilepticus; J41.1 Mucopurulent chronic bronchitis; K21.9 Gastro-esophageal reflux disease without esophagitis; E78.00 Pure hypercholesterolemia, unspecified; I25.10 Atherosclerotic heart disease of native coronary artery without angina pectoris; I10 Essential (primary) hypertension; Z86.73 Personal history of transient ischemic attack (TIA), and cerebral infarction without residual deficits; G89.29 Other chronic pain; M54.9 Dorsalgia, unspecified
CPT/HCPCS: 36415; 36600; 71045; 71250; 80048; 80053; 82803; 83735; 83880; 84100; 84484; 85007; 85025; 85651; 86140; 87070; 87081; 87205; 93005; 94640; 94664; 96365; 96368; 96375; 99285; J7620; J8499

== ENCOUNTER 2019-12-21 15:53 | Inpatient (IN) | payer MEDICARE, MEDICAID ==
[~2019-12-21] VITALS: Ht 162.6 cm; Wt 68.9 kg
[~2019-12-21 15:53] MED LIST changes: +ALBUTEROL2.5 MG/3 M INH; +AMLODIPINE BES2.5 MG ORAL; +DOCUSATE SODIU100 MG ORAL; +FLUTICASONE PRO16 G1 NASAL; +FUROSEMIDE40 MG ORAL; +ISOSORBIDE MONO30 M1 PO; +LOSARTAN POTAS100 MG ORAL; +TRADJENTA5 MG PO
[2019-12-21] MEDS ORDERED: Albuterol 90mcg Inhaler 8gm INH ONE (16:00)
--- NOTE | 2019-12-21 16:02 | Emergency Room Report ---
History of Present Illness General Chief Complaint: Dyspnea/Respdistress Source: Patient Present Illness HPI 84-year-old female history of hypertension, asthma exacerbation, presents with acute shortness of breath, patient hit her head after falling forward no neck pain, she endorses headache, no aggravating relieving factor severity is moderate, intermittent, patient also reports shortness of breath that has been ongoing for a few days acutely worsening today, patient used breathing treatments which helped however she continued to be short of breath, no cough no congestion no fevers no chills, no aggravating factors severity is moderate, constant patient received breathing treatments by EMS in route which helped her Allergies: Uncoded Allergies: Canned Food (Allergy, Unknown, 03/22/18) Nausea/Vomitting/Indigestion COVID-19 Screening Contact w/high risk pt: No Recent Travel to affected area: No Experienced COVID-19 symptoms?: Yes COVID-19 symptoms experienced: Shortness of Breath Patient History Past Medical History: see triage record Now: No Reviewed Nursing Documentation: PMH: Agreed; PSxH: Agreed Nursing Documentation-PMH Past Medical History: No History, Except For Hx Cardiac Problems: Yes Hx Hypertension: Yes Hx Asthma: Yes Hx COPD: Yes Hx Diabetes: Yes Hx Cancer: No Hx Gastrointestinal Problems: Yes Hx Neurological Problems: Yes Hx Cerebrovascular Accident: Yes Hx Transient Ischemic Attacks: Yes Hx Seizures: Yes Hx Epilepsy: Yes Review of Systems All Other Systems: negative except mentioned in HPI Physical Exam Vital Signs Date Time Temp Pulse Resp B/P (MAP) Pulse Ox O2 Delivery O2 Flow Rate FiO2 12/21/19 15:48 99.1 84 17 190/110 (136) 97 Room Air Sp02 EP Interpretation: reviewed, abnormal - Reduced O2 sat General Appearance: alert, mild distress Head: normocephalic, other - Abrasion right superior head Eyes: bilateral eye PERRL, bilateral eye EOMI ENT: uvula midline, moist mucus membranes Neck: supple, thyroid normal, supple/symm/no masses Respiratory: no respiratory distress, no retraction, no accessory muscle use, wheezing - Moderate Cardiovascular #1: normal peripheral pulses, regular rate, rhythm, no edema, no gallop, no murmur Gastrointestinal: non tender, soft, no guarding, no rebound Musculoskeletal: normal inspection Neurologic: alert, oriented x3 Psychiatric: mood/affect normal Skin: no rash, warm/dry Medical Decision Making Diagnostic Impression: Primary Impression: Acute asthma exacerbation Qualified Codes: J45.41 - Moderate persistent asthma with (acute) exacerbation ER Course 84-year-old female multiple comorbidities presents with acute shortness of breath, differential diagnosis includes pneumonia, COVID, asthma exacerbation, will start albuterol, will provide patient with prednisone, patient will be admitted to the hospital for management of acute asthma exacerbation Patient also given gentle bolus of fluids, We will also obtain CT head to evaluate for any fracture or intracranial bleed due to patient having fallen forward mechanically CT head negative, x-ray shows a chronic pleural effusion, patient did well with albuterol treatment as well as prednisone Reevaluation 5:45 PM patient wants leave AGAINST MEDICAL ADVICE aware of the risks and consequences patient signed AGAINST MEDICAL ADVICE The patient has requested to leave the ED against medical advice. The patient reason(s) for leaving include, but are not limited to, the following: I want to go home. I believe this patient is of sound mind and competent to refuse medical care. The patient is responding and asking questions appropriately. The patient is oriented to person, place and time. The patient is not psychotic, delusional, suicidal, homicidal or hallucinating. The patient demonstrates a normal mental capacity to make decisions regarding their healthcare. The patient is clinically sober and does not appear to be under the influence of any illicit drugs at this time. The patient has been advised of the risks, in layman terms, of leaving AMA which include, but are not limited to , coma, permanent disability, loss of current lifestyle, delay in diagnosis. Alternatives have been offered - the patient remains steadfast in their wish to leave. The patient has been advised that should they change their mind they are welcome to return to this hospital, or any other, at any time. The patient understands that in no way does an AMA discharge mean that I do not want them to have the best medical care available. To this end, I have provided appropriate prescriptions, referrals, and discharge instructions. The patient did sign AMA paperwork. The above discussion was witnessed by another member of staff. Laboratory Tests Test 12/21/19 16:00 White Blood Count 7.7 K/UL (4.8-10.8) Red Blood Count 4.31 M/UL (4.20-5.40) Hemoglobin 13.4 G/DL (12.0-16.0) Hematocrit 39.5 % (37.0-47.0) Mean Corpuscular Volume 92 FL (80-99) Mean Corpuscular Hemoglobin 31.1 PG (27.0-31.0) H Mean Corpuscular Hemoglobin Concent 33.9 G/DL (32.0-36.0) Red Cell Distribution Width 14.2 % (11.6-14.8) Platelet Count 231 K/UL (150-450) Mean Platelet Volume 7.7 FL (6.5-10.1) Neutrophils (%) (Auto) 58.9 % (45.0-75.0) Lymphocytes (%) (Auto) 27.9 % (20.0-45.0) Monocytes (%) (Auto) 8.3 % (1.0-10.0) Eosinophils (%) (Auto) 4.1 % (0.0-3.0) H Basophils (%) (Auto) 0.9 % (0.0-2.0) Prothrombin Time 9.8 SEC (9.30-11.50) Prothrombin Time INR 0.9 (0.9-1.1) Activated Partial Thromboplast Time 24 SEC (23-33) Sodium Level 147 MMOL/L (136-145) H Potassium Level 3.3 MMOL/L (3.5-5.1) L Chloride Level 105 MMOL/L (98-107) Carbon Dioxide Level 32 MMOL/L (21-32) Anion Gap 10 mmol/L (5-15) Blood Urea Nitrogen 14 mg/dL (7-18) Creatinine 1.0 MG/DL (0.55-1.30) Estimated Glomerular Filtration Rate 52.5 mL/min (>60) Glucose Level 99 MG/DL (74-106) Calcium Level 9.1 MG/DL (8.5-10.1) Total Bilirubin 0.3 MG/DL (0.2-1.0) Aspartate Amino Transferase (AST) 14 U/L (15-37) L Alanine Aminotransferase (ALT) 24 U/L (12-78) Alkaline Phosphatase 115 U/L (46-116) Troponin I 0.000 ng/mL (0.000-0.056) Pro-B-Type Natriuretic Peptide Pending Total Protein 7.8 G/DL (6.4-8.2) Albumin 3.9 G/DL (3.4-5.0) Globulin 3.9 g/dL Albumin/Globulin Ratio 1.0 (1.0-2.7) EKG Diagnostic Results EKG Time: 16:08 EP Interpretation: NSR, rate 88, QTc 457, no acute ST elevations, normal axis Rhythm Strip Diag. Results Rhythm Strip Time: 16:02 EP Interpretation: yes Rate: 82 Rhythm: NSR, no PVC's, no ectopy Chest X-Ray Diagnostic Results Chest X-Ray Diagnostic Results : Chest X-Ray Ordered: Yes # of Views/Limited/Complete: 1 View Indication: Shortness of Breath EP Interpretation: Yes Interpretation: other - Chronic blunting left costophrenic angle no acute changes Impression: Other - Chronic blunting left costophrenic angle no acute changes Electronically Signed by: Horcaio Davis MD CT/MRI/US Diagnostic Results CT/MRI/US Diagnostic Results : Impression Final Report EXAM: CT Head Without Intravenous Contrast CLINICAL HISTORY: PAIN TECHNIQUE: Axial computed tomography images of the head/brain without intravenous contrast. CTDI is 53.4 mGy and DLP is 1045.5 mGy-cm. One or more of the following dose reduction techniques were used: automated exposure control, adjustment of the mA and/or kV according to patient size, use of iterative reconstruction technique. COMPARISON: Head CT 12/04/2018 FINDINGS: Brain: No intracranial hemorrhage, mass-effect, or edema. Age-related volume loss. Mild chronic microvascular ischemic changes. No acute cortical infarct. Bones/joints: Unremarkable. No acute fracture. Soft tissues: Unremarkable. Sinuses: Unremarkable as visualized. Mastoid air cells: Unremarkable as visualized. No mastoid effusion. IMPRESSION: 1. No acute intracranial abnormality. 2. Parenchymal volume loss and mild chronic microvascular ischemic changes. Radiologist: Ezequiel Rosenthal MD Electronically Signed: 12/21/19 17:43 Study ready at 17:35 and initial results transmitted at 17:43 Last Vital Signs Date Time Temp Pulse Resp B/P (MAP) Pulse Ox O2 Delivery O2 Flow Rate FiO2 12/21/19 15:48 99.1 84 17 190/110 (136) 97 Room Air Disposition: AGAINST MEDICAL ADVICE Condition: Stable Scripts Albuterol Sulfate* (Albuterol Sulfate Hfa*) 8.5 Gm Hfa.aer.ad 4 PUFF INH Q4H PRN for Shortness of Breath, #1 INH Prov: Horacio Davis MD 12/21/19 Prednisone* (PREDNISONE*) 50 Mg Tablet 50 MG ORAL DAILY, #4 TAB 0 Refills Prov: Horacio Davis MD 12/21/19 Referrals: [facility] Yonatan Meier [facility]. [facility] Patient Instructions: Asthma, Adult, [id number] Additional Instructions: The patient was provided with discharge instructions, notified to follow-up with a primary care doctor and or specialist in the next 24-48 hours, and to return to the ED if they have worsening of their symptoms. Please note that this report is being documented using [employer] technology. This can lead to erroneous entry secondary to incorrect interpretation by the dictating instrument. Horacio Davis MD Dec 21, 2019 16:02
[2019-12-21 16:25] LABS: BASOPHILS % (AUTO) 0.9 % (0.0-2.0); EOSINOPHILS % (AUTO) 4.1 % (0.0-3.0); HEMATOCRIT 39.5 % (37.0-47.0); HEMOGLOBIN 13.4 G/DL (12.0-16.0); LYMPHOCYTES % (AUTO) 27.9 % (20.0-45.0); MEAN CORPUSCULAR VOLUME 92 FL (80-99); MONOCYTES % (AUTO) 8.3 % (1.0-10.0); NEUTROPHILS % (AUTO) 58.9 % (45.0-75.0); PLATELET COUNT 231 K/UL (150-450); RED BLOOD COUNT 4.31 M/UL (4.20-5.40); RED CELL DISTRIBUTION WIDTH 14.2 % (11.6-14.8); WHITE BLOOD COUNT 7.7 K/UL (4.8-10.8)
[2019-12-21 16:34] VITALS: BP 190/110
[2019-12-21 16:42] LABS: INR 0.9 (0.9-1.1)
[2019-12-21 16:47] LABS: ANION GAP 10 mmol/L (5-15); BLOOD UREA NITROGEN 14 mg/dL (7-18); CALCIUM 9.1 MG/DL (8.5-10.1); CARBON DIOXIDE 32 MMOL/L (21-32); CHLORIDE 105 MMOL/L (98-107); POTASSIUM 3.3 MMOL/L (3.5-5.1); SODIUM 147 MMOL/L (136-145)
[2019-12-21 17:15] LABS: ALANINE AMINOTRANSFERASE 24 U/L (12-78); ALBUMIN 3.9 G/DL (3.4-5.0); ALKALINE PHOSPHATASE 115 U/L (46-116); ASPARTATE AMINO TRANSFERASE 14 U/L (15-37); BILIRUBIN,TOTAL 0.3 MG/DL (0.2-1.0)
[2019-12-21 17:25] VITALS: BP 179/84
--- NOTE | 2019-12-21 17:44 | Diagnostic Imaging Report ---
EXAM: CT Head Without Intravenous Contrast CLINICAL HISTORY: PAIN TECHNIQUE: Axial computed tomography images of the head/brain without intravenous contrast. CTDI is 53.4 mGy and DLP is 1045.5 mGy-cm. One or more of the following dose reduction techniques were used: automated exposure control, adjustment of the mA and/or kV according to patient size, use of iterative reconstruction technique. COMPARISON: Head CT 12/04/2018 FINDINGS: Brain: No intracranial hemorrhage, mass-effect, or edema. Age-related volume loss. Mild chronic microvascular ischemic changes. No acute cortical infarct. Bones/joints: Unremarkable. No acute fracture. Soft tissues: Unremarkable. Sinuses: Unremarkable as visualized. Mastoid air cells: Unremarkable as visualized. No mastoid effusion. IMPRESSION: 1. No acute intracranial abnormality. 2. Parenchymal volume loss and mild chronic microvascular ischemic changes.
[2019-12-21] MEDS ORDERED: PREDNISONE50 MG ORAL (17:46)
[2019-12-21] MEDS ORDERED: ALBUTEROL SULF8.5 G1 INH (17:46)
--- NOTE | 2019-12-21 18:18 | Diagnostic Imaging Report ---
EXAM: XR Chest, 1 View CLINICAL HISTORY: SOB TECHNIQUE: Frontal view of the chest. COMPARISON: 11/18/2019 FINDINGS: Lungs: Left basilar atelectasis versus infiltrate. Scarring at the left lung apex. Pleural space: Small left pleural effusion. Heart: Mildly prominent heart. IMPRESSION: 1. Small left pleural effusion. 2. Left basilar atelectasis versus infiltrate.
[2019-12-21] MEDS ORDERED: Promethazine/Codeine 5ml UD ORAL PRN (18:45)
[2019-12-21] MEDS ORDERED: Nitroglycerin Subl 0.4mg tab SL PRN (18:45)
[2019-12-21] MEDS ORDERED: LORazepam Inj 2mg/ml 1ml IV PRN (18:45)
[2019-12-21] MEDS ORDERED: Albuterol/Ipratropium 3ml neb HHN PRN (18:45)
[2019-12-21 19:45] VITALS: BP 166/72
[2019-12-21] MEDS: Atorvastatin 80mg tab ORAL SCH (21:27)
[2019-12-21] MEDS: Theophylline ER 100mg ORAL SCH (21:28)
[2019-12-21] MEDS: Piperacillin/Tazobactam 2.25 GM in D5W 55 ML IV SCH (21:28)
[2019-12-21] MEDS: Heparin 5000 units/ml inj SUBQ SCH (22:09)
[2019-12-21] MEDS: NovoLOG Insulin Flexpen SUBQ SCH (22:10)
[2019-12-22] VITALS: BP 147/96
[2019-12-22] MEDS: Solu-MEDROL 125mg Inj IV SCH ×5 (00:11→23:18)
[2019-12-22 04:00] VITALS: BP 135/63
[2019-12-22] MEDS: Piperacillin/Tazobactam 2.25 GM in D5W 55 ML IV SCH (05:40)
[2019-12-22] MEDS: NovoLOG Insulin Flexpen SUBQ SCH ×5 (06:30→21:42)
[2019-12-22 08:00] VITALS: BP 167/74
[2019-12-22] MEDS: Phenytoin 100mg cap ORAL SCH ×3 (08:38→17:15)
[2019-12-22] MEDS: Furosemide 40mg tab ORAL SCH (08:38)
[2019-12-22] MEDS: Aspirin EC 81mg tab ORAL SCH (08:38)
[2019-12-22] MEDS: Losartan 50mg tab ORAL SCH (08:38)
[2019-12-22] MEDS: Theophylline ER 100mg ORAL SCH ×2 (08:38→21:23)
[2019-12-22] MEDS: Lyrica 50mg cap ORAL SCH (08:39)
[2019-12-22] MEDS: Heparin 5000 units/ml inj SUBQ SCH ×2 (08:40→21:29)
--- NOTE | 2019-12-22 09:14 | Consultation ---
History of Present Illness General Date patient seen: Dec 22, 2019 Time patient seen: 08:00 Chief Complaint: Dyspnea/Respdistress Referring physician: Dr Garcia Reason for Consultation: asthma exacerbation Present Illness HPI 84-year-old female medical history of asthma/COPD, hypertension, coronary artery disease status post stent placement, hyperlipidemia, CVA, diabetes mellitus, seizure disorder, DNR/DNI status, presented after hitting her head 2 to falling forward . Denies neck pain, but reported headache, moderate, intermittent. She denies loss of consciousness or blackout. She denies seizure episode. Patient also reported shortness of breath ongoing for few days acutely, worsening for the last day. She tried breathing treatments which helped , however she continued to be short of breath and wheezing. No cough , no congestion No fevers or chills, On evaluation patient was afebrile. CT of the head revealed no acute intracranial pathology. Laboratory work-up revealed no leukocytosis , potassium 3.3. Chest x-ray revealed left base atelectasis , possible pneumonia Patient initially wanted to sign AMA but then decided to stay . Pulmonology consult was requested to assist in respiratory management of this patient. Allergies: Uncoded Allergies: Canned Food (Allergy, Unknown, 03/22/18) Nausea/Vomitting/Indigestion Medication History Scheduled Amlodipine Besylate* (Amlodipine Besylate*), 2.5 MG ORAL DAILY, (Reported) Aspirin (Aspirin EC), 81 MG ORAL DAILY, (Reported) Atorvastatin Calcium* (Atorvastatin Calcium*), 40 MG ORAL BEDTIME, (Reported) Clopidogrel* (Clopidogrel*), 75 MG ORAL DAILY, (Reported) Furosemide* (Lasix*), 40 MG ORAL DAILY, (Reported) Isosorbide Mononitrate (Isosorbide Mononitrate Er), 30 MG PO DAILY, (Reported) Levocetirizine Dihydrochloride (Levocetirizine Dihydrochloride), 5 MG ORAL DAILY , (Reported) Linagliptin (Tradjenta), 5 MG PO QD, (Reported) Losartan Potassium (Losartan Potassium), 100 MG ORAL DAILY, (Reported) Montelukast Sodium* (Montelukast Sodium*), 10 MG ORAL DAILY, (Reported) Phenytoin Sodium Extended* (Phenytoin Sodium Extended*), 100 MG ORAL TID, ( Reported) Prednisone* (Prednisone*), 50 MG ORAL DAILY Pregabalin (Lyrica), 50 MG ORAL DAILY, (Reported) Scheduled PRN Albuterol Sulfate (Ventolin Hfa), 2 PUFFS INH EVERY 6 HOURS PRN for Shortness of Breath, (Reported) Albuterol Sulfate* (Albuterol Sulfate Hfa*), 4 PUFF INH Q4H PRN for Shortness of Breath Discontinued Medications Albuterol Sulfate* (Albuterol Sulfate Hhn*), 3 ML INH Q6H PRN for Shortness of Breath, (Reported) Discontinued Reason: Pt stopped taking med Dexlansoprazole (Dexilant), 60 MG ORAL DAILY, (Reported) Discontinued Reason: Pt stopped taking med Docusate Sodium* (Docusate Sodium*), 100 MG ORAL TWICE A DAY, (Reported) Discontinued Reason: Pt stopped taking med Fluticasone Propionate* (Fluticasone Propionate*), 1 SPRAY NASAL DAILY, ( Reported) Discontinued Reason: Pt stopped taking med Lipase/Protease/Amylase (Creon Dr 36,000 Units Capsule), 1 EACH PO TID, ( Reported) Discontinued Reason: Pt stopped taking med Methylprednisolone (Methylprednisolone*), 4 MG ORAL DIRECTED Discontinued Reason: Pt stopped taking med Patient History Healthcare decision maker Resuscitation status Do Not Resuscitate Advanced Directive on File Past Medical/Surgical History Past Medical/Surgical History: (1) Seizure disorder (2) Hemorrhagic stroke (3) Allergic asthma (4) GERD (gastroesophageal reflux disease) (5) Asthma exacerbation (6) CAD (coronary artery disease) (7) Herpes zoster (8) Chronic back pain (9) HTN (hypertension) (10) Acute respiratory failure Review of Systems Constitutional: Reports: weakness Eye: Reports: no symptoms ENT: Reports: no symptoms Respiratory: Reports: see HPI Cardiovascular: Reports: other - slight pedal edema Gastrointestinal: Reports: no symptoms Genitourinary: Reports: no symptoms Musculoskeletal: Reports: back pain - chronic Skin: Reports: no symptoms Psychiatric: Reports: no symptoms Neurological: Reports: other - seizure disorder, hx of hemorrhagic CVA Endocrine: Reports: other - hx of DM Hematologic/Lymphatic: Reports: no symptoms Physical Exam General Appearance: alert, other - mild respiratory distress Lines, tubes and drains: peripheral HEENT: normocephalic, atraumatic, mucous membranes moist Neck: supple Respiratory/Chest: no accessory muscle use, expiratory wheezing - diffused , other - mild resp distress Cardiovascular/Chest: normal peripheral pulses, no JVD, other - trace to + 1 edema BLE Abdomen: normal bowel sounds, non tender, soft Extremities: no calf tenderness, normal capillary refill Skin Exam: warm/dry Neurologic: alert, responsive, normal mood/affect, other - moves all extremities Musculoskeletal: atrophy - BLE Last 24 Hour Vital Signs Date Time Temp Pulse Resp B/P (MAP) Pulse Ox O2 Delivery O2 Flow Rate FiO2 12/22/19 08:38 167/74 12/22/19 08:38 102 167/74 12/22/19 08:00 98.2 102 20 167/74 (105) 96 12/22/19 04:00 98.1 90 18 135/63 (87) 97 12/22/19 04:00 2.0 12/22/19 04:00 79 12/22/19 00:04 Room Air 12/22/19 00:00 90 12/22/19 00:00 97.5 91 18 147/96 (113) 97 12/21/19 20:30 98.3 96 26 166/72 94 Room Air 12/21/19 19:45 98.3 96 26 166/72 94 Room Air 12/21/19 17:25 98.3 83 22 179/84 94 Room Air 12/21/19 16:34 99.1 91 17 190/110 97 Room Air 12/21/19 16:34 91 23 Room Air 12/21/19 15:48 99.1 84 17 190/110 (136) 97 Room Air Intake and Output 12/21/19 12/22/19 19:00 07:00 Intake Total 0 ml 240 ml Balance 0 ml 240 ml Intake Oral 0 ml 240 ml # Voids 2 Laboratory Tests Test 12/21/19 16:00 White Blood Count 7.7 K/UL (4.8-10.8) Red Blood Count 4.31 M/UL (4.20-5.40) Hemoglobin 13.4 G/DL (12.0-16.0) Hematocrit 39.5 % (37.0-47.0) Mean Corpuscular Volume 92 FL (80-99) Mean Corpuscular Hemoglobin 31.1 PG (27.0-31.0) H Mean Corpuscular Hemoglobin Concent 33.9 G/DL (32.0-36.0) Red Cell Distribution Width 14.2 % (11.6-14.8) Platelet Count 231 K/UL (150-450) Mean Platelet Volume 7.7 FL (6.5-10.1) Neutrophils (%) (Auto) 58.9 % (45.0-75.0) Lymphocytes (%) (Auto) 27.9 % (20.0-45.0) Monocytes (%) (Auto) 8.3 % (1.0-10.0) Eosinophils (%) (Auto) 4.1 % (0.0-3.0) H Basophils (%) (Auto) 0.9 % (0.0-2.0) Prothrombin Time 9.8 SEC (9.30-11.50) Prothromb Time International Ratio 0.9 (0.9-1.1) Activated Partial Thromboplast Time 24 SEC (23-33) Sodium Level 147 MMOL/L (136-145) H Potassium Level 3.3 MMOL/L (3.5-5.1) L Chloride Level 105 MMOL/L (98-107) Carbon Dioxide Level 32 MMOL/L (21-32) Anion Gap 10 mmol/L (5-15) Blood Urea Nitrogen 14 mg/dL (7-18) Creatinine 1.0 MG/DL (0.55-1.30) Estimat Glomerular Filtration Rate 52.5 mL/min (>60) Glucose Level 99 MG/DL (74-106) Calcium Level 9.1 MG/DL (8.5-10.1) Total Bilirubin 0.3 MG/DL (0.2-1.0) Aspartate Amino Transf (AST/SGOT) 14 U/L (15-37) L Alanine Aminotransferase (ALT/SGPT) 24 U/L (12-78) Alkaline Phosphatase 115 U/L (46-116) Troponin I 0.000 ng/mL (0.000-0.056) Pro-B-Type Natriuretic Peptide pg/mL (0-125) Total Protein 7.8 G/DL (6.4-8.2) Albumin 3.9 G/DL (3.4-5.0) Globulin 3.9 g/dL Albumin/Globulin Ratio 1.0 (1.0-2.7) Height (Feet): 5 Height (Inches): 4.00 Weight (Pounds): 152 Medications Current Medications Medications (Trade) Dose Ordered Sig/[place] Route PRN Reason Start Time Stop Time Status Last Admin Dose Admin Albuterol/ Ipratropium (Albuterol/ Ipratropium) 3 ml EVERY 4 HOURS PRN HHN dyspnea 12/21/19 18:45 12/26/19 18:44 Amlodipine Besylate (Norvasc) 2.5 mg DAILY ORAL 12/22/19 09:00 01/21/20 08:59 12/22/19 08:38 Aspirin (Ecotrin) 81 mg DAILY ORAL 12/22/19 09:00 02/05/20 08:59 12/22/19 08:38 Atorvastatin Calcium (Lipitor) 40 mg BEDTIME ORAL 12/21/19 21:00 03/20/20 20:59 12/21/19 21:27 Clopidogrel Bisulfate (Plavix) 75 mg DAILY ORAL 12/22/19 09:00 01/21/20 08:59 12/22/19 08:39 Dextrose (Dextrose 50%) 25 ml Q30M PRN IV Hypoglycemia 12/21/19 18:45 03/20/20 18:44 Dextrose (Dextrose 50%) 50 ml Q30M PRN IV Hypoglycemia 12/21/19 18:45 03/20/20 18:44 Furosemide (Lasix) 40 mg DAILY ORAL 12/22/19 09:00 01/21/20 08:59 12/22/19 08:38 Heparin Sodium (Porcine) (Heparin 5000 units/ml) 5,000 units EVERY 12 HOURS SUBQ 12/21/19 21:00 02/04/20 20:59 12/22/19 08:40 Insulin Aspart (NovoLOG) BEFORE MEALS AND HS SUBQ 12/21/19 21:00 03/20/20 20:59 12/21/19 22:10 Lorazepam (Ativan 2mg/ml 1ml) 0.5 mg Q4H PRN IV For Anxiety 12/21/19 18:45 12/28/19 18:44 Losartan Potassium (Cozaar) 100 mg DAILY ORAL 12/22/19 09:00 01/21/20 08:59 12/22/19 08:38 Methylprednisolone Sodium Succinate (Solu-MEDROL) 60 mg EVERY 6 HOURS IV 12/22/19 00:00 03/21/20 00:00 12/22/19 05:41 Nitroglycerin (Ntg) 0.4 mg Q5M X 3 DOSES PRN SL Prn Chest Pain 12/21/19 18:45 01/20/20 18:44 Ondansetron HCl (Zofran) 4 mg Q6H PRN IVP Nausea & Vomiting 12/21/19 18:45 01/20/20 18:44 Phenytoin (Dilantin) 100 mg TID ORAL 12/22/19 09:00 01/21/20 08:59 12/22/19 08:38 Piperacillin Sod/ Tazobactam Sod 2.25 gm/Dextrose 55 ml @ 110 mls/hr EVERY 8 HOURS IV 12/21/19 22:00 12/26/19 21:59 12/22/19 05:40 Pregabalin (Lyrica) 50 mg DAILY ORAL 12/22/19 09:00 01/21/20 08:59 12/22/19 08:39 Promethazine HCl/ Codeine (Phenergan with Codeine) 5 ml EVERY 6 HOURS PRN ORAL cough 12/21/19 18:45 01/20/20 18:44 Temazepam (Restoril) 15 mg HSPRN PRN ORAL Insomnia 12/21/19 21:00 12/28/19 20:59 Theophylline (Fabrice-Dur) 100 mg EVERY 12 HOURS ORAL 12/21/19 21:00 03/20/20 20:59 12/22/19 08:38 Assessment/Plan Assessment/Plan: ASSESSMENT Asthma/COPD exacerbation Possible pneumonia Headache 2 to head ijury due to fall -resolved Hypokalemia Hypertension CAD status post stent placement HLD DM History of CVA Seizure disorder PLAN OF CARE tele O2 titrate HHN steroids and taper fast empiric abx sputum cx if able to collect trial of theophylline a/tussive prn fup with CXR BP management with current regimen of CCB and ARB dAPT therapy and statin continue Lasix with close monitoring of volumes , lytes and renal parameters DVT and GI prophylaxis BS management with SSI seizure precautions, continue Dilantin replace K case discussed and evaluated by supervising physician Jessica Landry NP Dec 22, 2019 09:14
[2019-12-22 12:00] VITALS: BP 155/80
[2019-12-22] MEDS: Piperacillin/Tazobactam 3.375 GM in NS 110 ML IVPB SCH ×2 (13:01→21:23)
--- NOTE | 2019-12-22 13:59 | History & Physical ---
History and Physical History & Physicial Dictated for Int Med-Dr Garcia no. [id number]. Hank Toure MD Dec 22, 2019 13:59
[2019-12-22] MEDS ORDERED: Magnesium Citrate Liq Btl ORAL SCH (14:30)
[2019-12-22 16:00] VITALS: BP 147/70
[2019-12-22] MEDS: Docusate 100mg cap ORAL SCH (17:15)
--- NOTE | 2019-12-22 18:44 | History and Physical Report ---
DATE OF ADMISSION: 12/21/2019 CHIEF COMPLAINT: The patient is an 84-year-old female who presents with a chief complaint of shortness of breath and fall injury. HISTORY OF PRESENT ILLNESS: The patient states she began to get headache about 5 days ago. The patient has a history of asthma. The patient began to experience shortness of breath yesterday. The patient states she fell striking her head yesterday. The patient called 911. The patient presented to [place] emergency room. The patient was admitted with closed head injury and shortness of breath to rule out COVID-19. REVIEW OF SYSTEMS: CONSTITUTIONAL: The patient denies weight loss or weight gain. The patient denies fevers . HEENT: The patient complains of headache secondary to fall injury. The patient denies seizures. CHEST: The patient complains of wheezes and shortness of breath as above. The patient denies cough. ABDOMEN: The patient denies nausea, vomiting, diarrhea, or constipation. CARDIOVASCULAR: The patient denies palpitations or chest pain. GENITOURINARY: The patient denies dysuria or increased frequency of urination. NEUROMUSCULAR: The patient denies seizures. NEUROMUSCULAR: The patient has a history of seizure disorder. The patient denies generalized weakness. PAST MEDICAL HISTORY: Significant. 1. Asthma. 2. History of hemorrhagic cerebrovascular accident. 3. Hypertension. 4. Hypercholesterolemia. 5. Gastroesophageal reflux disease. 6. Seizure disorder. 7. Coronary artery disease, status post stent placement in November of 2017. PAST SURGICAL HISTORY: Significant for: 1. Appendectomy. 2. Cardiac catheterization November 2017 with stent placement. CURRENT MEDICATIONS: 1. Albuterol metered-dose inhaler two puffs p.o. q.6 hours p.r.n. 2. Amlodipine 2.5 mg p.o. daily. 3. Aspirin 81 mg one tablet p.o. daily. 4. Atorvastatin 40 mg p.o. at bedtime. 5. Clopidogrel 75 mg p.o. daily. 6. Lasix 40 mg p.o. daily. 7. Isosorbide mononitrate 30 mg p.o. daily. 8. Zyrtec 5 mg p.o. daily. 9. Tradjenta 5 mg p.o. daily. 10. Losartan 100 mg p.o. daily. 11. Singulair 10 mg p.o. at bedtime. 12. Dilantin 100 mg p.o. three times daily. 13. Prednisone 50 mg p.o. daily. 14. Lyrica 50 mg p.o. daily. ALLERGIES: No known drug allergies. SOCIAL HISTORY: The patient is single. Lives alone. The patient denies alcohol or tobacco use. PHYSICAL EXAMINATION: VITAL SIGNS: Temperature 99.1, respirations 17, pulse 84, blood pressure 190/110. Pulse ox was 97% on room air. GENERAL: The patient is well-developed and well-nourished female, in no apparent distress. HEENT: Eyes pupils equal and responsive to light and accommodation. Extraocular movements are intact. NECK: Supple without lymphadenopathy. CHEST: Lungs are clear to auscultation bilaterally without wheezes or rales. CARDIOVASCULAR: Regular rate. S1 and S2 are normal without murmurs, rubs, or gallops. ABDOMEN: Soft, nontender, and nondistended. Positive bowel sounds. No evidence of hepatosplenomegaly. Currently, no rebound or guarding noted. EXTREMITIES: Negative for clubbing, cyanosis, or edema. RECTAL/GENITAL: Not performed. NEUROLOGIC: Cranial nerves II through XII are grossly intact without focal deficits. Motor strength is 5/5 bilaterally. Deep tendon reflexes are 2+ plantar. LABORATORY STUDIES: WBC 7.7, hemoglobin 13.4, hematocrit 39.5, platelets 231,000. Sodium 147, potassium 3.3, chloride 105, CO2 32, BUN 14, creatinine 1.0, glucose 99. Troponin 0.0. A chest x-ray was reported as small left pleural effusion with left basilar atelectasis versus infiltrate. CT scan of the head was reported as no acute hemorrhage or mass. ASSESSMENT: This is an 84-year-old female. 1. Shortness of breath. 2. Closed head injury. 3. Left basilar atelectasis versus pneumonia. 4. Constipation. 5. Acute asthma exacerbation. 6. Purulent bronchitis. 7. Cerebrovascular disease. 8. Hypertension. 9. Hypercholesterolemia. 10. Gastroesophageal reflux disease. 11. History of seizure disorder. 12. Coronary artery disease. TREATMENT: 1. Shortness of breath/left basilar atelectasis. A Pulmonary consultation has been obtained with Dr. Luis A Juares. COVID-19 test is pending. The patient has been started empirically on Zosyn for presumed purulent bronchitis. We will follow recommendation of Pulmonary. The patient has also been started on intravenous Solu-Medrol. 2. Closed head injury. A CT scan of the head in the emergency room failed to demonstrate mass effect or acute bleed. 3. Constipation. The patient is receiving Colace. The patient is also receiving magnesium sulfate. 4. Acute asthma exacerbation. As above, a Pulmonary consultation has been obtained with Dr. Luis A Juares. The patient is currently receiving intravenous Solu-Medrol and DuoNeb nebulized q.4 hours. 5. Cerebrovascular disease, status post hemorrhagic cerebrovascular stroke. 6. Hypertension. Continue amlodipine as above. 7. Hypercholesteremia. Continue atorvastatin as above. 8. Gastroesophageal reflux disease. The patient has been started empirically on Protonix. 9. Seizure disorder. Continue Dilantin as above. 10. Coronary artery disease status post stent placement. Hank Toure M.D. DR: [place] JOB#: [id number] CC:
[2019-12-22 20:00] VITALS: BP 142/78
[2019-12-22] MEDS: Atorvastatin 80mg tab ORAL SCH (21:24)
[2019-12-23] VITALS: BP 163/97
[2019-12-23 04:00] VITALS: BP 163/85
[2019-12-23 04:32] LABS: HEMATOCRIT 38.2 % (37.0-47.0); HEMOGLOBIN 13.6 G/DL (12.0-16.0); MEAN CORPUSCULAR VOLUME 88 FL (80-99); PLATELET COUNT 188 K/UL (150-450); RED BLOOD COUNT 4.35 M/UL (4.20-5.40); RED CELL DISTRIBUTION WIDTH 12.5 % (11.6-14.8); WHITE BLOOD COUNT 13.9 K/UL (4.8-10.8)
[2019-12-23 04:46] LABS: ANION GAP 9 mmol/L (5-15); BLOOD UREA NITROGEN 24 mg/dL (7-18); CALCIUM 8.6 MG/DL (8.5-10.1); CARBON DIOXIDE 30 MMOL/L (21-32); CHLORIDE 107 MMOL/L (98-107); CREATININE 0.8 MG/DL (0.55-1.30); POTASSIUM 3.5 MMOL/L (3.5-5.1); SODIUM 146 MMOL/L (136-145)
[2019-12-23] MEDS: Piperacillin/Tazobactam 3.375 GM in NS 110 ML IVPB SCH ×3 (06:06→22:25)
[2019-12-23] MEDS: Solu-MEDROL 125mg Inj IV SCH ×4 (06:07→23:32)
[2019-12-23] MEDS: NovoLOG Insulin Flexpen SUBQ SCH ×4 (06:19→22:29)
[2019-12-23 08:00] VITALS: BP 156/88
[2019-12-23] MEDS: Phenytoin 100mg cap ORAL SCH ×3 (09:08→17:30)
[2019-12-23] MEDS: Losartan 50mg tab ORAL SCH (09:09)
[2019-12-23] MEDS: Furosemide 40mg tab ORAL SCH (09:09)
[2019-12-23] MEDS: Theophylline ER 100mg ORAL SCH ×2 (09:09→22:35)
[2019-12-23] MEDS: Aspirin EC 81mg tab ORAL SCH (09:09)
[2019-12-23] MEDS: Lyrica 50mg cap ORAL SCH (09:10)
[2019-12-23] MEDS: Docusate 100mg cap ORAL SCH (09:11)
[2019-12-23] MEDS: Heparin 5000 units/ml inj SUBQ SCH ×2 (09:11→22:28)
--- NOTE | 2019-12-23 11:49 | Diagnostic Imaging Report ---
Indication: Shortness of breath Technique: One view of the chest Comparison: 12/21/2019 Findings: The heart is enlarged. The aorta is tortuous and calcified and ectatic. No definite acute infiltrates, effusions, or congestion, although retrocardiac process not excludable. No definite significant interim change Impression: No definite acute process, although retrocardiac consolidation or atelectasis possible. No significant interim change lead 2 days
[2019-12-23 12:00] VITALS: BP 140/71
--- NOTE | 2019-12-23 12:43 | Pulmonology Progress Note ---
Assessment/Plan Problems: (1) Acute asthma exacerbation (2) Seizure disorder (3) CAD (coronary artery disease) (4) Chronic back pain (5) HTN (hypertension) (6) GERD (gastroesophageal reflux disease) Assessment/Plan respiratory treatment check electrolytes continue steroids check sputum physical therapy once better Subjective Interval Events: c/o headache, breathing better Allergies: Uncoded Allergies: Canned Food (Allergy, Unknown, 03/22/18) Nausea/Vomitting/Indigestion Objective Last 24 Hour Vital Signs Date Time Temp Pulse Resp B/P (MAP) Pulse Ox O2 Delivery O2 Flow Rate FiO2 12/23/19 12:00 98.9 105 20 140/71 (94) 96 12/23/19 09:10 106 156/88 12/23/19 09:09 156/88 12/23/19 09:00 Nasal Cannula 2.0 12/23/19 08:00 98.1 106 21 156/88 (110) 92 12/23/19 08:00 110 12/23/19 04:00 2.0 12/23/19 04:00 85 12/23/19 04:00 97.5 86 21 163/85 (111) 98 12/23/19 00:00 83 12/23/19 00:00 98.0 92 22 163/97 (119) 97 12/23/19 00:00 2.0 12/22/19 21:00 Nasal Cannula 2.0 12/22/19 20:00 96 12/22/19 20:00 2.0 12/22/19 20:00 98.1 90 18 142/78 (99) 95 12/22/19 16:00 2.0 12/22/19 16:00 97.0 102 18 147/70 (95) 98 12/22/19 16:00 90 Intake and Output 12/22/19 12/23/19 19:00 07:00 # Voids 2 General Appearance: WD/WN HEENT: normocephalic, atraumatic Respiratory/Chest: chest wall non-tender, respiratory distress, crackles/rales Cardiovascular: normal peripheral pulses, normal rate Abdomen: normal bowel sounds, soft, non tender Genitourinary: normal external genitalia Extremities: no cyanosis Skin: no rash Neurologic/Psychiatric: cardiothoracic icu rn II-XII grossly normal Lymphatic: no neck adenopathy Musculoskeletal: normal muscle bulk Laboratory Tests 12/23/19 04:00: White Blood Count 13.9#H, Red Blood Count 4.35, Hemoglobin 13.6, Hematocrit 38.2 , Mean Corpuscular Volume 88, Mean Corpuscular Hemoglobin 31.4H, Mean Corpuscular Hemoglobin Concent 35.7, Red Cell Distribution Width 12.5, Platelet Count 188, Mean Platelet Volume 6.5, Neutrophils (%) (Auto) , Lymphocytes (%) ( Auto) , Monocytes (%) (Auto) , Eosinophils (%) (Auto) , Basophils (%) (Auto) , Sodium Level 146H, Potassium Level 3.5, Chloride Level 107, Carbon Dioxide Level 30, Anion Gap 9, Blood Urea Nitrogen 24H, Creatinine 0.8, Estimat Glomerular Filtration Rate > 60, Glucose Level 146H, Calcium Level 8.6 Current Medications Medications (Trade) Dose Ordered Sig/Mecca Route PRN Reason Start Time Stop Time Status Last Admin Dose Admin Albuterol/ Ipratropium (Combivent Respimat) 2 puff Q6H PRN INH Shortness of Breath 12/23/19 01:15 01/22/20 01:14 12/23/19 07:22 Amlodipine Besylate (Norvasc) 2.5 mg DAILY ORAL 12/22/19 09:00 01/21/20 08:59 12/23/19 09:10 Aspirin (Ecotrin) 81 mg DAILY ORAL 12/22/19 09:00 02/05/20 08:59 12/23/19 09:09 Atorvastatin Calcium (Lipitor) 40 mg BEDTIME ORAL 12/21/19 21:00 03/20/20 20:59 12/22/19 21:24 Clopidogrel Bisulfate (Plavix) 75 mg DAILY ORAL 12/22/19 09:00 01/21/20 08:59 12/23/19 09:09 Dextrose (Dextrose 50%) 25 ml Q30M PRN IV Hypoglycemia 12/21/19 18:45 03/20/20 18:44 Dextrose (Dextrose 50%) 50 ml Q30M PRN IV Hypoglycemia 12/21/19 18:45 03/20/20 18:44 Docusate Sodium (Colace) 100 mg TWICE A DAY ORAL 12/22/19 18:00 01/21/20 17:59 12/23/19 09:11 Furosemide (Lasix) 40 mg DAILY ORAL 12/22/19 09:00 01/21/20 08:59 12/23/19 09:09 Heparin Sodium (Porcine) (Heparin 5000 units/ml) 5,000 units EVERY 12 HOURS SUBQ 12/21/19 21:00 02/04/20 20:59 12/23/19 09:11 Insulin Aspart (NovoLOG) BEFORE MEALS AND HS SUBQ 12/21/19 21:00 03/20/20 20:59 12/23/19 06:19 Lorazepam (Ativan 2mg/ml 1ml) 0.5 mg Q4H PRN IV For Anxiety 12/21/19 18:45 12/28/19 18:44 Losartan Potassium (Cozaar) 100 mg DAILY ORAL 12/22/19 09:00 01/21/20 08:59 12/23/19 09:09 Methylprednisolone Sodium Succinate (Solu-MEDROL) 60 mg EVERY 6 HOURS IV 12/22/19 00:00 03/21/20 00:00 12/23/19 06:07 Nitroglycerin (Ntg) 0.4 mg Q5M X 3 DOSES PRN SL Prn Chest Pain 12/21/19 18:45 01/20/20 18:44 Ondansetron HCl (Zofran) 4 mg Q6H PRN IVP Nausea & Vomiting 12/21/19 18:45 01/20/20 18:44 Phenytoin (Dilantin) 100 mg TID ORAL 12/22/19 09:00 01/21/20 08:59 12/23/19 09:08 Piperacillin Sod/ Tazobactam Sod 3.375 gm/Sodium Chloride 110 ml @ 27.5 mls/hr EVERY 8 HOURS IVPB 12/22/19 14:00 12/29/19 13:59 12/23/19 06:06 Pregabalin (Lyrica) 50 mg DAILY ORAL 12/22/19 09:00 01/21/20 08:59 12/23/19 09:10 Promethazine HCl/ Codeine (Phenergan with Codeine) 5 ml EVERY 6 HOURS PRN ORAL cough 12/21/19 18:45 01/20/20 18:44 Temazepam (Restoril) 15 mg HSPRN PRN ORAL Insomnia 12/21/19 21:00 4/25/20 20:59 Theophylline (Fabrice-Dur) 100 mg EVERY 12 HOURS ORAL 12/21/19 21:00 03/20/20 20:59 12/23/19 09:09 Luis A Juares MD Dec 23, 2019 12:43
--- NOTE | 2019-12-23 13:19 | Internal Med Progress Note ---
Subjective Date of Service: Dec 23, 2019 Physician Name Hank Toure Attending Physician Shlomo Garcia MD Current Medications Medications (Trade) Dose Ordered Sig/Mecca Route PRN Reason Start Time Stop Time Status Last Admin Dose Admin Albuterol/ Ipratropium (Combivent Respimat) 2 puff Q6H PRN INH Shortness of Breath 12/23/19 01:15 01/22/20 01:14 12/23/19 07:22 Amlodipine Besylate (Norvasc) 2.5 mg DAILY ORAL 12/22/19 09:00 01/21/20 08:59 12/23/19 09:10 Aspirin (Ecotrin) 81 mg DAILY ORAL 12/22/19 09:00 02/05/20 08:59 12/23/19 09:09 Atorvastatin Calcium (Lipitor) 40 mg BEDTIME ORAL 12/21/19 21:00 03/20/20 20:59 12/22/19 21:24 Clopidogrel Bisulfate (Plavix) 75 mg DAILY ORAL 12/22/19 09:00 01/21/20 08:59 12/23/19 09:09 Dextrose (Dextrose 50%) 25 ml Q30M PRN IV Hypoglycemia 12/21/19 18:45 03/20/20 18:44 Dextrose (Dextrose 50%) 50 ml Q30M PRN IV Hypoglycemia 12/21/19 18:45 03/20/20 18:44 Docusate Sodium (Colace) 100 mg TWICE A DAY ORAL 12/22/19 18:00 01/21/20 17:59 12/23/19 09:11 Furosemide (Lasix) 40 mg DAILY ORAL 12/22/19 09:00 01/21/20 08:59 12/23/19 09:09 Heparin Sodium (Porcine) (Heparin 5000 units/ml) 5,000 units EVERY 12 HOURS SUBQ 12/21/19 21:00 02/04/20 20:59 12/23/19 09:11 Insulin Aspart (NovoLOG) BEFORE MEALS AND HS SUBQ 12/21/19 21:00 03/20/20 20:59 12/23/19 06:19 Lorazepam (Ativan 2mg/ml 1ml) 0.5 mg Q4H PRN IV For Anxiety 12/21/19 18:45 12/28/19 18:44 Losartan Potassium (Cozaar) 100 mg DAILY ORAL 12/22/19 09:00 01/21/20 08:59 12/23/19 09:09 Methylprednisolone Sodium Succinate (Solu-MEDROL) 60 mg EVERY 6 HOURS IV 12/22/19 00:00 03/21/20 00:00 12/23/19 06:07 Nitroglycerin (Ntg) 0.4 mg Q5M X 3 DOSES PRN SL Prn Chest Pain 12/21/19 18:45 01/20/20 18:44 Ondansetron HCl (Zofran) 4 mg Q6H PRN IVP Nausea & Vomiting 12/21/19 18:45 01/20/20 18:44 Phenytoin (Dilantin) 100 mg TID ORAL 12/22/19 09:00 01/21/20 08:59 12/23/19 09:08 Piperacillin Sod/ Tazobactam Sod 3.375 gm/Sodium Chloride 110 ml @ 27.5 mls/hr EVERY 8 HOURS IVPB 12/22/19 14:00 12/29/19 13:59 12/23/19 06:06 Pregabalin (Lyrica) 50 mg DAILY ORAL 12/22/19 09:00 01/21/20 08:59 12/23/19 09:10 Promethazine HCl/ Codeine (Phenergan with Codeine) 5 ml EVERY 6 HOURS PRN ORAL cough 12/21/19 18:45 01/20/20 18:44 Temazepam (Restoril) 15 mg HSPRN PRN ORAL Insomnia 12/21/19 21:00 12/28/19 20:59 Theophylline (Fabrice-Dur) 100 mg EVERY 12 HOURS ORAL 12/21/19 21:00 03/20/20 20:59 12/23/19 09:09 Allergies: Uncoded Allergies: Canned Food (Allergy, Unknown, 03/22/18) Nausea/Vomitting/Indigestion ROS Limited/Unobtainable: No Constitutional: Reports: no symptoms HEENT: Reports: no symptoms Cardiovascular: Reports: no symptoms Respiratory: Reports: shortness of breath Gastrointestinal/Abdominal: Reports: no symptoms Genitourinary: Reports: no symptoms Neurologic/Psychiatric: Reports: no symptoms Subjective 84 YO F admitted with shortness of breath and fall injury. Now closed head injury and asthma exacerbation. Cover for Int Alex-Dr Garcia Objective Last Vital Signs Date Time Temp Pulse Resp B/P (MAP) Pulse Ox O2 Delivery O2 Flow Rate FiO2 12/23/19 12:00 98.9 105 20 140/71 (94) 96 12/23/19 09:00 Nasal Cannula 2.0 Laboratory Tests Test 12/23/19 04:00 White Blood Count 13.9 K/UL (4.8-10.8) #H Red Blood Count 4.35 M/UL (4.20-5.40) Hemoglobin 13.6 G/DL (12.0-16.0) Hematocrit 38.2 % (37.0-47.0) Mean Corpuscular Volume 88 FL (80-99) Mean Corpuscular Hemoglobin 31.4 PG (27.0-31.0) H Mean Corpuscular Hemoglobin Concent 35.7 G/DL (32.0-36.0) Red Cell Distribution Width 12.5 % (11.6-14.8) Platelet Count 188 K/UL (150-450) Mean Platelet Volume 6.5 FL (6.5-10.1) Neutrophils (%) (Auto) % (45.0-75.0) Lymphocytes (%) (Auto) % (20.0-45.0) Monocytes (%) (Auto) % (1.0-10.0) Eosinophils (%) (Auto) % (0.0-3.0) Basophils (%) (Auto) % (0.0-2.0) Sodium Level 146 MMOL/L (136-145) H Potassium Level 3.5 MMOL/L (3.5-5.1) Chloride Level 107 MMOL/L (98-107) Carbon Dioxide Level 30 MMOL/L (21-32) Anion Gap 9 mmol/L (5-15) Blood Urea Nitrogen 24 mg/dL (7-18) H Creatinine 0.8 MG/DL (0.55-1.30) Estimat Glomerular Filtration Rate > 60 mL/min (>60) Glucose Level 146 MG/DL (74-106) H Calcium Level 8.6 MG/DL (8.5-10.1) Intake and Output 12/22/19 12/23/19 19:00 07:00 # Voids 2 Objective PHYSICAL EXAMINATION: GENERAL: The patient is well-developed and well-nourished female, in no apparent distress. HEENT: Eyes pupils equal and responsive to light and accommodation. Extraocular movements are intact. NECK: Supple without lymphadenopathy. CHEST: Lungs are clear to auscultation bilaterally without wheezes or rales. CARDIOVASCULAR: Regular rate. S1 and S2 are normal without murmurs, rubs, or gallops. ABDOMEN: Soft, nontender, and nondistended. Positive bowel sounds. No evidence of hepatosplenomegaly. Currently, no rebound or guarding noted. EXTREMITIES: Negative for clubbing, cyanosis, or edema. RECTAL/GENITAL: Not performed. NEUROLOGIC: Cranial nerves II through XII are grossly intact without focal deficits. Motor strength is 5/5 bilaterally. Deep tendon reflexes are 2+ plantar. Assessment/Plan Assessment/Plan ASSESSMENT: This is an 84-year-old female. 1. Shortness of breath. 2. Closed head injury. 3. Left basilar atelectasis versus pneumonia. 4. Constipation. 5. Acute asthma exacerbation. 6. Purulent bronchitis. 7. Cerebrovascular disease. 8. Hypertension. 9. Hypercholesterolemia. 10. Gastroesophageal reflux disease. 11. History of seizure disorder. 12. Coronary artery disease. TREATMENT: 1. Shortness of breath/left basilar atelectasis. A Pulmonary consultation has been obtained with Dr. Luis A Juares. COVID-19 test is pending. The patient has been started empirically on Zosyn for presumed purulent bronchitis. We will follow recommendation of Pulmonary. The patient has also been started on intravenous Solu-Medrol. 2. Closed head injury. A CT scan of the head in the emergency room failed to demonstrate mass effect or acute bleed. 3. Constipation. The patient is receiving Colace. The patient is also receiving magnesium sulfate. 4. Acute asthma exacerbation. As above, a Pulmonary consultation has been obtained with Dr. Luis A Juares. The patient is currently receiving intravenous Solu-Medrol and DuoNeb nebulized q.4 hours. 5. Cerebrovascular disease, status post hemorrhagic cerebrovascular stroke. 6. Hypertension. Continue amlodipine as above. 7. Hypercholesteremia. Continue atorvastatin as above. 8. Gastroesophageal reflux disease. The patient has been started empirically on Protonix. 9. Seizure disorder. Continue Dilantin as above. 10. Coronary artery disease status post stent placement. Hank Toure MD Dec 23, 2019 13:18
[2019-12-23 16:00] VITALS: BP 142/72
[2019-12-23 20:00] VITALS: BP 164/82
[2019-12-23] MEDS: Atorvastatin 80mg tab ORAL SCH (22:26)
[2019-12-24 04:00] VITALS: BP 158/86
[2019-12-24] MEDS: Solu-MEDROL 125mg Inj IV SCH ×2 (06:02→13:32)
[2019-12-24] MEDS: Piperacillin/Tazobactam 3.375 GM in NS 110 ML IVPB SCH ×2 (06:02→14:00)
[2019-12-24] MEDS: NovoLOG Insulin Flexpen SUBQ SCH ×2 (06:26→11:30)
[2019-12-24 08:00] VITALS: BP 142/75
[2019-12-24] MEDS: Furosemide 40mg tab ORAL SCH (08:46)
[2019-12-24] MEDS: Lyrica 50mg cap ORAL SCH (08:47)
[2019-12-24] MEDS: Aspirin EC 81mg tab ORAL SCH (08:51)
[2019-12-24] MEDS: Phenytoin 100mg cap ORAL SCH ×2 (08:51→13:32)
[2019-12-24] MEDS: Losartan 50mg tab ORAL SCH (08:51)
[2019-12-24] MEDS: Heparin 5000 units/ml inj SUBQ SCH (08:54)
[2019-12-24] MEDS: Theophylline ER 100mg ORAL SCH (10:09)
[2019-12-24 12:00] VITALS: BP 132/80
--- NOTE | 2019-12-24 12:29 | Pulmonology Progress Note ---
Assessment/Plan Problems: (1) Acute asthma exacerbation (2) Seizure disorder (3) CAD (coronary artery disease) (4) Chronic back pain (5) HTN (hypertension) (6) GERD (gastroesophageal reflux disease) Assessment/Plan pt wants to go home since he is not getting any respiratory treatment respiratory treatment check electrolytes continue steroids check sputum physical therapy once better Subjective Constitutional: Reports: no symptoms HEENT: Repors: no symptoms Allergies: Uncoded Allergies: Canned Food (Allergy, Unknown, 03/22/18) Nausea/Vomitting/Indigestion Objective Last 24 Hour Vital Signs Date Time Temp Pulse Resp B/P (MAP) Pulse Ox O2 Delivery O2 Flow Rate FiO2 12/24/19 09:00 Nasal Cannula 2.0 12/24/19 08:51 142/75 12/24/19 08:51 95 142/75 12/24/19 08:00 98.0 106 18 142/75 (97) 99 12/24/19 08:00 106 12/24/19 04:00 98.6 101 18 158/86 (110) 97 12/24/19 04:00 91 12/24/19 00:00 84 12/23/19 21:00 Nasal Cannula 2.0 12/23/19 20:00 92 12/23/19 20:00 98.0 98 18 164/82 (109) 97 12/23/19 16:00 99.0 88 20 142/72 (95) 94 12/23/19 16:00 85 Intake and Output 12/23/19 12/24/19 19:00 07:00 Intake Total 610 ml 480 ml Balance 610 ml 480 ml Intake Oral 610 ml 480 ml # Voids 3 3 # Bowel Movements 1 General Appearance: WD/WN HEENT: normocephalic, atraumatic Respiratory/Chest: chest wall non-tender, lungs clear Breasts: no masses Cardiovascular: normal peripheral pulses Abdomen: soft, non tender Genitourinary: normal external genitalia Skin: no rash Microbiology Date/Time Source Procedure Growth Status 12/21/19 16:00 Nasopharynx Coronavirus COVID-19 PCR ([facility]) - Final Complete Current Medications Medications (Trade) Dose Ordered Sig/Mecca Route PRN Reason Start Time Stop Time Status Last Admin Dose Admin Albuterol/ Ipratropium (Combivent Respimat) 2 puff Q6H PRN INH Shortness of Breath 4/20/20 01:15 01/22/20 01:14 12/23/19 07:22 Amlodipine Besylate (Norvasc) 2.5 mg DAILY ORAL 12/22/19 09:00 01/21/20 08:59 12/24/19 08:51 Aspirin (Ecotrin) 81 mg DAILY ORAL 12/22/19 09:00 02/05/20 08:59 12/24/19 08:51 Atorvastatin Calcium (Lipitor) 40 mg BEDTIME ORAL 12/21/19 21:00 03/20/20 20:59 12/23/19 22:26 Clopidogrel Bisulfate (Plavix) 75 mg DAILY ORAL 12/22/19 09:00 01/21/20 08:59 12/24/19 08:46 Dextrose (Dextrose 50%) 25 ml Q30M PRN IV Hypoglycemia 12/21/19 18:45 03/20/20 18:44 Dextrose (Dextrose 50%) 50 ml Q30M PRN IV Hypoglycemia 12/21/19 18:45 03/20/20 18:44 Furosemide (Lasix) 40 mg DAILY ORAL 12/22/19 09:00 01/21/20 08:59 12/24/19 08:46 Heparin Sodium (Porcine) (Heparin 5000 units/ml) 5,000 units EVERY 12 HOURS SUBQ 12/21/19 21:00 02/04/20 20:59 12/24/19 08:54 Insulin Aspart (NovoLOG) BEFORE MEALS AND HS SUBQ 12/21/19 21:00 03/20/20 20:59 12/24/19 06:26 Lorazepam (Ativan 2mg/ml 1ml) 0.5 mg Q4H PRN IV For Anxiety 12/21/19 18:45 12/28/19 18:44 Losartan Potassium (Cozaar) 100 mg DAILY ORAL 12/22/19 09:00 01/21/20 08:59 12/24/19 08:51 Methylprednisolone Sodium Succinate (Solu-MEDROL) 60 mg EVERY 6 HOURS IV 12/22/19 00:00 03/21/20 00:00 12/24/19 06:02 Nitroglycerin (Ntg) 0.4 mg Q5M X 3 DOSES PRN SL Prn Chest Pain 12/21/19 18:45 01/20/20 18:44 Ondansetron HCl (Zofran) 4 mg Q6H PRN IVP Nausea & Vomiting 12/21/19 18:45 01/20/20 18:44 Phenytoin (Dilantin) 100 mg TID ORAL 12/22/19 09:00 01/21/20 08:59 12/24/19 08:51 Piperacillin Sod/ Tazobactam Sod 3.375 gm/Sodium Chloride 110 ml @ 27.5 mls/hr EVERY 8 HOURS IVPB 12/22/19 14:00 12/29/19 13:59 12/24/19 06:02 Pregabalin (Lyrica) 50 mg DAILY ORAL 12/22/19 09:00 01/21/20 08:59 12/24/19 08:47 Promethazine HCl/ Codeine (Phenergan with Codeine) 5 ml EVERY 6 HOURS PRN ORAL cough 12/21/19 18:45 01/20/20 18:44 12/24/19 02:54 Temazepam (Restoril) 15 mg HSPRN PRN ORAL Insomnia 12/21/19 21:00 12/28/19 20:59 12/23/19 23:32 Theophylline (Fabrice-Dur) 100 mg EVERY 12 HOURS ORAL 12/21/19 21:00 03/20/20 20:59 12/24/19 10:09 Luis A Juares MD Dec 24, 2019 12:29
[2019-12-24] MEDS ORDERED: MEDROL DOSEPAK4 MG ORAL (12:31)
[2019-12-24] MEDS ORDERED: VENTOLIN HFA18 GM INH (12:31)
--- NOTE | 2019-12-25 10:24 | Discharge Summary ---
Discharge Summary Discharge Summary _ DATE OF ADMISSION: 12/21/2019 DATE OF DISCHARGE: 12/24/2019 DISCHARGED BY: Dr. Garcia REASON FOR ADMISSION: 84 years old female with past medical history of asthma/COPD, hypertension, coronary artery disease, status post stent placement, hyperlipidemia, CVA, diabetes mellitus, seizure disorder, DNR/DNI status, presented after hitting her head secondary to falling episode. She denied neck pain , but reported moderate in intensity and intermittent in duration headache . She denied loss of consciousness or blackouts. She denied seizure episode. Patient also reported shortness of breath , ongoing for few days, acutely worsening for the last day. She tried breathing treatment at home , which helped initially. However she continued to be short of breath and wheezing. No cough or congestion . No fevers or chills. On evaluation patient was afebrile. CT of the head revealed no acute intracranial pathology. Laboratory work-up revealed no leukocytosis. Potassium 3.3. Chest x-ray revealed left base atelectasis, possible pneumonia. In emergency room patient was tested for COVID 19 by PCR. Patient admitted to telemetry floor to isolation room for further management. CONSULTANTS: pulmonary [facility] COURSE: Supplemental oxygen provided and titrated to keep oximetry above 92%. Nebulizing treatment with bronchodilator provided [id number] and as needed. Patient started on IV steroids with fast tapering. Patient started on empiric antibiotic. Trial of theophylline initiated. Antitussive provided as needed. Blood pressure was managed with current regimen of calcium channel steph and angiotensin receptor steph. Dual antiplatelet therapy and statin continued. Lasix continued with close monitoring of volumes, electrolytes and renal parameters. DVT and GI prophylaxis provided. Blood sugar was managed with sliding scale of insulin. Seizure precaution maintained. Dilantin continued. Potassium was replaced. SARS-CoV-2 by PCR was not detected. Isolation was discontinued. Patient clinically stabilized and was ready for discharge home. FINAL DIAGNOSES: Acute asthma/ COPD exacerbation Possible pneumonia Headache ( secondary to head injury due to fall - resolved) Closed head injury Hypokalemia-resolved Hypertension Coronary artery disease, status post stent placement Hyperlipidemia Diabetes mellitus Seizure disorder Cerebrovascular disease with history of CVA Chronic back pain GERD DISCHARGE MEDICATIONS: See Medication Reconciliation list. DISCHARGE INSTRUCTIONS: Patient was discharged home. Follow-up with a primary care provider in 1 week. I have been assigned to dictate discharge summary for this account. I was not involved in the patient's management. eJssica Landry NP Dec 25, 2019 10:24
== END 2019-12-24 15:00 | disposition home or self-care (01) | DRG 190 ==
LOC: EDBD 15:53 → EMR 16:18 → 2E 16:28 → EDBEDREQ 18:13
DX: J44.0 Chronic obstructive pulmonary disease with (acute) lower respiratory infection (principal); J18.9 Pneumonia, unspecified organism; J44.1 Chronic obstructive pulmonary disease with (acute) exacerbation; R51 Headache; S09.8XXA Other specified injuries of head, initial encounter; W19.XXXA Unspecified fall, initial encounter; E87.6 Hypokalemia; I10 Essential (primary) hypertension; I25.10 Atherosclerotic heart disease of native coronary artery without angina pectoris; Z95.5 Presence of coronary angioplasty implant and graft; E78.5 Hyperlipidemia, unspecified; G40.909 Epilepsy, unspecified, not intractable, without status epilepticus; Z86.73 Personal history of transient ischemic attack (TIA), and cerebral infarction without residual deficits; G89.29 Other chronic pain; M54.9 Dorsalgia, unspecified; K21.9 Gastro-esophageal reflux disease without esophagitis; Z66 Do not resuscitate; E11.9 Type 2 diabetes mellitus without complications
CPT/HCPCS: 36415; 70450; 71045; 80048; 80053; 83880; 84484; 85025; 85610; 85730; 87635; 93005; 94640; 96360; 99285; J1815; J8499

== ENCOUNTER 2020-02-25 07:47 | Inpatient (IN) | payer MEDICARE, MEDICAID ==
[~2020-02-25] VITALS: Ht 152.4 cm; Wt 64.0 kg
[~2020-02-25 07:47] MED LIST changes: +ALBUTEROL SULF8.5 G1 INH; +PREDNISONE50 MG ORAL
[2020-02-25 08:00] VITALS: BP 132/79
--- NOTE | 2020-02-25 08:00 | NUR ---
ED Nurse Note: Placed patient in privated room and initiated contact, droplet and airborne precaution. ERMD notified.
--- NOTE | 2020-02-25 08:00 | NUR ---
ED Nurse Note: Pt came into ED by wheelchair from home. She has had mid chest tightness and SOB since last night 1999. She has history of asthma. Pt is alert and 0x4. 99% 2L NC, R 27. Pt set up in isolation room with mask. Set up on monitor.
--- NOTE | 2020-02-25 08:31 | NUR ---
ED Nurse Note: Blood labs sent.
[2020-02-25 08:38] LABS: APPEARANCE,URINE CLEAR; BILIRUBIN, URINE NEGATIVE (NEGATIVE); COLOR,URINE PALE YELLOW; GLUCOSE, URINE (UA) NEGATIVE (NEGATIVE); KETONES,URINE NEGATIVE (NEGATIVE); LEUKOCYTE ESTERASE ,URINE NEGATIVE (NEGATIVE); NITRITE,URINE NEGATIVE (NEGATIVE); PH,URINE 8 (4.5-8.0); PROTEIN,URINE 2+ (NEGATIVE); UROBILINOGEN,URINE NORMAL MG/DL (0.0-1.0)
--- NOTE | 2020-02-25 08:40 | NUR ---
ED Nurse Note: COVID swab sent.
[2020-02-25 08:45] LABS: ANION GAP 8 mmol/L (5-15); BLOOD UREA NITROGEN 17 mg/dL (7-18); CALCIUM 8.7 MG/DL (8.5-10.1); CARBON DIOXIDE 31 MMOL/L (21-32); CHLORIDE 103 MMOL/L (98-107); CREATININE 0.5 MG/DL (0.55-1.30); POTASSIUM 3.6 MMOL/L (3.5-5.1); SODIUM 142 MMOL/L (136-145)
--- NOTE | 2020-02-25 08:48 | Emergency Room Report ---
History of Present Illness General Chief Complaint: Dyspnea/Respdistress Source: Patient, Medical Record Present Illness HPI 85-year-old female presents for shortness of breath. Starting yesterday. Notes leg swelling and generalized swelling. Denies chest pain. Denies fevers or chills. Denies cough. Denies sick contacts or recent travel. No other aggravating relieving factors. Denies any other associated symptoms Allergies: Uncoded Allergies: Canned Food (Allergy, Unknown, 03/22/18) Nausea/Vomitting/Indigestion COVID-19 Screening Contact w/high risk pt: No Recent Travel to affected area: No Experienced COVID-19 symptoms?: Yes COVID-19 symptoms experienced: Shortness of Breath, Cough COVID-19 Testing performed TOOL FILER HAND: No Patient History Past Medical History: DM, HTN, asthma, COPD, CVA/TIA, seizures Past Surgical History: none Pertinent Family History: none Social History: Denies: smoking, alcohol use, drug use Now: No Immunizations: UTD Reviewed Nursing Documentation: PMH: Agreed; PSxH: Agreed Nursing Documentation-PMH Past Medical History: No History, Except For Hx Cardiac Problems: Yes Hx Hypertension: Yes Hx Asthma: Yes Hx COPD: Yes Hx Diabetes: Yes Hx Cancer: No Hx Gastrointestinal Problems: Yes Hx Neurological Problems: Yes Hx Cerebrovascular Accident: Yes Hx Transient Ischemic Attacks: Yes Hx Seizures: Yes Hx Epilepsy: Yes Review of Systems All Other Systems: negative except mentioned in HPI Physical Exam Vital Signs Date Time Temp Pulse Resp B/P (MAP) Pulse Ox O2 Delivery O2 Flow Rate FiO2 02/25/20 07:55 98.8 103 35 156/81 (106) 100 Room Air Sp02 EP Interpretation: reviewed, normal General Appearance: no apparent distress, alert, GCS 15, non-toxic Head: normocephalic, atraumatic Eyes: bilateral eye normal inspection, bilateral eye PERRL ENT: hearing grossly normal, normal pharynx, no angioedema, normal voice Neck: full range of motion, supple/symm/no masses Respiratory: chest non-tender, decreased breath sounds, speaking full sentences , wheezing Cardiovascular #1: regular rate, rhythm, no edema Cardiovascular #2: 2+ carotid (R), 2+ carotid (L), 2+ radial (R), 2+ radial (L) , 2+ dorsalis pedis (R), 2+ dorsalis pedis (L) Gastrointestinal: normal bowel sounds, non tender, soft, non-distended, no guarding, no rebound Rectal: deferred Genitourinary: normal inspection, no CVA tenderness Musculoskeletal: back normal, normal range of motion, gait/station normal, swelling - 2+ pitting edema Neurologic: alert, motor strength/tone normal, oriented x3, sensory intact, responsive, speech normal Psychiatric: judgement/insight normal, memory normal, mood/affect normal, no suicidal/homicidal ideation Reflexes: 3+ bicep (R), 3+ bicep (L), 3+ tricep (R), 3+ tricep (L), 3+ knee (R) , 3+ knee (L) Skin: other - see nursing skin notes Lymphatic: no adenopathy Medical Decision Making Diagnostic Impression: Primary Impression: COPD exacerbation ER Course Hospital Course 85-year-old F presenting to ED with SOB Differential diagnoses include: Pneumonia, CHF exacerbation, pneumothorax, fluid overload Clinical course Patient placed on stretcher. On registered nurse cardiac telemetry with stable vitals. In isolation. I wore full PPE. After initial history and physical, I ordered labs, IV fluids, EKG, chest x-ray, blood cultures, UA. Rapid COVID performed and negative Labs - no leukocytosis noted, hemoglobin/hematocrit stable, electrolytes okay, lactate okay, troponins negative CXR - no infiltrates EKG - NSR no acute ischemic changes intepreted by me Nebulizer treatments given. Solu-Medrol given. Antibiotics given. Case discussed with Dr. Garcia and he agreed to the patient to his service for further care and support I feel this is a highly complex case requiring extensive working including EKG/ Rhythm strip, Xray/CT/US, Blood/urine lab work, repeat exams while in ED, and administration of strong opiates/narcotics for pain control, admission to hospital or close patient follow up. Diagnosis - COPD exacerbation Patient admitted to telemetry in serious condition Labs Test 02/25/20 08:12 02/25/20 09:00 Urine Color Pale yellow Urine Appearance Clear Urine pH 8 (4.5-8.0) Urine Specific [place] 1.015 (1.005-1.035) Urine Protein 2+ (NEGATIVE) Urine Glucose (UA) Negative (NEGATIVE) Urine Ketones Negative (NEGATIVE) Urine Blood 1+ (NEGATIVE) Urine Nitrite Negative (NEGATIVE) Urine Bilirubin Negative (NEGATIVE) Urine Urobilinogen Normal MG/DL (0.0-1.0) Urine Leukocyte Esterase Negative (NEGATIVE) Urine RBC 0-2 /HPF (0 - 2) Urine WBC 0-2 /HPF (0 - 2) Urine Squamous Epithelial Cells Occasional /LPF Urine Bacteria Occasional /HPF (NONE) Sodium Level 142 MMOL/L (136-145) Potassium Level 3.6 MMOL/L (3.5-5.1) Chloride Level 103 MMOL/L (98-107) Carbon Dioxide Level 31 MMOL/L (21-32) Anion Gap 8 mmol/L (5-15) Blood Urea Nitrogen 17 mg/dL (7-18) Creatinine 0.5 MG/DL (0.55-1.30) Estimat Glomerular Filtration Rate > 60 mL/min (>60) Glucose Level 111 MG/DL (74-106) Lactic Acid Level 1.30 mmol/L (0.4-2.0) Calcium Level 8.7 MG/DL (8.5-10.1) Total Bilirubin 0.2 MG/DL (0.2-1.0) Aspartate Amino Transf (AST/SGOT) 20 U/L (15-37) Alanine Aminotransferase (ALT/SGPT) 33 U/L (12-78) Alkaline Phosphatase 120 U/L (46-116) Troponin I 0.000 ng/mL (0.000-0.056) Pro-B-Type Natriuretic Peptide 56 pg/mL (0-125) Total Protein 8.0 G/DL (6.4-8.2) Albumin 3.9 G/DL (3.4-5.0) Globulin 4.1 g/dL Albumin/Globulin Ratio 1.0 (1.0-2.7) White Blood Count 8.2 K/UL (4.8-10.8) Red Blood Count 4.70 M/UL (4.20-5.40) Hemoglobin 14.3 G/DL (12.0-16.0) Hematocrit 44.2 % (37.0-47.0) Mean Corpuscular Volume 94 FL (80-99) Mean Corpuscular Hemoglobin 30.5 PG (27.0-31.0) Mean Corpuscular Hemoglobin Concent 32.4 G/DL (32.0-36.0) Red Cell Distribution Width 12.8 % (11.6-14.8) Platelet Count 216 K/UL (150-450) Mean Platelet Volume 7.0 FL (6.5-10.1) Neutrophils (%) (Auto) 71.3 % (45.0-75.0) Lymphocytes (%) (Auto) 15.6 % (20.0-45.0) Monocytes (%) (Auto) 8.2 % (1.0-10.0) Eosinophils (%) (Auto) 4.3 % (0.0-3.0) Basophils (%) (Auto) 0.5 % (0.0-2.0) EKG Diagnostic Results Rate: normal Rhythm: NSR ST Segments: no acute changes ASA given to the pt in ED: No Rhythm Strip Diag. Results EP Interpretation: yes Rhythm: NSR, no PVC's, no ectopy Chest X-Ray Diagnostic Results Chest X-Ray Diagnostic Results : Chest X-Ray Ordered: Yes # of Views/Limited/Complete: 1 View Indication: Shortness of Breath EP Interpretation: Yes Interpretation: no effusion, no pneumothorax, no acute cardiopulmonary disease, other - Atelectasis left lower lung base Impression: Other - chf/pna Electronically Signed by: Electronically signed by Bhavesh Roldan MD Last Vital Signs Date Time Temp Pulse Resp B/P (MAP) Pulse Ox O2 Delivery O2 Flow Rate FiO2 02/25/20 07:55 98.8 103 35 156/81 (106) 100 Room Air Status: improved Disposition: ADMITTED INPATIENT Condition: Serious Referrals: NON PHYSICIAN (PCP) Bhavesh Roldan MD Feb 25, 2020 08:48
[2020-02-25 08:56] LABS: ALANINE AMINOTRANSFERASE 33 U/L (12-78); ALBUMIN 3.9 G/DL (3.4-5.0); ALKALINE PHOSPHATASE 120 U/L (46-116); ASPARTATE AMINO TRANSFERASE 20 U/L (15-37); BILIRUBIN,TOTAL 0.2 MG/DL (0.2-1.0)
--- NOTE | 2020-02-25 09:06 | NUR ---
ED Nurse Note: 2nd lavender top sent to lab.
[2020-02-25 09:13] LABS: BASOPHILS % (AUTO) 0.5 % (0.0-2.0); EOSINOPHILS % (AUTO) 4.3 % (0.0-3.0); HEMATOCRIT 44.2 % (37.0-47.0); HEMOGLOBIN 14.3 G/DL (12.0-16.0); LYMPHOCYTES % (AUTO) 15.6 % (20.0-45.0); MEAN CORPUSCULAR VOLUME 94 FL (80-99); MONOCYTES % (AUTO) 8.2 % (1.0-10.0); NEUTROPHILS % (AUTO) 71.3 % (45.0-75.0); PLATELET COUNT 216 K/UL (150-450); RED CELL DISTRIBUTION WIDTH 12.8 % (11.6-14.8); WHITE BLOOD COUNT 8.2 K/UL (4.8-10.8)
[2020-02-25] MEDS ORDERED: Solu-MEDROL 125mg Inj IVP ONE (09:30)
[2020-02-25] MEDS: Albuterol ud Inhalation HHN SCH ×3 (09:37→09:59)
[2020-02-25] MEDS: Ipratropium 0.02% Inh Soln 2.5ml UD HHN SCH ×3 (09:37→09:59)
[2020-02-25] MEDS ORDERED: Azithromycin 500 MG in NS 275 ML IV ONE (09:45)
[2020-02-25] MEDS ORDERED: Piperacillin/Tazobactam 3.375 GM in NS 110 ML IVPB ONE (09:45)
[2020-02-25] MEDS ORDERED: Nitroglycerin Subl 0.4mg tab SL PRN (10:00)
[2020-02-25] MEDS ORDERED: LORazepam Inj 2mg/ml 1ml IV PRN (10:00)
--- NOTE | 2020-02-25 10:03 | NUR ---
ED Nurse Note: Patient does not recall her medication name.
[2020-02-25 10:30] VITALS: BP 129/74
--- NOTE | 2020-02-25 10:48 | Diagnostic Imaging Report ---
Procedure: XRAY Chest 1v Reason for study: Reason For Exam: SOB Comparison films: 12/23/2019. FINDINGS: A single one view chest is obtained. Vascularity is normal. The lung perez are clear bilaterally. There is cardiomegaly and tortuous aorta. CP angles are sharp. Fracture deformity of the right sixth and seventh ribs noted of undetermined age. IMPRESSION: No acute alveolar disease. Fractures of the right sixth and seventh ribs of undetermined age.
--- NOTE | 2020-02-25 11:42 | NUR ---
ED Nurse Note: initial iv site d/c'd as requested by pt. new iv site established.
--- NOTE | 2020-02-25 11:45 | NUR ---
ED Nurse Note: Spoke to pharmacist Michael to get meds verified Novolog and solumedrol.
[2020-02-25] MEDS: Solu-MEDROL 125mg Inj IV SCH ×2 (12:51→17:17)
[2020-02-25] MEDS: NovoLOG Insulin Flexpen SUBQ SCH ×3 (12:53→21:40)
[2020-02-25 13:01] VITALS: BP 137/76
--- NOTE | 2020-02-25 13:34 | Consultation ---
History of Present Illness General Date patient seen: Feb 25, 2020 Chief Complaint: Dyspnea/Respdistress Present Illness HPI 85-year-old female with Past medical history of asthma/COPD, hypertension, coronary artery disease status post stent placement, CVA, diabetes mellitus, seizure disorder, presented to ER with CC of shortness of breath ongoing for few days, worsening for the last day. She tried breathing treatments which helped , however she continued to be short of breath and wheezing. She is admitted to telemetry for further management. Allergies: Uncoded Allergies: Canned Food (Allergy, Unknown, 03/22/18) Nausea/Vomitting/Indigestion Medication History Scheduled Albuterol Sulfate (Ventolin Hfa), 1 PUFF INH EVERY 6 HOURS Amlodipine Besylate* (Amlodipine Besylate*), 2.5 MG ORAL DAILY, (Reported) Aspirin (Aspirin EC), 81 MG ORAL DAILY, (Reported) Atorvastatin Calcium* (Atorvastatin Calcium*), 40 MG ORAL BEDTIME, (Reported) Clopidogrel* (Clopidogrel*), 75 MG ORAL DAILY, (Reported) Furosemide* (Lasix*), 40 MG ORAL DAILY, (Reported) Isosorbide Mononitrate (Isosorbide Mononitrate Er), 30 MG PO DAILY, (Reported) Levocetirizine Dihydrochloride (Levocetirizine Dihydrochloride), 5 MG ORAL DAILY , (Reported) Linagliptin (Tradjenta), 5 MG PO QD, (Reported) Losartan Potassium (Losartan Potassium), 100 MG ORAL DAILY, (Reported) Methylprednisolone (Methylprednisolone*), 4 MG ORAL DIRECTED Montelukast Sodium* (Montelukast Sodium*), 10 MG ORAL DAILY, (Reported) Phenytoin Sodium Extended* (Phenytoin Sodium Extended*), 100 MG ORAL TID, ( Reported) Prednisone* (Prednisone*), 50 MG ORAL DAILY Pregabalin (Lyrica), 50 MG ORAL DAILY, (Reported) Scheduled PRN Albuterol Sulfate (Ventolin Hfa), 2 PUFFS INH EVERY 6 HOURS PRN for Shortness of Breath, (Reported) Albuterol Sulfate* (Albuterol Sulfate Hfa*), 4 PUFF INH Q4H PRN for Shortness of Breath Patient History Healthcare decision maker Resuscitation status Advanced Directive on File Past Medical/Surgical History Past Medical/Surgical History: (1) HTN (hypertension) (2) GERD (gastroesophageal reflux disease) (3) Seizure disorder (4) CAD (coronary artery disease) (5) Hemorrhagic stroke (6) Chronic back pain (7) Herpes zoster Review of Systems All Other Systems: negative except mentioned in HPI Physical Exam General Appearance: WD/WN Lines, tubes and drains: peripheral HEENT: normocephalic Neck: non-tender, normal alignment Respiratory/Chest: chest wall non-tender, lungs clear Cardiovascular/Chest: normal peripheral pulses Abdomen: normal bowel sounds Genitourinary/Rectal: normal genital exam Extremities: normal range of motion Neurologic: rfid developer II-XII grossly normal Last 24 Hour Vital Signs Date Time Temp Pulse Resp B/P (MAP) Pulse Ox O2 Delivery O2 Flow Rate FiO2 02/25/20 13:01 98.8 80 23 137/76 99 Nasal Cannula 2.0 02/25/20 10:30 98.8 78 24 129/74 99 Nasal Cannula 2.0 02/25/20 09:48 86 18 100 Nasal Cannula 2.0 28 85 18 100 02/25/20 09:37 87 18 100 Nasal Cannula 2.0 28 85 18 100 02/25/20 08:00 98.8 74 27 132/79 99 Nasal Cannula 2.0 02/25/20 08:00 74 27 Nasal Cannula 2.0 99 02/25/20 07:55 98.8 103 35 156/81 (106) 100 Room Air Laboratory Tests Test 02/25/20 08:12 02/25/20 09:00 Urine Color Pale yellow Urine Appearance Clear Urine pH 8 (4.5-8.0) Urine Specific [place] 1.015 (1.005-1.035) Urine Protein 2+ (NEGATIVE) H Urine Glucose (UA) Negative (NEGATIVE) Urine Ketones Negative (NEGATIVE) Urine Blood 1+ (NEGATIVE) H Urine Nitrite Negative (NEGATIVE) Urine Bilirubin Negative (NEGATIVE) Urine Urobilinogen Normal MG/DL (0.0-1.0) Urine Leukocyte Esterase Negative (NEGATIVE) Urine RBC 0-2 /HPF (0 - 2) Urine WBC 0-2 /HPF (0 - 2) Urine Squamous Epithelial Cells Occasional /LPF Urine Bacteria Occasional /HPF (NONE) Sodium Level 142 MMOL/L (136-145) Potassium Level 3.6 MMOL/L (3.5-5.1) Chloride Level 103 MMOL/L (98-107) Carbon Dioxide Level 31 MMOL/L (21-32) Anion Gap 8 mmol/L (5-15) Blood Urea Nitrogen 17 mg/dL (7-18) Creatinine 0.5 MG/DL (0.55-1.30) L Estimat Glomerular Filtration Rate > 60 mL/min (>60) Glucose Level 111 MG/DL (74-106) H Lactic Acid Level 1.30 mmol/L (0.4-2.0) Calcium Level 8.7 MG/DL (8.5-10.1) Total Bilirubin 0.2 MG/DL (0.2-1.0) Aspartate Amino Transf (AST/SGOT) 20 U/L (15-37) Alanine Aminotransferase (ALT/SGPT) 33 U/L (12-78) Alkaline Phosphatase 120 U/L (46-116) H Troponin I 0.000 ng/mL (0.000-0.056) Pro-B-Type Natriuretic Peptide 56 pg/mL (0-125) Total Protein 8.0 G/DL (6.4-8.2) Albumin 3.9 G/DL (3.4-5.0) Globulin 4.1 g/dL Albumin/Globulin Ratio 1.0 (1.0-2.7) White Blood Count 8.2 K/UL (4.8-10.8) Red Blood Count 4.70 M/UL (4.20-5.40) Hemoglobin 14.3 G/DL (12.0-16.0) Hematocrit 44.2 % (37.0-47.0) Mean Corpuscular Volume 94 FL (80-99) Mean Corpuscular Hemoglobin 30.5 PG (27.0-31.0) Mean Corpuscular Hemoglobin Concent 32.4 G/DL (32.0-36.0) Red Cell Distribution Width 12.8 % (11.6-14.8) Platelet Count 216 K/UL (150-450) Mean Platelet Volume 7.0 FL (6.5-10.1) Neutrophils (%) (Auto) 71.3 % (45.0-75.0) Lymphocytes (%) (Auto) 15.6 % (20.0-45.0) L Monocytes (%) (Auto) 8.2 % (1.0-10.0) Eosinophils (%) (Auto) 4.3 % (0.0-3.0) H Basophils (%) (Auto) 0.5 % (0.0-2.0) Microbiology Date/Time Source Procedure Growth Status 02/25/20 08:37 Nasopharynx SARS-CoV-2 RdRp Gene Assay - Final Complete Height (Feet): 5 Weight (Pounds): 147 Medications Current Medications Medications (Trade) Dose Ordered Sig/[place] Route PRN Reason Start Time Stop Time Status Last Admin Dose Admin Albuterol/ Ipratropium (Albuterol/ Ipratropium) 3 ml Q4H PRN HHN dyspnea 02/25/20 10:00 03/01/20 09:59 Amlodipine Besylate (Norvasc) 2.5 mg DAILY ORAL 02/26/20 09:00 03/27/20 08:59 Aspirin (Ecotrin) 81 mg DAILY ORAL 02/26/20 09:00 04/11/20 08:59 Atorvastatin Calcium (Lipitor) 40 mg BEDTIME ORAL 02/25/20 21:00 05/25/20 20:59 Clopidogrel Bisulfate (Plavix) 75 mg DAILY ORAL 02/26/20 09:00 03/27/20 08:59 Dextrose (Dextrose 50%) 25 ml Q30M PRN IV Hypoglycemia 02/25/20 10:00 05/25/20 09:59 Dextrose (Dextrose 50%) 50 ml Q30M PRN IV Hypoglycemia 02/25/20 10:00 05/25/20 09:59 Furosemide (Lasix) 40 mg DAILY ORAL 02/26/20 09:00 03/27/20 08:59 Heparin Sodium (Porcine) (Heparin 5000 units/ml) 5,000 units EVERY 12 HOURS SUBQ 02/25/20 21:00 04/10/20 20:59 Insulin Aspart (NovoLOG) BEFORE MEALS AND HS SUBQ 02/25/20 11:30 05/25/20 11:29 02/25/20 12:53 Isosorbide Mononitrate (Imdur) 30 mg DAILY ORAL 02/26/20 09:00 03/27/20 08:59 Lorazepam (Ativan 2mg/ml 1ml) 0.5 mg Q4H PRN IV For Anxiety 02/25/20 10:00 03/03/20 09:59 Losartan Potassium (Cozaar) 100 mg DAILY ORAL 02/26/20 09:00 03/27/20 08:59 Methylprednisolone Sodium Succinate (Solu-MEDROL) 60 mg EVERY 6 HOURS IV 02/25/20 12:00 05/25/20 11:59 02/25/20 12:51 Montelukast Sodium (Singulair) 10 mg DAILY ORAL 02/26/20 09:00 05/26/20 08:59 Nitroglycerin (Ntg) 0.4 mg Q5M X 3 DOSES PRN SL Prn Chest Pain 02/25/20 10:00 03/26/20 09:59 Ondansetron HCl (Zofran) 4 mg Q6H PRN IVP Nausea & Vomiting 02/25/20 10:00 03/26/20 09:59 Phenytoin (Dilantin) 100 mg Q8HR ORAL 02/25/20 22:00 03/26/20 21:59 Piperacillin Sod/ Tazobactam Sod 3.375 gm/Sodium Chloride 110 ml @ 27.5 mls/hr EVERY 8 HOURS IVPB 02/25/20 22:00 03/01/20 21:59 Pregabalin (Lyrica) 50 mg DAILY ORAL 02/26/20 09:00 03/27/20 08:59 Promethazine HCl/ Codeine (Phenergan with Codeine) 5 ml Q6H PRN ORAL cough 02/25/20 10:00 03/26/20 09:59 Temazepam (Restoril) 15 mg HSPRN PRN ORAL Insomnia 02/25/20 10:00 03/03/20 09:59 Theophylline (Fabrice-Dur) 100 mg EVERY 12 HOURS ORAL 02/25/20 21:00 05/25/20 20:59 Assessment/Plan Problem List: (1) Acute asthma exacerbation ICD Codes: J45.901 - Unspecified asthma with (acute) exacerbation SNOMED: 195534263 (2) Seizure disorder ICD Codes: G40.909 - Epilepsy, unspecified, not intractable, without status epilepticus SNOMED: 981335433 (3) CAD (coronary artery disease) ICD Codes: I25.10 - Atherosclerotic heart disease of [place] coronary artery without angina pectoris SNOMED: 98730496 (4) HTN (hypertension) ICD Codes: I10 - Essential (primary) hypertension SNOMED: 22139208 (5) GERD (gastroesophageal reflux disease) ICD Codes: K21.9 - Gastro-esophageal reflux disease without esophagitis SNOMED: 572994008 (6) Chronic back pain ICD Codes: M54.9 - Dorsalgia, unspecified; G89.29 - Other chronic pain SNOMED: 126386954 Assessment/Plan: respiratory treatment check sputum high dose steroids antitussives titrate fio2 to sat of 92% monitor BP seizure precaution dvt prohylaxis. Luis A Juares MD Feb 25, 2020 13:34
--- NOTE | 2020-02-25 13:45 | NUR ---
ED Nurse Note: Pt transferred to tele floor with all belongings.
--- NOTE | 2020-02-25 14:47 | NUR ---
NURSE NOTES: Admitted pt. from ED to tele floor per MD order. Received report from AMMY New. Patient AAO x4, anxious. No signs of distress. No pain reported. Breathing is shallow, regular on room air. Radial pulses palpable. Skin intact and warm to touch. cafeteria monitor placed. Left wrist IV 22 g saline locked, intact and patent. Rapid COVID completed in ED and resulted negative. Patient ambulates with personal walker. Seizure precautions in place. Pt. belonging list acknowledged and verified. Pt. medication box with multiple various unknown medications sent to Pharmacy with bag #[id number]. Bed low and locked, call light in reach, side rails x2, bed alarm on. All admission orders entered by Dr. Juares and acknowledged. Will continue with plan of care.
[2020-02-25 16:00] VITALS: BP 190/91
--- NOTE | 2020-02-25 16:00 | NUR ---
NURSE NOTES: Pt. aware medication box with prescriptions are with pharmacy. Pt. very agitated, verbally abusive, and posturing toward staff demanding pill box. Explained to pt. hospital policy surrounding prescriptions medications from home need to be kept with pharmacy. Pt. still not understanding. Reoritented pt. back to room and reassured medications safe. Aware box and prescriptions will be returned upon discharge. SKYLER Amos and Dr. Toure aware. Distraction provided.
--- NOTE | 2020-02-25 16:29 | History & Physical ---
History and Physical History & Physicial Dictated for Int Med-Dr Garcia no. [id number]. Hank Toure MD Feb 25, 2020 16:29
[2020-02-25] MEDS: Albuterol/Ipratropium 3ml neb HHN PRN ×2 (17:16→21:00)
[2020-02-25 18:46] VITALS: BP 166/69
--- NOTE | 2020-02-25 19:30 | NUR ---
HAND-OFF: Endorsed plan of care to AMMY Mendez. The pt. is in stable condition.
[2020-02-25 20:00] VITALS: BP 165/69
--- NOTE | 2020-02-25 20:00 | NUR ---
NURSE NOTES: Received patient report from AMMY Gonzalez. Patient shows no signs of pain at the time. She was asking for breathing treatment but it was not due until 2100. IV patent and flushed. There are no signs of erythema, infiltration, or bleeding. Bed is in the lowest position, call light within reach, side rails up x 3 and padded. Will continue to monitor.
--- NOTE | 2020-02-25 20:00 | History and Physical Report ---
DATE OF ADMISSION: 02/25/2020 CHIEF COMPLAINT: The patient is an 85-year-old female who presents with a chief complaint of shortness of breath. HISTORY OF PRESENT ILLNESS: Began two months ago, the patient began to experience shortness of breath. The patient has a long history of asthma and has been admitted to [facility] multiple times. The patient states the shortness of breath has gotten worse over the last 10 days. The patient states yesterday she got extremely short of breath. The patient denies fever. The patient does have a nonproductive cough. The patient denies wheezes. The patient has not had any fevers. The patient presented to [place] emergency room. The patient was admitted for shortness of breath to rule out COVID-19 versus pneumonia. REVIEW OF SYSTEMS: CONSTITUTIONAL: The patient denies weight loss or weight gain. The patient denies fevers or chills. HEENT: The patient denies ear or throat pain. The patient denies headache. CARDIOVASCULAR: The patient denies palpitations or chest pain. CHEST: The patient denies wheezes. The patient complains of shortness of breath as above. The patient complains of nonproductive cough. ABDOMEN: The patient denies nausea, vomiting, diarrhea, or constipation. GENITOURINARY: The patient denies dysuria or increased frequency of urination. NEUROMUSCULAR: The patient denies seizures or generalized weakness. PAST MEDICAL HISTORY: Significant for: 1. Asthma. 2. History of hemorrhagic cerebrovascular accident. 3. Hypertension. 4. Hypercholesterolemia. 5. Gastroesophageal reflux disease. 6. Seizure disorder. 7. Coronary artery disease, status post stent placement in November of 2017. PAST SURGICAL HISTORY: Significant for: 1. Appendectomy. 2. Cardiac catheterization in November of 2017 with stent placement. CURRENT MEDICATIONS: 1. Albuterol metered-dose inhaler two puffs p.o. q.i.d. p.r.n. 2. Amlodipine 2.5 mg p.o. daily. 3. Aspirin 81 mg p.o. daily. 4. Atorvastatin 40 mg p.o. at bedtime. 5. Clopidogrel 75 mg p.o. daily. 6. Lasix 40 mg p.o. daily. 7. Isosorbide mononitrate 30 mg p.o. daily. 8. Levocetirizine 5 mg p.o. daily. 9. Tradjenta 5 mg p.o. daily. 10. Losartan 100 mg p.o. daily. 11. Singulair 10 mg p.o. daily. 12. Dilantin 100 mg p.o. three times daily. 13. Prednisone 50 mg p.o. daily. 14. Lyrica 50 mg p.o. daily. ALLERGIES: No known drug allergies. SOCIAL HISTORY: The patient is single and lives alone. The patient denies tobacco or alcohol use. PHYSICAL EXAMINATION: VITAL SIGNS: Temperature 98.8, respirations 24, pulse 78, blood pressure 129/74, pulse oximetry 99% on 2 liters per nasal cannula. GENERAL: The patient is well-developed and well-nourished female, in no apparent distress. HEENT: Eyes, pupils are equal and responsive to light and accommodation. Extraocular movements are intact. NECK: Supple without lymphadenopathy. CHEST: Lungs are clear to auscultation bilaterally with poor air movement in bilateral bases, otherwise without wheezes or rales. CARDIOVASCULAR: Regular rhythm and rate. S1 and S2 normal without murmurs, rubs, or gallops. ABDOMEN: Soft, nontender, and nondistended. Positive bowel sounds. No evidence of hepatosplenomegaly. Currently, no rebound or guarding noted. EXTREMITIES: Negative for clubbing, cyanosis, or edema. RECTAL/GENITAL: Not performed. NEUROLOGIC: Cranial nerves II through XII are grossly intact without focal deficits. Motor strength is 5/5 bilaterally. Deep tendon reflexes are 2+ plantar. LABORATORY AND DIAGNOSTIC DATA: Chest x-ray revealed fractures of the right sixth and seventh ribs of undetermined age otherwise no acute disease. Laboratory studies, WBC 8.3, hemoglobin 14.3, hematocrit 44.2 platelets 216,000. Sodium 142, potassium 3.6, chloride 103, CO2 31, BUN 17, creatinine 0.5, glucose 111. Troponin 0.0. ASSESSMENT: This is a 85-year-old female. 1. Shortness of breath. 2. Fracture of the sixth and seventh right ribs. 3. Asthma. 4. Hypertension. 5. Hypercholesterolemia. 6. Esophageal reflux disease. 7. Seizure disorder. 8. Coronary artery disease. 9. History of hemorrhagic stroke. TREATMENT: 1. Shortness of breath/asthma. A Pulmonary consultation has been obtained with Dr. Luis A Juares. The patient has been placed empirically on albuterol nebulized q. 4 hours. The patient has also been placed on Zosyn for probable pneumonia. A COVID-19 swab is pending. We will follow recommendation of Pulmonary. 2. Hypertension. Continue amlodipine as above. 3. Hypercholesterolemia. 4. Gastroesophageal reflux disease. 5. Fracture of the sixth and seventh ribs. 6. Seizure disorder. Continue Dilantin as above. 7. Coronary artery disease. Continue Plavix as above. 8. History of hemorrhagic stroke. 9. Diabetes type 2. A NovoLog sliding scale has been instituted. Hank Toure M.D. DR: [place] JOB#: [id number] CC:
[2020-02-25] MEDS: Phenytoin 100mg cap ORAL SCH (21:36)
[2020-02-25] MEDS: Theophylline ER 100mg ORAL SCH (21:36)
[2020-02-25] MEDS: Atorvastatin 20mg tab ORAL SCH (21:36)
[2020-02-25] MEDS: Zoysn 3.37gm in NS 100ML IVPB SCH (21:36)
[2020-02-25] MEDS: Heparin 5000 units/ml inj SUBQ SCH (21:38)
[2020-02-25] MEDS ORDERED: Piperacillin/Tazobactam 2.25 GM in D5W 55 ML IV SCH (22:00)
[2020-02-26] VITALS: BP 165/81
[2020-02-26] MEDS: Solu-MEDROL 125mg Inj IV SCH ×4 (00:07→17:04)
[2020-02-26] MEDS: Promethazine/Codeine 5ml UD ORAL PRN ×3 (00:16→17:04)
[2020-02-26] MEDS: Albuterol/Ipratropium 3ml neb HHN PRN ×4 (00:55→22:39)
[2020-02-26 04:00] VITALS: BP 153/68
[2020-02-26] MEDS: Zoysn 3.37gm in NS 100ML IVPB SCH ×3 (05:40→21:43)
[2020-02-26] MEDS: Phenytoin 100mg cap ORAL SCH ×3 (05:40→21:41)
[2020-02-26] MEDS: NovoLOG Insulin Flexpen SUBQ SCH ×4 (07:07→21:42)
--- NOTE | 2020-02-26 07:34 | NUR ---
NURSE NOTES: Received patient from Nadya GIMENEZ sitting on her wheelchair, denies any pain at this time, no complain of shortness of breath at this time. Bed is in lowest position, brakes locked for safety. Call light is within reach. Will continue with the plan of care.
[2020-02-26 08:00] VITALS: BP 149/62
[2020-02-26] MEDS: Theophylline ER 100mg ORAL SCH ×2 (08:14→21:41)
[2020-02-26] MEDS: Lyrica 50mg cap ORAL SCH (08:17)
[2020-02-26] MEDS: Montelukast 10mg tablet ORAL SCH (08:17)
[2020-02-26] MEDS: Losartan 50mg tab ORAL SCH (08:18)
[2020-02-26] MEDS: Aspirin EC 81mg tab ORAL SCH (08:18)
[2020-02-26] MEDS: Furosemide 40mg tab ORAL SCH (08:19)
[2020-02-26] MEDS: Imdur 30mg tab ORAL SCH (08:19)
[2020-02-26] MEDS: Heparin 5000 units/ml inj SUBQ SCH ×2 (08:21→21:42)
--- NOTE | 2020-02-26 10:17 | NUR ---
CASE MANAGEMENT:REVIEW 85 YR OLD FEMALE WALKED IN TO ER CC: SOB, CHEST TIGHTNESS, HEADACHE,COUGH AND SWELLING SI: COPD EXACERBATION 98.7 103 35 156/81 100% ON RA GLUCOSE+111 IS: PLACED ON 2L/NC IV ZOSYN IV SOLUMEDROL DUONEB HHN [id number] X3 IV AZITHROMYCIN CHEST XRAY BLOOD CX CHEST XRAY COVID 19 : TO TELEMETRY UNIT DCP: FROM HOME Addendum: 02/26/20 at 1526 by PERRY GUZMAN LVN LVN INTERQUAL CRITERIA MET
[2020-02-26 12:00] VITALS: BP 125/68
--- NOTE | 2020-02-26 12:17 | Internal Med Progress Note ---
Subjective Date of Service: Feb 26, 2020 Physician Name Hank Toure Attending Physician Shlomo Garcia MD Current Medications Medications (Trade) Dose Ordered Sig/Mecca Route PRN Reason Start Time Stop Time Status Last Admin Dose Admin Albuterol/ Ipratropium (Albuterol/ Ipratropium) 3 ml Q4H PRN HHN dyspnea 02/25/20 10:00 03/01/20 09:59 02/26/20 08:41 Amlodipine Besylate (Norvasc) 2.5 mg DAILY ORAL 02/26/20 09:00 03/27/20 08:59 02/26/20 08:15 Aspirin (Ecotrin) 81 mg DAILY ORAL 02/26/20 09:00 04/11/20 08:59 02/26/20 08:18 Atorvastatin Calcium (Lipitor) 40 mg BEDTIME ORAL 02/25/20 21:00 05/25/20 20:59 02/25/20 21:36 Clopidogrel Bisulfate (Plavix) 75 mg DAILY ORAL 02/26/20 09:00 03/27/20 08:59 02/26/20 08:17 Dextrose (Dextrose 50%) 25 ml Q30M PRN IV Hypoglycemia 02/25/20 10:00 05/25/20 09:59 Dextrose (Dextrose 50%) 50 ml Q30M PRN IV Hypoglycemia 02/25/20 10:00 05/25/20 09:59 Furosemide (Lasix) 40 mg DAILY ORAL 02/26/20 09:00 03/27/20 08:59 02/26/20 08:19 Heparin Sodium (Porcine) (Heparin 5000 units/ml) 5,000 units EVERY 12 HOURS SUBQ 02/25/20 21:00 04/10/20 20:59 02/26/20 08:21 Hydralazine HCl (Apresoline) 10 mg Q4H PRN IV For High Blood Pressure 02/25/20 15:42 05/25/20 15:41 02/26/20 00:07 Insulin Aspart (NovoLOG) BEFORE MEALS AND HS SUBQ 02/25/20 11:30 05/25/20 11:29 02/26/20 12:13 Isosorbide Mononitrate (Imdur) 30 mg DAILY ORAL 02/26/20 09:00 03/27/20 08:59 02/26/20 08:19 Lorazepam (Ativan 2mg/ml 1ml) 0.5 mg Q4H PRN IV For Anxiety 02/25/20 10:00 03/03/20 09:59 Losartan Potassium (Cozaar) 100 mg DAILY ORAL 02/26/20 09:00 03/27/20 08:59 02/26/20 08:18 Methylprednisolone Sodium Succinate (Solu-MEDROL) 60 mg EVERY 6 HOURS IV 02/25/20 12:00 05/25/20 11:59 02/26/20 12:09 Montelukast Sodium (Singulair) 10 mg DAILY ORAL 02/26/20 09:00 05/26/20 08:59 02/26/20 08:17 Nitroglycerin (Ntg) 0.4 mg Q5M X 3 DOSES PRN SL Prn Chest Pain 02/25/20 10:00 03/26/20 09:59 Ondansetron HCl (Zofran) 4 mg Q6H PRN IVP Nausea & Vomiting 02/25/20 10:00 03/26/20 09:59 Phenytoin (Dilantin) 100 mg Q8HR ORAL 02/25/20 22:00 03/26/20 21:59 02/26/20 05:40 Piperacillin Sod/ Tazobactam Sod 3.375 gm/Sodium Chloride 110 ml @ 27.5 mls/hr EVERY 8 HOURS IVPB 02/25/20 22:00 03/01/20 21:59 02/26/20 05:40 Pregabalin (Lyrica) 50 mg DAILY ORAL 02/26/20 09:00 03/27/20 08:59 02/26/20 08:17 Promethazine HCl/ Codeine (Phenergan with Codeine) 5 ml Q6H PRN ORAL cough 02/25/20 10:00 03/26/20 09:59 02/26/20 05:49 Temazepam (Restoril) 15 mg HSPRN PRN ORAL Insomnia 02/25/20 10:00 03/03/20 09:59 Theophylline (Fabrice-Dur) 100 mg EVERY 12 HOURS ORAL 02/25/20 21:00 05/25/20 20:59 02/26/20 08:14 Allergies: Uncoded Allergies: Canned Food (Allergy, Unknown, 03/22/18) Nausea/Vomitting/Indigestion ROS Limited/Unobtainable: No Constitutional: Reports: no symptoms HEENT: Reports: no symptoms Cardiovascular: Reports: no symptoms Respiratory: Reports: shortness of breath Gastrointestinal/Abdominal: Reports: no symptoms Genitourinary: Reports: no symptoms Neurologic/Psychiatric: Reports: no symptoms Subjective 85 YO F admitted with shortness of breath. Now asthma exacerbation. Cover for Int Med-Dr Garcia Objective Last Vital Signs Date Time Temp Pulse Resp B/P (MAP) Pulse Ox O2 Delivery O2 Flow Rate FiO2 02/26/20 12:00 98.1 111 20 125/68 (87) 99 02/26/20 08:41 Room Air 21 02/26/20 08:41 3.0 Microbiology Date/Time Source Procedure Growth Status 02/25/20 08:37 Nasopharynx SARS-CoV-2 RdRp Gene Assay - Final Complete Intake and Output 02/25/20 02/26/20 19:00 07:00 Intake Total 110 ml 120 ml Balance 110 ml 120 ml Intake Oral 0 ml 120 ml IV Total 110 ml # Voids 2 2 Objective PHYSICAL EXAMINATION: GENERAL: The patient is well-developed and well-nourished female, in no apparent distress. HEENT: Eyes, pupils are equal and responsive to light and accommodation. Extraocular movements are intact. NECK: Supple without lymphadenopathy. CHEST: Lungs are clear to auscultation bilaterally with poor air movement in bilateral bases, otherwise without wheezes or rales. CARDIOVASCULAR: Regular rhythm and rate. S1 and S2 normal without murmurs, rubs, or gallops. ABDOMEN: Soft, nontender, and nondistended. Positive bowel sounds. No evidence of hepatosplenomegaly. Currently, no rebound or guarding noted. EXTREMITIES: Negative for clubbing, cyanosis, or edema. RECTAL/GENITAL: Not performed. NEUROLOGIC: Cranial nerves II through XII are grossly intact without focal deficits. Motor strength is 5/5 bilaterally. Deep tendon reflexes are 2+ plantar. Assessment/Plan Assessment/Plan ASSESSMENT: This is a 85-year-old female. 1. Shortness of breath. 2. Fracture of the sixth and seventh right ribs. 3. Asthma. 4. Hypertension. 5. Hypercholesterolemia. 6. Esophageal reflux disease. 7. Seizure disorder. 8. Coronary artery disease. 9. History of hemorrhagic stroke. TREATMENT: 1. Shortness of breath/asthma. A Pulmonary consultation has been obtained with Dr. Luis A Juares. The patient has been started on albuterol nebulized q. 4 hours and IV solumedrol. The patient has also been placed on Zosyn for probable pneumonia. A COVID-19 swab is pending. We will follow recommendation of Pulmonary. 2. Hypertension. Continue amlodipine as above. 3. Hypercholesterolemia. 4. Gastroesophageal reflux disease. 5. Fracture of the sixth and seventh ribs. 6. Seizure disorder. Continue Dilantin as above. 7. Coronary artery disease. Continue Plavix as above. 8. History of hemorrhagic stroke. 9. Diabetes type 2. A NovoLog sliding scale has been instituted. Hank Toure MD Feb 26, 2020 12:17
--- NOTE | 2020-02-26 12:40 | NUR ---
NURSE NOTES: Renee from pharmacy called to find out why lab was not drawn on patient, inquire with laboratory personnel and was told that patient refused. Discussed with pharmacy and encouraged blood draw. time study technician, Birdie came to re-draw blood, patient still refused, explain the risks and benefits and patient continues to refuse. Notified pharmacy - Renee. Will continue to monitor.
--- NOTE | 2020-02-26 13:22 | Pulmonology Progress Note ---
Subjective ROS Limited/Unobtainable: No Interval Events: doing better, less short of breath Allergies: Uncoded Allergies: Canned Food (Allergy, Unknown, 03/22/18) Nausea/Vomitting/Indigestion Objective Last 24 Hour Vital Signs Date Time Temp Pulse Resp B/P (MAP) Pulse Ox O2 Delivery O2 Flow Rate FiO2 02/26/20 12:00 120 02/26/20 12:00 98.1 111 20 125/68 (87) 99 02/26/20 08:41 98 20 100 Room Air 21 100 22 98 02/26/20 08:41 100 22 98 Room Air 21 02/26/20 08:41 98 Nasal Cannula 3.0 32 02/26/20 08:19 149/62 02/26/20 08:18 149/62 02/26/20 08:15 104 149/62 02/26/20 08:00 112 02/26/20 08:00 98.1 112 20 149/62 (91) 96 02/26/20 04:00 97.9 109 22 153/68 (96) 96 02/26/20 01:06 107 20 99 Nasal Cannula 3.0 32 02/26/20 00:55 107 20 95 Nasal Cannula 3.0 32 02/26/20 00:07 165/81 02/26/20 00:00 98.1 100 20 165/81 (109) 95 02/26/20 00:00 107 02/25/20 21:13 98 20 99 Nasal Cannula 3.0 32 02/25/20 21:00 99 20 94 Room Air 21 02/25/20 20:00 102 02/25/20 20:00 97.8 100 20 165/69 (101) 95 02/25/20 19:55 100 22 98 Nasal Cannula 3.0 32 02/25/20 19:55 98 Nasal Cannula 3.0 32 02/25/20 18:46 100 166/69 (101) 02/25/20 17:36 190/91 02/25/20 16:10 86 20 99 Room Air 21 81 20 98 02/25/20 16:00 98.1 93 18 190/91 (124) 95 02/25/20 16:00 108 02/25/20 14:22 Room Air 02/25/20 14:15 Room Air 02/25/20 13:45 98.9 87 26 130/88 99 Room Air Intake and Output 02/25/20 02/26/20 19:00 07:00 Intake Total 110 ml 120 ml Balance 110 ml 120 ml Intake Oral 0 ml 120 ml IV Total 110 ml # Voids 2 2 General Appearance: WD/WN HEENT: normocephalic Respiratory: rhonchi - left, rhonchi - right, expiratory wheezing Cardiovascular: normal peripheral pulses, normal rate Abdomen: normal bowel sounds, soft, non tender Genitourinary: normal external genitalia Neurologic: no motor/sensory deficits Lymphatic: no neck adenopathy Microbiology Date/Time Source Procedure Growth Status 02/25/20 08:37 Nasopharynx SARS-CoV-2 RdRp Gene Assay - Final Complete Current Medications Medications (Trade) Dose Ordered Sig/Mecca Route PRN Reason Start Time Stop Time Status Last Admin Dose Admin Albuterol/ Ipratropium (Albuterol/ Ipratropium) 3 ml Q4H PRN HHN dyspnea 02/25/20 10:00 03/01/20 09:59 02/26/20 08:41 Amlodipine Besylate (Norvasc) 2.5 mg DAILY ORAL 02/26/20 09:00 03/27/20 08:59 02/26/20 08:15 Aspirin (Ecotrin) 81 mg DAILY ORAL 02/26/20 09:00 04/11/20 08:59 02/26/20 08:18 Atorvastatin Calcium (Lipitor) 40 mg BEDTIME ORAL 02/25/20 21:00 05/25/20 20:59 02/25/20 21:36 Clopidogrel Bisulfate (Plavix) 75 mg DAILY ORAL 02/26/20 09:00 03/27/20 08:59 02/26/20 08:17 Dextrose (Dextrose 50%) 25 ml Q30M PRN IV Hypoglycemia 02/25/20 10:00 05/25/20 09:59 Dextrose (Dextrose 50%) 50 ml Q30M PRN IV Hypoglycemia 02/25/20 10:00 05/25/20 09:59 Furosemide (Lasix) 40 mg DAILY ORAL 02/26/20 09:00 03/27/20 08:59 02/26/20 08:19 Heparin Sodium (Porcine) (Heparin 5000 units/ml) 5,000 units EVERY 12 HOURS SUBQ 02/25/20 21:00 04/10/20 20:59 02/26/20 08:21 Hydralazine HCl (Apresoline) 10 mg Q4H PRN IV For High Blood Pressure 02/25/20 15:42 05/25/20 15:41 02/26/20 00:07 Insulin Aspart (NovoLOG) BEFORE MEALS AND HS SUBQ 02/25/20 11:30 05/25/20 11:29 02/26/20 12:13 Isosorbide Mononitrate (Imdur) 30 mg DAILY ORAL 02/26/20 09:00 03/27/20 08:59 02/26/20 08:19 Lorazepam (Ativan 2mg/ml 1ml) 0.5 mg Q4H PRN IV For Anxiety 02/25/20 10:00 03/03/20 09:59 Losartan Potassium (Cozaar) 100 mg DAILY ORAL 02/26/20 09:00 03/27/20 08:59 02/26/20 08:18 Methylprednisolone Sodium Succinate (Solu-MEDROL) 60 mg EVERY 6 HOURS IV 02/25/20 12:00 05/25/20 11:59 02/26/20 12:09 Montelukast Sodium (Singulair) 10 mg DAILY ORAL 02/26/20 09:00 05/26/20 08:59 02/26/20 08:17 Nitroglycerin (Ntg) 0.4 mg Q5M X 3 DOSES PRN SL Prn Chest Pain 02/25/20 10:00 03/26/20 09:59 Ondansetron HCl (Zofran) 4 mg Q6H PRN IVP Nausea & Vomiting 02/25/20 10:00 03/26/20 09:59 Phenytoin (Dilantin) 100 mg Q8HR ORAL 02/25/20 22:00 03/26/20 21:59 02/26/20 05:40 Piperacillin Sod/ Tazobactam Sod 3.375 gm/Sodium Chloride 110 ml @ 27.5 mls/hr EVERY 8 HOURS IVPB 02/25/20 22:00 03/01/20 21:59 02/26/20 05:40 Pregabalin (Lyrica) 50 mg DAILY ORAL 02/26/20 09:00 03/27/20 08:59 02/26/20 08:17 Promethazine HCl/ Codeine (Phenergan with Codeine) 5 ml Q6H PRN ORAL cough 02/25/20 10:00 03/26/20 09:59 02/26/20 05:49 Temazepam (Restoril) 15 mg HSPRN PRN ORAL Insomnia 02/25/20 10:00 03/03/20 09:59 Theophylline (Fabrice-Dur) 100 mg EVERY 12 HOURS ORAL 02/25/20 21:00 05/25/20 20:59 02/26/20 08:14 Assessment/Plan Problems: (1) Acute asthma exacerbation (2) Seizure disorder (3) CAD (coronary artery disease) (4) HTN (hypertension) (5) GERD (gastroesophageal reflux disease) (6) Chronic back pain Assessment/Plan COVID negative times one respiratory treatment check sputum high dose steroids, keep the same dose for today antitussives titrate fio2 to sat of 92% monitor BP seizure precaution dvt prohylaxis Luis A Juares MD Feb 26, 2020 13:22
[2020-02-26 16:00] VITALS: BP 124/68
--- NOTE | 2020-02-26 19:30 | NUR ---
NURSE NOTES: Received pt from AMMY Gonzalez. pt is observed sitting at bedside, AO X4, able to make needs known, denies pain at this time. pt is currently on room air; tolerating well; no s/sx of respiratory distress noted at this time. diagnostic cardiac sonographer shows ST with HR at 108. no acute cardiac distress noted. endorsed that pt is ambulatory with steady gait, walker is at bedside. LW 22 G IV site is patent and intact, asymptomatic; currently running prescribed Zosyn as ordered per MD. pt requesting stool softener at this time d/t lack of bowel movement for 2 days. will inform MD. bed in lowest position and locked, siderails up X2, call light within reach.will continue to monitor.
--- NOTE | 2020-02-26 19:34 | NUR ---
HAND-OFF: Report given to Harriet GIMENEZ. Patient is in stable condition.
[2020-02-26 20:00] VITALS: BP 133/73
--- NOTE | 2020-02-26 20:00 | NUR ---
NURSE NOTES: left message for Dr. Juares requesting stool softener. awaiting call back.
--- NOTE | 2020-02-26 21:30 | NUR ---
NURSE NOTES: left follow up message for Dr. Juares regarding stool softener for pt. awaiting call back.
[2020-02-26] MEDS: Atorvastatin 20mg tab ORAL SCH (21:40)
--- NOTE | 2020-02-26 21:40 | NUR ---
NURSE NOTES: received call back from Dr. Juares with new orders. will carry out.
[2020-02-26] MEDS ORDERED: Docusate 100mg cap ORAL PRN (22:15)
[2020-02-27] VITALS: BP 125/65
[2020-02-27] MEDS: Solu-MEDROL 125mg Inj IV SCH ×2 (00:14→06:21)
[2020-02-27 04:00] VITALS: BP 131/75
[2020-02-27] MEDS: Zoysn 3.37gm in NS 100ML IVPB SCH ×3 (06:19→22:56)
[2020-02-27] MEDS: Promethazine/Codeine 5ml UD ORAL PRN ×3 (06:19→19:59)
[2020-02-27] MEDS: Phenytoin 100mg cap ORAL SCH ×3 (06:21→22:55)
[2020-02-27] MEDS: NovoLOG Insulin Flexpen SUBQ SCH ×4 (06:30→21:20)
--- NOTE | 2020-02-27 07:30 | NUR ---
NURSE NOTES: Received pt from AMMY Larios, pt is awake and alert, pt is in RA, pt complained SOB, RT is doing breathing treatment. pt is on continues heart monitoring, pt has intact iv access L wrist 22G Zosyn is running. Pt is eating breakfast by observation. No complain of pain at this moment. all needs attended, bed is locked and is in the lowest position, call light within easy reach. will continue to monitor.
--- NOTE | 2020-02-27 07:42 | NUR ---
HAND-OFF: Report given to AMMY Celis. endorsed plan of care.
[2020-02-27 08:00] VITALS: BP 169/79
[2020-02-27] MEDS: Montelukast 10mg tablet ORAL SCH (10:01)
[2020-02-27] MEDS: Losartan 50mg tab ORAL SCH (10:01)
[2020-02-27] MEDS: Lyrica 50mg cap ORAL SCH (10:02)
[2020-02-27] MEDS: Aspirin EC 81mg tab ORAL SCH (10:02)
[2020-02-27] MEDS: Furosemide 40mg tab ORAL SCH (10:02)
[2020-02-27] MEDS: Imdur 30mg tab ORAL SCH (10:02)
[2020-02-27] MEDS: Theophylline ER 100mg ORAL SCH ×2 (10:02→21:07)
[2020-02-27] MEDS: Docusate 100mg cap ORAL SCH ×3 (10:03→18:00)
[2020-02-27] MEDS: Heparin 5000 units/ml inj SUBQ SCH ×2 (10:04→21:19)
[2020-02-27] MEDS: Albuterol/Ipratropium 3ml neb HHN PRN ×4 (10:17→23:35)
[2020-02-27] MEDS ORDERED: MEDROL DOSEPAK4 MG ORAL (11:38)
--- NOTE | 2020-02-27 11:40 | Pulmonology Progress Note ---
Subjective ROS Limited/Unobtainable: No Interval Events: doing better, less short of breath Respiratory: Reports: dyspnea on exertion Cardiovascular: Reports: no symptoms Gastrointestinal/Abdominal: Reports: no symptoms Allergies: Uncoded Allergies: Canned Food (Allergy, Unknown, 03/22/18) Nausea/Vomitting/Indigestion Objective Last 24 Hour Vital Signs Date Time Temp Pulse Resp B/P (MAP) Pulse Ox O2 Delivery O2 Flow Rate FiO2 02/27/20 10:02 169/79 02/27/20 10:01 162/79 02/27/20 10:01 105 162/79 02/27/20 09:00 Room Air 02/27/20 08:00 97.7 105 18 169/79 (109) 96 02/27/20 07:42 97 Room Air 21 02/27/20 07:42 95 20 100 Room Air 21 91 20 97 02/27/20 07:42 91 20 97 Room Air 21 02/27/20 07:30 93 02/27/20 04:00 94 02/27/20 04:00 96.6 102 18 131/75 (93) 96 02/27/20 00:00 96.9 100 18 125/65 (85) 95 02/27/20 00:00 102 02/26/20 22:40 99 20 100 Room Air 21 98 20 99 02/26/20 21:00 Room Air 02/26/20 20:00 109 02/26/20 20:00 97.5 108 18 133/73 (93) 94 02/26/20 19:54 98 20 99 Room Air 21 02/26/20 19:54 99 Nasal Cannula 3.0 32 02/26/20 16:00 98.1 116 20 124/68 (86) 98 02/26/20 16:00 116 02/26/20 16:00 101 20 100 Room Air 21 99 20 95 02/26/20 12:00 120 02/26/20 12:00 98.1 111 20 125/68 (87) 99 Intake and Output 02/26/20 02/27/20 19:00 07:00 Intake Total 110.0 ml Balance 110.0 ml IV Total 110.0 ml # Voids 2 2 General Appearance: WD/WN HEENT: normocephalic Respiratory: chest wall non-tender, rhonchi - left, rhonchi - right, expiratory wheezing Cardiovascular: normal peripheral pulses, normal rate Abdomen: normal bowel sounds, soft, non tender Genitourinary: normal external genitalia Neurologic: no motor/sensory deficits Lymphatic: no neck adenopathy Microbiology Date/Time Source Procedure Growth Status 02/25/20 08:12 Blood Blood Culture - Preliminary NO GROWTH AFTER 24 HOURS Resulted 02/25/20 08:12 Blood Blood Culture - Preliminary NO GROWTH AFTER 24 HOURS Resulted 02/25/20 08:37 Nasopharynx SARS-CoV-2 RdRp Gene Assay - Final Complete Current Medications Medications (Trade) Dose Ordered Sig/Mecca Route PRN Reason Start Time Stop Time Status Last Admin Dose Admin Albuterol/ Ipratropium (Albuterol/ Ipratropium) 3 ml Q4H PRN HHN dyspnea 02/25/20 10:00 03/01/20 09:59 02/27/20 10:17 Amlodipine Besylate (Norvasc) 5 mg Q12HR ORAL 02/27/20 21:00 03/28/20 20:59 Aspirin (Ecotrin) 81 mg DAILY ORAL 02/26/20 09:00 04/11/20 08:59 02/27/20 10:02 Atorvastatin Calcium (Lipitor) 40 mg BEDTIME ORAL 02/25/20 21:00 05/25/20 20:59 02/26/20 21:40 Clopidogrel Bisulfate (Plavix) 75 mg DAILY ORAL 02/26/20 09:00 03/27/20 08:59 02/27/20 10:01 Dextrose (Dextrose 50%) 25 ml Q30M PRN IV Hypoglycemia 02/25/20 10:00 05/25/20 09:59 Dextrose (Dextrose 50%) 50 ml Q30M PRN IV Hypoglycemia 02/25/20 10:00 05/25/20 09:59 Docusate Sodium (Colace) 100 mg TID ORAL 02/27/20 09:00 03/27/20 22:14 02/27/20 10:03 Furosemide (Lasix) 40 mg DAILY ORAL 02/26/20 09:00 03/27/20 08:59 02/27/20 10:02 Heparin Sodium (Porcine) (Heparin 5000 units/ml) 5,000 units EVERY 12 HOURS SUBQ 02/25/20 21:00 04/10/20 20:59 02/27/20 10:04 Hydralazine HCl (Apresoline) 10 mg Q4H PRN IV For High Blood Pressure 02/25/20 15:42 05/25/20 15:41 02/26/20 00:07 Insulin Aspart (NovoLOG) BEFORE MEALS AND HS SUBQ 02/25/20 11:30 05/25/20 11:29 02/26/20 21:42 Isosorbide Mononitrate (Imdur) 30 mg DAILY ORAL 02/26/20 09:00 03/27/20 08:59 02/27/20 10:02 Lorazepam (Ativan 2mg/ml 1ml) 0.5 mg Q4H PRN IV For Anxiety 02/25/20 10:00 03/03/20 09:59 Losartan Potassium (Cozaar) 100 mg DAILY ORAL 02/26/20 09:00 03/27/20 08:59 02/27/20 10:01 Methylprednisolone Sodium Succinate (Solu-MEDROL) 60 mg DAILY IV 02/28/20 09:00 05/25/20 11:59 Montelukast Sodium (Singulair) 10 mg DAILY ORAL 02/26/20 09:00 05/26/20 08:59 02/27/20 10:01 Nitroglycerin (Ntg) 0.4 mg Q5M X 3 DOSES PRN SL Prn Chest Pain 02/25/20 10:00 03/26/20 09:59 Ondansetron HCl (Zofran) 4 mg Q6H PRN IVP Nausea & Vomiting 02/25/20 10:00 03/26/20 09:59 Phenytoin (Dilantin) 100 mg Q8HR ORAL 02/25/20 22:00 03/26/20 21:59 02/27/20 06:21 Piperacillin Sod/ Tazobactam Sod 3.375 gm/Sodium Chloride 110 ml @ 27.5 mls/hr EVERY 8 HOURS IVPB 02/25/20 22:00 03/01/20 21:59 02/27/20 06:19 Polyethylene Glycol (Miralax) 17 gm BEDTIME ORAL 02/27/20 21:00 03/28/20 20:59 Pregabalin (Lyrica) 50 mg DAILY ORAL 02/26/20 09:00 03/27/20 08:59 02/27/20 10:02 Promethazine HCl/ Codeine (Phenergan with Codeine) 5 ml Q6H PRN ORAL cough 02/25/20 10:00 03/26/20 09:59 02/27/20 06:19 Temazepam (Restoril) 15 mg HSPRN PRN ORAL Insomnia 02/25/20 10:00 03/03/20 09:59 Theophylline (Fabrice-Dur) 100 mg EVERY 12 HOURS ORAL 02/25/20 21:00 05/25/20 20:59 02/27/20 10:02 Assessment/Plan Problems: (1) Acute asthma exacerbation (2) Seizure disorder (3) CAD (coronary artery disease) (4) HTN (hypertension) (5) GERD (gastroesophageal reflux disease) (6) Chronic back pain Assessment/Plan less short of breath COVID negative times one respiratory treatment check sputum high dose steroids, change to QD antitussives titrate fio2 to sat of 92% monitor BP seizure precaution dvt prohylaxis DC papers done for tomorrow Luis A Juares MD Feb 27, 2020 11:40
[2020-02-27 12:00] VITALS: BP 142/78
[2020-02-27 16:00] VITALS: BP 121/69
--- NOTE | 2020-02-27 16:43 | Internal Med Progress Note ---
Subjective Date of Service: Feb 27, 2020 Physician Name TejalHank Attending Physician Shlomo Garcia MD Current Medications Medications (Trade) Dose Ordered Sig/Mecca Route PRN Reason Start Time Stop Time Status Last Admin Dose Admin Albuterol/ Ipratropium (Albuterol/ Ipratropium) 3 ml Q4H PRN HHN dyspnea 02/25/20 10:00 03/01/20 09:59 02/27/20 13:53 Amlodipine Besylate (Norvasc) 5 mg Q12HR ORAL 02/27/20 21:00 03/28/20 20:59 Aspirin (Ecotrin) 81 mg DAILY ORAL 02/26/20 09:00 04/11/20 08:59 02/27/20 10:02 Atorvastatin Calcium (Lipitor) 40 mg BEDTIME ORAL 02/25/20 21:00 05/25/20 20:59 02/26/20 21:40 Clopidogrel Bisulfate (Plavix) 75 mg DAILY ORAL 02/26/20 09:00 03/27/20 08:59 02/27/20 10:01 Dextrose (Dextrose 50%) 25 ml Q30M PRN IV Hypoglycemia 02/25/20 10:00 05/25/20 09:59 Dextrose (Dextrose 50%) 50 ml Q30M PRN IV Hypoglycemia 02/25/20 10:00 05/25/20 09:59 Docusate Sodium (Colace) 100 mg TID ORAL 02/27/20 09:00 03/27/20 22:14 02/27/20 10:03 Furosemide (Lasix) 40 mg DAILY ORAL 02/26/20 09:00 03/27/20 08:59 02/27/20 10:02 Heparin Sodium (Porcine) (Heparin 5000 units/ml) 5,000 units EVERY 12 HOURS SUBQ 02/25/20 21:00 04/10/20 20:59 02/27/20 10:04 Hydralazine HCl (Apresoline) 10 mg Q4H PRN IV For High Blood Pressure 02/25/20 15:42 05/25/20 15:41 02/26/20 00:07 Insulin Aspart (NovoLOG) BEFORE MEALS AND HS SUBQ 02/25/20 11:30 05/25/20 11:29 02/26/20 21:42 Isosorbide Mononitrate (Imdur) 30 mg DAILY ORAL 02/26/20 09:00 03/27/20 08:59 02/27/20 10:02 Lorazepam (Ativan 2mg/ml 1ml) 0.5 mg Q4H PRN IV For Anxiety 02/25/20 10:00 03/03/20 09:59 Losartan Potassium (Cozaar) 100 mg DAILY ORAL 02/26/20 09:00 03/27/20 08:59 02/27/20 10:01 Methylprednisolone Sodium Succinate (Solu-MEDROL) 60 mg DAILY IV 02/28/20 09:00 05/25/20 11:59 Montelukast Sodium (Singulair) 10 mg DAILY ORAL 02/26/20 09:00 05/26/20 08:59 02/27/20 10:01 Nitroglycerin (Ntg) 0.4 mg Q5M X 3 DOSES PRN SL Prn Chest Pain 02/25/20 10:00 03/26/20 09:59 Ondansetron HCl (Zofran) 4 mg Q6H PRN IVP Nausea & Vomiting 02/25/20 10:00 03/26/20 09:59 Phenytoin (Dilantin) 100 mg Q8HR ORAL 02/25/20 22:00 03/26/20 21:59 02/27/20 13:23 Piperacillin Sod/ Tazobactam Sod 3.375 gm/Sodium Chloride 110 ml @ 27.5 mls/hr EVERY 8 HOURS IVPB 02/25/20 22:00 03/01/20 21:59 02/27/20 13:23 Polyethylene Glycol (Miralax) 17 gm BEDTIME ORAL 02/27/20 21:00 03/28/20 20:59 Pregabalin (Lyrica) 50 mg DAILY ORAL 02/26/20 09:00 03/27/20 08:59 02/27/20 10:02 Promethazine HCl/ Codeine (Phenergan with Codeine) 5 ml Q6H PRN ORAL cough 02/25/20 10:00 03/26/20 09:59 02/27/20 14:24 Temazepam (Restoril) 15 mg HSPRN PRN ORAL Insomnia 02/25/20 10:00 03/03/20 09:59 Theophylline (Fabrice-Dur) 100 mg EVERY 12 HOURS ORAL 02/25/20 21:00 05/25/20 20:59 02/27/20 10:02 Allergies: Uncoded Allergies: Canned Food (Allergy, Unknown, 03/22/18) Nausea/Vomitting/Indigestion ROS Limited/Unobtainable: No Constitutional: Reports: no symptoms HEENT: Reports: no symptoms Cardiovascular: Reports: no symptoms Respiratory: Reports: shortness of breath Gastrointestinal/Abdominal: Reports: no symptoms Genitourinary: Reports: no symptoms Neurologic/Psychiatric: Reports: no symptoms Subjective 85 YO F admitted with shortness of breath. Now asthma exacerbation. Cover for Int Med-Dr Garcia Objective Last Vital Signs Date Time Temp Pulse Resp B/P (MAP) Pulse Ox O2 Delivery O2 Flow Rate FiO2 02/27/20 13:45 107 20 100 Nasal Cannula 28 102 20 98 02/27/20 12:00 97.9 142/78 (99) 02/26/20 19:54 3.0 Microbiology Date/Time Source Procedure Growth Status 02/25/20 08:12 Blood Blood Culture - Preliminary NO GROWTH AFTER 24 HOURS Resulted 02/25/20 08:12 Blood Blood Culture - Preliminary NO GROWTH AFTER 24 HOURS Resulted 02/25/20 08:37 Nasopharynx SARS-CoV-2 RdRp Gene Assay - Final Complete Intake and Output 02/26/20 02/27/20 19:00 07:00 Intake Total 110.0 ml Balance 110.0 ml IV Total 110.0 ml # Voids 2 2 Objective PHYSICAL EXAMINATION: GENERAL: The patient is well-developed and well-nourished female, in no apparent distress. HEENT: Eyes, pupils are equal and responsive to light and accommodation. Extraocular movements are intact. NECK: Supple without lymphadenopathy. CHEST: Lungs are clear to auscultation bilaterally with poor air movement in bilateral bases, otherwise without wheezes or rales. CARDIOVASCULAR: Regular rhythm and rate. S1 and S2 normal without murmurs, rubs, or gallops. ABDOMEN: Soft, nontender, and nondistended. Positive bowel sounds. No evidence of hepatosplenomegaly. Currently, no rebound or guarding noted. EXTREMITIES: Negative for clubbing, cyanosis, or edema. RECTAL/GENITAL: Not performed. NEUROLOGIC: Cranial nerves II through XII are grossly intact without focal deficits. Motor strength is 5/5 bilaterally. Deep tendon reflexes are 2+ plantar. Assessment/Plan Assessment/Plan ASSESSMENT: This is a 85-year-old female. 1. Shortness of breath. 2. Fracture of the sixth and seventh right ribs. 3. Asthma. 4. Hypertension. 5. Hypercholesterolemia. 6. Esophageal reflux disease. 7. Seizure disorder. 8. Coronary artery disease. 9. History of hemorrhagic stroke. TREATMENT: 1. Shortness of breath/asthma. A Pulmonary consultation has been obtained with Dr. Luis A Juares. The patient has been started on albuterol nebulized q. 4 hours and IV solumedrol. The patient has also been placed on Zosyn for probable pneumonia. A rapid COVID-19 swab = neg. We will follow recommendation of Pulmonary. 2. Hypertension. Continue amlodipine as above. 3. Hypercholesterolemia. 4. Gastroesophageal reflux disease. 5. Fracture of the sixth and seventh ribs. 6. Seizure disorder. Continue Dilantin as above. 7. Coronary artery disease. Continue Plavix as above. 8. History of hemorrhagic stroke. 9. Diabetes type 2. A NovoLog sliding scale has been instituted. Hank Toure MD Feb 27, 2020 16:43
--- NOTE | 2020-02-27 19:33 | NUR ---
NURSE NOTES: Received hand-off report from AMMY Celis. Patient in stable condition, IV site on left wrist 22g intact, no redness, no leaking, no tenderness. Cardiac leads in place, machine repair person working, bed in lowest and locked position, bed alarm activated, yellow socks on, call light within reach. Patient had some shortness of breath and RT came by to give breathing treatment. Oxygen saturation at 94%.
--- NOTE | 2020-02-27 19:33 | NUR ---
HAND-OFF: Report given to AMMY FLOWERS. Pt is awake and stable, endorsed plan of care. Endorsed to F/U for D/C.
[2020-02-27 20:00] VITALS: BP 152/81
[2020-02-27] MEDS ORDERED: Miralax 17gm pkt ORAL SCH (21:00)
[2020-02-27] MEDS: Atorvastatin 20mg tab ORAL SCH (21:07)
[2020-02-28] VITALS: BP 129/75
[2020-02-28 04:00] VITALS: BP 150/89
[2020-02-28] MEDS: Zoysn 3.37gm in NS 100ML IVPB SCH (05:44)
[2020-02-28] MEDS: Phenytoin 100mg cap ORAL SCH (05:44)
[2020-02-28] MEDS: NovoLOG Insulin Flexpen SUBQ SCH ×2 (05:45→11:30)
[2020-02-28 06:30] VITALS: BP 169/95
[2020-02-28] MEDS: Promethazine/Codeine 5ml UD ORAL PRN (06:42)
--- NOTE | 2020-02-28 07:44 | NUR ---
NURSE NOTES: Received report from AMMY Mariee. Patient AAO x4. No signs of pain or distress. Breathing regular and unlabored on room air. L wrist 22 g infusing vancomycin. No signs of redness or infiltration. Bed low and locked, call light in reach, bed alarm on, side rails x3. Will continue to monitor.
--- NOTE | 2020-02-28 07:44 | NUR ---
HAND-OFF: Report given to AMMY Carter. Plan of care endorsed. Patient in stable condition. Cardiac leads in place, equipment monitor phototypesetting working, bed alarm activated, bed in lowest and locked position. Patient alert and orient x4.
[2020-02-28 08:00] VITALS: BP 154/72
[2020-02-28] MEDS ORDERED: Solu-MEDROL 125mg Inj IV SCH (09:00)
[2020-02-28] MEDS: Imdur 30mg tab ORAL SCH (09:16)
[2020-02-28] MEDS: Losartan 50mg tab ORAL SCH (09:16)
[2020-02-28] MEDS: Lyrica 50mg cap ORAL SCH (09:16)
[2020-02-28] MEDS: Aspirin EC 81mg tab ORAL SCH (09:16)
[2020-02-28] MEDS: Theophylline ER 100mg ORAL SCH (09:16)
[2020-02-28] MEDS: Furosemide 40mg tab ORAL SCH (09:17)
[2020-02-28] MEDS: Montelukast 10mg tablet ORAL SCH (09:17)
[2020-02-28] MEDS: Heparin 5000 units/ml inj SUBQ SCH (09:21)
[2020-02-28] MEDS: Docusate 100mg cap ORAL SCH (09:22)
[2020-02-28 12:00] VITALS: BP 151/83
--- NOTE | 2020-02-28 12:05 | NUR ---
CASE MANAGEMENT:REVIEW 02/28/20 SI: ACUTE ASTHMA EXACERBATION CAD. CHRONIC BACK PAIN. COVID NOT DETECTED 96.6 105 19 154/72 95% ON RA IS: IV SOLUMEDROL QD IV ZOSYN Q8HRS NORVASC PO Q12 ASA PO QD PLAVIX PO QD LASIX PO QD IMDUR PO QD COZAAR PO QD SINGULAR PO QD LYRICA PO QD DILANTIN PO Q8HRS HEPARIN SQ Q12 MARCIAL-DUR PO Q12 : TELEMETRY STATUS DCP: FROM HOME PLAN: DISCHARGE HOME
--- NOTE | 2020-02-28 12:11 | NUR ---
DISCHARGE DISCHARGE ORDER NOTED NURSING TO COORDINATE DISCHARGE
--- NOTE | 2020-02-28 12:36 | Pulmonology Progress Note ---
Subjective ROS Limited/Unobtainable: No Interval Events: doing better, less short of breath Respiratory: Reports: dyspnea on exertion Cardiovascular: Reports: no symptoms Gastrointestinal/Abdominal: Reports: no symptoms Allergies: Uncoded Allergies: Canned Food (Allergy, Unknown, 03/22/18) Nausea/Vomitting/Indigestion Objective Last 24 Hour Vital Signs Date Time Temp Pulse Resp B/P (MAP) Pulse Ox O2 Delivery O2 Flow Rate FiO2 02/28/20 12:00 97.9 101 19 151/83 (105) 94 02/28/20 09:16 154/72 02/28/20 09:16 154/72 02/28/20 09:15 105 154/72 02/28/20 09:00 Room Air 02/28/20 08:00 101 02/28/20 08:00 96.6 105 19 154/72 (99) 95 02/28/20 06:37 169/95 02/28/20 06:30 101 169/95 (119) 02/28/20 04:00 101 02/28/20 04:00 97.7 100 16 150/89 (109) 97 02/28/20 00:00 95 02/28/20 00:00 97.9 79 19 129/75 (93) 97 02/27/20 23:35 90 17 99 Nasal Cannula 3.0 32 88 18 95 02/27/20 21:06 98 152/81 02/27/20 21:00 Room Air 02/27/20 20:00 98.1 98 20 152/81 (104) 94 02/27/20 20:00 109 02/27/20 19:46 90 17 98 Nasal Cannula 3.0 32 84 18 96 02/27/20 19:45 96 Nasal Cannula 3.0 32 02/27/20 19:44 84 20 96 Nasal Cannula 3.0 32 02/27/20 17:33 99 02/27/20 16:00 97.9 101 20 121/69 (86) 94 02/27/20 13:45 107 20 100 Nasal Cannula 28 102 20 98 Intake and Output 02/27/20 02/28/20 19:00 07:00 Intake Total 710.0 ml 450 ml Balance 710.0 ml 450 ml Intake Oral 600 ml 450 ml IV Total 110.0 ml # Voids 5 3 General Appearance: WD/WN HEENT: normocephalic Respiratory: chest wall non-tender, rhonchi - left, rhonchi - right, expiratory wheezing Cardiovascular: normal peripheral pulses, normal rate Abdomen: normal bowel sounds, soft, non tender Genitourinary: normal external genitalia Neurologic: no motor/sensory deficits Lymphatic: no neck adenopathy Laboratory Tests 02/27/20 16:25: POC Whole Blood Glucose 181H 02/27/20 21:15: POC Whole Blood Glucose 147H 02/28/20 05:41: POC Whole Blood Glucose [Pending] Current Medications Medications (Trade) Dose Ordered Sig/Mecca Route PRN Reason Start Time Stop Time Status Last Admin Dose Admin Albuterol/ Ipratropium (Albuterol/ Ipratropium) 3 ml Q4H PRN HHN dyspnea 02/25/20 10:00 03/01/20 09:59 02/27/20 23:35 Amlodipine Besylate (Norvasc) 5 mg Q12HR ORAL 02/27/20 21:00 03/28/20 20:59 02/28/20 09:15 Aspirin (Ecotrin) 81 mg DAILY ORAL 02/26/20 09:00 04/11/20 08:59 02/28/20 09:16 Atorvastatin Calcium (Lipitor) 40 mg BEDTIME ORAL 02/25/20 21:00 05/25/20 20:59 02/27/20 21:07 Clopidogrel Bisulfate (Plavix) 75 mg DAILY ORAL 02/26/20 09:00 03/27/20 08:59 02/28/20 09:17 Dextrose (Dextrose 50%) 25 ml Q30M PRN IV Hypoglycemia 02/25/20 10:00 05/25/20 09:59 Dextrose (Dextrose 50%) 50 ml Q30M PRN IV Hypoglycemia 02/25/20 10:00 05/25/20 09:59 Docusate Sodium (Colace) 100 mg TID ORAL 02/27/20 09:00 03/27/20 22:14 02/28/20 09:22 Furosemide (Lasix) 40 mg DAILY ORAL 02/26/20 09:00 03/27/20 08:59 02/28/20 09:17 Heparin Sodium (Porcine) (Heparin 5000 units/ml) 5,000 units EVERY 12 HOURS SUBQ 02/25/20 21:00 04/10/20 20:59 02/28/20 09:21 Hydralazine HCl (Apresoline) 10 mg Q4H PRN IV For High Blood Pressure 02/25/20 15:42 05/25/20 15:41 02/28/20 06:37 Insulin Aspart (NovoLOG) BEFORE MEALS AND HS SUBQ 02/25/20 11:30 05/25/20 11:29 02/27/20 21:20 Isosorbide Mononitrate (Imdur) 30 mg DAILY ORAL 02/26/20 09:00 03/27/20 08:59 02/28/20 09:16 Lorazepam (Ativan 2mg/ml 1ml) 0.5 mg Q4H PRN IV For Anxiety 02/25/20 10:00 03/03/20 09:59 Losartan Potassium (Cozaar) 100 mg DAILY ORAL 02/26/20 09:00 03/27/20 08:59 02/28/20 09:16 Methylprednisolone Sodium Succinate (Solu-MEDROL) 60 mg DAILY IV 02/28/20 09:00 05/25/20 11:59 02/28/20 09:17 Montelukast Sodium (Singulair) 10 mg DAILY ORAL 02/26/20 09:00 05/26/20 08:59 02/28/20 09:17 Nitroglycerin (Ntg) 0.4 mg Q5M X 3 DOSES PRN SL Prn Chest Pain 02/25/20 10:00 03/26/20 09:59 Ondansetron HCl (Zofran) 4 mg Q6H PRN IVP Nausea & Vomiting 02/25/20 10:00 03/26/20 09:59 Phenytoin (Dilantin) 100 mg Q8HR ORAL 02/25/20 22:00 03/26/20 21:59 02/28/20 05:44 Piperacillin Sod/ Tazobactam Sod 3.375 gm/Sodium Chloride 110 ml @ 27.5 mls/hr EVERY 8 HOURS IVPB 02/25/20 22:00 03/01/20 21:59 02/28/20 05:44 Polyethylene Glycol (Miralax) 17 gm BEDTIME ORAL 02/27/20 21:00 03/28/20 20:59 02/27/20 21:06 Pregabalin (Lyrica) 50 mg DAILY ORAL 02/26/20 09:00 03/27/20 08:59 02/28/20 09:16 Promethazine HCl/ Codeine (Phenergan with Codeine) 5 ml Q6H PRN ORAL cough 02/25/20 10:00 03/26/20 09:59 02/28/20 06:42 Temazepam (Restoril) 15 mg HSPRN PRN ORAL Insomnia 02/25/20 10:00 03/03/20 09:59 Theophylline (Fabrice-Dur) 100 mg EVERY 12 HOURS ORAL 02/25/20 21:00 05/25/20 20:59 02/28/20 09:16 Assessment/Plan Problems: (1) Acute asthma exacerbation (2) Seizure disorder (3) CAD (coronary artery disease) (4) HTN (hypertension) (5) GERD (gastroesophageal reflux disease) (6) Chronic back pain Assessment/Plan wants to go home today less short of breath COVID negative times one respiratory treatment check sputum high dose steroids, change to QD antitussives titrate fio2 to sat of 92% monitor BP seizure precaution dvt prohylaxis DC papers done Luis A Juares MD Feb 28, 2020 12:36
[2020-02-28] MEDS: Albuterol/Ipratropium 3ml neb HHN PRN (14:05)
--- NOTE | 2020-02-28 14:05 | NUR ---
NURSE NOTES: Tele monitor, IV, and ID band removed. Patient discharged home with caregiver via personal car in stable condition. RN assisted pt. off the floor with pt. own front wheel walker. Education provided, discharge paperwork, home medications from pharmacy, and personal belongings with pt.
[2020-02-28] MEDS ORDERED: NS 275ml ONE (14:32)
[2020-02-28] MEDS ORDERED: Tubing IV Secondary IV ONE (14:32)
--- NOTE | 2020-02-28 18:04 | Discharge Summary ---
Discharge Summary Hospital Course Date of Admission Feb 25, 2020 at 08:54 Date of Discharge Feb 28, 2020 at 14:33 Admitting Diagnosis SOB/CHF HPI Megan Harmon is a 85 year old female who was admitted on Feb 25, 2020 at 08: 54 for Shortness Of Breath,Congestive Heart Failre Hospital Course discharge planning dictate Last 24 Hour Vital Signs Date Time Temp Pulse Resp B/P (MAP) Pulse Ox O2 Delivery O2 Flow Rate FiO2 02/28/20 13:30 88 20 96 Nasal Cannula 3.0 32 92 20 94 02/28/20 12:00 97.9 101 19 151/83 (105) 94 02/28/20 12:00 102 02/28/20 09:16 154/72 02/28/20 09:16 154/72 02/28/20 09:15 105 154/72 02/28/20 09:00 Room Air 02/28/20 08:00 101 02/28/20 08:00 96.6 105 19 154/72 (99) 95 02/28/20 06:37 169/95 02/28/20 06:30 101 169/95 (119) 02/28/20 04:00 101 02/28/20 04:00 97.7 100 16 150/89 (109) 97 02/28/20 00:00 95 02/28/20 00:00 97.9 79 19 129/75 (93) 97 02/27/20 23:35 90 17 99 Nasal Cannula 3.0 32 88 18 95 02/27/20 21:06 98 152/81 02/27/20 21:00 Room Air 02/27/20 20:00 98.1 98 20 152/81 (104) 94 02/27/20 20:00 109 02/27/20 19:46 90 17 98 Nasal Cannula 3.0 32 84 18 96 02/27/20 19:45 96 Nasal Cannula 3.0 32 02/27/20 19:44 84 20 96 Nasal Cannula 3.0 32 Physical Exam General: No acute distress, awake and alert HEENT: NCAT, sclera anicteric, PERRL, EOMI. Neck: Supple, no significant jugular venous distention, Lungs: fair inspiratory effort, no Wheeze or Rales. Heart: Regular rate and rhythm, normal S1/S2, no murmur. Abdomen: soft, nontender, nondistended. Normoactive bowel sound, obesity. / Rectal: Refused and deferred. Extremities: No Cyanosis , clubbing or edema. Neuro: A&O x 3, Able to move all extremities Skin: warm, no rashes or lesions Psych: Normal mood and affect Discharge Discharge Vital Signs Last Vital Signs Date Time Temp Pulse Resp B/P (MAP) Pulse Ox O2 Delivery O2 Flow Rate FiO2 02/28/20 13:30 88 20 96 Nasal Cannula 3.0 32 92 20 94 02/28/20 12:00 97.9 151/83 (105) Discharge Disposition Patient was discharged to home. Shlomo Garcia MD Feb 28, 2020 18:03
--- NOTE | 2020-02-29 00:44 | Discharge Summary ---
DATE OF ADMISSION: 02/25/2020 DATE OF DISCHARGE: 02/28/2020 HOSPITAL COURSE: This is a 85-year-old female with past medical history significant for asthma, hemorrhagic CVA, hypertension, dyslipidemia, GERD, seizure disorder, coronary artery disease status post stent placement in November 2017, who presented to the hospital complaining of shortness of breath. Shortly after initial evaluation, the patient was admitted to the hospital due to the acute asthma exacerbation. Throughout the hospital course, the patient was consulted with Dr. Juares, Pulmonary Critical Care. The patient's status gradually improved and subsequently was discharged home today to be followed as outpatient in my office as well as Dr. Juares within 1 to 2 weeks. FINAL DIAGNOSES: 1. Acute asthma exacerbation. 2. Seizure disorder. 3. Coronary artery disease. 4. Hypertension. 5. GERD. 6. Chronic back pain. MEDICATIONS ON DISCHARGE: Continue discharge medication list. ACTIVITY: As tolerated. DIET: Cardiac diet. The patient was advised to follow up in my office within one week. Shlomo Garcia M.D. DR: Sherrell JOB#: [id number] CC:
== END 2020-02-28 14:33 | disposition home or self-care (01) | DRG 202 ==
LOC: EMR 08:19 → 2E 08:54 → EDBEDREQ 09:29
DX: J45.901 Unspecified asthma with (acute) exacerbation (principal); S22.41XA Multiple fractures of ribs, right side, initial encounter for closed fracture; X58.XXXA Exposure to other specified factors, initial encounter; K21.9 Gastro-esophageal reflux disease without esophagitis; I10 Essential (primary) hypertension; G40.909 Epilepsy, unspecified, not intractable, without status epilepticus; I25.10 Atherosclerotic heart disease of native coronary artery without angina pectoris; E78.5 Hyperlipidemia, unspecified; Z95.5 Presence of coronary angioplasty implant and graft; G89.29 Other chronic pain; M54.9 Dorsalgia, unspecified; Z86.73 Personal history of transient ischemic attack (TIA), and cerebral infarction without residual deficits; B02.9 Zoster without complications
CPT/HCPCS: 36415; 71045; 80053; 81003; 82962; 83605; 83880; 84484; 85025; 87040; 93005; 94640; 94664; 96365; 96368; 96375; 99285; J1815; J7620; U0002

== ENCOUNTER 2020-05-18 01:08 | Emergency (ER) | payer MEDICARE, MEDICAID ==
[~2020-05-18] VITALS: Ht 162.6 cm; Wt 86.2 kg
[~2020-05-18 01:08] MED LIST changes: +SYMBICORT 16010.2 G1 IH; +XANAX0.25 MG ORAL
[2020-05-18 01:16] VITALS: BP 121/70
--- NOTE | 2020-05-18 01:16 | NUR ---
ED Nurse Note: Pt tamiko RA 27 from home CO SOB that started this evening. Pt ambulatory at home and states she usually uses oxygen at home. Pt HR slightly elevated, aao x 4, skin intact. Pt denies n/v/d/fever and pain. ERMD at bedside. Awaiting further orders.
--- NOTE | 2020-05-18 01:25 | NUR ---
ED Nurse Note: all blood work obtained and sent to lab. Pt states she does not want to provide a urine sample at this time. Will continue to monitor.
--- NOTE | 2020-05-18 01:42 | Emergency Room Report ---
History of Present Illness General Chief Complaint: Dyspnea/Respdistress Present Illness HPI 85-year-old female recently discharged from the hospital 2 days ago for shortness of breath, COPD exacerbation in the setting of COVID-19 infection, here with generalized fatigue and weakness. Patient says that when she left the hospital 2 days ago she was feeling well. However yesterday she began to feel extremely fatigued and it has worsened today. Says that she has been sleeping all day. Denies fevers, chills, chest pain, palpitations, shortness of breath, back pain, abdominal pain, nausea, vomiting, diarrhea, dysuria. Allergies: Uncoded Allergies: all kinds of canned food (Allergy, Intermediate, 04/03/20) Nausea/Vomitting/Indigestion COVID-19 Screening Contact w/high risk pt: No Recent Travel to affected area: No Experienced COVID-19 symptoms?: Yes COVID-19 symptoms experienced: Shortness of Breath, Cough COVID-19 Testing performed PUBLIC HEALTH TECHNOLOGIST: No Nursing Documentation-PMH Hx Cardiac Problems: No Hx Hypertension: No Hx Pacemaker: No Hx Asthma: Yes Hx COPD: No Hx Diabetes: Yes Hx Cancer: No Hx Gastrointestinal Problems: No Hx Dialysis: No Hx Neurological Problems: No Hx Cerebrovascular Accident: Yes Hx Transient Ischemic Attacks: Yes Hx Seizures: No Hx Epilepsy: Yes Review of Systems All Other Systems: negative except mentioned in HPI Physical Exam Vital Signs Date Time Temp Pulse Resp B/P (MAP) Pulse Ox O2 Delivery O2 Flow Rate FiO2 05/18/20 01:06 98.4 108 22 121/70 (87) 97 Nasal Cannula 4.0 Sp02 EP Interpretation: reviewed, normal General Appearance: no apparent distress, alert, GCS 15, non-toxic Head: normocephalic, atraumatic Eyes: bilateral eye normal inspection, bilateral eye PERRL ENT: hearing grossly normal, normal pharynx, no angioedema, normal voice Neck: full range of motion, supple/symm/no masses Respiratory: chest non-tender, lungs clear, normal breath sounds, speaking full sentences, other - Breathing comfortably on normal home oxygen requirement of 2 L nasal cannula Cardiovascular #1: regular rate, rhythm, no edema Cardiovascular #2: 2+ carotid (R), 2+ carotid (L), 2+ radial (R), 2+ radial (L) , 2+ dorsalis pedis (R), 2+ dorsalis pedis (L) Gastrointestinal: normal bowel sounds, non tender, soft, non-distended, no guarding, no rebound Rectal: deferred Genitourinary: normal inspection, no CVA tenderness Musculoskeletal: back normal, normal range of motion, calf tenderness, gait/ station normal, non-tender Neurologic: alert, motor strength/tone normal, oriented x3, sensory intact, responsive, speech normal Psychiatric: judgement/insight normal, memory normal, mood/affect normal, no suicidal/homicidal ideation Lymphatic: no adenopathy Medical Decision Making Diagnostic Impression: Primary Impression: Fatigue Additional Impression: 2019 novel coronavirus disease (COVID-19) ER Course EKG: Rate 105 bpm. Sinus tachycardia. Normal axis. No ectopy. No obvious ST or T wave abnormalities CXR: IMPRESSION: 1. Aeration is slightly improved since the earlier study. 2. Extensive diffuse airspace disease most notably in the left mid lower lung zones most suggestive of pneumonia, not significantly changed. 3. Osteopenia. Laboratory Tests Test 05/18/20 01:25 05/18/20 02:52 White Blood Count 9.4 K/UL (4.8-10.8) Red Blood Count 4.05 M/UL (4.20-5.40) L Hemoglobin 12.0 G/DL (12.0-16.0) Hematocrit 36.1 % (37.0-47.0) L Mean Corpuscular Volume 89 FL (80-99) Mean Corpuscular Hemoglobin 29.7 PG (27.0-31.0) Mean Corpuscular Hemoglobin Concent 33.3 G/DL (32.0-36.0) Red Cell Distribution Width 15.4 % (11.6-14.8) H Platelet Count 211 K/UL (150-450) Mean Platelet Volume 7.2 FL (6.5-10.1) Neutrophils (%) (Auto) 65.2 % (45.0-75.0) Lymphocytes (%) (Auto) 19.8 % (20.0-45.0) L Monocytes (%) (Auto) 7.9 % (1.0-10.0) Eosinophils (%) (Auto) 5.1 % (0.0-3.0) H Basophils (%) (Auto) 2.0 % (0.0-2.0) Prothrombin Time 10.7 SEC (9.30-11.50) Prothrombin Time INR 1.0 (0.9-1.1) Activated Partial Thromboplast Time 26 SEC (23-33) Sodium Level 141 MMOL/L (136-145) Potassium Level 3.9 MMOL/L (3.5-5.1) Chloride Level 106 MMOL/L (98-107) Carbon Dioxide Level 29 MMOL/L (21-32) Anion Gap 6 mmol/L (5-15) Blood Urea Nitrogen 29 mg/dL (7-18) H Creatinine 0.8 MG/DL (0.55-1.30) Estimated Glomerular Filtration Rate > 60 mL/min (>60) Glucose Level 120 MG/DL (74-106) H Calcium Level 9.6 MG/DL (8.5-10.1) Total Bilirubin 0.3 MG/DL (0.2-1.0) Aspartate Amino Transferase (AST) 18 U/L (15-37) Alanine Aminotransferase (ALT) 60 U/L (12-78) Alkaline Phosphatase 102 U/L (46-116) Troponin I 0.000 ng/mL (0.000-0.056) Pro-B-Type Natriuretic Peptide 70 pg/mL (0-125) Total Protein 7.2 G/DL (6.4-8.2) Albumin 2.7 G/DL (3.4-5.0) L Globulin 4.5 g/dL Albumin/Globulin Ratio 0.6 (1.0-2.7) L Urine Color Pale yellow Urine Appearance Clear Urine pH 6 (4.5-8.0) Urine Specific [place] 1.020 (1.005-1.035) Urine Protein Negative (NEGATIVE) Urine Glucose (UA) Negative (NEGATIVE) Urine Ketones Negative (NEGATIVE) Urine Blood Negative (NEGATIVE) Urine Nitrite Negative (NEGATIVE) Urine Bilirubin Negative (NEGATIVE) Urine Urobilinogen Normal MG/DL (0.0-1.0) Urine Leukocyte Esterase 1+ (NEGATIVE) H Urine RBC 0-2 /HPF (0 - 2) Urine WBC 0-2 /HPF (0 - 2) Urine Squamous Epithelial Cells Few /LPF (NONE/OCC) Urine Bacteria None /HPF (NONE) 85-year-old female, recently discharged from the hospital after infection from COVID-19 and subsequent pneumonia, here with generalized weakness. The patient was hemodynamically stable in the emergency department. She was satting well on her normal 2 L nasal cannula which is her usual oxygen requirement that she uses at home. She had an otherwise unremarkable physical examination and was in no acute distress whatsoever. Chest x-ray showed the same airspace disease that she had 2 days ago when she had her last chest x-ray, but it was mildly improved. Patient did not have any active evidence of infection such as an elevated white blood cell count. CBC was unremarkable. CMP normal, troponin negative, BNP negative, EKG normal. Urinalysis negative. She is known COVID positive. Generalized fatigue is likely related to her chronic illness and there is no indication at this time for another hospitalization given that she was just discharged from the hospital 2 days ago and work-up is completely negative. She will follow-up with her primary care doctor. Discharged in stable condition. Last Vital Signs Date Time Temp Pulse Resp B/P (MAP) Pulse Ox O2 Delivery O2 Flow Rate FiO2 05/18/20 01:06 98.4 108 22 121/70 (87) 97 Nasal Cannula 4.0 Rafa Esqueda M.D. May 18, 2020 01:42
[2020-05-18 01:43] LABS: EOSINOPHILS % (AUTO) 5.1 % (0.0-3.0); HEMATOCRIT 36.1 % (37.0-47.0); LYMPHOCYTES % (AUTO) 19.8 % (20.0-45.0); MEAN CORPUSCULAR VOLUME 89 FL (80-99); MONOCYTES % (AUTO) 7.9 % (1.0-10.0); NEUTROPHILS % (AUTO) 65.2 % (45.0-75.0); PLATELET COUNT 211 K/UL (150-450); RED BLOOD COUNT 4.05 M/UL (4.20-5.40); RED CELL DISTRIBUTION WIDTH 15.4 % (11.6-14.8); WHITE BLOOD COUNT 9.4 K/UL (4.8-10.8)
[2020-05-18 01:55] LABS: ANION GAP 6 mmol/L (5-15); BLOOD UREA NITROGEN 29 mg/dL (7-18); CALCIUM 9.6 MG/DL (8.5-10.1); CARBON DIOXIDE 29 MMOL/L (21-32); CHLORIDE 106 MMOL/L (98-107); CREATININE 0.8 MG/DL (0.55-1.30); POTASSIUM 3.9 MMOL/L (3.5-5.1); SODIUM 141 MMOL/L (136-145)
[2020-05-18 02:06] LABS: ALANINE AMINOTRANSFERASE 60 U/L (12-78); ALBUMIN 2.7 G/DL (3.4-5.0); ALBUMIN/GLOBULIN RATIO 0.6 (1.0-2.7); ALKALINE PHOSPHATASE 102 U/L (46-116); ASPARTATE AMINO TRANSFERASE 18 U/L (15-37); BILIRUBIN,TOTAL 0.3 MG/DL (0.2-1.0)
--- NOTE | 2020-05-18 02:13 | NUR ---
ED Nurse Note: xray at bedside
--- NOTE | 2020-05-18 02:56 | NUR ---
ED Nurse Note: pt ambulated to bedside commode with steady gait. pt provided urine sample. UA sent to lab.
--- NOTE | 2020-05-18 03:02 | Diagnostic Imaging Report ---
EXAM: XR Chest, 1 View CLINICAL HISTORY: SOB TECHNIQUE: Frontal view of the chest. COMPARISON: 05/13/2020. FINDINGS: Lungs: There is diffuse consolidation throughout the left mid lower lung zones, similar to the previous study. Patchy areas of consolidation throughout the right lung most notably the right midlung. Patchy consolidation left apex. Pleural space: Unremarkable. No pneumothorax. Heart: Unremarkable. No cardiomegaly. Mediastinum: Unremarkable. Bones/joints: Osteopenia. Vasculature: Atherosclerotic disease of the aortic knob. IMPRESSION: 1. Aeration is slightly improved since the earlier study. 2. Extensive diffuse airspace disease most notably in the left mid lower lung zones most suggestive of pneumonia, not significantly changed. 3. Osteopenia.
[2020-05-18 03:04] LABS: APPEARANCE,URINE CLEAR; BILIRUBIN, URINE NEGATIVE (NEGATIVE); GLUCOSE, URINE (UA) NEGATIVE (NEGATIVE); KETONES,URINE NEGATIVE (NEGATIVE); LEUKOCYTE ESTERASE ,URINE 1+ (NEGATIVE); NITRITE,URINE NEGATIVE (NEGATIVE); PH,URINE 6 (4.5-8.0); PROTEIN,URINE NEGATIVE (NEGATIVE); UROBILINOGEN,URINE NORMAL MG/DL (0.0-1.0)
[2020-05-18 03:06] LABS: COLOR,URINE PALE YELLOW
[2020-05-18 03:07] VITALS: BP 133/83
--- NOTE | 2020-05-18 03:35 | NUR ---
ED Nurse Note: pt resting in bed. VSS no ss of distress noted. will continue to monitor.
--- NOTE | 2020-05-18 05:00 | NUR ---
ED Nurse Note: Pt weened from oxygen in increments per ERMD to prepare for possible discharge. Pt SPO2 99% on 2L NC; pt 97% on RA. Pt removed from oxygen. will continue to monitor.
[2020-05-18 05:10] VITALS: BP 129/79
--- NOTE | 2020-05-18 05:10 | NUR ---
ED Nurse Note: Pt spo2 at 97% on RA. Pt denies discomfort or distress, trouble breathing. ERMD aware.
[2020-05-18 05:22] VITALS: BP 135/85
--- NOTE | 2020-05-18 05:22 | NUR ---
ER DISCHARGE NOTE: Patient is cleared to be discharged home per ERMD, pt is aox4, 97% on room air, with stable vital signs. pt was given dc instructions, pt was able to verbalize understanding, pt id band and iv site removed without complications. pt is able to ambulate with steady gait. pt took all belongings.
--- NOTE | 2020-05-20 21:47 | Cardiology Report ---
APPROVED REPORT EKG Measurement Heart [id number] <Conclusion> Sinus tachycardia Otherwise normal ECG
== END 2020-05-18 05:22 | disposition home or self-care (01) ==
LOC: EDBD 01:08 → EMR 01:56
DX: U07.1 COVID-19 (principal); R53.83 Other fatigue; E11.9 Type 2 diabetes mellitus without complications; J44.9 Chronic obstructive pulmonary disease, unspecified; G40.909 Epilepsy, unspecified, not intractable, without status epilepticus; Z86.73 Personal history of transient ischemic attack (TIA), and cerebral infarction without residual deficits; R53.1 Weakness; Z99.81 Dependence on supplemental oxygen; M85.88 Other specified disorders of bone density and structure, other site; I70.0 Atherosclerosis of aorta; R00.0 Tachycardia, unspecified
CPT/HCPCS: 36415; 71045; 80053; 81003; 83880; 84484; 85025; 85610; 85730; 93005; 99284